=== PATIENT | male | born 1955 | race Caucasian/White ===

== ENCOUNTER 2020-11-21 03:50 | Outpatient (CLI) | payer MEDICARE, OTHER, SELFPAY ==
[2020-11-21 10:42] LABS: Kit/Specimen SENT
[2020-11-21 10:45] LABS: Abs Immature Grans 0.02 10^3/uL (0.0-0.06); Absolute Basophil Count 0.03 10^3/uL (0.0-0.2); Absolute Eosinophil Count 0.13 10^3/uL (0.0-0.7); Absolute Lymphocyte Count 2.45 10^3/uL (1.2-3.4); Absolute Monocyte Count 0.94 10^3/uL (0.1-0.8); Absolute Neutrophil Count 4.93 10^3/uL (1.2-6.7); Basophils % 0.4; Eosinophils % 1.5; HCT 42.5 % (40.0-50.0); HGB 13.9 g/dL (13.5-17.5); Immature Grans % 0.2; Lymphocytes % 28.8; MCH 31.7 pg (27.0-33.0); MCHC 32.7 % (32.0-36.0); MCV 96.8 fL (80-95); MPV 9.3 fL (8.0-11.0); Monocytes % 11.1; Nucleated RBC 0 %; Platelet Count 307 10^3/uL (130-400); RBC 4.39 10^6/uL (4.36-5.78); RDW 18.8 % (11.8-14.1); RDW-SD 62.8 fL
[2020-11-21 10:58] LABS: ALT 27 U/L (16-63); AST 19 U/L (15-37); Albumin 4.1 g/dL (3.4-5.0); Alkaline Phosphatase 82 U/L (46-116); Anion Gap 6.9 mmol/L (3-11); BUN 17 mg/dL (7-18); Bilirubin, Total 0.6 mg/dL (0.2-1.0); CO2 30.1 mmol/L (21.0-32.0); CREATININE 1.3 mg/dL (0.70-1.30); Calcium 9.5 mg/dL (8.5-10.1); Chloride 106 mmol/L (98-107); Estimated GFR 55.75 (mL/min/1.73m2); Glucose 145 mg/dL (74-106); Potassium 4.5 mmol/L (3.5-5.1); Sodium 143 mmol/L (136-145); Total Protein 7.6 g/dL (6.4-8.2)
[2020-11-21 17:07] LABS: CEA 2.7 ng/mL (See Note)
== END 2020-11-21 03:51 | disposition home or self-care (01) ==
LOC: LBO 03:51
PROVIDERS: Visit Provider Internal Medicine Hematology & Oncology
DX: C18.2 Malignant neoplasm of ascending colon (principal)
CPT/HCPCS: 36415; 80053; 82378; 85025

== ENCOUNTER 2020-12-13 21:20 | Outpatient (CLI) | payer MEDICARE, OTHER, SELFPAY ==
[2020-12-13 08:31] LABS: Abs Immature Grans 0.02 10^3/uL (0.0-0.06); Absolute Basophil Count 0.04 10^3/uL (0.0-0.2); Absolute Eosinophil Count 0.19 10^3/uL (0.0-0.7); Absolute Lymphocyte Count 2.11 10^3/uL (1.2-3.4); Absolute Monocyte Count 0.82 10^3/uL (0.1-0.8); Absolute Neutrophil Count 3.38 10^3/uL (1.2-6.7); Basophils % 0.6; Eosinophils % 2.9; HCT 39.2 % (40.0-50.0); HGB 12.9 g/dL (13.5-17.5); Immature Grans % 0.3; Lymphocytes % 32.2; MCH 32.3 pg (27.0-33.0); MCHC 32.9 % (32.0-36.0); MCV 98.2 fL (80-95); MPV 9.5 fL (8.0-11.0); Monocytes % 12.5; Neutrophils % 51.5; Nucleated RBC 0 %; Platelet Count 253 10^3/uL (130-400); RBC 3.99 10^6/uL (4.36-5.78); RDW 20.6 % (11.8-14.1); RDW-SD 70.5 fL; WBC 6.56 10^3/uL (4.4-10.8)
[2020-12-13 08:46] LABS: ALT 24 U/L (16-63); AST 18 U/L (15-37); Albumin 3.7 g/dL (3.4-5.0); Alkaline Phosphatase 71 U/L (46-116); Anion Gap 7.5 mmol/L (3-11); BUN 16 mg/dL (7-18); Bilirubin, Total 0.6 mg/dL (0.2-1.0); CO2 27.5 mmol/L (21.0-32.0); CREATININE 1.4 mg/dL (0.70-1.30); Calcium 8.9 mg/dL (8.5-10.1); Chloride 106 mmol/L (98-107); Estimated GFR 51.18 (mL/min/1.73m2); Glucose 196 mg/dL (74-106); Potassium 4.4 mmol/L (3.5-5.1); Sodium 141 mmol/L (136-145); Total Protein 6.8 g/dL (6.4-8.2)
[2020-12-13 08:49] LABS: Diff Comment Diff Reviewed; Macrocytosis 1+
[2020-12-16 09:37] LABS: CEA <2.0 ng/mL (See Note)
== END 2020-12-13 21:21 | disposition home or self-care (01) ==
LOC: LBO 12-16 21:24
PROVIDERS: Visit Provider Internal Medicine Hematology & Oncology
DX: C18.2 Malignant neoplasm of ascending colon (principal)
CPT/HCPCS: 36415; 80053; 82378; 85025

== ENCOUNTER 2021-01-02 09:15 | Outpatient (CLI) | payer MEDICARE, OTHER, SELFPAY ==
[2021-01-02 11:31] LABS: Abs Immature Grans 0.03 10^3/uL (0.0-0.06); Absolute Basophil Count 0.04 10^3/uL (0.0-0.2); Absolute Eosinophil Count 0.15 10^3/uL (0.0-0.7); Absolute Monocyte Count 0.82 10^3/uL (0.1-0.8); Absolute Neutrophil Count 3.79 10^3/uL (1.2-6.7); Basophils % 0.6; Eosinophils % 2.1; HCT 39.5 % (40.0-50.0); HGB 12.9 g/dL (13.5-17.5); Immature Grans % 0.4; Lymphocytes % 31.3; MCH 32.1 pg (27.0-33.0); MCHC 32.7 % (32.0-36.0); MCV 98.3 fL (80-95); MPV 9.3 fL (8.0-11.0); Monocytes % 11.7; Neutrophils % 53.9; Nucleated RBC 0 %; Platelet Count 259 10^3/uL (130-400); RBC 4.02 10^6/uL (4.36-5.78); RDW 21.2 % (11.8-14.1); RDW-SD 72.7 fL; WBC 7.03 10^3/uL (4.4-10.8)
[2021-01-02 11:43] LABS: ALT 24 U/L (16-63); AST 18 U/L (15-37); Albumin 3.9 g/dL (3.4-5.0); Alkaline Phosphatase 81 U/L (46-116); Anion Gap 7.4 mmol/L (3-11); BUN 18 mg/dL (7-18); Bilirubin, Total 0.9 mg/dL (0.2-1.0); CO2 29.6 mmol/L (21.0-32.0); CREATININE 1.3 mg/dL (0.70-1.30); Calcium 9.1 mg/dL (8.5-10.1); Chloride 105 mmol/L (98-107); Estimated GFR 55.75 (mL/min/1.73m2); Glucose 180 mg/dL (74-106); Potassium 4.3 mmol/L (3.5-5.1); Sodium 142 mmol/L (136-145)
[2021-01-02 11:46] LABS: Anisocytosis 2+; Diff Comment Diff Reviewed; Macrocytosis 1+; Poikilocytes 1+; Polychromasia Present
[2021-01-02 17:25] LABS: CEA <2.0 ng/mL (See Note)
== END 2021-01-02 09:16 | disposition home or self-care (01) ==
LOC: LBO 09:18
PROVIDERS: Visit Provider Internal Medicine Hematology & Oncology
DX: C18.2 Malignant neoplasm of ascending colon (principal)
CPT/HCPCS: 36415; 80053; 82378; 85025

== ENCOUNTER 2021-02-14 17:20 | Outpatient (CLI) | payer MEDICARE, OTHER, SELFPAY ==
[2021-02-14 09:24] LABS: Abs Immature Grans 0.01 10^3/uL (0.0-0.06); Absolute Basophil Count 0.03 10^3/uL (0.0-0.2); Absolute Eosinophil Count 0.23 10^3/uL (0.0-0.7); Absolute Lymphocyte Count 2.12 10^3/uL (1.2-3.4); Absolute Monocyte Count 0.96 10^3/uL (0.1-0.8); Absolute Neutrophil Count 3.45 10^3/uL (1.2-6.7); Basophils % 0.4; Eosinophils % 3.4; HCT 39.7 % (40.0-50.0); HGB 12.7 g/dL (13.5-17.5); Immature Grans % 0.1; Lymphocytes % 31.2; MCH 32.3 pg (27.0-33.0); MPV 9.7 fL (8.0-11.0); Monocytes % 14.1; Neutrophils % 50.8; Nucleated RBC 0 %; Platelet Count 253 10^3/uL (130-400); RBC 3.93 10^6/uL (4.36-5.78); RDW 23.2 % (11.8-14.1); RDW-SD 82.4 fL
[2021-02-14 09:38] LABS: Anisocytosis 1+; Diff Comment Diff Reviewed
[2021-02-14 09:45] LABS: ALT 29 U/L (16-63); AST 17 U/L (15-37); Alkaline Phosphatase 86 U/L (46-116); Anion Gap 8.3 mmol/L (3-11); BUN 20 mg/dL (7-18); Bilirubin, Total 0.5 mg/dL (0.2-1.0); CO2 26.7 mmol/L (21.0-32.0); CREATININE 1.3 mg/dL (0.70-1.30); Calcium 8.9 mg/dL (8.5-10.1); Chloride 108 mmol/L (98-107); Estimated GFR 55.58 (mL/min/1.73m2); Glucose 144 mg/dL (74-106); Potassium 4.6 mmol/L (3.5-5.1); Sodium 143 mmol/L (136-145); Total Protein 7.2 g/dL (6.4-8.2)
[2021-02-14 17:56] LABS: CEA 2.2 ng/mL (See Note)
== END 2021-02-14 17:21 | disposition home or self-care (01) ==
LOC: LBO 17:21
PROVIDERS: Visit Provider Internal Medicine Hematology & Oncology
DX: C18.2 Malignant neoplasm of ascending colon (principal)
CPT/HCPCS: 36415; 80053; 82378; 85025

== ENCOUNTER 2021-03-07 13:05 | Outpatient (CLI) | payer MEDICARE, OTHER, SELFPAY ==
[2021-03-07 13:02] LABS: Kit/Specimen SENT
[2021-03-07 13:04] LABS: Abs Immature Grans 0.03 10^3/uL (0.0-0.06); Absolute Basophil Count 0.03 10^3/uL (0.0-0.2); Absolute Eosinophil Count 0.16 10^3/uL (0.0-0.7); Absolute Lymphocyte Count 2.35 10^3/uL (1.2-3.4); Absolute Monocyte Count 0.93 10^3/uL (0.1-0.8); Absolute Neutrophil Count 4.56 10^3/uL (1.2-6.7); Basophils % 0.4; HCT 38.3 % (40.0-50.0); HGB 12.3 g/dL (13.5-17.5); Immature Grans % 0.4; Lymphocytes % 29.2; MCH 32.4 pg (27.0-33.0); MCHC 32.1 % (32.0-36.0); MCV 100.8 fL (80-95); MPV 9.6 fL (8.0-11.0); Monocytes % 11.5; Neutrophils % 56.5; Nucleated RBC 0 %; Platelet Count 267 10^3/uL (130-400); RDW 23.7 % (11.8-14.1); RDW-SD 85.3 fL; WBC 8.06 10^3/uL (4.4-10.8)
[2021-03-07 13:14] LABS: Anisocytosis 2+; Diff Comment Diff Reviewed
--- OUTSIDE RECORDS SUMMARY | 2021-03-07 13:21 | XMS_ITS | Referral Summary ---
:1955 Author Organization [employer] [facility] Address [address] [place] [address] Care Team Providers Name Role Phone MCKENNA SANON Primary Care Physician Encounter 10/20/19 - 10/20/19 [facility] [address] [address] Discharge Disposition: 01 Home or Self Care Attending Physician: SOLANGE LORD Admitting Physician: SOLANGE LORD Referring Physician: SOLANGE LORD Vital Signs Most recent to oldest [Reference Range]: 1 2 Temperature Oral [35.8-37.3 degC] 36.9 degC (10/20/19 3:52 PM) Heart Rate Monitored [60-100 bpm] 93 bpm 95 bpm (10/20/19 4:45 PM) (10/20/19 4:35 PM) Respiratory Rate [12-20 br/min] 16 br/min 16 br/mi n (10/20/19 4:45 PM) (10/20/19 4:35 PM) Blood Pressure [90-140/60-90 mmHg] 116/57 mmHg 125/9 1 mmHg (10/20/19 4:45 PM) (10/20/19 4:35 PM) Allergies, Adverse Reactions, Alerts Substance Reaction Severity Status morphine Hallucinations Moderate Active Medications aspirin 81 mg oral delayed release tablet 81 mg = 1 tabs, Oral, Daily, 0 Refill(s) Start Date: 10/19/19 Status: OrderedBenicar 20 mg oral tablet 20 mg = 1 tabs, Oral, Daily, # 30 tabs, 0 Refill(s) Start Date: 10/19/19 Status: OrderedCentrum Silver oral tablet 1 tabs, Oral, Daily, # 30 tabs, 0 Refill(s) Start Date: 10/19/19 Status: Orderedcyclobenzaprine 10 mg oral tablet 10 mg = 1 tabs, Oral, TID, PRN, # 30 tabs, 0 Refill(s) Start Date: 10/19/19 Status: Orderedibuprofen 600 mg oral tablet 0 Refill(s) Start Date: 10/16/19 Status: OrderedJardiance 25 mg oral tablet mg = tabs, Oral, qAM, 0 Refill(s) Start Date: 10/19/19 Status: OrderedLipitor 40 mg oral tablet 40 mg = 1 tabs, Oral, Daily, 0 Refill(s) Start Date: 10/19/19 Status: OrderedLortab 7.5/325 oral tablet tabs, Oral, q6hr, LAST DOSE, 0 Refill(s) Start Date: 10/20/19 Status: OrderedProtonix 40 mg oral delayed release tablet 40 mg = 1 tabs, Oral, Daily, 0 Refill(s) Start Date: 10/19/19 Status: OrderedTrulicity Pen 0.75 mg/0.5 mL subcutaneous solution Subcutaneous, qWeek, 0 Refill(s) Start Date: 10/19/19 Status: Ordered Procedures Procedure Date Related Diagnosis Body Site Status Lumbar Epidural Steroid Injection1 10/20/19 Completed C5-C6 interspinalis cervicis Completed C6-C7 SURGERY Completed L2-L3 SURGERY Completed L5-S1 SURGERY Completed LEFT FOOT SURGERY Completed RIGHT KNEE SCOPED/REMOVED MENISCUS2 Completed RIGHT SHOULDER REPAIR3 Compl eted RIGHT WRIST REPAIR Completed 1auto-populated from documented surgical [id number] 2 Social History Social History Type Response Smoking Status Never (less than 100 in life time) entered on: 10/20/19 Functional Status FUNCTIONAL10/20/19 Recent Travel History ID No recent travel TB Symptom Screen ID No symptoms C. diff Symptom/History ID Neither of the above Have you been tested for COVID-19 ID No Hospital Discharge Instructions Patient [id number]/20/2020 15:43:41Caring for Your Back Throughout the Day Caring for Your Back Throughout the Day Take care of your back throughout the day. You will likely have fewer back problems if you do. Try to warm up before you move. Shift positions often. Also do your best to form healthy habits. Warm up for the day Do a few slow, catlike stretches before starting your day. This simple warmup can soften your disks,stretch your back muscles, and help prevent injuries. Shift positions often At work and at home, change positions often. This helps keep your body from getting stiff. Stand up or lean back while you sit. If you can, get up and move every 1/2 hour. Form healthy habits Here are some suggestions: ?? Keep a healthy weight. When you weigh too much, your back is under excess strain. But losing nicole few extra pounds can help a lot. ?? Try not to overeat. Learn about serving sizes. The size of a serving depends on the food and the food group. Many foods list serving sizes on the labels. ?? Handle minor aches with cold and heat. Apply cold the first 24 to 48 hours. Use heat after that. Always place a thin cloth between your skin and the source of cold or heat. ?? Take??medicines as directed. This helps keep pain under control. Always read labels, and call your??healthcare provider??or pharmacist if you have any questions. Walk each day A daily walk keeps your back and thigh muscles stretched and strong. This gives your back better support. Be sure to walk with your spine???s three curves aligned, by keeping your head, hips, and toes connected by a vertical line. ?? 4136-3263 [employer]. [address] [place] [address]. All rights reserved. This information is not intended as a substitute for professional medical care. Always follow your healthcare professional's instructions. Lumbar Epidural Injection: Recovery at HomeLumbar Epidural Injection: Recovery at Home After a lumbar epidural injection, you don???t need to stay in bed when you get home. In fact, it???s best to walk around if you feel up to it. Just be careful about being too active. Even if you feel better right away, avoid activities that may strain your back. And follow up on all treatment with your doctor. What to know about pain relief Keep in mind that some people feel more pain at first. It usually goes away within a few days. You may also have headaches or trouble sleeping, but if these symptoms are severe, you should call your doctor right away.??These should also go away within a few days. In general: ?? An injection to reduce inflammation takes a few days to work, sometimes even up to a week. There may even be more pain at first. ?? An injection to help locate the source of pain may give only brief pain relief. Later, you???ll feel the same as you did before the injection. Tips for recovery Whether you were injected for pain relief or diagnosis, these tips will help you recover: ?? Take walks when you feel up to it. ?? Rest if needed, but get up and move around after sitting for half an hour. ?? Don???t exercise vigorously. ?? Don???t drive the day of the procedure or until your doctor says it???s OK. ?? Return to work or other activities when your doctor says you???re ready. When to call your doctor Call right away if you notice any of the following symptoms: ?? Severe pain or headache ?? Loss of bladder or bowel control ?? Fever or chills ?? Redness or swelling around the injection site ?? [id number] [employer]. [address] [place] [address]. All rights reserved. This information is not intended as a substitute for professional medical care. Always follow your healthcare professional's instructions. Follow Up Care10/18/2019 15:43:41With:SOLANGE LORD Address: [address] [place] [address] Business (1) When:only if neededWith:BETTY MARINO Address:Unknown When:Unknown
--- OUTSIDE RECORDS SUMMARY | 2021-03-07 13:22 | XMS_ITS | Referral Summary ---
:1955 Author Organization [employer] Address [address] [facility] [place] [address] Care Team Providers Name Role Phone MCKENNA SANON Primary Care Physician Encounter 06/13/20 - 06/13/20 [employer] [facility] [address] [facility] [address] Discharge Disposition: H Outpt-Sent Home Attending Physician: MALENA BYNUM Admitting Physician: MALENA BYNUM Referring Physician: MALENA BYNUM Allergies, Adverse Reactions, Alerts Substance Reaction Severity [...] 0 Refill(s) Start Date: 10/19/19 Status: Ordered Results WBC Most recent to oldest [Reference Range]: 1 WBC [3.8-10.6 x10e3/mcL] 8.6 x10e3/mcL (06/13/20 4:31 PM) Hgb Most recent to oldest [Reference Range]: 1 Hgb [13.0-17.3 g/dL] 15.0 g/dL (06/13/20 4:31 PM) Hct Most recent to oldest [Reference Range]: 1 HCT [38.0-52.0 %] 47.3 % (06/13/20 4:31 PM) Platelet Count Most recent to oldest [Reference Range]: 1 Platelet [140-440 x10e3/mcL] 263 x10e3/mcL (06/13/20 4:31 PM) Sodium Lvl Most recent to oldest [Reference Range]: 1 Sodium Lvl [135-145 mmol/L] 141 mmol/L (06/13/20 4:31 PM) Potassium Lvl Most recent to oldest [Reference Range]: 1 Potassium Lvl [3.5-5.3 mmol/L] 4.9 mmol/L (06/13/20 4:31 PM) CO2 Most recent to oldest [Reference Range]: 1 CO2 [22-29 mmol/L] 29 mmol/L (06/13/20 4:31 PM) Chloride Most recent to oldest [Reference Range]: 1 Chloride [98-107 mmol/L] 102 mmol/L (06/13/20 4:31 PM) Anion Gap Most recent to oldest [Reference Range]: 1 AGAP [2-17 mmol/L] 10 mmol/L (06/13/20 4:31 PM) BUN Most recent to oldest [Reference Range]: 1 BUN [8-23 mg/dL] 21 mg/dL (06/13/20 4:31 PM) CREATININE Most recent to oldest [Reference Range]: 1 Creatinine Lvl [0.7-1.3 mg/dL] 1.3 mg/dL (06/13/20 4:31 PM) Calcium Lvl Most recent to oldest [Reference Range]: 1 Calcium Lvl [8.8-10.2 mg/dL] 10.0 mg/dL (06/13/20 4:31 PM) Albumin Lvl Most recent to oldest [Reference Range]: 1 Albumin Lvl [3.5-5.2 g/dL] 4.5 g/dL (06/13/20 4:31 PM) Total Protein Most recent to oldest [Reference Range]: 1 Protein Total [6.4-8.3 g/dL] 6.6 g/dL (06/13/20 4:31 PM) Alk Phos Most recent to oldest [Reference Range]: 1 Alk Phos [40-130 unit/L] 74 unit/L (06/13/20 4:31 PM) AST Most recent to oldest [Reference Range]: 1 AST [0-40 unit/L] 20 unit/L (06/13/20 4:31 PM) ALT Most recent to oldest [Reference Range]: 1 ALT [0-41 unit/L] 22 unit/L (06/13/20 4:31 PM) Bilirubin Total Most recent to oldest [Reference Range]: 1 Bili Total [0.00-1.20 mg/dL] 0.60 mg/dL (06/13/20 4:31 PM) PT Most recent to oldest [Reference Range]: 1 PT [11.6-14.5 seconds] 12.8 seconds (06/13/20 4:31 PM) INR Most recent to oldest [Reference Range]: 1 INR [1.5-3.5] 0.9 *LOW* (06/13/20 4:31 PM) PTT Most recent to oldest [Reference Range]: 1 PTT [23.3-34.5 seconds] 30.0 seconds (06/13/20 4:31 PM) Procedures Procedure Date Related Diagnosis Body Site [...]
--- OUTSIDE RECORDS SUMMARY | 2021-03-07 13:22 | XMS_ITS | Referral Summary ---
:1955 Author Organization [employer] Address [address] [place] [address] Care Team Providers Name Role Phone MCKENNA SANON Primary Care Physician Encounter 12/22/19 - 12/22/19 [employer] [facility] [address] [facility] [place] [address] Discharge Disposition: H Outpt-Sent Home Attending Physician: FREDI ROBERT Admitting Physician: FREDI ROBERT Referring Physician: FREDI ROBERT Allergies, Adverse Reactions, Alerts Substance Reaction Severity [...]
--- OUTSIDE RECORDS SUMMARY | 2021-03-07 13:22 | XMS_ITS | Referral Summary ---
:1955 Author Organization [facility] Address [address] [facility], [place] [address] Care Team Providers Name Role Phone MCKENNA SANON Primary Care Physician Encounter 06/24/20 - 06/24/20 [facility] [address] [facility], [place] [address] Admitting Physician: NATALIYA CALDERA Allergies, Adverse Reactions, Alerts Substance Reaction Severity [...]
--- OUTSIDE RECORDS SUMMARY | 2021-03-07 13:23 | XMS_ITS | Referral Summary ---
:1955 [facility] Address [address] [place] [address] Care Team Providers Name Role Phone JAMILA, A Primary Care Physician Unavailable Encounter 02/21/19 - 02/21/19 [facility] [address] [address] Discharge Disposition: H Outpt-Sent Home Attending Physician: MARTINEZ GU Admitting Physician: MARTINEZ GU Referring Physician: MARTINEZ GU Allergies, Adverse Reactions, Alerts No Known Allergies
--- OUTSIDE RECORDS SUMMARY | 2021-03-07 13:24 | XMS_ITS ---
:1955 Author Care Team Providers Name Role Phone NADIA COLMENARES MD Primary Care Provider [phone] MALENA MAHER MD OTHER [phone] Allergies Code Code System Name Reaction Severity Status Onset 7052 RxNorm Morphine ? ? Active ? Medications Name Status Start Date Stop Date ? ? aspirin 81 mg tablet,delayed release Active ? Not available Take 1 tablet every day by oral route. Benicar 20 mg tablet Active ? Not availab le Take 1 tablet every day by oral route. cyclobenzaprine 10 mg tablet Active ? Not available Take 1 tablet 3 times a day by oral route as needed. Jardiance 25 mg tablet Active ? Not avail able Take 1 tablet every day by oral route. Lipitor 40 mg tablet Active ? Not availab le Take 1 tablet every day by oral route. Macrobid 100 mg capsule Completed ? 06/25/19 21 Take 1 capsule every day by oral route. metformin 1,000 mg tablet Active ? Not av ailable Take 1 tablet twice a day by oral route. Protonix 40 mg tablet,delayed release Active ? Not available Take 1 tablet every day by oral route. Pyridium 100 mg tablet Completed ? 1 Take 2 tablets 3 times a day by oral route. Trulicity 0.75 mg/0.5 mL subcutaneous pen injector Active ? Not available Inject by subcutaneous route. Problems Name Status Onset Date Source ? Type 2 Diabetes Mellitus Active ? ? Dyslipidemia Active ? ? Hypertensive Disorder Active ? ? Left Bundle Branch Block Active ? ? Dyspnea on Exertion Active ? ? Notes: quit tob 20 years ago. Procedures Date Name Performed by ? ? Knee Arthroscopy/surgery Information not available Notes: 1997, 2014 ? Back Surgery Information not avai lable Notes: 2011 & 2012 ? Procedure on Shoulder Information not av ailable Notes: 06/25/2020 Electrocardiogram Main Office [address] [facility] [address] [place] [address] (Work Place) 06/25/2020 US, Echocardiogram, Transthoracic, Infor mation not available Complete, W/ Color Flow Results Lab Results Date Name Specimen Result Interpretation Description Value Range Status Address ? ? Electrocardiogram ? No observation ? ? ? Main recorded. Office: [address] , [place] Past Encounters 06/25/2020 Preoperative Cardiovascular Examination; Left Bundle Branch Block; Hypertensive Disorder; Dyslipidemia [place] MD: [address], [place] [address], Ph. Social History Tobacco Smoking Status Former Smoker (2 packs per a day) Vaccine List None recorded. Plan of Care Reminders Provider Appointments None ? ? recorded. Lab None ? ? recorded. Referral None ? ? recorded. Procedures None ? ? recorded. Surgeries None ? ? recorded. Imaging None ? ? recorded. Vitals Height Weight BMI Blood Pressure 5 ft 9 in 214 lbs 31.6 kg/m2 124/70 mm[Hg]
[2021-03-07 13:25] LABS: ALT 27 U/L (16-63); AST 17 U/L (15-37); Alkaline Phosphatase 71 U/L (46-116); Anion Gap 6.7 mmol/L (3-11); BUN 22 mg/dL (7-18); Bilirubin, Total 0.7 mg/dL (0.2-1.0); CO2 27.3 mmol/L (21.0-32.0); CREATININE 1.2 mg/dL (0.70-1.30); Chloride 106 mmol/L (98-107); Glucose 143 mg/dL (74-106); Potassium 4.1 mmol/L (3.5-5.1); Sodium 140 mmol/L (136-145); Total Protein 7.1 g/dL (6.4-8.2)
[2021-03-07 22:23] LABS: CEA 2.1 ng/mL (See Note)
== END 2021-03-07 13:06 | disposition home or self-care (01) ==
LOC: LBO 13:17
PROVIDERS: Visit Provider Internal Medicine Hematology & Oncology
DX: C18.2 Malignant neoplasm of ascending colon (principal)
CPT/HCPCS: 36415; 80053; 82378; 85025

== ENCOUNTER 2022-02-19 17:11 | Outpatient (REF) | payer MEDICARE, OTHER, SELFPAY ==
[2022-02-19 22:27] LABS: Anion Gap 8.6 mmol/L (3-11); BUN 17 mg/dL (7-18); CO2 27.4 mmol/L (21.0-32.0); CREATININE 1.4 mg/dL (0.70-1.30); Calcium 9.1 mg/dL (8.5-10.1); Calculated LDL 67 mg/dL (<100); Chloride 103 mmol/L (98-107); Cholesterol 131 mg/dL (<200); Estimated GFR 55.78 (mL/min/1.73m2); Glucose 120 mg/dL (74-106); HDL Cholesterol 45 mg/dL (40-60); Potassium 4.5 mmol/L (3.5-5.1); Sodium 139 mmol/L (136-145); Triglyceride 97 mg/dL (<150)
== END 2022-02-19 17:12 | disposition home or self-care (01) ==
LOC: NCHCN 17:11
PROVIDERS: Visit Provider Registered Nurse
DX: I10 Essential (primary) hypertension (principal); Z13.220 Encounter for screening for lipoid disorders
CPT/HCPCS: 80048; 80061

== ENCOUNTER 2024-01-11 21:56 | Outpatient (REF) | payer MEDICARE, OTHER, SELFPAY ==
--- OUTSIDE RECORDS SUMMARY | 2024-01-11 21:58 | XMS_ITS | Referral Summary ---
Author Organization [facility] Address [address] [facility], [facility] [place] [address] Care Team Providers Care Propulsion Engineer Name Role Phone NADIA COLMENARES Primary Care Physician [phone] Encounter 03/04/23 - 03/04/23 [facility] [address] [facility], [facility] [place] [address] Admitting Physician: EMMA MALAGON Allergies, Adverse Reactions, Alerts Substance Reaction Severity Status morphine Itching Hallucinations Severe Active Medications aspirin 81 mg oral delayed release tablet 81 mg = 1 tabs, Oral, qAM, 0 Refill(s) Start Date: 10/19/19 Status: Ordered aspirin 81 mg oral delayed release tablet 81 mg = 1 tabs, Oral, Daily, BLOOD CLOT PREVENTION, # 14 tabs, 0 Refill(s), Pharmacy: [facility], 1 tabs Oral Daily,x14 days,Instr:BLOOD CLOT PREVENTION, 175.3, cm, 07/21/21 9:06:00 EST, Height/Length Measured, 97.5, kg, 07/16/20 6:31... Start Date: 10/13/21 Stop Date: 10/27/21 Status: Ordered Benicar 20 mg oral tablet 20 mg = 1 tabs, Oral, qAM, 0 Refill(s) Start Date: 10/19/19 Status: Ordered Centrum Silver oral tablet 1 tabs, Oral, qAM, 0 Refill(s) Start Date: 10/19/19 Status: Ordered cyclobenzaprine 10 mg oral tablet 10 mg = 1 tabs, Oral, TID, PRN, 0 Refill(s) Start Date: 10/19/19 Status: Ordered elppa CoQ10 50 mg oral capsule 100 mg = 2 caps, Oral, qAM, 0 Refill(s) Start Date: 07/08/20 Status: Ordered esomeprazole 40 mg oral delayed release capsule 40 mg = 1 caps, Oral, BID, PRN, 0 Refill(s), indigestion Start Date: 07/16/21 Status: Ordered Jardiance 25 mg oral tablet 25 mg = 1 tabs, Oral, qAM, 0 Refill(s) Start Date: 10/19/19 Status: Ordered Lipitor 40 mg oral tablet 40 mg = 1 tabs, Oral, qAM, 0 Refill(s) Start Date: 10/19/19 Status: Ordered Lortab 7.5/325 oral tablet tabs, Oral, q6hr, LAST DOSE, 0 Refill(s) Start Date: 10/20/19 Stop Date: 07/08/20 Status: Completed metFORMIN 1,000 mg =, Oral, BID, 0 Refill(s) Start Date: 07/08/20 Status: Ordered Cheraw 325 mg-5 mg oral tablet 1 tabs, Oral, q4hr, PRN, X 7 days, # 20 tabs, 0 Refill(s), 07/28/21 11:19:00 EST, moderate pain (4-7) Start Date: 07/21/21 Stop Date: 07/28/21 Status: Completed Cheraw 325 mg-7.5 mg oral tablet 1-2 tabs, Oral, q4hr, PRN, X 5 days, # 40 tabs, 0 Refill(s), 10/18/21 11:26:00 EDT, Pharmacy: [id number] [place], 1-2 tabs Oral q4hr,x5 days,PRN:severe pain (8-10), severe pain (8-10), 175.3, cm, 07/21/21 9:06:00 EST, Height/Length Measu... Start Date: 10/13/21 Stop Date: 10/18/21 Status: Completed oxyCODONE 5 mg oral tablet 5 mg = 1 tabs, Oral, q4hr, # 15 tabs, 0 Refill(s), 07/21/20 15:17:00 EST Start Date: 07/17/20 Stop Date: 07/21/20 Status: Completed Trulicity Pen 0.75 mg/0.5 mL subcutaneous solution 1.5 mg =, Subcutaneous, qWeek, ON WEDNESDAY, 0 Refill(s) Start Date: 10/19/19 Status: Ordered Tylenol Extra Strength 500 mg oral tablet 500 mg = 1 tabs, Oral, TID, PRN, X 7 days, # 20 tabs, 0 Refill(s), 07/24/20 15:17:00 EST, for pain Start Date: 07/17/20 Stop Date: 07/24/20 Status: Completed Vitamin D3 5000 intl units oral tablet 5,000 units = tabs, Oral, Daily, # 100 tabs, 0 Refill(s) Start Date: 07/08/20 Stop Date: 10/08/21 Status: Completed Results WBC Most recent to oldest [Reference Range]: 1 WBC [3.8-10.6 x10e3/mcL] 6.6 x10e3/mcL (03/04/23 1:05 PM) Hgb Most recent to oldest [Reference Range]: 1 Hgb [13.0-17.3 g/dL] 16.3 g/dL (03/04/23 1:05 PM) Hct Most recent to oldest [Reference Range]: 1 HCT [38.0-52.0 %] 48.8 % (03/04/23 1:05 PM) Platelet Count Most recent to oldest [Reference Range]: 1 Platelet [140-440 x10e3/mcL] 299 x10e3/m cL (03/04/23 1:05 PM) Sodium Lvl Most recent to oldest [Reference Range]: 1 Sodium Lvl [135-145 mmol/L] 138 mmol/L (03/04/23 1:05 PM) Potassium Lvl Most recent to oldest [Reference Range]: 1 Potassium Lvl [3.5-5.3 mmol/L] 5.1 mmol/ L (03/04/23 1:05 PM) CO2 Most recent to oldest [Reference Range]: 1 CO2 [22-29 mmol/L] 27 mmol/L (03/04/23 1:05 PM) Chloride Most recent to oldest [Reference Range]: 1 Chloride [98-107 mmol/L] 101 mmol/L (03/04/23 1:05 PM) Anion Gap Most recent to oldest [Reference Range]: 1 AGAP [2-17 mmol/L] 10 mmol/L (03/04/23 1:05 PM) BUN Most recent to oldest [Reference Range]: 1 BUN [8-23 mg/dL] 20 mg/dL (03/04/23 1:05 PM) CREATININE Most recent to oldest [Reference Range]: 1 Creatinine Lvl [0.7-1.3 mg/dL] 1.2 mg/dL (03/04/23 1:05 PM) Calcium Lvl Most recent to oldest [Reference Range]: 1 Calcium Lvl [8.8-10.2 mg/dL] 10.4 mg/dL *HI* (03/04/23 1:05 PM) Albumin Lvl Most recent to oldest [Reference Range]: 1 Albumin Lvl [3.5-5.2 g/dL] 4.6 g/dL (03/04/23 1:05 PM) Total Protein Most recent to oldest [Reference Range]: 1 Protein Total [6.4-8.3 g/dL] 6.8 g/dL (03/04/23 1:05 PM) Alk Phos Most recent to oldest [Reference Range]: 1 Alk Phos [40-130 unit/L] 91 unit/L (03/04/23 1:05 PM) AST Most recent to oldest [Reference Range]: 1 AST [0-50 unit/L] 19 unit/L (03/04/23 1:05 PM) ALT Most recent to oldest [Reference Range]: 1 ALT [0-50 unit/L] 26 unit/L (03/04/23 1:05 PM) Hgb A1c Most recent to oldest [Reference Range]: 1 Hgb A1c [4.0-6.0 %] 6.5 % *HI* (03/04/23 1:05 PM) Bilirubin Total Most recent to oldest [Reference Range]: 1 Bili Total [0.00-1.20 mg/dL] 0.56 mg/dL (03/04/23 1:05 PM) Chol Most recent to oldest [Reference Range]: 1 Chol [100-200 mg/dL] 115 mg/dL (03/04/23 1:05 PM) HDL Most recent to oldest [Reference Range]: 1 HDL [>=40 mg/dL] 40 mg/dL (03/04/23 1:05 PM) LDL Most recent to oldest [Reference Range]: 1 LDL [0.0-100.0 mg/dL] 57.0 mg/dL (03/04/23 1:05 PM) Trig Most recent to oldest [Reference Range]: 1 Triglycerides [0-149 mg/dL] 90 mg/dL (03/04/23 1:05 PM) Immunizations Given and Recorded Vaccine Date Status Refusal Reason SARS-CoV-2 MODERNA (COVID-19) vaccine 01/16/21 Rec orded SARS-CoV-2 MODERNA (COVID-19) vaccine 09/23/20 Rec orded SARS-CoV-2 MODERNA (COVID-19) vaccine 08/13/20 Rec orded zoster vaccine, inactivated 05/16/20 Recorded influenza virus vaccine, inactivated 03/19/20 Jaime rded influenza virus vaccine, inactivated 04/28/19 Jaime rded influenza virus vaccine, inactivated 03/21/18 Jaime rded Procedures Procedure Date Related Diagnosis Body Site Status Knee Arthroscopy Operative (Left) 1 10/13/21 Completed Wrist Carpectomy (Left) 2 07/21/21 Completed Colectomy Right Laparoscopic SCIP 3 07/16/20 Completed Lumbar Epidural Steroid Injection 4 10/20/19 Completed L5-S1 SURGERY 2015 Completed C6-C7 SURGERY 2012 Completed RIGHT SHOULDER REPAIR 2011 C ompleted Lithotripsy 2009 Completed L2-L3 SURGERY 1983 Completed C5-C6 interspinalis cervicis Completed Colonoscopy Completed LEFT FOOT SURGERY Complet ed RIGHT KNEE SCOPED/REMOVED MENISCUS 6 Completed RIGHT WRIST REPAIR Comple everton 1auto-populated from documented surgical case 2auto-populated from documented surgical case 3auto-populated from documented surgical case 4auto-populated from documented surgical case 5X'S 2 6X'S3 Social History Social History Type Response Smoking Status Former smoker, quit more than 30 days ago; Stopped at age: 42; entered on: 07/16/21
--- OUTSIDE RECORDS SUMMARY | 2024-01-11 21:58 | XMS_ITS | Encounter Summary ---
Author Organization [facility] Address [facility] [place] [address] Care Team Providers Care Sports Apparel Internship Name Role Phone None Primary Care Provider Unavailabl e Encounter Details Date Type Department Care Team (Late st Contact Info) Description 11/22/2020 2:30 PM EDT TH Visit (TeleHealth) Hematology/Oncology at [address] [phone] Nik Killian MD [facility] [place] [address] Danette Oleary APRN [address] [place] [address] DR HEMATOLOGY ONCOLOGY [place], [place] [id number] Malignant neoplasm of ascending colon Social History Tobacco Use Types Packs/Day Years Used Date Smoking Tobacco: Never Smokeless Tobacco: Never Sex and Gender Information Value Date Recorded Sex Assigned at Not on file Gender Identity Not on file Sexual Orientation Not on file documented as of this encounter Progress Notes * Nik Killian MD - 11/22/2020 2:30 PM EDT Subjective: Patient ID: Martínez Toribio is 65 y.o. Problem List: 1. Colon cancer - ascending colon, pT3, pN0, M0, stage IIA A. Presented with abdominal pain Colonoscopy 04/2020 - 1.5 cm ulcerated mass in cecum. Path - Adenocarcinoma. IHC - intact staining for MMR proteins CT c/a/p 06/06/20 - Impression: 1. Nonspecific subcutaneous fat stranding seen in the anterior pelvic region with overlying skin thickening. Recommend correlation for cellulitis. 2. Nonobstructive 1.1 cm right lower pole and punctate left upper pole renal calculi 3. Coronary calcium 4. 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 5. No acute intrathoracic or intra-abdominal pathology. Laparoscopic right hemicolectomy 07/16/20 - Findings: No peritoneal spread identified, no liver metastasis seen. Tumor was found to be out to the serosa optically. Path: Histologic type: Adenocarcinoma Histologic grade: Moderately differentiated Tumor site: Right colon near the cecum Tumor configuration: Invasive Tumor dimensions: 1.2 x 1.2 cm Tumor extension: Tumor closely approximates the serosal surface of the colon Small vessel lymphovascular invasion: Present Large vessel venous invasion: Not identified Perineural invasion: Not identified Tumor ulceration: Present Macroscopic tumor perforation: Absent Tumor budding: Absent Mesorectum status: Not applicable Proximal margin status: Negative; invasive tumor 10 cm from margin Distal margin status: Negative; invasive tumor 13 cm from margin Radial margin/mesenteric margin status: Negative; invasive tumor 8.4 cm from margin Pericolorectal/mesenteric LN status: 0 of 23 lymph nodes positive for carcinoma Extramural tumor depositw: Absent Treatment effect: No prior treatment Additional findings: Tubular adenoma; Hyperplastic polyp MMR testing by immunohistochemistry: Previously performed by professional pathology services Pathologic cancer stage: PT3. pN0 Adjuvant chemotherapy with oral capecitabine started 08/31/20 Cycle 1 - 08/31/20 - 1000 mg/m2 (2000 mg) bid - poorly tolerated due to stomatitis and PPE (blistering of feet) Resumed chemotherapy on 10/14/20 - Dose reduced to 500 mg/m2 (1000 mg) bid, well tolerated Cycle 3 started 11/04/20 , dose increased to 1500 mg bid 2. DM 3. Dyslipidemia 4. LBBB 5. HTN 6. Nephrolithiasis S/p lithotripsy 7. GERD Ryan's esophagus Has annual EGD 8. Spinal stenosis 9. Shingles right face HPI Martínez Toribio is seen for evaluation and continued management of colon cancer. The history is summarized above. He lives in [facility] and but staying in [place], [place] for the summer months.He is seen for f/u and continued adjuvant therapy This is telephone encounter. He says he is not too bad. With the most recent cycle of therapy, hehad a couple of rough days with nausea, abdominal discomfort and diarrhea. These were on 11/17 and11/20. He completed the course of therapy on 11/17. He took phenergan and that helped. He did not need to take immodium. Today, he has had a normal BM. On day 10, he had a sore in his mouth and decreased the dose from 1500 bid to 1000 mg bid and the mouth sores resolved after 4 days. No redness or discomfort the the palms of his hands or soles of his feet. He is eating well and his weight is about the same. Soc Hx: , lives in [place], visiting [place] for the summer Tob - Quit in 2008; priot to that, 2 ppd for 27 years Etoh - 5 to 7 drinks per week On disability due to spinal stenosis. 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 Fam Hx: Father - Mother - Sibs - Children - 3, in good health. The oldest is 38 yo. All are planning to have colooscopies No h/o cancer in the family that he is aware of Review of Systems Constitutional: Negative for activity change, appetite change, fatigue, fever and unexpected weightchange. HENT: Negative. Respiratory: Negative. Cardiovascular: Negative. Gastrointestinal: Negative. Genitourinary: Negative. Musculoskeletal: Negative. Skin: Negative. Neurological: Negative. Hematological: Negative. Psychiatric/Behavioral: Negative. Objective: Physical Exam Vitals reviewed. Constitutional: General: He is not in acute distress. HENT: Head: Normocephalic and atraumatic. Mouth/Throat: Pharynx: Oropharynx is clear. No oropharyngeal exudate. Eyes: General: No scleral icterus. Cardiovascular: Rate and Rhythm: Normal rate and regular rhythm. Abdominal: General: There is no distension. Palpations: There is no mass. Tenderness: There is no abdominal tenderness. There is no guarding. Musculoskeletal: General: No swelling. Lymphadenopathy: Cervical: No cervical adenopathy. Upper Body: Right upper body: No supraclavicular adenopathy. Left upper body: No supraclavicular adenopathy. Skin: General: Skin is warm and dry. Findings: No rash. Neurological: General: No focal deficit present. Mental Status: He is alert. Psychiatric: Mood and Affect: Mood normal. Labs: (11/21/20): WBC/ANC - 8.09/4929, Hgb/Hct - 13.9/42.5, Plts - 307,000. BUN/Cr - 17/1.3. Glucose - 145. Lytes and LFTs o/w unremarkable. Signatera test result 10/07/20: MTM/ml: 0.00 Post-op (pre-chemo) ctc test by signatera on 08/07/20 - negative Recheck 08/22/20 - negative Recheck 10/06/20 - negative CEA: 11/21/20 2.7 10/09/20 2.6 09/11/20 2.5 08/21/20 2.2 07/29/20 1.9 Pre-op 1.8 Assessment and Plan: Martínez Toribio is 65 yo, referred for evaluation and management of colon cancer. He lives in [facility] and is visiting [place] for the summer months. He is seen for f/u and continued adjuvant therapy He was diagnosed with colon cancer at the time of colonoscopy done as part of evaluation for abdominal pain. There was a mass in the cecum, bx if which showed adenocarcinoma, MMR proficient. Staging CT c/a/p was negative for metastatic disease and the CEA was 1.8. On 07/16/20 he underwent a right hemicolectomy. The pathology report is above - moderately differentiated adenocarcinoma, pT3, LN negative (0/23), pN0. Small vessel LVI present, PNI negative. He met with Dr. Georgi Butterfield and was started on adjuvant chemotherapy with oral capecitabine at 1000 mg/m2 bid. The first cycle was poorly tolerated with severe stomatitis and hand foot syndrome. The dose was reduced by 50% and he tolerated that better. The dose was then increased to 1500 mg bidfor cycle 3 which he began on 11/04/20 and completed on 11/17/20. On day 10, he developed mouth sores and decreased the dose to 1000 mg bid with improvement in the sores after about 4 days. On days 14 and 17, he had increased problems with nausea, diarrhea and abdominal discomfort. Phenergan helped with the nausea. He is feeling well now. He is due to start the next cycle of therapy on 11/25. I will have him go ahead at a dose of 1000 mg in AM and 1500 mg in PM. If he develops recurrent problems with stomatitis,he will decrease the does back to 1000 mg bid. We will see him in three weeks. He had his are both fully vaccinated against Covid 19. I provided care to the patient today via telephone call. The total time associated with this visit was 25 minutes. documented in this encounter Plan of Treatment Not on file documented as of this encounter Visit Diagnoses Diagnosis Malignant neoplasm of ascending colon documented in this encounter Care Teams Sports Apparel Internship Relationship Specialty Start Date End Date None None PCP - General 11/08/20 documented as of this encounter
--- OUTSIDE RECORDS SUMMARY | 2024-01-11 21:58 | XMS_ITS | Referral Summary ---
Author Organization [facility] is Address [address] [place] [id number] Care Team Providers Care Bottle Packing Machine Cleaner Name Role Phone TALITA, NADIA ANDRES Primary Care Physician Encounter 11/14/19 - 01/04/20 [facility] [address] [place] [place] [id number] Discharge Disposition: H Outpt-Sent Home Attending Physician: FREDI ROBERT Admitting Physician: FREDI ROBERT Referring Physician: FREDI ROBERT Allergies, Adverse Reactions, Alerts Substance Reaction Severity Status morphine Hallucinations Moderate Active Medications aspirin 81 mg oral delayed release tablet 81 mg = 1 tabs, Oral, Daily, 0 Refill(s) Start Date: 10/19/19 Status: Ordered Benicar 20 mg oral tablet 20 mg = 1 tabs, Oral, Daily, # 30 tabs, 0 Refill(s) Start Date: 10/19/19 Status: Ordered Centrum Silver oral tablet 1 tabs, Oral, Daily, # 30 tabs, 0 Refill(s) Start Date: 10/19/19 Status: Ordered cyclobenzaprine 10 mg oral tablet 10 mg = 1 tabs, Oral, TID, PRN, # 30 tabs, 0 Refill(s) Start Date: 10/19/19 Status: Ordered ibuprofen 600 mg oral tablet 0 Refill(s) Start Date: 10/16/19 Status: Ordered Jardiance 25 mg oral tablet mg = tabs, Oral, qAM, 0 Refill(s) Start Date: 10/19/19 Status: Ordered Lipitor 40 mg oral tablet 40 mg = 1 tabs, Oral, Daily, 0 Refill(s) Start Date: 10/19/19 Status: Ordered Lortab 7.5/325 oral tablet tabs, Oral, q6hr, LAST DOSE, 0 Refill(s) Start Date: 10/20/19 Status: Ordered Protonix 40 mg oral delayed release tablet 40 mg = 1 tabs, Oral, Daily, 0 Refill(s) Start Date: 10/19/19 Status: Ordered Trulicity Pen 0.75 mg/0.5 mL subcutaneous solution Subcutaneous, qWeek, 0 Refill(s) Start Date: 10/19/19 Status: Ordered Procedures Procedure Date Related Diagnosis Body Site Status Lumbar Epidural Steroid Injection 1 10/20/19 Completed C5-C6 interspinalis cervicis Completed C6-C7 SURGERY Completed L2-L3 SURGERY Completed L5-S1 SURGERY Completed LEFT FOOT SURGERY Complet ed RIGHT KNEE SCOPED/REMOVED MENISCUS 2 Completed RIGHT SHOULDER REPAIR 3 C ompleted RIGHT WRIST REPAIR Comple everton 1auto-populated from documented surgical case [id number]'[id number] 2 Social History Social History Type Response Smoking Status Never (less than 100 in lifetime) entered on: 10/20/19
--- OUTSIDE RECORDS SUMMARY | 2024-01-11 21:58 | XMS_ITS | Encounter Summary ---
Author Organization [facility] Address [facility] [place] [address] Care Team Providers Care Outside Parts Sales Name Role Phone None Primary Care Provider Unavailabl e Encounter Details Date Type Department Care Team (Late st Contact Info) Description 12/13/2020 9:00 AM EDT Office Visit Hematology/Oncology at [address] [phone] Nik Killian MD [facility] [place] [address] Malignant neoplasm of ascending colon Social History Tobacco Use Types Packs/Day Years Used Date Smoking Tobacco: Never Smokeless Tobacco: Never Sex and Gender Information Value Date Recorded Sex Assigned at Not on file Gender Identity Not on file Sexual Orientation Not on file documented as of this encounter Last Filed Vital Signs Vital Sign Reading Time Taken Comments Blood Pressure 137/74 12/13/2020 8:43 AM EDT Pulse 76 12/13/2020 8:43 AM EDT Temperature 36.5 ??C (97.7 ??F) 12/13/2020 8:43 AM ED T Respiratory Rate 18 12/13/2020 8:43 AM EDT Oxygen Saturation 98% 12/13/2020 8:43 AM EDT Inhaled Oxygen Concentration - - Weight 95.3 kg (210 lb) 12/13/2020 8:43 AM EDT Height 174.5 cm (5' 8.7) 12/13/2020 8:43 AM EDT Body Mass Index 31.28 12/13/2020 8:43 AM EDT documented in this encounter Progress Notes * Nik Killian MD - 12/13/2020 9:00 AM EDT Subjective: Patient ID: Martínez Toribio is 65 y.o. Problem List: 1. Colon cancer - ascending colon, pT3, pN0, M0, stage IIA A. Presented with abdominal pain Colonoscopy 04/2020 - 1.5 cm ulcerated mass in cecum. Path - Adenocarcinoma. IHC - intact staining for MMR proteins B. CT c/a/p 06/06/20 - Impression: 1. Nonspecific [...] 5. No acute intrathoracic or intra-abdominal pathology. C. Laparoscopic right hemicolectomy 07/16/20 - Findings: No [...] pathology services Pathologic cancer stage: PT3. pN0 D. Adjuvant chemotherapy with oral capecitabine started 08/31/20 Cycle 1 - 08/31/20 - 1000 mg/m2 (2000 mg) bid - poorly tolerated due to stomatitis and PPE (blistering of feet) Resumed chemotherapy on 10/14/20 - Dose reduced to 500 mg/m2 (1000 mg) bid, well tolerated Cycle 3 started 11/04/20 , dose increased to 1500 mg bid Cycle 4 started 11/25/20, 1000 mg in AM and 1500 mg in PM E. Signatera testing x 4 - all negative (see below) 2. DM 3. Dyslipidemia 4. LBBB 5. HTN 6. Nephrolithiasis S/p lithotripsy 7. GERD Ryan's esophagus Has annual EGD 8. Spinal stenosis 9. Shingles right face HPI Mratínez Toribio is seen for evaluation and continued management of colon cancer. The history is summarized above. He lives in [facility] but staying in [place], [place] for the summer months. He is seen for f/u and continued adjuvant therapy He is by himself in clinic today. He says the most recent cycle of capecitabine was difficult. He started by taking 1500 mg in AM and 1000 mg in PM. He had problems with nausea during the day with this. He then changed the schedule to 1000 in AM and 1500 in PM and did better. He says he slept through the nausea. He gain had problems with hand foot syndrome. For two days after the treatment, he had increased diarrhea, 4-5 bouts per day. He has lomotil at home but didn't take it. He made sure to stay hydrated. For nausea he took zofran and phenergan. He has fatigue with phenergan and prefers the zofran. He had HFS beginning on day 9-10. He puts lotion on. No stomatitis. Soc Hx: , lives in [place], visiting [place] for the summer Tob - Quit in 2008; priot to that, 2 ppd for 27 years Etoh - 5 to 7 drinks per week On disability due to spinal stenosis. 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 Fam Hx: Father - Mother - Sibs [...] and Rhythm: Normal rate and regular rhythm. Pulmonary: Effort: No respiratory distress. Abdominal: General: There is no distension. Palpations: There is no mass. Tenderness: There is no abdominal tenderness. There is no guarding. Musculoskeletal: General: No swelling. Lymphadenopathy: Cervical: No cervical adenopathy. Upper Body: Right upper body: No supraclavicular adenopathy. Left upper body: No supraclavicular adenopathy. Skin: General: Skin is warm and dry. Findings: Erythema (soles of feet. Mottling of palms of hands.,) present. No rash. Neurological: General: No focal deficit present. Mental Status: He is alert. Psychiatric: Mood and Affect: Mood normal. Labs:: WBC/ANC - 6., Hgb/Hct - 12.9/39.2, Plts - 253,000. BUN/Cr - 16/1.4. Glucose - 196. Lytes and LFTs o/w unremarkable. Signatera test result 10/07/20: MTM/ml: 0.00 Post-op (pre-chemo) ctc test by signatera on 08/07/20 - negative Recheck 08/22/20 - negative Recheck 10/06/20 - negative Recheck 11/21/20 - negative CEA: 12/13/20 pending 11/21/20 2.7 10/09/20 2.6 09/11/20 2.5 08/21/20 2.2 07/29/20 1.9 Pre-op 1.8 Assessment and Plan: Martínez Toribio is 65 yo, referred for evaluation and management of colon cancer. He lives in [facility] and is visiting [place] for the summer months. He is seen [...] discomfort. Phenergan helped with the nausea. He began cycle 4 on 11/25/20, at 1000 mg in AM and 1500 mg in PM. He did fair with this. He had diarrhea for two days afterward, self limited and he did not take anything for it. He has nausea which he managed by schedule change and had HFS which is improving. He is going to start cycle 5 on 12/06/20 at the same dose, 1000 mg in AM and 1500 mg in PM. If he developsrecurrent problems with stomatitis, or other worsening symptoms, I asked him to hold the doses and let us know. We will see him in three weeks. He had his are both fully vaccinated against Covid 19. documented in this encounter Plan of Treatment Not on file documented as of this encounter Visit Diagnoses Diagnosis Malignant neoplasm of ascending colon documented in this encounter Care Teams Outside Parts Sales Relationship Specialty Start Date End Date None None PCP - General 11/08/20 documented as of this encounter
--- OUTSIDE RECORDS SUMMARY | 2024-01-11 21:58 | XMS_ITS | Referral Summary ---
Author Organization [facility] Address [address], [place] [address] Care Team Providers Care Extra Gang Supervisor Name Role Phone NADIA COLMENARES Primary Care Physician [phone] Encounter 07/06/23 - 07/06/23 [facility] [address] [facility] [place] [address] Admitting Physician: DMITRI CAM Allergies, Adverse Reactions, Alerts Substance Reaction Severity Status morphine Itching Hallucinations Severe Active Medications aspirin 81 mg oral delayed release tablet 81 mg = 1 tabs, Oral, Daily, BLOOD CLOT PREVENTION, # 14 tabs, 0 Refill(s), Pharmacy: [facility], 1 tabs Oral Daily,x14 days,Instr:BLOOD CLOT PREVENTION, 175.3, cm, 07/21/21 9:06:00 EST, Height/Length Measured, 97.5, kg, 07/16/20 6:31:00 EST, Weight Dosing Start Date: 10/13/21 Stop Date: 10/27/21 Status: Ordered aspirin 81 mg oral delayed [...] 0 Refill(s) Start Date: 07/08/20 Status: Ordered [place] 325 mg-5 mg oral tablet 1 tabs, Oral, q4hr, PRN, X 7 days, # 20 tabs, 0 Refill(s), 07/28/21 11:19:00 AM EST, moderate pain (4-7) Start Date: 07/21/21 Stop Date: 07/28/21 Status: Completed [place] 325 mg-7.5 mg oral tablet 1-2 tabs, Oral, q4hr, PRN, X 5 days, # 40 tabs, 0 Refill(s), 10/18/21 11:26:00 AM EDT, Pharmacy: [id number], 1-2 tabs Oral q4hr,x5 days,PRN:severe pain (8-10), severe pain (8-10), 175.3, cm, 07/21/21 9:06:00 EST, Height/Length Measured, 97.5, kg, 07/16/20 6:31:00 EST, Weight Dosing Start Date: 10/13/21 Stop Date: 10/18/21 Status: Completed oxyCODONE 5 mg oral tablet 5 mg = 1 tabs, Oral, q4hr, # 15 tabs, 0 Refill(s), 07/21/20 3:17:00 PM EST Start Date: 07/17/20 Stop Date: 07/21/20 Status: Completed Trulicity Pen 0.75 mg/0.5 mL subcutaneous solution 1.5 mg =, Subcutaneous, qWeek, ON WEDNESDAY, 0 Refill(s) Start Date: 10/19/19 Status: Ordered Tylenol Extra Strength 500 mg oral tablet 500 mg = 1 tabs, Oral, TID, PRN, X 7 days, # 20 tabs, 0 Refill(s), 07/24/20 3:17:00 PM EST, for pain Start Date: 07/17/20 Stop Date: 07/24/20 Status: Completed Vitamin D3 5000 intl units oral tablet 5,000 units = tabs, Oral, Daily, # 100 tabs, 0 Refill(s) Start Date: 07/08/20 Stop Date: 10/08/21 Status: Completed Results Sodium Lvl Most recent to oldest [Reference Range]: 1 Sodium Lvl [135-145 mmol/L] 140 mmol/L (07/06/23 11:08 AM) Potassium Lvl Most recent to oldest [Reference Range]: 1 Potassium Lvl [3.5-5.3 mmol/L] 5.5 mmol/ L *HI* (07/06/23 11:08 AM) CO2 Most recent to oldest [Reference Range]: 1 CO2 [22-29 mmol/L] 27 mmol/L (07/06/23 11:08 AM) Chloride Most recent to oldest [Reference Range]: 1 Chloride [98-107 mmol/L] 104 mmol/L (07/06/23 11:08 AM) Anion Gap Most recent to oldest [Reference Range]: 1 AGAP [2-17 mmol/L] 9 mmol/L (07/06/23 11:08 AM) BUN Most recent to oldest [Reference Range]: 1 BUN [8-23 mg/dL] 20 mg/dL (07/06/23 11:08 AM) CREATININE Most recent to oldest [Reference Range]: 1 Creatinine Lvl [0.7-1.3 mg/dL] 1.1 mg/dL (07/06/23 11:08 AM) Calcium Lvl Most recent to oldest [Reference Range]: 1 Calcium Lvl [8.8-10.2 mg/dL] 10.2 mg/dL (07/06/23 11:08 AM) Albumin Lvl Most recent to oldest [Reference Range]: 1 Albumin Lvl [3.5-5.2 g/dL] 4.4 g/dL (07/06/23 11:08 AM) Total Protein Most recent to oldest [Reference Range]: 1 Protein Total [6.4-8.3 g/dL] 6.5 g/dL (07/06/23 11:08 AM) Alk Phos Most recent to oldest [Reference Range]: 1 Alk Phos [40-130 unit/L] 78 unit/L (07/06/23 11:08 AM) AST Most recent to oldest [Reference Range]: 1 AST [0-50 unit/L] 19 unit/L (07/06/23 11:08 AM) ALT Most recent to oldest [Reference Range]: 1 ALT [0-50 unit/L] 27 unit/L (07/06/23 11:08 AM) Hgb A1c Most recent to oldest [Reference Range]: 1 Hgb A1c [4.0-6.0 %] 6.8 % 1 *HI* (07/06/23 11:08 AM) 1Interpretive Data: HEMOGLOBIN A1C INTERPRETATION: The following arbitrary ranges may be used for interpretation of the results. However, factors suchas duration of diabetes, adherence to therapy, and patient age should also be considered in assessing degree of blood glucose control. Hemoglobin A1C Avg. Blood Sugar 6% 135 mg/dL 7% 170 mg/dL 8% 205 mg/dL 9% 240 mg/dL 10% 275 mg/dL A1C Glucose Control < 6.0 % Normal 6.0 - 6.9 % Abnormal 7.0 - 7.9 % Sub-Optimal Control > 8.0 % Inadequate Control Bilirubin Total Most recent to oldest [Reference Range]: 1 Bili Total [0.00-1.20 mg/dL] 0.30 mg/dL (07/06/23 11:08 AM) Immunizations Given and Recorded Vaccine Date Status [...]
--- OUTSIDE RECORDS SUMMARY | 2024-01-11 21:58 | XMS_ITS | Clinical Summary ---
Author Organization [facility] Address [facility] [place] [address] Care Team Providers Care Card Sorter Name Role Phone None Primary Care Provider Unavailabl e Allergies Active Allergy Reactions Criticality Noted Date Comments Opioids - Morphine Analogues 021 hallucinations Medications Medication Sig Dispensed Refills Start Date End Date Status metFORMIN (GLUCOPHAGE) 1,000 mg Tablet 1,000 mg. 07/08/2020 Active aspirin EC 81 mg Tablet, Delayed Release (E.C.) Daily. 10/19/2019 Active bacillus coagulans-inulin 1 billion-250 cell-mg Capsule 1 caps, Oral, Daily, 0 Refill(s) 07/08/2020 Active CAPEcitabine (Xeloda) 500 mg tablet 07/29/2020 Active cholecalciferol, Vitamin D3, 125 mcg (5,000 unit) Tablet 5,000 units = tabs, Oral, Daily, # 100 tabs, 0 Refill(s) 07/08/2020 Active cyclobenzaprine (Flexeril) 10 mg Tablet Every 8 hours. PRN 10/19/2019 Active Trulicity 0.75 mg/0.5 mL Pen Injector 10/29/2020 Active Jardiance 25 mg Tablet 09/16/2020 Active fluorouraciL (EFUDEX) 5 % Cream 12/25/2019 Active gabapentin (Neurontin) 300 mg Capsule PRN 09/11/2020 Active Benicar 20 mg Tablet 10 mg. 08/27/2020 Acti ve tadalafiL 20 mg Tablet TAKE ONE TABLET BY MOUTH ONE TIME DAILY ONE HOUR PRIOR TO ACTIVITY 06/11/2020 Active ubiquinone, Coenzyme Q10, (Coenzyme Q10) 50 mg Capsule 100 mg. 07/08/2020 Active Social History Tobacco Use Types Packs/Day Years Used Date Smoking Tobacco: Never Smokeless Tobacco: Never Sex and Gender Information Value Date Recorded Sex Assigned at Not on file Gender Identity Not on file Sexual Orientation Not on file Last Filed Vital Signs Vital Sign Reading Time Taken Comments Blood Pressure 116/74 03/07/2021 1:32 PM EDT Pulse 87 03/07/2021 1:32 PM EDT Temperature 36.9 ??C (98.5 ??F) 03/07/2021 1:32 PM ED T Respiratory Rate 20 03/07/2021 1:32 PM EDT Oxygen Saturation 97% 03/07/2021 1:32 PM EDT Inhaled Oxygen Concentration - - Weight 96.3 kg (212 lb 6.4 oz) 03/07/2021 1:32 P M EDT Height 174.5 cm (5' 8.7) 03/07/2021 1:32 PM EDT Body Mass Index 31.64 03/07/2021 1:32 PM EDT Plan of Treatment Health Maintenance Due Date Last Done Comments CT Colonography 1957 Colonoscopy 1957 Colorectal Cancer Screening 1957 FIT DNA 1957 FIT 1957 Sigmoidoscopy (10 year) with FIT yearly 1957 Sigmoidoscopy 1957 Hepatitis C Screening 1975 Lipid Screening 1975 Tdap adult 02/05/1976 Tetanus vaccine 02/05/1976 Diabetes Screening (HgbA1C or Glucose) 1997 Zoster vaccine (1 of 2) 2007 Advance Directive 02/05/2012 Pneumoccocal Vaccine: 65+ (1 of 1 - PCV) 2022 Covid-19 Vaccine (1 - 2022-24 season) 2023 Influenza (Flu) vaccine (1 o f 1 - Influenza standard series) 01/30/2024 Care Teams Card Sorter Relationship Specialty Start Date End Date None None PCP - General 11/08/20
--- OUTSIDE RECORDS SUMMARY | 2024-01-11 21:58 | XMS_ITS | Encounter Summary ---
Author Organization [facility] [place] [address] Care Team Providers Care Personalized Living Manager Nurse Name Role Phone None Primary Care Provider Unavailabl e Encounter Details Date Type Department Care Team (Late st Contact Info) Description 01/31/2021 Notes Only Hematology/Oncology at [address] [phone] Danette Oleary APRN [address] [place] [address] DR HEMATOLOGY ONCOLOGY [place], [place] [id number] Social History Tobacco Use Types Packs/Day Years Used Date Smoking Tobacco: Never Smokeless Tobacco: Never Sex and Gender Information Value Date Recorded Sex Assigned at Not on file Gender Identity Not on file Sexual Orientation Not on file documented as of this encounter Plan of Treatment Not on file documented as of this encounter Visit Diagnoses Not on filedocumented in this encounter Care Teams Personalized Living Manager Nurse Relationship Specialty Start Date End Date None None PCP - General 11/08/20 documented as of this encounter
--- OUTSIDE RECORDS SUMMARY | 2024-01-11 21:58 | XMS_ITS | Encounter Summary ---
Author Organization [facility] Address [facility] [place] [address] Care Team Providers Care Medical Education Coordinator Name Role Phone None Primary Care Provider Renanabl e Encounter Details Date Type Department Care Team (Latest Contact Info) Description 12/13/2020 Unscheduled Encounter Hematology/Oncology at [address] [phone] [facility] DR HEMATOLOGY [place] [address] Malignant neoplasm of ascending colon Social History Tobacco Use Types Packs/Day Years Used Date Smoking Tobacco: Never Smokeless Tobacco: Never Sex and Gender Information Value Date Recorded Sex Assigned at Not on file Gender Identity Not on file Sexual Orientation Not on file documented as of this encounter Progress Notes * Mery Bliss RD - 12/13/2020 3:07 PM EDT [facility] Initial Assessment Patient Name: Martínez Toribio Diagnosis: Colon Cancer, pT3, pN0, M0, stage IIA Seen By: Mery Bliss RD Referred by: Dr. Killian Reason for assessment: Symptom management Assessment: HPI There is no problem list on file for this patient. Estimated body mass index is 31.28 kg/m?? as calculated from the following: Height as of an earlier encounter on 12/13/20: 174.5 cm (5' 8.7). Weight as of an earlier encounter on 12/13/20: 95.3 kg (210 lb). Wt Readings from Last 3 Encounters: 12/13/20 95.3 kg (210 lb) 11/06/20 91.6 kg (202 lb) Patient reports 10 pound gain in past 2 months. Medications: Metformin 1000 mg, lipitor, probiotic, Capecitabine (dose reduced), vitamin D3, flexeril, trulicity, jardiance, gabapentin prn, benicar, protonix, tadalafil, CoQ10 Adjuvant chemotherapy started 08/31/20, finished cycle 4. Labs on 11/21: Ca 9.5, BG 145H, BUN 17, Creat 1.3, Alb 4.1, TBili 0.6, Alk Phos 82, Na 143, K 4.5, AST 19, ALT 27, WBC 8.5 ,H/H 13.9/42.5, Platelet 307, ANC 4.93 Home blood glucose monitorin-150 mg/dl fasting (higher than usual per patient) Nutrition Screen 12/13/2020 Reason for assessment Symptom management Total MST Score - Functional Status 12/13/2020 Nausea Grades Grade 2: Oral intake decreased without significant weight loss, dehydration or malnutrition Diarrhea Grades Grade 1: Increase of < 4 stools/day over baseline, mild increase in ostomy output compared with baseline Patient reports increased diarrhea (4-5 times/day) for two days after treatment. He didn't use Lomotil which he had at home. He was quite nauseous when taking capecitabine for most recent cycle. He took some zofran and phenergan for this. He had mouth sores with previous cycles but not for most recent cycle. Symptoms are worse during 2 weeks of treatment and improve during 1 week off. Food History, Access and Intake 12/13/2020 Patient Reported Diet CCD Who prepares meals? Spouse Breakfast: Bowl of cereal, toast, banana Lunch: 1/2 hamburger (or pesto pasta, bread when nauseous) Dinner: [place] virgie steak and squash casserole last night Beverages: Water ONS: None Avoiding any foods: Eggs, most meat, fish and veggies when nauseous Physical Activity: Limited due to HFS Patient reports he is only able to tolerate starchy, bland foods when nauseous, as well as some fruits. He has had some vomiting with eggs. He believes that intake of starchy foods when he is nauseous is leading to some higher blood glucose levels than usual as well as recent ten pound weight gain. Nutrition Diagnosis 12/13/2020 Problems Involuntary weight gain Etiology (related to) Chemotherapy Signs and Symptoms Nausea Estimated Needs: 2382 kcals (25 kcal/kg) obese 95 grams protein (1g/kg) ~2.3 L fluid Nutrition Intervention: ? Encouraged bland, cold/room temperature foods and small frequent meals with nauseous. Encouraged protein foods that he tolerates (cottage cheese, possibly cold meats, nut butters) with starchy foods and fruits for glycemic control. Discussed timing zofran before consuming a meal. ? Reviewed nutrition therapy for diarrhea. Educational Handouts provided: nausea MNT, diarrhea MNT Monitoring and Evaluation: Will follow up with Mr. Toribio in 3 weeks to re-evaluate. I have provided him with my card and contact information should he have any questions in the meantime. Thank you for this consult. Mery Bliss RD documented in this encounter Plan of Treatment Not on file documented as of this encounter Visit Diagnoses Diagnosis Malignant neoplasm of ascending colon documented in this encounter Care Teams Medical Education Coordinator Relationship Specialty Start Date End Date None None PCP - General 11/08/20 documented as of this encounter
--- OUTSIDE RECORDS SUMMARY | 2024-01-11 21:58 | XMS_ITS | Referral Summary ---
Author Organization [facility] Address [address] [place] [phone] Care Team Providers Care Interior Systems Carpenter Name Role Phone NADIA COLMENARES Primary Care Physician Encounter 03/17/23 - 03/18/[address] [address] [place] Encounter Diagnosis Presence of right artificial knee joint(Final) - Attending Physician: Maurice Bello Admitting Physician: Maurice Bello Allergies, Adverse Reactions, Alerts Substance Reaction Severity Status morphine Itching Hallucinations Severe Active Medications aspirin 81 mg oral delayed release tablet 81 mg = 1 tabs, Oral, Daily, BLOOD CLOT PREVENTION, # 14 tabs, 0 Refill(s), Pharmacy: [facility], 1 tabs Oral Daily,x14 [...] 0 Refill(s) Start Date: 07/08/20 Status: Ordered Peerless 325 mg-5 mg oral tablet 1 tabs, Oral, q4hr, PRN, X 7 days, # 20 tabs, 0 Refill(s), 07/28/21 11:19:00 AM EST, moderate pain (4-7) Start Date: 07/21/21 Stop Date: 07/28/21 Status: Completed Peerless 325 mg-7.5 mg oral tablet 1-2 tabs, Oral, q4hr, PRN, X 5 days, # 40 tabs, 0 Refill(s), 10/18/21 11:26:00 AM EDT, Pharmacy: [id number], 1-2 tabs Oral q4hr,x5 days,PRN:severe pain (8-10), [...] 07/08/20 Stop Date: 10/08/21 Status: Completed Results Hgb Most recent to oldest [Reference Range]: 1 Hgb [13.0-17.3 g/dL] 13.9 g/dL (03/18/23 5:08 AM) Hct Most recent to oldest [Reference Range]: 1 HCT [38.0-52.0 %] 42.4 % (03/18/23 5:08 AM) Sodium Lvl Most recent to oldest [Reference Range]: 1 Sodium Lvl [135-145 mmol/L] 136 mmol/L (03/18/23 5:08 AM) Potassium Lvl Most recent to oldest [Reference Range]: 1 Potassium Lvl [3.5-5.3 mmol/L] 4.6 mmol/ L (03/18/23 5:08 AM) CO2 Most recent to oldest [Reference Range]: 1 CO2 [22-29 mmol/L] 26 mmol/L (03/18/23 5:08 AM) Chloride Most recent to oldest [Reference Range]: 1 Chloride [98-107 mmol/L] 102 mmol/L (03/18/23 5:08 AM) Anion Gap Most recent to oldest [Reference Range]: 1 AGAP [2-17 mmol/L] 9 mmol/L (03/18/23 5:08 AM) BUN Most recent to oldest [Reference Range]: 1 BUN [8-23 mg/dL] 19 mg/dL (03/18/23 5:08 AM) CREATININE Most recent to oldest [Reference Range]: 1 Creatinine Lvl [0.7-1.3 mg/dL] 1.2 mg/dL (03/18/23 5:08 AM) Calcium Lvl Most recent to oldest [Reference Range]: 1 Calcium Lvl [8.8-10.2 mg/dL] 8.9 mg/dL (03/18/23 5:08 AM) Immunizations Given and Recorded Vaccine Date [...] Steroid Injection 4 10/20/19 Completed L5-S1 SURGERY 2016 Completed C6-C7 SURGERY 2012 Completed RIGHT SHOULDER [...]
--- OUTSIDE RECORDS SUMMARY | 2024-01-11 21:58 | XMS_ITS | Encounter Summary ---
Author Organization [facility] Address [facility] [place] [address] Care Team Providers Care Electronic Security Specialist Name Role Phone None Primary Care Provider Unavailabl e Encounter Details Date Type Department Care Team (Late st Contact Info) Description 02/14/2021 10:00 AM EDT Office Visit Hematology/Oncology at [address] [phone] Nik Killian MD [facility] [place] [address] Danette Oleary APRN [address] [place] [address] DR HEMATOLOGY ONCOLOGY [place], [place] [id number] Malignant neoplasm of ascending colon Social History Tobacco Use Types Packs/Day Years Used Date Smoking Tobacco: Never Smokeless Tobacco: Never Sex and Gender Information Value Date Recorded Sex Assigned at Not on file Gender Identity Not on file Sexual Orientation Not on file documented as of this encounter Last Filed Vital Signs Vital Sign Reading Time Taken Comments Blood Pressure 118/69 02/14/2021 9:59 AM EDT Pulse 74 02/14/2021 9:59 AM EDT Temperature 36.8 ??C (98.2 ??F) 02/14/2021 9:59 AM ED T Respiratory Rate 20 02/14/2021 9:59 AM EDT Oxygen Saturation 98% 02/14/2021 9:59 AM EDT Inhaled Oxygen Concentration - - Weight 95.4 kg (210 lb 6.4 oz) 02/14/2021 9:59 A M EDT Height 174.5 cm (5' 8.7) 02/14/2021 9:59 AM EDT Body Mass Index 31.34 02/14/2021 9:59 AM EDT documented in this encounter Progress Notes * Danette Oleary, GLENN - 02/14/2021 10:00 AM EDT Subjective: Patient ID: Martínez Toribio is a 66 y.o. male. There are no problems to display for this patient. HPI Martínez Toribio is 65 yo, referred for evaluation and management of colon cancer. He lives in [facility] and is visiting [place] for the summer months. He is seen for f/u and continued adjuvant therapy ?? He was diagnosed with colon cancer at the time of colonoscopy done as part of evaluation for abdominal pain. There was a mass in the cecum, bx if which showed adenocarcinoma, MMR proficient. ?? Staging CT c/a/p was negative for metastatic disease and the CEA was 1.8. ?? On 07/16/20 he underwent a right hemicolectomy. The pathology report is above - moderately differentiated adenocarcinoma, pT3, LN negative (0/23), pN0. Small vessel LVI present, PNI negative. ?? He met with Dr. Georgi Butterfield and [...] abdominal discomfort. Phenergan helped with the nausea. ?? He began cycle 4 on 11/25/20, at 1000 mg in AM and 1500 mg in PM. ?? He did fair with this. He had [...] We will see him in three weeks. ?? He had his are both fully vaccinated against Covid 19. RVAL HPI 02/14/21 Martínez Toribio is a 65 yo male diagnosed with a cecal mass adenocarcinoma in 07/21. He had a right hemicolectomy 07/16 and lymph nodes were negative. It was recommended he take oral Capecitabine as adjuvant therapy for 8 cycles. (See history as summarized above.) has been spending time in [place] and [place] this summer. He returns to [facility] in [facility] today for follow-up since completing C7/8 Capecitabine. He is currently in his week off, and scheduled to start C8 on 02/17/21. Martínez has an unscheduled clinic visit on 01/30/21 for concerns of upper left jaw pain, right great toenail discoloration and left upper to mid abdominal pain. Today he is feeling good. The right great toe and toenail is less painful this week. However, the nail last week had a denser white spot in the center of the nail which appears larger today. He has been able to walk 3-5 miles a day this week. There is no pus or drainage noted. No other toes or nails are affected. The left upper jaw pain resolved. Martínez reports since the last visit he had a blew out a plug of orange-marcelo mucous from his nose that felt like it passed from his sinus to the back of his throat tohis nose. Since then, the jaw pain resolved. He started taking famotidine twice a day after the abdominal pain started thinking this may be a gastritis or PUD. He says it seems a little better. It is still in the left mid to left upper quadrantabdomen. It does not seem to vary with eating. He has had nausea the past 3-4 days and has been using Ondansetron. Martínez is hoping to return to [facility] in mid-February. He tells me he has a CT scheduled forMarch 19 in [place]. Martínez reports good energy and usually good appetite. He has fluctuating diarrhea with loose bowels. It occurs mostly in the second week of his cycle into the off week. He denies pain, redness, swelling or peeling on his palms or soles of feet. He has not had fever, shortness of breath or cough. We talked about trying to arrange a podiatry consult for the right great toe issue. Martínez is in agreement. His Capecitabine dose was reduced last cycledeom 1000mg am and 1500mg pm to 1000mg bid due to unclear etiology of symptoms. Allergies Allergen Reactions ??? Opioids - Morphine Analogues hallucinations Current Medications ??? metFORMIN (GLUCOPHAGE) 1,000 mg Tablet ??? blood sugar diagnostic strips Strip ??? aspirin EC 81 mg Tablet, Delayed Release (E.C.) ??? atorvastatin (Lipitor) 40 mg Tablet ??? bacillus coagulans-inulin 1 billion-250 cell-mg Capsule ??? CAPEcitabine (Xeloda) 500 mg tablet ??? cholecalciferol, Vitamin D3, 125 mcg (5,000 unit) Tablet ??? cyclobenzaprine (Flexeril) 10 mg Tablet ??? Trulicity 0.75 mg/0.5 mL Pen Injector ??? Jardiance 25 mg Tablet ??? fluorouraciL (EFUDEX) 5 % Cream ??? gabapentin (Neurontin) 300 mg Capsule ??? metFORMIN (GLUCOPHAGE) 1,000 mg Tablet ??? Benicar 20 mg Tablet ??? pantoprazole EC (Protonix) 40 mg Tablet, Delayed Release (E.C.) ??? tadalafiL 20 mg Tablet ??? ubiquinone, Coenzyme Q10, (Coenzyme Q10) 50 mg Capsule Review of Systems Constitutional: Negative for fatigue and fever. HENT: Negative for mouth sores. Respiratory: Negative for cough and shortness of breath. Cardiovascular: Negative for chest pain and palpitations. Gastrointestinal: Positive for abdominal pain. Negative for constipation and diarrhea. LUQ - better than 2 weeks ago Genitourinary: Negative. Musculoskeletal: Negative. Skin: Positive for color change. Negative for wound. Tender white spot in center for great right toe. Neurological: Negative. Psychiatric/Behavioral: Negative. Objective: Physical Exam Vitals reviewed. Constitutional: Appearance: Normal appearance. He is not ill-appearing. HENT: Mouth/Throat: Mouth: Mucous membranes are moist. Pharynx: Oropharynx is clear. No posterior oropharyngeal erythema. Comments: No sore or ulcers seen in upper left gum line or elsewhere. Eyes: Extraocular Movements: Extraocular movements intact. Abdominal: General: Bowel sounds are normal. Palpations: Abdomen is soft. Tenderness: There is abdominal tenderness. Comments: Tenderness to palpation in left mid-upper abdomen. Skin: General: Skin is warm and dry. Findings: Lesion present. Comments: Denser white spot appearing under center of right great toenail. Some erythema surrounding nail. No drainage. Neurological: Mental Status: He is alert and oriented to person, place, and time. Coordination: Coordination normal. Psychiatric: Mood and Affect: Mood normal. Thought Content: Thought content normal. BP 118/69 (Patient Position: Sitting) Pulse 74 Temp 36.8 ??C (98.2 ??F) (Temporal) Resp 20 Ht 174.5 cm (5' 8.7) Wt 95.4 kg (210 lb 6.4 oz) SpO2 98% BMI 31.34 kg/m?? LABS 02/14/21 WBC 6.80; ANC 3.45; H/H 12.7/39.7; PLT 253; BUN 20; CREAT 1.3; BILI 0.5; LFTs normal. CEA 02/14/21 - PENDING 01/02/21 - <2.O Assessment and Plan: Assessment: Martínez Toribio is a 65 yo male diagnosed with a cecal mass adenocarcinoma in 07/21. He had a right hemicolectomy 07/16 and lymph nodes were negative. It was recommended he take oral Capecitabine as adjuvant therapy for 8 cycles. (See history as summarized above.) has been spending time in [place] and [place] this summer. He comes to the [facility] clinic in [facility] todayfor routine follow-up. CBC and CMP reviewed with Martínez today and support ongoing treatment. All symptoms are showing some level of improvement. Unclear etiology of toe issue. Plan: Return to regular dose of Capecitabine for C8. 1000/1500. Continue famotidine 20 mg bid for stomach discomfort. Will help arrange podiatry consult. F/U as scheduled in 2 weeks. Call sooner or seek ER care if condition worsens. documented in this encounter Plan of Treatment Not on file documented as of this encounter Visit Diagnoses Diagnosis Malignant neoplasm of ascending colon documented in this encounter Care Teams Electronic Security Specialist Relationship Specialty Start Date End Date None None PCP - General 11/08/20 documented as of this encounter
--- OUTSIDE RECORDS SUMMARY | 2024-01-11 21:58 | XMS_ITS | Referral Summary ---
Author Organization [facility] Address [address] [place] [address] Care Team Providers Care Graphics Software Engineer Name Role Phone NADIA COLMENARES Primary Care Physician Encounter 10/03/21 - 10/03/21 [facility] [place] [address] [place] [address] Discharge Disposition: H Outpt-Sent Home Attending Physician: BREN YAÑEZ Admitting Physician: BREN YAÑEZ Referring Physician: BREN YAÑEZ Allergies, Adverse Reactions, Alerts Substance Reaction Severity [...] capsule 100 mg = 2 caps, Oral, Daily, # 60 caps, 0 Refill(s) Start Date: 07/08/20 Status: Ordered esomeprazole 40 mg oral delayed release capsule 40 mg = 1 caps, Oral, BID, 0 Refill(s) Start Date: 07/16/21 Status: Ordered Jardiance 25 [...] 0 Refill(s) Start Date: 07/08/20 Status: Ordered [place] 325 mg-5 mg oral tablet 1 tabs, Oral, q4hr, PRN, X 7 days, # 20 tabs, 0 Refill(s), 07/28/21 11:19:00 EST, moderate pain (4-7) Start Date: 07/21/21 Stop Date: 07/28/21 Status: Completed oxyCODONE 5 mg oral tablet [...] 100 tabs, 0 Refill(s) Start Date: 07/08/20 Status: Ordered Immunizations Given and Recorded Vaccine Date Status [...] Procedure Date Related Diagnosis Body Site Status Wrist Carpectomy (Left) 1 07/21/21 Completed Colectomy Right Laparoscopic SCIP 2 07/16/20 Completed Lumbar Epidural Steroid Injection 3 10/20/19 Completed L5-S1 SURGERY 2016 Completed C6-C7 SURGERY 2012 Completed RIGHT SHOULDER REPAIR 2011 C ompleted Lithotripsy 2009 Completed L2-L3 SURGERY 1983 Completed C5-C6 interspinalis cervicis Completed Colonoscopy Completed LEFT FOOT SURGERY Complet ed RIGHT KNEE SCOPED/REMOVED MENISCUS 5 Completed RIGHT WRIST REPAIR Comple everton 1auto-populated from documented surgical case 2auto-populated from documented surgical case 3auto-populated from documented surgical case 4X'S 2 5X'S3 Social History Social History Type Response Smoking Status Former smoker, quit more than 30 days ago; Stopped at age: 42; entered on: 07/16/21
--- OUTSIDE RECORDS SUMMARY | 2024-01-11 21:58 | XMS_ITS | Encounter Summary ---
[place] [address] Care Team Providers Care Intermediate Teacher Name Role Phone Unavailable Primary Care Provider Unavailabl e Encounter Details Date Type Department Care Team (Late st Contact Info) Description 10/25/2020 Abstract [place]ology [place] [phone] Shawna Fields Social History Tobacco Use Types Packs/Day Years Used Date Smoking Tobacco: Never Assessed Sex and Gender Information Value Date Recorded Sex Assigned at Not on file Gender Identity Not on file Sexual Orientation Not on file documented as of this encounter Plan of Treatment Not on file documented as of this encounter Visit Diagnoses Not on filedocumented in this encounter
--- OUTSIDE RECORDS SUMMARY | 2024-01-11 21:58 | XMS_ITS | Encounter Summary ---
Author Organization [facility] Address [facility] [place] [address] Care Team Providers Care Nurse Leader Name Role Phone None Primary Care Provider Unavailabl e Encounter Details Date Type Department Care Team (Late st Contact Info) Description 01/29/2021 Telephone Hematology Oncology at [address] [phone] Sonam Mcclain RN Social History Tobacco Use Types Packs/Day Years Used Date Smoking Tobacco: Never Smokeless Tobacco: Never Sex and Gender Information Value Date Recorded Sex Assigned at Not on file Gender Identity Not on file Sexual Orientation Not on file documented as of this encounter Miscellaneous Notes * Telephone Encounter - Sonam Mcclain RN - 01/29/2021 12:23 PM EDT Called and spoke with Martínez Catarino to let him know to come in tomorrow at 1330 and the WET WHEELER can evaluate it. He is in agreement with plan. * Telephone Encounter - Sonam Mcclain RN - 01/29/2021 11:23 AM EDT Called and spoke with Martínez Catarino who reports his Right Great toe has a dark streak with white center that he noticed 5 days ago, then 2 days ago it started feeling very sore and red at the nailbed. He is wondering if this could be from the capecitabine. He has not hit or subbed his toe on anything. Advised it would be unusual for just one nailbed to have symptoms and PCP could certainly take a look. Pt states he is up here for the summer and does not have anestablished PCP. Wondering if Dr Killian has any insight. He does not see him back in clinic until 02/14/21. Encouraged pt to find alocal PCP in the meantime. ----- Message from Sweta Felix sent at 01/29/2021 10:54 AM EDT ----- Regarding: Painful toe Martínez called with concerns over a painful discolored big toe. He says there is a growth under thenail and wants to know if it is related to his chemo. He would appreciate a call back at [phone]. Thanks Sweta documented in this encounter Plan of Treatment Not on file documented as of this encounter Visit Diagnoses Not on filedocumented in this encounter Care Teams Nurse Leader Relationship Specialty Start Date End Date None None PCP - General 11/08/20 documented as of this encounter
--- OUTSIDE RECORDS SUMMARY | 2024-01-11 21:58 | XMS_ITS | Encounter Summary ---
[place] [address] Care Team Providers Care Freight Weigher Name Role Phone Unavailable Primary Care Provider Unavailabl e Reason for Visit * Reason Comments Specialty Pharmacy Review Capecitabine Encounter Details Date Type Department Care Team (Late st Contact Info) Description 11/06/2020 Specialty [place] [phone] America Weir Social History Tobacco Use Types Packs/Day Years Used Date Smoking Tobacco: Never Smokeless Tobacco: Never Sex and Gender Information Value Date Recorded Sex Assigned at Not on file Gender Identity Not on file Sexual Orientation Not on file documented as of this encounter Progress Notes * America Weir - 11/06/2020 4:06 PM EDT The [facility] has completed a benefits investigation for Martínez Toribio to review their eligibility to fill at [facility]. Per patient's medication list they are prescribed CAPECITABINE and the medication is not able to be filled at the [facility]. documented in this encounter Plan of Treatment Not on file documented as of this encounter Visit Diagnoses Not on filedocumented in this encounter
--- OUTSIDE RECORDS SUMMARY | 2024-01-11 21:58 | XMS_ITS | Referral Summary ---
Author Organization [facility] is Address [address] [place] [address] Care Team Providers Care Chart Computer Name Role Phone NADIA COLMENARES Primary Care Physician Encounter(s) 06/18/22 - 06/18/22 Jose Alejandro Hinkle [address] [place] [address] Attending Physician: SOLANGE LOYD Admitting Physician: SOLANGE LOYD Allergies, Adverse Reactions, Alerts Substance Reaction Severity Status morphine Itching Hallucinations Severe Active Medications aspirin 81 mg oral delayed release tablet 81 mg = 1 tabs, Oral, qAM, 0 Refill(s) Start Date: 10/19/19 Status: Ordered aspirin 81 mg oral delayed release tablet 81 mg = 1 tabs, Oral, Daily, BLOOD CLOT PREVENTION, # 14 tabs, 0 Refill(s), [facility], 1 tabs Oral Daily,x14 days,Instr:BLOOD [...] 0 Refill(s) Start Date: 07/08/20 Status: Ordered De Pere 325 mg-5 mg oral tablet 1 tabs, Oral, q4hr, PRN, X 7 days, # 20 tabs, 0 Refill(s), 07/28/21 11:19:00 EST, moderate pain (4-7) Start Date: 07/21/21 Stop Date: 07/28/21 Status: Completed De Pere 325 mg-7.5 mg oral tablet 1-2 tabs, Oral, q4hr, PRN, X 5 days, # 40 tabs, 0 Refill(s), 10/18/21 11:26:00 EDT, Pharmacy: [id number] Date: 07/08/20 Stop Date: 10/08/21 Status: Completed Immunizations Given and Recorded Vaccine Date Status [...] Completed L5-S1 SURGERY 2016 Completed C6-C7 SURGERY 2013 Completed RIGHT SHOULDER REPAIR 2011 C ompleted [...]
--- OUTSIDE RECORDS SUMMARY | 2024-01-11 21:58 | XMS_ITS | Encounter Summary ---
Author Organization [facility] [place] [address] Care Team Providers Care Sporting Goods Salesperson Name Role Phone None Primary Care Provider Unavailabl e Encounter Details Date Type Department Care Team (Late st Contact Info) Description 01/30/2021 1:30 PM EDT Office Visit Hematology/Oncology at [address] [phone] Danette Oleary APRN [address] [place] [address] DR HEMATOLOGY ONCOLOGY [place], [place] [id number] Malignant neoplasm of ascending colon Social History Tobacco Use Types Packs/Day Years Used Date Smoking Tobacco: Never Smokeless Tobacco: Never Sex and Gender Information Value Date Recorded Sex Assigned at Not on file Gender Identity Not on file Sexual Orientation Not on file documented as of this encounter Last Filed Vital Signs Vital Sign Reading Time Taken Comments Blood Pressure 129/77 01/30/2021 1:52 PM EDT Pulse 87 01/30/2021 1:52 PM EDT Temperature 36.7 ??C (98.1 ??F) 01/30/2021 1:52 PM ED T Respiratory Rate 20 01/30/2021 1:52 PM EDT Oxygen Saturation 99% 01/30/2021 1:52 PM EDT Inhaled Oxygen Concentration - - Weight 94.1 kg (207 lb 6.4 oz) 01/30/2021 1:52 P M EDT Height 174.5 cm (5' 8.7) 01/30/2021 1:52 PM EDT Body Mass Index 30.89 01/30/2021 1:52 PM EDT documented in this encounter Patient Instructions * Patient Instructions* Matarazzo, Danette A, DIRECTOR OF STUDENT AID - 01/30/2021 1:30 PM EDT Here are some things we talked about today: Take just 2 Xeolda pills tonight and I will suzy with Dr. Killian in the morning about your symptoms. Take 20 mg of Pepcid twice a day. Pepcid is always known as famotidine. Soak foot in epsom salt twice a day. If the toe gets worse please call. Tylenol every 6 hours. documented in this encounter Progress Notes * Danette Oleary APRN - 01/30/2021 1:30 PM EDT Subjective: Patient ID: Martínez Toribio is a 65 y.o. male. There are no problems to display for this patient. HPI Martínez Toribio is 65 yo, referred for evaluation and management of colon cancer. He lives in [facility] [place] and is visiting [place] for the summer months. He is seen [...] fully vaccinated against Covid 19. RVAL HPI 01/30/21 Martínez Toribio is a 65 yo male diagnosed with a cecal mass adenocarcinoma in 07/21. He had a right hemicolectomy 07/16 and lymph nodes were negative. It was recommended he take oral Capecitabine as adjuvant therapy for 8 cycles. (See history as summarized above.) has been spending time in [place] and [place] this summer. He comes to [facility] today[facility] an unscheduled visit for some concerning symptoms. Martínez began C7 Capecitabine on 01/27/21 at a dose of 1000mg am and 1500mg pm. He has had dose adjustments previously due to toxicities while taking 1500mg bid. He saw his oncologist in [place], Dr. Carbajal, after C6, and has since returned to [place]. Martínez says toxicities for him seem to occur in the off-week. Today Martínez is concerned about 3 things. He has a pain/pressure under his right great toenail andhe sees a white spot in the nail center that is new. He says it seems worse with walking. He also has a new burning sensation in his jaw line on the upper right. He denies mouth sores or thrush. Third, he has a tender area in his left mid/upper-abdomen. He denies nausea or vomiting. He denies constipation or diarrhea. He says this is usually worse after eating. He has not noticed any drainage or pus near the right great toe nail. He received a COVID booster recently but I do not know the exact date. He has not been soaking his feet. He has not been having fevers or chills. He has been able to eat fairly well. He denies shortness of breath, chest pain or cough. He is not having numbness or tingling. Allergies Allergen Reactions ??? Opioids - Morphine Analogues hallucinations Current Medications ??? metFORMIN (GLUCOPHAGE) 1,000 mg Tablet ??? blood sugar diagnostic strips Strip ??? aspirin EC 81 mg Tablet, Delayed Release (E.C.) ??? atorvastatin (Lipitor) 40 mg Tablet ??? CAPEcitabine (Xeloda) 500 mg tablet ??? cholecalciferol, Vitamin D3, 125 mcg (5,000 unit) Tablet ??? Trulicity 0.75 mg/0.5 mL Pen Injector ??? Jardiance 25 mg Tablet ??? fluorouraciL (EFUDEX) 5 % Cream ??? metFORMIN (GLUCOPHAGE) 1,000 mg Tablet ??? Benicar 20 mg Tablet ??? pantoprazole EC (Protonix) 40 mg Tablet, Delayed Release (E.C.) ??? ubiquinone, Coenzyme Q10, (Coenzyme Q10) 50 mg Capsule ??? bacillus coagulans-inulin 1 billion-250 cell-mg Capsule ??? cyclobenzaprine (Flexeril) 10 mg Tablet ??? gabapentin (Neurontin) 300 mg Capsule ??? tadalafiL 20 mg Tablet Review of Systems Constitutional: Negative for fatigue and fever. HENT: Negative for mouth sores. Burning in right upper jaw. Respiratory: Negative for cough and shortness of breath. Cardiovascular: Negative for chest pain and palpitations. Gastrointestinal: Positive for abdominal pain. Negative for constipation and diarrhea. LUQ Genitourinary: Negative. Musculoskeletal: Negative. Skin: Positive for wound. Painful white spot under right great toenail. Neurological: Negative. Psychiatric/Behavioral: Negative. Objective: Physical Exam Vitals reviewed. Constitutional: Appearance: Normal appearance. He is not ill-appearing. HENT: Mouth/Throat: Mouth: Mucous membranes are moist. Pharynx: Oropharynx is clear. No posterior oropharyngeal erythema. Comments: No sore or ulcers seen in upper right gum line or elsewhere. Eyes: Extraocular Movements: [...] normal. Thought Content: Thought content normal. BP 129/77 (Patient Position: Sitting) Pulse 87 Temp 36.7 ??C (98.1 ??F) (Temporal) Resp 20 Ht 174.5 cm (5' 8.7) Wt 94.1 kg (207 lb 6.4 oz) SpO2 99% BMI 30.89 kg/m?? No labs - unscheduled visit Assessment and Plan: Assessment: Martínez Toribio is a 65 yo male diagnosed with a cecal mass adenocarcinoma in 07/21. He had a right hemicolectomy 07/16 and lymph nodes were negative. It was recommended he take oral Capecitabine as adjuvant therapy for 8 cycles. (See history as summarized above.) has been spending time in [place] and [place] this summer. He comes to the [facility] in [facility] todayas an unscheduled visit for some concerning symptoms. It is possible these symptoms are related to the Capecitabine. Martínez may be developing a mucositis, or an abscess under his toe. Abdominal tenderness may be related to a gastritis or ulcer. Plan: Discussed dose reduction of Capecitabine with Dr. Killian. For remainder of C7, he will take 1000mg bid Soak right foot iin epsom salts and elevate. Trial of famotidine 20 mg bid for stomach discomfort. F/U as scheduled in 2 weeks. Call sooner or seek ER care if condition worsens. documented in this encounter Plan of Treatment Not on file documented as of this encounter Visit Diagnoses Diagnosis Malignant neoplasm of ascending colon documented in this encounter Care Teams Sporting Goods Salesperson Relationship Specialty Start Date End Date None None PCP - General 11/08/20 documented as of this encounter
--- OUTSIDE RECORDS SUMMARY | 2024-01-11 21:58 | XMS_ITS | Referral Summary ---
Author Organization [facility] [place] Address [address] [place] [id number] Care Team Providers Care Sound Technician Name Role Phone NADIA COLMENARES Primary Care Physician Encounter 10/13/21 - 10/13/21 [facility] [address] [address] Encounter Diagnosis Complex tear of medial meniscus of left knee(Discharge Diagnosis) - 10/13/21 Discharge Disposition: H Outpt-Sent Home Attending Physician: TOM LYNNE Admitting Physician: TOM LYNNE Referring Physician: TOM LYNNE Vital Signs Most recent to oldest [Reference Range]: 1 2 Temperature Oral [35.8-37.3 degC] 36.4 d egC (10/13/21 12:29 PM) 36.8 degC (10/13/21 10:38 AM) Heart Rate Monitored [60-100 bpm] 77 bpm (10/13/21 12:59 PM) 78 bpm (10/13/21 12:49 PM) Respiratory Rate [12-20 br/min] 14 br/mi n (10/13/21 12:59 PM) 14 br/min (10/13/21 12:49 PM) Blood Pressure [90-140/60-90 mmHg] 121/7 8mmHg (10/13/21 12:59 PM) 126/81mmHg (10/13/21 12:49 PM) Allergies, Adverse Reactions, Alerts Substance Reaction Severity Status morphine Itching Hallucinations Severe Active Medications aspirin 81 mg oral delayed release tablet 81 mg = 1 tabs, Oral, qAM, 0 Refill(s) Start Date: 10/19/19 Status: Ordered aspirin 81 mg oral delayed release tablet 81 mg = 1 tabs, Oral, Daily, BLOOD CLOT PREVENTION, # 14 tabs, 0 Refill(s), Pharmacy: [facility], 1 tabs Oral Daily,x14 [...] 0 Refill(s) Start Date: 07/08/20 Status: Ordered Miami 325 mg-5 mg oral tablet 1 tabs, Oral, q4hr, PRN, X 7 days, # 20 tabs, 0 Refill(s), 07/28/21 11:19:00 EST, moderate pain (4-7) Start Date: 07/21/21 Stop Date: 07/28/21 Status: Completed Miami 325 mg-7.5 mg oral tablet 1-2 tabs, Oral, q4hr, PRN, X 5 days, # 40 tabs, 0 Refill(s), 10/18/21 11:26:00 EDT, Pharmacy: [id number] [place], 1-2 tabs Oral q4hr,x5 days,PRN:severe pain (8-10), severe pain (8-10), 175.3, cm, 07/21/21 9:06:00 EST, Height/Length Measu... Start Date: 10/13/21 Stop Date: 10/18/21 Status: Ordered oxyCODONE 5 mg oral tablet 5 mg [...] inactivated 05/16/20 Recorded influenza virus vaccine, inactivated 10/20/20 Jaime rded influenza virus vaccine, inactivated 04/28/19 [...] Stopped at age: 42; entered on: 07/16/21 Functional Status FUNCTIONAL 10/08/21 Recent Travel History ID No recent trave l Close Contact with COVID-19 ID No TB Symptom Screen ID No symptoms Last 14 days COVID-19 ID No Last 90 days COVID-19 ID No COGNITIVE 10/13/21 Orientation Assessment Oriented x 4 Hospital Discharge Instructions Patient Education 10/08/2021 13:03:45 Knee arthroscopy home instructions (CUSTOM) HOME CARE INSTRUCTIONS KNEE ARTHROSCOPY Yola Lynne Jr., MD 1. Day of Surgery ??? Instructions Immediate Post-op: ?? DIET: To minimize nausea if you had general anesthesia start with clear liquids (Coke, Pepsi, 7-Up, Gingerale, coffee, tea, water, or apple juice). If tolerated, advance to soup, crackers, toast and Jell-O. When these are tolerated, advance to a regular diet. Make sure to drink plenty of liquids. ?? Ice pack to knee every one to two hours while awake for thirty minutes to control pain and swelling. ?? Pain medication as needed every 4-6 hours. It is helpful to take pain medication approximately one-half hour prior to exercise session. ?? Make sure that you have a Physical Therapy post-operative appointment preferably 5-7 days after surgery. ?? Use crutches as directed by therapist prior to leaving hospital. 2. First Post ??? Operative Day: ?? Continue ice pack every one to two hours while awake, or at least thirty minutes prior to and after exercise session. ?? Pain medication as needed. ?? Exercise should be done to the best of your ability. Try to accomplish a little more each time you do them. ?? You may remove your bandage from the surgical area and shower this evening. Apply gauze to thesewounds. DO NOT remove steri-strips from incision sites, these keep incisions closed and the stitches in place. ?? You will need to keep your incision dry when taking a shower. Do this for about 14 days from surgery or until op site is completely scabbed over and sutures are removed. You need to cover your incisions with a waterproof bandage (these can be purchased at your local pharmacy) when taking a shower. * Make sure you place a 2 x 2 gauze on the incision before placing the waterproof bandage so the bandage is not directly on the incision and does not pull off the steri-strips when removing the bandage. ?? Keep the incisions covered with a band-aid after the shower. 3. Second Post ??? Operative Day Until Return Visit: ?? Continue ice pack as needed. ?? Continue daily shower/band-aid routine. ?? Continue exercises. Call your physical therapist if you have any questions about the appropriateexercises to be performing. ?? Unless otherwise noted, you can bear as much weight on the affected leg as you can tolerate. Most patients use crutches 3 to 5 days. The amount of pain you experience should be your guide for discontinuing crutch use. ?? If there is no brace on your leg, you may bend the knee as tolerated. ?? If you have a brace or a splint on your leg, this must be worn for all walking activities. The brace may be removed for showering. It may also be removed for short periods of time while relaxing (while watching television, reading, etc.) as long as the leg is well supported. For Return Appointments: 4. The day after surgery, call for your post-operative appointment with Dr. Lynne to be scheduled 10 to14 days following your surgery. 5. If you have any problems or questions please call our office at and ask for Dolores during office hours 8:00 ??? 5:00. If you have a problem after hours, call and the answering service will contact Dr. Lynne or the county coroner physician. PROBLEMS TO REPORT ?? Fever greater than 100.5??F or 38??C ?? Incision very red, swollen, shows draining pus, red streaks, or feels hot ?? Inability to urinate 8 hours after surgery (a rare effect of the anesthetic and medications given to you). 6. PAIN MEDICATIONS: This will be prescribed for you post-operatively. Any pain medication can produce nausea and vomiting, especially when taken on an empty stomach. Additionally, the anesthetic from the time of surgery can do the same. It is best to use the pain medication with some food in the stomach for the first few days. In general, ice and elevation are much more useful than pain medication for surgical pain. If you are having too much pain for your comfort the first thing to try is more elevation and more ice. Try to minimize the amount of pain medication you actually use. Any activity that requires precise thinking and accuracy must be avoided for the first twelve hours after surgery and while taking pain medication, which includes operating machinery and/or driving a vehicle. DO NOT take Tylenol with Percocet and the Vicodin. Colace 100mg (over the counter) 1 tablet every evening as needed for constipation tablets every hours as needed for pain tablets every hours as needed for pain tablets every hours as needed for pain ?? DO NOT DRIVE OR USE HEAVY MACHINERY WHILE TAKING THIS MEDICATION. ?? DO NOT DRINK ALCOHOL WHILE TAKING THIS MEDICATION. ?? DO NOT TAKE ADDITIONAL TYLENOL WITH THIS MEDICATION. ?? YOU MAY ALSO TAKE IBUPROFEN 600-800MG EVERY 4-6 HOURS ALONG WITH THE PAIN MEDICATION. YOU SHOULDALTERNATE THE PAIN MEDICATION AND THE IBUPROFEN SO THAT YOU ARE GETTING SOMETHING EVERY 2-3 HOURS BUT SPACING EACH OF THE MEDICATION OUT EVERY 4-6 HOURS 7. ACTIVITY: ?? Elevate the affected knee with two or three pillows under the ankle as needed. Discontinue elevation when comfortable. ?? Ice should be used for thirty minutes every 1-2 hours to control pain and swelling. Apply additionally as needed, especially after exercises, for the first two to three weeks. Longer duration of cold therapy is very helpful the first few days. ?? Use crutches for walking until you can walk without a limp. There are no restrictions on ambulation. ?? Full weight bearing is to begin immediately as tolerated after surgery. Knee arthroscopy rehab protocol (CUSTOM) Rehabilitation Following Knee Arthroscopy PHASE I: MAXIMUM PROTECTION PHASE (Weeks 1-4) Goals: Reduce inflammation/effusion Allow early healing Full passive knee extension Gradually increase knee flexion Restore quadriceps voluntary activation Stage 1: Immediate post-surgery days 1 through 10 ?? Ice, compression, elevation ?? Compression wrap dressing ?? Crutches as needed ?? ROM (passive 0-90) to tolerance ?? Patellar mobilizations ?? Stretch hamstrings, calf, hip flexors ?? Strengthening exercises (neuro-muscular electrical stimulation to quads): ?? Quad sets ?? SLR flexion ?? Hip Abd/Adduction ?? Knee extension 90-40 degrees ?? Mini Squats 0-50/60 degrees ?? Avoid active resisted knee flexion Stage 2: Weeks 2 through 4 ?? Discontinue crutches when able ?? Continue use of ice and compression ?? Continue compression wrap ?? ROM guidelines ?? Gradually increase PROM as tolerated ?? Week 2: 0-125 degrees ?? Week 3: 0-135 degrees ?? Week 4: 0-145 degrees *Discontinue crutches when safe and proper gait (usually during week 1-2) ?? Continue PROM exercises and stretching ?? Strengthening exercises (see attached sheet Phase I exercises) ?? SLR (all 4 planes) ?? Knee extension 90-0 degrees ?? CKC mini-squats 0-45 degrees ?? CKC wall squats 0-60 degrees ?? Initiate CKC exercises ?? Lateral and front step overs ?? Lateral lunges ?? Step downs (lateral) ?? Step downs (front) ?? Bicycle ?? Pool exercises (once incision is closed) PHASE II: INTEMEDIATE PHASE (Weeks 4-6) Goals: Full PROM Minimal to no swelling/inflammation Restore quadriceps strength Gradually increase functional activities ?? Continue use of ice and compression as needed ?? Continue ROM and stretching to maintain 0-135 degrees ?? Progress strengthening exercises ?? Leg press 70-0 degrees ?? Knee extension 90-40 degrees ?? Hip Abd/Adduction ?? Wall squats 0-70 degrees ?? Vertical squats 0-60 degrees ?? Lateral step-ups ?? Front and lateral lunges ?? Hamstring curls ?? Balance/proprioception training ?? Biodex stability ?? Squats rocker board ?? Cup walking (step overs) ?? Standing on foam single leg ?? Bicycle (if ROM permits) ?? Pool program (may begin running in pool) ?? Elliptical * May be able to begin running if cleared by physician or medical team PHASE III: ADVANCED ACTIVITY PHASE (Weeks 6-8) Goals: Improve strength and endurance Maintain full ROM Gradually increase applied stress Week 6 ?? Continue all strengthening exercises listed above (Phase II and III activities) see attached sheet ?? May initiate stair stepper if appropriate ?? Treadmill walk/run program Week 7 ?? Continue strengthening and stretching program PHASE IV: RETURN TO ACTIVITY PHASE (Week 8 and beyond) Goals: Improve strength and endurance Prepare for unrestricted activities Criteria to progress to Phase IV ?? Full non-painful ROM ?? No pain or tenderness ?? Satisfactory clinical exam ?? Satisfactory isokinetic test Exercises ?? Continue and progress all strengthening exercises and stretching drills ?? Deep squatting permitted at 4 months ?? Initiate straight line runnin months ?? Initiate pivoting and cuttin months ?? Initiate agility trainin months ?? Gradually return to sports: 6 months OUT PATIENT POST OP TUNG GENERAL (CUSTOM) Out Patient Post Operative Instructions General Information: - You may experience lightheadedness, forgetfulness, dizziness, sleepiness, headache, nausea, sore throat, or muscular pains following surgery - For any emergencies call 911 -Your reflexes will be dimished after receiving anesthetic drugs Do not operate a vechicle or heavy machinery for 24 hours Do not drink any alcoholic beverages or smoke for 24 hours Avoid making any important decisions for 24 hours Do not stay alone for the next 24 hours Diet/Fluids -Begin with clear liquids, then progress to your regular diet if no nausea -Howard and spicy foods are not advised Activity -You are advised to go directly home from the hospital and restrict your activites for the rest of the day Medications: -Follow your Discharge Medication sheet, as instructed -If ordered, begin any newly prescribed medications. Discontinue use if: nausea, vomiting, itching or rash develops and call your doctor -If you develop a fever (over 101*), chills, active bleeding, excessive swelling, or nausea or vomiting past the 24hr period call your doctor. Follow up Care: Call the office if you don't already have an appt scheduled. Treating Meniscus Problems Treating Meniscus Problems The type of surgery you have depends on the nature of your tear, its size, and location. Your surgeon may use arthroscopy. This method involves putting a tiny camera inside your knee, so that your??healthcare provider??can clearly see your joint. Arthroscopy requires only small incisions (cuts). You can usually go home the same day as surgery. During surgery, you may have: ??Local anesthesia. Your??healthcare provider??numbs your knee with medicine.?A regional block. Your body is numbed from the waist down. ??General anesthesia. Your??healthcare provider??gives you drugs to put??you into a deep sleep so you do not??feel pain. Pre-op checklist ??Don't eat or drink 10 hours before surgery. ??Arrange for someone to drive you home after surgery. ??Tell your??healthcare provider??if you take any medicine, supplements, or herbal remedies. ? Repair For certain tears, your surgeon will try to repair the meniscus. He or she will sew the torn edges so they can heal properly. Or your surgeon will use special fasteners to repair damage. In some cases, repairs may require another incision at the back or side of your knee. Removal In most cases, your surgeon will remove the damaged part of your meniscus. The meniscus won't completely grow back, so your??surgeon will??remove as little tissue as possible. Other tissue, called??the articular cartilage, will take over the role as shock absorber for your knee joint. After surgery You'll spend some time in the recovery area. You can go home when you've recovered from the anesthesia. Your knee will be bandaged. You may have stitches, steri-strips, or mireya. You may need crutches to keep weight off the knee and may have a splint for support. ?? [id number] [employer]. All rights reserved. This information is not intended as a substitute for professional medical care. Always follow your healthcare professional's instructions. Follow Up Care 10/08/2021 13:03:45 With:YOLA LYNNE Address: [address] [place] [address] Business (1) When:Within 2 Week(s) Comments:Call Dinorah [phone] for appointment day and time. With:NADIA COLMENARES Address: [address] [place] [address] Business (1) When:Unknown
--- OUTSIDE RECORDS SUMMARY | 2024-01-11 21:58 | XMS_ITS | Encounter Summary ---
Author Organization [facility] Address [facility] [place] [address] Care Team Providers Care Cotton Agent Name Role Phone None Primary Care Provider Unavailabl e Encounter Details Date Type Department Care Team (Late st Contact Info) Description 03/07/2021 1:30 PM EDT Office Visit Hematology/Oncology at [address] [phone] Nik Killian MD [facility] [place] [address] Danette Oleary APRN [address] [place] [address] DR HEMATOLOGY ONCOLOGY [place], [place] [id number] Malignant neoplasm of ascending colon Social History [...] Mass Index 31.64 03/07/2021 1:32 PM EDT documented in this encounter Progress Notes * Danette Oleary, SPECIAL SKILLS OFFICER - 03/07/2021 1:30 PM EDT Subjective: Patient ID: Martínez Toribio is a 66 y.o. male. There are no problems to display for this patient. HPI Martínez Toribio is 65 yo, referred for evaluation and management of colon cancer. He lives in [place] and is visiting [place] for the summer months. He is seen [...] fully vaccinated against Covid 19. RVAL HPI 03/07/21 Martínez Toribio is a 65 yo male diagnosed with a cecal mass adenocarcinoma in 07/21. He had a right hemicolectomy 07/16/20 and lymph nodes were negative. It was recommended he take oral Capecitabine as adjuvant therapy for 8 cycles. (See history as summarized above.) has been spending time in [place] and [place] this summer. [facility] today for follow-up since completing C8 Capecitabine which was begun 02/17/21 1000mg am/1500mg pm. Martínez is accompanied by his Annie today. He is feeling well. He does get fatigued easily, but is able to do what he wants to do. He did havesome diarrhea for about the last 3-4 days that was manageable. His appetite is good. Martínez reports fingertips today that are a little swollen and tender. He denies peeling in hands or feet. He denies general tenderness in his feet or toes (exlusive of a previous toe problem.) We reviewed the three main symptom complaints of the past 2 visits. Martínez continues to have a tender area located under his left ribs in mid-clavicular area. He reports mild early satiety. He has been taking Pepcid bid without any change in this discomfort. No nausea or vomiting reported. No other abdominal pain or cramping. He had upper right jaw pain that was resolved after a plug of orange mucous was expectorated a few weeks ago. He has not had any recurrent jaw pain since. Martínez saw podiatry for a right great toe tenderness and white nail discoloration. He tells me thepodiatrist thought it was a fungal infection secondary to chemotherapy, and prescribed a topical treatment. He has not had any fever or chills. No shortness of breath, cough or chest pain. No other new skin issues. Allergies Allergen Reactions ??? Opioids - Morphine [...] normal. Thought Content: Thought content normal. BP 116/74 Pulse 87 Temp 36.9 ??C (98.5 ??F) Resp 20 Ht 174.5 cm (5' 8.7) Wt 96.3 kg (212lb 6.4 oz) SpO2 97% BMI 31.64 kg/m?? LABS 03/07/21 WBC 8.06; ANC 4.56; H/H 12.3/38.3; PLT 267; BUN 22; CREAT 1.2; LFTs normal; BILI 0.7; Electrolytes normal. CEA 02/14/21 - 2.2 01/02/21 - <2.O Assessment and Plan: Assessment: Martínez Toribio is a 65 yo male diagnosed with a cecal mass adenocarcinoma in 07/21. He had a right hemicolectomy 07/16 and lymph nodes were negative. It was recommended he take oral Capecitabine as adjuvant therapy for 8 cycles. (See history as summarized above.) has been spending time in [place] and [place] this summer. [facility] today[facility] routine follow-up after completing his capecitabine therapy. 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 CBC and CMP and CEA reviewed with Martínez today. Plan: Martínez has a follow up planned for his oncologist in [place], including a CT planned for his follow-up. He will be leaving for [place] soon for the winter. We will be happy to resume care as needed when he returns to the area next year. documented in this encounter Plan of Treatment Not on file documented as of this encounter Visit Diagnoses Diagnosis Malignant neoplasm of ascending colon documented in this encounter Care Teams Cotton Agent Relationship Specialty Start Date End Date None None PCP - General 11/08/20 documented as of this encounter
--- OUTSIDE RECORDS SUMMARY | 2024-01-11 21:58 | XMS_ITS | Referral Summary ---
Author Organization [facility] Address Unknown Care Team Providers Care Marble Cleaner Name Role Phone NADIA COLMENARES Primary Care Physician [phone] Encounter 03/28/21 - 03/28/21 [facility] Discharge Disposition: H Outpt-Sent Home Attending Physician: BREN MARTELL Admitting Physician: BREN MARTELL Referring Physician: BREN MARTELL Allergies, Adverse Reactions, Alerts Substance Reaction Severity Status morphine Itching Hallucinations Severe Active gabapentin Nausea/GI upset Moderate Active Medications aspirin 81 mg oral [...] 0 Refill(s) Start Date: 10/19/19 Status: Ordered Colace 100 mg oral capsule 100 mg = 1 caps, Oral, Daily, PRN, # 10 caps, 0 Refill(s), [facility], 1 caps Oral Daily,x10 days,PRN:constipation, constipation, 175.3, cm, 07/16/20 6:31:00 EST, Height/Length Measured, 97.5, kg, 07/16/20 6:31:00 EST, Weight D... Start Date: 07/19/20 Stop Date: 07/29/20 Status: Ordered cyclobenzaprine 10 mg oral tablet 10 mg = 1 tabs, Oral, TID, PRN, # 30 tabs, 0 Refill(s) Start Date: 10/19/19 Status: Ordered elppa CoQ10 50 mg oral capsule 100 mg = 2 caps, Oral, Daily, # 60 caps, 0 Refill(s) Start Date: 07/08/20 Status: Ordered Jardiance 25 mg oral tablet 25 mg = 1 tabs, Oral, qAM, 0 Refill(s) Start Date: 10/19/19 Status: Ordered Lipitor 40 mg oral tablet 40 mg = 1 tabs, Oral, Daily, 0 Refill(s) Start Date: 10/19/19 Status: Ordered Lortab 7.5/325 oral tablet tabs, Oral, q6hr, LAST DOSE, 0 Refill(s) Start Date: 10/20/19 Stop Date: 07/08/20 Status: Completed Melatonin 1 mg =, Oral, Once a Day (at bedtime), PRN, 0 Refill(s), as needed for sleep Start Date: 07/08/20 Status: Ordered metFORMIN 1,000 mg =, Oral, BID, 0 Refill(s) Start Date: 07/08/20 Status: Ordered oxyCODONE 5 mg oral tablet 5 mg = 1 tabs, Oral, q4hr, # 15 tabs, 0 Refill(s), 07/21/20 15:17:00 EST Start Date: 07/17/20 Stop Date: 07/21/20 Status: Completed Probiotic Formula (Bacillus Coagulans) oral capsule 1 caps, Oral, Daily, 0 Refill(s) Start Date: 07/08/20 Status: Ordered Protonix 40 mg oral delayed release tablet 40 mg = 1 tabs, Oral, BID, 0 Refill(s) Start Date: 10/19/19 Status: Ordered [...] 0 Refill(s) Start Date: 07/08/20 Status: Ordered Procedures Procedure Date Related Diagnosis Body Site Status Colectomy Right Laparoscopic SCIP 1 07/16/20 Completed Lumbar Epidural Steroid Injection 2 10/20/19 Completed L5-S1 SURGERY 2016 Completed C6-C7 SURGERY 2012 Completed RIGHT SHOULDER REPAIR 3 2011 C ompleted Lithotripsy 2009 Completed L2-L3 SURGERY 1983 Completed C5-C6 interspinalis cervicis Completed Colonoscopy Completed LEFT FOOT SURGERY Complet ed RIGHT KNEE SCOPED/REMOVED MENISCUS 4 Completed RIGHT WRIST REPAIR Comple everton 1auto-populated from documented surgical case 2auto-populated from documented surgical case 3X'S 2 4X'S3 Social History Social History Type Response Smoking Status Never (less than 100 in lifetime) entered on: 10/20/19
--- OUTSIDE RECORDS SUMMARY | 2024-01-11 21:58 | XMS_ITS | Encounter Summary ---
Author Organization [facility] Address [facility] [place] [address] Care Team Providers Care Gta Name Role Phone Unavailable Primary Care Provider Unavailabl e Reason for Visit * Reason Comments Advice Only * Consultation (Routine) - Closed Specialty Diagnoses / Procedures Referred By Contac t Referred To Contact Hematology and Oncology Diagnoses Colon cancer COLON CANCER Procedures TREATMENT OPTIONS Georgi Butterfield MD [address] [facility] [address] [place] [address] [facility] Hem Onc Office [address] [place] [phone] Referral ID Status Reason Start Date Expiration Date Visits Re quested Visits Authorized [id number] Closed 10/24/2020 10/24/2021 1 1 Encounter Details Date Type Department Care Team (Late st Contact Info) Description 11/06/2020 2:45 PM EDT Office Visit [place]ematology [place] [address] Nik Killian MD [facility] [place] [address] Malignant neoplasm of ascending colon Social History Tobacco Use Types Packs/Day Years Used Date Smoking Tobacco: Never Smokeless Tobacco: Never Sex and Gender Information Value Date Recorded Sex Assigned at Not on file Gender Identity Not on file Sexual Orientation Not on file documented as of this encounter Last Filed Vital Signs Vital Sign Reading Time Taken Comments Blood Pressure 110/66 11/06/2020 2:49 PM EDT Pulse 81 11/06/2020 2:49 PM EDT Temperature 36.6 ??C (97.9 ??F) 11/06/2020 2:49 PM ED T Respiratory Rate 16 11/06/2020 2:49 PM EDT Oxygen Saturation 97% 11/06/2020 2:49 PM EDT Inhaled Oxygen Concentration - - Weight 91.6 kg (202 lb) 11/06/2020 2:49 PM EDT Height 174.5 cm (5' 8.7) 11/06/2020 2:49 PM EDT Body Mass Index 30.09 11/06/2020 2:49 PM EDT documented in this encounter Progress Notes * Nik Killian MD - 11/06/2020 2:45 PM EDT Subjective: Patient ID: Martínez Toribio [...] Martínez Toribio is seen for evaluation and management of colon cancer. The history is summarizedabove. He lives in [facility] and but staying in [place], [place] for the summer months. He is seen for f/u and continued adjuvant therapy He is accompanied to clinic today by his . He started cycle 3 of capecitabine on 11/04/20 at 1500mg bid. He is tolerating it well thus far but it has only been a couple of day. He has no mouth sores or diarrhea and no redness or discomfort the the palms of his hands or soles of his feet. No nausea or vomiting. He notices that, since starting the chemotherapy, he does not tolerate eggs. His weight is stable. His energy level is pretty good. He was out using the chainsaw yesterday and king some muscle soreness. His bowels are regular. He thinks he has a pull in the left inguinal region. He hasDM which is well controlled. Soc Hx: , lives in [place], visiting [place] for the summer Tob - Quit in 2008; priot to that, 2 ppd for 27 years Etoh - 5 to 7 drinks per week On disability due to spinal stenosis. 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 Fam Hx: Father - Mother - Sibs [...] Psychiatric: Mood and Affect: Mood normal. Labs: (10/30/20): CBC ok per pt. BUN/Cr - 15/1.1. Glucose - 174. Lytes and LFTs o/w unremarkable. [facility] test result 10/07/20: MTM/ml: 0.00 Post-op (pre-chemo) ctc test by [facility] on 08/07/20 - negative Recheck 08/22/20 - negative Recheck 10/06/20 - negative CEA: 10/09/20 2.6 09/11/20 2.5 08/21/20 2.2 07/29/20 1.9 Pre-op 1.8 Assessment and Plan: Martínez Toribio is 65 yo, referred for evaluation and management of colon cancer. He lives in [facility] [place] and is visiting [place] for the summer months. He is seen [...] increased to 1500 mg bidfor cycle 3 and he began this on 11/04/20. He is doing well with this thus far but again it has only been a couple of days. He will continue this cycle of therapy at the current dose. If he develops problems with stomatitis, hand foot syndrome or other side effects, I asked him to let me know immediately. He is living in [place], [place] for the summer months and I will plan to arrange for his f/u to be in [facility]. As I am on service and will not be in [facility] on 11/22, I will arrange for a TeleHealth visit with labs prior. He had his are both fully vaccinated against Covid 19. documented in this encounter Plan of Treatment Not on file documented as of this encounter Visit Diagnoses Diagnosis Malignant neoplasm of ascending colon documented in this encounter
--- OUTSIDE RECORDS SUMMARY | 2024-01-11 21:59 | XMS_ITS | Encounter Summary ---
Author Organization [facility] Address [address] [place] [address] Care Team Providers Care It Operations Specialist Name Role Phone Felicitas Monaco MD Primary Care Provider Yonas lester Reason for Referral * (Routine) - Closed Specialty Diagnoses / Procedures Referred By Contac t Referred To Contact Diagnoses Lumbar pain Procedures XR Lumbar Spine AP And Lateral Dave Moser MD [address] [place] [address] Referral ID Status Reason Start Date Expiration Date Visits Re quested Visits Authorized [id number] Closed 09/29/2022 09/29/2023 1 1 Reason for Visit * (Routine) - Closed Specialty Diagnoses / Procedures Referred By Contac t Referred To Contact Diagnoses Lumbar pain Procedures XR Lumbar Spine AP And Lateral Dave Moser MD [address] [place] [address] Referral ID Status Reason Start Date Expiration Date Visits Re quested Visits Authorized [id number] Closed 09/29/2022 09/29/2023 1 1 Encounter Details Date Type Department Care Team (Latest Contact Info) Description 10/02/2022 12:53 PM EDT - 10/02/2022 11:59 PM EDT Hospital Encounter RADIOLOGY [facility] [address] [place] [address] Dave Moser MD [address] [place] [address] Lumbar pain Discharge Disposition: Home or Self Care Social History Tobacco Use Types Packs/Day Years Used Date Smoking Tobacco: Never Passive Smoke Exposure: Never Smokeless Tobacco: Never Alcohol Use Standard Drinks/Week Comments Yes 5 (1 standard drink = 0.6 oz pur e alcohol) Sex and Gender Information Value Date Recorded Sex Assigned at Not on file Gender Identity Not on file Sexual Orientation Not on file COVID-19 Exposure Response Date Recorded In the last 10 days, have yo u been in contact with someone who was confirmed or suspected to have Coronavirus/COVID-19? No / Unsure 10/02/2022 12:51 PM EDT documented as of this encounter Medications at Time of Discharge Medication Sig Dispensed Refills Start Date End Date acetaminophen (Tylenol) 500 mg tablet Take 1 tablet by mouth. atorvastatin (Lipitor) 40 mg tablet daily. 10/19/2019 cyclobenzaprine (Flexeril) 10 mg tablet cyclobenzaprine 10 mg tablet Take 1 tablet 3 times a day by oral route as needed. 10/19/2019 dulaglutide (Trulicity) 0.75 mg/0.5 mL subcutaneous pen injector Trulicity 0.75 mg/0.5 mL subcutaneous pen injector Inject by subcutaneous route. 10/19/2019 empagliflozin (Jardiance) 25 mg tablet daily. 10/19/2019 metFORMIN (Glucophage) 1,000 mg tablet in the morning and at bedtime. 08/17/2022 olmesartan (Benicar) 20 mg tablet daily. 10/19/2019 pantoprazole (Protonix) 40 mg delayed release tablet 08/17/2022 documented as of this encounter Plan of Treatment Not on file documented as of this encounter Procedures Procedure Name Priority Date/Time Associated Diagnosis Comments XR LUMBAR SPINE AP AND LATERAL Routine 10/02/2022 1:10 PM EDT Lumbar pain documented in this encounter Results * XR Lumbar Spine AP And Lateral (10/02/2022 1:10 PM EDT) Anatomical Region Laterality Modality L-SPINE Computed Radiogr aphy 10/02/2022 1:18 PM EDT Impressions 10/02/2022 1:41 PM EDT IMPRESSION: Uncomplicated L2-L3 posterior and interbody fusion. Mild to moderate degenerative disc disease at L3-L4 with trace retrolisthesis, unchanged. Dictated by: René Eller MD. 10/02/2022 1:18 PM Piyush Pendleton MD [[facility]], have reviewed the study and agree with the findings in this report. ??10/02/2022 1:41 PM Narrative 10/02/2022 1:41 PM EDT EXAMINATION: XR LUMBAR SPINE AP AND LATERAL 10/02/2022 1:11 PM ACCESSION NUMBER: [id number] INDICATION: lumbar pain. lumbar pain. COMPARISON: Lumbar spine radiographs 07/29/2022 and MRI 09/01/2022 TECHNIQUE: Frontal and Lateral views of the lumbar spine were obtained. FINDINGS: There are 5 nonrib-bearing lumbar-type vertebrae Posterior and interbody fusion at L2-L3 without evidence of hardware loosening. There is no fracture. Alignment is unchanged with trace retrolisthesis of L3 on L4. Mild multilevel mild-moderate disc height loss most notably at L5-S1. Lower lumbar predominant facet arthropathy. Procedure Note Piyush Vazquez MD - 10/02/2022 EXAMINATION: XR LUMBAR SPINE AP AND LATERAL 10/02/2022 1:11 PM ACCESSION NUMBER: [id number] INDICATION: lumbar pain. lumbar pain. COMPARISON: Lumbar spine radiographs 07/29/2022 and MRI 09/01/2022 TECHNIQUE: Frontal and Lateral views of the lumbar spine were obtained. FINDINGS: There are 5 nonrib-bearing lumbar-type vertebrae Posterior and interbodyfusion at L2-L3 without evidence of hardware loosening. There is no fracture. Alignment is unchanged with trace retrolisthesis of L3 on L4. Mildmultilevel mild-moderate disc height loss most notably at L5-S1. Lower lumbarpredominant facet arthropathy. IMPRESSION: Uncomplicated L2-L3 posterior and interbody fusion. Mild to moderate degenerative disc disease at L3-L4 with traceretrolisthesis, unchanged. Dictated by: René Eller MD. 10/02/2022 1:18 PM Piyush Pendleton MD [[facility]], have reviewed the study and agreewith the findings in this report. 10/02/2022 1:41 PM Dave Moser MD IMG DIAGNOSTIC IMAGING ORDERABLES documented in this encounter Visit Diagnoses Diagnosis Lumbar pain Lumbago documented in this encounter Care Teams It Operations Specialist Relationship Specialty Start Date End Date Felicitas Monaco MD PCP - General Family Medicine 08/18/22 documented as of this encounter
--- OUTSIDE RECORDS SUMMARY | 2024-01-11 21:59 | XMS_ITS | Encounter Summary ---
Author Organization [facility] Address [address] [place] [address] Care Team Providers Care Top Tile Decorator Name Role Phone Felicitas Monaco MD Primary Care Provider Yonas lester Encounter Details Date Type Department Care Team (Late st Contact Info) Description 10/06/2022 Telephone [facility] [address] [facility] [address] [place], [place] [id number] Tere Mancilla ATC, [place] [address] [place], [place] [id number] Social History Tobacco Use Types Packs/Day Years [...] PM EDT documented as of this encounter Miscellaneous Notes * Telephone Encounter - Tere Mancilla ATC, [place] - 10/06/2022 9:18 AM EDT Spoke with patient. He states he has thrown his back out previously several times. He just wanted to let Dr. Moser know because it is longer than what he previously talked to him about. He stated he woke up feeling really good, was going to fill up a watering can so that he could water the plants for the hot day and just being bent down coming up he threw out his back. He endorses he has no numbness and tingling, no problems with bowel and bladder, sensations are all normal. He is comfortable in a position and he has flexeril and norco prescribed by his PCP that he was going to take today to calm down the pain. We discussed tylenol as well as heat or ice for pain management. He is in agreement with the plan. documented in this encounter Plan of Treatment Not on file documented as of this encounter Visit Diagnoses Not on filedocumented in this encounter Care Teams Top Tile Decorator Relationship Specialty Start Date End Date Felicitas Monaco MD PCP - General Family Medicine 08/18/22 documented as of this encounter"
--- OUTSIDE RECORDS SUMMARY | 2024-01-11 21:59 | XMS_ITS | Referral Summary ---
Author Organization [facility] Address [address] [facility], [facility] [place] [address] Care Team Providers Care Helminthology Teacher Name Role Phone NADIA COLMENARES Primary Care Physician Encounter 03/04/23 - 03/04/23 [facility] [address] [facility], [facility] [place] [address] Admitting Physician: Maurice Bello Allergies, Adverse Reactions, Alerts Substance Reaction Severity Status morphine Itching Hallucinations Severe Active Medications aspirin 81 mg oral delayed release tablet 81 mg = 1 tabs, Oral, qAM, 0 Refill(s) Start Date: 10/19/19 Status: Ordered aspirin 81 mg oral delayed release tablet 81 mg = 1 tabs, Oral, Daily, BLOOD CLOT PREVENTION, # 14 tabs, 0 Refill(s), Pharmacy: [facility], 1 tabs Oral Daily,x14 days,Instr:BLOOD [...] 0 Refill(s) Start Date: 07/08/20 Status: Ordered [place] 325 mg-5 mg oral tablet 1 tabs, Oral, q4hr, PRN, X 7 days, # 20 tabs, 0 Refill(s), 07/28/21 11:19:00 EST, moderate pain (4-7) Start Date: 07/21/21 Stop Date: 07/28/21 Status: Completed [place] 325 mg-7.5 mg oral tablet 1-2 tabs, [...] 1 WBC [3.8-10.6 x10e3/mcL] 6.6 x10e3/mcL (03/04/23 1:03 PM) Hgb Most recent to oldest [Reference Range]: 1 Hgb [13.0-17.3 g/dL] 16.2 g/dL (03/04/23 1:03 PM) Hct Most recent to oldest [Reference Range]: 1 HCT [38.0-52.0 %] 48.1 % (03/04/23 1:03 PM) Platelet Count Most recent to oldest [Reference Range]: 1 Platelet [140-440 x10e3/mcL] 298 x10e3/m cL (03/04/23 1:03 PM) Sodium Lvl Most recent to oldest [Reference Range]: 1 Sodium Lvl [135-145 mmol/L] 138 mmol/L (03/04/23 1:03 PM) Potassium Lvl Most recent to oldest [Reference Range]: 1 Potassium Lvl [3.5-5.3 mmol/L] 5.0 mmol/ L (03/04/23 1:03 PM) CO2 Most recent to oldest [Reference Range]: 1 CO2 [22-29 mmol/L] 26 mmol/L (03/04/23 1:03 PM) Chloride Most recent to oldest [Reference Range]: 1 Chloride [98-107 mmol/L] 101 mmol/L (03/04/23 1:03 PM) Anion Gap Most recent to oldest [Reference Range]: 1 AGAP [2-17 mmol/L] 11 mmol/L (03/04/23 1:03 PM) BUN Most recent to oldest [Reference Range]: 1 BUN [8-23 mg/dL] 19 mg/dL (03/04/23 1:03 PM) CREATININE Most recent to oldest [Reference Range]: 1 Creatinine Lvl [0.7-1.3 mg/dL] 1.2 mg/dL (03/04/23 1:03 PM) Calcium Lvl Most recent to oldest [Reference Range]: 1 Calcium Lvl [8.8-10.2 mg/dL] 10.3 mg/dL *HI* (03/04/23 1:03 PM) Albumin Lvl Most recent to oldest [Reference Range]: 1 Albumin Lvl [3.5-5.2 g/dL] 4.5 g/dL (03/04/23 1:03 PM) Total Protein Most recent to oldest [Reference Range]: 1 Protein Total [6.4-8.3 g/dL] 6.8 g/dL (03/04/23 1:03 PM) Alk Phos Most recent to oldest [Reference Range]: 1 Alk Phos [40-130 unit/L] 91 unit/L (03/04/23 1:03 PM) AST Most recent to oldest [Reference Range]: 1 AST [0-50 unit/L] 18 unit/L (03/04/23 1:03 PM) ALT Most recent to oldest [Reference Range]: 1 ALT [0-50 unit/L] 24 unit/L (03/04/23 1:03 PM) Bilirubin Total Most recent to oldest [Reference Range]: 1 Bili Total [0.00-1.20 mg/dL] 0.55 mg/dL (03/04/23 1:03 PM) Immunizations Given and Recorded Vaccine Date [...]
--- OUTSIDE RECORDS SUMMARY | 2024-01-11 21:59 | XMS_ITS | Referral Summary ---
Author Organization [facility] Address [address] [place] [id number] Care Team Providers Care Vertical Lathe Operator Name Role Phone NADIA COLMENARES Primary Care Physician Encounter 10/19/23 - 10/20/[address] [address] Encounter Diagnosis Presence of right artificial hip joint(Final) - 10/19/23 Unilateral primary osteoarthritis, right hip(Final) - 10/19/23 Attending Physician: Maurice Bello Admitting Physician: Maurice Bello Allergies, Adverse Reactions, Alerts Substance Reaction Severity Status morphine Itching Hallucinations Severe Active Medications aspirin 81 mg oral delayed release tablet 81 mg = 1 tabs, Oral, Daily, BLOOD CLOT PREVENTION, # 14 tabs, 0 Refill(s), Pharmacy: [facility], 1 tabs Oral Daily,x14 days,Instr:BLOOD CLOT [...] 0 Refill(s) Start Date: 07/08/20 Status: Ordered [place] 325 mg-5 mg oral tablet 1 tabs, Oral, q4hr, PRN, X 7 days, # 20 tabs, 0 Refill(s), 07/28/21 11:19:00 AM EST, moderate pain (4-7) Start Date: 07/21/21 Stop Date: 07/28/21 Status: Completed [place] 325 mg-7.5 mg oral tablet 1-2 tabs, Oral, q4hr, PRN, X 5 days, # 40 tabs, 0 Refill(s), 10/18/21 11:26:00 AM EDT, Pharmacy: [id number] [place], 1-2 [...] oldest [Reference Range]: 1 Hgb [13.0-17.3 g/dL] 13.7 g/dL (10/20/23 4:14 AM) Hct Most recent to oldest [Reference Range]: 1 HCT [38.0-52.0 %] 41.8 % (10/20/23 4:14 AM) Sodium Lvl Most recent to oldest [Reference Range]: 1 Sodium Lvl [135-145 mmol/L] 138 mmol/L (10/20/23 4:14 AM) Potassium Lvl Most recent to oldest [Reference Range]: 1 Potassium Lvl [3.5-5.3 mmol/L] 4.8 mmol/ L (10/20/23 4:14 AM) CO2 Most recent to oldest [Reference Range]: 1 CO2 [22-29 mmol/L] 26 mmol/L (10/20/23 4:14 AM) Chloride Most recent to oldest [Reference Range]: 1 Chloride [98-107 mmol/L] 102 mmol/L (10/20/23 4:14 AM) Anion Gap Most recent to oldest [Reference Range]: 1 AGAP [2-17 mmol/L] 10 mmol/L (10/20/23 4:14 AM) BUN Most recent to oldest [Reference Range]: 1 BUN [8-23 mg/dL] 17 mg/dL (10/20/23 4:14 AM) CREATININE Most recent to oldest [Reference Range]: 1 Creatinine Lvl [0.7-1.3 mg/dL] 1.1 mg/dL (10/20/23 4:14 AM) Calcium Lvl Most recent to oldest [Reference Range]: 1 Calcium Lvl [8.5-10.7 mg/dL] 9.0 mg/dL (10/20/23 4:14 AM) Microbiology Reports TEST:Tissue Culture with Gram Stain STATUS:Order in Progress BODY SITE: SOURCE:Tissue COLLECTED DATE/TIME:10/19/23 5:12 PM PRELIMINARY REPORT No growth after 18- 24 hours. STAIN REPORT No Polymorphonuclear WBC No Bacteria Seen TEST:Tissue Culture with Gram Stain STATUS:Order in Progress BODY SITE: SOURCE:Tissue COLLECTED DATE/TIME:10/19/23 4:58 PM PRELIMINARY REPORT No growth after 18- 24 hours. STAIN REPORT No Polymorphonuclear WBC No Bacteria Seen TEST:Culture Fungus Non Blood with Gram Stain STATUS:Order in Progress BODY SITE: SOURCE:Joint, Hip COLLECTED DATE/TIME:10/19/23 8:53 AM PRELIMINARY REPORT Specimen in lab and set up for fungal culture. Testing is now in progress and will continue for 28 days. Positive results are reported as soon as possible after detection. Negative cultures will be updated on days 3, 14, and 28. Cultures on the following specific sources will be held for 7 days only: Esophageal [place], Mouth, Stool, Throat, and Vaginal. Negative cultures from these sources will beupdated on day 3 and 7. STAIN REPORT No Fungi Seen TEST:Culture AFB Non Blood with Gram Stain STATUS:Order in Progress BODY SITE: SOURCE:Joint, Hip COLLECTED DATE/TIME:10/19/23 8:53 AM PRELIMINARY REPORT Specimen in lab & set up for AFB culture. Culture will be held for 6 weeks for final negative. First preliminary negative report will be at 3 weeks. Positive cultures will be called to floor and/or requesting physician. STAIN REPORT No Acid Fast Bacilli Seen TEST:Culture Fungus Non Blood with Gram Stain STATUS:Order in Progress BODY SITE: SOURCE:Joint Fluid COLLECTED DATE/TIME:10/19/23 8:50 AM PRELIMINARY REPORT Specimen in lab and set up for fungal culture. Testing is now in progress and will continue for 28 days. Positive results are reported as soon as possible after detection. Negative cultures will be updated on days 3, 14, and 28. Cultures on the following specific sources will be held for 7 days only: Esophageal [place], Mouth, Stool, Throat, and Vaginal. Negative cultures from these sources will beupdated on day 3 and 7. STAIN REPORT No Fungi Seen TEST:Culture AFB Non Blood with Gram Stain STATUS:Order in Progress BODY SITE: SOURCE:Joint Fluid COLLECTED DATE/TIME:10/19/23 8:50 AM PRELIMINARY REPORT Specimen in lab & set up for AFB culture. Culture will be held for 6 weeks for final negative. First preliminary negative report will be at 3 weeks. Positive cultures will be called to floor and/or requesting physician. STAIN REPORT No Acid Fast Bacilli Seen Immunizations Given and Recorded Vaccine Date Status [...] C6-C7 SURGERY 2013 Completed RIGHT SHOULDER REPAIR 5 2011 C ompleted Lithotripsy 2009 Completed L2-L3 [...]
--- OUTSIDE RECORDS SUMMARY | 2024-01-11 21:59 | XMS_ITS | Encounter Summary ---
Author Organization [facility] Address [address] [place] [address] Care Team Providers Care News Photographer Name Role Phone Felicitas Moncao MD Primary Care Provider Yonas lester Reason for Referral * MRI/CAT Scan (Routine) - Closed Specialty Diagnoses / Procedures Referred By Contac t Referred To Contact Radiology Diagnoses Lumbar adjacent segment disease with spondylolisthesis Procedures MRI Lumbar Spine Wo Contrast Cherie Carter FNP [address] [place] [address] Referral ID Status Reason Start Date Expiration Date Visits Re quested Visits Authorized [id number] Closed 08/21/2022 08/21/2023 1 1 Reason for Visit * MRI/CAT Scan (Routine) - Closed Specialty Diagnoses / Procedures Referred By Contac barbara Referred To Contact Radiology Diagnoses Lumbar adjacent segment disease with spondylolisthesis Procedures MRI Lumbar Spine Wo Contrast Cherie Carter FNP [address] [place] [address] Referral ID Status Reason Start Date Expiration Date Visits Re quested Visits Authorized [id number] Closed 08/21/2022 08/21/2023 1 1 Encounter Details Date Type Department Care Team (Latest Contact Info) Description 09/01/2022 3:59 PM EDT - 09/01/2022 11:59 PM EDT Hospital Encounter [facility] MR Imaging [address], [address] [place] [address] Cherie Carter, SUBGRADE TESTER [address] [facility] [place] [address] Lumbar adjacent segment disease with spondylolisthesis Discharge Disposition: Home or Self Care Social History Tobacco Use Types Packs/Day Years Used Date Smoking Tobacco: Former Alcohol Use Standard Drinks/Week Comments Yes 5 [...] suspected to have Coronavirus/COVID-19? No / Unsure 09/01/2022 3:57 PM EDT documented as of this encounter [...] Procedure Name Priority Date/Time Associated Diagnosis Comments MRI LUMBAR SPINE WO CONTRAST Routine 09/01/2022 4:43 PM EDT Lumbar adjacent segment disease with spondylolisthesis documented in this encounter Results * MRI Lumbar Spine Wo Contrast (09/01/2022 4:43 PM EDT) Anatomical Region Laterality Modality L-SPINE Magnetic Resonan ce 09/01/2022 4:56 PM EDT Impressions 09/01/2022 5:22 PM EDT IMPRESSION: At L5-S1 level, there are postsurgical changes of left laminotomy. Disc osteophyte complex, abuts the descending left S1 nerve root and is mild asymmetric enlargement of the left S1 nerve root compared to the right. Additionally, mild degenerative changes as listed by level above. Dictated by: Daniel Gunderson MD. 09/01/2022 4:56 PM Ken Pendleton MD, have reviewed the study and agree with the findings in this report. ??09/01/2022 5:22 PM Narrative 09/01/2022 5:22 PM EDT EXAMINATION: MRI LUMBAR SPINE WO CONTRAST 09/01/2022 4:43 PM ACCESSION NUMBER: [id number] INDICATION:Low back pain, symptoms persist with > 6wks conservative treatment. COMPARISON: None TECHNIQUE: Multiplanar multisequence MRI of the lumbar spine without intravenous contrast. ?? FINDINGS: Numbering of the lumbar vertebrae was done based on the T2 weighted localizer from the craniocervical junction. Based on the localizer, there are 7 cervical, 12 thoracic, and 5 lumbar vertebrae. Posterior fusion and discectomy at L2-L3. There is straightening of the normal lumbar lordosis. Vertebral body heights are maintained. Mild edematous endplate degenerative change along the inferior posterior L3 endplate. Otherwise, marrow signal intensity is within normal limits. The visualized spinal cord is normal in signal intensity. The conus medullaris terminates at L1 level. The nerve roots of the cauda equina appear normal. The paraspinal soft tissues are normal. Evaluation of the individual levels demonstrates: L1-L2: Disc bulge asymmetric to the left with minimal spinal canal stenosis. No significant neural foraminal stenosis. L2-L3: Postsurgical changes without significant spinal canal or significant neural foraminal stenosis. L3-L4: Mild disc bulge without significant spinal canal stenosis. Disc bulge and facet arthropathy result in minimal right and mild left neural foraminal stenosis. L4-L5: Mild disc bulge without significant spinal canal stenosis. Disc bulge and facet arthropathy result in minimal bilateral neural foraminal stenosis. L5-S1: Postsurgical changes of left laminectomy. Disc bulge with minimal spinal canal stenosis and mild bilateral neural foraminal narrowing. Disc bulge abuts the descending left S1 nerve root. There is asymmetric thickening of the left S1 nerve root. Procedure Note Ken Masters MD - 09/01/2022 EXAMINATION: MRI LUMBAR SPINE WO CONTRAST 09/01/2022 4:43 PM ACCESSION NUMBER: [id number] INDICATION:Low back pain, symptoms persist with > 6wks conservativetreatment. COMPARISON: None TECHNIQUE: Multiplanar multisequence MRI of the lumbar spine without intravenous contrast. FINDINGS: Numbering of the lumbar vertebrae was done based on the T2 weightedlocalizer from the craniocervical junction. Based on the localizer, there are 7cervical, 12 thoracic, and 5 lumbar vertebrae. Posterior fusion and discectomy at L2-L3. There is straightening of the normal lumbar lordosis. Vertebral bodyheights are maintained. Mild edematous endplate degenerative change along theinferior posterior L3 endplate. Otherwise, marrow signal intensity is withinnormal limits. The visualized spinal cord is normal in signal intensity. The conusmedullaris terminates at L1 level. The nerve roots of the cauda equina appearnormal. The paraspinal soft tissues are normal. Evaluation of the individual levels demonstrates: L1-L2: Disc bulge asymmetric to the left with minimal spinal canalstenosis. No significant neural foraminal stenosis. L2-L3: Postsurgical changes without significant spinal canal orsignificant neural foraminal stenosis. L3-L4: Mild disc bulge without significant spinal canal stenosis. Discbulge and facet arthropathy result in minimal right and mild left neuralforaminal stenosis. L4-L5: Mild disc bulge without significant spinal canal stenosis. Discbulge and facet arthropathy result in minimal bilateral neural foraminalstenosis. L5-S1: Postsurgical changes of left laminectomy. Disc bulge with minimalspinal canal stenosis and mild bilateral neural foraminal narrowing. Disc bulgeabuts the descending left S1 nerve root. There is asymmetric thickening of theleft S1 nerve root. IMPRESSION: At L5-S1 level, there are postsurgical changes of left laminotomy. Disc osteophyte complex, abuts the descending left S1 nerve root and is mild asymmetric enlargement of the left S1 nerve root compared to the right. Additionally, mild degenerative changes as listed by level above. Dictated by: Daniel Gunderson MD. 09/01/2022 4:56 PM I, Ken Masters MD, have reviewed the study and agree with the findingsin this report. 09/01/2022 5:22 PM Cherie Carter SUBGRADE TESTER IMG MRI ORD ERABLES documented in this encounter Visit Diagnoses Diagnosis Lumbar adjacent segment disease with spondylolisthesis documented in this encounter Care Teams News Photographer Relationship Specialty Start Date End Date Felicitas Monaco MD PCP - General Family Medicine 08/18/22 documented as of this encounter
--- OUTSIDE RECORDS SUMMARY | 2024-01-11 21:59 | XMS_ITS | Encounter Summary ---
Author Organization [facility] Address [address] [place] [address] Care Team Providers Care Stocking And Box Shop Supervisor Name Role Phone Felicitas Monaco MD Primary Care Provider Yonas lester Reason for Referral * MRI/CAT Scan (Routine) - Closed Specialty Diagnoses / Procedures Referred By Contac t Referred To Contact Radiology Diagnoses Thoracic radiculopathy Procedures MRI Thoracic Spine Wo Contrast Dave Moser MD [address] [place] [address] Referral ID Status Reason Start Date Expiration Date Visits Re quested Visits Authorized [id number] Closed 10/02/2022 10/02/2023 1 1 Reason for Visit * MRI/CAT Scan (Routine) - Closed Specialty Diagnoses / Procedures Referred By Contac t Referred To Contact Radiology Diagnoses Thoracic radiculopathy Procedures MRI Thoracic Spine Wo Contrast Dave Moser MD [address] [place] [address] Referral ID Status Reason Start Date Expiration Date Visits Re quested Visits Authorized [id number] Closed 10/02/2022 10/02/2023 1 1 Encounter Details Date Type Department Care Team (Latest Contact Info) Description 10/28/2022 2:31 PM EDT - 10/28/2022 11:59 PM EDT Hospital Encounter [facility] [place] [facility] Imaging [address] [place] [address] Dave Moser MD [address] [place] [address] Thoracic radiculopathy Discharge Disposition: Home or Self Care Social [...] suspected to have Coronavirus/COVID-19? No / Unsure 10/28/2022 2:31 PM EDT documented as of this encounter [...] Name Priority Date/Time Associated Diagnosis Comments MRI THORACIC SPINE WO CONTRAST Routine 10/28/2022 3:17 PM EDT Thoracic radiculopathy documented in this encounter Results * MRI Thoracic Spine Wo Contrast (10/28/2022 3:17 PM EDT) Anatomical Region Laterality Modality T-SPINE Magnetic Resonan ce 10/28/2022 3:26 PM EDT Impressions 10/28/2022 3:28 PM EDT IMPRESSION: No evidence of fracture with small central disc protrusions at T6-T7 and T7-T8. No evidence of significant foraminal narrowing in the thoracic spine Piyush Pendleton MD [[facility]], have reviewed the study and agree with the findings in this report. ??10/28/2022 3:28 PM Narrative 10/28/2022 3:28 PM EDT EXAMINATION: MRI THORACIC SPINE WO CONTRAST 10/28/2022 3:17 PM ACCESSION NUMBER: [id number] INDICATION: thoracic radiculopathy. Mid-back pain, thoracic radiculopathy. COMPARISON: None TECHNIQUE: Multiplanar multisequence MRI of the thoracic spine without intravenous contrast. ?? FINDINGS: There is no evidence of fracture. There are small central disc protrusions of T6-T7 and T7-T1 with mild secondary central canal narrowing. There is no evidence of significant foraminal narrowing. Normal thoracic cord signal. No suspicious mass lesion in the ydqvv-ag-zogj of this examination. Partially visualized cervical and lumbar hardware. Procedure Note Piyush Vazquez MD - 10/28/2022 EXAMINATION: MRI THORACIC SPINE WO CONTRAST 10/28/2022 3:17 PM ACCESSION NUMBER: [id number] INDICATION: thoracic radiculopathy. Mid-back pain, thoracicradiculopathy. COMPARISON: None TECHNIQUE: Multiplanar multisequence MRI of the thoracic spine without intravenous contrast. FINDINGS: There is no evidence of fracture. There are small central disc protrusionsof T6-T7 and T7-T1 with mild secondary central canal narrowing. There is no evidence of significant foraminal narrowing. Normal thoracic cord signal.No suspicious mass lesion in the plcnb-oz-[id number] of this examination.Partially visualized cervical and lumbar hardware. IMPRESSION: No evidence of fracture with small central disc protrusions at T6-T7 andT7-T8. No evidence of significant foraminal narrowing in the thoracic spine Piyush Pendleton MD [[facility]], have reviewed the study and agreewith the findings in this report. 10/28/2022 3:28 PM Dave Moser MD IMG MRI ORDERA BLES documented in this encounter Visit Diagnoses Diagnosis Thoracic radiculopathy Thoracic or lumbosacral neuritis or radiculitis, unspecified documented in this encounter Care Teams Stocking And Box Shop Supervisor Relationship Specialty Start Date End Date Felicitas Monaco MD PCP - General Family Medicine 08/18/22 documented as of this encounter
--- OUTSIDE RECORDS SUMMARY | 2024-01-11 21:59 | XMS_ITS | Referral Summary ---
Author Organization [facility] Address [address] [facility], [place] [address] Care Team Providers Care Switch Coupler Name Role Phone NADIA COLMENARES Primary Care Physician Encounter 03/23/22 - 03/23/22 [facility] [address] [facility], [place] [address] Attending Physician: BREN MARTELL Admitting Physician: BREN MARTELL Allergies, Adverse Reactions, Alerts Substance Reaction Severity Status morphine Itching Hallucinations Severe Active Medications aspirin 81 mg oral delayed release tablet 81 mg = 1 tabs, Oral, qAM, 0 Refill(s) Start Date: 10/19/19 Status: Ordered aspirin 81 mg oral delayed release tablet 81 mg = 1 tabs, Oral, Daily, BLOOD CLOT PREVENTION, # 14 tabs, 0 Refill(s), Pharmacy: [facility], 1 tabs Oral Daily,x14 days,Instr:BLOOD [...] 0 Refill(s) Start Date: 07/08/20 Status: Ordered [place] 325 mg-5 mg oral tablet 1 tabs, Oral, q4hr, PRN, X 7 days, # 20 tabs, 0 Refill(s), 07/28/21 11:19:00 EST, moderate pain (4-7) Start Date: 07/21/21 Stop Date: 07/28/21 Status: Completed [place] 325 mg-7.5 mg oral tablet 1-2 tabs, Oral, q4hr, PRN, X 5 days, # 40 tabs, 0 Refill(s), 10/18/21 11:26:00 EDT, Pharmacy: [id number], 1-2 tabs Oral q4hr,x5 days,PRN:severe pain [...]
--- OUTSIDE RECORDS SUMMARY | 2024-01-11 21:59 | XMS_ITS | Referral Summary ---
Author Organization [facility] Address [address] [facility], [facility] [place] [address] Care Team Providers Care Children'S Librarian Name Role Phone NADIA COLMENARES Primary Care Physician Encounter 03/23/22 - 03/23/22 [facility] [address] [facility], [facility] [place] [address] Attending Physician: BREN MARTELL Admitting Physician: BREN [...] PREVENTION, # 14 tabs, 0 Refill(s), Pharmacy: [facility], 1 tabs Oral Daily,x14 days,Instr:BLOOD CLOT [...] 0 Refill(s) Start Date: 07/08/20 Status: Ordered [place] 325 mg-5 mg oral tablet 1 tabs, Oral, q4hr, PRN, X 7 days, # 20 tabs, 0 Refill(s), 07/28/21 11:19:00 EST, moderate pain (4-7) Start Date: 07/21/21 Stop Date: 07/28/21 Status: Completed [place] 325 mg-7.5 mg oral tablet 1-2 tabs, Oral, q4hr, PRN, X 5 days, # 40 tabs, 0 Refill(s), 10/18/21 11:26:00 EDT, Pharmacy: [id number], 1-2 tabs Oral q4hr,x5 days,PRN:severe pain [...] [Reference Range]: 1 Sodium Lvl [135-145 mmol/L] 139 mmol/L (03/23/22 10:07 AM) Potassium Lvl Most recent to oldest [Reference Range]: 1 Potassium Lvl [3.5-5.3 mmol/L] 5.0 mmol/ L (03/23/22 10:07 AM) CO2 Most recent to oldest [Reference Range]: 1 CO2 [22-29 mmol/L] 25 mmol/L (03/23/22 10:07 AM) Chloride Most recent to oldest [Reference Range]: 1 Chloride [98-107 mmol/L] 102 mmol/L (03/23/22 10:07 AM) Anion Gap Most recent to oldest [Reference Range]: 1 AGAP [2-17 mmol/L] 12 mmol/L (03/23/22 10:07 AM) BUN Most recent to oldest [Reference Range]: 1 BUN [8-23 mg/dL] 14 mg/dL (03/23/22 10:07 AM) CREATININE Most recent to oldest [Reference Range]: 1 Creatinine Lvl [0.7-1.3 mg/dL] 1.2 mg/dL (03/23/22 10:07 AM) Calcium Lvl Most recent to oldest [Reference Range]: 1 Calcium Lvl [8.8-10.2 mg/dL] 10.0 mg/dL (03/23/22 10:07 AM) Albumin Lvl Most recent to oldest [Reference Range]: 1 Albumin Lvl [3.5-5.2 g/dL] 4.6 g/dL (03/23/22 10:07 AM) Total Protein Most recent to oldest [Reference Range]: 1 Protein Total [6.4-8.3 g/dL] 6.8 g/dL (03/23/22 10:07 AM) Alk Phos Most recent to oldest [Reference Range]: 1 Alk Phos [40-130 unit/L] 91 unit/L (03/23/22 10:07 AM) AST Most recent to oldest [Reference Range]: 1 AST [0-50 unit/L] 20 unit/L (03/23/22 10:07 AM) ALT Most recent to oldest [Reference Range]: 1 ALT [0-50 unit/L] 26 unit/L (03/23/22 10:07 AM) Iron Most recent to oldest [Reference Range]: 1 Iron [59-158 mcg/dL] 56 mcg/dL *LOW* (03/23/22 10:07 AM) TIBC Most recent to oldest [Reference Range]: 1 TIBC Calc [250-450 mcg/dL] 419 mcg/dL (03/23/22 10:07 AM) Iron Sat Most recent to oldest [Reference Range]: 1 Iron Sat [20-40 %] 13 % *LOW* (03/23/22 10:07 AM) Ferritin Lvl Most recent to oldest [Reference Range]: 1 Ferritin Lvl [30.0-400.0 ng/mL] 12.4 ng/ mL *LOW* (03/23/22 10:07 AM) Folate Lvl Most recent to oldest [Reference Range]: 1 Folate Lvl [4.80-24.20 ng/mL] 11.20 ng/m L (03/23/22 10:07 AM) Vitamin B12 Lvl Most recent to oldest [Reference Range]: 1 Vitamin B12 Lvl [232-1245 pg/mL] 473 pg/ mL (03/23/22 10:07 AM) Bilirubin Total Most recent to oldest [Reference Range]: 1 Bili Total [0.00-1.20 mg/dL] 0.36 mg/dL (03/23/22 10:07 AM) Immunizations Given and Recorded Vaccine Date [...]
--- OUTSIDE RECORDS SUMMARY | 2024-01-11 21:59 | XMS_ITS | Encounter Summary ---
Author Organization [facility] Address [address] [place] [address] Care Team Providers Care Commercial Horticulture Instructor Name Role Phone Felicitas Monaco MD Primary Care Provider Yonas lester Reason for Referral * MRI/CAT Scan (Routine) - Closed Specialty Diagnoses / Procedures Referred By Contac t Referred To Contact Radiology Diagnoses Lumbar adjacent segment disease with spondylolisthesis Procedures CT Lumbar Spine Wo Contrast Cherie Carter FNP [address] [place] [address] Referral ID Status Reason Start Date Expiration Date Visits Re quested Visits Authorized [id number] Closed 08/21/2022 08/21/2023 1 1 Reason for Visit * MRI/CAT Scan (Routine) - Closed Specialty Diagnoses / Procedures Referred By Contac barbara Referred To Contact Radiology Diagnoses Lumbar adjacent segment disease with spondylolisthesis Procedures CT Lumbar Spine Wo Contrast Cherie Carter FNP [address] [place] [address] Referral ID Status Reason Start Date Expiration Date Visits Re quested Visits Authorized [id number] Closed 08/21/2022 08/21/2023 1 1 Encounter Details Date Type Department Care Team (Latest Contact Info) Description 09/01/2022 3:58 PM EDT Hospital Encounter [facility] CT Imaging [address] [facility], [address] [place] [address] Raul Cherie Bear, CHILD CARE LEADER [address] [place], [place] [id number] Lumbar adjacent segment disease with spondylolisthesis Discharge [...] Procedure Name Priority Date/Time Associated Diagnosis Comments CT LUMBAR SPINE WO CONTRAST Routine 09/01/2022 5:06 PM EDT Lumbar adjacent segment disease with spondylolisthesis documented in this encounter Results * CT Lumbar Spine Wo Contrast (09/01/2022 5:06 PM EDT) Anatomical Region Laterality Modality L-SPINE, Pelvis Computed Tomogra phy 09/01/2022 9:31 PM EDT Impressions 09/01/2022 9:37 PM EDT IMPRESSION: Sequelae of prior interbody/posterior fusion at L2-L3. Suspect additional sequelae of left hemilaminectomy at L5-S1. No acute hardware complication is identified. No high-grade degenerative canal stenosis. Varying degrees of mild degenerative foraminal stenoses. I, New Calderon MD, have reviewed the study and agree with the findings in this report. ??09/01/2022 9:37 PM Narrative 09/01/2022 9:37 PM EDT EXAMINATION: CT LUMBAR SPINE WO CONTRAST 09/01/2022 5:07 PM ACCESSION NUMBER: [id number] INDICATION: Low back pain, prior surgery, new symptoms. COMPARISON: L-spine MRI 09/01/2022. Outside L-spine MRI 07/29/2022. TECHNIQUE: Multiple-row detector helical CT examination of the lumbar spine without IV contrast. Axial, sagittal, and coronal reconstructed images. ?? FINDINGS: There are 5 nonrib-bearing lumbar type vertebral bodies. Straightening of normal lumbar lordosis. Minimal retrolisthesis of L3 on L4. Sequelae of interbody and posterior fusion at L2-L3. Hardware appears intact without surrounding lucency. Suspect additional laminectomy changes on the left at L5-S1. Vertebral body heights are maintained. Multilevel disc and facet degeneration with multifocal disc osteophyte complexes. Additional delayed to interspinous productive changes are noted. No high-grade degenerative canal stenosis. Varying degrees of mild degenerative foraminal stenoses. There are hypodense renal lesions, which are incompletely characterized on this exam, most likely represent cysts. Calcific atherosclerosis of the abdominal aorta and major branching vessels. Bowel anastomosis in the right lower quadrant with regional prominent lymph nodes. Procedure Note New Calderon MD - 09/01/2022 EXAMINATION: CT LUMBAR SPINE WO CONTRAST 09/01/2022 5:07 PM ACCESSION NUMBER: [id number] INDICATION: Low back pain, prior surgery, new symptoms. COMPARISON: L-spine MRI 09/01/2022. Outside L-spine MRI 07/29/2022. TECHNIQUE: Multiple-row detector helical CT examination of the lumbarspine without IV contrast. Axial, sagittal, and coronal reconstructed images. FINDINGS: There are 5 nonrib-bearing lumbar type vertebral bodies. Straighteningof normal lumbar lordosis. Minimal retrolisthesis of L3 on L4. Sequelae of interbody and posterior fusion at L2-L3. Hardware appearsintact without surrounding lucency. Suspect additional laminectomy changes on theleft at L5-S1. Vertebral body heights are maintained. Multilevel disc and facetdegeneration with multifocal disc osteophyte complexes. Additional delayed tointerspinous productive changes are noted. No high-grade degenerative canal stenosis. Varying degrees of milddegenerative foraminal stenoses. There are hypodense renal lesions, which are incompletely characterized onthis exam, most likely represent cysts. Calcific atherosclerosis of the abdominal aorta and major branchingvessels. Bowel anastomosis in the right lower quadrant with regional prominentlymph nodes. IMPRESSION: Sequelae of prior interbody/posterior fusion at L2-L3. Suspect additional sequelae of left hemilaminectomy at L5-S1. No acute hardware complication is identified. No high-grade degenerative canal stenosis. Varying degrees of mild degenerative foraminal stenoses. I, New Calderon MD, have reviewed the study and agree with thefindings in this report. 09/01/2022 9:37 PM Cherie Carter [facility] IMG CT AMANDO SAENZ documented in this encounter Visit Diagnoses Diagnosis Lumbar adjacent segment disease with spondylolisthesis documented in this encounter Care Teams Commercial Horticulture Instructor Relationship Specialty Start Date End Date Felicitas Monaco MD PCP - General Family Medicine 08/18/22 documented as of this encounter
--- OUTSIDE RECORDS SUMMARY | 2024-01-11 21:59 | XMS_ITS | Encounter Summary ---
Author Organization [facility] Address [address] [place] [address] Care Team Providers Care Fixed Wing Aircraft Crew Chief Name Role Phone Felicitas Monaco MD Primary Care Provider Yonas lester Reason for Referral * MRI/CAT Scan (Routine) - Closed Specialty Diagnoses / Procedures Referred By Contac t Referred To Contact Radiology Diagnoses Thoracic radiculopathy Procedures MRI Thoracic Spine Wo Contrast Dave Moser MD [address] [place] [address] Referral ID Status Reason Start Date Expiration Date Visits Re quested Visits Authorized [id number] Closed 10/02/2022 10/02/2023 1 1 * (Routine) - Closed Specialty Diagnoses / Procedures Referred By Contac t Referred To Contact Diagnoses Lumbar pain Procedures XR Lumbar Spine AP And Lateral Dave Moser MD [address] [place] [address] Referral ID Status Reason Start Date Expiration Date Visits Re quested Visits Authorized [id number] Closed 09/29/2022 09/29/2023 1 1 Reason for Visit * Reason Comments Pain Encounter Details Date Type Department Care Team ([facility] Contact Info) Description 10/02/2022 1:00 PM EDT Office Visit [facility] [address] [place] [address] Dave Moser MD [address] [place] [address] Lumbar pain (Primary Dx); Thoracic radiculopathy; Lumbar spondylosis Social History Tobacco Use Types Packs/Day Years [...] PM EDT documented as of this encounter Last Filed Vital Signs Vital Sign Reading Time Taken Comments Blood Pressure - - Pulse - - Temperature - - Respiratory Rate - - Oxygen Saturation - - Inhaled Oxygen Concentration - - Weight 98 kg (216 lb) 10/02/2022 1:22 PM EDT Height 175.3 cm (5' 9) 10/02/2022 1:22 PM EDT Body Mass Index 31.9 10/02/2022 1:22 PM EDT documented in this encounter Progress Notes * Dave Moser MD - 10/02/2022 1:00 PM EDT Martínez Toribio is seen for his initial visit on 10/02/2022. He is a 67 y.o. male with a chief of complaint of right sided axial mechanical low back pain. HISTORY Onset of symptoms present for the last 5 years, but worsening since he re- injured his back in July 2022. He describes the pain as very intense and debilitating pain occasionally radiating around his abdomen. Episodes last 5-15 secs, then it releases and he is able to continue his activity. The pain occurs with flexion, reaching, twisting. He had previous lumbar surgery including L5-S1 decompression and L2-3 posterior fusion. He has multiple orthopedics conditions, upcoming B TKA this summer. He has hopes of returning to [place] in [place]. Patient localizes pain to right paraspinal region of the upper to mid lumbar spine. Symptoms made worse with reaching, bending, twisting and positional changes Symptoms improved with rest, limited motion Associated symptoms include: No radicular leg pain. Patient denies having any gait imbalance, patient denies having any loss of hand dexterity, patientdenies any gross sensory disturbance, patient denies subjective weakness. Bowel/bladder function: normal Red flags/constitutional symptoms: Hx of colon cancer 2019, hemicolectomy 2020 Past treatments: Physical Therapy - yes Medication - yes [place], Flexeril, tylenol Injections - yes Chiropractor - no Other - Functional capacity: Patient can walk up to 100 yards Past History Past Medical History: Diagnosis Date ??? Arthritis ??? Ryan's esophagus ??? Cancer ??? Colon cancer stage 3 ??? Degenerative joint disease ??? Diabetes mellitus ??? High cholesterol ??? Hypertension ??? LBBB (left bundle branch block) ??? Spinal stenosis Social History Socioeconomic History ??? Marital status: Spouse name: Not on file ??? Number of children: Not on file ??? Years of education: Not on file ??? Highest education level: Not on file Occupational History ??? Not on file Tobacco Use ??? Smoking status: Never Passive exposure: Never ??? Smokeless tobacco: Never Substance and Sexual Activity ??? Alcohol use: Yes Alcohol/week: 5.0 standard drinks Types: 5 Glasses of wine per week ??? Drug use: Never ??? Sexual activity: Not Currently Partners: Female Other Topics Concern ??? Not on file Social History Narrative ??? Not on file Social Determinants of Health Financial Resource Strain: Not on file Food Insecurity: Not on file Transportation Needs: Not on file Physical Activity: Not on file Stress: Not on file Social Connections: Not on file Housing Stability: Not on file Past Surgical History: Procedure Laterality Date ??? COLON SURGERY ??? disectomy with cervical implant 02/08/2007 ??? HEMICOLECTOMY Right 07/17/2020 ??? JOINT REPLACEMENT ??? KIDNEY STONE SURGERY 06/09/2009 ??? LAMINECTOMY 02/05/1986 L5-S1 ??? LITHOTRIPSY 05/03/2018 ??? LITHOTRIPSY 06/11/2020 ??? LITHOTRIPSY 03/08/2014 ??? PLANTAR FASCIECTOMY 04/21/2010 spur removal ??? SPINE SURGERY Medications Current Outpatient Medications: ??? acetaminophen (Tylenol) 500 mg tablet, Take 1 tablet by mouth., Disp: , Rfl: ??? atorvastatin (Lipitor) 40 mg tablet, daily., Disp: , Rfl: ??? cyclobenzaprine (Flexeril) 10 mg tablet, cyclobenzaprine 10 mg tablet Take 1 tablet 3 times a day by oral route as needed., Disp: , Rfl: ??? dulaglutide (Trulicity) 0.75 mg/0.5 mL subcutaneous pen injector, Trulicity 0.75 mg/0.5 mL subcutaneous pen injector Inject by subcutaneous route., Disp: , Rfl: ??? empagliflozin (Jardiance) 25 mg tablet, daily., Disp: , Rfl: ??? metFORMIN (Glucophage) 1,000 mg tablet, in the morning and at bedtime., Disp: , Rfl: ??? olmesartan (Benicar) 20 mg tablet, daily., Disp: , Rfl: ??? pantoprazole (Protonix) 40 mg delayed release tablet, , Disp: , Rfl: Allergies Morphine Employment: retired/disabled Living arrangement: with PHYSICAL EXAMINATION Vitals Ht 175.3 cm (5' 9) Wt 98 kg (216 lb) BMI 31.90 kg/m?? Gait: steady Ambulates with cane Neurocutaneous exam: well healed previous surgical incisions Inspection/alignment: No deformity on gross clinical inspection ROM: Flexionreach to knee Extension 20 degrees Tenderness to palpation: right paraspinals Power L R Hip flexors 5 5 Quads 5 5 Tibialis Anterior 5 5 EHL 5 5 Gastrosoleus 5 5 Sensation: intact to light touch throughout Reflexes/UMN signs L R Knee Jerk 2+ 2+ Ankle Jerk 2+ 2+ Clonus Negative Negative Mendez Negative Negative Other Peripheral perfusion: Lower extremities well-perfused distally with palpable pulses and appropriatecapillary refill. Straight Leg Raise Left negative Right negative Hip IR/ER L R WNL WNL Sacroiliac Joints: No positive provacative signs of SIJ dysfunction IMAGING: Lumbar x-rays, 10/02/2022: Lordotic alignment. Instrumentation present at L2-3 without any obvious hardware complication. Loss of disc height at L5-S1. L3-[address] lumbar, 09/01/2022: Solid arthrodesis at L2-3, instrumentation is in good position. L3-4 retrolisthesis. L5-S1 vacuum disc and calcified central disc bulge with postsurgical changes on the left side. MRI lumbar, 09/01/2022: Left-sided lateral recess stenosis at L5-S1 with possible synovial cyst. Postsurgical changes noted at L5-S1. Metal artifact related to L2-3 instrumentation. Multilevel disc degeneration present IMPRESSION/PLAN: 67-year-old male longstanding history of spinal related issues with previous cervical and lumbar surgery. With respect to his lumbar spine, the patient underwent L5-S1 microdiscectomy in the remote past. He additionally underwent L2-3 arthrodesis several years ago. Presents with chief complaint of axial pain that he localizes to the right paraspinal region of the upper lumbar spine in particular with bending and twisting. There is also intermittent radicular pain around the trunk, bilaterally. No significant radicular leg symptoms. No myelopathic symptoms. No red flags. No deficits. Previous documentation has been reviewed. Previous treatments include Medications, physical therapy, injections, none of these modalities areaffording significant relief. Imaging demonstrates solid L2-3 arthrodesis, in addition to diffuse degenerative changes including multilevel degenerative disc disease. There is noted to be postsurgical changes at L5-S1 in additionto calcified central disc bulge and left-sided synovial cyst at this level In my opinion, this patient's symptoms of axial pain that is flexion dominant and precipitated withbending and twisting is likely discogenic pain in origin. That being said, the patient additionallydescribes having pain that radiates around the trunk which may be consistent with thoracic radiculopathy. Given the chronicity of symptoms, I feel that further investigation is warranted. We are arranging for an MRI of the thoracic spine in order to further interrogate this patient's complaints. I will see the patient back in follow-up when his thoracic MRI is completed. documented in this encounter Plan of Treatment Not on file documented as of this encounter Results * MRI Thoracic Spine Wo Contrast (10/28/2022 3:17 PM EDT) Anatomical Region Laterality Modality T-SPINE Magnetic Resonan ce 10/28/2022 3:26 PM EDT Impressions 10/28/2022 3:28 PM EDT IMPRESSION: No evidence of fracture with small central disc protrusions at T6-T7 and T7-T8. No evidence of significant foraminal narrowing in the thoracic spine Piyush Pendleton MD [[facility]], have reviewed the study and agree with the findings in this report. ??10/28/2022 3:28 PM Narrative 10/28/2022 3:28 PM EDT EXAMINATION: MRI THORACIC SPINE WO CONTRAST 10/28/2022 3:17 PM ACCESSION NUMBER: [id number] INDICATION: thoracic radiculopathy. Mid-back pain, thoracic radiculopathy. COMPARISON: None TECHNIQUE: Multiplanar multisequence MRI of the thoracic spine without intravenous contrast. ?? FINDINGS: There is no evidence of fracture. There are small central disc protrusions of T6-T7 and T7-T1 with mild secondary central canal narrowing. There is no evidence of significant foraminal narrowing. Normal thoracic cord signal. No suspicious mass lesion in the fofha-fh-qftb of this examination. Partially visualized cervical and lumbar hardware. Procedure Note Piyush Vazquez MD - 10/28/2022 EXAMINATION: MRI THORACIC SPINE WO CONTRAST 10/28/2022 3:17 PM ACCESSION NUMBER: [id number] INDICATION: thoracic radiculopathy. Mid-back pain, thoracicradiculopathy. COMPARISON: None TECHNIQUE: Multiplanar multisequence MRI of the thoracic spine without intravenous contrast. FINDINGS: There is no evidence of fracture. There are small central disc protrusionsof T6-T7 and T7-T1 with mild secondary central canal narrowing. There is no evidence of significant foraminal narrowing. Normal thoracic cord signal.No suspicious mass lesion in the vojqs-fl-ocwt of this examination.Partially visualized cervical and lumbar hardware. IMPRESSION: No evidence of fracture with small central disc protrusions at T6-T7 andT7-T8. No evidence of significant foraminal narrowing in the thoracic spine Piyush Pendleton MD [[facility]], have reviewed the study and agreewith the findings in this report. 10/28/2022 3:28 PM Dave Moser MD IMG MRI ORDERA BLES * XR Lumbar Spine AP And Lateral (10/02/2022 1:10 PM EDT) Anatomical Region Laterality Modality L-SPINE Computed Radiogr aphy 10/02/2022 1:18 PM EDT Impressions 10/02/2022 1:41 PM EDT IMPRESSION: Uncomplicated L2-L3 posterior and interbody fusion. Mild to moderate degenerative disc disease at L3-L4 with trace retrolisthesis, unchanged. Dictated by: René Eller MD. 10/02/2022 1:18 PM Piyush Pendleton MD [[facility]], have reviewed the study and agree with the findings in this report. ??10/02/2022 1:41 PM Narrative 10/02/2022 1:41 PM EDT EXAMINATION: XR LUMBAR SPINE AP AND LATERAL 10/02/2022 1:11 PM ACCESSION NUMBER: [id number] INDICATION: lumbar pain. lumbar pain. COMPARISON: Lumbar [...] AND LATERAL 10/02/2022 1:11 PM ACCESSION NUMBER: [id number] INDICATION: lumbar pain. lumbar pain. COMPARISON: Lumbar [...] by: René Eller MD. 10/02/2022 1:18 PM I, Piyush Vazquez MD [[facility]], have reviewed the study and agreewith the findings in this report. 10/02/2022 1:41 PM Dave Moser MD IMG DIAGNOSTIC IMAGING ORDERABLES documented in this encounter Visit Diagnoses Diagnosis Lumbar pain- Primary Lumbago Thoracic radiculopathy Thoracic or lumbosacral neuritis or radiculitis, unspecified Lumbar spondylosis Lumbosacral spondylosis without myelopathy Lumbar pain Lumbago Thoracic radiculopathy Thoracic or lumbosacral neuritis or radiculitis, unspecified documented in this encounter Care Teams Fixed Wing Aircraft Crew Chief Relationship Specialty Start Date End Date Felicitas Monaco MD PCP - General Family Medicine 08/18/22 documented as of this encounter
--- OUTSIDE RECORDS SUMMARY | 2024-01-11 21:59 | XMS_ITS | Encounter Summary ---
Author Organization [facility] Address [address] [place] [address] Care Team Providers Care Knockup Worker Name Role Phone Unavailable Primary Care Provider Unavailabl e Reason for Visit * MRI/CAT Scan (Routine) - Closed Specialty Diagnoses / Procedures Referred By Rachid jimenez Referred To Contact Radiology Diagnoses No diagnosis, [facility] Procedures Import Diag L-Spine Self, Referred [address] [place] [id number] Referral ID Status Reason Start Date Expiration Date Visits Re quested Visits Authorized [id number] Closed 08/27/2022 08/27/2023 1 1 Encounter Details Date Type Department Care Team (Latest Contact Info) Description 07/29/2022 8:35 AM EST - 07/29/2022 11:59 PM [facility] Hospital Encounter [facility] Diagnostic Imaging [address] [facility], [address] [address] Self, Referred [address] [place] [phone] No diagnosis, [facility] Discharge Disposition: Home or Self Care Social History Tobacco Use Types Packs/Day Years Used Date Smoking Tobacco: Never Assessed Sex and Gender Information Value Date Recorded Sex Assigned at Not on file Gender Identity Not on file Sexual Orientation Not on file documented as of this encounter Medications at Time of Discharge Medication Sig Dispensed Refills Start Date End Date atorvastatin (Lipitor) 40 mg tablet daily. 10/19/2019 cyclobenzaprine (Flexeril) 10 mg tablet cyclobenzaprine 10 mg tablet Take 1 tablet 3 times a day by oral route as needed. 10/19/2019 dulaglutide (Trulicity) 0.75 mg/0.5 mL subcutaneous pen injector Trulicity 0.75 mg/0.5 mL subcutaneous pen injector Inject by subcutaneous route. 10/19/2019 empagliflozin (Jardiance) 25 mg tablet daily. 10/19/2019 olmesartan (Benicar) 20 mg tablet daily. 10/19/2019 documented as of this encounter Plan of Treatment Not on file documented as of this encounter Procedures Procedure Name Priority Date/Time Associated Diagnosis Comments IMPORT DIAG L-SPINE Routine 07/29/2022 8:35 AM ES T No diagnosis, [facility] documented in this encounter Results * Import Diag L-Spine (07/29/2022 8:35 AM EST) Referred Self IMG IMPORT ORDERABLE S IMPAX IMPORT documented in this encounter Visit Diagnoses Diagnosis No diagnosis, [facility] No diagnosis no diagnosis no diagnosis, [facility] no diagnosis documented in this encounter
--- OUTSIDE RECORDS SUMMARY | 2024-01-11 21:59 | XMS_ITS | Encounter Summary ---
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 male with back pain. Please evaluate for facet injection L3-4 Allergies: Review of patient's allergies indicates: -- Morphine -- Hallucinations, Itching, Nausea And Vomiting and Other (See Comments) -- Event: ?? hallucinations Reason for Visit * Reason Comments Back Pain * Consult and Treat (Routine) - Closed Specialty Diagnoses / Procedures Referred By Rachid jimenez Referred To Contact Neurosurgery Diagnoses Check out comments: Please put on for Dr Alcantara. Please schedule MRI and CT Procedures RETURN PATIENT Felicitas Monaco MD [address] [facility] [address] [place] [address] Deandre Alcantara MD [address] [place] [address] Referral ID Status Reason Start Date Expiration Date Visits Re quested Visits Authorized [id number] Closed 09/22/2022 09/22/2023 1 1 Encounter Details Date Type Department Care Team (Late st Contact Info) Description 09/22/2022 1:30 PM EDT Office Visit Neurosurgery at [facility] [address] [facility] [place] [address] Deandre Alcantara MD [address] [place] [address] 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 No / Unsure 09/22/2022 1:01 PM EDT documented as of this encounter Last Filed Vital Signs Vital Sign Reading Time Taken Comments Blood Pressure 118/71 09/22/2022 1:29 PM EDT Pulse 79 09/22/2022 1:29 PM EDT Temperature - - Respiratory Rate - - Oxygen Saturation - - Inhaled Oxygen Concentration - - Weight 98 kg (216 lb) 09/22/2022 1:29 PM EDT Height 175.3 cm (5' 9.02) 09/22/2022 1:29 PM ED T Body Mass Index 31.88 09/22/2022 1:29 PM EDT documented in this encounter Progress Notes * Deandre Alcantara MD - 09/22/2022 1:30 PM EDT The patient is a very pleasant 67-year-old gentleman has had an L2-L3 fusion at an outside hospital. He has low back pain. I reviewed his imaging including MRI and CT. I do not think additional invasive surgical intervention will provide the relief he is seeking. I think he will benefit from additional non-operative care. The plan is to try L3-L4 facet blocks +/- radiofrequency ablations. Time Factor Billing: The total amount of time spent with the patient was 20 minutes in education, reviewing films, and coordination of care. 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
--- OUTSIDE RECORDS SUMMARY | 2024-01-11 21:59 | XMS_ITS | Referral Summary ---
Author Organization [facility] Address [address] [place] [address] Care Team Providers Care Mixer Helper Name Role Phone NADIA COLMENARES Primary Care Physician Encounter 10/02/21 - 10/02/21 [facility] [address] [place] [address] Discharge Disposition: H Outpt-Sent Home Attending Physician: [...] 0 Refill(s) Start Date: 07/08/20 Status: Ordered Bath 325 mg-5 mg oral tablet 1 tabs, [...]
--- OUTSIDE RECORDS SUMMARY | 2024-01-11 21:59 | XMS_ITS | Clinical Summary ---
Author Organization [facility] Address [address] [place] [address] Care Team Providers Care Tax Associate Attorney Name Role Phone Felicitas Monaco MD Primary Care Provider Unavai lable Allergies Active Allergy Reactions Criticality Noted Date Comments Morphine Hallucinations,Itchi ng,N ausea And Vomiting,Other (See Comments) High 02/14/2015 Event: ?? hallucinations Medications Medication Sig Dispensed Refills Start Date End Date Status empagliflozin (Jardiance) 25 mg tablet daily. 10/19/2019 Active dulaglutide (Trulicity) 0.75 mg/0.5 mL subcutaneous pen injector Trulicity 0.75 mg/0.5 mL subcutaneous pen injector Inject by subcutaneous route. 10/19/2019 Active metFORMIN (Glucophage) 1,000 mg tablet in the morning and at bedtime. 08/17/2022 Active olmesartan (Benicar) 20 mg tablet daily. 10/19/2019 Active pantoprazole (Protonix) 40 mg delayed release tablet 08/17/2022 Active acetaminophen (Tylenol) 500 mg tablet Take 1 tablet by mouth. Active cyclobenzaprine (Flexeril) 10 mg tablet cyclobenzaprine 10 mg tablet Take 1 tablet 3 times a day by oral route as needed. 10/19/2019 Active atorvastatin (Lipitor) 40 mg tablet daily. 10/19/2019 Active Family History Medical History Relation Name Comments Diabetes Maternal Grandmother Mirtha Matson Relation Name Status Comments Maternal Grandmother Mirtha Matson Social History Tobacco Use Types Packs/Day Years Used Date Smoking Tobacco: Never Passive Smoke Exposure: Never Smokeless Tobacco: Never Tobacco Cessation:Counseling Given: Not Answered Alcohol Use Standard Drinks/Week Comments Yes 5 [...] - - Weight 98 kg (216 lb) 11/06/2022 1:10 PM EDT Height 175.3 cm (5' 9) 11/06/2022 1:10 PM EDT Body Mass Index 31.9 11/06/2022 1:10 PM EDT Plan of Treatment Health Maintenance Due Date Last Done Comments HEPATITIS C SCREENING 1955 MEDICARE ANNUAL WELLNESS VISIT 1955 Prostate Cancer Screening Discussion 1955 COLON CANCER SCREENING MONITORING 2002 ZOSTER VACCINE (SHINGRIX) (3 of 3) 07/11/20202019, 04/11/2015 COVID-19 Vaccine ( - 2022-2 4 season) 2023 06/05/2022, 01/16/2021, 09/23/2020, Additional history exists DTAP/TDAP/TD VACCINES (3 - T d or Tdap) 04/12/2023 04/12/2013, 04/27/2011 INFLUENZA VACCINE (#1) 2024 2, 03/14/2021, 03/19/2020, Additional history exists PNEUMOCOCCAL VACCINE: 65+ YEARS Completed 3, 04/30/2010 Care Teams Tax Associate Attorney Relationship Specialty Start Date End Date Felicitas Monaco MD PCP - General Family Medicine 08/18/22
--- OUTSIDE RECORDS SUMMARY | 2024-01-11 21:59 | XMS_ITS | Encounter Summary ---
Author Organization [facility] [place] Address [address] [place] [address] Care Team Providers Care Operations Advisor Name Role Phone Felicitas Monaco MD Primary Care Provider Yonas lester Reason for Referral * Rehabilitation (Routine) - Closed Specialty Diagnoses / Procedures Referred By Contact Referred To Contact Physical Medicine and Rehabilitation Diagnoses Lumbar spondylosis Dave Moser MD [address] [place] [address] Georgi Sheets MD [address] [place] [address] Referral ID Status Reason Start Date Expiration Date V isits Requested Visits Authorized [id number] Closed Specialty Services Required 11/06/2022 11/06/2023 1 1 Scheduling Instructions REASON FOR REFERRAL: Patient is a 67 y.o. male with lumbar spondylosis. eval and treat Reason for Visit * Reason Comments Follow-up MRI f/u Encounter Details Date Type Department Care Team ([facility] st Contact Info) Description 11/06/2022 1:15 PM EDT Office Visit [facility] [address] [place] [address] Dave Moser MD [address] [place] [address] Lumbar spondylosis (Primary Dx); Thoracic spondylosis Social History Tobacco Use Types Packs/Day [...] suspected to have Coronavirus/COVID-19? No / Unsure 11/06/2022 12:49 PM EDT documented as of this encounter [...] Mass Index 31.9 11/06/2022 1:10 PM EDT documented in this encounter Progress Notes * Dave Moser MD - 11/06/2022 1:15 PM EDT 67 y.o. male with a chief of complaint of axial mechanical low back pain which she localizes to theright paraspinal region of the upper lumbar spine. Additional complaints related to intermittent radicular chest wall pain which is bilateral. No radicular leg symptoms. Diagnosis: Prior L2-3 fusion; lumbar spondylosis; thoracic spondylosis Patient is in the office today for follow-up after MRI thoracic. Today, patient states that their symptoms are unchanged compared to the previous visit. PHYSICAL EXAM: Vitals Ht 175.3 cm (5' 9) Wt 98 kg (216 lb) BMI 31.90 kg/m?? Power L R Hip flexors 5 5 Quads 5 5 Tibialis Anterior 5 5 EHL 5 5 Gastrosoleus 5 5 Sensation: intact to light touch throughout IMAGING: MRI thoracic, 10/28/2022: No cord compression. Diffuse spondylotic changes. Small central disc bulges at both T6-7 and T7-8. Lumbar x-rays, 10/02/2022: Lordotic alignment. Instrumentation present at L2-3 without any obvious hardware complication. Loss of disc height at L5-S1. L3-[address] ?? CT lumbar, 09/01/2022: Solid arthrodesis at L2-3, instrumentation is in good position. L3-4 retrolisthesis. L5-S1 vacuum disc and calcified central disc bulge with postsurgical changes on the left side. ?? MRI lumbar, 09/01/2022: Left-sided lateral recess stenosis [...] myelopathic symptoms. No red flags. No deficits. ?? Previous documentation has been reviewed. ?? Previous treatments include Medications, physical therapy, injections, none of these modalities areaffording significant relief. ?? Imaging demonstrates solid L2-3 arthrodesis, in addition to diffuse degenerative changes including multilevel degenerative disc disease. There is noted to be postsurgical changes at L5-S1 in additionto calcified central disc bulge and left-sided synovial cyst at this level. In the thoracic spine there is noted to be spondylotic changes in the absence of cord compression. In my opinion, this patient presents with 2 separate complaints of radicular chest wall pain in addition to the chief complaint of axial flexion dominant low back pain. The flexion dominant low back pain is most likely discogenic pain in origin, and I have counseled the patient that discogenic painis typically most effectively managed through nonoperative means. With respect to the patient's thoracic spine, there is certainly spondylotic changes present, although there is no cord compression. I do not feel that there is anything that is surgically actionable in the thoracic spine. We have recommended a referral to PMR for evaluation and treatment with further nonsurgical modalities. The patient was in agreement this plan. All questions were answered. He may follow-up with myself as needed. documented in this encounter Plan of Treatment Scheduled Referrals Name Type Priority Associated Diagnoses Orde r Schedule Ambulatory referral to Physicial Medicine Rehab Outpatient Referral Routine Lumbar spondylosis Ordered: 11/06/2022 documented as of this encounter Visit Diagnoses Diagnosis Lumbar spondylosis- Primary Lumbosacral spondylosis without myelopathy Thoracic spondylosis documented in this encounter Care Teams Operations Advisor Relationship Specialty Start Date End Date Felicitas Monaco MD PCP - General Family Medicine 08/18/22 documented as of this encounter
--- OUTSIDE RECORDS SUMMARY | 2024-01-11 21:59 | XMS_ITS | Referral Summary ---
Author Organization [facility] Address [address] [facility], [facility] [place] [address] Care Team Providers Care Continuous Vulcanizing Machine Operator Name Role Phone NADIA COLMENARES Primary Care Physician Encounter 07/17/21 - 07/17/21 [facility] [address] [facility], [facility] [place] [address] Admitting Physician: MARIA ELENA WADSWORTH Allergies, Adverse Reactions, Alerts Substance Reaction Severity [...] 07/16/20 Completed Lumbar Epidural Steroid Injection 2 5/22/20 Completed L5-S1 SURGERY 2016 Completed C6-C7 SURGERY [...]
--- OUTSIDE RECORDS SUMMARY | 2024-01-11 21:59 | XMS_ITS | Encounter Summary ---
Author Organization [facility] Address [address] [place] [address] Care Team Providers Care Hvac Project Engineer Name Role Phone Felicitas Monaco MD Primary Care Provider Yonas lester Reason for Visit * Reason Onset Date Comments Symptom Call For Nurse 10/06/2022 Encounter Details Date Type Department Care Team ([facility] st Contact Info) Description 10/06/2022 Telephone [facility] [address] [place], [place] [id number] Dave Moser MD [address] [place], [place] [id number] Symptom Call For Nurse Social History Tobacco Use Types Packs/Day Years [...] encounter Miscellaneous Notes * Telephone Encounter - Jody Bates - 10/06/2022 8:07 AM EDT Symptom Call For Nurse Information obtained from caller: ??? Please describe your symptom(s) and when did they start: patient is in pain, he stated he got hurt again and needs to talk to the nurse as soon as possible to know what else to do. Please advise documented in this encounter Plan of Treatment Not on file documented as of this encounter Visit Diagnoses Not on filedocumented in this encounter Care Teams Hvac Project Engineer Relationship Specialty Start Date End Date Felicitas Monaco MD PCP - General Family Medicine 08/18/22 documented as of this encounter
--- OUTSIDE RECORDS SUMMARY | 2024-01-11 21:59 | XMS_ITS | Referral Summary ---
Author Organization [facility] [address] [address] Care Team Providers Care Mercerizer Machine Operator Name Role Phone NADIA COLMENARES Primary Care Physician [phone] Encounter 07/21/21 - 07/21/21 [facility] [address] [address] Discharge Disposition: H Outpt-Sent Home Attending Physician: MARIA ELENA WADSWORTH Admitting Physician: MARIA ELENA WADSWORTH Referring Physician: MARIA ELENA WADSWORTH Vital Signs Most recent to oldest [Reference Range]: 1 2 Temperature Oral [35.8-37.3 degC] 36.4 d egC (07/21/21 11:16 AM) 36.6 degC (07/21/21 9:05 AM) Heart Rate Monitored [60-100 bpm] 70 bpm (07/21/21 11:36 AM) 74 bpm (07/21/21 11:26 AM) Respiratory Rate [12-20 br/min] 16 br/mi n (07/21/21 11:36 AM) 16 br/min (07/21/21 11:26 AM) Blood Pressure [90-140/60-90 mmHg] 119/7 5mmHg (07/21/21 11:36 AM) 115/74mmHg (07/21/21 11:26 AM) Allergies, Adverse Reactions, Alerts Substance Reaction Severity [...] 0 Refill(s) Start Date: 07/08/20 Status: Ordered [place] 325 mg-5 mg oral tablet 1 tabs, Oral, q4hr, PRN, X 7 days, # 20 tabs, 0 Refill(s), 07/28/21 11:19:00 EST, moderate pain (4-7) Start Date: 07/21/21 Stop Date: 07/28/21 Status: Ordered oxyCODONE 5 mg oral tablet [...] 40; entered on: 07/16/21 Functional Status FUNCTIONAL 07/16/21 Recent Travel History ID No recent trave l Close Contact with COVID-19 ID Preadmiss ion testing patients only Fever OR Chills ID No New or Worsening Cough ID No Diarrhea ID No Myalgia (Muscle Pain) ID No Headache ID No TB Symptom Screen ID No symptoms C. diff Symptom/History ID Neither of th e above Last 14 days COVID-19 ID No Sudden Loss of Taste or Smell ID No Laryngitis ID No Dyspnea ID No Sore Throat ID No Nausea ID No Fatigue ID No COGNITIVE 07/21/21 Orientation Assessment Oriented x 4 Assessment and Plan Extracted from: Title:Admission H & P Author:ELYSE MAGANA Date:07/21/21 Encounter for screening for other viral diseases ??Mr. Paiz had a brief but effective transient response from a corticosteroid injection in the joint. He has a scapholunate advanced collapse. The deformity driving the pain in his left wrist. It is interesting that over 20 years ago he had some form of scapholunate procedure on the right done by Dr. Gordon and that seems to have been durable in terms of pain relief. He lives in [place] part of the year. He is disabled because of chronic spine disease including stenosis but he spends a lot of this time trying to hike and walk to stay fit. He finds the pain in his left wrist bothersome to the point that he wants to consider a surgical solution. Given his findings and options. I think that a proximal row corpectomy is the preferred procedure for this gentleman. I think that his pain appears to be coming from the radiocarpal joint not the CMC joint of the thumb. If he is going to undergo a proximal row correction, a partial denervation by AIN/PIN resection at the same time will supplement this procedure for pain relief. The risks, benefits, indications, and limitations for this were reviewed and he understands and wishes to proceed. ? Hospital Discharge Instructions Patient Education 07/15/2021 18:25:14 OUT PATIENT POST OP (SPLINT) ([id number]) PATIENT INSTRUCTIONS AFTER SURGERY KEEP YOUR HAND ELEVATED. Surgery always results in swelling. Most of the pain and stiffness right after surgery is due to internal pressure from swelling. To relieve the pressure, raise your hand higher than your heart to drain fluid out of your hand. For at least three days after surgery, keep your hand up as much as possible ??? day and night. Elevate your arm on pillows ??? especially when yousleep. Swelling may also make the cast or bandage tight, which will cause more pain and swelling. If you feel that your cast or bandage is too tight, please contact me ??? I would rather change it than for you to have a problem Keep your fingers moving. Try to fully straighten your fingers and make a fist. Motion is good! Avoid strong grasp or heavy lifting. KEEP YOUR BANDAGE DRY. Wounds heal with the fewest problems if they are kept clean and dry. When bathing, protective bandage and a plastic bag. If your bandage gets wet on the inside, it should be changed, not simply allowed to dry. Do not remove your dressing. It is intended to protect the area ofsurgery and should only be removed by your physician. BRUISING OR BLEEDING is common after surgery. Bandages often become stained with blood on the day of surgery. Bruising often worsens several days after surgery. Bruising or bleeding is usually not a source of concern unless accompanied by steady drainage, worsening pain, or progressive swelling. SMOKING interferes with healing and makes painful problems more painful. Problems after surgery aremore likely if you smoke, especially if you keep smoking after surgery. DON???T SMOKE! INFECTION should be suspected if there is redness, pain or swelling that gets worse over the courseof the day or night, despite elevating the hand. Infection is uncommon less than 4 days after surgery or more than 2 weeks after surgery. Please contact me if you have any questions about infection. FOLLOW UP. Sutures will normally be removed at 10-14 days after surgery. Call our office at [phone] to confirm your appointment time if you do not have an appointment already scheduled. Under some circumstances we may wish to see you sooner for a wound check or to initiate early occupational therapy. Your physician will advise you of this is necessary and will make the appropriate arrangements. PLEASE CALL ME IF YOU HAVE ANY QUESTIONS OR PROBLEMS. OUT PATIENT POST OP KYLE WATERS) (FIREME) Out Patient Post Operative Instructions General Information: [...] to your regular diet if no nausea -[place] and spicy foods are not advised Activity [...] the 24hr period call your doctor. Follow Up Care 07/15/2021 18:25:14 With:MARIA ELENA WADSWORTH Address: [address] [facility] [address] [place] [phone] When:Unknown
--- OUTSIDE RECORDS SUMMARY | 2024-01-11 21:59 | XMS_ITS | Referral Summary ---
Author Organization [facility] Address [address] [place] [address] Care Team Providers Care Health Care Consultant Name Role Phone NADIA COLMENARES Primary Care Physician Allergies, Adverse Reactions, Alerts Substance Reaction Severity Status morphine Itching Hallucinations Severe Active Medications aspirin 81 mg oral delayed release tablet 81 mg = 1 tabs, Oral, Daily, BLOOD CLOT PREVENTION, # 14 tabs, 0 Refill(s), Pharmacy: [facility], 1 tabs Oral Daily,x14 days,Instr:BLOOD [...] 0 Refill(s) Start Date: 07/08/20 Status: Ordered [place] 325 mg-5 mg oral tablet 1 tabs, Oral, q4hr, PRN, X 7 days, # 20 tabs, 0 Refill(s), 07/28/21 11:19:00 AM EST, moderate pain (4-7) Start Date: 07/21/21 Stop Date: 07/28/21 Status: Completed [place] 325 mg-7.5 mg oral tablet 1-2 tabs, Oral, q4hr, PRN, X 5 days, # 40 tabs, 0 Refill(s), 10/18/21 11:26:00 AM EDT, Pharmacy: [id number], 1-2 tabs Oral q4hr,x5 days,PRN:severe pain (8-10), [...]
--- OUTSIDE RECORDS SUMMARY | 2024-01-11 21:59 | XMS_ITS | Encounter Summary ---
Author Organization [facility] Address [address] [place] [address] Care Team Providers Care Varnish Cooker Name Role Phone Emma Monaco MD Primary Care Provider Yonas lester Reason for Referral * MRI/CAT Scan (Routine) - Closed Specialty Diagnoses / Procedures Referred By Contac t Referred To Contact Radiology Diagnoses Lumbar adjacent segment disease with spondylolisthesis Procedures CT Lumbar Spine Wo Contrast Cherie Carter FNP [address] [place] [address] Referral ID Status Reason Start Date Expiration Date Visits Re quested Visits Authorized [id number] Closed 08/21/2022 08/21/2023 1 1 * MRI/CAT Scan (Routine) - Closed Specialty Diagnoses / Procedures Referred By Contac t Referred To Contact Radiology Diagnoses Lumbar adjacent segment disease with spondylolisthesis Procedures MRI Lumbar Spine Wo Contrast Cherie Carter FNP [address] [place] [address] Referral ID Status Reason Start Date Expiration Date Visits Re quested Visits Authorized [id number] Closed 08/21/2022 08/21/2023 1 1 Reason for Visit * Reason Comments Thoracic to lumbar pain Images uploading in [facility] * Consult and Treat (Routine) - Closed Specialty Diagnoses / Procedures Referred By Rachid jimenez Referred To Contact Neurosurgery Diagnoses Thoracic to lumbar pain with popping-advised to bring Xray on disc-scheduled with patient Patient is requesting to see Dr. Delatorre Procedures NEW PATIENT Self, Referred Cherie Carter, KANDACE [address] [place] [address] Referral ID Status Reason Start Date Expiration Date Visits Re quested Visits Authorized [id number] Closed 08/21/2022 08/21/2023 1 1 Encounter Details Date Type Department Care Team (Latest Contact Info) Description 08/21/2022 11:00 AM EDT Office Visit Neurosurgery at [facility] [address] [facility] [place] [address] Cherie Carter FNP [address] [place] [address] Lumbar adjacent segment disease with spondylolisthesis (Primary Dx) Social History Tobacco Use Types Packs/Day Years Used Date Smoking Tobacco: Former Tobacco Cessation:Counseling Given: Not Answered Alcohol Use [...] Sign Reading Time Taken Comments Blood Pressure 124/77 08/21/2022 10:47 AM EDT Pulse 88 08/21/2022 10:47 AM EDT Temperature - - Respiratory Rate - - Oxygen Saturation - - Inhaled Oxygen Concentration - - Weight 98.7 kg (217 lb 9.6 oz) 08/21/2022 10:47 AM EDT Height 175.3 cm (5' 9) 08/21/2022 10:47 AM EDT Body Mass Index 32.13 08/21/2022 10:47 AM EDT documented in this encounter Progress Notes * Cherie Carter, DIRECTOR GOVERNMENT - 08/21/2022 11:00 AM EDT Referring Provider: Referred Self No address on file Primary Care Provider: EMMA MONACO MD [address] [facility] [address] [facility] [address] RE: Martínez Toribio 1955 CLINIC: NEUROSURGERY Dear Dr. Monaco: CHIEF COMPLAINT: spine issues HISTORY OF PRESENT ILLNESS: I had the pleasure of seeing Martínez oTribio today in my Neurosurgery Clinic in consultation regarding his spine issues. As you know, he is a very pleasant right handed, 67 y.o. male with mid to low back pain. He states that he feels like he is unstable. He cannot sit without a brace. He has had a left SI joint problem in the past that was treated with an injection. In 2015 he had a L2-3 fusion. He also had a L5-S1 laminectomy in 1983. His pain is worst when he wakes up in the morning. PAST MEDICAL/SURGICAL HISTORY: Past Medical History: Diagnosis Date ??? Arthritis ??? Ryan's esophagus ??? Cancer ??? Colon cancer stage 3 ??? Degenerative joint disease ??? Diabetes mellitus ??? High cholesterol ??? Hypertension ??? LBBB (left bundle branch block) ??? Spinal stenosis Past Surgical History: Procedure Laterality Date ??? COLON SURGERY ??? disectomy with cervical implant 02/08/2007 ??? HEMICOLECTOMY Right 07/17/2020 ??? JOINT REPLACEMENT ??? KIDNEY STONE SURGERY 06/09/2009 ??? LAMINECTOMY 02/05/1986 L5-S1 ??? LITHOTRIPSY 05/03/2018 ??? LITHOTRIPSY 06/11/2020 ??? LITHOTRIPSY 03/08/2014 ??? PLANTAR FASCIECTOMY 04/21/2010 spur removal ??? SPINE SURGERY Social History Tobacco Use ??? Smoking status: Former Substance Use Topics ??? Alcohol use: Yes Alcohol/week: 5.0 standard drinks Types: 5 Glasses of wine per week ??? Drug use: Never Family History Problem Relation Age of Onset ??? Diabetes Maternal Grandmother All pertinent past medical history, past surgical history, social history, and family history were reviewed with the patient in clinic today. Review of Systems All systems were reviewed and are negative except for what is listed in HPI. PHYSICAL EXAM: Vitals: 08/21/22 1047 BP: 124/77 Pulse: 88 Weight: 98.7 kg (217 lb 9.6 oz) Height: 175.3 cm (5' 9) On exam, he is awake, alert, conversive, and in good general appearance. Attention and orientation are normal. Language and memory are normal to conversational testing. Knowledge of the situation is appropriate. Cranial Nerves: ?? Optic (CN2)-Pupils are 3 mm and reactive. ?? Oculomotor (CN3)- Visual atkinson are intact to bedside confrontation. Extraocular movements are intact. ?? Trochlear (CN4)- WNL ?? Trigeminal (CN5)- Facial sensation is equal. ?? Abducens (CN6)- WNL ?? Facial (CN7)- Face is symmetric ?? Vestibular-cochlear (CN8)- Hearing equal. Responds to finger rub test in both ears. ?? Glossopharyngeal (CN9)- Palate elevates midline. ?? Vagus (CN10)- WNL ?? Accessory (CN11)- Shoulder shrug normal. ?? Hypoglossal (CN12)- Tongue protrudes midline He gives me good strength in all four extremities. Tone is normal. Light touch sensation is grosslyintact throughout. Reflexes are 1+. No clonus. Negative Ang's. Gait and station are normal. Strong radial pulse is noted. IMAGING: No new imaging ASSESSMENT / PLAN: Martínez Toribio is a very pleasant 67 y.o. [id number] with low back pain and prior lumbar spine surgeries. I have ordered updated CT and MRI of his lumbar spine today. I have also referred him to our spine surgeons to discuss his options. I warned against wearing the brace all the time as his core and low back muscles will weaken. We have asked him to call our office with any questions or concerns in the interim. Thank you for the opportunity to assist in his care. Sincerely, Monika Carter, MSN, DIRECTOR GOVERNMENT-C Nurse Practitioner Department of Neurosurgery [facility] documented in this encounter Plan of Treatment Not on file documented as of this encounter Results * CT Lumbar Spine [...] WO CONTRAST 09/01/2022 5:07 PM ACCESSION NUMBER: [id number] INDICATION: Low back pain, prior surgery, new [...] WO CONTRAST 09/01/2022 5:07 PM ACCESSION NUMBER: [id number] INDICATION: Low back pain, prior surgery, new [...] Varying degrees of mild degenerative foraminal stenoses. INew MD, have reviewed the study and agree with thefindings in this report. 09/01/2022 9:[address] [facility] IMG CT ORDE RABLAZ * MRI Lumbar Spine Wo Contrast (09/01/2022 [...] WO CONTRAST 09/01/2022 4:43 PM ACCESSION NUMBER: [id number] INDICATION:Low back pain, symptoms persist with > [...] WO CONTRAST 09/01/2022 4:43 PM ACCESSION NUMBER: [id number] INDICATION:Low back pain, symptoms persist with > [...] by: Daniel Gunderson MD. 09/01/2022 4:56 PM IKen MD, have reviewed the study and agree with the findingsin this report. 09/01/2022 5:22 PM Cherie JERONIMO IMG MRI ORD ERABLES documented in this encounter Visit Diagnoses Diagnosis Lumbar adjacent segment disease with spondylolisthesis- Primary Lumbar adjacent segment disease with spondylolisthesis Lumbar adjacent segment disease with spondylolisthesis documented in this encounter Care Teams Varnish Cooker Relationship Specialty Start Date End Date Emma Monaco MD PCP - General Family Medicine 08/18/22 documented as of this encounter
--- OUTSIDE RECORDS SUMMARY | 2024-01-11 21:59 | XMS_ITS | Referral Summary ---
Author Organization [facility] Address [address] [place] [address] Care Team Providers Care Water Resources Engineer Name Role Phone Felicitas Monaco MD [...] (Lipitor) 40 mg tablet daily. 10/19/2019 Active Social History Tobacco Use Types Packs/Day [...] 11/06/2022 1:10 PM EDT Plan of Treatment Not on file Care Teams Water Resources Engineer Relationship Specialty Start Date End Date Felicitas Monaco MD PCP - General Family Medicine 08/18/22
--- OUTSIDE RECORDS SUMMARY | 2024-01-11 21:59 | XMS_ITS | Referral Summary ---
Author Organization [facility] Address [address] [place] [id number] Care Team Providers Care Phosphatic Fertilizer Supervisor Name Role Phone NADIA COLMENARES Primary Care Physician [phone] Encounter 12/21/22 - 12/21/[address] [address] Encounter Diagnosis Unilateral primary osteoarthritis, left knee(Final) - 11/27/22 Attending Physician: Maurice Bello Admitting Physician: Maurice Bello Referring Physician: Maurice Bello Allergies, Adverse Reactions, Alerts Substance Reaction Severity Status morphine Itching Hallucinations Severe Active Medications aspirin 81 mg oral delayed release tablet 81 mg = 1 tabs, Oral, qAM, 0 Refill(s) Start Date: 10/19/19 Status: Ordered aspirin 81 mg oral delayed release tablet 81 mg = 1 tabs, Oral, Daily, BLOOD CLOT PREVENTION, # 14 tabs, 0 Refill(s), Pharmacy: [facility], 1 tabs Oral Daily,x14 [...] 0 Refill(s) Start Date: 07/08/20 Status: Ordered [place] 325 mg-5 mg oral tablet 1 tabs, Oral, q4hr, PRN, X 7 days, # 20 tabs, 0 Refill(s), 07/28/21 11:19:00 EST, moderate pain (4-7) Start Date: 07/21/21 Stop Date: 07/28/21 Status: Completed [place] 325 mg-7.5 mg oral tablet 1-2 tabs, [...]
--- OUTSIDE RECORDS SUMMARY | 2024-01-11 22:00 | XMS_ITS | Continuity of Care Document ---
Author Name [facility] Organization [facility] Care Team Providers Care Online Content Editor Name Role Phone [facility] Unavailable Unavailable Problems Combined list of problems from Department of Defense and Veterans Affairs facilities. It does not include entries that were removed or entered in error. Problem Status Onset Date Problem Type Date of Resolution Comments Source Nonspecific elevation of levels of transaminase and lactic acid dehydrogenase [LDH] Active 8 Condition DoD Solitary pulmonary nodule Active 8 Condition DoD taking aspirin for a long time Active Condition DoD Need For Vaccination Hepatitis A And Hepatitis B Inactive Condition DoD osteoarthritis multiple sites Active Condition DoD Need For Vaccination Against DTP Inactive Condition DoD cervical radiculopathy Active Condition DoD conditions influencing health status Active Condition DoD Physical Examination Inactive Condition DoD Laboratory Studies Active Condition DoD chronic pain Active Condition DoD photodermatitis Inactive Condition DoD Preventive Medicine Established Patient Checkup Adult 40-64 Years Inactive Condition DoD joint pain, localized in the right shoulder Active Condition DoD diabetes mellitus type 2 - uncomplicated, controlled Active Condition DoD hematuria Active Condition DoD skin neoplasm neck benign Inactive Condition DoD Need For Vaccination Pneumococcal Inactive Condition DoD calcaneal spur Active Condition DoD dermatitis Inactive Condition DoD actinic keratosis Inactive Condition DoD visit for: screening exam dermatological disorders Inactive Condition DoD abnormal electrocardiogram Active Condition DoD skin: rash [as Sx] Active Condition DoD foot pain (soft tissue) Active Condition DoD routine history and physical adult (18 - 64 yrs) Inactive Condition DoD backache Inactive Condition DoD abdominal pain Inactive Condition DoD diabetes mellitus Inactive Condition DoD Dietary Counseling Pertaining To Specific Condition Inactive Condition DoD obesity Inactive Condition DoD gastritis Inactive Condition DoD visit for: issue repeat prescription Inactive Condition DoD esophageal reflux Active Condition 1. nexium - to replace2. due for gastric referal DoD nephrolithiasis Active Condition DoD hypertension systemic Active Condition DoD diabetes mellitus type 2 Active Condition 1. follow up every three months2. hga1c 6.5 3. refer to nutriiontis4. stop glucophage - reviewed sugars from hoem had low 50 - may need to restart later5. contiue montiring levels. DoD visit for: issue repeat prescription for medication Inactive Condition DoD glucose intolerance Inactive Condition D oD cervicalgia Active Condition 1. refer to neurosurgen2. trial of mobic3. tylenol daily DoD essential hypertension Inactive Condition [facility] routine history and physical Inactive Condition DoD hyperlipidemia Active Condition DoD visit for: administrative purpose Inactive Condition DoD bursitis heel right Inactive Condition D oD patellar chondromalacia Inactive Condition DoD tendonitis patellar Inactive Condition D oD bursitis anserine Inactive Condition DoD joint pain, localized in the knee Inactive Condition pain possibly due to MMT. Maximum benefit has been achieved with PT.GOALS: Not met.PLAN: STOP PTf/u with PCM and recommend referral to orthopedics. DoD tendonitis rotator cuff Inactive Condition PLAN: We will plan to have the patient continue with his physical therapy exercises at home. The patient can begin very light overhead activities. We will have the patient begin Mobic 15 mg once per day. We will have the patient continue to monitor his DoD Guidance: Concerns About Inadequate Physical Activity Inactive Condition DoD joint pain, localized in the shoulder Inactive Condition DoD Patient Counseling: Inactive Condition D oD presbyopia Active Condition DoD refractive error - hypermetropia Active Condition DoD Medications Combined list of outpatient medications from Department of Defense and Veterans Affairs facilities.Medications provided include 1) outpatient medications from the last 15 months, and 2) patient-reported medications. Medication Details Route Status Patient Instructions Prescription Expires Prescription Number Last Dispense Date Ordering Provider Order Date Order Qty Source AMOXICILLIN (AMOXICILLI N), 500 MG, TABLET, ORAL, [facility] [facility], 100 ea. BOTTLE Active [id number] 4 2023 4 Pharmac y Data Transac tion Service Facilit y atorvastati n 40 mg tablet See Instruct ions, # 90 EA, 1 total refill(s ), Hard Stop Ordered 05/27/2024 90.0 Ambul at ory Pharmac y atorvastati n 40 mg tablet 40 mg, Oral, Daily, # 90 EA, 1 total refill(s ), Hard Stop Oral (given by mouth) Complet ed 08/13/2023 90.0 Ambulat ory Pharmac y Benicar 20 mg tablet See Rx Instruct ions, # 45 EA, 1 total refill(s ), Hard Stop Complet ed 08/13/2023 45.0 Ambulat ory Pharmac y Benicar 20 mg tablet 10 mg, Oral, Daily, # 45 EA, 1 total refill(s ), Hard Stop Oral (given by mouth) Ordered 05/27/2024 45.0 Ambul at ory Pharmac y CELECOXIB (celecoxib) , 200 MG, CAPSULE, ORAL, NIVAGEN PHARMAC, 500 ea. BOTTLE Active [id number] 4 2023 30 Pharmac y Data Transac tion Service Facilit y celecoxib 200 mg capsule See Instruct ions, # 90 EA, 1 total refill(s ), Hard Stop Ordered 09/05/2024 90.0 Ambul at ory Pharmac y celecoxib 200 mg oral capsule TAKE 1 CAPSULE BY MOUTH EVERY DAY, # 90 EA, 1 total refill(s ), Acute Complet ed 05/12/2022 90.0 Ambulat ory Pharmac y cephalexin 500 mg capsule 500 mg, Oral, QID, # 56 EA, 0 total refill(s ), Hard Stop Oral (given by mouth) Ordered 10/25/2024 56.0 Ambul at ory Pharmac y cyclobenzap rine 10 mg tablet See Instruct ions, # 30 EA, 0 total refill(s ), Hard Stop Ordered 01/29/2024 30.0 Ambul at ory Pharmac y cyclobenzap rine 5 mg tablet See Rx Instruct ions, # 10 EA, 0 total refill(s ), Hard Stop Complet ed 09/21/2023 10.0 Ambulat ory Pharmac y dulaglutide 0.75 mg/0.5 mL subcutaneou s solution INJECT 0.75MG (ONE PEN) SUB-CUTA NEOUSLY ONCE A WEEK, # 1.5 mL, 3 total refill(s ), Acute Complet ed 07/16/2022 1.5 Ambulat ory Pharmac y Dulaglutide 3 mg/mL, Injection, 0.5mL Autoinjecto r Refriger ate.Chec k with your doctor before becoming .Store in original package. 12/07/2023 [id number] 2022 6 [facility] Mark ton glucose test strip (freestyle lite) USE DIRECTED 2 TO 3 TIMES DAILY NEEDED, # 300 EA, 3 total refill(s ), Acute Complet ed 06/12/2022 300.0 Ambulat ory Pharmac y HYDROcodone -acetaminop hen 5 mg-325 mg tablet See Rx Instruct ions, # 10 EA, 0 total refill(s ), Hard Stop Complet ed 03/20/2023 10.0 Ambulat ory Pharmac y Jardiance 25 mg tablet See dose instruct ions in comments , # 90 EA, 2 total refill(s ), Acute Complet ed 06/12/2022 90.0 Ambulat ory Pharmac y Jardiance 25 mg tablet 25 mg, Oral, Daily, # 90 EA, 1 total refill(s ), Hard Stop Oral (given by mouth) Ordered 05/27/2024 90.0 Ambul at ory Pharmac y metFORMIN 1000 mg tablet 1000 mg, Oral, BID, # 180 EA, 1 total refill(s ), Hard Stop Oral (given by mouth) Ordered 05/27/2024 180.0 Ambul at ory Pharmac y metFORMIN 1000 mg tablet 1000 mg, Oral, BID, # 180 EA, 1 total refill(s ), Hard Stop Oral (given by mouth) Complet ed 08/13/2023 180.0 Ambulat ory Pharmac y methocarbam ol 750 mg tablet See Instruct ions, # 40 EA, 0 total refill(s ), Hard Stop Ordered 07/05/2024 40.0 Ambul at ory Pharmac y NALOXONE HCL (naloxone HCl), 4 MG, SPRAY, NASAL, PADAGIS, 2 ea. BLIST PACK Active [id number] 4 2023 2 Pharmac y Data Transac tion Service Facilit y olmesartan 20 mg tablet 10 mg, Oral, Daily, # 45 EA, 3 total refill(s ), Hard Stop Oral (given by mouth) Ordered 07/05/2024 45.0 Ambul at ory Pharmac y ondansetron 4 mg tablet See Instruct ions, 0, # 90 EA, 3 total refill(s ), Hard Stop Ordered 07/05/2024 90.0 Ambul at ory Pharmac y OXYCODONE HCL (OXYCODONE HCL), 5 MG, TABLET, ORAL, LESTER PHARMACE, 100 ea. BOTTLE Active [id number] 2023 20 Pharmac y Data Transac tion Service Facilit y OZEMPIC (semaglutid e), 1/0.75 (3), PEN INJCTR, SUBCUT, UYEN NORDISK, 3 ml SYRINGE Active [id number] 2023 3 Pharmac y Data Transac tion Service Facilit y Ozempic 2 mg/1.5 mL inj-pen [1 pen/1.5mL] See Instruct ions, # 1.5 mL, 11 total refill(s ), Hard Stop Notes: refriger ate Discont inued 10/21/2023 1.5 Ambulat ory Pharmac y Ozempic 2 mg/3 mL inj-pen [1pen/3mL] See Instruct ions, SubCutan eous, # 3 mL, 3 total refill(s ), Hard Stop Notes: refriger ate SubCut aneous (under the skin) Discont inued 12/08/2023 3.0 Ambulat ory Pharmac y Ozempic 4 mg/3 mL inj-pen [1pen/3mL] See Instruct ions, # 3 mL, 5 total refill(s ), Hard Stop Notes: refriger ate Discont inued 11/12/2023 3.0 Ambulat ory Pharmac y pantoprazol e 40 mg oral delayed release tablet TAKE 1 TABLET BY MOUTH TWICE A DAY, # 60 EA, 3 total refill(s ), Acute Complet ed 04/06/2022 60.0 Ambulat ory Pharmac y pantoprazol e EC 40 mg tablet 40 mg, Oral, Daily, # 90 EA, 1 total refill(s ), Hard Stop Oral (given by mouth) Ordered 05/27/2024 90.0 Ambul at ory Pharmac y pantoprazol e EC 40 mg tablet 40 mg, Oral, Daily, # 90 EA, 1 total refill(s ), Hard Stop Oral (given by mouth) Complet ed 08/13/2023 90.0 Ambulat ory Pharmac y TIZANIDINE HCL (TIZANIDINE HCL), 2MG, TABLET, ORAL, 'S LAB, 150 ea. BOTTLE Active [id number] 2023 30 Pharmac y Data Transac tion Service Facilit y TIZANIDINE HCL (TIZANIDINE HCL), 4MG, TABLET, ORAL, 'S LAB, 150 ea. BOTTLE Active [id number] 4 2023 30 Pharmac y Data Transac tion Service Facilit y TIZANIDINE HCL (TIZANIDINE HCL), 4MG, TABLET, ORAL, 'S LAB, 150 ea. BOTTLE Active [id number] 2023 30 Pharmac y Data Transac tion Service Facilit y TIZANIDINE HCL (TIZANIDINE HCL), 4MG, TABLET, ORAL, 'S LAB, 150 ea. BOTTLE Active [id number] 2023 30 Pharmac y Data Transac tion Service Facilit y TRAMADOL HCL (tramadol HCl), 50 MG, TABLET, ORAL, [facility], 1000 ea. BOTTLE Active [id number] 2023 20 Pharmac y Data Transac tion Service Facilit y TRAMADOL HCL (tramadol HCl), 50 MG, TABLET, ORAL, [facility], 1000 ea. BOTTLE Active [id number] 4 2023 20 Pharmac y Data Transac tion Service Facilit y TRAMADOL HCL (TRAMADOL HCL), 50MG, TABLET, ORAL, AMNEAL PHARMACE, 1000 ea. BOTTLE Active [id number] 4 2023 20 Pharmac y Data Transac tion Service Facilit y Trulicity Pen 1.5 mg/0.5 mL [4EA=2mL] See Instruct ions, # 6 mL, 1 total refill(s ), Hard Stop Notes: refriger ate Ordered 05/27/2024 6.0 Ambul at ory Pharmac y Trulicity Pen 1.5 mg/0.5 mL [4EA=2mL] See Instruct ions, # 6 mL, 3 total refill(s ), Hard Stop Discont inued 09/06/2023 6.0 Ambulat ory Pharmac y Trulicity Pen 1.5 mg/0.5 mL [4EA=2mL] See dose instruct ions in comments , # 2 mL, 3 total refill(s ), Acute Complet ed 11/04/2022 1.5 Ambulat ory Pharmac y XIFAXAN (RIFAXIMIN) , 550 MG, TABLET, ORAL, SALIX PHARMACEU, 60 ea. BOTTLE Active [id number] 4 2023 42 Pharmac y Data Transac tion Service Facilit y Allergies, Adverse Reactions, Alerts Combined list of allergies from Department of Defense and Veterans Affairs facilities. It does not include entries that were removed or entered in error. Substance Category Reaction Severity Reaction type Status Date Reported Comments Source morphine Propensity to adverse reactions to substance Unknown Active 5 [facility] MORPHINE {Cla } Drug allergy (disorder) Unknown, Other: Sensitivity active 5 [facility] [place] n Immunizations Combined list of available immunizations from the Department of Defense and Veterans Affairs facilities. 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 Source Pneumococcal conjugate PCV20 1 2022 Unknown, Provider [id number] [employer] (PFR) complet ed Pneumococ alexsandra conjugate PCV20 DoD COVID-19, mRNA, LNP-S, bivalent, PF, 30 mcg/0.3 mL dose (Pfizer, 12+ years) 1 2022 Unknown, Provider [id number] [employer] (PFR) complet ed COVID-19, mRNA, LNP-S, bivalent, PF, 30 mcg/0.3 mL dose (Pfizer, 12+ years) DoD influenza, injectable, quadrivalent- pf 2020 Right Arm [id number] Server [employer]ensity ne complet ed influenza , injectabl e, quadrival ent-pf 03/14/21 Given Ambulat ory Pharmac y Influenza, injectable, quadrivalent, preservative free 2020 Unknown, Provider [id number] SmithKline (SKB) complet ed Influenza , injectabl e, quadrival ent, preservat baldo free DoD COVID-19, mRNA, LNP-S, PF, 100 mcg or 50 mcg dose 2020 RFEDO, () Not Given COVID-19, mRNA, LNP-S, PF, 100 mcg or 50 mcg dose DoD COVID-19, mRNA, LNP-S, PF, 100 mcg or 50 mcg dose 2020 WILD, () Not Given COVID-19, mRNA, LNP-S, PF, 100 mcg or 50 mcg dose DoD COVID-19, mRNA, LNP-S, PF, 100 mcg or 50 mcg dose 2020 WILD, () Not Given COVID-19, mRNA, LNP-S, PF, 100 mcg or 50 mcg dose DoD COVID-19, mRNA, LNP-S, PF, 100 mcg or 50 mcg dose 2020 WILD, () Not Given COVID-19, mRNA, LNP-S, PF, 100 mcg or 50 mcg dose DoD zoster recombinant 2019 MARI, () Not Given zoster recombina nt DoD Influenza, injectable, MDCK, preservative free, quadrivalent 2018 FREDO, () Not Given Influenza , injectabl e, MDCK, preservat baldo free, quadrival ent DoD Influenza, inj, MDCK, quadrivalent- pf 2017 171 complet ed Influenza , inj, MDCK, quadrival ent-pf 03/21/18 Given Ambulat ory Pharmac y Influenza, inj, MDCK, quadrivalent- pf 2016 Right Arm [id number] Seqirus complet ed Influenza , inj, MDCK, quadrival ent-pf 04/30/17 Given Ambulat ory Pharmac y Influenza, injectable, Madin Kaylen Canine Kidney, preservative free, quadrivalent 1 2016 Unknown, Provider [id number] Seqirus (SEQ) complet ed Influenza , injectabl e, Madin Kaylen Canine Kidney, preservat baldo free, quadrival ent DoD influenza, seasonal, injectable-pf 2015 Left Arm [id number] Seqirus complet ed influenza , seasonal, injectabl e-pf 03/30/16 Given Ambulat ory Pharmac y Influenza, seasonal, injectable, preservative free 1 2015 Unknown, Provider [id number] Seqirus (SEQ) complet ed Influenza , seasonal, injectabl e, preservat baldo free DoD influenza, seasonal, injectable-pf 2014 Left Arm [id number] CSL Behring complet ed influenza , seasonal, injectabl e-pf 04/11/15 Given Ambulat ory Pharmac y zoster vaccine live 2014 Right Arm [id number] Merck & Company Inc complet ed zoster vaccine live 04/11/15 Given Ambulat ory Pharmac y zoster vaccine, live 1 2014 Unknown, Provider [id number] Merck (MSD) complet ed zoster vaccine, live DoD Influenza, seasonal, injectable, preservative free 1 2014 Unknown, Provider [id number] CSKinsa Inc[employer] Inc. (CSL) complet ed Influenza , seasonal, injectabl e, preservat baldo free DoD tuberculin purified protein derivative 2014 Left Arm [id number] Rylie Wiley complet ed Patient Tolerance : Negative Ambulat ory Pharmac y tuberculin skin test; purified protein derivative solution, intradermal 0 2014 JANEE SINGH [id number] Lisa (PD) complet ed tuberculi n skin test; purified protein derivativ e solution, intraderm al DoD Influenza, seasonal, injectable, preservative free 2013 KATIANA AMOR () Not Given Influenza , seasonal, injectabl e, preservat baldo free DoD hepatitis A-hepatitis B vaccine 2013 Right Arm [id number] GlaxoSmithKli ne complet ed hepatitis A-hepatit is B vaccine 02/16/14 Given Ambulat ory Pharmac y hepatitis A and hepatitis B vaccine 3 2013 Unknown, Provider [id number] KingmanKline (SKB) complet ed hepatitis A and hepatitis B vaccine DoD hepatitis A-hepatitis B vaccine 2013 Right Arm [id number] 104 GlaxoSmithKli ne complet ed hepatitis A-hepatit is B vaccine 09/18/13 Given Ambulat ory Pharmac y hepatitis A and hepatitis B vaccine 2 2013 CHAD PARK [id number] 104 SmithKline (SKB) complet ed hepatitis A and hepatitis B vaccine DoD hepatitis A-hepatitis B vaccine 2013 Right Arm [id number] GlaxoSmithKli ne complet ed hepatitis A-hepatit is B vaccine 08/16/13 Given Ambulat ory Pharmac y hepatitis A and hepatitis B vaccine 1 2013 SUZETTE OROSCO [id number] SmithKline (SKB) complet ed hepatitis A and hepatitis B vaccine DoD tetanus, diphtheria, acellular pertu is 2012 Right Arm [id number] sanofi pasteur complet ed tetanus, diphtheri a, acellular pertussis 04/12/13 Given Ambulat ory Pharmac y tetanus toxoid, reduced diphtheria toxoid, and acellular pertu is vaccine, adsorbed 1 2012 JANEE SINGH [id number] Sanofi Pasteur ([facility]) complet ed tetanus toxoid, reduced diphtheri a toxoid, and acellular pertussis vaccine, adsorbed DoD Influenza, injectable, MDCK-pf 2012 Left Arm [id number] Novartis Pharmaceutica ls complet ed Influenza , injectabl e, MDCK-pf 03/31/13 Given Ambulat ory Pharmac y Influenza, injectable, Madin Kaylen Canine Kidney, preservative free 11 2012 Unknown, Provider [id number] Novartis Pharmaceutica l Ever. (NOV) complet ed Influenza , injectabl e, Madin Shapleigh Canine Kidney, preservat baldo free DoD influenza, seasonal, injectable-pf 2010 Left Arm [id number] 140 sanofi pasteur complet ed influenza , seasonal, injectabl e-pf 04/27/11 Given Ambulat ory Pharmac y tetanus, diphtheria, acellular pertu is 2010 Right Arm [id number] 115 [facility] tetanus, diphtheri a, acellular pertussis 04/27/11 Given Ambulat ory Pharmac y tetanus toxoid, reduced diphtheria toxoid, and acellular pertu is vaccine, adsorbed 1 2010 Unknown, Provider [id number] 115 [facility] (SKB) complet ed tetanus toxoid, reduced diphtheri a toxoid, and acellular pertussis vaccine, adsorbed DoD Influenza, seasonal, injectable, preservative free 1 2010 Unknown, Provider [id number] Sanofi Pasteur ([facility]) complet ed Influenza , seasonal, injectabl e, preservat baldo free DoD pneumococcal polysaccharid e, 23 valent 2009 Left Arm [id number] Merck & Company Inc complet ed pneumococ alexsandra polysacch aride, 23 valent 04/30/10 Given Ambulat ory Pharmac y pneumococcal polysaccharid e vaccine, 23 valent 1 2009 JANEE SINGH [id number] 33 Merck (MSD) complet ed pneumococ alexsandra polysacch aride vaccine, 23 valent DoD influenza, seasonal, injectable 2009 141 Novartis Pharmaceutica ls complet ed influenza , seasonal, injectabl e 03/07/10 Given Ambulat ory Pharmac y influenza virus vaccine,split 2008 Left Arm [id number] sanofi pasteur complet ed influenza virus vaccine,s plit 03/20/09 Given Ambulat ory Pharmac y influenza virus vaccine, split virus (incl. purified surface antigen)-reti red CODE 1 2008 Unknown, Provider [id number] Edis Sanofi Pasteur ([facility]) complet ed influenza virus vaccine, split virus (incl. purified surface antigen)- retired CODE DoD influenza virus vaccine,split 2007 Left Arm [id number] 15 sanofi pasteur complet ed influenza virus vaccine,s plit 05/18/08 Given Ambulat ory Pharmac y influenza virus vaccine, split virus (incl. purified surface antigen)-reti red CODE 1 2007 Unknown, Provider [id number] [facility] ([facility]) complet ed influenza virus vaccine, split virus (incl. purified surface antigen)- retired CODE DoD influenza virus vaccine,split 2007 Left Arm [id number] sanofi pasteur complet ed influenza virus vaccine,s plit 06/23/07 Given Ambulat ory Pharmac y influenza virus vaccine, split virus (incl. purified surface antigen)-reti red CODE 1 2007 Unknown, Provider [id number] Edis Sanofi Pasteur ([facility]) complet ed influenza virus vaccine, split virus (incl. purified surface antigen)- retired CODE DoD influenza virus vaccine,split 2005 Left Arm [id number] sanofi pasteur complet ed influenza virus vaccine,s plit 05/17/06 Given Ambulat ory Pharmac y influenza virus vaccine, split virus (incl. purified surface antigen)-reti red CODE 1 2005 Unknown, Provider [id number] Edis Dunnofi Pasteur ([facility]) complet ed influenza virus vaccine, split virus (incl. purified surface antigen)- retired CODE DoD influenza virus vaccine,split 2004 Right Arm [id number] sanofi pasteur complet ed influenza virus vaccine,s plit 04/21/05 Given Ambulat ory Pharmac y influenza virus vaccine, split virus (incl. purified surface antigen)-reti red CODE 1 2004 Unknown, Provider [id number] Edis Sanofi Pasteur ([facility]) complet ed influenza virus vaccine, split virus (incl. purified surface antigen)- retired CODE [facility] tetanus-dipht h toxoids (Td) adult/adol 2004 Left Arm 09 complet ed tetanus-d iphth toxoids (Td) adult/ado l 07/20/04 Given Ambulat ory Pharmac y tetanus and diphtheria toxoids, adsorbed, preservative free, for adult use (2 Lf of tetanus toxoid and 2 Lf of diphtheria toxoid) 2 2004 Unknown, Provider 09 [place] ([facility]) complet ed tetanus and diphtheri a toxoids, adsorbed, preservat baldo free, for adult use (2 Lf of tetanus toxoid and 2 Lf of diphtheri a toxoid) DoD influenza virus vaccine,split 2003 Left Arm [id number] 15 sanofi pasteur complet ed influenza virus vaccine,s plit 05/16/04 Given Ambulat ory Pharmac y influenza virus vaccine, split virus (incl. purified surface antigen)-reti red CODE 1 2003 Unknown, Provider [id number] 15 Sanofi Pasteur ([facility]) complet ed influenza virus vaccine, split virus (incl. purified surface antigen)- retired CODE DoD influenza virus vaccine,split 2002 Left Thigh [id number] 15 Novartis Pharmaceutica ls complet ed influenza virus vaccine,s plit 05/09/03 Given Ambulat ory Pharmac y influenza virus vaccine, split virus (incl. purified surface antigen)-reti red CODE 1 2002 Unknown, Provider [id number] 15 PowderJect Pharmaceutica ls (PWJ) complet ed influenza virus vaccine, split virus (incl. purified surface antigen)- retired CODE [facility] tetanus-dipht h toxoids (Td) adult/adol 2002 Left Arm [id number] 09 sanofi pasteur complet ed tetanus-d iphth toxoids (Td) adult/ado l 02/02/03 Given Ambulat ory Pharmac y tetanus and diphtheria toxoids, adsorbed, preservative free, for adult use (2 Lf of tetanus toxoid and 2 Lf of diphtheria toxoid) 1 2002 Unknown, Provider [id number] 09 Shaunofi Pasteur ([facility]) complet ed tetanus and diphtheri a toxoids, adsorbed, preservat baldo free, for adult use (2 Lf of tetanus toxoid and 2 Lf of diphtheri a toxoid) DoD influenza virus vaccine, whole virus 2002 Left Arm [id number] sanofi pasteur complet ed influenza virus vaccine, whole virus 06/08/02 Given Ambulat ory Pharmac y influenza virus vaccine, whole virus 1 2002 Unknown, Provider [id number] 16 Sanofi Pasteur ([facility]) complet ed influenza virus vaccine, whole virus DoD influenza virus vaccine, whole virus 2000 [id number] sanofi pasteur complet ed influenza virus vaccine, whole virus 05/20/01 Given Ambulat ory Pharmac y influenza virus vaccine, whole virus 1 2000 Unknown, Provider [id number] 16 Sanofi Pasteur ([facility]) complet ed influenza virus vaccine, whole virus DoD Results Combined list of recent chemistry, hematology and other laboratory results from Department of Defense and Veterans Affairs, ranging from 15 months to all on record, depending upon the facility. Order Name Results Value Reference Range Date Interpretation Specimen Comments Source Immunolo gy/Serol ogy Hepatitis C Ab.EPI NEGATIVE 06/30 Result Comment: INTERPRETAT ION(S): NEGATIVE - Antibodies to HCV were not detected; does not exclude the possibility of exposure to HCV. PRESUMPTIVE POSITIVE - Presumptive evidence of antibodies to HCV. Follow CDC recommendat ions for supplementa l testing. Refer to updated guidance Testing HCV Infection: An Update of Guidance for Clinicians and Laboratoria ns for additional information and recommended HCV testing algorithm (Centers for Disease Control and Prevention, MMWR Early Release / Vol. 62 / October 04, 2012). Notifiable result/cond ition for Local/State department, notify your local public health immediately for proper notificatio n. Testing performed by taylor katz. Performed by: [facility] [address] [place], [place] [phone] [facility] Glucose Lvl 115 mg/dL 60 - 99 06/30 [facility] BUN 19 mg/dL 7 - 18 06/30 H [facility] Sodium 141 mmol/L 136 - 145 06/30 N [facility] Potassium Lvl 4.4 mmol/L 3.5 - 5.1 06/30 N [facility] Chloride 105 mmol/L 98 - 107 06/30 N [facility] CO2 27.8 mmol/L 21.0 - 32.0 06/30 N [facility] AGAP 8.2 mmol/L 5.0 - 15.0 06/30 N [facility] Creatinine Level 1.13 mg/dL 0.55 - 1.30 06/30 N [facility] Calcium 9.3 mg/dL 8.5 - 10.1 06/30 N [facility] BUN/Creat Ratio 17 7 - 25 06/30 N [facility] ALT 63 U/L 14 - 63 06/30 N [facility] AST 22 U/L 15 - 37 06/30 N [facility] Bilirubin Total 0.3 mg/dL 0.2 - 1.0 06/30 N [facility] Alk Phos 83 U/L 46 - 116 06/30 N [facility] Albumin 3.7 g/dL 3.4 - 5.0 06/30 N [facility] Protein Total 6.8 mg/dL 6.4 - 8.2 06/30 N [facility] A/G Ratio 1 meq/L 06/30 [facility] Cholestero l Total 139 mg/dL 06/30 N Interpretiv e Data: Normals based on the National Cholesterol Education Program guidance for desirable levels. TOTAL CHOLESTEROL <200 mg/dL is desirable +200-239 mg/dL is boderline high. [facility] HDL Cholestero l 49 mg/dL 06/30 Interpretiv e Data: Risk Classificat ion: <40 mg/dL = Increased Risk >60 mg/dL = Low Risk [facility] Chol/HDL 3 1 - 6 06/30 N Interpretiv e Data: Risk of Developing CHD Male Female Quantiles CHOL/HDLC RATIO CHOL/HDLC RATIO 5% 2.94 2.57 10% 3.30 2.90 25% 3.95 3.48 50% 4.88 4.23 75% 6.09 5.17 90% 7.30 6.39 95% 8.02 7.25 [facility] LDL 66 mg/dL 06/30 N Interpretiv e Data: Risk Classificat ion: Optimal: <100 mg/dL Near Optimal/Abo ve Optimal: 100-129 mg/dL Borderline High: 130-150 mg/dL High:160-18 9 mg/dL Very High: >/= 190 mg/dL Siemens; National Cholesterol Education Program - Adult Treatment Panel III (NCEP-AT3) [facility] LDL/HDL 1 06/30 [facility] Triglyceri alfred 119 mg/dL 06/30 N Interpretiv e Data: Normal: <150 mg/dL Borderline high: 150 - 199 mg/dL High: 200 - 499 mg/dL Very High: >/= 500 mg/dL *LDL and VLDL are calculated using the Triglycerid e result. If the Triglycerid e result is >400 mg/dL, the LDL and VLDL are not valid and will not be reported. [facility] VLDL 23.8 mg/dL 5.0 - 40.0 06/30 N [facility] HDL/Chol 0.35 % 06/30 [facility] Ur Creat 60 mg/dL 30 - 125 06/30 N [facility] Ur Microalbum in 10.7 mg/dL 1.3 - 20.0 06/30 N [facility] Ur Microalb/U r Creat Ratio 17.8 mcg/mg 1.3 - 30.0 06/30 N Interpretiv e Data: Microalbumi n/Creatinin e Ratio is used to classify patients as being normal (<30MCG/MG Creatinine) , Having Microalbumi trip (30-300MCG/ MG Creatinine) , or having Clinical Albuminuria (>300 MCG/MG Creatinine) . The [place] Diabetes Association position statement on Diabetic Nephropathy states that Microalbumi trip is present if the Microalbumi n/Creatinin e ratio exceeds 30 MCG/MG Creatinine. The classificat ion of a patient should be based upon at least 2 of 3 abnormal results on specimens collected within a 3 to 6 month time frame. [facility] WBC 6.54 10^3/uL 4.23 - 9.24912 06/30 N [facility] RBC 5.13 10^6/uL 4.63 - 6.00883 06/30 N [facility] Hemoglobin 15.7 g/dL 13.7 - 17.5 06/30 N [facility] Hematocrit 46.7 % 40.1 - 51.0 06/30 N [facility] MCV 91.0 fL 79.0 - 92.2 06/30 N [facility] MCH 30.6 pg 25.7 - 32.2 06/30 N [facility] MCHC 33.6 g/dL 32.3 - 36.5 06/30 N [facility] RDW SD 52.7 06/30 [facility] RDW CV 16.2 % 11.6 - 14.4 06/30 H [facility] Platelets 209 10^3/uL 163 - [id number] 06/30 N [facility] MPV 9.8 fL 7.2 - 11.7 06/30 N [facility] Neutrophil % Auto 61.0 % 34.0 - 67.9 06/30 N [facility] Lymphocyte % Auto 25.4 % 21.8 - 53.1 06/30 N [facility] Monocyte % Auto 11.3 % 5.3 - 12.2 06/30 N [facility] Eosinophil % Auto 1.8 % 0.8 - 7.0 06/30 N [facility] Basophil % Auto 0.5 % 0.2 - 1.2 06/30 N [facility] Neutro Absolute 3.99 10^3/uL 1.78 - 5.97060 06/30 N [facility] Lymph Absolute 1.66 10^3/uL 1.32 - 3.20150 06/30 N [facility] Hemat[facility] [place] Absolute 0.74 10^3/uL 0.30 - 0.78840 06/30 N [facility] Eos Absolute 0.12 10^3/uL 0.04 - 0.11946 06/30 N [facility] Baso Absolute 0.03 10^3/uL 0.01 - 0.49813 06/30 N [facility] eGFR CKD EPI 72 mL/min/1 .73_m2 06/30 Interpretiv e Data: Interpretat ions: Estimated Glomerular Filtration Rate (eGFR) calculated using the 2020 Chronic Kidney Disease - Epidemiolog y (CKD-EPI) Collaborati on creatinine equation; units of measure are mL/min/1.73 m2. Results are only valid for adults (>/=18 years) whose serum creatinine is in steady state. eGFR calculation s are not valid for patients with acute kidney injury and for patients on dialysis. Creatinine- based estimates of kidney function may also be inaccurate in patients with reduced creatinine generation due to decreased muscle mass (e.g., malnutritio n, severe hypoalbumin emia, sarcopenia, chronic neuromuscul ar disease, amputations , severe heart failure or liver disease) and in patients with increased creatinine generation due to increased muscle mass (e.g., muscle builders, anabolic steroids) or increased dietary intake. CKD is diagnosed based on abnormaliti es of kidney structure or function, present for >3 months, with implication s for health and disease. CKD is classified and staged based on cause, eGFR and albuminuria (quantified as urine albumin to creatinine ratio). An eGFR >60 mL/min/1.73 m2 in the absence of increased urine albumin excretion or structural abnormaliti es does not represent CKD eGFR, it provides only an estimate of measured GFR within +/- 30% for most patients. As mentioned, nutritional status and muscle mass, among many factors, may lead to inaccuracy in the estimate. Consider ordering the creatinine- cystatin C panel if better accuracy is needed for clinical decision-armaan black. eGFR(mL/min /1.73m2) CKD Stage Interpretat ion >/=90 G1 Normal 60-89 G2 Mild decrease 45-59 G3A Mild to moderate decrease 30-44 G3B Moderate to severe decrease 15-29 G4 Severe decrease <15 G5 Kidney failure [facility] Vit B12 Lvl.LC 514 pg/mL 06/11 [facility] Folate.LC 12.2 ng/mL 01/12 /2023 Result Comment: A serum folate concentrati on of less than 3.1 ng/mL is considered to represent clinical deficiency. Performed At: [address] [id number] Ajit Swift MD [phone] [facility] Ferritin.E PI 206 ng/mL 06/11 Result Comment: INTERPRETAT ION(S): Performed by: [facility] [address] [id number] [place] [phone] [facility] Iron.EPI 97 ug/dL 06/11 Result Comment: INTERPRETAT ION(S): Performed by: [facility] [address] [id number] [place] [phone] [facility] Iron Binding Capacity Total.EPI 283 ug/dL 06/11 [facility] Iron Binding Capacity Unsat.EPI 186 ug/dL 06/11 [facility] Transferri n Saturation .EPI 34 % 06/11 [facility] WBC 5.54 10^3/uL 4.23 - 9.97662 06/11 N [facility] RBC 5.42 10^6/uL 4.63 - 6.27325 06/11 N [facility] Hemoglobin 16.4 g/dL 13.7 - 17.5 06/11 N [facility] Hematocrit 47.7 % 40.1 - 51.0 06/11 N [facility] MCV 88.0 fL 79.0 - 92.2 06/11 N [facility] MCH 30.3 pg 25.7 - 32.2 06/11 N [facility] MCHC 34.4 g/dL 32.3 - 36.5 06/11 N [facility] RDW SD 51.8 06/11 [facility] RDW CV 16.3 % 11.6 - 14.4 06/11 H [facility] Platelets 221 10^3/uL 163 - [id number] 06/11 N [facility] MPV 10.3 fL 7.2 - 11.7 06/11 N [facility] Neutrophil % Auto 57.3 % 34.0 - 67.9 06/11 N [facility] Lymphocyte % Auto 29.6 % 21.8 - 53.1 06/11 N [facility] Monocyte % Auto 10.3 % 5.3 - 12.2 06/11 N [facility] Eosinophil % Auto 2.3 % 0.8 - 7.0 06/11 N [facility] Basophil % Auto 0.5 % 0.2 - 1.2 06/11 N [facility] Neutro Absolute 3.17 10^3/uL 1.78 - 5.64263 06/11 N [facility] Lymph Absolute 1.64 10^3/uL 1.32 - 3.63810 06/11 N [facility] Hematolo [facility] [place] Absolute 0.57 10^3/uL 0.30 - 0.46036 06/11 N [facility] Hemat[facility] Eos Absolute 0.13 10^3/uL 0.04 - 0.73347 06/11 N [facility] Hemat[facility] Baso Absolute 0.03 10^3/uL 0.01 - 0.53627 06/11 N [facility] Encounters Combined list of: 1) Encounters from Department of Veterans Affairs facilities going back up to thelast 18 months. 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 Location Location Details Encounter Type Encounter Number Reason For Visit Attending Provider ADM Date DC Date Status Disposition Source [facility] Batsheva weiss([facility] Optometry Clinic) OUTPATIENT [id number] vision changes GURPREET LUCAS 06/20 Released w/o Limitations [facility] Mark gallo([facility] C Optomet ry Clinic) [facility] [id number] F/U LT KNEE AND LT SHOULDE R LUIS MANUEL HORVATH 04/21 Released w/o Limitations [facility] Mark sabino([facility] F[facility]) [facility] n([facility] Fam Prac Clinic) TELE CONSULT [id number] WANT RESULT OF M.R.I PCM DR ANGY POOLE-KIAN HUSTON 05/13 [facility] Mark sabino([facility]) [facility] TELE CONSULT [id number] MRI LUIS MANUEL TRAVIS 05/18 [facility] Mark sabino([facility] B Fam [facility]) [facility] isela([facility] Orthopedi c Clinic) OUTPATIENT [id number] left shoulde r pain LIANG RICE 07/06 Released with Work/Duty Limitations [facility] Mark gallo([facility] C Orthope [facility] Clinic) [facility] Physical Therapy[facility] OUTPATIENT [id number] left knee pain ASHLEY CARRINGTON R S 07/08 Released w/o Limitations [facility] Mark gallo([facility] C Physica l Therapy ) [facility] n([facility] Physical Therapy) OUTPATIENT [id number] ASHLEY CARRINGTON S 08/03 Released w/o Limitations [facility] Mark gallo([facility] C Physica l Therapy ) [facility] n([facility] Orthopedi c Clinic) OUTPATIENT [id number] fu appt - left shoulde r LIANG Hopkins 08/03 Released with Work/Duty Limitations [facility] Mark gallo([facility] C Orthope dic Clinic) [facility] Orthoped[facility] c Clinic[facility] OUTPATIENT [id number] left knee pain BELEN ARNDT P 08/17 Released w/o Limitations [facility] Mark gallo([facility] C Orthope dic Clinic) [facility] n([facility] Orthopedi c Clinic) OUTPATIENT [id number] L knee pain chronic BELEN ARNDT P 11/03 Released w/o Limitations [facility] Mark gallo([facility] C Orthope dic Clinic) [facility] n([facility] Fam Prac Clinic) TELE CONSULT [id number] LEFT HEEL MARLENI ZAVALETA 03/12 [facility] Mark gallo([facility]) [facility] n([facility]) TELE CONSULT [id number] Rx KERMIT Richardson 03/29 [facility] Mark agllo([facility]) [facility] n([facility]) TELE CONSULT [id number] Team phone- Juanito- JAYLON Rincon 10/27 [facility] Mark gallo([facility]) [facility] n([facility]) OUTPATIENT [id number] physica JAYLON Francis 11/23 Released w/o Limitations [facility] Mark gallo([facility]) [facility] n([facility]) OUTPATIENT [id number] f/u diabete JAYLON Ramos 12/17 Released w/o Limitations [facility] Mark gallo([facility]) [facility] n([facility]) OUTPATIENT [id number] f/u diabete s JAYLON Vaca 01/14 Released w/o Limitations [facility] Mark gallo([facility]) [facility]) OUTPATIENT [id number] needs new script wa taking acifex. MERVIN GONCALVES 03/29 Released w/o Limitations [facility] Mark gallo([facility]) [facility] n([facility]) TELE CONSULT [id number] Medicat ion RefGABI Chi 06/23 [facility] Mark gallo([facility]) [facility] n([facility]) TELE CONSULT [id number] base on FMP Martínez Toribio is the pt and he has light headnes MERVIN Castellanos 07/20 [facility] Mark gallo([facility]) [facility] n([facility]) OUTPATIENT [id number] diabeti c fol up; labs MERVIN Ackerman 07/22 Released w/o Limitations [facility] Mark gallo([facility]) [facility]) OUTPATIENT [id number] med refill MERVIN GONCALVES 08/10 Released w/o Limitations [facility] Mark gallo([facility]) [facility] n([facility]) TELE CONSULT [id number] team phone-- Katina- -Pt having abdomin al upset MERVIN GONCALVES 09/19 [facility] Mark gallo([facility]) [facility] n([facility]) TELE CONSULT [id number] med refills [phone] MARK MONET W 04/17 [facility] Mark gallo([facility]) [facility] n([facility]) TELE CONSULT [id number] med refill BETTE RUSSO 05/14 [facility] Mark sabino([facility]) [facility] n([facility]) OUTPATIENT [id number] lab review MARK MONET W 05/29 Released w/o Limitations [facility] Mark gallo([facility]) [facility] Mark n([facility] Nutrition [facility]) OUTPATIENT [id number] JACK MAC 07/03 Released w/o Limitations [facility] Mark gallo([facility] B Nutriti on Clinic) [facility] n([facility]) TELE CONSULT [id number] glucofa ge refill MARK MONET 10/24 [facility] Mark gallo([facility]) [facility] n([facility]) OUTPATIENT [id number] [facility] Released w/o Limitations [facility] Mark gallo([facility]) [facility] n([facility]) TELE CONSULT [id number] med refill SCOTTIE ANAND 12/07 [facility] Mark sabino([facility]) [facility] n([facility]) TELE CONSULT [id number] Team phone- refill Nexium 20mg, [phone] GABRIELLA RIDER 03/18 Referred for Appointment [facility] Mark gallo([facility]) [facility] n([facility]) TELE CONSULT [id number] EXTREME LOWER ABDOMIN AL PRESSUR E. HAD NORMAL BM TODAY. CALL [phone]. SEJAL POTTER 06/06 Referred- Emergency Department [facility] Mark gallo([facility]) [facility] n([facility]) TELE CONSULT [id number] PER E R HE HAS A 6MM KIDNEY STONE AND NEEDS UROLOGY REF. CALL [phone] RANDY VERONICAFRANK GABRIELLA BROOKLYN 06/07 Referred for Appointment [facility] Mark gallo([facility] B Fam Prac [facility]) [facility] n([facility]) TELE CONSULT [id number] meds out for blood pressur e, diabete s has been w/o for 2 days, refill IESHA Tyson 07/16 Referred for Appointment [facility] Mark gallo([facility] B Fam Prac [facility]) [facility] n([facility]) TELE CONSULT [id number] [employer] pt EST for Sep 16. Pt out of BP medicat ion/[phone] [facility] SCOTTIE ANAND 09/03 Referred for Appointment [facility] Mark gallo([facility] B Fam Prac Clinic) [facility]) OUTPATIENT [id number] EST for labs and medicat ions. Pt states labs done already MARK MONET 09/13 Released w/o Limitations [facility] Mark gallo([facility]) [facility] Cardiolog y Clinic) OUTPATIENT [id number] FEET PAIN MARIE BISWAS 02/10 Released w/o Limitations [facility] Mark gallo([facility] C Cardiol ogy Clinic) [facility] n([facility] Cardiolog y Clinic) TELE CONSULT [id number] PT CALLED AND SAID THAT HE WAS SEEN IN SUMMER GARRICK PAIGE [employer] FOR NANCY CRABTREE 03/19 [facility] Mark sabino([facility] C Cardiol ogy Clinic) [facility] n([facility] Cardiolog y Clinic) OUTPATIENT [id number] MARIE BISWAS 03/24 Released w/o Limitations [facility] Mark gallo([facility] C Cardiol ogy Clinic) [facility] Batsheva weiss([facility] Cardiolog y Clinic) OUTPATIENT [id number] EKG abnorma LIZ Sandoval 03/25 Released w/o Limitations [facility] Mark gallo([facility] C Cardiol ogy Clinic) [facility] Batsheva weiss([facility] Cardiolog y Clinic) TELE CONSULT [id number] [facility] NANCY TREVINO 03/31 [facility] Mark gallo([facility] C Cardiol ogy Clinic) [facility] Batsheva weiss([facility] Cardiolog y Clinic) TELE CONSULT [id number] results in clinica MARIE Johnson 04/02 [facility] Mark gallo([facility] C Cardiol ogy Clinic) [facility] Batsheva weiss([facility] Cardiolog y Clinic) TELE CONSULT [id number] results in clinica MARIE Johnson 04/03 [facility] Mark gallo([facility] C Cardiol ogy Clinic) [facility] Batsheva weiss([facility] Cardiolog y Clinic) TELE CONSULT [id number] PT NEED REFILLS ON THE FOLLOWI NG: ZOCOR20 MG/ NEXIUM 20MG/ LOTREL JOANNA 520MG/ GLU NANCY TREVINO 04/09 [facility] Mark gallo([facility] C Cardiol ogy Clinic) [facility] Batsheva weiss([facility] Dermatolo gy Clinic) OUTPATIENT [id number] skin: a rash [as Sx] FREDRICK WATKINS 04/16 Released w/o Limitations [facility] Mark gallo([facility] C Dermato logy Clinic) [facility] Batsheva weiss([facility] Cardiolog y Clinic) OUTPATIENT [id number] labs/ek g/l foot MARIE BISWAS 04/30 Released w/o Limitations [facility] Mark gallo([facility] C Cardiol ogy Clinic) [facility] Batsheva weiss([facility]) OUTPATIENT [id number] pneumon ia .5cc im l deltoid JANEE SINGH 04/30 Released w/o Limitations [facility] Mark sabino([facility] Occupat [facility]) [facility] [place] [facility] Cardiolog y Clinic) TELE CONSULT [id number] results in clinica l notes MARIE BISWAS 06/26 [facility] Mark gallo([facility] C Cardiol ogy Clinic) [facility] [place] [facility] Dermatolo gy Clinic) OUTPATIENT [id number] LN2 VS FREDRICK GARCIA 06/30 Released w/o Limitations [facility] Mark sabino([facility] Dermato logy Clinic) [facility] [place] [facility] Cardiolog y Clinic) TELE CONSULT [id number] results in clinica l notes. MARIE BISWAS 07/11 [facility] Mark gallo([facility] Cardiol ogy Clinic) [facility] [place] [facility] Cardiolog y Clinic) TELE CONSULT [id number] results in clinica l notes. MARIE BISWAS 07/14 [facility] Mark gallo([facility] Cardiol ogy Clinic) [facility] n([facility] Cardiolog y Clinic) TELE CONSULT [id number] results in clinica l notes MARIE BISWAS 08/22 [facility] Mark gallo([facility] Cardiol ogy Clinic) [facility] [place] [facility] Cardiolog y Clinic) OUTPATIENT [id number] semi annual ck MARIE BISWAS 09/19 Released w/o Limitations [facility] Mark gallo([facility] Cardiol ogy Clinic) [facility] [place] [facility] Cardiolog y Clinic) TELE CONSULT [id number] lab results MARIE BISWAS 09/26 [facility] Mark gallo([facility] Cardiol ogy Clinic) [facility] [place]([facility] Cardiolog y Clinic) TELE CONSULT [id number] appt request LAMONTE MITCHELL 10/16 [facility] Mark gallo([facility] C Cardiol ogy Clinic) [facility] Charlesstefany n([facility]) TELE CONSULT [id number] pt is having surgery and the Dr wants him to go to physica therapy JAMAR Sun 11/18 [facility] Mark gallo([facility] Fam Med MHC Gold) [facility] Batsheva n([facility] Med MHC Gold) TELE CONSULT [id number] patient is request ing joe cornell for physica l therapy ZANAKMLUIS DECKER 11/18 [facility] Mark gallo([facility] Fam Med MHC Gold) [facility] Bats[facility]va n([facility] Fam Med MHC Gold) TELE CONSULT [id number] Orthopa edic results 011 BETTY BISWASANN 11/20 [facility] Mark gallo([facility] Fam Med MHC Gold) [facility] B[facility] n([facility] Med MHC Gold) TELE CONSULT [id number] STEVE MENDENHALL 01/12 [facility] Mark gallo([facility] Fam Med MHC Gold) [facility] Batsheva n([facility] Med MHC Gold) OUTPATIENT [id number] Physica l exam RAFAELA BISWASRYANN 02/25 Released w/o Limitations [facility] Mark gallo([facility] Fam Med MHC Gold) [facility] Batsheva weiss([facility] Med MHC Gold) TELE CONSULT [id number] Notes Entered by: CAROLYN CASTANEDA 22 Sep 2011 1015 ------- ------- ------- ------- -- Orthope dic surgery JAMAR Correia 09/21 [facility] Mark gallo([facility] Fam Med MHC Gold) [facility] n([facility] Fam Med MHC Gold) TELE CONSULT [id number] Notes Entered by: CAROLYN CASTANEDA 13 Oct 2011 1358 ------- ------- ------- ------- -- ReferJAMAR Quinones 10/12 [facility] Mark gallo([facility] Fam Med MHC Gold) [facility] n([facility] Derm[facility]) OUTPATIENT [id number] F/U CONSULT FREDRICK WATKINS 11/11 Released w/o Limitations [facility] Mark gallo([facility] Dermato logy Clinic) [facility] Batsheva isela([facility] Med MHC Blue) TELE CONSULT [id number] Notes Entered by: MAKAYLA BARTON 02 Feb 2013 1041 ------- ------- ------- ------- -- Refill of Meds/ Crestor /Nexium /Janume t and Lotrel/ Cdr Marilee Patient KHUSHBU RAMIREZ Chiquita 02/02 [facility] Mark gallo([facility] Fam Med MHC Blue) [facility] Markstefany weiss([facility] Med MHC Blue) TELE CONSULT [id number] Notes Entered by: GAGE SPENCER 08 Feb 2013 1517 ------- ------- ------- ------- -- PT needs refills QUINN COPE 02/08 [facility] Mark gallo([facility] Fam [facility] Blue) [facility] Markstefany weiss([facility] Med MHC Blue) TELE CONSULT [id number] Notes Entered by: MAKAYLA BARTON 09 Mar 2013 1142 ------- ------- ------- ------- -- Missed appt today at 1125 because he was out of town/Wa nts to be seen today KHUSHBU RAMIREZ Chiquita 03/09 [facility] Mark gallo([facility] Fam Med [facility] Blue) [facility] Batsheva isela([facility] Med MHC Blue) OUTPATIENT [id number] new pt(labs /meds) QUINN COPE 03/14 Released w/o Limitations [facility] Mark gallo([facility] Fam Med MHC Blue) [facility] Batsheva weiss([facility] Med MHC Blue) OUTPATIENT [id number] f/u labs QUINN COPE 03/20 Released w/o Limitations [facility] Mark gallo([facility] Fam Med MHC Blue) [facility] Batsheva isela([facility] Case Managemen t) OUTPATIENT [id number] Notes Entered by: NARESH ADAME 20 Mar 2013 1207 ------- ------- ------- ------- -- cm for dm NARESH EDEN 03/20 Released w/o Limitations [facility] Mark gallo([facility] Case Managem ent) [facility] Mark isela([facility] Med MHC Gold) TELE CONSULT [id number] Notes Entered by: CAROLYN CASTANEDA 05 Apr 2013 1427 ------- ------- ------- ------- -- Request ing joe referra l to neurosu JAMAR Nixon 04/05 [facility] Mark gallo([facility] Med MHC Gold) [facility] isela([facility] Med MHC Gold) OUTPATIENT [id number] MARIE Neri 04/12 Released w/o Limitations [facility] Mark gallo([facility] Med MHC Gold) [facility] Mark isela([facility]) OUTPATIENT [id number] Notes Entered by: JANEE SINGH 12 Apr 2013 0829 ------- ------- ------- ------- -- JANEE Mathias 04/12 Released w/o Limitations [facility] Mark gallo([facility]) [facility] Mark isela([facility] Med MHC Gold) TELE CONSULT [id number] Notes Entered by: TIMA ORDONEZ 19 Apr 2013 0925 ------- ------- ------- ------- -- Pain Special ists 013 MARIE BISWAS 04/19 [facility] Mark gallo([facility] 3Scan Med MHC Gold) [facility] isela([facility] Med MHC Gold) TELE CONSULT [id number] Notes Entered by: MARTHA PINA 01 Jun 2013 0841 ------- ------- ------- ------- -- 11 MAY 2013 [facility] MARIE BISWAS 06/01 [facility] Mark gallo([facility] Med MHC Gold) [facility] Batsheva n([facility] MHC Gold) OUTPATIENT [id number] f/u for lab results MARIE BISWAS 08/16 Released w/o Limitations [facility] Mark gallo([facility] Med MHC Gold) [facility] Bats[place] n([facility]) OUTPATIENT [id number] Notes Entered by: SUZETTE OROSCO 16 Aug 2013 0909 ------- ------- ------- ------- -- TWINRIX SUZETTE OROSCO 08/16 Released w/o Limitations [facility] Mark gallo([facility]) [facility] [place] n([facility]) OUTPATIENT [id number] Notes Entered by: SONIA ROMERO 18 Sep 2013 0721 ------- ------- ------- ------- -- TWINRIX #2 CHAD PARK 09/18 Released w/o Limitations [facility] Mark gallo([facility]) [facility] [place] n([facility] Med MHC Gold) TELE CONSULT [id number] Notes Entered by: CAROLYN CASTANEDA 30 Oct 2013 1007 ------- ------- ------- ------- -- appoint JAMAR Browning 10/30 [facility] Mark gallo([facility] Fam Med MHC Gold) [facility] Mark n([facility] Med MHC Gold) OUTPATIENT [id number] f/u appt. MARIE BISWAS 10/31 Released w/o Limitations [facility] Mark gallo([facility] Fam Med MHC Gold) [facility] B[place] n([facility] Med MHC Gold) TELE CONSULT [id number] Notes Entered by: ZEE COMER 10 Nov 2013 0719 ------- ------- ------- ------- -- lost glucome ter, needs replace silvia JAMAR CASTANEDA 11/10 Medication Refill Forwarded [facility] Mark gallo([facility] Fam Med MHC Gold) [facility] Mark isela([facility]) OUTPATIENT [id number] DIABETE S MELLITU S TYPE 2 - UNCOMPL ICATED, CONTROL LED MARTÍNEZ CHU 12/13 Released w/o Limitations [facility] Mark gallo([facility] Optomet ry Clinic) [facility] isela([facility] Med MHC Gold) TELE CONSULT [id number] Notes Entered by: Toby BOWEN 17 Jan 2014 1345 ------- ------- ------- ------- -- MARIE Olmedo 01/17 [facility] Mark gallo([facility] 3Scan Med MHC Gold) [facility] Markstefany weiss([facility]) OUTPATIENT [id number] Notes Entered by: LISA HO 16 Feb 2014 0816 ------- ------- ------- ------- -- LISA BARTLETT 02/16 Released w/o Limitations [facility] Mark gallo([facility]) [facility] Mark isela([facility] Med MHC Gold) OUTPATIENT [id number] F/U DIABETI C AND MARIE ADAMS 02/19 Released w/o Limitations [facility] Mark gallo([facility] 3Scan Med MHC Gold) [facility] isela([facility] Med MHC Gold) TELE CONSULT [id number] Notes Entered by: CAROLYN CASTANEDA 05 Mar 2014 1348 ------- ------- ------- ------- -- Urology JAMAR Correia 03/05 Referred for Appointment [facility] Mark gallo([facility] Fam Med MHC Gold) [facility] isela([facility] Med MHC Gold) TELE CONSULT [id number] Notes Entered by: MAREN CHAPA 05 Mar 2014 1508 ------- ------- ------- ------- -- Network Results - Radiolo gy 03/03/14 TRUE MARIE 03/05 [facility] Mark gallo([facility] Fam Med MHC Gold) [facility] Batsheva weiss([facility] Med MHC Blue) TELE CONSULT [id number] Notes Entered by: VERONIKA NOYOLA 06 Mar 2014 0952 ------- ------- ------- ------- -- Network Results : Urology 03/05/14 KIRKKURTRACHNAMARIE 03/06 [facility] Mark sabino([facility] Fam Med MHC Blue) [facility] Batsheva weiss([facility] Med MHC Gold) TELE CONSULT [id number] Notes Entered by: SELENA FRANCO 08 Mar 2014 1446 ------- ------- ------- ------- -- Network Results - [facility] 03/03/14 TRUEMARIE 03/08 [facility] Mark gallo([facility] Fam Med MHC Gold) [facility] Markstefany weiss([facility] Med MHC Gold) TELE CONSULT [id number] Notes Entered by: SELENA FRANCO 13 Mar 2014 1606 ------- ------- ------- ------- -- Network Results - [facility] 03/03/14 TRUEMARIE 03/13 [facility] Mark gallo([facility] Fam Med MHC Gold) [facility] Batsheva weiss([facility] Derm[facility]) OUTPATIENT [id number] SKIN NEOPLAS M PADMINIA IN FREDRICK LEE 03/23 Released w/o Limitations [facility] Mark sabino([facility] Dermato logy Clinic) [facility] Batsheva weiss([facility] Derm[facility]) OUTPATIENT [id number] EXCISIO N, LEFT MALAR CHEEK@1 400. FREDRICK WATKINS 04/06 Released w/o Limitations [facility] Mark gallo([facility] Dermato logy Clinic) [facility] Batsheva weiss([facility]) OUTPATIENT [id number] SUTURE REMOVAL FREDRICK WATKINS 04/12 Released w/o Limitations [facility] Mark sabino([facility] Dermato logy Clinic) [facility] Batsheva weiss([facility] Fam Med MHC Blue) TELE CONSULT [id number] Notes Entered by: VERONIKA NOYOLA 16 Apr 2014 1406 ------- ------- ------- ------- -- Network Results : Urology 4 MARIE BISWAS 04/16 [facility] Mark sabino([facility] Fam Med MHC Blue) [facility] Batsheva weiss([facility] Fam Med MHC Gold) OUTPATIENT [id number] *P- f/u MARIE BISWAS 08/01 Released w/o Limitations [facility] Mark sabino([facility] Fam Med MHC Gold) [facility] Batsheva weiss([facility] D[facility]) OUTPATIENT [id number] *P- f/u FREDRICK WATKINS 08/08 Released w/o Limitations [facility] Mark gallo([facility] Dermato logy Clinic) [facility] Batsheva weiss([facility] D[facility]) OUTPATIENT [id number] punch bx, lt nasal dorsum & pulse dye, lt malar cheek @1400 FREDRICK WATKINS 10/02 Released w/o Limitations [facility] Mark sabino([facility] Dermato logy Clinic) [facility] Batsheva weiss([facility] Fam Med MHC Gold) OUTPATIENT [id number] F/U HIGH BLOOD PREES, AND DIABETI C MARIE BISWAS 11/09 Released w/o Limitations [facility] Mark sabino([facility] Fam Med MHC Gold) [facility] Bathseva weiss([facility]) OUTPATIENT [id number] DIABETE S MELLITU S TYPE 2 - UNCOMPL ICATED, CONTROL LED MARTÍNEZ CHU 12/20 Released w/o Limitations [facility] Mark gallo([facility]) [facility] Batsheva n([facility]) OUTPATIENT [id number] Notes Entered by: JANEE SINGH 01 Jan 2015 1205 ------- ------- ------- ------- -- ppd JANEE SINGH 01/01 Released w/o Limitations [facility] Mark gallo([facility]) [facility] n([facility] Fam Med MHC Gold) OUTPATIENT [id number] 3 month diabete s check up MAREI BISWAS 02/13 Released w/o Limitations [facility] Mark gallo([facility] Fam Med MHC Gold) [facility] n([facility] Fam Med MHC Gold) TELE CONSULT [id number] Notes Entered by: BETTY BERMUDEZ 15 Feb 2015 0823 ------- ------- ------- ------- -- CT CHEST MARIE BISWAS 02/15 [facility] Mark gallo([facility] Fam Med MHC Gold) [facility] Mark isela([facility] Fam Med MHC Gold) TELE CONSULT [id number] Notes Entered by: NARESH URBINA 25 Feb 2015 1403 ------- ------- ------- ------- -- NAL JAMAR Correia 02/25 Medication Refill Forwarded [facility] Mark gallo([facility] Fam Med MHC Gold) [facility] isela([facility] Fam Med MHC Gold) TELE CONSULT [id number] Notes Entered by: Toby BOWEN 13 Mar 2015 1425 ------- ------- ------- ------- -- left knee pain MARIE BISWAS 03/13 [facility] Mark gallo([facility] Fam Med MHC Gold) [facility] n([facility] Fam Med MHC Gold) TELE CONSULT [id number] Notes Entered by: ELIZABETH MONTOYA 18 Mar 2015 0825 ------- ------- ------- ------- -- Network Results - Podiatr y 12/31/14 MARIE BISWAS 03/18 [facility] Mark gallo([facility] Fam Med MHC Gold) [facility] Batsheva n([facility] Fam Med MHC Gold) OUTPATIENT [id number] Change in B/P medicat ion F/U Appt. MARIE BISWAS 03/22 Released w/o Limitations [facility] Mark gallo([facility] Fam Med MHC Gold) [facility] isela([facility] Fam Med MHC Gold) TELE CONSULT [id number] Notes Entered by: ELIZABETH MONTOYA 26 Mar 2015 1535 ------- ------- ------- ------- -- Network Results - Pulmona ry 02/20/15 and 03/06/15 MARIE BISWAS 03/26 [facility] Mark gallo([facility] Fam Med MHC Gold) [facility] Mark isela([facility] Fam Med MHC Gold) TELE CONSULT [id number] Notes Entered by: MIQUEL GUTHRIE 01 Apr 2015 0911 ------- ------- ------- ------- -- Medicat ion JAMAR Ng 04/01 Other Not Elsewhere Classified [facility] Mark gallo([facility] Fam Med MHC Gold) [facility] isela([facility] Fam Med MHC Gold) OUTPATIENT [id number] POISON CECELIA MARIE BISWAS 04/04 Released w/o Limitations [facility] Mark gallo([facility] Fam Med MHC Gold) [facility] n([facility] Fam Med MHC Gold) TELE CONSULT [id number] Notes Entered by: ELIZABETH MONTOYA 26 Apr 2015 0954 ------- ------- ------- ------- -- Network Results - Rheum and lab 04/04/15 MARIE BISWAS 04/26 [facility] Mark gallo([facility] Fam Med MHC Gold) [facility] Batsheva weiss([facility] Med MHC Gold) TELE CONSULT [id number] Notes Entered by: ELIZABETH MONTOYA 21 May 2015 1016 ------- ------- ------- ------- -- network results - rheumat ology 05/02/15 MARIE BISWAS 05/21 [facility] Mark gallo([facility] Fam Med MHC Gold) [facility] Mark isela([facility] Med MHC Gold) TELE CONSULT [id number] Notes Entered by: BETTY BERMUDEZ 18 Jun 2015 1526 ------- ------- ------- ------- -- HGBA1C 7.2 STEVE MENDENHALL 06/18 Referred for Appointment [facility] Mark gallo([facility] Fam Med MHC Gold) [facility] Mark isela([facility] Med MHC Gold) OUTPATIENT [id number] *P f/u for diabete s and renew meds. MARIE BISWAS 06/19 Released w/o Limitations [facility] Mark gallo([facility] Fam Med MHC Gold) [facility] Batsheva weiss([facility] Nutrition Clinic) OUTPATIENT [id number] Obesity , unspeci fied LUNDBERG AMBER Justo 06/27 Released w/o Limitations [facility] Mark gallo([facility] Nutriti on Clinic) [facility] Mark isela([facility] Med MHC Gold) TELE CONSULT [id number] Notes Entered by: PHYLLIS DYE 26 Jul 2015 1003 ------- ------- ------- ------- -- JOSE MARIA Soler 07/26 Referred for Appointment [facility] Mark gallo([facility] Fam Med MHC Gold) [facility] isela([facility] Med MHC Gold) TELE CONSULT [id number] Notes Entered by: CAROLYN CASTANEDA 12 Aug 2015 0758 ------- ------- ------- ------- -- JAMAR Painter 08/11 Referred for Appointment [facility] Mark gallo([facility] Fam Med MHC Gold) [facility] Batsheva weiss([facility] 3Scan Med MHC Gold) TELE CONSULT [id number] Notes Entered by: MAREN CHAPA 13 Aug 2015 0844 ------- ------- ------- ------- -- Network Results - Diaz alcazar 08/10/15 MARIE BISWAS 08/12 [facility] Mark gallo([facility] Fam Med MHC Gold) [facility] Batsheva weiss([facility] 3Scan Med MHC Gold) TELE CONSULT [id number] Notes Entered by: NARESH URBINA 13 Aug 2015 1115 ------- ------- ------- ------- -- NARESH Crump 08/12 Immediate Referral [facility] Mark gallo([facility] Fam Med MHC Gold) [facility] Batsheva weiss([facility] 3Scan Med MHC Gold) TELE CONSULT [id number] Notes Entered by: CAROLYN CASTANEDA 15 Aug 2015 0845 ------- ------- ------- ------- -- Medicat ion Concern JAMAR CASTANEDA 08/14 Other Not Elsewhere Classified [facility] Mark gallo([facility] Fam Med MHC Gold) [facility] Batsheva weiss([facility] 3Scan Med MHC Gold) TELE CONSULT [id number] Notes Entered by: CAROLYN CASTANEDA 21 Aug 2015 1108 ------- ------- ------- ------- -- MARIE Gonzalez 08/20 [facility] Mark gallo([facility] Fam Med MHC Gold) [facility] Mark n([facility] 3Scan Med MHC Gold) TELE CONSULT [id number] Notes Entered by: Toby BOWEN 26 Aug 2015 0957 ------- ------- ------- ------- -- FOLLOW UP ER VISIT CALL STEVE OLVERA 08/25 Referred for Appointment [facility] Mark gallo([facility] 3Scan Med MHC Gold) [facility] Markstefany weiss([facility] Med MHC Gold) TELE CONSULT [id number] Notes Entered by: BRITTNEY TALBOT AL L 27 Aug 2015 1228 ------- ------- ------- ------- -- Network Results -Emerge ncy 08/20/ MARIE BISWAS 08/26 [facility] Mark gallo([facility] 3Scan Med MHC Gold) [facility] Batsheva weiss([facility] Med MHC Gold) TELE CONSULT [id number] Notes Entered by: MAREN CHAPA 13 Sep 2015 1012 ------- ------- ------- ------- -- Network Results - Orthope dic 5 MARIE BISWAS 09/12 [facility] Mark gallo([facility] 3Scan Med MHC Gold) [facility] Markstefany weiss([facility] Med MHC Gold) OUTPATIENT [id number] Diabete s check up and med refill MARIE BISWAS 09/19 Released w/o Limitations [facility] Mark gallo([facility] 3Scan Med MHC Gold) [facility] Markstefany weiss([facility] Dermatolo [facility]) OUTPATIENT [id number] concern ing lesions on face and forearm . FREDRICK WATKINS 10/02 Released w/o Limitations [facility] Mark gallo([facility] Dermato logy Clinic) [facility] Markstefany weiss([facility] Med MHC Gold) TELE CONSULT [id number] Notes Entered by: BRITTNEY TALBOT AL L 06 Dec 2015 0920 ------- ------- ------- ------- -- Network Results -Neurol ogy 08/13/15 , 08/19/15 , 09/17/15 MARIE BISWAS 12/05 [facility] Mark gallo([facility] Fam Med MHC Gold) [facility] Batsheva isela([facility] Med MHC Gold) OUTPATIENT [id number] F/U DIABETI C AND MEDS MARIE BISWAS 12/23 Released w/o Limitations [facility] Mark gallo([facility] Fam Med MHC Gold) [facility] Batsheva isela([facility] Med MHC Gold) TELE CONSULT [id number] Notes Entered by: BOB MCGREGOR 31 Dec 2015 0752 ------- ------- ------- ------- -- Medicat ion STEVE Miranda 12/30 Referred for Appointment [facility] Mark gallo([facility] Fam Med MHC Gold) [facility] Batsheva isela([facility] Med MHC Gold) TELE CONSULT [id number] Notes Entered by: Toby BOWEN 05 Feb 2016 0936 ------- ------- ------- ------- -- CT CHEST STEVE OLVERA 02/04 Referred for Appointment [facility] Mark gallo([facility] Med MHC Gold) [facility] Mark isela([facility] Med MHC Gold) OUTPATIENT [id number] disable mayank garcia MARIE BISWAS 02/10 Released w/o Limitations [facility] Mark gallo([facility] Med MHC Gold) [facility] Mark isela([facility] Med MHC Gold) TELE CONSULT [id number] Notes Entered by: BETTY BERMUDEZ 12 Feb 2016 0750 ------- ------- ------- ------- -- CT CHEST STEVE MENDENHALL 02/11 Referred for Appointment [facility] Mark gallo([facility] Fam Med MHC Gold) [facility] Batsheva isela([facility] Med MHC Gold) OUTPATIENT [id number] *P-diab etic checkup /Med. refills MARIE BISWAS 04/01 Released w/o Limitations [facility] Mark gallo([facility] Fam Med MHC Gold) [facility] Mark isela([facility] Med MHC Gold) TELE CONSULT [id number] Notes Entered by: BETTY BERMUDEZ 02 Jul 2016 1039 ------- ------- ------- ------- -- HGBA1C 7 STEVE MENDENHALL Moshe 07/02 Referred for Appointment [facility] Mark gallo([facility] Fam Med MHC Gold) [facility] Med MHC Gold) OUTPATIENT [id number] f/u A1c per MARIE Underwood 07/03 Released w/o Limitations [facility] Mark gallo([facility] Fam Med MHC Gold) [facility] Nutrition [facility]) OUTPATIENT [id number] Other synovit is and tenosyn ovitis, left hand AUGUSTINE ARMSTRONG 07/13 Released w/o Limitations [facility] Mark gallo([facility] Nutriti on Clinic) [facility] Med MHC Gold) TELE CONSULT [id number] Notes Entered by: PHYLLIS DYE 23 Jul 2016 0830 ------- ------- ------- ------- -- ReferSTEVE Ibarra 07/23 Referred for Appointment [facility] Mark gallo([facility] Fam Med MHC Gold) [facility] Mark isela([facility] Med MHC Gold) TELE CONSULT [id number] Notes Entered by: Toby BOWEN 28 Jul 2016 1000 ------- ------- ------- ------- -- CT CHEST STEVE OLVERA 07/28 Referred for Appointment [facility] Mark gallo([facility] Fam Med MHC Gold) [facility] Med MHC Gold) TELE CONSULT [id number] Notes Entered by: BETTY BERMUDEZ 12 Aug 2016 0657 ------- ------- ------- ------- -- CT CHEST STEVE OLVERA 08/12 Referred for Appointment [facility] Mark sabino([facility] Fam Med MHC Gold) [facility] Markstefany weiss([facility] Med MHC Gold) OUTPATIENT [id number] possibl e kidney stone TRUEMARIE 10/06 Released w/o Limitations [facility] Mark sabino([facility] Fam Med MHC Gold) [facility] Markstefany weiss([facility] Med MHC Gold) TELE CONSULT [id number] Notes Entered by: BETTY BERMUDEZ 06 Oct 2016 1216 ------- ------- ------- ------- -- LABWORK /CT SCAN MARIE BISWAS 10/06 [facility] Mark sabino([facility] Fam Med MHC Gold) [facility] Markstefany weiss([facility] Med MHC Gold) OUTPATIENT [id number] LORI Newberry 11/16 Released w/o Limitations [facility] Mark sabino([facility] Fam Med MHC Gold) [facility] Markstefany weiss([facility] Med [employer] Blue) TELE CONSULT [id number] Notes Entered by: SUSANNA GASCA 15 Dec 2016 1330 ------- ------- ------- ------- -- Service not yet rendere d for Orthope dics, Februar y 2016 LORI SHAW 12/15 [facility] Mark sabino([facility] Fam Med MHC Blue) [facility] Markstefany weiss([facility] Dermatolo gy Clinic) OUTPATIENT [id number] Rash and other nonspec ific skin eruptio n CHRISTAL LEDESMA 01/04 Released w/o Limitations [facility] Mark gallo([facility] Dermato logy Clinic) [facility] Batsheva weiss([facility] D[facility]) OUTPATIENT [id number] punch, left cheek CHRISTAL LEDESMA 01/12 Released w/o Limitations [facility] Mark gallo([facility] Dermato logy Clinic) [facility] Fam Med MHC Gold) TELE CONSULT [id number] Notes Entered by: ROMAN JASSO 13 Jan 2017 1334 ------- ------- ------- ------- -- Network Results -gi- LORI SHAW 01/13 [facility] Mark gallo([facility] Fam Med MHC Gold) [facility] Markstefany n([facility] Derm[facility]) OUTPATIENT [id number] suture removal CHRISTAL LEDESMA 01/20 Released w/o Limitations [facility] Mark gallo([facility] Dermato logy Clinic) [facility] Batsheva n([facility] Fam Med MHC Gold) TELE CONSULT [id number] Notes Entered by: ROMAN JASSO 2017 1341 ------- ------- ------- ------- -- Network Results -gi-04/16 LORI SHAW 02/04 [facility] Mark gallo([facility] Fam Med MHC Gold) [facility] Markstefany weiss([facility] Fam Med MHC Gold) OUTPATIENT [id number] diabete s f/u LORI SHAW 02/16 Released w/o Limitations [facility] Mark gallo([facility] Fam Med MHC Gold) [facility] Markstefany n([facility] Derm[facility]) OUTPATIENT [id number] PDT FACE/EA RS to come in at 0800 CHRISTAL LEDESMA 02/19 Released w/o Limitations [facility] Mark gallo([facility] Dermato logy Clinic) [facility] Markstefany weiss([facility] Nutrition [facility]) OUTPATIENT [id number] Type 2 diabete s mellitu s without complic atAUGUSTINE Bermudez 03/02 Released w/o Limitations [facility] Mark gallo([facility] Nutriti on Clinic) [facility] Markstefany n([facility] Fam Med MHC Gold) TELE CONSULT [id number] Notes Entered by: ELICIA OROZCO 11 Mar 2017 1433 ------- ------- ------- ------- -- Network Results -Gastro enterol ogy 02/10/17 LORI SHAW 03/11 [facility] Mark gallo([facility] Fam Med MHC Gold) [facility] Batsheva weiss([facility] Fam Med MHC Gold) TELE CONSULT [id number] Notes Entered by: BRITTNEY TALBOT 17 Mar 2017 1058 ------- ------- ------- ------- -- Network Results -PT 7 LORI SHAW 03/17 [facility] Mark gallo([facility] Fam Med MHC Gold) [facility] OUTPATIENT [id number] 2nd PDT CHRISTAL LEDESMA 04/01 Released w/o Limitations [facility] Mark gallo([facility] Dermato logy Clinic) [facility] Batsheva weiss([facility] Fam Med MHC Gold) TELE CONSULT [id number] Notes Entered by: ELICIA OROZCO 07 Apr 2017 1124 ------- ------- ------- ------- -- Network Results -PT 7 LORI SHAW 04/07 [facility] Mark gallo([facility] Fam Med MHC Gold) [facility] Mark isela([facility] Fam Med MHC Gold) TELE CONSULT [id number] Notes Entered by: DANK GARCIA 16 Apr 2017 1326 ------- ------- ------- ------- -- Network Results - Physicjoe l Therapy 7 LORI SHAW 04/16 [facility] Mark gallo([facility] Fam Med MHC Gold) [facility] isela([facility] Med MHC Blue) TELE CONSULT [id number] Notes Entered by: SUSANNA GASCA 29 Jun 2017 1334 ------- ------- ------- ------- -- Service not yet rendere mayank for [place], 2016 LORI SHAW 06/29 [facility] Mark gallo([facility] Fam Med MHC Blue) [facility] Markstefany n([facility] Med MHC Gold) TELE CONSULT [id number] Notes Entered by: Toby BOWEN 30 Jun 2017 1126 ------- ------- ------- ------- -- STEVE GEORGES 06/30 Referred for Appointment [facility] Mark gallo([facility] Fam Med MHC Gold) [facility] isela([facility] Med MHC Gold) OUTPATIENT [id number] F/U LORI SHAW 07/08 Released w/o Limitations [facility] Mark gallo([facility] Fam Med MHC Gold) [facility] Charlesstefany weiss([facility] Dermatolo [facility]) OUTPATIENT [id number] F/U skin check CHRISTAL LEDESMA 07/09 Released w/o Limitations [facility] Mark gallo([facility] Dermato logy Clinic) [facility] n([facility] Med MHC Gold) TELE CONSULT [id number] Notes Entered by: LORI COULTER 20 Jul 2017 1611 ------- ------- ------- ------- -- Please call patient STEVE OLVERA 07/20 Released w/o Limitations [facility] Mark gallo([facility] Fam Med MHC Gold) [facility] n([facility] Med MHC Gold) TELE CONSULT [id number] Notes Entered by: MIQUEL GUTHRIE 23 Sep 2017 0918 ------- ------- ------- ------- -- Request Diabeti c STEVE Georges 09/23 Referred for Appointment [facility] Mark sabino([facility] Fam Med MHC Gold) [facility] Med MHC Gold) OUTPATIENT [id number] spreadi ng itchy rash lower legs/ I know it's posion LORI Rodriguez 09/27 Released w/o Limitations [facility] Mark gallo([facility] Med MHC Gold) [facility] [employer] Gold) TELE CONSULT [id number] 5 Notes Entered by: Toby MENDENHALL 17 Nov 2018 1214 ------- ------- ------- ------- -- hedis - A1c STEVE MENDENHALL 11/17 Referred for Appointment [facility] Mark gallo([facility] Med MHC Gold) [facility] [employer] Gold) TELE CONSULT [id number] 4 Notes Entered by: Toby MENDENHALL 07 Mar 2019 1157 ------- ------- ------- ------- -- A1c- STEVE Serrano 03/07 Released to Self Care [facility] Mark gallo([facility] Med MHC Gold) [facility] [employer] Gold) TELE CONSULT [id number] Notes Entered by: Toby BOWEN 08 Mar 2020 1133 ------- ------- ------- ------- -- PHILL/ STEVE PLUNKETT 03/08 Released to Self Care [facility] Mark gallo([facility] Fam Med MHC Gold) [facility] [employer]) TELE CONSULT [id number] Notes Entered by: YOHANNES JENSEN 25 Mar 2020 1056 ------- ------- ------- ------- -- VIPUL ASIF 03/25 Referred for Appointment [facility] Mark gallo([facility] Med MHC Blue) [facility] Med [employer] Gold) TELE CONSULT [id number] Notes Entered by: Toby BOWEN 03 Sep 2021 0931 ------- ------- ------- ------- -- STEVE VAZQUEZ 09/03 Other Not Elsewhere Classified [facility] Mark gallo([facility] Med MHC Gold) [facility] Batsheva weiss([facility] Med MHC Gold) TELE CONSULT [id number] 4 Notes Entered by: Toby BOWEN 14 Nov 2021 0910 ------- ------- ------- ------- -- STEVE VAZQUEZ 11/14 Other Not Elsewhere Classified [facility] Mark gallo([facility] MHC Gold) Procedures Combined list of: 1) Procedures from Department of Veterans Affairs facilities going back up to thelast 18 months, not all VA non-surgical procedures are included; 2) All procedures from the Department of Defense facilities. Procedure Procedure Type Code Date Perfomer Comments [facility] lennox No data available for this section [facility] DESTRUCT (EG, LASER SURGERY, ELECTROSURGERY, CRYOSURGERY, CHEMOSURGERY, SURGICAL CURETTEMENT), PREMALIGNANT LESIONS (EG, ACTINIC KERATOSES); 2ND THRU 14 LESIONS, EA (LIST SEP ADDITION CD, 1ST LESION) 2017 DoD PHOTODYNAMIC THERAPY BY EXTERNAL APPLICATION OF LIGHT TO DESTROY PREMALIGNANT LESIONS OF THE SKIN AND ADJACENT MUCOSA WITH APPLICATION AND ILLUMINATION/ACTIVA TION OF PHOTOSENSITIVE DRUG(S), PER DAY 2016 DoD MEDICAL NUTRITION THERAPY; INITIAL ASSESSMENT AND INTERVENTION, INDIVIDUAL, [id number] WITH THE PATIENT, EACH 15 MINUTES 2016 DoD PHOTODYNAMIC THERAPY BY EXTERNAL APPLICATION OF LIGHT TO DESTROY PREMALIGNANT LESIONS OF THE SKIN AND ADJACENT MUCOSA WITH APPLICATION AND ILLUMINATION/ACTIVA TION OF PHOTOSENSITIVE DRUG(S), PER DAY 2016 DoD BIOPSY OF SKIN, SUBCUTANEOUS TISSUE AND/OR MUCOUS MEMBRANE (INCLUDING SIMPLE CLOSURE), UNLESS OTHERWISE LISTED; SINGLE LESION 2016 DoD MEDICAL NUTRITION THERAPY; INITIAL ASSESSMENT AND INTERVENTION, INDIVIDUAL, [id number] WITH THE PATIENT, EACH 15 MINUTES 2016 DoD DESTRUCTION (EG, LASER SURGERY, ELECTROSURGERY, CRYOSURGERY, CHEMOSURGERY, SURGICAL CURETTEMENT), PREMALIGNANT LESIONS (EG, ACTINIC KERATOSES); FIRST LESION 2015 [facility] MEDICAL NUTRITION THERAPY; GROUP (2 OR MORE INDIVIDUAL(S)), EACH 30 MINUTES 2015 [facility] SKIN TEST; TUBERCULOSIS, INTRADERMAL 2014 [facility] DETERMINATION OF REFRACTIVE STATE 2014 [facility] BIOPSY OF SKIN, SUBCUTANEOUS TISSUE AND/OR MUCOUS MEMBRANE (INCLUDING SIMPLE CLOSURE), UNLESS OTHERWISE LISTED; SINGLE LESION 2014 DoD DESTRUCT (EG, LASER SURGERY, ELECTROSURGERY, CRYOSURGERY, CHEMOSURGERY, SURGICAL CURETTEMENT), PREMALIGNANT LESIONS (EG, ACTINIC KERATOSES); 2ND THRU 14 LESIONS, EA (LIST SEP ADDITION CD, 1ST LESION) 2013 DoD REPAIR, COMPLEX, FOREHEAD, CHEEKS, CHIN, MOUTH, NECK, AXILLAE, GENITALIA, HANDS AND/OR FEET; 2.6 CM TO 7.5 CM 2013 [facility] BIOPSY OF SKIN, SUBCUTANEOUS TISSUE AND/OR MUCOUS MEMBRANE (INCLUDING SIMPLE CLOSURE), UNLESS OTHERWISE LISTED; SINGLE LESION 2013 DoD IMMUNIZATION ADMINISTRATION (INCLUDES PERCUTANEOUS, INTRADERMAL, SUBCUTANEOUS, OR INTRAMUSCULAR INJECTIONS); 1 VACCINE (SINGLE OR COMBINATION VACCINE/TOXOID) 2013 [facility] OPHTHALMOLOGICAL SERVICES: MEDICAL EXAMINATION AND EVALUATION WITH INITIATION OF DIAGNOSTIC AND TREATMENT PROGRAM; COMPREHENSIVE, NEW PATIENT, 1 OR MORE VISITS 2013 DoD IMMUNIZATION ADMINISTRATION (INCLUDES PERCUTANEOUS, INTRADERMAL, SUBCUTANEOUS, OR INTRAMUSCULAR INJECTIONS); 1 VACCINE (SINGLE OR COMBINATION VACCINE/TOXOID) 2013 DoD IMMUNIZATION ADMINISTRATION (INCLUDES PERCUTANEOUS, INTRADERMAL, SUBCUTANEOUS, OR INTRAMUSCULAR INJECTIONS); 1 VACCINE (SINGLE OR COMBINATION VACCINE/TOXOID) 2013 [facility] TETANUS, DIPHTHERIA TOXOIDS AND ACELLULAR PERTUSSIS VACCINE (TDAP), WHEN ADMINISTERED TO INDIVIDUALS 7 YEARS OR OLDER, FOR INTRAMUSCULAR USE 2012 [facility] COORDINATED CARE FEE, MAINTENANCE RATE 2012 DoD DESTRUCT (EG, LASER SURGERY, ELECTROSURGERY, CRYOSURGERY, CHEMOSURGERY, SURGICAL CURETTEMENT), PREMALIGNANT LESIONS (EG, ACTINIC KERATOSES); 2ND THRU 14 LESIONS, EA (LIST SEP ADDITION CD, 1ST LESION) 2011 [facility] ELECTROCARDIOGRAM, ROUTINE ECG WITH AT LEAST 12 LEADS; WITH INTERPRETATION AND REPORT 2010 DoD DESTRUCTION (EG, LASER SURGERY, ELECTROSURGERY, CRYOSURGERY, CHEMOSURGERY, SURGICAL CURETTEMENT), PREMALIGNANT LESIONS (EG, ACTINIC KERATOSES); FIRST LESION 2010 DoD PNEUMOCOCCAL POLYSACCHARIDE VACCINE, 23-VALENT (PPSV23), ADULT OR IMMUNOSUPPRESSED PATIENT DOSAGE, WHEN ADMINISTERED TO INDIVIDUALS 2 YEARS OR OLDER, FOR SUBCUTANEOUS OR INTRAMUSCULAR USE 2009 DoD DESTRUCTION (EG, LASER SURGERY, ELECTROSURGERY, CRYOSURGERY, CHEMOSURGERY, SURGICAL CURETTEMENT), OF BENIGN LESIONS OTHER THAN SKIN TAGS OR CUTANEOUS VASCULAR PROLIFERATIVE LESIONS; UP TO 14 LESIONS 2009 DoD FOOT EXAMINATION PERFORMED (INCLUDES EXAMINATION THROUGH VISUAL INSPECTION, SENSORY EXAM WITH MONOFILAMENT, AND PULSE EXAM - REPORT WHEN ANY OF THE 3 COMPONENTS ARE COMPLETED) (DM) 2009 DoD TELE ASSESS & MGT SRV PROV QUAL NONPHYS HLTH CARE PRO TO EST PAT,PARENT,GUARD NOT ORIG REL ASSESS & MGT SRV PROV W/IN PREV 7 DAYS NOR LEAD ASSESS & MGT SRV/PX W/IN NXT 24 HR/SOON APT;5-10 MIN MED DIS 2009 DoD TELE ASSESS & MGT SRV PROV QUAL NONPHYS HLTH CARE PRO TO EST PAT,PARENT,GUARD NOT ORIG REL ASSESS & MGT SRV PROV W/IN PREV 7 DAYS NOR LEAD ASSESS & MGT SRV/PX W/IN NXT 24H/SOON APT; 11-20 MIN MED DIS 2009 DoD TELE ASSESS & MGT SRV PROV QUAL NONPHYS HLTH CARE PRO TO EST PAT,PARENT,GUARD NOT ORIG REL ASSESS & MGT SRV PROV W/IN PREV 7 DAYS NOR LEAD ASSESS & MGT SRV/PX W/IN NXT 24 HR/SOON APT;5-10 MIN MED DIS 2008 DoD TELE ASSESS & MGT SRV PROV QUAL NONPHYS HLTH CARE PRO TO EST PAT,PARENT,GUARD NOT ORIG REL ASSESS & MGT SRV PROV W/IN PREV 7 DAYS NOR LEAD ASSESS & MGT SRV/PX W/IN NXT 24 HR/SOON APT;5-10 MIN MED DIS 2008 DoD TELE ASSESS & MGT SRV PROV QUAL NONPHYS HLTH CARE PRO TO EST PAT,PARENT,GUARD NOT ORIG REL ASSESS & MGT SRV PROV W/IN PREV 7 DAYS NOR LEAD ASSESS & MGT SRV/PX W/IN NXT 24 HR/SOON APT;5-10 MIN MED DIS 2008 DoD MEDICAL NUTRITION THERAPY; GROUP (2 OR MORE INDIVIDUAL(S)), EACH 30 MINUTES 2008 DoD TELE ASSESS & MGT SRV PROV QUAL NONPHYS HLTH CARE PRO TO EST PAT,PARENT,GUARD NOT ORIG REL ASSESS & MGT SRV PROV W/IN PREV 7 DAYS NOR LEAD ASSESS & MGT SRV/PX W/IN NXT 24H/SOON APT; 11-20 MIN MED DIS 2007 DoD TELE ASSESS & MGT SRV PROV QUAL NONPHYS HLTH CARE PRO TO EST PAT,PARENT,GUARD NOT ORIG REL ASSESS & MGT SRV PROV W/IN PREV 7 DAYS NOR LEAD ASSESS & MGT SRV/PX W/IN NXT 24 HR/SOON APT;5-10 MIN MED DIS 2007 DoD ARTHROCENTESIS, ASPIRATION AND/OR INJECTION, MAJOR JOINT OR BURSA (EG, SHOULDER, HIP, KNEE, SUBACROMIAL BURSA); WITHOUT ULTRASOUND GUIDANCE 2005 DoD PHYSICAL THERAPY RE-EVALUATION 2005 DoD UNLISTED THERAPEUTIC PROCEDURE (SPECIFY) 2005 DoD ARTHROCENTESIS, ASPIRATION AND/OR INJECTION, MAJOR JOINT OR BURSA (EG, SHOULDER, HIP, KNEE, SUBACROMIAL BURSA); WITHOUT ULTRASOUND GUIDANCE 2005 DoD NONINVASIVE EAR OR PULSE OXIMETRY FOR OXYGEN SATURATION; SINGLE DETERMINATION 2004 DoD ELECTROCARDIOGRAM, ROUTINE ECG WITH AT LEAST 12 LEADS; WITH INTERPRETATION AND REPORT 2004 [facility] FITTING OF SPECTACLES, EXCEPT FOR APHAKIA; MONOFOCAL 2004 [facility] INJECTION, TRIAMCINOLONE ACETONIDE, NOT OTHERWISE SPECIFIED, 10 MG 2002 DoD NONINVASIVE EAR OR PULSE OXIMETRY FOR OXYGEN SATURATION; SINGLE DETERMINATION 2001 [facility] DETERMINATION OF REFRACTIVE STATE 2000 [facility] Dermatological Surgery Electrode & Curettage Second Lesion Dermatological Surgery Electrodess & Curettage Second Lesion [id number] 2017 CHRISTAL LEDESMA [facility] Destruction Of Premalignant Lesion By Any Method One Lesion Destruction Of Premalignant Lesion By Any Method One Lesion 91052 2017 CHRISTAL LEDESMA [facility] Photodynamic Therapy By External Light 2016 CHRISTAL LEDESMA [facility] Medical Nutrition Therapy Initial A e ment And Intervention Each 15 Minutes Medical Nutrition Therapy Initial Assessment And Intervention Each 15 Minutes [id number] 2016 AUGUSTINE ARMSTRONG Photodynamic Therapy By External Light 2016 CHRISTAL LEDESMA Biopsy Skin Biopsy Skin 15586 2016 CHRISTAL LEDESMA Medical Nutrition Therapy Initial A e ment And Intervention Each 15 Minutes Medical Nutrition Therapy Initial Assessment And Intervention Each 15 Minutes [id number] 2016 AUGUSTINE ARMSTRONG Destruction Of Premalignant Lesion By Any Method One Lesion Destruction Of Premalignant Lesion By Any Method One Lesion 62224 2015 FREDRICK WATKINS Medical Nutrition Therapy Group (2 or More Individuals) Each 30 Minutes Medical Nutrition Therapy Group (2 or More Individuals) Each 30 Minutes [id number] 2015 AMBER LUNDBERG Skin Test Anergy Tuberculin Intradermal Skin Test Anergy Tuberculin Intradermal 67313 2014 JANEE [facility] IPPD; Series #: 1; .1 mL; ID; Left Arm; Mfg: [employer]; Lot: [id number]. [facility] Determination Of Refractive State Determination Of Refractive State 09077 2014 [facility] Ophthalmological Prior Patient Start Comprehensive Care Ophthalmological Prior Patient Start Comprehensive Care 32592 2014 [facility] Biopsy Skin Biopsy Skin 96534 2014 FREDRICK WATKINS Integumentary Procedures (Therapeutic) Integumentary Procedures (Therapeutic) 90599 2014 FREDRICK WATKINS Destruct Of Premalignant Lesion By Any Method 2nd Through 14 Destruct Of Premalignant Lesion By Any Method 2nd Through 14 06906 2013 FREDRICK WATKINS Destruction Of Premalignant Lesion By Any Method One Lesion Destruction Of Premalignant Lesion By Any Method One Lesion 15216 2013 FREDRICK WATKINS Postoperative Visit, Without Charge Postoperative Visit, Without Charge 74883 2013 FREDRICK WATKINS Complex Repair Of Wound Cheek 2.6 to 7.5 cm Complex Repair Of Wound Cheek 2.6 to 7.5 cm 90465 2013 FREDRICK WATKINS Excision Of Lesion Face Malignant 1.1 to 2cm Excision Of Lesion Face Malignant 1.1 to 2cm 08942 2013 FREDRICK WATKINS Biopsy Skin Biopsy Skin [id number] 10/24/ 2014 FREDRICK WATKINS DoD Immunization Administration By Injection, One Vaccine Immunization Administration By Injection, One Vaccine 54069 2013 LISA HO DoD Hepatitis A And Hepatitis B (Intramuscular Use) Adult Dosage Hepatitis A And Hepatitis B (Intramuscular Use) Adult Dosage 21409 2013 LISA HO Hep A - Hep B (Twinrix); Series #: 3; 1.0 mL; IM; Right Arm; Mfg: [employer] ; Lot: [id number]; VIS given (Syeda: 03/24/11; 07/12/11). [facility] Ophthalmological New Patient Start Comprehensive Care Ophthalmological New Patient Start Comprehensive Care 15600 2013 MARTÍNEZ CHU DoD Immunization Administration By Injection, One Vaccine Immunization Administration By Injection, One Vaccine 92264 2013 CHAD PARK DoD Hepatitis A And Hepatitis B (Intramuscular Use) Adult Dosage Hepatitis A And Hepatitis B (Intramuscular Use) Adult Dosage 34863 2013 CHAD PARK Hep A - Hep B (Twinrix); Series #: 2; 1.0 mL; IM; Right Arm; Mfg: [employer] ; Lot: [id number]; VIS given (Syeda: 03/24/11; 07/12/11). DoD Immunization Administration By Injection, One Vaccine Immunization Administration By Injection, One Vaccine [id number] SUZETTE OROSCO [facility] Hepatitis A And Hepatitis B (Intramuscular Use) Adult Dosage Hepatitis A And Hepatitis B (Intramuscular Use) Adult Dosage 87161 2013 SUZETTE OROSCO Hep A - Hep B (Twinrix); Series #: 1; 1.0 mL; IM; Right Arm; Mfg: [employer] ; Lot: [id number]; VIS given (Syeda: 03/24/11; 07/12/11). DoD Immunization Administration By Injection, One Vaccine Immunization Administration By Injection, One Vaccine [id number] JANEE SINGH [facility] Tdap Vaccine Tdap Vaccine 04803 2012 JANEE SINGH Tdap; Series #: 1; .5 mL; IM; Right Arm; Mfg: [employer]; Lot: [id number]; VIS given (Syeda: 10/16/12). [facility] Coordinated care fee, maintenance rate 2012 NARESH EDEN [facility] Case Management, each 15 minutes 2012 NARESH EDEN Destruct Of Premalignant Lesion By Any Method 2nd Through 14 2011 FREDRICK WATKINS Destruction Of Premalignant Lesion By Any Method One Lesion 2011 FREDRICK WATKINS ECG 12-Lead With Interpretation And Report ECG 12-Lead With Interpretation And Report [id number] 2010 BHAVIKRACHNAMARIE Destruct Of Premalignant Lesion By Any Method 2nd Through 14 2010 FREDRICK WATKINS Destruction Of Premalignant Lesion By Any Method One Lesion 2010 FREDRICK WATKINS Pneumococcal Polysaccharide Vaccine 23 Valent Intramuscular Pneumococcal Polysaccharide Vaccine 23 Valent Intramuscular 94914 2009 JANEE SINGH Immunization Administration By Injection, One Vaccine Immunization Administration By Injection, One Vaccine 06117 2009 JANEE SINGH Destruction Of Benign Lesion By Any Method 2009 FREDRICK WATKINS Preventive Medicine: Foot Examination Preventive Medicine: Foot Examination 2009 MARK MONET [facility] Non-Physician Phone Call To Patient/Provider Brief (5-10min) Non-Physician Phone Call To Patient/Provider Brief (5-10min) [id number] 2009 IESHA MORTON [facility] Non-Physician Phone Call To Pt/Provider Intermed (11-20 min) Non-Physician Phone Call To Pt/Provider Intermed (11-20 min) [id number] 2009 GABRIELLA JACOB WVIsela [facility] Non-Physician Phone Call To Patient/Provider Brief (5-10min) Non-Physician Phone Call To Patient/Provider Brief (5-10min) [id number] 2008 GABRIELLA JACOB [facility]VI[place]a [facility] Non-Physician Phone Call To Patient/Provider Brief (5-10min) Non-Physician Phone Call To Patient/Provider Brief (5-10min) [id number] 2008 SCOTTIE ANAND Non-Physician Phone Call To Patient/Provider Brief (5-10min) Non-Physician Phone Call To Patient/Provider Brief (5-10min) 41854 2008 BETTE RUSSO [facility] Medical Nutrition Therapy Group (2 or More Individuals) Each 30 Minutes Medical Nutrition Therapy Group (2 or More Individuals) Each 30 Minutes 63814 2008 JACK MAC [facility] Non-Physician Phone Call To Pt/Provider Intermed (11-20 min) Non-Physician Phone Call To Pt/Provider Intermed (11-20 min) 57238 2007 BETTE RUSSO Non-Physician Phone Call To Patient/Provider Brief (5-10min) Non-Physician Phone Call To Patient/Provider Brief (5-10min) 05230 2007 BETTE RUSSO [facility] Arthrocentesis Injection Of Bursa Of Major Joint Arthrocentesis Injection Of Bursa Of Major Joint 03835 2005 BELEN ARNDT [facility] Physical Therapy Service Re-Evaluation Physical Therapy Service Re-Evaluation 12047 2005 SAM CARRINGTON [facility] Physician Supervised Services Provision Of Special Supplies Physician Supervised Services Provision Of Special Supplies 65439 2005 SAM CARRINGTON [facility] Physical Therapy - Unlisted Therapeutic Procedure Physical Therapy - Unlisted Therapeutic Procedure 66904 2005 SAM CARRINGTON [facility] Physical Therapy Service Evaluation Physical Therapy Service Evaluation 46301 2005 SAM CARRINGTON [facility] Corticosteroids Injection Intraarticular Subacromial Bursa Corticosteroids Injection Intraarticular Subacromial Bursa 70629 2005 LIANG RICE [facility] Ophthalmological New Patient Start Comprehensive Care Ophthalmological New Patient Start Comprehensive Care 69216 GURPREET LUCAS [facility] Determination Of Refractive State Determination Of Refractive State 18458 GURPREET LUCAS [facility] Spectacles Services Fitting Monofocal Except For Aphakia Spectacles Services Fitting Monofocal Except For Aphakia 61160 GURPREET LUCAS [facility] Social History Combined list of available smoking, tobacco, and other social history from [facility] facilities. Social History Type Response Date Comment Sourc e This section is an empty social history section. [facility] Assessment and Plan Combined list of future care activities from [facility] Defense and [facility] facilities (e.g., assessment and plan notes, appointments, orders, and referrals). Additional future care activities may be listed in the Plan of Care section. Result Assessment and Plan Date Source Assessment and Plan No data available for this section 01/12/2024 Ambulatory Pharmacy Functional Status Combined list of recent functional and cognitive assessments recorded at [facility] Functional [place] Measurement (FIM) Scale: 1 = Total Assistance (Subject = 0% +), 2 = Maximal Assistance (Subject = 25% +), 3 = Moderate Assistance (Subject = 50% +), 4 = Minimal Assistance (Subject = 75% +), 5 = Supervision, 6 = Modified [place] (Device), 7 = Complete [place] (Timely, Safely). Assessment Date/Time Source Assessment Type Assessment Skill Assessment Score Assessment Details No data available for this section
--- OUTSIDE RECORDS SUMMARY | 2024-01-11 22:13 | XMS_ITS | Encounter Summary ---
Author Organization Jose Alejandro Raymundolinnea [facility] Address [address] [place] [address] Care Team Providers Care Animal Husbandman Name Role Phone Cheo Santoyo Moshe REYES Primary Care Provider [phone] Reason for Referral * Imaging (Routine) - Open Specialty Diagnoses / Procedures Referred By [facility] Referred To Contact Radiology Diagnoses Carcinoma of ascending colon (HCC) Malignant neoplasm of intestine (HCC) Procedures CT CHEST W CONTRAST Georgi Butterfield MD [address] [place] [address] Referral ID Status Reason Start Date Expiration Date Visits Re quested Visits Authorized [id number] Open 10/07/2023 10/06/2024 1 1 * Imaging (Routine) - Open Specialty Diagnoses / Procedures Referred By [facility] Referred To Contact Radiology Diagnoses Carcinoma of ascending colon (HCC) Malignant neoplasm of intestine (HCC) Procedures CT ABDOMEN PELVIS W IV CONTRAST Additional Contrast? None (IV CONTRAST) Georgi Butterfield MD [address] [place] [address] Referral ID Status Reason Start Date Expiration Date Visits Re quested Visits Authorized [id number] Open 10/07/2023 10/06/2024 1 1 Reason for Visit * Reason Comments Follow-up Encounter Details Date Type Department Care Team ([facility] st Contact Info) Description 10/07/2023 10:30 AM EDT Office Visit [facility] Hematology & Oncology - [facility] [address] [place] [address] Georgi Butterfield MD [address] [place] [address] Iron deficiency anemia, unspecified iron deficiency anemia type; Carcinoma of ascending colon (HCC); Malignant neoplasm of intestine (HCC) Social History Tobacco Use Types Packs/Day Years Used Date Smoking Tobacco: Former Cigarettes 1 27 0 05/31/1969 - 05/31/1996 Smokeless Tobacco: Never Alcohol Use Standard Drinks/Week Comments Yes 4 (1 standard drink = 0.6 oz pur e alcohol) AUDIT-C Answer Date Recorded Q1: How often do you have a drink containing alc ohol? 2-3 times a week 02/26/2023 Q2: How many drinks containi ng alcohol do you have on a typical day when you are drinking? 1 or 2 02/26/2023 Q3: How often do you have si x or more drinks on one occasion? Never 02/26/2023 PHQ-2 Answer Date Recorded PHQ-9 Total Score 0 07/06/2023 Exercise Vital Sign Answer Date Recorde d On average, how many days pe r week do you engage in moderate to strenuous exercise (like a brisk walk)? 5 days 02/26/2023 On average, how many minutes do you engage in exercise at this level? 60 min 02/26/2023 Interpersonal Safety Domain Source: IP Abuse Scr eening Answer Date Recorded Read-Only, Retired: Physical Abuse Denies 08/04/2023 Read-Only, Retired: Verbal Abuse Denies 08/04/2023 Read-Only, Retired: Emotional abuse Denies 08/04/2023 Read-Only, Retired: Financial Abuse Denies 08/04/2023 Read-Only, Retired: Sexual abuse Denies 08/04/2023 Sex and Gender Information Value Date Recorded Sex Assigned at Not on file Gender Identity Not on file Sexual Orientation Not on file documented as of this encounter Last Filed Vital Signs Vital Sign Reading Time Taken Comments Blood Pressure 112/73 10/07/2023 10:16 AM EDT Pulse 94 10/07/2023 10:16 AM EDT Temperature 36.6 ??C (97.8 ??F) 10/07/2023 10:16 AM E DT Respiratory Rate 16 10/07/2023 10:16 AM EDT Oxygen Saturation 97% 10/07/2023 10:16 AM EDT Inhaled Oxygen Concentration - - Weight 94.8 kg (209 lb) 10/07/2023 10:16 AM EDT Height 175.3 cm (5' 9) 10/07/2023 10:16 AM EDT Body Mass Index 30.86 10/07/2023 10:16 AM EDT documented in this encounter Progress Notes * Georgi Butterfield MD - 10/08/2023 7:14 AM EDT Images from the original note were not included. [facility] HEMAT[facility]Y [facility]COLOGY MD Rosalino Ponce MD Ryan A. Kalinsky, MD Mark T. 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 PRIOR TREATMENT: Status post right hemicolectomy on 07/16/2020. Final stage: pT3 pN0, 0/23 lymph nodes involved, small vessel lymphovascular invasion present, tumor dimension 1.2 x 1.2 cm. MSI intact Capecitabine 1000 mg/m2 p.o. b.i.d. days 1-14 q. 21-days, initiated on 09/01/2020. Dose reduced by 50% due to extensive toxicity and then maintained present dosing schedule at 1000 mg p.o. q. am 1500mg p.o. q. h.s. (61.5% standard dose), completing 8 cycles as of 03/03/2021. CURRENT TREATMENT: Appropriate imaging and Signatera testing. INTERVAL HISTORY: The patient is a very pleasant 68-year-old male. He had a recent colonoscopy in May. Since then he has had difficulty with irritable bowel syndrome. He is on Xifaxan. He has also been bothered with right hip pain. He is planning for surgery with Dr. Panchal later this month. He is hopeful this will help resolve some of his discomfort. Otherwise he is doing well and is here for followup. He had his most recent Signatera testing obtained in August and is here to followup on those results. Past Medical History: Diagnosis Date Ryan's esophagus Cancer (HCC) 2020 Colon Chronic back pain Diabetes (HCC) DJD (degenerative joint disease) GERD (gastroesophageal reflux disease) Hip pain HTN (hypertension) Hyperlipidemia Left bundle branch block (LBBB) no longer sees customer contact sales associate, states stress and testing was completed and customer contact sales associate signed off PONV (postoperative nausea and vomiting) Post-operative nausea and vomiting AND STATES BODY TEMP DROPPED TO 94 DEGREES F Sleep apnea MILD AND DOES NOT USE CPAP Spinal stenosis Type 2 diabetes mellitus without complication (HCC) Past Surgical History: Procedure Laterality Date BACK SURGERY 02/05/1986 laminectomy, discectomy CERVICAL DISCECTOMY 04/18/2007 , cervical fusion 2012 COLONOSCOPY MULTIPLE HAND CARPECTOMY Left 2021 HAND SURGERY Right 2001 debby luanr repair HEMICOLECTOMY 2020 HIP SURGERY Right 06/18/2022 INTRA ARTICULAR HIP RIGHT HIP performed by Martinez Guthrie MD at [facility] PAIN MANAGEMENT HIP SURGERY Bilateral 08/04/2023 INTRA ARTICULAR HIP BILATERAL NO PA REQ performed by Martinez Guthrie MD at [facility] PAIN MANAGEMENT JOINT REPLACEMENT Right 2011 shoulder KIDNEY STONE SURGERY 2009 basket removal KNEE ARTHROSCOPY Left 10/13/2021 multiple knee scopes right and left 1997 thru 2021 SHOULDER SURGERY Right 2010 2011 right hemiarthroplasty SUBTOTAL COLECTOMY 2019 R. Hemicolectomy TOTAL KNEE ARTHROPLASTY Left 12/21/2022 LEFT TOTAL KNEE ARTHROPLASTY, ROBOTIC performed by Maurice Panchal MD at [facility] MAIN OR TOTAL KNEE ARTHROPLASTY Right 03/17/2023 RIGHT TOTAL KNEE ARTHROPLASTY, ROBOTIC performed by Maurice Panchal MD at [facility] MAIN OR UPPER GASTROINTESTINAL ENDOSCOPY 2019 Family History Problem Relation Age of Onset Diabetes Maternal Grandmother Social History Tobacco Use Smoking Status Former Current packs/day: 0.00 Average packs/day: 1 pack/day for 27.0 years (27.0 ttl pk-yrs) Types: Cigarettes Start date: 05/31/1969 Quit date: 05/31/1996 Years since quittin.3 Smokeless Tobacco Never Social History Substance and Sexual Activity Alcohol Use Yes Alcohol/week: 4.0 - 5.0 standard drinks of alcohol Types: 4 - 5 Glasses of wine per week Social History Substance and Sexual Activity Drug Use Never Medications: has a current medication list which includes the following prescription(s): ozempic (1 mg/dose), celecoxib, tizanidine, amoxicillin, empagliflozin, metformin, pantoprazole, olmesartan, atorvastatin, ondansetron, acetaminophen, and aspirin. Allergies: Allergies Allergen Reactions Morphine Itching, Nausea And Vomiting and Other (See Comments) Other reaction(s): migraines, hallucinations, itching Other reaction(s): Hallucinations, HALLUCINATIONS, ITCH, Other (See Comments) Event: hallucinations Migraines Other reaction(s): HALLUCINATIONS, ITCH, Unknown, Other: Sensitivity REVIEW OF SYSTEMS: 12 point ROS was performed and pertinent positives and negatives were placed in the interval history. PHYSICAL EXAM: ECOG performance status: 0. Vitals: 10/07/23 1016 BP: 112/73 Site: Right Upper Arm Position: Sitting Cuff Size: Medium Adult Pulse: 94 Resp: 16 Temp: 97.8 ??F (36.6 ??C) TempSrc: Oral SpO2: 97% Weight: 94.8 kg (209 lb) Height: 1.753 m (5' 9) GEN: No apparent distress, sitting comfortably. EYES: Clear conjunctivae, pupils equally round. ENMT: Ears and nose without marked deformity, moist mucous membranes. NECK: Supple, trachea midline. CV: Regular rate and rhythm, no murmurs, no carotid bruit. RESP: Normal effort, clear to auscultation bilaterally. LYMPH: No cervical or axillary LAD. INT: Normal temperature and turgor, no palpable abnormalities. MSK: Normal gait and posture, no cyanosis. PSYCH: Shows good insight, appropriate mood and affect. LABS: Lab Results Component Value Date/Time WBC 6.9 10/07/2023 10:12 AM HGB 16.2 10/07/2023 10:12 AM HCT 49.2 10/07/2023 10:12 AM PLT 279 10/07/2023 10:12 AM MCV 97.0 10/07/2023 10:12 AM Lab Results Component Value Date/Time NA 140 10/07/2023 10:11 AM K 4.6 10/07/2023 10:11 AM CL 103 10/07/2023 10:11 AM CO2 23 10/07/2023 10:11 AM BUN 17 10/07/2023 10:11 AM GFRAA 82 (L) 07/19/2020 04:57 AM ASSESSMENT AND PLAN: The patient is a 68-year-old male with stage IIA adenocarcinoma of the ascending colon: Colon cancer: The patient continues to do well. No evidence of recurrent disease. I will schedule him for CT imaging in March on annual basis being that he is 3 years out from surgery. I believe that discontinuation of Signatera would be appropriate and will discontinue those orders at this time. Disposition: Plan for followup in 6 months. He will continue with annual colonoscopies. Hopefully he will continue to do well with Xifaxan and irritable bowel symptoms and that he will continue to bennett overall. Georgi Butterfield MD Hematology/Medical Oncology * America Mayorga RN - 10/07/2023 10:41 AM EDT Scripts verified Cbc,cmp,cea, fest Reviewed signatera results- pt may discontinue Reviewed egd/colonoscopy report Pt states that he was diagnosed with IBS- pt to follow up with GI CT scan ordered- due in March Pt to have hip surgery on 10/19/23 Rtc 6 mos ov/labs/review scan documented in this encounter Plan of Treatment Upcoming Encounters Date Type Department Care Team (Late st Contact Info) Description 03/24/2024 9:00 AM EDT Office Visit Neurology - [address] [place] [phone] Martell Calderon MD [address] [facility] [place] [address] [place], [place] [id number] TREMORS/ MEDICARE, FOR LIFE 03/28/2024 8:30 AM EDT Office Visit Primary Care - [address] [address] Cheo Santoyo, [address] [place] [phone] AWV 04/06/2024 9:45 AM EST Lab [place] [facility] - [facility] [address] [facility] [place] [address] CBCMP,CEA,FEST 04/06/2024 10:15 AM EST Office Visit [place] [facility] - [facility] [address] [facility] [address] [place] [address] Georgi Butterfield MD [address] [facility] [address] [place] [address] 6 MTH FU W/LABS, REV SCAN 04/13/2024 9:30 AM EST Office Visit Surgical Oncology - [facility] [address] [facility] [address] [place] [address] Delvis Cheek MD [address] [facility] [address] [place] [address] 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 06/19/2024 10:30 AM EST Office Visit Orthopaedics- Les Valencia [address] [facility] [address] [place] [phone] Karly Bautista, PA [address] [facility] [address] [place] [address] annual visit from date of surgery May/Jul 2024 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 Scheduled Orders Name Type Priority Associated Diagnoses Orde r Schedule CT ABDOMEN PELVIS W IV CONTRAST Additional Contrast? None (IV CONTRAST) Imaging Routine Carcinoma of ascending colon (HCC) Malignant neoplasm of intestine (HCC) Expected: 10/07/2023, Expires: 10/06/2024 CT CHEST W CONTRAST Imaging Routine Carcinoma of ascending colon (HCC) Malignant neoplasm of intestine (HCC) Expected: 10/07/2023, Expires: 10/06/2024 CEA (Serial Monitor) Lab Routine Iron deficiency anemia, unspecified iron deficiency anemia type Carcinoma of ascending colon (HCC) Malignant neoplasm of intestine (HCC) Expected: 04/08/2024, Expires: 10/06/2024 CBC with Auto Differential Lab Routine Iron deficiency anemia, unspecified iron deficiency anemia type Carcinoma of ascending colon (HCC) Malignant neoplasm of intestine (HCC) Expected: 04/08/2024, Expires: 10/06/2024 Comprehensive Metabolic Panel Lab Routine Iron deficiency anemia, unspecified iron deficiency anemia type Carcinoma of ascending colon (HCC) Malignant neoplasm of intestine (HCC) Expected: 04/08/2024, Expires: 10/06/2024 Ferritin Lab Routine Iron deficiency anemia, unspecified iron deficiency anemia type Carcinoma of ascending colon (HCC) Malignant neoplasm of intestine (HCC) Expected: 04/08/2024, Expires: 10/06/2024 Iron and TIBC Lab Routine Iron deficiency anemia, unspecified iron deficiency anemia type Carcinoma of ascending colon (HCC) Malignant neoplasm of intestine (HCC) Expected: 04/08/2024, Expires: 10/06/2024 Reticulocytes Lab Routine Iron deficiency anemia, unspecified iron deficiency anemia type Carcinoma of ascending colon (HCC) Malignant neoplasm of intestine (HCC) Expected: 04/08/2024, Expires: 10/06/2024 Soluble transferrin receptor Lab Routine Iron deficiency anemia, unspecified iron deficiency anemia type Carcinoma of ascending colon (HCC) Malignant neoplasm of intestine (HCC) Expected: 04/08/2024, Expires: 10/06/2024 Vitamin B12 Lab Routine Iron deficiency anemia, unspecified iron deficiency anemia type Carcinoma of ascending colon (HCC) Malignant neoplasm of intestine (HCC) Expected: 04/08/2024, Expires: 10/06/2024 documented as of this encounter Procedures Procedure Name Priority Date/Time Associated Diagnosis Comments CBC WITH AUTO DIFFERENTIAL Routine 10/07/2023 10:12 AM EDT Iron deficiency anemia, unspecified iron deficiency anemia type Carcinoma of ascending colon (HCC) CEA (SERIAL MONITOR) Routine 10/07/2023 10:11 AM EDT Iron deficiency anemia, unspecified iron deficiency anemia type Malignant neoplasm of intestine (HCC) SOLUBLE TRANSFERRIN RECEPTOR Routine 10/07/2023 10:11 AM EDT Iron deficiency anemia, unspecified iron deficiency anemia type IRON AND TIBC Routine 10/07/2023 10:11 AM EDT Iron deficiency anemia, unspecified iron deficiency anemia type RETICULOCYTES Routine 10/07/2023 10:11 AM EDT Iron deficiency anemia, unspecified iron deficiency anemia type FOLATE Routine 10/07/2023 10:11 AM EDT Iron deficiency anemia, unspecified iron deficiency anemia type FERRITIN Routine 10/07/2023 10:11 AM EDT Iron deficiency anemia, unspecified iron deficiency anemia type VITAMIN B12 Routine 10/07/2023 10:11 AM EDT Iron deficiency anemia, unspecified iron deficiency anemia type COMPREHENSIVE METABOLIC PANEL Routine 10/07/2023 10:11 AM EDT Iron deficiency anemia, unspecified iron deficiency anemia type documented in this encounter Results * CBC with Auto Differential (10/07/2023 10:12 AM EDT) WBC 6.9 4.1 - 10.9 K/uL [facility] Lymphocytes Absolute 1.9 0.6 - 4.1 K/uL [facility] Absolute Mid 0.7 0.0 - 1.8 K/uL [facility] Granulocyte Absolute Count 4.3 2.0 - 7.8 K/uL [facility] Lymphocytes 27.8 10.0 - 58.5 % [facility] MID % 9.6 0.1 - 24.0 % [facility] Granulocytes % 62.6 37.0 - 92.0 % [facility] RBC 5.07 4.20 - 6.30 M/uL [facility] Hemoglobin 16.2 12.0 - 17.5 g/dL [facility] Hematocrit 49.2 37.0 - 51.0 % [facility] MCV 97.0 80.0 - 97.5 fL [facility] MCH 32.0 26.0 - 32.0 pg [facility] MCHC 32.9 31.0 - 36.0 g/dL [facility] RDW 12.7 11.5 - 14.5 % [facility] Platelets 279 140 - 440 K/uL [facility] MPV 7.6 0.0 - 49.9 fL [facility] Whole Blood BLOOD SPECIMEN / Unknown 10/07/2023 10:12 AM EDT 10/07/2023 10:12 AM EDT Narrative [facility] - 10/07/2023 10:21 AM EDT Testing Location: [address], [address], [facility] [address], Georgi Butterfield MD HEMATOLOGY ORDERABL ES [facility] [address] [facility] [address] [place] [address], RUST * (ABNORMAL) Comprehensive Metabolic Panel (10/07/2023 10:11 AM EDT) Sodium 140 135 - 145 mmol/L [facility] Potassium 4.6 3.5 - 5.3 mmol/L [facility] Chloride 103 98 - 107 mmol/L [facility] CO2 23 22 - 29 mmol/L [facility] Glucose 148(H) 70 - 99 mg/dL [facility] BUN 17 8 - 23 mg/dL [facility] Creatinine 1.1 0.7 - 1.3 mg/dL [facility] Anion Gap 14 2 - 17 mmol/L [facility] Osmolaliy Calculated 284 270 - 287 mOsm/kg [facility] Calcium 9.9 8.5 - 10.7 mg/dL [facility] Total Protein 6.6 5.7 - 8.3 g/dL [facility] Albumin 4.7 3.5 - 5.2 g/dL [facility] Globulin 1.9 1.9 - 4.4 g/dL [facility] Albumin/Globulin Ratio 2.42 1.00 - 2.70 [facility] Total Bilirubin 0.65 0.00 - 1.20 mg/dL [facility] Alk Phosphatase 77 40 - 130 unit/L [facility] AST 21 0 - 50 unit/L [facility] ALT 29 0 - 50 unit/L [facility] Est, Glom Filt Rate 74 >=60 mL/min/1.7 3m? [facility] Comment: VERIFIED by Discern Expert. GFR Interpretation: % OF KIDNEY GFR STAGE ?FUNCTION == ??> 90 ?Normal kidney function STAGE 1 ? 90-100% 89 to 60 ?Mild loss of kidney function STAGE 2 ?80-60% 59 to 45 ?Mild to moderate loss of kidney function STAGE 3a ? 59-45% 44 to 30 ?Moderate to severe loss of kidney function STAGE 3b ? 44-30% 29 to 15 ?Severe loss of kidney function STAGE 4 ?29-15% ??< 15 ?Kidney failure STAGE 5 ?<15% == Modified from [employer] GFR Calculation performed using the CKD-EPI 2020 equation developed for use with IDMS traceable creatinine methods and is the calculation recommended by the National Kidney Foundation for estimating GFR in adults. Test Performed at: [facility] [address] [place] [address] [place] [address] Blood BLOOD SPECIMEN / Unknown 10/07/2023 10:11 AM EDT 10/07/2023 12:28 PM EDT Georgi Butterfield MD CHEMISTRY ORDERABLE S Performing Organization Address [facility] de Phone Number [facility] [address] [place] [address] * Folate (10/07/2023 10:11 AM EDT) [facility] Folate 6.86 4.80 - 24.20 ng/mL [facility] Comment: Test Performed at: [facility] [address] [place] [address] [place] [address] Blood BLOOD SPECIMEN / Unknown 10/07/2023 10:11 AM EDT 10/07/2023 12:28 PM EDT Georgi Butterfield MD CHEMISTRY ORDERABLE S Performing Organization Address [facility] de Phone Number [facility] [address] [place] [address] * Vitamin B12 (10/07/2023 10:11 AM EDT) [facility] Vitamin B-12 432 232 - 1245 pg/mL [facility] Comment: Effective 05/05/17 Vitamin B12 Methodology Change - Vitamin B12 Reference Range has been revised. Test Performed at: [facility] [address] [place] [address] [place] [address] Blood BLOOD SPECIMEN / Unknown 10/07/2023 10:11 AM EDT 10/07/2023 12:28 PM EDT Georgi Butterfield MD CHEMISTRY ORDERABLE S Performing Organization Address City/[facility] Co de Phone Number [facility] [address] [place] [address] * Iron and TIBC (10/07/2023 10:11 AM EDT) [facility] Iron 85 59 - 158 mcg/dL [facility] UIBC 239.2 112.0 - 347.0 mcg/dL [facility] TIBC 325 250 - 450 mcg/dL [facility] Iron % Saturation 26 20 - 40 % [facility] Comment: Test Performed at: [facility] [address] [place] [address] [place] [address] Serum BLOOD SPECIMEN / Unknown 10/07/2023 10:11 AM EDT 10/07/2023 12:28 PM EDT Georgi Butterfield MD CHEMISTRY ORDERABLE S Performing Organization Address [facility] de Phone Number [facility] [address] [place] [address] * Ferritin (10/07/2023 10:11 AM EDT) [facility] Ferritin 112.1 30.0 - 400.0 ng/mL [facility] Comment: Test Performed at: [facility] [address] [place] [address] [place] [address] Blood BLOOD SPECIMEN / Unknown 10/07/2023 10:11 AM EDT 10/07/2023 12:28 PM EDT Georgi Butterfield MD CHEMISTRY ORDERABLE S Performing Organization Address City/[facility] de Phone Number [facility] [address] [place] [address] * Reticulocytes (10/07/2023 10:11 AM EDT) Pathologist [facility] RBC 5.14 4.00 - 5.60 x10e6/mcL [facility] Retic Ct Pct 1.4 0.5 - 2.0 % [facility] Retic Ct Abs 0.0735 0.0235 - 0.1220 /mcL [facility] Comment: Test Performed at: [facility] [address] [facility] [place] [address] Blood BLOOD SPECIMEN / Unknown 10/07/2023 10:11 AM EDT 10/07/2023 12:28 PM EDT Georgi Butterfield MD HEMATOLOGY ORDERABL ES Performing Organization Address [facility] de Phone Number [facility] [address] [place] [address] * Soluble transferrin receptor (10/07/2023 10:11 AM EDT) [facility] Soluble Transferrin Recept 15.9 12.2 - 27.3 nmol/L [facility] Comment: Performed At: [address] [id number] Ajit Swift MD Ph:[phone] Test Performed at: [facility] [address] [facility] [place] [address] Blood BLOOD SPECIMEN / Unknown 10/07/2023 10:11 AM EDT 10/07/2023 12:28 PM EDT Georgi Butterfield MD HEMATOLOGY ORDERABL ES Performing Organization Address [facility] de Phone Number [facility] [address] [place] [address] * CEA (Serial Monitor) (10/07/2023 10:11 AM EDT) [facility] CEA (SERIAL MONITOR) 2.1 0.0 - 4.7 ng/mL [facility] Comment: ? Nonsmokers ?<3.9 ? Smokers ? <5.6 [facility] Electrochemiluminescence Immunoassay (ECLIA) Values obtained with different assay methods or kits cannot be used interchangeably. ??Results cannot be interpreted as absolute evidence of the presence or absence of malignant disease. Performed At: [facility] [id number] Ajit Swift MD Ph:[phone] Test Performed at: [facility] [address] [facility] [place] [address] Blood BLOOD SPECIMEN / Unknown 10/07/2023 10:11 AM EDT 10/07/2023 12:28 PM EDT Georgi Butterfield MD CHEMISTRY ORDERABLE S [facility] [address] [place] [address] documented in this encounter Visit Diagnoses Diagnosis Iron deficiency anemia, unspecified iron deficiency anemia type Carcinoma of ascending colon (HCC) Malignant neoplasm of ascending colon Malignant neoplasm of intestine (HCC) Malignant neoplasm of intestinal tract, part unspecified documented in this encounter Additional Health Concerns Assessment Noted Time A fall risk assessment has been complete d for the patient 07/06/2023 9:36 AM EST documented as of this encounter Care Teams Animal Husbandman Relationship Specialty Start Date End Date Cheo Santoyo DO [address] [place] [phone] PCP - General Family Medicine 07/06/23 documented as of this encounter
--- OUTSIDE RECORDS SUMMARY | 2024-01-11 22:13 | XMS_ITS | Encounter Summary ---
Author Organization [facility] Address [address] [place] [address] Care Team Providers Care Freight Delivery Driver Name Role Phone Cheo Santoyo DO Primary Care Provider [phone] Encounter Details Date Type Department Care Team ([facility] st Contact Info) Description 10/21/2023 Abstract Primary Care - [address] [phone] Cheo Santoyo DO [address] [place] [phone] Social History Tobacco Use Types Packs/Day Years Used Date Smoking Tobacco: Former Cigarettes 1 27 0 05/31/1969 - 05/31/1996 Smokeless Tobacco: Never Alcohol Use Standard Drinks/Week Comments Yes 7 (1 standard drink = 0.6 oz pur e alcohol) [facility] Utilities Answer Date Recorded In the past 12 months has [email or web address], oil, or water [employer] threatened to shut off services in your home? No 10/19/2023 AUDIT-C Answer Date Recorded Q1: How often [...] exercise at this level? 60 min 02/26/2023 Hunger Vital Sign Answer Date Recorded Within the past 12 months, y ou worried that your food would run out before you got the money to buy more. Never true 10/19/19 24 Within the past 12 months, t he food you bought just didn't last and you didn't have money to get more. Never true 10/19/2023 PRAPARE - Transportation Answer Date Re corded In the past 12 months, has l ack of transportation kept you from medical appointments or from getting medications? No 09/29 In the past 12 months, has l ack of transportation kept you from meetings, work, or from getting things needed for daily living? No 10/19/2023 Housing Stability Vital Sign Answer Popeye e Recorded In the last 12 months, was t here a time when you were not able to pay the mortgage or rent on time? No 10/19/2023 In the last 12 months, how many places have you lived? 1 10/19/2023 In the last 12 months, was t here a time when you did not have a steady place to sleep or slept in a group home (including now)? No 10/19/2023 Food Insecurity Answer Date Recorded Within the past 12 months, y ou worried that your food would run out before you got the money to buy more. 1 10/19/2023 Within the past 12 months, t he food you bought just didn't last and you didn't have money to get more. 1 10/19/2023 Interpersonal Safety Domain Source: IP Abuse Scr eening Answer Date Recorded Physical abuse Denies 10/19/2023 Verbal abuse Denies 10/19/2023 Emotional abuse Denies 10/19/2023 Financial abuse Denies 10/19/2023 Sexual abuse Denies 10/19/2023 Sex and Gender Information Value Date Recorded Sex Assigned at Not on file Gender Identity Not on file Sexual Orientation Not on file documented as of this encounter Plan of Treatment Upcoming Encounters Date Type Department Care Team (Late st Contact Info) Description 03/24/2024 9:00 AM EDT Office Visit Neurology - [facility] [address] [facility] [address] [place] [phone] Martell Calderon MD [address] [facility] [address] [place] [address] TREMORS/ MEDICARE, FOR LIFE 03/28/2024 8:30 AM EDT Office Visit Primary Care - [address] [phone] Cheo Santoyo, DO [address] [place] [address] AWV 04/06/2024 9:45 AM EST Lab [facility] - [facility] [address] [facility] [address] [place] [address] CBCMP,CEA,FEST 04/06/2024 10:15 AM EST Office Visit [facility] - [facility] [address] [facility] [address] [place] [address] Georgi Butterfield MD [address] [facility] [address] [facility] [address] [place], [place] [id number] 6 MTH FU W/LABS, REV SCAN 04/13/2024 9:30 AM EST Office Visit Surgical Oncology - [facility] [address] [facility] [address] [place] [address] Delvis Cheek MD [address] [facility] [address] [place] [address] 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 [address] [place] [phone] annual visit from date of surgery May/Jul 2024 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 documented as of this encounter Visit Diagnoses Not on filedocumented in this encounter Additional Health Concerns Assessment Noted Time A fall risk assessment has been complete d for the patient 07/06/2023 9:36 AM EST documented as of this encounter Care Teams Freight Delivery Driver Relationship Specialty Start Date End Date Cheo Santoyo DO [address] [place] [phone] PCP - General Family Medicine 07/06/23 documented as of this encounter
--- OUTSIDE RECORDS SUMMARY | 2024-01-11 22:13 | XMS_ITS | Encounter Summary ---
Author Organization [facility] Address [address] [email or web address] [address] Care Team Providers Care Wire Mesh Gate Assembler Name Role Phone Cheo Santoyo Moshe REYES Primary Care Provider [phone] Encounter Details Date Type Department Care Team (Latest Contact Info) Description 10/19/2023 Travel Social History Tobacco Use Types Packs/Day Years Used Date Smoking Tobacco: Former Cigarettes 1 27 0 05/31/1969 - 05/31/1996 Smokeless Tobacco: Never Alcohol Use Standard Drinks/Week Comments Yes 7 (1 standard drink = 0.6 oz pur e alcohol) [facility] Utilities Answer Date Recorded In the past 12 months has [employer], gas, oil, or water company threatened to shut off services in your [...] place to sleep or slept in a [place] facility (including now)? No 10/19/2023 Food Insecurity Answer [...] 9:00 AM EDT Office Visit Neurology - [address] [facility] [address] [place] [phone] Martell Calderon MD [address] [facility] [address] [place] [address] TREMORS/ MEDICARE, FOR LIFE 03/28/2024 8:30 AM EDT Office Visit Primary Care - [facility] [address] [place] [address] Cheo Santoyo DO [address] [place] [phone] AWV 04/06/2024 9:45 AM EST Lab [facility] - [facility] [address] [facility] [address] [place] [phone] CBCMP,CEA,FEST 04/06/2024 10:15 AM EST Office Visit [facility] - [facility] [address] [facility] [address] [place] [address] Georgi Butterfield MD [address] [facility] [address] [place] [address] 6 MTH FU W/LABS, REV SCAN 04/13/2024 9:30 AM EST Office Visit Surgical Oncology - [facility] [address] [facility] [address] [place] [address] Delvis Cheek MD [address] [facility] [address] [place] [address] 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 documented as of this encounter Visit Diagnoses Not on filedocumented in this encounter Additional Health Concerns Assessment Noted Time A fall risk assessment has been complete d for the patient 07/06/2023 9:36 AM EST documented as of this encounter Care Teams Wire Mesh Gate Assembler Relationship Specialty Start Date End Date Cheo Santoyo DO [address] [place] [phone] PCP - General Family Medicine 07/06/23 documented as of this encounter
--- OUTSIDE RECORDS SUMMARY | 2024-01-11 22:13 | XMS_ITS | Clinical Summary ---
Author Organization [facility] Address [address] [place] [address] Care Team Providers Care Account Underwriter Name Role Phone Cheo Santoyo Primary Care Provider [phone] Allergies Active Allergy Reactions Criticality Noted Date Comments Morphine Itching,Nausea And Vomiting,Other (See Comments) High 02/14/2015 Other reaction(s): migraines, hallucinations, itching Other reaction(s): Hallucinations, HALLUCINATIONS, ITCH, Other (See Comments) Event: ?? hallucinations Migraines Other reaction(s): HALLUCINATIONS, ITCH, Unknown, Other: Sensitivity Medications Medication Sig Dispensed Refills Start Date End Date Status empagliflozin (JARDIANCE) 25 MG tablet 1 tablet Orally once daily 90 tablet 3 07/06/2023 Active Additional Information Patient taking differently: 25 mg Oral DAILY, 1 tablet Orally once daily, Reported on 10/12/2023 metFORMIN (GLUCOPHAGE) 1000 MG tablet 1 tablet with a meal Orally bid 180 tablet 3 07/06/2023 Active Additional Information Patient taking differently: 1,000 mg Oral 2 TIMES DAILY WITH MEALS, 1 tablet with a meal Orally bid, Reported on 10/12/2023 olmesartan (BENICAR) 20 MG tabletIndications: Primary hypertension Take 0.5 tablets by mouth daily 45 tablet 3 07/06/2023 Active Additional Information Patient taking differently:10 mg OralEVERY MORNING, Reported on 10/12/2023 atorvastatin (LIPITOR) 40 MG tabletIndications: Type 2 diabetes mellitus without complication, without long-term current use of insulin (HCC) Take 1 tablet by mouth every morning 90 tablet 3 07/06/2023 Active ondansetron (ZOFRAN) 4 MG tabletIndications: Nausea Take 1 tablet by mouth every 8 hours as needed for Nausea prn 90 tablet 3 07/06/2023 Active tiZANidine (ZANAFLEX) 4 MG tabletIndications: Cervicalgia Take 1 tablet by mouth every 6 hours as needed (muscle spasm) 30 tablet 2 09/02/2023 Active Additional Information Patient taking differently:4 mg OralEVERY EVENING, Reported on 10/12/2023 cyclobenzaprine (FLEXERIL) 10 MG tablet Take 1 tablet by mouth 3 times daily as needed for Muscle spasms Active Bacillus Coagulans-Inulin (ALIGN PREBIOTIC-PROBIOTI C PO) Take 1 capsule by mouth daily Active XIFAXAN 550 MG tablet 09/24/2023 Active acetaminophen (TYLENOL) 500 MG tablet 2 tabs every 8 hours . Do not exceed 3000mg in a 24 hour period. 180 tablet 10/19/2023 Active celecoxib (CELEBREX) 200 MG capsule Take 1 capsule by mouth daily 1 capsule by mouth once a day with food. Start taking the day after surgery. 30 capsule 10/19/2023 Active aspirin (ASPIRIN 81) 81 MG EC tablet Take 1 tablet by mouth 2 times daily One tablet twice daily with food for 30 days beginning the day after surgery. 60 tablet 10/19/2023 Active naloxone (NARCAN) 4 MG/0.1ML LIQD nasal spray 1 spray by Nasal route as needed for Opioid Reversal 2 each 10/19/2023 Active Semaglutide,0.25 or 0.5MG/DOS, (OZEMPIC, 0.25 OR 0.5 MG/DOSE,) 2 MG/3ML SOPNIndications:Ty pe 2 diabetes mellitus without complication, without long-term current use of insulin (HCC) Inject 0.5 mg into the skin once a week 9 mL 12/14/2023 Active pantoprazole (PROTONIX) 40 MG tabletIndications: Ryan's esophagus with dysplasia 1 tablet orally twice daily 180 tablet 12/14/2023 Active pantoprazole (PROTONIX) 40 MG tabletIndications: Ryan's esophagus with dysplasia 1 tablet orally twice daily 180 tablet 12/07/2023 Discontinue d(REORDER) Semaglutide,0.25 or 0.5MG/DOS, (OZEMPIC, 0.25 OR 0.5 MG/DOSE,) 2 MG/3ML SOPNIndications:Ty pe 2 diabetes mellitus without complication, without long-term current use of insulin (HCC) Inject 0.5 mg into the skin once a week 9 mL 3 12/09/2023 4 Discontinue d(REORDER) Active Problems Problem Noted Date Diagnosed Date Status post total replacement of right hip 10/18 Sacroiliitis 09/02/2023 Assessment & Plan (09/05/2023 1:23 PM EDT): symptoms currently well-controlled with NSAIDs Type 2 diabetes mellitus with diabetic neuropath y 07/06/2023 Assessment & Plan (09/05/2023 1:22 PM EDT): Last hemoglobin A1c well-controlled at 6.8. He is tolerating his GLP-1 agonist without adverse effect. Patient will continue this at current dose. Aftercare following joint replacement surgery 07/06/2023 Encounter for adjustment and management of infus ion pump 03/20/2023 07/06/2023 Encounter for change or removal of surgical woun d dressing 03/20/2023 07/06/2023 Encounter for removal of sutures 03/20/2023 07/06/2023 Primary osteoarthritis of right knee 03/17/2023 Acquired absence of other sp ecified parts of digestive tract 03/17/2023 07/06/2023 alf (current) use of oral hypoglycemic jd reina 03/17/2023 07/06/2023 Other penitentiary (current) drug therapy 3 07/06/2023 Personal history of other ma lignant neoplasm of large intestine 03/17/2023 07/06/2023 Anemia of unknown etiology 10/12/2022 Diarrhea 10/12/2022 Heartburn 10/12/2022 Left upper quadrant pain 10/12/2022 Tear of acetabular labrum, right, initial encoun ter 05/12/2022 Abnormal electrocardiogram 04/10/2022 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 Patient follows with Dr. Ricardo for surveillance colonoscopy. Arthralgia of shoulder 04/10/2022 Backache 04/10/2022 Calcaneal spur 04/10/2022 Carcinoma of ascending colon 04/10/2022 Cancer Staging:Pathologic stage from 07/18/2020:Stage IIA(pT3, pN0, cM0) - Signed by Delvis Cheek MD on 04/15/2023 Complex tear of medial menis cus of left knee as current injury 04/10/2022 DDD (degenerative disc disease), cervical 2021 Degeneration of lumbar intervertebral disc 04/10 Degenerative tear of medial meniscus of right kn ee 04/10/2022 Derangement of other medial meniscus due to old tear or injury, right knee 04/10/2022 Postoperative nausea and vomiting 04/10/2022 Dyslipidemia 04/10/2022 Dyspnea on exertion 04/10/2022 Overview (07/06/2023): May 2019 Echo EF 40 to 45% paradoxical motion. LBBB. inferior wall hypokinetic. Nuclear stress test May 2019 No inducible ischemia. GI artifact or small scar. EF 55%. ECHO 08/18 EF 45-50% Encounter for long-term (current) use of aspirin 04/10/2022 Hand foot syndrome 04/10/2022 Hematuria syndrome 04/10/2022 Herpes zoster without complication 04/10/2022 History of migraine 04/10/2022 History of renal calculi 04/10/2022 Hypercholesterolemia 04/10/2022 Hyperlipidemia 04/10/2022 Hyperopia 04/10/2022 Iron deficiency anemia 04/10/2022 Left bundle branch block 04/10/2022 Lumbar disc herniation with myelopathy 2 Malabsorption 04/10/2022 Malignant neoplasm of intestine 04/10/2022 Mass of colon 04/10/2022 Nausea 04/10/2022 Cervicalgia 04/10/2022 Assessment & Plan (09/05/2023 1:25 PM EDT): patient advised that he is safe to combine Celebrex and Zanaflex together for his neck pain. Assessment & Plan (07/06/2023 11:16 AM EST): patient's status post discectomy with cervical complaint back in 2006. Patient currently without any pain that radiates to his arms or any upper extremity weakness. He has occasional sharp stinging pain over the left side of his neck. Pain appears to be positional related. Will begin patient on Robaxin. Robaxin chosen because it should not be sedating. Patient given isometric stretching exercises to try at home. Patient will notify me if symptoms persist and do not improve. Neck pain 04/10/2022 Nephrolithiasis 04/10/2022 Neuropathy 04/10/2022 Oral ulceration 04/10/2022 Osteoarthritis of first carpometacarpal joint of left hand 04/10/2022 Osteoarthrosis involving mul tiple sites but not designated as generalized 04/10/2022 Chronic pain 04/10/2022 Pain of foot 04/10/2022 Presbyopia 04/10/2022 Primary osteoarthritis of knees, bilateral 04/10 Rash 04/10/2022 Radial styloid tenosynovitis of left hand 2021 Seasonal allergies 04/10/2022 Other specified condition influencing health 03/2022 Severe acute respiratory syn drome coronavirus 2 (SARS-CoV-2) test result unknown 04/10/2022 Sleep apnea 04/10/2022 Cervical radiculopathy 04/10/2022 Lumbar myelopathy 04/10/2022 Assessment & Plan (07/06/2023 11:15 AM EST): Patient with history of laminectomy and fusion of L5-S1. Patient currently without any red flag symptoms. Patient without any complaints of low back pain or radiation of pain down legs. Lumbar radiculopathy 04/10/2022 Spinal stenosis 04/10/2022 Spinal stenosis of lumbar region 04/10/2022 Arthritis 04/10/2022 Ryan's esophagus 04/10/2022 Assessment & Plan (07/06/2023 11:21 AM EST): reportedly improved on last EGD, conitnue PPI. Osteoarthritis of shoulder region 04/10/2022 Esophageal reflux 04/10/2022 Overview (04/10/2022): 1. nexium - to replace 2. due for gastric referal Gastritis 04/10/2022 Gastroesophageal reflux disease 04/10/2022 Osteoarthritis of knee 04/10/2022 Osteoarthritis 04/10/2022 Benign essential HTN 03/24/2022 Assessment & Plan (09/05/2023 1:25 PM EDT): blood pressure currently well-controlled, we will continue current blood pressure regimen. Assessment & Plan (07/06/2023 11:15 AM EST): blood pressure currently well-controlled, will continue current blood pressure regiment. Patient will continue watch salt intake and to target 10% weight loss. DJD (degenerative joint disease) 03/24/2022 Assessment & Plan (09/05/2023 1:31 PM EDT): Patient presents today for clearance to proceed with right total hip arthroplasty. The patient has tolerated general anesthesia in the past without any issue. KARYNA calculated to be 0.2% Wears glasses 03/17/2022 Type 2 diabetes mellitus without complication Assessment & Plan (07/06/2023 11:14 AM EST): last hemoglobin A1c well-controlled at 6.5. Patient reporting good control of fasting blood sugars. Last hemoglobin A1c well-controlled. Will plan on rechecking A1c and advise accordingly. Diabetic regiment refilled for the next year. Malignant neoplasm of colon 2021 First degree hemorrhoids 06/06/2020 High alanine aminotransferase (ALT) level 2017 Solitary pulmonary nodule 07/09/2017 Elevation of level of transa minase and lactic acid dehydrogenase (LDH) 07/09/2017 Arthrodesis status 05/31/2012 07/06/2023 Presence of left artificial knee joint 2 07/06/2023 Resolved Problems Problem Noted Date Diagnosed Date Resolved Date Arthritis of right hip 10/19/202310/18 Primary osteoarthritis of right hip 08/26/2023 10/19/2023 Primary osteoarthritis of left knee 12/21/2022 12/21/2022 Pain 04/10/2022 05/10/2022 Sinusitis 04/10/2022 05/10/2022 Encounters Date Type Department Care Team Description 12/23/2023 Telephone [facility] Hematology & Oncology - [facility] [address] [facility] [address] [place] [phone] Georgi Butterfield MD Medication Request 12/14/2023 Telephone Primary Care [address] [phone] Cheo Santoyo, DO new pharm 12/03/2023 Refill Primary Care [address] [phone] Cheo Santoyo, DO New Med Request 11/16/2023 11:30 AM EDT Office Visit [facility] [address] [facility] [place] [address] Karly Bautista PA Aftercare following right hip joint replacement surgery (Primary Dx) 11/16/2023 11:05 AM EDT Ancillary Procedure [facility] [address] [facility] [address] [place] [address] 11/16/2023 Telephone Primary Care [address] [phone] Cheo Santoyo DO 11/01/2023 Home Visit [facility] Maurice Panchal MD 10/26/2023 Telephone Orthopaedics [address] 105 [facility] [address] [place] [address] Maurice Panchal MD Lab results 10/26/2023 Telephone Orthopaedics - Emy Saeed Dr[address] [facility] [address] [place] [address] Maurice Elizabeth PA Call Patient 10/21/2023 Telephone Orthopaedics - Maryan [address] [place] [address] Maurice Panchal MD Medication Problem 10/21/2023 Abstract Primary Care - [facility] [address] [place] [address] Cheo Santoyo DO 10/19/2023 8:15 AM EDT - 10/19/2023 9:00 AM EDT Surgery [facility] [address] [place] [address] Maurice Panchal MD HIP TOTAL ARTHROPLASTY ANTERIOR APPROACH ROBOTIC ASSISTED 10/19/2023 7:51 AM EDT Anesthesia Event [facility] [address] [place] [address] Kwabena Wong MD 10/19/2023 6:20 AM EDT - 10/20/2023 12:10 PM EDT Hospital Encounter [facility] [place] [facility] [address] [place] [address] Maurice Panchal MD Status post total replacement of right hip (Primary Dx); Primary osteoarthritis of right hip Discharge Disposition: Home Health Care [facility] 10/19/2023 Travel 10/16/2023 Prep for Procedure Orthopaedics - [address] [place] [address] [address] [place] [phone] Maurice Elizabeth PA 10/12/2023 Travel from Last 3 Months Immunizations Name Administration Dates Next Due COVID-19, MODERNA LESLIE bacon r, Primary or Immunocompromised, (age 12y+), IM, 100 mcg/0.5mL 01/16/2021,09/23/2020,08/13/2020 COVID-19, PFIZER Bivalent, D O NOT Dilute, (age 12y+), IM, 30 mcg/0.3 mL 06/05/2022 Hep A-Hep B, TWINRIX, (age 1 8y+), IM, 1mL 02/16/2014,09/18/2013,08/16/2013 Influenza Virus Vaccine 03/14/2021,03/19,04/28/2019,2017,03/07/2010,03/20/2009,05/18/2008,0 06/23/2007,05/17/2006,04/21/2005, 004,05/09/2003 Influenza Whole 06/08/2002,05/20/2001 Influenza, FLUCELVAX, (age 6 mo+), MDCK, PF, 0.5mL 04/30/2017 Influenza, FLUZONE (age 65 y +), High Dose, 0.7mL 04/10/2023 Influenza, MDCK, Preservative free 03/31/2013 Influenza, Triv, 3 Years and older, IM, PF (Afluria 5yrs and older) 03/30/2016,04/11/2015,04/27/2011 PPD Test 01/01/2015 Pneumococcal, PCV20, PREVNAR 20, (age 6w+), IM, 0.5mL 06/05/2022 Pneumococcal, PPSV23, PNEUMO VAX 23, (age 2y+), SC/IM, 0.5mL 04/30/2010 TDaP, ADACEL (age 10y-64y), BOOSTRIX (age 10y+), IM, 0.5mL 04/12/2013,04/27/2011,07/20/2004,2002 Zoster Live (Zostavax) 04/11/2015 Zoster Recombinant (Shingrix) 04/30/2020 Zoster Vaccine 05/16/2020 Family History Medical History Relation Name Comments Diabetes Maternal Grandmother Grandmother Relation Name Status Comments Father Maternal Grandmother Grandmother Mother Alive Social History Tobacco Use Types Packs/Day Years Used Date Smoking Tobacco: Former Cigarettes 1 27 0 05/31/1969 - 05/31/1996 Smokeless Tobacco: Never Alcohol Use Standard Drinks/Week Comments Yes 4 (1 standard drink = 0.6 oz pur e alcohol) [facility] Utilities Answer Date Recorded In the past 12 months has [employer], oil, or water [employer] threatened to shut off services in your [...] place to sleep or slept in a residential (including now)? No 10/19/2023 Food Insecurity Answer [...] Sign Reading Time Taken Comments Blood Pressure 103/72 10/20/2023 7:43 AM EDT Pulse 80 10/20/2023 7:43 AM EDT Temperature 36.7 ??C (98.1 ??F) 10/20/2023 7:43 AM ED T Respiratory Rate 18 10/20/2023 7:43 AM EDT Oxygen Saturation 95% 10/20/2023 7:43 AM EDT Inhaled Oxygen Concentration - - Weight 92.5 kg (204 lb) 11/16/2023 10:57 AM EDT Height 175.3 cm (5' 9) 11/16/2023 10:57 AM EDT Body Mass Index 30.13 11/16/2023 10:57 AM EDT Plan of Treatment Upcoming Encounters Date Type Department Care Team (Late st Contact Info) Description 03/24/2024 9:00 AM EDT Office Visit Neurology - [facility] [address] [facility] [address] [place] [address] Martell Calderon MD [address] [facility] [address] [place] [address] TREMORS/ MEDICARE, FOR LIFE 03/28/2024 8:30 AM EDT Office Visit Primary Care - [address] [phone] Cheo Santoyo DO [address] [place] [address] AWV 04/06/2024 9:45 AM EST Lab [place] [facility] - [facility] [address] [facility] [address] [place] [address] CBCMP,CEA,FEST 04/06/2024 10:15 AM EST Office Visit [place] [facility] - [facility] [address] [facility] [address] [place] [address] Georgi Butterfield MD [address] [place] [address] 6 MTH FU W/LABS, REV SCAN 04/13/2024 9:30 AM EST Office Visit Surgical Oncology - [facility] [address] [facility] [address] [place] [phone] Delvis Cheek MD [address] [facility] [address] [place] [address] 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 06/19/2024 10:30 AM EST Office Visit Orthopaedics- Les Valencia [address] [facility] [address] [place] [phone] Karly Bautista, PA [address] [place] [address] annual visit from date of surgery May/Jul 2024 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 Health Maintenance Due Date Last Done Comments Diabetic foot exam 1967 Diabetic Alb to Cr ratio (uACR) test 1975 FIT/FOBT: Average risk 2002 Fecal-DNA (Cologuard): Average risk 2002 Sigmoidoscopy/CT colonography 2002 Shingles vaccine (3 of 3) 07/11/20202019, 04/30/2020, 04/11/2015 DTaP/Tdap/Td vaccine (5 - Td or Tdap) 04/12/2023 04/12/2013, 04/27/2011, 07/20/2004, Additional history exists Flu vaccine (#1) 12/30/2023 04/10/2023, , 03/14/2021, Additional history exists Annual Wellness Visit (Medicare) 03/01/2024 03/01/2023 Lipids 03/04/2024 03/04/2023 Colonoscopy 06/01/2024 06/01/2023 Colorectal Cancer Screen 06/01/2024 A1C test (Diabetic or Prediabetic) 07/06/2024 07/06/2023, 03/04/2023, 09/21/2022, Additional history exists COVID-19 Vaccine ( season) 2024 06/05/2022, 01/16/2021, 09/23/2020, Additional history exists Postponed from 01/29/2023 (Patient Refused) Depression Screen 07/06/2024 07/06/2023, 07/06/2023 Respiratory Syncytial Virus (RSV) or age 60 yrs+ (1 - 1-dose 60+ series) 07/06/2024 Postponed from 2017 (Patient Refused) GFR test (Diabetes, CKD 3-4, OR last GFR 15-59) 10/19/2024 10/20/2023, 10/07/2023, 07/06/2023, Additional history exists Diabetic retinal exam 08/02/2025 08/03/2023 Hepatitis A vaccine Aged Out 02/16/2014, 09/18/2013, 08/16/2013 No longer eligible based on patient's age to complete this topic Hepatitis B vaccine Completed 02/16/2014, 09/18/2013, 08/16/2013 Pneumococcal 0-64 years Vaccine Discontinued 06/05/2022, 04/30/2010 Pneumococcal 65+ years Vaccine Completed 06/05/2022, 04/30/2010 Hepatitis C screen Completed 03/04/2023 AAA screen Completed 04/07/2023 Prostate Specific Antigen (PSA) Screening or Monitoring Discontinued 07/06/2023 Hib vaccine Aged Out No longer eligi ble based on patient's age to complete this topic Meningococcal (ACWY) vaccine Aged Out No longer eligible based on patient's age to complete this topic Polio vaccine Aged Out No longer elig ible based on patient's age to complete this topic Medical Devices Implanted Type Area Antique Refinisher Device Identifier Shelf Expiration Date Model / Serial / Lot Component Pat [id number] Superior/Infe rior Knee - [id number] Implanted:Qty : 1 on 12/21/2022 by Maurice Panchal MD at [facility] Joint Component Left: Patella [employer] HOW- [id number] 06/22/2027 [id number] / / [id number] Component Fem Sz 5 L Knee Micaela Apatite Cruce Ret Cementless - [id number] Implanted:Qty : 1 on 12/21/2022 by Maurice Panchal MD at [facility] Joint Component Left: Knee [employer] [facility] [id number] 11/18/2027 [id number] / / [id number] Insert Tib Cndyl Stbl 5 9 Mm Knee 5/Pk X3 Triathlon - [id number] Implanted:Qty : 1 on 12/21/2022 by Maurice Panchal MD at [facility] Joint Component Left: Knee [employer] [facility] [id number] 09/23/2027 [id number] / / [id number] Baseplate Tib Sz 5 Ap49mm Ml74mm Knee Tritanium 4 Crucfrm - [id number] Implanted:Qty : 1 on 12/21/2022 by Maurice Panchal MD at [facility] Joint Component Left: Knee [employer] [facility] [id number] 10/07/2027 [id number] / / [id number] Component Pat [id number] [id number] Superior/Infe rior Knee - [id number] Implanted:Qty : 1 on 03/17/2023 by Maurice Panchal MD at [facility] Joint Component Right: Patella [employer] [facility] [id number] 01/18/2028 [id number] / / [id number] Component Fem Sz 5 R Knee Cruce Ret Cementless Bead W/ Micaela - [id number] Implanted:Qty : 1 on 03/17/2023 by Maurice Panchal MD at [facility] Joint Component Right: Knee [employer] [facility] [id number] 02/11/2028 [id number] / / [id number] Insert Tib Cndyl Stbl 6 9 Mm Knee 5/Pk X3 Triathlon - [id number] Implanted:Qty : 1 on 03/17/2023 by Maurice Panchal MD at [facility] Joint Component Right: Knee [employer] [facility] [id number] 01/07/2028 [id number] / / [id number] Baseplate Tib Sz 6 Ap52mm Ml77mm Knee Tritanium 4 Crucfrm - [id number] Implanted:Qty : 1 on 03/17/2023 by Maurice Panchal MD at [facility] Joint Component Right: Knee [employer] [facility] [id number] 12/21/2027 [id number] / / [id number] Insert Acet E 0 Deg 36 Mm Hip X3 Trident - [id number] Implanted:Qty : 1 on 10/19/2023 by Maurice Panchal MD at [facility] Joint Component Right: Hip [employer] [facility] [id number] 07/05/2028 [id number] / [id number] / [id number] Stem Fem Std Offset 4 Hip Cllrd Insignia - [id number] Implanted:Qty : 1 on 10/19/2023 by Maurice Panchal MD at [facility] Joint Component Right: Hip [employer] [id number] 06/19/2028 [id number] / [id number] / [id number] Head Fem [id number] +0mm Offset Hip Biolox Delt Ceramic Tapr - [id number] Implanted:Qty : 1 on 10/19/2023 by Maurice Panchal MD at [facility] Joint Component Right: Hip [employer] [facility] [id number] 06/06/2028 [id number] / [id number] / [id number] Shell Acet Sz E [id number] 5 Clus H Tritanium Pressfit Francisca - [id number] Implanted:Qty : 1 on 10/19/2023 by Maurice Panchal MD at [facility] Joint Component Right: Hip [employer] [facility] [id number] 09/04/2028 [id number] / [id number] / [id number] Procedures Procedure Name Priority Date/Time Associated Diagnosis Comments XR HIP RIGHT (2-3 VIEWS) Routine 11/16/2023 11:05 AM EDT Aftercare following right hip joint replacement surgery HEMOGLOBIN AND HEMATOCRIT Routine 10/20/2023 4:14 AM EDT BASIC METABOLIC PANEL Routine 10/20/2023 4:14 AM EDT CULTURE, TISSUE Routine 10/19/2023 5:12 PM EDT CULTURE, TISSUE Routine 10/19/2023 4:58 PM EDT XR PELVIS (1-2 VIEWS) STAT 10/19/2023 9:56 AM EDT CULTURE WITH SMEAR, ACID FAST BACILLIUS Routine 10/19/2023 8:53 AM EDT Primary osteoarthritis of right hip CULTURE, FUNGUS Routine 10/19/2023 8:53 AM EDT Primary osteoarthritis of right hip CULTURE WITH SMEAR, ACID FAST BACILLIUS Routine 10/19/2023 8:50 AM EDT Primary osteoarthritis of right hip CULTURE, FUNGUS Routine 10/19/2023 8:50 AM EDT Primary osteoarthritis of right hip ANESTHESIA SPINAL BLOCK Routine 10/19/2023 7:53 AM EDT NV ARTHRP ACETBLR/PROX FEM PROSTC AGRFT/ALGRFT 10/19/2023 7:15 AM EDT Primary osteoarthritis of right hip Special Needs shahida/ rosa m POCT GLUCOSE Routine 10/19/2023 7:10 AM EDT SURGICAL PATHOLOGY Routine 10/19/2023 Primary osteoarthritis of right hip HM DIABETES EYE EXAM Routine 08/03/2023 PSA SCREENING Routine 07/06/2023 11:08 AM EST Screening PSA (prostate specific antigen) HEMOGLOBIN A1C Routine 07/06/2023 11:08 AM EST Type 2 diabetes mellitus without complication, without long-term current use of insulin (HCC) HM COLONOSCOPY Routine 06/01/2023 CT ABDOMEN PELVIS W IV CONTRAST Routine 04/07/2023 10:29 AM EST Carcinoma of ascending colon (HCC) Adenocarcinoma of cecum (HCC) Malignant neoplasm of intestine (HCC) HEPATITIS C ANTIBODY Routine 03/04/2023 1:05 PM EDT Need for hepatitis C screening test LIPID PANEL Routine 03/04/2023 1:05 PM EDT Mixed hyperlipidemia from Last 3 Months or Most Recently Relevant to Health Maintenance Results * XR HIP RIGHT (2-3 VIEWS) (CLINIC PERFORMED) (11/16/2023 11:05 AM EDT) Anatomical Region Laterality Modality Hip, Pelvis, Thigh Computed Radi ography Narrative 11/16/2023 12:07 PM EDT AP pelvis and lateral x-rays of the right hip were obtained and reviewed in the office today on 11/16/2023. ??X-rays revealed well-positioned Shahida hip arthroplasty components without issues or concerns. ??X-rays today were compared to postoperative AP pelvis x-ray completed on 10/19/2023 revealing no change in positioning of arthroplasty components. Karly DALLAS IMG DIAGNOSTIC IMAGI NG ORDERABLES * Hemoglobin and Hematocrit (10/20/2023 4:14 AM EDT) Hemoglobin 13.7 13.0 - 17.3 g/dL [facility] Hematocrit 41.8 38.0 - 52.0 % [facility] Blood BLOOD SPECIMEN / Unknown 10/20/2023 4:14 AM EDT 10/20/2023 5:02 AM EDT Maurice DALLAS HEMATOLOGY ORDERABLE S [facility] [address] [place] [address] * (ABNORMAL) Basic Metabolic Panel (10/20/2023 4:14 AM EDT) Sodium 138 135 - 145 mmol/L [facility] Potassium 4.8 3.5 - 5.3 mmol/L [facility] Chloride 102 98 - 107 mmol/L [facility] CO2 26 22 - 29 mmol/L [facility] Glucose 157(H) 70 - 99 mg/dL [facility] BUN 17 8 - 23 mg/dL [facility] Creatinine 1.1 0.7 - 1.3 mg/dL [facility] Anion Gap 10 2 - 17 mmol/L [facility] Osmolaliy Calculated 280 270 - 287 mOsm/kg [facility] Calcium 9.0 8.5 - 10.7 mg/dL [facility] Est, Glom Filt Rate 74 >=60 mL/min/1.7 3m?? [facility] Comment: VERIFIED by Discern Expert. GFR Interpretation: ? % OF KIDNEY GFR ?STAGE FUNCTION == ??> 90 ?Normal kidney function ? STAGE 1 90-100% 89 to 60 ?Mild loss of kidney function ? STAGE 2 80-60% 59 to 45 ?Mild to moderate loss of kidney function ? STAGE 3a 59-45% 44 to 30 ?Moderate to severe loss of kidney function ?? STAGE 3b 44-30% 29 to 15 ?Severe loss of kidney function ? STAGE 4 29-15% ??< 15 ?Kidney failure ? STAGE 5 <15% == Modified from National Kidney Foundation GFR Calculation performed using the CKD-EPI 2020 equation developed for use with IDMS traceable creatinine methods and is the calculation recommended by the National Kidney Foundation for estimating GFR in adults. Blood BLOOD SPECIMEN / Unknown 10/20/2023 4:14 AM EDT 10/20/2023 5:02 AM EDT Maurice DALLAS CHEMISTRY ORDERABLES Performing Organization Address [facility] de Phone Number [facility] [address] [place] [address] * Culture, Tissue (10/19/2023 5:12 PM EDT) Only the most recent of2 resultswithin the time period is included. FINAL REPORT No aerobic or anaerobic organisms isolated [facility] Gram Stain Result No Polymorphonuclear WBC [facility] Gram Stain Result No Bacteria Seen [facility] Tissue 10/19/2023 5:12 PM EDT 10/19/2023 5:14 PM EDT Maurice Panchal MD MICROBIOLOGY - GENER AL ORDERABLES Performing Organization Address [facility] de Phone Number [facility] [address] [place] [address] * XR PELVIS (1-2 VIEWS) (10/19/2023 9:56 AM EDT) Anatomical Region Laterality Modality Abdomen, Pelvis, Hip Computed Ra diography 10/19/2023 10:1 2 AM EDT Impressions 10/19/2023 10:12 AM EDT Post surgical changes of right hip total arthroplasty. Hardware components are in good alignment. No acute hardware complication. No acute fracture or dislocation. Expected postsurgical changes in the soft tissues about the hip including subcutaneous gas. Narrative 10/19/2023 10:12 AM EDT AP pelvis: 10/19/23 INDICATION: total hip arthroplasty 1V AP PELVIS M16.11,Unilateral primary osteoarthritis, right hip,ICD-10-CM COMPARISON: 08/20/2023 FINDINGS/ Procedure Note Everardo Mccracken MD - 10/19/2023 AP pelvis: 10/19/23 INDICATION: total hip arthroplasty 1V AP PELVIS M16.11,Unilateral primary osteoarthritis, righthip,ICD-10-CM COMPARISON: 08/20/2023 FINDINGS/ IMPRESSION: Post surgical changes of right hip total arthroplasty. Hardware componentsare in good alignment. No acute hardware complication. No acute fracture or dislocation. Expected postsurgical changes in the soft tissues about thehip including subcutaneous gas. Maurice DALLAS IMG DIAGNOSTIC IMAGI NG ORDERABLES * Culture with Smear, Acid Fast Bacillius (10/19/2023 8:53 AM EDT) Only the most recent of2 resultswithin the time period is included. FINAL REPORT No Acid-Fast bacilli Isolated [facility] ACID FAST No Acid Fast Bacilli Seen [facility] Tissue HIP JOINT SYNOVIAL FLUID / Unknown 10/19/2023 8:53 AM EDT Comment:Pre-op diagnosis: Primary osteoarthritis of right hip [M16.11] Narrative [facility] - 10/20/2023 1:01 PM EDT Pre-op diagnosis: Primary osteoarthritis of right hip [M16.11] Maurice Panchal MD MICROBIOLOGY - GENER AL ORDERABLES Performing Organization Address [facility] de Phone Number [facility] [address] [place] [address] * Culture, Fungus (10/19/2023 8:53 AM EDT) Only the most recent of2 resultswithin the time period is included. FINAL REPORT No fungi isolated after 28 days. [facility] JESUS result No Fungi Seen [facility] Tissue HIP JOINT SYNOVIAL FLUID / Unknown 10/19/2023 8:53 AM EDT Comment:Pre-op diagnosis: Primary osteoarthritis of right hip [M16.11] Narrative [facility] - 10/19/2023 10:39 PM EDT Pre-op diagnosis: Primary osteoarthritis of right hip [M16.11] Maurice Panchal MD MICROBIOLOGY - GENER AL ORDERABLES Performing Organization Address [facility] de Phone Number [facility] [address] [place] [phone] * Spinal Block (10/19/2023 7:53 AM EDT) Narrative Kwabena Wong MD - 10/19/2023 7:53 AM EDT Kwabena Wong MD ? 10/19/2023 ??8:21 AM Spinal Block Patient location during procedure: OR End time: 10/19/2023 7:59 AM Reason for block: primary anesthetic Staffing Performed: anesthesiologist Anesthesiologist: Kwabena Wong MD Performed by: Kwabena Wong MD Authorized by: Kwabena Wong MD ?? Spinal Block Patient position: sitting Prep: Betadine Patient monitoring: continuous pulse ox and oxygen Approach: midline Location: L3/L4 Provider prep: mask and sterile gloves Local infiltration: lidocaine Needle Needle type: Pencan Needle gauge: 24 G Needle length: 4 in Assessment CSF: clear Attempts: 1 Hemodynamics: stable Additional Notes Positive CSF, negative heme, no paresthesias. Preanesthetic Checklist Completed: patient identified, IV checked, site marked, risks and benefits discussed, surgical/procedural consents, equipment checked, pre-op evaluation, timeout performed, anesthesia consent given, oxygen available and monitors applied/VS acknowledged Kwabena Wong MD ANESTHESIA ORDERABLE S * POCT Glucose (10/19/2023 7:10 AM EDT) POC Glucose 96.0 65.0 - 110.0 mg/dL [facility] Comment:MP - AMB PACU Blood 10/19/2023 7:10 AM EDT 10/19/2023 7:10 AM EDT Maurice Panchal MD POINT OF CARE TEST O IVÁN Performing Organization Address [facility] Co de Phone Number [facility] [address] [place] [address] * Surgical Pathology (10/19/2023) Bone HIP JOINT SYNOVIAL FLUID / Unknown 10/19/2023 9:15 AM EDT Comment:Pre-op diagnosis: Primary osteoarthritis of right hip [M16.11] Maurice Panchal MD PATHOLOGY/CYTOLOGY O IVÁN Performing Organization Address [facility] Co de Phone Number [facility] [address] [place] [address] * DIABETES EYE EXAM (08/03/2023) Pathologist [facility] Diabetic Retinopathy Negative Historical Provider MD SERGIO Benedict * PSA Screening (07/06/2023 11:08 AM EST) Pathologist [facility] PSA, Screening 1.420 0.000 - 4.000 ng/mL [facility] Comment: PSA INTERPRETATION: PSA measured by Ja Harry electrochemiluminescence immunoassay ECLIA methodology. At this time, no major scientific/medical organization including the [place] [employer] and the [place] [employer] have specific recommendations in regard to prostate specific antigen (PSA) testing other than recommending that men at age 50 and above and those who are at high risk at age 40-45 and above be counseled in regard to the pros and cons of PSA testing. Guidelines for risk stratification 1. ??Below 1: ??Very low risk of prostate cancer 2. ??1-4: ? Approximately 15% risk of prostate cancer 3. ??4-10: ?25% risk of prostate cancer 4. ??>10: ? 50% risk of prostate cancer The use of PSA velocity (rate of rise of PSA over time) may also be useful in predicting the risk of prostate cancer. ??Most authorities recommend PSA testing on at least three occasions over a period of 18 months to get an accurate PSA velocity. References available by request. Blood BLOOD SPECIMEN / Unknown 07/06/2023 11:08 AM EST 07/06/2023 4:08 PM EST Cheo Santoyo DO CHEMISTRY ORDERABLES [facility] [address], [facility] [place] [address] * (ABNORMAL) Hemoglobin A1C (07/06/2023 11:08 AM EST) Hemoglobin A1C 6.8(H) 4.0 - 6.0 % [facility] Comment: HEMOGLOBIN A1C INTERPRETATION: The following arbitrary ranges may be used for interpretation of the results. However, factors such as duration of diabetes, adherence to therapy, and patient age should also be considered in assessing degree of blood glucose control. Hemoglobin A1C ? Avg. Blood Sugar 6% ? 135 mg/dL 7% ? 170 mg/dL 8% ? 205 mg/dL 9% ? 240 mg/dL 10% ?275 mg/dL A1C ?Glucose Control < 6.0 % ? Normal 6.0 - 6.9 % ? Abnormal 7.0 - 7.9 % ? Sub-Optimal Control > 8.0 % ? Inadequate Control Est. Avg. Glucose, WB 148 [facility] Est. Avg. Glucose-calculated 165 [facility] Blood BLOOD SPECIMEN / Unknown 07/06/2023 11:08 AM EST 07/06/2023 3:58 PM EST Cheo Santoyo DO CHEMISTRY ORDERABLES Performing Organization Address City/State/[facility] Co de Phone Number [facility] [address], [facility] [place] [phone] * HM COLONOSCOPY (06/01/2023) 06/01/2023 Historical Provider MD SERGIO Benedict * CT ABDOMEN PELVIS W IV CONTRAST Additional Contrast? None (04/07/2023 10:29 AM EST) Anatomical Region Laterality Modality Abdomen, Pelvis, Hip Computed To mography 04/07/2023 11:3 6 AM EST Impressions 04/07/2023 11:47 AM EST No evidence of recurrent or metastatic disease. Narrative 04/07/2023 11:[address] chest with contrast, CT abdomen pelvis with contrast: 04/07/23 INDICATION: colon cancer COMPARISON: 03/28/2021 PET/CT TECHNIQUE: Imaging from the thoracic inlet to the pubic symphysis following IV contrast in the portal venous phase. Axial 5 x 5 mm images with coronal reconstructions. CT scanning was performed using radiation dose reduction techniques when appropriate, per system protocols. FINDINGS: CHEST: Mediastinum and related regions: Heart normal size. ?No pericardial effusion. ?? Moderate three-vessel coronary artery calcification. Mild aortic valve calcification. ?? Vascular: ??No aortic aneurysm. ?? Other: Imaged portion of thyroid unremarkable. ??No enlarged lymph nodes. ?? Airways, Lungs, Pleura: Trachea and central airways are clear. ?No focal consolidation or pulmonary edema in the lungs. ?? No worrisome pulmonary nodule. ?? No pleural effusion. ? No pneumothorax. ?? Bones: ??No acute or aggressive bony abnormality. ?? Partially imaged cervical spine fusion hardware. Right shoulder arthroplasty. Additional chest findings, if any: ??None. ?? ABDOMEN and PELVIS: Liver and Biliary: ?? Liver normal size and contour. No lesion. ??No biliary dilatation. ?? No gallbladder wall thickening or pericholecystic fluid. No radiopaque gallstones. Pancreas: ??Normal. Spleen: ??Normal. Adrenal Glands: ??Normal. Urinary system: Mild scattered cortical scarring both kidneys. A few small hypodensities in the kidneys are too small to characterize but probably cysts. Otherwise Normal kidneys. ??No hydronephrosis. No obstructing urinary calculi. ?? Unremarkable urinary bladder. ?? Pelvic reproductive organs: ??Mildly enlarged prostate.. Peritoneal cavity: ??No free air or fluid. Vascular: ?? No aortic aneurysm. ?? Lymph nodes: ?? None enlarged. ?? Gastrointestinal: ??No bowel obstruction. ?? Partial right colectomy, no evident local recurrence.. ?? Colonic diverticulosis without diverticulitis. ?? Bones: ?? No acute or aggressive bony abnormality. ?? Lumbar spine fusion hardware. Additional abdomen and pelvis findings, if any: ?? None. ?? Procedure Note Georgi Brewer MD - 04/07/2023 CT chest with contrast, CT abdomen pelvis with contrast: 04/07/23 INDICATION: colon cancer COMPARISON: 03/28/2021 PET/CT TECHNIQUE: Imaging from the thoracic inlet to the pubic symphysisfollowing IV contrast in the portal venous phase. Axial 5 x 5 mm images with coronal reconstructions. CT scanning was performed using radiation dose reduction techniques when appropriate, per system protocols. FINDINGS: CHEST: Mediastinum and related regions: Heart normal size. No pericardial effusion. Moderate three-vesselcoronary artery calcification. Mild aortic valve calcification. Vascular: No aortic aneurysm. Other: Imaged portion of thyroid unremarkable. No enlarged lymph nodes. Airways, Lungs, Pleura: Trachea and central airways are clear. No focal consolidation orpulmonary edema in the lungs. No worrisome pulmonary nodule. No pleuraleffusion. No pneumothorax. Bones: No acute or aggressive bony abnormality. Partially imagedcervical spine fusion hardware. Right shoulder arthroplasty. Additional chest findings, if any: None. ABDOMEN and PELVIS: Liver and Biliary: Liver normal size and contour. No lesion. No biliary dilatation. No gallbladder wall thickening or pericholecystic fluid. No radiopaque gallstones. Pancreas: Normal. Spleen: Normal. Adrenal Glands: Normal. Urinary system: Mild scattered cortical scarring both kidneys. A few small hypodensities in the kidneys are too small to characterize but probablycysts. Otherwise Normal kidneys. No hydronephrosis. No obstructing urinarycalculi. Unremarkable urinary bladder. Pelvic reproductive organs: Mildly enlarged prostate.. Peritoneal cavity: No free air or fluid. Vascular: No aortic aneurysm. Lymph nodes: None enlarged. Gastrointestinal: No bowel obstruction. Partial right colectomy, noevident local recurrence.. Colonic diverticulosis without diverticulitis. Bones: No acute or aggressive bony abnormality. Lumbar spine fusion hardware. Additional abdomen and pelvis findings, if any: None. IMPRESSION: No evidence of recurrent or metastatic disease. Georgi Butterfield MD [facility] CT ORDERABLES * Hepatitis C Antibody (03/04/2023 1:05 PM EDT) Hepatitis C Ab Negative Negative [facility] Blood BLOOD SPECIMEN / Unknown 03/04/2023 1:05 PM EDT 03/04/2023 4:05 PM EDT Felicitas Monaco MD IMMUNOLOGY ORDERABL ES [facility] [address] [facility] [place] [address] * Lipid Panel (03/04/2023 1:05 PM EDT) Pathologist [facility] Cholesterol 115 100 - 200 mg/dL [facility] Comment: The National Cholesterol Education Program has published reference cholesterol values for cardiovascular risk to be: Less than 200 mg/dL ? = Low Risk 200 to 239 mg/dL ?= Borderline Risk 240mg/dL and greater ?= High Risk HDL 40 >=40 mg/dL [facility] Comment: The National Lipid Association and the National Cholesterol Education Program (NCEP) have set the guidelines for high-density lipoprotein (HDL) cholesterol in adults ages 18 and up. Triglycerides 90 0 - 149 mg/dL [facility] Comment: TRIGLYCERIDE INTERPRETATION: ?Recommended Fasting Triglyc Levels for Adults ?Desirable ?< 150 mg/dL ?Average ?< 200 mg/dL ?Borderline High ? 200 to 500 mg/dL ?Hypertriglyceridemic ? > 500 mg/dL ? LDL Cholesterol 57.0 0.0 - 100.0 mg/dL [facility] LDL/HDL Ratio 1.4 [facility] Chol/HDL Ratio 2.9 0.0 - 4.4 [facility] VLDL 18.0 5.0 - 40.0 mg/dL [facility] Blood BLOOD SPECIMEN / Unknown 03/04/2023 1:05 PM EDT 03/04/2023 4:03 PM EDT Felicitas Monaco MD CHEMISTRY ORDERABLE S Performing Organization Address City/State/[facility] Co de Phone Number [facility] [address] [place] [address] from Last 3 Months or Most Recently Relevant to Health Maintenance Advance Directives * Full Code (Latest Code Status on File) Date Activated Date Inactivated Comments 10/19/2023 10:29 AM 10/20/2023 2:22 PM * Full Code Date Activated Date Inactivated Comments 10/19/2023 6:23 AM 10/19/2023 10:29 AM * Full Code Date Activated Date Inactivated Comments 03/17/2023 7:45 AM 03/18/2023 3:38 PM * Full Code Date Activated Date Inactivated Comments 12/21/2022 6:09 AM 12/21/2022 9:24 PM Care Teams Account Underwriter Relationship Specialty Start Date End Date Cheo Santoyo DO [address] [place] [phone] PCP - General Family Medicine 07/06/23
--- OUTSIDE RECORDS SUMMARY | 2024-01-11 22:13 | XMS_ITS | Encounter Summary ---
Author Organization [facility] Address [address] [place] [address] Care Team Providers Care Cafe Manager Name Role Phone Cheo Santoyo Primary Care Provider [phone] Reason for Visit * Reason Onset Date Comments Lab results 10/26/2023 Encounter Details Date Type Department Care Team (Late st Contact Info) Description 10/26/2023 Telephone Orthopaedics - [place] [id number] [phone] Maurice Panchal MD [address] [address] Lab results Social History Tobacco Use Types Packs/Day Years Used Date Smoking Tobacco: Former Cigarettes 1 27 0 05/31/1969 - 05/31/1996 Smokeless Tobacco: Never Alcohol Use Standard Drinks/Week Comments Yes 7 (1 standard drink = 0.6 oz pur e alcohol) [facility] Utilities Answer Date Recorded In the past 12 months has [employer], gas, oil, or water [employer] threatened to shut off services in your [...] place to sleep or slept in a penitentiary (including now)? No 10/19/2023 Food Insecurity Answer [...] 9:00 AM EDT Office Visit Neurology - [facility] [address] [facility] [address] [place] [address] Martell Calderon MD [address] [facility] [address] [place] [address] TREMORS/ MEDICARE, FOR LIFE 03/28/2024 8:30 AM EDT Office Visit Primary Care - [address] [phone] [address]oyo [address] [phone] AWV 04/06/2024 9:45 AM EST Lab [facility] - [facility] [address] [facility] [address] [place] [address] CBCMP,CEA,FEST 04/06/2024 10:15 AM EST Office Visit [facility] - [facility] [address] [facility] [address] [place] [address] Georgi Butterfield MD [address] [facility] [address] [facility] [address] [place] [address] 6 MTH FU W/LABS, REV SCAN 04/13/2024 9:30 AM EST Office Visit Surgical Oncology - [facility] [address] [facility] [address] [place] [address] Delvis Cheek MD [address] [facility] [address] [place] [phone] 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 06/19/2024 10:30 AM EST Office Visit Orthopaedics- [place] [address] [facility] [address] [place] [phone] Karly Bautista, BURT [address] [facility] [address] [place] [address] annual visit from date of surgery May/Jul 2024 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 documented as of this encounter Visit Diagnoses Diagnosis Status post total hip replacement, right- Primary documented in this encounter Additional Health Concerns Assessment Noted Time A fall risk assessment has been complete d for the patient 07/06/2023 9:36 AM EST documented as of this encounter Care Teams Cafe Manager Relationship Specialty Start Date End Date Cheo Santoyo DO [address] [place] [phone] PCP - General Family Medicine 07/06/23 documented as of this encounter
--- OUTSIDE RECORDS SUMMARY | 2024-01-11 22:13 | XMS_ITS | Encounter Summary ---
Author Organization [facility] Address [address] [place] [address] Care Team Providers Care Keypunch Operators Supervisor Name Role Phone Cheo Santoyo Primary Care Provider [phone] Encounter Details Date Type Department Care Team (Latest Contact Info) Description 10/12/2023 Travel Social History Tobacco Use Types Packs/Day [...] 9:00 AM EDT Office Visit Neurology - [facility] [address] [facility] [address] [place] [address] Martell Calderon MD [address] [facility] [address] [place] [address] TREMORS/ MEDICARE, FOR LIFE 03/28/2024 8:30 AM EDT Office Visit Primary Care - [address] [phone] Cheo Santoyo DO [address] [place] [phone] AWV 04/06/2024 9:45 AM EST Lab [facility] - [facility] [address] [facility] [address] [place] [address] CBCMP,CEA,FEST 04/06/2024 10:15 AM EST Office Visit [facility] - [facility] [address] [facility] [address] [place] [address] Georgi Butterfield MD [address] [place] [address] 6 MTH FU W/LABS, REV SCAN 04/13/2024 9:30 AM EST Office Visit Surgical Oncology - [facility] [address] [facility] [address] [place] [address] Delvis Cheek MD [address] [facility] [address] [place] [phone] 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 06/19/2024 10:30 AM EST Office Visit Orthopaedics- [place] [address] [facility] [address] [place] [phone] Karly Bautista, PA [address] [facility] [address] [place] [address] annual visit from date of surgery May/Jul 2024 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 documented as of this encounter Visit Diagnoses Not on filedocumented in this encounter Additional Health Concerns Assessment Noted Time A fall risk assessment has been complete d for the patient 07/06/2023 9:36 AM EST documented as of this encounter Care Teams Keypunch Operators Supervisor Relationship Specialty Start Date End Date Cheo Santoyo DO [address] [place] [phone] PCP - General Family Medicine 07/06/23 documented as of this encounter
--- OUTSIDE RECORDS SUMMARY | 2024-01-11 22:13 | XMS_ITS | Encounter Summary ---
Author Organization Jose Alejandro Pantoja [facility] Address [address] [place] [address] Care Team Providers Care Wrap Turner Name Role Phone Cheo Santoyo Moshe REYES Primary Care Provider Encounter Details Date Type Department Care Team (Late st Contact Info) Description 10/05/2023 Orders Only [facility] Hematology & Oncology - [address] [place] [address] Georgi Butterfield MD 3510 [facility] [address] [place] [address] Iron deficiency anemia, unspecified iron deficiency anemia type (Primary Dx); Malignant neoplasm of intestine (HCC) Social History [...] 9:00 AM EDT Office Visit Neurology - [facility] [address] [facility] [address] [place] [address] Martell Calderon MD 214 [facility] [address] [place] [address] TREMORS/ MEDICARE, FOR LIFE 03/28/2024 8:30 AM EDT Office Visit Primary Care - [address] [address] Cheo Santoyo DO [address] [place] [address] AWV 04/06/2024 9:45 AM EST Lab [place] [facility] - [facility] 2084 [facility] [address] [place] [address] CBCMP,CEA,FEST 04/06/2024 10:15 AM EST Office Visit [place] [facility] - [facility] 2084 [facility] [address] [place] [address] Georgi Butterfield MD [address] [place] [address] 6 MTH FU W/LABS, REV SCAN 04/13/2024 9:30 AM EST Office Visit Surgical Oncology - [facility] 90[address] [facility] [address] [place] [address] Delvis Cheek MD 125 [facility] 660 [place] [address] 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 documented as of this encounter Results * CEA (Serial Monitor) (10/07/2023 10:11 AM EDT) CEA (SERIAL MONITOR) 2.1 0.0 - 4.7 ng/mL [facility] Comment: ? Nonsmokers ?<3.9 ? Smokers ? <5.6 [facility] Electrochemiluminescence Immunoassay (ECLIA) Values obtained with different assay methods or kits cannot be used interchangeably. ??Results cannot be interpreted as absolute evidence of the presence or absence of malignant disease. Performed At: [address] [id number] Ajit Swift MD Ph:[phone] Test Performed at: [facility] [address] [facility] [place] [address] Blood BLOOD SPECIMEN / Unknown 10/07/2023 10:11 AM EDT 10/07/2023 12:28 PM EDT Georgi Butterfield MD CHEMISTRY ORDERABLE S Performing Organization Address [facility] de Phone Number [facility] [address] [place] [address] * Soluble transferrin receptor (10/07/2023 10:11 AM EDT) Soluble Transferrin Recept 15.9 12.2 - 27.3 nmol/L [facility] Comment: Performed At: [facility] [id number] Ajit Swift MD Ph:[phone] Test Performed at: [facility] [address] [facility] [place] [address] Blood BLOOD SPECIMEN / Unknown 10/07/2023 10:11 AM EDT 10/07/2023 12:28 PM EDT Georgi Butterfield MD HEMATOLOGY ORDERABL ES Performing Organization Address [facility] de Phone Number [facility] [address] [place] [address] * Reticulocytes (10/07/2023 10:11 AM EDT) RBC 5.14 4.00 - 5.60 x10e6/mcL [facility] Retic Ct Pct 1.4 0.5 - 2.0 % [facility] Retic Ct Abs 0.0735 0.0235 - 0.1220 /mcL [facility] Comment: Test Performed at: [facility] [address] [facility] [place] [address] Blood BLOOD SPECIMEN / Unknown 10/07/2023 10:11 AM EDT 10/07/2023 12:28 PM EDT Georgi Butterfield MD HEMATOLOGY ORDERABL ES Performing Organization Address [facility] Co de Phone Number [facility] [address] [place] [address] * Ferritin (10/07/2023 10:11 AM EDT) Pathologist [facility] Ferritin 112.1 30.0 - 400.0 ng/mL [facility] Comment: Test Performed at: [facility] [address] [facility] [place] [address] Blood BLOOD SPECIMEN / Unknown 10/07/2023 10:11 AM EDT 10/07/2023 12:28 PM EDT Georgi Butterfield MD CHEMISTRY ORDERABLE S Performing Organization Address [facility] de Phone Number [facility] [address] [place] [address] * Iron and TIBC (10/07/2023 10:11 AM EDT) [facility] Iron 85 59 - 158 mcg/dL [facility] UIBC 239.2 112.0 - 347.0 mcg/dL [facility] TIBC 325 250 - 450 mcg/dL [facility] Iron % Saturation 26 20 - 40 % [facility] Comment: Test Performed at: [facility] [address] [facility] [place] [address] Serum BLOOD SPECIMEN / Unknown 10/07/2023 10:11 AM EDT 10/07/2023 12:28 PM EDT Georgi Butterfield MD CHEMISTRY ORDERABLE S Performing Organization Address [facility] Co de Phone Number [facility] [address] [place] [address] * Vitamin B12 (10/07/2023 10:11 AM EDT) Pathologist [facility] Vitamin B-12 432 232 - 1245 pg/mL [facility] Comment: Effective 05/05/17 Vitamin B12 Methodology Change - Vitamin B12 Reference Range has been revised. Test Performed at: [facility] [address] [facility] [place] [address] Blood BLOOD SPECIMEN / Unknown 10/07/2023 10:11 AM EDT 10/07/2023 12:28 PM EDT Georgi Butterfield MD CHEMISTRY ORDERABLE S Performing Organization Address [facility] de Phone Number [facility] [address] [place] [address] * Folate (10/07/2023 10:11 AM EDT) Pathologist [facility] Folate 6.86 4.80 - 24.20 ng/mL [facility] Comment: Test Performed at: [facility] [address] [facility] [place] [address] Blood BLOOD SPECIMEN / Unknown 10/07/2023 10:11 AM EDT 10/07/2023 12:28 PM EDT Georgi Butterfield MD CHEMISTRY ORDERABLE S Performing Organization Address [facility] de Phone Number [facility] [address] [place] [address] * (ABNORMAL) Comprehensive Metabolic Panel (10/07/2023 10:11 AM EDT) [facility] Sodium 140 135 - 145 mmol/L [facility] Potassium 4.6 3.5 - 5.3 mmol/L [facility] Chloride 103 98 - 107 mmol/L [facility] CO2 23 22 - 29 mmol/L [facility] Glucose 148(H) 70 - 99 mg/dL [facility] BUN 17 8 - 23 mg/dL [facility] Creatinine 1.1 0.7 - 1.3 mg/dL [facility] Anion Gap 14 2 - 17 mmol/L [facility] Osmolaliy Calculated 284 270 - 287 mOsm/kg [facility] Calcium 9.9 8.5 - 10.7 mg/dL [facility] Total Protein 6.6 5.7 - 8.3 g/dL [facility] Albumin 4.7 3.5 - 5.2 g/dL [facility] Globulin 1.9 1.9 - 4.4 g/dL [facility] Albumin/Globulin Ratio 2.42 1.00 - 2.70 [facility] Total Bilirubin 0.65 0.00 - 1.20 mg/dL [facility] Alk Phosphatase 77 40 - 130 unit/L [facility] AST 21 0 - 50 unit/L [facility] ALT 29 0 - 50 unit/L [facility] Est, Glom Filt Rate 74 >=60 mL/min/1.7 3m? [facility] Comment: VERIFIED by Discern Expert. GFR Interpretation: [...] estimating GFR in adults. Test Performed at: [facility] [address] [facility] 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
--- OUTSIDE RECORDS SUMMARY | 2024-01-11 22:13 | XMS_ITS | Encounter Summary ---
Author Organization Jose Alejandro Pantoja [facility] Address [address] [place] [address] Care Team Providers Care Bus Greaser Name Role Phone Cheo Santoyo Primary Care Provider [phone] Encounter Details Date Type Department Care Team (Late st Contact Info) Description 11/01/2023 Home Visit [facility] [place] Maurice Panchal MD [address] [address] Social History Tobacco Use Types Packs/Day Years Used Date Smoking Tobacco: Former Cigarettes 1 27 0 05/31/1969 - 05/31/1996 Smokeless Tobacco: Never Alcohol Use Standard Drinks/Week Comments Yes 7 (1 standard drink = 0.6 oz pur e alcohol) [facility] Utilities Answer Date Recorded In the past 12 months has [employer], gas, oil, or water [employer] threatened to shut off services in your [...] place to sleep or slept in a custodial (including now)? No 10/19/2023 Food Insecurity Answer [...] AM EDT Office Visit Neurology - Maryan Jacobsen Dr. [address] [place] [phone] Martell Calderon MD 2145 [facility] [address] [place] [address] TREMORS/ MEDICARE, FOR LIFE 03/28/2024 8:30 AM EDT Office Visit Primary Care - [address] [address] Cheo Santoyo, DO 1112 [place] [phone] AWV 04/06/2024 9:45 AM EST Lab [place] [facility] - [facility] 2084 [facility] [address] [place] [address] CBCMP,CEA,FEST 04/06/2024 10:15 AM EST Office Visit [place] [facility] - [facility] 2084 [facility] [address] [place] [address] Georgi Butterfield MD [address] [place] [address] 6 MTH FU W/LABS, REV SCAN 04/13/2024 9:30 AM EST Office Visit Surgical Oncology - [facility] 2084 [facility] [address] [place] [address] Delvis Cheek MD 125 [facility] [address] [place] [address] 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 documented as of this encounter Visit Diagnoses Not on filedocumented in this encounter Additional Health Concerns Assessment Noted Time A fall risk assessment has been complete d for the patient 07/06/2023 9:36 AM EST documented as of this encounter Care Teams Bus Greaser Relationship Specialty Start Date End Date Cheo Santoyo DO [address] [place] [phone] PCP - General Family Medicine 07/06/23 documented as of this encounter
--- OUTSIDE RECORDS SUMMARY | 2024-01-11 22:13 | XMS_ITS | Encounter Summary ---
Author Organization Jose Alejandro Pantoja [facility] Address [address] [place] [address] Care Team Providers Care Special Effects Designer Name Role Phone Cheo Santoyo DO Primary Care Provider [phone] Reason for Visit * Reason Onset Date Comments Call Patient 09/29/2023 Encounter Details Date Type Department Care Team (Late st Contact Info) Description 09/29/2023 Telephone Orthopaedics - Emy Saeed Dr. [address] [place] [address] Bonny Mcarthur PA 9580 [facility] 17 [facility] 105 [place] [address] Call Patient Social History Tobacco Use Types Packs/Day Years Used Date Smoking Tobacco: Former Cigarettes 1 27 0 05/31/1969 - 05/31/1996 Smokeless Tobacco: Never Alcohol Use Standard Drinks/Week Comments Yes 4 (1 standard drink = 0.6 oz pur e alcohol) [facility] Utilities Answer Date Recorded In the past 12 months has [employer], gas, oil, or water [employer] threatened to shut off services in your [...] Upcoming Encounters Date Type Department Care Team (Francia coley Contact Info) Description 03/24/2024 9:00 AM EDT Office Visit Neurology - [facility] 2[address] [facility] [address] [place] [address] Martell Calderon MD 2144 [facility] [address] [place], [place] [address] TREMORS/ MEDICARE, FOR LIFE 03/28/2024 8:30 AM EDT Office Visit Primary Care - [address] [address] Cheo Santoyo [address] [address] AWV 04/06/2024 9:45 AM EST Lab [place] [facility] - [facility] 2084 [facility] [address] [place] [address] CBCMP,CEA,FEST 04/06/2024 10:15 AM EST Office Visit [place] [facility] - [facility] 2084 [facility] [address] [place] [address] Georgi Butterfield MD 3510 [facility] 17N [facility] 225 [place] [address] 6 MTH FU W/LABS, REV SCAN 04/13/2024 9:30 AM EST Office Visit Surgical Oncology - [facility] 2084 [facility] [address] [place] [address] Delvis Cheek MD 125 [facility] 660 [place] [phone] 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 100 [place] [address] Karly Bautista, BURT 180 [facility] 301 [place] [address] annual visit from date of surgery May/Jul 2024 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 documented as of this encounter Visit Diagnoses Not on filedocumented in this encounter Additional Health Concerns Assessment Noted Time A fall risk assessment has been complete d for the patient 07/06/2023 9:36 AM EST documented as of this encounter Care Teams Special Effects Designer Relationship Specialty Start Date End Date Cheo Santoyo DO [address] [place] [phone] PCP - General Family Medicine 07/06/23 documented as of this encounter
--- OUTSIDE RECORDS SUMMARY | 2024-01-11 22:13 | XMS_ITS | Encounter Summary ---
Author Organization Jose Alejandro Pantoja [facility] Address [address] [employer] [place] [address] Care Team Providers Care Director Of Volunteer Services Name Role Phone Cheo Santoyo Moshe REYES Primary Care Provider [phone] Encounter Details Date Type Department Care Team (Late st Contact Info) Description 11/16/2023 11:05 AM EDT Ancillary Procedure Orthopaedics- Les Valencia [address] [address] Social History Tobacco Use Types Packs/Day Years Used Date Smoking Tobacco: Former Cigarettes 1 27 0 05/31/1969 - 05/31/1996 Smokeless Tobacco: Never Alcohol Use Standard Drinks/Week Comments Yes 4 (1 standard drink = 0.6 oz pur e alcohol) [facility] Utilities Answer Date Recorded In the past 12 months has [employer], gas, oil, or water company threatened to [...] place to sleep or slept in a jail (including now)? No 10/19/2023 Food Insecurity Answer [...] Office Visit Neurology - Maryan Jacobsen Dr. [address] [place] [address] Martell Calderon MD 5 [facility] [address] [place] [address] TREMORS/ MEDICARE, FOR LIFE 03/28/2024 8:30 AM EDT Office Visit Primary Care - [facility] 1112 [place] [address] Cheo Santoyo DO 1112 [place] [address] AWV 04/06/2024 9:45 AM EST Lab [place] [facility] - [facility] 2084 [facility] [address] [place] [address] CBCMP,CEA,FEST 04/06/2024 10:15 AM EST Office Visit [place] [facility] - [facility] 2084 [facility] [address] [place] [address] Georgi Butterfield MD [address] [place] [address] 6 MTH FU W/LABS, REV SCAN 04/13/2024 9:30 AM EST Office Visit Surgical Oncology - [facility] 2084 [facility] [address] [place] [address] Delvis Cheek MD 125 [facility] 660 [place] [address] 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 documented as of this encounter Procedures Procedure Name Priority Date/Time Associated Diagnosis Comments XR HIP RIGHT (2-3 VIEWS) Routine 11/16/2023 11:05 AM EDT Aftercare following right hip joint replacement surgery documented in this encounter Results * XR HIP RIGHT (2-3 VIEWS) (CLINIC PERFORMED) (11/16/2023 11:05 AM EDT) Anatomical Region Laterality Modality Hip, Pelvis, Thigh Computed Radi ography Narrative 11/16/2023 12:07 PM EDT AP pelvis and lateral x-rays of the right hip were obtained and reviewed in the office today on 11/16/2023. ??X-rays revealed well-positioned [place] hip arthroplasty components without issues or concerns. ??X-rays today were compared to postoperative AP pelvis x-ray completed on 10/19/2023 revealing no change in positioning of arthroplasty components. Karly W Lily [facility] IMAGI NG ORDERABLES documented in this encounter Visit Diagnoses Not on filedocumented in this encounter Additional Health Concerns Assessment Noted Time A fall risk assessment has been complete d for the patient 07/06/2023 9:36 AM EST documented as of this encounter Care Teams Director Of Volunteer Services Relationship Specialty Start Date End Date Cheo Santoyo DO [address] [place] [phone] PCP - General Family Medicine 07/06/23 documented as of this encounter
--- OUTSIDE RECORDS SUMMARY | 2024-01-11 22:13 | XMS_ITS | Encounter Summary ---
Author Organization Jose Alejandro Pantoja [facility] Address [address] [employer] [place] [address] Care Team Providers Care Research Chief Engineer Name Role Phone Cheo Santoyo Primary Care Provider [phone] Reason for Visit * Reason Onset Date Comments Medication Problem 10/21/2023 Encounter Details Date Type Department Care Team (Late st Contact Info) Description 10/21/2023 Telephone Orthopaedics - Maryan Jacobsen Dr. [address] [place] [address] Maurice Panchal MD [address] [place], [place] [phone] Medication Problem Social History Tobacco Use Types Packs/Day Years Used Date Smoking Tobacco: Former Cigarettes 1 27 0 05/31/1969 - 05/31/1996 Smokeless Tobacco: Never Alcohol Use Standard Drinks/Week Comments Yes 7 (1 standard drink = 0.6 oz pur e alcohol) [facility] Utilities Answer Date Recorded In the past 12 months has [employer], gas, oil, or water [employer] threatened to shut off services in your [...] place to sleep or slept in a chcf (including now)? No 10/19/2023 Food Insecurity Answer [...] 9:00 AM EDT Office Visit Neurology - [facility] 2144 [facility] [address] [place] [address] Martell Calderon MD 2144 [facility] [address] [place] [address] TREMORS/ MEDICARE, FOR LIFE 03/28/2024 8:30 AM EDT Office Visit Primary Care - [address] [address] Cheo Santoyo [address] [address] AWV 04/06/2024 9:45 AM EST Lab [place] [facility] - [facility] 2084 [facility] [address] [place] [address] CBCMP,CEA,FEST 04/06/2024 10:15 AM EST Office Visit [place] [facility] - [facility] 2084 [facility] [address] [place] [address] Georgi Butterfield MD 3510 [facility] 17N [facility] 225 [place] [address] 6 MTH FU W/LABS, REV SCAN 04/13/2024 9:30 AM EST Office Visit Surgical Oncology - [facility] 2084 [facility] [address] [place] [address] Delvis Cheek MD 125 [facility] 660 [place] [address] 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
--- OUTSIDE RECORDS SUMMARY | 2024-01-11 22:13 | XMS_ITS | Encounter Summary ---
Author Organization [facility] Address [address] [email or web address] [address] Care Team Providers Care Division Head Name Role Phone Cheo Santoyo DO Primary Care Provider [phone] Reason for Visit * Reason Onset Date Comments Call Patient 10/26/2023 Encounter Details Date Type Department Care Team (Late st Contact Info) Description 10/26/2023 Telephone Orthopaedics - [address] [facility] 110, [facility] 105 [place] [address] Maurice Elizabeth PA 3030 [facility] 17 [facility] 105 [place] [address] Call Patient Social History Tobacco Use Types Packs/Day Years Used Date Smoking Tobacco: Former Cigarettes 1 27 0 05/31/1969 - 05/31/1996 Smokeless Tobacco: Never Alcohol Use Standard Drinks/Week Comments Yes 7 (1 standard drink = 0.6 oz pur e alcohol) [facility] Utilities Answer Date Recorded In the past 12 months has [employer], gas, oil, or water [employer] threatened to shut off services in your [...] place to sleep or slept in a assisted (including now)? No 10/19/2023 Food Insecurity Answer [...] 9:00 AM EDT Office Visit Neurology - [facility] [address] [facility] [address] [place] [address] Martell Calderon MD 2144 [facility] [place] [address] [place], [place] [id number] TREMORS/ MEDICARE, FOR LIFE 03/28/2024 8:30 AM EDT Office Visit Primary Care - [address] [address] Cheo Santoyo [address] [address] AWV 04/06/2024 9:45 AM EST Lab [place] [facility] - [facility] 2084 [facility] [address] [place] [address] CBCMP,CEA,FEST 04/06/2024 10:15 AM EST Office Visit [place] [facility] - [facility] 2084 [facility] [address] [place] [address] Georgi Butterfield MD 3510 [facility] 17N [facility] 225 [place] [address] 6 MTH FU W/LABS, REV SCAN 04/13/2024 9:30 AM EST Office Visit Surgical Oncology - [facility] 2084 [facility] [address] [place] [address] Delvis Cheek MD 125 [facility] 660 [place] [phone] 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 06/19/2024 10:30 AM EST Office Visit Orthopaedics- Les Valencia 917 [facility] 100 [place] [address] Karly Bautista, BURT 180 [facility] 301 [place] [address] annual visit from date of surgery May/Jul 2024 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 documented as of this encounter Visit Diagnoses Not on filedocumented in this encounter Additional Health Concerns Assessment Noted Time A fall risk assessment has been complete d for the patient 07/06/2023 9:36 AM EST documented as of this encounter Care Teams Division Head Relationship Specialty Start Date End Date Cheo Satnoyo DO [address] [place] [phone] PCP - General Family Medicine 07/06/23 documented as of this encounter
--- OUTSIDE RECORDS SUMMARY | 2024-01-11 22:13 | XMS_ITS | Encounter Summary ---
Author Organization [facility] Address [address] [place] [address] Care Team Providers Care B2B Appointment Setter Name Role Phone YarelisCheo friend Moshe REYES Primary Care Provider [phone] Encounter Details Date Type Department Care Team (Late st Contact Info) Description 10/16/2023 Prep for Procedure Orthopaedics - [place] [address] [address] [place] [address] Maurice Elizabeth PA [address] [address] Social History Tobacco Use Types Packs/Day Years Used Date Smoking Tobacco: Former Cigarettes 1 27 0 05/31/1969 - 05/31/1996 Smokeless Tobacco: Never Alcohol Use Standard Drinks/Week Comments Yes 4 (1 standard drink = 0.6 oz pur e alcohol) [facility] Utilities Answer Date Recorded In the past 12 months has [employer], gas, oil, or water [employer] threatened to shut off services in your [...] place to sleep or slept in a long-term (including now)? No 10/19/2023 Food Insecurity Answer [...] 9:00 AM EDT Office Visit Neurology - [facility] 2[address] [facility] [place] [facility] [address] [place] [address] Martell Calderon MD 2144 [facility] [address] [place] [address] TREMORS/ MEDICARE, FOR LIFE 03/28/2024 8:30 AM EDT Office Visit Primary Care - [facility] [address] [place] [phone] Cheo Santoyo DO 1112 [place] [address] AWV 04/06/2024 9:45 AM EST Lab [facility] [facility] - [facility] 2084 [facility] [address] [place] [address] CBCMP,CEA,FEST 04/06/2024 10:15 AM EST Office Visit [place] [facility] - [facility] 2084 [facility] [address] [place] [address] Georgi Butterfield MD [address] [place], [place] [phone] 6 MTH FU W/LABS, REV SCAN 04/13/2024 9:30 AM EST Office Visit Surgical Oncology - [facility] 2084 [facility] [address] [place] [address] Delvis Cheek MD 125 [facility] 2[facility] [address] [place] [address] 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 06/19/2024 10:30 AM EST Office Visit Orthopaedics- Les Valencia [address] [facility] 100 [place] [address] Karly Bautista, BURT 180 [facility] 301 [place] [address] annual visit from date of surgery May/Jul 2024 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 documented as of this encounter Visit Diagnoses Not on filedocumented in this encounter Additional Health Concerns Assessment Noted Time A fall risk assessment has been complete d for the patient 07/06/2023 9:36 AM EST documented as of this encounter Care Teams B2B Appointment Setter Relationship Specialty Start Date End Date Cheo Santoyo DO [address] [place] [phone] PCP - General Family Medicine 07/06/23 documented as of this encounter
--- OUTSIDE RECORDS SUMMARY | 2024-01-11 22:13 | XMS_ITS | Encounter Summary ---
Author Organization Jose Alejandro Panto[facility] Address [address] [place] [address] Care Team Providers Care Fruit Checker Name Role Phone Cheo Santoyo Primary Care Provider [phone] Reason for Visit * Reason Onset Date Comments Medication Request 12/23/2023 Encounter Details Date Type Department Care Team (Late st Contact Info) Description 12/23/2023 Telephone [facility] - [facility] 58[address] [facility] [address] [place] [address] Georgi Butterfield MD [address] [place] [address] Medication Request Social History Tobacco Use Types Packs/Day Years Used Date Smoking Tobacco: Former Cigarettes 1 27 0 05/31/1969 - 05/31/1996 Smokeless Tobacco: Never Alcohol Use Standard Drinks/Week Comments Yes 4 (1 standard drink = 0.6 oz pur e alcohol) [facility] Utilities Answer Date Recorded In the past 12 months has [employer], gas, oil, or water [employer] threatened to shut off services in your [...] place to sleep or slept in a prison (including now)? No 10/19/2023 Food Insecurity Answer [...] 9:00 AM EDT Office Visit Neurology - [facility] [place] 2144 [facility] [address] [place] [address] Martell Calderon MD 2144 [facility] [address] [place] [address] TREMORS/ MEDICARE, FOR LIFE 03/28/2024 8:30 AM EDT Office Visit Primary Care - [address] [address] Cheo Santoyo [address] [address] AWV 04/06/2024 9:45 AM EST Lab [place] [facility] - [facility] [place] 2084 [facility] [address] [place] [address] CBCMP,CEA,FEST 04/06/2024 10:15 AM EST Office Visit [place] [facility] - [facility] [place] 2084 [facility] [address] [place] [address] Georgi Butterfield MD 3510 [facility] [address] [facility] 225 [place] [address] 6 MTH FU W/LABS, REV SCAN 04/13/2024 9:30 AM EST Office Visit Surgical Oncology - [facility] [place] 2084 [facility] [address] [place] [address] Delvis Cheek MD 125 [facility] 660 [place] [phone] 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 06/19/2024 10:30 AM EST Office Visit Orthopaedics- Les Valencia 615 [facility] 100 [place] [address] Karly Bautista, BURT 180 [facility] 301 [place] [address] annual visit from date of surgery May/Jul 2024 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 documented as of this encounter Visit Diagnoses Not on filedocumented in this encounter Additional Health Concerns Assessment Noted Time A fall risk assessment has been complete d for the patient 07/06/2023 9:36 AM EST documented as of this encounter Care Teams Fruit Checker Relationship Specialty Start Date End Date Cheo Sanotyo DO [address] [place] [phone] PCP - General Family Medicine 07/06/23 documented as of this encounter
--- OUTSIDE RECORDS SUMMARY | 2024-01-11 22:13 | XMS_ITS | Encounter Summary ---
Author Organization Jose Alejandro Pantoja [facility] Address [address] [place] [address] Care Team Providers Care School Age Lead Teacher Name Role Phone Cheo Santoyo DO Primary Care Provider [phone] Encounter Details Date Type Department Care Team ([facility] st Contact Info) Description 11/16/2023 Telephone Primary Care - [address] [address] Cheo Santoyo DO [address] [place] [address] Social History Tobacco Use Types Packs/Day Years Used Date Smoking Tobacco: Former Cigarettes 1 27 0 05/31/1969 - 05/31/1996 Smokeless Tobacco: Never Alcohol Use Standard Drinks/Week Comments Yes 4 (1 standard drink = 0.6 oz pur e alcohol) [facility] Utilities Answer Date Recorded In the past 12 months has [employer], [employer], oil, or water [employer] threatened to shut off services in your [...] 9:00 AM EDT Office Visit Neurology - [facility] 2[address] [facility] [address] [place] [phone] Martell Calderon MD 2144 [facility] [address] [place] [address] TREMORS/ MEDICARE, FOR LIFE 03/28/2024 8:30 AM EDT Office Visit Primary Care - [address] [phone] Cheo Santoyo, DO 1112 [place] [address] AWV 04/06/2024 9:45 AM EST Lab [place] [facility] - [facility] 2084 [facility] [address] [place] [address] CBCMP,CEA,FEST 04/06/2024 10:15 AM EST Office Visit [place] [facility] - [facility] 2084 [facility] [address] [place] [address] Georgi Butterfield MD 3510 [facility] 17N [facility] 225 [place], [place] [phone] 6 MTH FU W/LABS, REV SCAN 04/13/2024 9:30 AM EST Office Visit Surgical Oncology - [facility] 2084 [facility] [address] [place] [address] Delvis Cheek MD 125 [facility] [address] [place] [address] 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 06/19/2024 10:30 AM EST Office Visit Orthopaedics- Les Valencia [address] [facility] [address] [place] [address] Karly Bautista, BURT [address] [facility] 301 [place] [address] annual visit from date of surgery May/Jul 2024 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 documented as of this encounter Procedures Procedure Name Priority Date/Time Associated Diagnosis Comments DIABETES EYE EXAM Routine 08/03/2023 documented in this encounter Results * DIABETES EYE EXAM (08/03/2023) Diabetic Retinopathy Negative Historical Provider MD SERGIO Benedict documented in this encounter Visit Diagnoses Not on filedocumented in this encounter Additional Health Concerns Assessment Noted Time A fall risk assessment has been complete d for the patient 07/06/2023 9:36 AM EST documented as of this encounter Care Teams School Age Lead Teacher Relationship Specialty Start Date End Date Cheo Santoyo DO [address] [place] [phone] PCP - General Family Medicine 07/06/23 documented as of this encounter
--- OUTSIDE RECORDS SUMMARY | 2024-01-11 22:13 | XMS_ITS | Encounter Summary ---
Author Organization [facility] Address [address] [address] Care Team Providers Care Channel Rebuilder Name Role Phone Cheo Santoyo Primary Care Provider [phone] Encounter Details Date Type Department Care Team (Late st Contact Info) Description 10/07/2023 Orders Only [place] [facility] - [facility] [address] [facility] [address] [place] [address] Georgi Butterfield MD [address] [place] [address] Iron deficiency anemia, unspecified iron deficiency anemia type (Primary Dx); Carcinoma of ascending colon (HCC) Social History Tobacco Use Types Packs/Day [...] Neurology - [address] [facility] [place] [address] [place] [address] Martell Calderon MD 2145 [facility] [address] [place] [address] TREMORS/ MEDICARE, FOR LIFE 03/28/2024 8:30 AM EDT Office Visit Primary Care - [address] [address] Cheo Santoyo DO [address] [place] [address] AWV 04/06/2024 9:45 AM EST Lab [place] [facility] 2084 [facility] [address] [place] [address] CBCMP,CEA,FEST 04/06/2024 10:15 AM EST Office Visit [place] [facility] - [facility] [place] 2084 [facility] [address] [place] [address] Georgi Butterfield MD [address] [place] [address] 6 MTH FU W/LABS, REV SCAN 04/13/2024 9:30 AM EST Office Visit Surgical Oncology - [facility] 2088 [facility] [address] [place] [address] Delvis Cheek MD 125 [facility] [address] [place] [address] 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 [address] [address] [place] [address] Karly Bautista PA [address] [place] [address] annual visit from date of surgery May/Jul 2024 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 documented as of this encounter Results * CBC with Auto [...] - 10/07/2023 10:21 AM EDT Testing Location: [address], [address], [facility] [address], Georgi Butterfield MD HEMATOLOGY ORDERABL ES [facility] [address] [facility] [address] [place] [address] documented in this encounter Visit Diagnoses Diagnosis Iron deficiency anemia, unspecified iron deficiency anemia type Carcinoma of ascending colon (HCC) Malignant neoplasm of ascending colon Malignant neoplasm of intestine (HCC) Malignant neoplasm of intestinal tract, part unspecified Iron deficiency anemia, unspecified iron deficiency anemia type- Primary Carcinoma of ascending colon (HCC) Malignant neoplasm of ascending colon documented in this encounter Additional Health Concerns Assessment Noted Time A fall risk assessment has been complete d for the patient 07/06/2023 9:36 AM EST documented as of this encounter Care Teams Channel Rebuilder Relationship Specialty Start Date End Date Cheo Santoyo DO [address] [place] [phone] PCP - General Family Medicine 07/06/23 documented as of this encounter
--- OUTSIDE RECORDS SUMMARY | 2024-01-11 22:13 | XMS_ITS | Encounter Summary ---
Author Organization [facility] Address [address] [place] [address] Care Team Providers Care [employer] Name Role Phone Cheo Santoyo Primary Care Provider Reason for Visit * Auth/Cert (Routine) Specialty Diagnoses / Procedures Referred By Rachid t Referred To Contact Diagnoses Primary osteoarthritis of right hip Primary osteoarthritis of right hip [M16.11] Procedures [place] ARTHRP ACETBLR/PROX FEM PROSTC AGRFT/ALGRFT HIP TOTAL ARTHROPLASTY ANTERIOR APPROACH ROBOTIC ASSISTED Maurice Panchal MD [address] [address] Referral ID Status Reason Start Date Expiration Date Visits Re quested Visits Authorized [id number] 1 1 Encounter Details Date Type Department Care Team (Latest Contact Info) Description 10/19/2023 6:20 AM EDT - 10/20/2023 12:10 PM EDT Hospital Encounter [facility] [address] [place] [id number] Maurice Panchal MD [address] [address] Status post total replacement of right hip (Primary Dx); Primary osteoarthritis of right hip Discharge Disposition: Home Health Care Svc Social History Tobacco Use Types Packs/Day Years Used Date Smoking Tobacco: Former Cigarettes 1 27 0 05/31/1969 - 05/31/1996 Smokeless Tobacco: Never Alcohol Use Standard Drinks/Week Comments Yes 7 (1 standard drink = 0.6 oz pur e alcohol) [facility] Utilities Answer Date Recorded In the past 12 months has th e electric, gas, oil, or water company threatened [...] place to sleep or slept in a senior care (including now)? No 10/19/2023 Food Insecurity Answer [...] EDT Inhaled Oxygen Concentration - - Weight 92.6 kg (204 lb 2.3 oz) 10/19/2023 6:31 A M EDT Height 175.3 cm (5' 9) 10/19/2023 6:31 AM EDT Body Mass Index 30.15 10/19/2023 6:31 AM EDT documented in this encounter Discharge Instructions * Discharge Instructions* Ramirez Agosto RN - 10/16/2023 6:36 PM EDT Images from the original note were not included. To prevent complications/minimize risk do the following: Do your ankle pumps and breathing exercises 10 times an hour while awake. To prevent blood clots and prevent respiratory issues. Ambulate, Get up and move for circulation breathing and stiffness. 3-7 minutes of every hour while awake. Using the walker at all times. Ice for at least 2 weeks for pain and swelling for comfort or what you can tolerate. Elevate and keep straight to reduce swelling and prevent range of motion excercises Take blood thinner and pain meds as directed. After Total Hip Replacement: Returning to Activity By having a total hip replacement, you???re taking the first step to getting back to an active lifestyle. You???ll most likely use a walker to get around at first. You may then progress to crutches or a cane. You???ll be shown how to use your walker or crutches safely. As you recover at home, you???ll find yourself returning to your daily routine. Keep doing your exercises. And challenge yourselfto walk even farther. Expect to see your efforts pay off as you increase your activity. Using your skills at home In the hospital, you practiced getting out of bed, walking, and doing daily tasks safely with your new hip. Once you return home, it???s time to use what you???ve learned. To keep your hip safe, always think before you move. Develop a walking program A good way to practice walking is by making it part of your daily routine. Typically all you need to try to do is slowly increase your walking activities for the first 4 weeks following hip surgery Practice a smooth stride To move easily, you must walk with a smooth motion. Watch yourself in a mirror while you walk toward it. Or have someone watch you. Make sure you???re walking heel to toe, and with equal weight (and time) on each foot. Being more active The [place] to becoming active is sticking with your recovery program. Talk with your surgeon about theactivities that you want to resume. Your surgeon will tell you when and how you can safely return to activities such as sex, swimming, gardening, and driving. After Total Hip Replacement: Recovering at Home Whether you???re recovering at home or in a rehabilitation facility, you need to protect your new hip. Sit and move the way you were taught in the hospital. Be sure to see your surgeon for scheduled follow-up visits, and return to activity slowly. A total hip replacement is major surgery, so don???t be surprised if it takes a few months before you feel really good. See your surgeon Post-op visits allow your surgeon to make sure your hip is healing well. Call 911 Call 911 right away if you have any of the following: Chest pain Shortness of breath Dizziness or confusion When to call your healthcare provider Call your surgeon or other healthcare provider right away if you have any of the following: Hip pain gets worse Pain or swelling in your calf or leg not related to your incision Tenderness or redness in your calf Fever of 101.9 or higher, or as directed by your healthcare provider Shaking chills Swelling or redness at the incision site gets worse Fluid draining from the incision Returning to activity Practice walking daily. Try to do more each week. Start by getting your own glass of water. If the weather is good, walk to the corner to mail a letter. Keep at it--that???s the main thing. Sitting and dressing To protect your new hip, an occupational therapist or physical therapist will teach you safer ways of doing daily tasks. Use the following tips when sitting, dressing, or using stairs. To sit, back up until the edge of the chair touches your leg. Then, using the armrests to support your weight, lower yourself into the seat. Always keep your operated leg out in front. To pull on socks and shoes, use a long-handled device, such as a grasper or hook. Try this with slip-on shoes first. To wash your feet and legs, use a long-handled sponge and a shower hose. To use stairs, step up first with your good leg. Then bring your operated leg up to meet it. When going down, step down first with your operated leg. Returning to sex After the incision heals and you regain some hip movement, you may be ready to have sex. Ask your surgeon or the office nurse about when it is safe to start having sex, and what positions are safe. Maintaining your new joint An infection in your body could harm the new joint. Talk with your surgeon before scheduling medical or dental procedures. You may need to take antibiotics to prevent infection, even years after yoursurgery. To check joint stability over time, you may have X-rays every year or two. ?? [id number] [employer] All rights reserved. This information is not intended as a substitute for professional medical care. Always follow your healthcare professional's instructions. * Attachments The following attachments cannot be sent through Care Everywhere. * acetaminophen (oral) (Indian) * aspirin (oral) (Indian) * celecoxib (Indian) * docusate (oral/rectal) (Indian) * Constipation (Indian) * DVT (Deep Vein Thrombosis) (Indian) * Pulmonary Embolism (Indian) documented in this encounter Medications at Time of Discharge Medication Sig Dispensed Refills Start Date End Date acetaminophen (TYLENOL) 500 MG tablet 2 tabs every 8 hours . Do not exceed 3000mg in a 24 hour period. 180 tablet 10/19/2023 celecoxib (CELEBREX) 200 MG capsule Take 1 capsule by mouth daily 1 capsule by mouth once a day with food. Start taking the day after surgery. 30 capsule 10/19/2023 aspirin (ASPIRIN 81) 81 MG EC tablet Take 1 tablet by mouth 2 times daily One tablet twice daily with food for 30 days beginning the day after surgery. 60 tablet 10/19/2023 naloxone (NARCAN) 4 MG/0.1ML LIQD nasal spray 1 spray by Nasal route as needed for Opioid Reversal 2 each 10/19/2023 cyclobenzaprine (FLEXERIL) 10 MG tablet Take 1 tablet by mouth 3 times daily as needed for Muscle spasms Bacillus Coagulans-Inulin (ALIGN PREBIOTIC-PROBIOTIC PO) Take 1 capsule by mouth daily XIFAXAN 550 MG tablet 09/24/2023 tiZANidine (ZANAFLEX) 4 MG tabletIndications:Ce rvicalgia Take 1 tablet by mouth every 6 hours as needed (muscle spasm) 30 tablet 2 09/02/2023 empagliflozin (JARDIANCE) 25 MG tablet 1 tablet Orally once daily 90 tablet 3 07/06/2023 metFORMIN (GLUCOPHAGE) 1000 MG tablet 1 tablet with a meal Orally bid 180 tablet 3 07/06/2023 olmesartan (BENICAR) 20 MG tabletIndications:Pr imary hypertension Take 0.5 tablets by mouth daily 45 tablet 3 07/06/2023 atorvastatin (LIPITOR) 40 MG tabletIndications:Ty pe 2 diabetes mellitus without complication, without long-term current use of insulin (HCC) Take 1 tablet by mouth every morning 90 tablet 3 07/06/2023 ondansetron (ZOFRAN) 4 MG tabletIndications:Na usea Take 1 tablet by mouth every 8 hours as needed for Nausea prn 90 tablet 3 07/06/2023 oxyCODONE (ROXICODONE) 5 MG immediate release tabletIndications:St atus post total replacement of right hip Take 1-2 tablets by mouth every 4 hours as needed for Pain for up to 5 days. 1-2 tablets every 4 hours as needed for pain. Take lowest dose possible to manage pain Max Daily Amount: 60 mg 20 tablet 10/19/2023 10/24/2023 Semaglutide,0.25 or 0.5MG/DOS, 2 MG/1.5ML SOPNIndications:Type 2 diabetes mellitus without complication, without long-term current use of insulin ([facility]) Inject 0.5 mg once weekly 3 Adjustable Dose Pre-filled Pen Syringe 3 10/12/2023 12/03/2023 pantoprazole (PROTONIX) 40 MG tabletIndications:Ba rrett's esophagus with dysplasia 1 tablet Orally Once a day for 30 day(s) 90 tablet 3 07/06/2023 11/30/2023 documented as of this encounter Progress Notes * Nadia Mondragon, OT - 10/20/2023 12:10 PM EDT Images from the original note were not included. Acute Care Occupational Therapy Evaluation Observation OT Visit Days: 1 Time In: 903Time Out:930 (27minutes) Acknowledge Orders OT Charge Capture Admitting Diagnosis: Primary osteoarthritis of right hip [M16.11] Arthritis of right hip [M16.11] Procedure(s) (LRB): HIP TOTAL ARTHROPLASTY ANTERIOR APPROACH ROBOTIC ASSISTED (Right)1 Day Post-Op Reason for Referral: Generalized Muscle Weakness (M62.81) Difficulty in walking, Not elsewhere classified (R26.2) Payor: MEDICARE / Plan: MEDICARE PART A AND B / Product Type: *No Product type* / SUBJECTIVE Martínez Toribio is a 68 y.o. male admitted with Primary osteoarthritis of right hip. He has a pastmedical history of Ryan's esophagus, Cancer ([facility]), Chronic back pain, Diabetes ([facility]), DJD (degenerative joint disease), GERD (gastroesophageal reflux disease), Hip pain, HTN (hypertension), Hyperlipidemia, IBS (irritable bowel syndrome), Left bundle branch block (LBBB), Post-operative nausea andvomiting, Sleep apnea, Spinal stenosis, Tremor, Type 2 diabetes mellitus without complication ([facility]), and Wears glasses. He also has a past surgical history that includes joint replacement (Right, 2011); back surgery (02/05/1986); hip surgery (Right, 06/18/2022); subtotal colectomy (2019); Upper gastrointestinal endoscopy (2019); Knee arthroscopy (Left, 10/13/2021); Hand surgery (Right, 2001); Cervical discectomy (04/18/2007); Kidney stone surgery (2009); hemicolectomy (2020); shoulder surgery (Right, 2010); Hand Carpectomy (Left, 2021); Total knee arthroplasty (Left, 12/21/2022); Colonoscopy;Total knee arthroplasty (Right, 03/17/2023); hip surgery (Bilateral, 08/04/2023); and Total hip arthroplasty (Right, 10/19/2023). Subjective: Pt agreeable to OT eval; rec'd in chair; ok to see per RN I'm back again - but I feel good! Pt denied dizziness and/or nausea throughout session Additional Pertinent History: OT Eval and Rx; WBAT; R ant LIZZ (10/19/23) PMHx: Colon Ca; back pain; DJD; HTN; L BBB; PONV; spinal stenosis; DM2; RUE tremor; ACDF (2012); back sx (1985); B hand sx; R TSA (2011); B TKA (2022) Social Environment Prior Level of Function ADL Prior Level of Function IADL Lives With: Spouse Type of Home: House Home Layout: One level Home Access: Stairs to enter with rails Bathroom Shower/Tub: Walk-in shower Bathroom Toilet: Handicap height Home Equipment: Cane, Walker - Rolling Ambulation Assistance: Independent Transfer Assistance: Independent Receives Help From: Family ADL Assistance: Independent Homemaking Assistance: Independent History of Falls:No Comments: OBJECTIVE Vital Signs / Pain Lines & Drains /Precautions No vitals taken this session Pain 09/07 Precautions/Restrictions Restrictions/Precautions Restrictions/Precautions: Weight Bearing, Fall Risk Lower Extremity Weight Bearing Restrictions Right Lower Extremity Weight Bearing: Weight Bearing As Tolerated Orientation/Cognition Vision/Hearing Orientation Orientation Level: Oriented X4 Cognition Overall Cognitive Status: WNL Vision Vision: Impaired Vision Exceptions: Wears glasses at all times Hearing Hearing: Within functional limits Objective Assessment Gross Assessment Gross Assessment AROM: Within functional limits PROM: Within functional limits Strength: Within functional limits Coordination: Within functional limits Tone: Normal Sensation: Intact Balance Intact Standing - Static: Occasional;Good (standing ADLs at sink) Standing - Dynamic: Constant support;Fair (with RW) Activities of Daily Living Grooming: Supervision Grooming Skilled Clinical Factors: standing at sink UE Bathing: Independent LE Bathing: Minimal assistance UE Dressing: Independent LE Dressing: Minimal assistance LE Dressing Skilled Clinical Factors: A with R shoe/sock Toileting: Independent Functional Activity Functional Mobility Transfer Training Transfer Training: Yes Sit to Stand: Supervision (with RW) Stand to Sit: Supervision Bed to Chair: Supervision Toilet Transfer: Supervision Balance Sitting: Intact Standing: Impaired Standing - Static: Occasional;Good (standing ADLs at sink) Standing - Dynamic: Constant support;Fair (with RW) ADL Treatment (12 Minutes) CPT 78131: Self care including Scooting, Transfer Training, Sitting Balance , Standing Balance, Grooming, Upper Body Dressing , Lower Body Dressing , and Toileting to improve functional Activity tolerance, Balance, Mobility, and Increase independence. Safety: Type of Devices: All dolores prominences offloaded;Left in chair;Heels elevated for pressure relief;Nurse notified;Call light within reach Education: Education Given To: Patient Education Provided: Role of Therapy;ADL Adaptive Strategies;Plan of Care;Transfer Training Education Method: Demonstration;Verbal Barriers to Learning: None Education Outcome: Verbalized understanding;Demonstrated understanding [facility]?6 Clicks?? Basic ADL Inpatient Short Form How much help is needed for putting on and taking off regular lower body clothing?: A Little How much help is needed for bathing (which includes washing, rinsing, drying)?: A Little How much help is needed for toileting (which includes using toilet, bedpan, or urinal)?: None How much help is needed for putting on and taking off regular upper body clothing?: None How much help is needed for taking care of personal grooming?: None How much help for eating meals?: None [facility] Daily [facility]: [facility] ADL T-Scale Score : 47.1 ADL Inpatient CMS 0-100% Score: 25.8 ADL Inpatient CMS G-Code Modifier : CJ ASSESSMENT Assessment 68 year old male, adm s/p R ant LIZZ, presents at min A for RLE BADLs and S for functional transfers, 2/2 sx. He was pleasant and cooperative throughout evaluation and receptive to all feedback provided. He was instructed on, and practiced, adaptive dressing/bathing techniques and was further educated on home/bathroom safety. He demo'd or verbalized return of understanding for all education provided, and any remaining concerns regarding ADL function at home were addressed. In addition, he demo'sgood strength, balance, and carry-over and excellent safety awareness and insight into deficits in the setting of joint replacement surgery. No acute OT needs identified as family able to provide Emily for RLE BADLs and S for functional transfers. Evaluation Complexity: Low Complexity POST ACUTE RECOMMENDATIONS Setting: HHPT with family A Justification for Recommended Setting: Recommended to help patient obtain maximum functional independence. Equipment: Equipment Needed: No PLAN D/C OT Therapist Signature: Nadia Mondragon, OT Date: 10/20/2023 * Maurice Elizabeth PA - 10/20/2023 10:03 AM EDT Orthopedic Progress Note Date:10/20/2023 Room:[address] [place] [address] Patient Name:Martínez Toribio Date of :1955 Age:68 y.o. Subjective Patient is POD #: 1 status post Right Total Hip Arthoplasty. Denies complaints referable to shortness of breath or chest pain or DVT or infection. Pain controlled. No other complaints. States he had a restful night. Was able to get up and ambulate yesterday. He is motivated to be discharged home today if cleared by PT and stable otherwise. Physical Examination Vitals: BP 103/72 Pulse 80 Temp 98.1 ??F (36.7 ??C) (Oral) Resp 18 Ht 1.753 m (5' 9) Wt 92.6 kg (204 lb 2.3 oz) SpO2 95% BMI 30.15 kg/m?? Temp (24hrs), Av ??F (36.7 ??C), Min:97.7 ??F (36.5 ??C), Max:98.2 ??F (36.8 ??C) Patient is alert and oriented ??3 No shortness of breath Dermabond Prineo dressing is clean, dry and intact No significant thigh swelling. Ecchymosis is noted around the incision site Pulses are palpable, skin is warm to touch Patient is moving both lower extremities without issues or deficits Bilateral calf and thigh compartments soft, nontender, no cords, negative Homans' sign Labs/Imaging/Diagnostics Labs: Recent Results (from the past 24 hour(s)) Culture, Tissue Collection Time: 10/19/23 4:58 PM Specimen: Tissue Result Value Ref Range Gram Stain Result No Polymorphonuclear WBC Gram Stain Result No Bacteria Seen Culture, Tissue Collection Time: 10/19/23 5:12 PM Specimen: Tissue Result Value Ref Range Gram Stain Result No Polymorphonuclear WBC Gram Stain Result No Bacteria Seen Basic Metabolic Panel Collection Time: 10/20/23 4:14 AM Result Value Ref Range Sodium 138 135 - 145 mmol/L Potassium 4.8 3.5 - 5.3 mmol/L Chloride 102 98 - 107 mmol/L CO2 26 22 - 29 mmol/L Glucose 157 (H) 70 - 99 mg/dL BUN 17 8 - 23 mg/dL Creatinine 1.1 0.7 - 1.3 mg/dL Anion Gap 10 2 - 17 mmol/L Osmolaliy Calculated 280 270 - 287 mOsm/kg Calcium 9.0 8.5 - 10.7 mg/dL Est, Glom Filt Rate 74 >=60 mL/min/1.73m?? Hemoglobin and Hematocrit Collection Time: 10/20/23 4:14 AM Result Value Ref Range Hemoglobin 13.7 13.0 - 17.3 g/dL Hematocrit 41.8 38.0 - 52.0 % Imaging: Post op films have been reviewed taken on the day of surgery without any issues or concerns Assessment Status post Right Total Hip Arthroplasty Plan: Patient overall is doing well following total hip arthroplasty. We will tentatively plan for discharge home later today with home health therapy, if cleared by physical therapy, pain is controlled and no medical concerns. Patient expresses verbal understanding of Aspirin 81mg twice a day for 4 weeks for DVT prophylaxis. We have asked the patient to only ambulate for exercise until he/she is reevaluated Patient has been recommended ice therapy to the hip and thigh area for the next 7-14 days to help with any postoperative discomfort and/or swelling Patient has been asked to only take pain medication as necessary. Please refer to the discharge medication reconciliation for further discharge medications including pre-operative home medications javier continued or held. Patient will return to Dr. Panchal's office in 4 weeks for further evaluation. Follow-up sooner should any questions, concerns, worsening symptoms or new symptoms arise. Patient and caregivers expressed understanding and agreement with the plan. All questions answered. This document was created using voice recognition software so mistakes are possible. For any concerns about the wording of this document, please contact its creator for further clarification. * Chrissy Mcdonnell, SMALL CRAFT OPERATOR - 10/20/2023 8:20 AM EDT Images from the original note were not included. Acute Care Physical Therapy Treatment Note Observation (SMALL CRAFT OPERATOR/PT Visit Days : 2) Time In: 0755 Time Out: 0814 (19 minutes) Acknowledge Orders PT Charge Capture Admitting Diagnosis: Primary osteoarthritis of right hip [M16.11] Arthritis of right hip [M16.11] Procedure(s) (LRB): HIP TOTAL ARTHROPLASTY ANTERIOR APPROACH ROBOTIC ASSISTED (Right) 1 Day Post-Op Treatment Diagnosis: Payor: MEDICARE / Plan: MEDICARE PART A AND B / Product Type: *No Product type* / SUBJECTIVE Martínez Toribio is a 68 y.o. male admitted with Primary osteoarthritis of right hip. He has a pastmedical history of Ryan's esophagus, Cancer ([facility]), Chronic back pain, Diabetes ([facility]), DJD (degenerative joint disease), GERD (gastroesophageal reflux disease), Hip pain, HTN (hypertension), Hyperlipidemia, IBS (irritable bowel syndrome), Left bundle branch block (LBBB), Post-operative nausea andvomiting, Sleep apnea, Spinal stenosis, Tremor, Type 2 diabetes mellitus without complication ([facility]), and Wears glasses. He also has a past surgical history that includes joint replacement (Right, 2011); back surgery (02/05/1986); hip surgery (Right, 06/18/2022); subtotal colectomy (2019); Upper gastrointestinal endoscopy (2019); Knee arthroscopy (Left, 10/13/2021); Hand surgery (Right, 2001); Cervical discectomy (04/18/2007); Kidney stone surgery (2009); hemicolectomy (2020); shoulder surgery (Right, 2010); Hand Carpectomy (Left, 2021); Total knee arthroplasty (Left, 12/21/2022); Colonoscopy;Total knee arthroplasty (Right, 03/17/2023); hip surgery (Bilateral, 08/04/2023); and Total hip arthroplasty (Right, 10/19/2023). Subjective: PATIENT AGREEABLE TO TREATMENT. STATES HE HAD BOTH KNEES REPLACED. RN STATED OK TO WORKWITH PATIENT. Additional Pertinent History: Additional Pertinent Hx: WBAT s/p R LIZZ anterior approach 10/19/23 Social Environment Prior Level of Function Lives With: Spouse Type of Home: House Home Layout: One level Home Access: Stairs to enter with rails Home Equipment: Cane, Walker - Rolling Receives Help From: Family ADL Assistance: Independent Homemaking Assistance: Independent Ambulation Assistance: Independent Transfer Assistance: Independent History of Falls: No Comments: OBJECTIVE Vital Signs/Pain Lines/Drains/Precautions Vital Signs Pain TIGHTNESS ONLY Peripheral IV 10/19/23 Left;Posterior Hand (Active) Precautions/Restrictions Restrictions/Precautions Restrictions/Precautions: Weight Bearing Lower Extremity Weight Bearing Restrictions Right Lower Extremity Weight Bearing: Weight Bearing As Tolerated Orientation/Cognition Vision/Hearing Cognition Overall Cognitive Status: WNL Orientation Overall Orientation Status: Within Normal Limits Orientation Level: Oriented X4 [facility]?6 Clicks?? Basic Mobility Inpatient Short Form How much help is needed turning from your back to your side while in a flat bed without using bedrails?: None How much help is needed moving from lying on your back to sitting on the side of a flat bed withoutusing bedrails?: None How much help is needed moving to and from a bed to a chair?: A Little How much help is needed standing up from a chair using your arms?: A Little How much help is needed walking in hospital room?: A Little How much help is needed climbing 3-5 steps with a railing?: A Little [facility] Inpatient Mobility Raw Score : [facility] T-Scale Score : 47.67 Mobility Inpatient CMS 0-100% Score: 35.83 Mobility Inpatient CMS G-Code Modifier : CJ TREATMENT Bed Mobility Supine to Sit: Stand by assistance Scooting: Stand by assistance Transfer Training Sit to Stand: Contact guard assistance Stand to Sit: Contact guard assistance Ambulation Surface: Level tile Device: Rolling Walker Assistance: Contact guard assistance;Stand by assistance Quality of Gait: RECIPROCAL PATTERN, NO LOB OR BUCKLING Gait Deviations: Decreased step length Distance: 250 FT Comments: INTRUCTED IN ASCENDING/ DESCENDING 1 THRESHOLD STEP - PATIENT ABLE TO VERBALIZE AND DEMONSTRATE PROPERLY Therapeutic Exercise (CPT 04491) (5 minutes) Exercise Treatment: ANKLE PUMPS, QUAD SETS, GLUTEAL SETS X 10; INSTRUCTED OTHERWISE TO ONLY AMBULATE FOR EXERCISE To Improve:activity tolerance, AROM, strength, and mobility Gait Training (19 Minutes) CPT 08844: Gait training for 250 feet utilizing Gait Belt and Rolling Walker. Patient required Verbal cueing to improve Activity Pacing, Assistive Device Utilization, and Gait Mechanics. Comments PLEASANT AND MOTIVATED; PROGRESSING WELL WITH MINIMAL PAIN Safety: Type of Devices: All fall risk precautions in place;Nurse notified;Gait belt;Call light within reach Education: ASSESSMENT Assessment: PATIENT SITTING UP IN BED UPON ARRIVAL STATING HE GOT OOB X 2 LAST NIGHT WITHOUT DIFFICULTY. SUPINETO SIT WITH SBA. SIT TO STAND WITH GOOD HAND PLACEMENT CGA. GAIT TRAINING WITH RW X 250 FT RECIPROCAL PATTERN CGA/ SBA, BUCKLING OR LOB. REVIEWED ENTERING HIS HOME WITH 1 THRESHOLD STEP PATIENT WITH GOOD UNDERSTANDING AND HAD BOTH KNEES REPLACED IN THE PAST. SEATED IN PSYCHOLOGY CLINICIAN. REVIEWED ANTI-EMBOLICS AND INSTRUCTED TO OTHERWISE AMBULATE FOR EXERCISE. SCD'S AND ICE APPLIED. CALL CALIX IN HAND. ALARMSET. NEEDS IN REACH. POST ACUTE RECOMMENDATIONS Setting: Home Health Therapy 'S SUPERVISION Justification for Recommended Setting: Recommended to help patient obtain maximum functional independence. Equipment: RW Discharge Transportation Recommendations: No stretcher PLAN Frequency & Duration: BID for duration of hospital stay or until stated goals are met, whichever comes first. Interventions Planned (Treatment may consist of any combination of the following): Current Treatment Recommendations: Strengthening; ROM; Balance training; Functional mobility training; Transfer training; ADL/Self-care training; IADL training; Endurance training; Gait training; Stair training; Cognitive reorientation; Pain management; Home exercise program; Safety education & training; Patient/Caregiver education & training; Equipment evaluation, education, & procurement; Modalities; Positioning; Therapeutic activities Goals ALL MET Short Term Goals Communications Designer Goals Time Frame for Short Term Goals: 3 visits Short Term Goal 1: Pt will transfer STS c RW c CGA Short Term Goal 2: Pt will amb 200 ft c RW c CGA Short Term Goal 3: Pt will navigate curb jerzy bertrand CGA Therapist Signature: Chrissy Mcdonnell PTA Date: 10/20/2023 * Brenden Perez - 10/19/2023 6:59 PM EDT Images from the original note were not included. Acute Care Physical Therapy Evaluation Observation (SMALL CRAFT OPERATOR/PT Visit Days : 1) Time In: 1600 Time Out: 1634 (34 minutes) Acknowledge Orders PT Charge Capture Admitting Diagnosis: Primary osteoarthritis of right hip [M16.11] Arthritis of right hip [M16.11] Procedure(s) (LRB): HIP TOTAL ARTHROPLASTY ANTERIOR APPROACH ROBOTIC ASSISTED (Right) Day of Surgery Reason for Referral: Other abnormalities of gait and mobility (R26.89) Payor: MEDICARE / Plan: MEDICARE PART A AND B / Product Type: *No Product type* / SUBJECTIVE Martínez Toribio is a 68 y.o. male admitted with Primary osteoarthritis of right hip. He has a pastmedical history of Ryan's esophagus, Cancer (HCC), Chronic back pain, Diabetes (HCC), DJD (degenerative joint disease), GERD (gastroesophageal reflux disease), Hip pain, HTN (hypertension), Hyperlipidemia, IBS (irritable bowel syndrome), Left bundle branch block (LBBB), Post-operative nausea andvomiting, Sleep apnea, Spinal stenosis, Tremor, Type 2 diabetes mellitus without complication (HCC), and Wears glasses. He also has a past surgical history that includes joint replacement (Right, 2011); back surgery (02/05/1986); hip surgery (Right, 06/18/2022); subtotal colectomy (2019); Upper gastrointestinal endoscopy (2019); Knee arthroscopy (Left, 10/13/2021); Hand surgery (Right, 2001); Cervical discectomy (04/18/2007); Kidney stone surgery (2009); hemicolectomy (2020); shoulder surgery (Right, 2010); Hand Carpectomy (Left, 2021); Total knee arthroplasty (Left, 12/21/2022); Colonoscopy;Total knee arthroplasty (Right, 03/17/2023); and hip surgery (Bilateral, 08/04/2023). Subjective: Pt appropriate for PT per nursing. Pt agreeable to PT and denied feeling light headed or dizzy throughout. Pt reported 5/10 pain posterior thigh and groin area with increased ROM during amb. Additional Pertinent History: WBAT s/p R LIZZ anterior approach 10/19/23 Social Environment Prior Level of Function Lives With: Spouse Type of Home: House Home Layout: One level Home Access: Stairs to enter with rails Home Equipment: Cane, Walker - Rolling Entrance Stairs - Number of Steps: 1 Receives Help From: Family ADL Assistance: Independent Homemaking Assistance: Independent Ambulation Assistance: Independent Transfer Assistance: Independent History of Falls: No Comments: OBJECTIVE Vital Signs/Pain Lines/Drains/Precautions Vital Signs No vitals taken this session Pain 5/10 Peripheral IV 10/19/23 Left;Posterior Hand (Active) Precautions/Restrictions Restrictions/Precautions Restrictions/Precautions: Weight Bearing Lower Extremity Weight Bearing Restrictions Right Lower Extremity Weight Bearing: Weight Bearing As Tolerated Orientation/Cognition Vision/Hearing Overall Cognitive Status: WNL Overall Orientation Status: Within Normal Limits Orientation Level: Oriented X4 Objective Assessment Balance Sitting - Static: Good Sitting - Dynamic: Good Standing - Static: Fair Standing - Dynamic: Fair FUNCTIONAL ACTIVITY Bed Mobility Supine to Sit: Stand by assistance Scooting: Stand by assistance Transfer Training Sit to Stand: Contact guard assistance Stand to Sit: Contact guard assistance Ambulation Surface: Level tile Device: Rolling Walker Assistance: Contact guard assistance Quality of Gait: antalgic gait, rigid posture, no buckling, no LOB, able to progress to reciprocal gait pattern. Distance: 60 ft Safety: Type of Devices: All fall risk precautions in place;Nurse notified Education: Education Given To: Patient;Family Education Provided: Role of Therapy;Plan of Care;Home Exercise Program;Precautions;ADL Adaptive Strategies;Transfer Training;Energy Conservation;Fall Prevention Strategies;Equipment Education Method: Demonstration;Verbal;Teach Back;Printed Information/Hand-outs Barriers to Learning: None Education Outcome: Verbalized understanding;Demonstrated understanding;Continued education needed ASSESSMENT Assessment: Pt was pleasant and cooperative throughout requiring min cues for good followthrough and carryover.Pt limited by pain during amb. Nursing aware. Good carryover from prior joint arthroplasties. Pt demonstrated good understanding for HEP including ankle pumps, quad sets, glute sets. Pt verbalized und erstanding for home safety with changes in BP during activity. Pt will benefit from HHPT, supervision for all OOB mobility and RW use as discussed in depth c pt. Evaluation Complexity: Low Complexity POST ACUTE RECOMMENDATIONS Setting: Home Health Therapy Justification for Recommended Setting: Recommended to help patient obtain maximum functional independence. Equipment: RW Discharge Transportation Recommendations: No stretcher PLAN Frequency & Duration: BID for duration of hospital stay or until stated goals are met, whichever comes first. Mr. Toribio presents with Excellent therapy prognosis. Skilled intervention is medically necessary to address the following performance deficits:Decreased functional mobility , Decreased ADL status, Decreased ROM, Decreased body mechanics, Decreased tolerance to work activity, Decreased strength, Decreased safe awareness, Decreased endurance, Decreased balance, Decreased high-level IADLs, Decreased fine motor control, Increased pain, Decreased posture. Benefits and precautions of physical therapy have been discussed with Mr. Toribio, and the following interventions are recommended: Strengthening, ROM, Balance training, Functional mobility training, Transfer training, ADL/Self-care training, IADL training, Endurance training, Gait training, Stair training, Cognitive reorientation, Pain management, Home exercise program, Safety education & training, Patient/Caregiver education & training, Equipment evaluation, education, & procurement, Modalities, Positioning, Therapeutic activ ities Goals Short Term Goals Long-Term Goals Time Frame for Short Term Goals: 3 visits Short Term Goal 1: Pt will transfer STS c RW c CGA Short Term Goal 2: Pt will amb 200 ft c RW c CGA Short Term Goal 3: Pt will navigate curb c RW c CGA Therapist Signature: Brenden Guerrero Pre[place]atte Date: 10/19/2023. * Ninfa Horowitz, RN - 10/12/2023 11:21 AM EDT Pre Procedure Patient Instructions Procedure Location hospital:[facility] [address] [facility]- Your arrival time may be as early as 6 am per your physician. If your arrival is scheduled before 6:30a: Park in front of the ER and enter through ER Doors and check in with ER Registration. Procedure Date 10/19/23 Arrival Time Per Physicians Instructions Your doctor determines your scheduled start time. Depending on the facility where your procedure istaking place and the scheduled start time, you may be required to arrive up to 2 hours prior. This is to allow time for registration, your preop assessment, any day of procedure testing and to meet with your care teams members. This also allows your procedure to be performed earlier should there irma cancellation that day. We appreciate your patience as we work to provide you with excellent service. Medications: Medication to be taken the morning of surgery with a few sips of water only: PANTOPRAZOLE, ZOFRAN IF NEEDED Hold or reduce the dosage of the following medication, as discussed: Hold Jardiance (Empagliflozin) 3 days prior to your procedure. Hold Ozempic (Semaglutide) 7 days prior to your procedure. Stop all supplements, vitamins and herbal remedies one week prior to your procedure, unless your doctor told you to continue taking. Do not take over the counter pain medications except plain Tylenol or Acetaminophen unless your doctor told you to do so. If you are taking blood thinners, call the doctor performing your procedure and prescribing physician for instructions on when to stop. Procedure Preparation Diet Restrictions:Your procedure will be cancelled if you do not follow these instructions. Clear liquids ONLY from 12:00am to 11:59pm the day before your procedure (water, black coffee with no milk or cream, juice without pulp, plain non red or purple jello, soda, Ensure Clear, non-red or purple Gatorade, chicken broth, beef broth and bone broth without noodles) and then NO food or drink including gum or mints after 12:00am the day of your procedure even if your doctor told you to drink fluids. When taking OZEMPIC your stomach doesn't empty as quickly and can cause you to inhale your stomach contents while under anesthesia. Your anesthesia provider will discuss these risks with you further on the day of your procedure. Even when following the fasting and medication instructions you may have symptoms such as nausea, vomiting, and/or bloating on the day of your procedure. Depending on your symptoms, the anesthesiologists and surgeon may decide that delaying or cancelling surgery may be the safest decision for you. If you have questions on the day of your procedure call [facility]opat [phone]. Skin Preparation: Wash with Hibiclens or an antibacterial soap (e.g. Dial soap) 3 days prior and morning of procedure. Do not put on any deodorants, lotions, powders, or oils on the day of procedure. Be sure to put on clean, comfortable loose fitting clothing. Other Preparation: Call your doctor right away if you get any wounds, cuts, scrapes, scabs, rashes, bug bites at or near your procedure site or if you have any fever, cold or flu symptoms and Call your doctor right away if you have any fever, cold or flu symptoms No test required before surgery Day of Procedure Patient Instruction: Do not smoke, vape, chew tobacco, drink alcohol or use recreational drugs on the day of your procedure Remove all jewelry, piercings, and metal accessories Do not wear artificial nails and only clear nail arabic on natural nails. Nails must be trimmed to fingertip length to make sure the oxygen probe fits properly and to avoid injury Do not wear artificial eye lashes because they can cause dry eyes, eye scratches, eye infections and allergic reactions Do not use hair extensions with metal clips or hairstyles near the back of your neck, as it can make it difficult to safely manage your breathing during anesthesia If your hair is tightly braided or styled in a complex way, it may need to be undone for your safety Do not wear contacts, tampons, make-up, lotions, creams, powders, fragrances or deodorant Wear loose fit clothing Do not bring valuables or money Bring a copy of your Living Will and/or Medical Durable Power of Vp [employer] if you have one Bring a list of current medications including name and dosage Bring a picture ID and insurance card Bring a walker or other orthopedic device necessary for postop If you are going home the same day as your procedure, a support person should accompany you to the facility and must transport you home. If you plan to take public transportation of any sort, your support person must accompany you home. You will need someone to stay with you for 24 hours after yourprocedure with sedation of any kind. This information was reviewed with you during your Pre-Admission Testing interview and you verbalized understanding. If you have any additional questions please contact [phone]. To pre-register for your procedure please call [phone] Option 1. For financial questions regarding your procedure at a [facility], please contact [phone]. For financial questions regarding anesthesia at a [facility] facility, please contact [phone]. For [facility] Patient Portal help please call [phone]. documented in this encounter Plan of Treatment Upcoming Encounters Date Type Department Care Team (Late st Contact Info) Description 03/24/2024 9:00 AM EDT Office Visit Neurology - [facility] [address] [facility] [place] [address] Martell Calderon MD [address] [facility] [address] [place] [address] TREMORS/ MEDICARE, FOR LIFE 03/28/2024 8:30 AM EDT Office Visit Primary Care - [address] [address] Cheo Santoyo, [address] [place] [phone] AWV 04/06/2024 9:45 AM EST Lab [facility] - [facility] [address] [facility] [address] [place] [address] CBCMP,CEA,FEST 04/06/2024 10:15 AM EST Office Visit [facility] - [facility] [address] [facility] [address] [place] [address] Georgi Butterfield MD [address] [place] [address] 6 MTH FU W/LABS, REV SCAN 04/13/2024 9:30 AM EST Office Visit Surgical Oncology - [facility] [address] [facility] [address] [place] [address] Delvis Cheek MD [address] [facility] [address] [place] [address] 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 Scheduled Orders Name Type Priority Associated Diagnoses Orde r Schedule POCT Glucose Point of Care Testing STAT One Time for 1 Occurrences starting 10/19/2023 until 10/19/2023 documented as of this encounter Procedures Procedure Name Priority Date/Time Associated Diagnosis Comments HEMOGLOBIN AND HEMATOCRIT Routine 10/20/2023 4:14 AM [...] AM EDT Primary osteoarthritis of right hip MN ARTHRP ACETBLR/PROX FEM PROSTC AGRFT/ALGRFT 10/19/2023 7:15 AM EDT Primary osteoarthritis of right hip Special Needs javan/ rosa m POCT GLUCOSE Routine 10/19/2023 7:10 AM EDT SURGICAL PATHOLOGY Routine 10/19/2023 Primary osteoarthritis of right hip documented in this encounter Results * Hemoglobin and Hematocrit (10/20/2023 4:14 AM EDT) Hemoglobin 13.7 13.0 - 17.3 g/dL [facility] Hematocrit 41.8 38.0 - 52.0 % [facility] Blood BLOOD SPECIMEN / Unknown 10/20/2023 4:14 AM EDT 10/20/2023 5:02 AM EDT Maurice Elizabeth PA HEMATOLOGY ORDERABLE S [facility] [address] [place] [address] * (ABNORMAL) Basic Metabolic Panel (10/20/2023 4:14 [...] Maurice DALLAS CHEMISTRY ORDERABLES Performing Organization Address City/[facility] Co de Phone Number [address], [place] [address] * Culture, Tissue (10/19/2023 5:12 PM EDT) FINAL REPORT No aerobic or anaerobic organisms isolated [facility] Gram Stain Result No Polymorphonuclear WBC [facility] Gram Stain Result No Bacteria Seen [facility] Tissue 10/19/2023 5:12 PM EDT 10/19/2023 5:14 PM EDT Maurice Panchal MD MICROBIOLOGY - GENER AL ORDERABLES Performing Organization Address [facility] Co de Phone Number [facility] [address] [place] [address] * (ABNORMAL) Culture, Tissue (10/19/2023 4:58 PM EDT) FINAL REPORT Propionibacterium species Most Closely Resembling Propionibacterium avidum(A) [facility] FINAL REPORT No aerobic organisms isolated.(A) [facility] Gram Stain Result No Polymorphonuclear WBC(A) [facility] Gram Stain Result No Bacteria Seen(A) [facility] Organism Propionibacterium species(A) [facility] Tissue 10/19/2023 4:58 PM EDT 10/19/2023 5:14 PM EDT Maurice Panchal MD MICROBIOLOGY - GENER AL ORDERABLES Performing Organization Address [facility] Co de Phone Number [facility] [address] [place] [phone] * XR PELVIS (1-2 VIEWS) (10/19/2023 9:56 [...] Acid Fast Bacillius (10/19/2023 8:53 AM EDT) FINAL REPORT No Acid-Fast bacilli Isolated [facility] ACID FAST No Acid Fast Bacilli Seen [facility] Tissue HIP JOINT SYNOVIAL FLUID / Unknown 10/19/2023 8:53 AM EDT Comment:Pre-op diagnosis: Primary osteoarthritis of right hip [M16.11] Narrative [facility] - 10/20/2023 1:01 PM EDT Pre-op diagnosis: Primary osteoarthritis of right hip [M16.11] Maurice Panchal MD MICROBIOLOGY - [facility] AL ORDERABLES [facility] [address] [place] [address] * Culture, Fungus (10/19/2023 8:53 AM EDT) FINAL REPORT No fungi isolated after 28 days. [facility] JESUS result No Fungi Seen [facility] Tissue HIP JOINT SYNOVIAL FLUID / Unknown 10/19/2023 8:53 AM EDT Comment:Pre-op diagnosis: Primary osteoarthritis of right hip [M16.11] Narrative [facility] - 10/19/2023 10:39 PM EDT Pre-op diagnosis: Primary osteoarthritis of right hip [M16.11] Maurice Panchal MD MICROBIOLOGY - GENER AL ORDERABLES Performing Organization Address [facility] de Phone Number [facility] [address] [place] [phone] * Culture with Smear, Acid Fast Bacillius (10/19/2023 8:50 AM EDT) FINAL REPORT No Acid-Fast bacilli Isolated [facility] ACID FAST No Acid Fast Bacilli Seen [facility] Synov Fl JOINT SPECIMEN / Unknown 10/19/2023 8:50 AM EDT Comment:Pre-op diagnosis: Primary osteoarthritis of right hip [M16.11] Narrative [facility] - 10/20/2023 1:00 PM EDT Pre-op diagnosis: Primary osteoarthritis of right hip [M16.11] Maurice Panchal MD MICROBIOLOGY - GENER AL ORDERABLES Performing Organization Address [facility] de Phone Number [facility] [address] [place] [phone] * Culture, Fungus (10/19/2023 8:50 AM EDT) FINAL REPORT No fungi isolated after 28 days. [facility] JESUS result No Fungi Seen [facility] Synov Fl JOINT SPECIMEN / Unknown 10/19/2023 8:50 AM EDT Comment:Pre-op diagnosis: Primary osteoarthritis of right hip [M16.11] Narrative [facility] - 10/19/2023 10:40 PM EDT Pre-op diagnosis: Primary osteoarthritis of right hip [M16.11] Maurice Panchal MD MICROBIOLOGY - GENER AL ORDERABLES Performing Organization Address [facility] Co de Phone Number [facility] [address] [place] [address] * POCT Glucose (10/19/2023 7:10 AM EDT) POC Glucose 96.0 65.0 - 110.0 mg/dL [facility] Comment:MP - AMB PACU Blood 10/19/2023 7:10 AM EDT 10/19/2023 7:10 AM EDT Maurice Panchal MD POINT OF CARE TEST O RDERASANCHEZ Performing Organization Address [facility] Co de Phone Number [facility] [address] [place] [address] * Surgical Pathology (10/19/2023) Bone HIP JOINT SYNOVIAL FLUID / Unknown 10/19/2023 9:15 AM EDT Comment:Pre-op diagnosis: Primary osteoarthritis of right hip [M16.11] Maurice Panchal MD PATHOLOGY/CYTOLOGY O RDERABLES Performing Organization Address [facility] Co de Phone Number [facility] [address] [place] [address] documented in this encounter Visit Diagnoses Diagnosis Primary osteoarthritis of right hip- Primary Primary localized osteoarthrosis, pelvic region and thigh Primary osteoarthritis of right hip Primary localized osteoarthrosis, pelvic region and thigh Status post total replacement of right hip Arthritis of right hip Status post total replacement of right hip documented in this encounter Admitting Diagnoses Diagnosis Primary osteoarthritis of right hip Primary localized osteoarthrosis, pelvic region and thigh Arthritis of right hip documented in this encounter Administered Medications Inactive Administered Medications - up to 3 most recent administrations Medication Order MAR Action Action Date Dose Rate Site acetaminophen (TYLENOL) tablet 1,000 mg 1,000 mg, Oral, EVERY 8 HOURS, 9 doses, First dose on Wed10/19/23 at 1400, Last dose on Wed10/22/23 at 0600, Maximum dose of acetaminophen is 4000 mg from all sources in 24 hours., Post-op Given 10/20/2023 5:33 AM EDT 1,000 mg Given 10/19/2023 9:22 PM EDT 1,000 mg Given 10/19/2023 2:10 PM EDT 1,000 mg acetaminophen (TYLENOL) tablet 1,000 mg 1,000 mg, Oral, ONCE, 1 dose, On Wed10/19/23 at 0645, Administer 30-60 minutes prior to surgery., 1000 mg of acetaminophen in preop, Pre-op (day of surgery) Given 10/19/2023 7:00 AM EDT 1,000 mg aspirin EC tablet 81 mg 81 mg, Oral, 2 times daily, First dose on Wed10/20/23 at 0900, Until Discontinued, Do not crush or break., Post-op Given 10/20/2023 8:20 AM EDT 81 mg ceFAZolin (ANCEF) 2,000 mg in sodium chloride 0.9 % 100 mL IVPB (mini-bag) 2,000 mg, IntraVENous, EVERY 8 HOURS, 2 doses, First dose on Wed10/19/23 at 1600, Last dose on Wed10/20/23 at 0000, Antimicrobial Indications: Surgical Prophylaxis, Post-op New Bag 10/20/2023 12:22 AM EDT 2,000 mg 200 mL/hr New Bag 10/19/2023 5:37 PM EDT 2,000 mg 200 mL/hr celecoxib (CELEBREX) capsule 400 mg 400 mg, Oral, ONCE, 1 dose, On Wed10/19/23 at 0645, Administer 60 minutes prior to surgery., Pre-op (day of surgery) Given 10/19/2023 7:00 AM EDT 400 mg HYDROmorphone HCl PF (DILAUDID) injection 0.25 mg 0.25 mg, IntraVENous, EVERY 5 MIN PRN, 4 doses, Starting on Wed10/19/23 at 0932, Until Wed10/19/23 at 1018, Pain Moderate (4-6), For Phase I. If Phase II oral narcotics have been administered in the last 60 minutes, do not administer IV narcotics unless specifically approved by provider., PACU only Given 10/19/2023 10:02 AM EDT 0.25 mg Given 10/19/2023 9:53 AM EDT 0.25 mg ketorolac (TORADOL) injection 15 mg 15 mg, IntraVENous, EVERY 6 HOURS, 8 doses, First dose on Wed10/19/23 at 1400, Last dose on Wed10/21/23 at 0800, Do not administer for more than 2 days., Post-op Given 10/20/2023 8:20 AM EDT 15 mg Given 10/20/2023 3:50 AM EDT 15 mg Given 10/19/2023 9:22 PM EDT 15 mg lactated ringers IV soln infusion IntraVENous, at 100 mL/hr, CONTINUOUS, Starting on Wed10/19/23 at 1045, Convert to hep-lock(saline lock) when taking PO fluids, BP stable and urine output greater than or equal to 30 ml/hr, Post-op New Bag 10/19/2023 10:50 AM EDT 100 mL/hr lactated ringers IV soln infusion IntraVENous, at 50 mL/hr, CONTINUOUS, Starting on Wed10/19/23 at 0645, Preoperative use ONLY for NON-DIALYSIS patients, Pre-op (day of surgery), Routine New Bag 10/19/2023 7:10 AM EDT 50 mL/hr metFORMIN (GLUCOPHAGE) tablet 1,000 mg 1,000 mg, Oral, 2 TIMES DAILY WITH MEALS, First dose on Wed10/19/23 at 1700, Until Discontinued Given 10/19/2023 5:37 PM EDT 1,000 mg ondansetron (ZOFRAN) injection 4 mg 4 mg, IntraVENous, EVERY 6 HOURS PRN, Starting on Wed10/19/23 at 1029, Until Wed10/20/23 at 1417, Nausea, Vomiting, Administer if oral route cannot be used., Post-op ondansetron (ZOFRAN-ODT) disintegrating tablet 4 mg 4 mg, Oral, EVERY 6 HOURS PRN, Starting on Wed10/19/23 at 1029, Until Wed10/20/23 at 1417, Nausea, Vomiting, Use Zofran(ondansetron) before promethazine., Post-op oxyCODONE (ROXICODONE) immediate release tablet 10 mg 10 mg, Oral, EVERY 4 HOURS PRN, Starting on Wed10/19/23 at 1029, Until Wed10/20/23 at 1417, Pain Severe (7-10), Post-op oxyCODONE (ROXICODONE) immediate release tablet 5 mg 5 mg, Oral, EVERY 4 HOURS PRN, Starting on Wed10/19/23 at 1029, Until Wed10/20/23 at 1417, Pain Moderate (4-6), Post-op Given 10/19/2023 9:23 PM EDT 5 mg Given 10/19/2023 10:48 AM EDT 5 mg pantoprazole (PROTONIX) tablet 40 mg 40 mg, Oral, DAILY BEFORE BREAKFAST, First dose on Wed10/20/23 at 0700, Until Discontinued, Do not crush or break. Given 10/20/2023 5:34 AM EDT 40 mg tiZANidine (ZANAFLEX) tablet 2 mg 2 mg, Oral, EVERY 8 HOURS PRN, Starting on Wed10/19/23 at 1437, Until Wed10/20/23 at 1417, Muscle spasms Given 10/20/2023 5:34 AM EDT 2 mg Given 10/19/2023 9:23 PM EDT 2 mg documented in this encounter Active and Recently Administered Medications Times are shown in EDT. Scheduled Medication Order 10/18/2023 10/19/2023 10/20/2023 acetaminophen (TYLENOL) tablet 1,000 mg 1,000 mg, Oral, EVERY 8 HOURS, 9 doses, First dose on Wed10/19/23 at 1400, Last dose on Wed10/22/23 at 0600, Maximum dose of acetaminophen is 4000 mg from all sources in 24 hours., Post-op 1410 (Given - Provider: Ramirez Agosto RN)2 (Given - Provider: Daryl Morales, SUZANNE) 0533 (Given - Provider: Daryl Morales RN) acetaminophen (TYLENOL) tablet 1,000 mg (COMPLETED) 1,000 mg, Oral, ONCE, 1 dose, On Wed10/19/23 at 0645, Administer 30-60 minutes prior to surgery., 1000 mg of acetaminophen in preop, Pre-op (day of surgery) 0700 (Given - Provider: Martha Bah RN) aspirin EC tablet 81 mg 81 mg, Oral, 2 times daily, First dose on Wed10/20/23 at 0900, Until Discontinued, Do not crush or break., Post-op 0820 (Given - Provid er: Ramirez Agosto RN) atorvastatin (LIPITOR) tablet 40 mg 40 mg, Oral, EVERY MORNING, First dose on Wed10/19/23 at 1045, Until Discontinued 1109 (Not Given - Provider: Ramirez Agosto RN - Reason: Patient/family refused) 0831 (Not Given - Provider: Ramirez Agosto RN - Reason: Patient/family refused) ceFAZolin (ANCEF) 2,000 mg in sodium chloride 0.9 % 100 mL IVPB (mini-bag) (COMPLETED) 2,000 mg, IntraVENous, EVERY 8 HOURS, 2 doses, First dose on Wed10/19/23 at 1600, Last dose on Wed10/20/23 at 0000, Antimicrobial Indications: Surgical Prophylaxis, Post-op 1737 (New Bag - Provider: Ramirez Agosto, RN)1857 (Stopped - Provider: Ramirez Agosto RN) 0022 (New Bag - Provider: Daryl Morales, SUZANNE)0055 (Stopped - Provider: Daryl Morales RN) ceFAZolin (ANCEF) 2,000 mg in sodium chloride 0.9 % 100 mL IVPB (mini-bag) (COMPLETED) 2,000 mg, IntraVENous, MOTOR CARRIER INSPECTOR TO O.R., 1 dose, On Wed10/19/23 at 0645, Antimicrobial Indications: Surgical Prophylaxis, Administer within 1 hour prior to incision. Recommend to repeat in 3-4 hours after initial dose if still intra-op., Pre-op (day of surgery) 0751 (New Bag - Provider: Kwabena Wong MD) celecoxib (CELEBREX) capsule 400 mg (COMPLETED) 400 mg, Oral, ONCE, 1 dose, On Wed10/19/23 at 0645, Administer 60 minutes prior to surgery., Pre-op (day of surgery) 0700 (Given - Provider: Martha Bah, SUZANNE) empagliflozin (JARDIANCE) tablet 25 mg 25 mg, Oral, DAILY, First dose on Wed10/20/23 at 0900, Until Discontinued, Indication of Use: Type 2 diabetes 0833 (Not Given - Provider: Ramirez Agosto RN - Reason: Patient/family refused) ketorolac (TORADOL) injection 15 mg 15 mg, IntraVENous, EVERY 6 HOURS, 8 doses, First dose on Wed10/19/23 at 1400, Last dose on Wed10/21/23 at 0800, Do not administer for more than 2 days., Post-op 1410 (Given - Provider: Ramirez Agosto RN)2121 (Given - Provider: Daryl Morales RN) 0350 (Given - Provider: Daryl Morales RN)0820 (Given - Provider: Ramirez Agosto RN) metFORMIN (GLUCOPHAGE) tablet 1,000 mg 1,000 mg, Oral, 2 TIMES DAILY WITH MEALS, First dose on Wed10/19/23 at 1700, Until Discontinued 1737 (Given - Provider: Ramirez Agosto RN) 0829 (Not Given - Provider: Ramirez Agosto RN - Reason: Patient/family refused) olmesartan (BENICAR) tablet 10 mg 10 mg, Oral, EVERY MORNING, First dose on Wed10/20/23 at 0900, Until Discontinued 0834 (Not Given - Provider: Ramirez Agosto RN - Reason: Patient/family refused) pantoprazole (PROTONIX) tablet 40 mg 40 mg, Oral, DAILY BEFORE BREAKFAST, First dose on Wed10/20/23 at 0700, Until Discontinued, Do not crush or break. 0534 (Given - Provid er: Daryl Morales RN) sennosides-docusate sodium (SENOKOT-S) 8.6-50 MG tablet 1 tablet 1 tablet, Oral, DAILY, First dose on Wed10/19/23 at 1200, Until Discontinued, Hold for loose stools, Post-op 1505 (Not Given - Provider: Ramirez Agosto RN - Reason: Other - Comment: did not want to upset stomach) 0834 (Not Given - Provider: Ramirez Agosto RN - Reason: Patient/family refused) tranexamic acid (CYKLOKAPRON) 1,900 mg in sodium chloride 0.9 % 100 mL IVPB (COMPLETED) 1,900 mg, IntraVENous, at 400 mL/hr, Administer over 15 Minutes, MOTOR CARRIER INSPECTOR TO O.R., On Wed10/19/23 at 0645, For 1 dose, One time dose for unilateral Total Hip or Knee Arthroplasty. To be administered by anesthesia staff after induction of anesthesia following antibiotic but prior to incision, Pre-op (day of surgery) 0802 (New Bag - Provider: Kwabena Wong MD) Continuous Medication Order 10/18/2023 10/19/2023 10/20/2023 lactated ringers IV soln infusion IntraVENous, at 100 mL/hr, CONTINUOUS, Starting on Wed10/19/23 at 1045, Convert to hep-lock(saline lock) when taking PO fluids, BP stable and urine output greater than or equal to 30 ml/hr, Post-op 1050 (New Bag - Provider: Ramirez Agosto, RN)2213 (Stopped - Provider: Daryl Morales, RN) 0910 (Stopped - Provider: Ramirez Agosto, RN) lactated ringers IV soln infusion (CANCELED) IntraVENous, at 50 mL/hr, CONTINUOUS, Starting on Wed10/19/23 at 0645, Preoperative use ONLY for NON-DIALYSIS patients, Pre-op (day of surgery), Routine 0710 (New Bag - Provider: Martha Bah RN) 0907 (Stopped - Provider: Ramirez Agosto, SUZANNE) PRN Medication Order 10/18/2023 10/19/2023 10/20/2023 aluminum & magnesium hydroxide-simethicone (MAALOX) 200-200-20 MG/5ML suspension 30 mL 30 mL, Oral, EVERY 6 HOURS PRN, Starting on Wed10/19/23 at 1029, Until Wed10/20/23 at 1417, Indigestion, Post-op bisacodyl (DULCOLAX) suppository 10 mg 10 mg, Rectal, DAILY PRN, Starting on Wed10/19/23 at 1029, Until Wed10/20/23 at 1417, Constipation, Second line therapy for constipation, After 24 hours, if no result from first line PRN therapy, give second line therapy in combination with first line therapy., Post-op diphenhydrAMINE (BENADRYL) capsule 25 mg(Linked Group 1) 25 mg, Oral, ONCE PRN, 1 dose, Starting on Wed10/19/23 at 1029, Until Wed10/20/23 at 1029, Itching, Post-op diphenhydrAMINE (BENADRYL) injection 25 mg(Linked Group 1) 25 mg, IntraVENous, ONCE PRN, 1 dose, Starting on Wed10/19/23 at 1029, Until Wed10/20/23 at 1029, Itching, Administer if oral route cannot be used., Post-op HYDROmorphone HCl PF (DILAUDID) injection 0.25 mg (CANCELED) 0.25 mg, IntraVENous, EVERY 5 MIN PRN, 4 doses, Starting on Wed10/19/23 at 0932, Until Wed10/19/23 at 1018, Pain Moderate (4-6), For Phase I. If Phase II oral narcotics have been administered in the last 60 minutes, do not administer IV narcotics unless specifically approved by provider., PACU only 0953 (Given - Provider: Calli Ambrose RN)1002 (Given - Provider: Calli Ambrose RN) HYDROmorphone HCl PF (DILAUDID) injection 0.5 mg 0.5 mg, IntraVENous, EVERY 4 HOURS PRN, Starting on Wed10/19/23 at 1029, Until Wed10/20/23 at 1417, Pain Severe (7-10), if pain is unrelieved with PO medications, If oral and IV narcotics ordered, use oral first and only use IV if oral is ineffective or cannot take oral. Do Not give oral and IV within 1 hour of each other unless specifically ordered., Post-op ondansetron (ZOFRAN) injection 4 mg(Linked Group 2) 4 mg, IntraVENous, EVERY 6 HOURS PRN, Starting on Wed10/19/23 at 1029, Until Wed10/20/23 at 1417, Nausea, Vomiting, Administer if oral route cannot be used., Post-op ondansetron (ZOFRAN-ODT) disintegrating tablet 4 mg(Linked Group 2) 4 mg, Oral, EVERY 6 HOURS PRN, Starting on Wed10/19/23 at 1029, Until Wed10/20/23 at 1417, Nausea, Vomiting, Use Zofran(ondansetron) before promethazine., Post-op oxyCODONE (ROXICODONE) immediate release tablet 10 mg(Linked Group 3) 10 mg, Oral, EVERY 4 HOURS PRN, Starting on Wed10/19/23 at 1029, Until Wed10/20/23 at 1417, Pain Severe (7-10), Post-op 1048 (See Alternative - Provider: Ramirez Agosto RN)2123 (See Alternative - Provider: Daryl Morales RN) oxyCODONE (ROXICODONE) immediate release tablet 5 mg(Linked Group 3) 5 mg, Oral, EVERY 4 HOURS PRN, Starting on Wed10/19/23 at 1029, Until Wed10/20/23 at 1417, Pain Moderate (4-6), Post-op 1048 (Given - Provider: Ramirez Agosto RN)2122 (Given - Provider: Daryl Morales, SUZANNE) polyethylene glycol (GLYCOLAX) packet 17 g 17 g, Oral, DAILY PRN, Starting on Wed10/19/23 at 1029, Until Wed10/20/23 at 1417, Constipation, First line therapy for constipation, Post-op sod chloride IRR soln 0.9 % 34.25 mL with EPINEPHrine 0.25 mL, ketamine (KETALAR) 30 mg, ketorolac (TORADOL) 30 MG/ML 15 mg, ROPivacaine (NAROPIN) 15 mL (CANCELED) PRN, Starting on Wed10/19/23 at 0901, Intra-op 09 (Given - Provider: Maurice Panchal MD) tiZANidine (ZANAFLEX) tablet 2 mg 2 mg, Oral, EVERY 8 HOURS PRN, Starting on Wed10/19/23 at 1437, Until Wed10/20/23 at 1417, Muscle spasms 2122 (Given - Provider: Daryl Morales RN) 533 (Given - Provider: Daryl Morales RN) Linked Groups Order Group 1: diphenhydrAMINE (BENADRYL) capsule 25 mgJump to med 25 mg, Oral, ONCE PRN, 1 dose, Starting on Wed10/19/23 at 1029, Until Wed10/20/23 at 1029, Itching, Post-op Or diphenhydrAMINE (BENADRYL) injection 25 mgJump to med 25 mg, IntraVENous, ONCE PRN, 1 dose, Starting on Wed10/19/23 at 1029, Until Wed10/20/23 at 1029, Itching, Administer if oral route cannot be used., Post-op Group 2: ondansetron (ZOFRAN-ODT) disintegrating tablet 4 mgJump to med 4 mg, Oral, EVERY 6 HOURS PRN, Starting on Wed10/19/23 at 1029, Until Wed10/20/23 at 1417, Nausea, Vomiting, Use Zofran(ondansetron) before promethazine., Post-op Or ondansetron (ZOFRAN) injection 4 mgJump to med 4 mg, IntraVENous, EVERY 6 HOURS PRN, Starting on Wed10/19/23 at 1029, Until Wed10/20/23 at 1417, Nausea, Vomiting, Administer if oral route cannot be used., Post-op Group 3: oxyCODONE (ROXICODONE) immediate release tablet 5 mgJump to med 5 mg, Oral, EVERY 4 HOURS PRN, Starting on Wed10/19/23 at 1029, Until Wed10/20/23 at 1417, Pain Moderate (4-6), Post-op Or oxyCODONE (ROXICODONE) immediate release tablet 10 mgJump to med 10 mg, Oral, EVERY 4 HOURS PRN, Starting on Wed10/19/23 at 1029, Until Wed10/20/23 at 1417, Pain Severe (7-10), Post-op documented in this encounter Additional Health Concerns Assessment Noted Time A fall risk assessment has been complete d for the patient 07/06/2023 9:36 AM EST documented as of this encounter Care Teams [employer] Science Teacher Relationship Specialty Start Date End Date Cheo Santoyo DO [address] [place] [phone] PCP - General Family Medicine 07/06/23 documented as of this encounter
--- OUTSIDE RECORDS SUMMARY | 2024-01-11 22:13 | XMS_ITS | Encounter Summary ---
Author Organization [facility] Address [address] [place] [address] Care Team Providers Care Ent Surgeon Name Role Phone Cheo Santoyo Primary Care Provider [phone] Reason for Visit * Reason Comments Post-Op Check S/P Right LIZZ DOS: Encounter Details Date Type Department Care Team (Late st Contact Info) Description 11/16/2023 11:30 AM EDT Office Visit Orthopaedics- Les Valencia [address] [facility] [address] [place] [phone] Faizan Bautista, BURT [address] [facility] [address] [place] [address] Aftercare following right hip joint replacement surgery (Primary Dx) Social History Tobacco Use Types Packs/Day Years Used Date Smoking Tobacco: Former Cigarettes 1 27 0 05/31/1969 - 05/31/1996 Smokeless Tobacco: Never Alcohol Use Standard Drinks/Week Comments Yes 4 (1 standard drink = 0.6 oz pur e alcohol) [facility] Utilities Answer Date Recorded In the past 12 months has [employer], gas, oil, or water company threatened to [...] - Inhaled Oxygen Concentration - - Weight 92.5 kg (204 lb) 11/16/2023 10:57 AM EDT Height 175.3 cm (5' 9) 11/16/2023 10:57 AM EDT Body Mass Index 30.13 11/16/2023 10:57 AM EDT documented in this encounter Progress Notes * Faizan Bautista PA - 11/16/2023 12:12 PM EDT Images from the original note were not included. Date: 11/16/2023 Patient Name: Martínez Toribio : 1955 Age: 68 y.o. Primary Care Provider: Cheo Santoyo DO REASON FOR VISIT: Post op right total hip arthroplasty HISTORY OF PRESENT ILLNESS: Date of Surgery 10/19/2023 Procedure: Right total hip arthroplasty Patient is seen today for his right hip. He is approaching 1 month out from right total hip arthroplasty. He states that he is doing well and his right hip pain is progressively improving since surgery. He is having some hip discomfort when sleeping at night and is still taking 1 tramadol prior to sleep. There was evidence of positive wound culture for P. avidum. Patient was contacted by Dr. Panchal with these results and was placed on a 2-week course of Keflex for precaution. Dr. Panchal felt that the positive culture may be a false positive test due to additional negative culture and noinfectious process seen by pathology. Patient states he has completed his 2-week course of Keflex as instructed. He has been taking aspirin twice daily for DVT prophylaxis and has no complaints of calf pain. He is ambulating today with a nonantalgic gait with no assistive devices. The patient's allergies, medications, tobacco history, family history, problem list, medical history and surgical history were updated and reviewed during today's visit. PHYSICAL EXAMINATION: General: no acute distress Vascular: neurovascularly intact Psych: alert, oriented; mood and affect appropriate Right Hip: Alignment: Normal Gait: Typical for this stage Leg lengths: Equal Skin: Normal with no rashes or lesions Incision: Healing well with no erythema or drainage Palpation: Normal, no tenderness ROM: Painless ROM internal: 20 degrees ROM external: 40 degrees Stability: Normal Strength and tone: Typical for this stage Calf is supple and nontender with negative Belkis's sign. MOST RECENT IMAGING: XR HIP RIGHT (2-3 VIEWS) (CLINIC PERFORMED) AP pelvis and lateral x-rays of the right hip were obtained and reviewed in the office today on 11/16/2023. X-rays revealed well-positioned [place] hip arthroplasty components without issues or concerns. X-rays today were compared to postoperative AP pelvis x-ray completed on 10/19/2023 revealing no change in positioning of arthroplasty components. ASSESSMENT: Post op right total hip arthroplasty 1. Aftercare following right hip joint replacement surgery - XR HIP RIGHT (2-3 VIEWS) (CLINIC PERFORMED) - amoxicillin (AMOXIL) 500 MG tablet; Take 4 tablets by mouth once for 1 dose Take 4 tablets 1 hourprior to dental cleaning/procedure, Disp-4 tablet, R-3Normal - traMADol (ULTRAM) 50 MG tablet; Take 1 tablet by mouth every 6 hours as needed for Pain for up to7 days. Take lowest dose possible to manage pain Max Daily Amount: 200 mg, Disp-20 tablet, R-0Normal PLAN: -Post op discussion including expectations and guidelines for recovery and care including dental antibiotic prophylaxis for lifetime. Recommended waiting 3 months from date of surgery for any dental visits unless a dental emergency should occur. Prescription for amoxicillin was sent to the patient's pharmacy for future use. -Physical therapy / home exercises not needed. Advised patient to walk for exercise until approximately 8 weeks from surgery. Then, the patient may slowly increase all activities and may return to regular exercise as tolerated. -Patient advised to use vitamin E oil or cocoa butter lotion over the incision to minimize surgicalscarring. Advised not to massage the incision to avoid skin irritation. -Anticoagulation: Patient was instructed to complete aspirin therapy for total of 30 days postoperatively for DVT prophylaxis and may then resume all preoperative medications and/or supplements once aspirin therapy has been completed. Prescription for tramadol was sent to the patient's pharmacy which she states he is utilizing priorto sleep to help with pain and sleep. PDMP Monitoring: Last PDMP Chandan as Reviewed: Review User Review Instant Review Result FAIZAN BAUTISTA 11/16/2023 12:16 PM Reviewed PDMP [1] Issues identified: none Following Dr. Panchal's recommendations regarding post operative pain management and refill authorized by him. Return for annual visit from date of surgery May/Jul 2024 for bilateral TKA and right LIZZ with Faizan. This document was created using voice recognition software so mistakes are possible. For any concerns about the wording of this document, please contact its creator for further clarification. documented in this encounter Plan of Treatment Upcoming Encounters Date Type Department Care Team (Late st Contact Info) Description 03/24/2024 9:00 AM EDT Office Visit Neurology - [facility] [address] [place] [address] Martell Calderon MD [address] [facility] [address] [place] [address] TREMORS/ MEDICARE, FOR LIFE 03/28/2024 8:30 AM EDT Office Visit Primary Care - [address] [phone] [place] [address] [place] [phone] AWV 04/06/2024 9:45 AM EST Lab [facility] [address] [facility] [address] [place] [address] CBCMP,CEA,FEST 04/06/2024 10:15 AM EST Office Visit [facility] - [facility] [address] [facility] [address] [place] [address] Georgi Butterfield MD [address] [place], [place] [phone] 6 MTH FU W/LABS, REV SCAN 04/13/2024 9:30 AM EST Office Visit Surgical Oncology - [facility] [address] [facility] [address] [place] [address] Delvis Cheek MD [address] [place] [address] 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 [address] [place] [address] Faizan Bautista PA [address] [place] [phone] annual visit from date of surgery May/Jul 2024 for bilateral TKA and right LIZZ with Faizna. documented as of this encounter Procedures Procedure [...] office today on 11/16/2023. ??X-rays revealed well-positioned [place] hip arthroplasty components without issues or concerns. ??X-rays today were compared to postoperative AP pelvis x-ray completed on 10/19/2023 revealing no change in positioning of arthroplasty components. Faizan [facility] IMAGI NG ORDERABLES documented in this encounter Visit Diagnoses Diagnosis Aftercare following right hip joint replacement surgery- Primary documented in this encounter Additional Health Concerns Assessment Noted Time A fall risk assessment has been complete d for the patient 07/06/2023 9:36 AM EST documented as of this encounter Care Teams Ent Surgeon Relationship Specialty Start Date End Date Cheo Santoyo DO [address] [place] [phone] PCP - General Family Medicine 07/06/23 documented as of this encounter
--- OUTSIDE RECORDS SUMMARY | 2024-01-11 22:13 | XMS_ITS | Encounter Summary ---
Author Organization [facility] Address [address] [place] [address] Care Team Providers Care Hemstitcher Name Role Phone Cheo Santoyo DO Primary Care Provider [phone] Reason for Visit * Reason Onset Date Comments new pharm 12/14/2023 Encounter Details Date Type Department Care Team ([facility] st Contact Info) Description 12/14/2023 Telephone Primary Care - [address] [phone] Cheo Santoyo DO [address] [place] [phone] new pharm Social History Tobacco Use Types Packs/Day Years Used Date Smoking Tobacco: Former Cigarettes 1 27 0 05/31/1969 - 05/31/1996 Smokeless Tobacco: Never Alcohol Use Standard Drinks/Week Comments Yes 4 (1 standard drink = 0.6 oz pur e alcohol) [facility] Utilities Answer Date Recorded In the past 12 months has [employer], gas, oil, or water [employer] threatened to shut off services in your [...] 9:00 AM EDT Office Visit Neurology - [facility] [address] [facility] [address] [place] [phone] Martell Calderon MD [address] [facility] [address] [place] [address] TREMORS/ MEDICARE, FOR LIFE 03/28/2024 8:30 AM EDT Office Visit Primary Care - [address] [phone] Cheo Santoyo DO [address] [place] [phone] AWV 04/06/2024 9:45 AM EST Lab [facility] - [facility] [address] [facility] [address] [place] [address] CBCMP,CEA,FEST 04/06/2024 10:15 AM EST Office Visit [facility] - [facility] [address] [facility] [address] [place] [address] Georgi Butterfield MD [address] [place] [address] 6 MTH FU W/LABS, REV SCAN 04/13/2024 9:30 AM EST Office Visit Surgical Oncology - [facility] [address] [facility] [address] [place] [address] Delvis Cheek MD [address] [facility] [address] [place] [address] 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 [address] [place] [phone] annual visit from date of surgery May/Jul 2024 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 documented as of this encounter Visit Diagnoses Diagnosis Type 2 diabetes mellitus without complication, without long-term current use of insulin (HCC) Ryan's esophagus with dysplasia Ryan's esophagus documented in this encounter Additional Health Concerns Assessment Noted Time A fall risk assessment has been complete d for the patient 07/06/2023 9:36 AM EST documented as of this encounter Care Teams Hemstitcher Relationship Specialty Start Date End Date Cheo Santoyo DO [address] [place] [phone] PCP - General Family Medicine 07/06/23 documented as of this encounter
--- OUTSIDE RECORDS SUMMARY | 2024-01-11 22:13 | XMS_ITS | Encounter Summary ---
Author Organization [facility] Address [address] [place] [address] Care Team Providers Care Allergist/Immunologist Name Role Phone Cheo Santoyo DO Primary Care Provider [phone] Reason for Visit * Reason Comments New Med Request Encounter Details Date Type Department Care Team (Late st Contact Info) Description 12/03/2023 Refill Primary Care - [address] [phone] Cheo Santoyo DO [address] [place] [phone] New Med Request Social History Tobacco Use Types Packs/Day Years Used Date Smoking Tobacco: Former Cigarettes 1 27 0 05/31/1969 - 05/31/1996 Smokeless Tobacco: Never Alcohol Use Standard Drinks/Week Comments Yes 4 (1 standard drink = 0.6 oz pur e alcohol) [facility] Utilities Answer Date Recorded In the past 12 months has [employer], gas, oil, or water [employer] threatened to shut off services in your [...] place to sleep or slept in a fpc (including now)? No 10/19/2023 Food Insecurity Answer [...] 9:00 AM EDT Office Visit Neurology - [facility] [address] [facility] [address] [place] [address] Martell Calderon MD [address] [facility] [place] [address] [place] [address] TREMORS/ MEDICARE, FOR LIFE 03/28/2024 8:30 AM EDT Office Visit Primary Care - [address] [phone] Cheo Santoyo [address] [place] [phone] AWV 04/06/2024 9:45 AM EST Lab [facility] - [facility] [address] [facility] [address] [place] [address] CBCMP,CEA,FEST 04/06/2024 10:15 AM EST Office Visit [facility] - [facility] [address] [facility] [address] [place] [address] Georgi Butterfield MD [address] [facility] [address] [place], [place] [id number] 6 MTH FU W/LABS, REV SCAN 04/13/2024 9:30 AM EST Office Visit Surgical Oncology - [facility] [address] [facility] [address] [place] [address] Delvis Cheek MD 125 [facility] [address] [place] [address] 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 documented as of this encounter Visit Diagnoses Not on filedocumented in this encounter Additional Health Concerns Assessment Noted Time A fall risk assessment has been complete d for the patient 07/06/2023 9:36 AM EST documented as of this encounter Care Teams Allergist/Immunologist Relationship Specialty Start Date End Date Cheo Santoyo DO [address] [place] [phone] PCP - General Family Medicine 07/06/23 documented as of this encounter
--- OUTSIDE RECORDS SUMMARY | 2024-01-11 22:13 | XMS_ITS | Encounter Summary ---
Author Organization [facility] Address [address] [place] [address] Care Team Providers Care Chief Service Observer Name Role Phone Cheo Santoyo Primary Care Provider [phone] Reason for Visit * Auth/Cert (Routine) Specialty Diagnoses / Procedures Referred By Contosman t Referred To Contact Diagnoses Primary osteoarthritis of right hip Primary osteoarthritis of right hip [M16.11] Procedures NE ARTHRP ACETBLR/PROX FEM PROSTC AGRFT/ALGRFT HIP TOTAL ARTHROPLASTY ANTERIOR APPROACH ROBOTIC ASSISTED Maurice Panchal MD [facility] [address] [address] Referral ID Status Reason Start Date Expiration Date Visits Re quested Visits Authorized [id number] 1 1 Encounter Details Date Type Department Care Team (Late st Contact Info) Description 10/19/2023 7:51 AM EDT Anesthesia Event RMP SURGERY 35[address] [facility] 17 [place] [address] Kwabena Wong MD 125 [facility] [address] [place], [place] [phone] Anesthesia Record Procedure Summary Procedure Name Responsible Anesthesiologist Anesthesia Start Time Anesthesia Stop Time HIP TOTAL ARTHROPLASTY ANTERIOR APPROACH ROBOTIC ASSISTED (Right: Hip) Kwabena Wong MD 10/19/23 0751 10/19/23 0943 Events Date Time Event Comment 10/19/2023 0740 0751 An Start Location: {AN S tart Location:[id number]} 0751 An Start Data 0751 Case on Time Start? First ca se of the day? Yes On Time Start? Yes If No, Delay due to: {MH AN CASE ON TIME:[id number]} 0758 Block Placed 0759 Anesthesia Ready 0936 an stop data 0938 Handoff to RN Vital signs ar e within acceptable limits and stable, SBAR handoff/transfer of care to RN. Patient Handoff Status: 0943 An Stop Meds Name Total fentaNYL 100 MCG/2ML 100 mcg midazolam 2 MG/2ML 2 mg lidocaine 2 % 60 mg propofol 200 MG/20ML 830.06 mg tranexamic acid (CYKLOKAPRON) 1,900 mg i n sodium chloride 0.9 % 100 mL IVPB 1,900 mg ceFAZolin (ANCEF) 2,000 mg in sodium chl oride 0.9 % 100 mL IVPB (mini-bag) 2,000 mg bupivacaine (MARCAINE) PF injection 0.5% 9 mg phenylephrine (BRODERICK-SYNEPHRIN E) 50 mg in sodium chloride 0.9 % 250 mL infusion 4,000 mcg dexAMETHasone 4 MG/ML 4 mg ondansetron 4 MG/2ML 4 mg lactated ringers infusion 700 mL * Agents No agents on file. * Blood No blood administrations on file. Lines, Drains, and Airways Type Details Placement Removal Puncture 08/04/23; 1015; Hip; Right; 10/19/23 (removed post precdure); 189908/04/23 1015 by Simona Mcdonald RN 10/19/23 1900 by Ramirez Agosto RN Puncture 08/04/23; 1016; Hip; Left; 10/19/23 (removed post precdure); 190008/04/23 1016 by Simona Mcdonald RN 10/19/23 1901 by Ramirez Agosto RN Peripheral IV Placement date 10/18; Placement time 0709; Size 20 g; Orientation Left, Posterior; Location Hand; Removal date 10/20/23; Removal time 1158 10/19/23 0709 by Martha Bah RN 10/20/23 1158 by Ramirez Agosto RN Incision 10/19/23; 0847; N; 0 weeks; Thigh; Proximal, Right, Anterior; sutures and prineo dressing; 10/20/23 (remove at follow up appoint.); 0915; Well approximated 10/19/23 0847 by Miladis Yañez RN 10/20/23 0915 by Ramirez Agosto RN documented in this encounter Social History Tobacco Use Types Packs/Day Years Used Date Smoking Tobacco: Former Cigarettes 1 27 0 05/31/1969 - 05/31/1996 Smokeless Tobacco: Never Alcohol Use Standard Drinks/Week Comments Yes 7 (1 standard drink = 0.6 oz pur e alcohol) [facility] Utilities Answer Date Recorded In [...] place to sleep or slept in a alf (including now)? No 10/19/2023 Food Insecurity Answer [...] Office Visit Neurology - [facility]an [address] Dr. [address] [place] [phone] Martell Calderon MD [address] [facility] [address] [place] [address] TREMORS/ MEDICARE, FOR LIFE 03/28/2024 8:30 AM EDT Office Visit Primary Care - [address] [phone] Cheo Santoyo DO [address] [place] [phone] AWV 04/06/2024 9:45 AM EST Lab [facility] - [address] [facility] [address] [place] [phone] CBCMP,CEA,FEST 04/06/2024 10:15 AM EST Office Visit [facility] - [facility] [address] [facility] [address] [place] [phone] Georgi Butterfield MD [address] [place] [address] 6 MTH FU W/LABS, REV SCAN 04/13/2024 9:30 AM EST Office Visit Surgical Oncology - [facility] [address] [facility] [address] [place] [address] Delvis Cheek MD [address] [facility] [address] [place] [address] 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 [address] [place] [phone] Karly Bautista, [place] [address] [place] [phone] annual visit from date of surgery May/Jul 2024 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 documented as of this encounter Procedures Procedure Name Priority Date/Time Associated Diagnosis Comments ANESTHESIA SPINAL BLOCK Routine 10/19/2023 7:53 AM EDT documented in this encounter Results * Spinal Block (10/19/2023 7:53 AM EDT) [...] acknowledged Kwabena Wong MD ANESTHESIA ORDERABLE S documented in this encounter Visit Diagnoses Not on filedocumented in this encounter Administered Medications Inactive Administered Medications - up to 3 most recent administrations Medication Order MAR Action Action Date Dose Rate Site BUPivacaine (PF) (MARCAINE) 0.5 % injection Intrathecal, Starting on Wed10/19/23 at 0758, Until Wed10/19/23 at 0758, Intra-op Given 10/19/2023 7:58 AM EDT 9 mg ceFAZolin (ANCEF) 2,000 mg in sodium chloride 0.9 % 100 mL IVPB (mini-bag) 2,000 mg, IntraVENous, SALES AND MARKETING ADMINISTRATOR TO O.R., 1 dose, On Wed10/19/23 at 0645, Antimicrobial Indications: Surgical Prophylaxis, Administer within 1 hour prior to incision. Recommend to repeat in 3-4 hours after initial dose if still intra-op., Pre-op (day of surgery) New Bag 10/19/2023 7:51 AM EDT 2,000 mg dexAMETHasone (DECADRON) injection IntraVENous, PRN, Starting on Wed10/19/23 at 0830, Until Wed10/19/23 at 0951, Intra-op Given 10/19/2023 8:30 AM EDT 4 mg fentaNYL (SUBLIMAZE) injection IntraVENous, PRN, Starting on Wed10/19/23 at 0752, Until Wed10/19/23 at 0951, Intra-op Given 10/19/2023 7:52 AM EDT 100 mcg lactated ringers IV soln infusion IntraVENous, CONTINUOUS PRN, Starting on Wed10/19/23 at 0750, Intra-op New Bag 10/19/2023 7:50 AM EDT lidocaine 2 % injection IntraVENous, PRN, Starting on Wed10/19/23 at 0801, Until Wed10/19/23 at 0951, Intra-op Given 10/19/2023 8:01 AM EDT 60 mg midazolam (VERSED) injection IntraVENous, PRN, Starting on Wed10/19/23 at 0752, Until Wed10/19/23 at 0951, Intra-op Given 10/19/2023 7:52 AM EDT 2 mg ondansetron (ZOFRAN) injection IntraVENous, PRN, Starting on Wed10/19/23 at 0842, Until Wed10/19/23 at 0951, Intra-op Given 10/19/2023 8:42 AM EDT 4 mg phenylephrine (BRODERICK-SYNEPHRINE) 50 mg in sodium chloride 0.9 % 250 mL infusion IntraVENous, CONTINUOUS PRN, Starting on Wed10/19/23 at 0810, Until Wed10/19/23 at 0951, Intra-op Bolus 10/19/2023 9:17 AM EDT 100 mcg Bolus 10/19/2023 8:40 AM EDT 100 mcg Bolus 10/19/2023 8:35 AM EDT 100 mcg propofol infusion IntraVENous, CONTINUOUS PRN, Starting on Wed10/19/23 at 0801, Until Wed10/19/23 at 0951, Intra-op Rate/Dose Change 10/19/2023 9:17 AM EDT 80 mcg/kg/min 44.448 mL/hr New Bag 10/19/2023 8:11 AM EDT 100 mcg/kg/min 55.56 mL/ hr New Bag 10/19/2023 8:02 AM EDT 120 mcg/kg/min 66.672 mL /hr tranexamic acid (CYKLOKAPRON) 1,900 mg in sodium chloride 0.9 % 100 mL IVPB 1,900 mg, IntraVENous, at 400 mL/hr, Administer over 15 Minutes, SALES AND MARKETING ADMINISTRATOR TO O.R., On Wed10/19/23 at 0645, For 1 dose, One time dose for unilateral Total Hip or Knee Arthroplasty. To be administered by anesthesia staff after induction of anesthesia following antibiotic but prior to incision, Pre-op (day of surgery) New Bag 10/19/2023 8:02 AM EDT 1,900 m g documented in this encounter Additional Health Concerns Assessment Noted Time A fall risk assessment has been complete d for the patient 07/06/2023 9:36 AM EST documented as of this encounter Care Teams Chief Service Observer Relationship Specialty Start Date End Date Cheo Santoyo DO [address] [place] [phone] PCP - General Family Medicine 07/06/23 documented as of this encounter
--- OUTSIDE RECORDS SUMMARY | 2024-01-11 22:13 | XMS_ITS | Encounter Summary ---
Author Organization Jose Ale[facility] Address [address] [place] [address] Care Team Providers Care Bottle Blower Name Role Phone Cheo Santoyo Primary Care Provider [phone] Reason for Visit * Auth/Cert (Routine) Specialty Diagnoses / Procedures Referred By Rachid t Referred To Contact Diagnoses Primary osteoarthritis of right hip Primary osteoarthritis of right hip [M16.11] Procedures [place] ARTHRP ACETBLR/PROX FEM PROSTC AGRFT/ALGRFT HIP TOTAL ARTHROPLASTY ANTERIOR APPROACH ROBOTIC ASSISTED Maurice Panchal MD [address] [address] Referral ID Status Reason Start Date Expiration Date Visits Re quested Visits Authorized [id number] 1 1 Encounter Details Date Type Department Care Team (Late st Contact Info) Description 10/19/2023 8:15 AM EDT - 10/19/2023 9:00 AM EDT Surgery [facility]MP SURGERY [address] [place] [address] Maurice Panchal MD [address] [id number] HIP TOTAL ARTHROPLASTY ANTERIOR APPROACH ROBOTIC ASSISTED Surgery Details Date/Time Status Location OR Service Patient Class Case Cl ass Case Type Trauma Case? 10/19/2023 8:15 AM Posted RMP MAIN OR RMP OR 06 Orthopedics Outpatient Surgery Elective No Panel 1 Procedure LRB Anes Op Region Wound Class Comments HIP TOTAL ARTHROPLASTY ANTER IOR APPROACH ROBOTIC ASSISTED Right Regional Hip Class I Clean Surgeon Surgeon Role Service Panel Maurice Panchal MD Primary Orthopedics 1 Special Needs javan/ rosa m documented in this encounter Social History Tobacco Use Types Packs/Day Years Used Date Smoking Tobacco: Former Cigarettes 1 27 0 05/31/1969 - 05/31/1996 Smokeless Tobacco: Never Alcohol Use Standard Drinks/Week Comments Yes 7 (1 standard drink = 0.6 oz pur e alcohol) [facility] Utilities Answer Date Recorded In the past 12 months has th e electric, gas, oil, or water [email or web address] threatened to shut off services in your [...] Sign Reading Time Taken Comments Blood Pressure 127/91 10/19/2023 6:31 AM EDT Pulse 91 10/19/2023 6:31 AM EDT Temperature 36.9 ??C (98.4 ??F) 10/19/2023 6:31 AM ED T Respiratory Rate 16 10/19/2023 6:31 AM EDT Oxygen Saturation 95% 10/19/2023 6:31 AM EDT Inhaled Oxygen Concentration - - [...] have X-rays every year or two. ?? [id number] [employer]. All rights reserved. This information is not intended as a substitute for professional medical care. Always follow your healthcare professional's instructions. * Attachments The following attachments cannot be sent through Care Everywhere. * acetaminophen (oral) (Stateless) * aspirin (oral) (Stateless) * celecoxib (Stateless) * docusate (oral/rectal) (Stateless) * Constipation (Stateless) * DVT (Deep Vein Thrombosis) (Stateless) * Pulmonary Embolism (Stateless) documented in this encounter Medications at Time [...] complication, without long-term current use of insulin ([facility]) Inject 0.5 mg once weekly 3 [...] (with RW) ADL Treatment (12 Minutes) CPT 63702: Self care including Scooting, Transfer Training, Sitting [...] Learning: None Education Outcome: Verbalized understanding;Demonstrated understanding [facility]?6 Clicks?? Basic ADL Inpatient Short Form [...] How much help for eating meals?: None [facility] Inpatient Daily Activity Raw Score: 22 AM-PAC Inpatient ADL T-Scale Score : 47.1 ADL [...] 10:03 AM EDT Orthopedic Progress Note Date:10/20/2023 Room:[address] [place] [address] Patient Name:Martínez Toribio Date of :1955 Age:68 [...] creator for further clarification. * Chrissy Mcdonnell, TRENCHER DRIVER - 10/20/2023 8:20 AM EDT Images from the original note were not included. Acute Care Physical Therapy Treatment Note Observation (TRENCHER DRIVER/PT Visit Days : 2) Time In: 0755 [...] a pastmedical history of Ryan's esophagus, Cancer ([facility]), Chronic back pain, Diabetes (HCC), DJD (degenerative [...] Within Normal Limits Orientation Level: Oriented X4 [facility]?6 Clicks?? Basic Mobility Inpatient Short Form How [...] 3-5 steps with a railing?: A Little AM-[facility] Inpatient Mobility Raw Score : 20 AM-[facility] Inpatient T-Scale Score : 47.67 Mobility Inpatient CMS 0-100% Score: 35.83 Mobility Inpatient [facility] G-Code Modifier : CJ TREATMENT Bed Mobility [...] VERBALIZE AND DEMONSTRATE PROPERLY Therapeutic Exercise (CPT 77877) (5 minutes) Exercise Treatment: ANKLE PUMPS, QUAD SETS, GLUTEAL SETS X 10; INSTRUCTED OTHERWISE TO ONLY AMBULATE FOR EXERCISE To Improve:activity tolerance, AROM, strength, and mobility Gait Training (19 Minutes) CPT 61877: Gait training for 250 feet utilizing Gait [...] KNEES REPLACED IN THE PAST. SEATED IN PRE ALGEBRA TEACHER. REVIEWED ANTI-EMBOLICS AND INSTRUCTED TO OTHERWISE AMBULATE [...] activities Goals ALL MET Short Term Goals Intermediate Goals Time Frame for Short Term Goals: 3 visits Short Term Goal 1: Pt will transfer STS c RW c CGA Short Term Goal 2: Pt will amb 200 ft c RW c CGA Short Term Goal 3: Pt will navigate curb c RW c CGA Therapist Signature: Chrissy Mcdonnell, ELLIOTT Date: 10/20/2023 * Prevatte, Brenden Guerrero - 10/19/2023 6:59 PM EDT Images from the original note were not included. Acute Care Physical Therapy Evaluation Observation (TRENCHER DRIVER/PT Visit Days : 1) Time In: 1600 [...] a pastmedical history of Ryan's esophagus, Cancer ([facility]), Chronic back pain, Diabetes ([facility]), DJD (degenerative joint disease), GERD (gastroesophageal reflux disease), Hip pain, HTN (hypertension), Hyperlipidemia, IBS (irritable bowel syndrome), Left bundle branch block (LBBB), Post-operative nausea andvomiting, Sleep apnea, Spinal stenosis, Tremor, Type 2 diabetes mellitus without complication ([facility]), and Wears glasses. He also has [...] Therapeutic activ ities Goals Short Term Goals Manager Radiation Goals Time Frame for Short Term Goals: 3 visits Short Term Goal 1: Pt will transfer STS c RW c CGA Short Term Goal 2: Pt will amb 200 ft c RW c CGA Short Term Goal 3: Pt will navigate curb c RW c CGA Therapist Signature: Brenden Rodriguezatte Date: 10/19/2023. * Ninfa Horowitz RN - 10/12/2023 11:21 AM EDT Pre Procedure Patient Instructions Procedure Location hospital:[facility] [address] [place]- Your arrival time may be as early [...] day of your procedure call [facility] Preopat [phone]. Skin Preparation: Wash with Hibiclens or an [...] wear artificial nails and only clear nail namibian on natural nails. Nails must be trimmed [...] Living Will and/or Medical Durable Power of Barbering Instructor if you have one Bring a list [...] you have any additional questions please contact [phone]. To pre-register for your procedure please call [phone] Option 1. For financial questions regarding your procedure at a [facility], please contact [phone]. For financial questions regarding anesthesia at a [facility], please contact [phone]. For [facility] Patient Portal help please call [phone]. documented in this encounter Plan of Treatment Upcoming Encounters Date Type Department Care Team (Late st Contact Info) Description 03/24/2024 9:00 AM EDT Office Visit Neurology - [facility] [address] [facility] [address] [place] [address] Martell Calderon MD [address] [facility] [place] [address] [place] [address] TREMORS/ MEDICARE, FOR LIFE 03/28/2024 8:30 AM EDT Office Visit Primary Care - [address] [address] Cheo Santoyo, [address] [place] [phone] AWV 04/06/2024 9:45 AM EST Lab [place] [facility] - [facility] [address] [facility] [address] [place] [address] CBCMP,CEA,FEST 04/06/2024 10:15 AM EST Office Visit [place] [facility] - [facility] [address] [facility] [address] [place] [address] Georgi Butterfield MD [address] [place] [address] 6 MTH FU W/LABS, REV SCAN 04/13/2024 9:30 AM EST Office Visit Surgical Oncology - [facility] [address] [facility] [place] [phone] Delvis Cheek MD [address] [facility] [address] [place] [address] 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 [address] [place] [address] Karly Bautista, PA [address] [place] [phone] annual visit from date of surgery May/Jul [...] AM EDT Primary osteoarthritis of right hip VT ARTHRP ACETBLR/PROX FEM PROSTC AGRFT/ALGRFT 10/19/2023 7:15 AM EDT Primary osteoarthritis of right hip Special Needs javan/ rosa m POCT GLUCOSE Routine 10/19/2023 7:10 AM EDT SURGICAL PATHOLOGY Routine 10/19/2023 Primary osteoarthritis of right hip documented in this encounter Results * Hemoglobin and Hematocrit (10/20/2023 4:14 AM EDT) Pathologist [facility] Hemoglobin 13.7 13.0 - 17.3 g/dL [facility] Hematocrit 41.8 38.0 - 52.0 % [facility] Blood BLOOD SPECIMEN / Unknown 10/20/2023 4:14 AM EDT 10/20/2023 5:02 AM EDT Maurice DALLAS HEMATOLOGY ORDERABLE S [facility] [address] [place] [address] * (ABNORMAL) Basic Metabolic Panel (10/20/2023 4:14 AM EDT) [facility] Sodium 138 135 - 145 mmol/L [facility] Potassium 4.8 3.5 - 5.3 mmol/L [facility] Chloride 102 98 - 107 mmol/L [facility] CO2 26 22 - 29 mmol/L [facility] Glucose 157(H) 70 - 99 mg/dL [facility] [place] BUN 17 8 - 23 mg/dL [facility] Creatinine 1.1 0.7 - 1.3 mg/dL [facility] Anion Gap 10 2 - 17 mmol/L [facility] Osmolaliy Calculated 280 270 - 287 mOsm/kg [facility] Calcium 9.0 8.5 - 10.7 mg/dL [...] Maurice DALLAS CHEMISTRY ORDERABLES Performing Organization Address City/[facility]/ZIP Co de Phone Number [address], [place] [address] * Culture, Tissue (10/19/2023 5:12 PM EDT) FINAL REPORT No aerobic or anaerobic organisms isolated [facility] Gram Stain Result No Polymorphonuclear WBC [facility] Gram Stain Result No Bacteria Seen [facility] Tissue 10/19/2023 5:12 PM EDT 10/19/2023 5:14 PM EDT Maurice Panchal MD MICROBIOLOGY - GENER AL ORDERABLES Performing Organization Address City/[facility] Co de Phone Number [facility] [address] [place] [address] * (ABNORMAL) Culture, Tissue (10/19/2023 4:58 PM EDT) FINAL REPORT Propionibacterium species Most Closely Resembling Propionibacterium avidum(A) [facility] FINAL REPORT No aerobic organisms isolated.(A) [facility] Gram Stain Result No Polymorphonuclear WBC(A) [facility] Gram Stain Result No Bacteria Seen(A) [facility] Organism Propionibacterium species(A) [facility] Tissue 10/19/2023 4:58 PM EDT 10/19/2023 5:14 PM EDT Maurice Panchal MD MICROBIOLOGY - GENER AL ORDERABLES [facility] [address] [place] [address] * XR PELVIS (1-2 VIEWS) (10/19/2023 9:56 [...] EDT) FINAL REPORT No Acid-Fast bacilli Isolated [facility] ACID FAST No Acid Fast Bacilli Seen [facility] Tissue HIP JOINT SYNOVIAL FLUID / Unknown 10/19/2023 8:53 AM EDT Comment:Pre-op diagnosis: Primary osteoarthritis of right hip [M16.11] Narrative [facility] - 10/20/2023 1:01 PM EDT Pre-op diagnosis: Primary osteoarthritis of right hip [M16.11] Maurice Panchal MD MICROBIOLOGY - GENER AL ORDERABLES Performing Organization Address [facility] Co de Phone Number [facility] [address] [place] [address] * Culture, Fungus (10/19/2023 8:53 AM EDT) FINAL REPORT No fungi isolated after 28 days. [facility] JESUS result No Fungi Seen [facility] Tissue HIP JOINT SYNOVIAL FLUID / Unknown 10/19/2023 8:53 AM EDT Comment:Pre-op diagnosis: Primary osteoarthritis of right hip [M16.11] Narrative [facility] - 10/19/2023 10:39 PM EDT Pre-op diagnosis: Primary osteoarthritis of right hip [M16.11] Maurice Panchal MD MICROBIOLOGY - GENER AL ORDERABLES Performing Organization Address [facility] de Phone Number [facility] [address] [place] [phone] * Culture with Smear, Acid Fast Bacillius (10/19/2023 8:50 AM EDT) FINAL REPORT No Acid-Fast bacilli Isolated [facility] ACID FAST No Acid Fast Bacilli Seen [facility] Synov Fl JOINT SPECIMEN / Unknown 10/19/2023 8:50 AM EDT Comment:Pre-op diagnosis: Primary osteoarthritis of right hip [M16.11] Narrative [facility] - 10/20/2023 1:00 PM EDT Pre-op diagnosis: Primary osteoarthritis of right hip [M16.11] Maurice Panchal MD MICROBIOLOGY - GENER AL ORDERABLES Performing Organization Address [facility] Co de Phone Number [facility] [address] [place] [address] * Culture, Fungus (10/19/2023 8:50 AM EDT) FINAL REPORT No fungi isolated after 28 days. [facility] JESUS result No Fungi Seen [facility] Synov Fl JOINT SPECIMEN / Unknown 10/19/2023 8:50 AM EDT Comment:Pre-op diagnosis: Primary osteoarthritis of right hip [M16.11] Narrative [facility] - 10/19/2023 10:40 PM EDT Pre-op diagnosis: Primary osteoarthritis of right hip [M16.11] Maurice Panchal MD MICROBIOLOGY - GENER AL ORDERABLES Performing Organization Address [facility] Co de Phone Number [facility] [address] [place] [phone] * POCT Glucose (10/19/2023 7:10 AM EDT) POC Glucose 96.0 65.0 - 110.0 mg/dL [facility] Comment:MP - AMB PACU Blood 10/19/2023 7:10 AM EDT 10/19/2023 7:10 AM EDT Maurice Panchal MD POINT OF CARE TEST O RDERABLES Performing Organization Address [facility] Co de Phone Number [facility] [address] [place] [phone] * Surgical Pathology (10/19/2023) Bone HIP JOINT SYNOVIAL FLUID / Unknown 10/19/2023 9:15 AM EDT Comment:Pre-op diagnosis: Primary osteoarthritis of right hip [M16.11] Maurice Panchal MD PATHOLOGY/CYTOLOGY O RDERABLES Performing Organization Address [facility] Co de Phone Number [facility] [address] [place] [phone] documented in this encounter Visit Diagnoses Diagnosis Primary osteoarthritis of right hip- Primary Primary localized osteoarthrosis, pelvic region and thigh Primary osteoarthritis of right hip Primary localized osteoarthrosis, pelvic region and thigh Status post total replacement of right hip Arthritis of right hip Primary osteoarthritis of right hip Primary localized osteoarthrosis, pelvic region and thigh documented in this encounter Admitting Diagnoses Diagnosis [...] Given 10/20/2023 5:34 AM EDT 40 mg sod chloride IRR soln 0.9 % 34.25 mL with EPINEPHrine 0.25 mL, ketamine (KETALAR) 30 mg, ketorolac (TORADOL) 30 MG/ML 15 mg, ROPivacaine (NAROPIN) 15 mL PRN, Starting on Wed10/19/23 at 0901, Intra-op Given 10/19/2023 9:01 AM EDT 50 mLs Hip R ight tiZANidine (ZANAFLEX) tablet 2 mg 2 mg, [...] Post-op 1410 (Given - Provider: Ramirez Agosto RN)2122 (Given - Provider: Daryl Morales RN) 0533 (Given - Provider: Daryl Morales, RN) acetaminophen (TYLENOL) tablet 1,000 mg (COMPLETED) [...] Post-op 1737 (New Bag - Provider: Ramirez Agosto RN)1857 (Stopped - Provider: Ramirez Agosto RN) 0022 (New Bag - Provider: Daryl Morales, SUZANNE)0055 (Stopped - Provider: Daryl Morales, SUZANNE) ceFAZolin (ANCEF) 2,000 mg in sodium chloride 0.9 % 100 mL IVPB (mini-bag) (COMPLETED) 2,000 mg, IntraVENous, RN GYN TO O.R., 1 dose, On Wed10/19/23 at [...] 0700 (Given - Provider: Martha Bah RN) empagliflozin (JARDIANCE) tablet 25 mg 25 mg, [...] Post-op 1410 (Given - Provider: Ramirez Agosto RN)2122 (Given - Provider: Daryl Morales RN) 0350 [...] stomach) 0834 (Not Given - Provider: Ramirez Agosto, RN - Reason: Patient/family refused) tranexamic acid (CYKLOKAPRON) 1,900 mg in sodium chloride 0.9 % 100 mL IVPB (COMPLETED) 1,900 mg, IntraVENous, at 400 mL/hr, Administer over 15 Minutes, RN GYN TO O.R., On Wed10/19/23 at 0645, For [...] Ramirez Agosto, RN)2213 (Stopped - Provider: Daryl Morales RN) 0910 (Stopped - Provider: Ramirez Agosto, SUZANNE) lactated ringers IV soln infusion (CANCELED) IntraVENous, at 50 mL/hr, CONTINUOUS, Starting on Wed10/19/23 at 0645, Preoperative use ONLY for NON-DIALYSIS patients, Pre-op (day of surgery), Routine 0710 (New Bag - Provider: Martha Bah, SUZANNE) 0907 (Stopped - Provider: Ramirez Agosto, RN) PRN Medication Order 10/18/2023 10/19/2023 10/20/2023 aluminum [...] 1048 (See Alternative - Provider: Ramirez Agosto RN)2122 (See Alternative - Provider: Daryl Morales, SUZANNE) oxyCODONE (ROXICODONE) immediate release tablet 5 mg(Linked [...] Morales RN) 533 (Given - Provider: Daryl Morales, SUZANNE) Linked Groups Order Group 1: diphenhydrAMINE (BENADRYL) [...] documented as of this encounter Care Teams Bottle Blower Relationship Specialty Start Date End Date Cheo Santoyo DO [address] [place] [phone] PCP - General Family Medicine 07/06/23 documented as of this encounter
--- OUTSIDE RECORDS SUMMARY | 2024-01-11 22:14 | XMS_ITS | Encounter Summary ---
Author Organization [facility] Address [address] [place] [address] Care Team Providers Care Hand Alterations Seamstress Name Role Phone Cheo Santoyo Primary Care Provider [phone] Encounter Details Date Type Department Care Team (Late st Contact Info) Description 06/28/[address] [facility] Hematology & Oncology - [facility]. [address] [facility] [address] [place] [address] Georgi Butterfield MD [address] [place] [address] Social History Tobacco Use Types Packs/Day Years [...] exercise at this level? 60 min 02/26/2023 Sex and Gender Information Value Date Recorded Sex Assigned at Not on file Gender Identity Not on file Sexual Orientation Not on file documented as of this encounter Plan of Treatment Upcoming Encounters Date Type Department Care Team (Late st Contact Info) Description 03/24/2024 9:00 AM EDT Office Visit Neurology - [facility] [address] [facility] [address] [place] [address] Martell Calderon MD [address] [facility] [address] [place] [address] TREMORS/ MEDICARE, FOR LIFE 03/28/2024 8:30 AM EDT Office Visit Primary Care - [address] [address] Cheo Santoyo DO [address] [place] [phone] AWV 04/06/2024 9:45 AM EST Lab [place] [facility] - [facility] [address] [facility] [address] [place] [address] CBCMP,CEA,FEST 04/06/2024 10:15 AM EST Office Visit [place] [facility] - [facility] [address] [facility] [address] [place] [address] Georgi Butterfield MD [address] [place] [address] 6 MTH FU W/LABS, REV SCAN 04/13/2024 9:30 AM EST Office Visit Surgical Oncology - [facility] [address] [facility] [address] [place] [address] Delvis Cheek MD [address] [facility] [address] [place] [phone] 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 [address] [place] [phone] Karly Bautista, BURT [address] [facility] [address] [place] [phone] annual visit from date of surgery May/Jul 2024 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 documented as of this encounter Visit Diagnoses Not on filedocumented in this encounter Additional Health Concerns Assessment Noted Time A fall risk assessment has been complete d for the patient 02/26/2023 9:45 AM EDT documented as of this encounter Care Teams Hand Alterations Seamstress Relationship Specialty Start Date End Date Cheo Santoyo DO [address] [place] [phone] PCP - General Family Medicine 07/06/23 documented as of this encounter
--- OUTSIDE RECORDS SUMMARY | 2024-01-11 22:14 | XMS_ITS | Encounter Summary ---
Author Organization Jose Alejandro Pantoja [facility] Address [address] [place] [address] Care Team Providers Care Energy Control Officer Name Role Phone Felicitas Monaco MD Primary Care Provider [phone] Reason for Visit * Reason Comments Post-Op Check R TKA Encounter Details Date Type Department Care Team (Late st Contact Info) Description 04/16/2023 1:45 PM EST Office Visit Orthopaedics - Maryan Jacobsen Dr. [address] [place] [phone] Marquise Moses, SUPERVISOR SAMPLE - RISK OFFICER Presence of artificial knee joint, right (Primary Dx) Social History Tobacco Use Types [...] PHQ-2 Answer Date Recorded PHQ-9 Total Score 2 02/26/2023 Exercise Vital Sign Answer Date Recorde d [...] as of this encounter Progress Notes * Marquise Moses, SUPERVISOR SAMPLE - RISK OFFICER - 04/16/2023 1:46 PM EST Images from the original note were not included. Date: 04/16/2023 Patient Name: Martínez Toribio : 1955 Primary Care Provider: Felicitas Moanco MD Reason for Visit: Post-Op Check (R TKA) History of Present Illness: 68 y.o. male presents with Chief Complaint Patient presents with Post-Op Check R TKA . Date of Surgery 03/17/23 Procedure: right TKA Patient feels fine Pain level: mild Pain med working satisfactorily: Yes Incision: fine Assistive device: None ROM: improving Other: L knee pops; thinks its due to working it in PT; has pain at night that wakes him up; at 0 and 115 with flexion Patient is 1 month status post right total knee arthroplasty. Overall he is doing well. He has milddiscomfort in his right knee. He has been taking aspirin therapy for DVT prophylaxis. He is also taking Celebrex on a daily basis. He denies any fevers or chills. He denies any incisional issues. He states he is getting 0 to 115 degrees with his range of motion. He has had a history of some poppingin his left knee and his knee was evaluated during his most recent surgery and no crepitus was noted. He states that has been better while he has been convalescing but now he feels that it is beginning to pop again since he has been working in physical therapy. Physical Examination: General: no acute distress Vascular: neurovascularly intact, no sign of DVT/VTE, calf supple, nontender to palpation Psych: alert, oriented; mood and affect appropriate Musculoskeletal: Right Knee Alignment: Normal Gait: Typical for this stage Skin: Normal with no rashes or lesions Incision: Incision looks good Effusion: Small Palpation: Normal, extensor mechanism intact ROM: Painless ROM extension: 5 degrees ROM flexion: 115 degrees Stability: Normal Strength: Typical for this stage Assessment/Plan Martínez was seen today for post-op check. Diagnoses and all orders for this visit: Presence of artificial knee joint, right XR KNEE RIGHT (3 VIEWS) [04/16/2023 2:28:32 PM - MARQUISE MOSES] multiple views of the right knee reveal well aligned, well fixed knee replacement components without any issues or concerns We reviewed the patient's radiographic films today. Patient has a stable appearing right total kneearthroplasty -Physical therapy / home exercises with continued focus on achieving/maintaining full extension andimproving flexion capabilities as much as possible. Patient may apply Vaseline or vitamin E oil to his incision a couple of times a day. He will continue to ice and elevate his knee as needed. -Patient may continue to increase all activities as tolerated -Anticoagulation: May discontinue aspirin therapy at this time for DVT prophylaxis and return to all preoperative medications and/or supplements -We had a discussion including expectations and guidelines for recovery and care including antibiotic prophylaxis for lifetime including for dental procedures -Return to work: Not applicable New Prescriptions AMOXICILLIN (AMOXIL) 500 MG CAPSULE Take 4 capsules by mouth once for 1 dose ,one hour prior to dental procedure Follow-up: 6 weeks documented in this encounter Plan of Treatment Upcoming Encounters Date Type Department Care Team (Late st Contact Info) Description 03/24/2024 9:00 AM EDT Office Visit Neurology - [facility] [address] [facility] [address] [place] [address] Martell Calderon MD 214 [facility] [address] [place] [address] TREMORS/ MEDICARE, FOR LIFE 03/28/2024 8:30 AM EDT Office Visit Primary Care - [address] [address] Cheo Santoyo DO [address] [place] [phone] AWV 04/06/2024 9:45 AM EST Lab [facility] - [facility] [address] [facility] [address] [place] [phone] CBCMP,CEA,FEST 04/06/2024 10:15 AM EST [facility] [address] [facility] [address] [place] [phone] Georgi Butterfield MD [address] [place] [address] 6 MTH FU W/LABS, REV SCAN 04/13/2024 9:30 AM EST Office Visit Surgical Oncology - [facility] [address] [facility] [address] [place] [address] Delvis Cheek MD [address] [facility] [address] [place] [address] 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 06/19/2024 10:30 AM EST Office Visit Orthopaedics- Les Valencia [address] [facility] [address] [place] [address] Karly Bautista PA [address] [place] [address] annual visit from date of surgery May/Jul 2024 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 documented as of this encounter Procedures Procedure Name Priority Date/Time Associated Diagnosis Comments XR KNEE RIGHT (3 VIEWS) Routine 04/16/2023 2:06 PM EST Presence of artificial knee joint, right documented in this encounter Results * XR KNEE RIGHT (3 VIEWS) (04/16/2023 2:06 PM EST) Anatomical Region Laterality Modality Thigh, Knee, Leg Computed Radiog sharla Narrative 04/16/2023 2:28 PM EST [04/16/2023 2:28:32 PM - MARQUISE MOSES] multiple views of the right knee reveal well aligned, well fixed knee replacement components without any issues or concerns Marquise Moses SUPERVISOR SAMPLE - RISK OFFICER IMG DIAGNOST IC IMAGING ORDERABLES documented in this encounter Visit Diagnoses Diagnosis Presence of artificial knee joint, right- Primary documented in this encounter Additional Health Concerns Assessment Noted Time A fall risk assessment has been complete d for the patient 02/26/2023 9:45 AM EDT documented as of this encounter Care Teams Energy Control Officer Relationship Specialty Start Date End Date Felicitas Monaco MD PCP - General Family Medicine 06/18/22 07/05/23 documented as of this encounter
--- OUTSIDE RECORDS SUMMARY | 2024-01-11 22:14 | XMS_ITS | Encounter Summary ---
Author Organization Jose Alejandro Pantoja [facility] Address [address] [place] [address] Care Team Providers Care Fixture Relamper Name Role Phone Yarelis Cheo Moshe REYES Primary Care Provider [phone] Reason for Visit * Reason Onset Date Comments Call Patient 09/29/2023 Encounter Details Date Type Department Care Team (Late st Contact Info) Description 09/29/2023 Telephone Orthopaedics - Emy Saeed Dr. [address] [facility] [address] [place] [address] Maurice Panchal MD [address] [facility] 17 [facility] 105 [place] [address] Call Patient Social History Tobacco [...] 9:00 AM EDT Office Visit Neurology - [facility] [address] [facility] [address] [place] [address] Martell Calderon MD [address] [facility] [address] [place] [address] TREMORS/ MEDICARE, FOR LIFE 03/28/2024 8:30 AM EDT Office Visit Primary Care - [address] [address] Cheo Santoyo DO [address] [place] [phone] AWV 04/06/2024 9:45 AM EST Lab [place] [facility] [address] [facility] [address] [place] [address] CBCMP,CEA,FEST 04/06/2024 10:15 AM EST Office Visit [facility] - [facility] [address] [facility] [address] [place] [address] Georgi Butterfield MD [address] [place] [address] 6 MTH FU W/LABS, REV SCAN 04/13/2024 9:30 AM EST Office Visit Surgical Oncology - [facility] [address] [facility] [address] [place] [phone] Delvis Cheek MD [address] 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 documented as of this encounter Visit Diagnoses Not on filedocumented in this encounter Additional Health Concerns Assessment Noted Time A fall risk assessment has been complete d for the patient 07/06/2023 9:36 AM EST documented as of this encounter Care Teams Fixture Relamper Relationship Specialty Start Date End Date Cheo Santoyo DO [address] [place] [phone] PCP - General Family Medicine 07/06/23 documented as of this encounter
--- OUTSIDE RECORDS SUMMARY | 2024-01-11 22:14 | XMS_ITS | Encounter Summary ---
Author Organization Jose Alejandro Pantoja [facility] Address [address] [place] [address] Care Team Providers Care Mortgage Lender Name Role Phone Cheo Santoyo Primary Care Provider [phone] Encounter Details Date Type Department Care Team (Late st Contact Info) Description 06/22/[address] [facility] Hematology & Oncology - [facility]. [address] [facility] [address] [place] [address] Georgi Butterfield MD [address] [place] [address] Social History Tobacco Use Types [...] 9:00 AM EDT Office Visit Neurology - [facility] [address] [facility] [facility] [address] [place] [address] Martell Calderon MD 2[address] [facility] [address] [place] [address] TREMORS/ MEDICARE, FOR LIFE 03/28/2024 8:30 AM EDT Office Visit Primary Care - [address] [address] Cheo Santoyo DO [address] [place] [phone] AWV 04/06/2024 9:45 AM EST Lab [place] [facility] - [facility] [address] [facility] [address] [place] [address] CBCMP,CEA,FEST 04/06/2024 10:15 AM EST Office Visit [place] [facility] - [facility] [address] [facility] [address] [place] [address] Georgi Butterfield MD [address] [place] [address] 6 MTH FU W/LABS, REV SCAN 04/13/2024 9:30 AM EST Office Visit Surgical Oncology - [facility] [address] [facility] [address] [place] [address] Delvis Cheek MD 125 [facility] [address] [place] [address] 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 documented as of this encounter Visit Diagnoses Not on filedocumented in this encounter Additional Health Concerns Assessment Noted Time A fall risk assessment has been complete d for the patient 02/26/2023 9:45 AM EDT documented as of this encounter Care Teams Mortgage Lender Relationship Specialty Start Date End Date Ceho Santoyo DO [address] [place] [phone] PCP - General Family Medicine 07/06/23 documented as of this encounter
--- OUTSIDE RECORDS SUMMARY | 2024-01-11 22:14 | XMS_ITS | Encounter Summary ---
Author Organization Jose Alejandro [facility]iriano [facility] Address [address] [place] [address] Care Team Providers Care Sap Payroll Consultant Name Role Phone Cheo Santoyo Moshe REYES Primary Care Provider [phone] Encounter Details Date Type Department Care Team (Late st Contact Info) Description 08/20/2023 2:40 PM EDT Ancillary Procedure Orthopaedics - [address] [place] [address] Social History Tobacco Use Types Packs/Day Years [...] 9:00 AM EDT Office Visit Neurology - [facility] [address] [facility] [address] [place] [address] Martell Calderon MD 2[address] [facility] [address] [place] [address] TREMORS/ MEDICARE, FOR LIFE 03/28/2024 8:30 AM EDT Office Visit Primary Care - [address] [phone] Cheo Santoyo, [address] [address] AWV 04/06/2024 9:45 AM EST Lab [place] [facility] - [facility] [address] [facility] [address] [place] [address] CBCMP,CEA,FEST 04/06/2024 10:15 AM EST Office Visit [place] [facility] - [facility] [address] [facility] [address] [place] [address] Georgi Butterfield MD [address] [place] [address] 6 MTH FU W/LABS, REV SCAN 04/13/2024 9:30 AM EST Office Visit Surgical Oncology - [facility] [address] 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 documented as of this encounter Procedures Procedure Name Priority Date/Time Associated Diagnosis Comments XR HIP RIGHT (2-3 VIEWS) Routine 08/20/2023 2:47 PM EDT Right hip pain documented in this encounter Results * XR HIP RIGHT (2-3 VIEWS) (08/20/2023 2:47 PM EDT) Anatomical Region Laterality Modality Hip, Pelvis, Thigh Computed Radi ography Narrative 08/20/2023 2:51 PM EDT X-rays of the right hip were reviewed and interpreted by myself. ??X-rays show preserved superior joint space with no significant femoral head abnormalities or osteophytes. ??Possible small cyst noted in the medial femoral head Bonny [facility]ALLAS IMG DIAGNOSTIC IMAGI NG ORDERABLES documented in this encounter Visit Diagnoses Not on filedocumented in this encounter Additional Health Concerns Assessment Noted Time A fall risk assessment has been complete d for the patient 07/06/2023 9:36 AM EST documented as of this encounter Care Teams Sap Payroll Consultant Relationship Specialty Start Date End Date Cheo Santoyo DO [address] [place] [phone] PCP - General Family Medicine 07/06/23 documented as of this encounter
--- OUTSIDE RECORDS SUMMARY | 2024-01-11 22:14 | XMS_ITS | Encounter Summary ---
Author Organization Jose Alejandro Pantoja [facility] Address [address] [place] [address] Care Team Providers Care Mineral Industry Teacher Name Role Phone Cheo Santoyo DO Primary Care Provider [phone] Encounter Details Date Type Department Care Team ([facility] st Contact Info) Description 07/21/2023 Abstract Primary Care - [address] [address] Cheo Santoyo DO [address] [place] [address] Social History Tobacco Use Types Packs/Day [...] Upcoming Encounters Date Type Department Care Team ([facility] st Contact Info) Description 03/24/2024 9:00 AM EDT Office Visit Neurology - [facility] [address] [facility] [address] [place] [phone] Matrell Calderon MD 2[address] [facility] [address] [place] [address] TREMORS/ MEDICARE, FOR LIFE 03/28/2024 8:30 AM EDT Office Visit Primary Care - [address] [address] Cheo Santoyo [address] [address] AWV 04/06/2024 9:45 AM EST Lab [place] [facility] - [facility] [address] [facility] [address] [place] [address] CBCMP,CEA,FEST 04/06/2024 10:15 AM EST Office Visit [place] [facility] - [facility] [address] [facility] [address] [place] [address] Georgi Butterfield MD [address] [facility] [address] [place], [place] [phone] 6 MTH FU W/LABS, REV SCAN 04/13/2024 9:30 AM EST Office Visit Surgical Oncology - [facility] [address] [facility] [address] [place] [address] Delvis Cheek MD 125 [facility] 660 [place] [address] 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 documented as of this encounter Visit Diagnoses Not on filedocumented in this encounter Additional Health Concerns Assessment Noted Time A fall risk assessment has been complete d for the patient 07/06/2023 9:36 AM EST documented as of this encounter Care Teams Mineral Industry Teacher Relationship Specialty Start Date End Date Cheo Santoyo DO [address] [place] [phone] PCP - General Family Medicine 07/06/23 documented as of this encounter
--- OUTSIDE RECORDS SUMMARY | 2024-01-11 22:14 | XMS_ITS | Encounter Summary ---
Author Organization [facility] Address [address] [place] [address] Care Team Providers Care Certified Personal Chef Name Role Phone Cheo Santoyo DO Primary Care Provider [phone] Reason for Referral * Medication Prior Authorization - Closed Specialty Diagnoses / Procedures Referred By Rachid jimenez Referred To Contact Diagnoses Primary hypertension Cheo Santoyo DO [address] [place] [phone] Referral ID Status Reason Start Date Expiration Date Visits Re quested Visits Authorized [id number] Closed 1 1 Reason for Visit * Reason Comments New Patient Establish care Encounter Details Date Type Department Care Team ([facility] Contact Info) Description 07/06/2023 9:00 AM EST Office Visit Primary Care - [address] [phone] Cheo Santoyo DO [address] [place] [phone] Type 2 diabetes mellitus without complication, without long-term current use of insulin (HCC) (Primary Dx); Cervicalgia; Lumbar myelopathy (HCC); Adenocarcinoma of cecum (HCC); Ryan's esophagus with dysplasia; Primary hypertension; Nausea; Screening PSA (prostate specific antigen) Social History Tobacco Use Types Packs/Day Years Used Date Smoking Tobacco: Former Cigarettes 1 27 0 05/31/1969 - 05/31/1996 Smokeless Tobacco: Never Tobacco Cessation:Counseling Given: Yes Alcohol Use Standard Drinks/Week Comments Yes 4 [...] Sign Reading Time Taken Comments Blood Pressure 110/70 07/06/2023 9:25 AM EST Pulse 85 07/06/2023 9:25 AM EST Temperature - - Respiratory Rate - - Oxygen Saturation 96% 07/06/2023 9:25 AM EST Inhaled Oxygen Concentration - - Weight 96.6 kg (213 lb) 07/06/2023 9:25 AM EST Height 175.3 cm (5' 9) 07/06/2023 9:25 AM EST Body Mass Index 31.45 07/06/2023 9:25 AM EST documented in this encounter Progress Notes * Cheo Santoyo, - 07/06/2023 9:40 AM EST CHIEF COMPLAINT: Chief Complaint Patient presents with New Patient Establish care HISTORY OF PRESENT ILLNESS: Mr. Toribio is a 68 y.o. male who presents clinic to establish care. 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 He follows the following specialist: Dr Bello (ortho ) bilateral knee replacement Dr Valiente (ortho) Right shoulder Dr Butterfield (onc) - colon cancer s/p right [id number] follows every [address] Hogan (urology)- kidney stones Dr Bettencourt ( ortho ) cervical Dr Bourne (neuro) [facility]. Dr Tomlinson (hand specialist) Left wrist He is establishing care with [facility] tomorrow for neck pain. He declines covid vaccine. He has history of colon cancer stage 3, he follows Dr Butterfield every 6 months. Last colonoscopy was last month 1 polyp repeat yearly. Last A1c was 6.5 in February, he does monitor every so often ranges: 100, Denies polyuria or polydipsia. Feels bee sting like pain over left neck. No radiation of pain. No associated weakness of arm. Palliate: resting. Provoke position- neck flexed forwards while working on puzzles. Generally gets over sedated on muscle relaxer. States he has tried flexeril and valium have been too seating. PHQ: 07/06/2023 9:36 AM PHQ-9 Little interest or pleasure in doing things 0 Feeling down, depressed, or hopeless 0 PHQ-2 Score 0 PHQ-9 Total Score 0 CURRENT MEDICATION LIST: Current Outpatient Medications Medication Sig Dispense Refill amoxicillin (AMOXIL) 500 MG capsule Take 4 capsules by mouth methocarbamol (ROBAXIN-750) 750 MG tablet Take 1 tablet by mouth 4 times daily for 10 days 40 tablet 0 empagliflozin (JARDIANCE) 25 MG tablet 1 tablet Orally once daily 90 tablet 3 metFORMIN (GLUCOPHAGE) 1000 MG tablet 1 tablet with a meal Orally bid 180 tablet 3 pantoprazole (PROTONIX) 40 MG tablet 1 tablet Orally Once a day for 30 day(s) 90 tablet 3 dulaglutide (TRULICITY) 1.5 MG/0.5ML SC injection Inject 0.5 mLs into the skin once a week EVERY WEDNESDAY 12 Adjustable Dose Pre-filled Pen Syringe 5 olmesartan (BENICAR) 20 MG tablet Take 0.5 tablets by mouth daily 45 tablet 3 atorvastatin (LIPITOR) 40 MG tablet Take 1 tablet by mouth every morning 90 tablet 3 ondansetron (ZOFRAN) 4 MG tablet Take 1 tablet by mouth every 8 hours as needed for Nausea prn 90 tablet 3 acetaminophen (TYLENOL) 500 MG tablet Take 1 tablet by mouth in the morning and 1 tablet at noon and 1 tablet in the evening. 90 tablet 0 aspirin 81 MG EC tablet Take 1 tablet by mouth daily Indications: Treatment to Prevent Deep Vein Thrombosis 30 tablet 0 celecoxib (CELEBREX) 200 MG capsule Take 1 capsule by mouth daily Take with food 30 capsule 1 No current facility-administered medications for this visit. ALLERGIES: Allergies Allergen Reactions Morphine Itching, Nausea And Vomiting and Other (See Comments) Other reaction(s): migraines, hallucinations, itching Other reaction(s): Hallucinations, HALLUCINATIONS, ITCH, Other (See Comments) Event: hallucinations Migraines Other reaction(s): HALLUCINATIONS, ITCH, Unknown, Other: Sensitivity HISTORY: Past Medical History: Diagnosis Date Ryan's esophagus Cancer (HCC) 2020 Colon Chronic back pain Diabetes (HCC) DJD (degenerative joint disease) GERD (gastroesophageal reflux disease) Hip pain HTN (hypertension) Hyperlipidemia Left bundle branch block (LBBB) 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, states stress and testing was completed and tape recording machine operator signed off PONV (postoperative nausea and vomiting) Post-operative nausea and vomiting AND STATES BODY TEMP DROPPED TO 94 DEGREES F Sleep apnea MILD AND DOES NOT USE CPAP Spinal stenosis Type 2 diabetes mellitus without complication ([facility]) Past Surgical History: Procedure Laterality Date BACK SURGERY 02/05/1986 laminectomy, discectomy CERVICAL DISCECTOMY 04/18/2007 , cervical fusion 2012 COLONOSCOPY MULTIPLE HAND CARPECTOMY Left 2021 HAND SURGERY Right 2001 debby luanr repair HEMICOLECTOMY 2020 HIP SURGERY Right 06/18/2022 INTRA ARTICULAR HIP RIGHT HIP performed by Martinez Guthrie MD at [facility] PAIN MANAGEMENT JOINT REPLACEMENT Right 2011 shoulder KIDNEY STONE SURGERY 2009 basket removal KNEE ARTHROSCOPY Left 10/13/2021 multiple knee scopes right and left 1997 thru 2021 SHOULDER SURGERY Right 2010 2011 right hemiarthroplasty SUBTOTAL COLECTOMY 2019 R. Hemicolectomy TOTAL KNEE ARTHROPLASTY Left 12/21/2022 LEFT TOTAL KNEE ARTHROPLASTY, ROBOTIC performed by Maurice Bello MD at [facility] MAIN OR TOTAL KNEE ARTHROPLASTY Right 03/17/2023 RIGHT TOTAL KNEE ARTHROPLASTY, ROBOTIC performed by Maurice Bello MD at [facility] MAIN OR UPPER GASTROINTESTINAL ENDOSCOPY 2019 Social History Socioeconomic History Marital status: Spouse name: Not on file Number of children: Not on file Years of education: Not on file Highest education level: Not on file Occupational History Not on file Tobacco Use Smoking status: Former Current packs/day: 0.00 Average packs/day: 1 pack/day for 27.0 years (27.0 ttl pk-yrs) Types: Cigarettes Start date: 05/31/1969 Quit date: 05/31/1996 Years since quittin.1 Smokeless tobacco: Never Vaping Use Vaping Use: Never used Substance and Sexual Activity Alcohol use: Yes Alcohol/week: 4.0 - 5.0 standard drinks of alcohol Types: 4 - 5 Glasses of wine per week Drug use: Never Sexual activity: Not Currently Partners: Female Other Topics Concern Not on file Social History Narrative Not on file Social Determinants of Health Financial Resource Strain: Not on file Food Insecurity: Not on file Transportation Needs: Not on file Physical Activity: Sufficiently Active (02/26/2023) Exercise Vital Sign Days of Exercise per Week: 5 days Minutes of Exercise per Session: 60 min Stress: Not on file Social Connections: Not on file Intimate Partner Violence: Not on file Housing Stability: Not on file Family History Problem Relation Age of Onset Diabetes Maternal Grandmother REVIEW OF SYSTEMS: Review of systems is as indicated in HPI otherwise negative. PHYSICAL EXAM: Physical Exam Vitals reviewed. Constitutional: General: He is not in acute distress. Appearance: Normal appearance. He is normal weight. HENT: Head: Normocephalic. Right Ear: Ear canal normal. Left Ear: Ear canal normal. Mouth/Throat: Mouth: Mucous membranes are moist. Eyes: Extraocular Movements: Extraocular movements intact. Conjunctiva/sclera: Conjunctivae normal. Neck: Vascular: No carotid bruit. Cardiovascular: Rate and Rhythm: Normal rate and regular rhythm. Heart sounds: Normal heart sounds. No murmur heard. No gallop. Pulmonary: Effort: Pulmonary effort is normal. No respiratory distress. Breath sounds: No wheezing, rhonchi or rales. Abdominal: General: Abdomen is flat. Bowel sounds are normal. There is no distension. Palpations: Abdomen is soft. Tenderness: There is no abdominal tenderness. There is no guarding or rebound. Musculoskeletal: Cervical back: Normal range of motion and neck supple. Right lower leg: No edema. Left lower leg: No edema. Skin: General: Skin is warm and dry. Coloration: Skin is not jaundiced. Findings: No erythema or rash. Neurological: Mental Status: He is alert and oriented to person, place, and time. Comments: Negative Spurling's maneuver bilaterally. Paraspinal hypertonicity C2- C4 on left. Psychiatric: Mood and Affect: Mood normal. Behavior: Behavior normal. Thought Content: Thought content normal. Judgment: Judgment normal. Vital Signs - Visit Vitals BP 110/70 (Site: Left Upper Arm, Position: Sitting, Cuff Size: Medium Adult) Pulse 85 Ht 1.753 m (5' 9) Wt 96.6 kg (213 lb) SpO2 96% BMI 31.45 kg/m?? LABS No results found for this visit on 07/06/23. Office Visit on 04/08/2023 Component Date Value Ref Range Status CEA (SERIAL MONITOR) 04/08/2023 2.1 0.0 - 4.7 ng/mL Final Comment: Nonsmokers <3.9 Smokers <5.6 [facility] Electrochemiluminescence Immunoassay (ECLIA) Values obtained with different assay methods or kits cannot be used interchangeably. Results cannot be interpreted as absolute evidence of the presence or absence of malignant disease. Performed At: [address] [id number] Ajit Swift MD Ph:[phone] Test Performed at: [facility] [address] [facility] [address] [place] [address] Sodium 04/08/2023 140 135 - 145 mmol/L Final Potassium 04/08/2023 4.9 3.5 - 5.3 mmol/L Final Chloride 04/08/2023 104 98 - 107 mmol/L Final CO2 04/08/2023 25 22 - 29 mmol/L Final Glucose 04/08/2023 176 (H) 70 - 99 mg/dL Final BUN 04/08/2023 17 8 - 23 mg/dL Final Creatinine 04/08/2023 1.1 0.7 - 1.3 mg/dL Final Anion Gap 04/08/2023 11 2 - 17 mmol/L Final OSMOLALITY CALCULATED 04/08/2023 285 270 - 287 mOsm/kg Final Calcium 04/08/2023 10.1 8.8 - 10.2 mg/dL Final Total Protein 04/08/2023 7.0 6.4 - 8.3 g/dL Final Albumin 04/08/2023 4.6 3.5 - 5.2 g/dL Final Globulin 04/08/2023 2.5 1.9 - 4.4 g/dL Final Albumin/Globulin Ratio 04/08/2023 1.86 1.00 - 2.70 Final Total Bilirubin 04/08/2023 0.41 0.00 - 1.20 mg/dL Final Alk Phosphatase 04/08/2023 114 40 - 130 unit/L Final AST 04/08/2023 23 0 - 50 unit/L Final ALT 04/08/2023 28 0 - 50 unit/L Final Est, Glom Filt Rate 04/08/2023 74 >=60 mL/min/1.73m? Final Comment: VERIFIED by Discern Expert. GFR Interpretation: % OF KIDNEY GFR STAGE FUNCTION == > 90 Normal kidney function STAGE 1 90-100% 89 to 60 Mild loss of kidney function STAGE 2 80-60% 59 to 45 Mild to moderate loss of kidney function STAGE 3a 59-45% 44 to 30 Moderate to severe loss of kidney function STAGE 3b 44-30% 29 to 15 Severe loss of kidney function STAGE 4 29-15% < 15 Kidney failure STAGE 5 <15% == Modified from National Kidney Foundation GFR Calculation performed using the CKD-EPI 2020 equation developed for use with IDMS traceable creatinine methods and is the calculation recommended by the National Kidney Foundation for estimating GFR in adults. Test Performed at: [facility] [address] [facility] [place] [address] WBC 04/08/2023 7.1 4.1 - 10.9 K/uL Final Absolute Lymph # 04/08/2023 2.2 0.6 - 4.1 K/uL Final Absolute Mid 04/08/2023 0.7 0.0 - 1.8 K/uL Final Granulocyte Absolute Count 04/08/2023 4.3 2.0 - 7.8 K/uL Final Lymphocytes 04/08/2023 30.5 10.0 - 58.5 % Final MID % 04/08/2023 9.5 0.1 - 24.0 % Final Granulocytes % 04/08/2023 60.0 37.0 - 92.0 % Final RBC 04/08/2023 5.07 4.20 - 6.30 M/uL Final Hemoglobin 04/08/2023 16.0 12.0 - 17.5 g/dL Final Hematocrit 04/08/2023 48.8 37.0 - 51.0 % Final MCV 04/08/2023 96.2 80.0 - 97.5 fL Final MCH 04/08/2023 31.6 26.0 - 32.0 pg Final MCHC 04/08/2023 32.8 31.0 - 36.0 g/dL Final RDW 04/08/2023 12.5 11.5 - 14.5 % Final Platelets 04/08/2023 452 (H) 140 - 440 K/uL Final MPV 04/08/2023 7.5 0.0 - 49.9 fL Final Ferritin 04/08/2023 291.1 30.0 - 400.0 ng/mL Final Comment: Test Performed at: [facility] [address] [place] [address] [place] [address] Iron 04/08/2023 80 59 - 158 mcg/dL Final UIBC 04/08/2023 221.8 112.0 - 347.0 mcg/dL Final TIBC 04/08/2023 302 250 - 450 mcg/dL Final Iron % Saturation 04/08/2023 26 20 - 40 % Final Comment: Test Performed at: [facility] [address] [place] [address] [place] [address] RBC 04/08/2023 5.10 4.00 - 5.60 x10e6/mcL Final Retic Ct Pct 04/08/2023 1.8 0.5 - 2.0 % Final Retic Ct Abs 04/08/2023 0.0933 0.0235 - 0.1220 /mcL Final Comment: Test Performed at: [facility] [address] [facility] [place] [address] Soluble Transferrin Recept 04/08/2023 20.7 12.2 - 27.3 nmol/L Final Comment: Performed At: [facility] [address] [id number] Ajit Swift MD Ph:[phone] Test Performed at: [facility] [address] [place] [address] Vitamin B-12 04/08/2023 547 232 - 1245 pg/mL Final Comment: Effective 05/05/17 Vitamin B12 Methodology Change - Vitamin B12 Reference Range has been revised. Test Performed at: [facility] [address] [facility] [address] [place] [address] Folate 04/08/2023 13.39 4.80 - 24.20 ng/mL Final Comment: Test Performed at: [facility] [address] [place] [address] IMPRESSION/PLAN Encounter Diagnoses Name Primary? 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 Type 2 diabetes mellitus without complication, without long-term current use of insulin (HCC) Assessment & Plan: last hemoglobin A1c well-controlled at 6.5. Patient reporting good control of fasting blood sugars.Last hemoglobin A1c well-controlled. Will plan on rechecking A1c and advise accordingly. Diabetic regiment refilled for the next year. Orders: - Hemoglobin A1C; Future - Comprehensive Metabolic Panel; Future - atorvastatin (LIPITOR) 40 MG tablet; Take 1 tablet by mouth every morning, Disp-90 tablet, R-3Normal 2. Cervicalgia Assessment & Plan: patient's status post discectomy with cervical complaint back in 2006. Patient currently without any pain that radiates to his arms or any upper extremity weakness. He has occasional sharp stinging pain over the left side of his neck. Pain appears to be positional related. Will begin patient on Robaxin. Robaxin chosen because it should not be sedating. Patient given isometric stretching exercisesto try at home. Patient will notify me if symptoms persist and do not improve. Orders: - methocarbamol (ROBAXIN-750) 750 MG tablet; Take 1 tablet by mouth 4 times daily for 10 days, Disp-40 tablet, R-0Normal 3. Lumbar myelopathy (HCC) Assessment & Plan: Patient with history of laminectomy and fusion of L5-S1. Patient currently without any red flag symptoms. Patient without any complaints of low back pain or radiation of pain down legs. 4. Adenocarcinoma of cecum (HCC) Assessment & Plan: status post hemicolectomy. Patient follows with Dr. Silva for surveillance colonoscopy. 5. Ryan's esophagus with dysplasia Assessment & Plan: reportedly improved on last EGD, conitnue PPI. Orders: - pantoprazole (PROTONIX) 40 MG tablet; 1 tablet Orally Once a day for 30 day(s), Disp-90 tablet, R-3Normal 6. Primary hypertension Assessment & Plan: blood pressure currently well-controlled, will continue current blood pressure regiment. Patient will continue watch salt intake and to target 10% weight loss. Orders: - olmesartan (BENICAR) 20 MG tablet; Take 0.5 tablets by mouth daily, Disp-45 tablet, R-3Normal 7. Nausea - ondansetron (ZOFRAN) 4 MG tablet; Take 1 tablet by mouth every 8 hours as needed for Nausea prn, Disp-90 tablet, R-3Normal 8. Screening PSA (prostate specific antigen) - PSA Screening; Future Follow up and Dispositions: Return in about 6 months (around 01/04/2024). Cheo Santoyo DO documented in this encounter Plan of Treatment Upcoming Encounters Date Type Department Care Team (Late st Contact Info) Description 03/24/2024 9:00 AM EDT [facility] [address] [facility] [address] [place] [phone] Martell Calderon MD [address] [facility] [place] [address] TREMORS/ MEDICARE, FOR LIFE 03/28/2024 8:30 AM EDT Office Visit Primary Care - [address] [phone] Cheo Santoyo DO [facility] [place] [address] AWV 04/06/2024 9:45 AM EST Lab [facility] - [facility] [address] [facility] [address] [place] [address] CBCMP,CEA,FEST 04/06/2024 10:15 AM EST Office Visit [facility] - [facility] [address] [facility] [address] [place] [address] Georgi Butterfield MD [address] [facility] [address] [place] [address] 6 MTH FU W/LABS, REV SCAN 04/13/2024 9:30 AM EST Office Visit Surgical Oncology - [facility] [address] [facility] [address] [place] [phone] Delvis Cheek MD [address] [facility] [address] [place] [phone] 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 06/19/2024 10:30 AM EST Office Visit Orthopaedics- [place] [address] [facility] [address] [place] [phone] Karly Bautista PA [address] [place] [address] annual visit from date of surgery May/Jul 2024 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 documented as of this encounter Procedures Procedure Name Priority Date/Time Associated Diagnosis Comments COLONOSCOPY Routine 06/01/2023 documented in this encounter Results * PSA Screening (07/06/2023 11:08 AM EST) PSA, Screening 1.420 0.000 - 4.000 ng/mL [facility] Comment: PSA INTERPRETATION: PSA measured by Ja Harry electrochemiluminescence immunoassay ECLIA methodology. At this time, no major scientific/medical organization including the [place] [employer] and the [place] [employer] have specific recommendations in regard [...] PM EST Cheo Santoyo DO CHEMISTRY ORDERABLES [facility] [address] [facility] [place] [address] * (ABNORMAL) Comprehensive Metabolic Panel (07/06/2023 11:08 AM EST) Sodium 140 135 - 145 mmol/L [facility] Potassium 5.5(H) 3.5 - 5.3 mmol/L [facility] Chloride 104 98 - 107 mmol/L [facility] CO2 27 22 - 29 mmol/L [facility] Glucose 102(H) 70 - 99 mg/dL [facility] BUN 20 8 - 23 mg/dL [facility] Creatinine 1.1 0.7 - 1.3 mg/dL [facility] Anion Gap 9 2 - 17 mmol/L [facility] Osmolaliy Calculated 282 270 - 287 mOsm/kg [facility] Calcium 10.2 8.8 - 10.2 mg/dL [facility] Total Protein 6.5 6.4 - 8.3 g/dL [facility] Albumin 4.4 3.5 - 5.2 g/dL [facility] Globulin 2.1 1.9 - 4.4 g/dL [facility] Albumin/Globulin Ratio 2.10 1.00 - 2.70 [facility] Total Bilirubin 0.30 0.00 - 1.20 mg/dL [facility] Alk Phosphatase 78 40 - 130 unit/L [facility] AST 19 0 - 50 unit/L [facility] ALT 27 0 - 50 unit/L [facility] Est, Glom Filt Rate 74 >=60 mL/min/1.7 3m?? [facility] Comment: VERIFIED by Discern Expert. GFR Interpretation: [...] in adults. Blood BLOOD SPECIMEN / Unknown 07/06/2023 11:08 AM EST 07/06/2023 4:08 PM EST Cheo Santoyo DO CHEMISTRY ORDERABLES Performing Organization Address City/State/[facility] Co de Phone Number [facility] [address] [place] [address] * (ABNORMAL) Hemoglobin A1C (07/06/2023 11:08 AM EST) Hemoglobin A1C 6.8(H) 4.0 - 6.0 % [facility] Comment: HEMOGLOBIN A1C INTERPRETATION: The following arbitrary [...] Inadequate Control Est. Avg. Glucose, WB [address] [facility] Est. Avg. Glucose-calculated [address] [facility] Blood BLOOD SPECIMEN / Unknown 07/06/2023 11:08 AM EST 07/06/2023 3:58 PM EST Cheo Santoyo DO CHEMISTRY ORDERABLES Performing Organization Address City/State/[facility] de Phone Number [facility] [address] [facility] [address] [place] [phone] * COLONOSCOPY (06/01/2023) 06/01/2023 Historical Provider MD SERGIO Benedict documented in this encounter Visit Diagnoses Diagnosis Type 2 diabetes mellitus without complication, without long-term current use of insulin (HCC)- Primary Cervicalgia Lumbar myelopathy (HCC) Spondylosis with myelopathy, 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
--- OUTSIDE RECORDS SUMMARY | 2024-01-11 22:14 | XMS_ITS | Encounter Summary ---
Author Organization Jose Alejandro Pantoja [facility] Address [address] [place] [address] Care Team Providers Care Purchasing Specialist Name Role Phone Cheo Santoyo Moshe REYES Primary Care Provider [phone] Reason for Visit * Reason Comments Hip Pain RIGHT Encounter Details Date Type Department Care Team (Latest Contact Info) Description 08/20/2023 3:00 PM EDT Office Visit Orthopaedics - [address] [phone] Bonny Mcarthur [address] [address] Primary osteoarthritis of right hip (Primary Dx); Right hip pain; Presence of artificial knee joint, right Social History Tobacco Use Types Packs/Day Years [...] as of this encounter Progress Notes * Bonny Mcarthur PA - 08/20/2023 3:00 PM EDT Images from the original note were not included. Date: 08/20/2023 Patient Name: Martínez Toribio : 1955 Primary Care Physician: Cheo Santoyo DO Reason for Visit: Right hip pain History of Present Illness: Dr. Panchal and I had the pleasure of seeing the patient in orthopedic clinic today. Patient is 68 y.o. male complaining of right hip pain. Patient has undergone previous right and left total knee arthroplasty by Dr. Panchal 2022. He describes instability and difficulty walking in addition to moderate/severe pain due to right hip complaints. He states his symptoms have persisted [id number]. He is also having intermittent severe catching. He has been struggling with activities ofdaily living as a result of his symptoms including walking short distances less than a 1/4 mile or 2 city blocks and stairs. Patient denies to a fear of falling. He has made attempts at conservative treatment options including NSAIDs, physical therapy, injections, and cane, and the use of a wheelchair. Patient would like to now discuss definitive treatment for their complaints. Patient's medications, allergies, past medical, surgical, social and family histories were reviewedand updated as appropriate. 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 as calculated from the following: Height as of 07/06/23: 1.753 m (5' 9). Weight as of 07/06/23: 96.6 kg (213 lb). GENERAL APPEARANCE: normal PSYCH: alert, oriented, mood/affect appropriate SKIN: no ulcers or rashes of lower extremities VASCULAR: no signs of significant arterial, venous, or lymphatic insufficiency NEUROLOGICAL: SENSORY: normal to light touch in lower extremities. STRAIGHT LEG RAISE negative. MUSCULOSKELETAL: GAIT & STATION: Gait was not assessed today. Patient presents in a wheelchair due to difficultywalking SPINE/PELVIS: normal RIGHT HIP: Alignment: Normal Leg Lengths: Equal Palpation: Normal with no tenderness ROM: Painful with internal rotation and external rotation ROM internal rotation: 15 degrees ROM external rotation: 20 degrees Stability: Normal Strength and Tone: Normal Tests: Negative Stinchfield test LEFT HIP: Alignment: Normal Leg Lengths: Equal Palpation: Normal with no tenderness ROM: Painless ROM internal rotation: 15 degrees ROM external rotation: 40 degrees Stability: Normal Strength and Tone: Normal Tests: Negative Stinchfield test Xray Result (most recent): XR HIP RIGHT (2-3 VIEWS) 08/20/2023 Narrative X-rays of the right hip were reviewed and interpreted by myself. X-rays show preserved superior joint space with no significant femoral head abnormalities or osteophytes. Possible small cyst noted inthe medial femoral head MRI images and report from March 2022 were also reviewed. 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 Assessment: ICD-10-CM 1. Primary osteoarthritis of right hip M16.11 2. Right hip pain M25.551 XR HIP RIGHT (2-3 VIEWS) Plan: Right total hip arthroplasty by DA approach using Hugo robotic-assisted technology Stepped care not indicated at this point based on radiographic findings and severity of symptoms. Further delay or depravation for medical or insurance reasons would be inhumane under modern circumstances not to mention the risk of side effects with alternative medical treatments, risk of further joint and general health deterioration, and wasteful expense for prescriptions such as medicines and physical therapy not being warranted before definitive treatment of arthroplasty in this case. The patient may opt to avoid this elective surgery and elect to live with the symptoms or prolong with temporizing measures, but the condition will not be cured short of arthroplasty and the procedure is ce rtainly medically indicated in reasonable. Patient will require walker and/or cane following total joint arthroplasty for assistance with ambulation. The patient has a mobility limitation that significantly impairs his/her ability to participate in one or more mobility related activities of daily living in the home, is able to safely use the walker and/or cane and the functional mobility deficit can be sufficiently resolved by the use of the walker and/or cane. Pre-op Discussion: Technical aspects of the procedure, risks, benefits, alternatives, expected recovery time, longevity of implants, and possible lifetime activity limits were discussed with the patient who was given the joint replacement notebook and other patient education. All questions were answered. Informed consent was given. Patient is interested in trying to go home the day of surgery. Patient has elected not to see Dr. Panchal today prior to proceeding with surgical intervention. We will afford him this courtesy. Patient is aware of the possibility of lateral femoral cutaneous nerve irritation with this approach. Patient is on Trulicity and will need to abide by our GLP-1 protocol for be canceled Follow Up: 4 weeks after scheduled surgery, sooner if needed documented in this encounter Plan of Treatment Upcoming Encounters Date Type Department Care Team (Late st Contact Info) Description 03/24/2024 9:00 AM EDT Office Visit Neurology - [facility] [address] [facility] [address] [place] [phone] Martell Calderon MD [address] [facility] [address] [place] [address] TREMORS/ MEDICARE, FOR LIFE 03/28/2024 8:30 AM EDT Office Visit Primary Care - [address] [phone] Cheo Satnoyo DO [address] [place] [phone] AWV 04/06/2024 9:45 AM EST Lab [facility] - [facility] [address] [facility] [address] [place] [phone] CBCMP,CEA,FEST 04/06/2024 10:15 AM EST Office Visit [facility] - [facility] [address] [facility] [address] [place] [phone] Georgi Butterfield MD [address] [place] [address] 6 MTH FU W/LABS, REV SCAN 04/13/2024 9:30 AM EST Office Visit Surgical Oncology - [facility] [address] [facility] [address] [place] [phone] Delvis Cheek MD 125 [facility] [address] [place] [phone] 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 06/19/2024 10:30 AM EST Office Visit Orthopaedics- Les Valencia [address] [facility] [address] [place] [phone] Karly Bautista W, PA [address] [place] [phone] annual visit from date of surgery May/Jul [...] Primary localized osteoarthrosis, pelvic region and thigh Right hip pain Pain in joint, pelvic region and thigh Presence of artificial knee joint, right documented in this encounter Additional Health Concerns Assessment Noted Time A fall risk assessment has been complete d for the patient 07/06/2023 9:36 AM EST documented as of this encounter Care Teams Purchasing Specialist Relationship Specialty Start Date End Date Cheo Santoyo DO [address] [place] [phone] PCP - General Family Medicine 07/06/23 documented as of this encounter
--- OUTSIDE RECORDS SUMMARY | 2024-01-11 22:14 | XMS_ITS | Encounter Summary ---
Author Organization Jose Alejandro Pantoja [facility] Address [address] [place] [address] Care Team Providers Care Planning Consultant Name Role Phone Cheo Santoyo DO Primary Care Provider [phone] Reason for Visit * Reason Onset Date Comments Med Refill Clerical 09/03/2023 Encounter Details Date Type Department Care Team ([facility] Contact Info) Description 09/03/2023 Telephone Primary Care - [address] [phone] Cheo Santoyo DO [address] [place] [phone] Med Refill Clerical Social History Tobacco Use Types Packs/Day Years [...] 9:00 AM EDT Office Visit Neurology - [facility] [address] [facility] [address] [place] [address] Martell Calderon MD 214 [facility] [address] [place] [address] TREMORS/ MEDICARE, FOR LIFE 03/28/2024 8:30 AM EDT Office Visit Primary Care - [address] [phone] Cheo Santoyo DO [address] [place] [phone] AWV 04/06/2024 9:45 AM EST Lab [facility] - [facility] [address] [facility] [address] [place] [address] CBCMP,CEA,FEST 04/06/2024 10:15 AM EST Office Visit [facility] - [facility] [address] [facility] [address] [place] [address] Georgi Butterfield MD [address] [place] [address] 6 MTH FU W/LABS, REV SCAN 04/13/2024 9:30 AM EST Office Visit Surgical Oncology - [facility] [address] [facility] [address] [place] [phone] Delvis Cheek MD 125 [facility] [address] [place] [phone] 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 06/19/2024 10:30 AM EST Office Visit Orthopaedics- Les Valencia [address] [facility] [address] [place] [phone] Karly Bautista W, PA [address] [place] [phone] annual visit from date of surgery May/Jul 2024 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 documented as of this encounter Visit Diagnoses Not on filedocumented in this encounter Additional Health Concerns Assessment Noted Time A fall risk assessment has been complete d for the patient 07/06/2023 9:36 AM EST documented as of this encounter Care Teams Planning Consultant Relationship Specialty Start Date End Date Cheo Santoyo DO [address] [place] [phone] PCP - General Family Medicine 07/06/23 documented as of this encounter
--- OUTSIDE RECORDS SUMMARY | 2024-01-11 22:14 | XMS_ITS | Encounter Summary ---
Author Organization Jose Alejandro Pantoja [facility] Address [address] [place] [address] Care Team Providers Care Project Management Advisor Name Role Phone Cheo Santoyo Moshe REYES Primary Care Provider [phone] Encounter Details Date Type Department Care Team (Late st Contact Info) Description 08/17/2023 Orders Only Orthopaedics - [address] [phone] Bonny Mcarthur [facility] [address] [address] Right hip pain (Primary Dx) Social History Tobacco Use Types [...] Neurology - [facility] [address] [facility] [address] [place] [address] Martell Calderon MD 214 [facility] [address] [place] [address] TREMORS/ MEDICARE, FOR LIFE 03/28/2024 8:30 AM EDT Office Visit Primary Care - [address] [phone] Cheo Santoyo, [address] [place] [phone] AWV 04/06/2024 9:45 AM EST Lab [facility] - [facility] [address] [facility] [address] [place] [address] CBCMP,CEA,FEST 04/06/2024 10:15 AM EST Office Visit [facility] - [facility] [address] [facility] [address] [place] [phone] Georgi Butterfield MD [address] [facility] [address] [place] [phone] MTH FU W/LABS, REV SCAN 04/13/2024 9:30 AM EST Office Visit Surgical Oncology - [facility] [address] [facility] [address] [place] [phone] Delvis Cheek MD 125 [facility] [address] [place] [address] 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 06/19/2024 10:30 AM EST Office Visit Orthopaedics- Les Valencia [address] [facility] [address] [place] [phone] Karly Bautista PA [address] [place] [phone] annual visit from date of surgery May/Jul 2024 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 Scheduled Orders Name Type Priority Associated Diagnoses Orde r Schedule XR PELVIS (1-2 VIEWS) Imaging Routine Right hip pain Ordered: 08/17/2023 documented as of this encounter Visit Diagnoses Diagnosis Right hip pain- Primary Pain in joint, pelvic region and thigh documented in this encounter Additional Health Concerns Assessment Noted Time A fall risk assessment has been complete d for the patient 07/06/2023 9:36 AM EST documented as of this encounter Care Teams Project Management Advisor Relationship Specialty Start Date End Date Cheo Santoyo DO [address] [place] [phone] PCP - General Family Medicine 07/06/23 documented as of this encounter
--- OUTSIDE RECORDS SUMMARY | 2024-01-11 22:14 | XMS_ITS | Encounter Summary ---
Author Organization Jose Alejandro [facility]iriano [facility] Address [address] [place] [address] Care Team Providers Care Ceiling Insulation Blower Name Role Phone Cheo Santoyo DO Primary Care Provider [phone] Reason for Visit * Reason Onset Date Comments Medication Adjustment 09/06/2023 Encounter Details Date Type Department Care Team ([facility] st Contact Info) Description 09/06/2023 Telephone Primary Care - [address] [phone] Cheo Santoyo DO [address] [place] [phone] Medication Adjustment Social History Tobacco Use Types Packs/Day Years [...] 9:00 AM EDT Office Visit Neurology - [facility] [address] [facility] [address] [place] [address] Martell Calderon MD 214 [facility] [address] [place] [address] TREMORS/ MEDICARE, FOR LIFE 03/28/2024 8:30 AM EDT Office Visit Primary Care - [address] [phone] Cheo Santoyo DO [address] [place] [address] AWV 04/06/2024 9:45 AM EST Lab [facility] - [facility] [address] [facility] [address] [place] [address] CBCMP,CEA,FEST 04/06/2024 10:15 AM EST Office Visit [facility] - [facility] [address] [facility] [address] [place] [address] Georgi Butterfield MD [address] [place] [address] 6 MTH FU W/LABS, REV SCAN 04/13/2024 9:30 AM EST Office Visit Surgical Oncology - [facility] [address] [facility] [address] [place] [phone] Delvis Cheek MD 125 [facility] [address] [place] [address] 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 06/19/2024 10:30 AM EST Office Visit Orthopaedics- Les Valencia [address] [facility] [address] [place] [phone] Karly Bautista, PA [address] [facility] [address] [place] [phone] annual visit from date of surgery May/Jul 2024 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 documented as of this encounter Visit Diagnoses Diagnosis Type 2 diabetes mellitus without complication, without long-term current use of insulin (HCC) Cervicalgia documented in this encounter Additional Health Concerns Assessment Noted Time A fall risk assessment has been complete d for the patient 07/06/2023 9:36 AM EST documented as of this encounter Care Teams Ceiling Insulation Blower Relationship Specialty Start Date End Date Cheo Santoyo DO [address] [place] [phone] PCP - General Family Medicine 07/06/23 documented as of this encounter
--- OUTSIDE RECORDS SUMMARY | 2024-01-11 22:14 | XMS_ITS | Encounter Summary ---
Author Organization Jose Alejandro Raymundolinnea [facility] Address [address] [place] [address] Care Team Providers Care Garment Mender Name Role Phone Felicitas Monaco MD Primary Care Provider [phone] Reason for Referral * Imaging (Routine) - Open Specialty Diagnoses / Procedures [facility] Referred To Contact Radiology Diagnoses Carcinoma of ascending colon (HCC) Adenocarcinoma of cecum (HCC) Malignant neoplasm of intestine (HCC) Procedures CT ABDOMEN PELVIS W IV CONTRAST Additional Contrast? None Georgi Butterfield MD [address] [place] [address] Referral ID Status Reason Start Date Expiration Date Visits Re quested Visits Authorized [id number] Open 04/07/2023 04/06/2024 1 1 * Imaging (Routine) - Open Specialty Diagnoses / Procedures [facility] Referred To Contact Radiology Diagnoses Carcinoma of ascending colon (HCC) Adenocarcinoma of cecum (HCC) Malignant neoplasm of intestine (HCC) Procedures CT CHEST W CONTRAST Georgi Butterfield MD [address] [place] [address] Referral ID Status Reason Start Date Expiration Date Visits Re quested Visits Authorized [id number] Open 04/07/2023 04/06/2024 1 1 Reason for Visit * Imaging (Routine) - Open Specialty Diagnoses / Procedures Referred By Rachid t Referred To Contact Radiology Diagnoses Carcinoma of ascending colon (HCC) Adenocarcinoma of cecum (HCC) Malignant neoplasm of intestine (HCC) Procedures CT ABDOMEN PELVIS W IV CONTRAST Additional Contrast? None Georgi Butterfield MD 3510 [facility] [address] [facility] [address] [place] [address] Referral ID Status Reason Start Date Expiration Date Visits Re quested Visits Authorized [id number] Open 04/07/2023 04/06/2024 1 1 Encounter Details Date Type Department Care Team (Latest Contact Info) Description 04/07/2023 10:04 AM EST - 04/07/2023 11:59 PM EST Hospital Encounter [facility] [address] [place] [address] Georgi Butterfield MD [address] [place] [address] Carcinoma of ascending colon (HCC); Adenocarcinoma of cecum (HCC); Malignant neoplasm of intestine (HCC) Discharge Disposition: Home or Self Care Social [...] End Date acetaminophen (TYLENOL) 500 MG tablet Take 2 tablets by mouth in the morning and 2 tablets at noon and 2 tablets in the evening. 180 tablet 03/17/2023 07/06/2023 aspirin 81 MG EC tabletIndications:D eep Vein Thrombosis Prophylaxis Take 1 tablet by mouth 2 times daily Indications: Treatment to Prevent Deep Vein Thrombosis 60 tablet 03/18/2023 07/06/2023 celecoxib (CELEBREX) 200 MG capsule Take 1 capsule by mouth daily for 30 doses 30 capsule 03/18/2023 06/04/2023 atorvastatin (LIPITOR) 40 MG tablet 1 tablet Orally Once a day for 30 day(s) 90 tablet 1 02/15/2023 05/26/2023 pantoprazole (PROTONIX) 40 MG tablet 1 tablet Orally Once a day for 30 day(s) 90 tablet 1 02/15/2023 05/26/2023 empagliflozin (JARDIANCE) 25 MG tablet Orally 90 tablet 1 02/15/2023 05/26/2023 metFORMIN (GLUCOPHAGE) 1000 MG tablet 1 tablet with a meal Orally bid 180 tablet 1 02/15/2023 05/26/2023 dulaglutide (TRULICITY) 1.5 MG/0.5ML SC injection 0.5 mLs 12 Adjustable Dose Pre-filled Pen Syringe 1 02/15/2023 05/26/2023 olmesartan (BENICAR) 20 MG tablet Take 1 tablet by mouth daily 1/2 tablet daily 90 tablet 1 02/15/2023 05/26/2023 cyclobenzaprine (FLEXERIL) 10 MG tablet Take 0.5 tablets by mouth 3 times daily as needed for Muscle spasms 30 tablet 01/29/2023 07/06/2023 Ondansetron HCl (ZOFRAN PO) Take 1 tablet by mouth every 8 hours as needed prn 07/06/2023 tadalafil (CIALIS) 20 MG tablet Take 1 tablet by mouth as needed for Erectile Dysfunction 06/11/2020 07/06/2023 documented as of this encounter Plan of Treatment Upcoming Encounters Date Type Department Care Team (Late st Contact Info) Description 03/24/2024 9:00 AM EDT Office Visit Neurology - [facility] [address] [facility] [address] [place] [phone] Martell Calderon MD 2[address] [facility] [address] [place] [address] TREMORS/ MEDICARE, FOR LIFE 03/28/2024 8:30 AM EDT Office Visit Primary Care - [facility] [address] [place] [phone] Cheo Santoyo DO [address] [place] [address] AWV 04/06/2024 9:45 AM EST Lab [facility] - [facility] [address] [facility] [address] [place] [address] CBCMP,CEA,FEST 04/06/2024 10:15 AM EST Office Visit [facility] - [facility] [address] [facility] [address] [place] [address] Georgi Butterfield MD 3510 [facility] [address] [place] [address] 6 MTH FU W/LABS, REV SCAN 04/13/2024 9:30 AM EST Office Visit Surgical Oncology - [facility] [address] [facility] [address] [place] [address] Delvis Cheek MD 125 [facility] [address] [place] [address] 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 06/19/2024 10:30 AM EST Office Visit Orthopaedics- Les Valencia [address] [facility] [address] [place] [address] Karly Bautista W, BURT [address] [place] [address] annual visit from date of surgery May/Jul 2024 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 documented as of this encounter Procedures Procedure Name Priority Date/Time Associated Diagnosis Comments CT ABDOMEN PELVIS W IV CONTRAST Routine 04/07/2023 10:29 AM EST Carcinoma of ascending colon (HCC) Adenocarcinoma of cecum (HCC) Malignant neoplasm of intestine (HCC) CT CHEST W CONTRAST Routine 04/07/2023 1 0:29 AM EST Carcinoma of ascending colon (HCC) Adenocarcinoma of cecum (HCC) Malignant neoplasm of intestine (HCC) documented in this encounter Results * CT ABDOMEN PELVIS W IV CONTRAST [...] recurrent or metastatic disease. Georgi Butterfield MD [facility] ORDERABLES * CT CHEST W CONTRAST (04/07/2023 10:29 AM EST) Anatomical Region Laterality Modality Chest Computed Tomogra phy 04/07/2023 11:3 6 AM EST Impressions 04/07/2023 [...] recurrent or metastatic disease. Georgi Butterfield MD IMG CT ORDERABLES documented in this encounter Visit Diagnoses Diagnosis Carcinoma of ascending colon (HCC) Malignant neoplasm of ascending colon Adenocarcinoma of cecum (HCC) Malignant neoplasm of intestine (HCC) Malignant neoplasm of intestinal tract, part unspecified documented in this encounter Administered Medications Inactive Administered Medications - up to 3 most recent administrations Medication Order MAR Action Action Date Dose Rate Site iopamidol (ISOVUE-300) 61 % injection 100 mL 100 mL, IntraVENous, IMG ONCE PRN, 1 dose, Starting on Wed04/07/23 at 1028, Until Wed04/07/23 at 1026, Other Given 04/07/2023 10:26 AM EST 100 mLs documented in this encounter Additional Health Concerns Assessment Noted Time A fall risk assessment has been complete d for the patient 02/26/2023 9:45 AM EDT documented as of this encounter Care Teams Garment Mender Relationship Specialty Start Date End Date Felicitas Monaco MD PCP - General Family Medicine 06/18/22 07/05/23 documented as of this encounter
--- OUTSIDE RECORDS SUMMARY | 2024-01-11 22:14 | XMS_ITS | Encounter Summary ---
Author Organization Jose Alejandro Kit [facility] Address [address] [place] [address] Care Team Providers Care Room Service Food Server Name Role Phone Yarelis Cheo Moshe REYES Primary Care Provider [phone] Reason for Visit * Auth/Cert (Routine) Specialty Diagnoses / Procedures Referred By Rachid t Referred To Contact Diagnoses Right hip pain Right hip pain [M25.551] Procedures ID ARTHROCENTESIS ASPIR&/INJ MAJOR JT/BURSA W/O US [place]TRA [place] [address] [place] [address] [address] Referral ID Status Reason Start Date Expiration Date Visits Re quested Visits Authorized [id number] 1 1 Encounter Details Date Type Department Care Team (Late st Contact Info) Description 08/04/2023 10:30 AM EST - 08/04/2023 10:45 AM EST Surgery [facility] PAIN MGMT OR [address] [place] [address] Martinez Guthrie MD [address] [address] INTRA ARTICULAR HIP BILATERAL NO PA REQ Surgery Details Date/Time Status Location OR Service Patient Class Case Class Case Type Trauma Case? 08/04/2023 10:30 AM Posted [facility] PAIN MANAGEMENT R[facility] PAIN 01 Pain Management Outpatient Surgery Elective No Panel 1 Procedure LRB Anes Op Region Wound Class Comments INTRA ARTICULAR HIP BILATERA L NO PA REQ Bilateral None Class I Clean Surgeon Surgeon Role Service Panel Martinez Guthrie MD Primary Pain Management 1 documented in this encounter Social History Tobacco [...] Sign Reading Time Taken Comments Blood Pressure 128/96 08/04/2023 10:35 AM EST Pulse 83 08/04/2023 10:35 AM EST Temperature - - Respiratory Rate 16 08/04/2023 10:35 AM EST Oxygen Saturation 96% 08/04/2023 10:35 AM EST Inhaled Oxygen Concentration - - Weight - - Height - - Body Mass Index - - documented in this encounter Discharge Instructions * Discharge Instructions* Kayley Valderrama RN - 08/04/2023 9:36 AM EST The following post procedural instructions are for therapeutic injections such as: epidural steroidinjections, facet injections, radiofrequency procedures and other pain management injections. You may experience the following symptoms following your specific procedure: Increased pain for a few days, which is probably due to the added pressure and irritation from the medication used in an already inflamed or irritated area. Occasional bruising or muscle spasm related to the procedure. If steroid medication was used during the injection, it may take one to seven days to begin workingto relieve inflammation and swelling in your back or neck. The Lidocaine and/or Marcaine used as a numbing agent will usually wear off within 30 minutes to 6 hours Diet & Activity: - Return to your regular diet. - DO NOT drive a car ir operate machinery for the rest of the day. - You may apply a covered ice pack to the injection site, if needed-limit to 10 minutes on, followed by 10 minutes off. No heat pad/heat compress/hot pack to site for 3 days. - Keep activity to minimum for the rest of the day. Medicines: - Continue home medications. - If any of your regular medicines were stopped for this procedure, start taking them again tomorrow. (Blood thinners, motrin, aleve, aspirin ) Injection Site Care: - Remove Band-Aid/Dressing in 24 hours and resume your normal hygiene routine tomorrow. - Call your doctor if you experience excessive bleeding or drainage from injection site or if you have any signs/symptoms of infection such as pain and redness, swelling or odor at the site Contact your physician immediately: -Fever greater than 101 degrees F -Increasing weakness or numbness in extremity ir change in bowel and/or bladder function. -Severe persistent headache -Contact your physician if any problems occur or if questions arise after your departure from our facility Call Dr. Guthrie Only if needed at IN THE CASE OF AN EMERGENCY- DIAL 911 * Attachments The following attachments cannot be sent through Care Everywhere. * Bursa Injection: Trochanteric: General Info (Faroese) * RICE: General Info (Faroese) documented in this encounter Medications at Time of Discharge Medication Sig Dispensed Refills Start Date End Date empagliflozin (JARDIANCE) 25 MG tablet 1 tablet [...] for Nausea prn 90 tablet 3 07/06/2023 amoxicillin (AMOXIL) 500 MG capsule Take 4 capsules by mouth 04/16/2023 10/12/2023 pantoprazole (PROTONIX) 40 MG tabletIndications:Ba rrett's esophagus with dysplasia 1 tablet Orally Once a day for 30 day(s) 90 tablet 3 07/06/2023 11/30/2023 dulaglutide (TRULICITY) 1.5 MG/0.5ML SC injection Inject 0.5 mLs into the skin once a week EVERY WEDNESDAY 12 Adjustable Dose Pre-filled Pen Syringe 5 07/06/2023 09/02/2023 acetaminophen (TYLENOL) 500 MG tablet Take 1 tablet by mouth in the morning and 1 tablet at noon and 1 tablet in the evening. 90 tablet 07/06/2023 10/19/2023 aspirin 81 MG EC tabletIndications:De ep Vein Thrombosis Prophylaxis Take 1 tablet by mouth daily Indications: Treatment to Prevent Deep Vein Thrombosis 30 tablet 07/06/2023 10/19/2023 celecoxib (CELEBREX) 200 MG capsuleIndications:P resence of artificial knee joint, right Take 1 capsule by mouth daily Take with food 30 capsule 1 06/04/2023 08/20/2023 documented as of this encounter Plan of Treatment Upcoming Encounters Date Type Department Care Team (Late st Contact Info) Description 03/24/2024 9:00 AM EDT Office Visit Neurology - Maryan Jacobsen Dr. [address] [place] [address] Martell Calderon MD 2[address] [facility] [address] [place] [address] TREMORS/ MEDICARE, FOR LIFE 03/28/2024 8:30 AM EDT Office Visit Primary Care - [facility] [address] [place] [address] Cheo Santoyo, DO [address] [place] [address] AWV 04/06/2024 9:45 AM EST Lab [facility] - [facility] [address] [facility] [address] [place] [address] CBCMP,CEA,FEST 04/06/2024 10:15 AM EST Office Visit [facility] - [facility] [address] [facility] [address] [place] [address] Georgi Butterfield MD 3510 [facility] [address] [place] [address] 6 MTH FU W/LABS, REV SCAN 04/13/2024 9:30 AM EST Office Visit Surgical Oncology - [facility] 2084 [facility] [address] [place] [address] Delvis Cheek MD 125 [facility] [address] [place] [address] 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 documented as of this encounter Procedures Procedure Name Priority Date/Time Associated Diagnosis Comments ID ARTHROCENTESIS ASPIR&/INJ MAJOR JT/BURSA W/O US 08/04/2023 10:14 AM EST Right hip pain documented in this encounter Visit Diagnoses Diagnosis Right hip pain Pain in joint, pelvic region and thigh documented in this encounter Administered Medications Inactive Administered Medications - up to 3 most recent administrations Medication Order MAR Action Action Date Dose Rate Site BUPivacaine (PF) (MARCAINE) 0.25 % injection PRN, Starting on Wed08/04/23 at 1018, Until Wed08/04/23 at 1021, Intra-op Given 08/04/2023 10:18 AM EST 10 mLs Hips Bilateral methylPREDNISolone acetate (DEPO-MEDROL) injection PRN, Starting on Wed08/04/23 at 1019, Until Wed08/04/23 at 1021, Intra-op Given 08/04/2023 10:19 AM EST 40 mg Hips Bilateral methylPREDNISolone acetate (DEPO-MEDROL) injection PRN, Starting on Wed08/04/23 at 1019, Until Wed08/04/23 at 1021, Intra-op Given 08/04/2023 10:19 AM EST 80 mg Hips Bilateral documented in this encounter Active and Recently Administered Medications Times are shown in EST. PRN Medication Order 08/02/2023 08/03/2023 08/04/2023 BUPivacaine (PF) (MARCAINE) 0.25 % injection (CANCELED) PRN, Starting on Wed08/04/23 at 1018, Until Wed08/04/23 at 1021, Intra-op 1018 (Given - Provid er: Martinez Guthrie MD) methylPREDNISolone acetate (DEPO-MEDROL) injection (CANCELED) PRN, Starting on Wed08/04/23 at 1019, Until Wed08/04/23 at 1021, Intra-op 1019 (Given - Provid er: Martinez Guthrie MD - Comment: BILATERAL HIPS) methylPREDNISolone acetate (DEPO-MEDROL) injection (CANCELED) PRN, Starting on Wed08/04/23 at 1019, Until Wed08/04/23 at 1021, Intra-op 1019 (Given - Provid er: Martinez Guthrie MD) documented in this encounter Additional Health Concerns Assessment Noted Time A fall risk assessment has been complete d for the patient 07/06/2023 9:36 AM EST documented as of this encounter Care Teams Room Service Food Server Relationship Specialty Start Date End Date Cheo Santoyo DO [address] [place] [address] PCP - General Family Medicine 07/06/23 documented as of this encounter
--- OUTSIDE RECORDS SUMMARY | 2024-01-11 22:14 | XMS_ITS | Encounter Summary ---
Author Organization Jose Alejandro Pantoja [facility] Address [address] [place] [address] Care Team Providers Care Manager Of Compensation Name Role Phone Felicitas Monaco MD Primary Care Provider [phone] Reason for Visit * Reason Comments Follow-up R TKA; 6 WK F/U Encounter Details Date Type Department Care Team (Late st Contact Info) Description 06/04/2023 3:00 PM EST Office Visit Orthopaedics - Maryan Jacobsen Dr. [address] [place] [phone] Bridgett Zuniga, TAPERING MACHINE OPERATOR - AGRICULTURAL INSPECTOR Presence of artificial knee joint, right (Primary [...] as of this encounter Progress Notes * Bridgett Zuniga, TAPERING MACHINE OPERATOR - AGRICULTURAL INSPECTOR - 06/04/2023 2:48 PM EST Images from the original note were not included. Date: 06/04/2023 Patient Name: Martínez Toribio : 1955 Primary Care Provider: Felicitas Monaco MD Reason for Visit: Follow-up (R TKA; 6 WK F/U) History of Present Illness: 68 y.o. male presents with Chief Complaint Patient presents with Follow-up R TKA; 6 WK F/U . Date of Surgery 03/17/23 Procedure: right TKA Patient feels fine Pain level: mild, moderate Pain med working satisfactorily: Yes Incision: fine Assistive device: None ROM: fine Other: takes tylenol before bed, but pain continues to wake him up at night; states that it sometimes feels as if something catches within his knee during the night; sleeps on side and has found itdifficult to find a comfortable position; asking when he can get back on his knees -- would like tostart camping again Patient is 11 weeks status post right total knee arthroplasty. He continues to work with outpatientphysical therapy and states he is getting 117 degrees of flexion. He still has some pain and catching in his knees when he is sleeping on his sides at night. He has tried using a pillow or a blanket without much improvement. He ambulates without any assistive device. Physical Examination: General: no acute distress Vascular: neurovascularly intact, no sign of DVT/VTE Psych: alert, oriented; mood and affect appropriate Musculoskeletal: Right Knee Alignment: Normal Gait: Typical for this stage Skin: Normal with no rashes or lesions Incision: Incision looks good Effusion: Small Palpation: Normal, extensor mechanism intact ROM: Painless ROM extension: 0 degrees ROM flexion: 115 degrees Stability: Normal Strength: Typical for this stage Left Knee Alignment: Normal Skin: Normal with no rashes or lesions Incision: Incision looks good Effusion: None Palpation: Normal, extensor mechanism intact, crepitus lateral knee ROM: Painless ROM extension: 0 degrees ROM flexion: 115 degrees Stability: Normal Strength: Typical for this stage Assessment/Plan Status post right 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 We will prescribe additional celebrex and he will use as needed. Advised not to use ear pull machine operator due to Ryan's esophagus. Patient will monitor for GI irritation and stop if this occurs. We have discussed that he may have increased pain with kneeling may need to use a pillow or a foam mat for protection. He may start trying to kneel around 3 months -Patient may continue to increase all activities as tolerated -Anticoagulation: May discontinue aspirin therapy at this time for DVT prophylaxis and return to all preoperative medications and/or supplements -We had a discussion including expectations and guidelines for recovery and care including antibiotic prophylaxis for lifetime including for dental procedures -Return to work: Not applicable New Prescriptions CELECOXIB (CELEBREX) 200 MG CAPSULE Take 1 capsule by mouth daily Take with food Follow-up: As needed documented in this encounter Plan of Treatment Upcoming Encounters Date Type Department Care Team (Late st Contact Info) Description 03/24/2024 9:00 AM EDT Office Visit Neurology - Maryan Jacobsen Dr. [address] [place] [address] Martell Calderon MD 214 [facility] [address] [place] [address] TREMORS/ MEDICARE, FOR LIFE 03/28/2024 8:30 AM EDT Office Visit Primary Care - [address] [address] Cheo Santoyo DO [address] [place] [address] AWV 04/06/2024 9:45 AM EST Lab [facility] - Mayran [address]sen Dr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 documented as of this encounter Visit Diagnoses Diagnosis Presence of artificial knee joint, right- Primary documented in this encounter Additional Health Concerns Assessment Noted Time A fall risk assessment has been complete d for the patient 02/26/2023 9:45 AM EDT documented as of this encounter Care Teams Manager Of Compensation Relationship Specialty Start Date End Date Felicitas Monaco MD PCP - General Family Medicine 06/18/22 07/05/23 documented as of this encounter
--- OUTSIDE RECORDS SUMMARY | 2024-01-11 22:14 | XMS_ITS | Encounter Summary ---
Author Organization Jose Alejandro Pantoja [facility] Address [address] [place] [address] Care Team Providers Care Electronic Development Technician Name Role Phone Cheo Santoyo DO Primary Care Provider [phone] Encounter Details Date Type Department Care Team ([facility] st Contact Info) Description 07/21/2023 Abstract Primary Care - [address] [address] Cheo Santoyo DO [address] [place] [address] Social History Tobacco Use Types Packs/Day [...] Upcoming Encounters Date Type Department Care Team ([facility] st Contact Info) Description 03/24/2024 9:00 AM EDT Office Visit Neurology - [facility] [address] [facility] [address] [place] [address] Martell Calderon MD 2144 [facility] [address] [place] [address] TREMORS/ MEDICARE, FOR LIFE 03/28/2024 8:30 AM EDT Office Visit Primary Care - [address] [phone] Cheo Santoyo [address] [address] AWV 04/06/2024 9:45 AM EST Lab [facility] - [facility] 20[address] [facility] [address] [place] [address] CBCMP,CEA,FEST 04/06/2024 10:15 AM EST Office [facility] - [facility] 20[address] [facility] [address] [place] [address] Georgi Butterfield MD 3510 [facility] [address] [place], [place] [phone] 6 MTH FU W/LABS, REV SCAN 04/13/2024 9:30 AM EST Office Visit Surgical Oncology - [facility] [address] [facility] [address] [place] [address] Delvis Cheek MD 125 [facility] 660 [place] [address] 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 documented as of this encounter Visit Diagnoses Not on filedocumented in this encounter Additional Health Concerns Assessment Noted Time A fall risk assessment has been complete d for the patient 07/06/2023 9:36 AM EST documented as of this encounter Care Teams Electronic Development Technician Relationship Specialty Start Date End Date Cheo Santoyo DO [address] [place] [phone] PCP - General Family Medicine 07/06/23 documented as of this encounter
--- OUTSIDE RECORDS SUMMARY | 2024-01-11 22:14 | XMS_ITS | Encounter Summary ---
Author Organization Jose Alejandro Kit [facility] Address [address] [email or web address] [address] Care Team Providers Care Lightning Protection Installer Name Role Phone Yarelis Cheo Moshe REYES Primary Care Provider [phone] Reason for Visit * Auth/Cert (Routine) Specialty Diagnoses / Procedures Referred By Rachid t Referred To Contact Diagnoses Right hip pain Right hip pain [M25.551] Procedures WI ARTHROCENTESIS ASPIR&/INJ MAJOR JT/BURSA W/O US INTRA [place] [address] [place] [address] [address] Referral ID Status Reason Start Date Expiration Date Visits Re quested Visits Authorized [id number] 1 1 Encounter Details Date Type Department Care Team (Late st Contact Info) Description 08/04/2023 9:28 AM EST - 08/04/2023 10:37 AM EST Hospital Encounter [facility] PAIN MGMT OR [address] [place] [address] Martinez Guthrie MD [address] [place] [phone] Discharge Disposition: Home or Self Care Social [...] Everywhere. * Bursa Injection: Trochanteric: General Info (Swiss) * RICE: General Info (Swiss) documented in this encounter Medications at Time [...] Office Visit Neurology - Maryan Jacobsen Dr. [address] [place] [address] Martell Calderon MD 2143 [facility] [address] [place] [address] TREMORS/ MEDICARE, FOR LIFE 03/28/2024 8:30 AM EDT Office Visit Primary Care - [address] [place] [address] Cheo Santoyo, [address] [place] [address] AWV 04/06/2024 9:45 AM EST Lab [facility] - [facility] [address] [facility] [address] [place] [address] CBCMP,CEA,FEST 04/06/2024 10:15 AM EST Office Visit [facility] - [facility] [address] [facility] [address] [place] [address] Georgi Butterfield MD [address] [place] [address] 6 MTH FU W/LABS, REV SCAN 04/13/2024 9:30 AM EST Office Visit Surgical Oncology - [facility] 20[address] [facility] [address] [place] [address] Delvis Cheek MD 125 [facility] [address] [place] [phone] 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 documented as of this encounter Procedures Procedure Name Priority Date/Time Associated Diagnosis Comments WI ARTHROCENTESIS ASPIR&/INJ MAJOR JT/BURSA W/O US 08/04/2023 10:14 AM EST Right hip pain documented in this encounter Visit Diagnoses Not on filedocumented in this encounter Active and Recently Administered [...] documented as of this encounter Care Teams Lightning Protection Installer Relationship Specialty Start Date End Date Cheo Santoyo DO [address] [place] [phone] PCP - General Family Medicine 07/06/23 documented as of this encounter
--- OUTSIDE RECORDS SUMMARY | 2024-01-11 22:14 | XMS_ITS | Encounter Summary ---
Author Organization [facility] Address [address] [place] [address] Care Team Providers Care Nsh Teacher Name Role Phone Felicitas Monaco MD Primary Care Provider [phone] Reason for Referral * Eval and Treat (Routine) - Open Specialty Diagnoses / Procedures Referred By Rachid jimenez Referred To Contact Family Medicine / Primary Care Diagnoses Iron deficiency anemia, unspecified iron deficiency anemia type Carcinoma of ascending colon (HCC) Georgi Butterfield MD [address] [place] [address] Cheo Santoyo DO [address] [place] [phone] Referral ID Status Reason Start Date Expiration Date V isits Requested Visits Authorized [id number] Open Specialty Services Required 04/08/2023 04/07/2024 1 1 Scheduling Instructions Cheo Santoyo DO, Primary Care - [address] [address] Question Answer My clinical question is: essablish care Comments The patient can be scheduled with any member of the group, including the provider with the first available appointments. Reason for Visit * Reason Comments Follow-up Encounter Details Date Type Department Care Team ([facility] Contact Info) Description 04/08/2023 9:30 AM EST Office Visit [facility] Hematology & Oncology - [facility] [address] [place] [address] Georgi Butterfield MD [address] [facility] [address] [place] [address] Iron deficiency anemia, unspecified iron deficiency anemia type; Carcinoma of ascending colon (HCC) Social History [...] Sign Reading Time Taken Comments Blood Pressure 102/70 04/08/2023 8:59 AM EST Pulse 87 04/08/2023 8:59 AM EST Temperature 36.5 ??C (97.7 ??F) 04/08/2023 8:59 AM ES T Respiratory Rate 16 04/08/2023 8:59 AM EST Oxygen Saturation 97% 04/08/2023 8:59 AM EST Inhaled Oxygen Concentration - - Weight 94.8 kg (209 lb) 04/08/2023 8:59 AM EST Height 175.3 cm (5' 9) 04/08/2023 8:59 AM EST Body Mass Index 30.86 04/08/2023 8:59 AM EST documented in this encounter Progress Notes * Georgi Butterfield MD - 04/12/2023 12:36 PM EST Images from the original note were not included. [facility] HEMATOLOGY & ONCOLOGY MD Rosalino Ponce MD Ryan A. Kalinsky, MD Mark T. Burbridge, DO Jenny Riley, MD Margaret Brady, MD Caitlin Mengler, [facility]- Marcela Jackman, CHARGER OPERATOR-CHICKEN FANCIER Gisselle Padilla, TIGIST [email or web address] Hematology/Medical Oncology Patient Name: Martínez Toribio Date of : 1955 (68 y.o.) Date of Visit: 04/08/2023 PHYSICIANS: PCP: Felicitas Monaco MD Involved Physician(s): Nik Sagastume MD; Delvis Mohamud [...] 8 cycles as of 03/03/2021. CURRENT TREATMENT: Surveillance with appropriate imaging. INTERVAL HISTORY: The patient is a very pleasant 68-year-old male who states he has been doing well since last encounter. He was able to go through bilateral knee surgery, having his left knee operated on november and right knee in February. He is just now 3 weeks postop and appears to be doing well in regards to mobility but still having difficulty with range of motion exercises. Otherwise, he has been doing well. He had a recent CT imaging and here to followup on those results. He is uncertain when his next colonoscopy may be due. He is uncertain whether he is behind or on schedule. Otherwise, he voices no additional concerns and is here for a followup evaluation. Past Medical History: Diagnosis Date Ryan's esophagus Cancer (HCC) 2020 Colon Chronic back pain Diabetes (HCC) DJD (degenerative joint disease) GERD (gastroesophageal reflux disease) Hip pain HTN (hypertension) Hyperlipidemia Left bundle branch block (LBBB) no longer sees international student counselor, states stress and testing was completed and international student counselor signed off PONV (postoperative nausea and vomiting) Post-operative nausea and vomiting AND STATES BODY TEMP DROPPED TO 94 DEGREES F Sleep apnea MILD AND DOES NOT USE CPAP Spinal stenosis Past Surgical History: Procedure Laterality Date BACK SURGERY 02/05/1986 laminectomy, discectomy CERVICAL DISCECTOMY 04/18/2007 , cervical fusion 2012 COLONOSCOPY MULTIPLE HAND CARPECTOMY Left 2021 HAND SURGERY Right 2001 debby luanr repair HEMICOLECTOMY 2020 HIP SURGERY Right 06/18/2022 INTRA ARTICULAR HIP RIGHT [facility] JOINT REPLACEMENT Right 2011 shoulder KIDNEY STONE SURGERY 2009 basket removal KNEE ARTHROSCOPY Left 10/13/2021 multiple knee scopes right and left 1997 thru 2021 SHOULDER SURGERY Right 2010 2011 right hemiarthroplasty SUBTOTAL COLECTOMY 2020 R. Hemicolectomy TOTAL KNEE ARTHROPLASTY Left 12/21/2022 LEFT TOTAL KNEE ARTHROPLASTY, ROBOTIC performed by Maurice Panchal MD at [facility] MAIN OR TOTAL KNEE ARTHROPLASTY Right 03/17/2023 RIGHT TOTAL KNEE ARTHROPLASTY, ROBOTIC performed by Maurice Panchal MD at [facility] MAIN OR UPPER GASTROINTESTINAL ENDOSCOPY 2019 Family History Problem Relation Age of Onset Diabetes Maternal Grandmother Social History Tobacco Use Smoking Status Former Packs/day: 1.00 Years: 27.00 Additional pack years: 0.00 Total pack years: 27.00 Types: Cigarettes Start date: 05/31/1969 Quit date: 05/31/1996 Years since quittin.8 Smokeless Tobacco Never Social History Substance and Sexual Activity Alcohol Use Yes Alcohol/week: 4.0 - 5.0 standard drinks of alcohol Types: 4 - 5 Glasses of wine per week Social History Substance and Sexual Activity Drug Use Never Medications: has a current medication list which includes the following prescription(s): acetaminophen, aspirin,celecoxib, atorvastatin, pantoprazole, empagliflozin, metformin, dulaglutide, olmesartan, cyclobenzaprine, ondansetron hcl, and tadalafil. Allergies: Allergies Allergen Reactions Morphine Itching and Nausea And Vomiting Other reaction(s): migraines, hallucinations, itching Other reaction(s): Hallucinations, HALLUCINATIONS, ITCH, Other (See Comments) Event: hallucinations Migraines REVIEW OF SYSTEMS: 12 point ROS was performed and pertinent positives and negatives were placed in the interval history. PHYSICAL EXAM: ECOG performance status: 0. Vitals: 04/08/23 0859 BP: 102/70 Pulse: 87 Resp: 16 Temp: 97.7 ??F (36.5 ??C) SpO2: 97% Weight: 94.8 kg (209 lb) Height: 1.753 m (5' 9) Incision of the anterior knee with surgical Steri-Strips placed in the right knee but no erythema, induration, or additional concerns. GEN: No apparent distress, sitting comfortably. EYES: [...] LABS: Lab Results Component Value Date/Time WBC 7.1 04/08/2023 08:58 AM WBC 6.6 03/04/2023 01:05 PM HGB 16.0 04/08/2023 08:58 AM HCT 48.8 04/08/2023 08:58 AM PLT 452 04/08/2023 08:58 AM PLT 299 03/04/2023 01:05 PM MCV 96.2 04/08/2023 08:58 AM Lab Results Component Value Date/Time NA 140 04/08/2023 08:58 AM K 4.9 04/08/2023 08:58 AM CL 104 04/08/2023 08:58 AM CO2 25 04/08/2023 08:58 AM BUN 17 04/08/2023 08:58 AM GFRAA 82 (L) 07/19/2020 04:57 AM [facility] testing from January,.. 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 We will continue with [facility] testing on a q. 3 month interval schedule. Fatigue: Patient is doing well with energy, strength, and stamina. Plaque formation of the coronary arteries: I do not feel this is of concern as he has had recent stress test, likely age appropriate. Disposition: Plan for a followup in 3 months. Continue with [facility] testing and I will make sure that he is up to date with his colonoscopies with Dr. Sagastume. Georgi Butterfield MD Hematology/Medical Oncology * Skylar Villagomez MA - 04/08/2023 9:23 AM EST Labs today-cbc,cmp,fest,cea -and on follow up Ct reviewed today Last iv iron 04/20/22 No complaints today Continue monitoring labs Had knees replaced 03/17/23 Referral placed to [facility]/lab-6 months documented in this encounter Plan of Treatment Upcoming Encounters Date Type Department Care Team (Late st Contact Info) Description 03/24/2024 9:00 AM EDT Office Visit Neurology - [address] [place] [address] Martell Calderon MD [address] [facility] [address] [place] [address] TREMORS/ MEDICARE, FOR LIFE 03/28/2024 8:30 AM EDT Office Visit Primary Care - [address] [address] Cheo Santoyo DO [address] [place] [phone] AWV 04/06/2024 9:45 AM EST Lab [place] [facility] - [facility] [address] [facility] [address] [place] [phone] CBCMP,CEA,FEST 04/06/2024 10:15 AM EST Office Visit [place] [facility] - [facility] [address] [facility] [address] [place] [phone] Georgi Butterfield MD [address] [facility] [address] [place] [address] 6 MTH FU W/LABS, REV SCAN 04/13/2024 9:30 AM EST Office Visit Surgical Oncology - [facility] [address] [facility] [address] [place] [phone] Delvis Cheek MD [address] [facility] [address] [place] [address] 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 06/19/2024 10:30 AM EST Office Visit Orthopaedics- Les Valencia [address] [facility] [address] [place] [phone] Karly Bautista PA [address] [facility] [address] [place] [address] annual visit from date of surgery May/Jul 2024 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 Scheduled Referrals Name Type Priority Associated Diagnoses Orde r Schedule RSF[facility] - Cheo Santoyo DO, Primary Care - [facility] Outpatient Referral Routine Iron deficiency anemia, unspecified iron deficiency anemia type Carcinoma of ascending colon (HCC) Ordered: 04/08/2023 documented as of this encounter Procedures Procedure Name Priority Date/Time Associated Diagnosis Comments CEA (SERIAL MONITOR) Routine 04/08/2023 8:58 AM EST Iron deficiency anemia, unspecified iron deficiency anemia type Carcinoma of ascending colon (HCC) SOLUBLE TRANSFERRIN RECEPTOR Routine 04/08/2023 8:58 AM EST Iron deficiency anemia, unspecified iron deficiency anemia type Carcinoma of ascending colon (HCC) CBC WITH AUTO DIFFERENTIAL Routine 04/08/2023 8:58 AM EST Iron deficiency anemia, unspecified iron deficiency anemia type Carcinoma of ascending colon (HCC) IRON AND TIBC Routine 04/08/2023 8:58 AM EST Iron deficiency anemia, unspecified iron deficiency anemia type Carcinoma of ascending colon (HCC) RETICULOCYTES Routine 04/08/2023 8:58 AM EST Iron deficiency anemia, unspecified iron deficiency anemia type Carcinoma of ascending colon (HCC) FOLATE Routine 04/08/2023 8:58 AM EST Iron deficiency anemia, unspecified iron deficiency anemia type Carcinoma of ascending colon (HCC) FERRITIN Routine 04/08/2023 8:58 AM EST Iron deficiency anemia, unspecified iron deficiency anemia type Carcinoma of ascending colon (HCC) VITAMIN B12 Routine 04/08/2023 8:58 AM EST Iron deficiency anemia, unspecified iron deficiency anemia type Carcinoma of ascending colon (HCC) COMPREHENSIVE METABOLIC PANEL Routine 04/08/2023 8:58 AM EST Iron deficiency anemia, unspecified iron deficiency anemia type Carcinoma of ascending colon (HCC) documented in this encounter Results * Folate (04/08/2023 8:58 AM EST) Folate 13.39 4.80 - 24.20 ng/mL [facility] Comment: Test Performed at: [facility] [address] [facility] [place] [address] Blood BLOOD SPECIMEN / Unknown 04/08/2023 8:58 AM EST 04/08/2023 2:11 PM EST Georgi Butterfield MD CHEMISTRY ORDERABLE S Performing Organization Address [facility] de Phone Number [facility] [address] [place] [address] * Vitamin B12 (04/08/2023 8:58 AM EST) Pathologist [facility] Vitamin B-12 547 232 - 1245 pg/mL [facility] Comment: Effective 05/05/17 Vitamin B12 Methodology Change - Vitamin B12 Reference Range has been revised. Test Performed at: [facility] [address] [place] [address] [place] [address] Blood BLOOD SPECIMEN / Unknown 04/08/2023 8:58 AM EST 04/08/2023 2:11 PM EST Georgi Butterfield MD CHEMISTRY ORDERABLE S Performing Organization Address [facility] de Phone Number [facility] [address] [place] [address] * Soluble transferrin receptor (04/08/2023 8:58 AM EST) [facility] Soluble Transferrin Recept 20.7 12.2 - 27.3 nmol/L [facility] Comment: Performed At: [facility] [id number] Ajit Swift MD Ph:[phone] Test Performed at: [facility] [address] [place] [address] [place] [address] Blood BLOOD SPECIMEN / Unknown 04/08/2023 8:58 AM EST 04/08/2023 2:11 PM EST Georgi Butterfield MD HEMATOLOGY ORDERABL ES Performing Organization Address [facility] de Phone Number [facility] [address] [place] [address] * Reticulocytes (04/08/2023 8:58 AM EST) [facility] RBC 5.10 4.00 - 5.60 x10e6/mcL [facility] Retic Ct Pct 1.8 0.5 - 2.0 % [facility] Retic Ct Abs 0.0933 0.0235 - 0.1220 /mcL [facility] Comment: Test Performed at: [facility] [address] [facility] [place] [address] Blood BLOOD SPECIMEN / Unknown 04/08/2023 8:58 AM EST 04/08/2023 2:11 PM EST Georgi Butterfield MD HEMATOLOGY ORDERABL ES Performing Organization Address [facility] de Phone Number [facility] [address] [place] [address] * Iron and TIBC (04/08/2023 8:58 AM EST) Iron 80 59 - 158 mcg/dL [facility] UIBC 221.8 112.0 - 347.0 mcg/dL [facility] TIBC 302 250 - 450 mcg/dL [facility] Iron % Saturation 26 20 - 40 % [facility] Comment: Test Performed at: [facility] [address] [facility] [place] [address] Serum BLOOD SPECIMEN / Unknown 04/08/2023 8:58 AM EST 04/08/2023 2:11 PM EST Georgi Butterfield MD CHEMISTRY ORDERABLE S Performing Organization Address City/[facility] de Phone Number [facility] [address] [place] [address] * Ferritin (04/08/2023 8:58 AM EST) Ferritin 291.1 30.0 - 400.0 ng/mL [facility] Comment: Test Performed at: [facility] [address] [facility] [place] [address] Blood BLOOD SPECIMEN / Unknown 04/08/2023 8:58 AM EST 04/08/2023 2:11 PM EST Georgi Butterfield MD CHEMISTRY ORDERABLE S [facility] [address] [place] [address] * (ABNORMAL) CBC with Auto Differential (04/08/2023 8:58 AM EST) WBC 7.1 4.1 - 10.9 K/uL [facility] Lymphocytes Absolute 2.2 0.6 - 4.1 K/uL [facility] Absolute Mid 0.7 0.0 - 1.8 K/uL [facility] Granulocyte Absolute Count 4.3 2.0 - 7.8 K/uL [facility] Lymphocytes 30.5 10.0 - 58.5 % [facility] MID % 9.5 0.1 - 24.0 % [facility] Granulocytes % 60.0 37.0 - 92.0 % [facility] RBC 5.07 4.20 - 6.30 M/uL [facility] Hemoglobin 16.0 12.0 - 17.5 g/dL [facility] Hematocrit 48.8 37.0 - 51.0 % [facility] MCV 96.2 80.0 - 97.5 fL [facility] MCH 31.6 26.0 - 32.0 pg [facility] MCHC 32.8 31.0 - 36.0 g/dL [facility] RDW 12.5 11.5 - 14.5 % [facility] Platelets 452(H) 140 - 440 K/uL [facility] MPV 7.5 0.0 - 49.9 fL [facility] Whole Blood BLOOD SPECIMEN / Unknown 04/08/2023 8:58 AM EST 04/08/2023 8:58 AM EST Narrative [facility] - 04/08/2023 9:08 AM EST Testing Location: [address], [address], [facility] [address], Georgi Butterfield MD HEMATOLOGY ORDERABL ES [facility] HEMATOLOGY & ONCOLOGY [address] [facility] [address] [place] [address] * (ABNORMAL) Comprehensive Metabolic Panel (04/08/2023 8:58 AM EST) Sodium 140 135 - 145 mmol/L [facility] Potassium 4.9 3.5 - 5.3 mmol/L [facility] Chloride 104 98 - 107 mmol/L [facility] CO2 25 22 - 29 mmol/L [facility] Glucose 176(H) 70 - 99 mg/dL [facility] BUN 17 8 - 23 mg/dL [facility] Creatinine 1.1 0.7 - 1.3 mg/dL [facility] Anion Gap 11 2 - 17 mmol/L [facility] Osmolaliy Calculated 285 270 - 287 mOsm/kg [facility] Calcium 10.1 8.8 - 10.2 mg/dL [facility] Total Protein 7.0 6.4 - 8.3 g/dL [facility] Albumin 4.6 3.5 - 5.2 g/dL [facility] Globulin 2.5 1.9 - 4.4 g/dL [facility] Albumin/Globulin Ratio 1.86 1.00 - 2.70 [facility] Total Bilirubin 0.41 0.00 - 1.20 mg/dL [facility] Alk Phosphatase 114 40 - 130 unit/L [facility] AST 23 0 - 50 unit/L [facility] ALT 28 0 - 50 unit/L [facility] Est, Glom Filt Rate 74 >=60 mL/min/1.7 3m? [facility] Comment: VERIFIED by Discern Expert. GFR Interpretation: [...] estimating GFR in adults. Test Performed at: [facility] [address] [facility] [place] [address] Blood BLOOD SPECIMEN / Unknown 04/08/2023 8:58 AM EST 04/08/2023 2:11 PM EST Georgi Butterfield MD CHEMISTRY ORDERABLE S [facility] [address] [facility] [place] [address] * CEA (Serial Monitor) (04/08/2023 8:58 AM EST) Pathologist [facility] CEA (SERIAL MONITOR) 2.1 0.0 - 4.7 ng/mL [facility] Comment: ? Nonsmokers ?<3.9 ? Smokers ? <5.6 [facility] Electrochemiluminescence Immunoassay (ECLIA) Values obtained with different assay methods or kits cannot be used interchangeably. ??Results cannot be interpreted as absolute evidence of the presence or absence of malignant disease. Performed At: [facility] [id number] Ajit Swift MD Ph:[phone] Test Performed at: [facility] [address] [facility] [place] [address] Blood BLOOD SPECIMEN / Unknown 04/08/2023 8:58 AM EST 04/08/2023 2:11 PM EST Georgi Butterfield MD CHEMISTRY ORDERABLE S Performing Organization Address City/State/[facility] Co de Phone Number R[facility] [address] [place] [address] documented in this encounter Visit Diagnoses Diagnosis Iron deficiency anemia, unspecified iron deficiency anemia type Carcinoma of ascending colon (HCC) Malignant neoplasm of ascending colon documented in this encounter Additional Health Concerns Assessment Noted Time A fall risk assessment has been complete d for the patient 02/26/2023 9:45 AM EDT documented as of this encounter Care Teams Nsh Teacher Relationship Specialty Start Date End Date Felicitas Monaco MD PCP - General Family Medicine 06/18/22 07/05/23 documented as of this encounter
--- OUTSIDE RECORDS SUMMARY | 2024-01-11 22:14 | XMS_ITS | Encounter Summary ---
Author Organization [facility] Address [address] [place] [address] Care Team Providers Care Spiral Binder Name Role Phone Felicitas Monaco MD Primary Care Provider [phone] Encounter Details Date Type Department Care Team (Late st Contact Info) Description 04/16/2023 2:05 PM EST Ancillary Procedure Orthopaedics - Maryan [address] Dr[address] [place] [address] Social History Tobacco Use Types Packs/Day Years [...] 9:00 AM EDT Office Visit Neurology - [facility] [address] [facility] [address] [place] [address] Martell Calderon MD [address] [facility] [address] [place] [address] TREMORS/ MEDICARE, FOR LIFE 03/28/2024 8:30 AM EDT Office Visit Primary Care - [address] [address] Cheo Santoyo DO [address] [place] [phone] AWV 04/06/2024 9:45 AM EST Lab [place] [facility] - [facility] [address] [facility] [address] [place] [address] CBCMP,CEA,FEST 04/06/2024 10:15 AM EST Office Visit [place] [facility] - [facility] [address] [facility] [address] [place] [address] Georgi Butterfield MD [address] [place] [address] 6 MTH FU W/LABS, REV SCAN 04/13/2024 9:30 AM EST Office Visit Surgical Oncology - [facility] [address] [facility] [address] [place] [address] Delvis Cheek MD [address] [facility] [address] [place] [address] 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 06/19/2024 10:30 AM EST Office Visit Orthopaedics- Les Valencia [address] [facility] [address] [place] [address] Karly Bautista, BURT [address] [place] [address] annual visit from date of [...] without any issues or concerns Marquise Moses GERMAN TUTOR - CORONARY CARE UNIT NURSE IMG DIAGNOST IC IMAGING ORDERABLES documented in this encounter Visit Diagnoses Not on filedocumented in this encounter Additional Health Concerns Assessment Noted Time A fall risk assessment has been complete d for the patient 02/26/2023 9:45 AM EDT documented as of this encounter Care Teams Spiral Binder Relationship Specialty Start Date End Date Felicitas Monaco MD PCP - General Family Medicine 06/18/22 07/05/23 documented as of this encounter
--- OUTSIDE RECORDS SUMMARY | 2024-01-11 22:14 | XMS_ITS | Encounter Summary ---
Author Organization Jose Alejandro Pantoja [facility] Address [address] [place] [address] Care Team Providers Care Automobile Accessories Salesperson Name Role Phone Felicitas Monaco MD Primary Care Provider [phone] Reason for Visit * Reason Comments Follow-up Encounter Details Date Type Department Care Team (Latest Contact Info) Description 04/15/2023 9:45 AM EST Office Visit Surgical Oncology - [facility] [address] [facility] [address] [place] [address] Delvis Cheek MD [address] [place] [phone] Adenocarcinoma of cecum (HCC) (Primary Dx); Other acute gastritis with hemorrhage; Type 2 diabetes mellitus without complication, without long-term current use of insulin (HCC); Spinal stenosis of lumbar region without neurogenic claudication; Primary hypertension; Left bundle branch block; Iron deficiency anemia, unspecified iron deficiency anemia type Social History Tobacco Use Types Packs/Day Years [...] - Inhaled Oxygen Concentration - - Weight 94.8 kg (209 lb) 04/15/2023 9:22 AM EST Height - - Body Mass Index 30.86 04/08/2023 8:59 AM EST documented in this encounter Progress Notes * Delvis Cheek MD - 04/15/2023 9:45 AM EST Martínez Toribio (: 1955) is a 68 y.o. male,Established patient, here for evaluation of the following chief complaint(s): Follow-up ASSESSMENT/PLAN: 1. Adenocarcinoma of cecum (HCC) 2. Other acute gastritis with hemorrhage 3. Type 2 diabetes mellitus without complication, without long-term current use of insulin (HCC) 4. Spinal stenosis of lumbar region without neurogenic claudication 5. Primary hypertension 6. Left bundle branch block 7. Iron deficiency anemia, unspecified iron deficiency anemia type Stage II a cecal cancer. From the colon cancer perspective the patient is doing very well. He has a negative CT scan of the abdomen pelvis with no sign of recurrence of his cancer. He has a negative Signatera. And lastly hisCEA remains within normal limits and is not rising. Continue to see me on a yearly basis for a total of 5 years, but he knows to call with issues or concerns. Return in about 1 year (around 04/15/2024) for Colon cancer f/u. Medical decision making: He has multiple chronic comorbidities. Reviewed recent blood work, reviewed circulating tumor DNA results. personally interpreted results of his CT scan. Reviewed notes from Dr. Butterfield Subjective SUBJECTIVE/OBJECTIVE: HPI: 04/15/2023: Mr. 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 (Currently 2 1/2 years out from surgery) Most recent blood work is from 04/08/2023 and shows a normal CMP. Elevated random glucose of 176. Normal liver function tests. CBC with a white count of 7.1, hemoglobin of 16 and platelet count of 452slightly elevated. CEA was 2.1. His Signatera from 03/04/[address]23 was negative. Most recent CT scan of the chest abdomen and pelvis is from 04/07/2023 and shows the following: IMPRESSION: No evidence of recurrent or metastatic disease. Continues to follow with his oncologist Dr. Butterfield who saw him last week. He follows closely with his alumnae secretary Dr. Sagastume as well. Patient is asymptomatic from his GI perspective. He has lost a little bit of weight. He is not veryhopeful of continuing the weight loss now that the holidays are coming. He recently had a knee replacement and continues to have a cane for assistance but overall is doing quite well from this as well. Previous visit: 03/2022: Mr. Toribio is a pleasant 67-year-old male known to me for a PT3PN0 cecal cancer with lymphovascularinvasion. He underwent laparoscopic right hemicolectomy on 07/2020. He was on adjuvant capecitabine for 8 cycles after surgery and has been following up with Dr. Butterfield or his oncologist, he saw him on 03/23/2022. At that time he had normal white count and a normal hemoglobin of 14.6. He had had a CT scan of his chest, abdomen and pelvis on 03/19/2022 which showed no sign of recurrence in the abdomen or in the chest. His last colonoscopy with Dr. Sagastume was in 03/18/2022 and it showed postoperative changes of a right hemicolectomy and a polyp in his rectum which measured 2 mm and was removed. Although his CEA was checked at that time I do not have that resul, per patient this was within normal limits in the 2 range. He did have an upper endoscopy after being found to have low ferritin levels and was found to have erosive gastritis. The patient has been receiving iron infusions and is on double dose PPI and sucralfate. His hemoglobin and hematocrit have been within normal limits. His main symptom is feeling very tired. Last Signatera as per patient was 0 in February. Review of Systems 11 systems have been reviewed. Other than what is found on HPI they were negative. Objective Physical Exam Gen.: Alert and oriented, no acute distress, oral cavity well-hydrated, cooperative, understands present condition. Lungs: Clear to auscultation and percussion, non-labored respiration. Heart: Normal rate, regular rhythm, no murmur, gallop or edema Abdomen: Soft, non-tender, non-distended, normal bowel sounds, no masses. Incisions well-healed with no hernia palpated. An electronic signature was used to authenticate this note. --Delvis Davis MD documented in this encounter Plan of Treatment Upcoming Encounters Date Type Department Care Team (Late st Contact Info) Description 03/24/2024 9:00 AM EDT Office Visit Neurology - Maryna Flores Dr. [address] [facility] [address] [address] [place] [phone] Martell Calderon MD [address] [facility] [address] [place], [place] [phone] TREMORS/ MEDICARE, FOR LIFE 03/28/2024 8:30 AM EDT Office Visit Primary Care - [address] [phone] Cheo Santoyo DO [address] [place] [phone] AWV 04/06/2024 9:45 AM EST [facility] [address] [facility] [address] [place] [phone] CBCMP,CEA,FEST 04/06/2024 10:15 AM EST Office Visit [facility] - [facility] [address] [facility] [address] [place] [address] Georgi Butterfield MD [address] [place] [address] 6 MTH FU W/LABS, REV SCAN 04/13/2024 9:30 AM EST Office Visit Surgical Oncology - [facility] [address] [facility] [address] [place] [phone] Delvis Cheek MD 125 [facility] [address] [place] [phone] 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 [address] [place] [phone] Karly Bautista PA [address] [place] [address] annual visit from date of surgery May/Jul 2024 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 documented as of this encounter Visit Diagnoses Diagnosis Adenocarcinoma of cecum (HCC)- Primary Other acute gastritis with hemorrhage Type 2 diabetes mellitus without complication, without long-term current use of insulin (HCC) Spinal stenosis of lumbar region without neurogenic claudication Spinal stenosis, lumbar region, without neurogenic claudication Primary hypertension Unspecified essential hypertension Left bundle branch block Other left bundle branch block Iron deficiency anemia, unspecified iron deficiency anemia type documented in this encounter Additional Health Concerns Assessment Noted Time A fall risk assessment has been complete d for the patient 02/26/2023 9:45 AM EDT documented as of this encounter Care Teams Automobile Accessories Salesperson Relationship Specialty Start Date End Date Felicitas Monaco MD PCP - General Family Medicine 06/18/22 07/05/23 documented as of this encounter
--- OUTSIDE RECORDS SUMMARY | 2024-01-11 22:14 | XMS_ITS | Encounter Summary ---
Author Organization Jose Alejandro Pantoja [facility] Address [address] [place] [address] Care Team Providers Care Candy Department Manager Name Role Phone Cheo Santoyo DO Primary Care Provider Encounter Details Date Type Department Care Team ([facility] st Contact Info) Description 08/04/2023 Abstract Primary Care - [address] [phone] Cheo Santoyo DO [address] [place] [phone] Social History Tobacco Use Types Packs/Day [...] 9:00 AM EDT Office Visit Neurology - [facility] [address] [facility] [address] [address] [place] [address] Martell Calderon MD 214 [facility] [address] [place] [address] TREMORS/ MEDICARE, FOR LIFE 03/28/2024 8:30 AM EDT Office Visit Primary Care - [address] [phone] [place] [address] [place] [phone] AWV 04/06/2024 9:45 AM EST Lab [facility] [address] [facility] [address] [place] [address] CBCMP,CEA,FEST 04/06/2024 10:15 AM EST Office Visit [facility] [address] [facility] [address] [place] [phone] Georgi Butterfield MD [address] [place] [address] 6 MTH FU W/LABS, REV SCAN 04/13/2024 9:30 AM EST Office Visit Surgical Oncology - [facility] [address] [facility] [address] [place] [address] Delvis Cheke MD 125 [facility] [address] [place] [address] 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 [address] [place] [address] Karly Bautista, [place] [address] [facility] [address] [place] [phone] annual visit from date of surgery May/Jul 2024 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 documented as of this encounter Visit Diagnoses Not on filedocumented in this encounter Additional Health Concerns Assessment Noted Time A fall risk assessment has been complete d for the patient 07/06/2023 9:36 AM EST documented as of this encounter Care Teams Candy Department Manager Relationship Specialty Start Date End Date Cheo Santoyo DO [address] [place] [phone] PCP - General Family Medicine 07/06/23 documented as of this encounter
--- OUTSIDE RECORDS SUMMARY | 2024-01-11 22:14 | XMS_ITS | Encounter Summary ---
Author Organization [facility] Alejandro [facility] Address [address] [place] [address] Care Team Providers Care Cushion Maker Hand Name Role Phone Cheo Santoyo Primary Care Provider Reason for Referral * Surgical (Routine) - Closed Specialty Diagnoses / Procedures Referred By Contosman jimenez Referred To Contact Orthopedic Surgery Diagnoses Primary osteoarthritis of right hip Procedures [place] ARTHRP ACETBLR/PROX FEM PROSTC AGRFT/ALGRFT Maurice Panchal MD [address] [address] Maurice Panchal MD [facility] [address] [address] Referral ID Status Reason Start Date Expiration Date V isits Requested Visits Authorized [id number] Closed Insurance 08/26/2023 08/25/2024 1 1 Scheduling Instructions LIZZ [id number] M16.9 DATE [facility] Maurice Panchal MD, Orthopaedics [facility] [address] [phone] Comments The patient can be scheduled with any member of the group, including the provider with the first available appointments. Encounter Details Date Type Department Care Team (Late st Contact Info) Description 08/26/2023 Orders Only Orthopaedics - [address] - [address] [place] [address] Maurice Panchal MD [address] [facility] [address] [place] [address] Primary osteoarthritis of right hip (Primary Dx); Pre-op testing Social History Tobacco Use Types Packs/Day Years [...] Office Visit Neurology - Maryan Jacobsen Dr. [address] [place] [phone] Martell Calderon MD 8947 [facility] [address] [place] [address] TREMORS/ MEDICARE, FOR LIFE 03/28/2024 8:30 AM EDT Office Visit Primary Care - [facility] [address] [place] [phone] Cheo Santoyo, [address] [place] [address] AWV 04/06/2024 9:45 AM EST Lab [facility] - [facility] [address] [facility] [address] [place] [phone] CBCMP,CEA,FEST 04/06/2024 10:15 AM EST Office Visit [facility] - [facility] [address] [facility] [address] [place] [address] Georgi Butterfield MD [address] [place] [address] 6 MTH FU W/LABS, REV SCAN 04/13/2024 9:30 AM EST Office Visit Surgical Oncology - [facility] [address] [facility] [address] [place] [address] Delvis Cheek MD 125 [facility] [address] [place] [address] 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 06/19/2024 10:30 AM EST Office Visit Orthopaedics- Les Valencia [address] [facility] [address] [place] [phone] Karly Bautista PA [address] [place] [address] annual visit from date of surgery May/Jul 2024 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 Scheduled Orders Name Type Priority Associated Diagnoses Orde r Schedule CBC Lab Routine Pre-op testing Expected: 08/26/2023, Expires: 08/25/2024 Comprehensive Metabolic Panel Lab Routine Pre-op testing Expected: 08/26/2023, Expires: 08/25/2024 Case Request Procedures Routine Ordered: Scheduled Referrals Name Type Priority Associated Diagnoses Orde r Schedule Ambulatory referral to Orthopedic Surgery Outpatient Referral Routine Primary osteoarthritis of right hip Ordered: 08/26/2023 documented as of this encounter Visit Diagnoses Diagnosis Primary osteoarthritis of right hip- Primary Primary localized osteoarthrosis, pelvic region and thigh Pre-op testing Preoperative examination, unspecified documented in this encounter Additional Health Concerns Assessment Noted Time A fall risk assessment has been complete d for the patient 07/06/2023 9:36 AM EST documented as of this encounter Care Teams Cushion Maker Hand Relationship Specialty Start Date End Date Cheo Santoyo DO [address] [place] [phone] PCP - General Family Medicine 07/06/23 documented as of this encounter
--- OUTSIDE RECORDS SUMMARY | 2024-01-11 22:14 | XMS_ITS | Encounter Summary ---
Author Organization Jose Alejandro Kit [facility] de[facility] Address [address] [place] [address] Care Team Providers Care Correspondence Clerk Name Role Phone Cheo Santoyo DO Primary Care Provider Reason for Referral * Eval and Treat (Routine) - Closed Specialty Diagnoses / Procedures Referred By Rachid jimenez Referred To Contact Neurology Diagnoses Essential tremor Cheo Santoyo DO [address] [place] [phone] Martell Calderon MD [address] [address] Referral ID Status Reason Start Date Expiration Date V isits Requested Visits Authorized [id number] Closed Specialty Services Required 08/20/2023 08/19/2024 1 1 Scheduling Instructions [facility] Neurology Comments The patient can be scheduled with any member of the group, including the provider with the first available appointments. Reason for Visit * Reason Onset Date Comments OTHER 08/20/2023 Referral Neurolo gy Encounter Details Date Type Department Care Team ([facility] Contact Info) Description 08/20/2023 Telephone Primary Care - [address] [phone] Cheo Santoyo DO [address] [place] [phone] OTHER (Referral Neurology) Social History Tobacco Use Types Packs/Day Years [...] Office Visit Neurology - Maryan Jacobsen Dr. [address] [place] [address] Martell Calderon MD [address] [facility] [address] [place] [address] TREMORS/ MEDICARE, FOR LIFE 03/28/2024 8:30 AM EDT Office Visit Primary Care - [address] [phone] Cheo Santoyo, DO [address] [place] [phone] AWV 04/06/2024 9:45 AM EST Lab [facility] - [facility] [address] [facility] [address] [place] [phone] CBCMP,CEA,FEST 04/06/2024 10:15 AM EST Office Visit [facility] - [facility] [address] [facility] [address] [place] [phone] Georgi Butterfield MD [address] [place], [place] [phone] 6 MTH FU W/LABS, REV SCAN 04/13/2024 9:30 AM EST Office Visit Surgical Oncology - [facility] [address] [facility] [address] [place] [address] Delvis Cheek MD 125 [facility] 660 [place] [phone] 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 06/19/2024 10:30 AM EST Office Visit Orthopaedics- Les Valencia 615 [facility] [address] [place] [phone] Karly Bautista PA 180 [place] [facility] [address] [place] [address] annual visit from date of surgery May/Jul 2024 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 Scheduled Referrals Name Type Priority Associated Diagnoses Order Schedule [facility] - Martell Calderon MD, Neurology - [facility] Outpatient Referral Routine Essential tremor Ordered: 08/20/2023 documented as of this encounter Visit Diagnoses Diagnosis Essential tremor- Primary Essential and other specified forms of tremor documented in this encounter Additional Health Concerns Assessment Noted Time A fall risk assessment has been complete d for the patient 07/06/2023 9:36 AM EST documented as of this encounter Care Teams Correspondence Clerk Relationship Specialty Start Date End Date Cheo Santoyo DO [address] [place] [phone] PCP - General Family Medicine 07/06/23 documented as of this encounter
--- OUTSIDE RECORDS SUMMARY | 2024-01-11 22:14 | XMS_ITS | Encounter Summary ---
Author Organization [facility] Address [address] [place] [address] Care Team Providers Care Content Administrator Name Role Phone Cheo Santoyo DO Primary Care Provider [phone] Reason for Visit * Reason Comments Surgical Clearance Right hip surgery, p t would like to discussTizanidine and Celebrex Encounter Details Date Type Department Care Team (Latest Contact Info) Description 09/02/2023 11:00 AM EDT Office Visit Primary Care - [address] [phone] Cheo Santoyo DO [address] [place] [phone] Osteoarthritis of right hip, unspecified osteoarthritis type (Primary Dx); Sacroiliitis (HCC); Type 2 diabetes mellitus with diabetic neuropathy, without long-term current use of insulin (HCC); Benign essential HTN; Cervicalgia Social History Tobacco Use Types Packs/Day Years [...] Sign Reading Time Taken Comments Blood Pressure 114/78 09/02/2023 11:04 AM EDT Pulse 91 09/02/2023 11:04 AM EDT Temperature - - Respiratory Rate - - Oxygen Saturation 96% 09/02/2023 11:04 AM EDT Inhaled Oxygen Concentration - - Weight 97.1 kg (214 lb 1.6 oz) 09/02/2023 11:04 AM EDT Height 175.3 cm (5' 9) 09/02/2023 11:04 AM EDT Body Mass Index 31.62 09/02/2023 11:04 AM EDT documented in this encounter Progress Notes * Cheo Santoyo, - 09/02/2023 11:28 AM EDT CHIEF COMPLAINT: Chief Complaint Patient presents with Surgical Clearance Right hip surgery, pt would like to discussTizanidine and Celebrex HISTORY OF PRESENT ILLNESS: Mr. Toribio is a 68 y.o. male who presents to clinic for preoperative clearance. The patient is being scheduled for right hip total arthroplasty. Previously was walks about 2.5 miles 3 times a week in preperation for a mens hike with his taoism.He noticed he gets catching every while traiing. Has since been told to stop by his orthopedic provider. MRI of tight hip shows multifocal high grade carteilage loss with parita tearing of the labrum No CP or SOB with physical activity. No smoking or history of asthma. No hx of known heart disease. Reports good control of fbg. Patient denies any polyuria, polydipsia, or symptomatic hypoglycemic episodes. PHQ: 07/06/2023 9:36 AM PHQ-9 Little interest or pleasure in doing things 0 Feeling down, depressed, or hopeless 0 PHQ-2 Score 0 PHQ-9 Total Score 0 CURRENT MEDICATION LIST: Current Outpatient Medications Medication Sig Dispense Refill celecoxib (CELEBREX) 200 MG capsule Take 1 capsule by mouth daily Take with food 30 capsule 1 tiZANidine (ZANAFLEX) 4 MG tablet Take 1 tablet by mouth every 6 hours as needed (muscle spasm) 30 tablet 2 Semaglutide, 1 MG/DOSE, (OZEMPIC, 1 MG/DOSE,) 4 MG/3ML SOPN Inject 1mg once weekly 3 mL 3 amoxicillin (AMOXIL) 500 MG capsule Take 4 capsules by mouth empagliflozin (JARDIANCE) 25 MG tablet 1 tablet Orally once daily 90 tablet 3 metFORMIN (GLUCOPHAGE) 1000 MG tablet 1 tablet with a meal Orally bid 180 tablet 3 pantoprazole (PROTONIX) 40 MG tablet 1 tablet Orally Once a day for 30 day(s) 90 tablet 3 olmesartan (BENICAR) 20 MG tablet Take 0.5 [...] Prevent Deep Vein Thrombosis 30 tablet 0 No current facility-administered medications for this visit. ALLERGIES: Allergies Allergen Reactions Morphine Itching, Nausea And Vomiting and Other (See Comments) Other reaction(s): migraines, hallucinations, itching Other reaction(s): Hallucinations, HALLUCINATIONS, ITCH, Other (See Comments) Event: hallucinations Migraines Other reaction(s): HALLUCINATIONS, ITCH, Unknown, Other: Sensitivity HISTORY: Past Medical History: Diagnosis Date Ryan's esophagus Cancer (HCC) 2019 Colon Chronic back pain Diabetes (HCC) DJD (degenerative joint disease) GERD (gastroesophageal reflux disease) Hip pain HTN (hypertension) Hyperlipidemia Left bundle branch block (LBBB) no longer sees laminating machine operator helper, states stress and testing was completed and laminating machine operator helper signed off PONV (postoperative nausea and vomiting) Post-operative nausea and vomiting AND STATES BODY TEMP DROPPED TO 94 DEGREES F Sleep apnea MILD AND DOES NOT USE CPAP Spinal stenosis Type 2 diabetes mellitus without complication ([facility]) Past Surgical History: Procedure Laterality Date BACK SURGERY 02/05/1986 laminectomy, discectomy CERVICAL DISCECTOMY 04/18/2007 , cervical fusion 2012 COLONOSCOPY MULTIPLE HAND CARPECTOMY Left 2021 HAND SURGERY Right 2001 debby luanr repair HEMICOLECTOMY 2020 HIP SURGERY Right 06/18/2022 INTRA ARTICULAR HIP RIGHT HIP performed by Martinez Guthrie MD at [facility] HIP SURGERY Bilateral 08/04/2023 INTRA ARTICULAR HIP BILATERAL NO PA REQ performed by Martinez Guthrie MD at [facility]IN [facility] JOINT REPLACEMENT Right 2011 shoulder KIDNEY STONE SURGERY 2009 basket removal KNEE ARTHROSCOPY Left 10/13/2021 multiple knee scopes right and left 1997 thru 2021 SHOULDER SURGERY Right 2010 2011 right hemiarthroplasty SUBTOTAL COLECTOMY 2020 R. Hemicolectomy TOTAL KNEE ARTHROPLASTY Left 12/21/2022 LEFT TOTAL KNEE ARTHROPLASTY, ROBOTIC performed by Maurice Panchal MD at [facility] MAIN OR TOTAL KNEE ARTHROPLASTY Right 03/17/2023 RIGHT TOTAL KNEE ARTHROPLASTY, ROBOTIC performed by Maurice Panchal MD at [facility] MAIN OR UPPER GASTROINTESTINAL ENDOSCOPY 2019 [...] date: 05/31/1969 Quit date: 05/31/1996 Years since quittin.2 Smokeless tobacco: Never Vaping Use Vaping Use: [...] No edema. Left lower leg: No edema. Comments: Rotation of right hip produces groin pain Skin: General: Skin is warm and dry. Coloration: Skin is not jaundiced. Findings: No erythema or rash. Neurological: Mental Status: He is alert and oriented to person, place, and time. Psychiatric: Mood and Affect: Mood normal. Behavior: Behavior normal. Thought Content: Thought content normal. Judgment: Judgment normal. Vital Signs - Visit Vitals BP 114/78 Pulse 91 Ht 1.753 m (5' 9) Wt 97.1 kg (214 lb 1.6 oz) SpO2 96% BMI 31.62 kg/m?? LABS No results found for this visit on 09/02/23. Orders Only on 07/06/2023 Component Date Value Ref Range Status Screening PSA 07/06/2023 1.420 0.000 - 4.000 ng/mL Final Comment: PSA INTERPRETATION: PSA measured by Ja Harry electrochemiluminescence immunoassay ECLIA methodology. At this time, no major scientific/medical organization including the [place] Cancer [employer] and the [place] U[employer] Association have specific recommendations in regard to prostate specific antigen (PSA) testing other than recommending that men at age 50 and above and those who are at high risk at age 40-45 and above be counseled in regard to the pros and cons of PSA testing. Guidelines for risk stratification 1. Below 1: Very low risk of prostate cancer 2. 1-4: Approximately 15% risk of prostate cancer 3. 4-10: 25% risk of prostate cancer 4. >10: 50% risk of prostate cancer The use of PSA velocity (rate of rise of PSA over time) may also be useful in predicting the risk of prostate cancer. Most authorities recommend PSA testing on at least three occasions over a period of 18 months to get an accurate PSA velocity. References available by request. Sodium 07/06/2023 140 135 - 145 mmol/L Final Potassium 07/06/2023 5.5 (H) 3.5 - 5.3 mmol/L Final Chloride 07/06/2023 104 98 - 107 mmol/L Final CO2 07/06/2023 27 22 - 29 mmol/L Final Glucose 07/06/2023 102 (H) 70 - 99 mg/dL Final BUN 07/06/2023 20 8 - 23 mg/dL Final Creatinine 07/06/2023 1.1 0.7 - 1.3 mg/dL Final Anion Gap 07/06/2023 9 2 - 17 mmol/L Final OSMOLALITY CALCULATED 07/06/2023 282 270 - 287 mOsm/kg Final Calcium 07/06/2023 10.2 8.8 - 10.2 mg/dL Final Total Protein 07/06/2023 6.5 6.4 - 8.3 g/dL Final Albumin 07/06/2023 4.4 3.5 - 5.2 g/dL Final Globulin 07/06/2023 2.1 1.9 - 4.4 g/dL Final Albumin/Globulin Ratio 07/06/2023 2.10 1.00 - 2.70 Final Total Bilirubin 07/06/2023 0.30 0.00 - 1.20 mg/dL Final Alk Phosphatase 07/06/2023 78 40 - 130 unit/L Final AST 07/06/2023 19 0 - 50 unit/L Final ALT 07/06/2023 27 0 - 50 unit/L Final Est, Glom Filt Rate 07/06/2023 74 >=60 mL/min/1.73m?? Final Comment: VERIFIED by Discern Expert. GFR [...] Kidney Foundation for estimating GFR in adults. Hemoglobin A1C 07/06/2023 6.8 (H) 4.0 - 6.0 % Final Comment: HEMOGLOBIN A1C INTERPRETATION: The following arbitrary [...] Sub-Optimal Control > 8.0 % Inadequate Control Est. Avg. Glucose, WB 07/06/2023 148 Final Est. Avg. Glucose-calculated 07/06/2023 165 Final IMPRESSION/PLAN Encounter Diagnoses Name Primary? Osteoarthritis of right hip, unspecified osteoarthritis type Yes Sacroiliitis (HCC) Type 2 diabetes mellitus with diabetic neuropathy, without long-term current use of insulin ([facility]) Benign essential HTN Cervicalgia 1. Osteoarthritis of right hip, unspecified osteoarthritis type Assessment & Plan: Patient presents today for clearance to proceed with right total hip arthroplasty. The patient has tolerated general anesthesia in the past without any issue. KARYNA calculated to be 0.2% 2. Sacroiliitis (HCC) Assessment & Plan: symptoms currently well-controlled with NSAIDs 3. Type 2 diabetes mellitus with diabetic neuropathy, without long-term current use of insulin ([facility]) Assessment & Plan: Last hemoglobin A1c well-controlled at 6.8. He is tolerating his GLP-1 agonist without adverse effect. Patient will continue this at current dose. 4. Benign essential HTN Assessment & Plan: blood pressure currently well-controlled, we will continue current blood pressure regimen. 5. Cervicalgia Assessment & Plan: patient advised that he is safe to combine Celebrex and Zanaflex together for his neck pain. Orders: - celecoxib (CELEBREX) 200 MG capsule; Take 1 capsule by mouth daily Take with food, Disp-30 capsule, R-1Normal - tiZANidine (ZANAFLEX) 4 MG tablet; Take 1 tablet by mouth every 6 hours as needed (muscle spasm),Disp-30 tablet, R-2Normal Follow up and Dispositions: Return in about 6 months (around 03/03/2024) for as scheduled. Cheo Santoyo DO documented in this encounter Plan of Treatment Upcoming Encounters Date Type Department Care Team (Late st Contact Info) Description 03/24/2024 9:00 AM EDT Office Visit Neurology - [facility] [address] [facility] [address] [place] [phone] Martell Calderon MD [address] [facility] [address] [place], [place] [phone] TREMORS/ MEDICARE, FOR LIFE 03/28/2024 8:30 AM EDT Office Visit Primary Care - [address] [phone] Cheo Santoyo DO [address] [place] [phone] AWV 04/06/2024 9:45 AM EST Lab [facility] - [facility] [address] [facility] [address] [place] [address] CBCMP,CEA,FEST 04/06/2024 10:15 AM EST Office Visit [facility] - [facility] [address] [facility] [address] [place] [address] Georgi Butterfield MD [address] [place] [address] 6 MTH FU W/LABS, REV SCAN 04/13/2024 9:30 AM EST Office Visit Surgical Oncology - 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 documented as of this encounter Visit Diagnoses Diagnosis Osteoarthritis of right hip, unspecified osteoarthritis type- Primary Sacroiliitis (HCC) Sacroiliitis, not elsewhere classified Type 2 diabetes mellitus with diabetic neuropathy, without long-term current use of insulin (HCC) Benign essential HTN Essential hypertension, benign Cervicalgia documented in this encounter Additional Health Concerns Assessment Noted Time A fall risk assessment has been complete d for the patient 07/06/2023 9:36 AM EST documented as of this encounter Care Teams Content Administrator Relationship Specialty Start Date End Date Cheo Santoyo DO [address] [place] [phone] PCP - General Family Medicine 07/06/23 documented as of this encounter
--- OUTSIDE RECORDS SUMMARY | 2024-01-11 22:14 | XMS_ITS | Encounter Summary ---
Author Organization [facility] Address [address] [place] [address] Care Team Providers Care Production Mechanic Name Role Phone Cheo Santoyo DO Primary Care Provider [phone] Encounter Details Date Type Department Care Team ([facility] st Contact Info) Description 07/06/2023 Orders Only Primary Care - [address] [phone] Cheo Santoyo DO [address] [place] [phone] Screening PSA (prostate specific antigen); Type 2 diabetes mellitus without complication, without long-term current use of insulin (HCC) Social History Tobacco Use Types Packs/Day [...] 9:00 AM EDT Office Visit Neurology - [facility] [address] [facility] [address] [place] [address] Martell Calderon MD [address] [facility] [address] [place] [address] TREMORS/ MEDICARE, FOR LIFE 03/28/2024 8:30 AM EDT Office Visit Primary Care - [address] [phone] Cheo Santoyo DO [address] [place] [phone] AWV 04/06/2024 9:45 AM EST Lab [facility] - [facility] [address] [facility] [address] [place] [address] CBCMP,CEA,FEST 04/06/2024 10:15 AM EST Office Visit [facility] - [facility] [address] [facility] [address] [place] [address] Georgi Butterfield MD [address] [place] [address] 6 MTH FU W/LABS, REV SCAN 04/13/2024 9:30 AM EST Office Visit Surgical Oncology - [facility] [address] [facility] [address] [place] [address] Delvis Cheek MD 125 [facility] [address] [place] [address] 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 documented as of this encounter Procedures Procedure Name Priority Date/Time Associated Diagnosis Comments PSA SCREENING Routine 07/06/2023 11:08 AM EST Screening PSA (prostate specific antigen) HEMOGLOBIN A1C Routine 07/06/2023 11:08 AM EST Type 2 diabetes mellitus without complication, without long-term current use of insulin (HCC) COMPREHENSIVE METABOLIC PANEL Routine 07/06/2023 11:08 AM EST Type 2 diabetes mellitus without complication, without long-term current use of insulin (HCC) documented in this encounter Results * (ABNORMAL) Hemoglobin A1C (07/06/2023 11:08 AM EST) Hemoglobin A1C 6.8(H) 4.0 - 6.0 % [facility] Comment: HEMOGLOBIN A1C INTERPRETATION: The [...] Inadequate Control Est. Avg. Glucose, WB 148 [facility] Est. Avg. Glucose-calculated 165 [facility] Blood BLOOD SPECIMEN / Unknown 07/06/2023 11:08 AM EST 07/06/2023 3:58 PM EST Cheo Santoyo DO CHEMISTRY ORDERABLES Performing Organization Address [facility]/State/[facility] Co de Phone Number [facility] [address] [place] [address] * (ABNORMAL) Comprehensive Metabolic Panel (07/06/2023 11:08 [...] Anion Gap 9 2 - 17 mmol/L [facility] [place] Calculated 282 270 - [...] Santoyo DO CHEMISTRY ORDERABLES Performing Organization Address City/State/[facility] Co de Phone Number [facility] [address] [place] [address] * PSA Screening (07/06/2023 11:08 AM EST) PSA, Screening 1.420 0.000 - 4.000 ng/mL [facility] Comment: PSA INTERPRETATION: PSA measured by Ja Harry electrochemiluminescence immunoassay ECLIA methodology. At this time, no major scientific/medical organization including the [place] [employer] and the [place] U[employer] Association have specific recommendations in regard [...] Santoyo DO CHEMISTRY ORDERABLES Performing Organization Address City/State/[facility] Co de Phone Number [facility] [address] [place] [address] documented in this encounter Visit Diagnoses Diagnosis Screening PSA (prostate specific antigen) Special screening for malignant neoplasm of prostate Type 2 diabetes mellitus without complication, without long-term current use of insulin (HCC) documented in this encounter Additional Health Concerns Assessment Noted Time A fall risk assessment has been complete d for the patient 07/06/2023 9:36 AM EST documented as of this encounter Care Teams Production Mechanic Relationship Specialty Start Date End Date Cheo Santoyo DO [address] [place] [phone] PCP - General Family Medicine 07/06/23 documented as of this encounter
--- OUTSIDE RECORDS SUMMARY | 2024-01-11 22:14 | XMS_ITS | Encounter Summary ---
Author Organization [facility] Address [address] [place] [address] Care Team Providers Care Drafter Marine Name Role Phone Cheo Santoyo Moshe REYES Primary Care Provider [phone] Encounter Details Date Type Department Care Team (Late st Contact Info) Description 08/24/2023 Orders Only Orthopaedics - [place] [id number] [phone] Maurice Panchal MD [address] [address] Social History Tobacco Use Types Packs/Day Years [...] 9:00 AM EDT Office Visit Neurology - [facility] [address] [facility] [address] [place] [address] Martell Calderon MD [address] [facility] [address] [place] [address] TREMORS/ MEDICARE, FOR LIFE 03/28/2024 8:30 AM EDT Office Visit Primary Care - [address] [phone] [place] [address] [place] [phone] AWV 04/06/2024 9:45 AM EST Lab [facility] - [facility] [address] [facility] [address] [place] [address] CBCMP,CEA,FEST 04/06/2024 10:15 AM EST Office Visit [facility] - [facility] [address] [facility] [address] [place] [phone] Georgi Butterfield MD [address] [facility] [address] [place] [address] 6 MTH FU W/LABS, REV SCAN 04/13/2024 9:30 AM EST Office Visit Surgical Oncology - [facility] [address] [facility] [address] [place] [phone] Delvis Cheek MD 125 [facility] [address] [place] [phone] 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 [address] [place] [address] Karly Bautista, PA [address] [place] [phone] annual visit from date of surgery May/Jul 2024 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 documented as of this encounter Visit Diagnoses Not on filedocumented in this encounter Additional Health Concerns Assessment Noted Time A fall risk assessment has been complete d for the patient 07/06/2023 9:36 AM EST documented as of this encounter Care Teams Drafter Marine Relationship Specialty Start Date End Date Cheo Santoyo DO [address] [place] [phone] PCP - General Family Medicine 07/06/23 documented as of this encounter
--- OUTSIDE RECORDS SUMMARY | 2024-01-11 22:14 | XMS_ITS | Encounter Summary ---
Author Organization [facility] Address [address] [place] [address] Care Team Providers Care President Name Role Phone Felicitas Monaco MD Primary Care Provider [phone] Reason for Visit * Reason Onset Date Comments Medication Refill 05/26/2023 Encounter Details Date Type Department Care Team (Late st Contact Info) Description 05/26/2023 Refill Primary Care - [address] [facility] [address] [place] [address] Ninfa Hernandez APRN - WOODWORKING MACHINE OPERATOR [address] [facility] [address] [place] [address] Medication Refill Social History Tobacco Use Types Packs/Day Years [...] Neurology - [facility] [address] [facility] [address] [place] [address] Martell Calderon MD [address] [facility] [address] [place], [place] [phone] TREMORS/ MEDICARE, FOR LIFE 03/28/2024 8:30 AM EDT Office Visit Primary Care - [address] [phone] Cheo Santoyo, DO [address] [place] [phone] AWV 04/06/2024 9:45 AM EST Lab [facility] - [facility] [address] [facility] [address] [place] [address] CBCMP,CEA,FEST 04/06/2024 10:15 AM EST Office Visit [facility] - [facility] [address] [facility] [address] [place] [address] Georgi Butterfield MD [address] [place], [place] [phone] 6 MTH FU W/LABS, REV SCAN 04/13/2024 9:30 AM EST [facility] [address] [facility] [address] [place] [phone] Delvis Cheek MD 125 [facility] [address] [place] [address] 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 [address] [place] [address] Karly Bautista, PA 180 [facility] [address] [place] [address] annual visit from date of surgery May/Jul 2024 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 documented as of this encounter Visit Diagnoses Not on filedocumented in this encounter Additional Health Concerns Assessment Noted Time A fall risk assessment has been complete d for the patient 02/26/2023 9:45 AM EDT documented as of this encounter Care Teams President Relationship Specialty Start Date End Date Felicitas Monaco MD PCP - General Family Medicine 06/18/22 07/05/23 documented as of this encounter
--- OUTSIDE RECORDS SUMMARY | 2024-01-11 22:14 | XMS_ITS | Encounter Summary ---
Author Organization Jose Alejandro Pantoja [facility] Address [address] [place] [address] Care Team Providers Care Design Engineer Marine Equipment Name Role Phone Cheo Santoyo Primary Care Provider [phone] Encounter Details Date Type Department Care Team (Late st Contact Info) Description 09/28/[address] [facility] Hematology & Oncology - [facility]. [address] [facility] [address] [place] [address] Georgi Butterfield MD [address] [place] [address] Social History Tobacco Use Types [...] EDT Office Visit Neurology - [facility] [address] [facility] [address] [place] [address] Martell Calderon MD 214 [facility] [address] [place] [address] TREMORS/ MEDICARE, FOR LIFE 03/28/2024 8:30 AM EDT Office Visit Primary Care - [address] [address] Cheo Santoyo DO [address] [place] [address] AWV 04/06/2024 9:45 AM EST Lab [place] [facility] - [facility] [address] [facility] [address] [place] [address] CBCMP,CEA,FEST 04/06/2024 10:15 AM EST Office Visit [place] [facility] - [facility] [address] [facility] [address] [place] [address] Georgi Butterfield MD [address] [place] [address] 6 MTH FU W/LABS, REV SCAN 04/13/2024 9:30 AM EST Office Visit Surgical Oncology - [facility] [address] [facility] [address] [address] [place] [address] Delvis Cheek MD 125 [facility] 660 [place] [address] 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 documented as of this encounter Visit Diagnoses Not on filedocumented in this encounter Additional Health Concerns Assessment Noted Time A fall risk assessment has been complete d for the patient 07/06/2023 9:36 AM EST documented as of this encounter Care Teams Design Engineer Marine Equipment Relationship Specialty Start Date End Date Cheo Santoyo DO [address] [place] [phone] PCP - General Family Medicine 07/06/23 documented as of this encounter
--- OUTSIDE RECORDS SUMMARY | 2024-01-11 22:14 | XMS_ITS | Encounter Summary ---
Author Organization Jose Alejandro Pantoja [facility] Address [address] [place] [address] Care Team Providers Care Dimension Warehouse Supervisor Name Role Phone Cheo Santoyo Primary Care Provider [phone] Encounter Details Date Type Department Care Team (Late st Contact Info) Description 04/06/2023 Home Visit [facility] [place] Maurice Panchal MD [address] [address] Social History Tobacco Use Types Packs/Day Years [...] Neurology - [facility] [address] [facility] [address] [place] [address] Martell Calderon MD 2144 [facility] [address] [place] [address] TREMORS/ MEDICARE, FOR LIFE 03/28/2024 8:30 AM EDT Office Visit Primary Care - [address] [address] Cheo Santoyo [address] [address] AWV 04/06/2024 9:45 AM EST Lab [place] [facility] - [facility] [address] [facility] [address] [place] [address] CBCMP,CEA,FEST 04/06/2024 10:15 AM EST Office Visit [place] [facility] - [facility] [address] [facility] [address] [place] [address] Georgi Butterfield MD 3510 [facility] [address] [place] [address] 6 MTH FU W/LABS, REV SCAN 04/13/2024 9:30 AM EST Office Visit Surgical Oncology - [facility] [address] [facility] [address] [place] [address] Delvis Cheek MD 125 [facility] 660 [place] [phone] 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 documented as of this encounter Visit Diagnoses Not on filedocumented in this encounter Additional Health Concerns Assessment Noted Time A fall risk assessment has been complete d for the patient 02/26/2023 9:45 AM EDT documented as of this encounter Care Teams Dimension Warehouse Supervisor Relationship Specialty Start Date End Date Cheo Santoyo DO [address] [place] [phone] PCP - General Family Medicine 07/06/23 documented as of this encounter
--- OUTSIDE RECORDS SUMMARY | 2024-01-11 22:14 | XMS_ITS | Encounter Summary ---
Author Organization Jose Alejandro Pantoja [facility] Address [address] [place] [address] Care Team Providers Care Grip Assembler Name Role Phone Cheo Santoyo DO Primary Care Provider [phone] Encounter Details Date Type Department Care Team ([facility] st Contact Info) Description 07/23/2023 Abstract Primary Care - [address] [address] Cheo Santoyo DO [address] [place] [address] Social History Tobacco Use Types Packs/Day [...] Upcoming Encounters Date Type Department Care Team ([facility] st Contact Info) Description 03/24/2024 9:00 AM EDT Office Visit Neurology - [facility] [address] [facility] [address] [place] [address] Martell Calderon MD 2144 [facility] [address] [place] [address] TREMORS/ MEDICARE, FOR LIFE 03/28/2024 8:30 AM EDT Office Visit Primary Care - [address] [address] Cheo Santoyo [address] [address] AWV 04/06/2024 9:45 AM EST Lab [place] [facility] - [facility] [address] [facility] [address] [place] [address] CBCMP,CEA,FEST 04/06/2024 10:15 AM EST Office Visit [place] [facility] - [facility] 20[address] [facility] [address] [place] [address] Georgi Butterfield MD 3510 [facility] [address] [place], [place] [phone] 6 MTH FU W/LABS, REV SCAN 04/13/2024 9:30 AM EST Office Visit Surgical Oncology - 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 301 [place] [address] annual visit from date of surgery May/Jul 2024 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 documented as of this encounter Visit Diagnoses Not on filedocumented in this encounter Additional Health Concerns Assessment Noted Time A fall risk assessment has been complete d for the patient 07/06/2023 9:36 AM EST documented as of this encounter Care Teams Grip Assembler Relationship Specialty Start Date End Date Cheo Santoyo DO [address] [place] [phone] PCP - General Family Medicine 07/06/23 documented as of this encounter
--- OUTSIDE RECORDS SUMMARY | 2024-01-11 22:14 | XMS_ITS | Encounter Summary ---
Author Organization Jose Alejandro Pantoja [facility]sol de[facility] Address [address] [place] [address] Care Team Providers Care Executive Director Of Nursing Name Role Phone Felicitas Monaco MD Primary Care Provider [phone] Encounter Details Date Type Department Care Team (Late st Contact Info) Description 04/07/2023 Orders Only [place] [facility] - [facility] [address] [facility] [address] [place] [address] Georgi Butterfield MD [address] [place] [address] Iron deficiency anemia, unspecified iron [...] Office Visit Neurology - [facility] [address] [facility] [address] [place] [address] Martell Calderon MD 2144 [facility] [address] [place], [place] [address] TREMORS/ MEDICARE, FOR LIFE 03/28/2024 8:30 AM EDT Office Visit Primary Care - [address] [address] [place] [address] [place] [address] AWV 04/06/2024 9:45 AM EST Lab [place] [facility] - [facility] [address] [facility] [address] [place] [address] CBCMP,CEA,FEST 04/06/2024 10:15 AM EST Office Visit [place] [facility] - [facility] [address] [facility] [address] [place] [address] Georgi Butterfield MD [address] [place] [address] 6 MTH FU W/LABS, REV SCAN 04/13/2024 9:30 AM EST Office Visit Surgical Oncology - [facility] [address] [facility] [address] [place] [address] Delvis Cheek MD 125 [facility] 660 [place] [address] 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 [address] [place] [address] Karly Bautista, PA [address] [place] [phone] annual visit from date of surgery May/Jul 2024 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 documented as of this encounter Results * CEA (Serial Monitor) (04/08/2023 8:58 AM EST) CEA (SERIAL MONITOR) 2.1 0.0 - 4.7 ng/mL [facility] Comment: ? Nonsmokers ?<3.9 ? Smokers ? <5.6 [facility] Electrochemiluminescence Immunoassay (ECLIA) Values obtained with different assay methods or kits cannot be used interchangeably. ??Results cannot be interpreted as absolute evidence of the presence or absence of malignant disease. Performed At: [facility] [address] [place], [place] [id number] Ajit Swift MD Ph:[phone] Test Performed at: [facility] [address] [facility] [place] [address] Blood BLOOD SPECIMEN / Unknown 04/08/2023 8:58 AM EST 04/08/2023 2:11 PM EST Georgi Butterfield MD CHEMISTRY ORDERABLE S [facility] [address] [place] [address] * (ABNORMAL) Comprehensive Metabolic Panel (04/08/2023 8:58 AM EST) Sodium 140 135 - 145 mmol/L [facility] Potassium 4.9 3.5 - 5.3 mmol/L [facility] Chloride 104 98 - 107 mmol/L [facility] CO2 25 22 - 29 mmol/L [facility] Glucose 176(H) 70 - 99 mg/dL [facility] BUN 17 8 - 23 mg/dL [facility] Creatinine 1.1 0.7 - 1.3 mg/dL [facility] Anion Gap 11 2 - 17 mmol/L [facility] Osmolaliy Calculated 285 270 - 287 mOsm/kg [facility] Calcium 10.1 8.8 - 10.2 mg/dL [facility] Total Protein 7.0 6.4 - 8.3 g/dL [facility] Albumin 4.6 3.5 - 5.2 g/dL [facility] Globulin 2.5 1.9 - 4.4 g/dL [facility] Albumin/Globulin Ratio 1.86 1.00 - 2.70 [facility] Total Bilirubin 0.41 0.00 - 1.20 mg/dL [facility] Alk Phosphatase 114 40 - 130 unit/L [facility] AST 23 0 - 50 unit/L [facility] ALT 28 0 - 50 unit/L [facility] Est, Glom Filt Rate 74 >=60 mL/min/1.7 3m? [facility] Comment: VERIFIED by Discern Expert. GFR [...] estimating GFR in adults. Test Performed at: [facility] [address] [facility] [place] [address] Blood BLOOD SPECIMEN / Unknown 04/08/2023 8:58 AM EST 04/08/2023 2:11 PM EST Georgi Butterfield MD CHEMISTRY ORDERABLE S [facility] [address] [facility] [place] [address] * (ABNORMAL) CBC with Auto Differential (04/08/2023 [...] - 04/08/2023 9:08 AM EST Testing Location: [address], [address], [facility] [address], Georgi Butterfield MD HEMATOLOGY ORDERABL ES [facility] [address] [facility] [address] [place] [address], [facility] * Ferritin (04/08/2023 8:58 AM EST) Ferritin 291.1 30.0 - 400.0 ng/mL [facility] Comment: Test Performed at: [facility] [address] [place] [address] Blood BLOOD SPECIMEN / Unknown 04/08/2023 8:58 AM EST 04/08/2023 2:11 PM EST Georgi Butterfield MD CHEMISTRY ORDERABLE S Performing Organization Address [facility] Co de Phone Number [facility] [address] [place] [address] * Iron and TIBC (04/08/2023 8:58 AM EST) Iron 80 59 - 158 mcg/dL [facility] UIBC 221.8 112.0 - 347.0 mcg/dL [facility] TIBC 302 250 - 450 mcg/dL [facility] Iron % Saturation 26 20 - 40 % [facility] Comment: Test Performed at: [facility] [address] [place] [address] [place] [address] Serum BLOOD SPECIMEN / Unknown 04/08/2023 8:58 AM EST 04/08/2023 2:11 PM EST Georgi Butterfield MD CHEMISTRY ORDERABLE S Performing Organization Address [facility] de Phone Number [facility] [address] [place] [address] * Reticulocytes (04/08/2023 8:58 AM EST) RBC 5.10 4.00 - 5.60 x10e6/mcL [facility] Retic Ct Pct 1.8 0.5 - 2.0 % [facility] Retic Ct Abs 0.0933 0.0235 - 0.1220 /mcL [facility] Comment: Test Performed at: [facility] [address] [place] [address] [place] [address] Blood BLOOD SPECIMEN / Unknown 04/08/2023 8:58 AM EST 04/08/2023 2:11 PM EST Georgi Butterfield MD HEMATOLOGY ORDERABL ES Performing Organization Address [facility] de Phone Number [facility] [address] [place] [address] * Soluble transferrin receptor (04/08/2023 8:58 AM EST) Pathologist [facility] Soluble Transferrin Recept 20.7 12.2 - 27.3 nmol/L [facility] Comment: Performed At: [facility] [id number] Ajit Swift MD Ph:[phone] Test Performed at: [facility] [address] [facility] [place] [address] Blood BLOOD SPECIMEN / Unknown 04/08/2023 8:58 AM EST 04/08/2023 2:11 PM EST Georgi Butterfield MD HEMATOLOGY ORDERABL ES Performing Organization Address [facility] de Phone Number [facility] [address] [place] [address] * Vitamin B12 (04/08/2023 8:58 AM EST) [facility] Vitamin B-12 547 232 - 1245 pg/mL [facility] Comment: Effective 05/05/17 Vitamin B12 Methodology Change - Vitamin B12 Reference Range has been revised. Test Performed at: [facility] [address] [facility] [place] [address] Blood BLOOD SPECIMEN / Unknown 04/08/2023 8:58 AM EST 04/08/2023 2:11 PM EST Georgi Butterfield MD CHEMISTRY ORDERABLE S Performing Organization Address City/[facility] de Phone Number [facility] [address] [place] [address] * Folate (04/08/2023 8:58 AM EST) [facility] Folate 13.39 4.80 - 24.20 ng/mL [facility] Comment: Test Performed at: [facility] [address] [facility] [place] [address] Blood BLOOD SPECIMEN / Unknown 04/08/2023 8:58 AM EST 04/08/2023 2:11 PM EST Georgi Butterfield MD CHEMISTRY ORDERABLE S [facility] [address] [place] [address] documented in this encounter Visit Diagnoses Diagnosis Iron deficiency anemia, unspecified iron deficiency anemia type- Primary Carcinoma of ascending colon (HCC) Malignant neoplasm of ascending colon Iron deficiency anemia, unspecified iron deficiency anemia type Carcinoma of ascending colon (HCC) Malignant neoplasm of ascending colon documented in this encounter Additional Health Concerns Assessment Noted Time A fall risk assessment has been complete d for the patient 02/26/2023 9:45 AM EDT documented as of this encounter Care Teams Executive Director Of Nursing Relationship Specialty Start Date End Date Felicitas Monaco MD PCP - General Family Medicine 06/18/22 07/05/23 documented as of this encounter
--- OUTSIDE RECORDS SUMMARY | 2024-01-11 22:15 | XMS_ITS | Encounter Summary ---
Author Organization Jose Alejandro Pantoja [facility] Address [address] [place] [address] Care Team Providers Care Lump Room Supervisor Name Role Phone Felicitas Monaco MD Primary Care Provider [phone] Encounter Details Date Type Department Care Team (Latest Contact Info) Description 03/11/2023 Travel Social History Tobacco Use Types Packs/Day [...] Visit Neurology - [facility] [address] [facility] [address] [place] [address] Martell Calderon MD 2144 [facility] [address] [place] [address] TREMORS/ MEDICARE, FOR LIFE 03/28/2024 8:30 AM EDT Office Visit Primary Care - [address] [address] [place] [address] [place] [address] AWV 04/06/2024 9:45 AM EST Lab [place] [facility] - [facility] [address] [facility] [address] [place] [address] CBCMP,CEA,FEST 04/06/2024 10:15 AM EST Office Visit [place] [facility] - [facility] [address] [facility] [address] [place] [address] Georgi Butterfield MD 3510 [facility] [address] [place], [place] [phone] 6 MTH FU W/LABS, REV SCAN 04/13/2024 9:30 AM EST Office Visit Surgical Oncology - [facility] [address] [facility] [address] [place] [address] Delvis Cheek MD 125 [facility] [address] [place] [address] 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 [address] [place] [address] Karly Bautista, BURT 180 [facility] 301 [place] [address] annual visit from date of surgery May/Jul 2024 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 documented as of this encounter Visit Diagnoses Not on filedocumented in this encounter Additional Health Concerns Assessment Noted Time A fall risk assessment has been complete d for the patient 02/26/2023 9:45 AM EDT documented as of this encounter Care Teams Lump Room Supervisor Relationship Specialty Start Date End Date Felicitas Monaco MD PCP - General Family Medicine 06/18/22 07/05/23 documented as of this encounter
--- OUTSIDE RECORDS SUMMARY | 2024-01-11 22:15 | XMS_ITS | Encounter Summary ---
Author Organization Jose Alejandro Raymundolinnea [facility] Address [address] [place] [address] Care Team Providers Care Galvanizer Zinc Name Role Phone Felicitas Monaco MD Primary Care Provider [phone] Reason for Visit * Reason Onset Date Comments Other 01/27/2023 Encounter Details Date Type Department Care Team (Late st Contact Info) Description 01/27/2023 Telephone Primary Care - [address] [place] [address] Felicitas Monaco MD [address] [place] [address] Other Social History Tobacco Use Types Packs/Day Years Used Date Smoking Tobacco: Former Cigarettes 1 27 0 05/31/1969 - 05/31/1996 Smokeless Tobacco: Never Alcohol Use Standard Drinks/Week Comments Yes 4 (1 standard drink = 0.6 oz pur e alcohol) AUDIT-C Answer Date Recorded Q1: How often do you have a drink containing alc ohol? 2-3 times a week 01/19/2023 Q2: How many drinks containi ng alcohol do you have on a typical day when you are drinking? 1 or 2 01/19/2023 Q3: How often do you have si x or more drinks on one occasion? Never 01/19/2023 PHQ-2 Answer Date Recorded PHQ-9 Total Score 0 01/19/2023 Exercise Vital Sign Answer Date Recorde d On average, how many days pe r week do you engage in moderate to strenuous exercise (like a brisk walk)? 7 days 01/19/2023 On average, how many minutes do you engage in exercise at this level? 60 min 01/19/2023 Sex and Gender Information Value Date Recorded Sex Assigned at Not on file Gender Identity Not on file Sexual Orientation Not on file documented as of this encounter Plan of Treatment Upcoming Encounters Date Type Department Care Team (Late st Contact Info) Description 03/24/2024 9:00 AM EDT Office Visit Neurology - [facility] [address] [facility] [address] [place] [address] Martell Calderon MD 2144 [facility] [address] [place] [address] TREMORS/ MEDICARE, FOR LIFE 03/28/2024 8:30 AM EDT Office Visit Primary Care - [address] [address] [place] [address] [place] [phone] AWV 04/06/2024 9:45 AM EST Lab [place] [facility] - [facility] [address] [facility] [address] [place] [address] CBCMP,CEA,FEST 04/06/2024 10:15 AM EST Office Visit [place] [facility] - [facility] [address] [facility] [address] [place] [address] Georgi Butterfield MD [address] [place] [address] 6 MTH FU W/LABS, REV SCAN 04/13/2024 9:30 AM EST Office Visit Surgical Oncology - [facility] [address] [facility] [address] [place] [address] Delvis Cheek MD 125 [facility] 660 [place] [address] 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 documented as of this encounter Visit Diagnoses Not on filedocumented in this encounter Additional Health Concerns Assessment Noted Time A fall risk assessment has been complete d for the patient 01/19/2023 2:33 PM EDT documented as of this encounter Care Teams Galvanizer Zinc Relationship Specialty Start Date End Date Felicitas Monaco MD PCP - General Family Medicine 06/18/22 07/05/23 documented as of this encounter
--- OUTSIDE RECORDS SUMMARY | 2024-01-11 22:15 | XMS_ITS | Encounter Summary ---
Author Organization Jose Alejandro [facility] Address [address] [place] [address] Care Team Providers Care Balancer Scale Name Role Phone Felicitas Monaco MD Primary Care Provider [phone] Reason for Visit * Reason Comments Post-Op Check L TKA Encounter Details Date Type Department Care Team (Latest Contact Info) Description 01/22/2023 10:00 AM EDT Office Visit Orthopaedics - [address] [phone] Marquise Moses, COOLER MAN - MEDICAL DEVICE SALES Presence of artificial knee joint, left (Primary Dx); Primary osteoarthritis of right knee Social History Tobacco Use Types Packs/Day Years [...] this encounter Progress Notes * Marquise Moses, COOLER MAN - [employer]ICE SALES - 01/22/2023 9:59 AM EDT Images from the original note were not included. Date: 01/22/2023 Patient Name: Martínez Toribio : 1955 Primary Care Provider: Felicitas Monaco MD Reason for Visit: Post-Op Check (L TKA) History of Present Illness: 67 y.o. male presents with Chief Complaint Patient presents with Post-Op Check L TKA . Date of Surgery 12/21/22 Procedure: left TKA Patient feels fine Pain level: mild Pain med working satisfactorily: Yes Incision: fine Assistive device: cane ROM: improving Patient is 4 weeks status post left total knee arthroplasty. Overall he is doing well. He states heis having mild discomfort for which she is taking Tylenol. Patient denies any incisional issues. Patient denies any nausea or vomiting. Patient denies any fevers or chills. Patient denies any chest pain or shortness breath. He has been ambulating with a cane intermittently. He has completed aspirintherapy for DVT prophylaxis. He is also completed Celebrex. He is attending outpatient physical therapy and states he is getting 0 to 108 degrees for range of motion. Physical Examination: General: no acute distress Vascular: neurovascularly intact, no sign of DVT/VTE, calf soft, NTTP Psych: alert, oriented; mood and affect appropriate Musculoskeletal: Left Knee Alignment: Normal Gait: Typical for this stage Skin: Cosmetic scar with no rashes or lesions, bruising in the anterior tibia Incision: Incision looks good Effusion: Small Palpation: Normal, extensor mechanism intact ROM: Painless ROM extension: 0 degrees ROM flexion: 105 degrees Stability: Normal Strength: Typical for this stage Assessment/Plan Martínez was seen today for post-op check. Diagnoses and all orders for this visit: Presence of artificial knee joint, left XR KNEE LEFT (3 VIEWS) [01/22/2023 11:01:13 AM - MARQUISE MOSES] multiple views of the left knee reveal well aligned, well fixed knee replacement components without any issues or concerns We reviewed the patient's radiographic films today. Patient has a stable appearing left total knee arthroplasty -Physical therapy / home exercises with continued focus on achieving/maintaining full extension andimproving flexion capabilities as much as possible. We have discussed that his range of motion goal0-120+ degrees. He may continue to ice and elevate his left lower extremity as needed. He may beginto apply vitamin E oil or lotion to his incision and do some gentle scar massage a couple times a day. He will call for any concerns -Patient may continue to increase all activities as tolerated -Anticoagulation: May discontinue aspirin therapy at this time for DVT prophylaxis and return to all preoperative medications and/or supplements -We had a discussion including expectations and guidelines for recovery and care including antibiotic prophylaxis for lifetime including for dental procedures -Return to work: Not applicable Unilateral Primary osteoarthritis right knee XR knee right (MIN 4 VIEWS) 08/20/2022 Narrative X-rays of the right knee were available for review on the PACS system today. X- rays show end-stage osteoarthritis with near complete loss of medial joint space with significant narrowing causing mildvarus malalignment. Osteophytes are appreciated on the medial femoral condyle. Loose body is noted on lateral view of the posterior capsule Patient has failed conservative measures and is ready to proceed with a Right total knee arthroplasty using GLENDA robotic assisted technology. She has Grade IV changes on x-rays of the right knee based on the Kellgren-Gamaliel scale. Patient Educated with: Notebook for Knees (Knees Notebook 2 12.pdf) Patient will require walker and/or cane following total joint arthroplasty for assistance with ambulation. The patient has a mobility limitation that significantly impairs his/her ability to participate in one or more mobility related activities of daily living in the home,is able to safely use the walkerand/or cane and the functional mobility deficit can be sufficiently resolved by the use of the walker and/or cane. Pre-op Discussion Technical aspects of the procedure, risks, benefits, alternatives, expected recovery time, longevity of implants, and possible lifetime activity limits were discussed with the patient who was given the [facility] joint replacement notebook and advised to attend the joint class. All questions were answered. Informed consent was given. Patient lives in [place] 4-5 months each year and does a lot of hiking. He has previously been evaluated by Dr. Panchal and deemed a good candidate for righttotal knee arthroplasty Follow-up: After surgery documented in this encounter Plan of Treatment Upcoming Encounters Date Type Department Care Team (Late st Contact Info) Description 03/24/2024 9:00 AM EDT Office Visit Neurology - [facility] [address] [facility] [address] [place] [address] Martell Calderon MD [address] [facility] [address] [place] [address] TREMORS/ MEDICARE, FOR LIFE 03/28/2024 8:30 AM EDT Office Visit Primary Care - [address] [address] [address] [address] AWV 04/06/2024 9:45 AM EST Lab [facility] - [facility] [address] [facility] [address] [place] [address] CBCMP,CEA,FEST 04/06/2024 10:15 AM EST Office Visit [facility] - [facility] [address] [facility] [address] [place] [address] Georgi Butterfield MD [address] [place] [address] 6 MTH FU W/LABS, REV SCAN 04/13/2024 9:30 AM EST Office Visit Surgical Oncology - [facility] [address] [facility] [address] [place] [address] Delvis Cheek MD 125 [facility] 660 [place] [phone] 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 documented as of this encounter Procedures Procedure Name Priority Date/Time Associated Diagnosis Comments XR KNEE LEFT (3 VIEWS) Routine 01/22/2023 10:13 AM EDT Presence of artificial knee joint, left documented in this encounter Results * XR KNEE LEFT (3 VIEWS) (01/22/2023 10:13 AM EDT) Anatomical Region Laterality Modality Thigh, Knee, Leg Computed Radiog sharla Narrative 01/22/2023 11:01 AM EDT [01/22/2023 11:01:13 AM - MARQUISE MOSES] multiple views of the left knee reveal well aligned, well fixed knee replacement components without any issues or concerns Marquise Moses COOLER MAN - [employer] DEVICE SALES IMG DIAGNOST IC IMAGING ORDERABLES documented in this encounter Visit Diagnoses Diagnosis Presence of artificial knee joint, left- Primary Primary osteoarthritis of right knee Primary localized osteoarthrosis, lower leg documented in this encounter Additional Health Concerns Assessment Noted Time A fall risk assessment has been complete d for the patient 01/19/2023 2:33 PM EDT documented as of this encounter Care Teams Balancer Scale Relationship Specialty Start Date End Date Felicitas Monaco MD PCP - General Family Medicine 06/18/22 07/05/23 documented as of this encounter
--- OUTSIDE RECORDS SUMMARY | 2024-01-11 22:15 | XMS_ITS | Encounter Summary ---
Author Organization Jose Alejandro [facility] Address [address] [employer] [address] Care Team Providers Care Radiology Supervisor Name Role Phone Felicitas Monaco MD Primary Care Provider [phone] Reason for Visit * Reason Onset Date Comments Call Patient 03/15/2023 Encounter Details Date Type Department Care Team (Late st Contact Info) Description 03/15/2023 Telephone Orthopaedics - Emy [address] [facility] [address] [place] [address] Maurice Panchal MD [address] [facility] 17 [facility] 105 [place] [address] Call Patient Social History Tobacco [...] 9:00 AM EDT Office Visit Neurology - [facility] [address] [facility] [address] [place] [address] Martell Calderon MD [address] [facility] [address] [place] [address] TREMORS/ MEDICARE, FOR LIFE 03/28/2024 8:30 AM EDT Office Visit Primary Care - [address] [address] Cheo Santoyo DO [address] [place] [address] AWV 04/06/2024 9:45 AM EST Lab [facility] - [facility] [place] [facility] [address] [facility] [address] [place] [address] CBCMP,CEA,FEST 04/06/2024 10:15 AM EST Office Visit [facility] - [facility] [address] [facility] [address] [place] [address] Georgi Butterfield MD [address] [place] [address] 6 MTH FU W/LABS, REV SCAN 04/13/2024 9:30 AM EST Office Visit Surgical Oncology - [facility] [address] [facility] [address] [place] [address] Delvis Cheek MD 125 [facility] 660 [place] [address] 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 documented as of this encounter Visit Diagnoses Not on filedocumented in this encounter Additional Health Concerns Assessment Noted Time A fall risk assessment has been complete d for the patient 02/26/2023 9:45 AM EDT documented as of this encounter Care Teams Radiology Supervisor Relationship Specialty Start Date End Date Felicitas Monaco MD PCP - General Family Medicine 06/18/22 07/05/23 documented as of this encounter
--- OUTSIDE RECORDS SUMMARY | 2024-01-11 22:15 | XMS_ITS | Encounter Summary ---
Author Organization Jose Alejandro [facility] Address [address] [employer] [place] [address] Care Team Providers Care Registered Safety Engineer Name Role Phone Felicitas Monaco MD Primary Care Provider [phone] Reason for Referral * Eval and Treat (Routine) - Closed Specialty Diagnoses / Procedures Referred By Rachid jimenez Referred To Contact Physical Therapy Diagnoses History of right knee joint replacement Maurice Panchal MD [facility] [address] [address] PT/OT, [facility]-AT PT CT/[facility] [address] [facility] [address] Referral ID Status Reason Start Date Expiration Date V isits Requested Visits Authorized [id number] Closed Specialty Services Required 04/06/2023 10/03/2023 1 1 Scheduling Instructions [facility] Physical Therapy 5401 [facility] [id number] Question Answer Reason For External Referral? [facility] ([facility]) Comments Physical Therapy / Total Joint Protocol 1-3 x's week 1 month Encounter Details Date Type Department Care Team (Late st Contact Info) Description 04/06/2023 Orders Only Orthopaedics - [place] [id number] [phone] Maurice Panchal MD [address] [address] History of right knee joint replacement (Primary Dx) Social History Tobacco Use Types [...] Office Visit Neurology - Maryan [address]sen Dr[address] [place] [phone] Martell Calderon MD 2145 [facility] [place] [address] [place] [address] TREMORS/ MEDICARE, FOR LIFE 03/28/2024 8:30 AM EDT Office Visit Primary Care - [address] [address] Cheo Santoyo DO [facility] [place] [address] AWV 04/06/2024 9:45 AM EST Lab [facility] - [facility] [place] [address] [facility] [address] [place] [address] CBCMP,CEA,FEST 04/06/2024 10:15 AM EST Office Visit [facility] - [facility] [place] [address] [facility] [address] [place] [address] Georgi Butterfield MD [address] [place] [address] 6 MTH FU W/LABS, REV SCAN 04/13/2024 9:30 AM EST Office Visit Surgical Oncology - [facility] [place] [address] [facility] [address] [place] [address] Delvis Cheek MD 125 [facility] [address] [place] [address] 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 Scheduled Referrals Name Type Priority Associated Diagnoses Orde r Schedule RSF - [facility] Physical Therapy - [facility] Outpatient Referral Routine History of right knee joint replacement Ordered: 04/06/2023 documented as of this encounter Visit Diagnoses Diagnosis History of right knee joint replacement- Primary documented in this encounter Additional Health Concerns Assessment Noted Time A fall risk assessment has been complete d for the patient 02/26/2023 9:45 AM EDT documented as of this encounter Care Teams Registered Safety Engineer Relationship Specialty Start Date End Date Felicitas Monaco MD PCP - General Family Medicine 06/18/22 07/05/23 documented as of this encounter
--- OUTSIDE RECORDS SUMMARY | 2024-01-11 22:15 | XMS_ITS | Encounter Summary ---
Author Organization Jose Alejandro Pantoja [facility] Address [address] [place] [address] Care Team Providers Care Bilingual Hr Generalist Name Role Phone Felicitas Monaco MD Primary Care Provider [phone] Encounter Details Date Type Department Care Team (Late st Contact Info) Description 03/01/2023 Orders Only Orthopaedics - [address] [phone] Maurice Panchal MD [address] [address] Preop testing (Primary Dx) Social History Tobacco Use Types [...] 9:00 AM EDT Office Visit Neurology - [facility] [address] [facility] [address] [place] [address] Martell Calderon MD 2[address] [facility] [address] [place] [address] TREMORS/ MEDICARE, FOR LIFE 03/28/2024 8:30 AM EDT Office Visit Primary Care - [address] [address] Cheo Santoyo DO [address] [place] [address] AWV 04/06/2024 9:45 AM EST Lab [facility] - [facility] [address] [facility] [address] [place] [address] CBCMP,CEA,FEST 04/06/2024 10:15 AM EST Office Visit [facility] - [facility] [address] [facility] [address] [place] [address] Georgi Butterfield MD [address] [place] [address] 6 MTH FU W/LABS, REV SCAN 04/13/2024 9:30 AM EST Office Visit Surgical Oncology - 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 Scheduled Orders Name Type Priority Associated Diagnoses Orde r Schedule CBC Lab Routine Preop testing Expected: 03/01/2023, Expires: 03/01/2024 Comprehensive Metabolic Panel Lab Routine Preop testing Expected: 03/01/2023, Expires: 03/01/2024 documented as of this encounter Visit Diagnoses Diagnosis Preop testing- Primary Preoperative examination, unspecified documented in this encounter Additional Health Concerns Assessment Noted Time A fall risk assessment has been complete d for the patient 02/26/2023 9:45 AM EDT documented as of this encounter Care Teams Bilingual Hr Generalist Relationship Specialty Start Date End Date Felicitas Monaco MD PCP - General Family Medicine 06/18/22 07/05/23 documented as of this encounter
--- OUTSIDE RECORDS SUMMARY | 2024-01-11 22:15 | XMS_ITS | Encounter Summary ---
Author Organization [facility] Address [address] [place] [address] Care Team Providers Care Conveyor Console Operator Name Role Phone Felicitas Monaco MD Primary Care Provider [phone] Reason for Referral * Imaging (Routine) - Closed Specialty Diagnoses / Procedures Referred By Rachid jimenez Referred To Contact Radiology Diagnoses Knee deformity, acquired, right Procedures CT KNEE RIGHT WO CONTRAST Maurice Panchal MD [address] [address] Referral ID Status Reason Start Date Expiration Date Visits Re quested Visits Authorized [id number] Closed 11/27/2022 11/27/2023 1 1 Reason for Visit * Imaging (Routine) - Closed Specialty Diagnoses / Procedures Referred By Rachid jimenez Referred To Contact Radiology Diagnoses Knee deformity, acquired, right Procedures CT KNEE RIGHT WO CONTRAST Maurice Panchal MD [address] [address] Referral ID Status Reason Start Date Expiration Date Visits Re quested Visits Authorized [id number] Closed 11/27/2022 11/27/2023 1 1 Encounter Details Date Type Department Care Team (Latest Contact Info) Description 02/10/2023 12:55 PM EDT - 02/10/2023 11:59 PM EDT Hospital Encounter [facility] [address] [address] Maurice Panchal MD [address] [facility] 105 [place] [address] Knee deformity, acquired, right Discharge Disposition: Home or Self Care Social [...] Sig Dispensed Refills Start Date End Date oxyCODONE (ROXICODONE) 5 MG immediate release tabletIndications:S /P total knee arthroplasty, right Take 1 tablet by mouth every 4 hours as needed for Pain for up to 5 days. Max Daily Amount: 30 mg 30 tablet 03/17/2023 03/22/2023 acetaminophen (TYLENOL) 500 MG tablet Take 2 [...] for 30 doses 30 capsule 03/18/2023 06/04/2023 cyclobenzaprine (FLEXERIL) 10 MG tablet Take 0.5 tablets by mouth 3 times daily as needed for Muscle spasms 30 tablet 01/29/2023 07/06/2023 aspirin 81 MG EC tabletIndications:D eep Vein Thrombosis Prophylaxis Take 1 tablet by mouth 2 times daily for 60 doses Indications: Treatment to Prevent Deep Vein Thrombosis 60 tablet 12/22/2022 03/17/2023 celecoxib (CELEBREX) 200 MG capsule Take 1 capsule by mouth daily for 30 doses 30 capsule 12/23/2022 03/01/2023 acetaminophen (TYLENOL) 500 MG tablet Take 2 tablets by mouth in the morning and 2 tablets at noon and 2 tablets in the evening. 180 tablet 12/21/2022 03/17/2023 dulaglutide (TRULICITY) 1.5 MG/0.5ML SC injection 0.5 mLs 12 Adjustable Dose Pre-filled Pen Syringe 3 12/14/2022 02/12/2023 atorvastatin (LIPITOR) 40 MG tablet 1 tablet Orally Once a day for 30 day(s) 90 tablet 1 08/13/2022 02/12/2023 pantoprazole (PROTONIX) 40 MG tablet 1 tablet Orally Once a day for 30 day(s) 90 tablet 1 08/13/2022 02/12/2023 empagliflozin (JARDIANCE) 25 MG tablet Orally 90 tablet 1 08/13/2022 02/12/2023 metFORMIN (GLUCOPHAGE) 1000 MG tablet 1 tablet with a meal Orally bid 180 tablet 1 08/13/2022 02/12/2023 olmesartan (BENICAR) 20 MG tablet Take 1 tablet by mouth daily 1/2 tablet daily 90 tablet 1 08/13/2022 02/12/2023 Ondansetron HCl (ZOFRAN PO) Take 1 tablet [...] Office Visit Neurology - [address] [facility] [address] [place] [address] Martell Calderon MD 2144 [facility] [address] [place], [place] [address] TREMORS/ MEDICARE, FOR LIFE 03/28/2024 8:30 AM EDT Office Visit Primary Care - [facility] [address] [place] [address] Cheo Santoyo DO 1112 [place] [address] AWV 04/06/2024 9:45 AM EST Lab [facility] - [facility] 2084 [facility] [address] [place] [address] CBCMP,CEA,FEST 04/06/2024 10:15 AM EST Office Visit [facility] - [facility] 2084 [facility] [address] [place] [address] Georgi Butterfield MD 3510 [facility] 17N [facility] 225 [place], [place] [phone] 6 MTH FU W/LABS, REV SCAN 04/13/2024 9:30 AM EST Office Visit Surgical Oncology - [facility] 2084 [facility] [address] [place] [address] Delvis Cheek MD 125 [facility] 660 [place] [address] 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 documented as of this encounter Procedures Procedure Name Priority Date/Time Associated Diagnosis Comments CT KNEE RIGHT WO CONTRAST Routine 02/10/2023 1:36 PM EDT Knee deformity, acquired, right documented in this encounter Results * CT KNEE RIGHT WO CONTRAST (02/10/2023 1:36 PM EDT) Anatomical Region Laterality Modality Thigh, Knee, Leg Computed Tomogr aphy 02/10/2023 4:22 PM EDT Impressions 02/10/2023 4:23 PM EDT Severe tricompartment degenerative change of the knee. Images performed for preoperative planning. Narrative 02/10/2023 4:[address] right knee without contrast: 02/10/23 INDICATION: evaluate joint deformity for surgery with Daxa Hugo. COMPARISON: 08/20/2022 TECHNIQUE: Axial CT images of the right knee, right hip, and right ankle. Images performed for preoperative planning. CT scanning was performed using the radiation dose reduction technique when appropriate, per system protocols. FINDINGS: Severe tricompartment degenerative change of the knee. No acute fracture or dislocation. No concerning intraosseous lesions. Moderate size knee joint effusion. No sizable osseous loose body. Mild degenerative change of the hips. No bowel obstruction. No pelvic or inguinal lymphadenopathy. Procedure Note Elsi Man MD - 02/10/2023 CT right knee without contrast: 02/10/23 INDICATION: evaluate joint deformity for surgery with [place] Hugo. COMPARISON: 08/20/2022 TECHNIQUE: Axial CT images of the right knee, right hip, and right ankle.Images performed for preoperative planning. CT scanning was performed using the radiation dose reduction technique when appropriate, per systemprotocols. FINDINGS: Severe tricompartment degenerative change of the knee. No acute fracture or dislocation. No concerning intraosseous lesions. Moderate sizeknee joint effusion. No sizable osseous loose body. Mild degenerative change ofthe hips. No bowel obstruction. No pelvic or inguinal lymphadenopathy. IMPRESSION: Severe tricompartment degenerative change of the knee. Images performedfor preoperative planning. Maurice Panchal MD IMG CT ORDERABLES documented in this encounter Visit Diagnoses Diagnosis Knee deformity, acquired, right documented in this encounter Additional Health Concerns Assessment Noted Time A fall risk assessment has been complete d for the patient 01/19/2023 2:33 PM EDT documented as of this encounter Care Teams Conveyor Console Operator Relationship Specialty Start Date End Date Felicitas Monaco MD PCP - General Family Medicine 06/18/22 07/05/23 documented as of this encounter
--- OUTSIDE RECORDS SUMMARY | 2024-01-11 22:15 | XMS_ITS | Encounter Summary ---
Author Organization Jose Alejandro [facility] Address [address] [place] [address] Care Ct Scan Special Procedures Technologist Name Role Phone Felicitas Monaco MD Primary Care Provider [phone] Reason for Visit * Reason Onset Date Comments Medication Refill 02/12/2023 Encounter Details Date Type Department Care Team (Late st Contact Info) Description 02/12/2023 Refill Primary Care - [address] - [address] [place] [address] Felicitas Monaco MD [address] [place] [address] Medication Refill Social History Tobacco Use Types [...] Neurology - [facility] 2144 [facility] [address] [place] [address] Martell Calderon MD 2144 [facility] [address] [place] [address] TREMORS/ MEDICARE, FOR LIFE 03/28/2024 8:30 AM EDT Office Visit Primary Care - [address] [address] Cheo Santoyo DO [address] [place] [address] AWV 04/06/2024 9:45 AM EST Lab [facility] - [facility] 2084 [facility] [address] [place] [address] CBCMP,CEA,FEST 04/06/2024 10:15 AM EST Office Visit [facility] - [facility] 2084 [facility] [address] [place] [address] Georgi Butterfield MD [address] [place] [address] 6 MTH FU W/LABS, REV SCAN 04/13/2024 9:30 AM EST Office Visit Surgical Oncology - [facility] 2084 [facility] [address] [place] [address] Delvis Cheek MD 125 [facility] 660 [place] [address] 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 documented as of this encounter Visit Diagnoses Not on filedocumented in this encounter Additional Health Concerns Assessment Noted Time A fall risk assessment has been complete d for the patient 01/19/2023 2:33 PM EDT documented as of this encounter Care Teams Ct Scan Special Procedures Technologist Relationship Specialty Start Date End Date Felicitas Monaco MD PCP - General Family Medicine 06/18/22 07/05/23 documented as of this encounter
--- OUTSIDE RECORDS SUMMARY | 2024-01-11 22:15 | XMS_ITS | Encounter Summary ---
Author Organization Jose Alejandro Raymundolinnea [facility] Address [address] [place] [address] Care Team Providers Care Stummel Selector Name Role Phone Felicitas Monaco MD Primary Care Provider [phone] Encounter Details Date Type Department Care Team (Late st Contact Info) Description 03/04/2023 Orders Only Primary Care - [address] - [address] [place] [address] Felicitas Monaco MD 203 [place] [address] Mixed hyperlipidemia; Well controlled diabetes mellitus (HCC); Type 2 diabetes mellitus without complication, without long-term current use of insulin (HCC); Need for hepatitis C screening test Social History Tobacco Use Types Packs/Day Years [...] Neurology - [facility] 2144 [facility] [address] [place] [address] Martell Calderon MD 2144 [facility] [address] [place], [place] [phone] TREMORS/ MEDICARE, FOR LIFE 03/28/2024 8:30 AM EDT Office Visit Primary Care - [address] [phone] Cheo Santoyo, [address] [address] AWV 04/06/2024 9:45 AM EST Lab [facility] - [facility] 2084 [facility] [address] [place] [address] CBCMP,CEA,FEST 04/06/2024 10:15 AM EST Office Visit [facility] - [facility] 2084 [facility] [address] [place] [address] Georgi Butterfield MD [address] [place] [address] 6 MTH FU W/LABS, REV SCAN 04/13/2024 9:30 AM EST [facility] 2084 [facility] [address] [place] [address] Delvis Cheek MD 125 [facility] 660 [place] [address] 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 documented as of this encounter Procedures Procedure Name Priority Date/Time Associated Diagnosis Comments HEPATITIS C ANTIBODY Routine 03/04/2023 1:05 PM EDT Need for hepatitis C screening test CBC Routine 03/04/2023 1:05 PM EDT Type 2 diabetes mellitus without complication, without long-term current use of insulin (HCC) HEMOGLOBIN A1C Routine 03/04/2023 1:05 PM EDT Well controlled diabetes mellitus (HCC) LIPID PANEL Routine 03/04/2023 1:05 PM EDT Mixed hyperlipidemia COMPREHENSIVE METABOLIC PANEL Routine 03/04/2023 1:05 PM EDT Type 2 diabetes mellitus without complication, without long-term current use of insulin (HCC) documented in this encounter Results * (ABNORMAL) Comprehensive Metabolic Panel (03/04/2023 1:05 PM EDT) Sodium 138 135 - 145 mmol/L [facility] Potassium 5.1 3.5 - 5.3 mmol/L [facility] Chloride 101 98 - 107 mmol/L [facility] CO2 27 22 - 29 mmol/L [facility] Glucose 141(H) 70 - 99 mg/dL [facility] BUN 20 8 - 23 mg/dL [facility] Creatinine 1.2 0.7 - 1.3 mg/dL [facility] Anion Gap 10 2 - 17 mmol/L [facility] Osmolaliy Calculated 280 270 - 287 mOsm/kg [facility] Calcium 10.4(H) 8.8 - 10.2 mg/dL [facility] Total Protein 6.8 6.4 - 8.3 g/dL [facility] Albumin 4.6 3.5 - 5.2 g/dL [facility] Globulin 2.2 1.9 - 4.4 g/dL [facility] Albumin/Globulin Ratio 2.10 1.00 - 2.70 [facility] Total Bilirubin 0.56 0.00 - 1.20 mg/dL [facility] Alk Phosphatase 91 40 - 130 unit/L [facility] AST 19 0 - 50 unit/L [facility] ALT 26 0 - 50 unit/L [facility] Est, Glom Filt Rate 67 >=60 mL/min/1.7 3m?? [facility] Comment: [...] in adults. Blood BLOOD SPECIMEN / Unknown 03/04/2023 1:05 PM EDT 03/04/2023 4:03 PM EDT Felicitas Monaco MD CHEMISTRY ORDERABLE S Performing Organization Address City/State/[facility] Co de Phone Number [facility] [address] [facility] [place] [address] * CBC (03/04/2023 1:05 PM EDT) WBC 6.6 3.8 - 10.6 x10e3/mcL [facility] RBC 5.24 4.00 - 5.60 x10e6/mcL [facility] Hemoglobin 16.3 13.0 - 17.3 g/dL [facility] Hematocrit 48.8 38.0 - 52.0 % [facility] MCV 93.1 84.0 - 100.0 fL [facility] MCH 31.1 27.0 - 34.5 pg [facility] MCHC 33.4 32.0 - 36.0 g/dL [facility] RDW 13.0 11.0 - 16.0 % [facility] Platelets 299 140 - 440 x10e3/mcL [facility] MPV 9.9 7.2 - 13.2 fL [facility] NRBC Automated 0.0 0.0 - 0.2 % [facility] NRBC Absolute 0.000 0.000 - 0.012 x10e3/mcL [facility] Blood BLOOD SPECIMEN / Unknown 03/04/2023 1:05 PM EDT 03/04/2023 4:03 PM EDT Felicitas Monaco MD HEMATOLOGY ORDERABL ES Performing Organization Address [facility] de Phone Number [facility] [address] [place] [address] * Hepatitis C Antibody (03/04/2023 1:05 PM EDT) Hepatitis C Ab Negative Negative [facility] Blood BLOOD SPECIMEN / Unknown 03/04/2023 1:05 PM EDT 03/04/2023 4:05 PM EDT Felicitas Monaco MD IMMUNOLOGY ORDERABL ES Performing Organization Address [facility] de Phone Number [facility] [address] [place] [address] * (ABNORMAL) Hemoglobin A1C (03/04/2023 1:05 PM EDT) Hemoglobin A1C 6.5(H) 4.0 - 6.0 % [facility] Comment: HEMOGLOBIN A1C [...] ? Inadequate Control Est. Avg. Glucose, WB 140 [facility] Est. Avg. Glucose-calculated 154 [facility] Blood BLOOD SPECIMEN / Unknown 03/04/2023 1:05 PM EDT 03/04/2023 4:05 PM EDT Felicitas Monaco MD CHEMISTRY ORDERABLE S [facility] [address] [facility], [place] [address] * Lipid Panel (03/04/2023 1:05 PM EDT) Cholesterol 115 100 - 200 mg/dL [facility] Comment: The National Cholesterol Education Program has published reference cholesterol values for cardiovascular risk to be: Less than 200 mg/dL ? = Low Risk 200 to 239 mg/dL ?= Borderline Risk 240mg/dL and greater ?= High Risk HDL 40 >=40 mg/dL [facility] Comment: The National Lipid Association and the National Cholesterol Education Program (NCEP) have set the guidelines for high-density lipoprotein (HDL) cholesterol in adults ages 18 and up. Triglycerides 90 0 - 149 mg/dL [facility] Comment: TRIGLYCERIDE INTERPRETATION: [...] MD CHEMISTRY ORDERABLE S Performing Organization Address City/State/[facility] Co de Phone Number [facility] [address] [facility] A [place] [phone] documented in this encounter Visit Diagnoses Diagnosis Mixed hyperlipidemia Well controlled diabetes mellitus (HCC) Type 2 diabetes mellitus without complication, without long-term current use of insulin (HCC) Need for hepatitis C screening test Special screening examination for other specified viral diseases documented in this encounter Additional Health Concerns Assessment Noted Time A fall risk assessment has been complete d for the patient 02/26/2023 9:45 AM EDT documented as of this encounter Care Teams Stummel Selector Relationship Specialty Start Date End Date Felicitas Monaco MD PCP - General Family Medicine 06/18/22 07/05/23 documented as of this encounter
--- OUTSIDE RECORDS SUMMARY | 2024-01-11 22:15 | XMS_ITS | Encounter Summary ---
Author Organization Jose Alejandro [facility]olinnea [facility] Address [address] [place] [address] Care Team Providers Care Dance Director Name Role Phone Felicitas Monaco MD Primary Care Provider [phone] Encounter Details Date Type Department Care Team (Latest Contact Info) Description 12/21/2022 Travel Social History Tobacco Use Types Packs/Day Years Used Date Smoking Tobacco: Former Cigarettes 1 27 0 05/31/1969 - 05/31/1996 Smokeless Tobacco: Never Alcohol Use Standard Drinks/Week Comments Yes 4 (1 standard drink = 0.6 oz pur e alcohol) PHQ-2 Answer Date Recorded PHQ-9 Total Score 0 09/21/2022 Sex and Gender Information Value Date Recorded Sex Assigned at Not on file Gender Identity Not on file Sexual Orientation Not on file documented as of this encounter Plan of Treatment Upcoming Encounters Date Type Department Care Team (Late st Contact Info) Description 03/24/2024 9:00 AM EDT Office Visit Neurology - Mary[address] Dr[address] [place] [address] Martell Calderon MD [address] [place] [address] TREMORS/ MEDICARE, FOR LIFE 03/28/2024 8:30 AM EDT Office Visit Primary Care - [address] [address] Cheo Santoyo DO [facility] [place] [address] AWV 04/06/2024 9:45 AM EST Lab [facility] - [facility] 2084 [facility] [address] [place] [address] CBCMP,CEA,FEST 04/06/2024 10:15 AM EST Office Visit [facility] - [facility] [address] [facility] [address] [place] [address] Georgi Butterfield MD [address] [place], [place] [phone] 6 MTH FU W/LABS, REV SCAN 04/13/2024 9:30 AM EST Office Visit Surgical Oncology - [facility] 2084 [facility] [address] [place] [address] Delvis Cheek MD 125 [facility] 660 [place] [address] 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 documented as of this encounter Visit Diagnoses Not on filedocumented in this encounter Care Teams Dance Director Relationship Specialty Start Date End Date Felicitas Monaco MD PCP - General Family Medicine 06/18/22 07/05/23 documented as of this encounter
--- OUTSIDE RECORDS SUMMARY | 2024-01-11 22:15 | XMS_ITS | Encounter Summary ---
Author Organization Jose Alejandro Pantoja [facility] Address [address] [place] [address] Care Team Providers Care Sugar Reprocess Operator Head Name Role Phone Felicitas Monaco MD Primary Care Provider [phone] Reason for Visit * Reason Onset Date Comments Other 03/01/2023 Encounter Details Date Type Department Care Team (Late st Contact Info) Description 03/01/2023 Telephone Orthopaedics - [address] - [facility] [[email or web address] [address] [place] [address] Maurice Panchal MD [address] [place] [address] Other Social History Tobacco Use Types Packs/Day [...] AM EDT Office Visit Neurology - [facility] 2[address] [facility] [address] [place] [address] Martell Calderon MD 2144 [facility] [address] [place] [address] TREMORS/ MEDICARE, FOR LIFE 03/28/2024 8:30 AM EDT Office Visit Primary Care - [address] [address] Cheo Santoyo DO [address] [place] [address] AWV 04/06/2024 9:45 AM EST Lab [facility] - [facility] 2084 [facility] [address] [place] [address] CBCMP,CEA,FEST 04/06/2024 10:15 AM EST Office Visit [facility] - [facility] 20[address] [facility] [address] [place] [address] Georgi Butterfield MD [address] [place] [address] 6 MTH FU W/LABS, REV SCAN 04/13/2024 9:30 AM EST Office Visit Surgical Oncology - [facility] 2084 [facility] [address] [place] [address] Delvis Cheek MD 125 [facility] 660 [place] [address] 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 documented as of this encounter Visit Diagnoses Not on filedocumented in this encounter Additional Health Concerns Assessment Noted Time A fall risk assessment has been complete d for the patient 02/26/2023 9:45 AM EDT documented as of this encounter Care Teams Sugar Reprocess Operator Head Relationship Specialty Start Date End Date Felicitas Monaco MD PCP - General Family Medicine 06/18/22 07/05/23 documented as of this encounter
--- OUTSIDE RECORDS SUMMARY | 2024-01-11 22:15 | XMS_ITS | Encounter Summary ---
Author Organization [facility] Address [address] [place] [address] Care Team Providers Care Dental Aide Name Role Phone Fleicitas Monaco MD Primary Care Provider [phone] Reason for Visit * Reason Onset Date Comments Medication Refill 02/12/2023 Encounter Details Date Type Department Care Team (Late st Contact Info) Description 02/12/2023 Refill Primary Care - [address] - [address] [place] [address] Felicitas Monaco MD [address] [place] [phone] Medication Refill Social History Tobacco Use [...] Neurology - [facility] [address] [facility] [address] [place] [phone] Martell Calderon MD [address] [facility] [address] [place] [address] TREMORS/ MEDICARE, FOR LIFE 03/28/2024 8:30 AM EDT Office Visit Primary Care - [address] [address] Cheo Santoyo DO [address] [place] [phone] AWV 04/06/2024 9:45 AM EST Lab [facility] - [facility] [address] [facility] [address] [place] [address] CBCMP,CEA,FEST 04/06/2024 10:15 AM EST Office Visit [facility] - [facility] [address] [facility] [address] [place] [address] Georgi Butterfield MD [address] [place] [address] 6 MTH FU W/LABS, REV SCAN 04/13/2024 9:30 AM EST Office Visit Surgical Oncology - [facility] [address] [facility] [address] [place] [address] Delvis Cheek MD [address] [facility] [address] [place] [address] 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 06/19/2024 10:30 AM EST Office Visit Orthopaedics- Les Valencia [address] [facility] 100 [place] [phone] Karly Bautista, PA [address] [facility] 301 [place] [phone] annual visit from date of surgery May/Jul 2024 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 documented as of this encounter Visit Diagnoses Not on filedocumented in this encounter Additional Health Concerns Assessment Noted Time A fall risk assessment has been complete d for the patient 01/19/2023 2:33 PM EDT documented as of this encounter Care Teams Dental Aide Relationship Specialty Start Date End Date Felicitas Monaco MD PCP - General Family Medicine 06/18/22 07/05/23 documented as of this encounter
--- OUTSIDE RECORDS SUMMARY | 2024-01-11 22:15 | XMS_ITS | Encounter Summary ---
Author Organization [facility] Address [address] [place] [address] Care Team Providers Care Higher Education Administrator Name Role Phone Felicitas Monaco MD Primary Care Provider [phone] Reason for Visit * Auth/Cert (Routine) Specialty Diagnoses / Procedures Referred By Rachid jimenez Referred To Contact Diagnoses Primary osteoarthritis of right knee Primary osteoarthritis of right knee [M17.11] Procedures GA ARTHRP KNE CONDYLE&PLATU MEDIAL&LAT COMPARTMENTS RIGHT TOTAL KNEE ARTHROPLASTY, ROBOTIC Maurice Panchal MD [facility] [address] [address] Referral ID Status Reason Start Date Expiration Date Visits Re quested Visits Authorized [id number] 1 1 Encounter Details Date Type Department Care Team (Late st Contact Info) Description 03/17/2023 9:16 AM EDT Anesthesia Event RMP SURGERY [address] [facility] [address] [place], [place] [id number] René Quintero MD [address] [address] Grant Lopez AA [address] [address] Anesthesia Record Procedure Summary Procedure Name Responsible Anesthesiologist Anesthesia Start Time Anesthesia Stop Time RIGHT TOTAL KNEE ARTHROPLASTY, ROBOTIC (Right: Knee) René Quintero MD 03/17/23 0916 03/17/23 1039 Events Date Time Event Comment 03/17/2023 0916 An Start Location: {AN S tart Location:[id number]} 0916 An Start Data 0916 Case on Time Start? First ca se of the day? No On Time Start? N/A If No, Delay due to: {MH AN CASE ON TIME:[id number]} 0922 Block Placed 0924 Anesthesia Ready 30 0941 Incision 1034 an stop data 1038 Handoff to RN Vital signs ar e within acceptable limits and stable, SBAR handoff/transfer of care to RN. Patient Handoff Status: Level of Response: Drowsy Oxygen device: Oxygen mask Airway Status: Patent BP: 100/63 Pulse: 80 SpO2: 97% Respirations: 10 Temp: 36.0 Temp Source: temporal Disposition: PACU PACU Checklist: Identification of patient;Identification of responsible practitioner (PACU Nurse or advanced practitioner);Discussion of the surgical/procedure course (procedure, reason for surgery, procedure performed);Discussion of pertinent medical history;Intraoperative anesthetic management and issues/concerns;Expectations/plans for the early post-procedure period;Opportunity for questions and acknowledgement of understanding of report from the receiving PACU team 1039 An Stop Meds Name Total propofol 200 MG/20ML 456.48 mg fentaNYL (SUBLIMAZE) injection 100 mcg ropivacaine (NAROPIN) injection 0.2% 20 mL midazolam (VERSED) injection 2 mg/2mL 2 mg tranexamic acid (CYKLOKAPRON) 1,900 mg i n sodium chloride 0.9 % 100 mL IVPB 1,900 mg ceFAZolin (ANCEF) 2,000 mg in sodium chl oride 0.9 % 100 mL IVPB (mini-bag) 2,000 mg dexamethasone 4 MG/ML 8 mg ondansetron 4 MG/2ML 4 mg bupivacaine (MARCAINE) PF injection 0.5% 10 mg phenylephrine 1 MG/10ML 600 mcg lactated ringers IV soln infusion 900 mL * Agents Name O2 N2O Air Inspired N2O N2O * Blood No blood administrations on file. Lines, Drains, and Airways Type Details Placement Removal Peripheral IV Placement date 03/17; Placement time 821; Size 20 g; Orientation Left, Posterior; Location Hand; Removal date 03/20/23; Removal time 01303/17/23 0822 by Karissa Mendieta RN 03/20/23 0136 by Discharge Provider, Automatic documented in this encounter Social History Tobacco [...] Dr. [address] [place] [address] Martell Calderon MD [address] [facility] [address] [place] [address] TREMORS/ MEDICARE, FOR LIFE 03/28/2024 8:30 AM EDT Office Visit Primary Care - [address] [address] Cheo Santoyo DO [address] [place] [phone] AWV 04/06/2024 9:45 AM EST Lab [facility] - [facility] [address] [facility] [address] [place] [phone] CBCMP,CEA,FEST 04/06/2024 10:15 AM EST Office Visit [facility] - [facility] [address] [facility] [address] [place] [phone] Georgi Butterfield MD [address] [place], [place] [phone] 6 MTH FU W/LABS, REV SCAN 04/13/2024 9:30 AM EST Office Visit Surgical Oncology - [facility] [address] [facility] [address] [place] [phone] Delvis Cheek MD 125 [facility] 660 [place] [address] 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 06/19/2024 10:30 AM EST Office Visit Orthopaedics- Les Valencia [address] [facility] [address] [place] [address] Karly Bautista PA [address] [place] [address] annual visit from date of surgery May/Jul 2024 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 documented as of this encounter Procedures Procedure Name Priority Date/Time Associated Diagnosis Comments ANESTHESIA SPINAL BLOCK Routine 03/17/2023 9:20 AM EDT HC PERIPHERAL BLOCK - FEMORAL CONTINUOUS W/IMG GDN Routine 03/17/2023 8:25 AM EDT documented in this encounter Results * Spinal Block (03/17/2023 9:20 AM EDT) Narrative Grant Lopez AA - 03/17/2023 9:20 AM EDT Grant Lopez AA ? 03/17/2023 ??9:37 AM Spinal Block Patient location during procedure: OR End time: 03/17/2023 9:22 AM Reason for block: primary anesthetic Staffing Performed: resident/CREASING MACHINE OPERATOR Anesthesiologist: René Quintero MD Resident/CREASING MACHINE OPERATOR: Grant Lopez AA Performed by: Grant Lopez AA Authorized by: René Quintero MD ?? Spinal Block Patient position: sitting Prep: Betadine Patient monitoring: continuous pulse ox and oxygen Approach: midline Location: L4/L5 Provider prep: mask and sterile gloves Local infiltration: lidocaine Needle Needle type: pencil-tip Needle gauge: 24 G Needle length: 4 in Assessment Events: cerebrospinal fluid Swirl obtained: Yes CSF: clear Attempts: 1 Hemodynamics: stable Additional Notes Patient sitting for spinal. Sterile lumbar prep, drape, and glove maintained. 1% lidocaine local anesthesia infiltration. Spinal as above. CSF obtained. No heme appreciated. Intrathecal injection without parasthesia or resistance. Spinal needle removed without issue. Patient repositioned supine, arms < 90 degrees, head and neck supported and all pressure points padded. Preanesthetic Checklist Completed: patient identified, IV checked, site marked, risks and benefits discussed, surgical/procedural consents, equipment checked, pre-op evaluation, timeout performed, anesthesia consent given, oxygen available and monitors applied/VS acknowledged René Quintero MD ANESTHESIA ORDERABLE S * HC PERIPHERAL BLOCK - FEMORAL CONTINUOUS W/IMG GDN (03/17/2023 8:25 AM EDT) Narrative Eren Carlos MD - 03/17/2023 8:25 AM EDT rEen Carlos MD ? 03/17/2023 ??8:38 AM Peripheral Block Patient location during procedure: pre-op Reason for block: procedure for pain, post-op pain management and at surgeon's request Start time: 03/17/2023 8:25 AM End time: 03/17/2023 8:32 AM Staffing Performed: anesthesiologist Anesthesiologist: Eren Carlos MD Performed by: Eren Carlos MD Authorized by: Eren Carlos MD ?? Preanesthetic Checklist Completed: patient identified, IV checked, site marked, risks and benefits discussed, surgical/procedural consents, equipment checked, pre-op evaluation, timeout performed, anesthesia consent given, oxygen available and monitors applied/VS acknowledged Peripheral Block Patient position: supine Prep: ChloraPrep Provider prep: mask and sterile gloves Patient monitoring: continuous pulse ox, IV access, oxygen and responsive to questions Block type: Femoral Adductor canal Laterality: right Injection technique: catheter and single-shot Guidance: ultrasound guided Local infiltration: lidocaine Infiltration strength: 2 % Local infiltration: lidocaine Dose: 5 mL Needle Needle type: Tuohy Needle gauge: 17 G Needle localization: anatomical landmarks and ultrasound guidance Catheter type: open end Catheter size: 19 G Needle length: 8 cm Assessment Injection assessment: negative aspiration for heme, no paresthesia on injection, local visualized surrounding nerve on ultrasound and no intravascular symptoms Paresthesia pain: none Slow fractionated injection: yes Hemodynamics: stable Real-time US image taken/store: yes Outcomes: uncomplicated and patient tolerated procedure well Additional Notes The surgeon has consulted the department of regional anesthesia to place a peripheral nerve block for post-operative pain management for this patient. If a PNB catheter is placed, infusion is anticipated for up to 72 hours post-operatively unless otherwise discussed. Prior to the above procedure, the alternatives, risks, side effects, and potential complications (including anesthetic toxicity, seizures, , temporary and/or permanent nerve injury, and loss of extremity function) of the planned single injection and/or continuous peripheral nerve block. All were thoroughly discussed, and the patient and/or guardian acknowledge and accept all risks of the planned procedure. Block completed under direct U/S guidance. Frequent negative aspiration during injection. No pain on injection, low injection pressure, no paresthesia, no evidence of hematoma, and no other complications unless otherwise noted. PERFORMED BLOCKS: FEMORAL/ADDUCTOR CANAL PERIPHERAL NERVE CATHETER PLACEMENT AND SINGLE-SHOT FEMORAL/ADDUCTOR CANAL NERVE BLOCK Medications Administered fentaNYL (SUBLIMAZE) injection - IntraVENous 100 mcg - 03/17/2023 8:25:00 AM midazolam (VERSED) injection 2 mg/2mL - IntraVENous 2 mg - 03/17/2023 8:25:00 AM ropivacaine (NAROPIN) injection 0.2% - Perineural 20 mL - 03/17/2023 8:28:00 AM Eren Carlos MD ANESTHESIA ORDERA BLES documented in this encounter Visit Diagnoses Not on filedocumented in this encounter Administered Medications Inactive Administered Medications - up to 3 most recent administrations Medication Order MAR Action Action Date Dose Rate Site bupivacaine (PF) (MARCAINE) 0.5 % injection Intrathecal, Starting on Wed03/17/23 at 0922, Until Wed03/17/23 at 0922, Intra-op Given 03/17/2023 9:22 AM EDT 10 mg ceFAZolin (ANCEF) 2,000 mg in sodium chloride 0.9 % 100 mL IVPB (mini-bag) 2,000 mg, IntraVENous, NUMERICAL ANALYSIS GROUP MANAGER TO O.R., 1 dose, On Wed03/17/23 at 0800, Antimicrobial Indications: Surgical Prophylaxis, Administer within 1 hour prior to incision. Recommend to repeat in 3-4 hours after initial dose if still intra-op., Pre-op (day of surgery) New Bag 03/17/2023 9:16 AM EDT 2,000 mg dexamethasone (DECADRON) injection IntraVENous, PRN, Starting on Wed03/17/23 at 0940, Until Wed03/17/23 at 1039, Intra-op Given 03/17/2023 9:40 AM EDT 8 mg fentaNYL (SUBLIMAZE) injection IntraVENous, Starting on Wed03/17/23 at 0825, Until Wed03/17/23 at 0825, Intra-op Given 03/17/2023 8:25 AM EDT 100 mcg lactated ringers IV soln infusion IntraVENous, at 50 mL/hr, CONTINUOUS, Starting on Wed03/17/23 at 0800, Preoperative use ONLY for NON-DIALYSIS patients, Pre-op (day of surgery), Routine Restarted 03/17/2023 10:27 AM EDT NoRateChange 03/17/2023 9:16 AM EDT 50 mL/hr New Bag 03/17/2023 8:23 AM EDT 50 mL/hr midazolam (VERSED) injection IntraVENous, Starting on Wed03/17/23 at 0825, Until Wed03/17/23 at 0825, Intra-op Given 03/17/2023 8:25 AM EDT 2 mg ondansetron (ZOFRAN) injection IntraVENous, PRN, Starting on Wed03/17/23 at 0940, Until Wed03/17/23 at 1039, Intra-op Given 03/17/2023 9:40 AM EDT 4 mg phenylephrine (BRODERICK-SYNEPHRINE) 1 MG/10ML prefilled syringe (Push Dose) IntraVENous, PRN, Starting on Wed03/17/23 at 1011, Until Wed03/17/23 at 1039, Intra-op Given 03/17/2023 10:26 AM EDT 200 mcg Given 03/17/2023 10:16 AM EDT 200 mcg Given 03/17/2023 10:11 AM EDT 100 mcg propofol infusion IntraVENous, CONTINUOUS PRN, Starting on Wed03/17/23 at 0924, Until Wed03/17/23 at 1039, Intra-op Rate/Dose Change 03/17/2023 10:16 AM EDT 60 mcg/kg/min 34.596 mL/hr Rate/Dose Change 03/17/2023 10:03 AM EDT 70 mcg/kg/min 40. 362 mL/hr New Bag 03/17/2023 9:24 AM EDT 80 mcg/kg/min 46.128 mL/ hr ropivacaine (NAROPIN) 0.2% injection 0.2% Perineural, Starting on Wed03/17/23 at 0828, Until Wed03/17/23 at 0828, Intra-op Given 03/17/2023 8:28 AM EDT 20 mLs tranexamic acid (CYKLOKAPRON) 1,900 mg in sodium chloride 0.9 % 100 mL IVPB 1,900 mg, IntraVENous, at 400 mL/hr, Administer over 15 Minutes, NUMERICAL ANALYSIS GROUP MANAGER TO O.R., On Wed03/17/23 at 0800, For 1 dose, One time dose for unilateral Total Hip or Knee Arthroplasty. To be administered by anesthesia staff after induction of anesthesia following antibiotic but prior to incision, Pre-op (day of surgery) New Bag 03/17/2023 9:26 AM EDT 1,900 mg documented in this encounter Additional Health Concerns Assessment Noted Time A fall risk assessment has been complete d for the patient 02/26/2023 9:45 AM EDT documented as of this encounter Care Teams Higher Education Administrator Relationship Specialty Start Date End Date Felicitas Monaco MD PCP - General Family Medicine 06/18/22 07/05/23 documented as of this encounter
--- OUTSIDE RECORDS SUMMARY | 2024-01-11 22:15 | XMS_ITS | Encounter Summary ---
Author Organization [facility] Alejandro [facility] Address [address] [place] [address] Care Team Providers Care Superior Court Judge Name Role Phone Felicitas Monaco MD Primary Care Provider [phone] Reason for Visit * Reason Comments Medicare AWV Encounter Details Date Type Department Care Team (Late st Contact Info) Description 03/01/2023 11:00 AM EDT Office Visit Primary Care - [address] - [address] [place] [address] Felicitas Monaco MD [address] [place] [phone] Medicare annual wellness visit, subsequent (Primary Dx); Well controlled diabetes mellitus (HCC); Mixed hyperlipidemia Social History Tobacco Use Types Packs/Day Years [...] Sign Reading Time Taken Comments Blood Pressure 118/74 03/01/2023 10:48 AM EDT Pulse 89 03/01/2023 10:48 AM EDT Temperature - - Respiratory Rate - - Oxygen Saturation 96% 03/01/2023 10:48 AM EDT Inhaled Oxygen Concentration - - Weight 96.8 kg (213 lb 5 oz) 03/01/2023 10:48 AM EDT Height 180.3 cm (5' 11) 03/01/2023 10:48 AM EDT Body Mass Index 29.75 03/01/2023 10:48 AM EDT documented in this encounter Patient Instructions * Patient Instructions* Felicitas Monaco MD - 03/01/2023 10:54 AM EDT Images from the original note were not included. Fatigue: Care Instructions Your Care Instructions Fatigue is a feeling of tiredness, exhaustion, or lack of energy. You may feel fatigue because of too much or not enough activity. It can also come from stress, lack of sleep, boredom, and poor diet.Many medical problems, such as viral infections, can cause fatigue. Emotional problems, especially depression, are often the cause of fatigue. Fatigue is most often a symptom of another problem. Treatment for fatigue depends on the cause. Forexample, if you have fatigue because you have a certain health problem, treating this problem also treats your fatigue. If depression or anxiety is the cause, treatment may help. Follow-up care is a olmstead part of your treatment and safety. Be sure to make and go to all appointments, and call your doctor if you are having problems. It's also a good idea to know your test resultsand keep a list of the medicines you take. How can you care for yourself at home? Get regular exercise. But don't overdo it. Go back and forth between rest and exercise. Get plenty of rest. Eat a healthy diet. Do not skip meals, especially breakfast. Reduce your use of caffeine, tobacco, and alcohol. Caffeine is most often found in coffee, tea, cola drinks, and chocolate. Limit medicines that can cause fatigue. This includes tranquilizers and cold and allergy medicines. When should you call for help? Watch closely for changes in your health, and be sure to contact your doctor if: ?? You have new symptoms such as fever or a rash. ?? Your fatigue gets worse. ?? You have been feeling down, depressed, or hopeless. Or you may have lost interest in things thatyou usually enjoy. ?? You are not getting better as expected. Where can you learn more? Go to https://www.SwypeShield.net/patientEd and enter W864 to learn more about Fatigue: Care Instructions. Current as of: November 22, 2022?Content Version: 13.8 ?? [employer]. Care instructions adapted under license by [employer]. If you have questions about a medical condition or this instruction, always ask your healthcare professional. [employer] disclaims any warranty or liability for your use of this information. Hearing Loss: Care Instructions Overview Hearing loss is a sudden or slow decrease in how well you hear. It can range from slight to profound. Permanent hearing loss can occur with aging. It also can happen when you are exposed long-term toloud noise. Examples include listening to loud music, riding motorcycles, or being around other loud machines. Hearing loss can affect your work and home life. It can make you feel lonely or depressed. You may feel that you have lost your independence. But hearing aids and other devices can help you hear better and feel connected to others. Follow-up care is a olmstead part of your treatment and safety. Be sure to make and go to all appointments, and call your doctor if you are having problems. It's also a good idea to know your test resultsand keep a list of the medicines you take. How can you care for yourself at home? Avoid loud noises whenever possible. This helps keep your hearing from getting worse. Always wear hearing protection around loud noises. Wear a hearing aid as directed. A professional can help you pick a hearing aid that will work best for you. You can also get hearing aids over the counter for mild to moderate hearing loss. Have hearing tests as your doctor suggests. They can show whether your hearing has changed. Your hearing aid may need to be adjusted. Use other devices as needed. These may include: Telephone amplifiers and hearing aids that can connect to a television, stereo, radio, or microphone. Devices that use lights or vibrations. These alert you to the doorbell, a ringing telephone, or a baby monitor. Television closed-captioning. This shows the words at the bottom of the screen. Most new TVs can dothis. TTY (text telephone). This lets you type messages back and forth on the telephone instead of talking or listening. These devices are also called TDD. When messages are typed on the keyboard, they aresent over the phone line to a receiving TTY. The message is shown on a monitor. Use text messaging, social media, and email if it is hard for you to communicate by telephone. Try to learn a listening technique called speechreading. It is not lipreading. You pay attention topeople's gestures, expressions, posture, and tone of voice. These clues can help you understand what a person is saying. Face the person you are talking to, and have them face you. Make sure the lighting is good. You need to see the other person's face clearly. Think about counseling if you need help to adjust to your hearing loss. When should you call for help? Watch closely for changes in your health, and be sure to contact your doctor if: ?? You think your hearing is getting worse. ?? You have new symptoms, such as dizziness or nausea. Where can you learn more? Go to https://www.SwypeShield.net/patientEd and enter N100 to learn more about Hearing Loss: Care Instructions. Current as of: July 28, 2022?Content Version: 13.8 ?? [employer]. Care instructions adapted under license by [employer]. If you have questions about a medical condition or this instruction, always ask your healthcare professional. [employer] disclaims any warranty or liability for your use of this information. A Healthy Heart: Care Instructions Your Care Instructions Coronary artery disease, also called heart disease, occurs when a substance called plaque builds upin the vessels that supply oxygen-rich blood to your heart muscle. This can narrow the blood vessels and reduce blood flow. A heart attack happens when blood flow is completely blocked. A high-fat diet, smoking, and other factors increase the risk of heart disease. Your doctor has found that you have a chance of having heart disease. You can do lots of things to keep your heart healthy. It may not be easy, but you can change your diet, exercise more, and quit smoking. These steps really work to lower your chance of heart disease. Follow-up care is a olmstead part of your treatment and safety. Be sure to make and go to all appointments, and call your doctor if you are having problems. It's also a good idea to know your test resultsand keep a list of the medicines you take. How can you care for yourself at home? Diet ?? Use less salt when you cook and eat. This helps lower your blood pressure. Taste food before salting. Add only a little salt when you think you need it. With time, your taste buds will adjust to less salt. ?? Eat fewer snack items, fast foods, canned soups, and other high-salt, high- fat, processed foods. ?? Read food labels and try to avoid saturated and trans fats. They increase your risk of heart disease by raising cholesterol levels. ?? Limit the amount of solid fat-butter, margarine, and shortening-you eat. Use olive, peanut, or canola oil when you cook. Bake, broil, and steam foods instead of frying them. ?? Eat a variety of fruit and vegetables every day. Dark green, deep orange, red, or yellow fruits and vegetables are especially good for you. Examples include spinach, carrots, peaches, and berries. ?? Foods high in fiber can reduce your cholesterol and provide important vitamins and minerals. High-fiber foods include whole-grain cereals and breads, oatmeal, beans, brown rice, citrus fruits, andapples. ?? Eat lean proteins. Heart-healthy proteins include seafood, lean meats and poultry, eggs, beans, peas, nuts, seeds, and soy products. ?? Limit drinks and foods with added sugar. These include candy, desserts, and soda pop. Lifestyle changes ?? If your doctor recommends it, get more exercise. Walking is a good choice. Bit by bit, increase the amount you walk every day. Try for at least 30 minutes on most days of the week. You also may want to swim, bike, or do other activities. ?? Do not smoke. If you need help quitting, talk to your doctor about stop- smoking programs and medicines. These can increase your chances of quitting for good. Quitting smoking may be the most important step you can take to protect your heart. It is never too late to quit. ?? Limit alcohol to 2 drinks a day for men and 1 drink a day for women. Too much alcohol can cause health problems. ?? Manage other health problems such as diabetes, high blood pressure, and high cholesterol. If youthink you may have a problem with alcohol or drug use, talk to your doctor. Medicines ?? Take your medicines exactly as prescribed. Call your doctor if you think you are having a problem with your medicine. ?? If your doctor recommends aspirin, take the amount directed each day. Make sure you take aspirinand not another kind of pain reliever, such as acetaminophen (Tylenol). When should you call for help? Call 911 if you have symptoms of a heart attack. These may include: ?? Chest pain or pressure, or a strange feeling in the chest. ?? Sweating. ?? Shortness of breath. ?? Pain, pressure, or a strange feeling in the back, neck, jaw, or upper belly or in one or both shoulders or arms. ?? Lightheadedness or sudden weakness. ?? A fast or irregular heartbeat. After you call 911, the brake operator may tell you to chew 1 adult-strength or 2 to 4 low-dose aspirin. Wait for an ambulance. Do not try to drive yourself. Watch closely for changes in your health, and be sure to contact your doctor if you have any problems. Where can you learn more? Go to https://www.healthwise.net/patientEd and enter F075 to learn more about A Healthy Heart: Care Instructions. Current as of: November 22, 2022?Content Version: 13.8 ?? [employer]. Care instructions adapted under license by [employer]. If you have questions about a medical condition or this instruction, always ask your healthcare professional. [employer] disclaims any warranty or liability for your use of this information. Personalized Preventive Plan for Martínez Toribio - [birth year]/01/2021 Medicare offers a range of preventive health benefits. Some of the tests and screenings are paid infull while other may be subject to a deductible, co- insurance, and/or copay. Some of these benefits include a comprehensive review of your medical history including lifestyle, illnesses that may run in your family, and various assessments and screenings as appropriate. After reviewing your medical record and screening and assessments performed today your provider mayhave ordered immunizations, labs, imaging, and/or referrals for you. A list of these orders (if applicable) as well as your Preventive Care list are included within your After Visit Summary for your review. Other Preventive Recommendations: A preventive eye exam performed by an presales senior specialist is recommended every 1-2 years to screen for glaucoma; cataracts, macular degeneration, and other eye disorders. A preventive dental visit is recommended every 6 months. Try to get at least 150 minutes of exercise per week or 10,000 steps per day on a pedometer . Order or download the FREE Exercise & Physical Activity: Your Everyday Guide from [employer] [place] [employer]. Call or search [employer] [place] [employer] online. You need 8368-7575 mg of calcium and 2125-0081 IU of vitamin D per day. It is possible to meet yourcalcium requirement with diet alone, but a vitamin D supplement is usually necessary to meet this goal. When exposed to the sun, use a sunscreen that protects against both UVA and UVB radiation with an SPF of 30 or greater. Reapply every 2 to 3 hours or after sweating, drying off with a towel, or swimming. Always wear a seat belt when traveling in a car. Always wear a helmet when riding a bicycle or motorcycle. documented in this encounter Progress Notes * Felicitas Monaco MD - 03/01/2023 10:53 AM EDT Medicare Annual Wellness Visit Martínez Toribio is here for Medicare AWV Assessment & Plan Medicare annual wellness visit, subsequent Well controlled diabetes mellitus (HCC) - Hemoglobin A1C; Future Mixed hyperlipidemia - Lipid Panel; Future Recommended flu and covid shot. He will get at pharmacy Recommendations for Preventive Services Due: see orders and patient instructions/AVS. Recommended screening schedule for the next 5-10 years is provided to the patient in written form: see Patient Instructions/AVS. No follow-ups on file. Subjective The following acute and/or chronic problems were also addressed today: 68yo M w/ h/o colon ca, DMII, GERD, HTN, kidney stones, chronic back pain. Recently had a steroid shot for poison manuel. DMII: metformin 1000mg bid, jardiance 25mg, trulicity 1.5mg weekly -bs 120-140s -no episodes of hypglycemia Chronic pain: Low back pain Right hip pain -with GI hx is limited on nsaid use -recent MRI right hip and apt w/ Dr. Valiente. Planning for PT, hip injections. Pt in severe pain at times in the mean time. Limited mobility. -Has SAW neurosurgery with [facility] who had no recommendations for surgery. Has tried gabapentin in the past but did not find it to be very effective. Has used norco very occasionally in the past for his back. Cannot use NSAIDs due to GI history. he has had an injection in his left SI joint which helped he has a labral tear in right hip. he has had left TKA in November. He will have a right TKA in 3 weeks. He is walking without a cane now. He is walking daily now. GERD, h/o bleeding ulcer/Ryan's esophagus: protonix 40mg daily -Dr. Sagastume is his GI dr. -has been on nexium in the past -has been on protonix bid in the past. Reduced dose about a week ago -was found to be anemic about 6-8 mo ago. EGD discovered bleeding ulcer, was put on Carafate. Oral iron didn't improve his levels so he received 2 iron infusions and counts improved. He repeat blood work and was able to d/c the Carafate and iron. 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 Adenocarcinoma of cecum w/ lymphovascular invasion. S/p laproscopic R hemicolectomy in07/2020 w/ Dr. Mohamud. S/p 8 cycles of capecitabine was seeing Dr. Butterfield w/ oncology. Most recent colonoscopy in 02/2022 w/ Dr. Sagastume. *he will have another colonoscopy this year. H/o Kidney Stones, ED: cialis 20mg prn -last kidney stone 6-8 mo ago. Following diet -seeing urology HTN: olmesartan 20mg -stable. Well controlled. No cp, sob, edema Colonoscopy: 2021 PSA: checked by urology Patient's complete Health Risk Assessment and screening values have been reviewed and are found in Flowsheets. The following problems were reviewed today and where indicated follow up appointments were made and/or referrals ordered. Positive Risk Factor Screenings with Interventions: General HRA Questions: Select all that apply: (!) New or Increased Fatigue Fatigue Interventions: Patient comments: intermittent fatigue Hearing Screen: Do you or your family notice any trouble with your hearing that hasn't been managed with hearing aids?: (!) Yes Interventions: Patient declines any further evaluation or treatment Safety: Do you have either shower bars, grab bars, non-slip mats or non-slip surfaces in your shower or bathtub?: (!) No Interventions: Patient declined any further interventions or treatment Objective Vitals: 03/01/23 1048 BP: 118/74 Site: Left Upper Arm Position: Sitting Pulse: 89 SpO2: 96% Weight: 213 lb 5 oz (96.8 kg) Height: 5' 11 (1.803 m) Body mass index is 29.75 kg/m??. Physical Exam Cardiovascular: Rate and Rhythm: Normal rate and regular rhythm. Pulmonary: Effort: Pulmonary effort is normal. Breath sounds: Normal breath sounds. Neurological: Mental Status: He is alert. Mental status is at baseline. Psychiatric: Mood and Affect: Mood normal. Allergies Allergen Reactions Morphine Itching and Nausea And Vomiting Other reaction(s): migraines, hallucinations, itching Other reaction(s): Hallucinations, HALLUCINATIONS, ITCH, Other (See Comments) Event: hallucinations Morphine And Related Hallucinations, Itching, Nausea And Vomiting and Other (See Comments) Event: hallucinations Prior to Visit Medications Medication Sig Taking? Authorizing Provider atorvastatin (LIPITOR) 40 MG tablet 1 tablet Orally Once a day for 30 day(s) Yes Felicitas Monaco MD pantoprazole (PROTONIX) 40 MG tablet 1 tablet Orally Once a day for 30 day(s) Yes Felicitas Monaco MD empagliflozin (JARDIANCE) 25 MG tablet Orally Yes Felicitas Monaco MD metFORMIN (GLUCOPHAGE) 1000 MG tablet 1 tablet with a meal Orally bid Yes Felicitas Monaco MD dulaglutide (TRULICITY) 1.5 MG/0.5ML SC injection 0.5 mLs Yes Felicitas Monaco MD olmesartan (BENICAR) 20 MG tablet Take 1 tablet by mouth daily 1/2 tablet daily Yes Felicitas Monaco MD cyclobenzaprine (FLEXERIL) 10 MG tablet Take 0.5 tablets by mouth 3 times daily as needed for Muscle spasms Yes Felicitas Monaco MD aspirin 81 MG EC tablet Take 1 tablet by mouth 2 times daily for 60 doses Indications: Treatment toPrevent Deep Vein Thrombosis Patient taking differently: Take 1 tablet by mouth once Indications: Treatment to Prevent Deep VeinThrombosis Yes BURT Bazan acetaminophen (TYLENOL) 500 MG tablet Take 2 tablets by mouth in the morning and 2 tablets at noon and 2 tablets in the evening. Yes BURT Bazan Ondansetron HCl (ZOFRAN PO) Take by mouth prn Yes Historical Provider, tadalafil (CIALIS) 20 MG tablet Yes Historical Provider, MD Quintana (Including outside providers/suppliers regularly involved in providing care): Patient Care Team: Felicitas Monaco MD as PCP - General (Family Medicine) Felicitas Monaco MD as PCP - Empaneled Provider Reviewed and updated this visit: Tobacco Allergies Meds Med Hx Surg Hx Soc Hx Fam Hx documented in this encounter Plan of Treatment Upcoming Encounters Date Type Department Care Team (Late st Contact Info) Description 03/24/2024 9:00 AM EDT Office Visit Neurology - Maryan [address] [place] [address] Martell Calderon MD [address] [facility] [address] [place] [address] TREMORS/ MEDICARE, FOR LIFE 03/28/2024 8:30 AM EDT Office Visit Primary Care - [address] [address] Cheo Santoyo DO [address] [place] [phone] AWV 04/06/2024 9:45 AM EST Lab [facility] [address] [facility] [address] [place] [address] CBCMP,CEA,FEST 04/06/2024 10:15 AM EST Office Visit [facility] [address] [facility] [address] [place] [address] Georgi Butterfield MD [address] [place] [address] 6 MTH FU W/LABS, REV SCAN 04/13/2024 9:30 AM EST Office Visit Surgical Oncology - [facility] [address] [facility] [address] [place] [address] Delvis Cheek MD [address] [facility] [address] [place] [address] 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 [address] [place] [id number] Karly Bautista PA [address] [place] [address] annual visit from date of surgery May/Jul 2024 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 documented as of this encounter Results * Lipid Panel (03/04/2023 1:05 PM EDT) [facility] Cholesterol 115 100 - 200 mg/dL [facility] Comment: The National Cholesterol Education Program has published reference cholesterol values for cardiovascular risk to be: Less than 200 mg/dL ? = Low Risk 200 to 239 mg/dL ?= Borderline Risk 240mg/dL and greater ?= High Risk HDL 40 >=40 mg/dL [facility] Comment: The National Lipid Association and the National Cholesterol Education Program (NCEP) have set the guidelines for high-density lipoprotein (HDL) cholesterol in adults ages 18 and up. Triglycerides 90 0 - 149 mg/dL [facility] Comment: TRIGLYCERIDE INTERPRETATION: ?Recommended Fasting [...] PARTNERS VLDL 18.0 5.0 - 40.0 mg/dL [facility] Blood BLOOD SPECIMEN / Unknown 03/04/2023 1:05 PM EDT 03/04/2023 4:03 PM EDT Felicitas Monaco MD CHEMISTRY ORDERABLE S Performing Organization Address City/State/[facility] Co de Phone Number [facility] [address] [place] [address] * (ABNORMAL) Hemoglobin A1C (03/04/2023 1:05 PM EDT) Hemoglobin A1C 6.5(H) 4.0 - 6.0 % [facility] Comment: HEMOGLOBIN A1C INTERPRETATION: The [...] Inadequate Control Est. Avg. Glucose, WB [address] [facility] Est. Avg. Glucose-calculated [address] [facility] Blood BLOOD SPECIMEN / Unknown 03/04/2023 1:05 PM EDT 03/04/2023 4:05 PM EDT Felicitas Monaco MD CHEMISTRY ORDERABLE S Performing Organization Address City/State/[facility] Co de Phone Number [facility] [address] [facility] [place] [address] documented in this encounter Visit Diagnoses Diagnosis Medicare annual wellness visit, subsequent- Primary Routine general medical examination at a health care facility Well controlled diabetes mellitus (HCC) Mixed hyperlipidemia documented in this encounter Additional Health Concerns Assessment Noted Time A fall risk assessment has been complete d for the patient 02/26/2023 9:45 AM EDT documented as of this encounter Care Teams Superior Court Judge Relationship Specialty Start Date End Date Felicitas Monaco MD PCP - General Family Medicine 06/18/22 07/05/23 documented as of this encounter
--- OUTSIDE RECORDS SUMMARY | 2024-01-11 22:15 | XMS_ITS | Encounter Summary ---
Author Organization Jose Alejandro [facility] Address [address] [place] [address] Care Team Providers Care Financial Intern Name Role Phone Felicitas Monaco MD Primary Care Provider [phone] Encounter Details Date Type Department Care Team (Latest Contact Info) Description 03/17/2023 Travel Social History Tobacco Use Types Packs/Day [...] 9:00 AM EDT Office Visit Neurology - [facility] [address] [facility] [address] [place] [phone] Martell Calderon MD 2144 [facility] [address] [place] [address] TREMORS/ MEDICARE, FOR LIFE 03/28/2024 8:30 AM EDT Office Visit Primary Care - [address] [address] [place] [address] [place] [phone] AWV 04/06/2024 9:45 AM EST Lab [facility] - [facility] [address] [facility] [address] [place] [address] CBCMP,CEA,FEST 04/06/2024 10:15 AM EST Office Visit [place] [facility] - [facility] [address] [facility] [address] [place] [address] Georgi Butterfield MD 3510 [facility] [address] [place], [place] [id number] 6 MTH FU W/LABS, REV SCAN 04/13/2024 9:30 AM EST Office Visit Surgical Oncology - [facility] [address] [facility] [address] [place] [address] Delvis Cheek MD 125 [facility] [address] [place] [address] 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 06/19/2024 10:30 AM EST Office Visit Orthopaedics- Les Valencia [address] [facility] [address] [place] [address] Karly Bautista, BURT 180 [facility] 301 [place] [address] annual visit from date of surgery May/Jul 2024 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 documented as of this encounter Visit Diagnoses Not on filedocumented in this encounter Additional Health Concerns Assessment Noted Time A fall risk assessment has been complete d for the patient 02/26/2023 9:45 AM EDT documented as of this encounter Care Teams Financial Intern Relationship Specialty Start Date End Date Felicitas Monaco MD PCP - General Family Medicine 06/18/22 07/05/23 documented as of this encounter
--- OUTSIDE RECORDS SUMMARY | 2024-01-11 22:15 | XMS_ITS | Encounter Summary ---
Author Organization [facility] Address [address] [place] [address] Care Team Providers Care Farmworker Livestock Name Role Phone Felicitas Monaco MD Primary Care Provider [phone] Encounter Details Date Type Department Care Team (Late st Contact Info) Description 03/17/2023 Prep for Procedure Orthopaedics - [place] [id number] [phone] Bonny Mcarthur PA [facility] [address] [address] Social History Tobacco Use Types Packs/Day Years [...] 9:00 AM EDT Office Visit [facility] - [facility] [address] [facility] [address] [place] [address] Martell Calderon MD 2144 [facility] [address] [place] [address] TREMORS/ MEDICARE, FOR LIFE 03/28/2024 8:30 AM EDT Office Visit Primary Care - [address] [address] Cheo Santoyo DO [address] [place] [phone] AWV 04/06/2024 9:45 AM EST Lab [facility] - [facility] 20[address] [facility] [address] [place] [address] CBCMP,CEA,FEST 04/06/2024 10:15 AM EST Office Visit [facility] - [facility] [address] [facility] [address] [place] [address] Georgi Butterfield MD [address] [place] [address] 6 MTH FU W/LABS, REV SCAN 04/13/2024 9:30 AM EST Office Visit Surgical Oncology - [facility] 2084 [facility] [address] [place] [address] Delvis Cheek MD 125 [facility] [address] [place] [address] 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 documented as of this encounter Visit Diagnoses Not on filedocumented in this encounter Additional Health Concerns Assessment Noted Time A fall risk assessment has been complete d for the patient 02/26/2023 9:45 AM EDT documented as of this encounter Care Teams Farmworker Livestock Relationship Specialty Start Date End Date Felicitas Monaco MD PCP - General Family Medicine 06/18/22 07/05/23 documented as of this encounter
--- OUTSIDE RECORDS SUMMARY | 2024-01-11 22:15 | XMS_ITS | Encounter Summary ---
Author Organization [facility] Address [address] [place] [address] Care Team Providers Care Truck Driving Instructor Name Role Phone Felicitas Monaco MD Primary Care Provider [phone] Encounter Details Date Type Department Care Team (Late st Contact Info) Description 03/04/2023 [facility] - [facility] [address] [facility] [address] [place] [address] Georgi Butterfield MD [address] [place] [address] Social History Tobacco Use Types [...] 9:00 AM EDT Office Visit Neurology - [facility] 2[address] [facility] [address] [place] [address] Martell Calderon MD 2144 [facility] [address] [place] [address] TREMORS/ MEDICARE, FOR LIFE 03/28/2024 8:30 AM EDT Office Visit Primary Care - [address] [phone] Cheo Santoyo DO [address] [place] [phone] AWV 04/06/2024 9:45 AM EST Lab [facility] - [facility] 2084 [facility] [address] [place] [address] CBCMP,CEA,FEST 04/06/2024 10:15 AM EST Office Visit [place] [facility] - [facility] 2084 [facility] [address] [place] [address] Georgi Butterfield MD [address] [place] [address] 6 MTH FU W/LABS, REV SCAN 04/13/2024 9:30 AM EST Office Visit Surgical Oncology - [facility] 20[address] [facility] [address] [place] [address] Delvis hCeek MD 125 [facility] [address] [place] [phone] 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 documented as of this encounter Visit Diagnoses Not on filedocumented in this encounter Additional Health Concerns Assessment Noted Time A fall risk assessment has been complete d for the patient 02/26/2023 9:45 AM EDT documented as of this encounter Care Teams Truck Driving Instructor Relationship Specialty Start Date End Date Felicitas Monaco MD PCP - General Family Medicine 06/18/22 07/05/23 documented as of this encounter
--- OUTSIDE RECORDS SUMMARY | 2024-01-11 22:15 | XMS_ITS | Encounter Summary ---
Author Organization [facility] Ale[facility]andro [facility] Address [address] [place] [address] Care Team Providers Care Surgical Technologist Name Role Phone Felicitas Monaco MD Primary Care Provider [phone] Reason for Visit * Reason Onset Date Comments Medication Refill 02/12/2023 Encounter Details Date Type Department Care Team (Late st Contact Info) Description 02/12/2023 Refill Primary Care - [address] [facility] [address] [address] [place] [address] Nadia Beasley, PA-C [address] [facility] [address] [place] [address] Medication Refill Social History Tobacco Use Types [...] 9:00 AM EDT Office Visit Neurology - [facility] 2[address] [facility] [address] [place] [address] Martell Calderon MD 2144 [facility] [address] [place], [place] [phone] TREMORS/ MEDICARE, FOR LIFE 03/28/2024 8:30 AM EDT Office Visit Primary Care - [address] [phone] Cheo Santoyo, [address] [place] [phone] AWV 04/06/2024 9:45 AM EST Lab [place] [facility] - [facility] 2084 [facility] [address] [place] [address] CBCMP,CEA,FEST 04/06/2024 10:15 AM EST Office Visit [place] [facility] - [facility] 20[address] [facility] [address] [place] [address] Georgi Butterfield MD [address] [place] [address] 6 MTH FU W/LABS, REV SCAN 04/13/2024 9:30 AM EST Office Visit Surgical Oncology - [facility] 20[address] [facility] [address] [place] [address] Delvis Cheek MD 125 [facility] 660 [place] [address] 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 [address] [place] [address] Karly Bautista, PA [address] [place] [phone] annual visit from date of surgery May/Jul 2024 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 documented as of this encounter Visit Diagnoses Not on filedocumented in this encounter Additional Health Concerns Assessment Noted Time A fall risk assessment has been complete d for the patient 01/19/2023 2:33 PM EDT documented as of this encounter Care Teams Surgical Technologist Relationship Specialty Start Date End Date Felicitas Monaco MD PCP - General Family Medicine 06/18/22 07/05/23 documented as of this encounter
--- OUTSIDE RECORDS SUMMARY | 2024-01-11 22:15 | XMS_ITS | Encounter Summary ---
Author Organization [facility] Address [address] [place] [address] Care Team Providers Care Comb Capper Name Role Phone Felicitas Monaco MD Primary Care Provider [phone] Encounter Details Date Type Department Care Team (Late st Contact Info) Description 01/22/2023 10:10 AM EDT Ancillary Procedure Orthopaedics - [address] [phone] Social History Tobacco Use Types Packs/Day [...] 9:00 AM EDT Office Visit Neurology - [facility] [place] [address] [facility] [address] [place] [phone] Martell Calderon MD 2144 [facility] [address] [place] [address] TREMORS/ MEDICARE, FOR LIFE 03/28/2024 8:30 AM EDT Office Visit Primary Care - [address] [address] Cheo Santoyo DO [address] [place] [phone] AWV 04/06/2024 9:45 AM EST Lab [place] [facility] - [facility] [place] 2084 [facility] [address] [place] [address] CBCMP,CEA,FEST 04/06/2024 10:15 AM EST Office Visit [place] [facility] - [facility] [place] [address] [facility] [address] [place] [phone] Georgi Butterfield MD 3510 [facility] [address] [place] [address] 6 MTH FU W/LABS, REV SCAN 04/13/2024 9:30 AM EST Office Visit Surgical Oncology - [facility] [place] 20[address] [facility] [address] [place] [address] Delvis Cheek MD 125 [facility] [address] [place] [phone] 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 [address] [place] [address] Karly Bautista, BURT [address] [place] [address] annual visit from date of [...] without any issues or concerns Marquise Moses DESSERT CUP MACHINE FEEDER - P[employer] TEAM LEADER IMG DIAGNOST IC IMAGING ORDERABLES documented in this encounter Visit Diagnoses Not on filedocumented in this encounter Additional Health Concerns Assessment Noted Time A fall risk assessment has been complete d for the patient 01/19/2023 2:33 PM EDT documented as of this encounter Care Teams Comb Capper Relationship Specialty Start Date End Date Felicitas Monaco MD PCP - General Family Medicine 06/18/22 07/05/23 documented as of this encounter
--- OUTSIDE RECORDS SUMMARY | 2024-01-11 22:15 | XMS_ITS | Encounter Summary ---
Author Organization [facility] Address [address] [place] [address] Care Team Providers Care Placement Coordinator Name Role Phone Felicitas Monaco MD Primary Care Provider [phone] Reason for Visit * Auth/Cert (Routine) Specialty Diagnoses / Procedures Referred By Rachid jimenez Referred To Contact Diagnoses Primary osteoarthritis of right knee Primary osteoarthritis of right knee [M17.11] Procedures CT ARTHRP KNE CONDYLE&PLATU MEDIAL&LAT COMPARTMENTS RIGHT TOTAL KNEE ARTHROPLASTY, ROBOTIC Maurice Panchal MD [address] [address] Referral ID Status Reason Start Date Expiration Date Visits Re quested Visits Authorized [id number] 1 1 Encounter Details Date Type Department Care Team (Latest Contact Info) Description 03/17/2023 7:29 AM EDT - 03/18/2023 1:26 PM EDT Hospital Encounter RMP [facility] [address] [place] [id number] Maurice Panchal MD [address] [address] S/P total knee arthroplasty, right (Primary Dx) Discharge Disposition: Home Health Care Svc Social [...] Sign Reading Time Taken Comments Blood Pressure 116/71 03/18/2023 8:31 AM EDT Pulse 83 03/18/2023 3:45 AM EDT Temperature 36.6 ??C (97.9 ??F) 03/18/2023 8:31 AM ED T Respiratory Rate 18 03/18/2023 8:31 AM EDT Oxygen Saturation 96% 03/18/2023 8:31 AM EDT Inhaled Oxygen Concentration - - Weight 96.1 kg (211 lb 13.8 oz) 03/17/2023 1:45 PM EDT Height 175.3 cm (5' 9.02) 03/17/2023 1:45 PM ED T Body Mass Index 31.27 03/17/2023 1:45 PM EDT documented in this encounter Discharge Instructions * Discharge Instructions* Ramirez Agosto RN - 03/17/2023 6:29 AM EDT Images from the original note were not included. There are Three things that will be removed by the home health physical therapist : 1. On Q pump is removed 3 days after surgery 2. Aquacell dressing is removed 7-10 days after day of surgery 3. Jacquelyn are removed 10-14 days after surgery Then 2 weeks later you will have your follow up appointment. Also: To prevent complications/minimize risk do the following: [...] blood thinner and pain meds as directed. Make follow-up appointment in 1 month at most convenient location - please call Dr. Panchal's office at [phone] AQUACEL DRESSING Aquacel?? Ag dressing is a soft covering put on wounds to promote healing. The dressing contains silver to help absorb drainage and prevent infections. What you can expect: 1. The dressing will stay on for 7 days 2. Remove the dressing if: It becomes loose, starts to fall off or will not stay in place. There is a large amount of fluid (drainage) under the dressing and it starts to seep out. If this happens, please see your surgeon. 3. After removing the Aquacel?? dressing, home health will apply one of the following: A simple dry dressing No dressing required FOR TOTAL KNEES: [place] will be removed by home health 10-14 days after your surgery, then steristrips will be placed Activity: 1. Follow your providers instructions at the hospital regarding activities 2. The dressing is waterproof. You may shower. 3. You may shower after dressing has been removed if there has been no drainage from your incision for 24 hours 4. Do NOT push water in your incision with shower massager 5. Do not apply any ointments or creams to incision area until after your one month appointment with your doctor Please DO NOT soak for a prolonged time, bathe, swim, or use a hot tub. If you have any questions or concerns, please contact your doctor???s office: To remove your dressin. Wash your hands with soap and water. 2. Gently press down on the corner of the Aquacel?? dressing with one hand. 3. Use the other hand to slowly lift up an edge of the dressing. 4. Stretch the edge of the dressing down and outto break the seal between your skin and the tape of the dressing. Do not pull the dressing up. 5. Slowly work your way around the dressing, repeating steps 2 to 4, until the dressing is loose. Remove the dressing. ON-Q*Catheter Patient Guidelines Pump Infusion: - To turn the pump off, close the white clamp. If you are having Pain: - Take oral pain medicines as prescribed by your surgeon. Call your surgeon for questions about: - Oral pain medicines and prescriptions - Surgical incision dressings, cooling machines, and activity restrictions. - Temperature greater than 101 degrees for 8 or more hours. Call the anesthesiologist for: - Excessive swelling, reddness, or pain at catheter site. - Skin rash or hives, mouth or tongue numbness or tingling, ringing in ears, blurred vision (ALSO: Close white clamp to stop infusion) Important Points: - Leaking of fluid under dressing site is very common. You may reinforce dressing, however DO NOT remove it. - The pump should be protected from sunlight and heat. - DO NOT get the pump or catheter wet in tub or shower. - You may wash with washcloth or sponge. - The pump is EMPTY when it is flat with an Mojiva core center remaining inside. To remove catheter: Wash hands. Remove dressing, white foam, and plastic catheter connector from the skin. Slowly remove catheter (it should come out easily with a gentle tug). Apply band-aid, and inspect site for bleeding or swelling as needed. REMOVAL OF CATHETER If your doctor has instructed you to remove the catheter, then follow their instructions keeping in mind these olmstead steps:??? Wash your hands thoroughly with soap and warm water. Dry thoroughly. Remove the dressing covering the catheter site. Remove any skin adhesive strips. Grasp the catheter close to the skin and gently pull on the catheter. It should be easy to remove and not painful. Do not tug or quickly pull on the catheter during removal. If it becomes hard to remove or stretches, then STOP. Call your doctor. Continued pulling could break the catheter. Do not cut or pull hard to remove the catheter. Place a dressing over the catheter site as instructed by your doctor. CONTACT NUMBERS - 24 HOUR patient nursing hotline: [phone] Call your doctor if you have: A large amount of drainage coming from the wound A fever of 38.3??C (101??F) or above. Unusual pain, foul smell, redness or swelling near the incision. These are signs of an infection. When to seek medical advice Call your health care provider right away if any of these occur with your wound: Fever Redness, warmth, or swelling Pain in the wound gets worse Pus drains when you remove the bandage Red streaks surround the wound area After Knee Replacement: Controlling Swelling Swelling is common after total knee replacement. It may be worse after exercise. To help control swelling, follow the steps below. Ice your knee Wrap an ice pack or bag of frozen peas in a thin cloth, then place it on your knee. Don???t use icefor more than 20 minutes at a time. If you have an ice machine, use it as directed. Elevate your leg Elevate your leg above your heart. Ask your healthcare provider about safe positions to do this. Do ankle pumps Continue doing ankle pumps. They help reduce swelling, improve circulation, and prevent blood clots. Point, then flex both feet slowly. Repeat this 10 to 30 times each hour. ?? [id number] [employer]. All rights reserved. This information is not intended as a substitute for professional medical care. Always follow your healthcare professional's instructions. After Knee Replacement: The First Month You???ll apply the same movement skills you learned in the hospital or rehab center to your exercise program at home. You may also keep meeting with your physical therapist. Following your exercise program brings big rewards. With your knee in shape, you???ll walk more easily and get back to an active life sooner. Maintaining your exercise program Exercising is the only way to get back your strength and range of motion. With continued exercise, you may gain even more strength and range of motion than you had before surgery. That???s because before surgery, pain and stiffness may have limited your movement. So make exercise part of your dailyroutine. Keep meeting with your physical therapist as directed. He or she may add riding a stationary bike, swimming, or other new exercises to your program. Walking in stride Walking helps build a more normal, comfortable stride. It also keeps you in shape and helps preventblood clots. Start by taking three or four short walks every day. Over time, increase how far, how long, and how many times a day you walk. After your walk, lie down, elevate your knee, and ice it toease swelling. Your healthcare provider or physical therapist will tell you when and where to use your walker, crutches, or cane. He or she will also let you know when you can stop using them. ?? [id number] [employer]. All rights reserved. This information is not intended as a substitute for professional medical care. Always follow your healthcare professional's instructions. After Knee Replacement: Keeping Your Knee Healthy You can keep your knee healthy by knowing the right moves and not doing the wrong ones. Some activities could harm your artificial knee and may be permanently restricted. Your healthcare provider andphysical therapist will give you specific instructions and advice. Take small steps to move your body. Do???s: Place your knee comfortably as you go about daily activities. Exercise and walk every day as directed by your healthcare provider. Use an ice pack if your knee starts to swell or feel tender. Don???ts: Don't twist your knee. Turn your whole body instead. Don't jump or do any impact activity. It could loosen your new knee joint. Don't force movements, such as bending your knee too far. Don't put a pillow behind your knee when you are resting. This may keep you from straightening it fully. Follow-up care Your orthopedic surgeon will schedule follow-up exams to make sure that your knee is healing the right way. Use this time to ask any questions you have about your recovery or activities. ?? [employer]. All rights reserved. This information is not intended as a substitute for professional medical care. Always follow your healthcare professional's instructions. After Knee Replacement: At Home Exercise Program Apply the skills you learned in the hospital or rehab center to your exercise program at home. Use a walker, cane, or crutches to help you move safely. By sticking with your exercise program, you???ll walk more easily and return to an active life sooner. Maintaining your exercise program Make exercise part of your daily routine. Lack of exercise can cause joint stiffness and decreased range of motion. But with continued exercise, you may even gain more strength and range of motion than you had before surgery. Keep meeting with your physical therapist as directed. He or she may add riding a stationary bike or other new exercises to your program. Quadriceps sets Laying on your back, tighten your thigh muscles. Try to straighten your knee. Hold for 5 to 10 seconds and gradually build up your time. Straight leg raises Tighten your thigh and straighten your knee as with the quadriceps set above. Lift your leg severalinches off the bed and hold for 5 to 10 seconds. Gradually increase your time and number of repititions. Ankle pumps Move your foot up and down by alternately garry your calf and barone muscles. Do this often to help remove lower leg swelling. Sitting knee exercises Do sitting knee exercises along with your other exercises. Start with 10 repetitions, and then build up to 25 repetitions per session. Do 2 sessions each day. Sit in a chair with both feet flat on the floor. Slowly straighten your operated leg as much as you can. Hold for 5 seconds. Slowly bend your leg under the chair, bringing it back as far as you can. Hold for 10 to 20 seconds. Return your leg to the starting point. ?? [id number] [employer]. All rights reserved. This information is not intended as a substitute for professional medical care. Always follow your healthcare professional's instructions. After Knee Replacement: The First Month You???ll apply the same movement skills you learned in the hospital or rehab center to your exercise program at home. You may also keep meeting with your physical therapist/home health. Following your exercise program brings big rewards. With your knee in shape, you???ll walk more easily and get back to an active life sooner. Maintaining your exercise program Exercising is the only way to get back your strength and range of motion. With continued exercise, you may gain even more strength and range of motion than you had before surgery. That???s because before surgery, pain and stiffness may have limited your movement. So make exercise part of your dailyroutine. Keep meeting with your physical therapist as directed. He or she may add riding a stationary bike, swimming, or other new exercises to your program. Walking in stride Walking helps build a more normal, comfortable stride. It also keeps you in shape and helps preventblood clots. Start by taking three or four short walks every day. Over time, increase how far, how long, and how many times a day you walk. After your walk, lie down, elevate your knee, and ice it toease swelling. Your healthcare provider or physical therapist/home health will tell you when and where to use your walker, crutches, or cane. He or she will also let you know when you can stop using them. After Knee Replacement: Keeping Your Knee Healthy You can keep your knee healthy by knowing the right moves and not doing the wrong ones. Some activities could harm your artificial knee and may be permanently restricted. Your healthcare provider andphysical therapist will give you specific instructions and advice. Take small steps to move your body. Do???s: Place your knee comfortably as you go about daily activities. Exercise and walk every day as directed by your healthcare provider. Use an ice pack if your knee starts to swell or feel tender. Don???ts: Don't twist your knee. Turn your whole body instead. Don't jump or do any impact activity. It could loosen your new knee joint. Don't force movements, such as bending your knee too far. Don't put a pillow behind your knee when you are resting. This may keep you from straightening it fully. Follow-up care Your orthopedic surgeon will schedule follow-up (typically 4 weeks post op) exams to make sure thatyour knee is healing the right way. Use this time to ask any questions you have about your recoveryor activities. After Knee Replacement: Controlling Swelling Swelling is common after total knee replacement. It may be worse after exercise. To help control swelling, follow the steps below. Ice your knee Wrap an ice pack or bag of frozen peas in a thin cloth, then place it on your knee. Don???t use icefor more than 20 minutes at a time. If you have an ice machine, use it as directed. Elevate your leg Elevate your leg above your heart. Ask your healthcare provider about safe positions to do this. Do ankle pumps Continue doing ankle pumps. They help reduce swelling, improve circulation, and prevent blood clots. Point, then flex both feet slowly. Repeat this 10 to 30 times each hour. After Knee Replacement: At Home Exercise Program Apply the skills you learned in the hospital or rehab center to your exercise program at home. Use a walker, cane, or crutches to help you move safely. By sticking with your exercise program, you???ll walk more easily and return to an active life sooner. Maintaining your exercise program Make exercise part of your daily routine. Lack of exercise can cause joint stiffness and decreased range of motion. But with continued exercise, you may even gain more strength and range of motion than you had before surgery. Keep meeting with your physical therapist as directed. He or she may add riding a stationary bike or other new exercises to your program. Quadriceps sets Laying on your back, tighten your thigh muscles. Try to straighten your knee. Hold for 5 to 10 seconds and gradually build up your time. Straight leg raises Tighten your thigh and straighten your knee as with the quadriceps set above. Lift your leg severalinches off the bed and hold for 5 to 10 seconds. Gradually increase your time and number of repititions. Ankle pumps Move your foot up and down by alternately garry your calf and barone muscles. Do this often to help remove lower leg swelling. Sitting knee exercises Do sitting knee exercises along with your other exercises. Start with 10 repetitions, and then build up to 25 repetitions per session. Do 2 sessions each day. Sit in a chair with both feet flat on the floor. Slowly straighten your operated leg as much as you can. Hold for 5 seconds. Slowly bend your leg under the chair, bringing it back as far as you can. Hold for 10 to 20 seconds. Return your leg to the starting point. ?? [id number] [employer]. All rights reserved. This information is not intended as a substitute for professional medical care. Always follow your healthcare professional's instructions. * Attachments The following attachments cannot be sent through Care Everywhere. * acetaminophen (oral) (Maldivian) * aspirin (oral) (Maldivian) * celecoxib (Maldivian) * docusate (oral/rectal) (Maldivian) * Constipation (Maldivian) * DVT (Deep Vein Thrombosis) (Maldivian) * Pulmonary Embolism (Maldivian) documented in this encounter Medications at Time [...] 06/11/2020 07/06/2023 documented as of this encounter Progress Notes * Chrissy Mcdonnell, CONTINUITY MANAGER - 03/18/2023 1:26 PM EDT Images from the original note were not included. Acute Care Physical Therapy Treatment Note Observation (CONTINUITY MANAGER/PT Visit Days : 2) Time In: 911 Time Out: 931 (20 minutes) Acknowledge Orders PT Charge Capture Admitting Diagnosis: Primary osteoarthritis of right knee [M17.11] Procedure(s) (LRB): RIGHT TOTAL KNEE ARTHROPLASTY, ROBOTIC (Right) 1 Day Post-Op Treatment Diagnosis: Payor: MEDICARE / Plan: MEDICARE PART A AND B / Product Type: *No Product type* / SUBJECTIVE Martínez Toribio is a 68 y.o. male admitted with DJD (degenerative joint disease). He has a past medical history of Ryan's esophagus, Cancer (HCC), Chronic back pain, Diabetes (HCC), DJD (degenerative joint disease), GERD (gastroesophageal reflux disease), Hip pain, HTN (hypertension), Hyperlipidemia, Left bundle branch block (LBBB), PONV (postoperative nausea and vomiting), Post-operative nausea and vomiting, Sleep apnea, and Spinal stenosis. He also has a past surgical history that includes joint replacement (Right, 2011); back surgery (02/05/1986); hip surgery (Right, 06/18/2022); subtotal colectomy (2019); Upper gastrointestinal endoscopy (2019); Knee arthroscopy (Left, 10/13/2021); Hand surgery (Right, 2001); Cervical discectomy (04/18/2007); Kidney stone surgery (2009); hemicolectomy (2020); shoulder surgery (Right, 2010); Hand Carpectomy (Left, 2021); Total knee arthroplasty (Left, 12/21/2022); Colonoscopy; and Total knee arthroplasty (Right, 03/17/2023). Subjective: PATIENT AGREEABLE TO TREATMENT. RN STATED OK TO WORK WITH PATIENT Additional Pertinent History: Additional Pertinent Hx: WBAT s/p R TKA. PMHx: extensive, L TKA 12/21/22. Social Environment Prior Level of Function Lives With: Spouse Type of Home: House Home Layout: One level Home Access: Stairs to enter with rails Home Equipment: Cane, Walker, rolling ADL Assistance: Independent Homemaking Assistance: Independent Ambulation Assistance: Independent Transfer Assistance: Independent History of Falls: No Comments: OBJECTIVE Vital Signs/Pain Lines/Drains/Precautions Vital Signs Pain RIGHT KNEE Peripheral IV 03/17/23 Left;Posterior Hand (Active) Precautions/Restrictions Restrictions/Precautions Restrictions/Precautions: Weight Bearing Lower Extremity Weight Bearing Restrictions Right Lower Extremity Weight Bearing: Weight Bearing As Tolerated Orientation/Cognition Vision/Hearing Cognition Overall Cognitive Status: WNL Orientation Overall Orientation Status: Within Normal Limits Orientation Level: Oriented X4 [facility]?6 Clicks?? Basic Mobility Inpatient Short Form [...] and from a bed to a chair?: None How much help is needed standing up from a chair using your arms?: None How much help is needed walking in hospital room?: A Little How much help is needed climbing 3-5 steps with a railing?: A Little [facility] : [facility] T-[facility] Score : 53.28 Mobility Inpatient CMS 0-100% Score: 20.91 Mobility Inpatient CMS G-Code Modifier : CJ TREATMENT Bed Mobility Transfer Training Sit to Stand: Contact guard assistance Stand to Sit: Contact guard assistance Ambulation Surface: Level tile Device: Rolling Walker Assistance: Contact guard assistance;Stand by assistance Quality of Gait: RECIPROCAL PATTERN, NO LOB Gait Deviations: Decreased step length Distance: 200 FT Therapeutic Exercise (CPT 78204) (8 minutes) Exercise Treatment: PERFORMED HEELSLIDES FOR ROM X 5 REPS; REVIEWED ANKLE PUMPS, QUAD SETS AND GLUTEAL SETS To Improve:activity tolerance, AROM, strength, and mobility Gait Training (20 Minutes) CPT 89433: Gait training for 200 feet utilizing Gait Belt and Rolling Walker. Patient required Verbal cueing to improve Activity Pacing, Assistive Device Utilization, and Gait Mechanics. Comments PLEASANT AND MOTIVATED; WILL BE ASSISTING AT HOME Safety: Type of Devices: All fall risk precautions in place;Gait belt;Call light within reach;Left in chair;Nurse notified Education: ASSESSMENT Assessment: PATIENT SITTING UP IN CHAIR UPON ARRIVAL. PERFORMED HEELSLIDES X 5 REPS; ANKLE PUMPS, QUAD SETS ANDGLUTEAL SETS X 10. SIT TO STAND CGA. GAIT TRAINING WITH RW X 200 FT RECIPROCAL PATTERN, NO LOB OR BUCKLING, CGA/ SBA. RETURNED TO ROOM AND SEATED IN RECLINER. REVIEWED AND DEMONSTRATED ENTERING HOME WITH THRESHOLD STEP. PATIENT WITH CLEAR UNDERSTANDING AND GOOD SAFETY AWARENESS. WILL BE ASSISTING. LE'S ELEVATED. SCD'S AND ICE APPLIED. CALL CALIX IN HAND. POST ACUTE RECOMMENDATIONS Setting: Home Health Therapy 'S ASSISTANCE Justification for Recommended Setting: Recommended to help patient obtain maximum functional independence. Equipment: HAS RW Discharge Transportation Recommendations: No stretcher PLAN Frequency & Duration: BID for duration of hospital stay or until stated goals are met, whichever comes first. Interventions Planned (Treatment may consist of any combination of the following): Current Treatment Recommendations: Strengthening; Balance training; ROM; Functional mobility training; IADL training; Transfer training; ADL/Self-care training; Endurance training; Gait training; Stair training; Pain management; Home exercise program; Safety education & training; Patient/Caregiver education & training; Equipment evaluation, education, & procurement; Modalities; Positio claudia; Therapeutic activities Goals STG 1 AND 2 MET; VERBALIZED UNDERSTANDING OF STG 3 Short Term Goals [facility] Goals Time Frame for Short Term Goals: 3 visits Short Term Goal 1: Pt will transfer STS c RW c CGA- goal met Short Term Goal 2: Pt will amb 200 ft c RW c CGA Short Term Goal 3: Pt will navigate curb c RW c CGA Therapist Signature: Chrissy Mcdonnell PTA Date: 03/18/2023 * Sindy Cornejo, OT - 03/18/2023 1:26 PM EDT Images from the original note were not included. Acute Care Occupational Therapy Evaluation Observation OT Visit Days: 1 Time In: 0954Time Out:1020 (26minutes) Acknowledge Orders OT Charge Capture Admitting Diagnosis: Primary osteoarthritis of right knee [M17.11] Procedure(s) (LRB): RIGHT TOTAL KNEE ARTHROPLASTY, ROBOTIC (Right)1 Day Post-Op Reason for Referral: Other abnormalities of gait and mobility (R26.89) Payor: MEDICARE / Plan: MEDICARE PART A AND B / Product Type: *No Product type* / SUBJECTIVE Martínez Toribio is a 68 y.o. male admitted with DJD (degenerative joint disease). He has a past medical history of Ryan's esophagus, Cancer (HCC), Chronic back pain, Diabetes (HCC), DJD (degenerative joint disease), GERD (gastroesophageal reflux disease), Hip pain, HTN (hypertension), Hyperlipidemia, Left bundle branch block (LBBB), PONV (postoperative nausea and vomiting), Post-operative nausea and vomiting, Sleep apnea, and Spinal stenosis. He also has a past surgical history that includes joint replacement (Right, 2011); back surgery (02/05/1986); hip surgery (Right, 06/18/2022); subtotal colectomy (2019); Upper gastrointestinal endoscopy (2019); Knee arthroscopy (Left, 10/13/2021); Hand surgery (Right, 2001); Cervical discectomy (04/18/2007); Kidney stone surgery (2009); hemicolectomy (2020); shoulder surgery (Right, 2010); Hand Carpectomy (Left, 2021); Total knee arthroplasty (Left, 12/21/2022); Colonoscopy; and Total knee arthroplasty (Right, 03/17/2023). Subjective: Pt cleared for OT by RN. Pt agreeable to therapy, denied dizziness and pain throughout. 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, 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 History of Falls:No Comments: OBJECTIVE Vital Signs / Pain Lines & Drains /Precautions No vitals taken this session Pain Peripheral IV 03/17/23 Left;Posterior Hand (Active) Precautions/Restrictions Restrictions/Precautions Restrictions/Precautions: Weight Bearing Lower Extremity Weight Bearing Restrictions Right Lower Extremity Weight Bearing: Weight Bearing As Tolerated Orientation/Cognition Vision/Hearing Orientation Overall Orientation Status: Within Normal Limits Orientation Level: Oriented X4 Cognition Overall Cognitive Status: WNL Vision Vision: Within Functional Limits Hearing Hearing: Within functional limits Objective Assessment Gross Assessment Gross Assessment AROM: Within functional limits Strength: Within functional limits ROM LUE AROM (degrees) LUE AROM : WNL RUE AROM (degrees) RUE AROM : WNL Balance Sitting: Intact Standing: Intact (with RW) Activities of Daily Living Feeding: Independent Feeding Skilled Clinical Factors: * Grooming: Stand by assistance Grooming Skilled Clinical Factors: Pt able to complete grooming tasks standing at sink with RW and SBA. Noted no LOB UE Bathing: Stand by assistance UE Bathing Skilled Clinical Factors: seated* LE Bathing: Stand by assistance LE Bathing Skilled Clinical Factors: seated* UE Dressing: Stand by assistance UE Dressing Skilled Clinical Factors: Pt able to complete UE dressing sitting EOC. LE Dressing: Stand by assistance LE Dressing Skilled Clinical Factors: Pt able to begin LE dressing sitting EOC, then able to complete while standing with RW and SBA. Noted no LOB Toileting: Stand by assistance Toileting Skilled Clinical Factors: independent with saroj care. SBA for safe transfer Equipment Provided: Comments: *Per assessment of abilities and limitations Functional Activity Bed Mobility Supine to Sit: Stand by assistance Scooting: Stand by assistance Comments: Transfers Sit to stand: Stand by assistance Stand to sit: Stand by assistance Comments: EVALUATION ONLY ADL Treatment (15 Minutes) CPT 96430: Self care including toileting, upper body dressing, lower body dressing, and grooming to increase independence. Safety: Type of Devices: All fall risk precautions in place;Gait belt;Call light within reach;Left in chair;Nurse notified Education: Education Given To: Patient Education Provided: Role of Therapy;ADL Adaptive Strategies;Energy Conservation;Fall Prevention Strategies;Transfer Training Education Method: Demonstration;Verbal Education Outcome: Verbalized understanding;Demonstrated understanding [facility]?6 Clicks?? Basic ADL Inpatient Short Form ASSESSMENT Assessment Pt is WBAT post R.TKA. Pain was well controlled, balance and strength WFL with RW for safe progression home. Pt stated and demo'd understanding for all discussed ADL modifications to increase safety at d/c. No further acute OT needs at this time. Recommend HHT and assist/support from spouse as needed. Evaluation Complexity: Low Complexity POST ACUTE RECOMMENDATIONS Setting: Home Health Therapy Justification for Recommended Setting: Recommended to help patient obtain maximum functional independence. Equipment: Therapist Signature: Sindy Cornejo OT Date: 03/18/2023 * Bonny Mcarthur PA - 03/18/2023 12:23 PM EDT Orthopedic Progress Note Date:03/18/2023 Room:[address] [place] [address] Patient Name:Martínez Toribio Date of :1955 Age:68 y.o. Subjective Patient is status post op day 1 from elective right total knee arthroplasty. Patient is resting comfortably in a bedside chair. His is in the room. Patient overall is doing very well. He is verypleased with his progress in his recovery compared to his left knee. Patient denies any dressing issues. Patient denies any fevers or chills. Patient denies any chest pain. Physical Examination Vitals: BP 116/71 Pulse 83 Temp 97.9 ??F (36.6 ??C) (Oral) Resp 18 Ht 1.753 m (5' 9.02) Wt 96.1 kg (211 lb 13.8 oz) SpO2 96% BMI 31.27 kg/m?? Temp (24hrs), Av.7 ??F (36.5 ??C), Min:97 ??F (36.1 ??C), Max:98 ??F (36.7 ??C) Patient is alert and aligned to ??3 No shortness of breath Mepilex Silver dressing is clean, dry and intact Minimal but expected joint effusion is noted Pulses are palpable, skin is warm to touch Patient is moving both lower extremities without any issues or deficits Labs/Imaging/Diagnostics Labs: Hemoglobin/Hematocrit: Lab Results Component Value Date/Time HGB 13.9 03/18/2023 05:08 AM HCT 42.4 03/18/2023 05:08 AM BMP: Lab Results Component Value Date/Time NA 136 03/18/2023 05:08 AM K 4.6 03/18/2023 05:08 AM CL 102 03/18/2023 05:08 AM CO2 26 03/18/2023 05:08 AM BUN 19 03/18/2023 05:08 AM LABALBU 4.6 03/04/2023 01:05 PM CREATININE 1.2 03/18/2023 05:08 AM CALCIUM 8.9 03/18/2023 05:08 AM GFRAA 82 07/19/2020 04:57 AM LABGLOM 67 03/18/2023 05:08 AM GLUCOSE 159 03/18/2023 05:08 AM Assessment Status post op right total knee arthroplasty Plan: Patient overall is making satisfactory progress. We will plan for tentative discharge home later today with home health therapy if cleared by physical therapy and no medical concerns Patient expresses verbal understanding of aspirin 81 mg tablet 1 by mouth twice a day for the next 4 weeks for DVT prophylaxis Patient understands the importance of their physical therapy/range of motion exercises. We have also recommended ice therapy to the knee for the next 6 weeks to help with any postoperative discomfort and swelling Patient will return to Dr. Panchal's office in 4 weeks for further evaluation, sooner if needed We've asked that the patient only take pain medication as needed * Brenden Perez - 03/17/2023 7:19 PM EDT Images from the original note were not included. Acute Care Physical Therapy Evaluation Observation (CONTINUITY MANAGER/PT Visit Days : 1) Time In: 1733 Time Out: 1806 (33 minutes) Acknowledge Orders PT Charge Capture Admitting Diagnosis: Primary osteoarthritis of right knee [M17.11] Procedure(s) (LRB): RIGHT TOTAL KNEE ARTHROPLASTY, ROBOTIC (Right) Day of Surgery Reason for Referral: Other abnormalities of gait and mobility (R26.89) Payor: MEDICARE / Plan: MEDICARE PART A AND B / Product Type: *No Product type* / SUBJECTIVE Martínez Toribio is a 68 y.o. male admitted with DJD (degenerative joint disease). He has a past medical history of Ryan's esophagus, Cancer (HCC), Chronic back pain, Diabetes (HCC), DJD (degenerative joint disease), GERD (gastroesophageal reflux disease), Hip pain, HTN (hypertension), Hyperlipidemia, Left bundle branch block (LBBB), PONV (postoperative nausea and vomiting), Post-operative nausea and vomiting, Sleep apnea, and Spinal stenosis. He also has a past surgical history that includes joint replacement (Right, 2011); back surgery (02/05/1986); hip surgery (Right, 06/18/2022); subtotal colectomy (2019); Upper gastrointestinal endoscopy (2019); Knee arthroscopy (Left, 10/13/2021); Hand surgery (Right, 2001); Cervical discectomy (04/18/2007); Kidney stone surgery (2009); hemicolectomy (2020); shoulder surgery (Right, 2010); Hand Carpectomy (Left, 2021); Total knee arthroplasty (Left, 12/21/2022); and Colonoscopy. Subjective: Pt appropriate for PT per nursing. Pt agreeable to PT and denied feeling light headed or dizzy throughout. Pt reported 7/10 during amb. Additional Pertinent History: WBAT s/p R TKA. PMHx: extensive, L TKA 12/21/22. Social Environment Prior Level of Function Lives With: Spouse Type of Home: House Home Layout: One level Home Access: Stairs to enter with rails Home Equipment: Cane, Walker, rolling Entrance Stairs - Number of Steps: 1 ADL Assistance: Independent Homemaking Assistance: Independent Ambulation Assistance: Independent Transfer Assistance: Independent History of Falls: No Comments: OBJECTIVE Vital Signs/Pain Lines/Drains/Precautions Vital Signs No vitals taken this session Pain 12/07 - tylenol only Peripheral IV 03/17/23 Left;Posterior Hand (Active) Precautions/Restrictions Restrictions/Precautions Restrictions/Precautions: Weight Bearing Lower Extremity Weight Bearing Restrictions Right Lower Extremity Weight Bearing: Weight Bearing As Tolerated Orientation/Cognition Vision/Hearing Overall Cognitive Status: WNL Overall Orientation Status: Within Normal Limits Orientation Level: Oriented X4 Objective Assessment Balance Sitting - Static: Good Sitting - Dynamic: Good Standing - Dynamic: Fair FUNCTIONAL ACTIVITY Bed Mobility Supine to Sit: Stand by assistance Scooting: Stand by assistance Transfer Training Sit to Stand: Contact guard assistance Stand to Sit: Contact guard assistance Ambulation Surface: Level tile Device: Rolling Walker Assistance: Contact guard assistance Quality of Gait: antalgic gait, increased UE support, no buckling, no LOB. Distance: 150 ft Safety: Type of Devices: All fall risk precautions in place Education: Education Given To: Patient;Family Education Provided: Role of Therapy;Plan of Care;Home Exercise Program;Precautions;ADL Adaptive Strategies;Transfer Training;Energy Conservation;Fall Prevention Strategies;Equipment Education Method: Demonstration;Verbal;Teach Back;Printed Information/Hand-outs Barriers to Learning: None Education Outcome: Verbalized understanding;Demonstrated understanding;Continued education needed ASSESSMENT Assessment: Pt was pleasant and cooperative throughout requiring min cues for good followthrough and carryover.Pt demonstrated good understanding for HEP including ankle pumps, quad sets, glute sets and heel slides. Pt verbalized understanding for home safety with changes in BP [...] tolerance to work activity, Decreased strength, Decreased endurance, Decreased sensation, Decreased balance, Decreased high-level IADLs, Decreased posture, Increased pain, Decreased coordination. Benefits and precautions of physical therapy have beendiscussed with Mr. Toribio, and the following interventions are recommended: Strengthening, Balance training, ROM, Functional mobility training, IADL training, Transfer training, ADL/Self-care training, Endurance training, Gait training, Stair training, Pain management, Home exercise program, Safetyeducation & training, Patient/Caregiver education & training, Equipment evaluation, education, & procurement, Modalities, Positioning, Therapeutic activities Goals Short Term Goals Newspaper Carriers Supervisor Goals Time Frame for Short Term Goals: 3 visits Short Term Goal 1: Pt will transfer STS c RW c CGA- goal met Short Term Goal 2: Pt will amb 200 ft c RW c CGA Short Term Goal 3: Pt will navigate curb c RW c CGA Therapist Signature: Brenden Guerrero Prevatte Date: 03/17/2023. * Natacha Hernadez RN - 03/11/2023 10:54 AM EDT Pre Procedure Patient Instructions Procedure Location hospital:[facility] [address], [facility]- If your arrival is scheduled between 6:30a-4:30p: Enter building at Outpatient [facility], turn right [facility] elevator to 2nd floor waiting room. Procedure Date 03/17/23 Arrival Time Per Physicians Instructions Your doctor [...] with a few sips of water only: TYLENOL IF NEEDED FOR PAIN, ZOFRAN IF NEEDED FOR NAUSEA, PROTONIX Hold or reduce the dosage of the following medication, as discussed: ASPIRIN Hold Cialis/Tadalafil for 3 days prior to procedure Jardiance (Empagliflozin): Discontinue 3 days prior to your procedure. and Trulicity (Dulaglutide):Continue to take as prescribed EXCEPT do not take day of procedure. Stop all supplements, vitamins and herbal [...] on when to stop. Procedure Preparation Diet Restrictions:Clear liquids ONLY from midnight the day before your procedure until midnight themorning of your procedure (water, black coffee with no milk or cream, juice without pulp, Ensure Clear, non-red Gatorade, chicken broth, beef broth and bone broth without noodles) and no food or drink including gum or mints after midnight the morning of your procedure. While taking TRULICITY your stomach doesn't empty as quickly and can cause you to inhale your stomach contents while under anesthesia. It is important you do not stop taking this medication unless instructed by your doctor. Skin Preparation: Wash with Hibiclens or an antibacterial soap (e.g. Dial soap) 4 days prior and morning of procedure., Using a clean washcloth, wash from neck to toes for 3 minutes. Gently clean the area where your surgery will be done thoroughly., and Do not use Hibiclens on or near your face, eyes, ears or head. Do not put on any deodorants, lotions, powders, or oils afterwards. Be sure to put on clean clothes Other Preparation: Call your surgeon right away if you get any wounds, cuts, scrapes, scabs, rashes, bug bites at or near your operative site or if you have any fever, cold or flu symptoms. Day of Procedure Patient Instruction: Do not smoke, vape, chew tobacco, drink alcohol or use recreational drugs on the day of your procedure Remove all jewelry, piercings, and metal accessories Do not wear artificial nails and only clear nail ethiopian on natural nails. Nails must be trimmed [...] make-up, lotions, creams, powders, fragrances or deodorant Do not bring valuables or money Bring a copy of your Living Will and/or Medical Durable Power of Carpenter if you have one Bring a list of current medications including name and dosage Bring a picture ID and insurance card Bring Walker or other orthopedic device necessary for postop and Bring Storage case for eyeglasses,hearing aids, dentures, etc If you are going home the same day as your procedure, a support person should accompany you to the facility and must transport you home. If you plan to take public transportation of any sort, your support person must accompany you home. You will need someone to stay with you for 24 hours after yourprocedure with sedation of any kind. Comments: The information and visitor policy was reviewed with you during your Pre- Admission Testing interview and you verbalized understanding. If you have any additional questions please contact [phone] To pre-register for your procedure please call [phone] Option 1 For financial questions regarding your procedure at a [facility] facility, please contact [phone] For financial questions regarding anesthesia at a [facility], please contact [phone] For [facility] Patient Portal help please call [phone] documented in this encounter Plan of Treatment Upcoming Encounters Date Type Department Care Team (Late st Contact Info) Description 03/24/2024 9:00 AM EDT Office Visit Neurology - [facility] [address] [facility] [address] [place] [phone] Martell Calderon MD [address] [facility] [place] [address] [place] [address] TREMORS/ MEDICARE, FOR LIFE 03/28/2024 8:30 AM EDT Office Visit Primary Care - [address] [phone] [place] [address] [place] [phone] AWV 04/06/2024 9:45 AM EST Lab [facility] - [facility] [address] [facility] [address] [place] [address] CBCMP,CEA,FEST 04/06/2024 10:15 AM EST Office Visit [facility] - [facility] [address] [facility] [address] [place] [address] Georgi Butterfield MD [address] [place] [address] 6 MTH FU W/LABS, REV SCAN 04/13/2024 9:30 AM EST Office Visit Surgical Oncology - [facility] [address] [facility] [address] [place] [address] Delvis Cheek MD [address] [facility] [address] [place] [address] 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 Scheduled Orders Name Type Priority Associated Diagnoses Orde r Schedule POCT Glucose Point of Care Testing STAT One Time for 1 Occurrences starting 03/17/2023 until 03/17/2023 documented as of this encounter Procedures Procedure Name Priority Date/Time Associated Diagnosis Comments HEMOGLOBIN AND HEMATOCRIT Routine 03/18/2023 5:08 AM EDT BASIC METABOLIC PANEL Routine 03/18/2023 5:[address] ARTHRP KNE CONDYLE&PLATU MEDIAL&LAT COMPARTMENTS 03/17/2023 9:16 AM EDT Primary osteoarthritis of right knee Special Needs Daxa Summers/mg mcarthur POCT GLUCOSE Routine 03/17/2023 8:11 AM EDT documented in this encounter Results * Hemoglobin and Hematocrit (03/18/2023 5:08 AM EDT) Hemoglobin 13.9 13.0 - 17.3 g/dL [facility] Hematocrit 42.4 38.0 - 52.0 % [facility] Blood BLOOD SPECIMEN / Unknown 03/18/2023 5:08 AM EDT 03/18/2023 5:12 AM EDT Karly DALLAS HEMATOLOGY ORDERABLE S [facility] [address] [place] [address] * (ABNORMAL) Basic Metabolic Panel (03/18/2023 5:08 AM EDT) Sodium 136 135 - 145 mmol/L [facility] Potassium 4.6 3.5 - 5.3 mmol/L [facility] Chloride 102 98 - 107 mmol/L [facility] CO2 26 22 - 29 mmol/L [facility] Glucose 159(H) 70 - 99 mg/dL [facility] BUN 19 8 - 23 mg/dL [facility] Creatinine 1.2 0.7 - 1.3 mg/dL [facility] Anion Gap 9 2 - 17 mmol/L [facility] Osmolaliy Calculated 277 270 - 287 mOsm/kg [facility] Calcium 8.9 8.8 - 10.2 mg/dL [facility] Est, Glom Filt Rate 67 >=60 mL/min/1.7 3m?? [facility] Comment: [...] in adults. Blood BLOOD SPECIMEN / Unknown 03/18/2023 5:08 AM EDT 03/18/2023 5:11 AM EDT Karly DALLAS CHEMISTRY ORDERABLES Performing Organization Address [facility] Co de Phone Number [place] [phone] [facility] [address] [place] [address] * POCT Glucose (03/17/2023 8:11 AM EDT) POC Glucose 108.0 65.0 - 110.0 mg/dL [facility] Comment:MP - AMB PACU Blood 03/17/2023 8:11 AM EDT 03/17/2023 8:11 AM EDT Maurice Panchal MD POINT OF CARE TEST O RDERABLES Performing Organization Address [facility] Co de Phone Number [facility] [address] [place] [phone] documented in this encounter Visit Diagnoses Diagnosis DJD (degenerative joint disease)- Primary Osteoarthrosis, unspecified whether generalized or localized, unspecified site S/P total knee arthroplasty, right Primary osteoarthritis of right knee Primary localized osteoarthrosis, lower leg documented in this encounter Admitting Diagnoses Diagnosis DJD (degenerative joint disease) Osteoarthrosis, unspecified whether generalized or localized, unspecified site Primary osteoarthritis of right knee Primary localized osteoarthrosis, lower leg documented in this encounter Administered Medications Inactive Administered Medications - up to 3 most recent administrations Medication Order MAR Action Action Date Dose Rate Site acetaminophen (TYLENOL) tablet 1,000 mg 1,000 mg, Oral, ONCE, 1 dose, On Wed03/17/23 at 0800, Administer 30-60 minutes prior to surgery., 1000 mg of acetaminophen in preop, Pre-op (day of surgery) Given 03/17/2023 8:07 AM EDT 1,000 mg acetaminophen (TYLENOL) tablet 1,000 mg 1,000 mg, Oral, EVERY 8 HOURS, 9 doses, First dose on Wed03/17/23 at 1400, Last dose on Wed03/20/23 at 0600, Maximum dose of acetaminophen is 4000 mg from all sources in 24 hours., Post-op Given 03/18/2023 5:37 AM EDT 1,000 mg Given 03/17/2023 9:37 PM EDT 1,000 mg Given 03/17/2023 4:15 PM EDT 1,000 mg aspirin EC tablet 81 mg 81 mg, Oral, 2 TIMES DAILY, 60 doses, First dose on Wed03/18/23 at 0900, Last dose on Wed04/16/23 at 2100, For DVT Prophylaxis, Post-op Given 03/18/2023 9:01 AM EDT 81 mg atorvastatin (LIPITOR) tablet 40 mg 40 mg, Oral, EVERY MORNING, First dose on Wed03/18/23 at 0900, Until Discontinued Given 03/18/2023 9:01 AM EDT 40 mg ceFAZolin (ANCEF) 2,000 mg in sodium chloride 0.9 % 100 mL IVPB (mini-bag) 2,000 mg, IntraVENous, EVERY 8 HOURS, 2 doses, First dose on Wed03/17/23 at 1700, Last dose on Wed03/18/23 at 0100, Antimicrobial Indications: Surgical Prophylaxis, Post-op New Bag 03/18/2023 1:20 AM EDT 2,000 mg 2 00 mL/hr New Bag 03/17/2023 4:16 PM EDT 2,000 mg 200 mL/hr celecoxib (CELEBREX) capsule 400 mg 400 mg, Oral, ONCE, 1 dose, On Wed03/17/23 at 0800, Administer 60 minutes prior to surgery., Pre-op (day of surgery) Given 03/17/2023 8:07 AM EDT 400 mg empagliflozin (JARDIANCE) tablet 25 mg 25 mg, Oral, DAILY, First dose on Domenica 03/18/23 at 0900, Until Discontinued, Indication of Use: Type 2 diabetes Given 03/18/2023 9:01 AM EDT 25 mg ketorolac (TORADOL) injection 15 mg 15 mg, IntraVENous, EVERY 6 HOURS, 8 doses, First dose on Wed03/17/23 at 1400, Last dose on Wed03/19/23 at 0800, Do not administer for more than 2 days., Post-op Given 03/18/2023 9:01 AM EDT 15 mg Given 03/18/2023 3:32 AM EDT 15 mg Given 03/17/2023 9:37 PM EDT 15 mg lactated ringers IV soln infusion IntraVENous, at 50 mL/hr, CONTINUOUS, Starting on Wed03/17/23 at 0800, Preoperative use ONLY for NON-DIALYSIS patients, Pre-op (day of surgery), Routine Restarted 03/17/2023 10:27 AM EDT NoRateChange 03/17/2023 9:16 AM EDT 50 mL/hr New Bag 03/17/2023 8:23 AM EDT 50 mL/hr lactated ringers IV soln infusion IntraVENous, at 100 mL/hr, CONTINUOUS, Starting on Wed03/17/23 at 1215, Convert to hep-lock(saline lock) when taking PO fluids, BP stable and urine output greater than or equal to 30 ml/hr, Post-op New Bag 03/17/2023 2:45 PM EDT 100 mL/hr lactated ringers IV soln infusion IntraVENous, at 125 mL/hr, CONTINUOUS, Starting on Wed03/17/23 at 1100, PACU only metFORMIN (GLUCOPHAGE) tablet 1,000 mg 1,000 mg, Oral, 2 TIMES DAILY WITH MEALS, First dose on Wed03/17/23 at 1700, Until Discontinued Given 03/18/2023 9:03 AM EDT 1,000 mg Given 03/17/2023 4:16 PM EDT 1,000 mg ondansetron (ZOFRAN) 4 MG/2ML injection 1 dose, Starting on Wed03/17/23 at 0841, Until Wed03/17/23 at 0845, Karissa Mendieta: cabinet override, Karissa Mendieta: cabinet override ondansetron (ZOFRAN) injection 4 mg 4 mg, IntraVENous, EVERY 6 HOURS PRN, Starting on Wed03/17/23 at 0839, Until Wed03/17/23 at 1151, Nausea, Vomiting Given 03/17/2023 8:45 AM EDT 4 mg ondansetron (ZOFRAN) injection 4 mg 4 mg, IntraVENous, EVERY 6 HOURS PRN, Starting on Wed03/17/23 at 1151, Until Wed03/18/23 at 1533, Nausea, Vomiting, Administer if oral route cannot be used., Post-op ondansetron (ZOFRAN-ODT) disintegrating tablet 4 mg 4 mg, Oral, EVERY 6 HOURS PRN, Starting on Wed03/17/23 at 1151, Until Wed03/18/23 at 1533, Nausea, Vomiting, Use Zofran(ondansetron) before promethazine., Post-op oxyCODONE (ROXICODONE) immediate release tablet 10 mg 10 mg, Oral, EVERY 4 HOURS PRN, Starting on Wed03/17/23 at 1151, Until Domenica 03/18/23 at 1533, Pain Severe (7-10), Post-op oxyCODONE (ROXICODONE) immediate release tablet 5 mg 5 mg, Oral, EVERY 4 HOURS PRN, Starting on Wed03/17/23 at 1151, Until Domenica 03/18/23 at 1533, Pain Moderate (4-6), Post-op Given 03/18/2023 12:30 PM EDT 5 mg Given 03/17/2023 6:03 PM EDT 5 mg pantoprazole (PROTONIX) tablet 40 mg 40 mg, Oral, DAILY BEFORE BREAKFAST, First dose on Wed03/18/23 at 0700, Until Discontinued, Do not crush or break. Given 03/18/2023 5:37 AM EDT 40 mg ropivacaine 0.2% (NAROPIN) elastomeric infusion SOLN 500 mL 500 mL, Infiltration, at 6 mL/hr, CONTINUOUS, Starting on Wed03/17/23 at 0900, For 4 days, Do not remove catheter dressing without notifying anesthesiologist Assess pain q4hrs May increase/decrease 2 ml/hr [id number] for adequate pain control pain up to max of 14 ml/hr Decrease infusion rate to 4 ml/hr [id number] prior to physical therapy or ambulation for lower extremity nerve catheters. Rate/Dose Change 03/17/2023 11:15 AM EDT 8 mL/hr New Bag 03/17/2023 10:39 AM EDT 500 mLs 6 mL/hr documented in this encounter Active and Recently Administered Medications Times are shown in EDT. Scheduled Medication Order 03/16/2023 03/17/2023 03/18/2023 acetaminophen (TYLENOL) tablet 1,000 mg (COMPLETED) 1,000 mg, Oral, ONCE, 1 dose, On Wed03/17/23 at 0800, Administer 30-60 minutes prior to surgery., 1000 mg of acetaminophen in preop, Pre-op (day of surgery) 0807 (Given - Provider: Karissa Mendieta RN) acetaminophen (TYLENOL) tablet 1,000 mg 1,000 mg, Oral, EVERY 8 HOURS, 9 doses, First dose on Wed03/17/23 at 1400, Last dose on Wed03/20/23 at 0600, Maximum dose of acetaminophen is 4000 mg from all sources in 24 hours., Post-op 1615 (Given - Provider: Ramirez Agosto RN)2137 (Given - Provider: Daryl Morales, RN) 0537 (Given - Provider: Daryl Morales, SUZANNE) aspirin EC tablet 81 mg 81 mg, Oral, 2 TIMES DAILY, 60 doses, First dose on Domenica 03/18/23 at 0900, Last dose on Wed04/16/23 at 2100, For DVT Prophylaxis, Post-op 09 (Given - Provid er: Ramirez Agosto RN) atorvastatin (LIPITOR) tablet 40 mg 40 mg, Oral, EVERY MORNING, First dose on Domenica 03/18/23 at 0900, Until Discontinued 900 (Given - Provid er: Ramirez Agosto RN) ceFAZolin (ANCEF) 2,000 mg in sodium chloride 0.9 % 100 mL IVPB (mini-bag) (COMPLETED) 2,000 mg, IntraVENous, HOSPICE CARE TRANSITIONS COORDINATOR TO O.R., 1 dose, On Wed03/17/23 at 0800, Antimicrobial Indications: Surgical Prophylaxis, Administer within 1 hour prior to incision. Recommend to repeat in 3-4 hours after initial dose if still intra-op., Pre-op (day of surgery) 0916 (New Bag - Provider: MARIANA Chanel) ceFAZolin (ANCEF) 2,000 mg in sodium chloride 0.9 % 100 mL IVPB (mini-bag) (COMPLETED) 2,000 mg, IntraVENous, EVERY 8 HOURS, 2 doses, First dose on Wed03/17/23 at 1700, Last dose on Wed03/18/23 at 0100, Antimicrobial Indications: Surgical Prophylaxis, Post-op 1616 (New Bag - Provider: Ramirez Agosto RN)1627 (Stopped - Provider: Ramirez Agosto RN) 0120 (New Bag - Provider: Daryl Morales RN)0150 (Stopped - Provider: Daryl Morales RN) celecoxib (CELEBREX) capsule 200 mg 200 mg, Oral, DAILY, 30 doses, First dose on Wed03/20/23 at 0900, Last dose on Wed04/18/23 at 0900, Post-op celecoxib (CELEBREX) capsule 400 mg (COMPLETED) 400 mg, Oral, ONCE, 1 dose, On Wed03/17/23 at 0800, Administer 60 minutes prior to surgery., Pre-op (day of surgery) 08 (Given - Provider: Karissa Mendieta RN) dulaglutide (TRULICITY) SC injection 1.5 mg 1.5 mg, SubCUTAneous, WEEKLY, First dose on Wed03/19/23 at 0900, Until Discontinued, This is a non-formulary patient supplied medication, please send to pharmacy for identification and labeling. empagliflozin (JARDIANCE) tablet 25 mg 25 mg, Oral, DAILY, First dose on Wed03/18/23 at 0900, Until Discontinued, Indication of Use: Type 2 diabetes 900 (Given - Provid er: Ramirez Agosto RN) ketorolac (TORADOL) injection 15 mg 15 mg, IntraVENous, EVERY 6 HOURS, 8 doses, First dose on Wed03/17/23 at 1400, Last dose on Wed03/19/23 at 0800, Do not administer for more than 2 days., Post-op 1616 (Given - Provider: Ramirez Agosto RN)2137 (Given - Provider: Daryl Morales RN) 0332 (Given - Provider: Daryl Morales RN)0901 (Given - Provider: Ramirez Agosto RN) metFORMIN (GLUCOPHAGE) tablet 1,000 mg 1,000 mg, Oral, 2 TIMES DAILY WITH MEALS, First dose on Wed03/17/23 at 1700, Until Discontinued 1616 (Given - Provider: Ramirez Agosto RN) 0903 (Given - Provider: Ramirez Agosto RN) olmesartan (BENICAR) tablet 10 mg 10 mg, Oral, DAILY, First dose on Domenica 03/18/23 at 0900, Until Discontinued 1332 (Not Given - Provider: Ramirez Agosto RN - Reason: Patient/family refused) pantoprazole (PROTONIX) tablet 40 mg 40 mg, Oral, DAILY BEFORE BREAKFAST, First dose on Domenica 03/18/23 at 0700, Until Discontinued, Do not crush or break. 0537 (Given - Provid er: Daryl Morales RN) tranexamic acid (CYKLOKAPRON) 1,900 mg in sodium chloride 0.9 % 100 mL IVPB (COMPLETED) 1,900 mg, IntraVENous, at 400 mL/hr, Administer over 15 Minutes, HOSPICE CARE TRANSITIONS COORDINATOR TO O.R., On Wed03/17/23 at 0800, For 1 dose, One time dose for unilateral Total Hip or Knee Arthroplasty. To be administered by anesthesia staff after induction of anesthesia following antibiotic but prior to incision, Pre-op (day of surgery) 925 (New Bag - Provider: MARIANA Chanel) Continuous Medication Order 03/16/2023 03/17/2023 03/18/2023 lactated ringers IV soln infusion (CANCELED) IntraVENous, at 50 mL/hr, CONTINUOUS, Starting on Wed03/17/23 at 0800, Preoperative use ONLY for NON-DIALYSIS patients, Pre-op (day of surgery), Routine 08 (New Bag - Provider: Karissa Mendieta RN)0916 (NoRateChange - Provider: MARIANA Chanel)1026 (Paused - Provider: MARIANA Chanel - Comment: Switch to gravity)1027 (Restarted - Provider: MARIANA Chanel) 1217 (Stopped - Provider: Ramirez Agosto, RN) lactated ringers IV soln infusion IntraVENous, at 100 mL/hr, CONTINUOUS, Starting on Wed03/17/23 at 1215, Convert to hep-lock(saline lock) when taking PO fluids, BP stable and urine output greater than or equal to 30 ml/hr, Post-op 1445 (New Bag - Provider: Ramirez Agosto, RN)2138 (Stopped - Provider: Daryl Morales RN) 1217 (Stopped - Provider: Ramirez Agosto, RN) lactated ringers IV soln infusion IntraVENous, at 125 mL/hr, CONTINUOUS, Starting on Wed03/17/23 at 1100, PACU only 1248 (Not Given - Provider: Ramirez Agosto RN - Reason: Other - Comment: dc) 1217 (Stopped - Provider: Ramirez Agosto, SUZANNE) ropivacaine 0.2% (NAROPIN) elastomeric infusion SOLN 500 mL 500 mL, Infiltration, at 6 mL/hr, CONTINUOUS, Starting on Wed03/17/23 at 0900, For 4 days, Do not remove catheter dressing without notifying anesthesiologist Assess pain q4hrs May increase/decrease 2 ml/hr [id number] for adequate pain control pain up to max of 14 ml/hr Decrease infusion rate to 4 ml/hr [id number] prior to physical therapy or ambulation for lower extremity nerve catheters. 1039 (New Bag - Provider: Jennie Verdugo, RN)1115 (Rate/Dose Change - Provider: Jennie Verdugo RN) 1217 (Stopped - Provider: Ramirez Agosto RN) PRN Medication Order 03/16/2023 03/17/2023 03/18/2023 aluminum & magnesium hydroxide-simethicone (MAALOX) 200-200-20 MG/5ML suspension 30 mL 30 mL, Oral, EVERY 6 HOURS PRN, Starting on Wed03/17/23 at 1151, Until Domenica 03/18/23 at 1533, Indigestion, Post-op bisacodyl (DULCOLAX) suppository 10 mg 10 mg, Rectal, DAILY PRN, Starting on Wed03/17/23 at 1151, Until Domenica 03/18/23 at 1533, Constipation, Use oral route first. Use before Milk of Magnesia, Post-op cyclobenzaprine (FLEXERIL) tablet 5 mg 5 mg, Oral, 3 TIMES DAILY PRN, Starting on Wed03/17/23 at 1151, Until Domenica 03/18/23 at 1533, Muscle spasms diphenhydrAMINE (BENADRYL) capsule 25 mg(Linked Group 1) 25 mg, Oral, ONCE PRN, 1 dose, Starting on Wed03/17/23 at 1151, Until Domenica 03/18/23 at 1151, Itching, Post-op diphenhydrAMINE (BENADRYL) injection 25 mg(Linked Group 1) 25 mg, IntraVENous, ONCE PRN, 1 dose, Starting on Wed03/17/23 at 1151, Until Domenica 03/18/23 at 1151, Itching, Administer if oral route cannot be used., Post-op HYDROmorphone (DILAUDID) injection 0.5 mg 0.5 mg, IntraVENous, EVERY 4 HOURS PRN, Starting on Wed03/17/23 at 1151, Until Domenica 03/18/23 at 1533, Pain Severe (7-10), if pain is unrelieved with PO medications, If oral and IV narcotics ordered, use oral first and only use IV if oral is ineffective or cannot take oral. Do Not give oral and IV within 1 hour of each other unless specifically ordered., Post-op ondansetron (ZOFRAN) injection 4 mg (CANCELED) 4 mg, IntraVENous, EVERY 6 HOURS PRN, Starting on Wed03/17/23 at 0839, Until Wed03/17/23 at 1151, Nausea, Vomiting 0845 (Given - Provider: Karissa Mendieta RN) ondansetron (ZOFRAN) injection 4 mg(Linked Group 2) 4 mg, IntraVENous, EVERY 6 HOURS PRN, Starting on Wed03/17/23 at 1151, Until Domenica 03/18/23 at 1533, Nausea, Vomiting, Administer if oral route cannot be used., Post-op ondansetron (ZOFRAN-ODT) disintegrating tablet 4 mg(Linked Group 2) 4 mg, Oral, EVERY 6 HOURS PRN, Starting on Wed03/17/23 at 1151, Until Domenica 03/18/23 at 1533, Nausea, Vomiting, Use Zofran(ondansetron) before promethazine., Post-op oxyCODONE (ROXICODONE) immediate release tablet 10 mg(Linked Group 3) 10 mg, Oral, EVERY 4 HOURS PRN, Starting on Wed03/17/23 at 1151, Until Domenica 03/18/23 at 1533, Pain Severe (7-10), Post-op 1803 (See Alternative - Provider: Ramirez Agosto RN) 1230 (See Alternative - Provider: Ramirez Agosto RN) oxyCODONE (ROXICODONE) immediate release tablet 5 mg(Linked Group 3) 5 mg, Oral, EVERY 4 HOURS PRN, Starting on Wed03/17/23 at 1151, Until Domenica 03/18/23 at 1533, Pain Moderate (4-6), Post-op 180 (Given - Provider: Ramirez Agosto RN) 1230 (Given - Provider: Ramirez Agosto RN) sod chloride IRR soln 0.9 % 34.25 mL with EPINEPHrine 0.25 mL, ketamine (KETALAR) 30 mg, ketorolac (TORADOL) 30 MG/ML 15 mg, ropivacaine (NAROPIN) 15 mL (CANCELED) PRN, Starting on Wed03/17/23 at 0949, Intra-op 0949 (Given - Provider: Maurice Panchal MD) Linked Groups Order Group 1: diphenhydrAMINE (BENADRYL) capsule 25 mgJump to med 25 mg, Oral, ONCE PRN, 1 dose, Starting on Wed03/17/23 at 1151, Until Domenica 03/18/23 at 1151, Itching, Post-op Or diphenhydrAMINE (BENADRYL) injection 25 mgJump to med 25 mg, IntraVENous, ONCE PRN, 1 dose, Starting on Wed03/17/23 at 1151, Until Domenica 03/18/23 at 1151, Itching, Administer if oral route cannot be used., Post-op Group 2: ondansetron (ZOFRAN-ODT) disintegrating tablet 4 mgJump to med 4 mg, Oral, EVERY 6 HOURS PRN, Starting on Wed03/17/23 at 1151, Until Domenica 03/18/23 at 1533, Nausea, Vomiting, Use Zofran(ondansetron) before promethazine., Post-op Or ondansetron (ZOFRAN) injection 4 mgJump to med 4 mg, IntraVENous, EVERY 6 HOURS PRN, Starting on Wed03/17/23 at 1151, Until Domenica 03/18/23 at 1533, Nausea, Vomiting, Administer if oral route cannot be used., Post-op Group 3: oxyCODONE (ROXICODONE) immediate release tablet 5 mgJump to med 5 mg, Oral, EVERY 4 HOURS PRN, Starting on Wed03/17/23 at 1151, Until Domenica 03/18/23 at 1533, Pain Moderate (4-6), Post-op Or oxyCODONE (ROXICODONE) immediate release tablet 10 mgJump to med 10 mg, Oral, EVERY 4 HOURS PRN, Starting on Wed03/17/23 at 1151, Until Domenica 03/18/23 at 1533, Pain Severe (7-10), Post-op documented in this encounter Additional Health Concerns Assessment Noted Time A fall risk assessment has been complete d for the patient 02/26/2023 9:45 AM EDT documented as of this encounter Care Teams Placement Coordinator Relationship Specialty Start Date End Date Felicitas Monaco MD PCP - General Family Medicine 06/18/22 07/05/23 documented as of this encounter
--- OUTSIDE RECORDS SUMMARY | 2024-01-11 22:15 | XMS_ITS | Encounter Summary ---
Author Organization [facility] Address [address] [place] [address] Care Team Providers Care Early Childhood Education Instructor Name Role Phone Felicitas Monaco MD Primary Care Provider [phone] Reason for Referral * Eval and Treat (Routine) - Closed Specialty Diagnoses / Procedures Referred By Rachid jimenez Referred To Contact Physical Therapy Diagnoses Presence of left artificial knee joint Maurice Panchal MD [address] [address] PT/OT, [facility] [address] [facility] [address] Referral ID Status Reason Start Date Expiration Date V isits Requested Visits Authorized [id number] Closed Specialty Services Required 01/06/2023 07/05/2023 1 1 Scheduling Instructions [facility] Physical Therapy [address] [facility] [id number] Question Answer Reason For External Referral? Patient Preference Comments Physical Therapy / Total Joint Protocol 3 x's weekly for 4-6 weeks Encounter Details Date Type Department Care Team (Late st Contact Info) Description 01/06/2023 Orders Only Orthopaedics - [place] [id number] [phone] Maurice Panchal MD [address] [address] Presence of left artificial knee joint (Primary Dx) Social History Tobacco Use Types [...] 9:00 AM EDT Office Visit Neurology - [facility] [address] [place] [phone] Martell Calderon MD [address] [facility] [address] [place] [address] TREMORS/ MEDICARE, FOR LIFE 03/28/2024 8:30 AM EDT Office Visit Primary Care - [address] [phone] Cheo Santoyo DO [address] [place] [phone] AWV 04/06/2024 9:45 AM EST Lab [facility] - [facility] [address] [facility] [address] [place] [address] CBCMP,CEA,FEST 04/06/2024 10:15 AM EST Office Visit [facility] - [facility] [address] [facility] [address] [place] [address] Georgi Butterfield MD [address] [place] [address] 6 MTH FU W/LABS, REV SCAN 04/13/2024 9:30 AM EST Office Visit Surgical Oncology - [facility] [address] [facility] [address] [place] [address] Delvis Cheek MD [address] [facility] [address] [place] [phone] 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 Scheduled Referrals Name Type Priority Associated Diagnoses Orde r Schedule RSF - [facility]I Physical Therapy - [facility] Outpatient Referral Routine Presence of left artificial knee joint Ordered: 01/06/2023 documented as of this encounter Visit Diagnoses Diagnosis Presence of left artificial knee joint- Primary Knee joint replacement by other means documented in this encounter Care Teams Early Childhood Education Instructor Relationship Specialty Start Date End Date Felicitas Monaco MD PCP - General Family Medicine 06/18/22 07/05/23 documented as of this encounter
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
--- OUTSIDE RECORDS SUMMARY | 2024-01-11 22:15 | XMS_ITS | Encounter Summary ---
Author Organization [facility] Address [address] [place] [address] Care Team Providers Care Occupational Health And Safety Adviser Name Role Phone Feliictas Monaco MD Primary Care Provider [phone] Encounter Details Date Type Department Care Team (Late st Contact Info) Description 03/04/2023 Orders Only Orthopaedics - [place] [id number] [place] [phone] Maurice Panchal MD [address] [id number] Preop testing Social History Tobacco Use Types Packs/Day [...] - [facility] [address] [facility] [address] [place] [address] Martell Calderon MD [address] [facility] [address] [place] [address] TREMORS/ MEDICARE, FOR LIFE 03/28/2024 8:30 AM EDT Office Visit Primary Care - [address] [phone] Cheo Santoyo DO [address] [place] [phone] AWV 04/06/2024 9:45 AM EST Lab [facility] - [facility] [address] [facility] [address] [place] [address] CBCMP,CEA,FEST 04/06/2024 10:15 AM EST Office Visit [facility] - [facility] [address] [facility] [address] [place] [address] Georgi Butterfield MD [address] [place] [address] 6 MTH FU W/LABS, REV SCAN 04/13/2024 9:30 AM EST Office Visit Surgical Oncology - [facility] [address] [facility] [address] [place] [phone] Delvis Cheek MD [address] [facility] [address] [place] [address] 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 06/19/2024 10:30 AM EST Office Visit Orthopaedics- [place] [address] [facility] [address] [place] [address] Karly Bautista, BURT [address] [facility] [address] [place] [address] annual visit from date of surgery May/Jul 2024 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 documented as of this encounter Procedures Procedure Name Priority Date/Time Associated Diagnosis Comments CBC Routine 03/04/2023 1:03 PM EDT Preop testing COMPREHENSIVE METABOLIC PANEL Routine 03/04/2023 1:03 PM EDT Preop testing documented in this encounter Results * CBC (03/04/2023 1:03 PM EDT) WBC 6.6 3.8 - 10.6 x10e3/mcL [facility] RBC 5.19 4.00 - 5.60 x10e6/mcL [facility] Hemoglobin 16.2 13.0 - 17.3 g/dL [facility] Hematocrit 48.1 38.0 - 52.0 % [facility] MCV 92.7 84.0 - 100.0 fL [facility] MCH 31.2 27.0 - 34.5 pg [facility] MCHC 33.7 32.0 - 36.0 g/dL [facility] RDW 12.7 11.0 - 16.0 % [facility] Platelets 298 140 - 440 x10e3/mcL [facility] MPV 9.9 7.2 - 13.2 fL [facility] NRBC Automated 0.0 0.0 - 0.2 % [facility] NRBC Absolute 0.000 0.000 - 0.012 x10e3/mcL [facility] Blood BLOOD SPECIMEN / Unknown 03/04/2023 1:03 PM EDT 03/04/2023 4:03 PM EDT Maurice Panchal MD HEMATOLOGY ORDERABLE S [facility] [address] [facility], [place] [address] * (ABNORMAL) Comprehensive Metabolic Panel (03/04/2023 1:03 PM EDT) Sodium 138 135 - 145 mmol/L [facility] Potassium 5.0 3.5 - 5.3 mmol/L [facility] Chloride 101 98 - 107 mmol/L [facility] CO2 26 22 - 29 mmol/L [facility] Glucose 144(H) 70 - 99 mg/dL [facility] BUN 19 8 - 23 mg/dL [facility] Creatinine 1.2 0.7 - 1.3 mg/dL [facility] Anion Gap 11 2 - 17 mmol/L [facility] Osmolaliy Calculated 280 270 - 287 mOsm/kg [facility] Calcium 10.3(H) 8.8 - 10.2 mg/dL [facility] Total Protein 6.8 6.4 - 8.3 g/dL [facility] Albumin 4.5 3.5 - 5.2 g/dL [facility] Globulin 2.3 1.9 - 4.4 g/dL [facility] Albumin/Globulin Ratio 2.00 1.00 - 2.70 [facility] Total Bilirubin 0.55 0.00 - 1.20 mg/dL [facility] Alk Phosphatase 91 40 - 130 unit/L [facility] AST 18 0 - 50 unit/L [facility] ALT 24 0 - 50 unit/L [facility] [...] adults. Blood BLOOD SPECIMEN / Unknown 03/04/2023 1:03 PM EDT 03/04/2023 4:03 PM EDT Maurice Panchal MD CHEMISTRY ORDERABLES [facility] [[email or web address] PHYSICIANS [place] [address] [facility] [place] [address] documented in this encounter Visit Diagnoses Diagnosis Preop testing Preoperative examination, unspecified documented in this encounter Additional Health Concerns Assessment Noted Time A fall risk assessment has been complete d for the patient 02/26/2023 9:45 AM EDT documented as of this encounter Care Teams Occupational Health And Safety Adviser Relationship Specialty Start Date End Date Felicitas Monaco MD PCP - General Family Medicine 06/18/22 07/05/23 documented as of this encounter
--- OUTSIDE RECORDS SUMMARY | 2024-01-11 22:15 | XMS_ITS | Encounter Summary ---
Author Organization [facility] Address [address] [place] [address] Care Team Providers Care Bag Loader Name Role Phone Felicitas Monaco MD Primary Care Provider [phone] Reason for Visit * Auth/Cert (Routine) Specialty Diagnoses / Procedures Referred By Rachid jimenez Referred To Contact Diagnoses Primary osteoarthritis of left knee Primary osteoarthritis of left knee [M17.12] Procedures RI ARTHRP KNE CONDYLE&PLATU MEDIAL&LAT COMPARTMENTS LEFT TOTAL KNEE ARTHROPLASTY, ROBOTIC Maurice Panchal MD [address] [address] Referral ID Status Reason Start Date Expiration Date Visits Re quested Visits Authorized [id number] 1 1 Encounter Details Date Type Department Care Team (Late st Contact Info) Description 12/21/2022 7:30 AM EDT - 12/21/2022 8:30 AM EDT Surgery [facility] [address] [address] Maurice Panchal MD [address] [address] LEFT TOTAL KNEE ARTHROPLASTY, ROBOTIC Surgery Details Date/Time Status Location OR Service Patient Class Case Cl ass Case Type Trauma Case? 12/21/2022 7:30 AM Posted [facility] OR [facility] OR 04 Orthopedics Outpatient Surgery Elective No Panel 1 Procedure LRB Anes Op Region Wound Class Comments LEFT TOTAL KNEE ARTHROPLASTY, ROBOTIC Left Regional Knee Class I Clean On Q Pump/Adductor Canal Block to be done in Pre Op Surgeon Surgeon Role Service Panel Maurice Panchal MD Primary Orthopedics 1 Special Needs Daxa Manager Student Services/Stewart 12/17 documented in this encounter Social History Tobacco [...] Sign Reading Time Taken Comments Blood Pressure 139/82 12/21/2022 6:35 AM EDT Pulse 78 12/21/2022 6:35 AM EDT Temperature 36.6 ??C (97.9 ??F) 12/21/2022 6:35 AM ED T Respiratory Rate 16 12/21/2022 6:35 AM EDT Oxygen Saturation 96% 12/21/2022 6:35 AM EDT Inhaled Oxygen Concentration - - Weight 100 kg (220 lb 7.4 oz) 12/21/2022 6:23 AM EDT Height 175.3 cm (5' 9.02) 12/21/2022 6:23 AM ED T Body Mass Index 32.54 12/21/2022 6:23 AM EDT documented in this encounter Discharge Instructions * Discharge Instructions* Tonia Skelton RN - 12/18/2022 1:23 PM EDT Images from the original note were not included. After Knee Replacement: The First Month You???ll [...] your leg to the starting point. ?? [id number] [employer]. All rights reserved. This information is not intended as a substitute for professional medical care. Always follow your healthcare professional's instructions. * Attachments The following attachments cannot be sent through Care Everywhere. * acetaminophen (oral) (Hungarian) * aspirin (oral) (Hungarian) * celecoxib (Hungarian) * Constipation (Hungarian) * DVT (Deep Vein Thrombosis) (Hungarian) * oxycodone (Hungarian) * Pulmonary Embolism (Hungarian) documented in this encounter Medications at Time of Discharge Medication Sig Dispensed Refills Start Date End Date oxyCODONE (ROXICODONE) 5 MG immediate release tabletIndications:S/P total knee arthroplasty, right Take 1 tablet by mouth every 4 hours as needed for Pain for up to 5 days. Max Daily Amount: 30 mg 30 tablet 03/17/2023 03/22/2023 acetaminophen (TYLENOL) 500 MG tablet Take 2 tablets by mouth in the morning and 2 tablets at noon and 2 tablets in the evening. 180 tablet 03/17/2023 07/06/2023 aspirin 81 MG EC tabletIndications:Chloé p Vein Thrombosis Prophylaxis Take 1 tablet by mouth 2 times daily Indications: Treatment to Prevent Deep Vein Thrombosis 60 tablet 03/18/2023 07/06/2023 celecoxib (CELEBREX) 200 MG capsule Take 1 capsule by mouth daily for 30 doses 30 capsule 03/18/2023 06/04/2023 oxyCODONE (ROXICODONE) 5 MG immediate release tabletIndications:Francisca ro osteoarthritis of left knee Take 1 tablet by mouth every 4 hours as needed for Pain for up to 5 days. Max Daily Amount: 30 mg 30 tablet 12/21/2022 12/26/2022 aspirin 81 MG EC tabletIndications:Chloé p Vein Thrombosis Prophylaxis Take 1 tablet by [...] as of this encounter Progress Notes * Brenden Perez - 12/21/2022 7:12 PM EDT Images from the original note were not included. Acute Care Physical Therapy Treatment Note Observation (OPERATING TABLE ASSEMBLER/PT Visit Days : 2) Time In: 1449 Time Out: 1522 (33 minutes) Acknowledge Orders PT Charge Capture Admitting Diagnosis: Primary osteoarthritis of left knee [M17.12] Procedure(s) (LRB): LEFT TOTAL KNEE ARTHROPLASTY, ROBOTIC (Left) Day of Surgery Treatment Diagnosis: Payor: MEDICARE / Plan: MEDICARE PART A AND B / Product Type: *No Product type* / SUBJECTIVE Martínez Toribio is a 67 y.o. male admitted with Osteoarthritis of knee. He has a past medical history of Ryan's esophagus, Cancer (HCC), Chronic back pain, Diabetes (HCC), DJD (degenerative jointdisease), GERD (gastroesophageal reflux disease), Hip pain, HTN (hypertension), Hyperlipidemia, Left bundle branch block (LBBB), Post-operative nausea and vomiting, Sleep apnea, and Spinal stenosis. Zenobia high also has a past surgical history that includes joint replacement (Right, 2011); back surgery (02/05/1986); hip surgery (Right, 06/18/2022); subtotal colectomy (2019); Upper gastrointestinal endoscopy (2019); Knee arthroscopy (Left, 10/13/2021); Hand surgery (Right, 2001); Cervical discectomy (03/31); Kidney stone surgery (2009); hemicolectomy (2020); shoulder surgery (Right, 2010); and Hand Carpectomy (Left, 2021). Subjective: Pt appropriate for PT per nursing. Pt agreeable to PT and denied feeling light headed or dizzy throughout. Pt reported improved pain from 4/10 to 3/10 during amb. Additional Pertinent History: Additional Pertinent Hx: WBAT s/p L TKA Social Environment Prior Level of Function Lives With: Spouse Type of Home: House Home Layout: One level Home Access: Stairs to enter without rails Home Equipment: Cane, Walker, rolling ADL Assistance: Independent Homemaking Assistance: Independent Ambulation Assistance: Independent Transfer Assistance: Independent History of Falls: No Comments: OBJECTIVE Vital Signs/Pain Lines/Drains/Precautions Vital Signs Pain Pain: 5/10 Peripheral IV 12/21/22 Posterior;Right Hand (Active) Precautions/Restrictions Restrictions/Precautions Restrictions/Precautions: Weight Bearing Lower Extremity Weight Bearing Restrictions Left Lower Extremity Weight Bearing: Weight Bearing As Tolerated Orientation/Cognition Vision/Hearing Cognition Overall Cognitive Status: WNL Orientation Overall Orientation Status: Within Normal Limits Orientation Level: Oriented X4 TREATMENT Transfer Training Sit to Stand: Contact guard assistance Stand to Sit: Contact guard assistance Ambulation Surface: Level tile Device: Rolling Walker Assistance: Contact guard assistance Quality of Gait: antalgic gait, no LOB, no buckling, improved ada. Gait Deviations: Slow Ada Distance: 200 ft Safety: Type of Devices: All fall risk precautions in place Education: Education Given To: Patient;Family Education Provided: Role of Therapy;Plan of Care;Home Exercise Program;Precautions;ADL Adaptive Strategies;Transfer Training;Energy Conservation;Fall Prevention Strategies;Equipment Education Method: Demonstration;Verbal;Teach Back;Printed Information/Hand-outs Barriers to Learning: None Education Outcome: Verbalized understanding;Demonstrated understanding;Continued education needed ASSESSMENT Assessment: Pt was pleasant and cooperative throughout. Pt demonstrated much improved tolerance to activity andstability on feet with improved pain management. Pt's spouse demonstrated understanding and abilityto provide CGA throughout amb. Pt will benefit from HHPT, RW use, supervision/CGA. POST ACUTE RECOMMENDATIONS Setting: Home Health Therapy Justification for Recommended Setting: Recommended to help patient obtain maximum functional independence. Equipment: RW Discharge Transportation Recommendations: No stretcher PLAN Frequency & Duration: BID for duration of hospital stay or until stated goals are met, whichever comes first. Interventions Planned (Treatment may consist of any combination of the following): Current Treatment Recommendations: Strengthening; Balance training; Functional mobility training; ROM; Transfer training; ADL/Self-care training; IADL training; Endurance training; Gait training; Stair training; Pain management; Positioning; Modalities; Equipment evaluation, education, & procurement; Patient/Caregiver education & training; Safety education & training; Home exercise program; Therapeutic activities Goals Short Term Goals Ground Support Equipment Fitter Goals Time Frame for Short Term Goals: 3 visits - goals met Short Term Goal 1: Pt will transfer STS c RW c CGA Short Term Goal 2: Pt will amb 150 ft c RW c CGA Short Term Goal 3: Pt will navigate curb c RW c CGA - goal met Therapist Signature: Brenden Guerrero Prevatte Date: 12/21/2022 * Brenden Perez - 12/21/2022 7:06 PM EDT Images from the original note were not included. Acute Care Physical Therapy Evaluation Observation (OPERATING TABLE ASSEMBLER/PT Visit Days : 1) Time In: 1449 Time Out: 1522 (33 minutes) Acknowledge Orders PT Charge Capture Admitting Diagnosis: Primary osteoarthritis of left knee [M17.12] Procedure(s) (LRB): LEFT TOTAL KNEE ARTHROPLASTY, ROBOTIC (Left) Day of Surgery Reason for Referral: Other abnormalities of gait and mobility (R26.89) Payor: MEDICARE / Plan: MEDICARE PART A AND B / Product Type: *No Product type* / SUBJECTIVE Martínez Toribio is a 67 y.o. male admitted with Osteoarthritis of knee. He has a past medical history of Ryan's esophagus, Cancer (HCC), Chronic back pain, Diabetes (HCC), DJD (degenerative jointdisease), GERD (gastroesophageal reflux disease), Hip pain, HTN (hypertension), Hyperlipidemia, Left bundle branch block (LBBB), Post-operative nausea and vomiting, Sleep apnea, and Spinal stenosis. Zenobia high also has a past surgical history that includes joint replacement (Right, 2011); back surgery (02/05/1986); hip surgery (Right, 06/18/2022); subtotal colectomy (2019); Upper gastrointestinal endoscopy (2019); Knee arthroscopy (Left, 10/13/2021); Hand surgery (Right, 2001); Cervical discectomy (03/31); Kidney stone surgery (2009); hemicolectomy (2020); shoulder surgery (Right, 2010); and Hand Carpectomy (Left, 2021). Subjective: Additional Pertinent History: WBAT s/p L TKA Social Environment Prior Level of Function Lives With: Spouse Type of Home: House Home Layout: One level Home Access: Stairs to enter without rails Home Equipment: Cane, Walker, rolling Entrance Stairs - Number of Steps: 1 ADL Assistance: Independent Homemaking Assistance: Independent Ambulation Assistance: Independent Transfer Assistance: Independent History of Falls: No Comments: OBJECTIVE Vital Signs/Pain Lines/Drains/Precautions Vital Signs Pain Pain: 5/10 Peripheral IV 12/21/22 Posterior;Right Hand (Active) Precautions/Restrictions Restrictions/Precautions Restrictions/Precautions: Weight Bearing Lower Extremity Weight Bearing Restrictions Left Lower Extremity Weight Bearing: Weight Bearing As Tolerated Orientation/Cognition Vision/Hearing Overall Cognitive Status: WNL Overall Orientation Status: Within Normal Limits Orientation Level: Oriented X4 Objective Assessment Balance Sitting - Dynamic: Good Standing - Static: Fair Standing - Dynamic: Fair FUNCTIONAL ACTIVITY Bed Mobility Supine to Sit: Contact guard assistance Scooting: Contact guard assistance Transfer Training Sit to Stand: Contact guard assistance;Minimal Assistance Stand to Sit: Contact guard assistance Ambulation Surface: Level tile Device: Rolling Walker Assistance: Minimal assistance Quality of Gait: antalgic, decreased weight bearing through LLE, decreased ada c 2 standing rest breaks 2/2 pain. Gait Deviations: Slow Ada Distance: 150 ft Stair Training # Steps : 1 Curbs: 2 Device: Rolling walker Assistance: Contact guard assistance Safety: Type of Devices: All fall risk [...] tolerance to work activity, Decreased strength, Decreased high-level IADLs, Decreased balance, Decreased endurance, Decreased coordination, Increased pain, Decreased posture. Benefits and precautions of physical therapy have been discussed with Mr. Toribio, and the following interventions are recommended: Strengthening, Balance training, Functional m obility training, ROM, Transfer training, ADL/Self-care training, IADL training, Endurance training, Gait training, Stair training, Pain management, Positioning, Modalities, Equipment evaluation, education, & procurement, Patient/Caregiver education & training, Safety education & training, Home exercise program, Therapeutic activities Goals Short Term Goals Ground Support Equipment Fitter Goals Time Frame for Short Term Goals: 3 visits Short Term Goal 1: Pt will transfer STS c RW c CGA Short Term Goal 2: Pt will amb 150 ft c RW c CGA Short Term Goal 3: Pt will navigate curb c RW c CGA - goal met Therapist Signature: Brenden Guerrero Prevatte Date: 12/21/2022. * Donna Robles RN - 12/14/2022 11:49 AM EDT Pre Procedure Patient Instructions Procedure Location hospital:[facility] [address] [facility]- Arrival before 6:30a: Park in front of the ER and enter through ER doors and check in with ER Registration. Procedure Date 12/21/2022 Arrival Time Per Physicians Instructions Medications: Medication to be taken the morning of surgery with a few sips of water only: pantoprazole, atorvastatin Hold or reduce the dosage of the following medication, as discussed: jardiance last dose 12/17/2022 Hold Cialis/Tadalafil for 3 days prior to procedure Stop all supplements, vitamins and herbal remedies [...] stop. Procedure Preparation Diet Restrictions:Clear liquids ONLY the day before surgery (water, black coffee with no milk or cream, juice without pulp, Ensure Clear, non-red Gatorade, chicken broth, beef broth and bone broth) and no food or drink including gum or mints after midnight. While taking trulicity your stomach doesn't empty as quickly and [...] Remove all jewelry, piercings, and metal accessories Avoid artifical nails and natural nails longer than 2 inches to make sure the oxygen probe fits properly Avoid using artificial eye lashes because they can cause [...] Living Will and/or Medical Durable Power of Bologna Lacer if you have one Bring a list of current medications including name and dosage Bring a picture ID and insurance card and any of the following that are applicable to you: ?? Inhalers ?? CPAP or BiPAP machine ?? Remote for spinal cord stimulator or other implanted device ?? Insulin pump supplies ?? Walker or other orthopedic device necessary for postop ?? Storage case for eyeglasses, hearing aids, dentures, etc ?? A loose button-up shirt if instructed . If you are going home the same day as your procedure, a support person should accompany you to the facility and must transport you home. If you plan to take public transportation of any sort, your support person must accompany you home. You will need someone to stay with you for 24 hours after yourprocedure with sedation of any kind. The information and visitor policy was reviewed with you during your Pre- Admission Testing interview and you verbalized understanding. If you have any additional questions please contact [phone] For financial questions regarding your procedure at a [facility], please contact [phone], option [phone] For financial questions regarding anesthesia at a [facility], please contact [phone] documented in this encounter Plan of Treatment Upcoming Encounters Date Type Department Care Team ([facility] st Contact Info) Description 03/24/2024 9:00 AM EDT Office Visit Neurology - Maryan Jacobsen Dr. [address] [place] [address] Martell Calderon MD [address] [place] [address] TREMORS/ MEDICARE, FOR LIFE 03/28/2024 8:30 AM EDT Office Visit Primary Care - [address] [address] Cheo Santoyo DO [address] [place] [phone] AWV 04/06/2024 9:45 AM EST Lab [facility] - [facility] [address] [facility] [address] [place] [phone] CBCMP,CEA,FEST 04/06/2024 10:15 AM EST Office Visit [facility] - [facility] [address] [facility] [address] [place] [address] Georgi Butterfield MD [address] [place] [address] 6 MTH FU W/LABS, REV SCAN 04/13/2024 9:30 AM EST Office Visit Surgical Oncology - [facility] [address] [facility] [address] [place] [address] Delvis Cheek MD [address] [facility] [address] [place] [id number] 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 06/19/2024 10:30 AM EST Office Visit Orthopaedics- Les Valencia [address] [facility] [address] [place] [phone] Karly Bautista, BURT [address] [place] [address] annual visit from date of surgery May/Jul 2024 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 documented as of this encounter Procedures Procedure Name Priority Date/Time Associated Diagnosis Comments RI ARTHRP KNE CONDYLE&PLATU MEDIAL&LAT COMPARTMENTS 12/21/2022 7:24 AM EDT Primary osteoarthritis of left knee Special Needs Daxacatarino Summers/Stewart 12/17 POCT GLUCOSE Routine 12/21/2022 7:02 AM EDT documented in this encounter Results * (ABNORMAL) POCT Glucose (12/21/2022 7:02 AM EDT) POC Glucose 127.0(H) 65.0 - 110.0 mg/dL [facility] Comment:MP - AMB PACU Blood 12/21/2022 7:02 AM EDT 12/21/2022 7:02 AM EDT Maurice Panchal MD POINT OF CARE TEST O RDERABLES Performing Organization Address City/State/[facility] Co de Phone Number [facility] [address] [place] [address] documented in this encounter Visit Diagnoses Diagnosis Osteoarthritis of knee- Primary Osteoarthrosis, unspecified whether generalized or localized, lower leg Primary osteoarthritis of left knee Primary localized osteoarthrosis, lower leg Primary osteoarthritis of left knee Primary localized osteoarthrosis, lower leg Primary osteoarthritis of left knee Primary localized osteoarthrosis, lower leg documented in this encounter Admitting Diagnoses Diagnosis Osteoarthritis of knee Osteoarthrosis, unspecified whether generalized or localized, lower leg Primary osteoarthritis of left knee Primary localized osteoarthrosis, lower leg documented in this encounter Administered Medications Inactive Administered Medications - up to 3 most recent administrations Medication Order MAR Action Action Date Dose Rate Site acetaminophen (TYLENOL) tablet 1,000 mg 1,000 mg, Oral, ONCE, 1 dose, On Wed12/21/22 at 0630, Administer 30-60 minutes prior to surgery., 1000 mg of acetaminophen in preop, Pre-op (day of surgery) Given 12/21/2022 6:57 AM EDT 1,000 mg acetaminophen (TYLENOL) tablet 1,000 mg 1,000 mg, Oral, EVERY 8 HOURS, 9 doses, First dose on Wed12/21/22 at 1400, Last dose on Wed12/24/22 at 0600, Maximum dose of acetaminophen is 4000 mg from all sources in 24 hours., Post-op Given 12/21/2022 2:14 PM EDT 1,000 mg ceFAZolin (ANCEF) 2,000 mg in sodium chloride 0.9 % 100 mL IVPB (mini-bag) 2,000 mg, IntraVENous, EVERY 8 HOURS, 2 doses, First dose on Wed12/21/22 at 1500, Last dose on Wed12/21/22 at 2300, Antimicrobial Indications: Surgical Prophylaxis, Post-op New Bag 12/21/2022 2:13 PM EDT 2,000 mg 200 mL/hr celecoxib (CELEBREX) capsule 400 mg 400 mg, Oral, ONCE, 1 dose, On Wed12/21/22 at 0630, Administer 60 minutes prior to surgery., Pre-op (day of surgery) Given 12/21/2022 6:58 AM EDT 400 mg diphenhydrAMINE (BENADRYL) capsule 25 mg 25 mg, Oral, ONCE PRN, 1 dose, Starting on Wed12/21/22 at 0945, Until Wed12/21/22 at 2119, Itching, Post-op diphenhydrAMINE (BENADRYL) injection 25 mg 25 mg, IntraVENous, ONCE PRN, 1 dose, Starting on Wed12/21/22 at 0945, Until Wed12/21/22 at 211, Itching, Administer if oral route cannot be used., Post-op empagliflozin (JARDIANCE) tablet 25 mg 25 mg, Oral, DAILY, First dose on Wed12/21/22 at 1200, Until Discontinued, Indication of Use: Type 2 diabetes Given 12/21/2022 2:14 PM EDT 25 mg ketorolac (TORADOL) injection 15 mg 15 mg, IntraVENous, EVERY 6 HOURS, 8 doses, First dose on Wed12/21/22 at 1400, Last dose on Wed12/23/22 at 0800, Do not administer for more than 2 days., Post-op Given 12/21/2022 3:33 PM EDT 15 mg lactated ringers IV soln infusion IntraVENous, at 50 mL/hr, CONTINUOUS, Starting on Wed12/21/22 at 0630, Preoperative use ONLY for NON-DIALYSIS patients, Pre-op (day of surgery), Routine New Bag 12/21/2022 6:58 AM EDT 50 mL/hr lactated ringers IV soln infusion IntraVENous, at 100 mL/hr, CONTINUOUS, Starting on Wed12/21/22 at 1015, Convert to hep-lock(saline lock) when taking PO fluids, BP stable and urine output greater than or equal to 30 ml/hr, Post-op New Bag 12/21/2022 12:13 PM EDT 100 mL/hr ondansetron (ZOFRAN) injection 4 mg 4 mg, IntraVENous, EVERY 6 HOURS PRN, Starting on Wed12/21/22 at 0945, Until Wed12/21/22 at 2118, Nausea, Vomiting, Administer if oral route cannot be used., Post-op ondansetron (ZOFRAN-ODT) disintegrating tablet 4 mg 4 mg, Oral, EVERY 6 HOURS PRN, Starting on Wed12/21/22 at 0945, Until Wed12/21/22 at 2118, Nausea, Vomiting, Use Zofran(ondansetron) before promethazine., Post-op oxyCODONE (ROXICODONE) immediate release tablet 10 mg 10 mg, Oral, EVERY 4 HOURS PRN, Starting on Wed12/21/22 at 0945, Until Wed12/21/22 at 2118, Pain Severe (7-10), Post-op oxyCODONE (ROXICODONE) immediate release tablet 5 mg 5 mg, Oral, EVERY 4 HOURS PRN, Starting on Wed12/21/22 at 0945, Until Wed12/21/22 at 2118, Pain Moderate (4-6), Post-op ropivacaine 0.2% (NAROPIN) elastomeric infusion SOLN 500 mL 500 mL, Infiltration, at 6 mL/hr, CONTINUOUS, Starting on Wed12/21/22 at 0800, For 4 days, Do not remove catheter dressing without notifying anesthesiologist Assess pain q4hrs May increase/decrease 2 ml/hr [id number] for adequate pain control pain up to max of 14 ml/hr Decrease infusion rate to 4 ml/hr [id number] prior to physical therapy or ambulation for lower extremity nerve catheters. New Bag 12/21/2022 8:45 AM EDT 500 mLs 6 mL/hr Thigh Right sod chloride IRR soln 0.9 % 34.25 mL with EPINEPHrine 0.25 mL, ketamine (KETALAR) 30 mg, ketorolac (TORADOL) 30 MG/ML 15 mg, ropivacaine (NAROPIN) 15 mL PRN, Starting on Wed12/21/22 at 0800, Intra-op Given 12/21/2022 8:00 AM EDT 50 mLs Knee Left documented in this encounter Active and Recently Administered Medications Times are shown in EDT. Scheduled Medication Order 12/19/2022 12/20/2022 12/21/2022 acetaminophen (TYLENOL) tablet 1,000 mg (COMPLETED) 1,000 mg, Oral, ONCE, 1 dose, On Wed12/21/22 at 0630, Administer 30-60 minutes prior to surgery., 1000 mg of acetaminophen in preop, Pre-op (day of surgery) 0657 (Given - Provid er: Rocío Garza RN) acetaminophen (TYLENOL) tablet 1,000 mg 1,000 mg, Oral, EVERY 8 HOURS, 9 doses, First dose on Wed12/21/22 at 1400, Last dose on Wed12/24/22 at 0600, Maximum dose of acetaminophen is 4000 mg from all sources in 24 hours., Post-op 1414 (Given - Provid er: Tonia Skelton RN) aspirin EC tablet 81 mg 81 mg, Oral, 2 TIMES DAILY, 60 doses, First dose on Wed12/22/22 at 0900, Last dose on Wed01/20/23 at 2100, For DVT Prophylaxis, Post-op atorvastatin (LIPITOR) tablet 40 mg 40 mg, Oral, DAILY, First dose on Wed12/21/22 at 1200, Until Discontinued 1056 (Not Given - Pr ovider: Tonia Skelton RN - Reason: Patient/family refused) ceFAZolin (ANCEF) 2,000 mg in sodium chloride 0.9 % 100 mL IVPB (mini-bag) (COMPLETED) 2,000 mg, IntraVENous, FREQUENCY CHECKER TO O.R., 1 dose, On Wed12/21/22 at 0630, Antimicrobial Indications: Surgical Prophylaxis, Administer within 1 hour prior to incision. Recommend to repeat in 3-4 hours after initial dose if still intra-op., Pre-op (day of surgery) 0725 (New Bag - Prov ider: MARIANA Astudillo)1057 (Stopped - Provider: Tonia Skelton RN) ceFAZolin (ANCEF) 2,000 mg in sodium chloride 0.9 % 100 mL IVPB (mini-bag) 2,000 mg, IntraVENous, EVERY 8 HOURS, 2 doses, First dose on Wed12/21/22 at 1500, Last dose on Wed12/21/22 at 2300, Antimicrobial Indications: Surgical Prophylaxis, Post-op 1413 (New Bag - Prov ider: Tonia Skelton RN)1712 (Stopped - Provider: Tonia Skelton RN) celecoxib (CELEBREX) capsule 200 mg 200 mg, Oral, DAILY, 30 doses, First dose on Wed12/23/22 at 0900, Last dose on Wed01/21/23 at 0900, Post-op celecoxib (CELEBREX) capsule 400 mg (COMPLETED) 400 mg, Oral, ONCE, 1 dose, On Wed12/21/22 at 0630, Administer 60 minutes prior to surgery., Pre-op (day of surgery) 0658 (Given - Provid er: Rocío Garza RN) empagliflozin (JARDIANCE) tablet 25 mg 25 mg, Oral, DAILY, First dose on Wed12/21/22 at 1200, Until Discontinued, Indication of Use: Type 2 diabetes 1414 (Given - Provid er: Tonia Skelton RN) ketorolac (TORADOL) injection 15 mg 15 mg, IntraVENous, EVERY 6 HOURS, 8 doses, First dose on Wed12/21/22 at 1400, Last dose on Wed12/23/22 at 0800, Do not administer for more than 2 days., Post-op 1533 (Given - Provid er: Tonia Skelton RN) metFORMIN (GLUCOPHAGE) tablet 1,000 mg 1,000 mg, Oral, 2 TIMES DAILY WITH MEALS, First dose on Wed12/21/22 at 1700, Until Discontinued 1700 (Due) olmesartan (BENICAR) tablet 20 mg 20 mg, Oral, DAILY, First dose on Wed12/21/22 at 1200, Until Discontinued 1214 (Not Given - Pr ovider: Tonia Skelton RN - Reason: Patient/family refused - Comment: BP low) pantoprazole (PROTONIX) tablet 40 mg 40 mg, Oral, DAILY BEFORE BREAKFAST, First dose on Wed12/21/22 at 1200, Until Discontinued, Do not crush or break. 1056 (Not Given - Pr ovider: Tonia Skelton RN - Reason: Patient/family refused) tranexamic acid (CYKLOKAPRON) 2,000 mg in sodium chloride 0.9 % 100 mL IVPB (COMPLETED) 2,000 mg, IntraVENous, at 400 mL/hr, Administer over 15 Minutes, FREQUENCY CHECKER TO O.R., On Wed12/21/22 at 0630, For 1 dose, One time dose for unilateral Total Hip or Knee Arthroplasty. To be administered by anesthesia staff after induction of anesthesia following antibiotic but prior to incision, Pre-op (day of surgery) 0733 (New Bag - Prov ider: MARIANA Astudillo - Comment: Infused over 10 minutes)1646 (Stopped - Provider: Tonia Skelton, SUZANNE) Continuous Medication Order 12/19/2022 12/20/2022 12/21/2022 lactated ringers IV soln infusion (CANCELED) IntraVENous, at 50 mL/hr, CONTINUOUS, Starting on Wed12/21/22 at 0630, Preoperative use ONLY for NON-DIALYSIS patients, Pre-op (day of surgery), Routine 0658 (New Bag - Prov ider: Rocío Garza RN)0927 (JUL Hold - Provider: Olivia Autohold - Reason: Patient not available)0927 (JUL Unhold - Provider: Automatic Transfer Provider)1058 (Stopped - Provider: Tonia Skelton, SUZANNE) lactated ringers IV soln infusion IntraVENous, at 100 mL/hr, CONTINUOUS, Starting on Wed12/21/22 at 1015, Convert to hep-lock(saline lock) when taking PO fluids, BP stable and urine output greater than or equal to 30 ml/hr, Post-op 1213 (New Bag - Prov ider: Tonia Skelton, SUZANNE)1645 (Stopped - Provider: Tonia Skelton, SUZANNE) ropivacaine 0.2% (NAROPIN) elastomeric infusion SOLN 500 mL 500 mL, Infiltration, at 6 mL/hr, CONTINUOUS, Starting on Wed12/21/22 at 0800, For 4 days, Do not remove catheter dressing without notifying anesthesiologist Assess pain q4hrs May increase/decrease 2 ml/hr [id number] for adequate pain control pain up to max of 14 ml/hr Decrease infusion rate to 4 ml/hr [id number] prior to physical therapy or ambulation for lower extremity nerve catheters. 0845 (New Bag - Prov ider: Julieth Kline RN)0927 (MAR Hold - Provider: Olivia Autohold - Reason: Patient not available)0942 (MAR Unhold - Provider: Olivia Autohold)1645 (Stopped - Provider: Tonia Skelton RN) PRN Medication Order 12/19/2022 12/20/2022 12/21/2022 aluminum & magnesium hydroxide-simethicone (MAALOX) 200-200-20 MG/5ML suspension 30 mL 30 mL, Oral, EVERY 6 HOURS PRN, Starting on Wed12/21/22 at 0945, Until Wed12/21/22 at 2118, Indigestion, Post-op bisacodyl (DULCOLAX) suppository 10 mg 10 mg, Rectal, DAILY PRN, Starting on Wed12/21/22 at 0945, Until Wed12/21/22 at 2118, Constipation, Use oral route first. Use before Milk of Magnesia, Post-op diphenhydrAMINE (BENADRYL) capsule 25 mg(Linked Group 1) 25 mg, Oral, ONCE PRN, 1 dose, Starting on Wed12/21/22 at 0945, Until Wed12/21/22 at 2118, Itching, Post-op diphenhydrAMINE (BENADRYL) injection 25 mg(Linked Group 1) 25 mg, IntraVENous, ONCE PRN, 1 dose, Starting on Wed12/21/22 at 0945, Until Wed12/21/22 at 2118, Itching, Administer if oral route cannot be used., Post-op HYDROmorphone (DILAUDID) injection 0.5 mg 0.5 mg, IntraVENous, EVERY 4 HOURS PRN, Starting on Wed12/21/22 at 0945, Until Wed12/21/22 at 2118, Pain Severe (7-10), if pain is unrelieved with PO medications, If oral and IV narcotics ordered, use oral first and only use IV if oral is ineffective or cannot take oral. Do Not give oral and IV within 1 hour of each other unless specifically ordered., Post-op ondansetron (ZOFRAN) injection 4 mg(Linked Group 2) 4 mg, IntraVENous, EVERY 6 HOURS PRN, Starting on Wed12/21/22 at 0945, Until Wed12/21/22 at 2118, Nausea, Vomiting, Administer if oral route cannot be used., Post-op ondansetron (ZOFRAN-ODT) disintegrating tablet 4 mg(Linked Group 2) 4 mg, Oral, EVERY 6 HOURS PRN, Starting on Wed12/21/22 at 0945, Until Wed12/21/22 at 2118, Nausea, Vomiting, Use Zofran(ondansetron) before promethazine., Post-op oxyCODONE (ROXICODONE) immediate release tablet 10 mg(Linked Group 3) 10 mg, Oral, EVERY 4 HOURS PRN, Starting on Wed12/21/22 at 0945, Until Wed12/21/22 at 2118, Pain Severe (7-10), Post-op oxyCODONE (ROXICODONE) immediate release tablet 5 mg(Linked Group 3) 5 mg, Oral, EVERY 4 HOURS PRN, Starting on Wed12/21/22 at 0945, Until Wed12/21/22 at 2118, Pain Moderate (4-6), Post-op sod chloride IRR soln 0.9 % 34.25 mL with EPINEPHrine 0.25 mL, ketamine (KETALAR) 30 mg, ketorolac (TORADOL) 30 MG/ML 15 mg, ropivacaine (NAROPIN) 15 mL (CANCELED) PRN, Starting on Wed12/21/22 at 0800, Intra-op 0800 (Given - Provid er: Maurice Panchal MD) Linked Groups Order Group 1: diphenhydrAMINE (BENADRYL) capsule 25 mgJump to med 25 mg, Oral, ONCE PRN, 1 dose, Starting on Wed12/21/22 at 0945, Until Wed12/21/22 at 2118, Itching, Post-op Or diphenhydrAMINE (BENADRYL) injection 25 mgJump to med 25 mg, IntraVENous, ONCE PRN, 1 dose, Starting on Wed12/21/22 at 0945, Until Wed12/21/22 at 2118, Itching, Administer if oral route cannot be used., Post-op Group 2: ondansetron (ZOFRAN-ODT) disintegrating tablet 4 mgJump to med 4 mg, Oral, EVERY 6 HOURS PRN, Starting on Wed12/21/22 at 0945, Until Wed12/21/22 at 2118, Nausea, Vomiting, Use Zofran(ondansetron) before promethazine., Post-op Or ondansetron (ZOFRAN) injection 4 mgJump to med 4 mg, IntraVENous, EVERY 6 HOURS PRN, Starting on Wed12/21/22 at 0945, Until Wed12/21/22 at 2118, Nausea, Vomiting, Administer if oral route cannot be used., Post-op Group 3: oxyCODONE (ROXICODONE) immediate release tablet 5 mgJump to med 5 mg, Oral, EVERY 4 HOURS PRN, Starting on Wed12/21/22 at 0945, Until Wed12/21/22 at 2118, Pain Moderate (4-6), Post-op Or oxyCODONE (ROXICODONE) immediate release tablet 10 mgJump to med 10 mg, Oral, EVERY 4 HOURS PRN, Starting on Wed12/21/22 at 0945, Until Wed12/21/22 at 2118, Pain Severe (7-10), Post-op documented in this encounter Care Teams Bag Loader Relationship Specialty Start Date End Date Felicitas Monaco MD PCP - General Family Medicine 06/18/22 07/05/23 documented as of this encounter
--- OUTSIDE RECORDS SUMMARY | 2024-01-11 22:15 | XMS_ITS | Encounter Summary ---
Author Organization [facility] Address [address] [place] [address] Care Team Providers Care Shoe Maker Name Role Phone Cheo Santoyo Primary Care Provider Encounter Details Date Type Department Care Team (Late st Contact Info) Description 03/26/2023 Home Visit [facility] [place] Maurice Panchal MD [address] [phone] Social History Tobacco Use Types Packs/Day Years [...] Neurology - [facility] [address] [facility] [address] [place] [phone] Martell Calderon MD [address] [facility] [address] [place] [address] TREMORS/ MEDICARE, FOR LIFE 03/28/2024 8:30 AM EDT Office Visit Primary Care - [address] [phone] [address] [phone] AWV 04/06/2024 9:45 AM EST Lab [facility] - [facility] [address] [facility] [address] [place] [address] CBCMP,CEA,FEST 04/06/2024 10:15 AM EST Office Visit [facility] - [facility] [address] [facility] [address] [place] [address] Georgi Butterfield MD [address] [facility] [address] [place] [address] 6 MTH FU W/LABS, REV SCAN 04/13/2024 9:30 AM EST Office Visit Surgical Oncology - [facility] [address] [facility] [address] [place] [address] Delvis Cheek MD 125 [facility] [address] [place] [phone] 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 documented as of this encounter Visit Diagnoses Not on filedocumented in this encounter Additional Health Concerns Assessment Noted Time A fall risk assessment has been complete d for the patient 02/26/2023 9:45 AM EDT documented as of this encounter Care Teams Shoe Maker Relationship Specialty Start Date End Date Cheo Santoyo DO [address] [place] [phone] PCP - General Family Medicine 07/06/23 documented as of this encounter
--- OUTSIDE RECORDS SUMMARY | 2024-01-11 22:15 | XMS_ITS | Encounter Summary ---
Author Organization [facility] Address [address] [place] [address] Care Team Providers Care Medical Dir Name Role Phone Cheo Santoyo Primary Care Provider [phone] Encounter Details Date Type Department Care Team (Late st Contact Info) Description 12/27/2022 Home Visit [facility] Maurice Panchal MD [address] [place] [address] Social History Tobacco Use Types Packs/Day Years [...] [address] [place] [address] Martell Calderon MD [address] [facility] [address] [place] [address] TREMORS/ MEDICARE, FOR LIFE 03/28/2024 8:30 AM EDT Office Visit Primary Care - [address] [phone] [place] [address] [place] [phone] AWV 04/06/2024 9:45 AM EST Lab [facility] - [facility] [address] [facility] [address] [place] [phone] CBCMP,CEA,FEST 04/06/2024 10:15 AM EST Office Visit [facility] - [facility] [address] [facility] [address] [place] [phone] Georgi Butterfield MD [address] [place], [place] [phone] 6 MTH FU W/LABS, REV SCAN 04/13/2024 9:30 AM EST Office Visit Surgical Oncology - [facility] [address] [facility] [address] [place] [address] Delvis Cheek MD 125 [facility] [address] [place] [address] 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 documented as of this encounter Visit Diagnoses Not on filedocumented in this encounter Care Teams Medical Dir Relationship Specialty Start Date End Date Cheo Santoyo DO [address] [place] [phone] PCP - General Family Medicine 07/06/23 documented as of this encounter
--- OUTSIDE RECORDS SUMMARY | 2024-01-11 22:15 | XMS_ITS | Encounter Summary ---
Author Organization [facility] Address [address] [place] [address] Care Team Providers Care Consulting Psychiatrist Name Role Phone Felicitas Monaco MD Primary Care Provider [phone] Reason for Visit * Auth/Cert (Routine) Specialty Diagnoses / Procedures Referred By Rachid jimenez Referred To Contact Diagnoses Primary osteoarthritis of right knee Primary osteoarthritis of right knee [M17.11] Procedures DC ARTHRP KNE CONDYLE&PLATU MEDIAL&LAT COMPARTMENTS RIGHT TOTAL KNEE ARTHROPLASTY, ROBOTIC Maurice Panchal MD [address] [address] Referral ID Status Reason Start Date Expiration Date Visits Re quested Visits Authorized [id number] 1 1 Encounter Details Date Type Department Care Team (Late st Contact Info) Description 03/17/2023 9:30 AM EDT - 03/17/2023 10:30 AM EDT Surgery [facility] SURGERY [address] [place] [id number] Maurice Panchal MD [address] [id number] RIGHT TOTAL KNEE ARTHROPLASTY, ROBOTIC Surgery Details Date/Time Status Location OR Service Patient Class Case Cl ass Case Type Trauma Case? 03/17/2023 9:30 AM Posted RMP MAIN OR RMP OR 04 Orthopedics Outpatient Surgery Elective No Panel 1 Procedure LRB Anes Op Region Wound Class Comments RIGHT TOTAL KNEE ARTHROPLASTY, ROBOTIC Right Regional Knee Class I Clean On Q Pump/Adductor Canal Block to be done in Pre Op Surgeon Surgeon Role Service Panel Maurice Panchal MD Primary Orthopedics 1 Special Needs Daxa Aircraft Servicer/mg mcarthur documented in this encounter Social History Tobacco [...] Sign Reading Time Taken Comments Blood Pressure 123/85 03/17/2023 7:57 AM EDT Pulse 82 03/17/2023 7:57 AM EDT Temperature 36.6 ??C (97.9 ??F) 03/17/2023 7:57 AM ED T Respiratory Rate 17 03/17/2023 7:57 AM EDT Oxygen Saturation 97% 03/17/2023 7:57 AM EDT Inhaled Oxygen Concentration - - Weight 96.1 kg (211 lb 13.8 oz) 03/17/2023 7:57 AM EDT Height 175.3 cm (5' 9) 03/11/2023 10:3 0 AM EDT Body Mass Index 31.27 03/17/2023 1:45 PM [...] 7-10 days after day of surgery 3. Bruce are removed 10-14 days after surgery Then [...] - please call Dr. Panchal's office at [phone] AQUACEL DRESSING Aquacel?? Ag dressing is a [...] dressing No dressing required FOR TOTAL KNEES: Bruce will be removed by home health 10-14 [...] EMPTY when it is flat with an apple core center remaining inside. To remove catheter: [...] NUMBERS - 24 HOUR patient nursing hotline: [phone] Call your doctor if you have: A [...] 10 to 30 times each hour. ?? 4813-4091 [employer]. All rights reserved. This information is not [...] when you can stop using them. ?? 7656-8765 [employer]. All rights reserved. This information is not [...] have about your recovery or activities. ?? [phone] [employer]. All rights reserved. This information is not [...] your leg to the starting point. ?? 1131-5148 [employer]. All rights reserved. This information is not [...] your leg to the starting point. ?? [phone] [employer]. All rights reserved. This information is not intended as a substitute for professional medical care. Always follow your healthcare professional's instructions. * Attachments The following attachments cannot be sent through Care Everywhere. * acetaminophen (oral) (Angolan) * aspirin (oral) (Angolan) * celecoxib (Angolan) * docusate (oral/rectal) (Angolan) * Constipation (Angolan) * DVT (Deep Vein Thrombosis) (Angolan) * Pulmonary Embolism (Angolan) documented in this encounter Medications at Time [...] this encounter Progress Notes * Chrissy Mcdonnell, DRYWALL INSTALLER - 03/18/2023 1:26 PM EDT Images from the original note were not included. Acute Care Physical Therapy Treatment Note Observation (DRYWALL INSTALLER/PT Visit Days : 2) Time In: 911 [...] Within Normal Limits Orientation Level: Oriented X4 [facility]?6 Clicks?? Basic Mobility Inpatient Short Form How [...] 3-5 steps with a railing?: A Little [facility] Inpatient Mobility Raw Score : 22 [facility] Inpatient T-Scale Score : 53.28 Mobility Inpatient CMS 0-100% Score: 20.91 Mobility Inpatient CMS G-Code Modifier : TREATMENT Bed Mobility Transfer Training Sit to Stand: Contact guard assistance Stand to Sit: Contact guard assistance Ambulation Surface: Level tile Device: Rolling Walker Assistance: Contact guard assistance;Stand by assistance Quality of Gait: RECIPROCAL PATTERN, NO LOB Gait Deviations: Decreased step length Distance: 200 FT Therapeutic Exercise (CPT 85629) (8 minutes) Exercise Treatment: PERFORMED HEELSLIDES FOR ROM X 5 REPS; REVIEWED ANKLE PUMPS, QUAD SETS AND GLUTEAL SETS To Improve:activity tolerance, AROM, strength, and mobility Gait Training (20 Minutes) CPT 33666: Gait training for 200 feet utilizing Gait [...] UNDERSTANDING OF STG 3 Short Term Goals Grinding Machine Tender Goals Time Frame for Short Term Goals: 3 visits Short Term Goal 1: Pt will transfer STS c RW c CGA- goal met Short Term Goal 2: Pt will amb 200 ft c RW c CGA Short Term Goal 3: Pt will navigate curb c RW c CGA Therapist Signature: Chrissy Mcdonnell PTA Date: 03/18/2023 * Sindy Cornejo OT - 03/18/2023 1:26 PM EDT Images [...] Homemaking Assistance: Independent Homemaking Responsibilities: Yes Active District Loss Prevention Manager: Yes 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 Safety: Type of Devices: All fall risk precautions in place;Gait belt;Call light within reach;Left in chair;Nurse notified Education: Education Given To: Patient Education Provided: Role of Therapy;ADL Adaptive Strategies;Energy Conservation;Fall Prevention Strategies;Transfer Training Education Method: Demonstration;Verbal Education Outcome: Verbalized understanding;Demonstrated understanding [facility] AM-PAC?6 Clicks?? Basic ADL Inpatient Short Form ASSESSMENT [...] 12:23 PM EDT Orthopedic Progress Note Date:03/18/2023 Room:[address] [place] [address] Patient Name:Martínez Toribio Date of :1955 Age:68 [...] only take pain medication as needed * JenniferatteBrenden - 03/17/2023 7:19 PM EDT Images from the original note were not included. Acute Care Physical Therapy Evaluation Observation (DRYWALL INSTALLER/PT Visit Days : 1) Time In: 1733 [...] light headed or dizzy throughout. Pt reported 12/07 during amb. Additional Pertinent History: WBAT s/p [...] Positioning, Therapeutic activities Goals Short Term Goals Fpc Goals Time Frame for Short Term Goals: [...] EDT Pre Procedure Patient Instructions Procedure Location hospital:[facility] [address], [facility]- If your arrival is scheduled between 6:30a-4:30p: Enter building at Outpatient Services, turn right and follow hallway to [facility], then take stairs or elevator to 2nd [...] wear artificial nails and only clear nail occitan on natural nails. Nails must be trimmed [...] Living Will and/or Medical Durable Power of Application Support Engineer if you have one Bring a list [...] you have any additional questions please contact [phone] To pre-register for your procedure please call [phone] Option 1 For financial questions regarding your procedure at a [facility] facility, please contact [phone] For financial questions regarding anesthesia at a [facility] facility, please contact [phone] For [facility] white Patient Portal help please call [phone] documented in this encounter Plan of Treatment Upcoming Encounters Date Type Department Care Team (Late st Contact Info) Description 03/24/2024 9:00 AM EDT Office Visit Neurology - [facility] [address] [facility] [address] [place] [address] Martell Calderon MD [address] [facility] [address] [place] [address] TREMORS/ MEDICARE, FOR LIFE 03/28/2024 8:30 AM EDT Office Visit Primary Care - [address] [address] Cheo Santoyo DO [address] [place] [address] AWV 04/06/2024 9:45 AM EST [facility] [address] [facility] [address] [place] [address] CBCMP,CEA,FEST 04/06/2024 10:15 AM EST Office Visit [facility] - [facility] [address] [facility] [address] [place] [address] Georgi Butterfield MD [address] [place] [address] 6 MTH FU W/LABS, REV SCAN 04/13/2024 9:30 AM EST Office Visit Surgical Oncology - [facility] [address] 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 06/19/2024 10:30 AM EST Office Visit Orthopaedics- Les Valencia [address] [facility] [address] [place] [address] Karly Bautista PA [address] [place] [address] annual visit from date of [...] METABOLIC PANEL Routine 03/18/2023 5:08 AM EDT DC ARTHRP KNE CONDYLE&PLATU MEDIAL&LAT COMPARTMENTS 03/17/2023 9:16 AM EDT Primary osteoarthritis of right knee Special Needs Daxa Summers/mg mcarthur POCT GLUCOSE Routine 03/17/2023 8:11 AM EDT documented in this encounter Results * Hemoglobin and Hematocrit (03/18/2023 5:08 AM EDT) Hemoglobin 13.9 13.0 - 17.3 g/dL [facility] Hematocrit 42.4 38.0 - 52.0 % [facility] Blood BLOOD SPECIMEN / Unknown 03/18/2023 5:08 AM EDT 03/18/2023 5:12 AM EDT Karly Bautista PA HEMATOLOGY ORDERABLE S [facility] [address] [place] [address] * (ABNORMAL) Basic Metabolic Panel (03/18/2023 5:08 [...] 5:11 AM EDT Karly DALLAS CHEMISTRY ORDERABLES [facility] [address] [facility] [address] [place] [address] * POCT Glucose (03/17/2023 8:11 AM EDT) POC Glucose 108.0 65.0 - 110.0 mg/dL [facility] Comment:MP - AMB PACU Blood 03/17/2023 8:11 AM EDT 03/17/2023 8:11 AM EDT Maurice Panchal MD POINT OF CARE TEST O RDERABLES [facility] [address] [place] [address] documented in this encounter Visit Diagnoses Diagnosis DJD (degenerative joint disease)- Primary Osteoarthrosis, unspecified whether generalized or localized, unspecified site S/P total knee arthroplasty, right Primary osteoarthritis of right knee Primary localized osteoarthrosis, lower leg Primary osteoarthritis of right knee Primary localized [...] on Domenica 03/18/23 at 0900, Until Discontinued Given 03/18/2023 9:01 [...] Assess pain q4hrs May increase/decrease 2 ml/hr [id number] for adequate pain control pain up to max of 14 ml/hr Decrease infusion rate to 4 ml/hr [id number] prior to physical therapy or ambulation for lower extremity nerve catheters. Rate/Dose Change 03/17/2023 11:15 AM EDT 8 mL/hr New Bag 03/17/2023 10:39 AM EDT 500 mLs 6 mL/hr sod chloride IRR soln 0.9 % 34.25 mL with EPINEPHrine 0.25 mL, ketamine (KETALAR) 30 mg, ketorolac (TORADOL) 30 MG/ML 15 mg, ropivacaine (NAROPIN) 15 mL PRN, Starting on Wed03/17/23 at 0949, Intra-op Given 03/17/2023 9:49 AM EDT 50 mLs Kne e Right documented in this encounter Active and Recently [...] on Wed03/17/23 at 1400, Last dose on 03/20/23 at 0600, Maximum dose of acetaminophen is 4000 mg from all sources in 24 hours., Post-op 1615 (Given - Provider: Ramirez Agosto RN)2137 (Given - Provider: Daryl Morales, RN) 0537 (Given - Provider: Daryl Morales, RN) aspirin EC tablet 81 mg 81 mg, Oral, 2 TIMES DAILY, 60 doses, First dose on Domenica 03/18/23 at 0900, Last dose on Wed04/16/23 at 2100, For DVT Prophylaxis, Post-op 900 (Given - Provid er: Ramirez Agosto RN) atorvastatin (LIPITOR) tablet 40 mg 40 mg, Oral, EVERY MORNING, First dose on Domenica 03/18/23 at 0900, Until Discontinued 900 (Given - Provid er: Ramirez Agosto RN) ceFAZolin (ANCEF) 2,000 mg in sodium chloride 0.9 % 100 mL IVPB (mini-bag) (COMPLETED) 2,000 mg, IntraVENous, LAB TESTER TO O.R., 1 dose, On Wed03/17/23 at [...] RN) 0120 (New Bag - Provider: Daryl Morales, SUZANNE)0150 (Stopped - Provider: Daryl Morales, SUZANNE) celecoxib (CELEBREX) capsule 200 mg 200 mg, Oral, DAILY, 30 doses, First dose on 03/20/23 at 0900, Last dose on Wed04/18/23 at [...] Daryl Morales RN)0901 (Given - Provider: Ramirez Agosto, SUZANNE) metFORMIN (GLUCOPHAGE) tablet 1,000 mg 1,000 mg, Oral, 2 TIMES DAILY WITH MEALS, First dose on Wed03/17/23 at 1700, Until Discontinued 1616 (Given - Provider: Ramirez Agosto RN) 0903 (Given - Provider: Ramirez Agosto, SUZANNE) olmesartan (BENICAR) tablet 10 mg 10 mg, Oral, DAILY, First dose on Wed03/18/23 at 0900, Until Discontinued 1332 (Not Given [...] at 400 mL/hr, Administer over 15 Minutes, LAB TESTER TO O.R., On Wed03/17/23 at 0800, For 1 dose, One time dose for unilateral Total Hip or Knee Arthroplasty. To be administered by anesthesia staff after induction of anesthesia following antibiotic but prior to incision, Pre-op (day of surgery) 09 (New Bag - Provider: MARIANA Chanel) Continuous [...] MARIANA Chanel) 1217 (Stopped - Provider: Ramirez Agosto RN) lactated ringers IV soln infusion IntraVENous, at 100 mL/hr, CONTINUOUS, Starting on Wed03/17/23 at 1215, Convert to hep-lock(saline lock) when taking PO fluids, BP stable and urine output greater than or equal to 30 ml/hr, Post-op 1445 (New Bag - Provider: Ramirez Agosto RN)2138 (Stopped - Provider: Daryl Morales RN) 1217 (Stopped - Provider: Ramirez Agosto RN) lactated ringers IV soln infusion IntraVENous, at 125 mL/hr, CONTINUOUS, Starting on Wed03/17/23 at 1100, PACU only 1248 (Not Given - Provider: Ramirez Agosto RN - Reason: Other - Comment: dc) 1217 (Stopped - Provider: Ramirez Agosto RN) ropivacaine 0.2% (NAROPIN) elastomeric infusion SOLN 500 mL 500 mL, Infiltration, at 6 mL/hr, CONTINUOUS, Starting on Wed03/17/23 at 0900, For 4 days, Do not remove catheter dressing without notifying anesthesiologist Assess pain q4hrs May increase/decrease 2 ml/hr [id number] for adequate pain control pain up to max of 14 ml/hr Decrease infusion rate to 4 ml/hr [id number] prior to physical therapy or ambulation for lower extremity nerve catheters. 1039 (New Bag - Provider: Jennie Verdugo, RN)1115 (Rate/Dose Change - Provider: Jennie Verdugo, RN) 1217 (Stopped - Provider: Ramirez Agosto [...] Nausea, Vomiting 0845 (Given - Provider: Karissa Mendieta, RN) ondansetron (ZOFRAN) injection 4 mg(Linked Group [...] 03/18/23 at 1533, Pain Severe (7-10), Post-op 180 (See Alternative - Provider: Ramirez Agosto RN) 1230 (See Alternative - Provider: Ramirez Agosto RN) oxyCODONE (ROXICODONE) immediate release tablet 5 mg(Linked Group 3) 5 mg, Oral, EVERY 4 HOURS PRN, Starting on Wed03/17/23 at 1151, Until Domenica 03/18/23 at 1533, Pain Moderate (4-6), Post-op 180 (Given - Provider: Ramirez Agosto RN) 1230 (Given - Provider: Ramirez Agosto, SUZANNE) sod chloride IRR soln 0.9 % 34.25 [...] documented as of this encounter Care Teams Consulting Psychiatrist Relationship Specialty Start Date End Date Felicitas Monaco MD PCP - General Family Medicine 06/18/22 2 documented as of this encounter
--- OUTSIDE RECORDS SUMMARY | 2024-01-11 22:16 | XMS_ITS | Encounter Summary ---
Author Organization [facility] Address [address] [place] [address] Care Team Providers Care Tray Casting Machine Operator Name Role Phone Felicitas Monaco MD Primary Care Provider [phone] Encounter Details Date Type Department Care Team (Latest Contact Info) Description 07/29/2022 9:20 AM EST Ancillary Procedure [facility] - [address] [place] [address] Spinal stenosis of lumbar region with neurogenic claudication; Sacroiliitis (HCC) Social History Tobacco Use Types Packs/Day Years Used Date Smoking Tobacco: Former Cigarettes 1 27 0 05/31/1969 - 05/31/1996 Smokeless Tobacco: Never Alcohol Use Standard Drinks/Week Comments Yes 4 (1 standard drink = 0.6 oz pur e alcohol) PHQ-2 Answer Date Recorded PHQ-9 Total Score 0 06/30/2022 Sex and Gender Information Value Date Recorded Sex Assigned at Not on file Gender Identity Not on file Sexual Orientation Not on file COVID-19 Exposure Response Date Recorded In the last 10 days, have yo u been in contact with someone who was confirmed or suspected to have Coronavirus/COVID-19? No / Unsure 06/30/2022 9:35 AM EST documented as of this encounter Plan of Treatment Upcoming Encounters Date Type Department Care Team (Late st Contact Info) Description 03/24/2024 9:00 AM EDT Office Visit Neurology - [address] [place] [address] Martell Calderon MD [address] [facility] [address] [place] [address] TREMORS/ MEDICARE, FOR LIFE 03/28/2024 8:30 AM EDT Office Visit Primary Care - [address] [phone] Cheo Santoyo, DO [address] [place] [phone] AWV 04/06/2024 9:45 AM EST Lab [facility] - [facility] [address] [facility] [address] [place] [address] CBCMP,CEA,FEST 04/06/2024 10:15 AM EST Office Visit [facility] - [facility] [address] [facility] [address] [place] [address] Georgi Butterfield MD [address] [place], [place] [phone] 6 MTH FU W/LABS, REV SCAN 04/13/2024 9:30 AM EST Office Visit Surgical Oncology - [facility] [address] [facility] [address] [place] [address] Delvis Cheek MD [address] [facility] [address] [place] [address] 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 documented as of this encounter Procedures Procedure Name Priority Date/Time Associated Diagnosis Comments XR LUMBAR SPINE (MIN 4 VIEWS) Routine 07/29/2022 9:41 AM EST Spinal stenosis of lumbar region with neurogenic claudication Sacroiliitis (HCC) documented in this encounter Results * XR LUMBAR SPINE (MIN 4 VIEWS) (07/29/2022 9:41 AM EST) Anatomical Region Laterality Modality T-spine, L-spine, Pelvis Compute d Radiography 07/29/2022 4:41 PM EST Impressions 07/29/2022 4:47 PM EST 1. L2/3, prior PLIF, no complicating features identified. 2. L3/L4, grade 1 retrolisthesis, movement between flexion and extension Narrative 07/29/2022 4:47 PM EST Lumbosacral spine 4 views: 07/29/22 COMPARISON: None TECHNICAL: AP, lateral neutral, lateral flexion, and lateral extension views INDICATION: standing x-ray, AP, Lateral, flexion and extension views, FINDINGS: Lumbar vertebral bodies maintain normal height. Grade 1 retrolisthesis L3/L4 with movement between flexion and extension. Prior PLIF at L2/3, no complicating features. Hardware intact, screws appear well seated. Suspect some degree of fusion across the disc space. Degenerative changes at L5/S1 and to a lesser degree L4/5 Procedure Note Maurice Faulkner MD - 07/29/2022 Lumbosacral spine 4 views: 07/29/22 COMPARISON: None TECHNICAL: AP, lateral neutral, lateral flexion, and lateral extensionviews INDICATION: standing x-ray, AP, Lateral, flexion and extension views, FINDINGS: Lumbar vertebral bodies maintain normal height. Grade 1retrolisthesis L3/L4 with movement between flexion and extension. Prior PLIF at L2/3, no complicating features. Hardware intact, screwsappear well seated. Suspect some degree of fusion across the disc space. Degenerative changes at L5/S1 and to a lesser degree L4/5 IMPRESSION: 1. L2/3, prior PLIF, no complicating features identified. 2. L3/L4, grade 1 retrolisthesis, movement between flexion and extension Willa Sandhu [employer] ATTENDANT - EMERGENCY COMMUNICATIONS OFFICER IMG DIAGNOSTI C IMAGING ORDERABLES documented in this encounter Visit Diagnoses Diagnosis Spinal stenosis of lumbar region with neurogenic claudication Spinal stenosis, lumbar region, with neurogenic claudication Sacroiliitis (HCC) Sacroiliitis, not elsewhere classified documented in this encounter Care Teams Tray Casting Machine Operator Relationship Specialty Start Date End Date Felicitas Monaco MD PCP - General Family Medicine 06/18/22 07/05/23 documented as of this encounter
--- OUTSIDE RECORDS SUMMARY | 2024-01-11 22:16 | XMS_ITS | Encounter Summary ---
Author Organization [facility] Address [address] [place] [address] Care Team Providers Care Rn Allergy Name Role Phone Felicitas Monaco MD Primary Care Provider [phone] Reason for Visit * Reason Onset Date Comments Medication Refill 08/13/2022 Encounter Details Date Type Department Care Team (Late Contact Info) Description 08/13/2022 Refill Primary Care - [address] [place] [address] Felicitas Monaco MD [address] [place] [address] Medication Refill Social History Tobacco Use [...] Encounters Date Type Department Care Team (Late Contact Info) Description 03/24/2024 9:00 AM EDT Office Visit Neurology - [address] [place] [address] Martell Calderon MD [address] [facility] [address] [place] [address] TREMORS/ MEDICARE, FOR LIFE 03/28/2024 8:30 AM EDT Office Visit Primary Care - [address] [phone] Cheo Santoyo, DO [address] [place] [phone] AWV 04/06/2024 9:45 AM EST Lab [facility] - [facility] [address] [facility] [address] [place] [address] CBCMP,CEA,FEST 04/06/2024 10:15 AM EST Office Visit [facility] - [facility] [address] [facility] [address] [place] [address] Georgi Butterfield MD [address] [place], [place] [phone] 6 MTH FU W/LABS, REV SCAN 04/13/2024 9:30 AM EST Office Visit Surgical Oncology - [facility] [address] [facility] [address] [place] [address] Delvis Cheek MD [address] [facility] [address] [place] [phone] 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 documented as of this encounter Visit Diagnoses Not on filedocumented in this encounter Care Teams Rn Allergy Relationship Specialty Start Date End Date Felicitas Monaco MD PCP - General Family Medicine 06/18/22 07/05/23 documented as of this encounter
--- OUTSIDE RECORDS SUMMARY | 2024-01-11 22:16 | XMS_ITS | Encounter Summary ---
Author Organization Jose Alejandro [facility] Address [address] [place] [address] Care Team Providers Care Bottle Washer Name Role Phone Felicitas Monaco MD Primary Care Provider [phone] Reason for Visit * Reason Onset Date Comments Other 09/29/2022 Encounter Details Date Type Department Care Team (Late Contact Info) Description 09/29/2022 Telephone Neurosurgery & Spine - [address] - [address] [place] [address] Sharonda Rodriguez PA 300 [address] [facility] [address] [place] [address] Other Social History Tobacco Use Types Packs/Day [...] Dr. [address] [place] [address] Martell Calderon MD 2145 [facility] [address] [place] [address] TREMORS/ MEDICARE, FOR LIFE 03/28/2024 8:30 AM EDT Office Visit Primary Care - [facility] [address] [place] [phone] Cheo Santoyo, DO [address]12 [place] [address] AWV 04/06/2024 9:45 AM EST Lab [facility] - [facility] 2084 [facility] [address] [place] [address] CBCMP,CEA,FEST 04/06/2024 10:15 AM EST Office Visit [facility] - [facility] 2084 [facility] [place] [address] [place] [address] Georgi Butterfield MD [address] [place], [place] [phone] 6 MTH FU W/LABS, REV SCAN 04/13/2024 9:30 AM EST Office Visit Surgical Oncology - 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 documented as of this encounter Visit Diagnoses Not on filedocumented in this encounter Care Teams Bottle Washer Relationship Specialty Start Date End Date Felicitas Monaco MD PCP - General Family Medicine 06/18/22 07/05/23 documented as of this encounter
--- OUTSIDE RECORDS SUMMARY | 2024-01-11 22:16 | XMS_ITS | Encounter Summary ---
Author Organization [facility] Kit [facility] Address [address] [place] [address] Care Team Providers Care Corporate Counsel Name Role Phone Felicitas Monaco MD Primary Care Provider [phone] Encounter Details Date Type Department Care Team (Late st Contact Info) Description 09/01/2022 Abstract [place] [facility] - [facility]. [address] [facility] [place] [address] [place] [phone] Georgi Butterfield MD [address] [place] [address] Social History Tobacco Use Types Packs/Day Years [...] AM EDT Office Visit Neurology - [address] [place] [phone] Martell Calderon MD 2144 [address] [facility] [address] [place], [place] [phone] TREMORS/ MEDICARE, FOR LIFE 03/28/2024 8:30 AM EDT Office Visit Primary Care - [address] [phone] Cheo Santoyo DO 1112 [place] [address] AWV 04/06/2024 9:45 AM EST Lab [place] [facility] - [facility] 2084 [facility] [address] [place] [address] CBCMP,CEA,FEST 04/06/2024 10:15 AM EST Office Visit [place] [facility] - [facility] 2084 [facility] [address] [place] [address] Georgi Butterfield MD 3510 [facility] [address] [place], [place] [phone] 6 MTH FU W/LABS, REV SCAN 04/13/2024 9:30 AM EST Office Visit Surgical Oncology - [facility] 2084 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 documented as of this encounter Visit Diagnoses Not on filedocumented in this encounter Care Teams Corporate Counsel Relationship Specialty Start Date End Date Felicitas Monaco MD PCP - General Family Medicine 06/18/22 07/05/23 documented as of this encounter
--- OUTSIDE RECORDS SUMMARY | 2024-01-11 22:16 | XMS_ITS | Encounter Summary ---
Author Organization Jose Alejandro [facility] Address [address] [place] [address] Care Team Providers Care Dust Mill Operator Name Role Phone Felicitas Monaco MD Primary Care Provider [phone] Reason for Visit * Auth/Cert (Routine) Specialty Diagnoses / Procedures Referred By Rachid jimenez Referred To Contact Diagnoses Primary osteoarthritis of left knee Primary osteoarthritis of left knee [M17.12] Procedures DE ARTHRP KNE CONDYLE&PLATU MEDIAL&LAT COMPARTMENTS LEFT TOTAL KNEE ARTHROPLASTY, ROBOTIC Maurice Panchal MD [facility] [address] [address] Referral ID Status Reason Start Date Expiration Date Visits Re quested Visits Authorized [id number] 1 1 Encounter Details Date Type Department Care Team (Late st Contact Info) Description 12/21/2022 7:25 AM EDT Anesthesia Event RMP SURGERY 3500 [facility] 17 [place] [address] Eren Carlos MD [address] [address] Ritchie Hess MD [address] [id number] Anesthesia Record Procedure Summary Procedure Name Responsible Anesthesiologist Anesthesia Start Time Anesthesia Stop Time LEFT TOTAL KNEE ARTHROPLASTY, ROBOTIC (Left: Knee) Eren Carlos MD 12/21/22 0725 12/21/22 0846 Events Date Time Event Comment 12/21/2022 0715 0725 An Start Location: {AN S tart Location:[id number]} 0725 An Start Data 0730 Block Placed 0730 Anesthesia Ready 0838 an stop data 0846 Handoff to RN Vital signs ar e within acceptable limits and stable, SBAR handoff/transfer of care to RN. Patient Handoff Status: Level of Response: Arousable Oxygen device: Nasal cannula Airway Status: Patent BP: 111/66 Pulse: 82 SpO2: 93 % Respirations: 16 Temp: 97.5 ??F (36.4 ??C) Temp Source: -- Disposition: PACU PACU Checklist: Identification of patient;Identification of responsible practitioner (PACU Nurse or advanced practitioner);Discussion of the surgical/procedure course (procedure, reason for surgery, procedure performed);Discussion of pertinent medical history;Intraoperative anesthetic management and issues/concerns;Expectations/plans for the early post-procedure period;Opportunity for questions and acknowledgement of understanding of report from the receiving PACU team 0846 An Stop Meds Name Total tranexamic acid (CYKLOKAPRON) 2,000 mg i n sodium chloride 0.9 % 100 mL IVPB 2,000 mg ceFAZolin (ANCEF) 2,000 mg in sodium chl oride 0.9 % 100 mL IVPB (mini-bag) 2,000 mg lidocaine 2 % 40 mg propofol 200 MG/20ML 478 mg midazolam (VERSED) injection 2 mg/2mL 2 mg fentaNYL (SUBLIMAZE) injection 0.05 mg/m L 100 mcg dexamethasone 4 MG/ML 4 mg ondansetron 4 MG/2ML 4 mg bupivacaine (MARCAINE) PF injection 0.5% 8 mg ropivacaine (NAROPIN) injection 0.2% 20 mL phenylephrine 1 MG/10ML 400 mcg lactated ringers infusion 400 mL * Agents Name O2 N2O Air Inspired N2O N2O * Blood No blood administrations on file. Lines, Drains, and Airways Type Details Placement Removal Peripheral IV Placement date 12/21; Placement time 0639; Orientation Posterior, Right; Location Hand; Removal date 12/23/22; Removal time 0712/21/22 0639 by Rocío Garza RN 12/23/22 0720 by Discharge Provider, Automatic Pain Ball 12/21/22; 0849; Yes; Anterior, Left; Femoral; 12/21/22; 1706; Patient discharged (Patient going home with pain pump. Home health will remove); No complications 12/21/22 0849 by Julieth Kline RN 12/21/22 1706 by Tonia Skelton RN documented in this encounter Social History [...] AM EDT Office Visit Neurology - [facility] 214 [facility] [address] [place] [phone] Martell Calderon MD 2145 [facility] [address] [place] [address] TREMORS/ MEDICARE, FOR LIFE 03/28/2024 8:30 AM EDT Office Visit Primary Care - [address] [address] Cheo Santoyo DO [address] [place] [phone] AWV 04/06/2024 9:45 AM EST Lab [place] [facility] - [facility] 2084 [facility] [address] [place] [phone] CBCMP,CEA,FEST 04/06/2024 10:15 AM EST Office Visit [place] [facility] - [facility] 2084 [facility] [address] [place] [phone] Georgi Butterfield MD [address] [place], [place] [phone] 6 MTH FU W/LABS, REV SCAN 04/13/2024 9:30 AM EST Office Visit Surgical Oncology - [facility] 2084 [facility] [address] [place] [phone] Delvis Cheek MD 125 [facility] [address] [place] [address] 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 documented as of this encounter Procedures Procedure Name Priority Date/Time Associated Diagnosis Comments ANESTHESIA SPINAL BLOCK Routine 12/21/2022 7:25 AM EDT HC PERIPHERAL BLOCK - FEMORAL CONTINUOUS W/IMG GDN Routine 12/21/2022 7:06 AM EDT documented in this encounter Results * Spinal Block (12/21/2022 7:25 AM EDT) Narrative Eren Carlos MD - 12/21/2022 7:25 AM EDT Eren Carlos MD ? 12/21/2022 ??7:39 AM Spinal Block Patient location during procedure: OR End time: 12/21/2022 7:30 AM Reason for block: primary anesthetic Staffing Performed: anesthesiologist Anesthesiologist: Eren Carlos MD Spinal Block Patient position: sitting Prep: ChloraPrep Patient monitoring: continuous pulse ox, oxygen and frequent blood pressure checks Approach: midline Location: L3/L4 Provider prep: mask and sterile gloves Local infiltration: lidocaine Needle Needle type: Pencan Needle gauge: 24 G Needle length: 4 in Assessment Sensory level: T10 Swirl obtained: Yes CSF: clear Attempts: 1 Hemodynamics: stable Additional Notes Patient sitting for spinal. Sterile lumbar prep, drape, and glove maintained. 1% lidocaine local anesthesia infiltration. Spinal as above. CSF obtained. No heme appreciated. Intrathecal injection without parasthesia or resistance. Spinal needle removed without issue. Patient repositioned supine, arms < 90 degrees, head and neck supported and all pressure points padded. Risks and benefits of Subarachnoid Block discussed with patient, including, but not limited to: Post dural-puncture headache, infection, hematoma, pain and failed block. Preanesthetic Checklist Completed: patient identified, IV checked, site marked, risks and benefits discussed, surgical/procedural consents, equipment checked, pre-op evaluation, timeout performed, anesthesia consent given, oxygen available and monitors applied/VS acknowledged Eren Carlos MD ANESTHESIA ORDERA BLES * HC PERIPHERAL BLOCK - FEMORAL CONTINUOUS W/IMG GDN (12/21/2022 7:06 AM EDT) Narrative Eren Carlos MD - 12/21/2022 7:06 AM EDT Eren Carlos MD ? 12/21/2022 ??7:40 AM Peripheral Block Patient location during procedure: pre-op Reason for block: procedure for pain, post-op pain management and at surgeon's request Start time: 12/21/2022 7:06 AM End time: 12/21/2022 7:13 AM Staffing Performed: anesthesiologist Anesthesiologist: Eren Carlos MD Preanesthetic Checklist Completed: patient identified, IV checked, site marked, risks and benefits discussed, surgical/procedural consents, equipment checked, pre-op evaluation, timeout performed, anesthesia consent given, oxygen available and monitors applied/VS acknowledged Peripheral Block Patient position: supine Prep: ChloraPrep Provider prep: mask and sterile gloves Patient monitoring: continuous pulse ox, IV access, oxygen and responsive to questions Block type: Femoral Adductor canal Laterality: left Injection technique: catheter and single-shot Guidance: ultrasound [...] SINGLE-SHOT FEMORAL/ADDUCTOR CANAL NERVE BLOCK Medications Administered ropivacaine (NAROPIN) injection 0.2% - Perineural 20 mL - 12/21/2022 7:09:00 AM Eren Carlos MD ANESTHESIA ORDERA BLES documented in this encounter Visit Diagnoses Not on filedocumented in this encounter Administered Medications Inactive Administered Medications - up to 3 most recent administrations Medication Order MAR Action Action Date Dose Rate Site bupivacaine (PF) (MARCAINE) 0.5 % injection Intrathecal, Starting on Wed12/21/22 at 0730, Until Wed12/21/22 at 0730, Intra-op Given 12/21/2022 7:30 AM EDT 8 mg ceFAZolin (ANCEF) 2,000 mg in sodium chloride 0.9 % 100 mL IVPB (mini-bag) 2,000 mg, IntraVENous, PROCESS TREATER TO O.R., 1 dose, On Wed12/21/22 at 0630, Antimicrobial Indications: Surgical Prophylaxis, Administer within 1 hour prior to incision. Recommend to repeat in 3-4 hours after initial dose if still intra-op., Pre-op (day of surgery) New Bag 12/21/2022 7:25 AM EDT 2,000 mg dexamethasone (DECADRON) injection IntraVENous, PRN, Starting on Wed12/21/22 at 0733, Until Wed12/21/22 at 0846, Intra-op Given 12/21/2022 7:33 AM EDT 4 mg fentaNYL (SUBLIMAZE) injection IntraVENous, PRN, Starting on Wed12/21/22 at 0706, Until Wed12/21/22 at 0846, Intra-op Given 12/21/2022 7:06 AM EDT 100 mcg lactated ringers IV soln infusion IntraVENous, CONTINUOUS PRN, Starting on Wed12/21/22 at 0725, Intra-op New Bag 12/21/2022 7:25 AM EDT lidocaine 2 % injection IntraVENous, PRN, Starting on Wed12/21/22 at 0733, Until Wed12/21/22 at 0846, Intra-op Given 12/21/2022 7:33 AM EDT 40 mg midazolam (VERSED) injection IntraVENous, PRN, Starting on Wed12/21/22 at 0706, Until Wed12/21/22 at 0846, Intra-op Given 12/21/2022 7:06 AM EDT 2 mg ondansetron (ZOFRAN) injection IntraVENous, PRN, Starting on Wed12/21/22 at 0725, Until Wed12/21/22 at 0846, Intra-op Given 12/21/2022 7:25 AM EDT 4 mg phenylephrine (BRODERICK-SYNEPHRINE) 1 MG/10ML prefilled syringe (Push Dose) IntraVENous, PRN, Starting on Wed12/21/22 at 0817, Until Wed12/21/22 at 0846, Intra-op Given 12/21/2022 8:26 AM EDT 150 mcg Given 12/21/2022 8:17 AM EDT 100 mcg Given 12/21/2022 6:59 AM EDT 150 mcg propofol infusion IntraVENous, CONTINUOUS PRN, Starting on Wed12/21/22 at 0733, Until Wed12/21/22 at 0846, Intra-op Rate/Dose Change 12/21/2022 8:26 AM EDT 60 mcg/kg/min 36 mL/hr New Bag 12/21/2022 7:33 AM EDT 80 mcg/kg/min 48 mL/hr ropivacaine (NAROPIN) 0.2% injection 0.2% Perineural, Starting on Wed12/21/22 at 0709, Until Wed12/21/22 at 0709, Intra-op Given 12/21/2022 7:09 AM EDT 20 mLs tranexamic acid (CYKLOKAPRON) 2,000 mg in sodium chloride 0.9 % 100 mL IVPB 2,000 mg, IntraVENous, at 400 mL/hr, Administer over 15 Minutes, PROCESS TREATER TO O.R., On Wed12/21/22 at 0630, For 1 dose, One time dose for unilateral Total Hip or Knee Arthroplasty. To be administered by anesthesia staff after induction of anesthesia following antibiotic but prior to incision, Pre-op (day of surgery) New Bag 12/21/2022 7:33 AM EDT 2,000 m g documented in this encounter Care Teams Dust Mill Operator Relationship Specialty Start Date End Date Felicitas Monaco MD PCP - General Family Medicine 06/18/22 07/05/23 documented as of this encounter
--- OUTSIDE RECORDS SUMMARY | 2024-01-11 22:16 | XMS_ITS | Encounter Summary ---
Author Organization Jose Alejandro Kit [facility] Address [address] [place] [address] Care Team Providers Care Certified Surgical Technologist Name Role Phone Felicitas Monaco MD Primary Care Provider [phone] Reason for Visit * Reason Onset Date Comments Surgery Scheduling 11/26/2022 Encounter Details Date Type Department Care Team (Late Contact Info) Description 11/26/2022 Telephone Orthopaedics - [address] [place] [phone] Maurice Panchal MD [address] [place] [address] Surgery Scheduling Social History Tobacco Use Types Packs/Day Years [...] Office Visit Neurology - [address] [facility] [address] [place] [address] Martell Calderon MD 2145 [facility] [address] [place] [address] TREMORS/ MEDICARE, FOR LIFE 03/28/2024 8:30 AM EDT Office Visit Primary Care - [facility] [address] [place] [phone] Cheo Santoyo, DO [address]12 [place] [address] AWV 04/06/2024 9:45 AM EST Lab [place] [facility] - [facility] 2084 [facility] [address] [place] [address] CBCMP,CEA,FEST 04/06/2024 10:15 AM EST Office Visit [place] [facility] - [facility] 2084 [facility] [address] [place] [address] Georgi Butterfield MD [address] [place], [place] [phone] 6 MTH FU W/LABS, REV SCAN 04/13/2024 9:30 AM EST Office Visit Surgical Oncology - [facility] 2084 [facility] [address] [place] [address] Delvis Cheek MD 125 [facility] 660 [place] [address] 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 documented as of this encounter Visit Diagnoses Not on filedocumented in this encounter Care Teams Certified Surgical Technologist Relationship Specialty Start Date End Date Felicitas Monaco MD PCP - General Family Medicine 06/18/22 07/05/23 documented as of this encounter
--- OUTSIDE RECORDS SUMMARY | 2024-01-11 22:16 | XMS_ITS | Encounter Summary ---
Author Organization [facility] Address [address] [place] [address] Care Team Providers Care Certified Master Locksmith Name Role Phone Felicitas Monaco MD Primary Care Provider [phone] Encounter Details Date Type Department Care Team (Late st Contact Info) Description 08/19/2022 Telephone Primary Care - [address] [place] [address] Felicitas Monaco MD [address] [place] [address] Social History Tobacco Use Types Packs/Day Years [...] Dr. [address] [place] [address] Martell Calderon MD [address] [facility] [address] [place] [address] TREMORS/ MEDICARE, FOR LIFE 03/28/2024 8:30 AM EDT Office Visit Primary Care - [address] [phone] Cheo Santoyo, DO 1112 [place] [address] AWV 04/06/2024 9:45 AM EST Lab [place] [facility] - [facility] 2084 [facility] [address] [place] [address] CBCMP,CEA,FEST 04/06/2024 10:15 AM EST Office Visit [place] [facility] - [facility] 2084 [facility] [address] [place] [phone] Georgi Butterfield MD 3510 [facility] 17 [address] [place], [place] [address] 6 MTH FU W/LABS, REV SCAN 04/13/2024 9:30 AM EST Office Visit Surgical Oncology - 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 documented as of this encounter Visit Diagnoses Not on filedocumented in this encounter Care Teams Certified Master Locksmith Relationship Specialty Start Date End Date Felicitas Monaco MD PCP - General Family Medicine 06/18/22 07/05/23 documented as of this encounter
--- OUTSIDE RECORDS SUMMARY | 2024-01-11 22:16 | XMS_ITS | Encounter Summary ---
Author Organization [facility] Kit [facility] Address [address] [place] [address] Care Team Providers Care Cold Storage Supervisor Name Role Phone Felicitas Monaco MD Primary Care Provider [phone] Encounter Details Date Type Department Care Team (Late st Contact Info) Description 09/03/2022 Orders Only [place] [facility] - [facility] 8950 [facility] [address] [place] [phone] Georgi Butterfield MD [address] [place] [address] Social History Tobacco Use Types [...] Dr. [address] [place] [phone] Martell Calderon MD [address] Mary[address] [facility] [address] [place], [place] [phone] TREMORS/ MEDICARE, FOR LIFE 03/28/2024 8:30 AM EDT Office Visit Primary Care - [address] [phone] Cheo Santoyo, 1112 [place] [address] AWV 04/06/2024 9:45 AM EST Lab [place] [facility] - [facility] 2084 [facility] [address] [place] [address] CBCMP,CEA,FEST 04/06/2024 10:15 AM EST Office Visit [place] [facility] - [facility] 2084 [facility] [address] [place] [address] Georgi Butterfield MD [address] [place], [place] [phone] 6 MTH FU W/LABS, REV SCAN 04/13/2024 9:30 AM EST Office Visit Surgical Oncology - [facility] 2084 [facility] [address] [place] [address] Delvis Cheek MD 125 [facility] 660 [place] [address] 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 documented as of this encounter Procedures Procedure Name Priority Date/Time Associated Diagnosis Comments SIGNATERA Routine 09/01/2022 documented in this encounter Results * Signatera (09/01/2022) Other (Other) Georgi Butterfield MD LAB MOLECULAR DIAGN OSTICS ORDERABLES - IVÁN documented in this encounter Visit Diagnoses Not on filedocumented in this encounter Care Teams Cold Storage Supervisor Relationship Specialty Start Date End Date Felicitas Monaco MD PCP - General Family Medicine 06/18/22 07/05/23 documented as of this encounter
--- OUTSIDE RECORDS SUMMARY | 2024-01-11 22:16 | XMS_ITS | Encounter Summary ---
Author Organization Jose Alejandro [facility] Address [address] [place] [address] Care Team Providers Care Rawhide Trimmer Name Role Phone Felicitas Monaco MD Primary Care Provider [phone] Encounter Details Date Type Department Care Team (Late Contact Info) Description 08/20/2022 1:10 PM EDT Ancillary Procedure Orthopaedics - [address] [place] [address] Social History Tobacco Use Types [...] Dr. [address] [place] [address] Martell Calderon MD [address] [place] [address] TREMORS/ MEDICARE, FOR LIFE 03/28/2024 8:30 AM EDT Office Visit Primary Care - [address] [address] Cheo Santoyo, [address] [place] [phone] AWV 04/06/2024 9:45 AM EST Lab [facility] - [facility], [place], [facility] [address] [facility] [address] [place] [address] CBCMP,CEA,FEST 04/06/2024 10:15 AM EST Office Visit [facility] - [facility], [place] [address] [facility] [address] [place] [address] Georgi Butterfield MD [address] [place], [place] [phone] 6 MTH FU W/LABS, REV SCAN 04/13/2024 9:30 AM EST Office Visit Surgical Oncology - [facility], [place] [address] [facility] [address] [place] [address] Delvis Cheek MD 125 [facility] [address] [place] [phone] 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 documented as of this encounter Procedures Procedure Name Priority Date/Time Associated Diagnosis Comments XR KNEE LEFT (MIN 4 VIEWS) Routine 08/20/2022 1:18 PM EDT Pain in both knees, unspecified chronicity XR KNEE RIGHT (MIN 4 VIEWS) Routine 08/20/2022 1:18 PM EDT Pain in both knees, unspecified chronicity documented in this encounter Results * XR KNEE LEFT (MIN 4 VIEWS) (CLINIC PERFORMED) (08/20/2022 1:18 PM EDT) Anatomical Region Laterality Modality Thigh, Knee, Leg Computed Radiog sharla Narrative 08/20/2022 1:29 PM EDT X-rays of the left knee were available for review on the PACS system today. ??X-rays show severe osteoarthritis with near sktt-rz-[id number] appearance of the medial compartment with significant narrowing resulting in mild varus malalignment. ??Osteophytes are appreciated on the medial femoral condyle. ??Lateral view does show a loose body in the posterior capsule. Bonny LUNA DIAGNOSTIC IMAGI NG ORDERABLES * XR KNEE RIGHT (MIN 4 VIEWS) (CLINIC PERFORMED) (08/20/2022 1:18 PM EDT) Anatomical Region Laterality Modality Thigh, Knee, Leg Computed Radiog sharla Narrative 08/20/2022 1:28 PM EDT X-rays of the right knee were available for review on the PACS system today. ??X-rays show significant osteoarthritis of the right knee with near mvaa-[id number] appearance in the medial compartment with significant narrowing of the medial joint space resulting in mild varus malalignment. ?? Osteophytes are appreciated on the medial femoral condyle. Bonny RODRIGUEZG DIAGNOSTIC IMAGI NG ORDERABLES documented in this encounter Visit Diagnoses Not on filedocumented in this encounter Care Teams Rawhide Trimmer Relationship Specialty Start Date End Date Felicitas Monaco MD PCP - General Family Medicine 06/18/22 07/05/23 documented as of this encounter
--- OUTSIDE RECORDS SUMMARY | 2024-01-11 22:16 | XMS_ITS | Encounter Summary ---
Author Organization Jose Alejandro [employer] [facility] Address [address] [place] [address] Care Team Providers Care Government Affairs Specialist Name Role Phone Felicitas Monaco MD Primary Care Provider [phone] Reason for Visit * Reason Comments Follow-up Right knee supartz 3 Encounter Details Date Type Department Care Team (Late st Contact Info) Description 10/27/2022 9:00 AM EDT Office Visit Orthopaedics - [address] [place] [phone] Dave Lynne Jr., MD [address] [place] [address] Primary osteoarthritis of right knee (Primary Dx) Social History Tobacco Use Types [...] as of this encounter Progress Notes * Dave Lynne Jr., MD - 10/27/2022 9:00 AM EDT Patient presents for visco supplementation injection CC: Follow-up (Right knee supartz 3) HPI: Patient presents for visco supplementation Injection into the involved knee Physical Examination: There were no vitals taken for this visit. General: Patient is alert and oriented to person, place and time. Well- developed, well-nourished, well groomed, in no acute distress. Normal mood and affect, cooperative, appropriate attitude RIGHT KNEE PHYSICAL EXAMINATION: Observation Inspection: No Erythema/Ecchymosis/Muscle Atrophy/Warmth/No Deformity Effusion: Mildly Positive Palpation: Global Knee Tenderness Negative Medial Joint Line Tenderness Mildly Positive Lateral Joint Line Tenderness Mildly Positive Range of motion Extension 0 Flexion 120 Crepitus negative Strength: Extension 5 / 5 Flexion 5 / 5 Neurovascular exam: 2+ DP and PT Pulses with Brisk capillary refill Sensation intact light touch distally Assessment: NAME@ is a 67 y.o. male with: ICD-10-CM 1. Primary osteoarthritis of right knee M17.11 Treatment Plan: We are going to perform a Visco supplementation injection in the Right knee today Follow-up: Patient to follow up for their additional visco Supplementation Injection. Patient to follow-up sooner with any problems, questions, concerns, or worsening symptoms. Orders: No orders of the defined types were placed in this encounter. Procedure: Patient Martínez Toribio presents today for viscosupplementation injection. Side: Right Injection: Supartz Injection Number: 3rd We first discussed with the patient the risks, benefits and potential complications associated witha Viscosupplemenation injection into the knee and it was determined that the patient wanted to proceed with the injection. We then marked the knee in the location of the injection. We then prepped the injection sight under sterile conditions with Chlorhexidine prep. Ethyl Chloride was sprayed on the injection site to numb the skin. After the injection site was appropriately numb I then injected one ampule of viscosupplementation into the intra-articular space of the involved knee. The injection site was then cleansed and hemostasis was obtained. We then sterily dressed the injection sight. The patient tolerated the procedure well. Post-procedure There were no complications during the procedure. The patient has been instructed inpost-procedure care. Follow up: 6 months and PRN Follow-up: Return for Visco Supplementation injeciton in 6 months PRN. Patient to follow-up sooner with any problems, questions, concerns, or worsening symptoms. documented in this encounter Plan of Treatment Upcoming Encounters Date Type Department Care Team (Late st Contact Info) Description 03/24/2024 9:00 AM EDT Office Visit Neurology - [facility], [place], [facility] [address] [facility] [address] [place] [phone] Martell Calderon MD 214 [facility] [address] [place] [address] TREMORS/ MEDICARE, FOR LIFE 03/28/2024 8:30 AM EDT Office Visit Primary Care - [address] [address] Cheo Santoyo DO [address] [place] [phone] AWV 04/06/2024 9:45 AM EST Lab [facility] - [facility], [place], [facility] [address] [facility] [address] [place] [address] CBCMP,CEA,FEST 04/06/2024 10:15 AM EST Office Visit [facility] - [facility], [place], [facility] [address] [facility] [address] [place] [address] Georgi Butterfield MD [address] [place] [address] 6 MTH FU W/LABS, REV SCAN 04/13/2024 9:30 AM EST Office Visit Surgical Oncology - [facility], [place], [facility] [address] [facility] [address] [place] [address] Delvis Cheek MD 125 [facility] [address] [place] [address] 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 documented as of this encounter Visit Diagnoses Diagnosis Primary osteoarthritis of right knee- Primary Primary localized osteoarthrosis, lower leg documented in this encounter Administered Medications Inactive Administered Medications - up to 3 most recent administrations Medication Order MAR Action Action Date Dose Rate Site sodium hyaluronate (SUPARTZ) injection 25 mg 25 mg, Intra-artICUlar, WEEKLY, First dose on Wed10/13/22 at 0915, Until Discontinued Given 10/27/2022 8:40 AM EDT 25 mg Given 10/20/2022 8:40 AM EDT 25 mg Kn ee Right Given 10/13/2022 8:46 AM EDT 25 mg Kn ee Right documented in this encounter Care Teams Government Affairs Specialist Relationship Specialty Start Date End Date Felicitas Monaco MD PCP - General Family Medicine 06/18/22 07/05/23 documented as of this encounter
--- OUTSIDE RECORDS SUMMARY | 2024-01-11 22:16 | XMS_ITS | Encounter Summary ---
Author Organization Jose Alejandro Ray[facility]olinnea [facility] Address [address] [place] [address] Care Team Providers Care Website/Blog Editor Name Role Phone Felicitas Monaco MD Primary Care Provider [phone] Reason for Visit * Auth/Cert (Routine) Specialty Diagnoses / Procedures Referred By Rachid jimenez Referred To Contact Diagnoses Primary osteoarthritis of left knee Primary osteoarthritis of left knee [M17.12] Procedures OK ARTHRP KNE CONDYLE&PLATU MEDIAL&LAT COMPARTMENTS LEFT TOTAL KNEE ARTHROPLASTY, ROBOTIC Maurice Panchal MD [address] [address] Referral ID Status Reason Start Date Expiration Date Visits Re quested Visits Authorized [id number] 1 1 Encounter Details Date Type Department Care Team (Latest Contact Info) Description 12/21/2022 6:04 AM EDT - 12/21/2022 7:00 PM EDT Hospital Encounter RMP [facility] [address] [place] [id number] Maurice Panchal MD [address] [address] Primary osteoarthritis of left knee (Primary Dx) Discharge Disposition: Home or Self Care Social [...] Sign Reading Time Taken Comments Blood Pressure 102/71 12/21/2022 10:48 AM EDT Pulse 85 12/21/2022 12:00 PM EDT Temperature 36.4 ??C (97.6 ??F) 12/21/2022 1:34 PM ED T Respiratory Rate 18 12/21/2022 12:00 PM EDT Oxygen Saturation 93% 12/21/2022 9:21 AM EDT Inhaled Oxygen Concentration - - [...] your leg to the starting point. ?? [id number] [employer]. All rights reserved. This information is not intended as a substitute for professional medical care. Always follow your healthcare professional's instructions. * Attachments The following attachments cannot be sent through Care Everywhere. * acetaminophen (oral) (Swedish) * aspirin (oral) (Swedish) * celecoxib (Swedish) * Constipation (Swedish) * DVT (Deep Vein Thrombosis) (Swedish) * oxycodone (Swedish) * Pulmonary Embolism (Swedish) documented in this encounter Medications at Time [...] Acute Care Physical Therapy Treatment Note Observation (HEAD OF CONSERVATION/PT Visit Days : 2) Time In: 1449 [...] Vital Signs/Pain Lines/Drains/Precautions Vital Signs Pain Pain: 10/07 Peripheral IV 12/21/22 Posterior;Right Hand (Active) Precautions/Restrictions [...] program; Therapeutic activities Goals Short Term Goals Clerical Adjudicator Goals Time Frame for Short Term Goals: [...] included. Acute Care Physical Therapy Evaluation Observation (HEAD OF CONSERVATION/PT Visit Days : 1) Time In: 1449 [...] program, Therapeutic activities Goals Short Term Goals Penitentiary Goals Time Frame for Short Term Goals: [...] EDT Pre Procedure Patient Instructions Procedure Location hospital:[facility] [address] [facility]- Arrival before 6:30a: Park in front of [...] Living Will and/or Medical Durable Power of Math Teacher if you have one Bring a list [...] you have any additional questions please contact [phone] For financial questions regarding your procedure at a [facility], please contact [phone], option 1 For financial questions regarding anesthesia at a [facility], please contact [phone] documented in this encounter Plan of Treatment Upcoming Encounters Date Type Department Care Team (Late st Contact Info) Description 03/24/2024 9:00 AM EDT Office Visit Neurology - [address] [place] [address] Martell Calderon MD 2145 [facility] [address] [place] [address] TREMORS/ MEDICARE, FOR LIFE 03/28/2024 8:30 AM EDT Office Visit Primary Care - [address] [address] Cheo Santoyo DO [address] [place] [address] AWV 04/06/2024 9:45 AM EST Lab [facility] - [address] [facility] [address] [address] [place] [address] CBCMP,CEA,FEST 04/06/2024 10:15 AM EST Office Visit [facility] - 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 [address] [place] [address] Karly Bautista, PA [address] [place] [address] annual visit from date of surgery May/Jul 2024 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 documented as of this encounter Procedures Procedure Name Priority Date/Time Associated Diagnosis Comments OK ARTHRP KNE CONDYLE&PLATU MEDIAL&LAT COMPARTMENTS 12/21/2022 7:24 AM EDT Primary osteoarthritis of left knee Special Needs [place] Filler Shredder/Stewart 12/17 POCT GLUCOSE Routine 12/21/2022 7:02 AM EDT documented in this encounter Results * (ABNORMAL) POCT Glucose (12/21/2022 7:02 AM EDT) POC Glucose 127.0(H) 65.0 - 110.0 mg/dL [facility] Comment:MP - AMB PACU Blood 12/21/2022 7:02 AM EDT 12/21/2022 7:02 AM EDT Maurice Panchal MD POINT OF CARE TEST O RDERABLES [facility] [address] [place] [address] documented in this encounter Visit Diagnoses Diagnosis [...] 2118, Itching, Post-op diphenhydrAMINE (BENADRYL) injection 25 mg [...] Assess pain q4hrs May increase/decrease 2 ml/hr [id number] for adequate pain control pain up to max of 14 ml/hr Decrease infusion rate to 4 ml/hr [id number] prior to physical therapy or ambulation for lower extremity nerve catheters. New Bag 12/21/2022 8:45 AM EDT 500 mLs 6 mL/hr Thigh Right documented in this encounter Active and Recently Administered Medications Times are shown in EDT. Scheduled Medication Order 12/19/2022 12/20/2022 12/21/2022 acetaminophen (TYLENOL) tablet 1,000 mg (COMPLETED) 1,000 mg, Oral, ONCE, 1 dose, On Wed12/21/22 at 0630, Administer 30-60 minutes prior to surgery., 1000 mg of acetaminophen in preop, Pre-op (day of surgery) 0657 (Given - Provid er: Rocío Garza, SUZANNE) acetaminophen (TYLENOL) tablet 1,000 mg 1,000 mg, [...] mL IVPB (mini-bag) (COMPLETED) 2,000 mg, IntraVENous, TRANSITIONAL KINDERGARTEN TEACHER TO O.R., 1 dose, On Wed12/21/22 at [...] at 400 mL/hr, Administer over 15 Minutes, TRANSITIONAL KINDERGARTEN TEACHER TO O.R., On Wed12/21/22 at 0630, For 1 dose, One time dose for unilateral Total Hip or Knee Arthroplasty. To be administered by anesthesia staff after induction of anesthesia following antibiotic but prior to incision, Pre-op (day of surgery) 0733 (New Bag - Prov ider: MARIANA Astudillo - Comment: Infused over 10 minutes)1646 (Stopped - Provider: Tonia Skelton RN) Continuous Medication Order 12/19/2022 12/20/2022 12/21/2022 lactated ringers IV soln infusion (CANCELED) IntraVENous, at 50 mL/hr, CONTINUOUS, Starting on Wed12/21/22 at 0630, Preoperative use ONLY for NON-DIALYSIS patients, Pre-op (day of surgery), Routine 0658 (New Bag - Prov ider: Rocío Garza RN)09 (JUL Hold - Provider: Olivia Autohold - Reason: Patient not available)926 (JUL Unhold - Provider: Automatic Transfer Provider)1058 (Stopped - Provider: Tonia Skelton, RN) lactated ringers IV soln infusion IntraVENous, at 100 mL/hr, CONTINUOUS, Starting on Wed12/21/22 at 1015, Convert to hep-lock(saline lock) when taking PO fluids, BP stable and urine output greater than or equal to 30 ml/hr, Post-op 1213 (New Bag - Prov ider: Tonia Skelton, SUZANNE)1645 (Stopped - Provider: Tonia Skelton RN) ropivacaine 0.2% (NAROPIN) elastomeric infusion SOLN 500 mL 500 mL, Infiltration, at 6 mL/hr, CONTINUOUS, Starting on Wed12/21/22 at 0800, For 4 days, Do not remove catheter dressing without notifying anesthesiologist Assess pain q4hrs May increase/decrease 2 ml/hr [id number] for adequate pain control pain up to max of 14 ml/hr Decrease infusion rate to 4 ml/hr [id number] prior to physical therapy or ambulation for lower extremity nerve catheters. 0845 (New Bag - Prov ider: Julieth Kline RN)0927 ([facility] Hold - Provider: Olivia Autohold - Reason: Patient not available)0942 ([facility] Unhold - Provider: Olivia Autohold)1645 (Stopped - Provider: Tonia Skelton, SUZANNE) PRN Medication Order 12/19/2022 12/20/2022 12/21/2022 aluminum & magnesium hydroxide-simethicone (MAALOX) 200-200-20 MG/5ML suspension 30 mL 30 mL, Oral, EVERY 6 HOURS PRN, Starting on Wed12/21/22 at 0945, Until Wed12/21/22 at 211, Indigestion, Post-op bisacodyl (DULCOLAX) suppository 10 mg 10 mg, Rectal, DAILY PRN, Starting on Wed12/21/22 at 0945, Until Wed12/21/22 at 211, Constipation, Use oral route first. Use before [...] Post-op documented in this encounter Care Teams Website/Blog Editor Relationship Specialty Start Date End Date Felicitas Monaco MD PCP - General Family Medicine 06/18/22 07/05/23 documented as of this encounter
--- OUTSIDE RECORDS SUMMARY | 2024-01-11 22:16 | XMS_ITS | Encounter Summary ---
Author Organization [facility] Address [address] [place] [address] Care Team Providers Care Channel Program Manager Name Role Phone Felicitas Monaco MD Primary Care Provider [phone] Encounter Details Date Type Department Care Team (Late st Contact Info) Description 10/09/2022 Abstract Primary Care - [address] [place] [address] Felicitas Monaco MD [address] [place] [address] Social History Tobacco Use Types [...] Dr. [address] [place] [phone] Martell Calderon MD [address] [facility] [address] [place] [address] TREMORS/ MEDICARE, FOR LIFE 03/28/2024 8:30 AM EDT Office Visit Primary Care - [address] [phone] Cheo Santoyo, DO [address] [place] [address] AWV 04/06/2024 9:45 AM EST Lab [facility] - [facility] [address] [facility] [address] [place] [address] CBCMP,CEA,FEST 04/06/2024 10:15 AM EST Office Visit [facility] - [facility] [address] [facility] [address] [place] [address] Georgi Butterfield MD [address] [facility] [address] [place], [place] [phone] 6 MTH FU W/LABS, REV SCAN 04/13/2024 9:30 AM EST Office Visit Surgical Oncology - [facility] [address] [facility] [address] [place] [address] Delvis Cheek MD 125 [facility] 660 [place] [address] 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 documented as of this encounter Visit Diagnoses Not on filedocumented in this encounter Care Teams Channel Program Manager Relationship Specialty Start Date End Date Felicitas Monaco MD PCP - General Family Medicine 06/18/22 07/05/23 documented as of this encounter
--- OUTSIDE RECORDS SUMMARY | 2024-01-11 22:16 | XMS_ITS | Encounter Summary ---
Author Organization [facility] Address [address] [place] [address] Care Team Providers Care Cement Contractor Name Role Phone Felicitas Monaco MD Primary Care Provider [phone] Reason for Referral * Surgical (Routine) - Closed Specialty Diagnoses / Procedures Referred By Rachid jimenez Referred To Contact Orthopedic Surgery Diagnoses Primary osteoarthritis of right knee Maurice Panchal MD [address] [place] [phone] Maurice Panchal MD [address] [place] [id number] Referral ID Status Reason Start Date Expiration Date V isits Requested Visits Authorized [id number] Closed Insurance 11/27/2022 11/27/2023 1 1 [place] [address] M17.11 DATE [facility] Maurice Panchal MD, Orthopaedics [facility] [address] [phone] Comments The patient can be scheduled with any member of the group, including the provider with the first available appointments. * Imaging (Routine) - Closed Specialty Diagnoses / Procedures Referred By Rachid jimenez Referred To Contact Radiology Diagnoses Knee deformity, acquired, right Procedures CT KNEE RIGHT WO CONTRAST Maurice Panchal MD [address] [place] [address] Referral ID Status Reason Start Date Expiration Date Visits Re quested Visits Authorized [id number] Closed 11/27/2022 11/27/2023 1 1 Encounter Details Date Type Department Care Team (Late Contact Info) Description 11/27/2022 Orders Only Orthopaedics - [place] [id number] [place] [phone] Maurice Panchal MD [address] [place] [address] Preop testing (Primary Dx); Knee deformity, acquired, right; Primary osteoarthritis of right knee Social History [...] 9:00 AM EDT Office Visit Neurology - [facility] [address] [facility] [address] [place] [phone] Martell Calderon MD 214 [facility] [address] [place] [address] TREMORS/ MEDICARE, FOR LIFE 03/28/2024 8:30 AM EDT Office Visit Primary Care - [address] [phone] Cheo Santoyo DO [address] [place] [phone] AWV 04/06/2024 9:45 AM EST Lab [facility] - [facility] [address] [facility] [address] [place] [phone] CBCMP,CEA,FEST 04/06/2024 10:15 AM EST Office Visit [facility] - [facility] [address] [facility] [address] [place] [address] Georgi Butterfield MD [address] [place] [address] 6 MTH FU W/LABS, REV SCAN 04/13/2024 9:30 AM EST Office Visit Surgical Oncology - [facility] [address] [facility] [address] [place] [address] Delvis Cheek MD 125 [facility] 660 [place] [phone] 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 06/19/2024 10:30 AM EST Office Visit Orthopaedics- [place] [address] [facility] [address] [place] [phone] Karly Bautista PA [address] [place] [address] annual visit from date of surgery May/Jul 2024 for bilateral TKA and right LZIZ with Karly. Scheduled Orders Name Type Priority Associated Diagnoses Orde r Schedule Case Request Procedures Routine Primary osteoarthritis of right knee Ordered: 11/27/2022 Scheduled Referrals Name Type Priority Associated Diagnoses Orde r Schedule Ambulatory referral to Orthopedic Surgery Outpatient Referral Routine Primary osteoarthritis of right knee Ordered: 11/27/2022 documented as of this encounter Results * (ABNORMAL) Comprehensive Metabolic Panel (03/04/2023 1:03 [...] PM EDT Maurice Panchal MD CHEMISTRY ORDERABLES [facility] [address] [facility], [place] [address] * CBC (03/04/2023 1:03 PM EDT) Pathologist [facility] WBC 6.6 3.8 - 10.6 x10e3/mcL RSF [...] EDT Maurice Panchal MD HEMATOLOGY ORDERABLE S Performing Organization Address City/State/[facility] Co de Phone Number [facility] [address] [facility], [facility] [address] * CT KNEE RIGHT WO CONTRAST (02/10/2023 1:36 PM EDT) Anatomical Region Laterality Modality Thigh, Knee, Leg Computed Tomogr aphy 02/10/2023 4:22 PM EDT Impressions 02/10/2023 4:23 PM EDT Severe tricompartment degenerative change of the knee. Images performed for preoperative planning. Narrative 02/10/2023 4:[address] right knee without contrast: 02/10/23 INDICATION: evaluate joint deformity for surgery with Climax Hugo. COMPARISON: 08/20/2022 TECHNIQUE: Axial CT images [...] in this encounter Visit Diagnoses Diagnosis Preop testing- Primary Preoperative examination, unspecified Knee deformity, acquired, right Primary osteoarthritis of right knee Primary localized osteoarthrosis, lower leg Knee deformity, acquired, right documented in this encounter Care Teams Cement Contractor Relationship Specialty Start Date End Date Felicitas Monaco MD PCP - General Family Medicine 06/18/22 07/05/23 documented as of this encounter
--- OUTSIDE RECORDS SUMMARY | 2024-01-11 22:16 | XMS_ITS | Encounter Summary ---
Author Organization [facility] Address [address] [place] [address] Care Team Providers Care Nurse Technician Name Role Phone Felicitas Monaco MD Primary Care Provider [phone] Reason for Visit * Reason Comments Injections Right knee Supartz # 1 of 3, BUY & BILL Encounter Details Date Type Department Care Team (Late st Contact Info) Description 10/13/2022 8:45 AM EDT Office Visit Orthopaedics - [address] [place] [address] Georgi Andersen PA [address] [place] [address] Primary osteoarthritis of right knee (Primary Dx) [...] - Inhaled Oxygen Concentration - - Weight 99.1 kg (218 lb 8 oz) 10/13/2022 8:45 AM EDT Height 175.3 cm (5' 9) 10/13/2022 8:45 AM EDT Body Mass Index 32.27 10/13/2022 8:45 AM EDT documented in this encounter Progress Notes * Georgi Andersen PA - 10/13/2022 8:45 AM EDT Patient presents for visco supplementation injection CC: Chief Complaint Patient presents with Injections Right knee Supartz #1 of 3, BUY & BILL HPI: Patient presents for visco supplementation injection into the involved knee Physical Examination: Ht 5' 9 (1.753 m) Wt 218 lb 8 oz (99.1 kg) BMI 32.27 kg/m?? General: Patient is alert, awake, and orientated. No acute distress Right Knee: No erythema, swelling, warmth. Skin intact. Positive diffuse joint line tenderness. Painful ROM. Positive crepitus. Strength 5/5. Negative instability. Negative Eli's. Neurovascular intact distally. Assessment: 1. Primary osteoarthritis of right knee Treatment Plan: Viscosupplementation injection right knee. Orders: No orders of the defined types were placed in this encounter. Orders Placed This Encounter Medications sodium hyaluronate (SUPARTZ) injection 25 mg Procedures: Side: Right Injection: Supartz Injection Number: 1st We discussed the patient the risks, benefits, alternative, and potential complications associated with a Viscosupplemenation injection into the knee and it was determined that the patient wanted to proceed with the injection. We then marked the knee in the location of the injection. We then preppedthe injection sight under sterile conditions with Chlorhexidine prep. Ethyl Chloride was sprayed onthe injection site to numb the skin. After the injection site was appropriately numb I then injected one ampule of viscosupplementation into the intra-articular space of the involved knee. The injection site was then cleansed and hemostasis was obtained. We then sterily dressed the injection sight.The patient tolerated the procedure well. Post-procedure There were no complications during the procedure. The patient has been instructed inpost-procedure care. Follow-up: Follow up: 1 week Patient to follow-up sooner with any problems, questions, concerns, or worsening symptoms. documented in this encounter Plan of Treatment Upcoming Encounters Date Type Department Care Team (Late st Contact Info) Description 03/24/2024 9:00 AM EDT Office Visit Neurology - [facility] [address] [facility] [address] [place] [phone] Martell Caledron MD [address] [facility] [address] [place] [address] TREMORS/ MEDICARE, FOR LIFE 03/28/2024 8:30 AM EDT Office Visit Primary Care - [address] [address] [place] [address] [place] [phone] AWV 04/06/2024 9:45 AM EST Lab [facility] [address] [facility] [address] [place] [address] CBCMP,CEA,FEST 04/06/2024 10:15 AM EST Office [facility] [address] [facility] [address] [place] [address] Georgi Butterfield MD [address] [place] [address] 6 MTH FU W/LABS, REV SCAN 04/13/2024 9:30 AM EST Office Visit Surgical Oncology - [facility] [address] [facility] [address] [place] [address] Delvis Cheek MD 125 [facility] [address] [place] [phone] 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 06/19/2024 10:30 AM EST Office Visit Orthopaedics- [place] [address] [facility] 100 [place] [address] Karly Bautista PA 180 [facility] [address] [place] [address] annual visit from date of [...] Right documented in this encounter Care Teams Nurse Technician Relationship Specialty Start Date End Date Felicitas Monaco MD PCP - General Family Medicine 06/18/22 07/05/23 documented as of this encounter
--- OUTSIDE RECORDS SUMMARY | 2024-01-11 22:16 | XMS_ITS | Encounter Summary ---
Author Organization [facility] Address [address] [place] [address] Care Team Providers Care Cargo Mate Name Role Phone Felicitas Monaco MD Primary Care Provider [phone] Reason for Visit * Reason Comments Knee Pain Bilateral knee pain Encounter Details Date Type Department Care Team (Latest Contact Info) Description 08/20/2022 1:00 PM EDT Office Visit Orthopaedics - [address] [phone] [place] [address] [address] Bilateral primary osteoarthritis of knee (Primary Dx); Pain in both knees, unspecified chronicity Social History Tobacco Use Types Packs/Day Years [...] - Inhaled Oxygen Concentration - - Weight 94.3 kg (208 lb) 08/20/2022 1:06 PM EDT Height 175.3 cm (5' 9) 08/20/2022 1:06 PM EDT Body Mass Index 30.72 08/20/2022 1:06 PM EDT documented in this encounter Progress Notes * Bonny Mcarthur PA - 08/20/2022 1:00 PM EDT Images from the original note were not included. Date: 08/19/2022 Patient Name: Martínez Toribio : 1955 Primary Care Physician: Felicitas Monaco MD Reason for Visit: Bilateral knee pain History of Present Illness: I had the pleasure of seeing the patient in orthopedic clinic today. Patient was referred to our office for further evaluation by Dr. Dave Lynne due to bilateral knee complaints and those records have been reviewed. Patient is 67 y.o. male complaining of bilateral knee pain, left greater than right . He describes his pain as moderate pain and severe pain in addition to stiffness and instability. He states his symptoms have persisted since 1995 . He has been struggling with activities of daily living as a result of his symptoms including walking short distances less than a 1/4mile or 2 city blocks, exercises, getting dressed, and stairs. Patient admits to a fear of falling.He has made attempts at conservative treatment options including weight loss, physical therapy, theuse of a brace, cane, medications, and multiple knee scopes. Patient would like to now discuss definitive treatment for their complaints. Patient's medications, allergies, past medical, surgical, social and family histories were reviewedand updated as appropriate. Review of Systems: The positives are knee pain, hypertension, diabetes, colon cancer, low back pain Physical Examination: Estimated body mass index is 32.78 kg/m?? as calculated from the following: Height as of 06/30/22: 5' 9 (1.753 m). Weight as of 06/30/22: 222 lb (100.7 kg). GENERAL APPEARANCE: normal PSYCH: alert, oriented, mood/affect appropriate SKIN: no ulcers or rashes of lower extremities VASCULAR: no signs of significant arterial, venous, or lymphatic insufficiency NEUROLOGICAL: SENSORY: normal to light touch in lower extremities. STRAIGHT LEG RAISE negative. MUSCULOSKELETAL: GAIT & STATION: Antalgic with a cane SPINE/PELVIS: normal RIGHT HIP: Alignment: Normal Leg [...] and Tone: Normal Tests: Negative Stinchfield test RIGHT KNEE: Alignment: Mild varus malalignment Skin: Normal without any rashes or lesions Effusion: None Palpation: Medial joint line tenderness. Extensor mechanism intact. Popliteal fullness ROM: Painful ROM extension: Full extension ROM flexion: 125 degrees Stability: Normal Strength and Tone: Normal LEFT KNEE: Alignment: Mild varus malalignment Skin: Normal with no rashes or lesions Effusion: None Palpation: Medial joint line tenderness, extensor mechanism intact ROM: Painful ROM extension: Full extension ROM flexion: 125 degrees Stability: Normal Strength and Tone: Normal Xray Result (most recent): XR KNEE LEFT (MIN 4 VIEWS) 08/20/2022 Narrative X-rays of the left knee were available for review on the PACS system today. X- rays show severe osteoarthritis with near [id number]-[id number]-[id number] appearance of the medial compartment with significant narrowing resulting in mild varus malalignment. Osteophytes are appreciated on the medial femoral condyle. Lateral view does show a loose body in the posterior capsule. XR knee right (MIN 4 VIEWS) 08/20/2022 Narrative X-rays of the right knee were available for review on the PACS system today. X- rays show end-stage osteoarthritis with near complete loss of medial joint space with significant narrowing causing mildvarus malalignment. Osteophytes are appreciated on the medial femoral condyle. Loose body is noted on lateral view of the posterior capsule Assessment: ICD-10-CM 1. Pain in both knees, unspecified chronicity M25.561 M25.562 Plan: Patient understands that he has end-stage osteoarthritis of both knees that will require total kneereplacement for definitive treatment. Patient was very pleased with today's question and answer session. I did review x-rays with him explaining his arthritis pattern and expected recovery from totaljoint arthroplasty as well as the surgical procedure itself. Patient is going to follow-up with us later this fall or possibly early 2023. Patient may contact me at any time for any issues or concerns. Patient will need to return to clinic to be evaluated by Dr. Panchal prior to surgical intervention. Follow Up: Meet and greet with Dr. Panchal once he is ready to proceed with surgery documented in this encounter Plan of Treatment Upcoming Encounters Date Type Department Care Team (Late st Contact Info) Description 03/24/2024 9:00 AM EDT Office Visit Neurology - [facility] [address] [facility] [address] [place] [phone] Martell Calderon MD [address] [facility] [address] [place] [address] TREMORS/ MEDICARE, FOR LIFE 03/28/2024 8:30 AM EDT Office Visit Primary Care - [address] [phone] Cheo Santoyo, [address] [phone] AWV 04/06/2024 9:45 AM EST Lab [facility] - [facility] [address] [facility] [address] [place] [address] CBCMP,CEA,FEST 04/06/2024 10:15 AM EST Office Visit [facility] - [facility] [address] [facility] [address] [place] [address] Georgi Butterfield MD [address] [place] [address] 6 MTH FU W/LABS, REV SCAN 04/13/2024 9:30 AM EST Office Visit Surgical Oncology - [facility] [address] [facility] [address] [place] [address] Delvis Cheek MD [address] [facility] 660 [place] [phone] 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 06/19/2024 10:30 AM EST Office Visit Orthopaedics- Les Valencia [address] [facility] [address] [address] [place] [phone] Karly Bautista PA [address] [place] [phone] annual visit from date of surgery May/Jul 2024 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 documented as of this encounter Procedures Procedure Name Priority Date/Time Associated Diagnosis Comments XR KNEE RIGHT (MIN 4 VIEWS) Routine 08/20/2022 1:18 PM EDT Pain in both knees, unspecified chronicity XR KNEE LEFT (MIN 4 VIEWS) Routine [...] today. ??X-rays show severe osteoarthritis with near [id number]-[id number] appearance of the medial compartment with significant narrowing resulting in mild varus malalignment. ??Osteophytes are appreciated on the medial femoral condyle. ??Lateral view does show a loose body in the posterior capsule. Bonny [facility]ALLAS IMG DIAGNOSTIC IMAGI NG ORDERABLES * XR KNEE RIGHT (MIN 4 VIEWS) (CLINIC PERFORMED) (08/20/2022 1:18 PM EDT) Anatomical Region Laterality Modality Thigh, Knee, Leg Computed Radiog sharla Narrative 08/20/2022 1:28 PM EDT X-rays of the right knee were available for review on the PACS system today. ??X-rays show significant osteoarthritis of the right knee with near owii-[id number] appearance in the medial compartment with significant narrowing of the medial joint space resulting in mild varus malalignment. ?? Osteophytes are appreciated on the medial femoral condyle. Bonny [facility]ALL[facility] IMG DIAGNOSTIC IMAGI NG ORDERABLES documented in this encounter Visit Diagnoses Diagnosis Bilateral primary osteoarthritis of knee- Primary Pain in both knees, unspecified chronicity documented in this encounter Care Teams Cargo Mate Relationship Specialty Start Date End Date Felicitas Monaco MD PCP - General Family Medicine 06/18/22 07/05/23 documented as of this encounter
--- OUTSIDE RECORDS SUMMARY | 2024-01-11 22:16 | XMS_ITS | Encounter Summary ---
Author Organization Jose Alejandro Raymundolinnea [facility] Address [address] [place] [address] Care Team Providers Care Pool Manager Name Role Phone Felicitas Monaco MD Primary Care Provider [phone] Reason for Referral * Imaging (Routine) - Open Specialty Diagnoses / Procedures Referred By [facility] Referred To Contact Radiology Diagnoses Carcinoma of ascending colon (HCC) Adenocarcinoma of cecum (HCC) Malignant neoplasm of intestine (HCC) Procedures CT ABDOMEN PELVIS W IV CONTRAST Additional Contrast? None Georgi Butterfield MD [address] [place] [address] Referral ID Status Reason Start Date Expiration Date Visits Re quested Visits Authorized [id number] Open 04/07/2023 04/06/2024 1 1 * Imaging (Routine) - Open Specialty Diagnoses / Procedures Referred By [facility] Referred To Contact Radiology Diagnoses Carcinoma of ascending colon (HCC) Adenocarcinoma of cecum (HCC) Malignant neoplasm of intestine (HCC) Procedures CT CHEST W CONTRAST Georgi Butterfield MD [address] [place] [address] Referral ID Status Reason Start Date Expiration Date Visits Re quested Visits Authorized [id number] Open 04/07/2023 04/06/2024 1 1 Reason for Visit * Reason Comments Follow-up Encounter Details Date Type Department Care Team (Late st Contact Info) Description 10/05/2022 10:15 AM EDT Office Visit [facility] Hematology & Oncology - [facility]. [address] [facility] [address] [place] [address] Georgi Butterfield MD [address] [place] [address] Carcinoma of ascending colon (HCC) (Primary Dx); Iron deficiency anemia, unspecified iron deficiency anemia type; Adenocarcinoma of cecum (HCC); Malignant neoplasm of intestine (HCC) Social [...] Sign Reading Time Taken Comments Blood Pressure 110/75 10/05/2022 10:09 AM EDT Pulse 78 10/05/2022 10:09 AM EDT Temperature 36.7 ??C (98 ??F) 10/05/2022 10:09 AM EDT Respiratory Rate 16 10/05/2022 10:09 AM EDT Oxygen Saturation 96% 10/05/2022 10:09 AM EDT Inhaled Oxygen Concentration - - Weight 99.1 kg (218 lb 8 oz) 10/05/2022 10:09 AM EDT Height 175.3 cm (5' 9) 10/05/2022 10:09 AM EDT Body Mass Index 32.27 10/05/2022 10:09 AM EDT documented in this encounter Progress Notes * Georgi Butterfield MD - 10/08/2022 9:38 AM EDT Images from the original note were not included. [facility] HEMATOLOGY & ONCOLOGY Georgi A. Beldner, MD Rosalino Bellil, MD MD Chandan Kirk DO Jenny Riley, MD Margaret Brady, MD Caitlin Mengler, [facility]- Marcela Jackman, [employer] Gisselle Padilla NP [email or web address] Hematology/Medical Oncology Patient Name: Martínez Toribio Date of : 1955 (67 y.o.) Date of Visit: 10/05/2022 PHYSICIANS: PCP: Felicitas Monaco MD Involved Physician(s): [...] 8 cycles as of 03/03/2021. CURRENT TREATMENT: Observation with surveillance imaging. INTERVAL HISTORY: The patient is a pleasant 67-year-old male who has been doing well since last encounter. He voices no additional concerns. He states he is planning to have left knee surgery in November and right knee surgery in February. He has been doing well overall. He is up to date with his colonoscopies.No additional concerning findings. He will be due for surveillance imaging in late January or early February. Otherwise, he voices no additional complaints. Past Medical History: Diagnosis Date Cancer (HCC) 2019 Colon Chronic back pain Diabetes (HCC) DJD (degenerative joint disease) Hip pain HTN (hypertension) Hyperlipidemia Spinal stenosis Past Surgical History: Procedure Laterality Date BACK SURGERY 02/05/1986 laminectomy, discectomy CERVICAL DISCECTOMY 04/18/2007 , cervical fusion 2013 HAND CARPECTOMY Left 2021 HAND SURGERY Right 2001 debby luanr repair HEMICOLECTOMY 2020 HIP SURGERY Right 06/18/2022 INTRA ARTICULAR HIP RIGHT HIP performed by Martinez Guthrie MD at [facility] PAIN MANAGEMENT JOINT REPLACEMENT Right 2011 shoulder KIDNEY STONE SURGERY 2009 basket removal KNEE ARTHROSCOPY Left 10/13/2021 multiple knee scopes right and left 1997 thru 2021 SHOULDER SURGERY Right 2010 2011 right hemiarthroplasty SUBTOTAL COLECTOMY 2019 R. Hemicolectomy UPPER GASTROINTESTINAL ENDOSCOPY 2019 Family History Problem Relation Age of Onset Diabetes Maternal Grandmother Social History Tobacco Use Smoking Status Former Packs/day: 1.00 Years: 27.00 Pack years: 27.00 Types: Cigarettes Start date: 05/31/1969 Quit date: 05/31/1996 Years since quittin.3 Smokeless Tobacco Never Social History Substance and Sexual Activity Alcohol Use Yes Alcohol/week: 4.0 - 5.0 standard drinks Types: 4 - 5 Glasses of wine per week Social History Substance and Sexual Activity Drug Use Never Medications: has a current medication list which includes the following prescription(s): atorvastatin, pantoprazole, empagliflozin, metformin, olmesartan, ondansetron hcl, acetaminophen, aspirin, tadalafil, and dulaglutide. Allergies: Allergies Allergen Reactions Morphine Itching and Nausea And Vomiting Other reaction(s): migraines, hallucinations, itching Other reaction(s): Hallucinations, HALLUCINATIONS, ITCH, Other (See Comments) Event: hallucinations Morphine And Related Hallucinations, Itching, Nausea And Vomiting and Other (See Comments) Event: hallucinations REVIEW OF SYSTEMS: 12 point ROS was performed and pertinent positives and negatives were placed in the interval history. PHYSICAL EXAM: ECOG performance status: 0. Vitals: 10/05/22 1009 BP: 110/75 Site: Right Upper Arm Position: Sitting Cuff Size: Small Adult Pulse: 78 Resp: 16 Temp: 98 ??F (36.7 ??C) TempSrc: Oral SpO2: 96% Weight: 218 lb 8 oz (99.1 kg) Height: 5' 9 (1.753 m) GEN: No apparent distress, sitting comfortably. 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 No evidence of recurrent disease. He will continue followup with Dr. Sagastume for colonoscopies. I will see him back in [address] imaging just prior to return visit. CEA is pending from today. Planning phase for total knee replacement: The patient has no contraindications for upcoming plan of surgery with Dr. Panchal. Georgi Butterfield MD Hematology/Medical Oncology documented in this encounter Plan of Treatment Upcoming Encounters Date Type Department Care Team (Late st Contact Info) Description 03/24/2024 9:00 AM EDT Office Visit Neurology - [facility] [address] [facility] [address] [place] [address] Martell Calderon MD [address] [facility] [address] [place] [address] TREMORS/ MEDICARE, FOR LIFE 03/28/2024 8:30 AM EDT Office Visit Primary Care - [address] [phone] Cheo Santoyo, [address] [place] [phone] AWV 04/06/2024 9:45 AM EST Lab [place] [facility] - [facility] [address] [facility] [address] [place] [phone] CBCMP,CEA,FEST 04/06/2024 10:15 AM EST Office Visit [place] [facility] - [facility] [address] [facility] [address] [place] [address] Georgi Butterfield MD [address] [place], [place] [phone] 6 MTH FU W/LABS, REV SCAN 04/13/2024 9:30 AM EST Office Visit Surgical Oncology - [facility] [address] [facility] [address] [place] [address] Delvis Cheek MD [address] [facility] [address] [place] [address] 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 06/19/2024 10:30 AM EST Office Visit Orthopaedics- Les Fair [address] [facility] [address] [place] [address] Karly Bautista PA [address] [place] [address] annual visit from date of surgery May/Jul 2024 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 documented as of this encounter Procedures Procedure Name Priority Date/Time Associated Diagnosis Comments SOLUBLE TRANSFERRIN RECEPTOR Routine 10/05/2022 10:02 AM EDT Iron deficiency anemia, unspecified iron deficiency anemia type CBC WITH AUTO DIFFERENTIAL Routine 10/05/2022 10:02 AM EDT Iron deficiency anemia, unspecified iron deficiency anemia type IRON AND TIBC Routine 10/05/2022 10:02 AM EDT Iron deficiency anemia, unspecified iron deficiency anemia type RETICULOCYTES Routine 10/05/2022 10:02 AM EDT Iron deficiency anemia, unspecified iron deficiency anemia type FERRITIN Routine 10/05/2022 10:02 AM EDT Iron deficiency anemia, unspecified iron deficiency anemia type COMPREHENSIVE METABOLIC PANEL Routine 10/05/2022 10:02 AM EDT Carcinoma of ascending colon (HCC) Iron deficiency anemia, unspecified iron deficiency anemia type documented in this encounter Results * CT [...] recurrent or metastatic disease. Georgi Butterfield MD [facility] CT ORDERABLES * CT CHEST W CONTRAST [...] recurrent or metastatic disease. Georgi Butterfield MD [facility] CT ORDERABLES * Reticulocytes (10/05/2022 10:02 AM EDT) RBC 5.18 4.00 - 5.60 x10e6/mcL [facility] Retic Ct Pct 1.7 0.5 - 2.0 % [facility] Retic Ct Abs 0.0865 0.0235 - 0.1220 /mcL [facility] Comment: Test Performed at: [facility] [address] [facility] [place] [address] Blood BLOOD SPECIMEN / Unknown 10/05/2022 10:02 AM EDT 10/05/2022 9:25 PM EDT Georgi Butterfield MD HEMATOLOGY ORDERABL ES Performing Organization Address [facility] Co de Phone Number [facility] [address] [place] [address] * Ferritin (10/05/2022 10:02 AM EDT) Pathologist [facility] Ferritin 244.4 30.0 - 400.0 ng/mL [facility] Comment: Test Performed at: [facility] [address] [place] [address] [place] [address] Blood BLOOD SPECIMEN / Unknown 10/05/2022 10:02 AM EDT 10/05/2022 9:25 PM EDT Georgi Butterfield MD CHEMISTRY ORDERABLE S Performing Organization Address [facility] de Phone Number [facility] [address] [place] [address] * Iron and TIBC (10/05/2022 10:02 AM EDT) [facility] Iron 119 59 - 158 mcg/dL [facility] UIBC 186.3 112.0 - 347.0 mcg/dL [facility] TIBC 306 250 - 450 mcg/dL [facility] Iron % Saturation 39 20 - 40 % [facility] Comment: Test Performed at: [facility] [address] [place] [address] [place] [address] Serum BLOOD SPECIMEN / Unknown 10/05/2022 10:02 AM EDT 10/05/2022 9:25 PM EDT Narrative [facility] - 10/05/2022 9:39 PM EDT Is Patient Fasting?->no No of Hours?->no Georgi Butterfield MD CHEMISTRY ORDERABLE S Performing Organization Address [facility] Co de Phone Number [facility] [address] [place] [phone] * Soluble transferrin receptor (10/05/2022 10:02 AM EDT) [facility] Soluble Transferrin Recept 16.5 12.2 - 27.3 nmol/L [facility] Comment: Performed At: [facility] [address] [id number] Ajit Swift MD Ph:[phone] Test Performed at: [facility] [address] [facility] [place] [address] Blood BLOOD SPECIMEN / Unknown 10/05/2022 10:02 AM EDT 10/05/2022 9:25 PM EDT Georgi Butterfield MD HEMATOLOGY ORDERABL ES [facility] [address] [facility] [place] [address] * CBC with Auto Differential (10/05/2022 10:02 AM EDT) WBC 5.9 4.1 - 10.9 K/uL [facility] Lymphocytes Absolute 1.9 0.6 - 4.1 K/uL [facility] Absolute Mid 0.5 0.0 - 1.8 K/uL [facility] Granulocyte Absolute Count 3.5 2.0 - 7.8 K/uL [facility] Lymphocytes 32.8 10.0 - 58.5 % [facility] MID % 8.1 0.1 - 24.0 % [facility] Granulocytes % 59.1 37.0 - 92.0 % [facility] RBC 5.10 4.20 - 6.30 M/uL [facility] Hemoglobin 15.9 12.0 - 17.5 g/dL [facility] Hematocrit 47.6 37.0 - 51.0 % [facility] MCV 93.4 80.0 - 97.5 fL [facility] MCH 31.2 26.0 - 32.0 pg [facility] MCHC 33.4 31.0 - 36.0 g/dL [facility] RDW 13.5 11.5 - 14.5 % [facility] Platelets 250 140 - 440 K/uL [facility] MPV 7.7 0.0 - 49.9 fL [facility]EM[facility] Whole Blood BLOOD SPECIMEN / Unknown 10/05/2022 10:02 AM EDT 10/05/2022 10:02 AM EDT Narrative [facility] - 10/05/2022 10:11 AM EDT Testing Location: [facility] Hematology and Oncology, [address] [place] [address] [address], [place] [address], Georgi Butterfield MD HEMATOLOGY ORDERABL ES [facility] HEMATOLOGY [facility]COLOGY [address] [place] [phone], [facility] * (ABNORMAL) Comprehensive Metabolic Panel (10/05/2022 10:02 AM EDT) Sodium 142 135 - 145 mmol/L [facility] Potassium 5.2 3.5 - 5.3 mmol/L [facility] Chloride 105 98 - 107 mmol/L [facility] CO2 26 22 - 29 mmol/L [facility] Glucose 109(H) 70 - 99 mg/dL [facility] BUN 17 8 - 23 mg/dL [facility] Creatinine 1.1 0.7 - 1.3 mg/dL [facility] Anion Gap 10 2 - 17 mmol/L [facility] Osmolaliy Calculated 285 270 - 287 mOsm/kg [facility] Calcium 9.6 8.8 - 10.2 mg/dL [facility] Total Protein 6.5 6.4 - 8.3 g/dL [facility] Albumin 4.6 3.5 - 5.2 g/dL [facility] Globulin 1.9 1.9 - 4.4 g/dL [facility] Albumin/Globulin Ratio 2.40 1.00 - 2.70 [facility] Total Bilirubin 0.71 0.00 - 1.20 mg/dL [facility] Alk Phosphatase 65 40 - 130 unit/L [facility] AST 23 0 - 50 unit/L [facility] ALT 37 0 - 50 unit/L [facility] Est, Glom Filt Rate 74 >=60 mL/min/1.7 3m? [facility] Comment: VERIFIED by Discern Expert. GFR [...] estimating GFR in adults. Test Performed at: [facility] [address] [place] [address] Blood BLOOD SPECIMEN / Unknown 10/05/2022 10:02 AM EDT 10/05/2022 9:25 PM EDT Georgi Butterfield MD CHEMISTRY ORDERABLE S [facility] [address] [place] [address] documented in this encounter Visit Diagnoses Diagnosis Carcinoma of ascending colon (HCC)- Primary Malignant neoplasm of ascending colon Iron deficiency anemia, unspecified iron deficiency anemia type Adenocarcinoma of cecum (HCC) Malignant neoplasm of intestine (HCC) Malignant neoplasm of intestinal tract, part unspecified Carcinoma of ascending colon (HCC) Malignant neoplasm of ascending colon Adenocarcinoma of cecum (HCC) Malignant neoplasm of intestine (HCC) Malignant neoplasm of intestinal tract, part unspecified documented in this encounter Care Teams Pool Manager Relationship Specialty Start Date End Date Felicitas Monaco MD PCP - General Family Medicine 06/18/22 07/05/23 documented as of this encounter
--- OUTSIDE RECORDS SUMMARY | 2024-01-11 22:16 | XMS_ITS | Encounter Summary ---
Author Organization [facility]andro [facility] Address [address] [place] [address] Care Team Providers Care Mechanical Oxidizer Name Role Phone Felicitas Monaco MD Primary Care Provider [phone] Reason for Visit * Reason Onset Date Comments Other 07/28/2022 Medication updat e Call Patient 07/28/2022 Encounter Details Date Type Department Care Team ([facility] Contact Info) Description 07/28/2022 Telephone Neurosurgery & Spine - [address] [place] [address] Willa Sandhu, IN SCHOOL SUSPENSION COORDINATOR - REGISTERED VASCULAR TECHNOLOGIST (RVT) [address] [place] [address] Other (Medication update); Call Patient Social History Tobacco Use Types [...] Upcoming Encounters Date Type Department Care Team ([facility] Contact Info) Description 03/24/2024 9:00 AM EDT Office Visit Neurology - [facility] [address] [facility] [address] [place] [address] Martell Calderon MD [address] [facility] [address] [place], [place] [phone] TREMORS/ MEDICARE, FOR LIFE 03/28/2024 8:30 AM EDT Office Visit Primary Care - [address] [address] Cheo Santoyo [address] [address] AWV 04/06/2024 9:45 AM EST Lab [place] - [facility] [address] [facility] [address] [place] [address] CBCMP,CEA,FEST 04/06/2024 10:15 AM EST Office Visit [place] - [facility] [address] [facility] [address] [place] [address] Georgi Butterfield MD [address] [facility] [address] [facility] [address] [place] [address] 6 MTH FU W/LABS, REV SCAN 04/13/2024 9:30 AM EST Office Visit Surgical Oncology - [facility] [address] [facility] [address] [place] [address] Delvis Cheek MD 125 [facility] [address] [place] [phone] 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 06/19/2024 10:30 AM EST Office Visit Orthopaedics- Les Valencia [address] [facility] [address] [place] [address] Karly Bautista, BURT [address] [facility] [address] [place] [address] annual visit from date of surgery May/Jul 2024 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 documented as of this encounter Visit Diagnoses Not on filedocumented in this encounter Care Teams Mechanical Oxidizer Relationship Specialty Start Date End Date Felicitas Monaco MD PCP - General Family Medicine 06/18/22 07/05/23 documented as of this encounter
--- OUTSIDE RECORDS SUMMARY | 2024-01-11 22:16 | XMS_ITS | Encounter Summary ---
Author Organization Jose Alejandro Ray[facility]olinnea [facility] Address [address] [place] [address] Care Team Providers Care Employee Wellness/Fitness Coordinator Name Role Phone Felicitas Monaco MD Primary Care Provider [phone] Encounter Details Date Type Department Care Team (Latest Contact Info) Description 12/14/2022 Travel Social History Tobacco Use Types Packs/Day [...] Dr. [address] [place] [address] Martell Calderon MD [address] [facility] [address] [place] [address] TREMORS/ MEDICARE, FOR LIFE 03/28/2024 8:30 AM EDT Office Visit Primary Care - [address] [address] Cheo Santoyo DO [facility] [place] [address] AWV 04/06/2024 9:45 AM EST Lab [place] [facility] - [facility] [address] [facility] [place] [address] [place] [address] CBCMP,CEA,FEST 04/06/2024 10:15 AM EST Office Visit [place] [facility] - [facility] [address] [facility] [place] [address] [place] [address] Georgi Butterfield MD [address] [place], [place] [phone] 6 MTH FU W/LABS, REV SCAN 04/13/2024 9:30 AM EST Office Visit Surgical Oncology - [facility] [address] [facility] [place] [address] [place] [address] Delvis Cheek MD 125 [facility] 660 [place] [address] 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 06/19/2024 10:30 AM EST Office Visit Orthopaedics- Les Valencia [address] [facility] [address] [place] [phone] Karly Bautista PA [address] [place] [phone] annual visit from date of surgery May/Jul 2024 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 documented as of this encounter Visit Diagnoses Not on filedocumented in this encounter Care Teams Employee Wellness/Fitness Coordinator Relationship Specialty Start Date End Date Felicitas Monaco MD PCP - General Family Medicine 06/18/22 07/05/23 documented as of this encounter
--- OUTSIDE RECORDS SUMMARY | 2024-01-11 22:16 | XMS_ITS | Encounter Summary ---
Author Organization Jose Alejandro [facility]nea [facility] Address [address] [place] [address] Care Team Providers Care Whizzer Operator Name Role Phone Felicitas Monaco MD Primary Care Provider [phone] Encounter Details Date Type Department Care Team (Late st Contact Info) Description 11/30/2022 Abstract [place] [facility] - [facility]. [address] [facility] [address] [place] [address] Georgi Butterfield MD [address] [place] [address] Social History Tobacco Use Types [...] AM EDT Office Visit Neurology - [facility] [address] [facility] [address] [place] [address] Martell Calderon MD 2[address] [facility] [address] [place] [address] TREMORS/ MEDICARE, FOR LIFE 03/28/2024 8:30 AM EDT Office Visit Primary Care - [address] [phone] Cheo Santoyo DO [address] [place] [phone] AWV 04/06/2024 9:45 AM EST Lab [facility] [facility] - [facility] [address] [facility] [address] [place] [address] CBCMP,CEA,FEST 04/06/2024 10:15 AM EST Office Visit [place] [facility] - [facility] [address] [facility] [address] [place] [address] Georgi Butterfield MD [address] [place] [address] 6 MTH FU W/LABS, REV SCAN 04/13/2024 9:30 AM EST Office Visit Surgical Oncology - [facility] [address] [facility] [address] [place] [address] Delvis Cheek MD 125 [facility] [address] [place] [address] 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 06/19/2024 10:30 AM EST Office Visit Orthopaedics- Les Valencia [address] [facility] 100 [place] [phone] Karly Bautista, BURT [address] [facility] [address] [place] [address] annual visit from date of surgery May/Jul 2024 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 documented as of this encounter Visit Diagnoses Not on filedocumented in this encounter Care Teams Whizzer Operator Relationship Specialty Start Date End Date Felicitas Monaco MD PCP - General Family Medicine 06/18/22 07/05/23 documented as of this encounter
--- OUTSIDE RECORDS SUMMARY | 2024-01-11 22:16 | XMS_ITS | Encounter Summary ---
Author Organization Jose Alejandro [facility] Address [address] [place] [address] Care Team Providers Care Capacity Planner Name Role Phone Felicitas Monaco MD Primary Care Provider [phone] Reason for Referral * Surgical (Routine) - Closed Specialty Diagnoses / Procedures Referred By Rachid jimenez Referred To Contact Orthopedic Surgery Diagnoses Primary osteoarthritis of left knee Procedures UT ARTHRP KNE CONDYLE&PLATU MEDIAL&LAT COMPARTMENTS Maurice Panchal MD [facility] [address] [address] Maurice Panchal MD [address] [place] [address] Referral ID Status Reason Start Date Expiration Date V isits Requested Visits Authorized [id number] Closed Insurance 09/30/2022 09/30/2023 1 1 [place] [id number] M17.11 DATE [facility] Maurice Panchal MD, Orthopaedics [facility] [address] [address] Comments The patient can be scheduled with any member of the group, including the provider with the first available appointments. Encounter Details Date Type Department Care Team (Late st Contact Info) Description 09/30/2022 Orders Only Orthopaedics - [address] - [address] [place] [address] Maurice Panchal MD [address] [facility] 105 [place] [address] Primary osteoarthritis of left knee (Primary Dx) Social History Tobacco Use [...] Visit Neurology - [facility] [address] [facility] [address] [place] [phone] Martell Calderon MD 214 [facility] [place] [address] [place] [address] TREMORS/ MEDICARE, FOR LIFE 03/28/2024 8:30 AM EDT Office Visit Primary Care - [address] [phone] Cheo Santoyo, [address] [place] [phone] AWV 04/06/2024 9:45 AM EST Lab [facility] - [facility] [address] [facility] [address] [place] [address] CBCMP,CEA,FEST 04/06/2024 10:15 AM EST Office Visit [facility] - [facility] [address] [facility] [address] [place] [address] Georgi Butterfield MD [address] [place] [address] 6 MTH FU W/LABS, REV SCAN 04/13/2024 9:30 AM EST Office Visit Surgical Oncology - [facility] [address] [facility] [address] [place] [address] Delvis Cheek MD 125 [facility] [address] [place] [address] 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 06/19/2024 10:30 AM EST Office Visit Orthopaedics- Les Valencia [address] [facility] [address] [place] [phone] Karly Bautista, BURT [address] [place] [address] annual visit from date of surgery May/Jul 2024 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 Scheduled Referrals Name Type Priority Associated Diagnoses Orde r Schedule Ambulatory referral to Orthopedic Surgery Outpatient Referral Routine Primary osteoarthritis of left knee Ordered: 09/30/2022 documented as of this encounter Visit Diagnoses Diagnosis Primary osteoarthritis of left knee- Primary Primary localized osteoarthrosis, lower leg documented in this encounter Care Teams Capacity Planner Relationship Specialty Start Date End Date Felicitas Monaco MD PCP - General Family Medicine 06/18/22 07/05/23 documented as of this encounter
--- OUTSIDE RECORDS SUMMARY | 2024-01-11 22:16 | XMS_ITS | Encounter Summary ---
Author Organization Jose Alejandro [facility] Address [address] [place] [address] Care Team Providers Care Indian Blanket Weaver Name Role Phone Felicitas Monaco MD Primary Care Provider [phone] Encounter Details Date Type Department Care Team (Late st Contact Info) Description 12/18/2022 Prep for Procedure Orthopaedics - [place] [id number] [phone] Bonny Mcarthur PA [facility] [address] [address] Social History Tobacco Use Types Packs/Day Years [...] 9:00 AM EDT Office Visit Neurology - [facility] [place] [address] [facility] [address] [place] [address] Martell Calderon MD 2144 [facility] [address] [place] [address] TREMORS/ MEDICARE, FOR LIFE 03/28/2024 8:30 AM EDT Office Visit Primary Care - [address] [address] Cheo Santoyo DO [address] [place] [address] AWV 04/06/2024 9:45 AM EST Lab [facility] - [facility] [place] [address] [facility] [address] [place] [address] CBCMP,CEA,FEST 04/06/2024 10:15 AM EST Office Visit [facility] - [facility] [place] [address] [facility] [address] [place] [address] Georgi Butterfield MD [address] [place] [address] 6 MTH FU W/LABS, REV SCAN 04/13/2024 9:30 AM EST Office Visit Surgical Oncology - [facility] [place] [address] [facility] [address] [place] [address] Delvis Cheek MD 125 [facility] [address] [place] [address] 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 06/19/2024 10:30 AM EST Office Visit Orthopaedics- Les Valencia 615 [facility] 100 [place] [phone] Karly Bautista, BURT [address] [facility] 301 [place] [address] annual visit from date of surgery May/Jul 2024 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 documented as of this encounter Visit Diagnoses Not on filedocumented in this encounter Care Teams Indian Blanket Weaver Relationship Specialty Start Date End Date Felicitas Monaco MD PCP - General Family Medicine 06/18/22 07/05/23 documented as of this encounter
--- OUTSIDE RECORDS SUMMARY | 2024-01-11 22:16 | XMS_ITS | Encounter Summary ---
Author Organization Jose Alejandro Kit [facility] Address [address] [place] [address] Care Team Providers Care Pcas Name Role Phone Felicitas Monaco MD Primary Care Provider [phone] Reason for Visit * Reason Comments Follow-up 3 month f/u Encounter Details Date Type Department Care Team (Late st Contact Info) Description 09/21/2022 10:30 AM EDT Office Visit Primary Care - [address] [place] [address] Felicitas Monaco MD [address] [place] [phone] Chronic low back pain, unspecified back pain laterality, unspecified whether sciatica present (Primary Dx); Type 2 diabetes mellitus without complication, without [...] Sign Reading Time Taken Comments Blood Pressure 116/82 09/21/2022 10:24 AM EDT Pulse 82 09/21/2022 10:24 AM EDT Temperature 37 ??C (98.6 ??F) 09/21/2022 10:24 AM EDT Respiratory Rate - - Oxygen Saturation 97% 09/21/2022 10:24 AM EDT Inhaled Oxygen Concentration - - Weight 98.7 kg (217 lb 9 oz) 09/21/2022 10:24 AM EDT Height 175.3 cm (5' 9) 09/21/2022 10:24 AM EDT Body Mass Index 32.13 09/21/2022 10:24 AM EDT documented in this encounter Progress Notes * Felicitas Monaco MD - 09/21/2022 10:41 AM EDT PROGRESS NOTE Martínez Toribio is a 67 y.o.male here for evaluation of the following chief complaint(s): Chief Complaint Patient presents with Follow-up 3 month f/u SUBJECTIVE 67yo M w/ h/o colon ca, DMII, GERD, HTN, kidney stones, chronic back pain. Patient had labs drawn at the [employer] [facility] after our last visit. These labs have not been sent tome yet. He is going to obtain the labs and have them sent to me. DMII: metformin 1000mg bid, jardiance 25mg, trulicity 1.5mg weekly -checking BS at home. Ranging 90-140s -A1c today improved to 6.7. Chronic pain: Low back pain Right hip pain -with GI hx is limited on nsaid use -recent MRI right hip and apt w/ Dr. Valiente. Planning for PT, hip injections. Pt in severe pain at times in the mean time. Limited mobility. -Has seen neurosurgery with [facility]. Has upcoming appointment to discuss plans for surgical intervention. -Has been recommended for bilateral knee replacement and will plan to do this after his back surgery. -Requesting a refill on Kyle which he uses very occasionally for his pain. Has tried gabapentin inthe past but did not find it to be very effective. Cannot use NSAIDs due to GI history. PAST HX: GERD, h/o bleeding ulcer/Ryan's esophagus: protonix 40mg [...] to d/c the Carafate and iron. -his med asst felt the ulcer was related to his chemotherapy H/o Colon Cancer: -dx in 2020. Adenocarcinoma of cecum w/ lymphovascular invasion. S/p laproscopic R hemicolectomy in07/2020 w/ Dr. Mohamud. S/p 8 cycles of capecitabine was seeing Dr. Butterfield w/ oncology. Most recent colonoscopy in 02/2022 w/ Dr. Sagastume. H/o Kidney Stones, ED: cialis 20mg -last kidney stone 6-8 mo ago. Following diet HTN: olmesartan 20mg -stable. Well controlled. No cp, sob, edema OBJECTIVE Vitals: 09/21/22 1024 BP: 116/82 Site: Left Upper Arm Position: Sitting Pulse: 82 Temp: 98.6 ??F (37 ??C) SpO2: 97% Weight: 217 lb 9 oz (98.7 kg) Height: 5' 9 (1.753 m) Physical Exam: General: well developed, well nourished, no acute distress Musculoskeletal: Walks with a cane Skin: warm, dry, no rash Cardio: rrr, no m/g/r Respiratory: CTAB, no increased wob, no wheezing Neuro: awake, alert, AAOx3 Psych: normal mood and affect Allergies Allergen Reactions Morphine And Related Hallucinations, Itching, Nausea And Vomiting and Other (See Comments) Event: hallucinations Morphine Other reaction(s): migraines, hallucinations, itching Prior to Admission medications Medication Sig Start Date End Date Taking? Authorizing Provider HYDROcodone-acetaminophen (NORCO) 5-325 MG per tablet Take 1 tablet by mouth every 6 hours as needed for Pain for up to 7 days. Max Daily Amount: 4 tablets 09/21/22 09/28/22 Yes Felicitas Monaco MD cyclobenzaprine (FLEXERIL) 5 MG tablet Take 1 tablet by mouth 2 times daily as needed for Muscle spasms 09/21/22 10/01/22 Yes Felicitas Monaco MD atorvastatin (LIPITOR) 40 MG tablet 1 tablet Orally Once a day for 30 day(s) 08/13/22 Yes Felicitas Monaco MD pantoprazole (PROTONIX) 40 MG tablet 1 tablet Orally Once a day for 30 day(s) 08/13/22 Yes Felicitas Monaco MD empagliflozin (JARDIANCE) 25 MG tablet Orally 08/13/22 Yes Felicitas Monaco MD metFORMIN (GLUCOPHAGE) 1000 MG tablet 1 tablet with a meal Orally bid 08/13/22 Yes Felicitas Monaco MD olmesartan (BENICAR) 20 MG tablet Take 1 tablet by mouth daily 1/2 tablet daily Patient taking differently: Take 1 tablet by mouth 1/2 tablet daily 08/13/22 11/11/22 Yes Felicitas Monaco MD Ondansetron HCl (ZOFRAN PO) Take by mouth Yes Historical Provider, acetaminophen (TYLENOL) 500 MG tablet Take 1 tablet by mouth every 6 hours as needed for Pain Yes Historical Provider, aspirin 81 MG EC tablet Take 1 tablet by mouth daily Yes Historical Provider, tadalafil (CIALIS) 20 MG tablet 06/11/20 Yes Historical Provider, dulaglutide (TRULICITY) 1.5 MG/0.5ML SC injection 0.[address] [facility] Rs Automatic Reconciliation, Family History Problem Relation Age of Onset Diabetes Maternal Grandmother Social History Socioeconomic History Marital status: Spouse name: Not on file Number of children: Not on file Years of education: Not on file Highest education level: Not on file Occupational History Not on file Tobacco Use Smoking status: Former Packs/day: 1.00 Years: 27.00 Pack years: 27.00 Types: Cigarettes Start date: 05/31/1969 Quit date: 05/31/1996 Years since quittin.3 Smokeless tobacco: Never Vaping Use Vaping Use: Never used Substance and Sexual Activity Alcohol use: Yes Alcohol/week: 4.0 - 5.0 standard drinks Types: 4 - 5 Glasses of wine per week Drug use: Never Sexual activity: Not on file Other Topics Concern Not on file Social History Narrative Not on file Social Determinants of Health Financial Resource Strain: Not on file Food Insecurity: Not on file Transportation Needs: Not on file Physical Activity: Not on file Stress: Not on file Social Connections: Not on file Intimate Partner Violence: Not on file Housing Stability: Not on file Past Surgical History: Procedure Laterality Date BACK SURGERY 02/05/1986 laminectomy, discectomy CERVICAL DISCECTOMY 04/18/2007 , cervical fusion 2012 HAND CARPECTOMY Left 2021 HAND SURGERY Right 2001 debby luanr repair HEMICOLECTOMY 2020 HIP SURGERY Right 06/18/2022 INTRA ARTICULAR HIP RIGHT HIP performed by Martinez Guthrie MD at [facility] [place] PAIN MANAGEMENT JOINT REPLACEMENT Right 2011 shoulder KIDNEY STONE SURGERY 2009 basket removal KNEE ARTHROSCOPY Left 10/13/2021 multiple knee scopes right and left 1997 thru 2021 SHOULDER SURGERY Right 2010 2011 right hemiarthroplasty SUBTOTAL COLECTOMY 2019 R. Hemicolectomy UPPER GASTROINTESTINAL ENDOSCOPY 2019 Past Medical History: Diagnosis Date Cancer (HCC) 2019 Colon Chronic back pain Diabetes (HCC) DJD (degenerative joint disease) Hip pain HTN (hypertension) Hyperlipidemia Spinal stenosis ASSESSMENT/PLAN Martínez was seen today for follow-up. Diagnoses and all orders for this visit: Chronic low back pain, unspecified back pain laterality, unspecified whether sciatica present Comments: Discussed gabapentin as a possibility for pain relief. Has used previously and did not find much benefit but would be willing to try it again. Wants to discuss it with his neurosurgeon first. Refill of Kyle provided. Patient requesting Flexeril to use as needed. Has tolerated it well recently. Orders: - HYDROcodone-acetaminophen (NORCO) 5-325 MG per tablet; Take 1 tablet by mouth every 6 hours as needed for Pain for up to 7 days. Max Daily Amount: 4 tablets - cyclobenzaprine (FLEXERIL) 5 MG tablet; Take 1 tablet by mouth 2 times daily as needed for Musclespasms Type 2 diabetes mellitus without complication, without long-term current use of insulin ([facility]) Comments: Improved. Continue metformin, Jardiance Trulicbrielle Orders: - AMB POC HEMOGLOBIN A1C Patient will request the labs from the [employer] for me to review. An electronic signature was used to authenticate this note. --Felicitas Monaco MD documented in this encounter Plan of Treatment Upcoming Encounters Date Type Department Care Team (Late st Contact Info) Description 03/24/2024 9:00 AM EDT Office Visit Neurology - [address] [place] [phone] Martell Calderon MD 2144 [facility] [address] [place], [place] [phone] TREMORS/ MEDICARE, FOR LIFE 03/28/2024 8:30 AM EDT Office Visit Primary Care - [facility] [address] [place] [phone] Cheo Santoyo DO [address] [place] [address] AWV 04/06/2024 9:45 AM EST Lab [facility] - [facility] [address] [facility] [address] [place] [address] CBCMP,CEA,FEST 04/06/2024 10:15 AM EST Office Visit [facility] - [facility] [address] [facility] [address] [place] [address] Georgi Butterfield MD 3510 [facility] 17[address] [facility] 225 [place], [place] [phone] 6 MTH FU W/LABS, REV SCAN 04/13/2024 9:30 AM EST Office Visit Surgical Oncology - [facility] [address] [facility] [address] [place] [address] Delvis Cheek MD 125 [facility] 660 [place] [address] 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 06/19/2024 10:30 AM EST Office Visit Orthopaedics- Les Valencia 615 [facility] [address] [place] [phone] Karly Bautista, PA 180 [facility] 301 [place] [address] annual visit from date of surgery May/Jul 2024 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 documented as of this encounter Procedures Procedure Name Priority Date/Time Associated Diagnosis Comments AMB POC HEMOGLOBIN A1C Routine 09/21/2022 11:13 AM EDT Type 2 diabetes mellitus without complication, without long-term current use of insulin (HCC) documented in this encounter Results * AMB POC HEMOGLOBIN A1C (09/21/2022 11:13 AM EDT) Hemoglobin A1C, POC 6.7 % 09/21/2022 11:1 3 AM EDT Felicitas Monaco MD POINT OF CARE TEST ORDERABLES documented in this encounter Visit Diagnoses Diagnosis Chronic low back pain, unspecified back pain laterality, unspecified whether sciatica present- Primary Type 2 diabetes mellitus without complication, without long-term current use of insulin (HCC) documented in this encounter Care Teams Pcas Relationship Specialty Start Date End Date Felicitas Monaco MD PCP - General Family Medicine 06/18/22 07/05/23 documented as of this encounter
--- OUTSIDE RECORDS SUMMARY | 2024-01-11 22:16 | XMS_ITS | Encounter Summary ---
Author Organization Jose Alejandro [facility] Address [address] [facility] [address] Care Team Providers Care Decal Maker Name Role Phone Felicitas Monaco MD Primary Care Provider [phone] Reason for Referral * Imaging (Routine) - Closed Specialty Diagnoses / Procedures Referred By Rachid jimenez Referred To Contact Radiology Diagnoses Acquired deformity of left knee Procedures CT KNEE LEFT WO CONTRAST Bonny Mcarthur PA [address] [address] Referral ID Status Reason Start Date Expiration Date Visits Re quested Visits Authorized [id number] Closed 09/29/2022 09/29/2023 1 1 Reason for Visit * Imaging (Routine) - Closed Specialty Diagnoses / Procedures Referred By Rachid jimenez Referred To Contact Radiology Diagnoses Acquired deformity of left knee Procedures CT KNEE LEFT WO CONTRAST Bonny Mcarthur PA [address] [address] Referral ID Status Reason Start Date Expiration Date Visits Re quested Visits Authorized [id number] Closed 09/29/2022 09/29/2023 1 1 Encounter Details Date Type Department Care Team (Latest Contact Info) Description 11/12/2022 11:38 AM EDT - 11/12/2022 11:59 PM EDT Hospital Encounter [facility] [address] [address] Acquired deformity of left knee Discharge Disposition: Home or Self Care Social [...] Date oxyCODONE (ROXICODONE) 5 MG immediate release tabletIndications:Prima ry osteoarthritis of left knee Take 1 tablet by mouth every 4 hours as needed for Pain for up to 5 days. Max Daily Amount: 30 mg 30 tablet 12/21/2022 12/26/2022 aspirin 81 MG EC tabletIndications:Deep Vein Thrombosis Prophylaxis Take 1 tablet by [...] in the evening. 180 tablet 12/21/2022 03/17/2023 atorvastatin (LIPITOR) 40 MG tablet 1 tablet [...] every 8 hours as needed prn 07/06/2023 acetaminophen (TYLENOL) 500 MG tablet Take 1 tablet by mouth every 6 hours as needed for Pain 12/21/2022 aspirin 81 MG EC tablet Take 1 tablet by mouth daily 12/21/2022 tadalafil (CIALIS) 20 MG tablet Take 1 tablet by mouth as needed for Erectile Dysfunction 06/11/2020 07/06/2023 dulaglutide (TRULICITY) 1.5 MG/0.5ML SC injection 0.5 mLs 12/07/2022 documented as of this encounter Plan of Treatment Upcoming Encounters Date Type Department Care Team (Late st Contact Info) Description 03/24/2024 9:00 AM EDT Office Visit Neurology - [facility] [address] [facility] [address] [place] [address] Martell Calderon MD 2144 [facility] [address] [place] [address] TREMORS/ MEDICARE, FOR LIFE 03/28/2024 8:30 AM EDT Office Visit Primary Care - [address] [address] [place] [address] [place] [address] AWV 04/06/2024 9:45 AM EST Lab [place] [facility] - [facility] [place] 2084 [facility] [address] [place] [address] CBCMP,CEA,FEST 04/06/2024 10:15 AM EST Office Visit [facility] - [facility] [place] 2084 [facility] [address] [place] [address] Georgi Butterfield MD [address] [place] [address] 6 MTH FU W/LABS, REV SCAN 04/13/2024 9:30 AM EST Office Visit Surgical Oncology - [facility] 6[address] [facility] [address] [place] [address] Delvis Cheek MD 125 [facility] [address] [place] [phone] 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 06/19/2024 10:30 AM EST Office Visit Orthopaedics- Les Valencia 615 [facility] [address] [place] [address] Karly Bautista, BURT [address] [place] [address] annual visit from date of surgery May/Jul 2024 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 documented as of this encounter Procedures Procedure Name Priority Date/Time Associated Diagnosis Comments CT KNEE LEFT WO CONTRAST Routine 11/12/2022 12:07 PM EDT Acquired deformity of left knee documented in this encounter Results * CT KNEE LEFT WO CONTRAST (11/12/2022 12:07 PM EDT) Anatomical Region Laterality Modality Thigh, Knee, Leg Computed Tomogr aphy 11/12/2022 3:06 PM EDT Impressions 11/12/2022 3:06 PM EDT Impression: CT imaging of the LEFT hip, knee, ankle for intraoperative navigation. If you have questions regarding this report, please feel free to call me directly using [email or web address]. This note was created using voice recognition software and may contain typographic errors missed during final review. The intent is to have a complete and accurate medical record. ?As a valued partner in this safety effort, if you have noted factual errors, please complete the Health Information Amendment/Correct Form or call the [facility] Health Information Management Office at [phone]. Narrative 11/12/2022 3:06 PM EDT Indication: eval joint deformity for surgical planning - [place] Hugo protocol M21.962,Unspecified acquired deformity of left lower leg,ICD-10-CM Date of exam: 11/12/22 Technical: CT of the LEFT knee without contrast. Noncontrast axial CT images were obtained of the hip, knee, and ankle for surgical planning. CT scanning was performed using radiation dose reduction techniques when appropriate, per system protocols. Findings: Osteophytic degenerative changes at the knee. Procedure Note Kd Dang MD - 11/12/2022 Indication: eval joint deformity for surgical planning - [place] Diomedesoprotocol M21.962,Unspecified acquired deformity of left lower leg,ICD-10-CM Date of exam: 11/12/22 Technical: CT of the LEFT knee without contrast. Noncontrast axial CTimages were obtained of the hip, knee, and ankle for surgical planning. CTscanning was performed using radiation dose reduction techniques when appropriate, per system protocols. Findings: Osteophytic degenerative changes at the knee. IMPRESSION: Impression: CT imaging of the LEFT hip, knee, ankle for intraoperative navigation. If you have questions regarding this report, please feel free to call me directly using [email or web address]. This note was created using voice recognition software and may contain typographic errors missed during final review. The intent is to have acomplete and accurate medical record. ?As a valued partner in this safety effort,if you have noted factual errors, please complete the Health Information Amendment/Correct Form or call the [facility] Health Information ManagementOffice at [phone]. Bonny DALLAS G CT ORDERABLES documented in this encounter Visit Diagnoses Diagnosis Acquired deformity of left knee documented in this encounter Care Teams Decal Maker Relationship Specialty Start Date End Date Felicitas Monaco MD PCP - General Family Medicine 06/18/22 07/05/23 documented as of this encounter
--- OUTSIDE RECORDS SUMMARY | 2024-01-11 22:16 | XMS_ITS | Encounter Summary ---
Author Organization [facility] Kit [facility] Address [address] [place] [address] Care Team Providers Care Electric Clock Mechanic Name Role Phone Felicitas Monaco MD Primary Care Provider [phone] Reason for Visit * Reason Onset Date Comments Medication Refill 08/12/2022 Encounter Details Date Type Department Care Team (Late Contact Info) Description 08/12/2022 Refill Primary Care - [address] [place] [address] Felicitas Monaco MD [address] [place] [address] Medication Refill Social History Tobacco [...] Dr. [address] [place] [address] Martell Calderon MD 2144 [facility] [address] [place] [address] TREMORS/ MEDICARE, FOR LIFE 03/28/2024 8:30 AM EDT Office Visit Primary Care - [address] [phone] Cheo Santoyo, DO [address] [place] [address] AWV 04/06/2024 9:45 AM EST Lab [facility] - [facility] 2084 [facility] [address] [place] [address] CBCMP,CEA,FEST 04/06/2024 10:15 AM EST Office Visit [facility] - [facility] 2084 [facility] [address] [place] [address] Georgi Butterfield MD [address] [place], [place] [phone] 6 MTH FU W/LABS, REV SCAN 04/13/2024 9:30 AM EST Office Visit Surgical Oncology - [facility] 2084 [facility] [address] [place] [address] Delvis Cheek MD 125 [facility] 660 [place] [address] 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 06/19/2024 10:30 AM EST Office Visit Orthopaedics- eLs Valencia [address] [facility] [address] [place] [phone] Karly Bautista, BURT [address] [place] [address] annual visit from date of surgery May/Jul 2024 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 documented as of this encounter Visit Diagnoses Not on filedocumented in this encounter Care Teams Electric Clock Mechanic Relationship Specialty Start Date End Date Felicitas Monaco MD PCP - General Family Medicine 06/18/22 07/05/23 documented as of this encounter
--- OUTSIDE RECORDS SUMMARY | 2024-01-11 22:16 | XMS_ITS | Encounter Summary ---
Author Organization Jose Alejandro Kit [facility] Address [address] [place] [address] Care Team Providers Care Truss Maker Name Role Phone Felicitas Monaco MD Primary Care Provider [phone] Reason for Visit * Reason Onset Date Comments Call Patient 09/29/2022 Encounter Details Date Type Department Care Team (Late Contact Info) Description 09/29/2022 Telephone Orthopaedics - [address] [place] [address], [address] [place] [address] Georgi Andersen PA [address] [facility] 200 [place] [address] Call Patient Social History Tobacco Use Types [...] Office Visit Neurology - Maryan Jacobsen Dr[address] [place] [address] Martell Calderon MD 214 [facility] [address] [place] [address] TREMORS/ MEDICARE, FOR LIFE 03/28/2024 8:30 AM EDT Office Visit Primary Care - [address] [phone] Cheo Santoyo, DO [address] [place] [address] AWV 04/06/2024 9:45 AM EST Lab [facility] - [facility] 2084 [facility] [address] [place] [address] CBCMP,CEA,FEST 04/06/2024 10:15 AM EST Office Visit [facility] - [facility] 2084 [facility] [address] [place] [address] Georgi Butterfield MD [address] [place], [place] [phone] 6 MTH FU W/LABS, REV SCAN 04/13/2024 9:30 AM EST Office Visit Surgical Oncology - [facility] 2084 [facility] [address] [place] [address] Delvis Cheek MD 125 [facility] 660 [place] [address] 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 06/19/2024 10:30 AM EST Office Visit Orthopaedics- Les Valencia [address] [facility] [address] [place] [address] Karly Bautista, BURT [address] [place] [address] annual visit from date of surgery May/Jul 2024 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 documented as of this encounter Visit Diagnoses Not on filedocumented in this encounter Care Teams Truss Maker Relationship Specialty Start Date End Date Felicitas Monaco MD PCP - General Family Medicine 06/18/22 07/05/23 documented as of this encounter
--- OUTSIDE RECORDS SUMMARY | 2024-01-11 22:16 | XMS_ITS | Encounter Summary ---
Author Organization Jose Alejandro Kit [facility] Address [address] [place] [address] Care Team Providers Care Communications Department Chair Name Role Phone Felicitas Monaco MD Primary Care Provider [phone] Reason for Visit * Reason Onset Date Comments Cancelled Appointment 07/27/2022 Encounter Details Date Type Department Care Team ([facility] Contact Info) Description 07/27/2022 [facility]phone [facility]. [address] [facility] [address] [place] [address] Georgi Butterfield MD [address] [place] [address] Cancelled Appointment Social History Tobacco Use Types Packs/Day Years [...] 9:00 AM EDT Office Visit Neurology - [facility] [place] 2144 [facility] [address] [place] [address] Martell Calderon MD 2144 [facility] [address] [place] [address] TREMORS/ MEDICARE, FOR LIFE 03/28/2024 8:30 AM EDT Office Visit Primary Care - [facility] [address] [place] [phone] Cheo Santoyo DO [address] [place] [address] AWV 04/06/2024 9:45 AM EST Lab [facility] - [facility] [place] 2084 [facility] [address] [place] [address] CBCMP,CEA,FEST 04/06/2024 10:15 AM EST Office Visit [facility] - [facility] [place] 2084 [facility] [address] [place] [address] Georgi Butterfield MD 3510 [facility] [address] [place] [address] 6 MTH FU W/LABS, REV SCAN 04/13/2024 9:30 AM EST Office Visit Surgical Oncology - [facility] [place] 2084 [facility] [address] [place] [address] Delvis Cheek MD 125 [facility] [address] [place] [address] 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 06/19/2024 10:30 AM EST Office Visit Orthopaedics- Adalberto Valencia 615 [facility] [address] [place] [address] Karly Bautista, BURT 180 [facility] [address] [place] [address] annual visit from date of surgery May/Jul 2024 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 documented as of this encounter Visit Diagnoses Not on filedocumented in this encounter Care Teams Communications Department Chair Relationship Specialty Start Date End Date Felicitas Monaco MD PCP - General Family Medicine 06/18/22 07/05/23 documented as of this encounter
--- OUTSIDE RECORDS SUMMARY | 2024-01-11 22:16 | XMS_ITS | Encounter Summary ---
Author Organization [facility] Kit [facility] Address [address] [place] [address] Care Team Providers Care Radio News Writer Name Role Phone Felicitas Monaco MD Primary Care Provider [phone] Encounter Details Date Type Department Care Team (Late st Contact Info) Description 08/31/2022 Orders Only [facility] - [facility]. 8950 [facility] [address] [place] [address] Georgi Butterfield MD [address] [place] [address] Iron deficiency anemia, unspecified iron deficiency anemia type (Primary Dx) Social History Tobacco Use Types [...] Office Visit Neurology - [facility] 214 [facility] [address] [place] [address] Martell Calderon MD [address] [facility] [address] [place], [place] [address] TREMORS/ MEDICARE, FOR LIFE 03/28/2024 8:30 AM EDT Office Visit Primary Care - [facility] 1112 [place] [phone] Cheo Santoyo, 1112 [place] [address] AWV 04/06/2024 9:45 AM EST Lab [facility] - [facility] 2084 [facility] [address] [place] [address] CBCMP,CEA,FEST 04/06/2024 10:15 AM EST Office Visit [facility] - [facility] 2084 [facility] [address] [place] [address] Georgi Butterfield MD [address] [place], [place] [phone] 6 MTH FU W/LABS, REV SCAN 04/13/2024 9:30 AM EST Office Visit Surgical Oncology - [facility] 2084 [facility] [address] [place] [address] Delvis Cheek MD 125 [facility] 660 [place] [address] 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 06/19/2024 10:30 AM EST Office Visit Orthopaedics- Adalberto Valencia [address] [facility] [facility] 100 [place] [address] Karly Bautista PA [address] [place] [address] annual visit from date of surgery May/Jul 2024 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 documented as of this encounter Results * Reticulocytes (10/05/2022 10:02 AM EDT) RBC 5.18 4.00 - 5.60 x10e6/mcL [facility] Retic Ct Pct 1.7 0.5 - 2.0 % [facility] Retic Ct Abs 0.0865 0.0235 - 0.1220 /mcL [facility] Comment: Test Performed at: [facility] [address] [place] [address] [place] [address] Blood BLOOD SPECIMEN / Unknown 10/05/2022 10:02 AM EDT 10/05/2022 9:25 PM EDT Georgi Butterfield MD HEMATOLOGY ORDERABL ES Performing Organization Address [facility] de Phone Number [facility] [address] [place] [address] * Ferritin (10/05/2022 10:02 AM EDT) Pathologist [facility] Ferritin 244.4 30.0 - 400.0 ng/mL [facility] Comment: Test Performed at: [facility] [address] [place] [address] Blood BLOOD SPECIMEN / Unknown 10/05/2022 10:02 AM EDT 10/05/2022 9:25 PM EDT Georgi Butterfield MD CHEMISTRY ORDERABLE S Performing Organization Address [facility] Co de Phone Number [facility] [address] [place] [address] * Iron and TIBC (10/05/2022 10:02 AM EDT) Pathologist [facility] Iron 119 59 - 158 mcg/dL [facility] UIBC 186.3 112.0 - 347.0 mcg/dL [facility] TIBC 306 250 - 450 mcg/dL [facility] Iron % Saturation 39 20 - 40 % [facility] Comment: Test Performed at: [facility] [address] [place] [address] Serum BLOOD SPECIMEN / Unknown 10/05/2022 10:02 AM EDT 10/05/2022 9:25 PM EDT Narrative [facility] - 10/05/2022 9:39 PM EDT Is Patient Fasting?->no No of Hours?->no Georgi Butterfield MD CHEMISTRY ORDERABLE S Performing Organization Address [facility] de Phone Number [facility] [address] [place] [address] * Soluble transferrin receptor (10/05/2022 10:02 AM EDT) [facility] Soluble Transferrin Recept 16.5 12.2 - 27.3 nmol/L [facility] Comment: Performed At: [facility] [address] [id number] Ajit Swift MD Ph:[phone] Test Performed at: [facility] [address] [place] [address] [place] [address] Blood BLOOD SPECIMEN / Unknown 10/05/2022 10:02 AM EDT 10/05/2022 9:25 PM EDT Georgi Butterfield MD HEMATOLOGY ORDERABL ES Performing Organization Address [facility] de Phone Number [facility] [address] [place] [address] * CBC with Auto Differential (10/05/2022 10:02 AM EDT) [facility] WBC 5.9 4.1 - 10.9 K/uL [facility] [...] - 440 K/uL [facility] MPV 7.7 0.0 - 49.9 fL [facility] Whole Blood BLOOD SPECIMEN / Unknown 10/05/2022 10:02 AM EDT 10/05/2022 10:02 AM EDT Narrative [facility] - 10/05/2022 10:11 AM EDT Testing Location: [facility] Hematology and Oncology, [address] [place] [address], Georgi Butterfield MD HEMATOLOGY ORDERABL ES [facility] & ONCOLOGY [address] [address] documented in this encounter Visit Diagnoses Diagnosis Iron deficiency anemia, unspecified iron deficiency anemia type- Primary Carcinoma of ascending colon (HCC)- Primary Malignant neoplasm of ascending colon Iron deficiency anemia, unspecified iron deficiency anemia type Adenocarcinoma of cecum (HCC) Malignant neoplasm of intestine (HCC) Malignant neoplasm of intestinal tract, part unspecified documented in this encounter Care Teams Radio News Writer Relationship Specialty Start Date End Date Felicitas Monaco MD PCP - General Family Medicine 06/18/22 07/05/23 documented as of this encounter
--- OUTSIDE RECORDS SUMMARY | 2024-01-11 22:16 | XMS_ITS | Encounter Summary ---
Author Organization Jose Alejandro Kit [facility] Address [address] [place] [address] Care Team Providers Care Watch Band Assembler Name Role Phone Felicitas Monaco MD Primary Care Provider [phone] Encounter Details Date Type Department Care Team (Late st Contact Info) Description 11/30/2022 Orders Only Orthopaedics - [place] [address] [address] [place] [address] Maurice Panchal MD [address] [address] Social History Tobacco Use Types Packs/Day Years [...] Dr. [address] [place] [phone] Martell Calderon MD [address] [place] [address] TREMORS/ MEDICARE, FOR LIFE 03/28/2024 8:30 AM EDT Office Visit Primary Care - [address] [address] Cheo Santoyo DO 1112 [place] [address] AWV 04/06/2024 9:45 AM EST Lab [place] [facility] - [facility] 2084 [facility] [place] [address] [place] [address] CBCMP,CEA,FEST 04/06/2024 10:15 AM EST Office Visit [facility] - [facility] 2084 [facility] [place] [address] [place] [address] Georgi Butterfield MD 3510 [facility] [address] [place], [place] [phone] 6 MTH FU W/LABS, REV SCAN 04/13/2024 9:30 AM EST Office Visit Surgical Oncology - [facility] 2084 [facility] [place] [address] [place] [address] Delvis Cheek MD 125 [facility] 660 [place] [address] 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 06/19/2024 10:30 AM EST Office Visit Orthopaedics- Les Valencia [address] [facility] [address] [place] [address] Karly Bautista PA [address] [place] [address] annual visit from date of surgery May/Jul 2024 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 documented as of this encounter Visit Diagnoses Not on filedocumented in this encounter Care Teams Watch Band Assembler Relationship Specialty Start Date End Date Felicitas Monaco MD PCP - General Family Medicine 06/18/22 07/05/23 documented as of this encounter
--- OUTSIDE RECORDS SUMMARY | 2024-01-11 22:16 | XMS_ITS | Encounter Summary ---
Author Organization Jose Alejandro Kit [facility] Address [address] [place] [address] Care Team Providers Care Senior Quality Assurance Engineer Name Role Phone Felicitas Monaco MD Primary Care Provider [phone] Reason for Referral * Surgical (Routine) - Closed Specialty Diagnoses / Procedures Referred By Rachid jimenez Referred To Contact Orthopedic Surgery Diagnoses Primary osteoarthritis of left knee Procedures OR ARTHRP KNE CONDYLE&PLATU MEDIAL&LAT COMPARTMENTS Maurice Panchal MD [address] [place] [address] Maurice Panchal MD [address] [place] [address] Referral ID Status Reason Start Date Expiration Date V isits Requested Visits Authorized [id number] Closed Insurance 09/29/2022 09/29/2023 1 1 [place] [id number] M17.11 DATE [facility] Maurice Panchal MD, Orthopaedics [facility] [address] [address] Comments The patient can be scheduled with any member of the group, including the provider with the first available appointments. * Imaging (Routine) - Closed Specialty Diagnoses / Procedures Referred By Rachid jimenez Referred To Contact Radiology Diagnoses Acquired deformity of left knee Procedures CT KNEE LEFT WO CONTRAST Bonny Mcarthur PA [address] [place] [address] Referral ID Status Reason Start Date Expiration Date Visits Re quested Visits Authorized [id number] Closed 09/29/2022 09/29/2023 1 1 Reason for Visit * Reason Onset Date Comments Surgery Scheduling 09/28/2022 Encounter Details Date Type Department Care Team ([facility] Contact Info) Description 09/28/2022 Telephone Orthopaedics - Vijaya Guerra Dr. [address] [facility] [address] [address] [place] [phone] Bonny Mcarthur PA [address] [facility] [address] [place] [address] Surgery Scheduling Social History Tobacco Use Types [...] Upcoming Encounters Date Type Department Care Team ([facility] Contact Info) Description 03/24/2024 9:00 AM EDT Office Visit Neurology - Maryan Jacobsen Dr. [address] [place] [address] Martell Calderon MD [address] [facility] [address] [place] [address] TREMORS/ MEDICARE, FOR LIFE 03/28/2024 8:30 AM EDT Office Visit Primary Care - [address] [phone] Cheo Santoyo DO [address] [place] [address] AWV 04/06/2024 9:45 AM EST Lab [place] [facility] - [facility] 2084 [facility] [address] [place] [phone] CBCMP,CEA,FEST 04/06/2024 10:15 AM EST Office Visit [place] [facility] - [facility] 2084 [facility] [address] [place] [address] Georgi Butterfield MD [address] [place] [address] 6 MTH FU W/LABS, REV SCAN 04/13/2024 9:30 AM EST Office Visit Surgical Oncology - [facility] 2084 [facility] [address] [place] [address] Delvis Cheek MD 125 [facility] 660 [place] [phone] 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 06/19/2024 10:30 AM EST Office Visit Orthopaedics- Les Valencia 615 [facility] [address] [place] [address] Karly Bautista, BURT 180 [facility] [address] [place] [address] annual visit from date of surgery May/Jul 2024 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 Scheduled Orders Name Type Priority Associated Diagnoses Orde r Schedule CBC Lab Routine Preoperative testing Expected: 09/29/2022, Expires: 09/30/2023 Comprehensive Metabolic Panel Lab Routine Preoperative testing Expected: 09/29/2022, Expires: 09/30/2023 Case Request Procedures Routine Ordered: 07/2022 Scheduled Referrals Name Type Priority Associated Diagnoses Orde r Schedule Ambulatory referral to Orthopedic Surgery Outpatient Referral Routine Primary osteoarthritis of left knee Ordered: 09/29/2022 documented as of this encounter Results * CT KNEE LEFT WO CONTRAST (11/12/2022 12:07 PM EDT) Anatomical Region Laterality Modality Thigh, Knee, Leg Computed Tomogr aphy 11/12/2022 3:06 PM EDT Impressions 11/12/2022 3:06 PM EDT Impression: CT imaging of the LEFT hip, knee, ankle for intraoperative navigation. If you have questions regarding this report, please feel free to call me directly using Leixir. This note was created using voice recognition software and may contain typographic errors missed during final review. The intent is to have a complete and accurate medical record. ?As a valued partner in this safety effort, if you have noted factual errors, please complete the Health Information Amendment/Correct Form or call the [facility] Health Information Management Office at [phone]. Narrative 11/12/2022 3:06 PM EDT Indication: eval joint deformity for surgical planning - Daax Hugo protocol M21.962,Unspecified acquired deformity of left [...] eval joint deformity for surgical planning - Daxa Makoprotocol M21.962,Unspecified acquired deformity of left lower leg,ICD-10-CM [...] feel free to call me directly using Leixir. This note was created using voice recognition software and may contain typographic errors missed during final review. The intent is to have acomplete and accurate medical record. ?As a valued partner in this safety effort,if you have noted factual errors, please complete the Health Information Amendment/Correct Form or call the [facility] Health Information ManagementOffice at [phone]. Bonny D[place] IMG CT ORDERABLES documented in this encounter Visit Diagnoses Diagnosis Preoperative testing- Primary Preoperative examination, unspecified Acquired deformity of left knee Primary osteoarthritis of left knee Primary localized osteoarthrosis, lower leg Acquired deformity of left knee documented in this encounter Care Teams Senior Quality Assurance Engineer Relationship Specialty Start Date End Date Felicitas Monaco MD PCP - General Family Medicine 06/18/22 07/05/23 documented as of this encounter
--- OUTSIDE RECORDS SUMMARY | 2024-01-11 22:16 | XMS_ITS | Encounter Summary ---
Author Organization Jose Alejandro Kit [facility] Address [address] [place] [address] Care Team Providers Care Statistics Intern Name Role Phone Felicitas Monaco MD Primary Care Provider [phone] Reason for Visit * Reason Comments Knee Pain Lt knee Encounter Details Date Type Department Care Team (Latest Contact Info) Description 11/12/2022 10:30 AM EDT Office Visit Orthopaedics - [address] [phone] Bonny Mcarthur PA [facility] [address] [address] Bilateral primary osteoarthritis of knee (Primary Dx) Social History Tobacco Use [...] Progress Notes * Bonny Mcarthur PA - 11/12/2022 10:30 AM EDT Images from the original note were not included. Date: 11/12/2022 Patient Name: Martínez Carrizalesy : 1955 Primary Care Physician: Felicitas Monaco MD Reason for Visit: Bilateral knee pain History of Present Illness: Dr. Panchal and I had the pleasure of seeing the patient in orthopedic clinic today. Patient is here to be evaluated prior to proceeding with left total knee arthroplasty. Patient was previously seen in July by myself and found to have end-stage osteoarthritis of both the left and right knee. Those office records were once again reviewed. Patient is 67 y.o. male complaining of bilateral knee pain, left greater than right . He describes his pain as moderate pain and severe pain in addition to stiffness and instability. He states his symptoms have persisted since 1995 . He has beenstruggling with activities of daily living as a result of his symptoms including walking short distances less than a 1/4 mile or 2 city blocks, exercises, getting dressed, and stairs. Patient admits to a fear of falling. He has made attempts at conservative treatment options including weight loss, physical therapy, the use of a brace, cane, medications, and multiple knee scopes. Patient would like to now discuss definitive treatment for their complaints. Patient's medications, allergies, past medical, surgical, social and family histories were reviewedand updated as appropriate. Review of Systems: The positives are knee pain, hypertension, diabetes, colon cancer, low back pain Physical Examination: Estimated body mass index is 32.27 kg/m?? as calculated from the following: Height as of 10/20/22: 5' 9 (1.753 m). Weight as of 10/20/22: 218 lb 8 oz (99.1 kg). GENERAL APPEARANCE: normal PSYCH: alert, oriented, [...] extensor mechanism intact ROM: Painful ROM extension: 15 degree flexion contracture ROM flexion: 120 degrees Stability: Normal Strength and Tone: Normal Xray Result (most recent): XR KNEE LEFT (MIN 4 VIEWS) 08/20/2022 Narrative X-rays of the left knee were available for review on the PACS system today. X- rays show severe osteoarthritis with near vyse-eo-llag appearance of the medial compartment with significant narrowing resulting in mild varus malalignment. Osteophytes are appreciated on the medial femoral condyle. Lateral view does show a loose body in the posterior capsule. MRI report of the left knee was once again reviewed from October 02, 2021. MRI reveals tricompartmental chondromalacia with areas of cartilage loss within the medial compartment and a ruptured Cornejo's cyst. XR knee right (MIN 4 VIEWS) 08/20/2022 Narrative X-rays of the right knee were available for review on the PACS system today. X- rays show end-stage osteoarthritis with near complete loss of medial joint space with significant narrowing causing mildvarus malalignment. Osteophytes are appreciated on the medial femoral condyle. Loose body is noted on lateral view of the posterior capsule Assessment: ICD-10-CM 1. Bilateral primary osteoarthritis of knee M17.0 Plan: Left total knee arthroplasty using [employer] robotic-assisted technology Patient may proceed with right total knee arthoplasty after successful recovery from left total knee replacement Patient will require walker and/or cane following [...] to go home the day of surgery. Hespends 4-5 months out of the year in [place] and [facility] to [facility] Follow Up: 4 weeks after scheduled surgery, sooner if needed documented in this encounter Plan of Treatment Upcoming Encounters Date Type Department Care Team (Late st Contact Info) Description 03/24/2024 9:00 AM EDT [facility] [address] [facility] [address] [place] [phone] Martell Calderon MD [address] [facility] [address] [place], [place] [id number] TREMORS/ MEDICARE, FOR LIFE 03/28/2024 8:30 AM EDT Office Visit Primary Care - [address] [phone] Cheo Santoyo, [address] [address] AWV 04/06/2024 9:45 AM EST Lab [facility] [address] [facility] [address] [place] [address] CBCMP,CEA,FEST 04/06/2024 10:15 AM EST Office Visit [place] [facility] [address] [facility] [address] [place] [address] Georgi Butterfield MD [address] [place] [address] 6 MTH FU W/LABS, REV SCAN 04/13/2024 9:30 AM EST Office Visit Surgical Oncology - [facility] [place] [address] [facility] [address] [place] [phone] Delvis Cheek MD 125 [facility] 660 [place] [phone] 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 06/19/2024 10:30 AM EST Office Visit Orthopaedics- Les Valencia [address] [facility] [address] [place] [phone] Karly Bautista, PA 180 [facility] 301 [place] [address] annual visit from date of surgery May/Jul 2024 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 documented as of this encounter Visit Diagnoses Diagnosis Bilateral primary osteoarthritis of knee- Primary documented in this encounter Care Teams Statistics Intern Relationship Specialty Start Date End Date Felicitas Monaco MD PCP - General Family Medicine 06/18/22 07/05/23 documented as of this encounter
--- OUTSIDE RECORDS SUMMARY | 2024-01-11 22:16 | XMS_ITS | Encounter Summary ---
Author Organization Jose Alejandro Kit [facility] Address [address] [place] [address] Care Team Providers Care Computer Project Manager Name Role Phone Felicitas Monaco MD Primary Care Provider [phone] Reason for Visit * Reason Onset Date Comments Other 10/07/2022 SURGERY CLEARANC E FORM Encounter Details Date Type Department Care Team (Late Contact Info) Description 10/07/2022 Telephone Orthopaedics - [facility] [employer] [address] [facility] [address] [place] [phone] Maurice Panchal MD 3510 [facility] 17 [facility] 105 [place] [address] Other (SURGERY CLEARANCE FORM) Social History Tobacco Use Types Packs/Day Years [...] Dr. [address] [place] [phone] Martell Calderon MD [address] [facility] [address] [place] [address] TREMORS/ MEDICARE, FOR LIFE 03/28/2024 8:30 AM EDT Office Visit Primary Care - [facility] [address] [place] [phone] Cheo Santoyo, DO [address] [place] [address] AWV 04/06/2024 9:45 AM EST Lab [place] [facility] - [facility] [address] [facility] [address] [place] [phone] CBCMP,CEA,FEST 04/06/2024 10:15 AM EST Office Visit [place] - [facility] [address] [facility] [address] [place] [phone] Georgi Butterfield MD [address] [place] [address] 6 MTH FU W/LABS, REV SCAN 04/13/2024 9:30 AM EST Office Visit Surgical Oncology - [facility] [address] [facility] [address] [place] [address] Delvis Cheek MD 125 [facility] 660 [place] [phone] 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 06/19/2024 10:30 AM EST Office Visit Orthopaedics- Les Valencia [address] [facility] [facility] [address] [place] [phone] Karly Bautista PA [address] [place] [address] annual visit from date of surgery May/Jul 2024 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 documented as of this encounter Visit Diagnoses Not on filedocumented in this encounter Care Teams Computer Project Manager Relationship Specialty Start Date End Date Felicitas Monaco MD PCP - General Family Medicine 06/18/22 07/05/23 documented as of this encounter
--- OUTSIDE RECORDS SUMMARY | 2024-01-11 22:16 | XMS_ITS | Encounter Summary ---
Author Organization Jose Alejandro Kit [facility] Address [address] [place] [address] Care Team Providers Care Staining Machine Operator Name Role Phone Felicitas Monaco MD Primary Care Provider [phone] Reason for Visit * Reason Comments Injections Right knee Supartz i njection #2 of 3, BUY & BILL Encounter Details Date Type Department Care Team (Late st Contact Info) Description 10/20/2022 8:45 AM EDT Office Visit Orthopaedics - [address] [place] [phone] Georgi Andersen PA [address] [place] [address] Primary osteoarthritis of right knee (Primary Dx) [...] Weight 99.1 kg (218 lb 8 oz) 10/20/2022 8:39 AM EDT Height 175.3 cm (5' 9) 10/20/2022 8:39 AM EDT Body Mass Index 32.27 10/20/2022 8:39 AM EDT documented in this encounter Progress Notes * Georgi Andersen PA - 10/20/2022 8:45 AM EDT Patient presents for visco supplementation injection CC: Chief Complaint Patient presents with Injections Right knee Supartz injection #2 of 3, BUY & BILL HPI: Patient presents for visco supplementation injection into the involved knee Assessment: 1. Primary osteoarthritis of right knee Treatment Plan: Viscosupplementation injection right knee. Procedures: Side: Right Injection: Supartz Injection Number: 2nd We discussed the patient the risks, benefits, [...] Neurology - [address] [facility] [address] [place] [phone] Martell Calderon MD 2144 [facility] [address] [place], [place] [phone] TREMORS/ MEDICARE, FOR LIFE 03/28/2024 8:30 AM EDT Office Visit Primary Care - [facility] [address] [place] [phone] Cheo Santoyo DO [facility]2 [place] [phone] AWV 04/06/2024 9:45 AM EST [facility] [place] [facility] - [facility] [address] [facility] [address] [place] [phone] CBCMP,CEA,FEST 04/06/2024 10:15 AM EST Office Visit [place] [facility] - [facility] [address] [facility] [address] [place] [phone] Georgi Butterfield MD 3510 [facility] [address] [place] [address] 6 MTH FU W/LABS, REV SCAN 04/13/2024 9:30 AM EST Office Visit Surgical Oncology - [facility] [address] [facility] [address] [place] [address] Delvis Cheek MD 125 [facility] 660 [place] [address] 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 [address] [place] [address] Karly Bautista PA [address] [place] [address] annual visit from date of [...] Right documented in this encounter Care Teams Staining Machine Operator Relationship Specialty Start Date End Date Felicitas Monaco MD PCP - General Family Medicine 06/18/22 07/05/23 documented as of this encounter
--- OUTSIDE RECORDS SUMMARY | 2024-01-11 22:16 | XMS_ITS | Encounter Summary ---
Author Organization [facility] Kit [facility] Address [address] [place] [address] Care Team Providers Care Candy Rolling Machine Operator Name Role Phone Felicitas Monaco MD Primary Care Provider [phone] Reason for Visit * Reason Onset Date Comments Medication Refill 08/13/2022 Encounter Details Date Type Department Care Team (Late Contact Info) Description 08/13/2022 Refill Primary Care - [address] [place] [address] Felicitas Monaco MD [address] [place] [address] Medication Refill Social History Tobacco [...] Dr. [address] [place] [address] Martell Calderon MD 2144 [facility] [address] [place] [address] TREMORS/ MEDICARE, FOR LIFE 03/28/2024 8:30 AM EDT Office Visit Primary Care - [address] [phone] Cheo Santoyo, DO [address] [place] [address] AWV 04/06/2024 9:45 AM EST Lab [place] [facility] - [facility] [address] [facility] [address] [place] [address] CBCMP,CEA,FEST 04/06/2024 10:15 AM EST Office Visit [place] [facility] - [facility] [address] [facility] [address] [place] [address] Georgi Butterfield MD [address] [place], [place] [phone] 6 MTH FU W/LABS, REV SCAN 04/13/2024 9:30 AM EST Office Visit Surgical Oncology - [facility] [address] [facility] [address] [place] [address] Delvis Cheek MD 125 [facility] 660 [place] [phone] 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 [address] [place] [phone] Karly Bautista, BURT [address] [place] [address] annual visit from date of surgery May/Jul 2024 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 documented as of this encounter Visit Diagnoses Not on filedocumented in this encounter Care Teams Candy Rolling Machine Operator Relationship Specialty Start Date End Date Felicitas Monaco MD PCP - General Family Medicine 06/18/22 07/05/23 documented as of this encounter
--- OUTSIDE RECORDS SUMMARY | 2024-01-11 22:17 | XMS_ITS | Encounter Summary ---
Author Organization Jose Alejandro Kit [facility] Address [address] [place] [address] Care Team Providers Care Set Designer Name Role Phone Felicitas Monaco MD Primary Care Provider [phone] Reason for Visit * Reason Comments Back Pain Left side lower back ; mild sciatic pains-radiates down to the left gluteal region. Encounter Details Date Type Department Care Team (Latest Contact Info) Description 07/27/2022 2:30 PM EST Office Visit Physical Medicine & Rehabilitation - [address] [place] [address] Willa Sandhu, GRAIN WEIGHER - LENS INSERTER [address] [place] [address] Spinal stenosis of lumbar region with neurogenic claudication (Primary Dx); Sacroiliitis (HCC) Social History Tobacco Use Types [...] AM EST documented as of this encounter Progress Notes * Willa Sandhu, GRAIN WEIGHER - LENS INSERTER - 07/27/2022 2:30 PM EST LING 01/22/2020,RE:Pt currently feels his pain is under control. He understands he can call for a referral for additional injection if needed. He will return as needed. Pain level today? 5/10; average 2-03/09 Neurosurgery Consult Note Martínez Toribio 1955 07/27/2022 CC: back pain HPI: 67-year-old white male with a past medical history of colon cancer, diabetes, hypertension andhyperlipidemia presents to spine intake clinic with a 9-day history of pain to the left low back radiating to the left buttocks. Onset of symptoms while working in the yard lifting heavy stones. Rates the pain 5/10. Symptoms are provoked getting in and out of car, rolling over in bed, putting on pants and shoes as well as upon standing prolonged sitting. He has taken Tylenol with mild relief. Denies radicular symptoms. Denies pain going down the leg, numbness, tingling and weakness. Has bladder/bowel incontinence. He has a history of 2 lumbar surgeries, has hardware. He has not undergone x-rays. He hears a popping sound at times and particularly stepping out of the shower. Seen by primary care provider, prescribed Flexeril and [place] which she has taken with mild relief. Past Medical History: Diagnosis Date Cancer (HCC) 2019 Colon Chronic back pain Diabetes (HCC) DJD (degenerative joint disease) Hip pain HTN (hypertension) Hyperlipidemia Spinal stenosis Past Surgical History: Procedure Laterality Date ABDOMEN SURGERY BACK SURGERY DILATATION, ESOPHAGUS FRACTURE SURGERY HAND SURGERY 07/2021 HIP SURGERY Right 06/18/2022 INTRA ARTICULAR HIP RIGHT HIP performed by Martinez Guthrie MD at [facility] PAIN MANAGEMENT JOINT REPLACEMENT KNEE ARTHROSCOPY Left 10/13/2021 SUBTOTAL COLECTOMY 2020 R. Hemicolectomy UPPER GASTROINTESTINAL ENDOSCOPY 2019 Allergies Allergen Reactions Morphine And Related Hallucinations, Itching, Nausea And Vomiting and Other (See Comments) Event: hallucinations Morphine Other reaction(s): migraines, hallucinations, itching Social History Socioeconomic History Marital status: Spouse [...] on file Housing Stability: Not on file Review of Systems: A complete review of systems was obtained, pertinent noted in the History of present illness. Current Outpatient Medications: Ondansetron HCl (ZOFRAN PO), Take by mouth, Disp: , Rfl: HYDROcodone-acetaminophen (NORCO) 5-325 MG per tablet, Take 1 tablet by mouth every 6 hours as needed for Pain., Disp: , Rfl: predniSONE (DELTASONE) 20 MG tablet, Take 2 tablets by mouth daily for 5 days, Disp: 10 tablet, Rfl: 0 cyclobenzaprine (FLEXERIL) 10 MG tablet, 10 mg 1 tabs, Oral, TID, PRN, 0, 10/19/19 10:31:00 EDT, Tab, Disp: , Rfl: acetaminophen (TYLENOL) 500 MG tablet, Take 500 mg by mouth every 6 hours as needed for Pain, Disp:, Rfl: aspirin 81 MG EC tablet, Take 81 mg by mouth daily, Disp: , Rfl: tadalafil (CIALIS) 20 MG tablet, , Disp: , Rfl: atorvastatin (LIPITOR) 40 MG tablet, 1 tablet Orally Once a day for 30 day(s), Disp: , Rfl: dulaglutide (TRULICITY) 1.5 MG/0.5ML SC injection, 1.5 mg, Disp: , Rfl: empagliflozin (JARDIANCE) 25 MG tablet, Orally, Disp: , Rfl: metFORMIN (GLUCOPHAGE) 1000 MG tablet, 1 tablet with a meal Orally bid, Disp: , Rfl: olmesartan (BENICAR) 20 MG tablet, Take 20 mg by mouth daily 1/2 tablet daily, Disp: , Rfl: pantoprazole (PROTONIX) 40 MG tablet, 1 tablet Orally Once a day for 30 day(s), Disp: , Rfl: Physical Exam: There were no vitals taken for this visit. There is no height or weight on file to calculate BMI. GCS 15 General: well developed, well nourished, no acute distress, speech clear and appropriate Heart has a regular rate and rhythm, no murmurs, gallops or rub Lungs clear to auscultation Psych: Cooperative, appropriate mood for situation, normal affect Neuro: Awake, alert, and oriented to person, place, time, and situation Cranial Nerves: II: Visual acuity not tested, denies new visual changes / diplopia III, IV, : PERRL, 3 mm bilaterally, EOMI, no nystagmus noted V: Facial sensation intact bilaterally to touch VII: Face symmetric VIII: Hearing intact bilaterally to spoken voice IX: Palate movement equal bilaterally XI: Shoulder shrug equal bilaterally XII: Tongue midline No pronation or drift on exam Lower Extremities: Right Left Iliopsoas 5/5 4.5/5 2/2 pain Quads 5/5 5/5 Hamstrings 5/5 5/5 Gastrocs 5/5 5/5 Anterior Tibialis 5/5 5/5 EHL 5/5 5/5 No deformities or edema bilaterally Reflexes: 2+ patellar and Achilles, normal No clonus or babinski present Sensation intact to light touch and pin-prick Gait: Normal Assist devices: cane Back/Thoracic and Lumbar spine: Decreased range of motion with flexion and extension. Skin pain to left sacroiliac joint with palpation Significant pain with provocative maneuvers including thigh thrust, Gaenslen's, and Ashley Skin: Well healed midline lumbar surgical incision Assessment and Plan: Martínez Toribio 67 y.o. male plaints of pain to the left low back radiating under the left buttocks. Significant pain to the left sacroiliac joint with palpation and SI provocative maneuvers including thigh thrust, Ashley and Gaenslen's. Ordering lumbar x-rays including flexion and extension views to assess hardware. I will call him with results. I prescribed an oral course of steroids. We discussed how to take medication appropriately. If pain is still persistent after an oral course of steroids, I will him to Dr. Guthrie for a left SI injection and order MRI lumbar spine. 1. Spinal stenosis of lumbar region with neurogenic claudication 2. Sacroiliitis (HCC) Willa Kemp. Edson [facility]- Neurosurgery Nurse Practitioner documented in this encounter Plan of Treatment Upcoming Encounters Date Type Department Care Team (Late st Contact Info) Description 03/24/2024 9:00 AM EDT Office Visit Neurology - [facility] [address] [facility] [address] [place] [address] Martell Calderon MD 2144 [facility] [address] [place] [address] TREMORS/ MEDICARE, FOR LIFE 03/28/2024 8:30 AM EDT Office Visit Primary Care - [address] [phone] Cheo Santoyo, [address] [place] [address] AWV 04/06/2024 9:45 AM EST Lab [place] [facility] - [facility] [address] [facility] [address] [place] [address] CBCMP,CEA,FEST 04/06/2024 10:15 AM EST Office Visit [place] [facility] - [facility] [address] [facility] [address] [place] [address] Georgi Butterfield MD [address] [place] [address] 6 MTH FU W/LABS, REV SCAN 04/13/2024 9:30 AM EST Office Visit Surgical Oncology - [facility] [address] [facility] [address] [place] [address] Delvis Cheek MD 125 [facility] [address] [place] [address] 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 06/19/2024 10:30 AM EST Office Visit Orthopaedics- Les Valencia [address] [facility] [address] [place] [address] Karly Bautista, PA 180 [facility] [address] [place] [address] annual visit from date of surgery May/Jul 2024 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 documented as of this encounter Results * XR LUMBAR SPINE [...] movement between flexion and extension Willa Sandhu GRAIN WEIGHER - LENS INSERTER IMG DIAGNOSTI C IMAGING ORDERABLES documented in this encounter Visit Diagnoses Diagnosis Spinal stenosis of lumbar region with neurogenic claudication- Primary Spinal stenosis, lumbar region, with neurogenic claudication Sacroiliitis (HCC) Sacroiliitis, not elsewhere classified Spinal stenosis of lumbar region with neurogenic claudication Spinal stenosis, lumbar region, with neurogenic claudication Sacroiliitis (HCC) Sacroiliitis, not elsewhere classified documented in this encounter Care Teams Set Designer Relationship Specialty Start Date End Date Felicitas Monaco MD PCP - General Family Medicine 06/18/22 07/05/23 documented as of this encounter
--- OUTSIDE RECORDS SUMMARY | 2024-01-11 22:17 | XMS_ITS | Encounter Summary ---
Author Organization [facility] Address [address] [place] [address] Care Team Providers Care Log Haul Chain Feeder Name Role Phone Baljit Ozuna MD Primary Care Provider Reason for Visit * Reason Comments Follow-up Bilateral supartz in j. x2 Hip Pain Right hip Encounter Details Date Type Department Care Team (Late st Contact Info) Description 03/24/2022 9:45 AM EDT Nurse Only Orthopaedics - Maryan [address] Dr. [address] [place] [phone] Georgi Andersen PA [address] [facility] [address] [place] [address] Primary hypertension (Primary Dx) Social History Tobacco Use Types Packs/Day Years Used Date Smoking Tobacco: Never Smokeless Tobacco: Never Tobacco Cessation:Counseling Given: Not Answered Sex and Gender Information Value Date Recorded Sex Assigned at Not on file Gender Identity Not on file Sexual Orientation Not on file documented as of this encounter Last Filed Vital Signs Vital Sign Reading Time Taken Comments Blood Pressure - - Pulse - - Temperature - - Respiratory Rate - - Oxygen Saturation - - Inhaled Oxygen Concentration - - Weight 95.3 kg (210 lb) 03/24/2022 9:49 AM EDT Height 175.3 cm (5' 9) 03/24/2022 9:49 AM EDT Body Mass Index 31.01 03/24/2022 9:49 AM EDT documented in this encounter Progress Notes * Georgi Andersen PA - 03/24/2022 9:56 AM EDT Patient presents for visco supplementation injection CC: Chief Complaint Patient presents with Follow-up Bilateral supartz inj. x2 HPI: Patient presents for visco supplementation injection into bilateral knees Assessment: 1. Primary hypertension Treatment Plan: Viscosupplementation injection in bilateral knees. Procedures: Side: Bilateral Injection: Supartz Injection Number: 2nd We discussed [...] Dr. [address] [place] [phone] Martell Calderon MD [address] [facility] [address] [place] [address] TREMORS/ MEDICARE, FOR LIFE 03/28/2024 8:30 AM EDT Office Visit Primary Care - [address] [phone] Cheo Santoyo DO [address] [place] [phone] AWV 04/06/2024 9:45 AM EST Lab [facility] [address] [facility] [address] [place] [phone] CBCMP,CEA,FEST 04/06/2024 10:15 AM EST Office Visit [facility] - [facility] [address] [facility] [address] [place] [phone] Georgi Butterfield MD [address] [place] [address] 6 MTH FU W/LABS, REV SCAN 04/13/2024 9:30 AM EST Office Visit Surgical Oncology - [facility] [address] [facility] [address] [place] [phone] Delvis Cheek MD 125 [facility] [address] [place] [phone] 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 [address] [place] [phone] Karly Bautista PA [address] [place] [address] annual visit from date of surgery May/Jul 2024 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 documented as of this encounter Visit Diagnoses Diagnosis Primary hypertension- Primary Unspecified essential hypertension documented in this encounter Care Teams Log Haul Chain Feeder Relationship Specialty Start Date End Date Baljit Ozuna MD PCP - General 03/12/22 06/17/22 documented as of this encounter
--- OUTSIDE RECORDS SUMMARY | 2024-01-11 22:17 | XMS_ITS | Encounter Summary ---
Author Organization [facility] Address [address] [place] [address] Care Team Providers Care Group Home Manager Name Role Phone Felicitas Monaco MD Primary Care Provider [phone] Reason for Visit * Reason Comments New Patient Encounter Details Date Type Department Care Team (Late st Contact Info) Description 06/30/2022 9:30 AM EST Office Visit Primary Care - [address] [place] [address] Felicitas Monaco MD [address] [place] [phone] Type 2 diabetes mellitus without complication, without long-term current use of insulin (HCC) (Primary Dx); Former smoker; Need for hepatitis C screening test; Chronic bilateral low back pain without sciatica; Gastroesophageal reflux disease, unspecified whether esophagitis present; Right hip pain Social History Tobacco Use Types Packs/Day Years [...] AM EST documented as of this encounter Last Filed Vital Signs Vital Sign Reading Time Taken Comments Blood Pressure 121/84 06/30/2022 9:30 AM EST Pulse 84 06/30/2022 9:30 AM EST Temperature 36.4 ??C (97.5 ??F) 06/30/2022 9:30 AM ES T Respiratory Rate - - Oxygen Saturation 96% 06/30/2022 9:30 AM EST Inhaled Oxygen Concentration - - Weight 100.7 kg (222 lb) 06/30/2022 9:30 AM EST Height 175.3 cm (5' 9) 06/30/2022 9:30 AM EST Body Mass Index 32.78 06/30/2022 9:30 AM EST documented in this encounter Progress Notes * Felicitas Monaco MD - 06/30/2022 9:51 AM EST PROGRESS NOTE Martínez Toribio is a 67 y.o.male here for evaluation of the following chief complaint(s): Chief Complaint Patient presents with New Patient SUBJECTIVE New to me. New to the clinic. 67yo M w/ h/o colon ca, DMII, GERD, HTN, kidney stones, chronic back pain. DMII: metformin 1000mg bid, jardiance 25mg, trulicity 1.5mg weekly -checking BS at home. Ranging 90-140s GERD, h/o bleeding ulcer/Ryan's esophagus: protonix 40mg [...] to d/c the Carafate and iron. -his architectural modeler felt the ulcer was related to his [...] -stable. Well controlled. No cp, sob, edema Chronic pain: Low back pain Right hip pain -with GI hx is limited on nsaid use -recent MRI right hip and apt w/ Dr. Valiente. Planning for PT, hip injections. Pt in severe pain at times in the mean time. Limited mobility. -also w/ chronic low back pain and hx of back surgery. OBJECTIVE Vitals: 06/30/22 0930 BP: 121/84 Site: Left Upper Arm Position: Sitting Pulse: 84 Temp: 97.5 ??F (36.4 ??C) SpO2: 96% Weight: 222 lb (100.7 kg) Height: 5' 9 (1.753 m) Physical Exam: General: well developed, well nourished, no acute distress Skin: warm, dry, no rash Cardio: rrr, no m/g/r Respiratory: CTAB, no increased wob, no wheezing Neuro: awake, alert, AAOx3 Psych: normal mood and affect Allergies Allergen Reactions Morphine And Related Hallucinations, Itching, Nausea And Vomiting and Other (See Comments) Event: hallucinations Morphine Other reaction(s): migraines, hallucinations, itching Prior to Admission medications Medication Sig Start Date End Date Taking? Authorizing Provider cyclobenzaprine (FLEXERIL) 10 MG tablet 10 mg 1 tabs, Oral, TID, PRN, 0, 10/19/19 10:31:00 EDT, Tab10/19/19 Yes Historical Provider, acetaminophen (TYLENOL) 500 MG tablet Take 500 mg by mouth every 6 hours as needed for Pain Yes Historical Provider, aspirin 81 MG EC tablet Take 81 mg by mouth daily Yes Historical Provider, tadalafil (CIALIS) 20 MG tablet 06/11/20 Yes Historical Provider, atorvastatin (LIPITOR) 40 MG tablet 1 tablet Orally Once a day for 30 day(s) Yes [facility] Automatic Reconciliation, Dulaglutide (TRULICITY) 0.75 MG/0.5ML SOPN 1.5 mg Yes [facility] Automatic Reconciliation, empagliflozin (JARDIANCE) 25 MG tablet Orally Yes [facility] Automatic Reconciliation, metFORMIN (GLUCOPHAGE) 1000 MG tablet 1 tablet with a meal Orally bid Yes [facility] Automatic Reconciliation, olmesartan (BENICAR) 20 MG tablet Take 20 mg by mouth daily 1/2 tablet daily Yes [facility] Automatic ReconciliationMD pantoprazole (PROTONIX) 40 MG tablet 1 tablet Orally Once a day for 30 day(s) Yes [facility] Automatic ReconciliationMD Family History Problem Relation Age of Onset [...] file Past Surgical History: Procedure Laterality Date ABDOMEN SURGERY BACK SURGERY DILATATION, ESOPHAGUS FRACTURE SURGERY HIP SURGERY Right 06/18/2022 INTRA ARTICULAR HIP RIGHT HIP performed by Martinez Guthrie MD at [facility] PAIN MANAGEMENT JOINT REPLACEMENT SUBTOTAL COLECTOMY 2019 R. Hemicolectomy UPPER GASTROINTESTINAL ENDOSCOPY 2019 Past Medical History: Diagnosis Date Cancer (HCC) 2020 Colon Chronic back pain Diabetes (HCC) DJD (degenerative joint disease) Hip pain HTN (hypertension) Hyperlipidemia Spinal stenosis ASSESSMENT/PLAN Martínez was seen today for new patient. Diagnoses and all orders for this visit: Type 2 diabetes mellitus without complication, without long-term current use of insulin (HCC) Comments: continue current regimen Orders: - AMB POC HEMOGLOBIN A1C - Comprehensive Metabolic Panel; Future - CBC; Future - Lipid Panel; Future - Microalbumin / Creatinine Urine Ratio; Future Former smoker Need for hepatitis C screening test - Hepatitis C Antibody; Future Chronic bilateral low back pain without sciatica - HYDROcodone-acetaminophen (NORCO) 5-325 MG per tablet; Take 1 tablet by mouth daily as needed forPain for up to 3 days. Intended supply: 3 days. Take lowest dose possible to manage pain Max Daily Amount: 1 tablet Gastroesophageal reflux disease, unspecified whether esophagitis present Comments: hx barretts esophagus. avoid nsaids. continue protonix Right hip pain Comments: limited supply of norco given for severe breakthru pain. pt cannot take nsaids. opioid consent signed. Orders: - HYDROcodone-acetaminophen (NORCO) 5-325 MG per tablet; Take 1 tablet by mouth daily as needed forPain for up to 3 days. Intended supply: 3 days. Take lowest dose possible to manage pain Max Daily Amount: 1 tablet An electronic signature was used to authenticate this note. --Felicitas Monaco MD documented in this encounter Plan of Treatment Upcoming Encounters Date Type Department Care Team (Late st Contact Info) Description 03/24/2024 9:00 AM EDT Office Visit Neurology - [facility] [address] [facility] [address] [place] [phone] Martell Calderon MD 2145 [facility] [address] [place] [address] TREMORS/ MEDICARE, FOR LIFE 03/28/2024 8:30 AM EDT Office Visit Primary Care - [address] [phone] Cheo Santoyo DO [address] [place] [phone] AWV 04/06/2024 9:45 AM EST Lab [facility] - [facility] [address] [facility] [address] [place] [address] CBCMP,CEA,FEST 04/06/2024 10:15 AM EST Office Visit [facility] - [facility] [address] [facility] [address] [place] [address] Georgi Butterfield MD [address] [place] [address] 6 MTH FU W/LABS, REV SCAN 04/13/2024 9:30 AM EST Office Visit Surgical Oncology - [facility] [address] [facility] [address] [place] [address] Delvis Cheek MD 125 [facility] [address] [place] [phone] 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 [address] [place] [address] Karly Bautista PA [address] [place] [address] annual visit from date of surgery May/Jul 2024 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 Scheduled Orders Name Type Priority Associated Diagnoses Orde r Schedule Lipid Panel Lab Routine Type 2 diabetes mellitus without complication, without long-term current use of insulin (HCC) Expected: 06/30/2022, Expires: 06/30/2023 Microalbumin / Creatinine Urine Ratio Lab Routine Type 2 diabetes mellitus without complication, without long-term current use of insulin (HCC) Expected: 06/30/2022, Expires: 06/30/2023 documented as of this encounter Procedures Procedure Name Priority Date/Time Associated Diagnosis Comments AMB POC HEMOGLOBIN A1C Routine 06/30/2022 10:07 AM EST Type 2 diabetes mellitus without complication, without long-term current use of insulin (HCC) documented in this encounter Results * Hepatitis C Antibody (03/04/2023 1:05 PM EDT) Pathologist [facility] Hepatitis C Ab Negative Negative [facility] Blood BLOOD SPECIMEN / Unknown 03/04/2023 1:05 PM EDT 03/04/2023 4:05 PM EDT Felicitas Monaco MD IMMUNOLOGY ORDERABL ES Performing Organization Address City/[facility]/ZIP Co de Phone Number [facility] [address] [place] [address] * CBC (03/04/2023 1:05 PM EDT) Pathologist [facility] WBC 6.6 3.8 - 10.6 x10e3/mcL [facility] RBC 5.24 4.00 - 5.60 x10e6/mcL [facility] Hemoglobin 16.3 13.0 - 17.3 g/dL [facility] Hematocrit 48.8 38.0 - 52.0 % [facility] MCV 93.1 84.0 - 100.0 [...] MD HEMATOLOGY ORDERABL ES Performing Organization Address [facility]/ZIP Co de Phone Number [facility] [address] [facility] [place] [address] * (ABNORMAL) Comprehensive Metabolic Panel (03/04/2023 1:05 [...] EDT Felicitas Monaco MD CHEMISTRY ORDERABLE S [facility] [address] [facility] [place] [address] * AMB POC HEMOGLOBIN A1C (06/30/2022 10:07 AM EST) Hemoglobin A1C, POC 7.2 % 06/30/2022 10:0 7 AM EST Felicitas Monaco MD POINT OF CARE TEST ORDERABLES documented in this encounter Visit Diagnoses Diagnosis Type 2 diabetes mellitus without complication, without long-term current use of insulin (HCC)- Primary Former smoker Personal history of tobacco use, presenting hazards to health Need for hepatitis C screening test Special screening examination for other specified viral diseases Chronic bilateral low back pain without sciatica Gastroesophageal reflux disease, unspecified whether esophagitis present Right hip pain Pain in joint, pelvic region and thigh documented in this encounter Care Teams Group Home Manager Relationship Specialty Start Date End Date Felicitas Monaco MD PCP - General Family Medicine 06/18/22 07/05/23 documented as of this encounter
--- OUTSIDE RECORDS SUMMARY | 2024-01-11 22:17 | XMS_ITS | Encounter Summary ---
Author Organization [facility] Address [address] [place] [address] Care Team Providers Care Election Clerk Name Role Phone YarelisCheo friend Moshe REYES Primary Care Provider [phone] Encounter Details Date Type Department Care Team (Late st Contact Info) Description 03/04/2022 [facility] Historical Encounter [facility] AMB HISTORICAL Result, Unknown Provider Social History Tobacco Use Types Packs/Day Years Used Date Smoking Tobacco: Never Assessed AUDIT-C Answer Date Recorded Q1: How often [...] 9:00 AM EDT Office Visit Neurology - [facility] [address] [facility] [address] [place] [address] Martell Calderon MD [address] [facility] [address] [place] [address] TREMORS/ MEDICARE, FOR LIFE 03/28/2024 8:30 AM EDT Office Visit Primary Care - [address] [phone] Cheo Santoyo, [address] [phone] AWV 04/06/2024 9:45 AM EST Lab [facility] - [facility] [address] [facility] [address] [place] [address] CBCMP,CEA,FEST 04/06/2024 10:15 AM EST Office Visit [facility] - [facility] [address] [facility] [address] [place] [address] Georgi Butterfield MD [address] [place] [address] 6 MTH FU W/LABS, REV SCAN 04/13/2024 9:30 AM EST Office Visit Surgical Oncology - [facility] [address] [facility] [address] [place] [phone] Delvis Cheek MD 125 [facility] 660 [place] [phone] 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 06/19/2024 10:30 AM EST Office Visit Orthopaedics- Les Valencia [address] [facility] [address] [place] [phone] Karly Bautista, BURT 180 [facility] 301 [place] [address] annual visit from date of surgery May/Jul 2024 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 documented as of this encounter Visit Diagnoses Not on filedocumented in this encounter Care Teams Election Clerk Relationship Specialty Start Date End Date Cheo Santoyo DO [address] [place] [phone] PCP - General Family Medicine 07/06/23 documented as of this encounter
--- OUTSIDE RECORDS SUMMARY | 2024-01-11 22:17 | XMS_ITS | Encounter Summary ---
Author Organization [facility] Address [address] [place] [address] Care Team Providers Care Fitter Welder Name Role Phone Felicitas Monaco MD Primary Care Provider [phone] Reason for Visit * Auth/Cert (Routine) Specialty Diagnoses / Procedures Referred By Rachid jimenez Referred To Contact Diagnoses Unilateral primary osteoarthritis, right hip Procedures PA ARTHROCENTESIS ASPIR&/INJ MAJOR JT/BURSA W/O US Martinez Guthrie MD [address] [place] [phone] Referral ID Status Reason Start Date Expiration Date Visits Re quested Visits Authorized [id number] 05/26/2022 1 1 Encounter Details Date Type Department Care Team (Late st Contact Info) Description 06/18/2022 7:37 AM EST - 06/18/2022 8:39 AM EST Hospital Encounter [facility] [address] [place], [place] [id number] Martinez Guthrie MD [address] [place] [phone] Discharge Disposition: Home or Self Care Social History Tobacco Use Types Packs/Day Years Used Date Smoking Tobacco: Former Cigarettes Smokeless Tobacco: Never Alcohol Use Standard Drinks/Week Comments Yes 2 (1 standard drink = 0.6 oz pur e alcohol) Sex and Gender Information Value Date Recorded Sex Assigned at Not on file Gender Identity Not on file Sexual Orientation Not on file documented as of this encounter Last Filed Vital Signs Vital Sign Reading Time Taken Comments Blood Pressure 120/84 06/18/2022 7:57 AM EST Pulse 84 06/18/2022 7:57 AM EST Temperature 36 ??C (96.8 ??F) 06/18/2022 7:57 AM EST Respiratory Rate 16 06/18/2022 7:57 AM EST Oxygen Saturation - - Inhaled Oxygen Concentration - - Weight 95.3 kg (210 lb) 06/18/2022 7:57 AM EST Height 175.3 cm (5' 9) 06/18/2022 7:57 AM EST Body Mass Index 31.01 06/18/2022 7:57 AM EST documented in this encounter Discharge Instructions * Discharge Instructions* Kayley Valderrama RN - 06/18/2022 7:44 AM EST The following post procedural instructions [...] Everywhere. * Bursa Injection: Trochanteric: General Info (S[place]) * RICE: General Info ([place]) documented in this encounter Medications at Time of Discharge Medication Sig Dispensed Refills Start Date End Date cyclobenzaprine (FLEXERIL) 10 MG tablet 10 mg 1 tabs, Oral, TID, PRN, 0, 10/19/19 10:31:00 EDT, Tab 10/19/2019 09/21/2022 aspirin 81 MG EC tablet Take 1 tablet by mouth daily 12/21/2022 tadalafil (CIALIS) 20 MG tablet Take 1 tablet by mouth as needed for Erectile Dysfunction 06/11/2020 07/06/2023 sucralfate (CARAFATE) 1 GM tablet 04/09/2022 06/30/2022 atorvastatin (LIPITOR) 40 MG tablet 1 tablet Orally Once a day for 30 day(s) 08/13/2022 dulaglutide (TRULICITY) 1.5 MG/0.5ML SC injection 0.5 mLs 2022 empagliflozin (JARDIANCE) 25 MG tablet Orally 08/13/2022 metFORMIN (GLUCOPHAGE) 1000 MG tablet 1 tablet with a meal Orally bid 08/13/2022 olmesartan (BENICAR) 20 MG tablet Take 20 mg by mouth daily 1/2 tablet daily pantoprazole (PROTONIX) 40 MG tablet 1 tablet Orally Once a day for 30 day(s) 08/13/2022 documented as of this encounter Progress Notes * Kayley Valderrama RN - 06/18/2022 8:37 AM EST Patient discharged to home post right hip injection. Patient rated right hip pain 1 / 10 at time ofdischarge. Patient discharged to home via ambulatory with use of cane. Discharge instructions reviewed with patient prior to discharge. documented in this encounter Plan of Treatment Upcoming Encounters Date Type Department Care Team (Late st Contact Info) Description 03/24/2024 9:00 AM EDT Office Visit Neurology - [facility] [address] [facility] [address] [place] [address] Martell Calderon MD [address] [facility] [address] [place] [address] TREMORS/ MEDICARE, FOR LIFE 03/28/2024 8:30 AM EDT Office Visit Primary Care - [address] [phone] Cheo Santoyo DO [address] [place] [phone] AWV 04/06/2024 9:45 AM EST Lab [facility] - [facility] [address] [facility] [address] [place] [address] CBCMP,CEA,FEST 04/06/2024 10:15 AM EST Office [facility] - [facility] [address] [facility] [address] [place] [address] Georgi Butterfield MD [address] [place] [address] 6 MTH FU W/LABS, REV SCAN 04/13/2024 9:30 AM EST Office Visit Surgical Oncology - [facility] [address] [facility] [address] [place] [address] Delvis Cheek MD [address] [place] [address] [address] [place] [phone] 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 06/19/2024 10:30 AM EST Office Visit Orthopaedics- Les Valencia [address] [facility] [address] [place] [address] Karly Bautista, PA [address] [place] [address] annual visit from date of surgery May/Jul 2024 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 documented as of this encounter Procedures Procedure Name Priority Date/Time Associated Diagnosis Comments PA ARTHROCENTESIS ASPIR&/INJ MAJOR JT/BURSA W/O US 06/18/2022 8:27 AM EST Primary osteoarthritis of right hip documented in this encounter Visit Diagnoses Not on filedocumented in this encounter Active and Recently Administered Medications Times are shown in EST. PRN Medication Order 06/16/2022 06/17/2022 06/18/2022 bupivacaine (PF) (MARCAINE) 0.25 % injection (CANCELED) PRN, Starting on Domenica 06/18/22 at 0830, Until Domenica 06/18/22 at 0830, Intra-op 0830 (Given - Provid er: Martinez Guthrie MD) methylPREDNISolone acetate (DEPO-MEDROL) injection (CANCELED) PRN, Starting on Domenica 06/18/22 at 0829, Until Domenica 06/18/22 at 0830, Intra-op 0829 (Given - Provid er: Martinez Guthrie MD) documented in this encounter Care Teams Fitter Welder Relationship Specialty Start Date End Date Felicitas Monaco MD PCP - General Family Medicine 06/18/22 07/05/23 documented as of this encounter
--- OUTSIDE RECORDS SUMMARY | 2024-01-11 22:17 | XMS_ITS | Encounter Summary ---
Author Organization Jose Alejandro Raymundolninea [facility] Address [address] [place] [address] Care Team Providers Care Auto Research Engineer Name Role Phone Baljit Ozuna MD Primary Care Provider [phone] Reason for Visit * Reason Comments Injections B/L Supartz injectio ns #4 Encounter Details Date Type Department Care Team (Late st Contact Info) Description 04/10/2022 9:30 AM EST Nurse Only Orthopaedics - [address] [place] [address] Georgi Andersen PA [address] [place] [address] Primary osteoarthritis of left knee (Primary Dx); Primary osteoarthritis of right knee Social History Tobacco Use Types Packs/Day Years Used Date Smoking Tobacco: Never Smokeless Tobacco: Never Tobacco Cessation:Counseling Given: Not Answered Alcohol Use Standard Drinks/Week Comments Yes 0 (1 standard drink = 0.6 oz pur [...] - - Weight 95.3 kg (210 lb) 04/10/2022 9:46 AM EST Height 175.3 cm (5' 9) 04/10/2022 9:46 AM EST Body Mass Index 31.01 04/10/2022 9:46 AM EST documented in this encounter Progress Notes * Georgi Andersen PA - 04/10/2022 9:41 AM EST Patient presents for visco supplementation injection CC: Chief Complaint Patient presents with Injections B/L Supartz injections #4 HPI: Patient presents for visco supplementation injection into bilateral knees Assessment: 1. Primary osteoarthritis of left knee 2. Primary osteoarthritis of right knee Treatment Plan: Viscosupplementation injection in bilateral knees. Procedures: Side: Bilateral Injection: Supartz Injection Number: 4th We discussed the patient the risks, benefits, [...] 9:00 AM EDT [facility] [address] [facility] [address] [place] [address] Martell Calderon MD [address] [facility] [address] [place] [address] TREMORS/ MEDICARE, FOR LIFE 03/28/2024 8:30 AM EDT Office Visit Primary Care - [address] [address] Cheo Santoyo, DO [address] [place] [address] AWV 04/06/2024 9:45 AM EST Lab [facility] - [facility] [address] [facility] [address] [place] [address] CBCMP,CEA,FEST 04/06/2024 10:15 AM EST Office Visit [facility] - [facility] [address] [facility] [address] [place] [address] Georgi Butterfield MD [address] [place] [address] 6 MTH FU W/LABS, REV SCAN 04/13/2024 9:30 AM EST Office Visit Surgical Oncology - [facility] [address] [facility] [address] [place] [address] Delvis Cheek MD 125 [facility] [address] [place] [address] 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 06/19/2024 10:30 AM EST Office Visit Orthopaedics- Les Valencia [address] [facility] [address] [place] [address] Karly Bautista PA [address] [place] [address] annual visit from date of surgery May/Jul 2024 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 documented as of this encounter Visit Diagnoses Diagnosis Primary osteoarthritis of left knee- Primary Primary localized osteoarthrosis, lower leg Primary osteoarthritis of right knee Primary localized osteoarthrosis, lower leg documented in this encounter Care Teams Auto Research Engineer Relationship Specialty Start Date End Date Baljit Ozuna MD PCP - General 03/12/22 06/17/22 documented as of this encounter
--- OUTSIDE RECORDS SUMMARY | 2024-01-11 22:17 | XMS_ITS | Encounter Summary ---
Author Organization Jose Alejandro Kit [facility] Address [address] [place] [address] Care Team Providers Care Caser In Name Role Phone Felicitas Monaco MD Primary Care Provider [phone] Encounter Details Date Type Department Care Team (Late st Contact Info) Description 07/14/2022 Orders Only [place] [facility] - [facility] [address] [place] [address] Georgi Butterfield MD [address] [place] [address] Carcinoma of ascending colon (HCC) (Primary Dx) Social History Tobacco Use Types [...] Neurology - [facility] [address] [facility] [address] [place] [address] Martell Calderon MD 2[address] [facility] [address] [place] [address] TREMORS/ MEDICARE, FOR LIFE 03/28/2024 8:30 AM EDT Office Visit Primary Care - [address] [address] Cheo Santoyo, [address] [place] [address] AWV 04/06/2024 9:45 AM EST Lab [facility] - [facility] [address] [facility] [address] [place] [address] CBCMP,CEA,FEST 04/06/2024 10:15 AM EST Office Visit [facility] - [facility] [address] [facility] [address] [place] [address] Georgi Butterfield MD 35[address] [facility] [address] [place], [place] [address] 6 MTH FU W/LABS, REV SCAN 04/13/2024 9:30 AM EST Office Visit Surgical Oncology - [facility] [address] [facility] [address] [place] [address] Delvis Cheek MD 125 [facility] [address] [place] [address] 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 06/19/2024 10:30 AM EST Office Visit Orthopaedics- Les Valencia [address] [facility] [address] [place] [address] Karly Bautista, BURT [address] [facility] [address] [place] [address] annual visit from date of surgery May/Jul 2024 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 Scheduled Orders Name Type Priority Associated Diagnoses Orde r Schedule Miscellaneous Reference Test Sendout Lab Routine Carcinoma of ascending colon (HCC) Expected: 07/14/2022, Expires: 07/14/2023 documented as of this encounter Visit Diagnoses Diagnosis Carcinoma of ascending colon (HCC)- Primary Malignant neoplasm of ascending colon documented in this encounter Care Teams Caser In Relationship Specialty Start Date End Date Felicitas Monaco MD PCP - General Family Medicine 06/18/22 07/05/23 documented as of this encounter
--- OUTSIDE RECORDS SUMMARY | 2024-01-11 22:17 | XMS_ITS | Encounter Summary ---
Author Organization Jose Alejandro [facility] Address [address] [place] [address] Care Team Providers Care Puddler Helper Name Role Phone Baljit Ozuna MD Primary Care Provider [phone] Reason for Referral * Imaging (Routine) - Closed Specialty Diagnoses / Procedures Referred By Rachid jimenez Referred To Contact Radiology Diagnoses Right hip pain Procedures IR INJ ARTHROGRAM HIP RIGHT Georgi Andersen PA [address] [facility] [address] [place] [address] Referral ID Status Reason Start Date Expiration Date Visits Re quested Visits Authorized [id number] Closed 04/21/2022 04/21/2023 1 1 Reason for Visit * Auth/Cert (Routine) Specialty Diagnoses / Procedures Referred By Rachid jimenez Referred To Contact [facility] [address] [place] [address] [address] Referral ID Status Reason Start Date Expiration Date Visits Re quested Visits Authorized [id number] 1 1 Encounter Details Date Type Department Care Team (Latest Contact Info) Description 04/29/2022 12:30 PM EST - 04/29/2022 12:38 PM EST Hospital Encounter [facility] Interventional Radiology [address] [place] [address] Midlevel, [facility] Right hip pain Discharge Disposition: Home or Self Care [...] suspected to have Coronavirus/COVID-19? No / Unsure 04/13/2022 5:59 PM EST documented as of this encounter Medications at [...] day(s) 08/13/2022 documented as of this encounter Plan of Treatment Upcoming Encounters Date Type Department Care Team (Late st Contact Info) Description 03/24/2024 9:00 AM EDT Office Visit Neurology - Maryan Jacobsen Dr. [address] [place] [address] Martell Calderon MD 5 [facility] [address] [place] [address] TREMORS/ MEDICARE, FOR LIFE 03/28/2024 8:30 AM EDT Office Visit Primary Care - [facility] [address] [place] [address] Cheo Santoyo, DO [address] [place] [address] AWV 04/06/2024 9:45 AM EST Lab [facility] - [facility] [address] [facility] [address] [place] [address] CBCMP,CEA,FEST 04/06/2024 10:15 AM EST Office Visit [facility] - [facility] [address] [facility] [address] [place] [address] Georgi Butterfield MD [address] [place] [address] 6 MTH FU W/LABS, REV SCAN 04/13/2024 9:30 AM EST Office Visit Surgical Oncology - [facility] [address] 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 documented as of this encounter Procedures Procedure Name Priority Date/Time Associated Diagnosis Comments IR ARTHROGRAM HIP RIGHT Routine 04/29/2022 1:21 PM EST Right hip pain documented in this encounter Results * IR INJ ARTHROGRAM HIP RIGHT (04/29/2022 1:21 PM EST) Anatomical Region Laterality Modality X-Ray Angiograph y 04/29/2022 2:00 PM EST Impressions 04/29/2022 5:29 PM EST Successful right hip joint gadolinium injection as detailed above. Narrative 04/29/2022 5:29 PM EST FLUOROSCOPIC GUIDED JOINT INJECTION : 04/29/22 INDICATION: Right Hip MR Arthrogram PROCEDURE PERFORMED BY: Georgi Santoyo [facility] SUPERVISING PHYSICIAN: Dr. Potts TECHNIQUE AND FINDINGS: CONSENT: Prior to the study, the patient participated in written informed consent. The technical aspects of the procedure, as well as potential risks and benefits, were explained to the patient. The patient was given the opportunity to ask questions, which were then answered. The patient wished to undergo the procedure. ANESTHESIA: Lidocaine 1% 3 mL SC INTRA-ARTICULAR INJECTION: 12 mL of standard 1:200 gadolinium: Normal saline/0.25% Marcaine dilution. COMPLICATION: None PROCEDURE: The patient was placed supine on the fluoroscopy table. Under fluoroscopic visualization, a standard anterior approach to the right hip joint was selected, followed by standard prep and drape and local anesthesia administration. A 22-gauge spinal needle was advanced to the right hip joint under fluoroscopic guidance, and position verified with injection of a minimal volume of Isovue iodinated contrast. Subsequently, 12 mL of standard 1:200 gadolinium: Normal saline/0.25% Marcaine dilution was injected intra-articularly. The needle was withdrawn and the patient left the room in stable condition. TOTAL FLUOROSCOPY TIME: ??6 seconds. PERMANENT IMAGES OBTAINED: 2. Permanent images were archived to PACS. Procedure Note Clyde Potts MD - 04/29/2022 FLUOROSCOPIC GUIDED JOINT INJECTION : 04/29/22 INDICATION: Right Hip MR Arthrogram PROCEDURE PERFORMED BY: CHRISATL Miner SUPERVISING PHYSICIAN: Dr. Potts TECHNIQUE AND FINDINGS: CONSENT: Prior to the study, the patient participated in written informed consent. The technical aspects of the procedure, as well as potentialrisks and benefits, were explained to the patient. The patient was given theopportunity to ask questions, which were then answered. The patient wished to undergothe procedure. ANESTHESIA: Lidocaine 1% 3 mL SC INTRA-ARTICULAR INJECTION: 12 mL of standard 1:200 gadolinium: Normal saline/0.25% Marcaine dilution. COMPLICATION: None PROCEDURE: The patient was placed supine on the fluoroscopy table. Under fluoroscopic visualization, a standard anterior approach to the right hipjoint was selected, followed by standard prep and drape and local anesthesia administration. A 22-gauge spinal needle was advanced to the right hipjoint under fluoroscopic guidance, and position verified with injection of aminimal volume of Isovue iodinated contrast. Subsequently, 12 mL of standard 1:200 gadolinium: Normal saline/0.25% Marcaine dilution was injected intra-articularly. The needle was withdrawn and the patient left the roomin stable condition. TOTAL FLUOROSCOPY TIME: 6 seconds. PERMANENT IMAGES OBTAINED: 2.Permanent images were archived to PACS. IMPRESSION: Successful right hip joint gadolinium injection as detailed above. Georgi DALLAS IMG IR ORDERABLES documented in this encounter Visit Diagnoses Diagnosis Right hip pain Pain in joint, pelvic region and thigh documented in this encounter Administered Medications Inactive Administered Medications - up to 3 most recent administrations Medication Order MAR Action Action Date Dose Rate Site gadobutrol (GADAVIST) injection 0.1 mL 0.1 mL, Other, IMG ONCE PRN, 1 dose, Starting on Wed04/29/22 at 1316, Until Wed04/29/22 at 1317, Other Given 04/29/2022 1:17 PM EST 0.1 mLs iopamidol (ISOVUE-300) 61 % injection 2 mL 2 mL, Other, IMG ONCE PRN, 1 dose, Starting on Wed04/29/22 at 1307, Until Wed04/29/22 at 1315, Other Given 04/29/2022 1:15 PM EST 2 mLs documented in this encounter Care Teams Puddler Helper Relationship Specialty Start Date End Date Baljit Ozuna MD PCP - General 03/12/22 06/17/22 documented as of this encounter
--- OUTSIDE RECORDS SUMMARY | 2024-01-11 22:17 | XMS_ITS | Encounter Summary ---
Author Organization Jose Alejandro [facility] Address [address] [place] [address] Care Team Providers Care Colorman Name Role Phone Baljit Ozuna MD Primary Care Provider [phone] Reason for Referral * Imaging (Routine) - Closed Specialty Diagnoses / Procedures Referred By Rachid jimenez Referred To Contact Radiology Diagnoses Right hip pain Procedures MRI HIP RIGHT W CONTRAST MRI HIP RIGHT W CONTRAST MRI HIP RIGHT W CONTRAST Georgi Andersen PA [address] [facility] [address] [place] [address] Referral ID Status Reason Start Date Expiration Date Visits Re quested Visits Authorized [id number] Closed 04/21/2022 04/21/2023 1 1 Reason for Visit * Auth/Cert (Routine) Specialty Diagnoses / Procedures Referred By Rachid jimenez Referred To Contact [facility] [address] [place] [address] [address] Referral ID Status Reason Start Date Expiration Date Visits Re quested Visits Authorized [id number] 1 1 Encounter Details Date Type Department Care Team (Latest Contact Info) Description 04/29/2022 12:39 PM EST - 04/29/2022 11:59 PM EST Hospital Encounter [facility] MRI [address] [place] [address] Right hip pain Discharge Disposition: Home or [...] Office Visit Neurology - Maryan Jacobsen Dr. [address] [place] [address] Martell Calderon MD 5 [facility] [address] [place] [address] TREMORS/ MEDICARE, FOR LIFE 03/28/2024 8:30 AM EDT Office Visit Primary Care - [facility] [address] [place] [address] Cheo Santoyo, DO [address] [place] [address] AWV 04/06/2024 9:45 AM EST Lab [place] [facility] - [facility] [address] [facility] [address] [place] [address] CBCMP,CEA,FEST 04/06/2024 10:15 AM EST Office Visit [facility] - [facility] [address] [facility] [address] [place] [address] Georgi Butterfield MD [address] [place] [address] 6 MTH FU W/LABS, REV SCAN 04/13/2024 9:30 AM EST Office Visit Surgical Oncology - [facility] [address] [facility] [address] [place] [address] Delvis Cheek MD 125 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 documented as of this encounter Procedures Procedure Name Priority Date/Time Associated Diagnosis Comments MRI HIP RIGHT W CONTRAST Routine 04/29/2022 2:14 PM EST Right hip pain documented in this encounter Results * MRI HIP RIGHT W CONTRAST (04/29/2022 2:14 PM EST) Anatomical Region Laterality Modality Hip, Pelvis, Thigh Magnetic Reso nance 04/29/2022 2:38 PM EST Impressions 04/29/2022 2:55 PM EST 1. Right hip osteoarthrosis most notable for multifocal areas of high-grade cartilage loss. Subchondral marrow edema in the acetabulum. Partial thickness tearing of the labrum. 2. No fracture or AVN. Narrative 04/29/2022 2:55 PM EST EXAMINATION: MRI arthrogram right hip DATE: ??04/29/22 INDICATION: Right hip pain. COMPARISON: None. TECHNIQUE: ??Fat saturated T1, T2 images in the axial, coronal, oblique axial and oblique coronal planes were obtained of the RIGHT hip after intra articular injection of gadolinium contrast. Small jlbxr-bs-iqiq sagittal T1 fat-sat. Large field of view coronal T1 of the pelvis. See separate dictation for the injection procedure. FINDINGS: The alpha angle (normal <55 degrees) in the axial plane at the anterior 3 o'clock position is 52 degrees. At the 12 o'clock position it is 55 degrees. Acetabular depth is 7 mm (negative numbers suggest pincer morphology). Subtle abnormal signal along the superior and anterior superior labrum (for example axial T2 images 9-11 and coronal T2 images 14-15), consistent with partial-thickness tearing of the labrum. Multifocal areas of high-grade cartilage loss involving both the acetabulum and femoral head. Notable area of high-grade cartilage loss along the superior aspect of the acetabulum spanning about 9 mm in width (coronal T2 images 11-13 for example), with prominent associated subchondral marrow edema. Adjacent even larger area of high-grade femoral head cartilage loss medially. No significant femoral head marrow edema. Additional areas of mild to moderate grade chondromalacia elsewhere. No fracture or AVN. ??Soft tissues are unremarkable. Procedure Note Deandre Gamino MD - 04/29/2022 EXAMINATION: MRI arthrogram right hip DATE: 04/29/22 INDICATION: Right hip pain. COMPARISON: None. TECHNIQUE: Fat saturated T1, T2 images in the axial, coronal, obliqueaxial and oblique coronal planes were obtained of the RIGHT hip after intraarticular injection of gadolinium contrast. Small fedpv-yi-eijm sagittal T1 fat-sat.Large field of view coronal T1 of the pelvis. See separate dictation for the injection procedure. FINDINGS: The alpha angle (normal <55 degrees) in the axial plane at the anterior 3 o'clock position is 52 degrees. At the 12 o'clock position it is 55degrees. Acetabular depth is 7 mm (negative numbers suggest pincer morphology). Subtle abnormal signal along the superior and anterior superior labrum(for example axial T2 images 9-11 and coronal T2 images 14-15), consistent with partial-thickness tearing of the labrum. Multifocal areas of high-grade cartilage loss involving both the acetabulum and femoral head. Notablearea of high-grade cartilage loss along the superior aspect of the acetabulumspanning about 9 mm in width (coronal T2 images 11-13 for example), with prominent associated subchondral marrow edema. Adjacent even larger area ofhigh-grade femoral head cartilage loss medially. No significant femoral head marrowedema. Additional areas of mild to moderate grade chondromalacia elsewhere. No fracture or AVN. Soft tissues are unremarkable. IMPRESSION: 1. Right hip osteoarthrosis most notable for multifocal areas ofhigh-grade cartilage loss. Subchondral marrow edema in the acetabulum. Partialthickness tearing of the labrum. 2. No fracture or AVN. Georgi DALLAS Stu MRI ORDERABLES documented in this encounter Visit Diagnoses Diagnosis Right hip pain Pain in joint, pelvic region and thigh documented in this encounter Care Teams Colorman Relationship Specialty Start Date End Date Baljit Ozuna MD PCP - General 03/12/22 06/17/22 documented as of this encounter
--- OUTSIDE RECORDS SUMMARY | 2024-01-11 22:17 | XMS_ITS | Encounter Summary ---
Author Organization Jose Alejandro Kit City[facility] Address [address] [place] [address] Care Team Providers Care Hand Candle Dipper Name Role Phone Felicitas Monaco MD Primary Care Provider [phone] Encounter Details Date Type Department Care Team (Late st Contact Info) Description 06/15/2022 [facility] - [facility]. [address] [facility] [address] [place] [address] Georgi Butterfield MD [address] [place] [address] Social History Tobacco Use Types [...] Dr. [address] [place] [address] Martell Calderon MD 2[address] [facility] [address] [place] [address] TREMORS/ MEDICARE, FOR LIFE 03/28/2024 8:30 AM EDT Office Visit Primary Care - [address] [address] Cheo Santoyo DO [address] [place] [address] AWV 04/06/2024 9:45 AM EST Lab [place] [facility] - [facility] [address] [facility] [address] [place] [address] CBCMP,CEA,FEST 04/06/2024 10:15 AM EST Office Visit [facility] - [facility] [address] [facility] [address] [place] [address] Georgi Butterfield MD [address] [place] [address] 6 MTH FU W/LABS, REV SCAN 04/13/2024 9:30 AM EST Office Visit Surgical Oncology - [facility] [address] 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 [address] [place] [address] Karly Bautista, BURT [address] [place] [address] annual visit from date of surgery May/Jul 2024 for bilateral TKA and right LIZZ with Akrly. documented as of this encounter Procedures Procedure Name Priority Date/Time Associated Diagnosis Comments SIGNATERA Routine 06/10/2022 documented in this encounter Results * Signatera (06/10/2022) Other (Other) Georgi Butterfield MD LAB MOLECULAR DIAGN OSTICS ORDERABLES - IVÁN documented in this encounter Visit Diagnoses Not on filedocumented in this encounter Care Teams Hand Candle Dipper Relationship Specialty Start Date End Date Felicitas Monaco MD PCP - General Family Medicine 06/18/22 07/05/23 documented as of this encounter
--- OUTSIDE RECORDS SUMMARY | 2024-01-11 22:17 | XMS_ITS | Encounter Summary ---
Author Organization Jose Alejandro Kit Videollamarysol [facility] Address [address] [place] [address] Care Team Providers Care Toaster Element Repairer Name Role Phone Baljit Ozuna MD Primary Care Provider [phone] Reason for Visit * Reason Onset Date Comments Other 05/08/2022 Encounter Details Date Type Department Care Team (Late Contact Info) Description 05/08/2022 Telephone Primary Care - [address] [place] [address] Baljit Ozuna MD [address] [facility] [address] [place] [address] Other Social History Tobacco Use Types Packs/Day [...] PM EST documented as of this encounter Plan of Treatment Upcoming Encounters Date Type Department Care Team (Late st Contact Info) Description 03/24/2024 9:00 AM EDT Office Visit Neurology - [address] [place] [address] Martell Calderon MD [address] [facility] [address] [place] [address] TREMORS/ MEDICARE, FOR LIFE 03/28/2024 8:30 AM EDT Office Visit Primary Care - [facility] [address] [place] [address] Cheo Santoyo DO [address] [place] [address] AWV 04/06/2024 9:45 AM EST Lab [place] - [facility] [address] [facility] [address] [place] [address] CBCMP,CEA,FEST 04/06/2024 10:15 AM EST Office Visit [place] - [facility] [address] [facility] [address] [place] [address] Georgi Butterfield MD [address] [place] [address] 6 MTH FU W/LABS, REV SCAN 04/13/2024 9:30 AM EST Office Visit Surgical Oncology - [facility] [address] 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 documented as of this encounter Visit Diagnoses Not on filedocumented in this encounter Care Teams Toaster Element Repairer Relationship Specialty Start Date End Date Baljit Ozuna MD PCP - General 03/12/22 06/17/22 documented as of this encounter
--- OUTSIDE RECORDS SUMMARY | 2024-01-11 22:17 | XMS_ITS | Encounter Summary ---
Author Organization Jose Alejandro Pantoja [facility] Address [address] [place] [address] Care Team Providers Care Steeplechase Jockey Name Role Phone Carter Santoyoony Moshe REYES Primary Care Provider [phone] Encounter Details Date Type Department Care Team (Late st Contact Info) Description 03/23/2022 Legacy Historical Encounter [facility] HISTORICAL Georgi Butterfield MD [address] [place] [address] Social History Tobacco Use Types Packs/Day Years Used Date Smoking Tobacco: Never Smokeless Tobacco: Never AUDIT-C Answer Date Recorded Q1: How often [...] Visit Neurology - [facility] [address] [facility] [address] [place] [address] Martell Calderon MD 214 [facility] [address] [place] [address] TREMORS/ MEDICARE, FOR LIFE 03/28/2024 8:30 AM EDT Office Visit Primary Care - [address] [address] Cheo Santoyo DO [address] [place] [address] AWV 04/06/2024 9:45 AM EST [facility] - [facility] [address] [facility] [address] [place] [address] CBCMP,CEA,FEST 04/06/2024 10:15 AM EST Office Visit [place] - [facility] [address] [facility] [address] [place] [address] Georgi Butterfield MD [address] [place] [address] 6 MTH FU W/LABS, REV SCAN 04/13/2024 9:30 AM EST Office Visit Surgical Oncology - [facility] [address] [facility] [address] [place] [address] Delvis Cheek MD 125 [facility] [address] [place] [address] 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 documented as of this encounter Visit Diagnoses Not on filedocumented in this encounter Care Teams Steeplechase Jockey Relationship Specialty Start Date End Date Cheo Santoyo DO [address] [place] [phone] PCP - General Family Medicine 07/06/23 documented as of this encounter
--- OUTSIDE RECORDS SUMMARY | 2024-01-11 22:17 | XMS_ITS | Encounter Summary ---
Author Organization Jose Alejandro [facility] Address [address] [place] [address] Care Team Providers Care Advertising Intern Name Role Phone Baljit Ozuna MD Primary Care Provider Reason for Referral * Imaging (Routine) - Closed Specialty Diagnoses / Procedures Referred By Rachid jimenez Referred To Contact Radiology Diagnoses Right hip pain Procedures MRI HIP RIGHT W CONTRAST MRI HIP RIGHT W CONTRAST MRI HIP RIGHT W CONTRAST Georgi Andersen PA [address] [place] [address] Referral ID Status Reason Start Date Expiration Date Visits Re quested Visits Authorized [id number] Closed 04/21/2022 04/21/2023 1 1 * Eval and Treat (Routine) - Closed Specialty Diagnoses / Procedures Referred By Rachid jimenez Referred To Contact Durable Medical Equipment Diagnoses Primary osteoarthritis of right knee Primary osteoarthritis of left knee Georgi Andersen PA [address] [place] [address] [employer] [employer] [address], [address] [place] [address] Referral ID Status Reason Start Date Expiration Date Visits Re quested Visits Authorized [id number] Closed [facility] 04/21/2022 04/21/2023 1 1 Scheduling Instructions Please dispense and fit patient for bilateral medial marketing business analyst knee braces. Comments Patient Information Name: Martínez Toribio : 1955 Address: [address] [facility] [address] Insurance: Payor: MEDICARE / Plan: MEDICARE PART A AND B / Product Type: *No Product type* / Insurance ID Number: This smartlink is not available in plain text. Reason for Visit * Reason Comments Follow-up Bilateral Supartz x5 Encounter Details Date Type Department Care Team (Late st Contact Info) Description 04/21/2022 8:30 AM EST Office Visit Orthopaedics - [address] Dr[address] [place] [phone] Georgi Andersen PA [address] [place] [address] Primary osteoarthritis of right knee (Primary Dx); Primary osteoarthritis of left knee; Right hip pain Social History Tobacco Use [...] PM EST documented as of this encounter Last Filed Vital Signs Vital Sign Reading Time Taken Comments Blood Pressure - - Pulse - - Temperature - - Respiratory Rate - - Oxygen Saturation - - Inhaled Oxygen Concentration - - Weight 99.8 kg (220 lb) 04/21/2022 8:50 AM EST Height 175.3 cm (5' 9) 04/21/2022 8:50 AM EST Body Mass Index 32.49 04/21/2022 8:50 AM EST documented in this encounter Progress Notes * Georgi Andersen PA - 04/21/2022 8:38 AM EST Patient presents for visco supplementation injection CC: Chief Complaint Patient presents with Follow-up Bilateral Supartz x5 HPI: Patient presents for visco supplementation injection into bilateral knee. Patient also history of right hip pain and had outside x-rays that demonstrated preserved joint spaces. He was told elsewherethat he may have a labral tear. He complains of right groin pain and mechanical joint symptoms. PE: Antalgic gait with cane. Varus deformities bilateral knees. Medial compartment joint line tenderness. Mildly painful ROM 0-130. Strength 5/5. Negative instability. Mildly painful medial Eli's. Right groin tenderness noted. Positive FADIR's, Ashley's, and hip scouring. Assessment: 1. Primary osteoarthritis of right knee 2. Primary osteoarthritis of left knee 3. Right hip pain Treatment Plan: Viscosupplementation injection in bilateral knees. Patient is requesting bilateral knee braces. We will do a referral to DME for bilateral medial marketing business analyst OA braces. He is also requesting an MRI of his right hip to evaluate for internal derangements. Procedures: Side: Bilateral Injection: Supartz Injection Number: 5th We discussed the patient the risks, benefits, [...] The patient has been instructed inpost-procedure care. Orders Placed This Encounter Procedures MRI HIP RIGHT W CONTRAST Standing Status: Future Standing Expiration Date: 04/21/2023 Order Specific Question: STAT Creatinine as needed: Answer: No Order Specific Question: Reason for exam: Answer: MRI ARTHROGRAM RIGHT HIP Order Specific Question: Reason for exam: Answer: DIAGNOSTIC INJ 1CC MARCAIN .5% WITH 1CC DEPOMEDROL 40 Order Specific Question: What is the sedation requirement? Answer: None [facility] - DURABLE MEDICAL EQUIPMENT Referral Priority: Routine Referral Type: Eval and Treat Referral Reason: DME Requested Specialty: Durable Medical Equipment Number of Visits Requested: 1 Follow-up: Follow up: 6 months and PRN or knees. After MRI right hip Patient to follow-up sooner with any problems, questions, concerns, or worsening symptoms. documented in this encounter Plan of Treatment Upcoming Encounters Date Type Department Care Team (Late st Contact Info) Description 03/24/2024 9:00 AM EDT Office Visit Neurology - [facility] [address] [facility] [address] [place] [address] Martell Calderon MD 2[address] [facility] [address] [place] [address] TREMORS/ MEDICARE, FOR LIFE 03/28/2024 8:30 AM EDT Office Visit Primary Care - [address] [address] [place] [address] [place] [address] AWV 04/06/2024 9:45 AM EST [facility] [facility] - [facility] [address] [facility] [address] [place] [address] CBCMP,CEA,FEST 04/06/2024 10:15 AM EST Office Visit [place] [facility] - [facility] [address] [facility] [address] [place] [address] Georgi Butterfield MD [address] [place] [address] 6 MTH FU W/LABS, REV SCAN 04/13/2024 9:30 AM EST Office Visit Surgical Oncology - [facility] [address] [facility] [address] [place] [address] Delvis Cheek MD 125 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 [address] [place] [address] annual visit from date of surgery May/Jul 2024 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 Scheduled Referrals Name Type Priority Associated Diagnoses Orde r Schedule [facility]SFPP - DURABLE MEDICAL EQUIPMENT Outpatient Referral Routine Primary osteoarthritis of right knee Primary osteoarthritis of left knee Ordered: 04/21/2022 documented as of this encounter Results * MRI HIP RIGHT [...] intra articular injection of gadolinium contrast. Small uqhmz-[id number] sagittal T1 fat-sat. Large field of view [...] after intraarticular injection of gadolinium contrast. Small wsmrs-gz-pcsh sagittal T1 fat-sat.Large field of view coronal [...] 2. No fracture or AVN. Georgi [facility] MRI ORDERABLES documented in this encounter Visit Diagnoses Diagnosis Primary osteoarthritis of right knee- Primary Primary localized osteoarthrosis, lower leg Primary osteoarthritis of left knee Primary localized osteoarthrosis, lower leg Right hip pain Pain in joint, pelvic region and thigh Right hip pain Pain in joint, pelvic region and thigh documented in this encounter Care Teams Advertising Intern Relationship Specialty Start Date End Date Baljit Ozuna MD PCP - General 03/12/22 06/17/22 documented as of this encounter
--- OUTSIDE RECORDS SUMMARY | 2024-01-11 22:17 | XMS_ITS | Encounter Summary ---
Author Organization Jose Alejandro Raymundolinnea [facility] Address [address] [place] [address] Care Team Providers Care E D Tech Name Role Phone Baljit Ozuna MD Primary Care Provider [phone] Reason for Visit * Reason Onset Date Comments Advice Only 04/15/2022 Encounter Details Date Type Department Care Team (Late Contact Info) Description 04/15/2022 Telephone Colorectal Surgery - [facility] 125 [facility] [address] [place] [address] Delvis Cheek MD 125 [facility] [address] [place] [address] Advice Only Social History Tobacco Use Types Packs/Day Years [...] Dr. [address] [place] [address] Martell Calderon MD 2144 [facility] [address] [place] [address] TREMORS/ MEDICARE, FOR LIFE 03/28/2024 8:30 AM EDT Office Visit Primary Care - [address] [address] Cheo Santoyo DO [address] [place] [phone] AWV 04/06/2024 9:45 AM EST Lab [place] [facility] - [facility] [address] [facility] [address] [place] [address] CBCMP,CEA,FEST 04/06/2024 10:15 AM EST Office Visit [place] [facility] - [facility] [address] [facility] [address] [place] [address] Georgi Butterfield MD [address] [place] [address] 6 MTH FU W/LABS, REV SCAN 04/13/2024 9:30 AM EST Office Visit Surgical Oncology - [facility] [address] [facility] [address] [place] [address] Delvis Cheek MD 125 [facility] [address] [place] [address] 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 documented as of this encounter Visit Diagnoses Not on filedocumented in this encounter Care Teams E D Tech Relationship Specialty Start Date End Date Baljit Ozuna MD PCP - General 03/12/22 06/17/22 documented as of this encounter
--- OUTSIDE RECORDS SUMMARY | 2024-01-11 22:17 | XMS_ITS | Encounter Summary ---
Author Organization Jose Alejandro Kit [facility] Address [address] [place] [address] Care Team Providers Care Foundry Metallurgist Name Role Phone Baljit Ozuna MD Primary Care Provider [phone] Encounter Details Date Type Department Care Team (Late st Contact Info) Description 04/09/2022 Abstract [place] [facility] - [facility]. [address] [facility] [address] [place] [address] Georgi Butterfield MD [address] [place] [address] Social History Tobacco Use Types [...] Dr. [address] [place] [address] Martell Calderon MD [address] [facility] [address] [place] [address] TREMORS/ MEDICARE, FOR LIFE 03/28/2024 8:30 AM EDT Office Visit Primary Care - [facility] [address] [place] [address] Cheo Santoyo DO [address] [place] [phone] AWV 04/06/2024 9:45 AM EST Lab [place] [facility] - [facility] [address] [facility] [address] [place] [address] CBCMP,CEA,FEST 04/06/2024 10:15 AM EST Office Visit [place] [facility] - [facility] [address] [facility] [address] [place] [address] Georgi Butterfield MD 3510 [facility] [address] [place], [place] [address] 6 MTH FU W/LABS, REV SCAN 04/13/2024 9:30 AM EST Office Visit Surgical Oncology - [facility] [address] [facility] [address] [place] [address] Delvis Cheek MD 125 [facility] 660 [place] [address] 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 documented as of this encounter Visit Diagnoses Not on filedocumented in this encounter Care Teams Foundry Metallurgist Relationship Specialty Start Date End Date Baljit Ozuna MD PCP - General 03/12/22 06/17/22 documented as of this encounter
--- OUTSIDE RECORDS SUMMARY | 2024-01-11 22:17 | XMS_ITS | Encounter Summary ---
Author Organization Jose Alejandro Kit [facility] Address [address] [place] [address] Care Team Providers Care Judicial Registrar Name Role Phone Felicitas Monaco MD Primary Care Provider [phone] Encounter Details Date Type Department Care Team (Late st Contact Info) Description 07/02/2022 Abstract Primary Care - [address] [place] [address] Felicitas Monaco MD [address] [place] [address] Social History Tobacco Use Types [...] [address] [place] [address] Martell Calderon MD 2144 [facility] [address] [place], [place] [address] TREMORS/ MEDICARE, FOR LIFE 03/28/2024 8:30 AM EDT Office Visit Primary Care - [facility] [address] [place] [address] Cheo Santoyo DO [address]12 [place] [address] AWV 04/06/2024 9:45 AM EST Lab [place] [facility] - [facility] [address] [facility] [address] [place] [address] CBCMP,CEA,FEST 04/06/2024 10:15 AM EST Office Visit [place] [facility] - [facility] [address] [facility] [address] [place] [address] Georgi Butterfield MD 3510 [facility] [address] [place], [place] [phone] 6 MTH FU W/LABS, REV SCAN 04/13/2024 9:30 AM EST Office Visit Surgical Oncology - [facility] [address] [facility] [address] [place] [address] Delvis Cheek MD 125 [facility] [address] [place] [address] 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 documented as of this encounter Visit Diagnoses Not on filedocumented in this encounter Care Teams Judicial Registrar Relationship Specialty Start Date End Date Felicitas Monaco MD PCP - General Family Medicine 06/18/22 07/05/23 documented as of this encounter
--- OUTSIDE RECORDS SUMMARY | 2024-01-11 22:17 | XMS_ITS | Encounter Summary ---
Author Organization Jose Alejandro [facility]iriano [facility] Address [address] [place] [address] Care Team Providers Care Office Assistant Name Role Phone Unavailable Primary Care Provider Unavailabl e Encounter Details Date Type Department Care Team (Late st Contact Info) Description 11/19/2021 Orders Only [facility] Quality Admin [address] [place], [place] [address] Rs Automatic Reconciliation, MD sara Social History Tobacco Use Types Packs/Day Years [...] Office Visit Neurology - [facility] [address] [facility] [address] [place] [address] Martell Calderon MD [address] [facility] [address] [place] [address] TREMORS/ MEDICARE, FOR LIFE 03/28/2024 8:30 AM EDT Office Visit Primary Care - [address] [address] Cheo Santoyo DO [address] [place] [address] AWV 04/06/2024 9:45 AM EST Lab [place] [facility] - [facility] [address] [facility] [address] [place] [address] CBCMP,CEA,FEST 04/06/2024 10:15 AM EST Office Visit [place] [facility] - [facility] [address] [facility] [address] [place] [address] Georgi Butterfield MD [address] [place] [address] 6 MTH FU W/LABS, REV SCAN 04/13/2024 9:30 AM EST Office Visit Surgical Oncology - [facility] [address] [facility] [address] [place] [address] Delvis Cheek MD 125 [facility] 660 [place] [address] 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 documented as of this encounter Visit Diagnoses Not on filedocumented in this encounter
--- OUTSIDE RECORDS SUMMARY | 2024-01-11 22:17 | XMS_ITS | Encounter Summary ---
Author Organization [facility] Address [address] [place] [address] Care Team Providers Care Longwall Foreman Name Role Phone Baljit Ozuna MD Primary Care Provider [phone] Encounter Details Date Type Department Care Team (Late st Contact Info) Description 03/23/2022 10:07 AM EDT - 03/23/2022 11:59 PM EDT Hospital Encounter RS HISTORICAL CONVERSIONS [address] [place] [address] Georgi Butterfield MD 3510 [facility] [address] [place], [place] [id number] Social History Tobacco Use Types Packs/Day Years [...] 0, 10/19/19 10:31:00 EDT, Tab 10/19/2019 09/21/2022 tadalafil (CIALIS) 20 MG tablet Take 1 tablet by mouth as needed for Erectile Dysfunction 06/11/2020 07/06/2023 atorvastatin (LIPITOR) 40 MG tablet 1 tablet [...] Office Visit Neurology - [facility] [address] [facility] [address] [place] [address] Martell Calderon MD 2144 [facility] [address] [place], [place] [id number] TREMORS/ MEDICARE, FOR LIFE 03/28/2024 8:30 AM EDT Office Visit Primary Care - [address] [phone] Cheo Santoyo, [address] [address] AWV 04/06/2024 9:45 AM EST Lab [facility] - [facility] [address] [facility] [address] [place] [address] CBCMP,CEA,FEST 04/06/2024 10:15 AM EST Office Visit [facility] - [facility] [address] [facility] [address] [place] [address] Georgi Butterfield MD [address] [place] [address] 6 MTH FU W/LABS, REV SCAN 04/13/2024 9:30 AM EST Office Visit Surgical Oncology - [facility] 20[address] [facility] [address] [place] [address] Delvis Cheek MD 125 [facility] [address] [place] [phone] 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 documented as of this encounter Visit Diagnoses Not on filedocumented in this encounter Care Teams Longwall Foreman Relationship Specialty Start Date End Date Baljit Ozuna MD PCP - General 03/12/22 06/17/22 documented as of this encounter
--- OUTSIDE RECORDS SUMMARY | 2024-01-11 22:17 | XMS_ITS | Encounter Summary ---
Author Organization [facility] Address [address] [place] [address] Care Team Providers Care Logistics Center Manager Name Role Phone Baljit Ozuna MD Primary Care Provider [phone] Reason for Visit * Reason Comments Knee Pain Bilateral knee- Left knee Arthroscope 10/13/21-Patient stated that his knee is better but he still having pain. He also gets swelling. He also stated that the last injection of Durolane that he got in August didn't help at all. Right Knee- is doing okay. Encounter Details Date Type Department Care Team (Late st Contact Info) Description 03/17/2022 9:15 AM EDT Office Visit Orthopaedics - [address] [place] [phone] Georgi Andersen PA [address] [place] [address] Primary osteoarthritis of left knee (Primary Dx); Primary osteoarthritis of right knee; Degenerative tear of medial meniscus of left knee; Degenerative tear of lateral meniscus of left knee; History of arthroscopy of left knee; History of arthroscopy of right knee Social History Tobacco Use [...] - - Weight 95.3 kg (210 lb) 03/17/2022 9:14 AM EDT Height 175.3 cm (5' 9) 03/17/2022 9:14 AM EDT Body Mass Index 31.01 03/17/2022 9:14 AM EDT documented in this encounter Progress Notes * Georgi Andersen PA - 03/17/2022 9:34 AM EDT Images from the original note were not included. ESTABLISHED PATIENT CC: Knee Pain (Bilateral knee- Left knee Arthroscope 10/13/21-Patient stated that his knee is better buthe still having pain. He also gets swelling. He also stated that the last injection of Durolane that he got in August didn't help at all. //Right Knee- is doing okay. /) HPI: Martínez Toribio is a 67 y.o. year old male who presents for evaluation of bilateral knees. He has a history of arthritis and meniscus tears. He had a partial medial lateral meniscectomy and shaving chondroplasty on his left knee on 10/13/2021. He is still complaining of medial sided knee pain on the left. He also has had 3 knee scopes on his right knee. He states his left knee is more symptomaticthan his right at this time. Denies any recent injuries. PAST MEDICAL HISTORY: No past medical history on file. PAST SURGICAL HISTORY: No past surgical history on file. FAMILY HISTORY: No family history on file. SOCIAL HISTORY: Social History Occupational History Not on file Tobacco Use Smoking status: Never Smokeless tobacco: Never Substance and Sexual Activity Alcohol use: Not on file Drug use: Not on file Sexual activity: Not on file MEDICATIONS: Current Outpatient Medications Medication Sig Dispense Refill atorvastatin (LIPITOR) 40 MG tablet 1 tablet Orally Once a day for 30 day(s) Dulaglutide (TRULICITY) 0.75 MG/0.5ML SOPN as directed Subcutaneous empagliflozin (JARDIANCE) 25 MG tablet Orally esomeprazole (NEXIUM) 40 MG delayed release capsule 1 capsule metFORMIN (GLUCOPHAGE) 1000 MG tablet 1 tablet with a meal Orally bid olmesartan (BENICAR) 20 MG tablet 1 tablet Orally Once a day pantoprazole (PROTONIX) 40 MG tablet 1 tablet Orally Once a day for 30 day(s) No current facility-administered medications for this visit. ALLERGIES: Allergies Allergen Reactions Morphine Other reaction(s): migraines, hallucinations, itching REVIEW OF SYSTEMS: ROS Reviewed and negative Musculoskeletal: see HPI Physical Examination: Ht 5' 9 (1.753 m) Wt 210 lb (95.3 kg) BMI 31.01 kg/m?? General: Alert, awake, orientated. No acute distress MSK Exam: LEFT KNEE: Observation Gait mildly antalgic Alignment normal Wound/Incision negative Swelling mildly positive Erythema negative Effusion negative Ecchymosis negative Palpation: Patellofemoral joint mildly positive Medial Joint Line positive Lateral Joint Line mildly positive Range of motion Extension 0 Flexion 120, painful Crepitus negative Patellar Tracking normal Strength: Extension 5/5 Flexion 5/5 Special tests: Patella Compression mildly positive Patellar Apprehension negative Marleny's stable Anterior Drawer stable Pivot Shift negative Posterior Drawer stable Varus at 0' stable Varus at 30' stable Valgus at 0' stable Valgus at 30' stable Medial Eli's positive Lateral Eli's mildly positive RIGHT KNEE: Observation Alignment normal Wound/Incision negative Swelling mildly positive Erythema negative Effusion negative Ecchymosis negative Palpation: Patellofemoral joint mildly positive Medial Joint Line positive Lateral Joint Line mildly positive Range of motion Extension 0 Flexion 120 Crepitus negative Patellar Tracking normal Strength: Extension 5/5 Flexion 5/5 Special tests: Patella Compression mildly positive Patellar Apprehension negative Marleny's stable Anterior Drawer stable Pivot Shift negative Posterior Drawer stable Varus at 0' stable Varus at 30' stable Valgus at 0' stable Valgus at 30' stable Medial Eli's mildly positive Lateral Eli's mildly positive Neurovascular exam: 2+ DP/PT Pulses, Brisk capillary refill Sensation intact light touch distally Radiology: MRI Knee w/o Contrast Right ######################################################### --------- ADDENDUM -------- ######################################################### Please note there is some suggestion of underlying intramuscular edema involving the medial head of the gastrocnemius muscle which appears somewhat asymmetric compared to the lateral head of the gastrocnemius muscle. Findings can be seen in setting of denervation. Releasing Radiologist: ROSALBA MALHOTRA Released Date and Time: 10/04/21 22:25 MRI right knee without contrast: 10/03/21 INDICATION: M25.561;M25.561. Knee pain COMPARISON: Knee MRI 04/24/2015 TECHNIQUE: Routine noncontrast protocol (Axial fat saturated T2, coronal T1 and fat saturated T2, oblique sagittal SE PD and fat saturated T2 images) FINDINGS: Medial compartment: There is significant blunting throughout the posterior horn which is likely at least partially related to prior surgery. Findings suspicious for at least partial thickness tearing of the posterior horn, just proximal to the root attachment. Area of high-grade partial-thickness chondral loss involving the posterior weightbearing medial femoral condyle extending for approximately 1.3 x 1.5 cm. Mild underlying subchondral marrow edema. Moderate surface fibrillation involving the more central and anterior weightbearing medial femoral condyle. There is diffuse thinning of the anterolateral tibial plateau articular cartilage with underlying marrow edema. No subchondral fracture. Lateral compartment: Findings suspicious for at least partial thickness horizontal undersurface tear the anterior horn and in the anterior root lateral meniscus. Probable adjacent parameniscal cyst measuring up to 8 x 7 mm . Small area of near full-thickness chondral loss involving the posterior weightbearing lateral femoral condyle extending for 6 x 5 mm. No underlying subchondral marrow edema. Tibial plateau articular cartilage is grossly intact Patellofemoral compartment: Diffuse chondral thinning throughout the patellofemoral compartment. Throughout. Area of partial-thickness chondral loss involving the deep medial patella facet measuring up to 6 mm. Mild underlying subchondral marrow edema. Multiple areas of high-grade partial-thickness chondral loss throughout the lateral trochlear facet and trochlear groove. Osteoporosis is no underlying subchondral marrow edema. Anterior cruciate ligament: Intact Posterior cruciate ligament: Intact Medial collateral ligament: Intact. Mild surrounding edema is likely reactive. Lateral collateral ligament : Intact Popliteus and posterior lateral corner structures: Intact Retinacular complex: Intact Extensor tendons: Intact Effusion: Moderate size knee joint effusion. Small popliteal cyst. No intra-articular loose body. Hoffa's fat: Normal IMPRESSION: 1. Significant blunting throughout the posterior horn medial meniscus which is presumably postsurgical. There is however suspected superimposed complex tear, just proximal to the root attachment. 2. 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 Mild subchondral marrow edema without subchondral fracture. 3. Findings suspicious for horizontal undersurface tear involving the anterior horn and root attachment lateral meniscus with likely adjacent parameniscal cyst. 4. Moderate chondromalacia of the patellofemoral compartment Releasing Radiologist: ROSALBA MALHOTRA Released Date and Time: 10/04/21 22:10 Assessment: 1. Primary osteoarthritis of left knee 2. Primary osteoarthritis of right knee 3. 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 Degenerative tear of lateral meniscus of left knee 5. History of arthroscopy of left knee 6. History of arthroscopy of right knee Treatment Plan: Treatment options were discussed with patient. We discussed continued conservative intervention forboth of his knees. We also discussed total knee arthroplasties, but he prefers to hold off for now.We also discussed trying MURPHY injections. He prefers trying Supartz. He cannot take NSAIDS to do Ryan's and prior esophageal cancer. Procedures: Side: Bilateral Injection: Supartz Injection Number: 1st We discussed [...] patient has been instructed inpost-procedure care. Follow-up: 1 week Patient to follow-up sooner with any problems, questions, concerns, or worsening symptoms. documented in this encounter Plan of Treatment Upcoming Encounters Date Type Department Care Team (Late st Contact Info) Description 03/24/2024 9:00 AM EDT Office Visit Neurology - [facility] [address] [facility] [address] [place] [phone] Martell Calderon MD 2144 [facility] [address] [place] [address] TREMORS/ MEDICARE, FOR LIFE 03/28/2024 8:30 AM EDT Office Visit Primary Care - [address] [phone] Cheo Santoyo, [address] [address] AWV 04/06/2024 9:45 AM EST Lab [facility] - [facility] [address] [facility] [address] [place] [address] CBCMP,CEA,FEST 04/06/2024 10:15 AM EST Office Visit [facility] - [facility] [address] [facility] [address] [place] [address] Georgi Butterfield MD 3510 [facility] [address] [place] [address] 6 MTH FU W/LABS, REV SCAN 04/13/2024 9:30 AM EST Office Visit Surgical Oncology - [facility] [address] [facility] [address] [place] [phone] Delvis Cheek MD [address] 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 documented as of this encounter Visit Diagnoses Diagnosis Primary osteoarthritis of left knee- Primary Primary localized osteoarthrosis, lower leg Primary osteoarthritis of right knee Primary localized osteoarthrosis, lower leg Degenerative tear of medial meniscus of left knee Other and unspecified derangement of medial meniscus Degenerative tear of lateral meniscus of left knee Derangement of lateral meniscus, unspecified History of arthroscopy of left knee Other postprocedural status History of arthroscopy of right knee Other postprocedural status documented in this encounter Administered Medications Inactive Administered Medications - up to 3 most recent administrations Medication Order MAR Action Action Date Dose Rate Site sodium hyaluronate (SUPARTZ) injection 25 mg 25 mg, Intra-artICUlar, ONCE, 1 dose, On Wed03/17/22 at 1030 Given 03/17/2022 10:09 AM EDT 25 mg sodium hyaluronate (SUPARTZ) injection 25 mg 25 mg, Intra-artICUlar, ONCE, 1 dose, On Wed03/17/22 at 1030 Given 03/17/2022 10:08 AM EDT 25 mg documented in this encounter Care Teams Logistics Center Manager Relationship Specialty Start Date End Date Baljit Ozuna MD PCP - General 03/12/22 06/17/22 documented as of this encounter
--- OUTSIDE RECORDS SUMMARY | 2024-01-11 22:17 | XMS_ITS | Encounter Summary ---
Author Organization [facility] Ale[facility]andro [facility] Address [address] [place] [address] Care Team Providers Care Community Health Representative Name Role Phone Baljit Ozuna MD Primary Care Provider [phone] Reason for Visit * Reason Onset Date Comments Injections 05/15/202206/18 RT HIP IA INJ Encounter Details Date Type Department Care Team (Late st Contact Info) Description 05/15/2022 Telephone Neurosurgery & Spine - [address] [facility] [address] [place] [address] Martinez Guthrie MD 2145 [facility] [address] [place] [address] Injections (06/18 RT HIP IA INJ) Social History Tobacco Use Types Packs/Day Years [...] Office Visit Neurology - [address] [facility] [address] [place] [address] Martell Calderon MD [address] [facility] [address] [place] [address] TREMORS/ MEDICARE, FOR LIFE 03/28/2024 8:30 AM EDT Office Visit Primary Care - [address] [phone] Cheo Santoyo, DO [address] [place] [address] AWV 04/06/2024 9:45 AM EST Lab [place] [facility] - [facility] 20[address] [facility] [address] [place] [phone] CBCMP,CEA,FEST 04/06/2024 10:15 AM EST Office Visit [facility] - [facility] 20[address] [facility] [address] [place] [phone] Georgi Butterfield MD 3510 [facility] [address] [place], [place] [phone] 6 MTH FU W/LABS, REV SCAN 04/13/2024 9:30 AM EST Office Visit Surgical Oncology - [facility] 20[address] [facility] [address] [place] [address] Delvis Cheek MD 125 [facility] [address] [place] [phone] 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 documented as of this encounter Visit Diagnoses Not on filedocumented in this encounter Care Teams Community Health Representative Relationship Specialty Start Date End Date Baljit Ozuna MD PCP - General 03/12/22 06/17/22 documented as of this encounter
--- OUTSIDE RECORDS SUMMARY | 2024-01-11 22:17 | XMS_ITS | Encounter Summary ---
Author Organization Jose Alejandro [facility] Address [address] [place] [address] Care Team Providers Care Pump Servicer Supervisor Name Role Phone Baljit Ozuna MD Primary Care Provider [phone] Reason for Visit * Treatment Plan and Therapy Plan (Routine) - Closed Specialty Diagnoses / Procedures Referred By Contac t Referred To Contact Diagnoses Iron deficiency anemia, unspecified iron deficiency anemia type Georgi Butterfield MD [address] [place] [address] [facility] [address] [facility] 100 [place] [address] Referral ID Status Reason Start Date Expiration Date Visits Re quested Visits Authorized [id number] Closed 04/13/2022 04/13/2023 1 2 Encounter Details Date Type Department Care Team (Latest Contact Info) Description 04/13/2022 1:36 PM EST - 04/13/2022 11:59 PM [email or web address] Hospital Encounter [facility] [address] [facility] [address] [place] [address] Iron deficiency anemia, unspecified iron deficiency anemia type (Primary Dx) Discharge Disposition: Home or Self Care Social History Tobacco Use Types Packs/Day Years Used Date Smoking Tobacco: Former Cigarettes Smokeless Tobacco: Never Tobacco Cessation:Counseling Given: Not Answered Alcohol Use Standard Drinks/Week Comments Yes 2 [...] Taken Comments Blood Pressure - - Pulse 91 04/13/2022 2:16 PM EST Temperature 36.3 ??C (97.4 ??F) 04/13/2022 2:16 PM ES T Respiratory Rate 16 04/13/2022 2:16 PM EST Oxygen Saturation 96% 04/13/2022 2:16 PM EST Inhaled Oxygen Concentration - - Weight 101.7 kg (224 lb 3.2 oz) 04/13/2022 2:16 PM EST Height 175.3 cm (5' 9) 04/13/2022 2:16 PM EST Body Mass Index 33.11 04/13/2022 2:16 PM EST documented in this encounter Medications at Time [...] 9:00 AM EDT Office Visit Neurology - [facility] [address] [facility] [address] [place] [address] Martell Calderon MD 2144 [facility] [address] [place] [address] TREMORS/ MEDICARE, FOR LIFE 03/28/2024 8:30 AM EDT Office Visit Primary Care - [address] [address] [place] [address] [place] [phone] AWV 04/06/2024 9:45 AM EST Lab [facility] - [facility] [address] [facility] [address] [place] [address] CBCMP,CEA,FEST 04/06/2024 10:15 AM EST Office Visit [facility] - [facility] [address] [facility] [address] [place] [address] Georgi Butterfield MD [address] [place] [address] 6 MTH FU W/LABS, REV SCAN 04/13/2024 9:30 AM EST Office Visit Surgical Oncology - [facility] [address] [facility] [address] [place] [address] Delvis Cheek MD 125 [facility] [address] [place] [phone] 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 documented as of this encounter Visit Diagnoses Diagnosis Iron deficiency anemia, unspecified iron deficiency anemia type- Primary documented in this encounter Administered Medications Inactive Administered Medications - up to 3 most recent administrations Medication Order MAR Action Action Date Dose Rate Site ferric carboxymaltose (INJECTAFER) 750 mg in sodium chloride 0.9 % 250 mL IVPB 750 mg, IntraVENous, at 870 mL/hr, Administer over 20 Minutes, ONCE, On 04/13/22 at 1445, For 1 dose, Observe for signs and symptoms of hypersensitivity and/or anaphylactic-type reactions per institutional standard during and following administration. New Bag 04/13/2022 2:37 PM EST 750 mg 870 mL/hr documented in this encounter Care Teams Pump Servicer Supervisor Relationship Specialty Start Date End Date Baljit Ozuna MD PCP - General 03/12/22 06/17/22 documented as of this encounter
--- OUTSIDE RECORDS SUMMARY | 2024-01-11 22:17 | XMS_ITS | Encounter Summary ---
Author Organization Jose Alejandro Pantoja [facility] Address [address] [place] [address] Care Team Providers Care Rn Hemodialysis Charge Name Role Phone Cheo Santoyo Primary Care Provider [phone] Encounter Details Date Type Department Care Team (Late st Contact Info) Description 10/23/2021 Legacy Historical Encounter [facility] HISTORICAL CONVERSIONS [address] [place] [address] Delvis Cheek MD [address] [address] Social History Tobacco Use Types Packs/Day Years [...] 9:00 AM EDT Office Visit Neurology - [facility] [address] [facility] [address] [place] [address] Martell Calderon MD 214 [facility] [address] [place] [address] TREMORS/ MEDICARE, FOR LIFE 03/28/2024 8:30 AM EDT Office Visit Primary Care - [address] [address] [place] [address] [place] [address] AWV 04/06/2024 9:45 AM EST Lab [facility] - [facility] [address] [facility] [address] [place] [address] CBCMP,CEA,FEST 04/06/2024 10:15 AM EST Office Visit [facility] - [facility] [address] [facility] [address] [place] [address] Georgi Butterfield MD 3510 [facility] [address] [place] [address] 6 MTH FU W/LABS, REV SCAN 04/13/2024 9:30 AM EST Office Visit Surgical Oncology - [facility] [address] [facility] [address] [place] [address] Delvis Cheek MD 125 [facility] 660 [place] [address] 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 documented as of this encounter Visit Diagnoses Not on filedocumented in this encounter Care Teams Rn Hemodialysis Charge Relationship Specialty Start Date End Date Cheo Santoyo DO [address] [place] [phone] PCP - General Family Medicine 07/06/23 documented as of this encounter
--- OUTSIDE RECORDS SUMMARY | 2024-01-11 22:17 | XMS_ITS | Encounter Summary ---
Author Organization Jose Alejandro Pantoja [facility] Address [address] [place] [address] Care Team Providers Care Senior Automation Engineer Name Role Phone Baljit Ozuna MD Primary Care Provider [phone] Encounter Details Date Type Department Care Team (Late st Contact Info) Description 03/23/2022 10:07 AM EDT - 03/23/2022 11:59 PM EDT Hospital Encounter [facility] HISTORICAL CONVERSIONS [address] [place] [address] Georgi Butterfield MD 3510 [facility] [address] [place], [place] [phone] Social History Tobacco Use Types Packs/Day Years [...] Neurology - [facility] [address] [facility] [address] [place] [address] Martell Calderon MD 2144 [facility] [address] [place], [place] [address] TREMORS/ MEDICARE, FOR LIFE 03/28/2024 8:30 AM EDT Office Visit Primary Care - [address] [phone] Cheo Santoyo, [address] [address] AWV 04/06/2024 9:45 AM EST [facility] - [facility] [address] [facility] [address] [place] [address] CBCMP,CEA,FEST 04/06/2024 10:15 AM EST Office Visit [facility] - [facility] [address] [facility] [address] [place] [address] Georgi Butterfield MD [address] [place] [address] 6 MTH FU W/LABS, REV SCAN 04/13/2024 9:30 AM EST Office Visit Surgical Oncology - [facility] [address] [facility] [address] [place] [address] Delvis Cheek MD 125 [facility] 660 [place] [address] 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 [address] [place] [address] Karly Bautista, BURT 180 [facility] 301 [place] [address] annual visit from date of surgery May/Jul 2024 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 documented as of this encounter Visit Diagnoses Not on filedocumented in this encounter Care Teams Senior Automation Engineer Relationship Specialty Start Date End Date Baljit Ozuna MD PCP - General 03/12/22 06/17/22 documented as of this encounter
--- OUTSIDE RECORDS SUMMARY | 2024-01-11 22:17 | XMS_ITS | Encounter Summary ---
Author Organization Jose Alejandro Kit [facility] Address [address] [place] [address] Care Team Providers Care Briquette Maker Name Role Phone Felicitas Monaco MD Primary Care Provider [phone] Reason for Visit * Auth/Cert (Routine) Specialty Diagnoses / Procedures Referred By Rachid reid Referred To Contact Diagnoses Unilateral primary osteoarthritis, right hip Procedures IN ARTHROCENTESIS ASPIR&/INJ MAJOR JT/BURSA W/O US Martinez Guthrie MD [address] [place] [phone] Referral ID Status Reason Start Date Expiration Date Visits Re quested Visits Authorized [id number] 05/26/2022 1 1 Encounter Details Date Type Department Care Team (Late st Contact Info) Description 06/18/2022 8:10 AM EST - 06/18/2022 8:20 AM EST Surgery [facility] OR [address] [place], [place] [id number] Martinez Guthrie MD [address] [place] [phone] INTRA ARTICULAR HIP RIGHT HIP Surgery Details Date/Time Status Location OR Service Patient Class Case Class Case Type Trauma Case? 06/18/2022 8:10 AM Posted [facility] PA[facility] MANAGEMENT [facility] PAIN 01 Pain Management Outpatient Surgery Elective No Panel 1 Procedure LRB Anes Op Region Wound Class Comments INTRA ARTICULAR HIP RIGHT HIP Right Other Class I Clean Surgeon Surgeon Role Service [...] mg by mouth daily 1/2 tablet daily 03/16/202 3 pantoprazole (PROTONIX) 40 MG tablet 1 [...] 9:00 AM EDT Office Visit Neurology - [facility] [address] [facility] [address] [place] [address] Martell Calderon MD 2144 [facility] [address] [place] [address] TREMORS/ MEDICARE, FOR LIFE 03/28/2024 8:30 AM EDT Office Visit Primary Care - [address] [address] Cheo Santoyo DO 1112 [place] [address] AWV 04/06/2024 9:45 AM EST [facility] - [facility] 2084 [facility] [address] [place] [address] CBCMP,CEA,FEST 04/06/2024 10:15 AM EST Office Visit [facility] - [facility] [address] [facility] [address] [place] [address] Georgi Butterfield MD 3510 [facility] [address] [place] [address] 6 MTH FU W/LABS, REV SCAN 04/13/2024 9:30 AM EST Office Visit Surgical Oncology - [facility] [address] [facility] [address] [place] [address] Delvis Cheek MD 125 [facility] [address] [place] [address] 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 documented as of this encounter Procedures Procedure Name Priority Date/Time Associated Diagnosis Comments IN ARTHROCENTESIS ASPIR&/INJ MAJOR JT/BURSA W/O US 06/18/2022 8:27 AM EST Primary osteoarthritis of right hip documented in this encounter Visit Diagnoses Diagnosis Primary osteoarthritis of right hip Primary localized osteoarthrosis, pelvic region and thigh documented in this encounter Administered Medications Inactive Administered Medications - up to 3 most recent administrations Medication Order MAR Action Action Date Dose Rate Site bupivacaine (PF) (MARCAINE) 0.25 % injection PRN, Starting on Domenica 06/18/22 at 0830, Until Domenica 06/18/22 at 0830, Intra-op Given 06/18/2022 8:30 AM EST 10 mLs Hip Right methylPREDNISolone acetate (DEPO-MEDROL) injection PRN, Starting on Domenica 06/18/22 at 0829, Until Domenica 06/18/22 at 0830, Intra-op Given 06/18/2022 8:29 AM EST 80 mg Hip Right documented in this encounter Active and [...] MD) documented in this encounter Care Teams Briquette Maker Relationship Specialty Start Date End Date Felicitas Monaco MD PCP - General Family Medicine 06/18/22 07/05/23 documented as of this encounter
--- OUTSIDE RECORDS SUMMARY | 2024-01-11 22:17 | XMS_ITS | Encounter Summary ---
Author Organization Jose Alejandro [facility] Address [address] [employer] [place] [address] Care Team Providers Care Adoption Social Worker Name Role Phone Baljit Ozuna MD Primary Care Provider [phone] Encounter Details Date Type Department Care Team (Late st Contact Info) Description 03/27/2022 Abstract Surgical Oncology - [facility] 125 [facility] 660 [place] [address] Delvis Cheek MD 125 [facility] [address] [place] [address] Social History Tobacco Use Types Packs/Day [...] Dr. [address] [place] [address] Martell Calderon MD [address] [facility] [address] [place] [address] TREMORS/ MEDICARE, FOR LIFE 03/28/2024 8:30 AM EDT Office Visit Primary Care - [facility] [address] [place] [address] Cheo Santoyo DO 1112 [place] [phone] AWV 04/06/2024 9:45 AM EST Lab [facility] - [facility] [address] [facility] [address] [place] [address] CBCMP,CEA,FEST 04/06/2024 10:15 AM EST Office Visit [facility] - [facility] [address] [facility] [address] [place] [address] Georgi Butterfield MD 3510 [facility] [address] [place], [place] [phone] 6 MTH FU W/LABS, REV SCAN 04/13/2024 9:30 AM EST Office Visit Surgical Oncology - 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 documented as of this encounter Visit Diagnoses Not on filedocumented in this encounter Care Teams Adoption Social Worker Relationship Specialty Start Date End Date Baljit Ozuna MD PCP - General 03/12/22 06/17/22 documented as of this encounter
--- OUTSIDE RECORDS SUMMARY | 2024-01-11 22:17 | XMS_ITS | Encounter Summary ---
Author Organization Jose Alejandro [facility] Address [address] [place] [address] Care Team Providers Care Scale Adjuster Name Role Phone Baljit Ozuna MD Primary Care Provider [phone] Reason for Referral * Other (Routine) - Closed Specialty Diagnoses / Procedures Referred By Rachid jimenez Referred To Contact Diagnoses Primary osteoarthritis of left knee Primary osteoarthritis of right knee Procedures OR ARTHROCENTESIS ASPIR&/INJ MAJOR JT/BURSA W/O Georgi Andersen PA [address] [place] [address] Referral ID Status Reason Start Date Expiration Date Visits Re quested Visits Authorized [id number] Closed 03/31/2022 03/31/2023 1 1 Reason for Visit * Reason Comments Injections Bilateral Supartz #2 Encounter Details Date Type Department Care Team (Late st Contact Info) Description 03/31/2022 8:30 AM EDT Nurse Only Orthopaedics - [address] [place] [phone] Georgi Andersen PA [address] [place] [address] Primary osteoarthritis of left knee (Primary Dx); [...] - - Weight 95.3 kg (210 lb) 03/31/2022 8:28 AM EDT Height 175.3 cm (5' 9) 03/31/2022 8:28 AM EDT Body Mass Index 31.01 03/31/2022 8:28 AM EDT documented in this encounter Progress Notes * Georgi Andersen PA - 03/31/2022 8:38 AM EDT Patient presents for visco supplementation injection CC: Chief Complaint Patient presents with Injections Bilateral Supartz #2 HPI: Patient presents for visco supplementation injection into bilateral knees Assessment: 1. Primary osteoarthritis of left knee 2. Primary osteoarthritis of right knee Treatment Plan: Viscosupplementation injection in bilateral knees. Procedures: Side: Bilateral Injection: Injection Number: We discussed the patient the risks, benefits, [...] 9:00 AM EDT Office Visit Neurology - [facility] [address] [facility] [address] [place] [address] Martell Calderon MD 2144 [facility] [address] [place] [address] TREMORS/ MEDICARE, FOR LIFE 03/28/2024 8:30 AM EDT Office Visit Primary Care - [facility] [address] [place] [phone] Cheo Santoyo DO 1112 [place] [address] AWV 04/06/2024 9:45 AM EST Lab [facility] - [facility] [address] [facility] [address] [place] [address] CBCMP,CEA,FEST 04/06/2024 10:15 AM EST Office Visit [facility] - [facility] [address] [facility] [address] [place] [address] Georgi Butterfield MD 3510 [facility] [address] [place] [address] 6 MTH FU W/LABS, REV SCAN 04/13/2024 9:30 AM EST Office Visit Surgical Oncology - [facility] [address] [facility] [address] [place] [address] Delvis Cheek MD 125 [facility] [address] [place] [address] 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
--- OUTSIDE RECORDS SUMMARY | 2024-01-11 22:17 | XMS_ITS | Encounter Summary ---
Author Organization Jose Alejandro Kit [facility] Address [address] [place] [address] Care Team Providers Care Miller Helper Distillery Name Role Phone Felicitas Monaco MD Primary Care Provider [phone] Encounter Details Date Type Department Care Team (Late st Contact Info) Description 07/02/2022 Abstract Primary Care - [address] [place] [address] Felicitas Monaco MD [address] [place] [address] Social History Tobacco Use Types [...] [address] [place] [phone] Martell Calderon MD 2144 [facility] [address] [place], [place] [phone] TREMORS/ MEDICARE, FOR LIFE 03/28/2024 8:30 AM EDT Office Visit Primary Care - [facility] [address] [place] [address] Cheo Santoyo DO 1112 [place] [address] AWV 04/06/2024 9:45 AM EST Lab [facility] - [facility] [address] [facility] [address] [place] [address] CBCMP,CEA,FEST 04/06/2024 10:15 AM EST Office Visit [facility] - [facility] [address] [facility] [address] [place] [address] Georgi Butterfield MD 3510 [facility] 17N [facility] 225 [place], [place] [phone] 6 MTH FU W/LABS, REV SCAN 04/13/2024 9:30 AM EST Office Visit Surgical Oncology - [facility] [address] [facility] [address] [place] [address] Delvis Cheek MD 125 [facility] 660 [place] [address] 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 documented as of this encounter Visit Diagnoses Not on filedocumented in this encounter Care Teams [employer]illery Relationship Specialty Start Date End Date Felicitas Monaco MD PCP - General Family Medicine 06/18/22 07/05/23 documented as of this encounter
--- OUTSIDE RECORDS SUMMARY | 2024-01-11 22:17 | XMS_ITS | Encounter Summary ---
Author Organization [facility] Address [address] [place] [address] Care Team Providers Care Legal Associate Name Role Phone Baljit Ozuna MD Primary Care Provider [phone] Reason for Referral * Eval and Treat (Routine) - Closed Specialty Diagnoses / Procedures Referred By Contosman jimenez Referred To Contact Physical Therapy Diagnoses Primary osteoarthritis of right hip Tear of acetabular labrum, right, initial encounter Dave Lynne Jr., MD [address] [facility] [address] [place] [address] PT/OT, [facility] PT /Davin Rivera [address] [facility], [address] [place] [address] Referral ID Status Reason Start Date Expiration Date V isits Requested Visits Authorized [id number] Closed Specialty Services Required 05/12/2022 11/08/2022 1 1 Scheduling Instructions Evaluate and treat for right hip pain. 2-3 times a week for 6 weeks. ROM. STRENGTH. MODALITIES. [facility] [address] [facility] [address] [facility] [address] Question Answer Reason For External Referral? [facility] ([facility]) My clinical question is: right hip Comments The patient can be scheduled with any member of the group, including the provider with the first available appointments. * Eval and Treat (Routine) - Closed Specialty Diagnoses / Procedures Referred By Rachid t Referred To Contact Diagnoses Primary osteoarthritis of right hip Tear of acetabular labrum, right, initial encounter Dave Lynne Jr., MD [address] [place] [address] Martinez Guthrie MD [address] [facility] [place] [address] Clark [address] [place] [phone] Referral ID Status Reason Start Date Expiration Date V isits Requested Visits Authorized [id number] Closed Specialty Services Required 05/12/2022 05/12/2023 1 1 Scheduling Instructions Right hip IA injection Martinez Guthrie [facility] [address] [facility] [address] [address] [place] [address] Question Answer My clinical question is: right hip IA injection Comments The patient can be scheduled with any member of the group, including the provider with the first available appointments. Reason for Visit * Reason Comments Follow-up Right hip mri follow up-[facility] Encounter Details Date Type Department Care Team (Late st Contact Info) Description 05/12/2022 9:35 AM EST Office Visit Orthopaedics - [address]an [address] Dr[address] [place] [address] Dave Lynne Jr., MD [address] [place] [address] Primary osteoarthritis of right hip (Primary Dx); Tear of acetabular labrum, right, initial encounter Social History Tobacco Use Types Packs/Day [...] Recorded In the last 10 days, have fabby u been in contact with someone who was confirmed or suspected to have Coronavirus/COVID-19? No / Unsure 04/13/2022 5:59 PM EST documented as of this encounter Progress Notes * Dave Lynne Jr., MD - 05/12/2022 9:35 AM EST Images from the original note were not included. ESTABLISHED PATIENT CC: Follow-up (Right hip mri follow up-[facility]) HPI: Martínez Toribio is a 67 y.o. year old male who presents for evaluation of after undergoing a righthip mri at [facility] to evaluate for internal derangements. Recently finished a series of viscous injections in both of his knees for treatment of arthritis. He is also intermittently had increasing discomfort in the right shoulder as well of which he has had2 surgeries on his shoulder Current Medication aspirin atorvastatin empagliflozin metFORMIN olmesartan pantoprazole sucralfate tadalafil Trulicity Sopn Allergies Allergies Allergen Reactions Morphine And Related Hallucinations, Itching, Nausea And Vomiting and Other (See Comments) Event: hallucinations Morphine Other reaction(s): migraines, hallucinations, itching Review of Systems: Review of Systems Constitutional: Negative for fatigue and unexpected weight change. Neurological: Negative for weakness. Musculoskeletal: see HPI for details Physical Examination: There were no vitals taken for this visit. General: Patient is alert and oriented to person, place and time. Well- developed, well-nourished, well groomed, in no acute distress. Normal mood and affect, cooperative, appropriate attitude MSK Exam: RIGHT HIP PHYSICAL EXAMINATION: Observation Wound/Incision: None Abrasion: negative Inspection: No Erythema, No Ecchymosis, No Muscle Atrophy, No Warmth, No Deformity Palpation: SI Joint Tenderness Negative IT Band Tenderness at Hip Mildly Positive Greater Trochanteric Bursa Mildly Positive Glut Medius/Minimus Tenderness Positive Iliopsoas Bursa Tenderness Negative Hip Flexor Tenderness Negative Groin Tenderness Negative Piriformis Tenderness Negative Proximal Hamstring Tenderness Negative Range of motion Forward Flexion 120 Extension --- ABduction 40 ADduction --- External Rotation at 90deg 40 Internal Rotation at 90deg 20 Strength: Forward Flexion 5 / 5 Extension --- Abduction 5 / 5 Adduction --- ER at 90 deg 5 / 5 IR at 90 deg 5 / 5 Special tests: Gait Normal Straight Leg Raise Negative Impingement Mildly Positive Hip Scouring Mildly Positive [id number] Negative Extension ER Negative KATLYN Test Negative External Snapping Hip Syndrome Negative Internal Snapping Hip Syndrome Negative Piriformis Test Negative Neurovascular exam: 2+ DP and PT Pulses with Brisk capillary refill Sensation intact light touch distally LEFT HIP PHYSICAL EXAMINATION: No deformities, erythema, swelling, warmth, ecchymosis, or scars Leg lengths symmetric, no rotational deformities, no allignment deformities, Full Range of Motion, 5/5 strength of all motor groups, appropriate stability Neurovascular exam: 2+ DP and PT Pulses with Brisk capillary refill Sensation intact light touch distally Radiology:mri at [facility] EXAMINATION: MRI arthrogram right hip DATE: 04/29/22 INDICATION: Right hip pain. COMPARISON: None. TECHNIQUE: Fat saturated T1, T2 images in the axial, coronal, oblique axial and oblique coronal planes were obtained of the RIGHT hip after intra articular injection of gadolinium contrast. Small qmjha-re-aozu sagittal T1 fat-sat. Large field of view [...] the labrum. 2. No fracture or AVN. Interpreted by: Deandre Gamino MD Signed by: Deandre Gamino MD 04/29/22 Final result Assessment: Martínez Toribio is a 67 y.o. male with: ICD-10-CM 1. Primary osteoarthritis of right hip M16.11 [facility] 2. Tear of acetabular labrum, right, initial encounter S73.191A Ambulatory referral to [facility] Treatment Plan: Patient's issue with the right hip seems to be that he is developing some arthritis within the joint itself showing some subchondral edema in the acetabulum along with a possible degenerative labral tear. Treatment options for this would be conservative first. I would like to set the patient up ni intra-articular injection into the hip with fluoroscopic guidance. Initiate physical therapy to work on hip girdle muscle stretching strengthening and stabilization exercises. He is not able to take anti-inflammatories because of GI issues. I like to see the patient back in about 6 to 8 weeks tosee how his hip is doing. I independently evaluate the patient's MRI and agree with the findings by the radiologist Patient's question about the right shoulder. He said 2 previous surgeries on the right shoulder being arthroscopic bursectomy and then a resurfacing procedure that was done in 2011. To evaluate further what is going on with the shoulder would have to get x-rays possible MRI. It seems to be more associated with bicep tendinitis. We will see him back in 6 to 8 weeks if he still symptomatic with hisshoulder we will work that up more Orders: Orders Placed This Encounter Procedures Ambulatory referral to [facility] Follow-up: Return in about 6 weeks (around 06/23/2022). Patient to follow-up sooner with any problems, questions, concerns, or worsening symptoms. Notes: Patient is to continue all medications as directed by prescribing physicians. Continuations on today's visit are made based on the patient's report of current medications. Current Meds Verified: Current meds/immunizations reviewed, including purpose with pt. Med Recon was performed with the pt/family. Pt advised to discard old med lists and provide all providers with current list at each visit and carry list with them in case of emergency This document was created using voice recognition software so mistakes are possible. For any concerns about the wording of this document, please contact its creator for further clarification. documented in this encounter Plan of Treatment Upcoming Encounters Date Type Department Care Team (Late st Contact Info) Description 03/24/2024 9:00 AM EDT Office Visit Neurology - [facility] [place] [address] [facility] [address] [place] [address] Martell Calderon MD [address] [facility] [address] [place] [address] TREMORS/ MEDICARE, FOR LIFE 03/28/2024 8:30 AM EDT Office Visit Primary Care - [address] [address] Cheo Santoyo DO [address] [place] [phone] AWV 04/06/2024 9:45 AM EST Lab [facility] - [facility] [place] [address] [facility] [address] [place] [address] CBCMP,CEA,FEST 04/06/2024 10:15 AM EST Office Visit [facility] - [facility] [place] [address] [facility] [address] [place] [address] Georgi Butterfield MD [address] [place] [address] 6 MTH FU W/LABS, REV SCAN 04/13/2024 9:30 AM EST Office Visit Surgical Oncology - [facility] [place] [address] [facility] [address] [place] [address] Delvis Cheek MD 125 [facility] 660 [place] [address] 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 Scheduled Referrals Name Type Priority Associated Diagnoses Orde r Schedule Ambulatory referral to Neurosurgery Outpatient Referral Routine Primary osteoarthritis of right hip Tear of acetabular labrum, right, initial encounter Ordered: 05/12/2022 [facility] Physical Therapy - [address] Outpatient Referral Routine Primary osteoarthritis of right hip Tear of acetabular labrum, right, initial encounter Ordered: 05/12/2022 documented as of this encounter Visit Diagnoses Diagnosis Primary osteoarthritis of right hip- Primary Primary localized osteoarthrosis, pelvic region and thigh Tear of acetabular labrum, right, initial encounter documented in this encounter Care Teams Legal Associate Relationship Specialty Start Date End Date Baljit Ozuna MD PCP - General 03/12/22 06/17/22 documented as of this encounter
--- OUTSIDE RECORDS SUMMARY | 2024-01-11 22:17 | XMS_ITS | Encounter Summary ---
Author Organization Jose Alejandro [facility] Address [address] [place] [address] Care Team Providers Care Railroad Car Painter Name Role Phone Felicitas Monaco MD Primary Care Provider [phone] Encounter Details Date Type Department Care Team (Latest Contact Info) Description 06/30/2022 Travel Social History Tobacco Use Types Packs/Day [...] Dr. [address] [place] [address] Martell Calderon MD [address] [facility] [address] [place] [address] TREMORS/ MEDICARE, FOR LIFE 03/28/2024 8:30 AM EDT Office Visit Primary Care - [facility] [address] [place] [phone] Cheo Santoyo DO [address] [place] [phone] AWV 04/06/2024 9:45 AM EST [facility] - [facility] [address] [facility] [address] [place] [phone] CBCMP,CEA,FEST 04/06/2024 10:15 AM EST Office Visit [facility] - [facility] [address] [facility] [address] [place] [phone] Georgi Butterfield MD [address] [place], [place] [phone] 6 MTH FU W/LABS, REV SCAN 04/13/2024 9:30 AM EST Office Visit Surgical Oncology - [facility] [address] [facility] [address] [place] [address] Delvis Cheek MD 125 [facility] 660 [place] [phone] 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 [address] [place] [phone] Karly Bautista PA [address] [place] [address] annual visit from date of surgery May/Jul 2024 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 documented as of this encounter Visit Diagnoses Not on filedocumented in this encounter Care Teams Railroad Car Painter Relationship Specialty Start Date End Date Felicitas Monaco MD PCP - General Family Medicine 06/18/22 2 documented as of this encounter
--- OUTSIDE RECORDS SUMMARY | 2024-01-11 22:17 | XMS_ITS | Encounter Summary ---
Author Organization [facility] Address [address] [place] [address] Care Team Providers Care Reeling And Tubing Machine Operator Name Role Phone Baljit Ozuna MD Primary Care Provider [phone] Reason for Visit * Reason Onset Date Comments Other 06/15/2022 Encounter Details Date Type Department Care Team (Late st Contact Info) Description 06/15/2022 Telephone Orthopaedics - [address] [place] [address], [address] [place] [address] Dave Lynne Jr., MD [address] [facility] 200 [place] [address] Other Social History Tobacco Use Types Packs/Day [...] Dr. [address] [place] [address] Martell Calderon MD [address] [facility] Clark [address] [place] [address] TREMORS/ MEDICARE, FOR LIFE 03/28/2024 8:30 AM EDT Office Visit Primary Care - [facility] [address] [place] [phone] Cheo Santoyo, DO [address] [place] [phone] AWV 04/06/2024 9:45 AM EST Lab [facility] - [facility] [address] [facility] [address] [place] [phone] CBCMP,CEA,FEST 04/06/2024 10:15 AM EST Office Visit [facility] - [facility] [address] [facility] [address] [place] [phone] Georgi Butterfield MD [address] [facility] [address] [place], [place] [phone] 6 MTH FU W/LABS, REV SCAN 04/13/2024 9:30 AM EST Office Visit Surgical Oncology - [facility] 20[address] [facility] [address] [place] [address] Delvis Cheek MD 125 [facility] 660 [place] [phone] 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 [address] [place] [address] Karly Bautista PA [address] [place] [address] annual visit from date of surgery May/Jul 2024 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 documented as of this encounter Visit Diagnoses Not on filedocumented in this encounter Care Teams Reeling And Tubing Machine Operator Relationship Specialty Start Date End Date Baljit Ozuna MD PCP - General 03/12/22 06/17/22 documented as of this encounter
--- OUTSIDE RECORDS SUMMARY | 2024-01-11 22:17 | XMS_ITS | Encounter Summary ---
Author Organization Jose Alejandro Pantoja [facility] Address [address] [place] [address] Care Team Providers Care Self Sealing Fuel Tank Builder Name Role Phone Baljit Ozuna MD Primary Care Provider [phone] Reason for Visit * Reason Comments Follow-up Colon Cancer f/u Encounter Details Date Type Department Care Team (Latest Contact Info) Description 04/16/2022 9:45 AM EST Office Visit Surgical Oncology - [facility] [address] [facility] [address] [place] [address] Delvis Cheek MD [address] [place] [phone] Adenocarcinoma of cecum (HCC) (Primary Dx); [...] Cigarettes Smokeless Tobacco: Never Tobacco Cessation:Counseling Given: No Alcohol Use Standard Drinks/Week Comments Yes 2 [...] - Inhaled Oxygen Concentration - - Weight 100.8 kg (222 lb 4 oz) 04/16/2022 9:49 AM EST Height 175.3 cm (5' 9) 04/16/2022 9:49 AM EST Body Mass Index 32.82 04/16/2022 9:49 AM EST documented in this encounter Progress Notes * Delvis Cheek MD - 04/16/2022 9:45 AM EST Martínez Toribio (: 1955) is a 67 y.o. male,Established patient, here for evaluation of the following chief complaint(s): Follow-up (Colon Cancer f/u) ASSESSMENT/PLAN: 1. Adenocarcinoma of cecum (HCC) 2. Other acute gastritis with hemorrhage 3. Type 2 diabetes mellitus without complication, without long-term current use of insulin (HCC) 4. Spinal stenosis of lumbar region without neurogenic claudication 5. Primary hypertension 6. Left bundle branch block 7. Iron deficiency anemia, unspecified iron deficiency anemia type From the colon cancer perspective the patient is doing very well. He has a negative CT scan of the abdomen pelvis with no sign of recurrence of his cancer. He has a negative Signatera. He has a negative colonoscopy from last month. And lastly his CEA remains within normal limits and is not rising. Point the patient can come back and see me on a yearly basis but he knows to call with issues or concerns. Return in about 1 year (around 04/16/2023) for Right colon cancer. Medical decision making: He has multiple chronic comorbidities. Reviewed recent colonoscopy, reviewed recent endoscopy, personally interpreted results of his CT scan. Reviewed notes from Dr. Butterfield Subjective SUBJECTIVE/OBJECTIVE: HPI: Mr. Toribio is a pleasant 67-year-old male known to me for a PT3PN0 cecal cancer with lymphovascular invasion. He underwent laparoscopic right hemicolectomy on 07/2020. He was on adjuvant capecitabine for 8 cycles after surgery and has been following up with Dr. Butterfield or his oncologist, he olivia on 03/23/2022. At that time he had [...] The patient has been receiving iron infusions andis on double dose PPI and sucralfate. His hemoglobin and hematocrit have been within normal limits.His main symptom is feeling very tired. Last Signatera as per patient was 0 in February. Review of Systems Constitutional: No fevers, chills, sweats. He has very low energy as per HPI. Eye: No recent visual problems ENMT: No ear pain, nasal congestion, sore throat Respiratory: No shortness of breath, cough Cardiovascular: No Chest pain, palpitations, syncope Gastrointestinal: No nausea, vomiting, diarrhea Genitourinary: No hematuria Musculoskeletal: Back and knee pain are very important. He walks with a cane. Objective Physical Exam Gen.: Alert and oriented, [...] Dr. [address] [place] [address] Martell Calderon MD 2[address] [facility] [address] [place] [address] TREMORS/ MEDICARE, FOR LIFE 03/28/2024 8:30 AM EDT Office Visit Primary Care - [facility] [address] [place] [phone] [place] [address] [place] [phone] AWV 04/06/2024 9:45 AM EST Lab [facility] - [facility] [address] [facility] [address] [place] [phone] CBCMP,CEA,FEST 04/06/2024 10:15 AM EST Office Visit [facility] - [facility] [address] [facility] [address] [place] [phone] Georgi Butterfield MD [address] [place] [address] 6 MTH FU W/LABS, REV SCAN 04/13/2024 9:30 AM EST Office Visit Surgical Oncology - [facility] [address] [facility] [address] [place] [address] Delvis Cheek MD 125 [facility] 660 [place] [phone] 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 06/19/2024 10:30 AM EST Office Visit Orthopaedics- Les Valencia [address] [facility] [address] [place] [phone] Karly Bautista PA [address] [place] [address] annual visit from date of [...] deficiency anemia type documented in this encounter Care Teams Self Sealing Fuel Tank Builder Relationship Specialty Start Date End Date Baljit Ozuna MD PCP - General 03/12/22 06/17/22 documented as of this encounter
--- OUTSIDE RECORDS SUMMARY | 2024-01-11 22:17 | XMS_ITS | Encounter Summary ---
Author Organization Jose Alejandro Ray[facility]olinnea [facility] Address [address] [place] [address] Care Team Providers Care Research Worker Kitchen Name Role Phone Cheo Santoyo Primary Care Provider [phone] Encounter Details Date Type Department Care Team (Late st Contact Info) Description 10/28/2021 Legacy Historical Encounter [facility] HISTORICAL CONVERSIONS [address] [place], [place] [phone] Dave Lynne Jr., MD [address] [place], [place] [phone] Social History Tobacco Use Types Packs/Day Years Used Date Smoking Tobacco: Never Assessed [facility] Utilities Answer Date Recorded In the past 12 months has [employer], gas, oil, or water company threatened [...] [facility], [place] [address] [facility] [address] [place] [address] Martell Calderon MD 2144 [facility] [address] [place], [place] [phone] TREMORS/ MEDICARE, FOR LIFE 03/28/2024 8:30 AM EDT Office Visit Primary Care - [address] [phone] Cheo Santoyo [address] [place] [phone] AWV 04/06/2024 9:45 AM EST Lab [facility] - [facility] [place] [address] [facility] [address] [place] [address] CBCMP,CEA,FEST 04/06/2024 10:15 AM EST Office Visit [facility] - [facility], [place] [address] [facility] [address] [place] [address] Georgi Butterfield MD [address] [place] [address] 6 MTH FU W/LABS, REV SCAN 04/13/2024 9:30 AM EST Office Visit Surgical Oncology - [facility] [place] 20[address] [facility] [address] [place] [address] Delvis Cheek MD 125 [facility] 660 [place] [address] 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 06/19/2024 10:30 AM EST Office Visit Orthopaedics- Les Valencia [address] [place] [address] Karly Bautista, BURT [address] [facility] 301 [place] [address] annual visit from date of surgery May/Jul 2024 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 documented as of this encounter Visit Diagnoses Not on filedocumented in this encounter Care Teams Research Worker Kitchen Relationship Specialty Start Date End Date Cheo Santoyo DO [address] [place] [phone] PCP - General Family Medicine 07/06/23 documented as of this encounter
--- OUTSIDE RECORDS SUMMARY | 2024-01-11 22:17 | XMS_ITS | Encounter Summary ---
Author Organization Jose Alejandro [facility]nea [facility] Address [address] [place] [address] Care Team Providers Care Optical Mechanic Apprentice Name Role Phone Baljit Ozuna MD Primary Care Provider [phone] Encounter Details Date Type Department Care Team (Latest Contact Info) Description 04/13/2022 Travel Social History Tobacco Use Types Packs/Day [...] Dr. [address] [place] [address] Martell Calderon MD [address] [place] [address] TREMORS/ MEDICARE, FOR LIFE 03/28/2024 8:30 AM EDT Office Visit Primary Care - [facility] 1112 [place] [phone] Cheo Santoyo DO 1112 [place] [address] AWV 04/06/2024 9:45 AM EST Lab [facility] [address] [facility] [address] [place] [address] CBCMP,CEA,FEST 04/06/2024 10:15 AM EST Office Visit [facility] - [facility] [address] [facility] [address] [place] [address] Georgi Butterfield MD 3510 [facility] [address] [place] [address] 6 MTH FU W/LABS, REV SCAN 04/13/2024 9:30 AM EST Office Visit Surgical Oncology - [facility] [address] [facility] [address] [place] [address] Delvis Cheek MD 125 [facility] 660 [place] [address] 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 06/19/2024 10:30 AM EST Office Visit Orthopaedics- Les Valencia 615 [facility] [address] [place] [address] Karly Bautista PA [address] [place] [address] annual visit from date of surgery May/Jul 2024 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 documented as of this encounter Visit Diagnoses Not on filedocumented in this encounter Care Teams Optical Mechanic Apprentice Relationship Specialty Start Date End Date Baljit Ozuna MD PCP - General 10/13/22 1/18/23 documented as of this encounter
--- OUTSIDE RECORDS SUMMARY | 2024-01-11 22:17 | XMS_ITS | Encounter Summary ---
Author Organization Jose Alejandro Raymundolinnea [facility] Address [address] [place] [address] Care Team Providers Care Merchandising Intern Name Role Phone Felicitas Monaco MD Primary Care Provider [phone] Reason for Referral * Eval and Treat (Routine) - Closed Specialty Diagnoses / Procedures Referred By Rachid jimenez Referred To Contact Orthopedic Surgery Diagnoses Primary osteoarthritis of right knee Primary osteoarthritis of left knee Dave Lynne Jr., MD 2092 [facility] 200 [place] [address] Maurice Panchal MD [address] [address] Referral ID Status Reason Start Date Expiration Date V isits Requested Visits Authorized [id number] Closed Specialty Services Required 07/07/2022 07/07/2023 1 1 Scheduling Instructions EVAL AND TREAT FOR POSSIBLE TKA Maurice Panchal MD, Orthopaedics [facility] MOB [address] [place] [address] Comments The patient can be scheduled with any member of the group, including the provider with the first available appointments. Patient Information Name: Martínez Toribio : 1955 Mobile Phone: Telephone Information: Work Phone: There is no work phone number on file. Address: [address] [facility] [address] Reason for Visit * Reason Comments Follow-up Right hip pain Encounter Details Date Type Department Care Team (Late st Contact Info) Description 07/07/2022 9:50 AM EST Office Visit Orthopaedics - [address] Dr. [address] [place] [address] Dave Lynne Jr., MD [address] [place] [address] Primary osteoarthritis of right hip (Primary Dx); Primary osteoarthritis of right knee; Primary osteoarthritis of left knee Social History Tobacco Use Types Packs/Day [...] Notes * Dave Lynne Jr., MD - 07/07/2022 9:33 AM EST Images from the original note were not included. ESTABLISHED PATIENT CC: Follow-up (Right hip pain) HPI: Martínez Toribio is a 67 y.o. year old male who presents for evaluation of right hip pain, recent mri showed Right hip osteoarthrosis most notable for multifocal areas of high-grade cartilage loss. Subchondral marrow edema in the acetabulum. Partial thickness tearing of the labrum. The patient has improved since his last visit. He states that his right hip was improving and thatthe recent IA injection was very helpful. He has performed four or five weeks and feels that it wasbeneficial. The patient does have continued complaints of knee pain, L>R, and is requesting a referral for TKA evaluation. Current Medication acetaminophen aspirin atorvastatin cyclobenzaprine empagliflozin metFORMIN olmesartan pantoprazole tadalafil Trulicity Sopn Allergies Allergies Allergen Reactions [...] Trochanteric Bursa Mildly Positive Glut Medius/Minimus Tenderness Mildly positive Iliopsoas Bursa Tenderness Negative Hip Flexor Tenderness [...] Raise Negative Impingement Mildly Positive Hip Scouring negative Gdosdf-8-cfyuvnhl Negative Extension ER Negative KATLYN Test Negative [...] refill Sensation intact light touch distally Assessment: Martínez Toribio is a 67 y.o. male with: ICD-10-CM 1. Primary osteoarthritis of right hip M16.11 2. Primary osteoarthritis of right knee M17.11 Maurice Alonzo MD, Orthopaedics [facility] M[facility] 105 3. Primary osteoarthritis of left knee M17.12 Maurice Alonzo MD, Orthopaedics [facility] MOB 105 Treatment Plan: Patient should continue working on hip girdle strengthening and stabilization exercises. Duration of further treatment for his hip I would continue doing strengthening exercises. He can have cortisone injections if that is helping him every 6 months or so. At some point he likely will need to undergo total hip arthroplasty. Patient would like to go see one of my joint replacement colleagues about talking about knee replacements. We have done an arthroscopic intervention is on both knees clean up meniscus and cartilage. I do not think another arthroscopic invention will really provide the patient with any significant longevity of his knees. Patient to be referred to Dr. Panchal or Dr. Leon Orders: Orders Placed This Encounter Procedures Maurice Alonzo MD, Orthopaedics [facility] MOB 105 Follow-up: Return for Referral for possible total knee arthroplasties. Patient to follow-up sooner with any problems, [...] Dr. [address] [place] [address] Martell Calderon MD [address] [facility] [address] [place] [address] TREMORS/ MEDICARE, FOR LIFE 03/28/2024 8:30 AM EDT Office Visit Primary Care - [facility] [address] [place] [address] Cheo Santoyo DO 1112 [place] [address] AWV 04/06/2024 9:45 AM EST Lab [facility] 2084 [facility] [place] [address] [place] [address] CBCMP,CEA,FEST 04/06/2024 10:15 AM EST Office Visit [facility] - [facility] 2084 [facility] [place] [address] [place] [address] Georgi Butterfield MD 3510 [facility] [address] [place], [place] [id number] 6 MTH FU W/LABS, REV SCAN 04/13/2024 9:30 AM EST Office Visit Surgical Oncology - [facility] 2084 [facility] [place] [address] [place] [address] Delvis Cheek MD 125 [facility] 660 [place] [address] 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 06/19/2024 10:30 AM EST Office Visit Orthopaedics- Les Valencia 615 [facility] [address] [place] [address] Karly Bautista PA [address] [place] [address] annual visit from date of surgery May/Jul 2024 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 Scheduled Referrals Name Type Priority Associated Diagnoses Orde r Schedule R[facility]PP - Maurice Panchal MD, Orthopaedics [facility] MOB 105 Outpatient Referral Routine Primary osteoarthritis of right knee Primary osteoarthritis of left knee Ordered: 07/07/2022 documented as of this encounter Visit Diagnoses Diagnosis Primary osteoarthritis of right hip- Primary Primary localized osteoarthrosis, pelvic region and thigh Primary osteoarthritis of right knee Primary localized osteoarthrosis, lower leg Primary osteoarthritis of left knee Primary localized osteoarthrosis, lower leg documented in this encounter Care Teams Merchandising Intern Relationship Specialty Start Date End Date Felicitas Monaco MD PCP - General Family Medicine 06/18/22 07/05/23 documented as of this encounter
--- OUTSIDE RECORDS SUMMARY | 2024-01-11 22:17 | XMS_ITS | Encounter Summary ---
Author Organization Jose Alejandro Kit [facility] Address [address] [place] [address] Care Team Providers Care Securities Dealer Name Role Phone Baljit Ozuna MD Primary Care Provider [phone] Reason for Visit * Treatment Plan and Therapy Plan (Routine) - Closed Specialty Diagnoses / Procedures Referred By Contac t Referred To Contact Diagnoses Iron deficiency anemia, unspecified iron deficiency anemia type Georgi Butterfield MD [address] [place] [address] [facility] Infusion Therapy 8950 [facility] 100 [place] [address] Referral ID Status Reason Start Date Expiration Date Visits Re quested Visits Authorized [id number] Closed 04/13/2022 04/13/2023 1 2 Encounter Details Date Type Department Care Team (Latest Contact Info) Description 04/20/2022 1:33 PM EST - 04/20/2022 11:59 PM [facility] Encounter [facility]FUS[facility] THERAPY [address]50 [facility] [address] [place] [address] Iron deficiency anemia, unspecified iron [...] Taken Comments Blood Pressure - - Pulse 81 04/20/2022 2:00 PM EST Temperature 36.1 ??C (97 ??F) 04/20/2022 2:00 PM EST Respiratory Rate 16 04/20/2022 2:00 PM EST Oxygen Saturation 97% 04/20/2022 2:00 PM EST Inhaled Oxygen Concentration - - Weight 99.9 kg (220 lb 3.2 oz) 04/20/2022 2:00 P M EST Height 175.3 cm (5' 9) 04/20/2022 2:00 PM EST Body Mass Index 32.52 04/20/2022 2:00 PM EST documented in this encounter Medications [...] 9:00 AM EDT Office Visit Neurology - [facility] [address] [facility] [address] [place] [address] Martell Calderon MD 2145 [facility] [address] [place] [address] TREMORS/ MEDICARE, FOR LIFE 03/28/2024 8:30 AM EDT Office Visit Primary Care - [address] [address] Cheo Santoyo DO 1112 [place] [address] AWV 04/06/2024 9:45 AM EST Lab [facility] - [facility] [address] [facility] [address] [place] [address] CBCMP,CEA,FEST 04/06/2024 10:15 AM EST Office Visit [facility] - [facility] [address] [facility] [address] [place] [address] Georgi Butterfield MD [address] [place] [address] 6 MTH FU W/LABS, REV SCAN 04/13/2024 9:30 AM EST Office Visit Surgical Oncology - [facility] 20[address] [facility] [address] [place] [address] Delvis Cheek MD 125 [facility] [address] [place] [address] 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 06/19/2024 10:30 AM EST Office Visit Orthopaedics- Les Valencia [address] [facility] [address] [place] [address] Karly Bautista, BURT [address] [place] [address] annual visit from date of surgery May/Jul 2024 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 documented as of this encounter Visit Diagnoses Diagnosis Iron deficiency anemia, unspecified iron deficiency anemia type- Primary documented in this encounter Administered Medications Inactive Administered Medications - up to 3 most recent administrations Medication Order MAR Action Action Date Dose Rate Site 0.9 % sodium chloride infusion 5-250 mL/hr, IntraVENous, PRN, If patient receiving piggyback infusions and maintenance fluids are not ordered OR KVO fluids to protect IV site/ prevent frequent line interruptions/ long duration, Starting on Wed04/20/22 at 1400, For 18 hours, For piggyback infusion, administer at same rate as piggyback for a total of 25 mL. Enter 25 mL into dose field and piggyback rate into rate field of order. If piggyback is infusing at a rate less than 100 mL/hr, enter 25 mL into dose field and 100 mL/hr into rate field of order. For KVO fluids, enter rate of 20 mL/hr or less into rate field of order. New Bag 04/20/2022 2:11 PM EST 250 mL/hr 250 mL/hr ferric carboxymaltose (INJECTAFER) 750 mg in sodium chloride 0.9 % 250 mL IVPB 750 mg, IntraVENous, at 750 mL/hr, Administer over 20 Minutes, ONCE, On Wed04/20/22 at 1430, For 1 dose, Observe for signs and symptoms of hypersensitivity and/or anaphylactic-type reactions per institutional standard during and following administration. New Bag 04/20/2022 2:13 PM EST 750 mg 750 mL/hr documented in this encounter Care Teams Securities Dealer Relationship Specialty Start Date End Date Baljit Ozuna MD PCP - General 03/12/22 06/17/22 documented as of this encounter
--- OUTSIDE RECORDS SUMMARY | 2024-01-11 22:17 | XMS_ITS | Encounter Summary ---
Author Organization Jose Alejandro Kit Firetidemarysol [facility] Address [address] [place] [address] Care Team Providers Care Felt Hat Inspector And Packer Name Role Phone Felicitas Monaco MD Primary Care Provider [phone] Encounter Details Date Type Department Care Team (Late st Contact Info) Description 07/24/2022 Orders Only [facility] - [facility]. [address] [facility] [address] [place] [address] Georgi Butterfield MD [address] [place] [address] Carcinoma of ascending colon (HCC) [...] 9:00 AM EDT Office Visit Neurology - [facility] [address] [facility] [address] [place] [address] Martell Calderon MD 2144 [facility] [address] [place] [address] TREMORS/ MEDICARE, FOR LIFE 03/28/2024 8:30 AM EDT Office Visit Primary Care - [address] [address] Cheo Santoyo, 1112 [place] [address] AWV 04/06/2024 9:45 AM EST Lab [facility] - [facility] [address] [facility] [address] [place] [address] CBCMP,CEA,FEST 04/06/2024 10:15 AM EST Office Visit [facility] - [facility] [address] [facility] [address] [place] [address] Georgi Butterfield MD [address] [place] [address] 6 MTH FU W/LABS, REV SCAN 04/13/2024 9:30 AM EST Office Visit Surgical Oncology - [facility] [address] [facility] [address] [place] [address] Delvis Cheek MD 125 [facility] [address] [place] [address] 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 06/19/2024 10:30 AM EST Office Visit Orthopaedics- Adalberto Valencia 615 [facility] [address] [place] [address] Karly Bautista PA [address] [facility] 301 [place] [address] annual visit from date of surgery May/Jul 2024 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 Scheduled Orders Name Type Priority Associated Diagnoses Orde r Schedule CEA (Serial Monitor) Lab Routine Carcinoma of ascending colon (HCC) Expected: 07/24/2022, Expires: 07/24/2023 documented as of this encounter Visit Diagnoses Diagnosis Carcinoma of ascending colon (HCC)- Primary Malignant neoplasm of ascending colon documented in this encounter Care Teams Felt Hat Inspector And Packer Relationship Specialty Start Date End Date Felicitas Monaco MD PCP - General Family Medicine 06/18/22 07/05/23 documented as of this encounter
--- OUTSIDE RECORDS SUMMARY | 2024-01-11 22:17 | XMS_ITS | Encounter Summary ---
Author Organization Jose Alejandro Kit Mozidomarysol [facility] Address [address] [facility] [place] [address] Care Team Providers Care Onsite Case Manager Name Role Phone Felicitas Monaco MD Primary Care Provider [phone] Encounter Details Date Type Department Care Team (Late st Contact Info) Description 06/10/2022 Abstract [facility] - [facility]. [address]50 [facility] [address] [place] [address] Georgi Butterfield MD [address] [place] [address] Social History Tobacco Use Types [...] Dr. [address] [place] [address] Martell Calderon MD 2144 [facility] [address] [place] [address] TREMORS/ MEDICARE, FOR LIFE 03/28/2024 8:30 AM EDT Office Visit Primary Care - [address] [address] Cheo Santoyo DO 1112 [place] [address] AWV 04/06/2024 9:45 AM EST Lab [facility] - [facility] 20[address] [facility] [address] [place] [address] CBCMP,CEA,FEST 04/06/2024 10:15 AM EST Office Visit [facility] - [facility] [address] [facility] [address] [place] [address] Georgi Butterfield MD [address] [place] [address] 6 MTH FU W/LABS, REV SCAN 04/13/2024 9:30 AM EST Office Visit Surgical Oncology - [facility] 20[address] [facility] [address] [place] [address] Delvis Cheek MD 125 [facility] [address] [place] [address] 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 documented as of this encounter Visit Diagnoses Not on filedocumented in this encounter Care Teams Onsite Case Manager Relationship Specialty Start Date End Date Felicitas Monaco MD PCP - General Family Medicine 06/18/22 07/05/23 documented as of this encounter
--- OUTSIDE RECORDS SUMMARY | 2024-01-11 22:17 | XMS_ITS | Encounter Summary ---
Author Organization Jose Alejandro Kit [facility] Address [address] [place] [address] Care Team Providers Care Music Critic Name Role Phone Baljit Ozuna MD Primary Care Provider [phone] Encounter Details Date Type Department Care Team (Late st Contact Info) Description 04/13/2022 Orders Only [place] - [facility]. [address] [facility] [address] [place] [address] Georgi Butterfield MD [address] [place] [address] Social History Tobacco Use Types [...] Neurology - [address] Dr. [address] [facility] [address] [place] [address] Martell Calderon MD [address] [facility] [address] [place] [address] TREMORS/ MEDICARE, FOR LIFE 03/28/2024 8:30 AM EDT Office Visit Primary Care - [address] [phone] Cheo Santooy DO [address] [place] [address] AWV 04/06/2024 9:45 AM EST Lab [facility] - [facility] [address] [facility] [address] [place] [address] CBCMP,CEA,FEST 04/06/2024 10:15 AM EST Office Visit [facility] - [facility] [address] [facility] [address] [place] [address] Georgi Butterfield MD [address] [place], [place] [address] 6 MTH FU W/LABS, REV SCAN 04/13/2024 9:30 AM EST Office Visit Surgical Oncology - [facility] [address] 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 [address] [place] [address] Karly Bautista PA [address] [place] [address] annual visit from date of surgery May/Jul 2024 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 documented as of this encounter Visit Diagnoses Not on filedocumented in this encounter Care Teams Music Critic Relationship Specialty Start Date End Date Baljit Ozuna MD PCP - General 03/12/22 06/17/22 documented as of this encounter
--- OUTSIDE RECORDS SUMMARY | 2024-01-11 22:18 | XMS_ITS | Encounter Summary ---
Author Organization Jose Alejandro Pantoja [facility] Address [address] [place] [address] Care Team Providers Care Account Resolution Expert Name Role Phone Carter Santoyoony Moshe REYES Primary Care Provider [phone] Encounter Details Date Type Department Care Team (Late st Contact Info) Description 07/29/2020 Legacy Historical Encounter [facility]ICAL Georgi Butterfield MD [address] [place] [address] Social History Tobacco Use Types Packs/Day Years [...] 9:00 AM EDT [facility] [address] [facility] [address] [place] [address] Martell Calderon MD 214 [facility] [address] [place] [address] TREMORS/ MEDICARE, FOR LIFE 03/28/2024 8:30 AM EDT Office Visit Primary Care - [address] [address] [place] [address] [place] [address] AWV 04/06/2024 9:45 AM EST Lab [place] [facility] - [facility] [place] [address] [facility] [address] [place] [address] CBCMP,CEA,FEST 04/06/2024 10:15 AM EST Office Visit [place] [facility] - [facility] [place] Valencia [address] 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 documented as of this encounter Visit Diagnoses Not on filedocumented in this encounter Care Teams Account Resolution Expert Relationship Specialty Start Date End Date Cheo Santoyo DO [address] [place] [phone] PCP - General Family Medicine 07/06/23 documented as of this encounter
--- OUTSIDE RECORDS SUMMARY | 2024-01-11 22:18 | XMS_ITS | Encounter Summary ---
Author Organization Jose Alejandro Pantoja [facility] Address [address] [place] [address] Care Team Providers Care Voice Studies Director Name Role Phone YarelisCheo friend Moshe REYES Primary Care Provider [phone] Encounter Details Date Type Department Care Team (Late st Contact Info) Description 03/24/2021 [facility] Historical Encounter [facility] [place] [facility] [...] Neurology - [facility] [address] [facility] [address] [place] [address] Martell Calderon MD 2144 [facility] [address] [place] [address] TREMORS/ MEDICARE, FOR LIFE 03/28/2024 8:30 AM EDT Office Visit Primary Care - [address] [phone] Cheo Santoyo, [address] [address] AWV 04/06/2024 9:45 AM EST Lab [facility] - [facility] [address] [facility] [address] [place] [address] CBCMP,CEA,FEST 04/06/2024 10:15 AM EST Office Visit [facility] - [facility] [address] [facility] [address] [place] [address] Georgi Butterfield MD [address] [place] [address] 6 MTH FU W/LABS, REV SCAN 04/13/2024 9:30 AM EST Office Visit Surgical Oncology - [facility] [address] [facility] [address] [place] [address] Delvis Cheek MD 125 [facility] 660 [place] [address] 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 [address] [place] [address] Karly Bautista, BURT 180 [facility] 301 [place] [address] annual visit from date of surgery May/Jul 2024 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 documented as of this encounter Visit Diagnoses Not on filedocumented in this encounter Care Teams Voice Studies Director Relationship Specialty Start Date End Date Cheo Santoyo DO [address] [place] [phone] PCP - General Family Medicine 07/06/23 documented as of this encounter
--- OUTSIDE RECORDS SUMMARY | 2024-01-11 22:18 | XMS_ITS | Encounter Summary ---
Author Organization Jose Alejandro Pantoja [facility] Address [address] [place] [address] Care Team Providers Care Automatic Fabric Cutter Name Role Phone YarelisChoe rfiend Moshe REYES Primary Care Provider [phone] Encounter Details Date Type Department Care Team (Late st Contact Info) Description 08/04/2021 Legacy Historical Encounter [facility] [place] [facility] & [...] Visit Neurology - [facility] [address] [facility] [address] [place] [address] Martell Calderon MD 2144 [facility] [address] [place] [address] TREMORS/ MEDICARE, FOR LIFE 03/28/2024 8:30 AM EDT Office Visit Primary Care - [address] [phone] Cheo Santoyo, [address] [address] AWV 04/06/2024 9:45 AM EST Lab [facility] - [facility] [address] [facility] [address] [place] [address] CBCMP,CEA,FEST 04/06/2024 10:15 AM EST Office Visit [facility] - [facility] [address] [facility] [address] [place] [address] Georgi Butterfield MD [address] [place] [address] 6 MTH FU W/LABS, REV SCAN 04/13/2024 9:30 AM EST Office Visit Surgical Oncology - [facility] [address] [facility] [address] [place] [phone] Delvis Cheek MD 125 [facility] 660 [place] [address] 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 [address] [place] [address] Karly Bautista, BURT 180 [facility] 301 [place] [address] annual visit from date of surgery May/Jul 2024 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 documented as of this encounter Visit Diagnoses Not on filedocumented in this encounter Care Teams Automatic Fabric Cutter Relationship Specialty Start Date End Date Cheo Santoyo DO [address] [place] [phone] PCP - General Family Medicine 07/06/23 documented as of this encounter
--- OUTSIDE RECORDS SUMMARY | 2024-01-11 22:18 | XMS_ITS | Encounter Summary ---
Author Organization Jose Alejandro Pantoja [facility] Address [address] [place] [address] Care Team Providers Care Hydraulic Spinner Name Role Phone Cheo Santoyo Primary Care Provider [phone] Encounter Details Date Type Department Care Team (Late st Contact Info) Description 05/13/2021 Legacy Historical Encounter [facility] HISTORICAL CONVERSIONS [address] [place], [place] [phone] Georgi Andersen, PA [address] [facility] [address] [place], [place] [phone] Social History Tobacco Use Types Packs/Day Years [...] Visit Neurology - [facility] [address] [facility] [address] [place] [address] Martell Calderon MD 214 [facility] [address] [place] [address] TREMORS/ MEDICARE, FOR LIFE 03/28/2024 8:30 AM EDT Office Visit Primary Care - [address] [address] Cheo Santoyo, [address] [place] [address] AWV 04/06/2024 9:45 AM EST Lab [place] - [facility] 20[address] [facility] [address] [place] [address] CBCMP,CEA,FEST 04/06/2024 10:15 AM EST Office Visit [place] - [facility] [address] [facility] [address] [place] [address] Georgi Butterfield MD [address] [place] [address] 6 MTH FU W/LABS, REV SCAN 04/13/2024 9:30 AM EST Office Visit Surgical Oncology - [facility] [address] [facility] [address] [place] [phone] Delvis Cheek MD 125 [facility] 660 [place] [address] 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 documented as of this encounter Visit Diagnoses Not on filedocumented in this encounter Care Teams Hydraulic Spinner Relationship Specialty Start Date End Date Cheo Santoyo DO [address] [place] [phone] PCP - General Family Medicine 07/06/23 documented as of this encounter
--- OUTSIDE RECORDS SUMMARY | 2024-01-11 22:18 | XMS_ITS | Encounter Summary ---
Author Organization Jose Alejandro Pantoja [facility] Address [address] [place] [address] Care Team Providers Care Harness Cutter Name Role Phone Cheo Santoyo Primary Care Provider [phone] Encounter Details Date Type Department Care Team (Late st Contact Info) Description 07/25/2020 Legacy Historical Encounter [facility] HISTORICAL CONVERSIONS 316 [place] [address] Delvis Cheek MD [address] [address] Social History Tobacco Use Types [...] 9:00 AM EDT Office Visit Neurology - [facility] [address] [facility] [address] [place] [address] Martell Calderon MD 214 [facility] [address] [place] [address] TREMORS/ MEDICARE, FOR LIFE 03/28/2024 8:30 AM EDT Office Visit Primary Care - [address] [address] [place] [address] [place] [address] AWV 04/06/2024 9:45 AM EST Lab [place] [facility] - [facility] [address] [facility] [address] [place] [address] CBCMP,CEA,FEST 04/06/2024 10:15 AM EST Office Visit [facility] - [facility] [address] [facility] [address] [place] [address] Georgi Butterfield MD 3510 [facility] [address] [place] [address] 6 MTH FU W/LABS, REV SCAN 04/13/2024 9:30 AM EST Office Visit Surgical Oncology - [facility] [address] [facility] [address] [place] [address] Delvis Cheek MD 125 [facility] 660 [place] [address] 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 documented as of this encounter Visit Diagnoses Not on filedocumented in this encounter Care Teams Harness Cutter Relationship Specialty Start Date End Date Cheo Santoyo DO [address] [place] [phone] PCP - General Family Medicine 07/06/23 documented as of this encounter
--- OUTSIDE RECORDS SUMMARY | 2024-01-11 22:18 | XMS_ITS | Encounter Summary ---
Author Organization [facility] Address [address] [place] [address] Care Team Providers Care Comptroller Name Role Phone Unavailable Primary Care Provider Unavailabl e Encounter Details Date Type Department Care Team (Late st Contact Info) Description 10/02/2021 1:34 PM EDT - 10/02/2021 11:59 PM EDT Hospital Encounter [facility] HISTORICAL CONVERSIONS [address] [place], [place] [phone] Georgi Andersen, PA [address] [place] [address] Social History Tobacco Use Types Packs/Day Years [...] as needed for Erectile Dysfunction 06/11/2020 07/06/2023 esomeprazole (NEXIUM) 40 MG delayed release capsule 1 capsule 09/19/2021 03/24/2022 documented as of this encounter Plan of Treatment Upcoming Encounters Date Type Department Care Team (Late st Contact Info) Description 03/24/2024 9:00 AM EDT Office Visit Neurology - [address] [facility] [address] [place] [address] Martell Calderon MD 2144 [facility] [address] [place] [address] TREMORS/ MEDICARE, FOR LIFE 03/28/2024 8:30 AM EDT Office Visit Primary Care - [address] [phone] Cheo Santoyo, DO 1112 [place] [address] AWV 04/06/2024 9:45 AM EST Lab [place] [facility] - [facility] 2084 [facility] [address] [place] [address] CBCMP,CEA,FEST 04/06/2024 10:15 AM EST Office Visit [place] [facility] - [facility] 20[address] [facility] [address] [place] [address] Georgi Butterfield MD 3510 [facility] 17N [facility] 225 [place], [place] [phone] 6 MTH FU W/LABS, REV SCAN 04/13/2024 9:30 AM EST Office Visit Surgical Oncology - [facility] 2084 [facility] [address] [place] [address] Delvis Cheek MD 125 [facility] [address] [place] [address] 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 documented as of this encounter Procedures Procedure Name Priority Date/Time Associated Diagnosis Comments MRI KNEE LEFT WO CONTRAST Routine 09/30/2021 8:26 AM EDT documented in this encounter Results * MRI Knee w/o Contrast Left (09/30/2021 8:26 AM EDT) Anatomical Region Laterality Modality Thigh, Knee, Leg Other 09/30/2021 8:26 AM EDT 10/02/2021 2:59 PM EDT Narrative 10/02/2021 3:11 PM EDT Clinical indication: M25.562;M25.562 left knee pain, initial encounter Comparison:None Technique: Axial fat saturated T2, coronal T1 and fat saturated T2, oblique sagittal SE PD and fat saturated T2 images of the LEFT knee without contrast. 10/02/21 Findings: There is a moderate knee effusion. Ruptured popliteal cyst is present. There is no oblique undersurface tear of the posterior horn medial meniscus, sparing the root. Lateral meniscus is intact. Increased T2 hyperintense signal is noted within the substance of the anterior cruciate ligament. Posterior cruciate ligament is intact. Medial and lateral collateral ligaments are intact. Quadriceps and patellar tendons are intact. Biceps femoris, popliteus, gastrocnemius, Sabrina no cysts and anserine tendons are intact. There is no muscle atrophy or edema. Patellofemoral cartilage heterogeneity is present. Cartilage loss is noted at the median ridge. Medial lateral compartment cartilage heterogeneity is present with areas of cartilage loss in the medial compartment. IMPRESSION: Complex tear posterior horn medial meniscus with dominant oblique undersurface component. 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 Ruptured Cornejo's cyst Mucoid degeneration anterior cruciate ligament Final Releasing Radiologist: ?? KATHERINE, ??LAMONTE PEREZ Released Date and Time: ??10/02/21 15:09 Procedure Note Lamonte Verdugo/27/2022 Clinical indication: M25.562;M25.562 left knee pain, initial encounter Comparison:None Technique: Axial fat saturated T2, coronal T1 and fat saturated T2,oblique sagittal SE PD and fat saturated T2 images of the LEFT knee withoutcontrast. 10/02/21 Findings: There is a moderate knee effusion. Ruptured popliteal cyst ispresent. There is no oblique undersurface tear of the posterior horn medialmeniscus, sparing the root. Lateral meniscus is intact. Increased T2 hyperintensesignal is noted within the substance of the anterior cruciate ligament.Posterior cruciate ligament is intact. Medial and lateral collateral ligaments areintact. Quadriceps and patellar tendons are intact. Biceps femoris, popliteus, gastrocnemius, Sabrina no cysts andanserine tendons are intact. There is no muscle atrophy or edema. Patellofemoral cartilage heterogeneity is present. Cartilage loss is notedat the median ridge. Medial lateral compartment cartilage heterogeneity ispresent with areas of cartilage loss in the medial compartment. IMPRESSION: Complex tear posterior horn medial meniscus with dominant obliqueundersurface component. 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 Ruptured Cornejo's cyst Mucoid degeneration anterior cruciate ligament Final Releasing Radiologist: LAMONTE VERDUGO Released Date and Time: 10/02/21 15:09 Georgi [facility] ORDERABLES documented in this encounter Visit Diagnoses Not on filedocumented in this encounter
--- OUTSIDE RECORDS SUMMARY | 2024-01-11 22:18 | XMS_ITS | Encounter Summary ---
Author Organization Jose Alejandro Pantoja [facility] Address [address] [place] [address] Care Team Providers Care Track Equipment Operator Name Role Phone YarelisCheo friend Moshe REYES Primary Care Provider [phone] Encounter Details Date Type Department Care Team (Late st Contact Info) Description 08/21/2020 Legacy Historical Encounter [facility] [place] [facility] & [...] Visit Neurology - [facility] 2[address] [facility] [address] [place] [address] Martell Calderon MD 2144 [facility] [address] [place] [address] TREMORS/ MEDICARE, FOR LIFE 03/28/2024 8:30 AM EDT Office Visit Primary Care - [address] [phone] Cheo Santoyo, [address] [address] AWV 04/06/2024 9:45 AM EST Lab [place] [facility] - [facility] 2084 [facility] [address] [place] [address] CBCMP,CEA,FEST 04/06/2024 10:15 AM EST Office Visit [place] [facility] - [facility] 2084 [facility] [address] [place] [address] Georgi Butterfield MD [address] [place] [address] 6 MTH FU W/LABS, REV SCAN 04/13/2024 9:30 AM EST Office Visit Surgical Oncology - [facility] 2084 [facility] [address] [place] [address] Delvis Cheek MD 125 [facility] 660 [place] [address] 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 [address] [place] [address] Karly Bautista, BURT 180 [facility] 301 [place] [address] annual visit from date of surgery May/Jul 2024 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 documented as of this encounter Visit Diagnoses Not on filedocumented in this encounter Care Teams Track Equipment Operator Relationship Specialty Start Date End Date Cheo Santoyo DO [address] [place] [phone] PCP - General Family Medicine 07/06/23 documented as of this encounter
--- OUTSIDE RECORDS SUMMARY | 2024-01-11 22:18 | XMS_ITS | Encounter Summary ---
Author Organization Jose Alejandro Pantoja [facility] Address [address] [place] [address] Care Team Providers Care Slot Operations Director Name Role Phone Cheo Santoyo Primary Care Provider [phone] Encounter Details Date Type Department Care Team (Late st Contact Info) Description 05/09/2021 Legacy Historical Encounter [facility] HISTORICAL CONVERSIONS [address] [place], [place] [id number] Maurice Wood II, MD 7 [facility] [address] [place] [phone] Social History Tobacco Use Types Packs/Day Years [...] Visit Neurology - [facility] [address] [facility] [address] [place] [address] Martell Calderon MD 214 [facility] [address] [place] [address] TREMORS/ MEDICARE, FOR LIFE 03/28/2024 8:30 AM EDT Office Visit Primary Care - [address] [address] [place] [address] [place] [address] AWV 04/06/2024 9:45 AM EST Lab [place] [facility] - [facility] 2084 [facility] [address] [place] [address] CBCMP,CEA,FEST 04/06/2024 10:15 AM EST Office Visit [place] [facility] - [facility] 2084 [facility] [address] [place] [address] Georgi Butterfield MD [address] [place] [address] 6 MTH FU W/LABS, REV SCAN 04/13/2024 9:30 AM EST Office Visit Surgical Oncology - [facility] [address] [facility] [address] [place] [address] Delvis Cheek MD 125 [facility] 660 [place] [address] 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 documented as of this encounter Visit Diagnoses Not on filedocumented in this encounter Care Teams Slot Operations Director Relationship Specialty Start Date End Date Cheo Santoyo DO [address] [place] [phone] PCP - General Family Medicine 07/06/23 documented as of this encounter
--- OUTSIDE RECORDS SUMMARY | 2024-01-11 22:18 | XMS_ITS | Encounter Summary ---
Author Organization Jose Alejandro Pantoja [facility] Address [address] [place] [address] Care Team Providers Care Community Health Program Representative Name Role Phone YarelisCheo friend Moshe REYES Primary Care Provider [phone] Encounter Details Date Type Department Care Team (Late st Contact Info) Description 09/11/2020 Legacy Historical Encounter [facility] [place] [facility] & [...] AM EDT Office Visit Neurology - [facility] [address] [facility] [address] [place] [address] Martell Calderon MD 2144 [facility] [address] [place] [address] TREMORS/ MEDICARE, FOR LIFE 03/28/2024 8:30 AM EDT Office Visit Primary Care - [address] [phone] Cheo Santoyo, [address] [address] AWV 04/06/2024 9:45 AM EST Lab [place] [facility] - [facility] 2084 [facility] [address] [place] [address] CBCMP,CEA,FEST 04/06/2024 10:15 AM EST Office Visit [place] [facility] - [facility] 2084 [facility] [address] [place] [address] Georgi Butterfield MD [address] [place] [address] 6 MTH FU W/LABS, REV SCAN 04/13/2024 9:30 AM EST Office Visit Surgical Oncology - [facility] 2084 [facility] [address] [place] [address] Delvis Cheek MD 125 [facility] 660 [place] [address] 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 [address] [place] [address] Karly Bautista, BURT 180 [facility] 301 [place] [address] annual visit from date of surgery May/Jul 2024 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 documented as of this encounter Visit Diagnoses Not on filedocumented in this encounter Care Teams Community Health Program Representative Relationship Specialty Start Date End Date Cheo Santoyo DO [address] [place] [phone] PCP - General Family Medicine 07/06/23 documented as of this encounter
--- OUTSIDE RECORDS SUMMARY | 2024-01-11 22:18 | XMS_ITS | Encounter Summary ---
Author Organization Jose Alejandro [facility] Address [address] [place] [address] Care Team Providers Care Profiling Machine Setup Operator Name Role Phone YarelisCheo friend Moshe REYES Primary Care Provider [phone] Encounter Details Date Type Department Care Team (Late st Contact Info) Description 04/07/2021 Legacy Historical Encounter [facility] [...] Visit Neurology - [facility] [address] [facility] [address] [place] [address] Martell Calderon MD [address] [facility] [address] [place] [address] TREMORS/ MEDICARE, FOR LIFE 03/28/2024 8:30 AM EDT Office Visit Primary Care - [address] [phone] Cheo Santoyo, [address] [address] AWV 04/06/2024 9:45 AM EST Lab [place] [facility] - [facility] [address] [facility] [address] [place] [address] CBCMP,CEA,FEST 04/06/2024 10:15 AM EST Office Visit [place] - [facility] [address] [facility] [address] [place] [address] Georgi Butterfield MD [address] [place] [address] 6 MTH FU W/LABS, REV SCAN 04/13/2024 9:30 AM EST Office Visit Surgical Oncology - [facility] [address] [facility] [address] [place] [phone] Delvis Cheek MD 125 [facility] 660 [place] [phone] 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 [address] [place] [phone] Karly Bautista, BURT 180 [facility] 301 [place] [address] annual visit from date of surgery May/Jul 2024 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 documented as of this encounter Visit Diagnoses Not on filedocumented in this encounter Care Teams Profiling Machine Setup Operator Relationship Specialty Start Date End Date Cheo Santoyo DO [address] [place] [phone] PCP - General Family Medicine 07/06/23 documented as of this encounter
--- OUTSIDE RECORDS SUMMARY | 2024-01-11 22:18 | XMS_ITS | Encounter Summary ---
Author Organization [facility] Ale[facility]andro [facility]anto[facility] Address [address] [place] [address] Care Team Providers Care Leak Inspector Name Role Phone Carter Santoyoony Moshe REYES Primary Care Provider [phone] Encounter Details Date Type Department Care Team (Late st Contact Info) Description 08/04/2021 Legacy Historical [facility] H[facility]ORICAL Georgi Butterfield MD [address] [place] [address] Social History Tobacco Use Types Packs/Day Years [...] 9:00 AM EDT [facility] [address] [facility] [address] [place] [address] Martell Calderon MD 214 [facility] [address] [place] [address] TREMORS/ MEDICARE, FOR LIFE 03/28/2024 8:30 AM EDT Office Visit Primary Care - [address] [address] [place] [address] [place] [phone] AWV 04/06/2024 9:45 AM EST Lab [place] [facility] [address] [facility] [address] [place] [address] CBCMP,CEA,FEST 04/06/2024 10:15 AM EST Office Visit [place] [facility] [address] [facility] [address] [place] [address] Georgi Butterfield MD [address] [place] [address] 6 MTH FU W/LABS, REV SCAN 04/13/2024 9:30 AM EST Office Visit Surgical Oncology - [facility] [address] [facility] [address] [place] [address] Delvis Cheek MD 125 [facility] 660 [place] [address] 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 [address] [place] [address] Karly Bautista, BURT 180 [facility] [address] [place] [address] annual visit from date of surgery May/Jul 2024 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 documented as of this encounter Visit Diagnoses Not on filedocumented in this encounter Care Teams Leak Inspector Relationship Specialty Start Date End Date Cheo Santoyo DO [address] [place] [place] [phone] PCP - General Family Medicine 07/06/23 documented as of this encounter
--- OUTSIDE RECORDS SUMMARY | 2024-01-11 22:18 | XMS_ITS | Encounter Summary ---
Author Organization [facility] Ale[facility]andro [facility]ja [facility] Address [address] [place] [address] Care Team Providers Care Insurance Examiner Name Role Phone Carter Santoyoony Moshe REYES Primary Care Provider [phone] Encounter Details Date Type Department Care Team (Late st Contact Info) Description 01/13/2021 Legacy Historical [facility]ICAL Georgi Butterfield MD [address] [place] [address] Social History Tobacco Use Types Packs/Day Years [...] 9:00 AM EDT [facility] [address] [facility] [address] [place] [address] Martell Calderon MD 214 [facility] [address] [place] [address] TREMORS/ MEDICARE, FOR LIFE 03/28/2024 8:30 AM EDT Office Visit Primary Care - [address] [address] [place] [address] [place] [phone] AWV 04/06/2024 9:45 AM EST Lab [place] [facility] [address] [facility] [address] [place] [address] CBCMP,CEA,FEST 04/06/2024 10:15 AM EST Office Visit [place] [facility] [address] [facility] [address] [place] [address] Georgi Butterfield MD [address] [place] [address] 6 MTH FU W/LABS, REV SCAN 04/13/2024 9:30 AM EST Office Visit Surgical Oncology - [facility] [address] [facility] [address] [place] [address] Delvis Cheek MD 125 [facility] 660 [place] [address] 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 06/19/2024 10:30 AM EST Office Visit Orthopaedics- Les Valencia 615 [facility] [address] [place] [address] Karly Bautista, BURT 180 [facility] 301 [place] [address] annual visit from date of surgery May/Jul 2024 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 documented as of this encounter Visit Diagnoses Not on filedocumented in this encounter Care Teams Insurance Examiner Relationship Specialty Start Date End Date Cheo Santoyo DO [address] [place] [phone] PCP - General Family Medicine 07/06/23 documented as of this encounter
--- OUTSIDE RECORDS SUMMARY | 2024-01-11 22:18 | XMS_ITS | Encounter Summary ---
Author Organization Jose Alejandro Pantoja [facility] Address [address] [place] [address] Care Team Providers Care Pipe Covering Molder Name Role Phone Carter Santoyoony Moshe REYES Primary Care Provider [phone] Encounter Details Date Type Department Care Team (Late st Contact Info) Description 04/07/2021 Legacy Historical [facility] Georgi Butterfield MD [address] [place] [address] Social History Tobacco Use Types Packs/Day Years [...] 9:00 AM EDT [facility] [address] [facility] [address] [place] [address] Martell Calderon MD 214 [facility] [address] [place] [address] TREMORS/ MEDICARE, FOR LIFE 03/28/2024 8:30 AM EDT Office Visit Primary Care - [address] [address] [place] [address] [place] [phone] AWV 04/06/2024 9:45 AM EST Lab [place] [facility] [address] [facility] [address] [place] [address] CBCMP,CEA,FEST 04/06/2024 10:15 AM EST Office Visit [place] [facility] [address] [facility] [address] [place] [address] Georgi Butterfield MD [address] [place] [address] 6 MTH FU W/LABS, REV SCAN 04/13/2024 9:30 AM EST Office Visit Surgical Oncology - [facility] [address] [facility] [address] [place] [address] Delvis Cheek MD 125 [facility] 660 [place] [address] 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 06/19/2024 10:30 AM EST Office Visit Orthopaedics- Les Valencia [address] [facility] [address] [place] [address] Karly Bautista, BURT [address] [facility] [address] [place] [address] annual visit from date of surgery May/Jul 2024 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 documented as of this encounter Visit Diagnoses Not on filedocumented in this encounter Care Teams Pipe Covering Molder Relationship Specialty Start Date End Date Cheo Santoyo DO [address] [place] [phone] PCP - General Family Medicine 07/06/23 documented as of this encounter
--- OUTSIDE RECORDS SUMMARY | 2024-01-11 22:18 | XMS_ITS | Encounter Summary ---
Author Organization Jose Alejandro Pantoja [facility] Address [address] [place] [address] Care Team Providers Care Stator Plate Washer Name Role Phone Carter Santoyoony Moshe REYES Primary Care Provider [phone] Encounter Details Date Type Department Care Team (Late st Contact Info) Description 09/11/2020 Legacy Historical [facility]ORICAL Georgi Butterfield MD [address] [place] [address] Social History Tobacco Use Types Packs/Day Years [...] AM EDT Office Visit [facility] [address] [facility] [address] [place] [address] Martell Calderon MD 214 [facility] [address] [place] [address] TREMORS/ MEDICARE, FOR LIFE 03/28/2024 8:30 AM EDT Office Visit Primary Care - [address] [address] [place] [address] [place] [phone] AWV 04/06/2024 9:45 AM EST Lab [place] [facility] 20[address] [facility] [address] [place] [address] CBCMP,CEA,FEST 04/06/2024 10:15 AM EST Office Visit [place] [facility] 2084 [facility] [address] [place] [address] Georgi Butterfield MD [address] [place] [address] 6 MTH FU W/LABS, REV SCAN 04/13/2024 9:30 AM EST Office Visit Surgical Oncology - [facility] [address] [facility] [address] [place] [address] Delvis Cheek MD 125 [facility] 660 [place] [address] 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 [address] [place] [address] Karly Bautista, BURT 180 [facility] [address] [place] [address] annual visit from date of surgery May/Jul 2024 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 documented as of this encounter Visit Diagnoses Not on filedocumented in this encounter Care Teams Stator Plate Washer Relationship Specialty Start Date End Date Cheo Santoyo DO [address] [place] [phone] PCP - General Family Medicine 07/06/23 documented as of this encounter
--- OUTSIDE RECORDS SUMMARY | 2024-01-11 22:18 | XMS_ITS | Encounter Summary ---
Author Organization Jose Alejandro Raymundolinnea [facility] Address [id number] [place] [address] Care Team Providers Care Shipping Inspector Name Role Phone Unavailable Primary Care Provider Unavailabl e Encounter Details Date Type Department Care Team (Late st Contact Info) Description 10/13/2021 10:30 AM EDT - 10/13/2021 1:05 PM EDT Hospital Encounter [facility] HISTORICAL CONVERSIONS [address] [place], [place] [id number] Yola Lynne Jr., MD [address] [facility] [address] [place] [address] Social History Tobacco Use Types Packs/Day Years Used Date Smoking Tobacco: Never Assessed Sex and Gender Information Value Date Recorded Sex Assigned at Not on file Gender Identity Not on file Sexual Orientation Not on file documented as of this encounter Discharge Summaries * Georgi Andersen PA - 10/13/2021 11:36 AM EDT Images from the original note were not included. Inpatient Patient Summary [facility] Management ? [address] [place], [place] [address] Patient Discharge Instructions Name: TESS COLEMAN Current Date: 10/13/2021 11:36:01 : 1955 FIN: [id number] Patient Address: [address] [facility] [address] Patient Primary Care Provider: Name: NADIA COLMENARES Immunizations Provided: Discharge Diagnosis: Complex tear of medial meniscus of left knee Discharged To: ANTICIPATED%> Home Treatments: ANTICIPATED%> Devices/Equipment: REHAB%> Post Hospital Services: HOSPITAL SERVICES%> Professional Skilled Services: SKILLED SERVICES%> Special Services and Community Resources: SERV AND COMM RES, ANTICIPATED%> Mode of Discharge Transportation: TRANSPORTATION%> Discharge Orders Comment: Medications During the course of your visit, your medication list was updated with the most current information. The details of those changes are reflected below: New Medications [id number] [place], [address] [place], [place] [id number], [phone] HYDROcodone-acetaminophen (Waukee 325 mg-7.5 mg oral tablet) 1-2 tabs Oral (given by mouth) every 4 hours as needed severe pain (8-10) for 5 Days. Refills: 0. Last Dose: Medications That Were Updated - Follow Current Instructions [facility], [address] [place] [address] [address] [place], [place] [id number], [phone] Current aspirin (aspirin 81 mg oral delayed release tablet) 1 Tabs Oral (given by mouth) every day for 14 Days. BLOOD CLOT PREVENTION. Refills: 0. Last Dose: Other Medications Current aspirin (aspirin 81 mg oral delayed release tablet) 1 Tabs Oral (given by mouth) once a day(in the morning). Last Dose: Medications that have not changed Other Medications atorvastatin (Lipitor 40 mg oral tablet) 1 Tabs Oral (given by mouth) once a day (in the morning). Last Dose: cyclobenzaprine (cyclobenzaprine 10 mg oral tablet) 1 Tabs Oral (given by mouth) 3 times a day as needed., THIS MEDICATION IS ASSOCIATED WITH AN INCREASED RISK OF FALLS. Last Dose: dulaglutide (Trulicity Pen 0.75 mg/0.5 mL subcutaneous solution) 1.5 Milligram Subcutaneous (under the skin) every week. ON WEDNESDAY. Last Dose: empagliflozin (Jardiance 25 mg oral tablet) 1 Tabs Oral (given by mouth) once a day (in the morning). Last Dose: esomeprazole (esomeprazole 40 mg oral delayed release capsule) 1 Capsules Oral (given by mouth) 2 times a day as needed indigestion. Last Dose: metFORMIN 1,000 Milligram Oral (given by mouth) 2 times a day. Last Dose: multivitamin with minerals (Centrum Silver oral tablet) 1 Tabs Oral (given by mouth) once a day (inthe morning). Last Dose: olmesartan (Benicar 20 mg oral tablet) 1 Tabs Oral (given by mouth) once a day (in the morning). Last Dose: ubiquinone (elppa CoQ10 50 mg oral capsule) 2 Capsules Oral (given by mouth) once a day (in the morning). Last Dose: [facility] would like to thank you for allowing us to assist you with your healthcare needs. The following includes patient education materials and information regarding your injury/illness. TESS COLEMAN has been given the following list of follow-up instructions, prescriptions, and patient education materials: Follow-up Instructions: With: Address: When: YOLA LYNNE [address], [address] [place], [place] [id number] A.C. Moore (1) In 2 weeks Comments: Call Dinorah [phone] for appointment day and time. With: Address: When: NADIA Gracia [facility], [address] [place] [address] Business (1) It is important to always keep an active list of medications available so that you can share with other providers and manage your medications appropriately. As an additional courtesy, we are also providing you with your final active medications list that you can keep with you. aspirin (aspirin 81 mg oral delayed release tablet) 1 Tabs Oral (given by mouth) once a day (in themorning). aspirin (aspirin 81 mg oral delayed release tablet) 1 Tabs Oral (given by mouth) every day for 14 Days. BLOOD CLOT PREVENTION. Refills: 0. atorvastatin (Lipitor 40 mg oral tablet) 1 Tabs Oral (given by mouth) once a day (in the morning). cyclobenzaprine (cyclobenzaprine 10 mg oral tablet) 1 Tabs Oral (given by mouth) 3 times a day as needed., THIS MEDICATION IS ASSOCIATED WITH AN INCREASED RISK OF FALLS. dulaglutide (Trulicity Pen 0.75 mg/0.5 mL subcutaneous solution) 1.5 Milligram Subcutaneous (under the skin) every week. ON WEDNESDAY. empagliflozin (Jardiance 25 mg oral tablet) 1 Tabs Oral (given by mouth) once a day (in the morning). esomeprazole (esomeprazole 40 mg oral delayed release capsule) 1 Capsules Oral (given by mouth) 2 times a day as needed indigestion. HYDROcodone-acetaminophen (Waukee 325 mg-7.5 mg oral tablet) 1-2 tabs Oral (given by mouth) every 4 hours as needed severe pain (8-10) for 5 Days. Refills: 0. metFORMIN 1,000 Milligram Oral (given by mouth) 2 times a day. multivitamin with minerals (Centrum Silver oral tablet) 1 Tabs Oral (given by mouth) once a day (inthe morning). olmesartan (Benicar 20 mg oral tablet) 1 Tabs Oral (given by mouth) once a day (in the morning). ubiquinone (elppa CoQ10 50 mg oral capsule) 2 Capsules Oral (given by mouth) once a day (in the morning). Take only the medications listed above. Contact your doctor prior to taking any medications not on this list. Discharge instructions, if any, will display below Instructions for Diet: INSTRUCTIONS FOR DIET%> Instructions for Supplements: SUPPLEMENT INSTRUCTIONS%> Instructions for Activity: INSTRUCTIONS FOR ACTIVITY%> Instructions for Wound Care: INSTRUCTIONS FOR WOUND CARE%> Medication leaflets, if any, will display below Patient education materials, if any, will display below IS IT A STROKE? Act FAST and Check for these signs: FACE Does the face look uneven? ARM Does one arm drift down? SPEECH Does their speech sound strange? TIME Call at any sign of stroke Heart Attack Signs Chest discomfort: Most heart attacks involve discomfort in the center of the chest and lasts more than a few minutes, or goes away and comes back. It can feel like uncomfortable pressure, squeezing, fullness or pain. Discomfort in upper body: Symptoms can include pain or discomfort in one or both arms, back, neck, jaw or stomach. Shortness of breath: With or without discomfort. Other signs: Breaking out in a cold sweat, nausea, or lightheaded. Remember, MINUTES DO MATTER. If you experience any of these heart attack warning signs, call to get immediate medical attention! [facility] allows you to manage your health, view your test results, and retrieve your discharge documents from your hospital stay securely and conveniently from your computer. To begin the enrollment process, visit [email or web address]. Click on ???Sign up now?? under [facility]. * Georgi Andersen PA - 10/13/2021 11:36 AM EDT Inpatient Clinical Summary [facility] Post-Acute Care Transfer Instructions PERSON INFORMATION Name: TESS COLEMAN FIN#: [id number] [facility] Admitting Physician: TOM LYNNE Attending Physician: TOM LYNNE PCP: NADIA COLMENARES Discharge Diagnosis: Complex tear of medial meniscus of left knee Comment: PATIENT EDUCATION INFORMATION Instructions: Medication Leaflets: Follow-up: With: Address: When: YOLA LYNNE [address], [address] [place], [place] [id number] Business (1) In 2 weeks Comments: Call Dinorah [phone] for appointment day and time. With: Address: When: NADIA COLMENARES [address] [facility], [address] [place] [address] Business (1) MEDICATION LIST Medication Reconciliation at Discharge: New Medications [id number] [place], [address] [place], [place] [id number], [phone] HYDROcodone-acetaminophen ([place] 325 mg-7.5 mg oral tablet) 1-2 tabs Oral (given by mouth) every 4 hours as needed severe pain (8-10) for 5 Days. Refills: 0. Last Dose: Medications That Were Updated - Follow Current Instructions [facility], [address] [facility] [address] [place], [place] [id number], [phone] Current aspirin (aspirin 81 mg oral delayed release tablet) 1 Tabs Oral (given by mouth) every day for 14 Days. BLOOD CLOT PREVENTION. Refills: 0. Last Dose: Other Medications Current aspirin (aspirin 81 mg oral delayed release tablet) 1 Tabs Oral (given by mouth) once a day(in the morning). Last Dose: Medications that have not changed Other Medications atorvastatin (Lipitor 40 mg oral tablet) 1 Tabs Oral (given by mouth) once a day (in the morning). Last Dose: cyclobenzaprine (cyclobenzaprine 10 mg oral tablet) 1 Tabs Oral (given by mouth) 3 times a day as needed., THIS MEDICATION IS ASSOCIATED WITH AN INCREASED RISK OF FALLS. Last Dose: dulaglutide (Trulicity Pen 0.75 mg/0.5 mL subcutaneous solution) 1.5 Milligram Subcutaneous (under the skin) every week. ON WEDNESDAY. Last Dose: empagliflozin (Jardiance 25 mg oral tablet) 1 Tabs Oral (given by mouth) once a day (in the morning). Last Dose: esomeprazole (esomeprazole 40 mg oral delayed release capsule) 1 Capsules Oral (given by mouth) 2 times a day as needed indigestion. Last Dose: metFORMIN 1,000 Milligram Oral (given by mouth) 2 times a day. Last Dose: multivitamin with minerals (Centrum Silver oral tablet) 1 Tabs Oral (given by mouth) once a day (inthe morning). Last Dose: olmesartan (Benicar 20 mg oral tablet) 1 Tabs Oral (given by mouth) once a day (in the morning). Last Dose: ubiquinone (elppa CoQ10 50 mg oral capsule) 2 Capsules Oral (given by mouth) once a day (in the morning). Last Dose: Patient???s Final Home Medication List Upon Discharge: aspirin (aspirin 81 mg oral delayed release tablet) 1 Tabs Oral (given by mouth) every day for 14 Days. BLOOD CLOT PREVENTION. Refills: 0. aspirin (aspirin 81 mg oral delayed release tablet) 1 Tabs Oral (given by mouth) once a day (in themorning). atorvastatin (Lipitor 40 mg oral tablet) 1 Tabs Oral (given by mouth) once a day (in the morning). cyclobenzaprine (cyclobenzaprine 10 mg oral tablet) 1 Tabs Oral (given by mouth) 3 times a day as needed., THIS MEDICATION IS ASSOCIATED WITH AN INCREASED RISK OF FALLS. dulaglutide (Trulicity Pen 0.75 mg/0.5 mL subcutaneous solution) 1.5 Milligram Subcutaneous (under the skin) every week. ON WEDNESDAY. empagliflozin (Jardiance 25 mg oral tablet) 1 Tabs Oral (given by mouth) once a day (in the morning). esomeprazole (esomeprazole 40 mg oral delayed release capsule) 1 Capsules Oral (given by mouth) 2 times a day as needed indigestion. HYDROcodone-acetaminophen (Waukee 325 mg-7.5 mg oral tablet) 1-2 tabs Oral (given by mouth) every 4 hours as needed severe pain (8-10) for 5 Days. Refills: 0. metFORMIN 1,000 Milligram Oral (given by mouth) 2 times a day. multivitamin with minerals (Centrum Silver oral tablet) 1 Tabs Oral (given by mouth) once a day (inthe morning). olmesartan (Benicar 20 mg oral tablet) 1 Tabs Oral (given by mouth) once a day (in the morning). ubiquinone (elppa CoQ10 50 mg oral capsule) 2 Capsules Oral (given by mouth) once a day (in the morning). Comment: ORDERS Order Name Order Details documented in this encounter Medications at Time [...] Visit Neurology - [facility] [address] [facility] [address] [place] [phone] Martell Calderon MD 2[address] [facility] [address] [place] [address] TREMORS/ MEDICARE, FOR LIFE 03/28/2024 8:30 AM EDT Office Visit Primary Care - [address] [address] Cheo Santoyo [address] [phone] AWV 04/06/2024 9:45 AM EST Lab [facility] - [facility] [address] [facility] [address] [place] [address] CBCMP,CEA,FEST 04/06/2024 10:15 AM EST Office Visit [facility] - [facility] [address] [facility] [address] [place] [address] Georgi Butterfield MD [address] [place] [address] 6 MTH FU W/LABS, REV SCAN 04/13/2024 9:30 AM EST Office Visit Surgical Oncology - [facility] [address] [facility] [address] [place] [address] Delvis Cheek MD 125 [facility][Note 3] [address] [place] [address] 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 documented as of this encounter Procedures Procedure Name Priority Date/Time Associated Diagnosis Comments POCT GLUCOSE Routine 10/13/2021 11:05 AM EDT documented in this encounter Results * (ABNORMAL) POCT Glucose (10/13/2021 11:05 AM EDT) POC Glucose 125.0(H) 65.0 - 110.0 mg/dL [facility] CERNER CONVERSION Comment: RH - JISC Performing Lab: ??RH [id number] POC 10/13/2021 11:0 5 AM EDT 10/13/2021 11:05 AM EDT Comment:Blood Yola Lynne Jr., MD POINT OF CAR E TEST ORDERABLES [facility] CERNER CONVERSION documented in this encounter Visit Diagnoses Not on filedocumented in this encounter
--- OUTSIDE RECORDS SUMMARY | 2024-01-11 22:18 | XMS_ITS | Encounter Summary ---
Author Organization Jose Alejandro Pantoja [facility] Address [address] [place] [address] Care Team Providers Care Change Lead Name Role Phone YarelisCheo friend Moshe REYES Primary Care Provider Encounter Details [...] Office Visit Neurology - [facility] [address] [facility] [address] [place] [address] Martell Calderon MD 2144 [facility] [address] [place] [address] TREMORS/ MEDICARE, FOR LIFE 03/28/2024 8:30 AM EDT Office Visit Primary Care - [address] [phone] Cheo Santoyo, [address] [address] AWV 04/06/2024 9:45 AM EST Lab [facility] - [facility] [address] [facility] [address] [place] [address] CBCMP,CEA,FEST 04/06/2024 10:15 AM EST Office Visit [facility] - [facility] [address] [facility] [address] [place] [address] Georgi Butterfield MD [address] [place] [address] 6 MTH FU W/LABS, REV SCAN 04/13/2024 9:30 AM EST Office Visit Surgical Oncology - [facility] [address] [facility] [address] [place] [phone] Delvis Cheek MD 125 [facility] 660 [place] [phone] 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 documented as of this encounter Visit Diagnoses Not on filedocumented in this encounter Care Teams Change Lead Relationship Specialty Start Date End Date Cheo Santoyo DO [address] [place] [phone] PCP - General Family Medicine 07/06/23 documented as of this encounter
--- OUTSIDE RECORDS SUMMARY | 2024-01-11 22:18 | XMS_ITS | Encounter Summary ---
Author Organization Jose Alejandro Raymundolinnea [facility] Address [address] [place] [address] Care Team Providers Care Supply Service Worker Name Role Phone Unavailable Primary Care Provider Unavailabl e Encounter Details Date Type Department Care Team (Late st Contact Info) Description 07/21/2021 8:10 AM EST - 07/21/2021 11:49 AM EST Hospital Encounter [facility] HISTORICAL CONVERSIONS [address] [place] [address] Maurice Wood II, MD [address] [facility] [address] [place] [phone] Social History Tobacco Use Types Packs/Day Years [...] Office Visit Neurology - [address]an [address] Dr. [address] [place] [phone] Martell Calderon MD 2144 [facility] [address] [place] [address] TREMORS/ MEDICARE, FOR LIFE 03/28/2024 8:30 AM EDT Office Visit Primary Care - [address] [phone] Cheo Santoyo DO [address] [place] [phone] AWV 04/06/2024 9:45 AM EST Lab [facility] - [facility] [place] [address] [facility] [address] [place] [address] CBCMP,CEA,FEST 04/06/2024 10:15 AM EST Office Visit [facility] - [facility] [place] [address] [facility] [address] [place] [address] Georgi Butterfield MD [address] [place] [address] 6 MTH FU W/LABS, REV SCAN 04/13/2024 9:30 AM EST Office Visit Surgical Oncology - [facility] [place] [address] [facility] [address] [place] [address] Delvis Cheek MD 125 [facility] 660 [place] [address] 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 documented as of this encounter Procedures Procedure Name Priority Date/Time Associated Diagnosis Comments POCT GLUCOSE Routine 07/21/2021 9:34 AM EST documented in this encounter Results * (ABNORMAL) POCT Glucose (07/21/2021 9:34 AM EST) POC Glucose 137.0(H) 70.0 - 120.0 mg/dL RS CERNER CONVERSION Comment: RH - JISC Performing Lab: ??RH [id number] POC 07/21/2021 9:34 AM EST 07/21/2021 9:34 AM EST Comment:Blood Maurice Wood II, MD POINT OF CARE ALLNA T ORDERABLES RS CERNER CONVERSION documented in this encounter Visit Diagnoses Not on filedocumented in this encounter
--- OUTSIDE RECORDS SUMMARY | 2024-01-11 22:18 | XMS_ITS | Encounter Summary ---
Author Organization Jose Alejandro Pantoja [facility] Address [address] [place] [address] Care Team Providers Care Occupational Work Experience Teacher Name Role Phone Carter Santoyoony Moshe REYES Primary Care Provider [phone] Encounter Details Date Type Department Care Team (Late st Contact Info) Description 10/09/2020 [facility] Historical Encounter [facility] H[facility]ORICAL Georgi Butterfield MD [address] [place] [address] Social History Tobacco Use Types Packs/Day Years [...] AM EDT [facility] [address] [facility] [address] [place] [address] Martell Calderon MD 214 [facility] [address] [place] [address] TREMORS/ MEDICARE, FOR LIFE 03/28/2024 8:30 AM EDT Office Visit Primary Care - [address] [address] [place] [address] [place] [address] AWV 04/06/2024 9:45 AM EST Lab [facility] 20[address] [facility] [address] [place] [address] CBCMP,CEA,FEST 04/06/2024 10:15 AM EST Office Visit [facility] 20[address] [facility] [address] [place] [address] Georgi Butterfield MD [address] [place] [address] 6 MTH FU W/LABS, REV SCAN 04/13/2024 9:30 AM EST Office Visit Surgical Oncology - [facility] [address] [facility] [address] [place] [address] Delvis Cheek MD 125 [facility] 660 [place] [address] 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 documented as of this encounter Visit Diagnoses Not on filedocumented in this encounter Care Teams Occupational Work Experience Teacher Relationship Specialty Start Date End Date Cheo Santoyo DO [address] [place] [phone] PCP - General Family Medicine 07/06/23 documented as of this encounter
--- OUTSIDE RECORDS SUMMARY | 2024-01-11 22:18 | XMS_ITS | Encounter Summary ---
Author Organization Jose Alejandro Pantoja [facility] Address [address] [place] [address] Care Team Providers Care Technical Professional Name Role Phone Cheo Santoyo Primary Care Provider [phone] Encounter Details Date Type Department Care Team (Late st Contact Info) Description 09/19/2021 [facility] Historical Encounter [facility] HISTORICAL CONVERSIONS [address] [place], [place] [phone] Maurice Wood II, MD 0 [facility] [address] [place] [phone] Social History Tobacco Use Types Packs/Day Years [...] Neurology - [facility] [address] [facility] [address] [place] [address] Martell Calderon MD 214 [facility] [address] [place] [address] TREMORS/ MEDICARE, FOR LIFE 03/28/2024 8:30 AM EDT Office Visit Primary Care - [address] [address] [place] [address] [place] [phone] AWV 04/06/2024 9:45 AM EST Lab [facility] - [facility] [address] [facility] [address] [place] [address] CBCMP,CEA,FEST 04/06/2024 10:15 AM EST Office Visit [facility] - [facility] [address] [facility] [address] [place] [address] Georgi Butterfield MD [address] [place] [address] 6 MTH FU W/LABS, REV SCAN 04/13/2024 9:30 AM EST Office Visit Surgical Oncology - [facility] [address] [facility] [address] [place] [phone] Delvis Cheek MD 125 [facility] 660 [place] [phone] 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 [address] [place] [phone] Karly Bautista, PA [address] [place] [phone] annual visit from date of surgery May/Jul 2024 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 documented as of this encounter Visit Diagnoses Not on filedocumented in this encounter Care Teams Technical Professional Relationship Specialty Start Date End Date Cheo Santoyo DO [address] [place] [phone] PCP - General Family Medicine 07/06/23 documented as of this encounter
--- OUTSIDE RECORDS SUMMARY | 2024-01-11 22:18 | XMS_ITS | Encounter Summary ---
Author Organization [facility] Address [address] [place] [address] Care Team Providers Care Production Finisher Name Role Phone Cheo Santoyo Primary Care Provider [phone] Encounter Details Date Type Department Care Team (Late st Contact Info) Description 10/07/2021 Legacy Historical Encounter [facility] HISTORICAL CONVERSIONS [address] [place], [place] [id number] Dave Lynne Jr., MD [address] [place], [place] [id number] Social History Tobacco Use Types Packs/Day Years [...] Visit Neurology - [facility] [address] [facility] [address] [place] [address] Martell Calderon MD 214 [facility] [address] [place] [address] TREMORS/ MEDICARE, FOR LIFE 03/28/2024 8:30 AM EDT Office Visit Primary Care - [address] [address] [place] [address] [place] [address] AWV 04/06/2024 9:45 AM EST Lab [facility] - [facility] [address] [facility] [address] [place] [address] CBCMP,CEA,FEST 04/06/2024 10:15 AM EST Office Visit [facility] - [facility] [address] [facility] [address] [place] [address] Georgi Butterfield MD 3510 [facility] [address] [place] [address] 6 MTH FU W/LABS, REV SCAN 04/13/2024 9:30 AM EST Office Visit Surgical Oncology - [facility] [address] [facility] [address] [place] [address] Delvis Cheek MD 125 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 [address] [place] [phone] Karly Bautista, PA [address] [place] [address] annual visit from date of surgery May/Jul 2024 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 documented as of this encounter Visit Diagnoses Not on filedocumented in this encounter Care Teams Production Finisher Relationship Specialty Start Date End Date Cheo Santoyo DO [address] [place] [phone] PCP - General Family Medicine 07/06/23 documented as of this encounter
--- OUTSIDE RECORDS SUMMARY | 2024-01-11 22:18 | XMS_ITS | Encounter Summary ---
Author Organization Jose Alejandro [facility] Address [address] [place] [address] Care Team Providers Care Junior Engineer Name Role Phone YarelisCheo friend Moshe REYES Primary Care Provider [phone] Encounter Details Date Type Department Care Team (Late st Contact Info) Description 10/30/2020 Legacy Historical Encounter [facility] [...] AM EDT Office Visit Neurology - [facility] [address] [facility] [address] [place] [address] Martell Calderon MD 2144 [facility] [address] [place] [address] TREMORS/ MEDICARE, FOR LIFE 03/28/2024 8:30 AM EDT Office Visit Primary Care - [address] [phone] Cheo Santoyo, [address] [address] AWV 04/06/2024 9:45 AM EST [facility] - [facility] [address] [facility] [address] [place] [address] CBCMP,CEA,FEST 04/06/2024 10:15 AM EST Office Visit [facility] - [facility] [address] [facility] [address] [place] [address] Georgi Butterfield MD [address] [place] [address] 6 MTH FU W/LABS, REV SCAN 04/13/2024 9:30 AM EST Office Visit Surgical Oncology - [facility] [address] [facility] [address] [place] [phone] Delvis Cheek MD 125 [facility] 660 [place] [address] 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 documented as of this encounter Visit Diagnoses Not on filedocumented in this encounter Care Teams Junior Engineer Relationship Specialty Start Date End Date Cheo Santoyo DO [address] [place] [phone] PCP - General Family Medicine 07/06/23 documented as of this encounter
--- OUTSIDE RECORDS SUMMARY | 2024-01-11 22:18 | XMS_ITS | Encounter Summary ---
Author Organization Jose Alejandro Pantoja [facility] Address [address] [place] [address] Care Team Providers Care Solid Die Cutter Name Role Phone Carter Santoyoony Moshe REYES Primary Care Provider [phone] Encounter Details Date Type Department Care Team (Late st Contact Info) Description 03/24/2021 Legacy Historical Encounter [facility] HISTORICAL Georgi Butterfield MD [address] [place] [address] Social History Tobacco Use Types Packs/Day Years [...] 9:00 AM EDT [facility] [address] [facility] [address] [place] [address] Martell Calderon MD 214 [facility] [address] [place] [address] TREMORS/ MEDICARE, FOR LIFE 03/28/2024 8:30 AM EDT Office Visit Primary Care - [address] [address] [place] [address] [place] [address] AWV 04/06/2024 9:45 AM EST [facility] 2084 [facility] [address] [place] [address] CBCMP,CEA,FEST 04/06/2024 10:15 AM EST Office [facility] 2084 [facility] [address] [place] [address] Georgi Butterfield MD [address] [place] [address] 6 MTH FU W/LABS, REV SCAN 04/13/2024 9:30 AM EST Office Visit Surgical Oncology - [facility] [address] [facility] [address] [place] [address] Delvis Cheek MD 125 [facility] 660 [place] [address] 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 documented as of this encounter Visit Diagnoses Not on filedocumented in this encounter Care Teams Solid Die Cutter Relationship Specialty Start Date End Date Cheo Santoyo DO [address] [place] [phone] PCP - General Family Medicine 07/06/23 documented as of this encounter
--- OUTSIDE RECORDS SUMMARY | 2024-01-11 22:18 | XMS_ITS | Encounter Summary ---
Author Organization [facility] Ale[facility] Address [address] [place] [address] Care Team Providers Care Fiberglass Dowel Drawing Operator Name Role Phone YarelisCheo friend Moshe REYES Primary Care Provider [phone] Encounter Details Date Type Department Care Team (Late st Contact Info) Description 09/19/2020 Legacy Historical Encounter [facility] & [...] EDT Office Visit Neurology - [facility] [address] [facility] [address] [place] [address] Martell Calderon MD 2144 [facility] [address] [place] [address] TREMORS/ MEDICARE, FOR LIFE 03/28/2024 8:30 AM EDT Office Visit Primary Care - [address] [phone] Cheo Santoyo, [address] [address] AWV 04/06/2024 9:45 AM EST [facility] - [facility] 20[address] [facility] [address] [place] [address] CBCMP,CEA,FEST 04/06/2024 10:15 AM EST Office Visit [facility] - [facility] 20[address] [facility] [address] [place] [address] Georgi Butterfield MD [address] [place] [address] 6 MTH FU W/LABS, REV SCAN 04/13/2024 9:30 AM EST Office Visit Surgical Oncology - [facility] 2084 [facility] [address] [place] [address] Delvis Cheek MD 125 [facility] 660 [place] [address] 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 documented as of this encounter Visit Diagnoses Not on filedocumented in this encounter Care Teams Fiberglass Dowel Drawing Operator Relationship Specialty Start Date End Date Cheo Santoyo DO [address] [place] [phone] PCP - General Family Medicine 07/06/23 documented as of this encounter
--- OUTSIDE RECORDS SUMMARY | 2024-01-11 22:18 | XMS_ITS | Encounter Summary ---
Author Organization Jose Alejandro [facility] Address [address] [place] [address] Care Team Providers Care Alternative Medicine Practitioner Name Role Phone Cheo Santoyo Primary Care Provider [phone] Encounter Details Date Type Department Care Team (Late st Contact Info) Description 08/25/2021 Legacy Historical Encounter [facility] HISTORICAL CONVERSIONS [address] [place], [place] [phone] Cherie Pope, PA [address] [id number] Social History Tobacco Use Types Packs/Day Years [...] Office Visit Neurology - [facility] [address] [facility] [address] [place] [address] Martell Calderon MD 2144 [facility] [address] [place] [address] TREMORS/ MEDICARE, FOR LIFE 03/28/2024 8:30 AM EDT Office Visit Primary Care - [address] [address] Cheo Santoyo, 1112 [place] [address] AWV 04/06/2024 9:45 AM EST [facility] - [facility] [address] [facility] [address] [place] [address] CBCMP,CEA,FEST 04/06/2024 10:15 AM EST Office Visit [facility] - [facility] [address] [facility] [address] [place] [address] Georgi Butterfield MD [address] [place] [address] 6 MTH FU W/LABS, REV SCAN 04/13/2024 9:30 AM EST Office Visit Surgical Oncology - [facility] [address] [facility] [address] [place] [address] Delvis Cheek MD 125 [facility] 660 [place] [address] 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 documented as of this encounter Visit Diagnoses Not on filedocumented in this encounter Care Teams Alternative Medicine Practitioner Relationship Specialty Start Date End Date Cheo Santoyo DO [address] [place] [phone] PCP - General Family Medicine 07/06/23 documented as of this encounter
--- OUTSIDE RECORDS SUMMARY | 2024-01-11 22:18 | XMS_ITS | Encounter Summary ---
Author Organization Jose Alejandro [facility] Address [address] [place] [address] Care Team Providers Care Emergency Doctor Name Role Phone Cheo Santoyo Primary Care Provider [phone] Encounter Details Date Type Department Care Team (Late st Contact Info) Description 09/16/2021 Legacy Historical Encounter [facility] HISTORICAL CONVERSIONS [address] [place], [place] [id number] Georgi Andersen, PA 2093 [facility] [address] [place], [place] [phone] Social History Tobacco Use Types Packs/Day Years [...] Neurology - [facility] 2144 [facility] [address] [place] [address] Martell Calderon MD 214 [facility] [address] [place] [address] TREMORS/ MEDICARE, FOR LIFE 03/28/2024 8:30 AM EDT Office Visit Primary Care - [address] [address] Cheo Santoyo, 1112 [place] [address] AWV 04/06/2024 9:45 AM EST [facility] - [facility] 20[address] [facility] [address] [place] [address] CBCMP,CEA,FEST 04/06/2024 10:15 AM EST Office Visit [facility] - [facility] 20[address] [facility] [address] [place] [address] Georgi Butterfield MD [address] [place] [address] 6 MTH FU W/LABS, REV SCAN 04/13/2024 9:30 AM EST Office Visit Surgical Oncology - [facility] 20[address] [facility] [address] [place] [address] Delvis Cheek MD 125 [facility] 660 [place] [address] 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 documented as of this encounter Visit Diagnoses Not on filedocumented in this encounter Care Teams Emergency Doctor Relationship Specialty Start Date End Date Cheo Santoyo DO [address] [place] [phone] PCP - General Family Medicine 07/06/23 documented as of this encounter
--- OUTSIDE RECORDS SUMMARY | 2024-01-11 22:18 | XMS_ITS | Encounter Summary ---
Author Organization [facility] Address [address] [place] [address] Care Team Providers Care Skilled Helper Name Role Phone Cheo Santoyo Primary Care Provider [phone] Encounter Details Date Type Department Care Team (Late st Contact Info) Description 07/30/2021 Legacy Historical Encounter [facility] HISTORICAL CONVERSIONS [address] [place], [place] [address] Cherie Pope, PA [address] [id number] Social History Tobacco Use Types Packs/Day Years [...] - [facility] [address] [facility] [address] [place] [address] Martell Calderon MD 2144 [facility] [address] [place] [address] TREMORS/ MEDICARE, FOR LIFE 03/28/2024 8:30 AM EDT Office Visit Primary Care - [address] [address] Cheo Santoyo, 1112 [place] [address] AWV 04/06/2024 9:45 AM EST Lab [facility] - [facility] [address] [facility] [address] [place] [address] CBCMP,CEA,FEST 04/06/2024 10:15 AM EST Office Visit [facility] - [facility] [address] [facility] [address] [place] [address] Georgi Butterfield MD [address] [place] [address] 6 MTH FU W/LABS, REV SCAN 04/13/2024 9:30 AM EST Office Visit Surgical Oncology - [facility] [address] [facility] [address] [place] [address] Delvis Cheek MD 125 [facility] 660 [place] [address] 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 documented as of this encounter Visit Diagnoses Not on filedocumented in this encounter Care Teams Skilled Helper Relationship Specialty Start Date End Date Cheo Santoyo DO [address] [place] [phone] PCP - General Family Medicine 07/06/23 documented as of this encounter
--- OUTSIDE RECORDS SUMMARY | 2024-01-11 22:18 | XMS_ITS | Encounter Summary ---
Author Organization Jos eAlejandro [facility] Address [address] [place] [address] Care Team Providers Care Farm Service Consultant Name Role Phone Unavailable Primary Care Provider Unavailabl e Encounter Details Date Type Department Care Team (Late st Contact Info) Description 03/28/2021 9:15 AM EDT - 03/28/2021 11:59 PM EDT Hospital Encounter [facility] HISTORICAL CONVERSIONS [address] [place], [place] [phone] Georgi Butterfield MD 3510 [facility] [address] [place] [address] Social History Tobacco Use Types Packs/Day Years [...] Office Visit Neurology - [address]an [address] Dr. [address] [place] [address] Martell Calderon MD 2144 [facility] [address] [place] [address] TREMORS/ MEDICARE, FOR LIFE 03/28/2024 8:30 AM EDT Office Visit Primary Care - [address] [address] [place] [address] [place] [address] AWV 04/06/2024 9:45 AM EST Lab [facility] - [facility] 2084 [facility] [address] [place] [address] CBCMP,CEA,FEST 04/06/2024 10:15 AM EST Office Visit [facility] - [facility] 20[address] [facility] [address] [place] [address] Georgi Butterfield MD [address] [place] [address] 6 MTH FU W/LABS, REV SCAN 04/13/2024 9:30 AM EST Office Visit Surgical Oncology - [facility] 2084 [facility] [address] [place] [address] Delvis Cheek MD 125 [facility] 660 [place] [address] 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 [address] [place] [phone] Karly Bautista PA [address] [place] [address] annual visit from date of surgery Jul 2024 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 documented as of this encounter Procedures Procedure Name Priority Date/Time Associated Diagnosis Comments PET CT SKULL BASE TO MID THIGH Routine 03/24/2021 1:01 PM EDT documented in this encounter Results * PET Tumor Imaging Skull Base to Midthigh (03/24/2021 1:01 PM EDT) Anatomical Region Laterality Modality Other 03/24/2021 1:01 PM EDT 03/28/2021 3:07 PM EDT Narrative 03/28/2021 4:42 PM EDT FDG PET-CT skull base to mid-thighs: 03/28/21 INDICATION: Malignant neoplasm of cecum. Right hemicolectomy 07/16/2020, interval chemotherapy, last treatment 03/07/2021. Restaging COMPARISON: Outside CT 06/10/2020, lumbar MRI 12/22/2019 TECHNIQUE: Serum glucose 96 mg/dL. 15.6 mCi 18F-fluorodeoxyglucose (FDG) IV right antecubital. Injection time 1:52 PM, PET scan time 2:46 PM. PET imaging skull base to mid thighs, CT for attenuation correction and colocalization. FINDINGS: NECK: Normal physiologic activity. No cervical lymphadenopathy. CHEST: Mild three-vessel scattered coronary calcification. Heart is prominent. No adenopathy or abnormal lymph node activity. No concerning pulmonary activity. No pulmonary nodules. ABDOMEN/PELVIS: No elevated solid organ activity. Adrenal glands are normal. Mild aortic calcification. No adenopathy or abnormal lymph node activity. Changes of right hemicolectomy noted. No concerning activity or mass at the resection margin. MARROW: Lumbar fixation at L2-3 and inferior lumbar DDD. Prior right humeral surgical hardware implantation as well. ACDF. No concerning marrow activity or aggressive bone lesion. IMPRESSION: As compared to available prior CT, interval right hemicolectomy. Negative for recurrent neoplasm by PET/CT. Final Releasing Radiologist: ?? BRIDGET, ??MICHAELA Released Date and Time: ??03/28/21 16:40 Procedure Note Georgi Stockton MD - 12/24/2021 FDG PET-CT skull base to mid-thighs: 03/28/21 INDICATION: Malignant neoplasm of cecum. Right hemicolectomy07/16/2020, interval chemotherapy, last treatment 03/07/2021. Restaging COMPARISON: Outside CT 06/10/2020, lumbar MRI 12/22/2019 TECHNIQUE: Serum glucose 96 mg/dL. 15.6 mCi 18F-fluorodeoxyglucose (FDG)IV right antecubital. Injection time 1:52 PM, PET scan time 2:46 PM. PETimaging skull base to mid thighs, CT for attenuation correction andcolocalization. FINDINGS: NECK: Normal physiologic activity. No cervical lymphadenopathy. CHEST: Mild three-vessel scattered coronary calcification. Heart isprominent. No adenopathy or abnormal lymph node activity. No concerning pulmonaryactivity. No pulmonary nodules. ABDOMEN/PELVIS: No elevated solid organ activity. Adrenal glands arenormal. Mild aortic calcification. No adenopathy or abnormal lymph nodeactivity. Changes of right hemicolectomy noted. No concerning activity or mass atthe resection margin. MARROW: Lumbar fixation at L2-3 and inferior lumbar DDD. Prior righthumeral surgical hardware implantation as well. ACDF. No concerning marrowactivity or aggressive bone lesion. IMPRESSION: As compared to available prior CT, interval right hemicolectomy. Negativefor recurrent neoplasm by PET/CT. Final Releasing Radiologist: MICHAELA STOCKTON Released Date and Time: 03/28/21 16:40 Georgi Butterfield MD [facility] [place] documented in this encounter Visit Diagnoses Not on filedocumented in this encounter
--- OUTSIDE RECORDS SUMMARY | 2024-01-11 22:18 | XMS_ITS | Encounter Summary ---
Author Organization Jose Alejandro Pantoja [facility] Address [address] [place] [address] Care Team Providers Care Director Of Clinical Applications Name Role Phone Cheo Santoyo Primary Care Provider [phone] Encounter Details Date Type Department Care Team (Late st Contact Info) Description 10/24/2020 Legacy Historical Encounter [facility] HISTORICAL CONVERSIONS [address] [place] [address] Delvis Cheek MD [address] [address] Social History Tobacco Use Types [...] - [facility] [address] [facility] [address] [place] [address] Martell Calderon MD 214 [facility] [address] [place] [address] TREMORS/ MEDICARE, FOR LIFE 03/28/2024 8:30 AM EDT Office Visit Primary Care - [address] [address] [place] [address] [place] [address] AWV 04/06/2024 9:45 AM EST Lab [facility] - [facility] [address] [facility] [address] [place] [address] CBCMP,CEA,FEST 04/06/2024 10:15 AM EST Office Visit [facility] - [facility] [address] [facility] [address] [place] [address] Georgi Butterfield MD 3510 [facility] [address] [place] [address] 6 MTH FU W/LABS, REV SCAN 04/13/2024 9:30 AM EST Office Visit Surgical Oncology - [facility] [address] [facility] [address] [place] [address] Delvis Cheek MD 125 [facility] 660 [place] [address] 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 documented as of this encounter Visit Diagnoses Not on filedocumented in this encounter Care Teams Director Of Clinical Applications Relationship Specialty Start Date End Date Cheo Santoyo DO [address] [place] [phone] PCP - General Family Medicine 07/06/23 documented as of this encounter
--- OUTSIDE RECORDS SUMMARY | 2024-01-11 22:18 | XMS_ITS | Encounter Summary ---
Author Organization Jose Alejandro Pantoja [facility] Address [address] [email or web address] [address] Care Team Providers Care Line Erector Name Role Phone Cheo Santoyo Primary Care Provider [phone] Encounter Details Date Type Department Care Team (Late st Contact Info) Description 07/11/2021 Legacy Historical Encounter [facility] HISTORICAL CONVERSIONS 316 [place], [place] [id number] Maurice Wood II, MD 8 [facility] [address] [place] [address] Social History Tobacco Use Types Packs/Day Years [...] EDT Office Visit Neurology - [facility] [address] [facility] [address] [place] [address] Martell Calderon MD 214 [facility] [address] [place] [address] TREMORS/ MEDICARE, FOR LIFE 03/28/2024 8:30 AM EDT Office Visit Primary Care - [address] [address] [place] [address] [place] [address] AWV 04/06/2024 9:45 AM EST Lab [facility] - [facility] [address] [facility] [address] [place] [address] CBCMP,CEA,FEST 04/06/2024 10:15 AM EST Office Visit [place] - [facility] [address] [facility] [address] [place] [address] Georgi Butterfield MD [address] [place] [address] 6 MTH FU W/LABS, REV SCAN 04/13/2024 9:30 AM EST Office Visit Surgical Oncology - [facility] [address] [facility] [address] [place] [address] Delvis Cheek MD 125 [facility] 660 [place] [address] 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 [address] [place] [address] Karly Bautista, PA [address] [place] [address] annual visit from date of surgery May/Jul 2024 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 documented as of this encounter Visit Diagnoses Not on filedocumented in this encounter Care Teams Line Erector Relationship Specialty Start Date End Date Cheo Santoyo DO [address] [place] [phone] PCP - General Family Medicine 07/06/23 documented as of this encounter
--- OUTSIDE RECORDS SUMMARY | 2024-01-11 22:18 | XMS_ITS | Encounter Summary ---
Author Organization Jose Alejandro Pantoja [facility] Address [address] [place] [address] Care Team Providers Care Banking Services Advisor Name Role Phone YarelisCheo friend oMshe REYES Primary Care Provider [phone] Encounter Details Date Type Department Care Team (Late st Contact Info) Description 07/29/2020 Legacy Historical Encounter [facility] [...] 9:00 AM EDT Office Visit Neurology - [facility] [address] [facility] [address] [place] [address] Martell Calderon MD 2144 [facility] [address] [place] [address] TREMORS/ MEDICARE, FOR LIFE 03/28/2024 8:30 AM EDT Office Visit Primary Care - [address] [phone] Cheo Santoyo, [address] [address] AWV 04/06/2024 9:45 AM EST Lab [facility] - [facility] [address] [facility] [address] [place] [address] CBCMP,CEA,FEST 04/06/2024 10:15 AM EST Office Visit [facility] [facility] - [facility] 20[address] [facility] [address] [place] [address] Georgi Butterfield MD [address] [place] [address] 6 MTH FU W/LABS, REV SCAN 04/13/2024 9:30 AM EST Office Visit Surgical Oncology - [facility] [address] [facility] [address] [place] [address] Delvis Cheek MD 125 [facility] 660 [place] [address] 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 documented as of this encounter Visit Diagnoses Not on filedocumented in this encounter Care Teams Banking Services Advisor Relationship Specialty Start Date End Date Cheo Santoyo DO [address] [place] [phone] PCP - General Family Medicine 07/06/23 documented as of this encounter
--- OUTSIDE RECORDS SUMMARY | 2024-01-11 22:18 | XMS_ITS | Encounter Summary ---
Author Organization Jose Alejandro Pantoja [facility] Address [address] [place] [address] Care Team Providers Care Beader Tender Name Role Phone YarelisCheo friend Moshe REYES Primary Care Provider [phone] Encounter Details Date Type Department Care Team (Late st Contact Info) Description 08/05/2020 Legacy Historical Encounter [facility] & [...] 9:00 AM EDT Office Visit Neurology - [facility] 2144 [facility] [address] [place] [address] Martell Calderon MD 2144 [facility] [address] [place] [address] TREMORS/ MEDICARE, FOR LIFE 03/28/2024 8:30 AM EDT Office Visit Primary Care - [address] [phone] Cheo Santoyo, [address] [address] AWV 04/06/2024 9:45 AM EST Lab [facility] - [facility] [address] [facility] [address] [place] [address] CBCMP,CEA,FEST 04/06/2024 10:15 AM EST Office Visit [facility] - [facility] [address] [facility] [address] [place] [address] Georgi Butterfield MD [address] [place] [address] 6 MTH FU W/LABS, REV SCAN 04/13/2024 9:30 AM EST Office Visit Surgical Oncology - [facility] [address] 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 documented as of this encounter Visit Diagnoses Not on filedocumented in this encounter Care Teams Beader Tender Relationship Specialty Start Date End Date Cheo Santoyo DO [address] [place] [phone] PCP - General Family Medicine 07/06/23 documented as of this encounter
--- OUTSIDE RECORDS SUMMARY | 2024-01-11 22:18 | XMS_ITS | Encounter Summary ---
Author Organization Jose Alejandro Pantoja [facility] Address 1701 [facility] [place] [address] Care Team Providers Care Drawstring Knotter Name Role Phone Cheo Santoyo Primary Care Provider [phone] Encounter Details Date Type Department Care Team (Late st Contact Info) Description 04/17/2021 Legacy Historical Encounter [facility] HISTORICAL CONVERSIONS 316 [place], [place] [address] Delvis Cheek MD [address] [address] Social History Tobacco Use Types [...] 9:00 AM EDT Office Visit Neurology - [facility] [address] [facility] [address] [place] [address] Martell Calderon MD 214 [facility] [address] [place] [address] TREMORS/ MEDICARE, FOR LIFE 03/28/2024 8:30 AM EDT Office Visit Primary Care - [address] [address] [place] [address] [place] [address] AWV 04/06/2024 9:45 AM EST Lab [facility] - [facility] [address] [facility] [address] [place] [address] CBCMP,CEA,FEST 04/06/2024 10:15 AM EST Office Visit [place] [facility] - [facility] [address] [facility] [address] [place] [address] Georgi Butterfield MD 3510 [facility] [address] [place] [address] 6 MTH FU W/LABS, REV SCAN 04/13/2024 9:30 AM EST Office Visit Surgical Oncology - [facility] [address] [facility] [address] [place] [address] Delvis Cheek MD 125 [facility] 660 [place] [address] 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 documented as of this encounter Visit Diagnoses Not on filedocumented in this encounter Care Teams Drawstring Knotter Relationship Specialty Start Date End Date Cheo Santoyo DO [address] [place] [phone] PCP - General Family Medicine 07/06/23 documented as of this encounter
--- OUTSIDE RECORDS SUMMARY | 2024-01-11 22:18 | XMS_ITS | Encounter Summary ---
Author Organization Jose Alejandro Pantoja [facility] Address [address] [place] [address] Care Team Providers Care Packaging Associate Name Role Phone YarelisCheo friend Moshe REYES Primary Care Provider [phone] Encounter Details Date Type Department Care Team (Late st Contact Info) Description 01/13/2021 Legacy Historical Encounter [facility] [...] Neurology - [facility] [address] [facility] [address] [place] [address] Martell Calderon MD 2144 [facility] [address] [place] [address] TREMORS/ MEDICARE, FOR LIFE 03/28/2024 8:30 AM EDT Office Visit Primary Care - [address] [phone] Cheo Santoyo, [address] [address] AWV 04/06/2024 9:45 AM EST Lab [facility] - [facility] 20[address] [facility] [address] [place] [address] CBCMP,CEA,FEST 04/06/2024 10:15 AM EST Office Visit [place] - [facility] [address] [facility] [address] [place] [address] Georgi Butterfield MD [address] [place] [address] 6 MTH FU W/LABS, REV SCAN 04/13/2024 9:30 AM EST Office Visit Surgical Oncology - [facility] [address] [facility] [address] [place] [address] Delvis Cheek MD 125 [facility] 660 [place] [address] 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 documented as of this encounter Visit Diagnoses Not on filedocumented in this encounter Care Teams Packaging Associate Relationship Specialty Start Date End Date Cheo Santoyo DO [address] [place] [phone] PCP - General Family Medicine 07/06/23 documented as of this encounter
--- OUTSIDE RECORDS SUMMARY | 2024-01-11 22:18 | XMS_ITS | Encounter Summary ---
Author Organization Jose Alejandro Pantoja [facility] Address [address] [place] [address] Care Team Providers Care Construction Trench Digger Name Role Phone YarelisCheo friend Moshe REYES Primary Care Provider [phone] Encounter Details Date Type Department Care Team (Late st Contact Info) Description 08/29/2020 Legacy Historical Encounter [facility] & [...] 9:00 AM EDT Office Visit Neurology - [facility] 2144 [facility] [address] [place] [address] Martell Calderon MD 2144 [facility] [address] [place] [address] TREMORS/ MEDICARE, FOR LIFE 03/28/2024 8:30 AM EDT Office Visit Primary Care - [address] [phone] Cheo Santoyo, [address] [address] AWV 04/06/2024 9:45 AM EST Lab [place] [facility] - [facility] 20[address] [facility] [address] [place] [address] CBCMP,CEA,FEST 04/06/2024 10:15 AM EST Office Visit [place] [facility] - [facility] 2084 [facility] [address] [place] [address] Georgi Butterfield MD [address] [place] [address] 6 MTH FU W/LABS, REV SCAN 04/13/2024 9:30 AM EST Office Visit Surgical Oncology - [facility] 20[address] [facility] [address] [place] [address] Delvis Cheek MD 125 [facility] 660 [place] [address] 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 [address] [place] [address] Karly Bautista, BURT 180 [facility] [address] [place] [address] annual visit from date of surgery May/Jul 2024 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 documented as of this encounter Visit Diagnoses Not on filedocumented in this encounter Care Teams Construction Trench Digger Relationship Specialty Start Date End Date Cheo Santoyo DO [address] [place] [phone] PCP - General Family Medicine 07/06/23 documented as of this encounter
--- OUTSIDE RECORDS SUMMARY | 2024-01-11 22:18 | XMS_ITS | Encounter Summary ---
Author Organization Jose Alejandro Pantoja [facility] Address [address] [email or web address] [address] Care Team Providers Care Quality Control Microbiologist Name Role Phone Cheo Santoyo Moshe REYES Primary Care Provider Encounter Details Date Type Department Care Team (Late st Contact Info) Description 10/09/2020 Legacy Historical Encounter [facility] & [...] - [facility] [address] [facility] [address] [place] [address] Martell Calderon MD 2144 [facility] [address] [place] [address] TREMORS/ MEDICARE, FOR LIFE 03/28/2024 8:30 AM EDT Office Visit Primary Care - [address] [phone] Cheo Santoyo, [address] [address] AWV 04/06/2024 9:45 AM EST Lab [facility] [facility] - [facility] 2084 [facility] [address] [place] [address] CBCMP,CEA,FEST 04/06/2024 10:15 AM EST Office Visit [place] [facility] - [facility] 2084 [facility] [address] [place] [address] Georgi Butterfield MD [address] [place] [address] 6 MTH FU W/LABS, REV SCAN 04/13/2024 9:30 AM EST Office Visit Surgical Oncology - [facility] 2084 [facility] [address] [place] [address] Delvis Cheek MD 125 [facility] 660 [place] [address] 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 documented as of this encounter Visit Diagnoses Not on filedocumented in this encounter Care Teams Quality Control Microbiologist Relationship Specialty Start Date End Date Cheo Santoyo DO [address] [place] [phone] PCP - General Family Medicine 07/06/23 documented as of this encounter
--- OUTSIDE RECORDS SUMMARY | 2024-01-11 22:18 | XMS_ITS | Encounter Summary ---
Author Organization Jose Alejandro Patnoja [facility] Address [address] [place] [address] Care Team Providers Care Door Fitter Name Role Phone YarelisCheo friend Moshe REYES Primary Care Provider [phone] Encounter Details Date Type Department Care Team [...] [place] 2144 [facility] [address] [place] [address] Martell Calderon MD 2144 [facility] [address] [place] [address] TREMORS/ MEDICARE, FOR LIFE 03/28/2024 8:30 AM EDT Office Visit Primary Care - [address] [phone] Cheo Santoyo, [address] [address] AWV 04/06/2024 9:45 AM EST [facility] [place] [facility] - [facility] [place] 2084 [facility] [address] [place] [address] CBCMP,CEA,FEST 04/06/2024 10:15 AM EST Office Visit [place] [facility] - [facility] [place] 2084 [facility] [address] [place] [address] Georgi Butterfield MD [address] [place] [address] 6 MTH FU W/LABS, REV SCAN 04/13/2024 9:30 AM EST Office Visit Surgical Oncology - [facility] [place] 2084 [facility] [address] [place] [address] Delvis Cheek MD 125 [facility] 660 [place] [address] 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 [address] [place] [address] Karly Bautista, BURT 180 [facility] 301 [place] [address] annual visit from date of surgery May/Jul 2024 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 documented as of this encounter Visit Diagnoses Not on filedocumented in this encounter Care Teams Door Fitter Relationship Specialty Start Date End Date Cheo Santoyo DO [address] [place] [phone] PCP - General Family Medicine 07/06/23 documented as of this encounter
--- OUTSIDE RECORDS SUMMARY | 2024-01-11 22:18 | XMS_ITS | Encounter Summary ---
Author Organization Jose Alejandro Pantoja [facility] Address [address] [email or web address] [address] Care Team Providers Care Heavy Truck Technician Name Role Phone Carter Santoyoony Moshe REYES Primary Care Provider Encounter Details Date Type Department Care Team (Late st Contact Info) Description 10/30/2020 Legacy Historical Encounter [facility] AMB HISTORICAL Georgi Butterfield MD [address] [place] [address] Social History Tobacco Use Types Packs/Day Years [...] AM EDT [facility] 2144 [facility] [address] [place] [address] Martell Calderon MD 214 [facility] [address] [place] [address] TREMORS/ MEDICARE, FOR LIFE 03/28/2024 8:30 AM EDT Office Visit Primary Care - [address] [address] [place] [address] [place] [address] AWV 04/06/2024 9:45 AM EST Lab [place] [facility] 2084 [facility] [address] [place] [address] CBCMP,CEA,FEST 04/06/2024 10:15 AM EST Office Visit [place] [facility] - [facility] 2084 [facility] [address] [place] [address] Georgi Butterfield MD [address] [place] [address] 6 MTH FU W/LABS, REV SCAN 04/13/2024 9:30 AM EST Office Visit Surgical Oncology - [facility] [address] [facility] [address] [place] [address] Delvis Cheek MD 125 [facility] 660 [place] [address] 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 [address] [place] [address] Karly Bautista, BURT 180 [facility] 301 [place] [address] annual visit from date of surgery May/Jul 2024 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 documented as of this encounter Visit Diagnoses Not on filedocumented in this encounter Care Teams Heavy Truck Technician Relationship Specialty Start Date End Date Cheo Santoyo DO [address] [place] [phone] PCP - General Family Medicine 07/06/23 documented as of this encounter
--- OUTSIDE RECORDS SUMMARY | 2024-01-11 22:18 | XMS_ITS | Encounter Summary ---
Author Organization [facility] Address [address] [email or web address] [address] Care Team Providers Care Access Control Officer Name Role Phone Unavailable Primary Care Provider Unavailabl e Encounter Details Date Type Department Care Team (Late st Contact Info) Description 10/03/2021 6:07 PM EDT - 10/03/2021 11:59 PM EDT Hospital Encounter RS HISTORICAL CONVERSIONS [address] [place], [place] [id number] Georgi Andersen, PA [address] [place] [address] Social History Tobacco Use Types Packs/Day Years [...] Visit Neurology - [address] [facility] [address] [place] [phone] Martell Calderon MD 2144 [facility] [place] [address] [place] [address] TREMORS/ MEDICARE, FOR LIFE 03/28/2024 8:30 AM EDT Office Visit Primary Care - [address] [phone] Cheo Santoyo, DO [address] [place] [address] AWV 04/06/2024 9:45 AM EST Lab [facility] - [facility] [place] [address] [facility] [address] [place] [address] CBCMP,CEA,FEST 04/06/2024 10:15 AM EST Office Visit [facility] - [facility] [place] [address] [facility] [address] [place] [address] Georgi Butterfield MD 3510 [facility] 17[address] [facility] 225 [place], [place] [phone] 6 MTH FU W/LABS, REV SCAN 04/13/2024 9:30 AM EST Office Visit Surgical Oncology - [facility] [place] [address] [facility] [address] [place] [address] Delvis Cheek MD 125 [facility] [address] [place] [address] 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 documented as of this encounter Procedures Procedure Name Priority Date/Time Associated Diagnosis Comments MRI KNEE RIGHT WO CONTRAST Routine 10/01/2021 2:33 PM EDT documented in this encounter Results * MRI Knee w/o Contrast Right (10/01/2021 2:33 PM EDT) Anatomical Region Laterality Modality Thigh, Knee, Leg Other 10/01/2021 2:33 PM EDT 10/03/2021 7:05 PM EDT Narrative 10/04/2021 10:12 PM EDT ######################################################### --------- ?ADDENDUM ??-------- ######################################################### Please note there is some suggestion of underlying intramuscular edema involving the medial head of the gastrocnemius muscle which appears somewhat asymmetric compared to the lateral head of the gastrocnemius muscle. Findings can be seen in setting of denervation. Final Releasing Radiologist: ?? ROSCOE, ??ROSALBA RANKIN Released Date and Time: ??10/04/21 22:25 MRI right knee without contrast: 10/03/21 [...] 4. Moderate chondromalacia of the patellofemoral compartment Final Releasing Radiologist: ?? ROSCOE, ??ROSALBA RANKIN Released Date and Time: ??10/04/21 22:10 Procedure Note Rosalba Malhotra MD - 12/24/2021 ######################################################### --------- ADDENDUM -------- ######################################################### Please note there is some suggestion of underlying intramuscular edemainvolving the medial head of the gastrocnemius muscle which appears somewhatasymmetric compared to the lateral head of the gastrocnemius muscle. Findings can beseen in setting of denervation. Final Releasing Radiologist: ROSALBA MALHOTRA Released Date and Time: 10/04/21 22:25 MRI right knee without contrast: 10/03/21 INDICATION: M25.561;M25.561. Knee pain COMPARISON: Knee MRI 04/24/2015 TECHNIQUE: Routine noncontrast protocol (Axial fat saturated T2, coronalT1 and fat saturated T2, oblique sagittal SE PD and fat saturated T2 images) FINDINGS: Medial compartment: There is significant blunting throughout the posteriorhorn which is likely at least partially related to prior surgery. Findingssuspicious for at least partial thickness tearing of the posterior horn, justproximal to the root attachment. Area of high-grade partial-thickness chondral loss involving theposterior weightbearing medial femoral condyle extending for approximately 1.3 x 1.5cm. Mild underlying subchondral marrow edema. Moderate surface fibrillation involving the more central and anterior weightbearing medial femoralcondyle. There is diffuse thinning of the anterolateral tibial plateau articular cartilage with underlying marrow edema. No subchondral fracture. Lateral compartment: Findings suspicious for at least partial thickness horizontal undersurface tear the anterior horn and in the anterior rootlateral meniscus. Probable adjacent parameniscal cyst measuring up to 8 x 7 mm .Small area of near full-thickness chondral loss involving the posteriorweightbearing lateral femoral condyle extending for 6 x 5 mm. No underlying subchondralmarrow edema. Tibial plateau articular cartilage is grossly intact Patellofemoral compartment: Diffuse chondral thinning throughout the patellofemoral compartment. Throughout. Area of partial-thickness chondralloss involving the deep medial patella facet measuring up to 6 mm. Mildunderlying subchondral marrow edema. Multiple areas of high-grade partial-thickness chondral loss throughout the lateral trochlear facet and trochleargroove. Osteoporosis is no underlying subchondral marrow edema. Anterior cruciate ligament: Intact Posterior cruciate ligament: Intact Medial collateral ligament: Intact. Mild surrounding edema is likelyreactive. Lateral collateral ligament : Intact Popliteus and posterior lateral corner structures: Intact Retinacular complex: Intact Extensor tendons: Intact Effusion: Moderate size knee joint effusion. Small popliteal cyst. No intra-articular loose body. Hoffa's fat: Normal IMPRESSION: 1. Significant blunting throughout the posterior horn medial meniscuswhich is presumably postsurgical. There is however suspected superimposed complextear, just proximal to the root attachment. 2. 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 Mildsubchondral marrow edema without subchondral fracture. 3. Findings suspicious for horizontal undersurface tear involving theanterior horn and root attachment lateral meniscus with likely adjacentparameniscal cyst. 4. Moderate chondromalacia of the patellofemoral compartment Final Releasing Radiologist: ROSALBA MALHOTRA Released Date and Time: 10/04/21 22:10 Georgi LUNA MRI ORDERABLES documented in this encounter Visit Diagnoses Not on filedocumented in this encounter
--- OUTSIDE RECORDS SUMMARY | 2024-01-11 22:18 | XMS_ITS | Encounter Summary ---
Author Organization [facility] Address [address] [place] [address] Care Team Providers Care Wool Grader Name Role Phone Unavailable Primary Care Provider Unavailabl e Encounter Details Date Type Department Care Team (Late st Contact Info) Description 07/17/2021 10:32 AM EST - 07/17/2021 11:59 PM EST Hospital Encounter RS HISTORICAL CONVERSIONS [address] [place] [address] Maurice Wood II, MD [address] [facility] [address] [place] [phone] Social History Tobacco Use Types Packs/Day Years [...] Dr. [address] [place] [phone] Martell Calderon MD 2144 [facility] [address] [place] [address] TREMORS/ MEDICARE, FOR LIFE 03/28/2024 8:30 AM EDT Office Visit Primary Care - [address] [phone] Cheo Santoyo DO 1112 [place] [phone] AWV 04/06/2024 9:45 AM EST Lab [facility] - [facility] 2084 [facility] [address] [place] [address] CBCMP,CEA,FEST 04/06/2024 10:15 AM EST Office Visit [facility] - [facility] 2084 [facility] [address] [place] [address] Georgi Butterfield MD [address] [place] [address] 6 MTH FU W/LABS, REV SCAN 04/13/2024 9:30 AM EST Office Visit Surgical Oncology - [facility] 2084 [facility] [address] [place] [address] Delvis Cheek MD 125 [facility] 660 [place] [address] 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 documented as of this encounter Procedures Procedure Name Priority Date/Time Associated Diagnosis Comments COVID-19 (HARRY) Routine 07/17/2021 10:3 3 AM EST documented in this encounter Results * COVID-19 (Harry) (07/17/2021 10:33 AM EST) SARS-CoV-2, MANJULA Negative Negative [facility] CERNER CONVERSION Comment: Interpretive Data: Harry(R) SARS-CoV-2 for use on the [employer]) [email or web address] Systems is a real-time RT- PCR test intended for the qualitative detection of nucleic acids from SARS-CoV-2 in nasal and nasopharyngeal specimens collected from individuals who meet COVID-19 clinical and/or epidemiological criteria. Positive results are indicative of the presence of SARS-CoV-2 RNA; clinical correlation with patient history and other diagnostic information is necessary to determine patient infection status. Positive results do not rule out bacterial infection or co-infection with other viruses. The agent detected may not be the definite cause of disease. Negative results do not preclude SARS-CoV-2 infection and should not be used as the sole basis for patient management decisions. Negative results must be combined with clinical observations, patient history, and epidemiological information. Harry(R) SARS-CoV-2 is only for use under the Food and Drug Administration's Emergency Use Authorization. Performing Lab: ??PL Molecular Pending 07/17/2021 10:3 3 AM EST 07/17/2021 10:34 AM EST Comment:Nasal Swab Maurice Wood II, MD MICROBIOLOGY - [facility] ORDERABLES RS CERNER CONVERSION documented in this encounter Visit Diagnoses Not on filedocumented in this encounter
--- OUTSIDE RECORDS SUMMARY | 2024-01-11 22:18 | XMS_ITS | Encounter Summary ---
Author Organization Jose Alejandro Pantoja [facility] Address [address] [place] [address] Care Team Providers Care Wreath And Garland Maker Name Role Phone YarelisCheo friend Moshe REYES Primary Care Provider [phone] Encounter Details Date Type Department Care Team (Late st Contact Info) Description 09/23/2020 Legacy Historical Encounter [facility] [...] 9:00 AM EDT Office Visit Neurology - [facility] [address] [facility] [address] [place] [address] Martell Calderon MD 2144 [facility] [address] [place] [address] TREMORS/ MEDICARE, FOR LIFE 03/28/2024 8:30 AM EDT Office Visit Primary Care - [address] [phone] Cheo Santoyo, [address] [address] AWV 04/06/2024 9:45 AM EST Lab [facility] - [facility] 2084 [facility] [place] [address] [place] [address] CBCMP,CEA,FEST 04/06/2024 10:15 AM EST Office Visit [facility] - [facility] [address] [facility] [place] [address] [place] [address] Georgi Butterfield MD [address] [place] [address] 6 MTH FU W/LABS, REV SCAN 04/13/2024 9:30 AM EST Office Visit Surgical Oncology - [facility] 20[address] [facility] [place] [address] [place] [phone] Delvis Cheek MD 125 [facility] 660 [place] [phone] 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 [address] [place] [phone] Karly Bautista, BURT 180 [facility] 301 [place] [address] annual visit from date of surgery May/Jul 2024 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 documented as of this encounter Visit Diagnoses Not on filedocumented in this encounter Care Teams Wreath And Garland Maker Relationship Specialty Start Date End Date Cheo Santoyo DO [address] [place] [phone] PCP - General Family Medicine 07/06/23 documented as of this encounter
--- OUTSIDE RECORDS SUMMARY | 2024-01-11 22:19 | XMS_ITS | Encounter Summary ---
Author Organization [facility] Address [address] [place] [address] Care Team Providers Care Efficiency Manager Name Role Phone Unavailable Primary Care Provider Unavailabl e Encounter Details Date Type Department Care Team (Late st Contact Info) Description 01/11/2024 Lab Requisition [facility] Pathology & Laboratory Medicine - [facility] [address] [place] [address] Outr Resulting Lab, Provider Social History Tobacco Use Types Packs/Day Years Used Date Smoking Tobacco: Never Assessed Sex and Gender Information Value Date Recorded Sex Assigned at Not on file Gender Identity Not on file Sexual Orientation Not on file documented as of this encounter Plan of Treatment Pending Results Name Type Priority Associated Diagnoses Date /Time H. PYLORI ANTIGEN Microbiology Routine 01/10 5:30 EDT documented as of this encounter Visit Diagnoses Not on filedocumented in this encounter
--- OUTSIDE RECORDS SUMMARY | 2024-01-11 22:19 | XMS_ITS | Encounter Summary ---
Author Organization Jose Alejandro [facility]olinnea [facility] Address [address] [place] [address] Care Team Providers Care Library Science Instructor Name Role Phone Unavailable Primary Care Provider Unavailabl e Encounter Details Date Type Department Care Team (Late st Contact Info) Description 12/22/2019 5:48 PM EDT - 12/22/2019 11:59 PM EDT Hospital Encounter [facility] HISTORICAL CONVERSIONS [address] [place], [place] [phone] Tammy Rodriguez PA Social History Tobacco Use Types Packs/Day Years [...] 0, 10/19/19 10:31:00 EDT, Tab 10/19/2019 09/21/2022 documented as of this encounter Plan of Treatment Upcoming Encounters Date Type Department Care Team (Late st Contact Info) Description 03/24/2024 9:00 AM EDT Office Visit Neurology - [address] Dr. [address] [place] [address] Martell Calderon MD [address] [place] [address] TREMORS/ MEDICARE, FOR LIFE 03/28/2024 8:30 AM EDT Office Visit Primary Care - [address] [phone] Cheo Santoyo, [address] [place] [phone] AWV 04/06/2024 9:45 AM EST Lab [facility] - [facility] [address] [facility] [address] [place] [phone] CBCMP,CEA,FEST 04/06/2024 10:15 AM EST Office Visit [facility] - [facility] [address] [facility] [address] [place] [phone] Georgi Butterfield MD 3510 [facility] [address] [place], [place] [phone] 6 MTH FU W/LABS, REV SCAN 04/13/2024 9:30 AM EST Office Visit Surgical Oncology - [facility] [address] [facility] [address] [place] [address] Delvis Cheek MD 125 [facility] 660 [place] [phone] 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 [address] [place] [phone] Karly Bautista PA [address] [place] [address] annual visit from date of surgery May/Jul 2024 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 documented as of this encounter Procedures Procedure Name Priority Date/Time Associated Diagnosis Comments MRI LUMBAR SPINE W WO CONTRAST Routine 12/11/2019 12:58 PM EDT documented in this encounter Results * MRI Spine Lumbar w/ + w/o Contrast (12/11/2019 12:58 PM EDT) Anatomical Region Laterality Modality T-spine, L-spine, Pelvis Other 12/11/2019 12:5 8 PM EDT 12/22/2019 7:09 PM EDT Narrative 12/23/2019 3:32 PM EDT MRI lumbar spine with and without contrast: 12/22/19 INDICATION: M54.16;M54.16. Intermittent paralysis with electrical shock sensation across the waist followed by paralysis. COMPARISON: MRI 02/21/2019 TECHNIQUE: Precontrast sagittal and axial, T1 and T2-weighted sequences with sagittal STIR of the lumbar spine. Postcontrast sagittal and axial T1-weighted fat sat sequences. FINDINGS: Postoperative changes of L2-3 PLIF. No worrisome bone marrow signal changes or enhancement. Vertebral body heights are preserved. Alignment is unchanged. No abnormal signal in the visualized inferior spinal cord with conus terminating at T12-L1. Normal appearance of the cauda equina nerve roots. The visualized abdominal and pelvic soft tissues are within normal limits. L1-L2: Disc bulge with central-left central protrusion, unchanged. No stenosis. No neural foraminal narrowing. L2-L3: PLIF. No spinal canal stenosis. Primarily left posterior foraminal and extraforaminal osteophyte formation which encroaches on the left lateral recess, unchanged. There is also likely a small amount of granulation tissue in the left neural foramen. No significant neural foraminal narrowing. L3-L4: Grade 1 retrolisthesis. Disc bulge eccentric to the left. Facet arthrosis. No spinal canal stenosis. Moderate left and mild right neural foraminal narrowing. The exited left L3 nerve closely abuts the extra foraminal disc bulge. L4-L5: Disc desiccation. Disc bulge. Facet arthrosis. No spinal canal stenosis. Mild right neural foraminal narrowing. L5-S1: Grade 1 retrolisthesis. Disc bulge with broad-based central left central disc protrusion. Prior left laminotomy with some enhancing granulation tissue extending into the left lateral recess. No spinal canal stenosis. There is effacement of the left lateral recess with mass effect on the left S1 nerve root. Mild bilateral neural foraminal narrowing. IMPRESSION: 1. ??At L2-3, postoperative changes of PLIF. Some left foraminal and extraforaminal osteophyte formation encroaching on the left lateral recess, unchanged. 2. ??At L3-4, grade 1 retrolisthesis with moderate left neural foraminal narrowing. The exited left L3 nerve also closely abuts the extraforaminal disc bulge. 3. ??At L5-S1, prior left laminotomy with some enhancing granulation tissue in the left lateral recess. Grade 1 retrolisthesis. Disc bulge with broad-based central and left central disc protrusion is unchanged. This encroaches on the left lateral recess as well and likely causes mass effect on the left S1 nerve root. 4. ??Overall, appearance of the lumbar spine is unchanged compared to January 2019. Final Releasing Radiologist: ?? SAJAN, ??CRISTAL Navarro Date and Time: ??12/23/19 15:30 Procedure Note Cristal Anguiano MD - 12/24/2021 MRI lumbar spine with and without contrast: 12/22/19 INDICATION: M54.16;M54.16. Intermittent paralysis with electricalshock sensation across the waist followed by paralysis. COMPARISON: MRI 02/21/2019 TECHNIQUE: Precontrast sagittal and axial, T1 and T2-weighted sequenceswith sagittal STIR of the lumbar spine. Postcontrast sagittal and axialT1-weighted fat sat sequences. FINDINGS: Postoperative changes of L2-3 PLIF. No worrisome bone marrowsignal changes or enhancement. Vertebral body heights are preserved. Alignmentis unchanged. No abnormal signal in the visualized inferior spinal cord withconus terminating at T12-L1. Normal appearance of the cauda equina nerve roots.The visualized abdominal and pelvic soft tissues are within normal limits. L1-L2: Disc bulge with central-left central protrusion, unchanged. Nostenosis. No neural foraminal narrowing. L2-L3: PLIF. No spinal canal stenosis. Primarily left posterior foraminaland extraforaminal osteophyte formation which encroaches on the left lateralrecess, unchanged. There is also likely a small amount of granulation tissue inthe left neural foramen. No significant neural foraminal narrowing. L3-L4: Grade 1 retrolisthesis. Disc bulge eccentric to the left. Facet arthrosis. No spinal canal stenosis. Moderate left and mild right neural foraminal narrowing. The exited left L3 nerve closely abuts the extraforaminal disc bulge. L4-L5: Disc desiccation. Disc bulge. Facet arthrosis. No spinal canalstenosis. Mild right neural foraminal narrowing. L5-S1: Grade 1 retrolisthesis. Disc bulge with broad-based central leftcentral disc protrusion. Prior left laminotomy with some enhancing granulationtissue extending into the left lateral recess. No spinal canal stenosis. Thereis effacement of the left lateral recess with mass effect on the left [id number] root. Mild bilateral neural foraminal narrowing. IMPRESSION: 1. At L2-3, postoperative changes of PLIF. Some left foraminal and extraforaminal osteophyte formation encroaching on the left lateralrecess, unchanged. 2. At L3-4, grade 1 retrolisthesis with moderate left neural foraminal narrowing. The exited left L3 nerve also closely abuts the extraforaminaldisc bulge. 3. At L5-S1, prior left laminotomy with some enhancing granulation tissuein the left lateral recess. Grade 1 retrolisthesis. Disc bulge withbroad-based central and left central disc protrusion is unchanged. This encroaches onthe left lateral recess as well and likely causes mass effect on the left B3verqs root. 4. Overall, appearance of the lumbar spine is unchanged compared toSeptember 2019. Final Releasing Radiologist: CRISTAL MOELLER Released Date and Time: 12/23/19 15:30 Tammy LUNA MRI ORDERABLES documented in this encounter Visit Diagnoses Not on filedocumented in this encounter
--- OUTSIDE RECORDS SUMMARY | 2024-01-11 22:19 | XMS_ITS | Encounter Summary ---
Author Organization [facility] Address [address] [place] [address] Care Team Providers Care Paper Machine Back Tender Name Role Phone Unavailable Primary Care Provider Unavailabl e Encounter Details Date Type Department Care Team (Late st Contact Info) Description 02/21/2019 4:04 PM EDT - 02/21/2019 11:59 PM EDT Hospital Encounter [facility] HISTORICAL CONVERSIONS [address] [place] [address] More Morales PA 300 [facility] [address] [place], [place] [address] Social History Tobacco Use Types Packs/Day Years [...] [address] [place] [address] Martell Calderon MD 2145 [facility] [address] [place] [address] TREMORS/ MEDICARE, FOR LIFE 03/28/2024 8:30 AM EDT Office Visit Primary Care - [address] [phone] Cheo Santoyo, DO [address]12 [place] [address] AWV 04/06/2024 9:45 AM EST Lab [facility] - [facility] [address] [facility] [address] [place] [address] CBCMP,CEA,FEST 04/06/2024 10:15 AM EST Office Visit [facility] - [facility] [address] [facility] [address] [place] [address] Georgi Butterfeild MD 3510 [facility] [address] [place] [address] 6 MTH FU W/LABS, REV SCAN 04/13/2024 9:30 AM EST Office Visit Surgical Oncology - [facility] [address] [facility] [address] [place] [address] Delvis Cheek MD 125 [facility] 660 [place] [address] 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 documented as of this encounter Procedures Procedure Name Priority Date/Time Associated Diagnosis Comments MRI LUMBAR SPINE W WO CONTRAST Routine 02/21/2019 12:14 PM EDT documented in this encounter Results * MRI Spine Lumbar w/ + w/o Contrast (02/21/2019 12:14 PM EDT) Anatomical Region Laterality Modality T-spine, L-spine, Pelvis Other 02/21/2019 12:1 4 PM EDT 02/21/2019 5:22 PM EDT Narrative 02/21/2019 6:57 PM EDT LUMBAR SPINE MRI WITHOUT AND WITH CONTRAST DATE: 02/21/19 INDICATION: M51.06;M51.06. TECHNIQUE: ??Sagittal T1 weighted IR, T2 FSE, and STIR sequences, as well as axial T1 SE and T2 FSE sequences. ??Postcontrast axial T1-weighted SE, as well as fat-suppressed sagittal and axial T1-weighted sequences. COMPARISON: Lumbar radiograph 02/21/2019 FINDINGS: Vertebrae: ?? Lumbar vertebral body heights are maintained. ??Bone marrow signal is within normal limits. Alignment: ??There is grade 1 retrolisthesis at L3-L4 and L5-S1. Conus: ??The conus medullaris terminates at a normal level. L1-L2: ??Disc bulge. No stenosis. L2-L3: ??Previous left laminotomy, interbody fusion, bilateral dawit and pedicle screw fixation. There is some heterotopic ossification extending across the left lateral recess. No stenosis. L3-L4: ??Disc bulge with osteophyte formation and grade 1 retrolisthesis. There is mild left foraminal narrowing, with disc also contacting the left L3 nerve root in the extraforaminal region. L4-L5: ??Mild disc bulge with annular fissure. Mild left and minimal right foraminal narrowing. L5-S1: ??Previous left laminotomy, with some enhancing scar extending into the left lateral recess. There remains concentric bulging of the disc with osteophyte formation and grade 1 retrolisthesis. Minimal foraminal narrowing. IMPRESSION: 1. ??No evidence of disc herniation or high-grade stenosis. No definite acute abnormality. 2. Degenerative and postoperative changes, as detailed above. Final Releasing Radiologist: ?? MARGY, ??CRISTAL HAMILTON Released Date and Time: ??02/21/19 18:55 Procedure Note Cristal Jones - 12/24/2021 LUMBAR SPINE MRI WITHOUT AND WITH CONTRAST DATE: 02/21/19 INDICATION: M51.06;M51.06. TECHNIQUE: Sagittal T1 weighted IR, T2 FSE, and STIR sequences, as wellas axial T1 SE and T2 FSE sequences. Postcontrast axial T1-weighted SE, aswell as fat-suppressed sagittal and axial T1-weighted sequences. COMPARISON: Lumbar radiograph 02/21/2019 FINDINGS: Vertebrae: Lumbar vertebral body heights are maintained. Bone marrowsignal is within normal limits. Alignment: There is grade 1 retrolisthesis at L3-L4 and L5-S1. Conus: The conus medullaris terminates at a normal level. L1-L2: Disc bulge. No stenosis. L2-L3: Previous left laminotomy, interbody fusion, bilateral dawit andpedicle screw fixation. There is some heterotopic ossification extending acrossthe left lateral recess. No stenosis. L3-L4: Disc bulge with osteophyte formation and grade 1 retrolisthesis.There is mild left foraminal narrowing, with disc also contacting the left L7akheg root in the extraforaminal region. L4-L5: Mild disc bulge with annular fissure. Mild left and minimalright foraminal narrowing. L5-S1: Previous left laminotomy, with some enhancing scar extending intothe left lateral recess. There remains concentric bulging of the disc with osteophyte formation and grade 1 retrolisthesis. Minimal foraminalnarrowing. IMPRESSION: 1. No evidence of disc herniation or high-grade stenosis. No definiteacute abnormality. 2. Degenerative and postoperative changes, as detailed above. Final Releasing Radiologist: CRISTAL JI Released Date and Time: 02/21/19 18:[address] MRI ORDERA BLES documented in this encounter Visit Diagnoses Not on filedocumented in this encounter
--- OUTSIDE RECORDS SUMMARY | 2024-01-11 22:19 | XMS_ITS | Encounter Summary ---
Author Organization [facility] Address [address] [place] [address] Care Team Providers Care Lead Blender Name Role Phone Unavailable Primary Care Provider Unavailabl e Encounter Details Date Type Department Care Team (Late st Contact Info) Description 07/18/2013 2:18 PM EST - 07/18/2013 3:19 PM EST Hospital Encounter [facility] HISTORICAL CONVERSIONS [address] [place] [address] Edvin Pereyra MD [facility]6 [place] [address] Social History Tobacco Use Types Packs/Day Years [...] Dr. [address] [place] [phone] Martell Calderon MD [address] [facility] [address] [address] [place] [address] TREMORS/ MEDICARE, FOR LIFE 03/28/2024 8:30 AM EDT Office Visit Primary Care - [address] [phone] Cheo Santoyo, DO 1112 [place] [address] AWV 04/06/2024 9:45 AM EST Lab [facility] - [facility] 20[address] [facility] [address] [place] [address] CBCMP,CEA,FEST 04/06/2024 10:15 AM EST Office Visit [facility] - [facility] [address] [facility] [place] [address] [place] [phone] Georgi Butterfield MD [address] [place], [place] [phone] 6 MTH FU W/LABS, REV SCAN 04/13/2024 9:30 AM EST Office Visit Surgical Oncology - [facility] [address] [facility] [place] [address] [place] [phone] Delvis Cheek MD 125 [facility] 660 [place] [address] 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 [address] [place] [phone] Karly Bautista PA [address] [place] [phone] annual visit from date of surgery May/Jul 2024 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 documented as of this encounter Visit Diagnoses Not on filedocumented in this encounter
--- OUTSIDE RECORDS SUMMARY | 2024-01-11 22:19 | XMS_ITS | Encounter Summary ---
Author Organization [facility] Address [address] [place] [address] Care Team Providers Care Boatwright Name Role Phone Unavailable Primary Care Provider Unavailabl e Encounter Details Date Type Department Care Team (Late st Contact Info) Description 06/24/2020 8:08 PM EST - 06/24/2020 11:59 PM EST Hospital Encounter [facility] HISTORICAL CONVERSIONS [address] [place], [place] [phone] Ramirez Dorsey MD [address] [facility] 100 [facility] 100 [place] [address] Social History Tobacco Use Types Packs/Day Years [...] Office Visit Neurology - Maryan Jacobsen Dr. [address] [place] [address] Martell Calderon MD 2144 [facility] [address] [place] [address] TREMORS/ MEDICARE, FOR LIFE 03/28/2024 8:30 AM EDT Office Visit Primary Care - [address] [address] Cheo Santoyo DO [address] [place] [address] AWV 04/06/2024 9:45 AM EST Lab [facility] - [facility] 2084 [facility] [address] [place] [address] CBCMP,CEA,FEST 04/06/2024 10:15 AM EST Office Visit [facility] - [facility] 2084 [facility] [address] [place] [address] Georgi Butterfield MD [address] [place] [address] 6 MTH FU W/LABS, REV SCAN 04/13/2024 9:30 AM EST Office Visit Surgical Oncology - [facility] 2084 [facility] [address] [place] [address] Delvis Cheek MD 125 [facility] 660 [place] [address] 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 documented as of this encounter Procedures Procedure Name Priority Date/Time Associated Diagnosis Comments CULTURE, URINE Routine 06/24/2020 11:11 AM EST documented in this encounter Results * (ABNORMAL) Culture, Urine (06/24/2020 11:11 AM EST) Organism Enterococcus faecalis *See Final Report* (A) [facility] CERNER CONVERSION FINAL REPORT >100,000 cfu/ml Enterococcus faecalis isolated. 3,000 cfu/ml Gram Negative Rods isolated. [facility] CERNER CONVERSION Comment:Performing Lab: [facility] Bench 06/24/2020 11:1 1 AM EST 06/24/2020 10:49 PM EST Comment:U CleanCatch Narrative Organism Antibiotic Method Susceptibility Enterococcus faecalis ciprofloxacin TIMA <=1: Sensitive Enterococcus faecalis nitrofurantoin TIMA <=32: Sensitive Comment:Nitrofuranto in is a high risk medication in patients 65 or older. Contraindications include CrCl < 30, oliguria, anuria, pyelonephritis. Enterococcus faecalis penicillin TIMA 2: Sensitive Enterococcus faecalis vancomycin TIMA 1: Sensitive Ramirez Dorsey MD MICROBIOLOGY - GENERAL ORDERABLES [facility] KAVITHA CONVERSION documented in this encounter Visit Diagnoses Not on filedocumented in this encounter
--- OUTSIDE RECORDS SUMMARY | 2024-01-11 22:19 | XMS_ITS | Encounter Summary ---
Author Organization [facility] Address [address] [place] [address] Care Team Providers Care Brush Holder Assembler Name Role Phone Cheo Santoyo Moshe REYES Primary Care Provider [phone] Encounter Details Date Type Department Care Team (Late st Contact Info) Description 02/21/2019 Legacy Historical Encounter [facility] HISTORICAL CONVERSIONS 316 [place], [place] [phone] More Morales PA 300 [facility] 200 [place] [address] Social History Tobacco Use Types Packs/Day Years [...] - [facility] [address] [facility] [address] [place] [address] Martell Calderon MD 2144 [facility] [address] [place] [address] TREMORS/ MEDICARE, FOR LIFE 03/28/2024 8:30 AM EDT Office Visit Primary Care - [address] [address] Cheo Santoyo DO [address] [place] [address] AWV 04/06/2024 9:45 AM EST Lab [facility] - [facility] 2084 [facility] [address] [place] [address] CBCMP,CEA,FEST 04/06/2024 10:15 AM EST Office Visit [facility] - [facility] [address] [facility] [address] [place] [address] Georgi Butterfield MD [address] [place] [address] 6 MTH FU W/LABS, REV SCAN 04/13/2024 9:30 AM EST Office Visit Surgical Oncology - [facility] [address] [facility] [address] [place] [phone] Delvis Cheek MD 125 [facility] [address] [place] [address] 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 [address] [place] [address] Karly Bautista, PA 180 [facility] 301 [place] [address] annual visit from date of surgery May/Jul 2024 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 documented as of this encounter Visit Diagnoses Not on filedocumented in this encounter Care Teams Brush Holder Assembler Relationship Specialty Start Date End Date Cheo Santoyo DO [address] [place] [phone] PCP - General Family Medicine 07/06/23 documented as of this encounter
--- OUTSIDE RECORDS SUMMARY | 2024-01-11 22:19 | XMS_ITS | Clinical Summary ---
Author Organization [facility] Address [address] [place] [address] Care Team Providers Care Change House Attendant Name Role Phone Unavailable Primary Care Provider Unavailabl e Encounters Date Type Department Care Team Description 01/11/2024 Lab Requisition [facility] Pathology & Laboratory [address] [address] Outr Resulting Lab, Provider 01/11/2024 Lab Requisition [facility] Pathology & Laboratory [address] [address] Outr Resulting Lab, Provider from Last 3 Months Social History Tobacco Use Types Packs/Day Years Used Date Smoking Tobacco: Never Assessed Sex and Gender Information Value Date Recorded Sex Assigned at Not on file Gender Identity Not on file Sexual Orientation Not on file Plan of Treatment Health Maintenance Due Date Last Done Comments Hepatitis C Screen 1955 RSV Immunization ( o r 60+ Years) (1 - 1-dose 60+ series) 2017 Fall Risk Screening 2022 COVID-19 Vaccine ( season) 2023
--- OUTSIDE RECORDS SUMMARY | 2024-01-11 22:19 | XMS_ITS | Encounter Summary ---
Author Organization [facility] Address [address] [place] [address] Care Team Providers Care Associate Merchandiser Name Role Phone Unavailable Primary Care Provider Unavailabl e Encounter Details Date Type Department Care Team (Late st Contact Info) Description 02/14/2021 Lab Requisition [facility] Pathology & Laboratory Medicine - [facility] [address] [place] [address] Outr Resulting Lab, Provider Social History Tobacco [...] Name Priority Date/Time Associated Diagnosis Comments CEA Routine 02/14/2021 9:16 EDT documented in this encounter Results * CEA (02/14/2021 9:16 EDT) CEA 2.2 See Note ng/mL 02/14/2021 17:51 EDT [facility] Comment: % Distribution of CEA (ng/mL): ??0.0 - 2.5 in 98.2% of Nonsmokers and 87.3% of Smokers ??2.6 - 5 in 1.8% of Nonsmokers and 8% of Smokers ??5.1 - 10.1 in 4.7% of Smokers NOTE: Serum CEA concentration should not be interpeted as absolute evidence for the presence or absence of malignant disease. ?? Assayed on Siemens ADVIA Centaur XPT using chemiluminescent technology. ??Values obtained by different assay methods cannot be used interchangeably. Blood VENOUS BLOOD / Unknown 02/14/2021 9:16 EDT 02/14/2021 16:04 EDT Provider Outr Resulting Lab CHEMISTRY & BLOOD GAS ORDERABLES [facility] [address] [place] [address] documented in this encounter Visit Diagnoses Not on filedocumented in this encounter
--- OUTSIDE RECORDS SUMMARY | 2024-01-11 22:19 | XMS_ITS | Encounter Summary ---
Author Organization [facility] Address [address] [place] [address] Care Team Providers Care Legislative Analyst Name Role Phone Unavailable Primary Care Provider Unavailabl e Encounter Details Date Type Department Care Team (Late st Contact Info) Description 01/02/2021 Lab Requisition [facility] Pathology & Laboratory Medicine - [facility] [address] [place] [address] Outr Resulting Lab, Provider Social History Tobacco [...] Priority Date/Time Associated Diagnosis Comments CEA Routine 01/02/2021 11:23 EDT documented in this encounter Results * CEA (01/02/2021 11:23 EDT) CEA <2.0 See Note ng/mL 01/02/2021 17:20 EDT [facility] Comment: % Distribution of CEA [...] used interchangeably. Blood VENOUS BLOOD / Unknown 01/02/2021 11:23 EDT 01/02/2021 16:26 EDT Provider Outr Resulting Lab CHEMISTRY & BLOOD GAS ORDERABLES [facility] [address] [place] [address] documented in this encounter Visit Diagnoses Not on filedocumented in this encounter
--- OUTSIDE RECORDS SUMMARY | 2024-01-11 22:19 | XMS_ITS | Encounter Summary ---
Author Organization [facility]jandro [facility] Address [address] [place] [address] Care Team Providers Care Trial Attorney Name Role Phone Unavailable Primary Care Provider Unavailabl e Encounter Details Date Type Department Care Team (Late st Contact Info) Description 07/16/2020 6:07 AM EST - 07/19/2020 4:53 PM EST Hospital Encounter [facility] HISTORICAL CONVERSIONS [address] [place] [id number] Delvis Cheek MD [address] [place] [phone] Social History Tobacco Use Types Packs/Day Years Used Date Smoking Tobacco: Never Assessed Sex and Gender Information Value Date Recorded Sex Assigned at Not on file Gender Identity Not on file Sexual Orientation Not on file documented as of this encounter Discharge Summaries * Leanna Moulton PA - 07/19/2020 4:00 PM EST Images from the original note were not included. Inpatient Patient Summary [facility] [address], [place] [id number] Patient Discharge Instructions Name: TESS COLEMAN Justo Current Date: 07/19/2020 16:00:23 : 1955 FIN: NBR%>[id number] Patient Address: [address] [facility] [address] Patient Primary Care Provider: Name: NADIA SANON Immunizations Provided: Discharge Diagnosis: Arthritis; Ryan esophagus; DDD (degenerative disc disease), lumbar; Diabetes; GERD (gastroesophageal reflux disease); High cholesterol; History of kidney stones; Hypertension;Mass of colon; Seasonal allergies; Sleep apnea; Spinal stenosis Discharged To: TO, ANTICIPATED%> Home Treatments: TREATMENTS, ANTICIPATED%> Devices/Equipment: EQUIPMENT REHAB%> Post Hospital Services: HOSPITAL SERVICES%> Professional Skilled Services: SKILLED SERVICES%> Special Services and Community Resources: SERV AND COMM RES, ANTICIPATED%> Mode of Discharge Transportation: TRANSPORTATION%> Discharge Orders Discharge Patient 07/19/20 15:44:00 EST, Discharge Home/Self Care Comment: Medications During the course of your visit, your medication list was updated with the most current information. The details of those changes are reflected below: New Medications [facility]ID [facility], [address] [place], [place] [id number], [phone] docusate (Colace 100 mg oral capsule) 1 Capsules Oral (given by mouth) every day as needed constipation for 10 Days. Refills: 0. Last Dose: Printed Prescriptions oxyCODONE (oxyCODONE 5 mg oral tablet) 1 Tabs Oral (given by mouth) every 4 hours. Refills: 0. Last Dose: Medications That Were Updated - Follow Current Instructions Printed Prescriptions Current: acetaminophen (Tylenol Extra Strength 500 mg oral tablet) 1 Tabs Oral (given by mouth) 3 times a day as needed for pain for 7 Days. Refills: 0. Last Dose: Medications That Have Not Changed Other Medications aspirin (aspirin 81 mg oral delayed release tablet) 1 Tabs Oral (given by mouth) every day. Last Dose: atorvastatin (Lipitor 40 mg oral tablet) 1 Tabs Oral (given by mouth) every day. Last Dose: bacillus coagulans-inulin (Probiotic Formula (Bacillus Coagulans) oral capsule) 1 Capsules Oral (given by mouth) every day. Last Dose: cholecalciferol (Vitamin D3 5000 intl units oral tablet) 5,000 Units Oral (given by mouth) every day. Last Dose: cyclobenzaprine (cyclobenzaprine 10 mg oral [...] a day (in the morning). Last Dose: melatonin (Melatonin) 1 Milligram Oral (given by mouth) Once a Day (at bedtime) as needed as neededfor sleep. Last Dose: metFORMIN 1,000 Milligram Oral (given by mouth) 2 times a day. Last Dose: multivitamin with minerals (Centrum Silver oral tablet) 1 Tabs Oral (given by mouth) every day. Last Dose: olmesartan (Benicar 20 mg oral tablet) 1 Tabs Oral (given by mouth) every day. Last Dose: pantoprazole (Protonix 40 mg oral delayed release tablet) 1 Tabs Oral (given by mouth) 2 times a day. Last Dose: ubiquinone (elppa CoQ10 50 mg oral capsule) 2 Capsules Oral (given by mouth) every day. Last Dose: [facility] would like to thank you for allowing us to assist you with your healthcare needs. The following includes patient education materials and information regarding your injury/illness. TESS COLEMAN has been given the following list of follow-up instructions, prescriptions, and patient education materials: Follow-up Instructions: With: Address: When: DELVIS SANCHEZ [address] [facility] [address] [place] [address] In 1 week Comments: Follow up with Dr. Mohamud or Leanna DALLAS in 10-14 days from surgery for staple removal. [facility] office at [phone] to schedule appointment. With: Address: When: NADIA SANON [address] [facility] [address] [place] [address] Business (1) It is important to always keep an active list of medications available so that you can share with other providers and manage your medications appropriately. As an additional courtesy, we are also providing you with your final active medications list that you can keep with you. acetaminophen (Tylenol Extra Strength 500 mg oral tablet) 1 Tabs Oral (given by mouth) 3 times a day as needed for pain for 7 Days. Refills: 0. aspirin (aspirin 81 mg oral delayed release tablet) 1 Tabs Oral (given by mouth) every day. atorvastatin (Lipitor 40 mg oral tablet) 1 Tabs Oral (given by mouth) every day. bacillus coagulans-inulin (Probiotic Formula (Bacillus Coagulans) oral capsule) 1 Capsules Oral (given by mouth) every day. cholecalciferol (Vitamin D3 5000 intl units oral tablet) 5,000 Units Oral (given by mouth) every day. cyclobenzaprine (cyclobenzaprine 10 mg oral tablet) 1 Tabs Oral (given by mouth) 3 times a day as needed., THIS MEDICATION IS ASSOCIATED WITH AN INCREASED RISK OF FALLS. docusate (Colace 100 mg oral capsule) 1 Capsules Oral (given by mouth) every day as needed constipation for 10 Days. Refills: 0. dulaglutide (Trulicity Pen 0.75 mg/0.5 mL subcutaneous solution) 1.5 Milligram Subcutaneous (under the skin) every week. ON WEDNESDAY. empagliflozin (Jardiance 25 mg oral tablet) 1 Tabs Oral (given by mouth) once a day (in the morning). melatonin (Melatonin) 1 Milligram Oral (given by mouth) Once a Day (at bedtime) as needed as neededfor sleep. metFORMIN 1,000 Milligram Oral (given by mouth) 2 times a day. multivitamin with minerals (Centrum Silver oral tablet) 1 Tabs Oral (given by mouth) every day. olmesartan (Benicar 20 mg oral tablet) 1 Tabs Oral (given by mouth) every day. oxyCODONE (oxyCODONE 5 mg oral tablet) 1 Tabs Oral (given by mouth) every 4 hours. Refills: 0. pantoprazole (Protonix 40 mg oral delayed release tablet) 1 Tabs Oral (given by mouth) 2 times a day. ubiquinone (elppa CoQ10 50 mg oral capsule) 2 Capsules Oral (given by mouth) every day. Take only the medications listed above. Contact your doctor prior to taking any medications not on this list. Discharge instructions, if any, will display below Instructions for Diet: INSTRUCTIONS FOR DIET%>Low fiber/Low residue diet Instructions for Supplements: SUPPLEMENT INSTRUCTIONS%>Ensure Enlive or equivalent Instructions for Activity: INSTRUCTIONS FOR ACTIVITY%>Daily walk, Walk as much as possible, Other: Limit lifting over 20 lbs Instructions for Wound Care: INSTRUCTIONS FOR WOUND CARE%>Keep incision clean and dry, May shower, No tub bath, Report signs/symptoms of infection such as fever, swelling, Medication leaflets, if any, will display below [...] signs, call to get immediate medical attention! [facility] allows you to manage your health, view your test results, and retrieve your discharge documents from your hospital stay securely and conveniently from your computer. To begin the enrollment process, visit [email or web address]. Click on ???Sign up now?? under [facility]. * Leanna Moulton PA - 07/19/2020 4:00 PM EST Inpatient Clinical Summary [facility] Post-Acute Care Transfer Instructions PERSON INFORMATION Name: TESS COLEMAN FIN#: [id number] PHYSICIANS Admitting Physician: DELVIS BYNUM Attending Physician: DELVIS BYNUM PCP: NADIA SANON Discharge Diagnosis: Arthritis; Ryan esophagus; DDD (degenerative disc disease), lumbar; Diabetes; GERD (gastroesophageal reflux disease); High cholesterol; History of kidney stones; Hypertension;Mass of colon; Seasonal allergies; Sleep apnea; Spinal stenosis Comment: PATIENT EDUCATION INFORMATION Instructions: Medication Leaflets: Follow-up: With: Address: When: DELVIS SANCHEZ [address] [place] [address] [place] [address] In 1 week Comments: Follow up with Dr. Mohamud or Leanna DALLAS in 10-14 days from surgery for staple removal. [facility] at [phone] to schedule appointment. With: Address: When: NADIA SANON [address] [facility] [place] [address] Business (1) MEDICATION LIST Medication Reconciliation at Discharge: New Medications [facility] [employer] [facility], [address] [employer] [place], [place] [id number], [phone] docusate (Colace 100 mg oral capsule) 1 Capsules Oral (given by mouth) every day as needed constipation for 10 Days. Refills: 0. Last Dose: Printed Prescriptions oxyCODONE (oxyCODONE 5 mg oral tablet) 1 Tabs Oral (given by mouth) every 4 hours. Refills: 0. Last Dose: Medications That Were Updated - Follow Current Instructions Printed Prescriptions Current: acetaminophen (Tylenol Extra Strength 500 mg oral tablet) 1 Tabs Oral (given by mouth) 3 times a day as needed for pain for 7 Days. Refills: 0. Last Dose: Medications That Have Not Changed Other Medications aspirin (aspirin 81 mg oral delayed release tablet) 1 Tabs Oral (given by mouth) every day. Last Dose: atorvastatin (Lipitor 40 mg oral tablet) 1 Tabs Oral (given by mouth) every day. Last Dose: bacillus coagulans-inulin (Probiotic Formula (Bacillus Coagulans) oral capsule) 1 Capsules Oral (given by mouth) every day. Last Dose: cholecalciferol (Vitamin D3 5000 intl units oral tablet) 5,000 Units Oral (given by mouth) every day. Last Dose: cyclobenzaprine (cyclobenzaprine 10 mg oral [...] a day (in the morning). Last Dose: melatonin (Melatonin) 1 Milligram Oral (given by mouth) Once a Day (at bedtime) as needed as neededfor sleep. Last Dose: metFORMIN 1,000 Milligram Oral (given by mouth) 2 times a day. Last Dose: multivitamin with minerals (Centrum Silver oral tablet) 1 Tabs Oral (given by mouth) every day. Last Dose: olmesartan (Benicar 20 mg oral tablet) 1 Tabs Oral (given by mouth) every day. Last Dose: pantoprazole (Protonix 40 mg oral delayed release tablet) 1 Tabs Oral (given by mouth) 2 times a day. Last Dose: ubiquinone (elppa CoQ10 50 mg oral capsule) 2 Capsules Oral (given by mouth) every day. Last Dose: Patient???s Final Home Medication List Upon Discharge: acetaminophen (Tylenol Extra Strength 500 mg oral tablet) 1 Tabs Oral (given by mouth) 3 times a day as needed for pain for 7 Days. Refills: 0. aspirin (aspirin 81 mg oral delayed release tablet) 1 Tabs Oral (given by mouth) every day. atorvastatin (Lipitor 40 mg oral tablet) 1 Tabs Oral (given by mouth) every day. bacillus coagulans-inulin (Probiotic Formula (Bacillus Coagulans) oral capsule) 1 Capsules Oral (given by mouth) every day. cholecalciferol (Vitamin D3 5000 intl units oral tablet) 5,000 Units Oral (given by mouth) every day. cyclobenzaprine (cyclobenzaprine 10 mg oral tablet) 1 Tabs Oral (given by mouth) 3 times a day as needed., THIS MEDICATION IS ASSOCIATED WITH AN INCREASED RISK OF FALLS. docusate (Colace 100 mg oral capsule) 1 Capsules Oral (given by mouth) every day as needed constipation for 10 Days. Refills: 0. dulaglutide (Trulicity Pen 0.75 mg/0.5 mL subcutaneous solution) 1.5 Milligram Subcutaneous (under the skin) every week. ON WEDNESDAY. empagliflozin (Jardiance 25 mg oral tablet) 1 Tabs Oral (given by mouth) once a day (in the morning). melatonin (Melatonin) 1 Milligram Oral (given by mouth) Once a Day (at bedtime) as needed as neededfor sleep. metFORMIN 1,000 Milligram Oral (given by mouth) 2 times a day. multivitamin with minerals (Centrum Silver oral tablet) 1 Tabs Oral (given by mouth) every day. olmesartan (Benicar 20 mg oral tablet) 1 Tabs Oral (given by mouth) every day. oxyCODONE (oxyCODONE 5 mg oral tablet) 1 Tabs Oral (given by mouth) every 4 hours. Refills: 0. pantoprazole (Protonix 40 mg oral delayed release tablet) 1 Tabs Oral (given by mouth) 2 times a day. ubiquinone (elppa CoQ10 50 mg oral capsule) 2 Capsules Oral (given by mouth) every day. Comment: ORDERS Order Name Order Details Discharge Patient 07/19/20 15:44:00 EST, Discharge Home/Self Care documented in this encounter Medications at Time of Discharge Medication Sig Dispensed Refills Start Date End Date cyclobenzaprine (FLEXERIL) 10 MG tablet 10 mg 1 tabs, Oral, TID, PRN, 0, 10/19/19 10:31:00 EDT, Tab 10/19/2019 09/21/2022 tadalafil (CIALIS) 20 MG tablet Take 1 tablet by mouth as needed for Erectile Dysfunction 06/11/2020 07/06/2023 documented as of this encounter Progress Notes * Historical Provider, [facility] - 07/17/2020 3:25 PM EST Dietary Progress Note NUTRITION ASSESSMENT: ERAS c/s ASSESSMENT: 65 yoM admitted 07/16/20 c cecal colon cancer. Patient referred to practice by GI after endoscopy and colonoscopy performed for ABD discomfort 06/06/20. Adenocarcinoma found. Now s/p lap R colectomy (completed 07/16). Clear and full liquid diets started 07/16. Diet advanced to 07/17 today. Patient reporting toleration. 100% breakfast recorded, patient listing items of 50%. Emesis yesterday but improved today. He is sipping Ensure High Proteins (which are ordered TID), however he feels these are very sweet and heavy. Has to sip them-50% at best. No reported chewing/swallowing issues. Patient is walking in hopes of helping bloated feeling. PMH: HTN, DM, HLD FOOD ALLERGIES: NKFA LABS: POC BG 99-105 (07/17) RELEVANT MEDS: Scheduled: atorvastatin, moderate SSI, pantoprazole SKIN: surgical incision to ABD DIET low residue, consistent carb OUTPUT: no flatus or BM since admission, 1.8 L urine SOCIAL, CULTURAL, OR RELGIOUS CONSIDERATIONS: none noted HT: 175.3 cm?? WT: 97.5 kg? BMI: 31.7-obese, class I? WT HX ASSISTANT TERMINAL MANAGER: intentional weight loss of 40 lbs. over past year PO HX ASSISTANT TERMINAL MANAGER: WNL (At least 75% usual intake). Patient reports that he is very motivated to maintain good nutritional status throughout cancer diagnosis. He bought 4 oncology nutrition books (including one cookbook) to prep him for GI soft and then regular diet. He would like to maintain his weight loss. No chronic N/V. No chronic chewing/swallowing issues. Patient enjoys cooking, eating out. He hasto limit high oxylate foods 2/2 repeat kidney stones (of which most recent one was 11 mm). NUTRITION FOCUSED PHYSICAL EXAM (NFPE): adequate muscle and subcutaneous fat stores noted DIAGNOSIS: Altered GI function-related to colon cancer-as evidenced by s/p colectomy, no BM/flatus yet, patient feeling bloated Goals: 1-toleration of nutrition; 2-return of bowel function?? EER: 2118 kcal (1.2 x MSJ, 29 kcal/kg IBW)? EPR: 107 g PRO (1.1 g/kg, 1.5 g/kg IBW-20% EER) MSJ: 1765 kcal CHO: 265 g carbs (50% EER)? FLUID: 2.4-2.7 L (30-35 mL/kg ABW) IBW: 72.8 kg ABW: 79 kg INTERVENTION: -Continue PO diet as ordered-consistent carb modifier provides about 1810 kcal, 107 g PRO/day -Encouraged PO intake as tolerated 2. Continue ERAS/MD protocol of Ensure High Protein TID to supplement intake (480 kcal, 48 g PRO) 3. Provided GI soft diet education. We reviewed insoluble fibrous foods to avoid, options that are okay, I encouraged protein intake, and encouraged limiting greasy/fried foods. Patient had questionsabout soft higher oxylate foods mixed with alternatives like cheese. Because patient is so prone tokidney stones, and recovering from surgery, recommended avoiding trigger foods. Good healthcare receptionist-goodcompliance anticipated. Contact information provided. Patient stated understanding. Discharge Planning: Available prn for questions/concerns regarding nutrition plan for discharge. -GI soft diet until MD approves to advance to high fiber diet. Suggest Ensure Enlive if PO <50% at a meal (350 kcal, 20 g PRO each). If patient is looking for snack/supplementation, recommend Ensure High Protein 2/2 diagnosis of DM. Patient has a full case of Ensure High Protein at home. -Written GI soft diet education material provided at 07/17 visit MONITORING/EVALUATION: PO intake, ONS intake, education needs, labs, skin integrity, weight trends,POC. F/u within 7 days, consult RD prn. Jess Ricks, MS, RD, LD, [facility] Office:[phone]-Telemediq: Clinical Nutrition Signature Line Electronically Signed on 07/17/2020 03:25 PM EST Jess Ricks * Historical Provider, [facility] - 07/17/2020 9:06 AM EST PT Time Spent with Patient Acute/OP-Text PT Time Spent With Patient Outpatient/Acute Entered On: 07/17/2020 9:09 EST Performed On: 07/17/2020 9:06 EST by COURTNEY Hemphill Sara J Time Spent With Patient PT Treatment Time Comment : PT order received & chart reviewed - PT observed pt ambulating indply >200ft in hallway s AD, discussed PT orders with pt, pt & PT agree pt is at PLOF & skilled PT not needed at this time. orders discontinued. re-consult if fnxl change occurs & medically appropriate for skilled PT. PT Functional Training Time : 0 minutes PT Total Timed Code Min : 0 PT Total Treatment Time Acute/OP : 0 COURTNEY Hemphill Sara J - 07/17/2020 9:06 EST documented in this encounter Plan of Treatment Upcoming Encounters Date Type Department Care Team (Late st Contact Info) Description 03/24/2024 9:00 AM EDT Office Visit Neurology - [address] [place] [address] Martell Calderon MD [address] [place] [address] TREMORS/ MEDICARE, FOR LIFE 03/28/2024 8:30 AM EDT Office Visit Primary Care - [address] [address] Cheo Santoyo, DO [address] [place] [address] AWV 04/06/2024 9:45 AM EST Lab [facility] [address] [address] [place] [phone] CBCMP,CEA,FEST 04/06/2024 10:15 AM EST Office Visit [facility] [address] [address] [place] [phone] Georgi Butterfield MD [address] [facility] [address] [place] [address] 6 MTH FU W/LABS, REV SCAN 04/13/2024 9:30 AM EST Office Visit Surgical Oncology - [facility] [address] [facility] [facility] [address] [place] [phone] Delvis Cheek MD [address] [facility] [address] [place] [address] 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 06/19/2024 10:30 AM EST Office Visit Orthopaedics- Les Valencia [address] [facility] [address] [place] [phone] Karly Bautista PA [address] [place] [address] annual visit from date of surgery May/Jul 2024 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 documented as of this encounter Procedures Procedure Name Priority Date/Time Associated Diagnosis Comments POCT GLUCOSE Routine 07/19/2020 12:04 PM EST POCT GLUCOSE Routine 07/19/2020 7:30 AM EST CBC WITH AUTO DIFFERENTIAL Routine 07/19/2020 4:57 AM EST BASIC METABOLIC PANEL Routine 07/19/2020 4:57 AM EST POCT GLUCOSE Routine 07/18/2020 9:13 PM EST POCT GLUCOSE Routine 07/18/2020 4:39 PM EST POCT GLUCOSE Routine 07/18/2020 11:45 AM EST POCT GLUCOSE Routine 07/18/2020 7:44 AM EST CBC WITH AUTO DIFFERENTIAL Routine 07/18/2020 5:30 AM EST MAGNESIUM Routine 07/18/2020 5:30 AM EST HEMOGLOBIN A1C Routine 07/18/2020 5:30 AM EST COMPREHENSIVE METABOLIC PANEL Routine 07/18/2020 5:30 AM EST POCT GLUCOSE Routine 07/17/2020 9:43 PM EST POCT GLUCOSE Routine 07/17/2020 4:51 PM EST POCT GLUCOSE Routine 07/17/2020 12:24 PM EST POCT GLUCOSE Routine 07/17/2020 9:26 AM EST POCT GLUCOSE Routine 07/17/2020 8:24 AM EST POCT GLUCOSE Routine 07/17/2020 7:21 AM EST POCT GLUCOSE Routine 07/17/2020 6:06 AM EST CBC WITH AUTO DIFFERENTIAL Routine 07/17/2020 5:13 AM EST PHOSPHORUS Routine 07/17/2020 5:13 AM EST MAGNESIUM Routine 07/17/2020 5:13 AM EST COMPREHENSIVE METABOLIC PANEL Routine 07/17/2020 5:13 AM EST POCT GLUCOSE Routine 07/17/2020 4:52 AM EST POCT GLUCOSE Routine 07/17/2020 3:37 AM EST POCT GLUCOSE Routine 07/17/2020 2:24 AM EST POCT GLUCOSE Routine 07/17/2020 1:07 AM EST POCT GLUCOSE Routine 07/16/2020 10:57 PM EST POCT GLUCOSE Routine 07/16/2020 8:53 PM EST POCT GLUCOSE Routine 07/16/2020 7:45 PM EST POCT GLUCOSE Routine 07/16/2020 6:35 PM EST POCT GLUCOSE Routine 07/16/2020 5:24 PM EST POCT GLUCOSE Routine 07/16/2020 4:25 PM EST POCT GLUCOSE Routine 07/16/2020 2:24 PM EST POCT GLUCOSE Routine 07/16/2020 1:18 PM EST POCT GLUCOSE Routine 07/16/2020 12:07 PM EST POCT GLUCOSE Routine 07/16/2020 11:02 AM EST POCT GLUCOSE Routine 07/16/2020 10:33 AM EST POCT GLUCOSE Routine 07/16/2020 10:11 AM EST POCT GLUCOSE Routine 07/16/2020 6:52 AM EST SURGICAL PATHOLOGY CONSULTATION REPORT 07/16/2020 12:00 AM EST LAB SCANNED REPORT 07/16/2020 documented in this encounter Results * POCT Glucose (07/19/2020 12:04 PM EST) POC Glucose 100.0 70.0 - 120.0 mg/dL [facility] CERNER CONVERSION Comment:Performing Lab: RH I T1000 POC 07/19/2020 12:0 4 PM EST 07/19/2020 12:04 PM EST Comment:Blood Delvis Davis MD POINT OF CA RE TEST ORDERABLES Performing Organization Address [facility] Co de Phone Number RS CERNER CONVERSION * (ABNORMAL) POCT Glucose (07/19/2020 7:30 AM EST) POC Glucose 194.0(H) 70.0 - 120.0 mg/dL [facility] CERNER CONVERSION Comment:Performing Lab: RH I T1000 POC 07/19/2020 7:30 AM EST 07/19/2020 7:30 AM EST Comment:Blood Delvis Davis MD POINT OF CA RE TEST ORDERABLES Performing Organization Address [facility] Co de Phone Number RS CERNER CONVERSION * (ABNORMAL) Basic Metabolic Panel (07/19/2020 4:57 AM EST) Sodium 139 135 - 145 mmol/L [facility] CERNER CONVERSION Comment:Performing Lab: RH C marybeth 6000 Pending Potassium 5.0 3.5 - 5.3 mmol/L [facility] CERNER CONVERSION Comment:Performing Lab: RH C [address] 6000 Pending Chloride 105 98 - 107 mmol/L [facility] CERNER CONVERSION Comment:Performing Lab: RH C [address] Pending CO2 30(H) 22 - 29 mmol/L [facility] CERNER CONVERSION Comment:Performing Lab: RH C [address] Pending Glucose 121(H) 70 - 99 mg/dL [facility] CERNER CONVERSION Comment:Performing Lab: RH C [address] Pending BUN 14 8 - 23 mg/dL [facility] CERNER CONVERSION Comment:Performing Lab: RH C [address] Pending Creatinine 1.1 0.7 - 1.3 mg/dL [facility] CERNER CONVERSION Comment:Performing Lab: RH C [address] Pending Anion Gap 5 2 - 17 mmol/L [facility] CERNER CONVERSION Comment:Performing Lab: RH C [address] Pending Osmolaliy Calculated 279 270 - 287 mOsm/kg [facility] CERNER CONVERSION Comment:Performing Lab: RH C [address] Pending Calcium 9.1 8.8 - 10.2 mg/dL [facility] CERNER CONVERSION Comment:Performing Lab: RH C [address] Pending GFR 82(L) >=90 mL/min/1.7 3m^2 [facility] CERNER CONVERSION Comment: VERIFIED by Discern Expert. Performing Lab: ??RH Harry 6000 Pending GFR Non- 71(L) >=90 mL/min/1.7 3m^2 [facility] CERNER CONVERSION Comment: VERIFIED by Discern Expert. Interpretive Data: GFR Interpretation: ? % OF KIDNEY GFR ?STAGE ?FUNCTION == ??> 90 ?Normal kidney function ? STAGE 1 ? 90-100% 89 to 60 ?Mild loss of kidney function ? STAGE 2 ?80-60% 59 to 45 ?Mild to moderate loss of kidney function ? STAGE 3a ? 59-45% 44 to 30 ?Moderate to severe loss of kidney function ?? STAGE 3b ? 44-30% 29 to 15 ?Severe loss of kidney function ? STAGE 4 ?29-15% ??< 15 ?Kidney failure ? STAGE 5 ?<15% == Modified from [employer] GFR Calculation performed using the CKD-EPI equation developed for use with IDMS traceable creatinine methods and is the calcualtion recommended by the National [employer] for estimating GFR in adults. Performing Lab: ??RH Harry 6000 Pending 07/19/2020 4:57 AM EST 07/19/2020 5:25 AM EST Comment:Blood Leanna DALLAS CHEMISTRY ORDERABLES [facility] CONVERSION * CBC with Auto Differential (07/19/2020 4:57 AM EST) WBC 7.5 3.8 - 10.6 x10e3/mcL [facility] CONVERSION Comment:Performing Lab: RH W AM RBC 4.31 4.00 - 5.60 x10e6/mcL [facility] CONVERSION Comment:Performing Lab: RH W AM Hemoglobin 13.4 13.0 - 17.3 g/dL [facility] CONVERSION Comment:Performing Lab: RH W AM Hematocrit 40.2 38.0 - 52.0 % [facility] CONVERSION Comment:Performing Lab: RH W AM MCV 93.3 84.0 - 100.0 fL [facility] CONVERSION Comment:Performing Lab: RH W AM MCH 31.1 27.0 - 34.5 pg [facility] CONVERSION Comment:Performing Lab: RH W AM MCHC 33.3 32.0 - 36.0 g/dL [facility] CONVERSION Comment:Performing Lab: RH W AM RDW 12.5 11.0 - 16.0 % [facility] CONVERSION Comment:Performing Lab: RH W AM Platelets 212 140 - 440 x10e3/mcL [facility] CONVERSION Comment:Performing Lab: RH W AM MPV 10.1 7.2 - 13.2 fL [facility] CONVERSION Comment:Performing Lab: RH W AM NRBC Automated 0.0 0.0 - 0.2 % [facility] CONVERSION Comment:Performing Lab: RH W AM NRBC Absolute 0.000 0.000 - 0.012 x10e3/mcL [facility] CONVERSION Comment:Performing Lab: RH W AM Neutrophils % 59.8 42.0 - 74.0 % [facility] CONVERSION Comment:Performing Lab: RH W AM Lymphocytes 26.5 15.0 - 45.0 % [facility] CONVERSION Comment:Performing Lab: RH W AM Monocytes % 10.2 4.0 - 12.0 % [facility] CONVERSION Comment:Performing Lab: RH W AM Eosinophils % 2.5 0.0 - 7.0 % [facility] CONVERSION Comment:Performing Lab: RH W AM Basophils % 0.7 0.0 - 2.0 % [facility] CONVERSION Comment:Performing Lab: RH W AM Neutrophils Absolute 4.5 1.6 - 7.3 x10e3/mcL [facility] CONVERSION Comment:Performing Lab: RH W AM Lymphocytes Absolute 2.0 1.0 - 3.2 x10e3/mcL [facility] CONVERSION Comment:Performing Lab: RH W AM Monocytes Absolute 0.8 0.3 - 1.0 x10e3/mcL [facility] CONVERSION Comment:Performing Lab: RH W AM Eosinophils Absolute 0.2 0.0 - 0.5 x10e3/mcL [facility] CONVERSION Comment:Performing Lab: RH W AM Basophils Absolute 0.1 0.0 - 0.2 x10e3/mcL [facility] CONVERSION Comment:Performing Lab: RH W AM Immature Granulocytes % 0.3 0.1 - 0.6 % [facility] CONVERSION Comment:Performing Lab: RH W AM Immature Grans (Abs) 0.02 0.00 - 0.06 x10e3/mcL [facility] CONVERSION Comment:Performing Lab: RH W AM 07/19/2020 4:57 AM EST 07/19/2020 5:25 AM EST Comment:Blood Leanna Gisele Saige PA HEMATOLOGY ORDERABLE S Performing Organization Address [facility] de Phone Number [facility] CONVERSION * (ABNORMAL) POCT Glucose (07/18/2020 9:13 PM EST) POC Glucose 148.0(H) 70.0 - 120.0 mg/dL [facility] CONVERSION Comment:Performing Lab: RH I T1000 POC 07/18/2020 9:13 PM EST 07/18/2020 9:13 PM EST Comment:Blood Delvis Davis MD POINT OF CA RE TEST ORDERABLES Performing Organization Address City/[facility] Co de Phone Number [facility] CONVERSION * POCT Glucose (07/18/2020 4:39 PM EST) POC Glucose 116.0 70.0 - 120.0 mg/dL [facility] CONVERSION Comment:Performing Lab: RH I T1000 POC 07/18/2020 4:39 PM EST 07/18/2020 4:39 PM EST Comment:Blood Delvis Davis MD POINT OF CA RE TEST ORDERABLES Performing Organization Address City/[facility] Co de Phone Number [facility] CONVERSION * POCT Glucose (07/18/2020 11:45 AM EST) POC Glucose 110.0 70.0 - 120.0 mg/dL [facility] CONVERSION Comment:Performing Lab: RH I T1000 POC 07/18/2020 11:4 5 AM EST 07/18/2020 11:45 AM EST Comment:Blood Delvis Davis MD POINT [place] RE TEST ORDERABLES Performing Organization Address City/[facility] Co de Phone Number [facility] CONVERSION * (ABNORMAL) POCT Glucose (07/18/2020 7:44 AM EST) POC Glucose 131.0(H) 70.0 - 120.0 mg/dL [facility] CONVERSION Comment:Performing Lab: RH I T1000 POC 07/18/2020 7:44 AM EST 07/18/2020 7:44 AM EST Comment:Blood Delvis Davis MD POINT [facility] RE TEST ORDERABLES Performing Organization Address City/[facility] Co de Phone Number [facility] CONVERSION * Magnesium (07/18/2020 5:30 AM EST) Magnesium 1.8 1.6 - 2.6 mg/dL [facility] CONVERSION Comment:Performing Lab: RH C marybeth 6000 Pending 07/18/2020 5:30 AM EST 07/18/2020 5:53 AM EST Comment:Blood Leanna Moulton PA CHEMISTRY ORDERABLES Performing Organization Address City/State/[facility] Co de Phone Number [facility] CONVERSION * (ABNORMAL) Comprehensive Metabolic Panel (07/18/2020 5:30 AM EST) Sodium 137 135 - 145 mmol/L [facility] CONVERSION Comment:Performing Lab: RH C marybeth 6000 Pending Potassium 4.1 3.5 - 5.3 mmol/L [facility] CONVERSION Comment:Performing Lab: RH C marybeth 6000 Pending Chloride 104 98 - 107 mmol/L [facility] CONVERSION Comment:Performing Lab: RH C marybeth 6000 Pending CO2 25 22 - 29 mmol/L [facility] CONVERSION Comment:Performing Lab: RH C marybeth 6000 Pending Glucose 131(H) 70 - 99 mg/dL [facility] CONVERSION Comment:Performing Lab: RH C marybeth 6000 Pending BUN 15 8 - 23 mg/dL [facility] CONVERSION Comment:Performing Lab: RH C marybeth 6000 Pending Creatinine 1.0 0.7 - 1.3 mg/dL [facility] CONVERSION Comment:Performing Lab: RH C marybeth 6000 Pending Anion Gap 8 2 - 17 mmol/L [facility] CONVERSION Comment:Performing Lab: RH C marybeth 6000 Pending Osmolaliy Calculated 276 270 - 287 mOsm/kg [facility] CONVERSION Comment:Performing Lab: RH C marybeth 6000 Pending Calcium 8.7(L) 8.8 - 10.2 mg/dL [facility] CONVERSION Comment:Performing Lab: RH C marybeth 6000 Pending Total Protein 6.1(L) 6.4 - 8.3 g/dL [facility] CONVERSION Comment:Performing Lab: RH C marybeth 6000 Pending Albumin 3.5 3.5 - 5.2 g/dL [facility] CONVERSION Comment:Performing Lab: RH C marybeth 6000 Pending Globulin 2.6 1.9 - 4.4 g/dL [facility] CONVERSION Comment:Performing Lab: RH C marybeth 6000 Pending Albumin/Globulin Ratio 1.35 1.00 - 2.00 mmol/L [facility] CONVERSION Comment:Performing Lab: RH C marybeth 6000 Pending Total Bilirubin 0.50 0.00 - 1.20 mg/dL [facility] CONVERSION Comment:Performing Lab: RH C marybeth 6000 Pending Alk Phosphatase 49 40 - 130 unit/L [facility] CONVERSION Comment:Performing Lab: RH C marybeth 6000 Pending AST 15 0 - 40 unit/L [facility] CONVERSION Comment:Performing Lab: RH C marybeth 6000 Pending ALT 17 0 - 41 unit/L [facility] CONVERSION Comment:Performing Lab: RH C marybeth 6000 Pending GFR 92 >=90 mL/min/1.7 3m^2 [facility] CONVERSION Comment: VERIFIED by Discern Expert. Performing Lab: ??RH Harry 6000 Pending GFR Non- 80(L) >=90 mL/min/1.7 3m^2 [facility] CONVERSION Comment: VERIFIED by Discern Expert. Interpretive Data: GFR Interpretation: ? % OF KIDNEY GFR ?STAGE ?FUNCTION == ??> 90 ?Normal kidney function ? STAGE 1 ? 90-100% 89 to 60 ?Mild loss of kidney function ? STAGE 2 ?80-60% 59 to 45 ?Mild to moderate loss of kidney function ? STAGE 3a ? 59-45% 44 to 30 ?Moderate to severe loss of kidney function ?? STAGE 3b ? 44-30% 29 to 15 ?Severe loss of kidney function ? STAGE 4 ?29-15% ??< 15 ?Kidney failure ? STAGE 5 ?<15% == Modified from [employer] GFR Calculation performed using the CKD-EPI equation developed for use with IDMS traceable creatinine methods and is the calcualtion recommended by the National Kid[employer] for estimating GFR in adults. Performing Lab: ??RH Harry 6000 Pending 07/18/2020 5:30 AM EST 07/18/2020 5:53 AM EST Comment:Blood Leanna DALLAS CHEMISTRY ORDERABLES [facility] CONVERSION * (ABNORMAL) CBC with Auto Differential (07/18/2020 5:30 AM EST) WBC 10.3 3.8 - 10.6 x10e3/mcL [facility] CONVERSION Comment:Performing Lab: RH W AM RBC 4.31 4.00 - 5.60 x10e6/mcL [facility] CONVERSION Comment:Performing Lab: RH W AM Hemoglobin 13.4 13.0 - 17.3 g/dL [facility] CONVERSION Comment:Performing Lab: RH W AM Hematocrit 40.7 38.0 - 52.0 % [facility] CONVERSION Comment:Performing Lab: RH W AM MCV 94.4 84.0 - 100.0 fL [facility] CONVERSION Comment:Performing Lab: RH W AM MCH 31.1 27.0 - 34.5 pg [facility] CONVERSION Comment:Performing Lab: RH W AM MCHC 32.9 32.0 - 36.0 g/dL [facility] CONVERSION Comment:Performing Lab: RH W AM RDW 12.7 11.0 - 16.0 % [facility] CONVERSION Comment:Performing Lab: RH W AM Platelets 216 140 - 440 x10e3/mcL [facility] CONVERSION Comment:Performing Lab: RH W AM MPV 10.1 7.2 - 13.2 fL [facility] CONVERSION Comment:Performing Lab: RH W AM NRBC Automated 0.0 0.0 - 0.2 % [facility] CONVERSION Comment:Performing Lab: RH W AM NRBC Absolute 0.000 0.000 - 0.012 x10e3/mcL [facility] CONVERSION Comment:Performing Lab: RH W AM Neutrophils % 71.9 42.0 - 74.0 % [facility] CONVERSION Comment:Performing Lab: RH W AM Lymphocytes 16.6 15.0 - 45.0 % [facility] CONVERSION Comment:Performing Lab: RH W AM Monocytes % 9.7 4.0 - 12.0 % [facility] CONVERSION Comment:Performing Lab: RH W AM Eosinophils % 0.9 0.0 - 7.0 % [facility] CONVERSION Comment:Performing Lab: RH W AM Basophils % 0.5 0.0 - 2.0 % [facility] CONVERSION Comment:Performing Lab: RH W AM Neutrophils Absolute 7.4(H) 1.6 - 7.3 x10e3/mcL [facility] CONVERSION Comment:Performing Lab: RH W AM Lymphocytes Absolute 1.7 1.0 - 3.2 x10e3/mcL [facility] CONVERSION Comment:Performing Lab: RH W AM Monocytes Absolute 1.0 0.3 - 1.0 x10e3/mcL [facility] CONVERSION Comment:Performing Lab: RH W AM Eosinophils Absolute 0.1 0.0 - 0.5 x10e3/mcL [facility] CONVERSION Comment:Performing Lab: RH W AM Basophils Absolute 0.1 0.0 - 0.2 x10e3/mcL [facility] CONVERSION Comment:Performing Lab: RH W AM Immature Granulocytes % 0.4 0.1 - 0.6 % [facility] CONVERSION Comment:Performing Lab: RH W AM Immature Grans (Abs) 0.04 0.00 - 0.06 x10e3/mcL [facility] CONVERSION Comment:Performing Lab: RH W AM 07/18/2020 5:30 AM EST 07/18/2020 5:53 AM EST Comment:Blood Leanna DALLAS HEMATOLOGY ORDERABLE S Performing Organization Address City/State/[facility] Co de Phone Number [facility] CONVERSION * (ABNORMAL) Hemoglobin A1C (07/18/2020 5:30 AM EST) [facility] Hemoglobin A1C 6.5(H) 4.0 - 6.0 % [facility]UMMER CONVERSION Comment: Interpretive Data: HEMOGLOBIN A1C INTERPRETATION: The following arbitrary [...] Control > 8.0 % ? Inadequate Control Performing Lab: ??RH Harry 6000 Pending Est. Avg. Glucose, WB 140 [facility] CONVERSION Comment:Performing Lab: RH C marybeth 6000 Pending Est. Avg. Glucose-calculated 154 [facility] CONVERSION Comment: Performing Lab: ??RH Harry 6000 Pending if not already drawn on this admit 07/18/2020 5:30 AM EST 07/18/2020 5:53 AM EST Comment:Blood Leanna DALLAS CHEMISTRY ORDERABLES Performing Organization Address City/[facility]/ZIP Co de Phone Number [facility] CONVERSION * (ABNORMAL) POCT Glucose (07/17/2020 9:43 PM EST) POC Glucose 127.0(H) 70.0 - 120.0 mg/dL [facility] CONVERSION Comment:Performing Lab: RH I T1000 POC 07/17/2020 9:43 PM EST 07/17/2020 9:43 PM EST Comment:Blood Delvis Davis MD POINT OF [place] RE TEST ORDERABLES Performing Organization Address [facility] Co de Phone Number [facility] C[facility] CONVERSION * (ABNORMAL) POCT Glucose (07/17/2020 4:51 PM EST) POC Glucose 176.0(H) 70.0 - 120.0 mg/dL [facility] CONVERSION Comment:Performing Lab: RH I T1000 POC 07/17/2020 4:51 PM EST 07/17/2020 4:51 PM EST Comment:Blood Delvis Davis MD POINT OF CA RE TEST ORDERABLES Performing Organization Address City/[facility] Co de Phone Number [facility] C[facility] CONVERSION * (ABNORMAL) POCT Glucose (07/17/2020 12:24 PM EST) POC Glucose 141.0(H) 70.0 - 120.0 mg/dL [facility] CONVERSION Comment:Performing Lab: RH I T1000 POC 07/17/2020 12:2 4 PM EST 07/17/2020 12:24 PM EST Comment:Blood Delvis Davis MD POINT OF CA RE TEST ORDERABLES Performing Organization Address [facility] de Phone Number [facility] CONVERSION * POCT Glucose (07/17/2020 9:26 AM EST) POC Glucose 109.0 70.0 - 120.0 mg/dL [facility] CONVERSION Comment:Performing Lab: RH I T1000 POC 07/17/2020 9:26 AM EST 07/17/2020 9:26 AM EST Comment:Blood Delvis Davis MD POINT OF CA RE TEST ORDERABLES Performing Organization Address [facility] de Phone Number [facility] CONVERSION * (ABNORMAL) POCT Glucose (07/17/2020 8:24 AM EST) POC Glucose 155.0(H) 70.0 - 120.0 mg/dL [facility] CONVERSION Comment:Performing Lab: RH I T1000 POC 07/17/2020 8:24 AM EST 07/17/2020 8:24 AM EST Comment:Blood Delvis Davis MD POINT OF CA RE TEST ORDERABLES Performing Organization Address City/[facility] Co de Phone Number [facility] CONVERSION * POCT Glucose (07/17/2020 7:21 AM EST) POC Glucose 109.0 70.0 - 120.0 mg/dL [facility] CONVERSION Comment:Performing Lab: RH I T1000 POC 07/17/2020 7:21 AM EST 07/17/2020 7:21 AM EST Comment:Blood Delvis Davis MD POINT OF CA RE TEST ORDERABLES Performing Organization Address City/[facility] de Phone Number [facility] CONVERSION * POCT Glucose (07/17/2020 6:06 AM EST) POC Glucose 100.0 70.0 - 120.0 mg/dL [facility] CONVERSION Comment:Performing Lab: RH I T1000 POC 07/17/2020 6:06 AM EST 07/17/2020 6:06 AM EST Comment:Blood Delvis Davis MD POINT OF CA RE TEST ORDERABLES Performing Organization Address [facility] de Phone Number [facility] CONVERSION * Phosphorus (07/17/2020 5:13 AM EST) Phosphorus 3.9 2.5 - 4.5 mg/dL [facility] CONVERSION Comment:Performing Lab: RH C marybeth 6000 Pending 07/17/2020 5:13 AM EST 07/17/2020 5:30 AM EST Comment:Blood Leanna DALLAS CHEMISTRY ORDERABLES Performing Organization Address City/[facility] de Phone Number [facility] CONVERSION * Magnesium (07/17/2020 5:13 AM EST) Magnesium 2.0 1.6 - 2.6 mg/dL [facility] CONVERSION Comment:Performing Lab: RH C marybeth 6000 Pending 07/17/2020 5:13 AM EST 07/17/2020 5:30 AM EST Comment:Blood Leanna DALLAS CHEMISTRY ORDERABLES [facility] CONVERSION * (ABNORMAL) Comprehensive Metabolic Panel (07/17/2020 5:13 AM EST) Sodium 137 135 - 145 mmol/L [facility] CONVERSION Comment:Performing Lab: RH C marybeth 6000 Pending Potassium 4.2 3.5 - 5.3 mmol/L [facility] CONVERSION Comment:Performing Lab: RH C marybeth 6000 Pending Chloride 104 98 - 107 mmol/L [facility] CONVERSION Comment:Performing Lab: RH C marybeth 6000 Pending CO2 26 22 - 29 mmol/L [facility] CONVERSION Comment:Performing Lab: RH C marybeth 6000 Pending Glucose 99 70 - 99 mg/dL [facility] CONVERSION Comment:Performing Lab: RH C marybeth 6000 Pending BUN 18 8 - 23 mg/dL [facility] CONVERSION Comment:Performing Lab: RH C marybeth 6000 Pending Creatinine 1.2 0.7 - 1.3 mg/dL [facility] CONVERSION Comment:Performing Lab: RH C marybeth 6000 Pending Anion Gap 7 2 - 17 mmol/L [facility] CONVERSION Comment:Performing Lab: RH C marybeth 6000 Pending Osmolaliy Calculated 276 270 - 287 mOsm/kg [facility] CONVERSION Comment:Performing Lab: RH C marybeth 6000 Pending Calcium 9.1 8.8 - 10.2 mg/dL [facility] CONVERSION Comment:Performing Lab: RH C marybeth 6000 Pending Total Protein 6.3(L) 6.4 - 8.3 g/dL [facility] CONVERSION Comment:Performing Lab: RH C marybeth 6000 Pending Albumin 3.7 3.5 - 5.2 g/dL [facility] CONVERSION Comment:Performing Lab: RH C marybeth 6000 Pending Globulin 2.6 1.9 - 4.4 g/dL [facility] CONVERSION Comment:Performing Lab: RH C marybeth 6000 Pending Albumin/Globulin Ratio 1.42 1.00 - 2.00 mmol/L [facility] CONVERSION Comment:Performing Lab: RH C marybeth 6000 Pending Total Bilirubin 0.40 0.00 - 1.20 mg/dL [facility] CONVERSION Comment:Performing Lab: RH C marybeth 6000 Pending Alk Phosphatase 53 40 - 130 unit/L [facility] CONVERSION Comment:Performing Lab: RH C marybeth 6000 Pending AST 18 0 - 40 unit/L [facility] CONVERSION Comment:Performing Lab: RH C marybeth 6000 Pending ALT 20 0 - 41 unit/L [facility] CONVERSION Comment:Performing Lab: RH C marybeth 6000 Pending GFR 74(L) >=90 mL/min/1.7 3m^2 [facility] CONVERSION Comment: VERIFIED by Discern Expert. Performing Lab: ??RH Harry 6000 Pending GFR Non- 64(L) >=90 mL/min/1.7 3m^2 [facility] CONVERSION Comment: VERIFIED by Discern Expert. Interpretive Data: GFR Interpretation: ? % OF KIDNEY GFR ?STAGE ?FUNCTION == ??> 90 ?Normal kidney function ? STAGE 1 ? 90-100% 89 to 60 ?Mild loss of kidney function ? STAGE 2 ?80-60% 59 to 45 ?Mild to moderate loss of kidney function ? STAGE 3a ? 59-45% 44 to 30 ?Moderate to severe loss of kidney function ?? STAGE 3b ? 44-30% 29 to 15 ?Severe loss of kidney function ? STAGE 4 ?29-15% ??< 15 ?Kidney failure ? STAGE 5 ?<15% == Modified from [employer] GFR Calculation performed using the CKD-EPI equation developed for use with IDMS traceable creatinine methods and is the calcualtion recommended by the [employer] for estimating GFR in adults. Performing Lab: ??RH Harry 6000 Pending 07/17/2020 5:13 AM EST 07/17/2020 5:30 AM EST Comment:Blood Leanna DALLAS CHEMISTRY ORDERABLES [facility] CONVERSION * (ABNORMAL) CBC with Auto Differential (07/17/2020 5:13 AM EST) WBC 16.6(H) 3.8 - 10.6 x10e3/mcL [facility] CONVERSION Comment:Performing Lab: RH W AM RBC 4.56 4.00 - 5.60 x10e6/mcL [facility] CONVERSION Comment:Performing Lab: RH W AM Hemoglobin 14.1 13.0 - 17.3 g/dL [facility] CONVERSION Comment:Performing Lab: RH W AM Hematocrit 42.8 38.0 - 52.0 % [facility] CONVERSION Comment:Performing Lab: RH W AM MCV 93.9 84.0 - 100.0 fL [facility] CONVERSION Comment:Performing Lab: RH W AM MCH 30.9 27.0 - 34.5 pg [facility] CONVERSION Comment:Performing Lab: RH W AM MCHC 32.9 32.0 - 36.0 g/dL [facility] CONVERSION Comment:Performing Lab: RH W AM RDW 12.5 11.0 - 16.0 % [facility] CONVERSION Comment:Performing Lab: RH W AM Platelets 258 140 - 440 x10e3/mcL [facility] CONVERSION Comment:Performing Lab: RH W AM MPV 10.0 7.2 - 13.2 fL [facility] CONVERSION Comment:Performing Lab: RH W AM NRBC Automated 0.0 0.0 - 0.2 % [facility] CONVERSION Comment:Performing Lab: RH W AM NRBC Absolute 0.000 0.000 - 0.012 x10e3/mcL [facility] CONVERSION Comment:Performing Lab: RH W AM Neutrophils % 80.5(H) 42.0 - 74.0 % [facility] CONVERSION Comment:Performing Lab: RH W AM Lymphocytes 9.6(L) 15.0 - 45.0 % [facility] CONVERSION Comment:Performing Lab: RH W AM Monocytes % 9.0 4.0 - 12.0 % [facility] CONVERSION Comment:Performing Lab: RH W AM Eosinophils % 0.0 0.0 - 7.0 % [facility] CONVERSION Comment:Performing Lab: RH W AM Basophils % 0.2 0.0 - 2.0 % [facility] CONVERSION Comment:Performing Lab: RH W AM Neutrophils Absolute 13.3(H) 1.6 - 7.3 x10e3/mcL [facility] CONVERSION Comment:Performing Lab: RH W AM Lymphocytes Absolute 1.6 1.0 - 3.2 x10e3/mcL [facility] CONVERSION Comment:Performing Lab: RH W AM Monocytes Absolute 1.5(H) 0.3 - 1.0 x10e3/mcL [facility] CONVERSION Comment:Performing Lab: RH W AM Eosinophils Absolute 0.0 0.0 - 0.5 x10e3/mcL [facility] CONVERSION Comment:Performing Lab: RH W AM Basophils Absolute 0.0 0.0 - 0.2 x10e3/mcL [facility] CONVERSION Comment:Performing Lab: RH W AM Immature Granulocytes % 0.7(H) 0.1 - 0.6 % [facility] CONVERSION Comment:Performing Lab: RH W AM Immature Grans (Abs) 0.11(H) 0.00 - 0.06 x10e3/mcL [facility] CONVERSION Comment:Performing Lab: RH W AM 07/17/2020 5:13 AM EST 07/17/2020 5:30 AM EST Comment:Blood Leanna Moulton PA HEMATOLOGY ORDERABLE S Performing Organization Address [facility] de Phone Number [facility] CONVERSION * POCT Glucose (07/17/2020 4:52 AM EST) POC Glucose 99.0 70.0 - 120.0 mg/dL [facility] CONVERSION Comment:Performing Lab: RH I T1000 POC 07/17/2020 4:52 AM EST 07/17/2020 4:52 AM EST Comment:Blood Delvis Davis MD POINT OF CA RE TEST ORDERABLES Performing Organization Address [facility] de Phone Number [facility] CONVERSION * (ABNORMAL) POCT Glucose (07/17/2020 3:37 AM EST) POC Glucose 121.0(H) 70.0 - 120.0 mg/dL [facility] CONVERSION Comment:Performing Lab: RH I T1000 POC 07/17/2020 3:37 AM EST 07/17/2020 3:37 AM EST Comment:Blood Delvis Davis MD POINT OF CA RE TEST ORDERABLES Performing Organization Address [facility] de Phone Number [facility] CONVERSION * (ABNORMAL) POCT Glucose (07/17/2020 2:24 AM EST) POC Glucose 129.0(H) 70.0 - 120.0 mg/dL [facility] CONVERSION Comment:Performing Lab: RH I T1000 POC 07/17/2020 2:24 AM EST 07/17/2020 2:24 AM EST Comment:Blood Delvis Davis MD POINT OF CA RE TEST ORDERABLES Performing Organization Address City/State/[facility] Co de Phone Number [facility] C[facility] CONVERSION * (ABNORMAL) POCT Glucose (07/17/2020 1:07 AM EST) POC Glucose 143.0(H) 70.0 - 120.0 mg/dL [facility] CONVERSION Comment:Performing Lab: RH I T1000 POC 07/17/2020 1:07 AM EST 07/17/2020 1:07 AM EST Comment:Blood Delvis Davis MD POINT OF CA RE TEST ORDERABLES Performing Organization Address [facility] de Phone Number [facility] C[facility] CONVERSION * POCT Glucose (07/16/2020 10:57 PM EST) POC Glucose 115.0 70.0 - 120.0 mg/dL [facility] CONVERSION Comment:Performing Lab: RH I T1000 POC 07/16/2020 10:5 7 PM EST 07/16/2020 10:57 PM EST Comment:Blood Delvis Davis MD POINT OF CA RE TEST ORDERABLES Performing Organization Address [facility] Co de Phone Number [facility] C[facility] CONVERSION * POCT Glucose (07/16/2020 8:53 PM EST) POC Glucose 112.0 70.0 - 120.0 mg/dL [facility] CONVERSION Comment:Performing Lab: RH I T1000 POC 07/16/2020 8:53 PM EST 07/16/2020 8:53 PM EST Comment:Blood Delvis Davis MD POINT OF CA RE TEST ORDERABLES Performing Organization Address City/State/[facility] Co de Phone Number [facility] C[facility] CONVERSION * (ABNORMAL) POCT Glucose (07/16/2020 7:45 PM EST) POC Glucose 122.0(H) 70.0 - 120.0 mg/dL [facility] CONVERSION Comment:Performing Lab: RH I T1000 POC 07/16/2020 7:45 PM EST 07/16/2020 7:45 PM EST Comment:Blood Delvis Davis MD POINT OF CA RE TEST ORDERABLES Performing Organization Address [facility] Co de Phone Number [facility] C[facility] CONVERSION * (ABNORMAL) POCT Glucose (07/16/2020 6:35 PM EST) POC Glucose 121.0(H) 70.0 - 120.0 mg/dL [facility] CONVERSION Comment:Performing Lab: RH I T1000 POC 07/16/2020 6:35 PM EST 07/16/2020 6:35 PM EST Comment:Blood Delvis Davis MD POINT OF CA RE TEST ORDERABLES Performing Organization Address [facility] de Phone Number [facility] CONVERSION * (ABNORMAL) POCT Glucose (07/16/2020 5:24 PM EST) POC Glucose 132.0(H) 70.0 - 120.0 mg/dL [facility] CONVERSION Comment:Performing Lab: RH I T1000 POC 07/16/2020 5:24 PM EST 07/16/2020 5:24 PM EST Comment:Blood Delvis Davis MD POINT OF CA RE TEST ORDERABLES Performing Organization Address City/[facility] Co de Phone Number [facility] C[facility] CONVERSION * (ABNORMAL) POCT Glucose (07/16/2020 4:25 PM EST) POC Glucose 146.0(H) 70.0 - 120.0 mg/dL [facility] CERNER CONVERSION Comment:Performing Lab: RH I T1000 POC 07/16/2020 4:25 PM EST 07/16/2020 4:25 PM EST Comment:Blood Delvis Davis MD POINT OF CA RE TEST ORDERABLES Performing Organization Address City/[facility] de Phone Number [facility] CERNER CONVERSION * POCT Glucose (07/16/2020 2:24 PM EST) POC Glucose 111.0 70.0 - 120.0 mg/dL RS CERNER CONVERSION Comment:Performing Lab: RH I T1000 POC 07/16/2020 2:24 PM EST 07/16/2020 2:24 PM EST Comment:Blood Delvis Davis MD POINT OF CA RE TEST ORDERABLES Performing Organization Address [facility] Phone Number [facility] CERNER CONVERSION * (ABNORMAL) POCT Glucose (07/16/2020 1:18 PM EST) POC Glucose 124.0(H) 70.0 - 120.0 mg/dL RS CERNER CONVERSION Comment:Performing Lab: RH I T1000 POC 07/16/2020 1:18 PM EST 07/16/2020 1:18 PM EST Comment:Blood Delvis Davis MD POINT OF CA RE TEST ORDERABLES Performing Organization Address [facility] de Phone Number [facility] CERNER CONVERSION * POCT Glucose (07/16/2020 12:07 PM EST) POC Glucose 116.0 70.0 - 120.0 mg/dL RS CERNER CONVERSION Comment:Performing Lab: RH I T1000 POC 07/16/2020 12:0 7 PM EST 07/16/2020 12:07 PM EST Comment:Blood Delvis Davis MD POINT OF CA RE TEST ORDERABLES Performing Organization Address City/[facility] Co de Phone Number [facility] CERNER CONVERSION * (ABNORMAL) POCT Glucose (07/16/2020 11:02 AM EST) POC Glucose 165.0(H) 70.0 - 120.0 mg/dL [facility] CERNER CONVERSION Comment:Performing Lab: RH I T1000 POC 07/16/2020 11:0 2 AM EST 07/16/2020 11:02 AM EST Comment:Blood Delvis Davis MD POINT OF CA RE TEST ORDERABLES Performing Organization Address City/[facility] Co de Phone Number [facility] CERNER CONVERSION * (ABNORMAL) POCT Glucose (07/16/2020 10:33 AM EST) POC Glucose 195.0(H) 70.0 - 120.0 mg/dL RS CERNER CONVERSION Comment:Performing Lab: RH I T1000 POC 07/16/2020 10:3 3 AM EST 07/16/2020 10:33 AM EST Comment:Blood Delvis Davis MD POINT OF CA RE TEST ORDERABLES Performing Organization Address [facility] Co de Phone Number [facility] CERNER CONVERSION * (ABNORMAL) POCT Glucose (07/16/2020 10:11 AM EST) POC Glucose 183.0(H) 70.0 - 120.0 mg/dL [facility] CERNER CONVERSION Comment:Performing Lab: RH I T1000 POC 07/16/2020 10:1 1 AM EST 07/16/2020 10:11 AM EST Comment:Blood Delvis Davis MD POINT OF CA RE TEST ORDERABLES Performing Organization Address City/[facility] Co de Phone Number [facility] CERNER CONVERSION * POCT Glucose (07/16/2020 6:52 AM EST) POC Glucose 110.0 70.0 - 120.0 mg/dL [facility] CERNER CONVERSION Comment:Performing Lab: RH I T1000 POC 07/16/2020 6:52 AM EST 07/16/2020 6:52 AM EST Comment:Blood Delvis Davis MD POINT OF CA RE TEST ORDERABLES [facility] CERNER CONVERSION * LAB SCANNED REPORT (07/16/2020) 07/16/2020 Unknown Provider Result HEMATOLOGY ORDER NASIM * SURGICAL PATHOLOGY CONSULTATION REPORT (07/16/2020 12:00 AM EST) Narrative 07/16/2020 12:00 AM EST Ordered by an unspecified provider. Unknown Provider Result PATHOLOGY/CYTOLO GY ORDERABLES documented in this encounter Visit Diagnoses Not on filedocumented in this encounter
--- OUTSIDE RECORDS SUMMARY | 2024-01-11 22:19 | XMS_ITS | Encounter Summary ---
Author Organization Jose Alejandro [facility] Address [address] [place] [address] Care Team Providers Care Director Of Premium Seat Sales Name Role Phone Unavailable Primary Care Provider Unavailabl e Encounter Details Date Type Department Care Team (Late st Contact Info) Description 03/08/2014 11:58 AM EDT - 03/08/2014 11:59 PM EDT Hospital Encounter [facility] HISTORICAL CONVERSIONS [address] [place] [address] oJnn Sanchez III, MD [address] [facility] [place] [address] Social History Tobacco Use Types Packs/Day Years [...] Dr. [address] [place] [address] Martell Calderon MD 2[address] [facility] 220 [place], [place] [id number] TREMORS/ MEDICARE, FOR LIFE 03/28/2024 8:30 AM EDT Office Visit Primary Care - [facility] [address] [place] [phone] Cheo Santoyo, DO [address] [place] [address] AWV 04/06/2024 9:45 AM EST Lab [facility] - [facility] [address] [facility] [address] [place] [phone] CBCMP,CEA,FEST 04/06/2024 10:15 AM EST Office Visit [facility] - [facility] [address] [facility] [address] [place] [phone] Georgi Butterfield MD [address] [place] [address] 6 MTH FU W/LABS, REV SCAN 04/13/2024 9:30 AM EST Office Visit Surgical Oncology - [facility] [address] [facility] [address] [place] [phone] Delvis Cheek MD 125 [facility] 660 [place] [phone] 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 documented as of this encounter Visit Diagnoses Not on filedocumented in this encounter
--- OUTSIDE RECORDS SUMMARY | 2024-01-11 22:19 | XMS_ITS | Encounter Summary ---
Author Organization Jose Alejandro Raymundolinnea [facility] Address [address] [place] [address] Care Team Providers Care Pocket And Pulley Machine Operator Name Role Phone Unavailable Primary Care Provider Unavailabl e Encounter Details Date Type Department Care Team (Late st Contact Info) Description 02/21/2019 12:40 PM EDT - 02/21/2019 11:59 PM EDT Hospital Encounter [facility] HISTORICAL CONVERSIONS [address] [place] [address] More Morales PA 300 [facility] [address] [place], [place] [phone] Social History Tobacco Use Types Packs/Day Years [...] Dr. [address] [place] [phone] Martell Calderon MD 2[address] [facility] [address] [place] [address] TREMORS/ MEDICARE, FOR LIFE 03/28/2024 8:30 AM EDT Office Visit Primary Care - [address] [phone] Cheo Santoyo, DO [address] [place] [address] AWV 04/06/2024 9:45 AM EST Lab [facility] - [facility] [address] [facility] [address] [place] [address] CBCMP,CEA,FEST 04/06/2024 10:15 AM EST Office Visit [facility] - [facility] [address] [facility] [address] [place] [phone] Georgi Butterfield MD [address] [place] [address] 6 MTH FU W/LABS, REV SCAN 04/13/2024 9:30 AM EST Office Visit Surgical Oncology - [facility] [address] [facility] [address] [place] [phone] Delvis Cheek MD 125 [facility] 660 [place] [address] 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 06/19/2024 10:30 AM EST Office Visit Orthopaedics- Les Valencia [address] [facility] [address] [place] [phone] Karly Bautista, BURT [address] [place] [address] annual visit from date of surgery May/Jul 2024 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 documented as of this encounter Procedures Procedure Name Priority Date/Time Associated Diagnosis Comments XR LUMBAR SPINE (MIN 4 VIEWS) Routine 02/21/2019 12:14 PM EDT documented in this encounter Results * XR Spine Lumbosacral Minimum 4 Views (02/21/2019 12:14 PM EDT) Anatomical Region Laterality Modality T-spine, L-spine, Pelvis Radiogr aphic Imaging 02/21/2019 12:1 4 PM EDT 02/21/2019 1:04 PM EDT Narrative 02/21/2019 1:17 PM EDT Lumbosacral spine AP, lateral, and flexion-extension views: 02/21/19 INDICATION: M51.06;M51.06. COMPARISON: None FINDINGS: 5 lumbar type vertebral body. Previous PLIF L2-L3. Satisfactory alignment with no hardware complication. Mild grade 1 retrolisthesis L3-L4. Moderately narrowed L5-S1 disc space. Mild narrowing L3-L4. Mild atherosclerotic calcification abdominal aorta. No instability on flexion, extension views. IMPRESSION: Prior PLIF L2-L3. No hardware complication. There is no instability demonstrated on stress views. Final Releasing Radiologist: ?? LELE, ??LOREN Fleming Released Date and Time: ??02/21/19 13:15 Procedure Note Loren Faust MD - 12/24/2021 Lumbosacral spine AP, lateral, and flexion-extension views: 02/21/19 INDICATION: M51.06;M51.06. COMPARISON: None FINDINGS: 5 lumbar type vertebral body. Previous PLIF L2-L3.Satisfactory alignment with no hardware complication. Mild grade 1 retrolisthesisL3-L4. Moderately narrowed L5-S1 disc space. Mild narrowing L3-L4. Mildatherosclerotic calcification abdominal aorta. No instability on flexion, extensionviews. IMPRESSION: Prior PLIF L2-L3. No hardware complication. There is no instabilitydemonstrated on stress views. Final Releasing Radiologist: LOREN ROYAL Released Date and Time: 02/21/19 13:15 More [facility] ORDERABLES documented in this encounter Visit Diagnoses Not on filedocumented in this encounter
--- OUTSIDE RECORDS SUMMARY | 2024-01-11 22:19 | XMS_ITS | Encounter Summary ---
Author Organization Jose Alejandro liriano [facility] Address [address] [place] [address] Care Team Providers Care Editorial Project Manager Name Role Phone Cheo Santoyo Primary Care Provider [phone] Encounter Details Date Type Department Care Team (Late st Contact Info) Description 10/18/2019 Legacy Historical Encounter [facility] HISTORICAL CONVERSIONS [address] [place], [place] [phone] Tammy Rodriguez PA Social History Tobacco Use [...] Office Visit Neurology - [facility] [address] [facility] [address] [place] [address] Martell Calderon MD 2[address] [facility] [address] [place], [place] [phone] TREMORS/ MEDICARE, FOR LIFE 03/28/2024 8:30 AM EDT Office Visit Primary Care - [address] [address] Cheo Santoyo, [address] [place] [phone] AWV 04/06/2024 9:45 AM EST Lab [facility] - [facility] [address] [facility] [address] [place] [address] CBCMP,CEA,FEST 04/06/2024 10:15 AM EST Office Visit [facility] - [facility] [address] [facility] [address] [place] [address] Georgi Butterfield MD [address] [place] [address] 6 MTH FU W/LABS, REV SCAN 04/13/2024 9:30 AM EST Office Visit Surgical Oncology - [facility] 1 [facility] [address] [place] [address] Delvis Cheek MD 125 [facility] 660 [place] [phone] 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 [address] [place] [address] Karly Bautista PA 180 [facility] 301 [place] [address] annual visit from date of surgery May/Jul 2024 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 documented as of this encounter Visit Diagnoses Not on filedocumented in this encounter Care Teams Editorial Project Manager Relationship Specialty Start Date End Date Cheo Santoyo DO [address] [place] [phone] PCP - General Family Medicine 07/06/23 documented as of this encounter
--- OUTSIDE RECORDS SUMMARY | 2024-01-11 22:19 | XMS_ITS | Encounter Summary ---
Author Organization Jose Alejandro Kit [facility] Address [address] [place] [address] Care Team Providers Care Station Baggage Agent Name Role Phone Unavailable Primary Care Provider Unavailabl e Encounter Details Date Type Department Care Team (Late st Contact Info) Description 10/20/2019 3:17 PM EDT - 10/20/2019 4:47 PM EDT Hospital Encounter [facility] HISTORICAL CONVERSIONS [address] [place] [address] Solange Guthrie MD [address] [address] Social History Tobacco Use Types Packs/Day Years Used Date Smoking Tobacco: Never Assessed Sex and Gender Information Value Date Recorded Sex Assigned at Not on file Gender Identity Not on file Sexual Orientation Not on file documented as of this encounter Discharge Summaries * Historical Provider, [facility] - 10/20/2019 3:09 PM EDT Inpatient Patient Summary [facility] [address] [place], [place] [phone] Patient Discharge Instructions Name: TESS COLEMAN Current Date: 10/20/2019 15:09:02 : 1955 FIN: [id number] Patient Address: [address] [facility] [address] Patient Primary Care Provider: Name: BETTY MARINO Phone: Immunizations Provided: Discharge Diagnosis: Discharged To: TO, ANTICIPATED%> Home Treatments: TREATMENTS, [...] details of those changes are reflected below: Medications that have not changed Other Medications aspirin (aspirin 81 mg oral [...] (Trulicity Pen 0.75 mg/0.5 mL subcutaneous solution) Subcutaneous (under the skin) every week. Last Dose: empagliflozin (Jardiance 25 mg oral tablet) Oral (given by mouth) once a day (in the morning). Last Dose: multivitamin with minerals (Centrum Silver oral tablet) 1 Tabs Oral (given by mouth) every day. Last Dose: olmesartan (Benicar 20 mg oral tablet) 1 Tabs Oral (given by mouth) every day. Last Dose: pantoprazole (Protonix 40 mg oral delayed release tablet) 1 Tabs Oral (given by mouth) every day. Last Dose: [facility] would like to thank you for allowing us to assist you with your healthcare needs. The following includes patient education materials and information regarding your injury/illness. TESS COLEMAN has been given the following list of follow-up instructions, prescriptions, and patient education materials: Follow-up Instructions: With: Address: When: SOLANGE LORD [address] [place] [address] Saperion (1) , only if needed With: Address: When: BETTY MARINO Type Location Start [facility] [place] [facility] Pain Management [facility] Pain Management 3:30 PM 3:45 PM Confirmed It is important to always keep an [...] Tabs Oral (given by mouth) every day. cyclobenzaprine (cyclobenzaprine 10 mg oral tablet) 1 Tabs Oral (given by mouth) 3 times a day as needed., THIS MEDICATION IS ASSOCIATED WITH AN INCREASED RISK OF FALLS. dulaglutide (Trulicity Pen 0.75 mg/0.5 mL subcutaneous solution) Subcutaneous (under the skin) every week. empagliflozin (Jardiance 25 mg oral tablet) Oral (given by mouth) once a day (in the morning). multivitamin with minerals (Centrum Silver oral tablet) 1 Tabs Oral (given by mouth) every day. olmesartan (Benicar 20 mg oral tablet) 1 Tabs Oral (given by mouth) every day. pantoprazole (Protonix 40 mg oral delayed release tablet) 1 Tabs Oral (given by mouth) every day. Take only the medications listed above. Contact your doctor prior to taking any medications not on this list. Discharge instructions, if any, will display below Instructions for Diet: INSTRUCTIONS FOR DIET%>A Healthy Diet Instructions for Supplements: SUPPLEMENT INSTRUCTIONS%> Instructions for Activity: INSTRUCTIONS FOR ACTIVITY%>Gradually resume your normal activity, Limit your activity for 24hrs, May shower, No Baths/Hot Tubs/Oceans/ or Pools, No bending, No bending, twisting or lifting, No driving, No lifting Instructions for Wound Care: INSTRUCTIONS FOR WOUND CARE%> Medication leaflets, if any, will display below Patient education materials, if any, will display below Caring for Your Back Throughout the Day [...] day. This simple warmup can soften your disks, stretch your back muscles, and help prevent injuries. Shift positions often At work and at home, change positions often. This helps keep your body from getting stiff. Stand upor lean back while you sit. If you can, get up and move every 1/2 hour. Form healthy habits Here are some suggestions: ?? Keep a healthy weight. When you weigh too much, your back is under excess strain. But losing just a few extra pounds can help a lot. ?? Try not to overeat. Learn about serving sizes. The size of a serving depends on the food and thefood group. Many foods list serving sizes on the labels. ?? Handle minor aches with cold and heat. Apply cold the first 24 to 48 hours. Use heat after that.Always place a thin cloth between your skin and the source of cold or heat. ?? Take medicines as directed. This helps keep pain under control. Always read labels, and call your healthcare provider or pharmacist if you have any questions. Walk each day A daily walk keeps your back and thigh muscles stretched and strong. This gives your back better support. Be sure to walk with your spines three curves aligned, by keeping your head, hips, and toes connected by a vertical line. ?? [id number] [employer] [place] [address], [place] [address]. All rights reserved. This information is not intended as a substitute for professional medical care. Always follow your healthcare professional's instructions. Lumbar Epidural Injection: Recovery at Home After a lumbar epidural injection, you dont need to stay in bed when you get home. In fact, its best to walk around if you feel [...] severe, you should call your doctor right away. These should also go away within a few days. In general: ?? An injection to reduce inflammation takes a few days to work, sometimes even up to a week. Theremay even be more pain at first. ?? An injection to help locate the source of pain may give only brief pain relief. Later, youll feel the same as you did before the injection. Tips for recovery Whether you were injected for pain relief or diagnosis, these tips will help you recover: ?? Take walks when you feel up to it. ?? Rest if needed, but get up and move around after sitting for half an hour. ?? Dont exercise vigorously. ?? Dont drive the day of the procedure or until your doctor says its OK. ?? Return to work or other activities when your doctor says youre ready. When to call your doctor Call right away if you notice any of the following symptoms: ?? Severe pain or headache ?? Loss of bladder or bowel control ?? Fever or chills ?? Redness or swelling around the injection site ?? [id number] [employer] [place] [address], [place] [address]. All rights reserved. This information is not intended as a substitute for professional medical care. Always follow your healthcare professional's instructions. IS IT A STROKE? Act FAST and [...] signs, call to get immediate medical attention! [facility] allows you to manage your health, view your test results, and retrieve your discharge documents from your hospital stay securely and conveniently from your computer. To begin the enrollment process, visit [email or web address]. Click on ???Sign up now?? under [facility]. Electronically signed by Kian [facility] Incoming Notes - Cerner - Conversion at 03/30/2022 2:08 PM EDT * Historical Provider, [facility] - 10/20/2019 3:09 PM EDT Inpatient Clinical Summary [facility] Post-Acute Care Transfer Instructions PERSON INFORMATION Name: TESS COLEMAN FIN#: [id number] PHYSICIANS Admitting Physician: SOLANGE LORD Attending Physician: SOLANGE LORD PCP: JAMILA, BETTY Guerrero Discharge Diagnosis: Comment: PATIENT EDUCATION INFORMATION Instructions: Caring for Your Back Throughout the Day; Lumbar Epidural Injection: Recovery at Home Medication Leaflets: Follow-up: With: Address: When: SOLANGE LORD [address] [place] [address] Business (1) , only if needed With: Address: When: BETTY MARINO Type Location Start Finish [facility] Pain Management Pain Management 3:30 PM 3:45 PM Confirmed MEDICATION LIST Medication Reconciliation at Discharge: Medications that have not changed Other Medications aspirin (aspirin 81 mg oral [...] (Trulicity Pen 0.75 mg/0.5 mL subcutaneous solution) Subcutaneous (under the skin) every week. Last Dose: empagliflozin (Jardiance 25 mg oral tablet) Oral (given by mouth) once a day (in the morning). Last Dose: multivitamin with minerals (Centrum Silver [...] Tabs Oral (given by mouth) every day. cyclobenzaprine (cyclobenzaprine 10 mg oral tablet) 1 Tabs Oral (given by mouth) 3 times a day as needed., THIS MEDICATION IS ASSOCIATED WITH AN INCREASED RISK OF FALLS. dulaglutide (Trulicity Pen 0.75 mg/0.5 mL subcutaneous solution) Subcutaneous (under the skin) every week. empagliflozin (Jardiance 25 mg oral tablet) Oral (given by mouth) once a day (in the morning). multivitamin with minerals (Centrum Silver oral tablet) 1 Tabs Oral (given by mouth) every day. olmesartan (Benicar 20 mg oral tablet) 1 Tabs Oral (given by mouth) every day. pantoprazole (Protonix 40 mg oral delayed release tablet) 1 Tabs Oral (given by mouth) every day. Comment: ORDERS Order Name Order Details documented [...] Dr. [address] [place] [address] Martell Calderon MD [address] [facility] [address] [place] [address] TREMORS/ MEDICARE, FOR LIFE 03/28/2024 8:30 AM EDT Office Visit Primary Care - [address] [phone] Cheo Santoyo DO [address] [place] [phone] AWV 04/06/2024 9:45 AM EST Lab [facility] - [facility] [place] [address] [facility] [address] [place] [phone] CBCMP,CEA,FEST 04/06/2024 10:15 AM EST Office Visit [facility] - [facility] [place] [address] [facility] [address] [place] [address] Georgi Butterfield MD [address] [place] [address] 6 MTH FU W/LABS, REV SCAN 04/13/2024 9:30 AM EST Office Visit Surgical Oncology - [facility] [place] [address] [facility] [address] [place] [phone] Delvis Cheek MD 125 [facility] 660 [place] [phone] 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 [address] [place] [phone] Karly Bautista, BURT [address] [place] [address] annual visit from date of surgery May/Jul 2024 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 documented as of this encounter Visit Diagnoses Not on filedocumented in this encounter
--- OUTSIDE RECORDS SUMMARY | 2024-01-11 22:19 | XMS_ITS | Continuity of Care Document ---
Author Organization [employer] Address [address] [place] [address] Phone Care Team Providers Care Geospatial Specialist Name Role Phone Olesya ESCOTO, Judi Unavailable Unavailable Allergies, Adverse Reactions, Alerts Substance Reaction Status Criticality morphine Active No Information Medications Medication Instructions Dosage Effective Dates (start - stop) Status Comments aspirin 81 mg tablet,delayed release take 1 tablet by oral route every day 81 MG - Active Zocor 20 mg tablet take 1 tablet by ora l route every day in the evening 20 MG - Active Norvasc 5 mg tablet take 1 tablet by ora l route every day 5 MG - Active Nexium 20 mg capsule,delayed release take 1 - 2 Capsule by oral route every day 20 MG - Active Glucophage 500 mg tablet take 1 Tablet by oral route 2 times every day with morning and evening meals 500 MG - Active Procedures Procedure Date OFFICE/OUTPATIENT VISIT, EST COMPLETE CBC W/AUTO DIFF WBC COMPREHEN METABOLIC PANEL C-REACTIVE PROTEIN RBC SED RATE, AUTOMATED RHEUMATOID FACTOR, QUANT ROUTINE VENIPUNCTURE CCP ANTIBODY ASSAY OF CK (CPK) ANTINUCLEAR ANTIBODIES ASSAY OF ALDOLASE COMPLEMENT, ANTIGEN COMPLEMENT, ANTIGEN URINE CULTURE/COLONY COUNT HEP B CORE ANTIBODY, TOTAL HEP B SURFACE ANTIBODY HEPATITIS B SURFACE AG, EIA HEPATITIS C AB TEST BODY FLUID CELL COUNT DRAIN/INJECT, JOINT/BURSA Marcaine Methylprednisolone 40 MG inj OFFICE CONSULTATION Advance Directives Directive Yes / No Effective Date File Name No Information Encounters Encounter Description Practice Location Reason(s) For Visit Diagnoses Date Provider Providers Copied on [facility]counter [facility], [address], [place], [address], tel:[phone] [place] No Information 2 Olesya Lau. [address], [place], [place], [id number], [place]. tel:[phone] OFFICE/OUTPAT IENT VISIT, EST [facility], [address], [place], [address], tel:[phone] [place] go over lab and x-rays (chief complaint) Effusion, right kneeCoughRai sed antibody titer Dec-0 3-201 5 Legerton David. [address], [place], [address], [place]. tel:[phone] , [address], [place], [place].Referring Provider: France Liu, [address] [place], [address]. tel:[phone] OFFICE CONSULTATION [facility], [address], [place], [address], [place] tel:[phone] [place] + HOLLIS (chief complaint) Other cervical disc degeneration , cervicothora cic regionPain in right shoulderCoug hRaised antibody titerPrimary OA of right kneeEffusion , right knee Nov-0 5-201 5 [place] David. [address], [facility] [place], [address], [place]. tel:[phone] Specialist: Dave Lynne, [address], [place], [place]. tel:[phone] ng Provider: France Liu, [address] [place], [address]. tel:[phone] Family History Family Member Type Diagnosis Age At Onset Mother Problem (finding) Systemic lupus erythema tosus Payers Payer name Insurance type Covered republican ID Authoriza tion(s) No Information Social History Type Description Quantity Date Captured Comments Sex Male Smoking Status No Information Chief Complaint And Reason For Visit No Information Reason For Referral Reason For Referral No Information History Of Present Illness Encounter Date Complaint History Of Prese nt Illness go over lab and x-rays + HOLLIS Functional Status Date Functional Assessmen t No Information Instructions Date Instruction Additional Infor mation No Information Assessments Type Assessment Date No Information Patient Care Teams Name Effective Dates (start - stop) Status Members No Information
--- OUTSIDE RECORDS SUMMARY | 2024-01-11 22:19 | XMS_ITS | Encounter Summary ---
Author Organization [facility] Alejandro [facility] Address [address] [place] [address] Care Team Providers Care Cushion Worker Name Role Phone Unavailable Primary Care Provider Unavailabl e Encounter Details Date Type Department Care Team (Late st Contact Info) Description 11/14/2019 8:43 AM EDT - 01/04/2020 11:59 PM EDT Hospital Encounter [facility] [address] [place], [place] [phone] Tammy Rodriguez PA Social History Tobacco Use [...] Dr. [address] [place] [address] Martell Calderon MD [address] [place] [address] TREMORS/ MEDICARE, FOR LIFE 03/28/2024 8:30 AM EDT Office Visit Primary Care - [facility] [address] [place] [phone] Cheo Santoyo DO [address] [place] [address] AWV 04/06/2024 9:45 AM EST Lab [facility] [address] [facility] [address] [place] [phone] CBCMP,CEA,FEST 04/06/2024 10:15 AM EST Office Visit [facility] - [facility] [address] [facility] [address] [place] [address] Georgi Butterfield MD [address] [place], [place] [phone] 6 MTH FU W/LABS, REV SCAN 04/13/2024 9:30 AM EST Office Visit Surgical Oncology - [facility] [address] [facility] [address] [place] [address] Delvis Cheek MD 125 [facility] [address] [place] [address] 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 documented as of this encounter Visit Diagnoses Not on filedocumented in this encounter
--- OUTSIDE RECORDS SUMMARY | 2024-01-11 22:19 | XMS_ITS | Encounter Summary ---
Author Organization [facility] Address [address] [place] [address] Care Team Providers Care Supervisor Asbestos Removal Name Role Phone Cheo Santoyo Primary Care Provider [phone] Encounter Details Date Type Department Care Team (Late st Contact Info) Description 01/22/2020 [facility] Historical Encounter [facility] HISTORICAL CONVERSIONS [address] [place], [place] [phone] Tammy Rodriguez PA Social History Tobacco Use [...] Neurology - [facility] [address] [facility] [address] [place] [address] Martell Calderon MD [address] [facility] [place] [address] [place], [place] [phone] TREMORS/ MEDICARE, FOR LIFE 03/28/2024 8:30 AM EDT Office Visit Primary Care - [address] [address] Cheo Santoyo, [address] [place] [phone] AWV 04/06/2024 9:45 AM EST Lab [facility] - [facility] [address] [facility] [address] [place] [address] CBCMP,CEA,FEST 04/06/2024 10:15 AM EST Office Visit [facility] - [facility] [address] [facility] [address] [place] [address] Georgi Butterfield MD [address] [place] [address] 6 MTH FU W/LABS, REV SCAN 04/13/2024 9:30 AM EST Office Visit Surgical Oncology - [facility] [address] [facility] [address] [place] [address] Delvis Cheek MD 125 [facility] [address] [place] [address] 1 YEAR F/U ADENOCARCINOMA OF THE CECUM 06/19/2024 10:30 AM EST Office Visit Orthopaedics- Les Valencia [address] [facility] [address] [place] [address] Karly Bautista PA 180 [facility] [address] [place] [address] annual visit from date of surgery May/Jul 2024 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 documented as of this encounter Visit Diagnoses Not on filedocumented in this encounter Care Teams Supervisor Asbestos Removal Relationship Specialty Start Date End Date Cheo Santoyo DO [address] [place] [phone] PCP - General Family Medicine 07/06/23 documented as of this encounter
--- OUTSIDE RECORDS SUMMARY | 2024-01-11 22:19 | XMS_ITS | Data Portability ---
Author Organization [place] [facility], [facility] - Address [address] [place] [address] Care Team Providers Care Card Seller Name Role Phone DARRIAN NADIA Primary Care Provider [phone] MALENA NORIEGA OTHER Assessment No assessment recorded. Plan of Treatment Reminders Order Date Submit Date Provider Last Modified By Organization Details Last Modified Time Details Appointments None recorded. Lab None recorded. Referral None recorded. Procedures None recorded. Surgeries None recorded. Imaging electrocard iogram 2020 021 [email or web address] Main Office, [address] [place] [address], [place], [address], 09:50:28 US, echocardiog ester, transthorac ic, complete, w/ color flow 2020 021 [email or web address] Not available 11:18:57 Medication Orders None recorded. Patient TargetsNo targets recorded. Patient InstructionsNo instructions recorded. Reason for Referral None Reported. Results Created Date Observation Date Name Description Value Unit Range Abnormal Flag LastModifiedBy Organization Detail LastModifiedTime 06/25/19 21 06/25/2020 elect annette pantojagr am No observ ation record ed. [email or web address] Main Office [address] [place] [address], [place], [address], 06/25/2020 12:42:56 08/31/19 21 08/30/2020 US, echoc ardio gram No observ ation record ed. [email or web address] Main Office [address] [place] [address], [place], [address], 09/03/2020 13:46:40 Result Notes None recorded. Problems Name Status Onset Date Resolution Date Notes Provider Name and Address Organization Details Recorded Time Dyslipidemia Active ELVER madrigal [facility] 1 12:49:19 Dyspnea on exertion Active May 2019 Echo EF 40 to 45% paradoxical motion. LBBB. inferior wall hypokinetic. Nuclear stress test May 2019 No inducible ischemia. GI artifact or small scar. EF 55%. ECHO 08/18 EF 45-50% Valery Mccarthy PA-C [address] [place] [address], [place], [address] , [facility] 1 16:09:35 Type 2 diabetes mellitus Active Martínez Beach MD [address] [place] [address], [place], [address] , [facility] 1 08:54:52 Hypertensive disorder Active Martínez Beach MD [address] [place] [address], [place], [address] , [facility] 1 08:55:23 Left bundle branch block Active Martínez Baech MD [address] [place] [address], [place], [address] , [facility] 1 09:18:35 Notes:quit tob 20 years ago. Problem Notes None recorded. Procedures Surgical History Date Name Laterality Status Provider Name and Address Organization Details Recorded Time procedure on shoulder completed MYAH Rodrigues - [facility] 06/21/2020 12:52:21 Back Surgery completed ELVER madrigal [facility] 06/21/2020 12:53:01 Knee arthroscopy/pepe cathy completed ELVER madrigal [facility] 06/21/2020 12:54:22 Imaging Results Imaging Date Name Status LastModified by Organization Details LastModified Time 06/25/2020 electrocardiogram completed [email or web address] Main Of fice [address] [place] [address], [place], [address], 06/25/2020 12:42:56 08/30/2020 US, echocardiogram completed [email or web address] Main O ffice [address] [place] [address], [place], [address], 09/03/2020 13:46:40 Procedure Notes None recorded. Medical Equipment None Reported. Allergies Allergen ID Allergen Name Allergen Category Reaction Reaction Severity Criticality Documentation Date Start Date Code Code System Note Provider Name and Address Organization Details Recorded Time 00550 morphine medicatio n Not available Not available Not available 06/25/2020 7052 RxNorm HOPE madrigal, [place] - [facility] 08:28:12 Medications Name Sig Start Date Stop Date Status Note LastModified by Organization Details LastModified Time cyclobenzap rine 10 mg tablet Take 1 tablet 3 times a day by oral route as needed. active Not Available Not Available No t Available Protonix 40 mg tablet,mekhi yed release Take 1 tablet every day by oral route. active Not Available Not Available No t Available Pyridium 100 mg tablet Take 2 tablets 3 times a day by oral route. 06/25 completed Not Available Not Available Not Available aspirin 81 mg tablet,mekhi yed release Take 1 tablet every day by oral route. active Not Available Not Available No t Available Macrobid 100 mg capsule Take 1 capsule every day by oral route. 06/25 completed Not Available Not Available Not Available Lipitor 40 mg tablet Take 1 tablet every day by oral route. active Not Available Not Available No t Available metformin 1,000 mg tablet Take 1 tablet twice a day by oral route. active Not Available Not Available No t Available Benicar 20 mg tablet Take 1 tablet every day by oral route. active Not Available Not Available No t Available Jardiance 25 mg tablet Take 1 tablet every day by oral route. active Not Available Not Available No t Available Trulicity 0.75 mg/0.5 mL subcutaneou s pen injector Inject by subcutane ous route. active Not Available Not Available No t Available Vitals Date Recorded Body weight Body height Body mass index (BMI) Heart rate Systolic blood pressure Diastolic blood pressure Provider Name and Address Organization Details Last Updated DateTime 1 41165.7 7 g 175.26 cm 31.6 kg/m2 82 /min 124 mm[Hg] 70 mm[Hg] HOPE Novak [facility] 08:33:33 Social History Question Answer Notes LastModified by Organizat ion Details LastModified Time Tobacco Smoking Status Former Smoker ELVER NAVARRETE kaitlin, [place] - [facility] 06/21/2020 12:55:46 Do You Have An Advance Directive? Yes [email or web address] Information not available 06/25/2020 What Is Your Level Of Alcohol Consumption? Occasional [email or web address] Information not available 06/21/2020 How Many Years Have You Consumed Alcohol? 40 [email or web address] Information not available 06/25/2020 What Is Your Level Of Caffeine Consumption? Moderate [email or web address] Information not available 06/25/2020 How Much Tobacco Do You Chew? None [email or web address] Information not available 06/25/2020 Which Illicit Or Recreational Drugs Have You Used? None [email or web address] Information not available 06/25/2020 Do You Or Have You Ever Used E-cigarettes Or Vape? Never Used Electronic Cigarettes [email or web address] Information not available 06/25/2020 Marital Status [email or web address] Informa tion not available 06/25/2020 Do You Or Have You Ever Used Smokeless Tobacco? Never Used Smokeless Tobacco [email or web address] Information not available 06/25/2020 How Much Tobacco Do You Smoke? 2 PPD [email or web address] Information not available 06/25/2020 How Many Years Have You Smoked Tobacco? 27 Quit 23 Years Ago [email or web address] Information not available 06/25/2020 Sex: Unknown Functional Status None recorded. Mental Status None recorded. Family History Relationship Description Onset Age of this Age Resolved Age Notes Mother Family history of stroke Medical History Condition Response Diabetes Y Cancer Y GERD/Reflux Y Hypertension Y Past Encounters Encounter ID Performer Location Encounter Start Date Encounter Closed Date Diagnosis/Indication Diagnosis SNOMED-CT Code [id number] Martínez Beach MD Main Office [address] [place] [address] 06/25/2020 08:00:31 06/25/2020 09:50:28 Hypertensive disorder 63934445 Dyslipidemia 816468604 Preoperati ve cardiovascular examination 924698052 Left bundl e branch block 68467793 Health Concerns Section Related Observation LastModified by Organization Detai ls LastModified Time None Recorded Concern Status LastModified by Organization Details LastModified Time None Recorded Advance Directives Directive Y: Payers Encounter Date Sequence Insurance Name Policy Number Policy Sparks Covered Member ID Sparks Member ID Guarantor Name 06/25/2020 1 MEDICARE [place]: ABDELRAHMAN VELIZ Martínez Kemp Catarino [id number] Martínez Toribio 06/25/2020 2 [facility] () Martínez Toribio [id number] Martínez Toribio Notes Date Note Type Note Provider Name and Address Organization Details Recorded Time 06/25/2020 text/html HPI Notes: No prior known CAD. No heart cath. 2 stress performed. 10 years ago and last one in 2019. multiple surgeries without anesthesia issues. Denies chf or arrhythmia. Chronic LBBB. old per patient. Patient here for right hemicolectomy. 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 colonoscopy 3 years ago. Just had a colonoscopy. Denies chest pain or tightness. Denies shortness of breath. Denies changes to his activity level. No acute complaints today. Martínez Beach MD [address] [place] [address] [facility] [address], [place], [address], [place] - [facility] 06/25/2020 09:22:27
--- OUTSIDE RECORDS SUMMARY | 2024-01-11 22:19 | XMS_ITS | Encounter Summary ---
Author Organization Jose Alejandro Kit [facility] Address [address] [place] [address] Care Team Providers Care Concrete Pointer Name Role Phone Unavailable Primary Care Provider Unavailabl e Encounter Details Date Type Department Care Team (Late st Contact Info) Description 05/20/2015 12:01 AM EST - 05/20/2015 11:59 PM EST Hospital Encounter [facility]OR[facility] CONVERSIONS [address] [place] [address] Dave Lynne Jr., MD [address] [place] [address] Social History Tobacco Use Types Packs/Day Years [...] Dr. [address] [place] [address] Martell Calderon MD [address] [place] [address] TREMORS/ MEDICARE, FOR LIFE 03/28/2024 8:30 AM EDT Office Visit Primary Care - [facility] [address] [place] [address] Cheo Santoyo, DO [address] [place] [address] AWV 04/06/2024 9:45 AM EST Lab [facility] - [facility] [address] [facility] [address] [place] [address] CBCMP,CEA,FEST 04/06/2024 10:15 AM EST Office Visit [facility] - [facility] [address] [facility] [address] [place] [address] Georgi Butterfield MD [address] [facility] [address] [place] [address] 6 MTH FU W/LABS, REV SCAN 04/13/2024 9:30 AM EST Office Visit Surgical Oncology - [facility] [address] [facility] [address] [place] [address] Delvis Cheek MD 125 [facility] 660 [place] [address] 1 YEAR F/U ADENOCARCINOMA OF THE CECUM 06/19/2024 10:30 AM EST Office Visit Orthopaedics- Les Valencia [address] [facility] [address] [place] [address] Karly Bautista PA [address] [place] [address] annual visit from date of surgery May/Jul 2024 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 documented as of this encounter Visit Diagnoses Not on filedocumented in this encounter
--- OUTSIDE RECORDS SUMMARY | 2024-01-11 22:19 | XMS_ITS | Encounter Summary ---
Author Organization [facility] Address [address] [place] [address] Care Team Providers Care Real Estate Agency Licensee Name Role Phone Unavailable Primary Care Provider Unavailabl e Encounter Details Date Type Department Care Team (Late st Contact Info) Description 03/07/2021 Lab Requisition [facility] Pathology & Laboratory Medicine - [facility] [address] [place] [address] Outr Resulting Lab, Provider Social History Tobacco [...] Priority Date/Time Associated Diagnosis Comments CEA Routine 03/07/2021 12:50 EDT documented in this encounter Results * CEA (03/07/2021 12:50 EDT) CEA 2.1 See Note ng/mL 03/07/2021 22:18 EDT [facility] Comment: % Distribution of [...] used interchangeably. Blood VENOUS BLOOD / Unknown 03/07/2021 12:50 EDT 03/07/2021 21:21 EDT Provider Outr Resulting Lab CHEMISTRY & BLOOD GAS ORDERABLES [facility] [address] [place] [address] documented in this encounter Visit Diagnoses Not on filedocumented in this encounter
--- OUTSIDE RECORDS SUMMARY | 2024-01-11 22:19 | XMS_ITS | Encounter Summary ---
Author Organization Jose Alejandro Kit [facility] Address [address] [place] [address] Care Team Providers Care Nuclear Equipment Research Engineer Name Role Phone Unavailable Primary Care Provider Unavailabl e Encounter Details Date Type Department Care Team (Late st Contact Info) Description 04/24/2015 10:06 AM EST - 04/24/2015 11:59 PM EST Hospital Encounter [facility] HISTORICAL CONVERSIONS [address] [place] [address] Dave Lynne Jr., MD [address] [place] [address] Social History Tobacco Use Types Packs/Day Years [...] Dr. [address] [place] [phone] Martell Calderon MD [address] [place] [address] TREMORS/ MEDICARE, FOR LIFE 03/28/2024 8:30 AM EDT Office Visit Primary Care - [facility] [address] [place] [address] Cheo Santoyo, DO [address] [place] [address] AWV 04/06/2024 9:45 AM EST Lab [facility] - [facility] [address] [facility] [address] [place] [address] CBCMP,CEA,FEST 04/06/2024 10:15 AM EST Office Visit [facility] - [facility] [address] [facility] [address] [place] [address] Georgi Butterfield MD 35[address] [facility] [address] [place] [address] 6 MTH FU W/LABS, REV SCAN 04/13/2024 9:30 AM EST Office Visit Surgical Oncology - [facility] [address] [facility] [address] [place] [address] Delvis Cheek MD 125 [facility] [address] [place] [address] 1 YEAR F/U ADENOCARCINOMA OF THE CECUM 06/19/2024 10:30 AM EST Office Visit Orthopaedics- Les Valencia [address] [facility] [address] [place] [address] Karly Bautitsa PA [address] [place] [phone] annual visit from date of surgery May/Jul 2024 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 documented as of this encounter Visit Diagnoses Not on filedocumented in this encounter
--- OUTSIDE RECORDS SUMMARY | 2024-01-11 22:19 | XMS_ITS | Encounter Summary ---
Author Organization Jose Alejandro Pantoja [facility] Address [address] [place] [address] Care Team Providers Care Psychiatric Social Worker Supervisor Name Role Phone Carter Snatoyoony Moshe REYES Primary Care Provider [phone] Encounter Details Date Type Department Care Team (Late st Contact Info) Description 06/14/2020 [facility] Historical Encounter [facility] AMB HISTORICAL Georgi Butterfield MD [address] [place] [address] Social History Tobacco Use Types Packs/Day Years [...] - [facility] [address] [facility] [place] [address] [place] [address] Martell Calderon MD 214 [facility] [address] [place] [address] TREMORS/ MEDICARE, FOR LIFE 03/28/2024 8:30 AM EDT Office Visit Primary Care - [address] [address] [place] [address] [place] [address] AWV 04/06/2024 9:45 AM EST Lab [place] [facility] - [facility] [place] [address] [facility] [address] [place] [address] CBCMP,CEA,FEST 04/06/2024 10:15 AM EST Office Visit [place] [facility] - [facility] [place] [address] [facility] [address] [place] [address] Georgi Butterfield MD [address] [place] [address] 6 MTH FU W/LABS, REV SCAN 04/13/2024 9:30 AM EST Office Visit Surgical Oncology - [facility] [address] [facility] [address] [place] [address] Delvis Cheek MD 125 [facility] 660 [place] [address] 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 [address] [place] [address] Karly Bautista, BURT 180 [facility] [address] [place] [address] annual visit from date of surgery May/Jul 2024 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 documented as of this encounter Visit Diagnoses Not on filedocumented in this encounter Care Teams Psychiatric Social Worker Supervisor Relationship Specialty Start Date End Date Cheo Santoyo DO [address] [place] [phone] PCP - General Family Medicine 07/06/23 documented as of this encounter
--- OUTSIDE RECORDS SUMMARY | 2024-01-11 22:19 | XMS_ITS | Encounter Summary ---
Author Organization Jose Alejandro [facility] Address [address] [place] [address] Care Team Providers Care Foundation Coordinator Name Role Phone Unavailable Primary Care Provider Unavailabl e Encounter Details Date Type Department Care Team (Late st Contact Info) Description 03/13/2014 8:45 AM EDT - 03/13/2014 11:59 PM EDT Hospital Encounter RS HISTORICAL CONVERSIONS [address] [place], [place] [id number] Stephen Fraser MD [address] [place], [place] [phone] Social History Tobacco Use Types Packs/Day Years [...] Dr. [address] [place] [phone] Martell Calderon MD [address] [place] [address] TREMORS/ MEDICARE, FOR LIFE 03/28/2024 8:30 AM EDT Office Visit Primary Care - [facility] 1112 [place] [address] Cheo Santoyo, [address] [place] [address] AWV 04/06/2024 9:45 AM EST Lab [place] [facility] - [facility] [address] [facility] [address] [place] [address] CBCMP,CEA,FEST 04/06/2024 10:15 AM EST Office Visit [place] [facility] - [facility] [address] [facility] [address] [place] [address] Georgi Butterfield MD 3510 [facility] [address] [place] [address] 6 MTH FU W/LABS, REV SCAN 04/13/2024 9:30 AM EST Office Visit Surgical Oncology - [facility] [address] [facility] [address] [place] [address] Delvis Cheek MD 125 [facility] 660 [place] [address] 1 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 documented as of this encounter Visit Diagnoses Not on filedocumented in this encounter
--- OUTSIDE RECORDS SUMMARY | 2024-01-11 22:19 | XMS_ITS | Encounter Summary ---
Author Organization Jose Alejandro Pantoja [facility] Address [address] [email or web address] [address] Care Team Providers Care Research Worker Encyclopedia Name Role Phone YarelisCheo friend Moshe REYES Primary Care Provider [phone] Encounter Details Date Type Department Care Team (Late st Contact Info) Description 06/14/2020 Legacy Historical Encounter [facility] [place] [address] [facility] [address] [place] [address] Martell Calderon MD 2144 [facility] [address] [place] [address] TREMORS/ MEDICARE, FOR LIFE 03/28/2024 8:30 AM EDT Office Visit Primary Care - [address] [phone] Cheo Santoyo, [address] [address] AWV 04/06/2024 9:45 AM EST Lab [place] [facility] - [facility] [place] [address] [facility] [address] [place] [address] CBCMP,CEA,FEST 04/06/2024 10:15 AM EST Office Visit [place] [facility] - [facility] [place] 20[address] [facility] [address] [place] [address] Georgi Butterfield MD [address] [place] [address] 6 MTH FU W/LABS, REV SCAN 04/13/2024 9:30 AM EST Office Visit Surgical Oncology - [facility] [place] [address] [facility] [address] [place] [address] Delvis Cheek MD 125 [facility] 660 [place] [address] 1 YEAR F/U ADENOCARCINOMA OF THE CECUM 06/19/2024 10:30 AM EST Office Visit Orthopaedics- Les Valencia 615 [facility] [address] [place] [address] Karly Bautista, BURT 180 [facility] 301 [place] [address] annual visit from date of surgery May/Jul 2024 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 documented as of this encounter Visit Diagnoses Not on filedocumented in this encounter Care Teams Research Worker Encyclopedia Relationship Specialty Start Date End Date Cheo Santoyo DO [address] [place] [phone] PCP - General Family Medicine 07/06/23 documented as of this encounter
--- OUTSIDE RECORDS SUMMARY | 2024-01-11 22:19 | XMS_ITS | Encounter Summary ---
Author Organization Jose Alejandro liriano [facility] Address [address] [email or web address] [address] Care Team Providers Care Hedis Review Nurse Name Role Phone Cheo Santoyo Primary Care Provider [phone] Encounter Details Date Type Department Care Team (Late st Contact Info) Description 11/06/2019 Legacy Historical Encounter RS HISTORICAL CONVERSIONS [address] [place], [place] [phone] Tammy Rodriguez PA Social History Tobacco Use [...] [facility] [address] [facility] [address] [place] [address] Martell Calderon MD 2144 [facility] [address] [place], [place] [address] TREMORS/ MEDICARE, FOR LIFE 03/28/2024 8:30 AM EDT Office Visit Primary Care - [address] [address] Cheo Santoyo, [address] [place] [address] AWV 04/06/2024 9:45 AM EST Lab [place] [facility] - [facility] [address] [facility] [address] [place] [address] CBCMP,CEA,FEST 04/06/2024 10:15 AM EST Office Visit [place] [facility] - [facility] [address] [facility] [address] [place] [address] Georgi Butterfield MD [address] [place] [address] 6 MTH FU W/LABS, REV SCAN 04/13/2024 9:30 AM EST Office Visit Surgical Oncology - [facility] [address] [facility] [address] [place] [address] Delvis Cheek MD 125 [facility] 660 [place] [address] 1 YEAR F/U ADENOCARCINOMA OF THE CECUM 06/19/2024 10:30 AM EST Office Visit Orthopaedics- Les Valencia 615 [facility] [address] [place] [address] Karly Bautista PA 180 [facility] 301 [place] [address] annual visit from date of surgery May/Jul 2024 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 documented as of this encounter Visit Diagnoses Not on filedocumented in this encounter Care Teams Hedis Review Nurse Relationship Specialty Start Date End Date Cheo Santoyo DO [address] [place] [phone] PCP - General Family Medicine 07/06/23 documented as of this encounter
--- OUTSIDE RECORDS SUMMARY | 2024-01-11 22:19 | XMS_ITS | Encounter Summary ---
Author Organization [facility] Address [address] [place] [address] Care Team Providers Care Upper Stitcher Name Role Phone Unavailable Primary Care Provider Unavailabl e Encounter Details Date Type Department Care Team (Late st Contact Info) Description 01/11/2024 Lab Requisition [facility] Pathology & Laboratory Medicine - [facility] [address] [place] [address] Outr Resulting Lab, Provider Social History Tobacco Use Types Packs/Day Years Used Date Smoking Tobacco: Never Assessed Sex and Gender Information Value Date Recorded Sex Assigned at Not on file Gender Identity Not on file Sexual Orientation Not on file documented as of this encounter Plan of Treatment Scheduled Orders Name Type Priority Associated Diagnoses Orde r Schedule FECAL BACTERIAL PATHOGENS BY PCR Microbiology Routine Ordered: 2023 documented as of this encounter Visit Diagnoses Not on filedocumented in this encounter
--- OUTSIDE RECORDS SUMMARY | 2024-01-11 22:19 | XMS_ITS | Encounter Summary ---
Author Organization Jose Alejandro Pantoja [facility] Address [address] [place] [address] Care Team Providers Care Primary Care Nurse Practitioner Name Role Phone Carter Santoyoony Moshe REYES Primary Care Provider [phone] Encounter Details Date Type Department Care Team (Late st Contact Info) Description 06/13/2020 Legacy Historical Encounter [facility] HISTORICAL Georgi Butterfield MD [address] [place] [address] Social History Tobacco Use Types Packs/Day Years [...] 9:00 AM EDT [facility] 2144 [facility] [address] [place] [address] Martell Calderon MD 214 [facility] [address] [place] [address] TREMORS/ MEDICARE, FOR LIFE 03/28/2024 8:30 AM EDT Office Visit Primary Care - [address] [address] [place] [address] [place] [phone] AWV 04/06/2024 9:45 AM EST Lab [place] [facility] [address] [facility] [address] [place] [address] CBCMP,CEA,FEST 04/06/2024 10:15 AM EST Office Visit [place] [facility] [address] 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 documented as of this encounter Visit Diagnoses Not on filedocumented in this encounter Care Teams Primary Care Nurse Practitioner Relationship Specialty Start Date End Date Cheo Santoyo DO [address] [place] [phone] PCP - General Family Medicine 07/06/23 documented as of this encounter
--- OUTSIDE RECORDS SUMMARY | 2024-01-11 22:19 | XMS_ITS | Encounter Summary ---
Author Organization Jose Alejandro [facility] Address [address] [place] [address] Care Team Providers Care Football Pad Repairer Name Role Phone Unavailable Primary Care Provider Unavailabl e Encounter Details Date Type Department Care Team (Late st Contact Info) Description 06/13/2020 4:20 PM EST - 06/13/2020 11:59 PM EST Hospital Encounter RS HISTORICAL CONVERSIONS [address] [place] [address] Delvis Cheek MD [address] [address] Social History Tobacco Use Types [...] Dr. [address] [place] [phone] Martell Calderon MD 2144 [facility] [address] [place] [address] TREMORS/ MEDICARE, FOR LIFE 03/28/2024 8:30 AM EDT Office Visit Primary Care - [address] [address] Cheo Santoyo DO 1112 [place] [address] AWV 04/06/2024 9:45 AM EST Lab [place] [facility] - [facility] 2084 [facility] [address] [place] [address] CBCMP,CEA,FEST 04/06/2024 10:15 AM EST Office Visit [place] [facility] - [facility] 2084 [facility] [address] [place] [address] Georgi Butterfield MD [address] [place] [address] 6 MTH FU W/LABS, REV SCAN 04/13/2024 9:30 AM EST Office Visit Surgical Oncology - [facility] 20[address] [facility] [address] [place] [address] Delvis Cheek MD 125 [facility] [address] [place] [address] 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 documented as of this encounter Procedures Procedure Name Priority Date/Time Associated Diagnosis Comments PTT Routine 06/13/2020 4:31 PM EST IRON AND TIBC Routine 06/13/2020 4:31 PM EST PROTIME-INR Routine 06/13/2020 4:31 PM EST CBC Routine 06/13/2020 4:31 PM EST CEA Routine 06/13/2020 4:31 PM EST COMPREHENSIVE METABOLIC PANEL Routine 06/13/2020 4:31 PM EST documented in this encounter Results * (ABNORMAL) Protime-INR (06/13/2020 4:31 PM EST) Protime 12.8 11.6 - 14.5 seconds RS CERNER CONVERSION Comment: Interpretive Data: Charles Castro methodology - effective 02/16/17 Performing Lab: ??SF Stago Expert INR 0.9(L) 1.5 - 3.5 [facility] CERNE R CONVERSION Comment: Interpretive Data: The INR therapeutic range (1.5-3.5) for patients on warfarin therapy will depend on the clinical disorder being treated. Performing Lab: ??SF Stago Expert 06/13/2020 4:31 PM EST 06/13/2020 4:57 PM EST Comment:Blood Delvis Davis MD HEMATOLOGY ORDERABLES RS CERNER CONVERSION * APTT (06/13/2020 4:31 PM EST) APTT 30.0 23.3 - 34.5 seconds RS CERNER CONVERSION Comment: Interpretive Data: PTT INTERPRETATION: Charles Castro methodology - Effective 02/16/17 With specimens from patients on heparin therapy, the suggested therapeutic range may vary from 68.0 - 106.0 seconds. Performing Lab: ??SABAS Stago Expert 06/13/2020 4:31 PM EST 06/13/2020 4:57 PM EST Comment:Blood Delvis Davis MD HEMATOLOGY ORDERABLES [facility] CERNER CONVERSION * (ABNORMAL) CBC (06/13/2020 4:31 PM EST) WBC 8.6 3.8 - 10.6 x10e3/mcL [facility] CERNER CONVERSION Comment:Performing Lab: SF W AM RBC 4.92 4.00 - 5.60 x10e6/mcL [facility] CERNER CONVERSION Comment:Performing Lab: SF W AM Hemoglobin 15.0 13.0 - 17.3 g/dL [facility] CERNER CONVERSION Comment:Performing Lab: SF W AM Hematocrit 47.3 38.0 - 52.0 % [facility] CERNER CONVERSION Comment:Performing Lab: SF W AM MCV 96.1 84.0 - 100.0 fL [facility] CERNER CONVERSION Comment:Performing Lab: SF W AM MCH 30.5 27.0 - 34.5 pg [facility] CERNER CONVERSION Comment:Performing Lab: SF W AM MCHC 31.7(L) 32.0 - 36.0 g/dL [facility] CERNER CONVERSION Comment:Performing Lab: SF W AM RDW 13.2 11.0 - 16.0 % [facility] CERNER CONVERSION Comment:Performing Lab: SF W AM Platelets 263 140 - 440 x10e3/mcL [facility] CERNER CONVERSION Comment:Performing Lab: SF W AM MPV 9.9 7.2 - 13.2 fL [facility] CERNER CONVERSION Comment:Performing Lab: SF W AM NRBC Automated 0.0 0.0 - 0.2 % [facility] CERNER CONVERSION Comment:Performing Lab: SF W AM NRBC Absolute 0.000 0.000 - 0.012 x10e3/mcL [facility] CERNER CONVERSION Comment:Performing Lab: SF W AM 06/13/2020 4:31 PM EST 06/13/2020 4:57 PM EST Comment:Blood Delvis Davis MD HEMATOLOGY ORDERABLES [facility] CERNER CONVERSION * (ABNORMAL) Comprehensive Metabolic Panel (06/13/2020 4:31 PM EST) Sodium 141 135 - 145 mmol/L [facility] CERNER CONVERSION Comment:Performing Lab: SF C marybeth 6000 Pending Potassium 4.9 3.5 - 5.3 mmol/L [facility] CERNER CONVERSION Comment:Performing Lab: SF C marybeth 6000 Pending Chloride 102 98 - 107 mmol/L [facility] CERNER CONVERSION Comment:Performing Lab: SF C marybeth 6000 Pending CO2 29 22 - 29 mmol/L [facility] CERNER CONVERSION Comment:Performing Lab: SF C marybeth 6000 Pending Glucose 97 70 - 99 mg/dL [facility] CERNER CONVERSION Comment:Performing Lab: SF C marybeth 6000 Pending BUN 21 8 - 23 mg/dL [facility] CERNER CONVERSION Comment:Performing Lab: SF C marybeth 6000 Pending Creatinine 1.3 0.7 - 1.3 mg/dL [facility] CERNER CONVERSION Comment:Performing Lab: SF C marybeth 6000 Pending Anion Gap 10 2 - 17 mmol/L [facility] CERNER CONVERSION Comment:Performing Lab: SF C marybeth 6000 Pending Osmolaliy Calculated 284 270 - 287 mOsm/kg [facility] CERNER CONVERSION Comment:Performing Lab: SF C marybeth 6000 Pending Calcium 10.0 8.8 - 10.2 mg/dL [facility] CERNER CONVERSION Comment:Performing Lab: SF C marybeth 6000 Pending Total Protein 6.6 6.4 - 8.3 g/dL [facility] CERNER CONVERSION Comment:Performing Lab: SF C marybeth 6000 Pending Albumin 4.5 3.5 - 5.2 g/dL [facility] CERNER CONVERSION Comment:Performing Lab: SF C marybeth 6000 Pending Globulin 2.1 1.9 - 4.4 g/dL [facility] CERNER CONVERSION Comment:Performing Lab: SF C marybeth 6000 Pending Albumin/Globulin Ratio 2.14(H) 1.00 - 2.00 mmol/L [facility] CERNER CONVERSION Comment:Performing Lab: SF C marybeth 6000 Pending Total Bilirubin 0.60 0.00 - 1.20 mg/dL [facility] CERNER CONVERSION Comment:Performing Lab: SF C marybeth 6000 Pending Alk Phosphatase 74 40 - 130 unit/L [facility] CERNER CONVERSION Comment:Performing Lab: SF C marybeth 6000 Pending AST 20 0 - 40 unit/L [facility] CERNER CONVERSION Comment:Performing Lab: SF C marybeth 6000 Pending ALT 22 0 - 41 unit/L [facility] CERNER CONVERSION Comment:Performing Lab: SF C marybeth 6000 Pending GFR 67(L) >=90 mL/min/1.7 3m^2 [facility] CERNER CONVERSION Comment: VERIFIED by Discern Expert. Performing Lab: ??SF Harry 6000 Pending GFR Non- 58(L) >=90 mL/min/1.7 3m^2 [facility] CERNER CONVERSION Comment: [...] for estimating GFR in adults. Performing Lab: ??SF Harry 6000 Pending 06/13/2020 4:31 PM EST 06/14/2020 3:37 AM EST Comment:Blood Delvis Davis MD CHEMISTRY O RDERABLES [facility] CERNER CONVERSION * (ABNORMAL) Iron and TIBC (06/13/2020 4:31 PM EST) Iron 60 59 - 158 mcg/dL [facility] CERNER CONVERSION Comment:Performing Lab: RH C marybeth 6000 Pending UIBC 273.0 112.0 - 347.0 mcg/dL [facility] CERNER CONVERSION Comment:Performing Lab: RH C marybeth 6000 Pending TIBC 333 250 - 450 mcg/dL [facility] CERNER CONVERSION Comment:Performing Lab: RH C marybeth 6000 Pending Iron % Saturation 18(L) 20 - 40 % [facility] CERNER CONVERSION Comment:Performing Lab: RH C marybeth 6000 Pending 06/13/2020 4:31 PM EST 06/14/2020 3:37 AM EST Comment:Blood Delvis Davis MD CHEMISTRY O RDERASANCHEZ Performing Organization Address [facility]/State/ZIP Co de Phone Number [facility] CONVERSION * CEA (06/13/2020 4:31 PM EST) CEA 1.8 0.0 - 5.2 ng/mL RS CERNER CONVERSION Comment: Interpretive Data: CEA INTERPRETATION: Range ?Interpretation 0.0 - 3.0 ng/mL ?Non-Smoker Normal 0.0 - 5.2 ng/mL ?Smoker Normal > 5.2 ng/mL ?Excess CEA CEA values > 5.2 ng/mL are increasingly suggestive of malignancy.The results should be considered as a diagnostic adjunct to other clinical and/or Laboratory findings. CEA determinations should not be used as a screening test. Digestive tract disease, cirrhosis, smoking, and alcohol abuse are sometimes associated with increased CEA. Effective 03/29/2016 - CEA measured by Ja Harry electrochemiluminescence immunoassay ECLIA methodology. CEA values determined on patient samples by different testing procedures cannot be directly compared with one another and could be the cause of erroneous medical interpretations. Performing Lab: ??RH Harry [address]000 Pending 06/13/2020 4:31 PM EST 06/14/2020 9:20 AM EST Comment:Blood Delvis Davis MD CHEMISTRY O RDERABLES [facility] CERNER CONVERSION documented in this encounter Visit Diagnoses Not on filedocumented in this encounter
--- OUTSIDE RECORDS SUMMARY | 2024-01-11 22:19 | XMS_ITS | Encounter Summary ---
Author Organization Jose Alejandro Pantoja [facility] Address [address] [place] [address] Care Team Providers Care Loader Operator Supervisor Name Role Phone Cheo Santoyo Primary Care Provider Encounter Details Date Type Department Care Team (Late st Contact Info) Description 06/13/2020 Legacy Historical Encounter [facility] HISTORICAL CONVERSIONS [address] [place] [address] Delvis Cheek MD [address] [address] Social History Tobacco Use Types [...] Office Visit Neurology - [facility] [address] [facility] [address] [place] [address] Martell Calderon MD 214 [facility] [address] [place] [address] TREMORS/ MEDICARE, FOR LIFE 03/28/2024 8:30 AM EDT Office Visit Primary Care - [address] [address] [place] [address] [place] [address] AWV 04/06/2024 9:45 AM EST Lab [place] [facility] - [facility] 2084 [facility] [address] [place] [address] CBCMP,CEA,FEST 04/06/2024 10:15 AM EST Office Visit [place] [facility] - [facility] 2084 [facility] [address] [place] [address] Georgi Butterfield MD 3510 [facility] [address] [place] [address] 6 MTH FU W/LABS, REV SCAN 04/13/2024 9:30 AM EST Office Visit Surgical Oncology - [facility] [address] [facility] [address] [place] [address] Delvis Cheek MD 125 [facility] 660 [place] [address] 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 documented as of this encounter Visit Diagnoses Not on filedocumented in this encounter Care Teams Loader Operator Supervisor Relationship Specialty Start Date End Date Cheo Santoyo DO [address] [place] [phone] PCP - General Family Medicine 07/06/23 documented as of this encounter
--- OUTSIDE RECORDS SUMMARY | 2024-01-11 22:19 | XMS_ITS | Encounter Summary ---
Author Organization [facility] Address [address] [place] [address] Care Team Providers Care Precipitator Operator Name Role Phone Unavailable Primary Care Provider Unavailabl e Encounter Details Date Type Department Care Team (Late st Contact Info) Description 07/12/2020 12:52 PM EST - 07/12/2020 11:59 PM EST Hospital Encounter [facility] HISTORICAL CONVERSIONS [address] [place] [address] Delvis Cheek MD [address] [address] Social History Tobacco Use Types [...] Dr. [address] [place] [phone] Martell Calderon MD 2144 [facility] [address] [place] [address] TREMORS/ MEDICARE, FOR LIFE 03/28/2024 8:30 AM EDT Office Visit Primary Care - [address] [address] Cheo Santoyo DO [address] [place] [address] AWV 04/06/2024 9:45 AM EST Lab [place] [facility] - [facility] [address] [facility] [place] [address] [place] [address] CBCMP,CEA,FEST 04/06/2024 10:15 AM EST Office Visit [place] [facility] - [facility] [address] [facility] [place] [address] [place] [address] Georgi Butterfield MD [address] [place] [address] 6 MTH FU W/LABS, REV SCAN 04/13/2024 9:30 AM EST Office Visit Surgical Oncology - [facility] [address] [facility] [place] [address] [place] [address] Delvis Cheek MD 125 [facility] [address] [place] [address] 1 YEAR F/U [facility] 06/19/2024 10:30 AM EST Office Visit Orthopaedics- Les Valencia [address] [facility] [address] [place] [address] Karly Bautista, BURT [address] [place] [address] annual visit from date of surgery May/Jul 2024 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 documented as of this encounter Procedures Procedure Name Priority Date/Time Associated Diagnosis Comments COVID-19 Routine 07/12/2020 11:00 AM EST documented in this encounter Results * COVID-19 (07/12/2020 11:00 AM EST) SARS-CoV-2 Not Detected Negative [facility] CONVERSION Comment: This test was developed and its performance characteristics determined by [facility]. It has not been cleared or approved by the FDA. However, such approval/clearance is not required, as the laboratory is regulated and qualified under CLIA to perform high-complexity testing. This test is used for clinical purposes, and should not be regarded as investigational or for research. This test has been validated in accordance with the FDA's Guidance Document 'Policy for Diagnostics Testing in Laboratories Certified to Perform High Complexity Testing under CLIA prior to Emergency Use Authorization for Coronavirus Disease-2019 during the Public Health Emergency' issued on July 29, 2019. FDA independent review of this validation is pending. This test is only authorized for the duration of time the declaration that circumstances exist justifying the authorization of the emergency use of in vitro diagnostic tests for detection of SARS-CoV-2 virus and/or diagnosis of COVID-19 infection under section 564(b)(1) of the Act, 21 U.S.C. 360bbb-3(b)(1), unless the authorization is terminated or revoked sooner. The Analytic Specificity of this test is 89.60% as determined by the Primer Blast against the organisms and alejandra found in respiratory respiratory tract and the Analytic Sensitivity of this test is 100% above the Limit of Detection of Ct = 22 as determined by the serial dilution method. Processing and Detection Methodology: Test is performed by nucleic acid extraction from media containing nasopharyngeal swabs followed by reverse shrimp peeler and real-time PCR on a Gullivearth 12K Flex. Fluorescent probe sequences (onlinetours COVID-19 Combo Kit) are used to amplify three regions within the SARS-CoV-2 viral genome: ORF1ab, N-gene, and S-gene. MS2 Bacteriophage control is added to each extraction sample as a quality check for extraction and amplification. Cycle threshold analysis (Ct) of the targets is used to determine the presence or absence of SARS-CoV-2. Disclaimer: The information contained in this report is intended to be interpreted by a licensed physician or other licensed healthcare professional. This report is not intended to take the place of professional medical advice. Decisions regarding course of medical treatment must be made only after consulting with a licensed physician or other licensed healthcare professional, and should consider each patient's medical history. This test performed by [facility], [address] [employer], [place] [address] CLIA#: [id number] Interpretive Data: Performing Lab: ?? Dominick 07/12/2020 11:0 0 AM EST 07/12/2020 12:53 PM EST Comment:Nasopharyng Delvis Davis MD MICROBIOLOG Y - GENERAL ORDERABLES Performing Organization Address City/State/[facility] Co de Phone Number [facility] documented in this encounter Visit Diagnoses Not on filedocumented in this encounter
--- OUTSIDE RECORDS SUMMARY | 2024-01-11 22:19 | XMS_ITS | Referral Summary ---
Author Organization [facility] Address [address] [place] [address] Care Team Providers Care Lumber Handler Name Role Phone Unavailable Primary Care Provider Unavailabl e Encounters Date Type Department Care Team Description 01/11/2024 Lab Requisition [facility] Pathology & Laboratory [facility] [address] [place] [address] Outr Resulting Lab, Provider 01/11/2024 Lab Requisition [facility] Pathology & Laboratory [facility] [address] [place] [address] Outr Resulting Lab, Provider from Last 3 Months Social History Tobacco Use Types Packs/Day Years Used Date Smoking Tobacco: Never Assessed Sex and Gender Information Value Date Recorded Sex Assigned at Not on file Gender Identity Not on file Sexual Orientation Not on file Plan of Treatment Not on file
--- OUTSIDE RECORDS SUMMARY | 2024-01-11 22:19 | XMS_ITS | Encounter Summary ---
Author Organization [facility] Address [address] [place] [address] Care Team Providers Care Director Regulatory Affairs Name Role Phone Unavailable Primary Care Provider Unavailabl e Encounter Details Date Type Department Care Team (Late st Contact Info) Description 12/13/2020 Lab Requisition [facility] Pathology & Laboratory Medicine - [facility] [address] [place] [address] Outr Resulting Lab, Provider Social History Tobacco [...] Priority Date/Time Associated Diagnosis Comments CEA Routine 12/13/2020 8:30 EDT documented in this encounter Results * CEA (12/13/2020 8:30 EDT) CEA <2.0 See Note ng/mL 12/16/2020 9:31 EDT [facility] Comment: % Distribution of CEA [...] used interchangeably. Blood VENOUS BLOOD / Unknown 12/13/2020 8:30 EDT 12/13/2020 16:00 EDT Provider Outr Resulting Lab CHEMISTRY & BLOOD GAS ORDERABLES [facility] [address] [place] [address] documented in this encounter Visit Diagnoses Not on filedocumented in this encounter
--- OUTSIDE RECORDS SUMMARY | 2024-01-11 22:19 | XMS_ITS | Encounter Summary ---
Author Organization [facility] Address [address] [place] [address] Care Team Providers Care Twister Tender Paper Name Role Phone Cheo Santoyo Primary Care Provider [phone] Encounter Details Date Type Department Care Team ([facility] st Contact Info) Description 07/16/2020 Legacy Historical Encounter [facility] HISTORICAL CONVERSIONS [address] [place] [address] René Wright MD [address] [address] Social History Tobacco Use Types [...] 9:00 AM EDT Office Visit Neurology - [facility] [address] [facility] [address] [place] [address] Martell Calderon MD 214 [facility] [address] [place] [address] TREMORS/ MEDICARE, FOR LIFE 03/28/2024 8:30 AM EDT Office Visit Primary Care - [address] [address] Cheo Santoyo, [address] [place] [address] AWV 04/06/2024 9:45 AM EST Lab [facility] - [facility] [address] [facility] [place] [address] [place] [address] CBCMP,CEA,FEST 04/06/2024 10:15 AM EST Office Visit [facility] - [facility] [address] [facility] [place] [address] [place] [address] Georgi Butterfield MD [address] [place] [address] 6 MTH FU W/LABS, REV SCAN 04/13/2024 9:30 AM EST Office Visit Surgical Oncology - [facility] [address] [facility] [place] [address] [place] [address] Delvis Cheek MD 125 [facility] [address] [place] [address] 1 YEAR F/U [facility] 06/19/2024 10:30 AM EST Office Visit Orthopaedics- Les Valencia [address] [facility] [address] [place] [address] Karly Bautista PA [address] [facility] [address] [place] [address] annual visit from date of surgery May/Jul 2024 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 documented as of this encounter Visit Diagnoses Not on filedocumented in this encounter Care Teams Twister Tender Paper Relationship Specialty Start Date End Date Cheo Santoyo DO [address] [place] [phone] PCP - General Family Medicine 07/06/23 documented as of this encounter
--- OUTSIDE RECORDS SUMMARY | 2024-01-11 22:19 | XMS_ITS | Encounter Summary ---
Author Organization Jose Alejandro Pantoja [facility] Address [address] [place] [address] Care Team Providers Care Field Supervisor Name Role Phone YarelisCheo friend Moshe REYES Primary Care Provider [phone] Encounter Details Date Type Department Care Team (Late st Contact Info) Description 02/21/2019 Legacy Historical Encounter [facility] HISTORICAL CONVERSIONS [address] [place] [address] Genaro Mora DO [address] [place] [address] Social History Tobacco Use Types Packs/Day Years [...] Visit Neurology - [facility] [address] [facility] [address] [place] [address] Martell Calderon MD 2144 [facility] [address] [place] [address] TREMORS/ MEDICARE, FOR LIFE 03/28/2024 8:30 AM EDT Office Visit Primary Care - [address] [address] Cheo Santoyo DO [address] [place] [address] AWV 04/06/2024 9:45 AM EST Lab [facility] - [facility] [address] [facility] [address] [place] [address] CBCMP,CEA,FEST 04/06/2024 10:15 AM EST Office Visit [place] [facility] - [facility] [address] [facility] [address] [place] [address] Georgi Butterfield MD [address] [place] [address] 6 MTH FU W/LABS, REV SCAN 04/13/2024 9:30 AM EST Office Visit Surgical Oncology - [facility] [address] [facility] [address] [place] [phone] Delvis Cheek MD 125 [facility] [address] [place] [address] 1 YEAR F/U [facility]ENOCARCINOMA OF [facility]UM 06/19/2024 10:30 AM EST Office Visit Orthopaedics- Les Valencia 615 [facility] [address] [place] [address] Karly Bautista, PA [address] [place] [address] annual visit from date of surgery May/Jul 2024 for bilateral TKA and right LIZZ with Karly. documented as of this encounter Visit Diagnoses Not on filedocumented in this encounter Care Teams Field Supervisor Relationship Specialty Start Date End Date Cheo Santoyo DO [address] [place] [phone] PCP - General Family Medicine 07/06/23 documented as of this encounter
--- OUTSIDE RECORDS SUMMARY | 2024-01-11 22:19 | XMS_ITS | Encounter Summary ---
Author Organization [facility] Address [address] [place] [address] Care Team Providers Care Tool And Fixture Repairer Name Role Phone Unavailable Primary Care Provider Unavailabl e Encounter Details Date Type Department Care Team (Late st Contact Info) Description 11/21/[address] [facility] Pathology & Laboratory Medicine - [facility] [address] [place] [address] Outr Resulting Lab, Provider Social History Tobacco [...] Priority Date/Time Associated Diagnosis Comments CEA Routine 11/21/2020 10:29 EDT documented in this encounter Results * CEA (11/21/2020 10:29 EDT) CEA 2.7 See Note ng/mL 11/21/2020 17:02 EDT [facility] Comment: % Distribution [...] used interchangeably. Blood VENOUS BLOOD / Unknown 11/21/2020 10:29 EDT 11/21/2020 16:04 EDT Provider Outr Resulting Lab CHEMISTRY & BLOOD GAS ORDERABLES [facility] [address] [place] [address] documented in this encounter Visit Diagnoses Not on filedocumented in this encounter
--- OUTSIDE RECORDS SUMMARY | 2024-01-11 22:19 | XMS_ITS | Encounter Summary ---
Author Organization Jose Alejandro [facility] Address [address] [place] [address] Care Team Providers Care Memorial Mason Name Role Phone Cheo Santoyo Moshe REYES Primary Care Provider [phone] Encounter Details Date Type Department Care Team (Late st Contact Info) Description 03/29/2019 Legacy Historical Encounter [facility] HISTORICAL CONVERSIONS [address] [place], [place] [phone] More Morales PA 300 [facility] 200 [place] [address] Social History Tobacco Use Types Packs/Day Years [...] - [facility] [place] [address] [facility] [address] [place] [address] Martell Calderon MD 2144 [facility] [address] [place] [address] TREMORS/ MEDICARE, FOR LIFE 03/28/2024 8:30 AM EDT Office Visit Primary Care - [address] [address] Cheo Santoyo DO [address] [place] [address] AWV 04/06/2024 9:45 AM EST Lab [place] [facility] - [facility] [place] [address] [facility] [address] [place] [address] CBCMP,CEA,FEST 04/06/2024 10:15 AM EST Office Visit [place] [facility] - [facility] [place] 20[address] [facility] [address] [place] [address] Georgi Butterfield MD [address] [place] [address] 6 MTH FU W/LABS, REV SCAN 04/13/2024 9:30 AM EST Office Visit Surgical Oncology - [facility] [place] [address] [facility] [address] [place] [address] Delvis Cheek MD 125 [facility] [address] [place] [address] 1 YEAR F/U [facility]ARCIN[facility] 06/19/2024 10:30 AM EST Office Visit Orthopaedics- Les Valencia 615 [facility] [address] [place] [address] Karly Bautista, PA 180 [facility] [address] [place] [address] annual visit from date of surgery May/Jul 2024 for bilateral TKA and right LIZZ with Karly. documented as of this encounter Visit Diagnoses Not on filedocumented in this encounter Care Teams Memorial Mason Relationship Specialty Start Date End Date Cheo Santoyo DO [address] [place] [phone] PCP - General Family Medicine 07/06/23 documented as of this encounter
[2024-01-12 11:22] LABS: Campylobacter PCR Negative (Negative); Salmonella PCR Negative (Negative); Shiga Toxin PCR Negative (Negative); Shigella/Enteroinvasive Ecoli Negative (Negative)
[2024-01-14 14:53] LABS: Helicobacter pylori Ag, Feces Negative (Negative)
== END 2024-01-11 21:57 | disposition home or self-care (01) ==
LOC: NCHCN 21:56
PROVIDERS: PCP Nurse Practitioner Family; Visit Provider Nurse Practitioner Family
DX: R19.7 Diarrhea, unspecified (principal)
CPT/HCPCS: 87338; 87505

== ENCOUNTER 2024-01-13 02:58 | Outpatient (CLI) | payer MEDICARE, OTHER, SELFPAY ==
--- NOTE | 2024-01-13 | DI.RAD_ITS ---
Exam(s) XR HIP RT COMPLETE AP PELVIS EXAM: XR HIP RT COMPLETE AP PELVIS CLINICAL HISTORY: RT HIP PAIN,M25.551,S/P TOTAL HIP ARTHROPLASTY,Z47.1,Z96.641. TECHNIQUE: 2D digital imaging was performed of the right hip. Three images were obtained. AP pelvis and lateral right hip views were obtained. COMPARISON: No exams were available for comparison FINDINGS: BONES: No acute fracture is present. No bony destructive lesion is seen. JOINTS: No dislocation present. The patient has a right total hip arthroplasty. No lucencies are see n about the orthopedic hardware. The hardware appears in good position. There are degenerative tellez ges seen at the lumbosacral junction. The left hip is well maintained as are the sacroiliac joints. SOFT TISSUE: Normal. IMPRESSION: Right total hip arthroplasty. DATA REPOSITORY: RADIATION DOSE DELIVERED:
--- OUTSIDE RECORDS SUMMARY | 2024-01-13 03:02 | XMS_ITS | Encounter Summary ---
Author Organization [facility] Address [facility] [place] [address] Care Team Providers Care Squirrel Man Name Role Phone None Primary Care Provider Unavailabl e Encounter Details Date Type Department Care Team (Late st Contact Info) Description 03/07/2021 1:30 PM EDT Office Visit Hematology/Oncology at [address] [phone] Nik Killian MD [facility] [place] [address] Danette Oleary APRN [address] [place] [address] DR HEMATOLOGY ONCOLOGY [place], [place] [phone] Malignant neoplasm of ascending colon Social History [...] this encounter Progress Notes * Danette Oleary, JOURNEYMAN PIPE FITTER - 03/07/2021 1:30 PM EDT Subjective: Patient ID: Martínez Toribio is a 66 y.o. male. There are no problems to display for this patient. HPI Martínez Toribio is 65 yo, referred for evaluation and management of colon cancer. He lives in [place] [facility] and is visiting [place] for the summer months. He is seen [...] vaccinated against Covid 19. 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 He had a right hemicolectomy 07/16/20 and lymph nodes were negative. It was recommended he take oral Capecitabine as adjuvant therapy for 8 cycles. (See history as summarized above.) has been spending time in [place] and [place] this summer. He returns to the [facility] onc[facility] clinic in [facility] today [...] summarized above.) has been spending time in [place] and [place] this summer. He comes to the [facility] onc[facility] clinic in [facility] todayfor [...] colon documented in this encounter Care Teams Squirrel Man Relationship Specialty Start Date End Date None None PCP - General 11/08/20 documented as of this encounter
--- OUTSIDE RECORDS SUMMARY | 2024-01-13 03:02 | XMS_ITS | Encounter Summary ---
Author Organization [facility] Address [address] [place] [address] Care Team Providers Care Rn Clinical Quality Name Role Phone Emma Monaco MD Primary Care Provider Yonas lester Reason for Referral * MRI/CAT Scan (Routine) - Closed Specialty Diagnoses / Procedures Referred By Contac t Referred To Contact Radiology Diagnoses Lumbar adjacent segment disease with spondylolisthesis Procedures CT Lumbar Spine Wo Contrast Cherie Carter FNP [address] [place] [address] Referral ID Status Reason Start Date Expiration Date Visits Re quested Visits Authorized [id number] Closed 08/21/2022 08/21/2023 1 1 * MRI/CAT Scan (Routine) - Closed Specialty Diagnoses / Procedures Referred By Contac t Referred To Contact Radiology Diagnoses Lumbar adjacent segment disease with spondylolisthesis Procedures MRI Lumbar Spine Wo Contrast Cherie Carter FNP [address] [place] [address] Referral ID Status Reason Start Date Expiration Date Visits Re quested Visits Authorized [id number] Closed 08/21/2022 08/21/2023 1 1 Reason for Visit * Reason Comments Thoracic to lumbar pain Images uploading in [facility] * Consult and Treat (Routine) - Closed Specialty Diagnoses / Procedures Referred By Rachid jimenez Referred To Contact Neurosurgery Diagnoses Thoracic to lumbar pain with popping-advised to bring Xray on disc-scheduled with patient Patient is requesting to see Dr. Delatorre Procedures NEW PATIENT Self, Referred Cherie Carter, KANDACE [address] [place] [address] Referral ID Status Reason Start Date Expiration Date Visits Re quested Visits Authorized [id number] Closed 08/21/2022 08/21/2023 1 1 Encounter Details Date Type Department Care Team (Latest Contact Info) Description 08/21/2022 11:00 AM EDT Office Visit Neurosurgery at [facility] [address] [facility], 1st [place] [address] Cherie Carter FNP [address] [place] [address] Lumbar adjacent segment disease with [...] this encounter Progress Notes * Cherie Carter, MANAGED SERVICES CONSULTANT - 08/21/2022 11:00 AM EDT Referring Provider: Referred Self No address on file Primary Care Provider: EMMA MONACO MD [address] [facility] [address] [facility] [address] RE: Martínez Toribio 1955 CLINIC: NEUROSURGERY Dear Dr. Monaco: CHIEF COMPLAINT: spine issues HISTORY OF PRESENT ILLNESS: I had the pleasure of seeing Martínez Toribio today in my Neurosurgery Clinic in consultation [...] Toribio is a very pleasant 67 y.o. [id number] with low back pain and prior lumbar [...] in his care. Sincerely, Monika Carter, MSN, MANAGED SERVICES CONSULTANT-C Nurse Practitioner Department of Neurosurgery [facility] documented in this encounter Plan of Treatment [...] WO CONTRAST 09/01/2022 5:07 PM ACCESSION NUMBER: [id number] INDICATION: Low back pain, prior surgery, new [...] WO CONTRAST 09/01/2022 5:07 PM ACCESSION NUMBER: [id number] INDICATION: Low back pain, prior surgery, new [...] this report. 09/01/2022 9:37 PM Cherie Carter [facility] IMG CT ORDE RABLAZ * MRI Lumbar [...] WO CONTRAST 09/01/2022 4:43 PM ACCESSION NUMBER: [id number] INDICATION:Low back pain, symptoms persist with > [...] WO CONTRAST 09/01/2022 4:43 PM ACCESSION NUMBER: [id number] INDICATION:Low back pain, symptoms persist with > [...] spondylolisthesis documented in this encounter Care Teams Rn Clinical Quality Relationship Specialty Start Date End Date Emma Monaco MD PCP - General Family Medicine 08/18/22 documented as of this encounter
--- OUTSIDE RECORDS SUMMARY | 2024-01-13 03:02 | XMS_ITS | Clinical Summary ---
Author Organization [facility] Address [facility] [place] [address] Care Team Providers Care Informatics Educator Name Role Phone None Primary Care Provider [...] - Influenza standard series) 01/30/2024 Care Teams Informatics Educator Relationship Specialty Start Date End Date None None PCP - General 11/08/20
--- OUTSIDE RECORDS SUMMARY | 2024-01-13 03:02 | XMS_ITS | Encounter Summary ---
Author Organization [facility] Address [facility] [place] [address] Care Team Providers Care Waste Machine Tender Name Role Phone Unavailable Primary Care Provider Unavailabl e Reason for Visit * Reason Comments Advice Only * Consultation (Routine) - Closed Specialty Diagnoses / Procedures Referred By Contac t Referred To Contact Hematology and Oncology Diagnoses Colon cancer COLON CANCER Procedures TREATMENT OPTIONS Georgi Butterfield MD [address] [facility] [address] [place] [address] [facility] Hem Onc Office [address] [place] [phone] Referral ID Status Reason Start Date Expiration Date Visits Re quested Visits Authorized [id number] Closed 10/24/2020 10/24/2021 1 1 Encounter Details Date Type Department Care Team (Late st Contact Info) Description 11/06/2020 2:45 PM EDT Office Visit [place] [phone] Nik Killian MD [facility] [place] [address] Malignant neoplasm of ascending colon Social History [...] The history is summarizedabove. He lives in [facility] and but staying in [place], [place] for the summer months. He is [...] well controlled. Soc Hx: , lives in [place], visiting [place] for the summer Tob - Quit in 2008; priot to that, 2 ppd for 27 years Etoh - 5 to 7 drinks per week On disability due to spinal stenosis. 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 Fam Hx: Father - Mother - Sibs [...] management of colon cancer. He lives in [facility] [place] and is visiting [place] for the summer months. He is seen [...] me know immediately. He is living in [place], [place] for the summer months and I will plan to arrange for his f/u to be in [facility]. As I am on service and will not be in [facility] on 11/22, I will arrange for a TeleHealth visit with labs prior. He had his are both fully vaccinated against Covid 19. documented in this encounter Plan of Treatment Not on file documented as of this encounter Visit Diagnoses Diagnosis Malignant neoplasm of ascending colon documented in this encounter
--- OUTSIDE RECORDS SUMMARY | 2024-01-13 03:02 | XMS_ITS | Encounter Summary ---
Author Organization [facility] Address [address] [place] [address] Care Team Providers Care Factory Clerk Name Role Phone Felicitas Monaco MD Primary Care Provider Yonas lester Reason for Referral * (Routine) - Closed Specialty Diagnoses / Procedures Referred By Contac t Referred To Contact Diagnoses Lumbar pain Procedures XR Lumbar Spine AP And Lateral Dave Moser MD [address] [place] [address] Referral ID Status Reason Start Date Expiration Date Visits Re quested Visits Authorized [id number] Closed 09/29/2022 09/29/2023 1 1 Reason for Visit * (Routine) - Closed Specialty Diagnoses / Procedures Referred By Contac t Referred To Contact Diagnoses Lumbar pain Procedures XR Lumbar Spine AP And Lateral Dave Moser MD [address] [place] [address] Referral ID Status Reason Start Date Expiration Date Visits Re quested Visits Authorized [id number] Closed 09/29/2022 09/29/2023 1 1 Encounter Details Date Type Department Care Team (Latest Contact Info) Description 10/02/2022 12:53 PM EDT - 10/02/2022 11:59 PM EDT Hospital Encounter RADIOLOGY [facility] [address] [place] [address] Dave Moser MD [address] [place] [address] Lumbar pain Discharge Disposition: Home [...] MD. 10/02/2022 1:18 PM Piyush Pendleton MD [[facility]], have reviewed the study and agree with the findings in this report. ??10/02/2022 1:41 PM Narrative 10/02/2022 1:41 PM EDT EXAMINATION: XR LUMBAR SPINE AP AND LATERAL 10/02/2022 1:11 PM ACCESSION NUMBER: [id number] INDICATION: lumbar pain. lumbar pain. COMPARISON: Lumbar [...] AND LATERAL 10/02/2022 1:11 PM ACCESSION NUMBER: [id number] INDICATION: lumbar pain. lumbar pain. COMPARISON: Lumbar [...] MD. 10/02/2022 1:18 PM Piyush Pendleton MD [[facility]], have reviewed the study and agreewith the findings in this report. 10/02/2022 1:41 PM Dave Moser MD IMG DIAGNOSTIC IMAGING ORDERABLES documented in this encounter Visit Diagnoses Diagnosis Lumbar pain Lumbago documented in this encounter Care Teams Factory Clerk Relationship Specialty Start Date End Date Felicitas Monaco MD PCP - General Family Medicine 08/18/22 documented as of this encounter
--- OUTSIDE RECORDS SUMMARY | 2024-01-13 03:02 | XMS_ITS | Encounter Summary ---
Author Organization [facility] Address [facility] [place] [address] Care Team Providers Care General Labor Forklift Operator Name Role Phone None Primary Care Provider Unavailabl e Encounter Details Date Type Department Care Team (Late st Contact Info) Description 02/14/2021 10:00 AM EDT Office Visit Hematology/Oncology at [address] [phone] Nik Killian MD [facility] [place] [address] Danette Oleary APRN [address] [place] [address] DR HEMATOLOGY ONCOLOGY [place], [place] [id number] Malignant neoplasm of ascending colon Social History [...] management of colon cancer. He lives in [facility] and is visiting [place] for the summer months. He is seen [...] summarized above.) has been spending time in [place] and [place] this summer. He returns to the [facility] in [facility] today for follow-up since completing C7/8 [...] Ondansetron. Martínez is hoping to return to [facility] in mid-February. He tells me he has a CT scheduled forMarch 19 in [place]. Martínez reports good energy and usually good [...] summarized above.) has been spending time in [place] and [place] this summer. He comes to the [facility]ology clinic in [facility] todayfor routine follow-up. CBC and CMP [...] colon documented in this encounter Care Teams General Labor Forklift Operator Relationship Specialty Start Date End Date None None PCP - General 11/08/20 documented as of this encounter
--- OUTSIDE RECORDS SUMMARY | 2024-01-13 03:02 | XMS_ITS | Encounter Summary ---
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 Janki Fernandez FNP [address] [facility] [address] [facility] [address] [place] [id number] Referral ID Status Reason Start Date Expiration Date V isits Requested Visits Authorized [id number] Closed Specialty Services Required 09/22/2022 09/22/2023 1 [...] CT Procedures RETURN PATIENT Felicitas Monaco MD [address] [facility] [address] [place] [address] Deandre Alcantara MD [address] [place] [address] Referral ID Status Reason Start Date Expiration Date Visits Re quested Visits Authorized [id number] Closed 09/22/2022 09/22/2023 1 1 Encounter Details Date Type Department Care Team (Late st Contact Info) Description 09/22/2022 1:30 PM EDT Office Visit Neurosurgery at [facility] [address] [facility], 1st [place] [address] Deandre Alcantara MD [address] [place] [address] Instability of spine due to [...] Primary documented in this encounter Care Teams Wax Pumper Relationship Specialty Start Date End Date eFlicitas Monaco MD PCP - General Family Medicine 08/18/22 documented as of this encounter
--- OUTSIDE RECORDS SUMMARY | 2024-01-13 03:02 | XMS_ITS | Encounter Summary ---
Author Organization [facility] Address [address] [place] [address] Care Team Providers Care Coil Winding Machines Set Up Mechanic Name Role Phone Felicitas Monaco MD Primary Care Provider Yonas lester Reason for Referral * Rehabilitation (Routine) - Closed Specialty Diagnoses / Procedures Referred By Contact Referred To Contact Physical Medicine and Rehabilitation Diagnoses Lumbar spondylosis Dave Moser MD [address] [place] [address] Georgi Sheets MD [address] [place] [address] Referral ID Status Reason Start Date Expiration Date V isits Requested Visits Authorized [id number] Closed Specialty Services Required 11/06/2022 11/06/2023 1 1 Scheduling Instructions REASON FOR REFERRAL: Patient is a 67 y.o. male with lumbar spondylosis. eval and treat Reason for Visit * Reason Comments Follow-up MRI f/u Encounter Details Date Type Department Care Team ([facility] st Contact Info) Description 11/06/2022 1:15 PM EDT Office Visit [facility] [address] [place] [address] Dave Moser MD [address] [place] [address] Lumbar spondylosis (Primary Dx); Thoracic [...] spondylosis documented in this encounter Care Teams Coil Winding Machines Set Up Mechanic Relationship Specialty Start Date End Date Felicitas Monaco MD PCP - General Family Medicine 08/18/22 documented as of this encounter
--- OUTSIDE RECORDS SUMMARY | 2024-01-13 03:02 | XMS_ITS | Encounter Summary ---
Author Organization [facility] Address [address] [place] [address] Care Team Providers Care Television Announcer Name Role Phone Felicitas Monaco MD Primary Care Provider Yonas lester Reason for Referral * MRI/CAT Scan (Routine) - Closed Specialty Diagnoses / Procedures Referred By Contac t Referred To Contact Radiology Diagnoses Thoracic radiculopathy Procedures MRI Thoracic Spine Wo Contrast Dave Moser MD [address] [place] [address] Referral ID Status Reason Start Date Expiration Date Visits Re quested Visits Authorized [id number] Closed 10/02/2022 10/02/2023 1 1 Reason for Visit * MRI/CAT Scan (Routine) - Closed Specialty Diagnoses / Procedures Referred By Contac t Referred To Contact Radiology Diagnoses Thoracic radiculopathy Procedures MRI Thoracic Spine Wo Contrast Dave Moser MD [address] [place] [address] Referral ID Status Reason Start Date Expiration Date Visits Re quested Visits Authorized [id number] Closed 10/02/2022 10/02/2023 1 1 Encounter Details Date Type Department Care Team (Latest Contact Info) Description 10/28/2022 2:31 PM EDT - 10/28/2022 11:59 PM EDT Hospital Encounter [facility] [place] [facility] [address] [place] [address] Dave Moser MD [address] [place] [address] Thoracic radiculopathy Discharge Disposition: Home or Self [...] in the thoracic spine Piyush Pendleton MD [[facility]], have reviewed the study and agree with the findings in this report. ??10/28/2022 3:28 PM Narrative 10/28/2022 3:28 PM EDT EXAMINATION: MRI THORACIC SPINE WO CONTRAST 10/28/2022 3:17 PM ACCESSION NUMBER: [id number] INDICATION: thoracic radiculopathy. Mid-back pain, thoracic radiculopathy. COMPARISON: None TECHNIQUE: Multiplanar multisequence MRI of the thoracic spine without intravenous contrast. ?? FINDINGS: There is no evidence of fracture. There are small central disc protrusions of T6-T7 and T7-T1 with mild secondary central canal narrowing. There is no evidence of significant foraminal narrowing. Normal thoracic cord signal. No suspicious mass lesion in the dvjbe-qh-duhe of this examination. Partially visualized cervical and lumbar hardware. Procedure Note Piyush Vazquez MD - 10/28/2022 EXAMINATION: MRI THORACIC SPINE WO CONTRAST 10/28/2022 3:17 PM ACCESSION NUMBER: [id number] INDICATION: thoracic radiculopathy. Mid-back pain, thoracicradiculopathy. COMPARISON: None TECHNIQUE: Multiplanar multisequence MRI of the thoracic spine without intravenous contrast. FINDINGS: There is no evidence of fracture. There are small central disc protrusionsof T6-T7 and T7-T1 with mild secondary central canal narrowing. There is no evidence of significant foraminal narrowing. Normal thoracic cord signal.No suspicious mass lesion in the jgawd-rn-ydad of this examination.Partially visualized cervical and lumbar hardware. IMPRESSION: No evidence of fracture with small central disc protrusions at T6-T7 andT7-T8. No evidence of significant foraminal narrowing in the thoracic spine Piyush Pendleton MD [[facility]], have reviewed the study and agreewith the findings in this report. 10/28/2022 3:28 PM Dave Moser MD IMG MRI ORDERA BLES documented in this encounter Visit Diagnoses Diagnosis Thoracic radiculopathy Thoracic or lumbosacral neuritis or radiculitis, unspecified documented in this encounter Care Teams Television Announcer Relationship Specialty Start Date End Date Felicitas Monaco MD PCP - General Family Medicine 08/18/22 documented as of this encounter
--- OUTSIDE RECORDS SUMMARY | 2024-01-13 03:02 | XMS_ITS | Encounter Summary ---
Author Organization [facility] Address [facility] [place] [address] Care Team Providers Care Brake Repairer Hydraulic Name Role Phone None Primary Care Provider Unavailabl e Encounter Details Date Type Department Care Team (Late st Contact Info) Description 12/13/2020 9:00 AM EDT Office Visit Hematology/Oncology at [address] [phone] [facility] [place] [address] Malignant neoplasm of ascending colon Social History [...] history is summarized above. He lives in [facility] but staying in [place], [place] for the summer months. He is [...] No stomatitis. Soc Hx: , lives in [place], visiting [place] for the summer Tob - Quit in 2008; priot to that, 2 ppd for 27 years Etoh - 5 to 7 drinks per week On disability due to spinal stenosis. 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 Fam Hx: Father - Mother - Sibs [...] management of colon cancer. He lives in [facility] and is visiting [place] for the summer months. He is seen [...] colon documented in this encounter Care Teams Brake Repairer Hydraulic Relationship Specialty Start Date End Date None None PCP - General 11/08/20 documented as of this encounter
--- OUTSIDE RECORDS SUMMARY | 2024-01-13 03:02 | XMS_ITS | Encounter Summary ---
Author Organization [facility] Address [facility] [place] [address] Care Team Providers Care Airline Station Agent Name Role Phone None Primary Care Provider Unavailabl e Encounter Details Date Type Department Care Team (Late st Contact Info) Description 01/29/2021 Telephone Hematology Oncology at [address] [phone] Sonam Mcclain RN Social History [...] come in tomorrow at 1330 and the SOLDERING TECHNICIAN can evaluate it. He is in agreement [...] He would appreciate a call back at [phone]. Thanks Sweta documented in this encounter Plan of Treatment Not on file documented as of this encounter Visit Diagnoses Not on filedocumented in this encounter Care Teams Airline Station Agent Relationship Specialty Start Date End Date None None PCP - General 11/08/20 documented as of this encounter
--- OUTSIDE RECORDS SUMMARY | 2024-01-13 03:02 | XMS_ITS | Referral Summary ---
Author Organization [facility] Address [address] [place] [address] Care Team Providers Care Electrical Appliance Servicer Name Role Phone Felicitas Monaco MD Primary [...] of Treatment Not on file Care Teams Electrical Appliance Servicer Relationship Specialty Start Date End Date Felicitas Monaco MD PCP - General Family Medicine 08/18/22
--- OUTSIDE RECORDS SUMMARY | 2024-01-13 03:02 | XMS_ITS | Encounter Summary ---
Author Organization [facility] Address [address] [place] [address] Care Team Providers Care Lead Vulcanizing Operator Name Role Phone Felicitas Monaco MD Primary Care Provider Yonas lester Reason for Referral * MRI/CAT Scan (Routine) - Closed Specialty Diagnoses / Procedures Referred By Contac t Referred To Contact Radiology Diagnoses Lumbar adjacent segment disease with spondylolisthesis Procedures CT Lumbar Spine Wo Contrast Chreie Carter FNP [address] [place] [address] Referral ID Status Reason Start Date Expiration Date Visits Re quested Visits Authorized [id number] Closed 08/21/2022 08/21/2023 1 1 Reason for Visit * MRI/CAT Scan (Routine) - Closed Specialty Diagnoses / Procedures Referred By Contac barbara Referred To Contact Radiology Diagnoses Lumbar adjacent segment disease with spondylolisthesis Procedures CT Lumbar Spine Wo Contrast Cherie Carter FNP [address] [place] [address] Referral ID Status Reason Start Date Expiration Date Visits Re quested Visits Authorized [id number] Closed 08/21/2022 08/21/2023 1 1 Encounter Details Date Type Department Care Team (Latest Contact Info) Description 09/01/2022 3:58 PM EDT Hospital Encounter [facility] CT Imaging [address] [facility], 1st [place] [address] Raul Cherie Bear, WAITSTAFF [address] [place], [place] [id number] Lumbar adjacent segment disease with spondylolisthesis Discharge [...] WO CONTRAST 09/01/2022 5:07 PM ACCESSION NUMBER: [id number] INDICATION: Low back pain, prior surgery, new [...] WO CONTRAST 09/01/2022 5:07 PM ACCESSION NUMBER: [id number] INDICATION: Low back pain, prior surgery, new [...] this report. 09/01/2022 9:37 PM Cherie Carter [facility] IMG CT AMANDO SAENZ documented in this encounter Visit Diagnoses Diagnosis Lumbar adjacent segment disease with spondylolisthesis documented in this encounter Care Teams Lead Vulcanizing Operator Relationship Specialty Start Date End Date Felicitas Monaco MD PCP - General Family Medicine 08/18/22 documented as of this encounter
--- OUTSIDE RECORDS SUMMARY | 2024-01-13 03:02 | XMS_ITS | Encounter Summary ---
[place] [address] Care Team Providers Care Internal Grinding Machine Operator Name Role Phone Unavailable Primary Care Provider Unavailabl e Encounter Details Date Type Department Care Team (Late st Contact Info) Description 10/25/2020 Abstract Hematology [place] [address] Shawna Fields Social History Tobacco Use Types [...]
--- OUTSIDE RECORDS SUMMARY | 2024-01-13 03:02 | XMS_ITS | Encounter Summary ---
Author Organization [facility] [place] [address] Care Team Providers Care Snow Shoveler Name Role Phone None Primary Care Provider Unavailabl e Encounter Details Date Type Department Care Team (Late st Contact Info) Description 01/30/2021 1:30 PM EDT Office Visit Hematology/Oncology at [address] [phone] Danette Oleary APRN [address] [place] [address] DR HEMATOLOGY ONCOLOGY [place], [place] [id number] Malignant neoplasm of ascending colon Social History [...] Instructions * Patient Instructions* Matarazzo, Danette A, FIELD SOFTWARE ENGINEER - 01/30/2021 1:30 PM EDT Here are [...] management of colon cancer. He lives in [facility] and is visiting [place] for the summer months. He is seen [...] summarized above.) has been spending time in [place] and [place] this summer. He comes to the [facility] in [facility] todayas an unscheduled visit for some concerning symptoms. Martínez began C7 Capecitabine on 01/27/21 at a dose of 1000mg am and 1500mg pm. He has had dose adjustments previously due to toxicities while taking 1500mg bid. He saw his oncologist in [place], Dr. Carbajal, after C6, and has since returned to [place]. Martínez says toxicities for him seem to [...] summarized above.) has been spending time in [place] and [place] this summer. He comes to the [facility] oncology clinic in [facility] todayas an unscheduled visit for some concerning [...] colon documented in this encounter Care Teams Snow Shoveler Relationship Specialty Start Date End Date None None PCP - General 11/08/20 documented as of this encounter
--- OUTSIDE RECORDS SUMMARY | 2024-01-13 03:02 | XMS_ITS | Encounter Summary ---
Author Organization [facility] Address [address] [place] [address] Care Team Providers Care Telegraph Office Manager Name Role Phone Felicitas Monaco MD Primary Care Provider Yonas lester Encounter Details Date Type Department Care Team (Late st Contact Info) Description 10/06/2022 Telephone COUNT INCLUDES THE [facility] [address] [facility] [address] [place], [place] [id number] Tere Mancilla ATC, [place] [address] [place], [place] [id number] Social History Tobacco Use Types Packs/Day Years [...] on filedocumented in this encounter Care Teams Telegraph Office Manager Relationship Specialty Start Date End Date Felicitas Monaco MD PCP - General Family Medicine 08/18/22 documented as of this encounter
--- OUTSIDE RECORDS SUMMARY | 2024-01-13 03:02 | XMS_ITS | Encounter Summary ---
Author Organization [facility] Address [facility] [place] [address] Care Team Providers Care Wine Blender Name Role Phone None Primary Care Provider Unavailabl e Encounter Details Date Type Department Care Team (Late st Contact Info) Description 11/22/2020 2:30 PM EDT TH Visit (TeleHealth) Hematology/Oncology at [address] [phone] Nik Killian MD [facility] [place] [address] Danette Oleary APRN [address] [place] [address] DR HEMATOLOGY ONCOLOGY [place], [place] [id number] Malignant neoplasm of ascending colon Social History [...] history is summarized above. He lives in [facility] and but staying in [place], [place] for the summer months.He is seen [...] the same. Soc Hx: , lives in [place], visiting [place] for the summer Tob - Quit in 2008; priot to that, 2 ppd for 27 years Etoh - 5 to 7 drinks per week On disability due to spinal stenosis. 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 Fam Hx: Father - Mother - Sibs [...] management of colon cancer. He lives in [facility] and is visiting [place] for the [...] colon documented in this encounter Care Teams Wine Blender Relationship Specialty Start Date End Date None None PCP - General 11/08/20 documented as of this encounter
--- OUTSIDE RECORDS SUMMARY | 2024-01-13 03:02 | XMS_ITS | Encounter Summary ---
Author Organization [facility] Address [facility] [place] [address] Care Team Providers Care Specialty Sales Consultant Name Role Phone None Primary Care Provider Renanabl e Encounter Details Date Type Department Care Team (Latest Contact Info) Description 12/13/2020 Unscheduled Encounter Hematology/Oncology at [address] [phone] [facility] DR [place]ATOLOGY [place] [address] Malignant neoplasm of ascending colon Social History Tobacco Use Types Packs/Day Years Used Date Smoking Tobacco: Never Smokeless Tobacco: Never Sex and Gender Information Value Date Recorded Sex Assigned at Not on file Gender Identity Not on file Sexual Orientation Not on file documented as of this encounter Progress Notes * Mery Bliss RD - 12/13/2020 3:07 PM EDT [facility] Initial Assessment Patient Name: Martínez Toribio Diagnosis: [...] (or pesto pasta, bread when nauseous) Dinner: [employer] virgie steak and squash casserole last night [...] colon documented in this encounter Care Teams Specialty Sales Consultant Relationship Specialty Start Date End Date None None PCP - General 11/08/20 documented as of this encounter
--- OUTSIDE RECORDS SUMMARY | 2024-01-13 03:02 | XMS_ITS | Encounter Summary ---
Author Organization [facility] Address [address] [place] [address] Care Team Providers Care Director Digital Analytics Name Role Phone Felicitas Monaco MD Primary Care Provider Yonas lester Reason for Referral * MRI/CAT Scan (Routine) - Closed Specialty Diagnoses / Procedures Referred By Contac t Referred To Contact Radiology Diagnoses Lumbar adjacent segment disease with spondylolisthesis Procedures MRI Lumbar Spine Wo Contrast Cherie Carter FNP [address] [place] [address] Referral ID Status Reason Start Date Expiration Date Visits Re quested Visits Authorized [id number] Closed 08/21/2022 08/21/2023 1 1 Reason for Visit * MRI/CAT Scan (Routine) - Closed Specialty Diagnoses / Procedures Referred By Contac barbara Referred To Contact Radiology Diagnoses Lumbar adjacent segment disease with spondylolisthesis Procedures MRI Lumbar Spine Wo Contrast Cherie Carter FNP [address] [place] [address] Referral ID Status Reason Start Date Expiration Date Visits Re quested Visits Authorized [id number] Closed 08/21/2022 08/21/2023 1 1 Encounter Details Date Type Department Care Team (Latest Contact Info) Description 09/01/2022 3:59 PM EDT - 09/01/2022 11:59 PM EDT Hospital Encounter [facility] [address] [place] [address] Cherie Carter, HYDROPULPER [address] [facility] [place] [address] Lumbar adjacent segment disease with [...] WO CONTRAST 09/01/2022 4:43 PM ACCESSION NUMBER: [id number] INDICATION:Low back pain, symptoms persist with > [...] WO CONTRAST 09/01/2022 4:43 PM ACCESSION NUMBER: [id number] INDICATION:Low back pain, symptoms persist with > [...] this report. 09/01/2022 5:22 PM Cherie Carter HYDROPULPER IMG MRI ORD ERABLES documented in this encounter Visit Diagnoses Diagnosis Lumbar adjacent segment disease with spondylolisthesis documented in this encounter Care Teams Director Digital Analytics Relationship Specialty Start Date End Date Felicitas Monaco MD PCP - General Family Medicine 08/18/22 documented as of this encounter
--- OUTSIDE RECORDS SUMMARY | 2024-01-13 03:02 | XMS_ITS | Encounter Summary ---
Author Organization [facility] Address [address] [place] [address] Care Team Providers Care Senior Coldfusion Developer Name Role Phone Unavailable Primary Care Provider Unavailabl e Reason for Visit * MRI/CAT Scan (Routine) - Closed Specialty Diagnoses / Procedures Referred By Rachid jimenez Referred To Contact Radiology Diagnoses No diagnosis, [facility] [place] Procedures Import Diag L-Spine Self, Referred [address] [place] [id number] Referral ID Status Reason Start Date Expiration Date Visits Re quested Visits Authorized [id number] Closed 08/27/2022 08/27/2023 1 1 Encounter Details Date Type Department Care Team (Latest Contact Info) Description 07/29/2022 8:35 AM EST - 07/29/2022 11:59 PM [facility] Hospital Encounter [facility] [address] [facility], [address] [address] Self, Referred [address] [place] [id number] No diagnosis, [facility] [place] Discharge Disposition: Home or Self Care Social [...]
--- OUTSIDE RECORDS SUMMARY | 2024-01-13 03:02 | XMS_ITS | Encounter Summary ---
[place] [address] Care Team Providers Care Shoemaking Finisher Name Role Phone Unavailable Primary Care Provider Unavailabl e Reason for Visit * Reason Comments Specialty Pharmacy Review Capecitabine Encounter Details Date Type Department Care Team (Late st Contact Info) Description 11/06/2020 Specialty [place] [address] America Weir Social History Tobacco Use Types Packs/Day Years Used Date Smoking Tobacco: Never Smokeless Tobacco: Never Sex and Gender Information Value Date Recorded Sex Assigned at Not on file Gender Identity Not on file Sexual Orientation Not on file documented as of this encounter Progress Notes * America Weir - 11/06/2020 4:06 PM EDT The [facility] has completed a benefits investigation for Martínez Toribio to review their eligibility to fill at [facility]. Per patient's medication list they are prescribed CAPECITABINE and the medication is not able to be filled at the [facility]. documented in this encounter Plan of Treatment Not on file documented as of this encounter Visit Diagnoses Not on filedocumented in this encounter
--- OUTSIDE RECORDS SUMMARY | 2024-01-13 03:02 | XMS_ITS | Clinical Summary ---
Author Organization [facility] Address [address] [place] [address] Care Team Providers Care Engine Room Operator Name Role Phone Felicitas Monaco MD [...] 65+ YEARS Completed 3, 04/30/2010 Care Teams Engine Room Operator Relationship Specialty Start Date End Date Felicitas Monaco MD PCP - General Family Medicine 08/18/22
--- OUTSIDE RECORDS SUMMARY | 2024-01-13 03:02 | XMS_ITS | Encounter Summary ---
Author Organization [facility] Address [address] [place] [address] Care Team Providers Care Circular Distributor Name Role Phone Felicitas Monaco MD Primary Care Provider Yonas lester Reason for Visit * Reason Onset Date Comments Symptom Call For Nurse 10/06/2022 Encounter Details Date Type Department Care Team ([facility] st Contact Info) Description 10/06/2022 Telephone [facility] [address] [place], [place] [id number] Dave Moser MD [address] [place], [place] [id number] Symptom Call For Nurse Social History Tobacco [...] on filedocumented in this encounter Care Teams Circular Distributor Relationship Specialty Start Date End Date Felicitas Monaco MD PCP - General Family Medicine 08/18/22 documented as of this encounter
--- OUTSIDE RECORDS SUMMARY | 2024-01-13 03:02 | XMS_ITS | Encounter Summary ---
Author Organization [facility] [place] [address] Care Team Providers Care Nutrition Worker Name Role Phone None Primary Care Provider Unavailabl e Encounter Details Date Type Department Care Team (Late st Contact Info) Description 01/31/2021 Notes Only Hematology/Oncology at [address] [phone] Danette Oleary APRN [address] [place] [address] DR HEMATOLOGY ONCOLOGY [place], [place] [id number] Social History Tobacco Use Types Packs/Day Years [...] on filedocumented in this encounter Care Teams Nutrition Worker Relationship Specialty Start Date End Date None None PCP - General 11/08/20 documented as of this encounter
--- OUTSIDE RECORDS SUMMARY | 2024-01-13 03:02 | XMS_ITS | Encounter Summary ---
Author Organization [facility] Address [address] [place] [address] Care Team Providers Care Watch Crystal Molder Name Role Phone Felicitas Monaco MD Primary Care Provider Yonas lester Reason for Referral * MRI/CAT Scan (Routine) - Closed Specialty Diagnoses / Procedures Referred By Contac t Referred To Contact Radiology Diagnoses Thoracic radiculopathy Procedures MRI Thoracic Spine Wo Contrast Dave Moser MD [address] [place] [address] Referral ID Status Reason Start Date Expiration Date Visits Re quested Visits Authorized [id number] Closed 10/02/2022 10/02/2023 1 1 * (Routine) - Closed Specialty Diagnoses / Procedures Referred By Contac t Referred To Contact Diagnoses Lumbar pain Procedures XR Lumbar Spine AP And Lateral Dave Moser MD [address] [place] [address] Referral ID Status Reason Start Date Expiration Date Visits Re quested Visits Authorized [id number] Closed 09/29/2022 09/29/2023 1 1 Reason for Visit * Reason Comments Pain Encounter Details Date Type Department Care Team ([facility] Contact Info) Description 10/02/2022 1:00 PM EDT Office Visit [facility] [address] [place] [address] Dave Moser MD [address] [place] [address] Lumbar pain (Primary Dx); Thoracic radiculopathy; Lumbar [...] summer. He has hopes of returning to [employer] in [place]. Patient localizes pain to right paraspinal region [...] Physical Therapy - yes Medication - yes [place], Flexeril, tylenol Injections - yes Chiropractor - [...] in the thoracic spine Piyush Pendleton MD [[facility]], have reviewed the study and agree with the findings in this report. ??10/28/2022 3:28 PM Narrative 10/28/2022 3:28 PM EDT EXAMINATION: MRI THORACIC SPINE WO CONTRAST 10/28/2022 3:17 PM ACCESSION NUMBER: [id number] INDICATION: thoracic radiculopathy. Mid-back pain, thoracic radiculopathy. COMPARISON: None TECHNIQUE: Multiplanar multisequence MRI of the thoracic spine without intravenous contrast. ?? FINDINGS: There is no evidence of fracture. There are small central disc protrusions of T6-T7 and T7-T1 with mild secondary central canal narrowing. There is no evidence of significant foraminal narrowing. Normal thoracic cord signal. No suspicious mass lesion in the pwffw-[id number] of this examination. Partially visualized cervical and lumbar hardware. Procedure Note Piyush Vazquez MD - 10/28/2022 EXAMINATION: MRI THORACIC SPINE WO CONTRAST 10/28/2022 3:17 PM ACCESSION NUMBER: [id number] INDICATION: thoracic radiculopathy. Mid-back pain, thoracicradiculopathy. COMPARISON: None TECHNIQUE: Multiplanar multisequence MRI of the thoracic spine without intravenous contrast. FINDINGS: There is no evidence of fracture. There are small central disc protrusionsof T6-T7 and T7-T1 with mild secondary central canal narrowing. There is no evidence of significant foraminal narrowing. Normal thoracic cord signal.No suspicious mass lesion in the wksow-hh-hrso of this examination.Partially visualized cervical and lumbar hardware. IMPRESSION: No evidence of fracture with small central disc protrusions at T6-T7 andT7-T8. No evidence of significant foraminal narrowing in the thoracic spine Piyush Pendleton MD [[facility]], have reviewed the study and [...] MD. 10/02/2022 1:18 PM Piyush Pendleton MD [[facility]], have reviewed the study and agree with the findings in this report. ??10/02/2022 1:41 PM Narrative 10/02/2022 1:41 PM EDT EXAMINATION: XR LUMBAR SPINE AP AND LATERAL 10/02/2022 1:11 PM ACCESSION NUMBER: [id number] INDICATION: lumbar pain. lumbar pain. COMPARISON: Lumbar [...] AND LATERAL 10/02/2022 1:11 PM ACCESSION NUMBER: [id number] INDICATION: lumbar pain. lumbar pain. COMPARISON: Lumbar [...] 10/02/2022 1:18 PM I, Piyush Vazquez MD [[facility]], have reviewed the study and [...] unspecified documented in this encounter Care Teams Watch Crystal Molder Relationship Specialty Start Date End Date Felicitas Monaco MD PCP - General Family Medicine 08/18/22 documented as of this encounter
--- OUTSIDE RECORDS SUMMARY | 2024-01-13 03:03 | XMS_ITS | Continuity of Care Document ---
Author Name [facility] Organization [facility] Care Team Providers Care Buggy Runner Name Role Phone [facility] Unavailable Unavailable Problems [...] tylenol daily DoD essential hypertension Inactive Condition [facility] routine history and physical Inactive Condition DoD [...] ORAL, AUROBINDO PHARM, 100 ea. BOTTLE Active [id number] 2023 4 Pharmac y Data Transac [...] ORAL, NIVAGEN PHARMAC, 500 ea. BOTTLE Active [id number] 2023 30 Pharmac y Data Transac [...] before becoming .Store in original package. 12/07/2023 [id number] 2022 6 [facility] [place] glucose test strip (freestyle lite) [...] NASAL, PADAGIS, 2 ea. BLIST PACK Active [id number] 2023 2 Pharmac y Data Transac [...] HCL (OXYCODONE HCL), 5 MG, TABLET, ORAL, MANTECA PHARMACE, 100 ea. BOTTLE Active [id number] 2023 20 Pharmac y Data Transac tion Service Facilit y OZEMPIC (semaglutid e), 1/0.75 (3), PEN INJCTR, SUBCUT, UYEN NORDISK, 3 ml SYRINGE Active [id number] 2023 3 Pharmac y Data Transac [...] ORAL, 'S LAB, 150 ea. BOTTLE Active [id number] 2023 30 Pharmac y Data Transac tion Service Facilit y TIZANIDINE HCL (TIZANIDINE HCL), 4MG, TABLET, ORAL, 'S LAB, 150 ea. BOTTLE Active [id number] 2023 30 Pharmac y Data Transac tion Service Facilit y TIZANIDINE HCL (TIZANIDINE HCL), 4MG, TABLET, ORAL, 'S LAB, 150 ea. BOTTLE Active [id number] 2023 30 Pharmac y Data Transac tion Service Facilit y TIZANIDINE HCL (TIZANIDINE HCL), 4MG, TABLET, ORAL, 'S LAB, 150 ea. BOTTLE Active [id number] 2023 30 Pharmac y Data Transac tion Service Facilit y TRAMADOL HCL (tramadol HCl), 50 MG, TABLET, ORAL, [facility], 1000 ea. BOTTLE Active [id number] 2023 20 Pharmac y Data Transac tion Service Facilit y TRAMADOL HCL (tramadol HCl), 50 MG, TABLET, ORAL, [facility], 1000 ea. BOTTLE Active [id number] 2023 20 Pharmac y Data Transac tion Service Facilit y TRAMADOL HCL (TRAMADOL HCL), 50MG, TABLET, ORAL, AMNEAL PHARMACE, 1000 ea. BOTTLE Active [id number] 2023 20 Pharmac y Data Transac [...] ORAL, SALIX PHARMACEU, 60 ea. BOTTLE Active [id number] 2023 42 Pharmac y Data Transac [...] allergy (disorder) Unknown, Other: Sensitivity active 5 [facility] [place] n Immunizations Combined list of available immunizations from the Department of Defense and Veterans Affairs facilities. 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 Status Comments Source Pneumococcal conjugate PCV20 1 2022 Unknown, Provider [id number] [employer] Inc (PFR) complet ed Pneumococ alexsandra conjugate PCV20 DoD COVID-19, mRNA, LNP-S, bivalent, PF, 30 mcg/0.3 mL dose (Pfizer, 12+ years) 1 2022 Unknown, Provider [id number] [employer] (PFR) complet ed COVID-19, mRNA, LNP-S, bivalent, PF, 30 mcg/0.3 mL dose (Pfizer, 12+ years) DoD influenza, injectable, quadrivalent- pf 2020 Right Arm [id number] [place] complet ed influenza , injectabl e, quadrival ent-pf 03/14/21 Given Ambulat ory Pharmac y Influenza, injectable, quadrivalent, preservative free 2020 Unknown, Provider [id number] SmithKline (SKB) complet ed Influenza , injectabl e, quadrival ent, preservat baldo free DoD COVID-19, mRNA, LNP-S, PF, 100 mcg or 50 mcg dose 2020 FREDO, () Not Given COVID-19, mRNA, LNP-S, PF, [...] inj, MDCK, quadrivalent- pf 2016 Right Arm [id number] Seqirus complet ed Influenza , inj, MDCK, quadrival ent-pf 04/30/17 Given Ambulat ory Pharmac y Influenza, injectable, Madin Kaylen Canine Kidney, preservative free, quadrivalent 1 2016 Unknown, Provider [id number] Seqirus (SEQ) complet ed Influenza , injectabl e, Madin Kaylen Canine Kidney, preservat baldo free, quadrival ent DoD influenza, seasonal, injectable-pf 2015 Left Arm [id number] 140 Seqirus complet ed influenza , seasonal, injectabl e-pf 03/30/16 Given Ambulat ory Pharmac y Influenza, seasonal, injectable, preservative free 1 2015 Unknown, Provider [id number] Seqirus (SEQ) complet ed Influenza , seasonal, injectabl e, preservat baldo free DoD influenza, seasonal, injectable-pf 2014 Left Arm [id number] CSL Behring complet ed influenza , seasonal, injectabl e-pf 04/11/15 Given Ambulat ory Pharmac y zoster vaccine live 2014 Right Arm [id number] Merck & Company Inc complet ed zoster vaccine live 04/11/15 Given Ambulat ory Pharmac y zoster vaccine, live 1 2014 Unknown, Provider [id number] Merck (MSD) complet ed zoster vaccine, live DoD Influenza, seasonal, injectable, preservative free 1 2014 Unknown, Provider [id number] CSM[employer] Product [employer], Inc. (CSL) complet ed Influenza , seasonal, injectabl e, preservat blado free DoD tuberculin purified protein derivative 2014 Left Arm [id number] Rylie Wiley complet ed Patient Tolerance : Negative Ambulat ory Pharmac y tuberculin skin test; purified protein derivative solution, intradermal 0 2014 JANEE SINGH [id number] Lisa (PD) complet ed tuberculi n [...] vaccine 3 2013 Unknown, Provider [id number] Ash GroveKline (SKB) complet ed hepatitis A and hepatitis [...] diphtheria, acellular pertu is 2012 Right Arm [id number] sanofi pasteur complet ed tetanus, diphtheri a, acellular pertussis 04/12/13 Given Ambulat ory Pharmac y tetanus toxoid, reduced diphtheria toxoid, and acellular pertu is vaccine, adsorbed 1 2012 JANEE SINGH [id number] Sanofi Pasteur ([facility]) complet ed tetanus toxoid, reduced diphtheri a toxoid, and acellular pertussis vaccine, adsorbed DoD Influenza, injectable, MDCK-pf 2012 Left Arm [id number] 153 Novartis Pharmaceutica ls complet ed Influenza , injectabl e, MDCK-pf 03/31/13 Given Ambulat ory Pharmac y Influenza, injectable, Madin Kaylen Canine Kidney, preservative free 11 2012 Unknown, Provider [id number] 153 Novartis Pharmaceutica l Ever. (NOV) complet ed Influenza , injectabl e, Madin [place] Canine Kidney, preservat baldo free DoD influenza, seasonal, injectable-pf 2010 Left Arm [id number] 140 sanofi pasteur complet ed influenza , seasonal, injectabl e-pf 04/27/11 Given Ambulat ory Pharmac y tetanus, diphtheria, acellular pertu is 2010 Right Arm [id number] 115 [facility] tetanus, diphtheri a, acellular pertussis 04/27/11 Given Ambulat ory Pharmac y tetanus toxoid, reduced diphtheria toxoid, and acellular pertu is vaccine, adsorbed 1 2010 Unknown, Provider [id number] 115 [facility] (SKB) complet ed tetanus toxoid, reduced diphtheri a toxoid, and acellular pertussis vaccine, adsorbed DoD Influenza, seasonal, injectable, preservative free 1 2010 Unknown, Provider [id number] 140 Sanofi Pasteur ([facility]) complet ed Influenza , seasonal, injectabl e, [...] y influenza virus vaccine,split 2008 Left Arm [id number] 15 sanofi pasteur complet ed influenza virus vaccine,s plit 03/20/09 Given Ambulat ory Pharmac y influenza virus vaccine, split virus (incl. purified surface antigen)-reti red CODE 1 2008 Unknown, Provider [id number] Edis Sanofi Pasteur ([facility]) complet ed influenza virus vaccine, split virus (incl. purified surface antigen)- retired CODE DoD influenza virus vaccine,split 2007 Left Arm [id number] 15 sanofi pasteur complet ed influenza virus vaccine,s plit 05/18/08 Given Ambulat ory Pharmac y influenza virus vaccine, split virus (incl. purified surface antigen)-reti red CODE 1 2007 Unknown, Provider [id number] Edis [facility] P[facility] ([facility]) complet ed influenza virus vaccine, split virus (incl. purified surface antigen)- retired CODE DoD influenza virus vaccine,split 2007 Left Arm [id number] sanofi pasteur complet ed influenza virus vaccine,s plit 06/23/07 Given Ambulat ory Pharmac y influenza virus vaccine, split virus (incl. purified surface antigen)-reti red CODE 1 2007 Unknown, Provider [id number] Edis Sanofi Pasteur ([facility]) complet ed influenza virus vaccine, split virus (incl. purified surface antigen)- retired CODE DoD influenza virus vaccine,split 2005 Left Arm [id number] sanofi pasteur complet ed influenza virus vaccine,s plit 05/17/06 Given Ambulat ory Pharmac y influenza virus vaccine, split virus (incl. purified surface antigen)-reti red CODE 1 2005 Unknown, Provider [id number] Edis Dunnofi Pasteur ([facility]) complet ed influenza virus vaccine, split virus (incl. purified surface antigen)- retired CODE DoD influenza virus vaccine,split 2004 Right Arm [id number] sanofi pasteur complet ed influenza virus vaccine,s plit 04/21/05 Given Ambulat ory Pharmac y influenza virus vaccine, split virus (incl. purified surface antigen)-reti red CODE 1 2004 Unknown, Provider [id number] Edis Sanofi Pasteur ([facility]) complet ed influenza virus vaccine, split virus (incl. purified surface antigen)- retired CODE [facility] tetanus-dipht h toxoids (Td) adult/adol 2004 Left Arm 09 complet ed tetanus-d iphth toxoids (Td) adult/ado l 07/20/04 Given Ambulat ory Pharmac y tetanus and diphtheria toxoids, adsorbed, preservative free, for adult use (2 Lf of tetanus toxoid and 2 Lf of diphtheria toxoid) 2 2004 Unknown, Provider 09 [place] ([facility]) complet ed tetanus and diphtheri a toxoids, adsorbed, preservat baldo free, for adult use (2 Lf of tetanus toxoid and 2 Lf of diphtheri a toxoid) DoD influenza virus vaccine,split 2003 Left Arm [id number] 15 sanofi pasteur complet ed influenza virus vaccine,s plit 05/16/04 Given Ambulat ory Pharmac y influenza virus vaccine, split virus (incl. purified surface antigen)-reti red CODE 1 2003 Unknown, Provider [id number] 15 Sanofi Pasteur ([facility]) complet ed influenza virus vaccine, split virus (incl. purified surface antigen)- retired CODE DoD influenza virus vaccine,split 2002 Left Thigh [id number] 15 Novartis Pharmaceutica ls complet ed influenza virus vaccine,s plit 05/09/03 Given Ambulat ory Pharmac y influenza virus vaccine, split virus (incl. purified surface antigen)-reti red CODE 1 2002 Unknown, Provider [id number] 15 PowderJect Pharmaceutica ls (PWJ) complet ed influenza virus vaccine, split virus (incl. purified surface antigen)- retired CODE [facility] tetanus-dipht h toxoids (Td) adult/adol 2002 Left Arm [id number] 09 sanofi pasteur complet ed tetanus-d iphth toxoids (Td) adult/ado l 02/02/03 Given Ambulat ory Pharmac y tetanus and diphtheria toxoids, adsorbed, preservative free, for adult use (2 Lf of tetanus toxoid and 2 Lf of diphtheria toxoid) 1 2002 Unknown, Provider [id number] 09 Shaunofi Pasteur ([facility]) complet ed tetanus and diphtheri a toxoids, adsorbed, preservat baldo free, for adult use (2 Lf of tetanus toxoid and 2 Lf of diphtheri a toxoid) DoD influenza virus vaccine, whole virus 2002 Left Arm [id number] 16 sanofi pasteur complet ed influenza virus vaccine, whole virus 06/08/02 Given Ambulat ory Pharmac y influenza virus vaccine, whole virus 1 2002 Unknown, Provider [id number] 16 Sanofi Pasteur ([facility]) complet ed influenza virus vaccine, whole virus DoD influenza virus vaccine, whole virus 2000 [id number] 16 sanofi pasteur complet ed influenza virus vaccine, whole virus 05/20/01 Given Ambulat ory Pharmac y influenza virus vaccine, whole virus 1 2000 Unknown, Provider [id number] 16 Sanofi Pasteur ([facility]) complet ed influenza virus vaccine, whole virus [...] katz. Performed by: Epidemiolog y Laboratory [facility] [id number] [place] [phone] [facility] Pharm[facility] Chemistr y Glucose Lvl [...] Clinical Albuminuria (>300 MCG/MG Creatinine) . The [place] [employer] position statement on Diabetic Nephropathy states that Microalbumi trip is present if the Microalbumi n/Creatinin e ratio exceeds 30 MCG/MG Creatinine. The classificat ion of a patient should be based upon at least 2 of 3 abnormal results on specimens collected within a 3 to 6 month time frame. [facility] Hematolo gy WBC 6.54 10^3/uL 4.23 - 9.34222 06/30 N [facility] Pharm[facility] Hematolo gy RBC 5.13 10^6/uL 4.63 - 6.40818 06/30 N [facility] Pharmacy Hematolo gy [...] Hematolo gy Platelets 209 10^3/uL 163 - [id number] 06/30 N [facility] Pharmacy Hematolo gy [...] gy Neutro Absolute 3.99 10^3/uL 1.78 - 5.85361 06/30 N [facility] Hematolo gy Lymph Absolute 1.66 10^3/uL 1.32 - 3.27134 06/30 N [facility] Hematolo gy Bracken Absolute 0.74 10^3/uL 0.30 - 0.99904 06/30 N [facility] Pharm[facility] Hematolo gy Eos Absolute 0.12 10^3/uL 0.04 - 0.21328 06/30 N [facility] Pharm[facility] Hematolo gy Baso Absolute 0.03 10^3/uL 0.01 - 0.19969 06/30 N [facility] Pharmacy Chemistr y [...] to represent clinical deficiency. Performed At: [address] [id number] Ajit Swift MD Ph:[phone] [facility] Pharmacy Chemistr y Ferritin.E PI 206 ng/mL 06/11 Result Comment: INTERPRETAT ION(S): Performed by: [facility] [id number] [place] [phone] [facility] Pharmacy Chemistr y Iron.EPI 97 ug/dL 06/11 Result Comment: INTERPRETAT ION(S): Performed by: [facility] [address] [place] [phone] [facility] Pharmacy Chemistr y Iron Binding Capacity Total.EPI 283 ug/dL 06/11 [facility] Pharmacy Chemistr y Iron Binding Capacity Unsat.EPI 186 ug/dL 06/11 Amb[facility] Pharmacy Chemistr y Transferri n Saturation .EPI 34 % 06/11 [facility] Hematolo gy WBC 5.54 10^3/uL 4.23 - 9.13249 06/11 N [facility] Pharm[facility] Hematolo gy RBC 5.42 10^6/uL 4.63 - 6.09397 06/11 N [facility] Pharmacy Hematolo gy [...] Hematolo gy Platelets 221 10^3/uL 163 - [id number] 06/11 N [facility] Pharmacy Hematolo gy [...] gy Neutro Absolute 3.17 10^3/uL 1.78 - 5.80835 06/11 N [facility] Hematolo gy Lymph Absolute 1.64 10^3/uL 1.32 - 3.42019 06/11 N [facility] Hematolo gy Bracken Absolute 0.57 10^3/uL 0.30 - 0.11638 06/11 N [facility] Hematolo gy Eos Absolute 0.13 10^3/uL 0.04 - 0.41937 06/11 N [facility] Pharm[facility] Hematolo gy Baso Absolute 0.03 10^3/uL 0.01 - 0.48095 06/11 N Amb[facility] y Pharmacy Encounters Combined list of: 1) Encounters from Department of Veterans Affairs facilities going back up to thelast 18 months. 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 Location Location Details Encounter Type Encounter Number Reason For Visit Attending Provider ADM Date DC Date Status Disposition Source [facility] Batsheva weiss([facility] Optometry Clinic) OUTPATIENT [id number] vision changes GURPREET LUCAS 06/20 Released w/o Limitations [facility] Mark gallo([facility] C Optomet ry Clinic) [facility] [id number] F/U LT KNEE AND LT SHOULDE R LUIS MANUEL HORVATH 04/21 Released w/o Limitations [facility] Mark sabino([facility] F[facility] Prac [facility]) [facility] n([facility] Fam Prac Clinic) TELE CONSULT [id number] WANT RESULT OF M.R.I PCM DR ANGY POOLE-KIAN HUSTON 05/13 [facility] [place]([facility]) [facility] TELE CONSULT [id number] MRI LUIS MANUEL TRAVIS 05/18 [facility] [place]([facility] F[facility]) [facility] isela([facility] Orthopedi c Clinic) OUTPATIENT [id number] left shoulde r pain LIANG RICE 07/06 Released with Work/Duty Limitations [facility] [place]([facility] C Orthope dic Clinic) [facility] Physical Therapy) OUTPATIENT [id number] left knee pain ASHLEY CARRINGTON R S 07/08 Released w/o Limitations [facility] [place]([facility] C Physica l Therapy ) [facility] n([facility] Physical Therapy) OUTPATIENT [id number] ASHLEY CARRINGTON S 08/03 Released w/o Limitations [facility] [place]([facility] C Physica l Therapy ) [facility] n([facility] Orthopedi c Clinic) OUTPATIENT [id number] fu appt - left shoulde r LIANG Hopkins 08/03 Released with Work/Duty Limitations [facility] [place]([facility] C Orthope dic Clinic) [facility] Orthopedi c Clinic) OUTPATIENT [id number] left knee pain BELEN ARNDT P 08/17 Released w/o Limitations [facility] [place]([facility] C Orthope dic Clinic) [facility] n([facility] Orthopedi c Clinic) OUTPATIENT [id number] L knee pain chronic BELEN ARNDT P 11/03 Released w/o Limitations [facility] [place]([facility] C Orthope dic Clinic) [facility] n([facility] Fam Prac Clinic) TELE CONSULT [id number] LEFT HEEL MARLENI ZAVALETA 03/12 [facility] [place]([facility]) [facility] n([facility]) TELE CONSULT [id number] Rx KERMIT Richardson 03/29 [facility] [place]([facility]) [facility] n([facility]) TELE CONSULT [id number] Team phone- Juanito- JAYLON Rincon 10/27 [facility] [place]([facility]) [facility] n([facility]) OUTPATIENT [id number] physica JAYLON Francis 11/23 Released w/o Limitations [facility] [place]([facility]) [facility] n([facility]) OUTPATIENT [id number] f/u diabete JAYLON Ramos 12/17 Released w/o Limitations [facility] [place]([facility]) [facility] n([facility]) OUTPATIENT [id number] f/u diabete s AJYLON Vaca 01/14 Released w/o Limitations [facility] [place]([facility]) [facility]) OUTPATIENT [id number] needs new script wa taking acifex. MERVIN GONCALVES 03/29 Released w/o Limitations [facility] [place]([facility]) [facility] n([facility]) TELE CONSULT [id number] Medicat ion RefGABI Chi 06/23 [facility] [place]([facility]) [facility] n([facility]) TELE CONSULT [id number] base on FMP Martínez Toribio is the pt and he has light headnes MERVIN Castellanos 07/20 [facility] [place]([facility]) [facility] n([facility]) OUTPATIENT [id number] diabeti c fol up; labs MERVIN Ackerman 07/22 Released w/o Limitations [facility] [place]([facility]) [facility] [place] n([facility]) OUTPATIENT [id number] med refill MERVIN GONCALVES 08/10 Released w/o Limitations [facility] [place]([facility]) [facility] n([facility]) TELE CONSULT [id number] team phone-- Katina- -Pt having abdomin al upset MERVIN GONCALVES 09/19 [facility] [place]([facility]) [facility] n([facility]) TELE CONSULT [id number] med refills [phone] MARK MONET W 04/17 [facility] [place]([facility]) [facility] n([facility]) TELE CONSULT [id number] med refill BETTE RUSSO 05/14 [facility] [place]([facility]) [facility] n([facility]) OUTPATIENT [id number] lab review MARK MONET W 05/29 Released w/o Limitations [facility] [place]([facility]) [facility] n([facility] Nutrition [facility]) OUTPATIENT [id number] JACK MAC 07/03 Released w/o Limitations [facility] [place]([facility] B Nutriti on Clinic) [facility] n([facility]) TELE CONSULT [id number] glucofa ge refill MARK MONET 10/24 [facility] [place]([facility]) [facility] n([facility]) OUTPATIENT [id number] diabeti c check [facility] 11/14 Released w/o Limitations [facility] [place]([facility]) [facility] n([facility]) TELE CONSULT [id number] med refill SCOTTIE ANAND 12/07 [facility] [place]([facility]) [facility] n([facility]) TELE CONSULT [id number] Team phone- refill Nexium 20mg, [phone] GABRIELLA RIDER 03/18 Referred for Appointment [facility] [place]([facility]) [facility] n([facility]) TELE CONSULT [id number] EXTREME LOWER ABDOMIN AL PRESSUR E. HAD NORMAL BM TODAY. CALL [phone]. SEJAL POTTER 06/06 Referred- Emergency Department [facility] [place]([facility]) [facility] n([facility]) TELE CONSULT [id number] PER E R HE HAS A 6MM KIDNEY STONE AND NEEDS UROLOGY REF. CALL [phone] RANDY VERONICAFRANK GABRIELLA BROOKLYN 06/07 Referred for Appointment [facility] [place]([facility] B Fam Prac [facility]) [facility] n([facility]) TELE CONSULT [id number] meds out for blood pressur e, diabete s has been w/o for 2 days, refill IESHA Tyson 07/16 Referred for Appointment [facility] [place]([facility] B Fam Prac [facility]) [facility] n([facility]) TELE CONSULT [id number] [facility] pt EST for Sep 16. Pt out of BP medicat ion/603 [id number] [facility] SCOTTIE ANAND 09/03 Referred for Appointment [facility] [place]([facility] B Fam Prac Clinic) [facility]) OUTPATIENT [id number] EST for labs and medicat ions. Pt states labs done already MARK MONET 09/13 Released w/o Limitations [facility] [place]([facility]) [facility] Cardiolog y Clinic) OUTPATIENT [id number] FEET PAIN MARIE BISWAS 02/10 Released w/o Limitations [facility] [place]([facility] C Cardiol ogy Clinic) [facility] n([facility] Cardiolog y Clinic) TELE CONSULT [id number] PT CALLED AND SAID THAT HE WAS SEEN IN SUM[place] GARRICK PAIGE [facility] FOR NANCY CRABTREE 03/19 [facility] Mark sabino([facility] C Cardiol ogy Clinic) [facility] n([facility] Cardiolog y Clinic) OUTPATIENT [id number] MARIE BISWAS 03/24 Released w/o Limitations [facility] [place]([facility] C Cardiol ogy Clinic) [facility] Batsheva weiss([facility] Cardiolog y Clinic) OUTPATIENT [id number] EKG abnorma LIZ Sandoval 03/25 Released w/o Limitations [facility] Makr gallo([facility] C Cardiol ogy Clinic) [facility] Bats[facility]va weiss([facility] Cardiolog y Clinic) TELE CONSULT [id number] [facility] NANCY TREVINO 03/31 [facility] [place]([facility] C Cardiol ogy Clinic) [facility] Batsheva weiss([facility] Cardiolog y Clinic) TELE CONSULT [id number] results in clinica MARIE Johnson 04/02 [facility] Mark [place]([facility] C Cardiol ogy Clinic) [facility] Batsheva weiss([facility] Cardiolog y Clinic) TELE CONSULT [id number] results in clinica MARIE Johnson 04/03 [facility]o([facility] C Cardiol ogy Clinic) [facility] weiss([facility] Cardiolog y Clinic) TELE CONSULT [id number] PT NEED REFILLS ON THE FOLLOWI NG: ZOCOR20 MG/ NEXIUM 20MG/ LOTREL JOANNA 520MG/ GLU NANCY TREVINO 04/09 [facility] [place] C Cardiol ogy Clinic) [facility] weiss([facility] Dermatolo gy Clinic) OUTPATIENT [id number] skin: a rash [as Sx] FREDRICK WATKINS 04/16 Released w/o Limitations [facility] C Dermato logy Clinic) [facility] weiss([facility] Cardiolog y Clinic) OUTPATIENT [id number] labs/ek g/l foot MARIE BISWAS 04/30 Released w/o Limitations [facility] [place] C Cardiol ogy Clinic) [facility] weiss([facility]) OUTPATIENT [id number] pneumon ia .5cc im l deltoid JANEE SINGH 04/30 Released w/o Limitations [facility] sabino([facility] Occupat [facility]) [facility] [facility] Cardiolog y Clinic) TELE CONSULT [id number] results in clinica l notes MARIE BISWAS 06/26 [facility] [place] C Cardiol ogy Clinic) [facility] [place]([facility] Dermatolo gy Clinic) OUTPATIENT [id number] LN2 VS FREDRICK GARCIA 06/30 Released w/o Limitations [facility] [place]([facility] Dermato logy Clinic) [facility] [place]([facility] Cardiolog y Clinic) TELE CONSULT [id number] results in clinica l notes. MARIE BISWAS 07/11 [facility] [place]([facility] Cardiol ogy Clinic) [facility] [place]([facility] Cardiolog y Clinic) TELE CONSULT [id number] results in clinica l notes. MARIE BISWAS 07/14 [facility] [place]([facility] Cardiol ogy Clinic) [facility] [place] n([facility] Cardiolog y Clinic) TELE CONSULT [id number] results in clinica l notes MARIE BISWAS 08/22 [facility] [place]([facility] Cardiol ogy Clinic) [facility] [place]([facility] Cardiolog y Clinic) OUTPATIENT [id number] semi annual ck MARIE BISWAS 09/19 Released w/o Limitations [facility] [place]([facility] Cardiol ogy Clinic) [facility] [place]([facility] Cardiolog y Clinic) TELE CONSULT [id number] lab results MARIE BISWAS 09/26 [facility] [place]([facility] Cardiol ogy Clinic) [facility] [place]([facility] Cardiolog y Clinic) TELE CONSULT [id number] appt request LAMONTE MITCHELL 10/16 [facility] [place] C Cardiol ogy Clinic) [facility] [place] [facility]) TELE CONSULT [id number] pt is having surgery and the Dr wants him to go to physica therapy JAMAR Sun 11/18 [facility] [place]([facility] Fam [facility]) [facility] Med [facility] Gold) TELE CONSULT [id number] patient is request ing joe cornell for physica l therapy ZANAKMLUIS DECKER 11/18 [facility] [place]([facility]) [facility] Fam [facility]) TELE CONSULT [id number] Orthopa edic results 011 BETTY BISWASANN 11/20 [facility] [place]([facility] Fam [facility]) [facility]) TELE CONSULT [id number] STEVE MENDENHLAL 01/12 [facility] [place]([facility] F[facility]) [facility]) OUTPATIENT [id number] Physica l exam RAFAELA BISWASRYANN 02/25 Released w/o Limitations [facility] [place] F[facility]) [facility] we[facility]) TELE CONSULT [id number] Notes Entered by: CAROLYN CASTANEDA 22 Sep 2011 1015 ------- ------- ------- ------- -- Orthope dic surgery JAMAR Correia 09/21 [facility] [place] Fam [facility]) [facility] Fam Med [facility]) TELE CONSULT [id number] Notes Entered by: CAROLYN CASTANEDA 13 Oct 2011 1358 ------- ------- ------- ------- -- ReferJAMAR Quinones 10/12 [facility] [place]([facility] Fam Med [facility]) [facility] Dermatolo gy Clinic) OUTPATIENT [id number] F/U CONSULT FREDRICK WATKINS 11/11 Released w/o Limitations [facility] [place]([facility] Dermato logy Clinic) [facility] isela([facility]) TELE CONSULT [id number] Notes Entered by: MAKAYLA BARTON 02 Feb 2013 1041 ------- ------- ------- ------- -- Refill of Meds/ Crestor /Nexium /Janume t and Lotrel/ Cdr Marilee Patient KHUSHBU RAMIREZ Chiquita 02/02 [facility] [place]([facility] Fam [facility]) [facility] weiss([facility]) TELE CONSULT [id number] Notes Entered by: GAGE SPENCER 08 Feb 2013 1517 ------- ------- ------- ------- -- PT needs refills QUINN COPE 02/08 [facility] [place]([facility] Fam [facility]) [facility] weiss([facility]) TELE CONSULT [id number] Notes Entered by: MAKAYLA BARTON 09 Mar 2013 1142 ------- ------- ------- ------- -- Missed appt today at 1125 because he was out of town/Wa nts to be seen today KHUSHBU RAMIREZ Chiquita 03/09 [facility] [place] F[facility]) [facility] isela([facility]) OUTPATIENT [id number] new pt(labs /meds) QUINN COPE 03/14 Released w/o Limitations [facility] [place]([facility]) [facility]) OUTPATIENT [id number] f/u labs QUINN COPE 03/20 Released w/o Limitations [facility] [place]([facility] Fam Med [facility]) [facility] isela([facility] Case Managemen t) OUTPATIENT [id number] Notes Entered by: NARESH ADAME 20 Mar 2013 1207 ------- ------- ------- ------- -- cm for dm NARESH EDEN 03/20 Released w/o Limitations [facility] [place]([facility] Case Managem ent) [facility] [place]([facility]) TELE CONSULT [id number] Notes Entered by: CAROLYN CASTANEDA 05 Apr 2013 1427 ------- ------- ------- ------- -- Request ing joe referra l to neurosu JAMAR Nixon 04/05 [facility] [place] Med MHC Gold) [facility] isela([facility]) OUTPATIENT [id number] MARIE Neri 04/12 Released w/o Limitations [facility] [place]([facility] Med [facility] Gold) [facility]) OUTPATIENT [id number] Notes Entered by: JANEE SINGH 12 Apr 2013 0829 ------- ------- ------- ------- -- JANEE Mathias 04/12 Released w/o Limitations [facility] [place]([facility]) [facility] [place]([facility]) TELE CONSULT [id number] Notes Entered by: TIMA ORDONEZ 19 Apr 2013 0925 ------- ------- ------- ------- -- Pain Special ists 013 MARIE BISWAS 04/19 [facility] [place]([facility] Med [facility] Gold) [facility] isela([facility]) TELE CONSULT [id number] Notes Entered by: MARTHA PINA 01 Jun 2013 0841 ------- ------- ------- ------- -- 11 MAY 2013 [facility] MARIE BISWAS 06/01 [facility] [place]) [facility] MHC Gold) OUTPATIENT [id number] f/u for lab results MARIE BISWAS 08/16 Released w/o Limitations [facility] [place] Med [facility] Gold) [facility]) OUTPATIENT [id number] Notes Entered by: SUZETTE OROSCO 16 Aug 2013 0909 ------- ------- ------- ------- -- TWINRIX SUZETTE OROSCO 08/16 Released w/o Limitations [facility]) [facility]) OUTPATIENT [id number] Notes Entered by: SONIA ROMERO 18 Sep 2013 0721 ------- ------- ------- ------- -- TWINRIX #2 CHAD PARK 09/18 Released w/o Limitations [facility] [place]) [facility]) TELE CONSULT [id number] Notes Entered by: CAROLYN CASTANEDA 30 Oct 2013 1007 ------- ------- ------- ------- -- appoint JAMAR Browning 10/30 [facility] [place]([facility] Fam Med [facility] Gold) [facility] Mark n([facility]) OUTPATIENT [id number] f/u appt. MARIE BISWAS 10/31 Released w/o Limitations [facility] [place]([facility] Fam Med [facility]) [facility] n([facility]) TELE CONSULT [id number] Notes Entered by: ZEE COMER 10 Nov 2013 0719 ------- ------- ------- ------- -- lost glucome ter, needs replace silvia JAMAR CASTANEDA 11/10 Medication Refill Forwarded [facility] [place] Fam Med [facility]) [facility] isela([facility] Optometry Clinic) OUTPATIENT [id number] DIABETE S MELLITU S TYPE 2 - UNCOMPL ICATED, CONTROL LED MARTÍNEZ CHU 12/13 Released w/o Limitations [facility] [place] Optomet ry Clinic) [facility] isela([facility]) TELE CONSULT [id number] Notes Entered by: Toby BOWEN 17 Jan 2014 1345 ------- ------- ------- ------- -- MARIE Olmedo 01/17 [facility] [place] Med [facility] Gold) [facility]ef[facility] weiss([facility]) OUTPATIENT [id number] Notes Entered by: LISA HO 16 Feb 2014 0816 ------- ------- ------- ------- -- LISA BARTLETT 02/16 Released w/o Limitations [facility] [place]) [facility]) OUTPATIENT [id number] F/U DIABETI C AND MARIE ADAMS 02/19 Released w/o Limitations [facility] [place]([facility] Med [facility] Gold) [facility] isela([facility]) TELE CONSULT [id number] Notes Entered by: CAROLYN CASTANEDA 05 Mar 2014 1348 ------- ------- ------- ------- -- Urology JAMAR Correia 03/05 Referred for Appointment [facility] [place]([facility] Fam Med [facility]) [facility] isela([facility]) TELE CONSULT [id number] Notes Entered by: MAREN CHAPA 05 Mar 2014 1508 ------- ------- ------- ------- -- Network Results - Radiolo gy 03/03/14 TRUE MARIE 03/05 [facility] [place]([facility] Fam Med [facility]) [facility] weiss([facility]) TELE CONSULT [id number] Notes Entered by: VERONIKA NOYOLA 06 Mar 2014 0952 ------- ------- ------- ------- -- Network Results : Urology 03/05/14 KIRKKURTRACHNAMARIE 03/06 [facility] Fam [facility]) [facility] weiss([facility]) TELE CONSULT [id number] Notes Entered by: SELENA FRANCO 08 Mar 2014 1446 ------- ------- ------- ------- -- Network Results - [facility] 03/03/14 TRUEMARIE 03/08 [facility] Fam [facility]) [facility]ef[facility] weiss([facility]) TELE CONSULT [id number] Notes Entered by: SELENA FRANCO 13 Mar 2014 1606 ------- ------- ------- ------- -- Network Results - [facility] 03/03/14 TRUEMARIE 03/13 [facility] Fam Med [facility]) [facility] weiss([facility] Dermatolo gy Clinic) OUTPATIENT [id number] SKIN NEOPLAS M PADMINIA IN FREDRICK LEE 03/23 Released w/o Limitations [facility]([facility] Dermato logy Clinic) [facility] weiss([facility] Dermatolo gy Clinic) OUTPATIENT [id number] EXCISIO N, LEFT MALAR CHEEK@1 400. FREDRICK WATKINS 04/06 Released w/o Limitations [facility] [place]([facility] Dermato logy Clinic) [facility] we[facility] Dermatolo gy Clinic) OUTPATIENT [id number] SUTURE REMOVAL FREDRICK WATKINS 04/12 Released w/o Limitations [facility] [place]([facility] Dermato logy Clinic) [facility] we[facility] Fam Med [facility] Blue) TELE CONSULT [id number] Notes Entered by: VERONIKA NOYOLA 16 Apr 2014 1406 ------- ------- ------- ------- -- Network Results : Urology 4 MARIE BISWAS 04/16 [facility] [place]([facility] Fam Med [facility]) [facility] weiss([facility] Fam Med [facility] Gold) OUTPATIENT [id number] *P- f/u MARIE BISWAS 08/01 Released w/o Limitations [facility]([facility] Fam Med [facility] Gold) [facility] Dermatolo gy Clinic) OUTPATIENT [id number] *P- f/u FREDRICK WATKINS 08/08 Released w/o Limitations [facility] [place] Dermato logy Clinic) [facility] Dermatolo gy Clinic) OUTPATIENT [id number] punch bx, lt nasal dorsum & pulse dye, lt malar cheek @1400 FREDRICK WATKINS 10/02 Released w/o Limitations [facility]([facility] Dermato logy Clinic) [facility] we[facility] Fam Med MHC Gold) OUTPATIENT [id number] F/U HIGH BLOOD PREES, AND DIABETI C MARIE BISWAS 11/09 Released w/o Limitations [facility] [place]([facility] Fam Med [facility] Gold) [facility] weiss([facility] Optometry Clinic) OUTPATIENT [id number] DIABETE S MELLITU S TYPE 2 - UNCOMPL ICATED, CONTROL LED MARTÍNEZ CHU 12/20 Released w/o Limitations [facility] [place] Optomet Clinic) [facility]) OUTPATIENT [id number] Notes Entered by: JANEE SINGH 01 Jan 2015 1205 ------- ------- ------- ------- -- ppd JANEE SINGH 01/01 Released w/o Limitations [facility] [place]([facility]) [facility] n([facility] Fam Med [facility] Gold) OUTPATIENT [id number] 3 month diabete s check up MARIE BISWAS 02/13 Released w/o Limitations [facility] [place]([facility] Fam Med [facility] Gold) [facility] n([facility] Fam Med [facility] Gold) TELE CONSULT [id number] Notes Entered by: BETTY BERMUDEZ 15 Feb 2015 0823 ------- ------- ------- ------- -- CT CHEST MARIE BISWAS 02/15 [facility] [place] Fam Med [facility]) [facility] isela([facility] Fam Med [facility] Gold) TELE CONSULT [id number] Notes Entered by: NARESH URBINA 25 Feb 2015 1403 ------- ------- ------- ------- -- NAL JAMAR Correia 02/25 Medication Refill Forwarded [facility] [place]([facility] Fam [facility]) [facility] isela([facility] Fam Med [facility] Gold) TELE CONSULT [id number] Notes Entered by: Toby BOWEN 13 Mar 2015 1425 ------- ------- ------- ------- -- left knee pain MARIE BISWAS 03/13 [facility] [place] Fam [facility]) [facility] n([facility] Fam Med [facility] Gold) TELE CONSULT [id number] Notes Entered by: ELIZABETH MONTOYA 18 Mar 2015 0825 ------- ------- ------- ------- -- Network Results - Podiatr y 12/31/14 MARIE BISWAS 03/18 [facility] [place]) [facility] Fam Med [facility] Gold) OUTPATIENT [id number] Change in B/P medicat ion F/U Appt. MARIE BISWAS 03/22 Released w/o Limitations [facility] [place] Fam Med [facility] Gold) [facility] isela([facility] Fam Med [facility] Gold) TELE CONSULT [id number] Notes Entered by: ELIZABETH MONTOYA 26 Mar 2015 1535 ------- ------- ------- ------- -- Network Results - Pulmona ry 02/20/15 and 03/06/15 MARIE BISWAS 03/26 [facility] [place] F[facility]) [facility]ela([facility] Fam Med [facility] Gold) TELE CONSULT [id number] Notes Entered by: MIQUEL GUTHRIE 01 Apr 2015 0911 ------- ------- ------- ------- -- Medicat ion JAMAR Ng 04/01 Other Not Elsewhere Classified [facility] [place] Fam [facility]) [facility] isela([facility] Fam Med [facility] Gold) OUTPATIENT [id number] POISON CECELIA MARIE BISWAS 04/04 Released w/o Limitations [facility] [place]([facility] Fam Med [facility] Gold) [facility] n([facility] Fam Med [facility] Gold) TELE CONSULT [id number] Notes Entered by: ELIZABETH MONTOYA 26 Apr 2015 0954 ------- ------- ------- ------- -- Network Results - Rheum and lab 04/04/15 MARIE BISWAS 04/26 [facility] [place]([facility] F[facility]) [facility] Gold) TELE CONSULT [id number] Notes Entered by: ELIZABETH MONTOYA 21 May 2015 1016 ------- ------- ------- ------- -- network results - rheumat ology 05/02/15 MARIE BISWAS 05/21 [facility] [place]([facility] F[facility]) [facility] [place]([facility]) TELE CONSULT [id number] Notes Entered by: BETTY BERMUDEZ 18 Jun 2015 1526 ------- ------- ------- ------- -- HGBA1C 7.2 STEVE MENDENHALL 06/18 Referred for Appointment [facility] [place]([facility] Fam Med [facility]) [facility] [place]) OUTPATIENT [id number] *P f/u for diabete s and renew meds. MARIE BISWAS 06/19 Released w/o Limitations [facility] [place]([facility] Fam Med [facility] Gold) [facility] weiss([facility] Nutrition Clinic) OUTPATIENT [id number] Obesity , unspeci fied LUNDBERG AMBER Justo 06/27 Released w/o Limitations [facility] [place]([facility] Nutriti on Clinic) [facility]) TELE CONSULT [id number] Notes Entered by: PHYLLIS DYE 26 Jul 2015 1003 ------- ------- ------- ------- -- JOSE MARIA Soler 07/26 Referred for Appointment [facility] [place] Fam Med [facility] Gold) [facility] isela([facility] Gold) TELE CONSULT [id number] Notes Entered by: CAROLYN CASTANEDA 12 Aug 2015 0758 ------- ------- ------- ------- -- JAMAR Painter 08/11 Referred for Appointment [facility] [place]([facility] Fam Med [facility] Gold) [facility] Med MHC Gold) TELE CONSULT [id number] Notes Entered by: MAREN CHAPA 13 Aug 2015 0844 ------- ------- ------- ------- -- Network Results - Diaz alcazar 08/10/15 MARIE BISWAS 08/12 [facility] [place] Fam Med [facility]) [facility] Med MHC Gold) TELE CONSULT [id number] Notes Entered by: NARESH URBINA 13 Aug 2015 1115 ------- ------- ------- ------- -- NARESH Crump 08/12 Immediate Referral [facility] [place]([facility] Fam Med [facility] Gold) [facility] Med [facility] Gold) TELE CONSULT [id number] Notes Entered by: CAROLYN CASTANEDA 15 Aug 2015 0845 ------- ------- ------- ------- -- Medicat ion Concern JAMAR CASTANEDA 08/14 Other Not Elsewhere Classified [facility] [place] F[facility]) [facility] Med MHC Gold) TELE CONSULT [id number] Notes Entered by: CAROLYN CASTANEDA 21 Aug 2015 1108 ------- ------- ------- ------- -- MARIE Gonzalez 08/20 [facility] [place] Fam Med [facility] Gold) [facility] Mark n([facility] Med MHC Gold) TELE CONSULT [id number] Notes Entered by: Toby BOWEN 26 Aug 2015 0957 ------- ------- ------- ------- -- FOLLOW UP ER VISIT CALL STEVE OLVERA 08/25 Referred for Appointment [facility] [place]([facility] Med [facility] Gold) [facility] weiss([facility] Gold) TELE CONSULT [id number] Notes Entered by: BRITTNEY TALBOT AL L 27 Aug 2015 1228 ------- ------- ------- ------- -- Network Results -Emerge ncy 08/20/ MARIE BISWAS 08/26 [facility] [place] Gold) [facility]) TELE CONSULT [id number] Notes Entered by: MAREN CHAPA 13 Sep 2015 1012 ------- ------- ------- ------- -- Network Results - Orthope dic 5 MARIE BISWAS 09/12 [facility] [place] Gold) [facility] weiss([facility]) OUTPATIENT [id number] Diabete s check up and med refill MARIE BISWAS 09/19 Released w/o Limitations [facility] [place]([facility] Med MHC Gold) [facility] weiss([facility] Dermatolo gy Clinic) OUTPATIENT [id number] concern ing lesions on face and forearm . FREDRICK WATKINS 10/02 Released w/o Limitations [facility] [place] Dermato logy Clinic) [facility] weiss([facility]) TELE CONSULT [id number] Notes Entered by: BRITTNYE TALBOT AL L 06 Dec 2015 0920 ------- ------- ------- ------- -- Network Results -Neurol ogy 08/13/15 , 08/19/15 , 09/17/15 MARIE BISWAS 12/05 [facility] [place] Fam Med MHC Gold) [facility] isela([facility]) OUTPATIENT [id number] F/U DIABETI C AND MEDS MARIE BISWAS 12/23 Released w/o Limitations [facility] [place]([facility] Fam Med MHC Gold) [facility] isela([facility]) TELE CONSULT [id number] Notes Entered by: BOB MCGREGOR 31 Dec 2015 0752 ------- ------- ------- ------- -- Medicat ion STEVE Miranda 12/30 Referred for Appointment [facility] [place] Fam Med MHC Gold) [facility] isela([facility]) TELE CONSULT [id number] Notes Entered by: Toby BOWEN 05 Feb 2016 0936 ------- ------- ------- ------- -- CT CHEST STEVE OLVERA 02/04 [facility] Mark gallo([facility] Med MHC Gold) [facility] Mark isela([facility] Med MHC Gold) OUTPATIENT [id number] disable mayank garcia MARIE BISWAS 02/10 Released w/o Limitations [facility] Mark gallo([facility] Med MHC Gold) [facility] Mark isela([facility] Med MHC Gold) TELE CONSULT [id number] Notes Entered by: BETTY BERMUDEZ 12 Feb 2016 0750 ------- ------- ------- ------- -- CT CHEST STEVE MENDENHALL 02/11 Referred for Appointment [facility] Mark gallo([facility] Fam Med MHC Gold) [facility] Batsheva isela([facility] Med MHC Gold) OUTPATIENT [id number] *P-diab etic checkup /Med. refills MARIE BISWAS 04/01 Released w/o Limitations [facility] Mark gallo([facility] Fam Med MHC Gold) [facility] Mark isela([facility] Med MHC Gold) TELE CONSULT [id number] Notes Entered by: BETTY BERMUDEZ 02 Jul 2016 1039 ------- ------- ------- ------- -- HGBA1C 7 STEVE MENDENHALL Moshe 07/02 Referred for Appointment [facility] Mark gallo([facility] Fam Med MHC Gold) [facility] Med MHC Gold) OUTPATIENT [id number] f/u A1c per MARIE Underwood 07/03 Released w/o Limitations [facility] Mark gallo([facility] Fam Med MHC Gold) [facility] Nutrition [facility]) OUTPATIENT [id number] Other synovit is and tenosyn ovitis, left hand AUGUSTINE ARMSTRONG 07/13 Released w/o Limitations [facility] Mark gallo([facility] Nutriti on Clinic) [facility] Med MHC Gold) TELE CONSULT [id number] Notes Entered by: PHYLLIS DYE 23 Jul 2016 0830 ------- ------- ------- ------- -- ReferSTEVE Ibarra 07/23 Referred for Appointment [facility] Mark gallo([facility] Fam Med MHC Gold) [facility] Mark isela([facility] MHC Gold) TELE CONSULT [id number] Notes Entered by: Toby BOWEN 28 Jul 2016 1000 ------- ------- ------- ------- -- CT CHEST STEVE OLVERA 07/28 Referred for Appointment [facility] Mark gallo([facility] Fam Med MHC Gold) [facility] MHC Gold) TELE CONSULT [id number] Notes Entered by: BETTY BERMUDEZ 12 Aug 2016 0657 ------- ------- ------- ------- -- CT CHEST STEVE OLVERA 08/12 Referred for Appointment [facility] Mark sabino([facility] Med MHC Gold) [facility] Markstefany weiss([facility] MHC Gold) OUTPATIENT [id number] possibl e kidney stone TRUEMARIE 10/06 Released w/o Limitations [facility] Mark sabino([facility]am Med MHC Gold) [facility] Markstefany weiss([facility] Gold) TELE CONSULT [id number] Notes Entered by: BETTY BERMUDEZ 06 Oct 2016 1216 ------- ------- ------- ------- -- LABWORK /CT SCAN MARIE BISWAS 10/06 [facility] Mark sabino([facility] Fam Med MHC Gold) [facility] Markstefany weiss([facility] MHC Gold) OUTPATIENT [id number] LORI Newberry 11/16 Released w/o Limitations [facility] Mark sabino([facility] Med MHC Gold) [facility] Markstefany weiss([facility] [place] [facility]) TELE CONSULT [id number] Notes Entered by: SUSANNA GASCA 15 Dec 2016 1330 ------- ------- ------- ------- -- Service not yet rendere d for Orthope dics, Februar y 2016 LORI SHAW 12/15 [facility] Mark sabino([facility] Fam Med MHC Blue) [facility] Markstefany weiss([facility] Dermatolo gy Clinic) OUTPATIENT [id number] Rash and other nonspec ific skin eruptio n CHRISTAL LEDESMA 01/04 Released w/o Limitations [facility] Mark gallo([facility] Dermato logy Clinic) [facility] Batsheva weiss([facility] Dermatolo gy Clinic) OUTPATIENT [id number] punch, left cheek CHRISTAL LEDESMA 01/12 Released w/o Limitations [facility] Mark gallo([facility] Dermato logy Clinic) [facility] F[facility] Med MHC Gold) TELE CONSULT [id number] Notes Entered by: ROMAN JASSO 13 Jan 2017 1334 ------- ------- ------- ------- -- Network Results -gi- LORI SHAW 01/13 [facility] Mark gallo([facility] Fam Med MHC Gold) [facility] Markstefany n([facility] Dermatolo gy Clinic) OUTPATIENT [id number] suture removal CHRISTAL LEDESMA 01/20 Released w/o Limitations [facility] Mark gallo([facility] Dermato logy Clinic) [facility] Batsheva n([facility] Fam Med MHC Gold) TELE CONSULT [id number] Notes Entered by: ROMAN JASSO 2017 1341 ------- ------- ------- ------- -- Network Results -gi-04/16 LORI SHAW 02/04 [facility] Mark gallo([facility] Fam Med MHC Gold) [facility] Markstefany weiss([facility] Fam Med MHC Gold) OUTPATIENT [id number] diabete s f/u LORI SHAW 02/16 Released w/o Limitations [facility] Mark gallo([facility] Fam Med MHC Gold) [facility] Markstefany n([facility] Dermatolo gy Clinic) OUTPATIENT [id number] PDT FACE/EA RS to come in at 0800 CHRISTAL LEDESMA 02/19 Released w/o Limitations [facility] Mark gallo([facility] Dermato logy Clinic) [facility] Markstefany weiss([facility] Nutrition [facility]) OUTPATIENT [id number] Type 2 diabete s mellitu s without complic atAUGUSTINE Bermudez 03/02 Released w/o Limitations [facility] Mark gallo([facility] Nutriti on Clinic) [facility] Markstefany n([facility] Fam Med MHC Gold) TELE CONSULT [id number] Notes Entered by: ELICIA OROZCO 11 Mar 2017 1433 ------- ------- ------- ------- -- Network Results -Gastro enterol ogy 02/10/17 LORI SHAW 03/11 [facility] Mark gallo([facility] Fam Med MHC Gold) [facility] Batsheva weiss([facility] Fam Med MHC Gold) TELE CONSULT [id number] Notes Entered by: BRITTNEY TALBOT 17 Mar 2017 1058 ------- ------- ------- ------- -- Network Results -PT 7 LORI SHAW 03/17 [facility] Mark gallo([facility] Fam Med MHC Gold) [facility] D[facility]) OUTPATIENT [id number] 2nd PDT CHRISTAL LEDESMA 04/01 Released w/o Limitations [facility] Mark gallo([facility] Dermato logy Clinic) [facility] Batsheva weiss([facility] Fam Med MHC Gold) TELE CONSULT [id number] Notes Entered by: ELICIA OROZCO 07 Apr 2017 1124 ------- ------- ------- ------- -- Network Results -PT 7 LORI SHAW 04/07 [facility] Mark gallo([facility] Fam Med MHC Gold) [facility] Mark isela([facility] Fam Med MHC Gold) TELE CONSULT [id number] Notes Entered by: DANK GARCIA 16 Apr 2017 1326 ------- ------- ------- ------- -- Network Results - Physicjoe l Therapy 7 LORI SHAW 04/16 [facility] Mark gallo([facility] Fam Med MHC Gold) [facility] isela([facility] Med MHC Blue) TELE CONSULT [id number] Notes Entered by: SUSANNA GASCA 29 Jun 2017 1334 ------- ------- ------- ------- -- Service not yet rendere mayank for [place], 2016 LORI SHAW 06/29 [facility] Mark gallo([facility] Fam Med MHC Blue) [facility] Markstefany n([facility] Gold) TELE CONSULT [id number] Notes Entered by: Toby BOWEN 30 Jun 2017 1126 ------- ------- ------- ------- -- STEVE GEORGES 06/30 Referred for Appointment [facility] Mark gallo([facility] Fam Med MHC Gold) [facility] isela([facility] Med MHC Gold) OUTPATIENT [id number] F/U LORI SHAW 07/08 Released w/o Limitations [facility] Mark gallo([facility] Fam Med MHC Gold) [facility] Charlesstefany weiss([facility] Dermatolo gy Clinic) OUTPATIENT [id number] F/U skin check CHRISTAL LEDESMA 07/09 Released w/o Limitations [facility] Mark gallo([facility] Dermato logy Clinic) [facility] n([facility] MHC Gold) TELE CONSULT [id number] Notes Entered by: LORI COULTER 20 Jul 2017 1611 ------- ------- ------- ------- -- Please call patient STEVE OLVERA 07/20 Released w/o Limitations [facility] Mark gallo([facility] Fam Med MHC Gold) [facility] n([facility] MHC Gold) TELE CONSULT [id number] Notes Entered by: MIQUEL GUTHRIE 23 Sep 2017 0918 ------- ------- ------- ------- -- Request Diabeti c STEVE Georges 09/23 Referred for Appointment [facility] Mark sabino([facility] F[facility] Med MHC Gold) [facility]) OUTPATIENT [id number] spreadi ng itchy rash lower legs/ I know it's posion LORI Rodriguez 09/27 Released w/o Limitations [facility] Mark gallo([facility] MHC Gold) [facility]) TELE CONSULT [id number] Notes Entered by: Toby MENDENHALL 17 Nov 2018 1214 ------- ------- ------- ------- -- hedis - A1c STEVE MENDENHALL 11/17 Referred for Appointment [facility] Mark gallo([facility] Gold) [facility]) TELE CONSULT [id number] Notes Entered by: Toby MENDENHALL 07 Mar 2019 1157 ------- ------- ------- ------- -- A1c- STEVE Serrano 03/07 Released to Self Care [facility] Mark gallo([facility] Gold) [facility]) TELE CONSULT [id number] Notes Entered by: Toby BOWEN 08 Mar 2020 1133 ------- ------- ------- ------- -- PHILL/ STEVE PLUNKETT 03/08 Released to Self Care [facility] Mark gallo([facility] Fam Med MHC Gold) [facility]) TELE CONSULT [id number] Notes Entered by: YOHANNES JENSEN 25 Mar 2020 1056 ------- ------- ------- ------- -- VIPUL ASIF 03/25 Referred for Appointment [facility] Mark gallo([facility] Med MHC Blue) [facility] [place] [facility]) TELE CONSULT [id number] Notes Entered by: Toby BOWEN 03 Sep 2021 0931 ------- ------- ------- ------- -- STEVE VAZQUEZ 09/03 Other Not Elsewhere Classified [facility] Mark gallo([facility] Med MHC Gold) [facility] Batsheva weiss([facility] MHC Gold) TELE CONSULT [id number] Notes Entered by: Toby BOWEN 14 Nov 2021 0910 ------- ------- ------- ------- -- STEVE VAZQUEZ 11/14 Other Not Elsewhere Classified [facility] Mark gallo([facility] MHC Gold) Procedures Combined list of: 1) Procedures from Department of Veterans Affairs facilities going back up to thelast 18 months, not all VA non-surgical procedures are included; 2) All procedures from the Department of Defense facilities. Procedure Procedure Type Code Date Perfomer Comments [facility]ox No data available for this [...] NUTRITION THERAPY; INITIAL ASSESSMENT AND INTERVENTION, INDIVIDUAL, [id number] WITH THE PATIENT, EACH 15 MINUTES 2016 DoD PHOTODYNAMIC THERAPY BY EXTERNAL APPLICATION OF LIGHT TO DESTROY PREMALIGNANT LESIONS OF THE SKIN AND ADJACENT MUCOSA WITH APPLICATION AND ILLUMINATION/ACTIVA TION OF PHOTOSENSITIVE DRUG(S), PER DAY 2016 DoD BIOPSY OF SKIN, SUBCUTANEOUS TISSUE AND/OR MUCOUS MEMBRANE (INCLUDING SIMPLE CLOSURE), UNLESS OTHERWISE LISTED; SINGLE LESION 2016 DoD MEDICAL NUTRITION THERAPY; INITIAL ASSESSMENT AND INTERVENTION, INDIVIDUAL, [id number] WITH THE PATIENT, EACH 15 MINUTES 2016 DoD DESTRUCTION (EG, LASER SURGERY, ELECTROSURGERY, CRYOSURGERY, CHEMOSURGERY, SURGICAL CURETTEMENT), PREMALIGNANT LESIONS (EG, ACTINIC KERATOSES); FIRST LESION 2015 [facility] MEDICAL NUTRITION THERAPY; GROUP (2 OR MORE INDIVIDUAL(S)), EACH 30 MINUTES 2015 [facility] SKIN TEST; TUBERCULOSIS, INTRADERMAL 2014 [facility] DETERMINATION OF REFRACTIVE STATE 2014 [facility] BIOPSY OF SKIN, SUBCUTANEOUS TISSUE AND/OR MUCOUS MEMBRANE (INCLUDING SIMPLE CLOSURE), UNLESS OTHERWISE LISTED; SINGLE LESION 2014 DoD DESTRUCT (EG, LASER SURGERY, ELECTROSURGERY, CRYOSURGERY, CHEMOSURGERY, SURGICAL CURETTEMENT), PREMALIGNANT LESIONS (EG, ACTINIC KERATOSES); 2ND THRU 14 LESIONS, EA (LIST SEP ADDITION CD, 1ST LESION) 2013 DoD REPAIR, COMPLEX, FOREHEAD, CHEEKS, CHIN, MOUTH, NECK, AXILLAE, GENITALIA, HANDS AND/OR FEET; 2.6 CM TO 7.5 CM 2013 [facility] BIOPSY OF SKIN, SUBCUTANEOUS TISSUE AND/OR MUCOUS MEMBRANE (INCLUDING SIMPLE CLOSURE), UNLESS OTHERWISE LISTED; SINGLE LESION 2013 DoD IMMUNIZATION ADMINISTRATION (INCLUDES PERCUTANEOUS, INTRADERMAL, SUBCUTANEOUS, OR INTRAMUSCULAR INJECTIONS); 1 VACCINE (SINGLE OR COMBINATION VACCINE/TOXOID) 2013 [facility] OPHTHALMOLOGICAL SERVICES: MEDICAL EXAMINATION AND EVALUATION WITH INITIATION OF DIAGNOSTIC AND TREATMENT PROGRAM; COMPREHENSIVE, NEW PATIENT, 1 OR MORE VISITS 2013 DoD IMMUNIZATION ADMINISTRATION (INCLUDES PERCUTANEOUS, INTRADERMAL, SUBCUTANEOUS, OR INTRAMUSCULAR INJECTIONS); 1 VACCINE (SINGLE OR COMBINATION VACCINE/TOXOID) 2013 DoD IMMUNIZATION ADMINISTRATION (INCLUDES PERCUTANEOUS, INTRADERMAL, SUBCUTANEOUS, OR INTRAMUSCULAR INJECTIONS); 1 VACCINE (SINGLE OR COMBINATION VACCINE/TOXOID) 2013 [facility] TETANUS, DIPHTHERIA TOXOIDS AND ACELLULAR PERTUSSIS VACCINE (TDAP), WHEN ADMINISTERED TO INDIVIDUALS 7 YEARS OR OLDER, FOR INTRAMUSCULAR USE 2012 [facility] COORDINATED CARE FEE, MAINTENANCE RATE 2012 DoD DESTRUCT (EG, LASER SURGERY, ELECTROSURGERY, CRYOSURGERY, CHEMOSURGERY, SURGICAL CURETTEMENT), PREMALIGNANT LESIONS (EG, ACTINIC KERATOSES); 2ND THRU 14 LESIONS, EA (LIST SEP ADDITION CD, 1ST LESION) 2011 [facility] ELECTROCARDIOGRAM, ROUTINE ECG WITH AT LEAST 12 [...] 12 LEADS; WITH INTERPRETATION AND REPORT 2004 [facility] FITTING OF SPECTACLES, EXCEPT FOR APHAKIA; MONOFOCAL 2004 [facility] INJECTION, TRIAMCINOLONE ACETONIDE, NOT OTHERWISE SPECIFIED, 10 MG 2002 DoD NONINVASIVE EAR OR PULSE OXIMETRY FOR OXYGEN SATURATION; SINGLE DETERMINATION 2001 [facility] DETERMINATION OF REFRACTIVE STATE 2000 [facility] Dermatological Surgery Electrode & Curettage Second Lesion Dermatological Surgery Electrodess & Curettage Second Lesion 32905 2017 CHRISTAL LEDESMA [facility] Destruction Of Premalignant Lesion By Any Method One Lesion Destruction Of Premalignant Lesion By Any Method One Lesion 31554 2017 CHRISTAL LEDESMA [facility] Photodynamic Therapy By External Light 2016 CHRISTAL LEDESMA [facility] Medical Nutrition Therapy Initial A e ment And Intervention Each 15 Minutes Medical Nutrition Therapy Initial Assessment And Intervention Each 15 Minutes 19137 2016 AUGUSTINE ARMSTRONG Photodynamic Therapy By External Light 2016 CHRISTAL LEDESMA Biopsy Skin Biopsy Skin 36691 2016 CHRISTAL LEDESMA Medical Nutrition Therapy Initial A e ment And Intervention Each 15 Minutes Medical Nutrition Therapy Initial Assessment And Intervention Each 15 Minutes 71016 2016 AUGUSTINE ARMSTRONG Destruction Of Premalignant Lesion By Any Method One Lesion Destruction Of Premalignant Lesion By Any Method One Lesion 73594 2015 FREDRICK WATKINS Medical Nutrition Therapy Group (2 or More Individuals) Each 30 Minutes Medical Nutrition Therapy Group (2 or More Individuals) Each 30 Minutes 75661 2015 AMBER LUNDBERG Skin Test Anergy Tuberculin Intradermal Skin Test Anergy Tuberculin Intradermal 31836 2014 JANEE SINGH IPPD; Series #: 1; .1 mL; ID; Left Arm; Mfg: Page2Imagesedarod; Lot: [id number]. [facility] Determination Of Refractive State Determination Of Refractive State 13974 2014 MARTÍNEZ CHU Ophthalmological Prior Patient Start Comprehensive Care Ophthalmological Prior Patient Start Comprehensive Care 64836 2014 MARTÍNEZ CHU Biopsy Skin Biopsy Skin 96064 2014 FREDRICK WATKINS Integumentary Procedures (Therapeutic) Integumentary Procedures (Therapeutic) 09563 2014 FREDRICK WATKINS Destruct Of Premalignant Lesion By Any Method 2nd Through 14 Destruct Of Premalignant Lesion By Any Method 2nd Through 14 18464 2013 FREDRICK WATKINS Destruction Of Premalignant Lesion By Any Method One Lesion Destruction Of Premalignant Lesion By Any Method One Lesion 39908 2013 FREDRICK WATKINS Postoperative Visit, Without Charge Postoperative Visit, Without Charge 15152 2013 FREDRICK WATKINS Complex Repair Of Wound Cheek 2.6 to 7.5 cm Complex Repair Of Wound Cheek 2.6 to 7.5 cm 55405 2013 FREDRICK WATKINS Excision Of Lesion Face Malignant 1.1 to 2cm Excision Of Lesion Face Malignant 1.1 to 2cm 38428 2013 FREDRICK WATKINS Biopsy Skin Biopsy Skin 71470 10/24/ 2014 FREDRICK WATKINS DoD Immunization Administration By Injection, One Vaccine Immunization Administration By Injection, One Vaccine 63604 2013 LISA HO DoD Hepatitis A And Hepatitis B (Intramuscular Use) Adult Dosage Hepatitis A And Hepatitis B (Intramuscular Use) Adult Dosage 41658 2013 LISA HO Hep A - Hep B (Twinrix); Series #: 3; 1.0 mL; IM; Right Arm; Mfg: Vessix ; Lot: [id number]; VIS given (Syeda: 03/24/11; 07/12/11). [facility] Ophthalmological New Patient Start Comprehensive Care Ophthalmological New Patient Start Comprehensive Care 35351 2013 MARTÍNEZ CHU DoD Immunization Administration By Injection, One Vaccine Immunization Administration By Injection, One Vaccine 44789 2013 [place] DoD Hepatitis A And Hepatitis B (Intramuscular Use) Adult Dosage Hepatitis A And Hepatitis B (Intramuscular Use) Adult Dosage 97545 2013 [place] Hep A - Hep B (Twinrix); Series #: 2; 1.0 mL; IM; Right Arm; Mfg: Vessix ; Lot: [id number]; VIS given (Syeda: 03/24/11; 07/12/11). DoD Immunization Administration By Injection, One Vaccine Immunization Administration By Injection, One Vaccine [id number] SUZETTE OROSCO [facility] Hepatitis A And Hepatitis B (Intramuscular Use) Adult Dosage Hepatitis A And Hepatitis B (Intramuscular Use) Adult Dosage 49537 2013 SUZETTE OROSCO Hep A - Hep B (Twinrix); Series #: 1; 1.0 mL; IM; Right Arm; Mfg: Vessix ; Lot: [id number]; VIS given (Syeda: 03/24/11; 07/12/11). DoD Immunization Administration By Injection, One Vaccine Immunization Administration By Injection, One Vaccine [id number] JANEE SINGH [facility] Tdap Vaccine Tdap Vaccine 35157 2012 JANEE SINGH Tdap; Series #: 1; .5 mL; IM; Right Arm; Mfg: Insiders@ [employer]; Lot: [id number]; VIS given (Syeda: 10/16/12). [facility] Coordinated care fee, maintenance rate 2012 NARESH EDEN [facility] Case Management, each 15 minutes 2012 NARESH EDEN Destruct Of Premalignant Lesion By Any Method 2nd Through 14 2011 FREDRICK WATKINS Destruction Of Premalignant Lesion By Any Method One Lesion 2011 FREDRICK WATKINS ECG 12-Lead With Interpretation And Report ECG 12-Lead With Interpretation And Report 80842 2010 BHAVIKRACHNAMARIE Destruct Of Premalignant Lesion By Any Method 2nd Through 14 2010 FREDRICK WATKINS Destruction Of Premalignant Lesion By Any Method One Lesion 2010 FREDRICK WATKINS Pneumococcal Polysaccharide Vaccine 23 Valent Intramuscular Pneumococcal Polysaccharide Vaccine 23 Valent Intramuscular 85710 2009 JANEE SINGH Immunization Administration By Injection, One Vaccine Immunization Administration By Injection, One Vaccine 59543 2009 JANEE SINGH Destruction Of Benign Lesion By Any Method 2009 FREDRICK WATKINS Preventive Medicine: Foot Examination Preventive Medicine: Foot Examination 2009 MARK MONET [facility] Non-Physician Phone Call To Patient/Provider Brief (5-10min) Non-Physician Phone Call To Patient/Provider Brief (5-10min) 61303 2009 IESHA MORTON [facility] Non-Physician Phone Call To Pt/Provider Intermed (11-20 min) Non-Physician Phone Call To Pt/Provider Intermed (11-20 min) 82211 2009 GABRIELLA JACOB WAIsela [facility] Non-Physician Phone Call To Patient/Provider Brief (5-10min) Non-Physician Phone Call To Patient/Provider Brief (5-10min) 98765 2008 GABRIELLA JACOB WAIsela [facility] Non-Physician Phone Call To Patient/Provider Brief (5-10min) Non-Physician Phone Call To Patient/Provider Brief (5-10min) 61288 2008 SCOTTIE ANAND Non-Physician Phone Call To Patient/Provider Brief (5-10min) Non-Physician Phone Call To Patient/Provider Brief (5-10min) 03586 2008 BETTE RUSSO [facility] Medical Nutrition Therapy Group (2 or More Individuals) Each 30 Minutes Medical Nutrition Therapy Group (2 or More Individuals) Each 30 Minutes 97032 2008 JACK MAC [facility] Non-Physician Phone Call To Pt/Provider Intermed (11-20 min) Non-Physician Phone Call To Pt/Provider Intermed (11-20 min) 63247 2007 BETTE RUSSO Non-Physician Phone Call To Patient/Provider Brief (5-10min) Non-Physician Phone Call To Patient/Provider Brief (5-10min) 59799 2007 BETTE RUSSO [facility] Arthrocentesis Injection Of Bursa Of Major Joint Arthrocentesis Injection Of Bursa Of Major Joint 70979 2005 BELEN ARNDT [facility] Physical Therapy Service Re-Evaluation Physical Therapy Service Re-Evaluation 28000 2005 SAM CARRINGTON [facility] Physician Supervised Services Provision Of Special Supplies Physician Supervised Services Provision Of Special Supplies 70279 2005 SAM CARRINGTON [facility] Physical Therapy - Unlisted Therapeutic Procedure Physical Therapy - Unlisted Therapeutic Procedure 86821 2005 SAM CARRINGTON [facility] Physical Therapy Service Evaluation Physical Therapy Service Evaluation 38389 2005 SAM CARRINGTON [facility] Corticosteroids Injection Intraarticular Subacromial Bursa Corticosteroids Injection Intraarticular Subacromial Bursa 84749 2005 LIANG RICE [facility] Ophthalmological New Patient Start Comprehensive Care Ophthalmological New Patient Start Comprehensive Care 59494 GURPREET LUCAS [facility] Determination Of Refractive State Determination Of Refractive State 62780 GURPREET LUCAS [facility] Spectacles Services Fitting Monofocal Except For Aphakia Spectacles Services Fitting Monofocal Except For Aphakia 11220 GURPREET LUCAS [facility] Social History Combined list of available smoking, tobacco, and other social history from Department of Defense and Veterans Affairs facilities. Social History Type Response Date Comment Sourc e This section is an empty social history section. [facility] Assessment and Plan Combined list of future care activities from Department of Defense and Veterans Affairs facilities (e.g., assessment and plan notes, appointments, orders, and referrals). Additional future care activities may be listed in the Plan of Care section. Result Assessment and Plan Date Source Assessment and Plan No data available for this section 01/13/2024 Ambulatory Pharmacy Functional Status Combined list of recent functional and cognitive assessments recorded at Department of Defense and Veterans Affairs ([facility]).VA Functional Cooper Measurement (FIM) Scale: 1 = Total Assistance (Subject = 0% +), 2 = Maximal Assistance (Subject = 25% +), 3 = Moderate Assistance (Subject = 50% +), 4 = Minimal Assistance (Subject = 75% +), 5 = Supervision, 6 = Modified Cooper (Device), 7 = Complete Cooper (Timely, Safely). Assessment Date/Time Source Assessment Type Assessment Skill Assessment Score Assessment Details No data available for this section
--- OUTSIDE RECORDS SUMMARY | 2024-01-13 03:14 | XMS_ITS | Clinical Summary ---
Author Organization [facility] Address [address] [place] [address] Care Team Providers Care Search Planner Name Role Phone Cheo Santoyo Primary Care Provider [phone] Allergies Active Allergy Reactions Criticality Noted Date [...] Reported on 10/12/2023 olmesartan (BENICAR) 20 MG tabletIndications:P rimary hypertension Take 0.5 tablets by mouth daily 45 tablet 3 07/06/2023 Active Additional Information Patient taking differently:10 mg OralEVERY MORNING, Reported on 10/12/2023 atorvastatin (LIPITOR) 40 MG tabletIndications:T ype 2 diabetes mellitus without complication, without long-term current use of insulin (HCC) Take 1 tablet by mouth every morning 90 tablet 3 07/06/2023 Active ondansetron (ZOFRAN) 4 MG tabletIndications:N ausea Take 1 tablet by mouth every 8 hours as needed for Nausea prn 90 tablet 3 07/06/2023 Active tiZANidine (ZANAFLEX) 4 MG tabletIndications:C ervicalgia Take 1 tablet by mouth every 6 hours as needed (muscle spasm) 30 tablet 2 09/02/2023 Active Additional Information Patient taking differently:4 mg OralEVERY EVENING, Reported on 10/12/2023 cyclobenzaprine (FLEXERIL) 10 MG tablet Take 1 tablet by mouth 3 times daily as needed for Muscle spasms Active Bacillus Coagulans-Inulin (ALIGN PREBIOTIC-PROBIOTIC PO) Take 1 [...] (OZEMPIC, 0.25 OR 0.5 MG/DOSE,) 2 MG/3ML SOPNIndications:Typ e 2 diabetes mellitus without complication, without long-term current use of insulin (HCC) Inject 0.5 mg into the skin once a week 9 mL 12/14/2023 Active pantoprazole (PROTONIX) 40 MG tabletIndications:B arrett's esophagus with dysplasia 1 tablet orally twice daily 180 tablet 12/14/2023 Active Active Problems Problem Noted Date Diagnosed Date [...] ecified parts of digestive tract 03/17/2023 07/06/2023 [facility] (current) use of oral hypoglycemic jd gs 03/17/2023 07/06/2023 Other long term care social worker (current) drug therapy 07/06/2023 Personal history of other ma lignant neoplasm of large intestine 03/17/2023 07/06/2023 Anemia of unknown etiology 10/12/2022 Diarrhea 10/12/2022 Heartburn 10/12/2022 Left upper quadrant pain 10/12/2022 Tear of acetabular labrum, right, initial encoun ter 05/12/2022 Abnormal electrocardiogram 04/10/2022 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 Patient follows with Dr. Silva for surveillance colonoscopy. Arthralgia of shoulder 04/10/2022 [...] Encounters Date Type Department Care Team Description 01/12/2024 Telephone Orthopaedics - Emy Saeed Dr. [address] [place] [address] Miladis Fields PA Other 01/12/2024 Telephone Orthopaedics - [address] [place] [address] [facility] [address] [place] [address] Miladis Fields PA Call Patient 12/23/2023 [facility]. [address] [facility] [address] [place] [address] Georgi Butterfield MD Medication Request 12/14/2023 Telephone Primary Care [address] [address] Cheo Santoyo, DO new pharm 12/03/2023 Refill Primary Care [address] [phone] Cheo Santoyo, DO New Med Request 11/16/2023 11:30 AM EDT Office Visit Isidro Saldana Dr. [address] [place] [address] Karly Bautista PA Aftercare following right hip joint replacement surgery (Primary Dx) 11/16/2023 11:05 AM EDT Ancillary Procedure Isidro Saldana Dr. [address] [place] [address] 11/16/2023 Telephone Primary Care [address] [address] Cheo Santoyo DO 11/01/2023 [facility] [place] Maurice Panchal MD 10/26/2023 Telephone Orthopaedics [address] [place] [address] Maurice Panchal MD Lab results 10/26/2023 Telephone Orthopaedics - Emy Saeed Dr. [address], [address] [place] [phone] Maurice Elizabeth PA Call Patient 10/21/2023 Telephone Orthopaedics - Maryan Jacobsen Dr. [address] [place] [phone] Maurice Panchal MD Medication Problem 10/21/2023 Abstract Primary Care [address] [address] Cheo Santoyo, 10/19/2023 8:15 AM EDT - 10/19/2023 9:00 AM EDT Surgery [facility] [address] [place] [address] Maurice Panchal MD HIP TOTAL ARTHROPLASTY ANTERIOR APPROACH ROBOTIC ASSISTED 10/19/2023 7:51 AM EDT Anesthesia Event [facility] [address] [place] [address] Kwabena Wong MD 10/19/2023 6:20 AM EDT - 10/20/2023 12:10 PM EDT Hospital Encounter [facility] [address] [facility] PCU [address] [place] [address] Maurice Panchal MD Status post total replacement of right hip (Primary Dx); Primary osteoarthritis of right hip Discharge Disposition: Home Health Care [facility] 10/19/2023 Travel 10/16/2023 Prep for Procedure Orthopaedics - [address] - [address] [place] [address] [address] [place] [address] Maurice Elizabeth, PA from Last 3 Months Immunizations Name Administration [...] drink = 0.6 oz pur e alcohol) [facility] Utilities Answer Date Recorded In the past 12 months has [employer], or water [employer] threatened to shut off services in your [...] place to sleep or slept in a halfway (including now)? No 10/19/2023 Food Insecurity Answer [...] AM EDT Office Visit Neurology - [facility] [address] [facility] [address] [place] [address] Martell Calderon MD [address] [facility] [address] [place] [address] TREMORS/ MEDICARE, FOR LIFE 03/28/2024 8:30 AM EDT Office Visit Primary Care - [address] [address] [place] [address] [place] [address] AWV 04/06/2024 9:45 AM EST Lab [place] [facility] - [facility] [address] [facility] [address] [place] [address] CBCMP,CEA,FEST 04/06/2024 10:15 AM EST Office Visit [place] [facility] - [facility] [address] [facility] [address] [place] [address] Georgi Butterfield MD [address] [place] [address] 6 MTH FU W/LABS, REV SCAN 04/13/2024 9:30 AM EST Office Visit Surgical Oncology - [facility] [address] [facility] [address] [place] [address] Delvis Cheek MD 125 [facility] [address] [place] [address] 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 [address] [place] [address] Karly Bautista, BURT [address] [place] [address] annual visit from date of [...] 03/04/2023, 09/21/2022, Additional history exists COVID-19 Vaccine (5 - 2023- season) 2024 06/05/2022, 01/16/2021, 09/23/2020, Additional history [...] this topic Medical Devices Implanted Type Area Supplier Quality Manager Device Identifier Shelf Expiration Date Model / Serial / Lot Component Pat Lam95nd [id number] Superior/Infe rior Knee - [id number] Implanted:Qty : 1 on 12/21/2022 by Maurice Panchal MD at [facility] Joint Component Left: Patella [employer] HOWM-WD [id number] 06/22/2027 [id number] / / [id number] Component Fem Sz 5 L Knee Micaela Apatite Cruce Ret Cementless - [id number] Implanted:Qty : 1 on 12/21/2022 by Maurice Panchal MD at [facility] Joint Component Left: Knee [employer] [email or web address] [id number] 11/18/2027 [id number] / / [id number] Insert Tib Cndyl Stbl 5 9 Mm Knee 5/Pk X3 Triathlon - [id number] Implanted:Qty : 1 on 12/21/2022 by Maurice Panchal MD at [facility] Joint Component Left: Knee [employer] [email or web address] [id number] 09/23/2027 [id number] / / [id number] Baseplate Tib Sz 5 Ap49mm Ml74mm Knee Tritanium 4 Crucfrm - [id number] Implanted:Qty : 1 on 12/21/2022 by Maurice Panchal MD at [facility] Joint Component Left: Knee [email or web address] [id number] 10/07/2027 [id number] / / [id number] Component Pat [id number] Superior/Infe rior Knee - [id number] Implanted:Qty : 1 on 03/17/2023 by Maurice Panchal MD at [facility] Joint Component Right: Patella [employer] [facility] [id number] 01/18/2028 [id number] / / [id number] Component Fem Sz 5 R Knee Cruce Ret Cementless Bead W/ Micaela - [id number] Implanted:Qty : 1 on 03/17/2023 by Maurice Panchal MD at [facility] Joint Component Right: Knee [employer] [id number] 02/11/2028 [id number] / / [id number] Insert Tib Cndyl Stbl 6 9 Mm Knee 5/Pk X3 Triathlon - [id number] Implanted:Qty : 1 on 03/17/2023 by Maurice Panchal MD at [facility] Joint Component Right: Knee [email or web address] [id number] 01/07/2028 [id number] / / [id number] Baseplate Tib Sz 6 Ap52mm Ml77mm Knee Tritanium 4 Crucfrm - [id number] Implanted:Qty : 1 on 03/17/2023 by Maurice Panchal MD at [facility] Joint Component Right: Knee [employer] [email or web address] [id number] 12/21/2027 [id number] / / [id number] Insert Acet E 0 Deg 36 Mm Hip X3 Trident - [id number] Implanted:Qty : 1 on 10/19/2023 by Maurice Panchal MD at [facility] Joint Component Right: Hip [email or web address] [id number] 07/05/2028 [id number] / [id number] / [id number] Stem Fem Std Offset 4 Hip Cllrd Insignia - [id number] Implanted:Qty : 1 on 10/19/2023 by Maurice Panchal MD at [facility] Joint Component Right: Hip [employer] [id number] 06/19/2028 [id number] / [id number] / [id number] Head Fem [id number] +0mm Offset Hip Biolox Delt Ceramic Tapr - [id number] Implanted:Qty : 1 on 10/19/2023 by Maurice Panchal MD at [facility] Joint Component Right: Hip [employer] [id number] 06/06/2028 [id number] / [id number] / [id number] Shell Acet Sz E [id number] 5 Clus H Tritanium Pressfit Francisca - [id number] Implanted:Qty : 1 on 10/19/2023 by Maurice Panchal MD at [facility] Joint Component Right: Hip [email or web address] [id number] 09/04/2028 [id number] / [id number] / [id number] Procedures Procedure Name Priority Date/Time Associated Diagnosis [...] SPINAL BLOCK Routine 10/19/2023 7:53 AM EDT ID ARTHRP ACETBLR/PROX FEM PROSTC AGRFT/ALGRFT 10/19/2023 7:15 [...] office today on 11/16/2023. ??X-rays revealed well-positioned [place] hip arthroplasty components without issues or concerns. ??X-rays today were compared to postoperative AP pelvis x-ray completed on 10/19/2023 revealing no change in positioning of arthroplasty components. Karly DALLAS IMG DIAGNOSTIC IMAGI NG ORDERABLES * Hemoglobin and Hematocrit (10/20/2023 4:14 AM EDT) Hemoglobin 13.7 13.0 - 17.3 g/dL [facility] Hematocrit 41.8 38.0 - 52.0 % [facility] Blood BLOOD SPECIMEN / Unknown 10/20/2023 4:14 AM EDT 10/20/2023 5:02 AM EDT Maurice DALLAS HEMATOLOGY ORDERABLE S [facility] [address] [place] [address] * (ABNORMAL) Basic Metabolic Panel (10/20/2023 4:14 [...] Maurice DALLAS CHEMISTRY ORDERABLES Performing Organization Address [facility] de Phone Number F [address] [place] [address] * Culture, Tissue (10/19/2023 5:12 PM EDT) Only the most recent of2 resultswithin the time period is included. FINAL REPORT No aerobic or anaerobic organisms isolated [facility] Gram Stain Result No Polymorphonuclear WBC [facility] Gram Stain Result No Bacteria Seen [facility] Tissue 10/19/2023 5:12 PM EDT 10/19/2023 5:14 PM EDT Maurice Panchal MD MICROBIOLOGY - GENER AL ORDERABLES Performing Organization Address [facility] de Phone Number [facility] [address] [place] [address] * XR PELVIS (1-2 VIEWS) (10/19/2023 9:56 [...] included. FINAL REPORT No Acid-Fast bacilli Isolated [facility] ACID FAST No Acid Fast Bacilli Seen [facility] Tissue HIP JOINT SYNOVIAL FLUID / Unknown 10/19/2023 8:53 AM EDT Comment:Pre-op diagnosis: Primary osteoarthritis of right hip [M16.11] Narrative [facility] - 10/20/2023 1:01 PM EDT Pre-op diagnosis: Primary osteoarthritis of right hip [M16.11] Maurice Panchal MD MICROBIOLOGY - GENER AL ORDERABLES Performing Organization Address City/State/[facility] Co de Phone Number [facility] [address] [place] [address] * Culture, Fungus (10/19/2023 8:53 AM EDT) Only the most recent of2 resultswithin the time period is included. FINAL REPORT No fungi isolated after 28 days. [facility] JESUS result No Fungi Seen [facility] Tissue HIP JOINT SYNOVIAL FLUID / Unknown 10/19/2023 8:53 AM EDT Comment:Pre-op diagnosis: Primary osteoarthritis of right hip [M16.11] Narrative [facility] - 10/19/2023 10:39 PM EDT Pre-op diagnosis: Primary osteoarthritis of right hip [M16.11] Maurice Panchal MD MICROBIOLOGY - GENER AL ORDERABLES Performing Organization Address City/State/[facility] Co de Phone Number [facility] [address] [place] [address] * Spinal Block (10/19/2023 7:53 AM EDT) [...] POC Glucose 96.0 65.0 - 110.0 mg/dL [facility] Comment:MP - AMB PACU Blood 10/19/2023 7:10 AM EDT 10/19/2023 7:10 AM EDT Maurice Panchal MD POINT OF CARE TEST O RDERASANCHEZ Performing Organization Address [facility] Co de Phone Number [facility] [address] [place] [address] * Surgical Pathology (10/19/2023) Bone HIP JOINT SYNOVIAL FLUID / Unknown 10/19/2023 9:15 AM EDT Comment:Pre-op diagnosis: Primary osteoarthritis of right hip [M16.11] Maurice Panchal MD PATHOLOGY/CYTOLOGY O RDERASANCHEZ Performing Organization Address [facility] Co de Phone Number [facility] [address] [place] [address] * DIABETES EYE EXAM (08/03/2023) Diabetic Retinopathy Negative Historical Provider [place] [facility] * PSA Screening (07/06/2023 11:08 AM EST) PSA, Screening 1.420 0.000 - 4.000 ng/mL [facility] Comment: PSA INTERPRETATION: PSA measured by Ja Harry electrochemiluminescence immunoassay ECLIA methodology. At this time, no major scientific/medical organization including the [place] Cancer Society and the [place] U[employer] Association have specific recommendations in regard [...] PM EST Cheo Santoyo DO CHEMISTRY ORDERABLES [facility] [address] [facility] [place] [address] * (ABNORMAL) Hemoglobin A1C (07/06/2023 11:08 AM EST) Hemoglobin A1C 6.8(H) 4.0 - 6.0 % [facility] Comment: HEMOGLOBIN A1C INTERPRETATION: The [...] Inadequate Control Est. Avg. Glucose, WB 148 [facility] Est. Avg. Glucose-calculated [address] [facility] Blood BLOOD SPECIMEN / Unknown 07/06/2023 11:08 AM EST 07/06/2023 3:58 PM EST Cheo Santoyo DO CHEMISTRY ORDERABLES Performing Organization Address City/State/[facility] Co de Phone Number [facility] [address] [facility], [place] [address] * COLONOSCOPY (06/01/2023) 06/01/2023 Historical Provider MD SERGIO RUBIN E * CT ABDOMEN PELVIS W IV CONTRAST [...] recurrent or metastatic disease. Georgi Butterfield MD G CT ORDERABLES * Hepatitis C Antibody (03/04/2023 1:05 PM EDT) Hepatitis C Ab Negative Negative [facility] Blood BLOOD SPECIMEN / Unknown 03/04/2023 1:05 PM EDT 03/04/2023 4:05 PM EDT Felicitas Monaco MD IMMUNOLOGY ORDERABL ES [facility] [address] [facility], [place] [address] * Lipid Panel (03/04/2023 1:05 PM EDT) Cholesterol 115 100 - 200 mg/dL [facility] Comment: The National Cholesterol Education Program has published reference cholesterol values for cardiovascular risk to be: Less than 200 mg/dL ? = Low Risk 200 to 239 mg/dL ?= Borderline Risk 240mg/dL and greater ?= High Risk HDL 40 >=40 mg/dL [facility] Comment: The National Lipid Association and the National Cholesterol Education Program (NCEP) have set the guidelines for high-density lipoprotein (HDL) cholesterol in adults ages 18 and up. Triglycerides 90 0 - 149 mg/dL [facility] Comment: TRIGLYCERIDE INTERPRETATION: ?Recommended Fasting [...] City/State/[facility] Co de Phone Number [facility] [address] [facility] [place] [address] from Last 3 Months or Most Recently [...] 6:09 AM 12/21/2022 9:24 PM Care Teams Search Planner Relationship Specialty Start Date End Date Cheo Santoyo DO [address] [place] [phone] PCP - General Family Medicine 07/06/23
--- OUTSIDE RECORDS SUMMARY | 2024-01-13 03:14 | XMS_ITS | Encounter Summary ---
Author Organization [facility] Address [address] [place] [address] Care Team Providers Care Wedger And Gluer Name Role Phone Carter Santoyoony Moshe REYES Primary Care Provider [phone] Reason for Visit * Reason Onset Date Comments Other 01/12/2024 Encounter Details Date Type Department Care Team (Late st Contact Info) Description 01/12/2024 Telephone Orthopaedics - Emy Saeed Dr. [address] [place] [address] Miladis Fields, BURT [address] [place], [place] [id number] Other Social History Tobacco Use Types Packs/Day Years Used Date Smoking Tobacco: Former Cigarettes 1 27 0 05/31/1969 - 05/31/1996 Smokeless Tobacco: Never Alcohol Use Standard Drinks/Week Comments Yes 4 (1 standard drink = 0.6 oz pur e alcohol) [facility] Utilities Answer Date Recorded In the past 12 months has [employer], gas, oil, or water [employer] threatened to shut off services in your [...] Visit Neurology - [facility] [address] [facility] [address] [place] [address] Martell Calderon MD [address] [facility] [address] [place] [address] TREMORS/ MEDICARE, FOR LIFE 03/28/2024 8:30 AM EDT Office Visit Primary Care - [address] [address] [place] [address] [place] [address] AWV 04/06/2024 9:45 AM EST Lab [place] [facility] - [facility] [address] [facility] [address] [place] [address] CBCMP,CEA,FEST 04/06/2024 10:15 AM EST Office Visit [place] [facility] - [facility] [address] [facility] [address] [place] [address] Georgi Butterfield MD [address] [place] [address] 6 MTH FU W/LABS, REV SCAN 04/13/2024 9:30 AM EST Office Visit Surgical Oncology - [facility] [address] [facility] [address] [place] [address] Delvis Cheek MD [address] [facility] [address] [place] [address] 1 YEAR F/U ADENOCARCINOMA OF THE CECUM 06/19/2024 10:30 AM EST Office Visit Orthopaedics- Les Valencia [address] [facility] [address] [place] [address] Karly Bautista, BURT [address] [facility] [address] [place] [address] annual visit from date of surgery May/Jul 2024 for bilateral TKA and right LIZZ with Karly. documented as of this encounter Visit Diagnoses Not on filedocumented in this encounter Additional Health Concerns Assessment Noted Time A fall risk assessment has been complete d for the patient 07/06/2023 9:36 AM EST documented as of this encounter Care Teams Wedger And Gluer Relationship Specialty Start Date End Date Cheo Santoyo DO [address] [place] [phone] PCP - General Family Medicine 07/06/23 documented as of this encounter
--- OUTSIDE RECORDS SUMMARY | 2024-01-13 03:14 | XMS_ITS | Encounter Summary ---
Author Organization Jose Alejandro Pantoja [facility] Address [address] [place] [address] Care Team Providers Care Patient Access Coordinator Name Role Phone Cheo Santoyo Primary Care Provider [phone] Reason for Visit * Reason Onset Date Comments Medication Request 12/23/2023 Encounter Details Date Type Department Care Team (Late st Contact Info) Description 12/23/2023 [facility]phone [facility] H[facility] & On[facility] - [facility]. [address] [facility] [address] [place] [address] Georgi Butterfield MD [address] [place] [address] Medication Request Social History Tobacco Use Types Packs/Day Years Used Date Smoking Tobacco: Former Cigarettes 1 27 0 05/31/1969 - 05/31/1996 Smokeless Tobacco: Never Alcohol Use Standard Drinks/Week Comments Yes 4 (1 standard drink = 0.6 oz pur e alcohol) [facility] Utilities Answer Date Recorded In the past 12 months has [employer], gas, oil, or water [employer] threatened to shut off services in your [...] - [facility] [place] [address] [facility] [address] [place] [address] Martell Calderon MD 2144 [facility] [address] [place] [address] TREMORS/ MEDICARE, FOR LIFE 03/28/2024 8:30 AM EDT Office Visit Primary Care - [address] [address] [address]oyo [address] [address] AWV 04/06/2024 9:45 AM EST [facility] [place] [facility] - [facility] [place] [address] [facility] [address] [place] [address] CBCMP,CEA,FEST 04/06/2024 10:15 AM EST Office Visit [place] [facility] - [facility] [place] [address] [facility] [address] [place] [address] Georgi Butterfield MD 3510 [facility] [address] [facility] [address] [place] [address] 6 MTH FU W/LABS, REV SCAN 04/13/2024 9:30 AM EST Office Visit Surgical Oncology - [facility] [place] [address] [facility] [address] [place] [address] Delvis Cheek MD 125 [facility] 660 [place] [phone] 1 YEAR F/U ADENOCARCINOMA OF THE CECUM 06/19/2024 10:30 AM EST Office Visit Orthopaedics- Les Valencia [address] [facility] 100 [place] [address] Karly Bautista, BURT 180 [facility] 301 [place] [address] annual visit from date of surgery May/Jul 2024 for bilateral TKA and right LIZZ with Karly. documented as of this encounter Visit Diagnoses Not on filedocumented in this encounter Additional Health Concerns Assessment Noted Time A fall risk assessment has been complete d for the patient 07/06/2023 9:36 AM EST documented as of this encounter Care Teams Patient Access Coordinator Relationship Specialty Start Date End Date Cheo Santoyo DO [address] [place] [phone] PCP - General Family Medicine 07/06/23 documented as of this encounter
--- OUTSIDE RECORDS SUMMARY | 2024-01-13 03:14 | XMS_ITS | Encounter Summary ---
Author Organization Jose Alejandro [facility] Address [address] [place] [address] Care Team Providers Care Nuclear Control Operator Name Role Phone Yarelis, Cheo Moshe REYES Primary Care Provider [phone] Reason for Visit * Reason Onset Date Comments Call Patient 01/12/2024 Encounter Details Date Type Department Care Team (Late st Contact Info) Description 01/12/2024 Telephone Orthopaedics - [address] [place] [address]. [address] [place] [address] [address] [place] [phone] Miladis Fields, BURT [address] [place], [place] [phone] Call Patient Social History Tobacco Use Types Packs/Day Years Used Date Smoking Tobacco: Former Cigarettes 1 27 0 05/31/1969 - 05/31/1996 Smokeless Tobacco: Never Alcohol Use Standard Drinks/Week Comments Yes 4 (1 standard drink = 0.6 oz pur e alcohol) [facility] Utilities Answer Date Recorded In the past 12 months has [employer], gas, oil, or water [employer] threatened to shut off services in [...] place to sleep or slept in a nursing home (including now)? No 10/19/2023 Food Insecurity [...] 9:00 AM EDT Office Visit Neurology - [facility] [address] [facility] [address] [place] [address] Martell Calderon MD 2[address] [facility] [address] [place] [address] TREMORS/ MEDICARE, FOR LIFE 03/28/2024 8:30 AM EDT Office Visit Primary Care - [address] [address] [place] [address] [place] [phone] AWV 04/06/2024 9:45 AM EST [place] [facility] - [facility] [address] [facility] [address] [place] [address] CBCMP,CEA,FEST 04/06/2024 10:15 AM EST Office Visit [place] [facility] - [facility] [address] [facility] [address] [place] [address] Georgi Butterfield MD [address] [place] [address] 6 MTH FU W/LABS, REV SCAN 04/13/2024 9:30 AM EST Office Visit Surgical Oncology - [facility] [address] [facility] [address] [place] [address] Delvis Cheek MD 125 [facility] [address] [place] [phone] 1 YEAR F/U ADENOCARCINOMA OF THE CECUM 06/19/2024 10:30 AM EST Office Visit Orthopaedics- Les Valencia 615 [facility] 100 [place] [phone] Karly Bautista, BURT [address] [facility] 301 [place] [address] annual visit from date of surgery May/Jul 2024 for bilateral TKA and right LIZZ with Karly. documented as of this encounter Visit Diagnoses Not on filedocumented in this encounter Additional Health Concerns Assessment Noted Time A fall risk assessment has been complete d for the patient 07/06/2023 9:36 AM EST documented as of this encounter Care Teams Nuclear Control Operator Relationship Specialty Start Date End Date Cheo Santoyo DO [address] [place] [phone] PCP - General Family Medicine 07/06/23 documented as of this encounter
--- OUTSIDE RECORDS SUMMARY | 2024-01-13 03:15 | XMS_ITS | Encounter Summary ---
Author Organization Jose Alejandro Pantoja Krist[facility]marysol deandra [facility] Address [address] [place] [address] Care Team Providers Care Dewaxer Name Role Phone YarelisCheo friend Moshe REYES Primary Care Provider [phone] Encounter Details Date Type Department Care Team (Late st Contact Info) Description 10/16/2023 Prep for Procedure Orthopaedics - [place] [address] [address] [place] [address] Maurice Elizabeth PA [address] [address] Social History Tobacco Use Types Packs/Day Years Used Date Smoking Tobacco: Former Cigarettes 1 27 0 05/31/1969 - 05/31/1996 Smokeless Tobacco: Never Alcohol Use Standard Drinks/Week Comments Yes 4 (1 standard drink = 0.6 oz pur e alcohol) [facility] Utilities Answer Date Recorded In the past 12 months has [employer], gas, oil, or water [employer] threatened to shut off services in your [...] place to sleep or slept in a intermediate (including now)? No 10/19/2023 Food Insecurity Answer [...] [facility], [place], [facility] [address] [facility] [address] [place] [phone] Martell Calderon MD 2144 [facility] [address] [place] [address] TREMORS/ MEDICARE, FOR LIFE 03/28/2024 8:30 AM EDT Office Visit Primary Care - [facility] [address] [place] [phone] Cheo Santoyo DO [address] [place] [address] AWV 04/06/2024 9:45 AM EST Lab [place] [facility] - [facility] [place], [facility] [address] [facility] [address] [place] [address] CBCMP,CEA,FEST 04/06/2024 10:15 AM EST Office Visit [place] [facility] - [facility] [place], [facility] [address] [facility] [address] [place] [address] Georgi Butterfield MD [address] [place], [place] [phone] 6 MTH FU W/LABS, REV SCAN 04/13/2024 9:30 AM EST Office Visit Surgical Oncology - [facility] [place], [facility] [address] [facility] [address] [place] [address] Delvis Cheek MD 125 [facility] [address] [place] [address] 1 YEAR F/U ADENOCARCINOMA OF [facility] CECUM 06/19/2024 10:30 AM EST Office Visit Orthopaedics- Les Valencia [address] [facility] [address] [place] [address] Karly Bautista, BURT 180 [facility] 301 [place] [phone] annual visit from date of surgery May/Jul 2024 for bilateral TKA and right LIZZ with Karly. documented as of this encounter Visit Diagnoses Not on filedocumented in this encounter Additional Health Concerns Assessment Noted Time A fall risk assessment has been complete d for the patient 07/06/2023 9:36 AM EST documented as of this encounter Care Teams Dewaxer Relationship Specialty Start Date End Date Cheo Santoyo DO [address] [place] [phone] PCP - General Family Medicine 07/06/23 documented as of this encounter
--- OUTSIDE RECORDS SUMMARY | 2024-01-13 03:15 | XMS_ITS | Encounter Summary ---
Author Organization Jose Alejandro Ray[facility]olinnea [facility] Address [address] [place] [address] Care Team Providers Care Locomotive Crane Operator Helper Name Role Phone Cheo Santoyo Primary Care Provider [phone] Reason for Visit * Auth/Cert (Routine) Specialty Diagnoses / Procedures Referred By Rachid t Referred To Contact Diagnoses Primary osteoarthritis of right hip Primary osteoarthritis of right hip [M16.11] Procedures [facility] ARTHRP ACETBLR/PROX FEM PROSTC AGRFT/ALGRFT HIP TOTAL ARTHROPLASTY ANTERIOR APPROACH ROBOTIC ASSISTED Maurice Panchal MD [address] [address] Referral ID Status Reason Start Date Expiration Date Visits Re quested Visits Authorized [id number] 1 1 Encounter Details Date Type Department Care Team (Latest Contact Info) Description 10/19/2023 6:20 AM EDT - 10/20/2023 12:10 PM EDT Hospital Encounter R[facility] [address] [place] [address] Maurice Panchal MD [address] [address] Status post total replacement of right hip (Primary Dx); Primary osteoarthritis of right hip Discharge Disposition: Home Health Care Svc Social History Tobacco Use Types Packs/Day Years Used Date Smoking Tobacco: Former Cigarettes 1 27 0 05/31/1969 - 05/31/1996 Smokeless Tobacco: Never Alcohol Use Standard Drinks/Week Comments Yes 7 (1 standard drink = 0.6 oz pur e alcohol) [facility] Utilities Answer Date Recorded In the past [...] place to sleep or slept in a skilled nursing (including now)? No 10/19/2023 Food Insecurity Answer [...] have X-rays every year or two. ?? [id number] [employer]. All rights reserved. This information is not intended as a substitute for professional medical care. Always follow your healthcare professional's instructions. * Attachments The following attachments cannot be sent through Care Everywhere. * acetaminophen (oral) (Latvian) * aspirin (oral) (Latvian) * celecoxib (Latvian) * docusate (oral/rectal) (Latvian) * Constipation (Latvian) * DVT (Deep Vein Thrombosis) (Latvian) * Pulmonary Embolism (Latvian) documented in this encounter Medications at Time [...] complication, without long-term current use of insulin ([facility]) Inject 0.5 mg once weekly 3 Adjustable [...] a pastmedical history of Ryan's esophagus, Cancer ([facility]), Chronic back pain, Diabetes ([facility]), DJD (degenerative joint disease), GERD (gastroesophageal reflux disease), Hip pain, HTN (hypertension), Hyperlipidemia, IBS (irritable bowel syndrome), Left bundle branch block (LBBB), Post-operative nausea andvomiting, Sleep apnea, Spinal stenosis, Tremor, Type 2 diabetes mellitus without complication ([facility]), and Wears glasses. He also has a [...] (with RW) ADL Treatment (12 Minutes) CPT 70893: Self care including Scooting, Transfer Training, Sitting [...] Learning: None Education Outcome: Verbalized understanding;Demonstrated understanding [facility]?6 Clicks?? Basic ADL Inpatient Short Form [...] How much help for eating meals?: None [facility] Inpatient Daily Activity Raw Score: 22 [facility] ADL T-Scale Score : 47.1 ADL [...] 10:03 AM EDT Orthopedic Progress Note Date:10/20/2023 Room:[address] [place] [address] Patient Name:Martínez Toribio Date of :1955 Age:68 [...] creator for further clarification. * Chrissy Mcdonnell, THERAPEUTIC STRATEGY LEAD - 10/20/2023 8:20 AM EDT Images from the original note were not included. Acute Care Physical Therapy Treatment Note Observation (THERAPEUTIC STRATEGY LEAD/PT Visit Days : 2) Time In: 0755 [...] a pastmedical history of Ryan's esophagus, Cancer ([facility]), Chronic back pain, Diabetes ([facility]), DJD (degenerative joint disease), GERD (gastroesophageal reflux disease), Hip pain, HTN (hypertension), Hyperlipidemia, IBS (irritable bowel syndrome), Left bundle branch block (LBBB), Post-operative nausea andvomiting, Sleep apnea, Spinal stenosis, Tremor, Type 2 diabetes mellitus without complication ([facility]), and Wears glasses. He also has a [...] Within Normal Limits Orientation Level: Oriented X4 [facility]?6 Clicks?? Basic Mobility Inpatient Short Form [...] 3-5 steps with a railing?: A Little [facility] Inpatient Mobility Raw Score : 20 [facility] Inpatient T-Scale Score : 47.67 Mobility [...] VERBALIZE AND DEMONSTRATE PROPERLY Therapeutic Exercise (CPT 98345) (5 minutes) Exercise Treatment: ANKLE PUMPS, QUAD SETS, GLUTEAL SETS X 10; INSTRUCTED OTHERWISE TO ONLY AMBULATE FOR EXERCISE To Improve:activity tolerance, AROM, strength, and mobility Gait Training (19 Minutes) CPT 20888: Gait training for 250 feet utilizing Gait [...] KNEES REPLACED IN THE PAST. SEATED IN CHECK EMBOSSER. REVIEWED ANTI-EMBOLICS AND INSTRUCTED TO OTHERWISE AMBULATE [...] activities Goals ALL MET Short Term Goals Youth Court Judge Goals Time Frame for Short Term Goals: [...] included. Acute Care Physical Therapy Evaluation Observation (THERAPEUTIC STRATEGY LEAD/PT Visit Days : 1) Time In: 1600 [...] Therapeutic activ ities Goals Short Term Goals Halfway Goals Time Frame for Short Term Goals: [...] EDT Pre Procedure Patient Instructions Procedure Location hospital:[facility] [address] [facility]- Your arrival time may be as early [...] on the day of your procedure call [facility] Preopat [phone]. Skin Preparation: Wash with Hibiclens or an [...] wear artificial nails and only clear nail maltese on natural nails. Nails must be trimmed [...] Living Will and/or Medical Durable Power of Actuarial Analyst if you have one Bring a list [...] you have any additional questions please contact [phone]. To pre-register for your procedure please call [phone] Option 1. For financial questions regarding your procedure at a LTAC, located within [facility], please contact [phone]. For financial questions regarding anesthesia at a [facility] facility, please contact [phone]. For [employer] Patient Portal help please call [phone]. documented in this encounter Plan of Treatment Upcoming Encounters Date Type Department Care Team (Late st Contact Info) Description 03/24/2024 9:00 AM EDT Office Visit Neurology - [facility] [place] [address] [facility] [address] [place] [address] Martell Calderon MD 2144 [facility] [address] [place] [address] TREMORS/ MEDICARE, FOR LIFE 03/28/2024 8:30 AM EDT Office Visit Primary Care - [address] [address] Cheo Santoyo, [address] [place] [address] AWV 04/06/2024 9:45 AM EST Lab [place] [facility] - [facility] [place] [address] [facility] [address] [place] [address] CBCMP,CEA,FEST 04/06/2024 10:15 AM EST Office Visit [place] [facility] - [facility] [place] [address] [facility] [address] [place] [address] Georgi Butterfield MD [address] [place] [address] 6 MTH FU W/LABS, REV SCAN 04/13/2024 9:30 AM EST Office Visit Surgical Oncology - [facility] [place] [address] [facility] [address] [place] [address] Delvis Cheek MD 125 [facility] [address] [place] [address] 1 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/U ADENOCARCINOMA OF [facility] CECUM 06/19/2024 10:30 AM EST Office Visit Orthopaedics- Les Valencia 615 [facility] [address] [place] [address] Karly Bautista, BURT [address] [place] [address] annual visit from date of [...] AM EDT Primary osteoarthritis of right hip VA ARTHRP ACETBLR/PROX FEM PROSTC AGRFT/ALGRFT 10/19/2023 7:15 [...] S [facility] [address] [place] [address] * (ABNORMAL) Basic Metabolic Panel (10/20/2023 4:14 [...] Maurice DALLAS CHEMISTRY ORDERABLES Performing Organization Address City/[facility] Co de Phone Number [address], [place] [address] * Culture, Tissue (10/19/2023 5:12 PM EDT) FINAL REPORT No aerobic or anaerobic organisms isolated [facility] Gram Stain Result No Polymorphonuclear WBC [facility] Gram Stain Result No Bacteria Seen [facility] Tissue 10/19/2023 5:12 PM EDT 10/19/2023 5:14 PM EDT Maurice Panchal MD MICROBIOLOGY - GENER AL ORDERABLES Performing Organization Address [facility] Co de Phone Number [facility] [address] [place] [address] * (ABNORMAL) Culture, Tissue (10/19/2023 4:58 PM EDT) FINAL REPORT Propionibacterium species Most Closely Resembling Propionibacterium avidum(A) [facility] FINAL REPORT No aerobic organisms isolated.(A) [facility] Gram Stain Result No Polymorphonuclear WBC(A) [facility] Gram Stain Result No Bacteria Seen(A) [facility] Organism Propionibacterium species(A) [facility] Tissue 10/19/2023 4:58 PM EDT 10/19/2023 5:14 PM EDT Maurice Panchal MD MICROBIOLOGY - GENER AL ORDERABLES Performing Organization Address [facility] Co de Phone Number [facility] [address] [place] [phone] * XR PELVIS (1-2 VIEWS) (10/19/2023 9:56 [...] EDT) FINAL REPORT No Acid-Fast bacilli Isolated [facility] ACID FAST No Acid Fast Bacilli Seen [facility] Tissue HIP JOINT SYNOVIAL FLUID / Unknown 10/19/2023 8:53 AM EDT Comment:Pre-op diagnosis: Primary osteoarthritis of right hip [M16.11] Narrative [facility] - 10/20/2023 1:01 PM EDT Pre-op diagnosis: Primary osteoarthritis of right hip [M16.11] Maurice Panchal MD MICROBIOLOGY - [facility] AL ORDERABLES [facility] [address] [place] [address] * Culture, Fungus (10/19/2023 8:53 AM EDT) FINAL REPORT No fungi isolated after 28 days. [facility] JESUS result No Fungi Seen [facility] Tissue HIP JOINT SYNOVIAL FLUID / Unknown 10/19/2023 8:53 AM EDT Comment:Pre-op diagnosis: Primary osteoarthritis of right hip [M16.11] Narrative [facility] - 10/19/2023 10:39 PM EDT Pre-op diagnosis: Primary osteoarthritis of right hip [M16.11] Maurice Panchal MD MICROBIOLOGY - GENER AL ORDERABLES Performing Organization Address City/[facility] de Phone Number [facility] [address] [place] [phone] * Culture with Smear, Acid Fast Bacillius (10/19/2023 8:50 AM EDT) FINAL REPORT No Acid-Fast bacilli Isolated [facility] ACID FAST No Acid Fast Bacilli Seen [facility] Synov Fl JOINT SPECIMEN / Unknown 10/19/2023 8:50 AM EDT Comment:Pre-op diagnosis: Primary osteoarthritis of right hip [M16.11] Narrative [facility] - 10/20/2023 1:00 PM EDT Pre-op diagnosis: Primary osteoarthritis of right hip [M16.11] Maurice Panchal MD MICROBIOLOGY - GENER AL ORDERABLES Performing Organization Address [facility] de Phone Number [facility] [address] [place] [phone] * Culture, Fungus (10/19/2023 8:50 AM EDT) FINAL REPORT No fungi isolated after 28 days. [facility] JESUS result No Fungi Seen [facility] Synov Fl JOINT SPECIMEN / Unknown 10/19/2023 8:50 AM EDT Comment:Pre-op diagnosis: Primary osteoarthritis of right hip [M16.11] Narrative [facility] - 10/19/2023 10:40 PM EDT Pre-op diagnosis: Primary osteoarthritis of right hip [M16.11] Maurice Panchal MD MICROBIOLOGY - GENER AL ORDERABLES Performing Organization Address City/[facility] Co de Phone Number [facility] [address] [place] [address] * POCT Glucose (10/19/2023 7:10 AM EDT) POC Glucose 96.0 65.0 - 110.0 mg/dL [facility] Comment:MP - AMB PACU Blood 10/19/2023 7:10 AM EDT 10/19/2023 7:10 AM EDT Maurice Panchal MD POINT OF CARE TEST O RDERASANCHEZ Performing Organization Address [facility] Co de Phone Number [facility] [address] [place] [address] * Surgical Pathology (10/19/2023) Bone HIP JOINT SYNOVIAL FLUID / Unknown 10/19/2023 9:15 AM EDT Comment:Pre-op diagnosis: Primary osteoarthritis of right hip [M16.11] Maurice Panchal MD PATHOLOGY/CYTOLOGY O RDERABLES Performing Organization Address [facility] Co de Phone Number [facility] [address] [place] [address] documented in this encounter Visit Diagnoses Diagnosis [...] mL IVPB (mini-bag) (COMPLETED) 2,000 mg, IntraVENous, GUEST SERVICE AIDE TO O.R., 1 dose, On Wed10/19/23 at [...] at 400 mL/hr, Administer over 15 Minutes, GUEST SERVICE AIDE TO O.R., On Wed10/19/23 at 0645, For [...] documented as of this encounter Care Teams Locomotive Crane Operator Helper Relationship Specialty Start Date End Date Cheo Santoyo DO [address] [place] [phone] PCP - General Family Medicine 07/06/23 documented as of this encounter
--- OUTSIDE RECORDS SUMMARY | 2024-01-13 03:15 | XMS_ITS | Encounter Summary ---
Author Organization Jose Alejandro P[facility]ja [facility] Address [address] [place] [address] Care Team Providers Care Chief Power Dispatcher Name Role Phone Cheo Santoyo DO Primary Care Provider [phone] Reason for Visit * Reason Onset Date Comments Call Patient 09/29/2023 Encounter Details Date Type Department Care Team (Late st Contact Info) Description 09/29/2023 Telephone Orthopaedics - Emy Sae[address] [place] [address] Bonny Mcarthur PA 9710 [facility] 17 [facility] 105 [place] [address] Call Patient Social History Tobacco Use Types Packs/Day Years Used Date Smoking Tobacco: Former Cigarettes 1 27 0 05/31/1969 - 05/31/1996 Smokeless Tobacco: Never Alcohol Use Standard Drinks/Week Comments Yes 4 (1 standard drink = 0.6 oz pur e alcohol) [facility] Utilities Answer Date Recorded In the past 12 months has [employer], gas, oil, or water [employer] threatened to shut off services in your [...] place to sleep or slept in a half-way (including now)? No 10/19/2023 Food Insecurity Answer [...] 9:00 AM EDT Office Visit Neurology - [facility] [address] [facility] [address] [place] [address] Martell Calderon MD 2144 [facility] [address] [place], [place] [id number] TREMORS/ MEDICARE, FOR LIFE 03/28/2024 8:30 AM EDT Office Visit Primary Care - [address] [address] Cheo Santoyo [address] [address] AWV 04/06/2024 9:45 AM EST Lab [facility] - [facility] 2084 [facility] [address] [place] [address] CBCMP,CEA,FEST 04/06/2024 10:15 AM EST Office Visit [facility] - [facility] 20[address] [facility] [address] [place] [address] Georgi Butterfield MD 3510 [facility] 17N [facility] 225 [place] [address] 6 MTH FU W/LABS, REV SCAN 04/13/2024 9:30 AM EST Office Visit Surgical Oncology - [facility] [address] [facility] [address] [place] [address] Delvis Cheek MD 125 [facility] 660 [place] [phone] 1 YEAR F/U [facility] 06/19/2024 10:30 AM EST Office Visit Orthopaedics- Les Valencia 134 [facility] 100 [place] [address] Karly Bautista, BURT 180 [facility] 301 [place] [address] annual visit from date of surgery May/Jul 2024 for bilateral TKA and right LIZZ with Karly. documented as of this encounter Visit Diagnoses Not on filedocumented in this encounter Additional Health Concerns Assessment Noted Time A fall risk assessment has been complete d for the patient 07/06/2023 9:36 AM EST documented as of this encounter Care Teams Chief Power Dispatcher Relationship Specialty Start Date End Date Cheo Santoyo DO [address] [place] [phone] PCP - General Family Medicine 07/06/23 documented as of this encounter
--- OUTSIDE RECORDS SUMMARY | 2024-01-13 03:15 | XMS_ITS | Encounter Summary ---
Author Organization Jose Alejandro Pantoja [facility] Address [address] [employer] [place] [address] Care Team Providers Care Physical Plant Manager Name Role Phone Cheo Santoyo DO Primary Care Provider [phone] Encounter Details Date Type Department Care Team ([facility] st Contact Info) Description 11/16/2023 Telephone Primary Care - [address] [address] Cheo Santoyo DO [address] [place] [address] Social History Tobacco Use Types Packs/Day Years Used Date Smoking Tobacco: Former Cigarettes 1 27 0 05/31/1969 - 05/31/1996 Smokeless Tobacco: Never Alcohol Use Standard Drinks/Week Comments Yes 4 (1 standard drink = 0.6 oz pur e alcohol) [facility] Utilities Answer Date Recorded In the past 12 months has [employer], [employer], oil, or water [employer] threatened to shut off services in your [...] place to sleep or slept in a mcc (including now)? No 10/19/2023 Food Insecurity Answer [...] Visit Neurology - [facility] 2144 [facility] [address] [place] [address] Martell Calderon MD 2144 [facility] [address] [place] [address] TREMORS/ MEDICARE, FOR LIFE 03/28/2024 8:30 AM EDT Office Visit Primary Care - [address] [phone] Cheo Santoyo, DO 1112 [place] [address] AWV 04/06/2024 9:45 AM EST [facility] - [facility] 2084 [facility] [address] [place] [address] CBCMP,CEA,FEST 04/06/2024 10:15 AM EST Office Visit [facility] - [facility] 2084 [facility] [address] [place] [address] Georgi Butterfield MD 3510 [facility] 17N [facility] 225 [place], [place] [phone] 6 MTH FU W/LABS, REV SCAN 04/13/2024 9:30 AM EST Office Visit Surgical Oncology - [facility] 2084 [facility] [address] [place] [address] Delvis Cheek MD 125 [facility] [address] [place] [address] 1 YEAR F/U [facility] 06/19/2024 10:30 AM EST Office Visit Orthopaedics- Les Valencia 615 [facility] [address] [place] [address] Karly Bautista, BURT [address] [facility] 301 [place] [address] annual visit from date of [...] documented as of this encounter Care Teams Physical Plant Manager Relationship Specialty Start Date End Date Cheo Santoyo DO [address] [place] [phone] PCP - General Family Medicine 07/06/23 documented as of this encounter
--- OUTSIDE RECORDS SUMMARY | 2024-01-13 03:15 | XMS_ITS | Encounter Summary ---
Author Organization Jose Alej[facility] Address [address] [place] [address] Care Team Providers Care Roofing Laborer Name Role Phone Cheo Santoyo Primary Care Provider [phone] Reason for Visit * Auth/Cert (Routine) Specialty Diagnoses / Procedures Referred By Contosman t Referred To Contact Diagnoses Primary osteoarthritis of right hip Primary osteoarthritis of right hip [M16.11] Procedures GA ARTHRP ACETBLR/PROX FEM PROSTC AGRFT/ALGRFT HIP TOTAL ARTHROPLASTY ANTERIOR APPROACH ROBOTIC ASSISTED Maurice Panchal MD [facility] [address] [address] Referral ID Status Reason Start Date Expiration Date Visits Re quested Visits Authorized [id number] 1 1 Encounter Details Date Type Department Care Team (Late st Contact Info) Description 10/19/2023 7:51 AM EDT Anesthesia Event RMP SURGERY 3500 [facility] 17 [place] [address] Kwabena Wong MD 125 [facility] 420 [place], [place] [id number] Anesthesia Record Procedure Summary Procedure Name Responsible Anesthesiologist Anesthesia Start Time Anesthesia Stop Time HIP TOTAL ARTHROPLASTY ANTERIOR APPROACH ROBOTIC ASSISTED (Right: Hip) Kwabena Wong MD 10/19/23 0751 10/19/23 0943 Events Date Time Event Comment 10/19/2023 0740 0751 An Start Location: {AN S tart Location:[id number]} 0751 An Start Data 0751 Case on Time Start? First ca se of the day? Yes On Time Start? Yes If No, Delay due to: {MH AN CASE ON TIME:[id number]} 0758 Block Placed 0759 Anesthesia Ready 0936 [...] by Simona Mcdonald RN 10/19/23 1900 by Raimrez Agosto RN Puncture 08/04/23; 1016; Hip; Left; [...] 0.6 oz pur e alcohol) [facility] Utilities Answer Date Recorded In the past [...] Dr. [address] [place] [phone] Martell Calderon MD [address] [facility] [address] [place] [address] TREMORS/ MEDICARE, FOR LIFE 03/28/2024 8:30 AM EDT Office Visit Primary Care - [address] [address] Cheo Santoyo DO [address] [place] [phone] AWV 04/06/2024 9:45 AM EST [facility] - Maryan Jacobsen Dr[address] 2084 [facility] [address] [place] [address] CBCMP,CEA,FEST 04/06/2024 10:15 AM EST Office Visit [facility] - [facility] 2084 [facility] [address] [place] [address] Georgi Butterfield MD [address] [place] [address] 6 MTH FU W/LABS, REV SCAN 04/13/2024 9:30 AM EST Office Visit Surgical Oncology - [facility] 2084 [facility] [address] [place] [address] Delvis Cheek MD 125 [facility] [address] [place] [address] 1 YEAR F/U [facility] 06/19/2024 10:30 AM EST Office Visit Orthopaedics- Les Valencia 615 [facility] [address] [place] [address] Karly Bautista, PA [address] [place] [phone] annual visit from date of surgery May/Jul [...] 100 mL IVPB (mini-bag) 2,000 mg, IntraVENous, PRACTICAL NURSE TO O.R., 1 dose, On Wed10/19/23 at [...] at 400 mL/hr, Administer over 15 Minutes, PRACTICAL NURSE TO O.R., On Wed10/19/23 at 0645, For [...] documented as of this encounter Care Teams Roofing Laborer Relationship Specialty Start Date End Date Cheo Santoyo DO [address] [place] [phone] PCP - General Family Medicine 07/06/23 documented as of this encounter
--- OUTSIDE RECORDS SUMMARY | 2024-01-13 03:15 | XMS_ITS | Encounter Summary ---
Author Organization Jose Alejandro Pantoja [facility] Address [address] [place] [address] Care Team Providers Care Coiler Name Role Phone Cheo Santoyo Primary Care Provider [phone] Encounter Details Date Type Department Care Team (Late st Contact Info) Description 09/28/2023 Abstract [facility] Hematology & Oncology - [facility]. [address] [facility] [address] [place] [address] Georgi Butterfield MD [address] [place] [address] Social History Tobacco Use Types [...] Visit Neurology - [facility] 2144 [facility] [address] [place] [address] Martell Calderon MD 214 [facility] [address] [place] [address] TREMORS/ MEDICARE, FOR LIFE 03/28/2024 8:30 AM EDT Office Visit Primary Care - [address] [address] Cheo Santoyo DO 1112 [place] [address] AWV 04/06/2024 9:45 AM EST [facility] - [facility] 2084 [facility] [address] [place] [address] CBCMP,CEA,FEST 04/06/2024 10:15 AM EST Office [facility] - [facility] 2084 [facility] [address] [place] [address] Georgi Butterfield MD [address] [place] [address] 6 MTH FU W/LABS, REV SCAN 04/13/2024 9:30 AM EST Office Visit Surgical Oncology - [facility] [address] [facility] [address] [place] [address] Delvis Cheek MD 125 [facility] 660 [place] [address] 1 YEAR F/U [facility] 06/19/2024 10:30 AM EST Office Visit Orthopaedics- Adalberto Valencia 615 [facility] [address] [place] [phone] Karly Bautista, PA [address] [facility] 301 [place] [phone] annual visit from date of surgery May/Jul 2024 for bilateral TKA and right LIZZ with Karly. documented as of this encounter Visit Diagnoses Not on filedocumented in this encounter Additional Health Concerns Assessment Noted Time A fall risk assessment has been complete d for the patient 07/06/2023 9:36 AM EST documented as of this encounter Care Teams Coiler Relationship Specialty Start Date End Date Cheo Santoyo DO [address] [place] [address] PCP - General Family Medicine 07/06/23 documented as of this encounter
--- OUTSIDE RECORDS SUMMARY | 2024-01-13 03:15 | XMS_ITS | Encounter Summary ---
Author Organization Jose Alejandro Pantoja [facility] Address [address] [place] [address] Care Team Providers Care Factory Assembler Name Role Phone Cheo Santoyo Primary Care Provider [phone] Encounter Details Date Type Department Care Team [...] 9:00 AM EDT Office Visit Neurology - [facility] 2144 [facility] [address] [place] [address] Martell Calderon MD 2144 [facility] [address] [place] [address] TREMORS/ MEDICARE, FOR LIFE 03/28/2024 8:30 AM EDT Office Visit Primary Care - [address] [address] Cheo Santoyo DO [address] [place] [address] AWV 04/06/2024 9:45 AM EST Lab [facility] - [facility] 2084 [facility] [address] [place] [address] CBCMP,CEA,FEST 04/06/2024 10:15 AM EST Office Visit [facility] - [facility] 2084 [facility] [address] [place] [address] Georgi Butterfield MD [address] [place] [address] 6 MTH FU W/LABS, REV SCAN 04/13/2024 9:30 AM EST Office Visit Surgical Oncology - [facility] 2084 [facility] [address] [place] [address] Delvis Cheek MD 125 [facility] 660 [place] [address] 1 YEAR F/U [facility] 06/19/2024 10:30 AM EST Office Visit Orthopaedics- Les Valencia 615 [facility] 100 [place] [phone] Karly Bautista, PA 180 [facility] 301 [place] [address] annual visit from date of surgery May/Jul 2024 for bilateral TKA and right LIZZ with Karly. documented as of this encounter Visit Diagnoses Not on filedocumented in this encounter Additional Health Concerns Assessment Noted Time A fall risk assessment has been complete d for the patient 07/06/2023 9:36 AM EST documented as of this encounter Care Teams Factory Assembler Relationship Specialty Start Date End Date Cheo Santoyo DO [address] [place] [phone] PCP - General Family Medicine 07/06/23 documented as of this encounter
--- OUTSIDE RECORDS SUMMARY | 2024-01-13 03:15 | XMS_ITS | Encounter Summary ---
Author Organization [facility] Address [address] [place] [address] Care Team Providers Care Servicing Manager Name Role Phone Cheo Santoyo Moshe REYES Primary Care Provider [phone] Reason for Referral * Imaging (Routine) - Open Specialty Diagnoses / Procedures Referred By [facility] Referred To Contact Radiology Diagnoses Carcinoma of ascending colon (HCC) Malignant neoplasm of intestine (HCC) Procedures CT CHEST W CONTRAST Georgi Butterfield MD [address] [place] [address] Referral ID Status Reason Start Date Expiration Date Visits Re quested Visits Authorized [id number] Open 10/07/2023 10/06/2024 1 1 * Imaging (Routine) - Open Specialty Diagnoses / Procedures Referred By [facility] Referred To Contact Radiology Diagnoses Carcinoma of ascending colon (HCC) Malignant neoplasm of intestine (HCC) Procedures CT ABDOMEN PELVIS W IV CONTRAST Additional Contrast? None (IV CONTRAST) Georgi Butterfield MD [address] [place] [address] Referral ID Status Reason Start Date Expiration Date Visits Re quested Visits Authorized [id number] Open 10/07/2023 10/06/2024 1 1 Reason for Visit * Reason Comments Follow-up Encounter Details Date Type Department Care Team ([facility] st Contact Info) Description 10/07/2023 10:30 AM EDT Office Visit [facility] Hematology & Oncology - [facility] [address] [place] [address] Georgi Butterfield MD [address] [place] [address] Iron deficiency anemia, unspecified iron [...] from the original note were not included. [facility] HEMATOLOGY & ONCOLOGY MD Rosalino Ponce MD Ryan A. Kalinsky, MD Mark T. Burbridge, DO Jenny Riley, MD Margaret Brady, MD Caitlin Mengler, 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, states stress and testing was completed and feed mill manager signed off PONV (postoperative nausea and vomiting) [...] performed by Martinez Guthrie MD at [facility] PAIN MANAGEMENT HIP SURGERY Bilateral 08/04/2023 INTRA ARTICULAR HIP BILATERAL NO PA REQ performed by Martinez Guthrie MD at [facility] PAIN MANAGEMENT JOINT REPLACEMENT Right 2011 shoulder KIDNEY STONE SURGERY 2009 basket removal KNEE ARTHROSCOPY Left 10/13/2021 multiple knee scopes right and left 1997 thru 2021 SHOULDER SURGERY Right 2010 2011 right hemiarthroplasty SUBTOTAL COLECTOMY 2019 R. Hemicolectomy TOTAL KNEE ARTHROPLASTY Left 12/21/2022 LEFT TOTAL KNEE ARTHROPLASTY, ROBOTIC performed by Maurice Panchal MD at [facility] MAIN OR TOTAL KNEE ARTHROPLASTY Right 03/17/2023 RIGHT TOTAL KNEE ARTHROPLASTY, ROBOTIC performed by Maurice Panchal MD at [facility] MAIN OR UPPER GASTROINTESTINAL ENDOSCOPY 2019 Family [...] Office Visit Neurology - [address] [place] [phone] Martell Calderon MD [address] [facility] [address] [place], [place] [id number] TREMORS/ MEDICARE, FOR LIFE 03/28/2024 8:30 AM EDT Office Visit Primary Care - [address] [address] Cheo Santoyo, [address] [place] [address] AWV 04/06/2024 9:45 AM EST Lab [place] [facility] - [facility] [address] [facility] [address] [place] [address] CBCMP,CEA,FEST 04/06/2024 10:15 AM EST Office Visit [place] [facility] - [facility] [address] [facility] [address] [place] [address] Georgi Butterfield MD 3510 [facility] [address] [place] [address] 6 MTH FU W/LABS, REV SCAN 04/13/2024 9:30 AM EST Office Visit Surgical Oncology - [facility] [address] [facility] [address] [place] [address] Delvis Cheek MD [address] [facility] [address] [place] [address] 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 [address] [place] [address], [facility] * (ABNORMAL) Comprehensive Metabolic Panel (10/07/2023 10:11 AM EDT) Sodium 140 135 - 145 mmol/L [facility] Potassium 4.6 3.5 - 5.3 mmol/L [facility] Chloride 103 98 - 107 mmol/L [facility] CO2 23 22 - 29 mmol/L [facility] Glucose 148(H) 70 - 99 mg/dL [facility] BUN 17 8 - 23 mg/dL [facility] Creatinine 1.1 0.7 - 1.3 mg/dL [facility] Anion Gap 14 2 - 17 mmol/L [facility] Osmolaliy Calculated 284 270 - 287 mOsm/kg [facility] Calcium 9.9 8.5 - 10.7 mg/dL [facility] Total Protein 6.6 5.7 - 8.3 g/dL [facility] Albumin 4.7 3.5 - 5.2 g/dL [facility] Globulin 1.9 1.9 - 4.4 g/dL [facility] Albumin/Globulin Ratio 2.42 1.00 - 2.70 [facility] Total Bilirubin 0.65 0.00 - 1.20 mg/dL [facility] Alk Phosphatase 77 40 - 130 unit/L [facility] AST 21 0 - 50 unit/L [facility] ALT 29 0 - 50 unit/L [facility] Est, Glom Filt Rate 74 >=60 mL/min/1.7 3m? [facility] Comment: VERIFIED by Discern Expert. [...] GFR in adults. Test Performed at: [facility] [address] [place] [address] [place] [address] Blood BLOOD SPECIMEN / Unknown 10/07/2023 10:11 AM EDT 10/07/2023 12:28 PM EDT Georgi Butterfield MD CHEMISTRY ORDERABLE S Performing Organization Address [facility] de Phone Number [facility] [address] [place] [address] * Folate (10/07/2023 10:11 AM EDT) [facility] Folate 6.86 4.80 - 24.20 ng/mL [facility] Comment: Test Performed at: [facility] [address] [place] [address] [place] [address] Blood BLOOD SPECIMEN / Unknown 10/07/2023 10:11 AM EDT 10/07/2023 12:28 PM EDT Georgi Butterfield MD CHEMISTRY ORDERABLE S Performing Organization Address [facility] de Phone Number [facility] [address] [place] [address] * Vitamin B12 (10/07/2023 10:11 AM EDT) [facility] Vitamin B-12 432 232 - 1245 pg/mL [facility] Comment: Effective 05/05/17 Vitamin B12 Methodology Change - Vitamin B12 Reference Range has been revised. Test Performed at: [facility] [address] [place] [address] [place] [address] Blood BLOOD SPECIMEN / Unknown 10/07/2023 10:11 AM EDT 10/07/2023 12:28 PM EDT Georgi Butterfield MD CHEMISTRY ORDERABLE S Performing Organization Address City/[facility] Co de Phone Number [facility] [address] [place] [address] * Iron and TIBC (10/07/2023 10:11 AM EDT) [facility] Iron 85 59 - 158 mcg/dL [facility] UIBC 239.2 112.0 - 347.0 mcg/dL [facility] TIBC 325 250 - 450 mcg/dL [facility] Iron % Saturation 26 20 - 40 % [facility] Comment: Test Performed at: [facility] [address] [place] [address] [place] [address] Serum BLOOD SPECIMEN / Unknown 10/07/2023 10:11 AM EDT 10/07/2023 12:28 PM EDT Georgi Butterfield MD CHEMISTRY ORDERABLE S Performing Organization Address [facility] de Phone Number [facility] [address] [place] [address] * Ferritin (10/07/2023 10:11 AM EDT) [facility] Ferritin 112.1 30.0 - 400.0 ng/mL [facility] Comment: Test Performed at: [facility] [address] [place] [address] [place] [address] Blood BLOOD SPECIMEN / Unknown 10/07/2023 10:11 AM EDT 10/07/2023 12:28 PM EDT Georgi Butterfield MD CHEMISTRY ORDERABLE S Performing Organization Address City/[facility] de Phone Number [facility] [address] [place] [address] * Reticulocytes (10/07/2023 10:11 AM EDT) Pathologist [facility] RBC 5.14 4.00 - 5.60 x10e6/mcL [facility] Retic Ct Pct 1.4 0.5 - 2.0 % [facility] Retic Ct Abs 0.0735 0.0235 - 0.1220 /mcL [facility] Comment: Test Performed at: [facility] [address] [facility] [address] Blood BLOOD SPECIMEN / Unknown 10/07/2023 10:11 AM EDT 10/07/2023 12:28 PM EDT Georgi Butterfield MD HEMATOLOGY ORDERABL ES Performing Organization Address [facility] de Phone Number [facility] [address] [place] [address] * Soluble transferrin receptor (10/07/2023 10:11 AM EDT) [facility] Soluble Transferrin Recept 15.9 12.2 - 27.3 nmol/L [facility] Comment: Performed At: [address] [id number] Ajit Swift MD Ph:[phone] Test Performed at: [facility] [address] [facility] [place] [address] Blood BLOOD SPECIMEN / Unknown 10/07/2023 10:11 AM EDT 10/07/2023 12:28 PM EDT Georgi Butterfield MD HEMATOLOGY ORDERABL ES Performing Organization Address [facility] de Phone Number [facility] [address] [place] [address] * CEA (Serial Monitor) (10/07/2023 10:11 AM EDT) [facility] CEA (SERIAL MONITOR) 2.1 0.0 - 4.7 ng/mL [facility] Comment: ? Nonsmokers ?<3.9 ? Smokers ? <5.6 [facility] Electrochemiluminescence Immunoassay (ECLIA) Values obtained with different assay methods or kits cannot be used interchangeably. ??Results cannot be interpreted as absolute evidence of the presence or absence of malignant disease. Performed At: [facility] [id number] Ajit Swift MD Ph:[phone] Test Performed at: [facility] [address] [facility] [address] Blood BLOOD SPECIMEN / Unknown 10/07/2023 10:11 AM EDT 10/07/2023 12:28 PM EDT Georgi Butterfield MD CHEMISTRY ORDERABLE S [facility] [address] [place] [address] documented in this encounter Visit Diagnoses Diagnosis [...] documented as of this encounter Care Teams Servicing Manager Relationship Specialty Start Date End Date Cheo Santoyo DO [address] [place] [phone] PCP - General Family Medicine 07/06/23 documented as of this encounter
--- OUTSIDE RECORDS SUMMARY | 2024-01-13 03:15 | XMS_ITS | Encounter Summary ---
Author Organization [facility] Address [address] [place] [address] Care Team Providers Care Drill Sharpener Operator Name Role Phone Cheo Santoyo Moshe REYES Primary Care Provider [phone] Encounter Details Date Type Department Care Team (Late st Contact Info) Description 10/05/[address] [facility] Hematology & Oncology - [address] [place] [address] Georgi Butterfield MD 35[address] [facility] [address] [place] [address] Iron deficiency anemia, unspecified iron [...] Office Visit Neurology - [facility] [address] [facility] [address] [place] [address] Martell Calderon MD 214 [facility] [address] [place] [address] TREMORS/ MEDICARE, FOR LIFE 03/28/2024 8:30 AM EDT Office Visit Primary Care - [address] [address] Cheo Santoyo DO [address] [place] [address] AWV 04/06/2024 9:45 AM EST Lab [place] [facility] - [facility] [address] [facility] [address] [place] [address] CBCMP,CEA,FEST 04/06/2024 10:15 AM EST Office Visit [place] [facility] - [facility] [address] [facility] [address] [place] [address] Georgi Butterfield MD [address] [place] [address] 6 MTH FU W/LABS, REV SCAN 04/13/2024 9:30 AM EST Office Visit Surgical Oncology - [facility] [address] [facility] [address] [place] [address] Delvis Cheek MD 125 [facility] [address] [place] [address] 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 [address] [place] [phone] Karly Bautista PA [address] [place] [address] annual visit from date of surgery May/Jul 2024 for bilateral TKA and right LIZZ with Karly. documented as of this encounter Results * CEA (Serial Monitor) (10/07/2023 10:11 AM EDT) CEA (SERIAL MONITOR) 2.1 0.0 - 4.7 ng/mL [facility] Comment: ? Nonsmokers ?<3.9 ? Smokers ? <5.6 [facility] Electrochemiluminescence Immunoassay (ECLIA) Values obtained with different assay methods or kits cannot be used interchangeably. ??Results cannot be interpreted as absolute evidence of the presence or absence of malignant disease. Performed At: [address] [id number] Ajit Swift MD Ph:[phone] Test Performed at: [facility] [address] [facility] [place] [address] Blood BLOOD SPECIMEN / Unknown 10/07/2023 10:11 AM EDT 10/07/2023 12:28 PM EDT Georgi Butterfield MD CHEMISTRY ORDERABLE S Performing Organization Address [facility] de Phone Number [facility] [address] [place] [address] * Soluble transferrin receptor (10/07/2023 10:11 AM EDT) Soluble Transferrin Recept 15.9 12.2 - 27.3 nmol/L [facility] Comment: Performed At: [facility] [id number] Ajit Swift MD Ph:[phone] Test Performed at: [facility] [address] [facility] [place] [address] Blood BLOOD SPECIMEN / Unknown 10/07/2023 10:11 AM EDT 10/07/2023 12:28 PM EDT Georgi Butterfield MD HEMATOLOGY ORDERABL ES Performing Organization Address [facility] de Phone Number [facility] [address] [place] [address] * Reticulocytes (10/07/2023 10:11 AM EDT) RBC 5.14 4.00 - 5.60 x10e6/mcL [facility] Retic Ct Pct 1.4 0.5 - 2.0 % [facility] Retic Ct Abs 0.0735 0.0235 - 0.1220 /mcL [facility] Comment: Test Performed at: [facility] [address] [facility] [place] [address] Blood BLOOD SPECIMEN / Unknown 10/07/2023 10:11 AM EDT 10/07/2023 12:28 PM EDT Georgi Butterfield MD HEMATOLOGY ORDERABL ES Performing Organization Address [facility] Co de Phone Number [facility] [address] [place] [address] * Ferritin (10/07/2023 10:11 AM EDT) Pathologist [facility] Ferritin 112.1 30.0 - 400.0 ng/mL [facility] Comment: Test Performed at: [facility] [address] [facility] [place] [address] Blood BLOOD SPECIMEN / Unknown 10/07/2023 10:11 AM EDT 10/07/2023 12:28 PM EDT Georgi Butterfield MD CHEMISTRY ORDERABLE S Performing Organization Address [facility] de Phone Number [facility] [address] [place] [address] * Iron and TIBC (10/07/2023 10:11 AM EDT) [facility] Iron 85 59 - 158 mcg/dL [facility] UIBC 239.2 112.0 - 347.0 mcg/dL [facility] TIBC 325 250 - 450 mcg/dL [facility] Iron % Saturation 26 20 - 40 % [facility] Comment: Test Performed at: [facility] [address] [facility] [place] [address] Serum BLOOD SPECIMEN / Unknown 10/07/2023 10:11 AM EDT 10/07/2023 12:28 PM EDT Georgi Butterfield MD CHEMISTRY ORDERABLE S Performing Organization Address [facility] Co de Phone Number [facility] [address] [place] [address] * Vitamin B12 (10/07/2023 10:11 AM EDT) Pathologist [facility] Vitamin B-12 432 232 - 1245 pg/mL [facility] Comment: Effective 05/05/17 Vitamin B12 Methodology Change - Vitamin B12 Reference Range has been revised. Test Performed at: [facility] [address] [facility] [place] [address] Blood BLOOD SPECIMEN / Unknown 10/07/2023 10:11 AM EDT 10/07/2023 12:28 PM EDT Georgi Butterfield MD CHEMISTRY ORDERABLE S Performing Organization Address [facility] de Phone Number [facility] [address] [place] [address] * Folate (10/07/2023 10:11 AM EDT) Pathologist [facility] Folate 6.86 4.80 - 24.20 ng/mL [facility] Comment: Test Performed at: [facility] [address] [facility] [place] [address] Blood BLOOD SPECIMEN / Unknown 10/07/2023 10:11 AM EDT 10/07/2023 12:28 PM EDT Georgi Butterfield MD CHEMISTRY ORDERABLE S Performing Organization Address [facility] de Phone Number [facility] [address] [place] [address] * (ABNORMAL) Comprehensive Metabolic Panel (10/07/2023 10:11 AM EDT) [facility] Sodium 140 135 - 145 mmol/L [facility] Potassium 4.6 3.5 - 5.3 mmol/L [facility] Chloride 103 98 - 107 mmol/L [facility] CO2 23 22 - 29 mmol/L [facility] Glucose 148(H) 70 - 99 mg/dL [facility] BUN 17 8 - 23 mg/dL [facility] Creatinine 1.1 0.7 - 1.3 mg/dL [facility] Anion Gap 14 2 - 17 mmol/L [facility] Osmolaliy Calculated 284 270 - 287 mOsm/kg [facility] Calcium 9.9 8.5 - 10.7 mg/dL [facility] Total Protein 6.6 5.7 - 8.3 g/dL [facility] Albumin 4.7 3.5 - 5.2 g/dL [facility] Globulin 1.9 1.9 - 4.4 g/dL [facility] Albumin/Globulin Ratio 2.42 1.00 - 2.70 [facility] Total Bilirubin 0.65 0.00 - 1.20 mg/dL [facility] Alk Phosphatase 77 40 - 130 unit/L [facility] AST 21 0 - 50 unit/L [facility] ALT 29 0 - 50 unit/L [facility] Est, Glom Filt Rate 74 >=60 mL/min/1.7 3m? [facility] Comment: VERIFIED by Discern Expert. [...] estimating GFR in adults. Test Performed at: [facility] [address] [facility] [place] [address] Blood BLOOD SPECIMEN / Unknown 10/07/2023 10:11 AM EDT 10/07/2023 12:28 PM EDT Georgi Butterfield MD CHEMISTRY ORDERABLE S [facility] [address] [place] [address] documented in this encounter Visit Diagnoses Diagnosis Iron deficiency anemia, unspecified iron deficiency anemia type- Primary Malignant neoplasm of intestine (HCC) Malignant neoplasm of intestinal tract, part unspecified documented in this encounter Additional Health Concerns Assessment Noted Time A fall risk assessment has been complete d for the patient 07/06/2023 9:36 AM EST documented as of this encounter Care Teams Drill Sharpener Operator Relationship Specialty Start Date End Date Cheo Santoyo DO [address] [place] [phone] PCP - General Family Medicine 07/06/23 documented as of this encounter
--- OUTSIDE RECORDS SUMMARY | 2024-01-13 03:15 | XMS_ITS | Encounter Summary ---
Author Organization Jose Alejandro [facility]antoja [facility] Address [address] [place] [address] Care Team Providers Care Salt Lifter Name Role Phone Yarelis Cheo Moshe REYES Primary Care Provider [phone] Reason for Visit * Reason Onset Date Comments Call Patient 09/29/2023 Encounter Details Date Type Department Care Team (Late st Contact Info) Description 09/29/2023 Telephone Orthopaedics - Emy Sae[address] Dr. [address] [facility] [address] [place] [address] Maurice Panchal MD 9[address] [facility] 17 [facility] 105 [place] [address] Call Patient Social History Tobacco [...] Visit Neurology - [facility] [address] [facility] [address] [place] [address] Martell Calderon MD 2145 [facility] [address] [place] [address] TREMORS/ MEDICARE, FOR LIFE 03/28/2024 8:30 AM EDT Office Visit Primary Care - [address] [address] Cheo Santoyo DO [address] [place] [address] AWV 04/06/2024 9:45 AM EST Lab [place] [facility] - [facility] [address] [facility] [address] [place] [address] CBCMP,CEA,FEST 04/06/2024 10:15 AM EST Office Visit [place] [facility] - [facility] [address] [facility] [address] [place] [address] Georgi Butterfield MD [address] [place] [address] 6 MTH FU W/LABS, REV SCAN 04/13/2024 9:30 AM EST Office Visit Surgical Oncology - [facility] [address] [facility] [address] [place] [address] Delvis Cheek MD [address] [facility] [address] [place] [phone] 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 [address] [place] [phone] Karly Bautista, PA [address] [place] [address] annual visit from date of surgery May/Jul 2024 for bilateral TKA and right LIZZ with Karly. documented as of this encounter Visit Diagnoses Not on filedocumented in this encounter Additional Health Concerns Assessment Noted Time A fall risk assessment has been complete d for the patient 07/06/2023 9:36 AM EST documented as of this encounter Care Teams Salt Lifter Relationship Specialty Start Date End Date Cheo Santoyo DO [address] [place] [phone] PCP - General Family Medicine 07/06/23 documented as of this encounter
--- OUTSIDE RECORDS SUMMARY | 2024-01-13 03:15 | XMS_ITS | Encounter Summary ---
Author Organization Jose Alejandro Pantoja [facility] Address [address] [place] [address] Care Team Providers Care Manager Mac Name Role Phone Cheo Santoyo DO Primary Care Provider [phone] Reason for Visit * Reason Onset Date Comments new pharm 12/14/2023 Encounter Details Date Type Department Care Team ([facility] st Contact Info) Description 12/14/2023 Telephone Primary Care - [address] [phone] Cheo Santoyo DO [address] [place] [phone] new pharm Social History Tobacco Use Types Packs/Day Years Used Date Smoking Tobacco: Former Cigarettes 1 27 0 05/31/1969 - 05/31/1996 Smokeless Tobacco: Never Alcohol Use Standard Drinks/Week Comments Yes 4 (1 standard drink = 0.6 oz pur e alcohol) [facility] Utilities Answer Date Recorded In the past 12 months has [employer], gas, oil, or water [employer] threatened to shut off services in your [...] No 10/19/2023 Housing Stability Vital Sign Answer Popyee e Recorded In the last 12 months, [...] place to sleep or slept in a correction (including now)? No 10/19/2023 Food Insecurity Answer [...] AM EDT Office Visit Neurology - [facility] [address] [facility] [address] [place] [address] Martell Calderon MD 2144 [facility] [address] [place] [address] TREMORS/ MEDICARE, FOR LIFE 03/28/2024 8:30 AM EDT Office Visit Primary Care - [address] [phone] Cheo Santoyo DO [address] [place] [phone] AWV 04/06/2024 9:45 AM EST Lab [facility] - [facility] [address] [facility] [address] [place] [address] CBCMP,CEA,FEST 04/06/2024 10:15 AM EST Office Visit [facility] - [facility] 20[address] [facility] [address] [place] [address] Georgi Butterfield MD [address] [place] [address] 6 MTH FU W/LABS, REV SCAN 04/13/2024 9:30 AM EST Office Visit Surgical Oncology - [facility] 20[address] [facility] [address] [place] [address] Delvis Cheek MD [address] [facility] [address] [place] [address] 1 YEAR F/U [facility] 06/19/2024 10:30 AM EST Office Visit Orthopaedics- Les Valencia [address] [place] [address] 100 [place] [address] Karly Bautista PA 180 [facility] 301 [place] [address] annual visit from date of [...] as of this encounter Care Teams Manager Mac Relationship Specialty Start Date End Date Cheo Santoyo DO [address] [place] [phone] PCP - General Family Medicine 07/06/23 documented as of this encounter
--- OUTSIDE RECORDS SUMMARY | 2024-01-13 03:15 | XMS_ITS | Encounter Summary ---
Author Organization Jose Alejandro Pantoja [facility] Address [address] [place] [address] Care Team Providers Care Campus Aide Name Role Phone Cheo Santoyo DO Primary Care Provider [phone] Reason for Visit * Reason Onset Date Comments Call Patient 10/26/2023 Encounter Details Date Type Department Care Team (Late st Contact Info) Description 10/26/2023 Telephone Orthopaedics - [address] [facility] 110, [facility] 105 [place] [address] Maurice Elizabeth PA 6260 [facility] 17 [facility] 105 [place] [address] Call Patient Social History Tobacco Use Types Packs/Day Years Used Date Smoking Tobacco: Former Cigarettes 1 27 0 05/31/1969 - 05/31/1996 Smokeless Tobacco: Never Alcohol Use Standard Drinks/Week Comments Yes 7 (1 standard drink = 0.6 oz pur e alcohol) [facility] Utilities Answer Date Recorded In the past 12 months has [employer], gas, oil, or water [employer] threatened to shut off services in your [...] 9:00 AM EDT Office Visit Neurology - [facility] 2[address] [facility] [address] [place] [address] Martell Calderon MD 2144 [facility] [address] [place], [place] [id number] TREMORS/ MEDICARE, FOR LIFE 03/28/2024 8:30 AM EDT Office Visit Primary Care - [address] [phone] Cheo [address]oyo [address] [phone] AWV 04/06/2024 9:45 AM EST Lab [facility] - [facility] 2084 [facility] [address] [place] [address] CBCMP,CEA,FEST 04/06/2024 10:15 AM EST Office Visit [facility] - [facility] [address] [facility] [address] [place] [address] Georgi Butterfield MD 3510 [facility] 17N [facility] 225 [place] [address] 6 MTH FU W/LABS, REV SCAN 04/13/2024 9:30 AM EST Office Visit Surgical Oncology - [facility] 20[address] [facility] [address] [place] [address] Delvis Cheek MD 125 [facility] 660 [place] [address] 1 YEAR F/U [facility] 06/19/2024 10:30 AM EST Office Visit Orthopaedics- Les Valencia 268 [facility] 100 [place] [address] Karly Bautista, BURT 180 [facility] 301 [place] [address] annual visit from date of surgery May/Jul 2024 for bilateral TKA and right LIZZ with Karly. documented as of this encounter Visit Diagnoses Not on filedocumented in this encounter Additional Health Concerns Assessment Noted Time A fall risk assessment has been complete d for the patient 07/06/2023 9:36 AM EST documented as of this encounter Care Teams Campus Aide Relationship Specialty Start Date End Date Cheo Santoyo DO [address] [place] [phone] PCP - General Family Medicine 07/06/23 documented as of this encounter
--- OUTSIDE RECORDS SUMMARY | 2024-01-13 03:15 | XMS_ITS | Encounter Summary ---
Author Organization Jose Alejandro Pantoja [facility] Address [address] [place] [address] Care Team Providers Care Classification Case Manager Name Role Phone Cheo Santoyo DO Primary Care Provider [phone] Reason for Visit * Reason Onset Date Comments Med Refill Clerical 09/03/2023 Encounter Details Date Type Department Care Team ([facility] Contact Info) Description 09/03/2023 Telephone Primary Care - [address] [phone] Cheo Santoyo DO [address] [place] [phone] Med Refill Clerical Social History Tobacco [...] Center, [place] 2[address] [facility] [address] [place] [address] Martell Calderon MD 214 [facility] [address] [place] [address] TREMORS/ MEDICARE, FOR LIFE 03/28/2024 8:30 AM EDT Office Visit Primary Care - [address] [phone] Cheo Santoyo DO [address] [place] [phone] AWV 04/06/2024 9:45 AM EST Lab [facility] - [facility] [place] 2084 [facility] [address] [place] [address] CBCMP,CEA,FEST 04/06/2024 10:15 AM EST Office Visit [facility] - [facility] [place] 2084 [facility] [address] [place] [address] Georgi Butterfield MD [address] [place] [address] 6 MTH FU W/LABS, REV SCAN 04/13/2024 9:30 AM EST Office Visit Surgical Oncology - [facility] [place] 1745 [facility] [address] [place] [address] Delvis Cheek MD 125 [facility] [address] [place] [phone] 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 [address] [place] [phone] Karly Bautista W, PA [address] [place] [phone] annual visit from date of surgery May/Jul 2024 for bilateral TKA and right LIZZ with Karly. documented as of this encounter Visit Diagnoses Not on filedocumented in this encounter Additional Health Concerns Assessment Noted Time A fall risk assessment has been complete d for the patient 07/06/2023 9:36 AM EST documented as of this encounter Care Teams Classification Case Manager Relationship Specialty Start Date End Date Cheo Santoyo DO [address] [place] [phone] PCP - General Family Medicine 07/06/23 documented as of this encounter
--- OUTSIDE RECORDS SUMMARY | 2024-01-13 03:15 | XMS_ITS | Encounter Summary ---
Author Organization Jose Alejandro [facility] Address [address] [place] [address] Care Team Providers Care Human Resources Manager Manufacturing Name Role Phone Cheo Santoyo Primary Care Provider [phone] Reason for Visit * Reason Comments Post-Op Check S/P Right LIZZ DOS: Encounter Details Date Type Department Care Team (Late st Contact Info) Description 11/16/2023 11:30 AM EDT Office Visit Orthopaedics- Les Valencia [address] [employer] [facility] 100 [place] [phone] Faizan Bautista, BURT [address] [facility] 301 [place] [address] Aftercare following right hip joint replacement surgery (Primary Dx) Social History Tobacco Use Types Packs/Day Years Used Date Smoking Tobacco: Former Cigarettes 1 27 0 05/31/1969 - 05/31/1996 Smokeless Tobacco: Never Alcohol Use Standard Drinks/Week Comments Yes 4 (1 standard drink = 0.6 oz pur e alcohol) [facility] Utilities Answer Date Recorded In the past 12 months has [employer], gas, oil, or water company threatened to [...] office today on 11/16/2023. X-rays revealed well-positioned [place] hip arthroplasty components without issues or concerns. [...] - [facility] [address] [facility] [address] [place] [address] Martell Calderon MD 2144 [facility] [address] [place] [address] TREMORS/ MEDICARE, FOR LIFE 03/28/2024 8:30 AM EDT Office Visit Primary Care - [address] [phone] [place] [address] [place] [phone] AWV 04/06/2024 9:45 AM EST Lab [facility] 2084 [facility] [address] [place] [address] CBCMP,CEA,FEST 04/06/2024 10:15 AM EST Office Visit [facility] - [facility] 2084 [facility] [address] [place] [address] Georgi Butterfield MD [address] [place], [place] [phone] 6 MTH FU W/LABS, REV SCAN 04/13/2024 9:30 AM EST Office Visit Surgical Oncology - [facility] 8307 [facility] [address] [place] [address] Delvis Cheek MD 125 [address] [place] [address] 1 YEAR F/U [facility]ARC[facility] 06/19/2024 10:30 AM EST Office Visit Orthopaedics- Les Valencia 615 [facility] [address] [place] [address] Faizan Bautista PA [address] [place] [address] annual visit from date of surgery May/Jul 2024 for bilateral TKA and right LIZZ with Faizan. documented as of this encounter Procedures Procedure [...] documented as of this encounter Care Teams Human Resources Manager Manufacturing Relationship Specialty Start Date End Date Cheo Santoyo DO [address] [place] [phone] PCP - General Family Medicine 07/06/23 documented as of this encounter
--- OUTSIDE RECORDS SUMMARY | 2024-01-13 03:15 | XMS_ITS | Encounter Summary ---
Author Organization Jose Alejandro Pantoja [facility] Address [address] [place] [address] Care Team Providers Care Bowling Alley Floors Installer Name Role Phone Cheo Santoyo Primary Care Provider Encounter Details Date Type Department Care Team (Late st Contact Info) Description 10/07/2023 Orders Only [place] - [facility] [address] [facility] [address] [place] [address] Georgi Butterfield MD [address] [place] [address] Iron deficiency anemia, unspecified iron [...] Neurology - [address] [facility] [address] [place] [address] Martell Calderon MD 2145 [facility] [address] [place] [address] TREMORS/ MEDICARE, FOR LIFE 03/28/2024 8:30 AM EDT Office Visit Primary Care - [address] [phone] Cheo Santoyo DO [address] [place] [phone] AWV 04/06/2024 9:45 AM EST Lab [place] [facility] - [facility] 2084 [facility] [address] [place] [address] CBCMP,CEA,FEST 04/06/2024 10:15 AM EST Office Visit [place] 2084 [facility] [address] [place] [address] Georgi Butterfield MD [address] [place] [address] 6 MTH FU W/LABS, REV SCAN 04/13/2024 9:30 AM EST Office Visit Surgical Oncology - [facility] 2087 [facility] [address] [place] [address] Delvis Cheek MD 125 [facility] [address] [place] [address] 1 YEAR F/U [facility]ARCIN[facility] OF [facility] 06/19/2024 10:30 AM EST Office Visit Orthopaedics- Les Valencia 615 [facility] [address] 100 [place] [address] Karly Bautista PA [address] [place] [address] annual visit from date of [...] Testing Location: [address], [facility] [address], Georgi Butterfield MD HEMATOLOGY ORDERABL ES [facility] HEMATOLOGY & ONCOLOGY CC [address] [facility] [address] [place] [address] documented in this encounter Visit Diagnoses [...] documented as of this encounter Care Teams Bowling Alley Floors Installer Relationship Specialty Start Date End Date Cheo Santoyo DO [address] [place] [phone] PCP - General Family Medicine 07/06/23 documented as of this encounter
--- OUTSIDE RECORDS SUMMARY | 2024-01-13 03:15 | XMS_ITS | Encounter Summary ---
Author Organization Jose Alejandro Pantoja Kristanmarysol deandra [facility] Address [address] [place] [address] Care Team Providers Care Moccasin Sewer Name Role Phone Cheo Santoyo DO Primary Care Provider [phone] Encounter Details Date Type Department Care Team ([facility] st Contact Info) Description 10/21/2023 Abstract Primary Care - [address] [phone] Cheo Santoyo DO [address] [place] [phone] Social History Tobacco Use Types Packs/Day Years Used Date Smoking Tobacco: Former Cigarettes 1 27 0 05/31/1969 - 05/31/1996 Smokeless Tobacco: Never Alcohol Use Standard Drinks/Week Comments Yes 7 (1 standard drink = 0.6 oz pur e alcohol) [facility] Utilities Answer Date Recorded In the past 12 months has [employer], [employer], oil, or water [employer] threatened to shut off services in your [...] - [facility] [address] [facility] [address] [place] [address] Martell Calderon MD 2144 [facility] [address] [place] [address] TREMORS/ MEDICARE, FOR LIFE 03/28/2024 8:30 AM EDT Office Visit Primary Care - [address] [phone] Cheo Santoyo, DO 1112 [place] [address] AWV 04/06/2024 9:45 AM EST Lab [facility] [facility] - [facility] [address] [facility] [address] [place] [address] CBCMP,CEA,FEST 04/06/2024 10:15 AM EST Office Visit [facility] - [facility] 20[address] [facility] [address] [place] [address] Georgi Butterfield MD 3510 [facility] 17N [facility] 225 [place], [place] [phone] 6 MTH FU W/LABS, REV SCAN 04/13/2024 9:30 AM EST Office Visit Surgical Oncology - [facility] 2084 [facility] [address] [place] [address] Delvis Cheek MD 125 [facility] [address] [place] [address] 1 YEAR F/U [facility]EN[facility]ARCINOMA OF [employer] [facility]ECUM 06/19/2024 10:30 AM EST Office Visit Orthopaedics- Les Valencia 615 [facility] [address] 100 [place] [address] Karly Bautista, BURT 180 [facility] 301 [place] [address] annual visit from date of surgery May/Jul 2024 for bilateral TKA and right LIZZ with Karly. documented as of this encounter Visit Diagnoses Not on filedocumented in this encounter Additional Health Concerns Assessment Noted Time A fall risk assessment has been complete d for the patient 07/06/2023 9:36 AM EST documented as of this encounter Care Teams Moccasin Sewer Relationship Specialty Start Date End Date Cheo Santoyo DO [address] [place] [phone] PCP - General Family Medicine 07/06/23 documented as of this encounter
--- OUTSIDE RECORDS SUMMARY | 2024-01-13 03:15 | XMS_ITS | Encounter Summary ---
Author Organization [facility] Address [address] [place] [address] Care Team Providers Care Lead Person Name Role Phone Cheo Santoyo Primary Care Provider [phone] Reason for Visit * Auth/Cert (Routine) Specialty Diagnoses / Procedures Referred By Rachid t Referred To Contact Diagnoses Primary osteoarthritis of right hip Primary osteoarthritis of right hip [M16.11] Procedures NV ARTHRP ACETBLR/PROX FEM PROSTC AGRFT/ALGRFT HIP TOTAL ARTHROPLASTY ANTERIOR APPROACH ROBOTIC ASSISTED Maurice Panchal MD [address] [address] Referral ID Status Reason Start Date Expiration Date Visits Re quested Visits Authorized [id number] 1 1 Encounter Details Date Type Department Care Team (Late st Contact Info) Description 10/19/2023 8:15 AM EDT - 10/19/2023 9:00 AM EDT Surgery RMP SURGERY [address] [place] [address] Maurice Panchal MD [address] [id number] HIP TOTAL ARTHROPLASTY ANTERIOR APPROACH ROBOTIC ASSISTED [...] 0.6 oz pur e alcohol) [facility] Utilities Answer Date Recorded In the past 12 months has th e electric, gas, oil, or water [employer] threatened to shut off services in [...] have X-rays every year or two. ?? [phone] [employer]. All rights reserved. This information is not intended as a substitute for professional medical care. Always follow your healthcare professional's instructions. * Attachments The following attachments cannot be sent through Care Everywhere. * acetaminophen (oral) (Vincentian) * aspirin (oral) (Vincentian) * celecoxib (Vincentian) * docusate (oral/rectal) (Vincentian) * Constipation (Vincentian) * DVT (Deep Vein Thrombosis) (Vincentian) * Pulmonary Embolism (Vincentian) documented in this encounter Medications at Time [...] complication, without long-term current use of insulin ([facility]) Inject 0.5 mg once weekly [...] (with RW) ADL Treatment (12 Minutes) CPT 73195: Self care including Scooting, Transfer Training, Sitting [...] Learning: None Education Outcome: Verbalized understanding;Demonstrated understanding [facility]?6 Clicks?? Basic ADL Inpatient Short Form [...] How much help for eating meals?: None [facility] Inpatient Daily Activity Raw Score: 22 [...] 10:03 AM EDT Orthopedic Progress Note Date:10/20/2023 Room:[address] [place] [address] Patient Name:Martínez Toribio Date of :1955 Age:68 [...] creator for further clarification. * Chrissy Mcdonnell, FRUIT COORDINATOR - 10/20/2023 8:20 AM EDT Images from the original note were not included. Acute Care Physical Therapy Treatment Note Observation (FRUIT COORDINATOR/PT Visit Days : 2) Time In: 0755 [...] a pastmedical history of Ryan's esophagus, Cancer ([facility]), Chronic back pain, Diabetes (HCC), DJD (degenerative [...] Within Normal Limits Orientation Level: Oriented X4 [facility]?6 Clicks?? Basic Mobility Inpatient Short Form How [...] 3-5 steps with a railing?: A Little AM-[facility] Inpatient Mobility Raw Score : 20 AM-[facility] Inpatient T-Scale Score : 47.67 Mobility Inpatient CMS 0-100% Score: 35.83 Mobility Inpatient [facility] G-Code Modifier : CJ TREATMENT Bed [...] VERBALIZE AND DEMONSTRATE PROPERLY Therapeutic Exercise (CPT 92781) (5 minutes) Exercise Treatment: ANKLE PUMPS, QUAD SETS, GLUTEAL SETS X 10; INSTRUCTED OTHERWISE TO ONLY AMBULATE FOR EXERCISE To Improve:activity tolerance, AROM, strength, and mobility Gait Training (19 Minutes) CPT 74227: Gait training for 250 feet utilizing Gait [...] KNEES REPLACED IN THE PAST. 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 REVIEWED ANTI-EMBOLICS AND INSTRUCTED TO OTHERWISE AMBULATE [...] activities Goals ALL MET Short Term Goals Fpc Goals Time Frame [...] included. Acute Care Physical Therapy Evaluation Observation (FRUIT COORDINATOR/PT Visit Days : 1) Time In: 1600 [...] a pastmedical history of Ryan's esophagus, Cancer ([facility]), Chronic back pain, Diabetes ([facility]), DJD (degenerative joint disease), GERD (gastroesophageal reflux disease), Hip pain, HTN (hypertension), Hyperlipidemia, IBS (irritable bowel syndrome), Left bundle branch block (LBBB), Post-operative nausea andvomiting, Sleep apnea, Spinal stenosis, Tremor, Type 2 diabetes mellitus without complication ([facility]), and Wears glasses. He also [...] Therapeutic activ ities Goals Short Term Goals Scout Executive Goals Time Frame for Short Term Goals: [...] Procedure Patient Instructions Procedure Location hospital:[facility] [address] [place]- Your [...] on the day of your procedure call [facility] Preopat [phone]. Skin Preparation: Wash with Hibiclens or an [...] wear artificial nails and only clear nail belarusian on natural nails. Nails must be trimmed [...] Living Will and/or Medical Durable Power of Segment Assembler if you have one Bring a list [...] you have any additional questions please contact [phone]. To pre-register for your procedure please call [phone] Option 1. For financial questions regarding your procedure at a [facility], please contact [phone]. For financial questions regarding anesthesia at a [facility], please contact [phone]. For [employer] Patient Portal help please call [phone]. documented in this encounter Plan of Treatment Upcoming Encounters Date Type Department Care Team (Late st Contact Info) Description 03/24/2024 9:00 AM EDT Office Visit Neurology - [facility] [address] [facility] [address] [place] [address] Martell Calderon MD 2[address] [facility] [address] [place] [address] TREMORS/ MEDICARE, FOR LIFE 03/28/2024 8:30 AM EDT Office Visit Primary Care - [address] [address] Cheo Santoyo, [address] [place] [address] AWV 04/06/2024 9:45 AM EST Lab [facility] - [facility] [address] [facility] [address] [place] [address] CBCMP,CEA,FEST 04/06/2024 10:15 AM EST Office Visit [facility] - [facility] [address] [facility] [address] [place] [address] Georgi Butterfield MD [address] [place] [address] 6 MTH FU W/LABS, REV SCAN 04/13/2024 9:30 AM EST Office Visit Surgical Oncology - [facility] [address] [facility] [address] [place] [address] Delvis Cheek MD 125 [facility] [address] [place] [address] 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 06/19/2024 10:30 AM EST Office Visit Orthopaedics- Les Valencia [address] [facility] [address] [place] [address] Karly Bautista, [place] [address] [place] [address] annual visit from date of surgery May/Jul [...] AM EDT Primary osteoarthritis of right hip NV ARTHRP ACETBLR/PROX FEM PROSTC AGRFT/ALGRFT 10/19/2023 7:15 AM EDT Primary osteoarthritis of right hip Special Needs javan/ rosa m POCT GLUCOSE Routine 10/19/2023 7:10 AM EDT SURGICAL PATHOLOGY Routine 10/19/2023 Primary osteoarthritis of right hip documented in this encounter Results * Hemoglobin and Hematocrit (10/20/2023 4:14 AM EDT) Pathologist [facility] Hemoglobin 13.7 13.0 - 17.3 g/dL [facility] Hematocrit 41.8 38.0 - 52.0 % [facility] Blood BLOOD SPECIMEN / Unknown 10/20/2023 4:14 AM EDT 10/20/2023 5:02 AM EDT Maurice DALLAS HEMATOLOGY ORDERABLE S [facility] [address] [place] [address] * (ABNORMAL) Basic Metabolic Panel (10/20/2023 4:14 AM EDT) [facility] Sodium 138 135 - 145 mmol/L [facility] Potassium 4.8 3.5 - 5.3 mmol/L [facility] Chloride 102 98 - 107 mmol/L [facility] CO2 26 22 - 29 mmol/L [facility] Glucose 157(H) 70 - 99 mg/dL [facility] BUN 17 8 - 23 mg/dL [facility] Creatinine 1.1 0.7 - 1.3 mg/dL [facility] Anion Gap 10 2 - 17 mmol/L [facility] Osmolaliy Calculated 280 270 - 287 mOsm/kg [facility] Calcium 9.0 8.5 - 10.7 mg/dL [...] Maurice DALLAS CHEMISTRY ORDERABLES Performing Organization Address City/Va Hospital/ZIP Co de Phone Number [address], [place] [address] * Culture, Tissue (10/19/2023 5:12 PM EDT) FINAL REPORT No aerobic or anaerobic organisms isolated [facility] Gram Stain Result No Polymorphonuclear WBC [facility] Gram Stain Result No Bacteria Seen [facility] Tissue 10/19/2023 5:12 PM EDT 10/19/2023 5:14 PM EDT Maurice Panchal MD MICROBIOLOGY - GENER AL ORDERABLES Performing Organization Address City/[facility] Hospital/[facility] Co de Phone Number [facility] [address] [place] [address] * (ABNORMAL) Culture, Tissue (10/19/2023 4:58 PM EDT) FINAL REPORT Propionibacterium species Most Closely Resembling Propionibacterium avidum(A) [facility] FINAL REPORT No aerobic organisms isolated.(A) [facility] Gram Stain Result No Polymorphonuclear WBC(A) [facility] Gram Stain Result No Bacteria Seen(A) [facility] Organism Propionibacterium species(A) [facility] Tissue 10/19/2023 4:58 PM EDT 10/19/2023 5:14 PM EDT Maurice Panchal MD MICROBIOLOGY - GENER AL ORDERABLES [facility] [address] [place] [address] * XR PELVIS (1-2 VIEWS) (10/19/2023 9:56 [...] EDT) FINAL REPORT No Acid-Fast bacilli Isolated [facility] ACID FAST No Acid Fast Bacilli Seen [facility] Tissue HIP JOINT SYNOVIAL FLUID / Unknown 10/19/2023 8:53 AM EDT Comment:Pre-op diagnosis: Primary osteoarthritis of right hip [M16.11] Narrative [facility] - 10/20/2023 1:01 PM EDT Pre-op diagnosis: Primary osteoarthritis of right hip [M16.11] Maurice Panchal MD MICROBIOLOGY - GENER AL ORDERABLES Performing Organization Address [facility] Co de Phone Number [facility] [address] [place] [address] * Culture, Fungus (10/19/2023 8:53 AM EDT) FINAL REPORT No fungi isolated after 28 days. [facility] JESUS result No Fungi Seen [facility] Tissue HIP JOINT SYNOVIAL FLUID / Unknown 10/19/2023 8:53 AM EDT Comment:Pre-op diagnosis: Primary osteoarthritis of right hip [M16.11] Narrative [facility] - 10/19/2023 10:39 PM EDT Pre-op diagnosis: Primary osteoarthritis of right hip [M16.11] Maurice Panchal MD MICROBIOLOGY - GENER AL ORDERABLES Performing Organization Address [facility] de Phone Number [facility] [address] [place] [phone] * Culture with Smear, Acid Fast Bacillius (10/19/2023 8:50 AM EDT) FINAL REPORT No Acid-Fast bacilli Isolated [facility] ACID FAST No Acid Fast Bacilli Seen [facility] Synov Fl JOINT SPECIMEN / Unknown 10/19/2023 8:50 AM EDT Comment:Pre-op diagnosis: Primary osteoarthritis of right hip [M16.11] Narrative [facility] - 10/20/2023 1:00 PM EDT Pre-op diagnosis: Primary osteoarthritis of right hip [M16.11] Maurice Panchal MD MICROBIOLOGY - GENER AL ORDERABLES Performing Organization Address [facility] Co de Phone Number [facility] [address] [place] [address] * Culture, Fungus (10/19/2023 8:50 AM EDT) FINAL REPORT No fungi isolated after 28 days. [facility] JESUS result No Fungi Seen [facility] Synov Fl JOINT SPECIMEN / Unknown 10/19/2023 8:50 AM EDT Comment:Pre-op diagnosis: Primary osteoarthritis of right hip [M16.11] Narrative [facility] - 10/19/2023 10:40 PM EDT Pre-op diagnosis: Primary osteoarthritis of right hip [M16.11] Maurice Panchal MD MICROBIOLOGY - GENER AL ORDERABLES Performing Organization Address [facility] Co de Phone Number [facility] [address] [place] [phone] * POCT Glucose (10/19/2023 7:10 AM EDT) POC Glucose 96.0 65.0 - 110.0 mg/dL [facility] Comment:MP - AMB PACU Blood 10/19/2023 7:10 AM EDT 10/19/2023 7:10 AM EDT Maurice Panchal MD POINT OF CARE TEST O RDERABLES Performing Organization Address [facility] Co de Phone Number [facility] [address] [place] [address] * Surgical Pathology (10/19/2023) Bone HIP JOINT SYNOVIAL FLUID / Unknown 10/19/2023 9:15 AM EDT Comment:Pre-op diagnosis: Primary osteoarthritis of right hip [M16.11] Maurice Panchal MD PATHOLOGY/CYTOLOGY O RDERABLES Performing Organization Address [facility] Co de Phone Number [facility] [address] [place] [address] documented in this encounter Visit Diagnoses Diagnosis [...] mL IVPB (mini-bag) (COMPLETED) 2,000 mg, IntraVENous, EARLY CHILDHOOD LEAD TEACHER TO O.R., 1 dose, On Wed10/19/23 at [...] at 400 mL/hr, Administer over 15 Minutes, EARLY CHILDHOOD LEAD TEACHER TO O.R., On Wed10/19/23 at 0645, For [...] Daryl Morales RN) 533 (Given - Provider: Drayl Morales, SUZANNE) Linked Groups Order Group 1: [...] documented as of this encounter Care Teams Lead Person Relationship Specialty Start Date End Date Cheo Santoyo DO [address] [place] [phone] PCP - General Family Medicine 07/06/23 documented as of this encounter
--- OUTSIDE RECORDS SUMMARY | 2024-01-13 03:15 | XMS_ITS | Encounter Summary ---
Author Organization Jose Alejandro [facility]iano [facility] Address [address] [facility] [place] [address] Care Team Providers Care Truss Designer Name Role Phone Cheo Santoyo DO Primary Care Provider [phone] Reason for Visit * Reason Onset Date Comments Medication Adjustment 09/06/2023 Encounter Details Date Type Department Care Team ([facility] st Contact Info) Description 09/06/2023 Telephone Primary Care - [address] [address] Cheo Santoyo DO [address] [place] [phone] Medication Adjustment Social History Tobacco Use [...] Office Visit Neurology - [facility] [address] [facility] [address] [place] [address] Martell Calderon MD [address] [facility] [address] [place] [address] TREMORS/ MEDICARE, FOR LIFE 03/28/2024 8:30 AM EDT Office Visit Primary Care - [address] [address] Cheo Santoyo DO [address] [place] [address] AWV 04/06/2024 9:45 AM EST Lab [facility] - [facility] [address] [facility] [address] [place] [address] CBCMP,CEA,FEST 04/06/2024 10:15 AM EST Office Visit [facility] - [facility] [address] [facility] [address] [place] [address] Georgi Butterfield MD [address] [place] [address] 6 MTH FU W/LABS, REV SCAN 04/13/2024 9:30 AM EST Office Visit Surgical Oncology - [facility] [address] [facility] [address] [place] [address] Delvis Cheek MD 125 [facility] [address] [place] [address] 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
--- OUTSIDE RECORDS SUMMARY | 2024-01-13 03:15 | XMS_ITS | Encounter Summary ---
Author Organization Jose Alejandro Pantoja [facility] Address [address] [place] [address] Care Team Providers Care Roofing Foreman Name Role Phone Cheo Santoyo Primary Care Provider [phone] Reason for Visit * Reason Onset Date Comments Medication Problem 10/21/2023 Encounter Details Date Type Department Care Team (Late st Contact Info) Description 10/21/2023 Telephone Orthopaedics - [address] Dr[address] [place] [address] Maurice Panchal MD [address] [place], [place] [phone] Medication Problem Social History Tobacco Use Types Packs/Day Years Used Date Smoking Tobacco: Former Cigarettes 1 27 0 05/31/1969 - 05/31/1996 Smokeless Tobacco: Never Alcohol Use Standard Drinks/Week Comments Yes 7 (1 standard drink = 0.6 oz pur e alcohol) [facility] Utilities Answer Date Recorded In the past 12 months has [employer], gas, oil, or water [employer] threatened to shut off services in your [...] place to sleep or slept in a care home (including now)? No 10/19/2023 Food Insecurity [...] [facility] [address] [facility] [address] [place] [address] Martell Calderon MD 2144 [facility] [place] [address] [place] [address] TREMORS/ MEDICARE, FOR LIFE 03/28/2024 8:30 AM EDT Office Visit Primary Care - [address] [address] Cheo Santoyo [address] [address] AWV 04/06/2024 9:45 AM EST Lab [facility] [facility] - [facility] [address] [facility] [address] [place] [address] CBCMP,CEA,FEST 04/06/2024 10:15 AM EST Office Visit [place] [facility] - [facility] [address] [facility] [address] [place] [address] Georgi Butterfield MD 3510 [facility] [address] [facility] [address] [place] [address] 6 MTH FU W/LABS, REV SCAN 04/13/2024 9:30 AM EST Office Visit Surgical Oncology - [facility] [address] [facility] [address] [place] [address] Delvis Cheek MD 125 [facility] [address] [place] [address] 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
--- OUTSIDE RECORDS SUMMARY | 2024-01-13 03:15 | XMS_ITS | Encounter Summary ---
Author Organization Jose Alejandro Pantoja [facility] Address [address] [place] [address] Care Team Providers Care Candy Separator Hard Name Role Phone Cheo Santoyo Primary Care Provider [phone] Reason for Visit * Reason Onset Date Comments Lab results 10/26/2023 Encounter Details Date Type Department Care Team (Late st Contact Info) Description 10/26/2023 Telephone Orthopaedics - [place] [id number] [phone] Maurice Panchal MD [address] [address] Lab results Social History Tobacco Use Types Packs/Day Years Used Date Smoking Tobacco: Former Cigarettes 1 27 0 05/31/1969 - 05/31/1996 Smokeless Tobacco: Never Alcohol Use Standard Drinks/Week Comments Yes 7 (1 standard drink = 0.6 oz pur e alcohol) [facility] Utilities Answer Date Recorded In the past 12 months has [employer], gas, oil, or water [employer] threatened to shut off services in your [...] [place] [address] [facility] [address] [place] [address] Martell Calderon MD 2[address] [facility] [address] [place] [address] TREMORS/ MEDICARE, FOR LIFE 03/28/2024 8:30 AM EDT Office Visit Primary Care - [address] [phone] [address]oyo [address] [address] AWV 04/06/2024 9:45 AM EST Lab [place] [facility] - [facility] [place] [address] [facility] [address] [place] [address] CBCMP,CEA,FEST 04/06/2024 10:15 AM EST Office Visit [place] [facility] - [facility] [place] [address] [facility] [address] [place] [address] Georgi Butterfield MD 3510 [facility] [address] [facility] 225 [place] [address] 6 MTH FU W/LABS, REV SCAN 04/13/2024 9:30 AM EST Office Visit Surgical Oncology - [facility], [place] [address] [facility] [address] [place] [address] Delvis Cheek MD 125 [facility] [address] [place] [address] 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
--- OUTSIDE RECORDS SUMMARY | 2024-01-13 03:15 | XMS_ITS | Encounter Summary ---
Author Organization Jose Alejandro Pantoja [facility] Address [address] [place] [address] Care Team Providers Care Rubber Mill Tender Name Role Phone Cheo Santoyo DO Primary Care Provider Reason for Visit * Reason Comments New Med Request Encounter Details Date Type Department Care Team (Late st Contact Info) Description 12/03/2023 Refill Primary Care - [address] [address] Cheo Santoyo DO [address] [place] [phone] New Med Request Social History Tobacco Use Types Packs/Day Years Used Date Smoking Tobacco: Former Cigarettes 1 27 0 05/31/1969 - 05/31/1996 Smokeless Tobacco: Never Alcohol Use Standard Drinks/Week Comments Yes 4 (1 standard drink = 0.6 oz pur e alcohol) [facility] Utilities Answer Date Recorded In the past 12 months has [employer], gas, oil, or water [employer] threatened to shut off services in your [...] 9:00 AM EDT Office Visit Neurology - [facility] [address] [facility] [address] [place] [address] Martell Calderon MD 2144 [facility] [address] [place] [address] TREMORS/ MEDICARE, FOR LIFE 03/28/2024 8:30 AM EDT Office Visit Primary Care - [address] [phone] Cheo Santoyo [address] [place] [address] AWV 04/06/2024 9:45 AM EST [facility] - [facility] 2084 [facility] [address] [place] [address] CBCMP,CEA,FEST 04/06/2024 10:15 AM EST Office Visit [facility] - [facility] 2084 [facility] [address] [place] [address] Georgi Butterfield MD 4330 [facility] [address] [place], [place] [phone] 6 MTH FU W/LABS, REV SCAN 04/13/2024 9:30 AM EST Office Visit Surgical Oncology - [facility] 2084 [facility] [address] [place] [address] Delvis Cheek MD 125 [facility] 660 [place] [address] 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 [place] [address] [place] [address] Karly Bautista, BURT 180 [facility] 301 [place] [phone] annual visit from date of surgery May/Jul 2024 for bilateral TKA and right LIZZ with Karly. documented as of this encounter Visit Diagnoses Not on filedocumented in this encounter Additional Health Concerns Assessment Noted Time A fall risk assessment has been complete d for the patient 07/06/2023 9:36 AM EST documented as of this encounter Care Teams Rubber Mill Tender Relationship Specialty Start Date End Date Cheo Santoyo DO [address] [place] [phone] PCP - General Family Medicine 07/06/23 documented as of this encounter
--- OUTSIDE RECORDS SUMMARY | 2024-01-13 03:15 | XMS_ITS | Encounter Summary ---
Author Organization Jose Alejandro Pantoja [facility] Address [address] [place] [address] Care Team Providers Care Conventions Reservationist Name Role Phone Cheo Santoyo Primary Care Provider [phone] Encounter Details Date Type Department Care Team (Late st Contact Info) Description 11/01/2023 Home Visit [facility] Maurice Panchal MD [address] [address] Social History Tobacco Use Types Packs/Day Years Used Date Smoking Tobacco: Former Cigarettes 1 27 0 05/31/1969 - 05/31/1996 Smokeless Tobacco: Never Alcohol Use Standard Drinks/Week Comments Yes 7 (1 standard drink = 0.6 oz pur e alcohol) [facility] Utilities Answer Date Recorded In the past 12 months has [employer], gas, oil, or water [employer] threatened to shut off services in your [...] Office Visit Neurology - Maryan Jacobsen Dr. [address] [place] [phone] Martell Calderon MD 2145 [facility] [address] [place] [address] TREMORS/ MEDICARE, FOR LIFE 03/28/2024 8:30 AM EDT Office Visit Primary Care - [address] [address] Cheo Santoyo, DO 1112 [place] [phone] AWV 04/06/2024 9:45 AM EST [facility] - [facility] 20[address] [facility] [address] [place] [phone] CBCMP,CEA,FEST 04/06/2024 10:15 AM EST Office Visit [facility] - [facility] 2084 [facility] [address] [place] [address] Georgi Butterfield MD [address] [place] [address] 6 MTH FU W/LABS, REV SCAN 04/13/2024 9:30 AM EST Office Visit Surgical Oncology - [facility] 2084 [facility] [address] [place] [address] Delvis Cheek MD 125 [facility] [address] [place] [address] 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 documented as of this encounter Visit Diagnoses Not on filedocumented in this encounter Additional Health Concerns Assessment Noted Time A fall risk assessment has been complete d for the patient 07/06/2023 9:36 AM EST documented as of this encounter Care Teams Conventions Reservationist Relationship Specialty Start Date End Date Cheo Santoyo DO [address] [place] [phone] PCP - General Family Medicine 07/06/23 documented as of this encounter
--- OUTSIDE RECORDS SUMMARY | 2024-01-13 03:15 | XMS_ITS | Encounter Summary ---
Author Organization Jose Alejandro Pantoja [facility] Address [address] [place] [address] Care Team Providers Care Supervisor Roving Department Name Role Phone Cheo Santoyo Moshe REYES Primary Care Provider [phone] Encounter Details Date Type Department Care Team (Late st Contact Info) Description 11/16/2023 11:05 AM EDT Ancillary Procedure Orthopaedics- Les Valencia [address] [address] Social History Tobacco Use Types Packs/Day Years Used Date Smoking Tobacco: Former Cigarettes 1 27 0 05/31/1969 - 05/31/1996 Smokeless Tobacco: Never Alcohol Use Standard Drinks/Week Comments Yes 4 (1 standard drink = 0.6 oz pur e alcohol) [facility] Utilities Answer Date Recorded In the past 12 months has [employer] electric, gas, oil, or water company threatened [...] place to sleep or slept in a retirement (including now)? No 10/19/2023 Food Insecurity Answer [...] Dr. [address] [place] [address] Martell Calderon MD 5 [facility] [address] [place] [address] TREMORS/ MEDICARE, FOR LIFE 03/28/2024 8:30 AM EDT Office Visit Primary Care - [facility] 1112 [place] [address] Cheo Santoyo DO 1112 [place] [address] AWV 04/06/2024 9:45 AM EST [facility] - [facility] 2084 [facility] [address] [place] [phone] CBCMP,CEA,FEST 04/06/2024 10:15 AM EST Office Visit [facility] - [facility] 2084 [facility] [place] [address] [place] [address] Georgi Butterfield MD [address] [place] [address] 6 MTH FU W/LABS, REV SCAN 04/13/2024 9:30 AM EST Office Visit Surgical Oncology - [facility] 2084 [facility] [place] [address] [place] [address] Delvis Cheek MD 125 [facility] 660 [place] [address] 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 ??X-rays revealed well-positioned [place] hip arthroplasty components without issues or concerns. [...] documented as of this encounter Care Teams Supervisor Roving Department Relationship Specialty Start Date End Date Cheo Santoyo DO [address] [place] [phone] PCP - General Family Medicine 07/06/23 documented as of this encounter
--- OUTSIDE RECORDS SUMMARY | 2024-01-13 03:15 | XMS_ITS | Encounter Summary ---
Author Organization Jose Alejandro Pantoja [facility] Address [address] [place] [address] Care Team Providers Care Assembler Skylights Name Role Phone Cheo Santoyo Moshe REYES Primary Care Provider [phone] Encounter Details Date Type Department Care Team (Latest Contact Info) Description 10/19/2023 Travel Social History Tobacco Use Types Packs/Day Years Used Date Smoking Tobacco: Former Cigarettes 1 27 0 05/31/1969 - 05/31/1996 Smokeless Tobacco: Never Alcohol Use Standard Drinks/Week Comments Yes 7 (1 standard drink = 0.6 oz pur e alcohol) [facility] Utilities Answer Date Recorded In the past 12 months has [employer], gas, oil, or water company threatened to [...] Neurology - Maryan Flores Dr. [address] [facility] [address] [place] [address] Martell Calderon MD 2144 [facility] [place] [address] [place] [address] TREMORS/ MEDICARE, FOR LIFE 03/28/2024 8:30 AM EDT Office Visit Primary Care - [facility] 1112 [place] [address] Cheo Santoyo DO 1112 [place] [phone] AWV 04/06/2024 9:45 AM EST [facility] - [facility] [place] 2084 [facility] [address] [place] [address] CBCMP,CEA,FEST 04/06/2024 10:15 AM EST Office Visit [facility] - [facility] [place] 20[address] [facility] [address] [place] [address] Georgi Butterfield MD 3510 [facility] [address] [place] [address] 6 MTH FU W/LABS, REV SCAN 04/13/2024 9:30 AM EST Office Visit Surgical Oncology - [facility] [place] 2084 [facility] [address] [place] [address] Delvis Cheek MD 125 [facility] 660 [place] [address] 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 documented as of this encounter Visit Diagnoses Not on filedocumented in this encounter Additional Health Concerns Assessment Noted Time A fall risk assessment has been complete d for the patient 07/06/2023 9:36 AM EST documented as of this encounter Care Teams Assembler Skylights Relationship Specialty Start Date End Date Cheo Santoyo DO [address] [place] [phone] PCP - General Family Medicine 07/06/23 documented as of this encounter
--- OUTSIDE RECORDS SUMMARY | 2024-01-13 03:16 | XMS_ITS | Encounter Summary ---
Author Organization Jose Alejandro [facility] Address [address] [place] [address] Care Team Providers Care Congregational Care Pastor Name Role Phone Yarelis Cheo Moshe REYES Primary Care Provider [phone] Reason for Visit * Auth/Cert (Routine) Specialty Diagnoses / Procedures Referred By Rachid t Referred To Contact Diagnoses Right hip pain Right hip pain [M25.551] Procedures IN ARTHROCENTESIS ASPIR&/INJ MAJOR JT/BURSA W/O US INTRA [place] [address] [place] [phone] [address] Referral ID Status Reason Start Date Expiration Date Visits Re quested Visits Authorized [id number] 1 1 Encounter Details Date Type Department Care Team (Late st Contact Info) Description 08/04/2023 10:30 AM EST - 08/04/2023 10:45 AM EST Surgery [facility] OR 2094 [place] [address] Martinez Guthrie MD [address] [address] INTRA ARTICULAR HIP BILATERAL NO [...] Everywhere. * Bursa Injection: Trochanteric: General Info (Marshallese) * RICE: General Info (Marshallese) documented in this encounter Medications at Time [...] Office Visit Neurology - Maryan Jacobsen Dr. [address] [place] [address] Martell Calderon MD 2145 [facility] [address] [place] [address] TREMORS/ MEDICARE, FOR LIFE 03/28/2024 8:30 AM EDT Office Visit Primary Care - [facility] [address] [place] [address] Cheo Santoyo, DO 1112 [place] [address] AWV 04/06/2024 9:45 AM EST Lab [place] - [facility] 2084 [facility] [address] [place] [address] CBCMP,CEA,FEST 04/06/2024 10:15 AM EST Office Visit [facility] - [facility] 2084 [facility] [address] [place] [address] Georgi Butterfield MD 3510 [facility] [address] [place] [address] 6 MTH FU W/LABS, REV SCAN 04/13/2024 9:30 AM EST Office Visit Surgical Oncology - [facility] 2084 [facility] [address] [place] [address] Delvis Cheek MD 125 [facility] [address] [place] [address] 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 documented as of this encounter Procedures Procedure Name Priority Date/Time Associated Diagnosis Comments IN ARTHROCENTESIS ASPIR&/INJ MAJOR JT/BURSA W/O US 08/04/2023 [...] documented as of this encounter Care Teams Congregational Care Pastor Relationship Specialty Start Date End Date Cheo Santoyo DO [address] [place] [phone] PCP - General Family Medicine 07/06/23 documented as of this encounter
--- OUTSIDE RECORDS SUMMARY | 2024-01-13 03:16 | XMS_ITS | Encounter Summary ---
Author Organization Jose Alejandro liriano [facility] Address [address] [place] [address] Care Team Providers Care Rear Load Truck Driver Name Role Phone Cheo Santoyo DO Primary Care Provider [phone] Reason for Visit * Reason Comments Surgical Clearance Right hip surgery, p t would like to discussTizanidine and Celebrex Encounter Details Date Type Department Care Team (Latest Contact Info) Description 09/02/2023 11:00 AM EDT Office Visit Primary Care - [address] [phone] Cheo Santoyo DO [address] [place] [address] Osteoarthritis of right hip, unspecified osteoarthritis [...] preperation for a mens hike with his shinto.He noticed he gets catching every while traiing. [...] bundle branch block (LBBB) no longer sees motivational speaker, states stress and testing was completed and motivational speaker signed off PONV (postoperative nausea and vomiting) Post-operative nausea and vomiting AND STATES BODY TEMP DROPPED TO 94 DEGREES F Sleep apnea MILD AND DOES NOT USE CPAP Spinal stenosis Type 2 diabetes mellitus without complication ([facility]) Past Surgical History: Procedure Laterality Date BACK SURGERY 02/05/1986 laminectomy, discectomy CERVICAL DISCECTOMY 04/18/2007 , cervical fusion 2012 COLONOSCOPY MULTIPLE HAND CARPECTOMY Left 2021 HAND SURGERY Right 2001 debby luanr repair HEMICOLECTOMY 2020 HIP SURGERY Right 06/18/2022 INTRA ARTICULAR HIP RIGHT HIP performed by Martinez Guthrie MD at [facility] HIP SURGERY Bilateral 08/04/2023 INTRA ARTICULAR HIP BILATERAL NO PA REQ performed by Martinez Guthrie MD at [facility] JOINT REPLACEMENT Right 2011 shoulder KIDNEY STONE SURGERY 2009 basket removal KNEE ARTHROSCOPY Left 10/13/2021 multiple knee scopes right and left 1997 thru 2021 SHOULDER SURGERY Right 2010 2011 right hemiarthroplasty SUBTOTAL COLECTOMY 2020 R. Hemicolectomy TOTAL KNEE ARTHROPLASTY Left 12/21/2022 LEFT TOTAL KNEE ARTHROPLASTY, ROBOTIC performed by Maurice Panchal MD at [facility] MAIN OR TOTAL KNEE ARTHROPLASTY Right 03/17/2023 RIGHT TOTAL KNEE ARTHROPLASTY, ROBOTIC performed by Maurice Panchal MD at [facility] MAIN OR UPPER GASTROINTESTINAL ENDOSCOPY 2019 Social [...] time, no major scientific/medical organization including the [place] [employer] and the [place] [employer] Association have specific recommendations in regard [...] neuropathy, without long-term current use of insulin ([facility]) Benign essential HTN Cervicalgia 1. Osteoarthritis of [...] neuropathy, without long-term current use of insulin ([facility]) Assessment & Plan: Last hemoglobin A1c well-controlled [...] Visit Neurology - [facility] 2[address] [facility] [address] [place] [address] Martell Calderon MD 2144 [facility] [address] [place], [place] [address] TREMORS/ MEDICARE, FOR LIFE 03/28/2024 8:30 AM EDT Office Visit Primary Care - [address] [phone] Cheo Santoyo DO [address] [place] [phone] AWV 04/06/2024 9:45 AM EST Lab [facility] - [facility] 2084 [facility] [address] [place] [address] CBCMP,CEA,FEST 04/06/2024 10:15 AM EST Office Visit [facility] - [facility] 2084 [facility] [address] [place] [address] Georgi Butterfield MD [address] [place] [address] 6 MTH FU W/LABS, REV SCAN 04/13/2024 9:30 AM EST Office Visit Surgical Oncology - [facility] 2084 [facility] [address] [place] [address] Delvis Cheek MD 125 [facility] 660 [place] [address] 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
--- OUTSIDE RECORDS SUMMARY | 2024-01-13 03:16 | XMS_ITS | Encounter Summary ---
Author Organization Jose Alejandro Pantoja [facility] Address [address] [place] [address] Care Team Providers Care Automobile Body Repairer Name Role Phone Cheo Santoyo Primary Care Provider [phone] Encounter Details Date Type Department Care Team (Late st Contact Info) Description 04/06/2023 [facility] Maurice Panchal MD [address] [address] Social History Tobacco Use Types Packs/Day Years [...] AM EDT Office Visit Neurology - [facility] 2144 [facility] [address] [place] [address] Martell Calderon MD 2144 [facility] [address] [place] [address] TREMORS/ MEDICARE, FOR LIFE 03/28/2024 8:30 AM EDT Office Visit Primary Care - [address] [address] Cheo Santoyo [address] [address] AWV 04/06/2024 9:45 AM EST Lab [facility] - [facility] 2084 [facility] [address] [place] [address] CBCMP,CEA,FEST 04/06/2024 10:15 AM EST Office Visit [facility] - [facility] 2084 [facility] [address] [place] [address] Georgi Butterfield MD 3510 [facility] [address] [place] [address] 6 MTH FU W/LABS, REV SCAN 04/13/2024 9:30 AM EST Office Visit Surgical Oncology - [facility] 2084 [facility] [address] [place] [address] Delvis Cheek MD 125 [facility] 660 [place] [phone] 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 documented as of this encounter Visit Diagnoses Not on filedocumented in this encounter Additional Health Concerns Assessment Noted Time A fall risk assessment has been complete d for the patient 02/26/2023 9:45 AM EDT documented as of this encounter Care Teams Automobile Body Repairer Relationship Specialty Start Date End Date Cheo Santoyo DO [address] [place] [phone] PCP - General Family Medicine 07/06/23 documented as of this encounter
--- OUTSIDE RECORDS SUMMARY | 2024-01-13 03:16 | XMS_ITS | Encounter Summary ---
Author Organization Jose Alejandro Pantoja [facility]sol [facility] Address [address] [place] [address] Care Team Providers Care Professor Of Fine Art Name Role Phone Felicitas Monaco MD Primary Care Provider [phone] Encounter Details Date Type Department Care Team (Late st Contact Info) Description 04/16/2023 2:05 PM EST Ancillary Procedure Orthopaedics - Maryan Jacobsne Dr. [address] [place] [address] Social History Tobacco Use Types Packs/Day Years [...] Visit Neurology - [facility] 2144 [facility] [address] [place] [address] Martell Calderon MD 214 [facility] [address] [place] [address] TREMORS/ MEDICARE, FOR LIFE 03/28/2024 8:30 AM EDT Office Visit Primary Care - [address] [address] Cheo Santoyo DO 1112 [place] [phone] AWV 04/06/2024 9:45 AM EST [facility] - [facility] 2084 [facility] [address] [place] [address] CBCMP,CEA,FEST 04/06/2024 10:15 AM EST Office Visit [facility] - [facility] 2084 [facility] [address] [place] [address] Georgi Butterfield MD [address] [place] [address] 6 MTH FU W/LABS, REV SCAN 04/13/2024 9:30 AM EST Office Visit Surgical Oncology - [facility] 2084 [facility] [address] [place] [address] Delvis Cheek MD [address] 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 06/19/2024 10:30 AM EST Office Visit Orthopaedics- Les Valencia 615 [facility] [address] [place] [address] Karly Bautista, BURT [address] [place] [address] annual visit from date of [...] without any issues or concerns Marquise Moses INDUSTRIAL TRUCK MECHANIC - RN WOUND IMG DIAGNOST IC IMAGING ORDERABLES documented in this encounter Visit Diagnoses Not on filedocumented in this encounter Additional Health Concerns Assessment Noted Time A fall risk assessment has been complete d for the patient 02/26/2023 9:45 AM EDT documented as of this encounter Care Teams Professor Of Fine Art Relationship Specialty Start Date End Date Felicitas Monaco MD PCP - General Family Medicine 06/18/22 07/05/23 documented as of this encounter
--- OUTSIDE RECORDS SUMMARY | 2024-01-13 03:16 | XMS_ITS | Encounter Summary ---
Author Organization Jose Alejandro Kit [facility] Address [address] [place] [address] Care Team Providers Care Camp Counselor Name Role Phone Yarelis Cheo Moshe REYES Primary Care Provider [phone] Reason for Visit * Auth/Cert (Routine) Specialty Diagnoses / Procedures Referred By Rachid t Referred To Contact Diagnoses Right hip pain Right hip pain [M25.551] Procedures DE ARTHROCENTESIS ASPIR&/INJ MAJOR JT/BURSA W/O US [place]TRA [place] [address] [place] [phone] [address] Referral ID Status Reason Start Date Expiration Date Visits Re quested Visits Authorized [id number] 1 1 Encounter Details Date Type Department Care Team (Late st Contact Info) Description 08/04/2023 9:28 AM EST - 08/04/2023 10:37 AM EST Hospital Encounter RSF PAIN MGMT OR [address] [place] [address] Martinez Guthrie MD [address] [place] [address] Discharge Disposition: Home or Self Care [...] Everywhere. * Bursa Injection: Trochanteric: General Info (Pakistani) * RICE: General Info (Pakistani) documented in this encounter Medications at Time [...] Office Visit Neurology - Maryan Jacobsen [address] [place] [address] Martell Calderon MD 2149 [facility] [address] [place] [address] TREMORS/ MEDICARE, FOR LIFE 03/28/2024 8:30 AM EDT Office Visit Primary Care - [address] [place] [address] Cheo Santoyo, [address] [place] [address] AWV 04/06/2024 9:45 AM EST Lab [facility] - [facility] 20[address] [facility] [address] [place] [address] CBCMP,CEA,FEST 04/06/2024 10:15 AM EST Office Visit [facility] - [facility] 2084 [facility] [address] [place] [address] Georgi Butterfield MD [address] [place] [address] 6 MTH FU W/LABS, REV SCAN 04/13/2024 9:30 AM EST Office Visit Surgical Oncology - [facility] 2084 [facility] [address] [place] [address] Delvis Cheek MD 125 [facility] [address] [place] [address] 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 [address] [place] [phone] Karly Bautista, BURT [address] [place] [address] annual visit from date of surgery May/Jul 2024 for bilateral TKA and right LIZZ with Karly. documented as of this encounter Procedures Procedure Name Priority Date/Time Associated Diagnosis Comments DE ARTHROCENTESIS ASPIR&/INJ MAJOR JT/BURSA W/O US 08/04/2023 [...] documented as of this encounter Care Teams Camp Counselor Relationship Specialty Start Date End Date Cheo Santoyo DO [address] [place] [phone] PCP - General Family Medicine 07/06/23 documented as of this encounter
--- OUTSIDE RECORDS SUMMARY | 2024-01-13 03:16 | XMS_ITS | Encounter Summary ---
Author Organization Jose Alejandro [facility] Address [address] [place] [address] Care Team Providers Care Order Processing Specialist Name Role Phone Cheo Santoyo Moshe REYES Primary Care Provider [phone] Reason for Visit * Reason Comments Hip Pain RIGHT Encounter Details Date Type Department Care Team (Latest Contact Info) Description 08/20/2023 3:00 PM EDT Office Visit Orthopaedics - [address] [phone] Bonny Mcarthur [address] [address] Primary osteoarthritis of right hip (Primary Dx); [...] complaints. He states his symptoms have persisted [id number]. He is also having intermittent severe catching. [...] Neurology - [facility] 2144 [facility] [address] [place] [phone] Martell Calderon MD 2145 [facility] [address] [place] [address] TREMORS/ MEDICARE, FOR LIFE 03/28/2024 8:30 AM EDT Office Visit Primary Care - [address] [phone] Cheo Santoyo DO [address] [place] [phone] AWV 04/06/2024 9:45 AM EST Lab [facility] - [facility] 2084 [facility] [address] [place] [address] CBCMP,CEA,FEST 04/06/2024 10:15 AM EST Office Visit [facility] - [facility] 20[address] [facility] [address] [place] [address] Georgi Butterfield MD [address] [place] [address] 6 MTH FU W/LABS, REV SCAN 04/13/2024 9:30 AM EST Office Visit Surgical Oncology - [facility] 2084 [facility] [address] [place] [address] Delvis Cheek MD 125 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
--- OUTSIDE RECORDS SUMMARY | 2024-01-13 03:16 | XMS_ITS | Encounter Summary ---
Author Organization Jose Alejandro [facility]ja [facility] Address [address] [place] [address] Care Team Providers Care Field Kiln Burner Name Role Phone Cheo Santoyo DO Primary Care Provider [phone] Encounter Details Date Type Department Care Team ([facility] st Contact Info) Description 07/21/2023 Abstract Primary Care - [address] [address] Cheo Santoyo DO [address] [place] [phone] Social History Tobacco Use Types Packs/Day [...] Upcoming Encounters Date Type Department Care Team ([facility] st Contact Info) Description 03/24/2024 9:00 AM EDT Office Visit Neurology - [facility] [address] [facility] [address] [place] [address] Martell Calderon MD 2144 [facility] [address] [place] [address] TREMORS/ MEDICARE, FOR LIFE 03/28/2024 8:30 AM EDT Office Visit Primary Care - [address] [address] Cheo Santoyo [address] [address] AWV 04/06/2024 9:45 AM EST Lab [facility] - [facility] 20[address] [facility] [address] [place] [address] CBCMP,CEA,FEST 04/06/2024 10:15 AM EST Office Visit [facility] - [facility] [address] [facility] [address] [place] [address] Georgi Butterfield MD 3510 [facility] [address] [place], [place] [phone] 6 MTH FU W/LABS, REV SCAN 04/13/2024 9:30 AM EST Office Visit Surgical Oncology - [facility] [address] [facility] [address] [place] [address] Delvis Cheek MD 125 [facility] 660 [place] [address] 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 documented as of this encounter Visit Diagnoses Not on filedocumented in this encounter Additional Health Concerns Assessment Noted Time A fall risk assessment has been complete d for the patient 07/06/2023 9:36 AM EST documented as of this encounter Care Teams Field Kiln Burner Relationship Specialty Start Date End Date Cheo Santoyo DO [address] [place] [phone] PCP - General Family Medicine 07/06/23 documented as of this encounter
--- OUTSIDE RECORDS SUMMARY | 2024-01-13 03:16 | XMS_ITS | Encounter Summary ---
Author Organization Jose Alejandro liriano [facility] Address [address] [place] [address] Care Team Providers Care Goodyear Stitcher Name Role Phone Cheo Santoyo DO Primary Care Provider [phone] Encounter Details Date Type Department Care Team ([facility] st Contact Info) Description 07/06/2023 Orders Only Primary Care - [address] [phone] hCeo Santoyo DO [address] [place] [phone] Screening PSA (prostate specific antigen); Type [...] [place] 2[address] [facility] [address] [place] [address] Martell Calderon MD 2144 [facility] [address] [place] [address] TREMORS/ MEDICARE, FOR LIFE 03/28/2024 8:30 AM EDT Office Visit Primary Care - [address] [phone] Cheo Santoyo DO [address] [place] [phone] AWV 04/06/2024 9:45 AM EST Lab [facility] - [facility], [place] 2084 [facility] [address] [place] [address] CBCMP,CEA,FEST 04/06/2024 10:15 AM EST Office Visit [facility] - [facility], [place] 2084 [facility] [address] [place] [address] Georgi Butterfield MD [address] [place] [address] 6 MTH FU W/LABS, REV SCAN 04/13/2024 9:30 AM EST Office Visit Surgical Oncology - [facility], [place] 2084 [facility] [address] [place] [address] Delvis Cheek MD 125 [facility] 660 [place] [address] 1 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 Avg. Glucose, WB 148 [facility] Est. Avg. Glucose-calculated 165 [facility] Blood BLOOD SPECIMEN / Unknown 07/06/2023 11:08 AM EST 07/06/2023 3:58 PM EST Cheo Santoyo DO CHEMISTRY ORDERABLES Performing Organization Address [facility]/State/[facility] Co de Phone Number [facility] [address] [facility] [place] [address] * (ABNORMAL) Comprehensive Metabolic Panel (07/06/2023 11:08 [...] Santoyo DO CHEMISTRY ORDERABLES Performing Organization Address City/State/[facility] Co de Phone Number [facility] [address] [facility] [place] [address] * PSA Screening (07/06/2023 11:08 AM EST) PSA, Screening 1.420 0.000 - 4.000 ng/mL [facility] Comment: PSA INTERPRETATION: PSA measured by Ja Harry electrochemiluminescence immunoassay ECLIA methodology. At this time, no major scientific/medical organization including the [place] [employer] and the [place] [employer] have specific recommendations in regard [...] Santoyo DO CHEMISTRY ORDERABLES Performing Organization Address City/State/[facility] Co de Phone Number [facility] [address] [facility] [place] [address] documented in this encounter Visit Diagnoses Diagnosis [...] documented as of this encounter Care Teams Goodyear Stitcher Relationship Specialty Start Date End Date Cheo Santoyo DO [address] [place] [phone] PCP - General Family Medicine 07/06/23 documented as of this encounter
--- OUTSIDE RECORDS SUMMARY | 2024-01-13 03:16 | XMS_ITS | Encounter Summary ---
Author Organization Jose Alejandro Pantoja [facility] Address [address] [place] [address] Care Team Providers Care Returned Materials Inspector Name Role Phone Cheo Santoyo DO Primary Care Provider [phone] Encounter Details Date Type Department Care Team ([facility] st Contact Info) Description 07/21/2023 Abstract Primary Care - [address] [phone] Cheo Santoyo DO [address] [place] [phone] Social History Tobacco Use Types Packs/Day [...] Upcoming Encounters Date Type Department Care Team ([facility] st Contact Info) Description 03/24/2024 9:00 AM EDT Office Visit Neurology - [facility] [address] [facility] [address] [place] [address] Martell Calderon MD 2144 [facility] [address] [place] [address] TREMORS/ MEDICARE, FOR LIFE 03/28/2024 8:30 AM EDT Office Visit Primary Care - [address] [phone] Cheo Santoyo [address] [address] AWV 04/06/2024 9:45 AM EST Lab [facility] - [facility] 2084 [facility] [address] [place] [address] CBCMP,CEA,FEST 04/06/2024 10:15 AM EST Office Visit [facility] - [facility] 2084 [facility] [address] [place] [address] Georgi Butterfield MD 3510 [facility] [address] [place], [place] [phone] 6 MTH FU W/LABS, REV SCAN 04/13/2024 9:30 AM EST Office Visit Surgical Oncology - [facility] 2084 [facility] [address] [place] [address] Delvis Cheek MD 125 [facility] 660 [place] [address] 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 documented as of this encounter Visit Diagnoses Not on filedocumented in this encounter Additional Health Concerns Assessment Noted Time A fall risk assessment has been complete d for the patient 07/06/2023 9:36 AM EST documented as of this encounter Care Teams Returned Materials Inspector Relationship Specialty Start Date End Date Cheo Santoyo DO [address] [place] [phone] PCP - General Family Medicine 07/06/23 documented as of this encounter
--- OUTSIDE RECORDS SUMMARY | 2024-01-13 03:16 | XMS_ITS | Encounter Summary ---
Author Organization Jose Alejandro [facility] Address [address] [place] [address] Care Team Providers Care Grain Loader Name Role Phone Cheo Santoyo Primary Care Provider [phone] Encounter Details Date Type Department Care Team (Late st Contact Info) Description 06/28/2023 Abstract [facility] Hematology & Oncology - [facility]. [address] [facility] [address] [place] [address] Georgi Butterfield MD [address] [place] [address] Social History Tobacco Use Types [...] Visit Neurology - [facility] 2[address] [facility] [address] [place] [address] Martell Calderon MD 2144 [facility] [address] [place] [address] TREMORS/ MEDICARE, FOR LIFE 03/28/2024 8:30 AM EDT Office Visit Primary Care - [address] [address] Cheo Santoyo DO [address] [place] [phone] AWV 04/06/2024 9:45 AM EST Lab [facility] - [facility] 2084 [facility] [address] [place] [address] CBCMP,CEA,FEST 04/06/2024 10:15 AM EST Office Visit [facility] - [facility] 2084 [facility] [address] [place] [address] Georgi Butterfield MD [address] [place] [address] 6 MTH FU W/LABS, REV SCAN 04/13/2024 9:30 AM EST Office Visit Surgical Oncology - [facility] 2084 [facility] [address] [place] [address] Delvis Cheek MD 125 [facility] [address] [place] [address] 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 100 [place] [phone] Karly Bautista, BURT 180 [facility] 301 [place] [address] annual visit from date of surgery May/Jul 2024 for bilateral TKA and right LIZZ with Karly. documented as of this encounter Visit Diagnoses Not on filedocumented in this encounter Additional Health Concerns Assessment Noted Time A fall risk assessment has been complete d for the patient 02/26/2023 9:45 AM EDT documented as of this encounter Care Teams Grain Loader Relationship Specialty Start Date End Date Cheo Santoyo DO [address] [place] [phone] PCP - General Family Medicine 07/06/23 documented as of this encounter
--- OUTSIDE RECORDS SUMMARY | 2024-01-13 03:16 | XMS_ITS | Encounter Summary ---
Author Organization Jose Alejandro Kit [facility] Address [address] [place] [address] Care Team Providers Care Reports Developer Name Role Phone Ceho Santoyo DO Primary Care Provider Reason for Referral * Eval and Treat (Routine) - Closed Specialty Diagnoses / Procedures Referred By Rachid jimenez Referred To Contact Neurology Diagnoses Essential tremor Cheo Santoyo DO [address] [place] [phone] Martell Calderon MD [address] [address] Referral ID Status Reason Start Date Expiration Date V isits Requested Visits Authorized [id number] Closed Specialty Services Required 08/20/2023 08/19/2024 1 1 Scheduling Instructions [facility] Neurology Comments The patient can be scheduled with any member of the group, including the provider with the first available appointments. Reason for Visit * Reason Onset Date Comments OTHER 08/20/2023 Referral Neurolo gy Encounter Details Date Type Department Care Team ([facility] Contact Info) Description 08/20/2023 Telephone Primary Care - [address] [phone] Cheo Santoyo DO [address] [place] [phone] OTHER (Referral Neurology) Social History Tobacco [...] Office Visit Neurology - Maryan Jacobsen Dr. [address] [place] [address] Martell Calderon MD 7 [facility] [address] [place] [address] TREMORS/ MEDICARE, FOR LIFE 03/28/2024 8:30 AM EDT Office Visit Primary Care - [address] [phone] Cheo Santoyo, DO [address] [place] [phone] AWV 04/06/2024 9:45 AM EST Lab [place] [facility] - [facility] 2084 [facility] [address] [place] [address] CBCMP,CEA,FEST 04/06/2024 10:15 AM EST Office Visit [place] [facility] - [facility] 2084 [facility] [address] [place] [address] Georgi Butterfield MD [address] [place], [place] [phone] 6 MTH FU W/LABS, REV SCAN 04/13/2024 9:30 AM EST Office Visit Surgical Oncology - [facility] 2084 [facility] [address] [place] [address] Delvis Cheek MD 125 [facility] 660 [place] [address] 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 [address] [place] [phone] Karly Bautista PA 180 [facility] [address] [place] [address] annual visit from date of surgery May/Jul 2024 for bilateral TKA and right LIZZ with Karly. Scheduled Referrals Name Type Priority Associated Diagnoses Order Schedule [facility]SFPP - Martell Calderon MD, Neurology - [facility] Outpatient Referral Routine Essential tremor Ordered: 08/20/2023 documented as of this encounter Visit Diagnoses Diagnosis Essential tremor- Primary Essential and other specified forms of tremor documented in this encounter Additional Health Concerns Assessment Noted Time A fall risk assessment has been complete d for the patient 07/06/2023 9:36 AM EST documented as of this encounter Care Teams Reports Developer Relationship Specialty Start Date End Date Cheo Santoyo DO [address] [place] [phone] PCP - General Family Medicine 07/06/23 documented as of this encounter
--- OUTSIDE RECORDS SUMMARY | 2024-01-13 03:16 | XMS_ITS | Encounter Summary ---
Author Organization Jose Alejandro Kit [facility] Address [address] [place] [address] Care Team Providers Care Banquet Houseperson Name Role Phone Felicitas Monaco MD Primary Care Provider [phone] Reason for Referral * Eval and Treat (Routine) - Open Specialty Diagnoses / Procedures Referred By Rachid jimenez Referred To Contact Family Medicine / Primary Care Diagnoses Iron deficiency anemia, unspecified iron deficiency anemia type Carcinoma of ascending colon (HCC) Georgi Butterfield MD [address] [place] [address] Cheo Santoyo DO [address] [place] [address] Referral ID Status Reason Start Date Expiration Date V isits Requested Visits Authorized [id number] Open Specialty Services Required 04/08/2023 04/07/2024 1 1 Scheduling Instructions Cheo Santoyo DO, Primary Care - [address] [address] Question Answer My clinical question is: essablish care Comments The patient can be scheduled with any member of the group, including the provider with the first available appointments. Reason for Visit * Reason Comments Follow-up Encounter Details Date Type Department Care Team ([facility] Contact Info) Description 04/08/2023 9:30 AM EST Office Visit [facility] Hematology & Oncology - [facility] [address] [place] [address] Georgi Butterfield MD [address] [facility] [address] [place] [address] Iron deficiency anemia, unspecified iron [...] from the original note were not included. [facility] HEMATOLOGY & ONCOLOGY MD Rosalino Ponce MD Ryan A. Kalinsky, MD Mark T. Burbridge, DO Jenny Riley, MD Margaret Brady, MD Caitlin Mengler, [facility]- Marcela Jackman, ROOF CEMENT AND PAINT MAKER-ONLINE MERCHANDISING SPECIALIST Gisselle Padilla, TIGIST [email or web address] Hematology/Medical Oncology Patient Name: Martínez [...] bundle branch block (LBBB) no longer sees mail courier, states stress and testing was completed and mail courier signed off PONV (postoperative nausea and vomiting) [...] ROBOTIC performed by Maurice Panchal MD at [facility] MAIN OR TOTAL KNEE ARTHROPLASTY Right 03/17/2023 RIGHT TOTAL KNEE ARTHROPLASTY, ROBOTIC performed by Maurice Panchal MD at [facility] MAIN OR UPPER GASTROINTESTINAL ENDOSCOPY 2019 [...] Dr. [address] [place] [address] Martell Calderon MD [address] [facility] [address] [place] [address] TREMORS/ MEDICARE, FOR LIFE 03/28/2024 8:30 AM EDT Office Visit Primary Care - [address] [address] Cheo Santoyo DO [address] [place] [address] AWV 04/06/2024 9:45 AM EST Lab [place] [facility] - [facility] [address] [facility] [address] [place] [address] CBCMP,CEA,FEST 04/06/2024 10:15 AM EST Office [place] [facility] - [facility] [address] [facility] [address] [place] [address] Georgi Butterfield MD [address] [facility] [address] [place] [address] 6 MTH FU W/LABS, REV SCAN 04/13/2024 9:30 AM EST Office Visit Surgical Oncology - [facility] [address] [facility] [address] [place] [address] Delvis Cheek MD 125 [facility] 660 [place] [address] 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 Scheduled Referrals Name Type Priority Associated Diagnoses Orde r Schedule [facility] - Cheo Santoyo DO, Primary Care - [facility] Outpatient Referral Routine Iron deficiency anemia, [...] EST) Folate 13.39 4.80 - 24.20 ng/mL [facility] Comment: Test Performed at: [facility] [address] [place] [address] Blood BLOOD SPECIMEN / Unknown 04/08/2023 8:58 AM EST 04/08/2023 2:11 PM EST Georgi Butterfield MD CHEMISTRY ORDERABLE S Performing Organization Address [facility] de Phone Number [facility] [address] [place] [address] * Vitamin B12 (04/08/2023 8:58 AM EST) Pathologist [facility] Vitamin B-12 547 232 - 1245 pg/mL [facility] Comment: Effective 05/05/17 Vitamin B12 Methodology Change - Vitamin B12 Reference Range has been revised. Test Performed at: [facility] [address] [place] [address] [place] [address] Blood BLOOD SPECIMEN / Unknown 04/08/2023 8:58 AM EST 04/08/2023 2:11 PM EST Georgi Butterfield MD CHEMISTRY ORDERABLE S Performing Organization Address [facility] de Phone Number [facility] [address] [place] [address] * Soluble transferrin receptor (04/08/2023 8:58 AM EST) [facility] Soluble Transferrin Recept 20.7 12.2 - 27.3 nmol/L [facility] Comment: Performed At: [facility] [id number] Ajit Swift MD Ph:[phone] Test Performed at: [facility] [address] [place] [address] [place] [address] Blood BLOOD SPECIMEN / Unknown 04/08/2023 8:58 AM EST 04/08/2023 2:11 PM EST Georgi Butterfield MD HEMATOLOGY ORDERABL ES Performing Organization Address [facility] de Phone Number [facility] [address] [place] [address] * Reticulocytes (04/08/2023 8:58 AM EST) [facility] RBC 5.10 4.00 - 5.60 x10e6/mcL [facility] Retic Ct Pct 1.8 0.5 - 2.0 % [facility] Retic Ct Abs 0.0933 0.0235 - 0.1220 /mcL [facility] Comment: Test Performed at: [facility] [address] [address] Blood BLOOD SPECIMEN / Unknown 04/08/2023 8:58 AM EST 04/08/2023 2:11 PM EST Georgi Butterfield MD HEMATOLOGY ORDERABL ES Performing Organization Address [facility] de Phone Number [facility] [address] [place] [address] * Iron and TIBC (04/08/2023 8:58 AM EST) Iron 80 59 - 158 mcg/dL [facility] UIBC 221.8 112.0 - 347.0 mcg/dL [facility] TIBC 302 250 - 450 mcg/dL [facility] Iron % Saturation 26 20 - 40 % [facility] Comment: Test Performed at: [facility] [address] [facility] [address] Serum BLOOD SPECIMEN / Unknown 04/08/2023 8:58 AM EST 04/08/2023 2:11 PM EST Georgi Butterfield MD CHEMISTRY ORDERABLE S Performing Organization Address City/[facility] de Phone Number [facility] [address] [place] [address] * Ferritin (04/08/2023 8:58 AM EST) Ferritin 291.1 30.0 - 400.0 ng/mL [facility] Comment: Test Performed at: [facility] [address] [facility] [address] Blood BLOOD SPECIMEN / Unknown 04/08/2023 8:58 AM EST 04/08/2023 2:11 PM EST Georgi Butterfield MD CHEMISTRY ORDERABLE S [facility] [address] [place] [address] * (ABNORMAL) CBC with Auto Differential (04/08/2023 [...] Testing Location: [address], [address], [facility] [address], Georgi Butterfield MD HEMATOLOGY ORDERABL ES [facility] HEMATOLOGY & ONCOLOGY [address] [facility] [address] [place] [address] * (ABNORMAL) Comprehensive Metabolic Panel (04/08/2023 8:58 AM EST) Sodium 140 135 - 145 mmol/L [facility] Potassium 4.9 3.5 - 5.3 mmol/L [facility] Chloride 104 98 - 107 mmol/L [facility] CO2 25 22 - 29 mmol/L [facility] Glucose 176(H) 70 - 99 mg/dL [facility] BUN 17 8 - 23 mg/dL [facility] Creatinine 1.1 0.7 - 1.3 mg/dL [facility] Anion Gap 11 2 - 17 mmol/L [facility] Osmolaliy Calculated 285 270 - 287 mOsm/kg [facility] Calcium 10.1 8.8 - 10.2 mg/dL [facility] Total Protein 7.0 6.4 - 8.3 g/dL [facility] Albumin 4.6 3.5 - 5.2 g/dL [facility] Globulin 2.5 1.9 - 4.4 g/dL [facility] Albumin/Globulin Ratio 1.86 1.00 - 2.70 [facility] Total Bilirubin 0.41 0.00 - 1.20 mg/dL [facility] Alk Phosphatase 114 40 - 130 unit/L [facility] AST 23 0 - 50 unit/L [facility] ALT 28 0 - 50 unit/L [facility] Est, Glom Filt Rate 74 >=60 mL/min/1.7 3m? [facility] Comment: VERIFIED by Discern Expert. GFR [...] estimating GFR in adults. Test Performed at: [facility] [address] [facility] [place] [address] Blood BLOOD SPECIMEN / Unknown 04/08/2023 8:58 AM EST 04/08/2023 2:11 PM EST Georgi Butterfield MD CHEMISTRY ORDERABLE S [facility] [address] [facility] [place] [address] * CEA (Serial Monitor) (04/08/2023 8:58 AM EST) Pathologist [facility] CEA (SERIAL MONITOR) 2.1 0.0 - 4.7 ng/mL [facility] Comment: ? Nonsmokers ?<3.9 ? Smokers ? <5.6 [facility] Electrochemiluminescence Immunoassay (ECLIA) Values obtained with different assay methods or kits cannot be used interchangeably. ??Results cannot be interpreted as absolute evidence of the presence or absence of malignant disease. Performed At: [facility] [id number] Ajit Swift MD Ph:[phone] Test Performed at: [facility] [address] [facility] [place] [address] Blood BLOOD SPECIMEN / Unknown 04/08/2023 8:58 AM EST 04/08/2023 2:11 PM EST Georgi Butterfield MD CHEMISTRY ORDERABLE S Performing Organization Address City/State/[facility] Co de Phone Number RSF [facility] [address] [place] [address] documented in this encounter Visit Diagnoses Diagnosis Iron deficiency anemia, unspecified iron deficiency anemia type Carcinoma of ascending colon (HCC) Malignant neoplasm of ascending colon documented in this encounter Additional Health Concerns Assessment Noted Time A fall risk assessment has been complete d for the patient 02/26/2023 9:45 AM EDT documented as of this encounter Care Teams Banquet Houseperson Relationship Specialty Start Date End Date Felicitas Monaco MD PCP - General Family Medicine 06/18/22 07/05/23 documented as of this encounter
--- OUTSIDE RECORDS SUMMARY | 2024-01-13 03:16 | XMS_ITS | Encounter Summary ---
Author Organization Jose Alejandro [facility]olinnea [facility] Address [address] [place] [address] Care Team Providers Care Caster Helper Name Role Phone Cheo Santoyo Primary Care Provider [phone] Reason for Referral * Surgical (Routine) - Closed Specialty Diagnoses / Procedures Referred By Contosman jimenez Referred To Contact Orthopedic Surgery Diagnoses Primary osteoarthritis of right hip Procedures MI ARTHRP ACETBLR/PROX FEM PROSTC AGRFT/ALGRFT Maurice Panchal MD [address] [address] Maurice Panchal MD [facility] [address] [address] Referral ID Status Reason Start Date Expiration Date V isits Requested Visits Authorized [id number] Closed Insurance 08/26/2023 08/25/2024 1 1 Scheduling Instructions LIZZ [id number] M16.9 DATE [facility] Maruice Panchal MD, Orthopaedics [facility] [address] [address] Comments The patient can be scheduled with any member of the group, including the provider with the first available appointments. Encounter Details Date Type Department Care Team (Late st Contact Info) Description 08/26/2023 Orders Only Orthopaedics - [address] - [address] [place] [address] Maurice Panchal MD [address] [facility] 105 [place] [address] Primary osteoarthritis of right hip (Primary Dx); [...] Dr. [address] [place] [address] Martell Calderon MD [address] [facility] [address] [place] [address] TREMORS/ MEDICARE, FOR LIFE 03/28/2024 8:30 AM EDT Office Visit Primary Care - [facility] [address] [place] [phone] Cheo Santoyo, [address] [place] [address] AWV 04/06/2024 9:45 AM EST [place] Hematology & Oncology - [facility] [address] [facility] [address] [place] [address] CBCMP,CEA,FEST 04/06/2024 10:15 AM EST Office Visit [place] [facility] - [facility] [address] [facility] [address] [place] [address] Georgi Butterfield MD [address] [place] [address] 6 MTH FU W/LABS, REV SCAN 04/13/2024 9:30 AM EST Office Visit Surgical Oncology - [facility] [address] [facility] [address] [place] [address] Delvis Cheek MD 125 [facility] 660 [place] [address] 1 YEAR F/U ADENOCARCINOMA OF THE CECUM 06/19/2024 10:30 AM EST Office Visit Orthopaedics- Les Valencia [address] [facility] [address] [place] [phone] Karly Bautista PA [address] [place] [address] annual visit from date of [...] documented as of this encounter Care Teams Caster Helper Relationship Specialty Start Date End Date Cheo Santoyo DO [address] [place] [address] PCP - General Family Medicine 07/06/23 documented as of this encounter
--- OUTSIDE RECORDS SUMMARY | 2024-01-13 03:16 | XMS_ITS | Encounter Summary ---
Author Organization Jose Alejandro Pantoja [facility] Address [address] [place] [address] Care Team Providers Care Barge Captain Name Role Phone Cheo Santoyo Primary Care Provider [phone] Encounter Details Date Type Department Care Team (Late st Contact Info) Description 06/22/[address] [facility] Hematology & Oncology - [facility]. [address] [facility] [address] [place] [address] Georgi Butterfield MD [address] [place] [address] Social History Tobacco Use Types [...] 9:00 AM EDT Office Visit Neurology - [facility] [address] [facility] [address] [place] [address] Martell Calderon MD 2[address] [facility] [address] [place] [address] TREMORS/ MEDICARE, FOR LIFE 03/28/2024 8:30 AM EDT Office Visit Primary Care - [address] [address] Cheo Santoyo DO [address] [place] [address] AWV 04/06/2024 9:45 AM EST Lab [place] [facility] - [facility] [address] [facility] [address] [place] [address] CBCMP,CEA,FEST 04/06/2024 10:15 AM EST Office Visit [place] [facility] - [facility] [address] [facility] [address] [place] [address] Georgi Butterfield MD [address] [place] [address] 6 MTH FU W/LABS, REV SCAN 04/13/2024 9:30 AM EST Office Visit Surgical Oncology - [facility] [address] [facility] [address] [place] [address] Delvis Cheek MD 125 [facility] [address] [place] [address] 1 YEAR F/U ADENOCARCINOMA OF THE CECUM 06/19/2024 10:30 AM EST Office Visit Orthopaedics- Les Valencia 615 [facility] 100 [place] [address] Karly Bautista, BURT [address] [facility] 301 [place] [address] annual visit from date of surgery May/Jul 2024 for bilateral TKA and right LIZZ with Karly. documented as of this encounter Visit Diagnoses Not on filedocumented in this encounter Additional Health Concerns Assessment Noted Time A fall risk assessment has been complete d for the patient 02/26/2023 9:45 AM EDT documented as of this encounter Care Teams Barge Captain Relationship Specialty Start Date End Date Cheo Santoyo DO [address] [place] [phone] PCP - General Family Medicine 07/06/23 documented as of this encounter
--- OUTSIDE RECORDS SUMMARY | 2024-01-13 03:16 | XMS_ITS | Encounter Summary ---
Author Organization Jose Alejandro Kit [facility] Address [address] [place] [address] Care Team Providers Care Compo Caster Name Role Phone Felicitas Monaco MD Primary Care Provider [phone] Reason for Referral * Eval and Treat (Routine) - Closed Specialty Diagnoses / Procedures Referred By Rachid jimenez Referred To Contact Physical Therapy Diagnoses History of right knee joint replacement Maurice Panchal MD [facility] [address] [address] PT/OT, [facility]-AT PT IN/[facility] 5401 [facility] [address] Referral ID Status Reason Start Date Expiration Date V isits Requested Visits Authorized [id number] Closed Specialty Services Required 04/06/2023 10/03/2023 1 1 Scheduling Instructions [facility] 5401 [facility] [id number] Question Answer Reason For External Referral? Clinically Integrated Network (FANG) Comments Physical Therapy / Total Joint Protocol 1-3 x's week 1 month Encounter Details Date Type Department Care Team (Late st Contact Info) Description 04/06/2023 Orders Only Orthopaedics - [place] [address] [phone] Maurice Panchal MD [address] [address] History of right knee joint replacement (Primary [...] Dr. [address] [place] [address] Martell Calderon MD [address] [facility] [address] [place] [address] TREMORS/ MEDICARE, FOR LIFE 03/28/2024 8:30 AM EDT Office Visit Primary Care - [address] [address] Cheo Santoyo DO [facility]2 [place] [address] AWV 04/06/2024 9:45 AM EST Lab [place] [facility] - [facility] [address] [facility] [address] [place] [address] CBCMP,CEA,FEST 04/06/2024 10:15 AM EST Office Visit [place] [facility] - [facility] [address] [facility] [address] [place] [address] Georgi Butterfield MD [address] [place] [address] 6 MTH FU W/LABS, REV SCAN 04/13/2024 9:30 AM EST Office Visit Surgical Oncology - [facility] [address] [facility] [address] [place] [address] Delvis Cheek MD 125 [facility] 660 [place] [address] 1 YEAR F/U ADENOCARCINOMA OF THE CECUM 06/19/2024 10:30 AM EST Office Visit Orthopaedics- Les Valencia [address] [facility] [address] [place] [address] Karly Bautista PA [address] [place] [address] annual visit from date of surgery May/Jul 2024 for bilateral TKA and right LIZZ with Karly. Scheduled Referrals Name Type Priority Associated Diagnoses Orde r Schedule [facility] - [facility] Physical Therapy - [facility] Outpatient Referral Routine History of right knee joint replacement Ordered: 04/06/2023 documented as of this encounter Visit Diagnoses Diagnosis History of right knee joint replacement- Primary documented in this encounter Additional Health Concerns Assessment Noted Time A fall risk assessment has been complete d for the patient 02/26/2023 9:45 AM EDT documented as of this encounter Care Teams Compo Caster Relationship Specialty Start Date End Date Felicitas Monaco MD PCP - General Family Medicine 06/18/22 07/05/23 documented as of this encounter
--- OUTSIDE RECORDS SUMMARY | 2024-01-13 03:16 | XMS_ITS | Encounter Summary ---
Author Organization Jose Alejandro Pantoja [facility] Address [address] [place] [address] Care Team Providers Care Internal Combustion Engine Subassembler Name Role Phone Felicitas Monaco MD Primary Care Provider [phone] Reason for Visit * Reason Comments Follow-up Encounter Details Date Type Department Care Team (Latest Contact Info) Description 04/15/2023 9:45 AM EST Office Visit Surgical Oncology - [facility] [address] [facility] [address] [place] [address] Delvis Cheek MD [address] [place] [phone] Adenocarcinoma of cecum (HCC) (Primary Dx); [...] last week. 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 Sagastume as well. Patient is asymptomatic [...] Neurology - [address] Dr[address] [facility] [place] [address] Martell Calderon MD 2145 [facility] [address] [place], [place] [address] TREMORS/ MEDICARE, FOR LIFE 03/28/2024 8:30 AM EDT Office Visit Primary Care - [address] [phone] Cheo Santoyo DO [address] [place] [address] AWV 04/06/2024 9:45 AM EST Lab [place] [facility] [address] [facility] [address] [place] [address] CBCMP,CEA,FEST 04/06/2024 10:15 AM EST Office Visit [place] [facility] - [facility] [address] [facility] [address] [place] [address] Georgi Butterfield MD [address] [place] [address] 6 MTH FU W/LABS, REV SCAN 04/13/2024 9:30 AM EST Office Visit Surgical Oncology - [facility] [address] [facility] [address] [place] [address] Delvis Cheek MD 125 [facility] [address] [place] [address] 1 YEAR F/U ADENOCARCINOMA OF THE CECUM 06/19/2024 10:30 AM EST Office Visit Orthopaedics- Les Valencia 615 [facility] [address] [place] [address] Karly Bautista PA [address] [place] [address] annual visit from date of [...] documented as of this encounter Care Teams Internal Combustion Engine Subassembler Relationship Specialty Start Date End Date Felicitas Monaco MD PCP - General Family Medicine 06/18/22 07/05/23 documented as of this encounter
--- OUTSIDE RECORDS SUMMARY | 2024-01-13 03:16 | XMS_ITS | Encounter Summary ---
Author Organization Jose Alejandro Pantoja [facility] Address [address] [place] [address] Care Team Providers Care Well Drill Operator Cable Tool Name Role Phone Cheo Santoyo DO Primary Care Provider [phone] Encounter Details Date Type Department Care Team ([facility] st Contact Info) Description 08/04/2023 Abstract Primary Care - [address] [address] Cheo Santoyo DO [address] [place] [phone] Social History Tobacco Use Types Packs/Day [...] Visit Neurology - [facility] [address] [facility] [address] [place] [address] Martell Calderon MD 214 [facility] [place] [address] [place] [address] TREMORS/ MEDICARE, FOR LIFE 03/28/2024 8:30 AM EDT Office Visit Primary Care - [address] [address] [place] [address] [place] [phone] AWV 04/06/2024 9:45 AM EST Lab [place] [facility] [address] [facility] [address] [place] [address] CBCMP,CEA,FEST 04/06/2024 10:15 AM EST Office Visit [place] [address] [facility] [address] [place] [address] Georgi Butetrfield MD [address] [place] [address] 6 MTH FU W/LABS, REV SCAN 04/13/2024 9:30 AM EST Office Visit Surgical Oncology - [facility] [address] [facility] [address] [place] [address] Delvis Cheek MD 125 [facility] [address] [place] [address] 1 YEAR F/U ADENOCARCINOMA OF THE CECUM 06/19/2024 10:30 AM EST Office Visit Orthopaedics- Les Valencia 615 [facility] [address] [place] [address] Karly Bautista, BURT 180 [facility] [address] [place] [phone] annual visit from date of surgery May/Jul 2024 for bilateral TKA and right LIZZ with Karly. documented as of this encounter Visit Diagnoses Not on filedocumented in this encounter Additional Health Concerns Assessment Noted Time A fall risk assessment has been complete d for the patient 07/06/2023 9:36 AM EST documented as of this encounter Care Teams Well Drill Operator Cable Tool Relationship Specialty Start Date End Date Cheo Santoyo DO [address] [place] [phone] PCP - General Family Medicine 07/06/23 documented as of this encounter
--- OUTSIDE RECORDS SUMMARY | 2024-01-13 03:16 | XMS_ITS | Encounter Summary ---
Author Organization Jose Alejandro Pantoja [facility] Address [address] [place] [address] Care Team Providers Care Supervisor Instant Potato Processing Name Role Phone Felicitas Monaco MD Primary Care Provider [phone] Reason for Visit * Reason Comments Post-Op Check R TKA Encounter Details Date Type Department Care Team (Late st Contact Info) Description 04/16/2023 1:45 PM EST Office Visit Orthopaedics - [address] [place] [address] Marquise Moses, CONSTRUCTION CONTRACTOR - [employer]UR[employer] Presence of artificial knee joint, right (Primary [...] this encounter Progress Notes * Marquise Moses, CONSTRUCTION CONTRACTOR - [employer] - 04/16/2023 1:46 PM EST Images from the original note were not included. Date: 04/16/2023 Patient Name: Martínez Toribio : 1955 Primary Care Provider: Felicitas Monaco MD Reason for Visit: Post-Op Check (R [...] - [facility] [address] [facility] [address] [place] [address] Martell Calderon MD 214 [facility] [address] [place] [address] TREMORS/ MEDICARE, FOR LIFE 03/28/2024 8:30 AM EDT Office Visit Primary Care - [address] [address] Cheo Santoyo DO [address] [place] [phone] AWV 04/06/2024 9:45 AM EST Lab [place] [facility] - [facility] 20[address] [facility] [address] [place] [address] CBCMP,CEA,FEST 04/06/2024 10:15 AM EST [facility] [address] [facility] [address] [place] [address] Georgi Butterfield MD [address] [place] [address] 6 MTH FU W/LABS, REV SCAN 04/13/2024 9:30 AM EST Office Visit Surgical Oncology - [facility] [address] [facility] [address] [place] [address] Delvis Cheek MD 125 [facility] [address] [place] [address] 1 YEAR F/U ADENOCARCINOMA OF THE CECUM 06/19/2024 10:30 AM EST Office Visit Orthopaedics- Les Valencia 615 [facility] [address] [place] [address] Karly Bautista PA [address] [place] [address] annual visit from date of [...] without any issues or concerns Marquise Moses CONSTRUCTION CONTRACTOR - [employer] IMG DIAGNOST IC IMAGING ORDERABLES documented in this encounter Visit Diagnoses Diagnosis Presence of artificial knee joint, right- Primary documented in this encounter Additional Health Concerns Assessment Noted Time A fall risk assessment has been complete d for the patient 02/26/2023 9:45 AM EDT documented as of this encounter Care Teams Supervisor Instant Potato Processing Relationship Specialty Start Date End Date Felicitas Monaco MD PCP - General Family Medicine 06/18/22 07/05/23 documented as of this encounter
--- OUTSIDE RECORDS SUMMARY | 2024-01-13 03:16 | XMS_ITS | Encounter Summary ---
Author Organization Jose Alejandro liriano [facility] Address [address] [place] [address] Care Team Providers Care Defense Travel Administrator Name Role Phone Cheo Santoyo Moshe REYES Primary Care Provider Encounter Details Date Type Department Care Team (Late st Contact Info) Description 08/20/2023 2:40 PM EDT Ancillary Procedure Orthopaedics - [address] [place] [address] Social History Tobacco Use Types [...] Office Visit Neurology - [facility] [address] [facility] [address] [place] [address] Martell Calderon MD 2144 [facility] [address] [place] [address] TREMORS/ MEDICARE, FOR LIFE 03/28/2024 8:30 AM EDT Office Visit Primary Care - [address] [phone] Cheo Santoyo, [address] [address] AWV 04/06/2024 9:45 AM EST Lab [facility] - [facility] 20[address] [facility] [address] [place] [address] CBCMP,CEA,FEST 04/06/2024 10:15 AM EST Office Visit [place] [facility] - [facility] 20[address] [facility] [address] [place] [address] Georgi Butterfield MD [address] [place] [address] 6 MTH FU W/LABS, REV SCAN 04/13/2024 9:30 AM EST Office Visit Surgical Oncology - [facility] [address] [facility] [address] [place] [address] Delvis Cheek MD [address] [facility] [address] [place] [address] 1 YEAR F/U ADENOCARCINOMA OF THE CECUM 06/19/2024 10:30 AM EST Office Visit Orthopaedics- Les Valencia 615 [facility] [address] [place] [address] Karly Bautista PA 180 [facility] [address] [place] [address] annual visit from date of [...] documented as of this encounter Care Teams Defense Travel Administrator Relationship Specialty Start Date End Date Cheo Santoyo DO [address] [place] [phone] PCP - General Family Medicine 07/06/23 documented as of this encounter
--- OUTSIDE RECORDS SUMMARY | 2024-01-13 03:16 | XMS_ITS | Encounter Summary ---
Author Organization Jose Alejandro Pantoja [facility] Address [address] [place] [address] Care Team Providers Care Die Turner Name Role Phone Felicitas Monaco MD Primary Care Provider [phone] Reason for Visit * Reason Comments Follow-up R TKA; 6 WK F/U Encounter Details Date Type Department Care Team (Late st Contact Info) Description 06/04/2023 3:00 PM EST Office Visit Orthopaedics - [address] Dr[address] [place] [address] Bridgett Zuniga, DIRECTOR COLLEGE - SALESPERSON TERRAZZO TILES Presence of artificial knee joint, right (Primary [...] this encounter Progress Notes * Bridgett Zuniga, DIRECTOR COLLEGE - SALESPERSON TERRAZZO TILES - 06/04/2023 2:48 PM EST Images from [...] use as needed. 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 Patient will monitor [...] Dr. [address] [place] [address] Martell Calderon MD 214 [facility] [address] [place] [address] TREMORS/ MEDICARE, FOR LIFE 03/28/2024 8:30 AM EDT Office Visit Primary Care - [address] [address] Cheo Santoyo DO [address] [place] [phone] AWV 04/06/2024 9:45 AM EST Lab [facility] - [address] [facility] [address] [place] [address] CBCMP,CEA,FEST 04/06/2024 10:15 AM EST Office Visit [place] [facility] - [facility] 20[address] [facility] [address] [place] [address] Georgi Butterfield MD [address] [place], [place] [phone] 6 MTH FU W/LABS, REV SCAN 04/13/2024 9:30 AM EST Office Visit Surgical Oncology - [facility] 20[address] [facility] [address] [place] [address] Delvis Cheek MD [address] [place] [phone] 1 YEAR F/U ADENOCARCINOMA OF THE CECUM 06/19/2024 10:30 AM EST Office Visit Orthopaedics- Les Valencia 615 [facility] [address] [place] [address] Karly Bautista PA [address] [place] [address] annual visit from date of surgery May/Jul 2024 for bilateral TKA and right LIZZ with Karly. documented as of this encounter Visit Diagnoses Diagnosis Presence of artificial knee joint, right- Primary documented in this encounter Additional Health Concerns Assessment Noted Time A fall risk assessment has been complete d for the patient 02/26/2023 9:45 AM EDT documented as of this encounter Care Teams Die Turner Relationship Specialty Start Date End Date Felicitas Monaco MD PCP - General Family Medicine 06/18/22 07/05/23 documented as of this encounter
--- OUTSIDE RECORDS SUMMARY | 2024-01-13 03:16 | XMS_ITS | Encounter Summary ---
Author Organization Jose Alejandro Pantoja [facility] Address [address] [place] [address] Care Team Providers Care Material Hauler Name Role Phone Cheo Santoyo Moshe REYES Primary Care Provider [phone] Encounter Details Date Type Department Care Team (Late st Contact Info) Description 08/24/2023 Orders Only Orthopaedics - [place] [id number] [phone] Maurice Panchal MD [address] [address] Social History Tobacco Use Types Packs/Day Years [...] Neurology - [facility] [address] [facility] [address] [place] [address] Martell Calderon MD 2144 [facility] [address] [place] [address] TREMORS/ MEDICARE, FOR LIFE 03/28/2024 8:30 AM EDT Office Visit Primary Care - [address] [address] [place] [address] [place] [phone] AWV 04/06/2024 9:45 AM EST Lab [place] [facility] - [facility] [address] [facility] [address] [place] [address] CBCMP,CEA,FEST 04/06/2024 10:15 AM EST Office Visit [place] [facility] - [facility] [address] [facility] [address] [place] [address] Georgi Butterfield MD 3510 [facility] [place] [address] 6 MTH FU W/LABS, REV SCAN 04/13/2024 9:30 AM EST Office Visit Surgical Oncology - [facility] [address] [facility] [address] [place] [address] Delvis Cheek MD [address] [facility] [address] [place] [address] 1 YEAR F/U ADENOCARCINOMA OF THE CECUM 06/19/2024 10:30 AM EST Office Visit Orthopaedics- Les Valencia 615 [facility] [address] [place] [address] Karly Bautista, PA [address] [place] [address] annual visit from date of surgery May/Jul 2024 for bilateral TKA and right LIZZ with Karly. documented as of this encounter Visit Diagnoses Not on filedocumented in this encounter Additional Health Concerns Assessment Noted Time A fall risk assessment has been complete d for the patient 07/06/2023 9:36 AM EST documented as of this encounter Care Teams Material Hauler Relationship Specialty Start Date End Date Cheo Santoyo DO [address] [place] [phone] PCP - General Family Medicine 07/06/23 documented as of this encounter
--- OUTSIDE RECORDS SUMMARY | 2024-01-13 03:16 | XMS_ITS | Encounter Summary ---
Author Organization Jose Alejandro Pantoja [facility] Address [address] [place] [address] Care Team Providers Care Charge Account Identification Clerk Name Role Phone Cheo Santoyo Moshe REYES Primary Care Provider [phone] Encounter Details Date Type Department Care Team (Late st Contact Info) Description 08/17/2023 Orders Only Orthopaedics - [address] [phone] Bonny Mcarthur [facility] [address] [address] Right hip pain (Primary Dx) Social History [...] Neurology - [facility] [address] [facility] [address] [place] [address] Martell Calderon MD 214 [facility] [place] [address] [place] [address] TREMORS/ MEDICARE, FOR LIFE 03/28/2024 8:30 AM EDT Office Visit Primary Care - [address] [phone] Cheo Santoyo, [address] [place] [address] AWV 04/06/2024 9:45 AM EST Lab [place] [facility] - [facility] [address] [facility] [address] [place] [address] CBCMP,CEA,FEST 04/06/2024 10:15 AM EST Office Visit [place] [facility] - [facility] [address] [facility] [address] [place] [address] Georgi Butterfield MD 3510 [facility] [address] [place] [phone] 6 MTH FU W/LABS, REV SCAN 04/13/2024 9:30 AM EST Office Visit Surgical Oncology - [facility] [address] [facility] [address] [address] [place] [address] Delvis Cheek MD 125 [facility] 660 [place] [address] 1 YEAR F/U ADENOCARCINOMA OF THE CECUM 06/19/2024 10:30 AM EST Office Visit Orthopaedics- Les Valencia 615 [facility] [address] [place] [phone] Karly Bautista PA [address] [place] [address] annual visit from date of surgery May/Jul [...] documented as of this encounter Care Teams Charge Account Identification Clerk Relationship Specialty Start Date End Date Cheo Santoyo DO [address] [place] [phone] PCP - General Family Medicine 07/06/23 documented as of this encounter
--- OUTSIDE RECORDS SUMMARY | 2024-01-13 03:16 | XMS_ITS | Encounter Summary ---
Author Organization Jose Alejandro Raymundolinnea [facility] liriano [facility] Address [address] [place] [address] Care Team Providers Care Program Management Analyst Name Role Phone Felicitas Monaco MD Primary Care Provider [phone] Reason for Visit * Reason Onset Date Comments Medication Refill 05/26/2023 Encounter Details Date Type Department Care Team (Late st Contact Info) Description 05/26/2023 Refill Primary Care - [address] [facility] [address] [place] [address] Ninfa Hernandez APRN - SPA SUPERVISOR [address] [facility] [address] [place] [address] Medication Refill Social History Tobacco [...] - [facility] [address] [facility] [address] [place] [address] Martell Calderon MD 2144 [facility] [address] [place], [place] [address] TREMORS/ MEDICARE, FOR LIFE 03/28/2024 8:30 AM EDT Office Visit Primary Care - [address] [phone] Cheo Santoyo, DO [address] [place] [phone] AWV 04/06/2024 9:45 AM EST Lab [place] [facility] - [facility] 2084 [facility] [address] [place] [address] CBCMP,CEA,FEST 04/06/2024 10:15 AM EST Office Visit [place] [facility] - [facility] 2084 [facility] [address] [place] [address] Georgi Butterfield MD [address] [place], [place] [address] 6 MTH FU W/LABS, REV SCAN 04/13/2024 9:30 AM EST Office [facility] 2084 [facility] [address] [place] [address] Delvis Cheek MD 125 [facility] [address] [place] [address] 1 YEAR F/U ADENOCARCINOMA OF THE CECUM 06/19/2024 10:30 AM EST Office Visit Orthopaedics- Les Valencia 615 [facility] [address] [place] [address] Karly Bautista, PA 180 [facility] [address] [place] [address] annual visit from date of surgery May/Jul 2024 for bilateral TKA and right LIZZ with Karly. documented as of this encounter Visit Diagnoses Not on filedocumented in this encounter Additional Health Concerns Assessment Noted Time A fall risk assessment has been complete d for the patient 02/26/2023 9:45 AM EDT documented as of this encounter Care Teams Program Management Analyst Relationship Specialty Start Date End Date Felicitas Monaco MD PCP - General Family Medicine 06/18/22 07/05/23 documented as of this encounter
--- OUTSIDE RECORDS SUMMARY | 2024-01-13 03:16 | XMS_ITS | Encounter Summary ---
Author Organization Jose Alejandro Pantoja [facility] Address [address] [place] [address] Care Team Providers Care Administrative Asst Name Role Phone Felicitas Monaco MD Primary Care Provider [phone] Encounter Details Date Type Department Care Team (Late st Contact Info) Description 04/07/2023 Orders Only [facility] - [facility] [address] [facility] [place], [facility] [address] [place] [address] Georgi Butterfield MD [address] [place] [address] Iron deficiency anemia, unspecified iron [...] 9:00 AM EDT Office Visit Neurology - [facility] [address] [facility] [place], [facility] [address] [place] [address] Martell Calderon MD 2144 [facility] [address] [place], [place] [id number] TREMORS/ MEDICARE, FOR LIFE 03/28/2024 8:30 AM EDT Office Visit Primary Care - [address] [address] [place] [address] [place] [address] AWV 04/06/2024 9:45 AM EST Lab [facility] - [facility] [address] [facility] [address] [place] [address] CBCMP,CEA,FEST 04/06/2024 10:15 AM EST Office Visit [facility] - [facility] [address] [facility] [address] [place] [address] Georgi Butterfield MD [address] [place] [address] 6 MTH FU W/LABS, REV SCAN 04/13/2024 9:30 AM EST Office Visit Surgical Oncology - [facility] [address] [facility] [address] [place] [phone] Delvis Cheek MD 125 [facility] 660 [place] [address] 1 YEAR F/U ADENOCARCINOMA OF THE [facility] 06/19/2024 10:30 AM EST Office Visit Orthopaedics- Les Valencia [address] [facility] [address] [place] [phone] Karly Bautista, PA [address] [place] [address] annual visit from date of surgery May/Jul 2024 for bilateral TKA and right LIZZ with Karly. documented as of this encounter Results * CEA (Serial Monitor) (04/08/2023 8:58 AM EST) CEA (SERIAL MONITOR) 2.1 0.0 - 4.7 ng/mL [facility] Comment: ? Nonsmokers ?<3.9 ? Smokers ? <5.6 Ja [facility] Electrochemiluminescence Immunoassay (ECLIA) Values obtained with different assay methods or kits cannot be used interchangeably. ??Results cannot be interpreted as absolute evidence of the presence or absence of malignant disease. Performed At: [facility] [address] [place], [place] [id number] Ajit Swift MD Ph:[phone] Test Performed at: [facility] [address] [facility] [place] [address] Blood BLOOD SPECIMEN / Unknown 04/08/2023 8:58 AM EST 04/08/2023 2:11 PM EST Georgi Butterfield MD CHEMISTRY ORDERABLE S [facility] [address] [place] [address] * (ABNORMAL) Comprehensive Metabolic Panel (04/08/2023 8:58 AM EST) Sodium 140 135 - 145 mmol/L [facility] Potassium 4.9 3.5 - 5.3 mmol/L [facility] Chloride 104 98 - 107 mmol/L [facility] CO2 25 22 - 29 mmol/L [facility] Glucose 176(H) 70 - 99 mg/dL [facility] BUN 17 8 - 23 mg/dL [facility] Creatinine 1.1 0.7 - 1.3 mg/dL [facility] Anion Gap 11 2 - 17 mmol/L [facility] Osmolaliy Calculated 285 270 - 287 mOsm/kg [facility] Calcium 10.1 8.8 - 10.2 mg/dL [facility] Total Protein 7.0 6.4 - 8.3 g/dL [facility] Albumin 4.6 3.5 - 5.2 g/dL [facility] Globulin 2.5 1.9 - 4.4 g/dL [facility] Albumin/Globulin Ratio 1.86 1.00 - 2.70 [facility] Total Bilirubin 0.41 0.00 - 1.20 mg/dL [facility] Alk Phosphatase 114 40 - 130 unit/L [facility] AST 23 0 - 50 unit/L [facility] ALT 28 0 - 50 unit/L [facility] [...] estimating GFR in adults. Test Performed at: [facility] [address] [facility] [place] [address] Blood BLOOD SPECIMEN / Unknown 04/08/2023 8:58 AM EST 04/08/2023 2:11 PM EST Georgi Butterfield MD CHEMISTRY ORDERABLE S [facility] [address] [facility] [place] [address] * (ABNORMAL) CBC with Auto Differential (04/08/2023 [...] Testing Location: [address], [address], [facility] [address], Georgi Butterfield MD HEMATOLOGY ORDERABL ES [facility] ONCOL[facility]Y CC [address] [facility] [address] [place] [address], [facility] * Ferritin (04/08/2023 8:58 AM EST) Ferritin 291.1 30.0 - 400.0 ng/mL [facility] Comment: Test Performed at: [facility] [address] [place] [address] Blood BLOOD SPECIMEN / Unknown 04/08/2023 8:58 AM EST 04/08/2023 2:11 PM EST Georgi Butterfield MD CHEMISTRY ORDERABLE S Performing Organization Address [facility] Co de Phone Number [facility] [address] [place] [address] * Iron and TIBC (04/08/2023 8:58 AM EST) Iron 80 59 - 158 mcg/dL [facility] UIBC 221.8 112.0 - 347.0 mcg/dL [facility] TIBC 302 250 - 450 mcg/dL [facility] Iron % Saturation 26 20 - 40 % [facility] Comment: Test Performed at: [facility] [address] [place] [address] [place] [address] Serum BLOOD SPECIMEN / Unknown 04/08/2023 8:58 AM EST 04/08/2023 2:11 PM EST Georgi Butterfield MD CHEMISTRY ORDERABLE S Performing Organization Address [facility] de Phone Number [facility] [address] [place] [address] * Reticulocytes (04/08/2023 8:58 AM EST) RBC 5.10 4.00 - 5.60 x10e6/mcL [facility] Retic Ct Pct 1.8 0.5 - 2.0 % [facility] Retic Ct Abs 0.0933 0.0235 - 0.1220 /mcL [facility] Comment: Test Performed at: [facility] [address] [place] [address] [place] [address] Blood BLOOD SPECIMEN / Unknown 04/08/2023 8:58 AM EST 04/08/2023 2:11 PM EST Georgi Butterfield MD HEMATOLOGY ORDERABL ES Performing Organization Address [facility] de Phone Number [facility] [address] [place] [address] * Soluble transferrin receptor (04/08/2023 8:58 AM EST) Pathologist [facility] Soluble Transferrin Recept 20.7 12.2 - 27.3 nmol/L [facility] Comment: Performed At: [facility] [id number] Ajit Swift MD Ph:[phone] Test Performed at: [facility] [address] [facility] [address] Blood BLOOD SPECIMEN / Unknown 04/08/2023 8:58 AM EST 04/08/2023 2:11 PM EST Georgi Butterfield MD HEMATOLOGY ORDERABL ES Performing Organization Address [facility] de Phone Number [facility] [address] [place] [address] * Vitamin B12 (04/08/2023 8:58 AM EST) [facility] Vitamin B-12 547 232 - 1245 pg/mL [facility] Comment: Effective 05/05/17 Vitamin B12 Methodology Change - Vitamin B12 Reference Range has been revised. Test Performed at: [facility] [address] [facility] [address] Blood BLOOD SPECIMEN / Unknown 04/08/2023 8:58 AM EST 04/08/2023 2:11 PM EST Georgi Butterfield MD CHEMISTRY ORDERABLE S Performing Organization Address City/[facility] de Phone Number [facility] [address] [place] [address] * Folate (04/08/2023 8:58 AM EST) [facility] Folate 13.39 4.80 - 24.20 ng/mL [facility] Comment: Test Performed at: [facility] [address] [facility] [address] Blood BLOOD SPECIMEN / Unknown 04/08/2023 8:58 AM EST 04/08/2023 2:11 PM EST Georgi Butterfield MD CHEMISTRY ORDERABLE S [facility] [address] [place] [address] documented in this encounter Visit Diagnoses Diagnosis [...] documented as of this encounter Care Teams Administrative Asst Relationship Specialty Start Date End Date Felicitas Monaco MD PCP - General Family Medicine 06/18/22 07/05/23 documented as of this encounter
--- OUTSIDE RECORDS SUMMARY | 2024-01-13 03:16 | XMS_ITS | Encounter Summary ---
Author Organization Jose Alejandro [facility]ja [facility] Address [address] [place] [address] Care Team Providers Care [employer] Division Manager Name Role Phone Cheo Santoyo DO Primary Care Provider [phone] Reason for Referral * Medication Prior Authorization - Closed Specialty Diagnoses / Procedures Referred By Rachid jimenez Referred To Contact Diagnoses Primary hypertension Cheo Santoyo DO [address] [place] [phone] Referral ID Status Reason Start Date Expiration Date Visits Re quested Visits Authorized [id number] Closed 1 1 Reason for Visit * Reason Comments New Patient Establish care Encounter Details Date Type Department Care Team ([facility] Contact Info) Description 07/06/2023 9:00 AM EST Office Visit Primary Care - [address] [address] Cheo Santoyo DO [address] [place] [phone] Type 2 diabetes mellitus without complication, [...] to establish care. 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 He follows the following specialist: Dr Bello (ortho ) bilateral knee replacement Dr Valiente (ortho) Right shoulder Dr Butterfield (onc) - colon cancer s/p right [id number] follows every [address] Hogan (urology)- kidney stones Dr Bettencourt ( ortho ) cervical Dr Bourne (neuro) [facility]. Dr Tomlinson (hand specialist) Left wrist He is establishing care with [facility] tomorrow for neck pain. He declines [...] bundle branch block (LBBB) no longer sees telephone assembler, states stress and testing was completed and telephone assembler signed off PONV (postoperative nausea and vomiting) Post-operative nausea and vomiting AND STATES BODY TEMP DROPPED TO 94 DEGREES F Sleep apnea MILD AND DOES NOT USE CPAP Spinal stenosis Type 2 diabetes mellitus without complication ([facility]) Past Surgical History: Procedure Laterality Date BACK SURGERY 02/05/1986 laminectomy, discectomy CERVICAL DISCECTOMY 04/18/2007 , cervical fusion 2012 COLONOSCOPY MULTIPLE HAND CARPECTOMY Left 2021 HAND SURGERY Right 2001 debby luanr repair HEMICOLECTOMY 2020 HIP SURGERY Right 06/18/2022 INTRA ARTICULAR HIP RIGHT HIP performed by Martinez Guthrie MD at [facility] PA[facility] JOINT REPLACEMENT Right 2011 shoulder KIDNEY STONE SURGERY 2009 basket removal KNEE ARTHROSCOPY Left 10/13/2021 multiple knee scopes right and left 1997 thru 2021 SHOULDER SURGERY Right 2010 2011 right hemiarthroplasty SUBTOTAL COLECTOMY 2019 R. Hemicolectomy TOTAL KNEE ARTHROPLASTY Left 12/21/2022 LEFT TOTAL KNEE ARTHROPLASTY, ROBOTIC performed by Maurice Bello MD at [facility] MAIN OR TOTAL KNEE ARTHROPLASTY Right 03/17/2023 RIGHT TOTAL KNEE ARTHROPLASTY, ROBOTIC performed by Maurice Bello MD at [facility] MAIN OR UPPER GASTROINTESTINAL ENDOSCOPY 2019 Social [...] or absence of malignant disease. Performed At: [address] [id number] Ajit Swift MD Ph:[phone] Test Performed at: [facility] [address] [facility] [place] [place] [address] Sodium 04/08/2023 140 135 - 145 mmol/L [...] estimating GFR in adults. Test Performed at: [facility] [address] [place] [address] WBC 04/08/2023 7.1 4.1 - 10.9 K/uL [...] 400.0 ng/mL Final Comment: Test Performed at: [facility] [address] [place] [address] [place] [address] Iron 04/08/2023 80 59 - 158 mcg/dL Final UIBC 04/08/2023 221.8 112.0 - 347.0 mcg/dL Final TIBC 04/08/2023 302 250 - 450 mcg/dL Final Iron % Saturation 04/08/2023 26 20 - 40 % Final Comment: Test Performed at: [facility] [address] [place] [address] [place] [address] RBC 04/08/2023 5.10 4.00 - 5.60 x10e6/mcL Final Retic Ct Pct 04/08/2023 1.8 0.5 - 2.0 % Final Retic Ct Abs 04/08/2023 0.0933 0.0235 - 0.1220 /mcL Final Comment: Test Performed at: [facility] [address] [place] [address] Soluble Transferrin Recept 04/08/2023 20.7 12.2 - 27.3 nmol/L Final Comment: Performed At: [facility] [address] [id number] Ajit Swift MD Ph:[phone] Test Performed at: [facility] [address] [place] [address] Vitamin B-12 04/08/2023 547 232 - 1245 pg/mL Final Comment: Effective 05/05/17 Vitamin B12 Methodology Change - Vitamin B12 Reference Range has been revised. Test Performed at: [facility] [address] [place] [address] Folate 04/08/2023 13.39 4.80 - 24.20 ng/mL Final Comment: Test Performed at: [facility] [address] [place] [address] IMPRESSION/PLAN Encounter Diagnoses Name Primary? Type 2 [...] AM EDT [facility] [address] [facility] [address] [place] [address] Martell Calderon MD [address] [facility] [address] [place] [address] TREMORS/ MEDICARE, FOR LIFE 03/28/2024 8:30 AM EDT Office Visit Primary Care - [address] [address] Cheo Santoyo DO [facility] [place] [address] AWV 04/06/2024 9:45 AM EST Lab [facility] - [facility] [address] [facility] [address] [place] [address] CBCMP,CEA,FEST 04/06/2024 10:15 AM EST Office Visit [facility] - [facility] [address] [facility] [address] [place] [address] Georgi Butterfield MD 3510 [facility] [address] [place] [address] 6 MTH FU W/LABS, REV SCAN 04/13/2024 9:30 AM EST Office Visit Surgical Oncology - [facility] [address] [facility] [address] [place] [address] Delvis Cheek MD 125 [facility] 660 [place] [address] 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 [address] [place] [address] Karly Bautista PA [address] [place] [address] annual visit from date of [...] time, no major scientific/medical organization including the [place] [employer] and the [place] [employer] have specific recommendations in regard [...] PM EST Cheo Santoyo DO CHEMISTRY ORDERABLES [facility] [address], [facility] [place] [address] * (ABNORMAL) Comprehensive Metabolic Panel (07/06/2023 11:08 [...] Santoyo DO CHEMISTRY ORDERABLES Performing Organization Address City/State/[facility] Co de Phone Number [facility] [address] [place] [address] * (ABNORMAL) Hemoglobin A1C (07/06/2023 11:08 AM EST) Hemoglobin A1C 6.8(H) 4.0 - 6.0 % [facility] Comment: HEMOGLOBIN A1C INTERPRETATION: The [...] Inadequate Control Est. Avg. Glucose, WB 148 [facility] Est. Avg. Glucose-calculated 165 [facility] Blood BLOOD SPECIMEN / Unknown 07/06/2023 11:08 AM EST 07/06/2023 3:58 PM EST Cheo Santoyo DO CHEMISTRY ORDERABLES Performing Organization Address City/State/[facility] de Phone Number [facility] 92[address] [facility] A [place] [id number] * COLONOSCOPY (06/01/2023) 06/01/2023 Historical Provider MD [...] documented as of this encounter Care Teams [employer] Division Manager Relationship Specialty Start Date End Date Cheo Santoyo DO [address] [place] [phone] PCP - General Family Medicine 07/06/23 documented as of this encounter
--- OUTSIDE RECORDS SUMMARY | 2024-01-13 03:16 | XMS_ITS | Encounter Summary ---
Author Organization Jose Alejandro Pantoja [facility] Address [address] [place] [address] Care Team Providers Care Salon Manager Name Role Phone Cheo Santoyo Primary Care Provider [phone] Encounter Details Date Type Department Care Team (Late st Contact Info) Description 03/26/2023 Home Visit [facility] [place] Maurice Panchal MD [address] [address] Social History Tobacco Use Types Packs/Day Years [...] Office Visit Neurology - [facility] [address] [facility] [address] [place] [address] Martell Calderon MD 2[address] [facility] [address] [place] [address] TREMORS/ MEDICARE, FOR LIFE 03/28/2024 8:30 AM EDT Office Visit Primary Care - [address] [address] Cheo Santoyo [address] [address] AWV 04/06/2024 9:45 AM EST Lab [facility] - [facility] [address] [facility] [address] [place] [address] CBCMP,CEA,FEST 04/06/2024 10:15 AM EST Office Visit [facility] - [facility] [address] [facility] [address] [place] [address] Georgi Butterfield MD 3510 [facility] [address] [place] [address] 6 MTH FU W/LABS, REV SCAN 04/13/2024 9:30 AM EST Office Visit Surgical Oncology - [facility] [address] [facility] [address] [place] [address] Delvis Cheek MD 125 [facility] 660 [place] [address] 1 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 documented as of this encounter Visit Diagnoses Not on filedocumented in this encounter Additional Health Concerns Assessment Noted Time A fall risk assessment has been complete d for the patient 02/26/2023 9:45 AM EDT documented as of this encounter Care Teams Salon Manager Relationship Specialty Start Date End Date Cheo Santoyo DO [address] [place] [phone] PCP - General Family Medicine 07/06/23 documented as of this encounter
--- OUTSIDE RECORDS SUMMARY | 2024-01-13 03:16 | XMS_ITS | Encounter Summary ---
Author Organization Jose Alejandro Pantoja [facility] Address [address] [place] [address] Care Team Providers Care Paper Bag Making Machinist Name Role Phone Cheo Santoyo DO Primary Care Provider [phone] Encounter Details Date Type Department Care Team ([facility] st Contact Info) Description 07/23/2023 Abstract Primary Care - [address] [phone] Cheo Santoyo DO [address] [place] [phone] Social History Tobacco Use Types Packs/Day [...] Upcoming Encounters Date Type Department Care Team ([facility] st Contact Info) Description 03/24/2024 9:00 AM EDT Office Visit Neurology - [facility] 2[address] [facility] [address] [place] [address] Martell Calderon MD [address] [facility] [address] [place] [address] TREMORS/ MEDICARE, FOR LIFE 03/28/2024 8:30 AM EDT Office Visit Primary Care - [address] [address] Cheo Santoyo [address] [address] AWV 04/06/2024 9:45 AM EST Lab [facility] - [facility] 2084 [facility] [address] [place] [address] CBCMP,CEA,FEST 04/06/2024 10:15 AM EST Office Visit [facility] - [facility] [address] [facility] [address] [place] [address] Georgi Butterfield MD 3510 [facility] [address] [place], [place] [phone] 6 MTH FU W/LABS, REV SCAN 04/13/2024 9:30 AM EST Office Visit Surgical Oncology - [facility] 20[address] [facility] [address] [place] [address] Delvis Cheek MD 125 [facility] 660 [place] [address] 1 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 documented as of this encounter Visit Diagnoses Not on filedocumented in this encounter Additional Health Concerns Assessment Noted Time A fall risk assessment has been complete d for the patient 07/06/2023 9:36 AM EST documented as of this encounter Care Teams Paper Bag Making Machinist Relationship Specialty Start Date End Date Cheo Santoyo DO [address] [place] [phone] PCP - General Family Medicine 07/06/23 documented as of this encounter
--- OUTSIDE RECORDS SUMMARY | 2024-01-13 03:16 | XMS_ITS | Encounter Summary ---
Author Organization Jose Alejandro Raymundolinnea [facility] Address [address] [place] [address] Care Team Providers Care Dielectric Tester Name Role Phone Felicitas Monaco MD Primary Care Provider [phone] Reason for Referral * Imaging (Routine) - Open Specialty Diagnoses / Procedures Referred By [facility] Referred To Contact Radiology Diagnoses Carcinoma of ascending colon (HCC) Adenocarcinoma of cecum (HCC) Malignant neoplasm of intestine (HCC) Procedures CT ABDOMEN PELVIS W IV CONTRAST Additional Contrast? None Georgi Butterfield MD [address] [place] [address] Referral ID Status Reason Start Date Expiration Date Visits Re quested Visits Authorized [id number] Open 04/07/2023 04/06/2024 1 1 * Imaging (Routine) - Open Specialty Diagnoses / Procedures [facility] Referred To Contact Radiology Diagnoses Carcinoma of ascending colon (HCC) Adenocarcinoma of cecum (HCC) Malignant neoplasm of intestine (HCC) Procedures CT CHEST W CONTRAST Georgi Butterfield MD [address] [place] [address] Referral ID Status Reason Start Date Expiration Date Visits Re quested Visits Authorized [id number] Open 04/07/2023 04/06/2024 1 1 Reason for Visit * Imaging (Routine) - Open Specialty Diagnoses / Procedures Referred By Rachid t Referred To Contact Radiology Diagnoses Carcinoma of ascending colon (HCC) Adenocarcinoma of cecum (HCC) Malignant neoplasm of intestine (HCC) Procedures CT ABDOMEN PELVIS W IV CONTRAST Additional Contrast? None Georgi Butterfield MD 3510 [facility] [address] [facility] [address] [place] [address] Referral ID Status Reason Start Date Expiration Date Visits Re quested Visits Authorized [id number] Open 04/07/2023 04/06/2024 1 1 Encounter Details Date Type Department Care Team (Latest Contact Info) Description 04/07/2023 10:04 AM EST - 04/07/2023 11:59 PM EST Hospital Encounter [facility] [address] [place] [address] Georgi Butterfield MD [address] [place] [address] Carcinoma of ascending colon (HCC); Adenocarcinoma of [...] Neurology - [facility] [address] [facility] [address] [place] [address] Martell Calderon MD [address] [facility] [address] [place] [address] TREMORS/ MEDICARE, FOR LIFE 03/28/2024 8:30 AM EDT Office Visit Primary Care - [facility] [address] [place] [phone] Cheo Santoyo DO [address] [place] [address] AWV 04/06/2024 9:45 AM EST Lab [facility] - [facility] [address] [facility] [address] [place] [address] CBCMP,CEA,FEST 04/06/2024 10:15 AM EST Office Visit [facility] - [facility] [address] [facility] [place] [address] [place] [address] Georgi Butterfield MD 3510 [facility] [address] [place] [address] 6 MTH FU W/LABS, REV SCAN 04/13/2024 9:30 AM EST Office Visit Surgical Oncology - [facility] [address] [facility] [place] [address] [place] [address] Delvis Cheek MD 125 [facility] [address] [place] [address] 1 YEAR F/U ADENOCARCINOMA OF THE CECUM 06/19/2024 10:30 AM EST Office Visit Orthopaedics- Les Valencia [address] [facility] [address] [place] [address] Karly Bautista W, BURT [address] [place] [address] annual visit from date of [...] recurrent or metastatic disease. Georgi Butterfield MD [facility] CT ORDERABLES * CT CHEST W CONTRAST [...] documented as of this encounter Care Teams Dielectric Tester Relationship Specialty Start Date End Date Felicitas Monaco MD PCP - General Family Medicine 06/18/22 07/05/23 documented as of this encounter
--- OUTSIDE RECORDS SUMMARY | 2024-01-13 03:17 | XMS_ITS | Encounter Summary ---
Author Organization Jose Alejandro [facility]mundolinnea [facility] Address [address] [place] [address] Care Team Providers Care Operator Bearer Systems Name Role Phone Felicitas Monaco MD Primary Care Provider [phone] Reason for Visit * Reason Onset Date Comments Medication Refill 02/12/2023 Encounter Details Date Type Department Care Team (Late st Contact Info) Description 02/12/2023 Refill Primary Care - [address] - [address] [place] [address] Felicitas Monaco MD [address] [place] [phone] Medication Refill Social History Tobacco Use [...] 9:00 AM EDT Office Visit Neurology - [facility] [address] [facility] [address] [place] [phone] Martell Calderon MD 2144 [facility] [address] [place] [address] TREMORS/ MEDICARE, FOR LIFE 03/28/2024 8:30 AM EDT Office Visit Primary Care - [address] [address] Cheo Santoyo DO [address] [place] [phone] AWV 04/06/2024 9:45 AM EST Lab [facility] - [facility] [address] [facility] [address] [place] [address] CBCMP,CEA,FEST 04/06/2024 10:15 AM EST Office Visit [facility] - [facility] [address] [facility] [place] [address] [place] [address] Georgi Butterfield MD [address] [place] [address] 6 MTH FU W/LABS, REV SCAN 04/13/2024 9:30 AM EST Office Visit Surgical Oncology - [facility] [address] [facility] [place] [address] [place] [address] Delvis Cheek MD 125 [facility] [address] [place] [address] 1 YEAR F/U ADENOCARCINOMA OF THE CECUM 06/19/2024 10:30 AM EST Office Visit Orthopaedics- Les Valencia 615 [facility] 100 [place] [address] Karly Bautista, PA [address] [facility] [address] [place] [phone] annual visit from date of surgery May/Jul 2024 for bilateral TKA and right LIZZ with Karly. documented as of this encounter Visit Diagnoses Not on filedocumented in this encounter Additional Health Concerns Assessment Noted Time A fall risk assessment has been complete d for the patient 01/19/2023 2:33 PM EDT documented as of this encounter Care Teams Operator Bearer Systems Relationship Specialty Start Date End Date Felicitas Monaco MD PCP - General Family Medicine 06/18/22 07/05/23 documented as of this encounter
--- OUTSIDE RECORDS SUMMARY | 2024-01-13 03:17 | XMS_ITS | Encounter Summary ---
Author Organization [facility] Address [address] [place] [address] Care Team Providers Care Glueline Worker Name Role Phone Felicitas Monaco MD Primary Care Provider [phone] Reason for Visit * Auth/Cert (Routine) Specialty Diagnoses / Procedures Referred By Rachid jimenez Referred To Contact Diagnoses Primary osteoarthritis of left knee Primary osteoarthritis of left knee [M17.12] Procedures DE ARTHRP KNE CONDYLE&PLATU MEDIAL&LAT COMPARTMENTS LEFT TOTAL KNEE ARTHROPLASTY, ROBOTIC Maurice Panchal MD [address] [address] Referral ID Status Reason Start Date Expiration Date Visits Re quested Visits Authorized [id number] 1 1 Encounter Details Date Type Department Care Team (Late st Contact Info) Description 12/21/2022 7:30 AM EDT - 12/21/2022 8:30 AM EDT Surgery [facility] [address] [address] Maurice Panchal MD [address] [address] LEFT TOTAL KNEE ARTHROPLASTY, ROBOTIC Surgery Details [...] MD Primary Orthopedics 1 Special Needs Daxa Masking Machine Feeder/Stewart 12/17 documented in this encounter Social History [...] your leg to the starting point. ?? [phone] The [employer]. All rights reserved. This information is not intended as a substitute for professional medical care. Always follow your healthcare professional's instructions. * Attachments The following attachments cannot be sent through Care Everywhere. * acetaminophen (oral) (Tajik) * aspirin (oral) (Tajik) * celecoxib (Tajik) * Constipation (Tajik) * DVT (Deep Vein Thrombosis) (Tajik) * oxycodone (Tajik) * Pulmonary Embolism (Tajik) documented in this encounter Medications at Time [...] Acute Care Physical Therapy Treatment Note Observation (CRM BUSINESS ANALYST/PT Visit Days : 2) Time In: 1449 [...] program; Therapeutic activities Goals Short Term Goals Supervisor Winter Goals Time Frame for Short Term Goals: [...] included. Acute Care Physical Therapy Evaluation Observation (CRM BUSINESS ANALYST/PT Visit Days : 1) Time In: 1449 [...] program, Therapeutic activities Goals Short Term Goals Supervisor Winter Goals Time Frame for Short Term Goals: [...] EDT Pre Procedure Patient Instructions Procedure Location hospital:[facility] [address] [facility]- Arrival before 6:30a: Park in front [...] Living Will and/or Medical Durable Power of Death Clearance Coordinator if you have one Bring a list [...] you have any additional questions please contact [phone] For financial questions regarding your procedure at a [facility], please contact [phone], option 1 For financial questions regarding anesthesia at a [facility], please contact [phone] documented in this encounter Plan of Treatment Upcoming Encounters Date Type Department Care Team ([facility] st Contact Info) Description 03/24/2024 9:00 AM EDT Office Visit Neurology - [address] Dr[address] [place] [address] Martell Calderon MD [address] [facility] [address] [place] [address] TREMORS/ MEDICARE, FOR LIFE 03/28/2024 8:30 AM EDT Office Visit Primary Care - [address] [address] Cheo Santoyo DO [address] [place] [address] AWV 04/06/2024 9:45 AM EST Lab [facility] - [facility] [address] [facility] [address] [place] [address] CBCMP,CEA,FEST 04/06/2024 10:15 AM EST Office Visit [facility] - [facility] [address] [facility] [address] [place] [address] Georgi Butterfield MD [address] [place] [address] 6 MTH FU W/LABS, REV SCAN 04/13/2024 9:30 AM EST Office Visit Surgical Oncology - [facility] [address] [facility] [address] [place] [address] Delvis Cheek MD 125 [facility] [address] [place] [address] 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 documented as of this encounter Procedures Procedure Name Priority Date/Time Associated Diagnosis Comments DE ARTHRP KNE CONDYLE&PLATU MEDIAL&LAT COMPARTMENTS 12/21/2022 7:24 AM EDT Primary osteoarthritis of left knee Special Needs Daxacatarino Summers/Stewart 12/17 POCT GLUCOSE Routine 12/21/2022 7:02 AM EDT documented in this encounter Results * (ABNORMAL) POCT Glucose (12/21/2022 7:02 AM EDT) POC Glucose 127.0(H) 65.0 - 110.0 mg/dL [facility] Comment:MP - AMB PACU Blood 12/21/2022 7:02 AM EDT 12/21/2022 7:02 AM EDT Maurice Panchal MD POINT OF CARE TEST O RDERABLES Performing Organization Address City/State/[facility] Co de Phone Number [facility] [address] [place] [address] documented in this encounter Visit Diagnoses Diagnosis [...] Assess pain q4hrs May increase/decrease 2 ml/hr [id number] for adequate pain control pain up to max of 14 ml/hr Decrease infusion rate to 4 ml/hr [id number] prior to physical therapy or ambulation for [...] mL IVPB (mini-bag) (COMPLETED) 2,000 mg, IntraVENous, LOOM OPERATOR TO O.R., 1 dose, On Wed12/21/22 at [...] at 400 mL/hr, Administer over 15 Minutes, LOOM OPERATOR TO O.R., On Wed12/21/22 at 0630, For [...] Assess pain q4hrs May increase/decrease 2 ml/hr [id number] for adequate pain control pain up to max of 14 ml/hr Decrease infusion rate to 4 ml/hr [id number] prior to physical therapy or ambulation for [...] Post-op documented in this encounter Care Teams Glueline Worker Relationship Specialty Start Date End Date Felicitas Monaco MD PCP - General Family Medicine 06/18/22 07/05/23 documented as of this encounter
--- OUTSIDE RECORDS SUMMARY | 2024-01-13 03:17 | XMS_ITS | Encounter Summary ---
Author Organization Jose Alejandro [facility] Address [address] [place] [address] Care Team Providers Care Administrative Law Judge Name Role Phone Felicitas Monaco MD Primary Care Provider [phone] Reason for Visit * Reason Onset Date Comments Other 03/01/2023 Encounter Details Date Type Department Care Team (Late st Contact Info) Description 03/01/2023 Telephone Orthopaedics - [address] - [facility] [address] [place] [phone] Maurice Panchal MD [address] [place] [address] [place] [address] Other Social History Tobacco Use Types Packs/Day [...] 9:00 AM EDT Office Visit Neurology - [facility] [address] [facility] [address] [place] [address] Martell Calderon MD 2[address] [facility] [address] [place] [address] TREMORS/ MEDICARE, FOR LIFE 03/28/2024 8:30 AM EDT Office Visit Primary Care - [address] [address] Cheo Santoyo DO [address] [place] [address] AWV 04/06/2024 9:45 AM EST Lab [facility] - [facility] [address] [facility] [address] [place] [address] CBCMP,CEA,FEST 04/06/2024 10:15 AM EST Office Visit [facility] - [facility] [address] [facility] [address] [place] [address] Georgi Butterfield MD [address] [place] [address] 6 MTH FU W/LABS, REV SCAN 04/13/2024 9:30 AM EST Office Visit Surgical Oncology - [facility] [address] [facility] [address] [place] [address] Delvis Cheek MD 125 [facility] [address] [place] [address] 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 documented as of this encounter Visit Diagnoses Not on filedocumented in this encounter Additional Health Concerns Assessment Noted Time A fall risk assessment has been complete d for the patient 02/26/2023 9:45 AM EDT documented as of this encounter Care Teams Administrative Law Judge Relationship Specialty Start Date End Date Felicitas Monaco MD PCP - General Family Medicine 06/18/22 07/05/23 documented as of this encounter
--- OUTSIDE RECORDS SUMMARY | 2024-01-13 03:17 | XMS_ITS | Encounter Summary ---
Author Organization Jose Alejandro [facility] Address [address] [place] [address] Care Team Providers Care Racehorse Trainer Name Role Phone Felicitas Monaco MD Primary Care Provider [phone] Reason for Visit * Auth/Cert (Routine) Specialty Diagnoses / Procedures Referred By Rachid jimenez Referred To Contact Diagnoses Primary osteoarthritis of right knee Primary osteoarthritis of right knee [M17.11] Procedures MA ARTHRP KNE CONDYLE&PLATU MEDIAL&LAT COMPARTMENTS RIGHT TOTAL KNEE ARTHROPLASTY, ROBOTIC Maurice Panchal MD [address] [address] Referral ID Status Reason Start Date Expiration Date Visits Re quested Visits Authorized [id number] 1 1 Encounter Details Date Type Department Care Team (Late st Contact Info) Description 03/17/2023 9:30 AM EDT - 03/17/2023 10:30 AM EDT Surgery [facility] [address] [place] [address] Maurice Panchal MD [address] [id number] RIGHT TOTAL KNEE ARTHROPLASTY, ROBOTIC Surgery Details [...] MD Primary Orthopedics 1 Special Needs Daxa Disease Management Nurse/mg mcarthur documented in this encounter Social History [...] 7-10 days after day of surgery 3. [place] are removed 10-14 days after surgery Then [...] - please call Dr. Panchal's office at [phone] AQUACEL DRESSING Aquacel?? Ag dressing is a [...] dressing No dressing required FOR TOTAL KNEES: [place] will be removed by home health 10-14 [...] NUMBERS - 24 HOUR patient nursing hotline: [phone] Call your doctor if you have: A [...] 10 to 30 times each hour. ?? [phone] [employer]. All rights reserved. This information is not [...] when you can stop using them. ?? 4074-1709 [employer]. All rights reserved. This information is not [...] have about your recovery or activities. ?? [phone] [employer]. All rights reserved. This information is not [...] your leg to the starting point. ?? [phone] [employer]. All rights reserved. This information is not [...] your leg to the starting point. ?? [phone] [employer]. All rights reserved. This information is not intended as a substitute for professional medical care. Always follow your healthcare professional's instructions. * Attachments The following attachments cannot be sent through Care Everywhere. * acetaminophen (oral) (Luxembourger) * aspirin (oral) (Luxembourger) * celecoxib (Luxembourger) * docusate (oral/rectal) (Luxembourger) * Constipation (Luxembourger) * DVT (Deep Vein Thrombosis) (Luxembourger) * Pulmonary Embolism (Luxembourger) documented in this encounter Medications at Time [...] this encounter Progress Notes * Chrissy Mcdonnell, TANK MAKER WOOD - 03/18/2023 1:26 PM EDT Images from the original note were not included. Acute Care Physical Therapy Treatment Note Observation (TANK MAKER WOOD/PT Visit Days : 2) Time In: 911 [...] Within Normal Limits Orientation Level: Oriented X4 [facility]?6 Clicks?? Basic Mobility Inpatient Short Form How [...] 3-5 steps with a railing?: A Little [facility] Inpatient Mobility Raw Score : 22 [facility] Inpatient T-Scale Score : 53.28 Mobility [...] length Distance: 200 FT Therapeutic Exercise (CPT 94214) (8 minutes) Exercise Treatment: PERFORMED HEELSLIDES FOR ROM X 5 REPS; REVIEWED ANKLE PUMPS, QUAD SETS AND GLUTEAL SETS To Improve:activity tolerance, AROM, strength, and mobility Gait Training (20 Minutes) CPT 88748: Gait training for 200 feet utilizing Gait [...] UNDERSTANDING OF STG 3 Short Term Goals Senior Developer Goals Time Frame for Short Term Goals: [...] Homemaking Assistance: Independent Homemaking Responsibilities: Yes Active X Ray Inspector: Yes 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 Safety: Type of Devices: All fall risk precautions in place;Gait belt;Call light within reach;Left in chair;Nurse notified Education: Education Given To: Patient Education Provided: Role of Therapy;ADL Adaptive Strategies;Energy Conservation;Fall Prevention Strategies;Transfer Training Education Method: Demonstration;Verbal Education Outcome: Verbalized understanding;Demonstrated understanding [facility] AM-PAC?6 Clicks?? Basic ADL Inpatient Short Form [...] 12:23 PM EDT Orthopedic Progress Note Date:03/18/2023 Room:[address] [place] [address] Patient Name:Martínez Toribio Date of :1955 Age:68 [...] included. Acute Care Physical Therapy Evaluation Observation (TANK MAKER WOOD/PT Visit Days : 1) Time In: 1733 [...] Positioning, Therapeutic activities Goals Short Term Goals Senior Living Goals Time Frame for Short Term Goals: [...] EDT Pre Procedure Patient Instructions Procedure Location hospital:[facility] [address], [facility]- If your arrival is scheduled between 6:30a-4:30p: Enter building at Outpatient Services, turn right and follow hallway to [facility], then take stairs or elevator to [...] wear artificial nails and only clear nail greek on natural nails. Nails must be trimmed [...] Living Will and/or Medical Durable Power of Parent Educator if you have one Bring a list [...] you have any additional questions please contact [phone] To pre-register for your procedure please call [phone] Option 1 For financial questions regarding your procedure at a [facility] facility, please contact [phone] For financial questions regarding anesthesia at a [facility] facility, please contact [phone] For SleepOutblack eagle Patient Portal help please call [phone] documented in this encounter Plan of Treatment Upcoming Encounters Date Type Department Care Team (Late st Contact Info) Description 03/24/2024 9:00 AM EDT Office Visit Neurology - [facility] [place] [address] [facility] [place] [address] Martell Calderon MD 2[address] [facility] [address] [place] [address] TREMORS/ MEDICARE, FOR LIFE 03/28/2024 8:30 AM EDT Office Visit Primary Care - [address] [address] Cheo Santoyo DO [address] [place] [address] AWV 04/06/2024 9:45 AM EST Lab [facility] [address] [facility] [address] [place] [address] CBCMP,CEA,FEST 04/06/2024 10:15 AM EST Office Visit [facility] - [facility] [place] [address] [facility] [address] [place] [address] Georgi Butterfield MD [address] [place] [address] 6 MTH FU W/LABS, REV SCAN 04/13/2024 9:30 AM EST Office Visit Surgical Oncology - [facility] [place] [address] [place] [address] Delvis Cheek MD [address] [place] [address] 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 06/19/2024 10:30 AM EST Office Visit Orthopaedics- Les Valencia [address] [facility] [address] [place] [address] Karly Bautista PA [address] [place] [address] annual visit from date of [...] METABOLIC PANEL Routine 03/18/2023 5:08 AM EDT MA ARTHRP KNE CONDYLE&PLATU MEDIAL&LAT COMPARTMENTS 03/17/2023 9:16 AM EDT Primary osteoarthritis of right knee Special Needs Daxa Summers/mg mcarthur POCT GLUCOSE Routine 03/17/2023 8:11 AM EDT documented in this encounter Results * Hemoglobin and Hematocrit (03/18/2023 5:08 AM EDT) Hemoglobin 13.9 13.0 - 17.3 g/dL [facility] Hematocrit 42.4 38.0 - 52.0 % [facility] Blood BLOOD SPECIMEN / Unknown 03/18/2023 5:08 AM EDT 03/18/2023 5:12 AM EDT Karly Bautista PA HEMATOLOGY ORDERABLE S [facility] [address] [place] [address] * (ABNORMAL) Basic Metabolic Panel (03/18/2023 5:08 [...] AM EDT Karly DALLAS CHEMISTRY ORDERABLES [facility] [address] [facility] [address] [place] [address] * POCT Glucose (03/17/2023 8:11 AM EDT) POC Glucose 108.0 65.0 - 110.0 mg/dL [facility] Comment:MP - AMB PACU Blood 03/17/2023 8:11 AM EDT 03/17/2023 8:11 AM EDT Maurice Panchal MD POINT OF CARE TEST O RDERABLES [facility] [address] [place] [address] documented in this encounter Visit Diagnoses Diagnosis [...] Assess pain q4hrs May increase/decrease 2 ml/hr [id number] for adequate pain control pain up to max of 14 ml/hr Decrease infusion rate to 4 ml/hr [id number] prior to physical therapy or ambulation for [...] mL IVPB (mini-bag) (COMPLETED) 2,000 mg, IntraVENous, FIRE PRODUCTION OPERATOR TO O.R., 1 dose, On Wed03/17/23 at [...] at 400 mL/hr, Administer over 15 Minutes, FIRE PRODUCTION OPERATOR TO O.R., On Wed03/17/23 at 0800, For [...] Assess pain q4hrs May increase/decrease 2 ml/hr [id number] for adequate pain control pain up to max of 14 ml/hr Decrease infusion rate to 4 ml/hr [id number] prior to physical therapy or ambulation for [...] documented as of this encounter Care Teams Racehorse Trainer Relationship Specialty Start Date End Date Felicitas Monaco MD PCP - General Family Medicine 06/18/22 2 documented as of this encounter
--- OUTSIDE RECORDS SUMMARY | 2024-01-13 03:17 | XMS_ITS | Encounter Summary ---
Author Organization Jose Alejandro Pantoja [facility] Address [address] [place] [address] Care Team Providers Care Senior Back End Java Developer Name Role Phone Felicitas Monaco MD Primary Care Provider [phone] Reason for Visit * Reason Comments Post-Op Check L TKA Encounter Details Date Type Department Care Team (Latest Contact Info) Description 01/22/2023 10:00 AM EDT Office Visit Orthopaedics - [address] [phone] Marquise Moses, DIRECTOR NON PROFIT - DRY CLEANER PRESSER Presence of artificial knee joint, left (Primary [...] this encounter Progress Notes * Marquise Moses, DIRECTOR NON PROFIT - DRY CLEANER PRESSER - 01/22/2023 9:59 AM EDT Images from [...] with the patient who was given the [facility] joint replacement notebook and advised to attend the joint class. All questions were answered. Informed consent was given. Patient lives in [place] 4-5 months each year and does a lot of hiking. He has previously been evaluated by Dr. Panchal and deemed a good candidate for righttotal knee arthroplasty Follow-up: After surgery documented in this encounter Plan of Treatment Upcoming Encounters Date Type Department Care Team (Late st Contact Info) Description 03/24/2024 9:00 AM EDT Office Visit Neurology - [facility] 2[address] [facility] [place] [address] [place] [address] Martell Calderon MD 2144 [facility] [address] [place] [address] TREMORS/ MEDICARE, FOR LIFE 03/28/2024 8:30 AM EDT Office Visit Primary Care - [address] [address] Cheo Santoyo [address] [address] AWV 04/06/2024 9:45 AM EST Lab [facility] - [facility] [address] [facility] [address] [place] [address] CBCMP,CEA,FEST 04/06/2024 10:15 AM EST Office Visit [facility] - [facility] [address] [facility] [address] [place] [address] Georgi Butterfield MD [address] [place] [address] 6 MTH FU W/LABS, REV SCAN 04/13/2024 9:30 AM EST Office Visit Surgical Oncology - [facility] [address] [facility] [address] [place] [address] Delvis Cheek MD 125 [facility] 660 [place] [address] 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 06/19/2024 10:30 AM EST Office Visit Orthopaedics- Les Valencia 615 [facility] [address] [place] [phone] Karly Bautista, BURT [address] [place] [address] annual visit from date of [...] without any issues or concerns Marquise Moses DIRECTOR NON PROFIT - DRY CLEANER PRESSER IMG DIAGNOST IC IMAGING ORDERABLES documented in this encounter Visit Diagnoses Diagnosis Presence of artificial knee joint, left- Primary Primary osteoarthritis of right knee Primary localized osteoarthrosis, lower leg documented in this encounter Additional Health Concerns Assessment Noted Time A fall risk assessment has been complete d for the patient 01/19/2023 2:33 PM EDT documented as of this encounter Care Teams Senior Back End Java Developer Relationship Specialty Start Date End Date Felicitas Monaco MD PCP - General Family Medicine 06/18/22 07/05/23 documented as of this encounter
--- OUTSIDE RECORDS SUMMARY | 2024-01-13 03:17 | XMS_ITS | Encounter Summary ---
Author Organization Jose Alejandro Pantoja [facility] Address [address] [place] [address] Care Team Providers Care Stenocaptioner Name Role Phone Felicitas Monaco MD Primary Care Provider [phone] Encounter Details Date Type Department Care Team (Late st Contact Info) Description 12/18/2022 Prep for Procedure Orthopaedics - [place] [id number] [phone] Bonny Mcarthur PA [facility] [address] [address] Social History Tobacco Use Types Packs/Day Years [...] - [facility] [address] [facility] [address] [place] [address] Martell Calderon MD 2144 [facility] [address] [place] [address] TREMORS/ MEDICARE, FOR LIFE 03/28/2024 8:30 AM EDT Office Visit Primary Care - [address] [address] Cheo Santoyo DO [address] [place] [address] AWV 04/06/2024 9:45 AM EST Lab [facility] - [facility] [address] [facility] [address] [place] [address] CBCMP,CEA,FEST 04/06/2024 10:15 AM EST Office Visit [facility] - [facility] [address] [facility] [address] [place] [address] Georgi Butterfield MD [address] [place] [address] 6 MTH FU W/LABS, REV SCAN 04/13/2024 9:30 AM EST Office Visit Surgical Oncology - [facility] [address] [facility] [address] [place] [address] Delvis Cheek MD 125 [facility] [address] [place] [address] 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 documented as of this encounter Visit Diagnoses Not on filedocumented in this encounter Care Teams Stenocaptioner Relationship Specialty Start Date End Date Felicitas Monaco MD PCP - General Family Medicine 06/18/22 07/05/23 documented as of this encounter
--- OUTSIDE RECORDS SUMMARY | 2024-01-13 03:17 | XMS_ITS | Encounter Summary ---
Author Organization Jose Alejandro Raymundolinnea [facility] Address [address] [place] [address] Care Team Providers Care Pipe Roller Name Role Phone Felicitas Monaco MD Primary Care Provider [phone] Reason for Visit * Auth/Cert (Routine) Specialty Diagnoses / Procedures Referred By Rachid jimenez Referred To Contact Diagnoses Primary osteoarthritis of left knee Primary osteoarthritis of left knee [M17.12] Procedures [place] ARTHRP KNE CONDYLE&PLATU MEDIAL&LAT COMPARTMENTS LEFT TOTAL KNEE ARTHROPLASTY, ROBOTIC Maurice Panchal MD [address] [address] Referral ID Status Reason Start Date Expiration Date Visits Re quested Visits Authorized [id number] 1 1 Encounter Details Date Type Department Care Team (Latest Contact Info) Description 12/21/2022 6:04 AM EDT - 12/21/2022 7:00 PM EDT Hospital Encounter [facility] [address] [place] [address] Maurice Panchal MD [address] [address] Primary osteoarthritis of left knee (Primary Dx) [...] your leg to the starting point. ?? [phone] [employer]. All rights reserved. This information is not intended as a substitute for professional medical care. Always follow your healthcare professional's instructions. * Attachments The following attachments cannot be sent through Care Everywhere. * acetaminophen (oral) (Azerbaijani) * aspirin (oral) (Azerbaijani) * celecoxib (Azerbaijani) * Constipation (Azerbaijani) * DVT (Deep Vein Thrombosis) (Azerbaijani) * oxycodone (Azerbaijani) * Pulmonary Embolism (Azerbaijani) documented in this encounter Medications at Time [...] Acute Care Physical Therapy Treatment Note Observation (DENT REMOVER/PT Visit Days : 2) Time In: 1449 [...] program; Therapeutic activities Goals Short Term Goals Spray Machine Operator Goals Time Frame for Short Term Goals: [...] included. Acute Care Physical Therapy Evaluation Observation (DENT REMOVER/PT Visit Days : 1) Time In: 1449 [...] EDT Pre Procedure Patient Instructions Procedure Location hospital:[facility] 3500 [facility]- Arrival before 6:30a: Park in front [...] Living Will and/or Medical Durable Power of Human Resources Support Specialist if you have one Bring a list [...] you have any additional questions please contact [phone] For financial questions regarding your procedure at a [facility], please contact [phone], option 1 For financial questions regarding anesthesia at a [facility], please contact [phone] documented in this encounter Plan of Treatment Upcoming Encounters Date Type Department Care Team (Late st Contact Info) Description 03/24/2024 9:00 AM EDT Office Visit Neurology - [address] [place] [phone] Martell Calderon MD 2145 [facility] [address] [place] [address] TREMORS/ MEDICARE, FOR LIFE 03/28/2024 8:30 AM EDT Office Visit Primary Care - [address] [address] Cheo Santoyo DO [address] [place] [address] AWV 04/06/2024 9:45 AM EST Lab [facility] - [address] [facility] [address] [address] [place] [address] CBCMP,CEA,FEST 04/06/2024 10:15 AM EST Office Visit [facility] - 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 documented as of this encounter Procedures Procedure Name Priority Date/Time Associated Diagnosis Comments AK ARTHRP KNE CONDYLE&PLATU MEDIAL&LAT COMPARTMENTS 12/21/2022 7:24 AM EDT Primary osteoarthritis of left knee Special Needs [place] Student Development Advisor/Stewart 12/17 POCT GLUCOSE Routine 12/21/2022 7:02 AM EDT documented in this encounter Results * (ABNORMAL) POCT Glucose (12/21/2022 7:02 AM EDT) POC Glucose 127.0(H) 65.0 - 110.0 mg/dL [facility] Comment:MP - AMB PACU Blood 12/21/2022 7:02 AM EDT 12/21/2022 7:02 AM EDT Maurice Panchal MD POINT OF CARE TEST O RDERABLES [facility] [address] [place] [address] documented in this encounter Visit Diagnoses Diagnosis [...] Assess pain q4hrs May increase/decrease 2 ml/hr [id number] for adequate pain control pain up to max of 14 ml/hr Decrease infusion rate to 4 ml/hr [id number] prior to physical therapy or ambulation for [...] mL IVPB (mini-bag) (COMPLETED) 2,000 mg, IntraVENous, CIGAR MAKING MACHINE OPERATOR TO O.R., 1 dose, On Wed12/21/22 [...] at 400 mL/hr, Administer over 15 Minutes, CIGAR MAKING MACHINE OPERATOR TO O.R., On Wed12/21/22 at 0630, [...] Assess pain q4hrs May increase/decrease 2 ml/hr [id number] for adequate pain control pain up to max of 14 ml/hr Decrease infusion rate to 4 ml/hr [id number] prior to physical therapy or ambulation for lower extremity nerve catheters. 0845 (New Bag - Prov ider: Julieth Kline RN)0927 ([facility] Hold - Provider: Olivia Autohold - Reason: Patient not available)0942 ([facility] Unhold - Provider: Olivia Autohold)1645 (Stopped [...] Post-op documented in this encounter Care Teams Pipe Roller Relationship Specialty Start Date End Date Felicitas Monaco MD PCP - General Family Medicine 06/18/22 07/05/23 documented as of this encounter
--- OUTSIDE RECORDS SUMMARY | 2024-01-13 03:17 | XMS_ITS | Encounter Summary ---
Author Organization Jose Alejandro Pantoja [facility] Address [address] [place] [address] Care Team Providers Care Casing Grader Name Role Phone Felicitas Monaco MD Primary Care Provider [phone] Encounter Details Date Type Department Care Team (Late st Contact Info) Description 03/01/2023 Orders Only Orthopaedics - [address] [phone] Maurice Panchal MD [address] [address] Preop testing (Primary Dx) Social History Tobacco [...] 9:00 AM EDT Office Visit Neurology - [facility] [address] [facility] [address] [place] [address] Martell Calderon MD 2144 [facility] [address] [place] [address] TREMORS/ MEDICARE, FOR LIFE 03/28/2024 8:30 AM EDT Office Visit Primary Care - [address] [address] Cheo Santoyo DO [address] [place] [address] AWV 04/06/2024 9:45 AM EST Lab [facility] - [facility] [address] [facility] [address] [place] [address] CBCMP,CEA,FEST 04/06/2024 10:15 AM EST Office Visit [facility] - [facility] [address] [facility] [address] [place] [address] Georgi Butterfield MD [address] [place] [address] 6 MTH FU W/LABS, REV SCAN 04/13/2024 9:30 AM EST Office Visit Surgical Oncology - [facility] 20[address] [facility] [address] [place] [address] Delvis Cheek MD 125 [facility] 660 [place] [address] 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 100 [place] [phone] Karly Bautista, BURT 180 [facility] [address] [place] [address] annual visit from date of [...] documented as of this encounter Care Teams Casing Grader Relationship Specialty Start Date End Date Felicitas Monaco MD PCP - General Family Medicine 06/18/22 07/05/23 documented as of this encounter
--- OUTSIDE RECORDS SUMMARY | 2024-01-13 03:17 | XMS_ITS | Encounter Summary ---
Author Organization Jose Alejandro [facility]olinnea [facility] Address [address] [place] [address] Care Team Providers Care Air Support Operations Operator Name Role Phone Felicitas Monaco MD Primary Care Provider [phone] Encounter Details Date Type Department Care Team [...] Dr. [address] [place] [address] Martell Calderon MD [address] [place] [address] TREMORS/ MEDICARE, FOR LIFE 03/28/2024 8:30 AM EDT Office Visit Primary Care - [address] [address] Cheo Santoyo DO [facility] [place] [address] AWV 04/06/2024 9:45 AM EST Lab [facility] [address] [facility] [address] [place] [address] CBCMP,CEA,FEST 04/06/2024 10:15 AM EST Office Visit [facility] - [facility] [address] [facility] [address] [place] [address] Georgi Butterfield MD [address] [place], [place] [address] 6 MTH FU W/LABS, REV SCAN 04/13/2024 9:30 AM EST Office Visit Surgical Oncology - 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 documented as of this encounter Visit Diagnoses Not on filedocumented in this encounter Care Teams Air Support Operations Operator Relationship Specialty Start Date End Date Felicitas Monaco MD PCP - General Family Medicine 06/18/22 07/05/23 documented as of this encounter
--- OUTSIDE RECORDS SUMMARY | 2024-01-13 03:17 | XMS_ITS | Encounter Summary ---
Author Organization Jose Alejandro Raymundolinnea [facility] Address [address] [place] [address] Care Team Providers Care Car Escort Name Role Phone Felicitas Monaco MD Primary Care Provider [phone] Encounter Details Date Type Department Care Team (Late st Contact Info) Description 03/04/2023 Orders Only Primary Care - [address] [place] [address] Felicitas Monaco MD 203 [place] [address] Mixed hyperlipidemia; Well controlled diabetes [...] - [facility] [address] [facility] [address] [place] [address] Martell Calderon MD 2144 [facility] [address] [place], [place] [address] TREMORS/ MEDICARE, FOR LIFE 03/28/2024 8:30 AM EDT Office Visit Primary Care - [address] [phone] Cheo Santoyo, [address] [place] [address] [address] AWV 04/06/2024 9:45 AM EST Lab [facility] - [facility] [address] [facility] [address] [place] [address] CBCMP,CEA,FEST 04/06/2024 10:15 AM EST Office Visit [facility] - [facility] [address] [facility] [address] [place] [address] Georgi Butterfield MD [address] [place] [address] 6 MTH FU W/LABS, REV SCAN 04/13/2024 9:30 AM EST Office [facility] [address] [facility] [address] [place] [address] Delvis Cheek MD 125 [facility] 660 [place] [address] 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 06/19/2024 10:30 AM EST Office Visit Orthopaedics- [place] 615 [facility] [address] [place] [address] Karly Bautista PA [address] [place] [address] annual visit from date of [...] MD CHEMISTRY ORDERABLE S Performing Organization Address City/State/[facility] Co de Phone Number [facility] [address] [facility] [place] [address] * CBC (03/04/2023 1:05 PM EDT) WBC [...] Organization Address [facility] de Phone Number [facility] [address] [place] [address] * Hepatitis C Antibody (03/04/2023 1:05 PM EDT) Hepatitis C Ab Negative Negative [facility] Blood BLOOD SPECIMEN / Unknown 03/04/2023 1:05 PM EDT 03/04/2023 4:05 PM EDT Felicitas Monaco MD IMMUNOLOGY ORDERABL ES Performing Organization Address [facility] de Phone Number [facility] [address] [place] [address] * (ABNORMAL) Hemoglobin A1C (03/04/2023 1:05 PM EDT) Hemoglobin A1C 6.5(H) 4.0 - 6.0 % [facility] Comment: HEMOGLOBIN A1C [...] [facility] Est. Avg. Glucose-calculated 154 [facility] Blood BLOOD SPECIMEN / Unknown 03/04/2023 1:05 PM EDT 03/04/2023 4:05 PM EDT Felicitas Monaco MD CHEMISTRY ORDERABLE S [facility] [address] [facility], [place] [address] * Lipid Panel (03/04/2023 1:05 PM EDT) Cholesterol 115 100 - 200 mg/dL [facility] Comment: The National Cholesterol Education Program has published reference cholesterol values for cardiovascular risk to be: Less than 200 mg/dL ? = Low Risk 200 to 239 mg/dL ?= Borderline Risk 240mg/dL and greater ?= High Risk HDL 40 >=40 mg/dL [facility] Comment: The National Lipid Association and the National Cholesterol Education Program (NCEP) have set the guidelines for high-density lipoprotein (HDL) cholesterol in adults ages 18 and up. Triglycerides 90 0 - 149 mg/dL [facility] Comment: TRIGLYCERIDE INTERPRETATION: ?Recommended Fasting [...] MD CHEMISTRY ORDERABLE S Performing Organization Address City/State/[facility] Co de Phone Number [facility] [address] [facility] [place] [phone] documented in this encounter Visit Diagnoses Diagnosis [...] documented as of this encounter Care Teams Car Escort Relationship Specialty Start Date End Date Felicitas Monaco MD PCP - General Family Medicine 06/18/22 07/05/23 documented as of this encounter
--- OUTSIDE RECORDS SUMMARY | 2024-01-13 03:17 | XMS_ITS | Encounter Summary ---
Author Organization Jose Alejandro Kit [facility] Address [address] [facility] [place] [address] Care Team Providers Care Entry Manager Name Role Phone Felicitas Monaco MD Primary Care Provider [phone] Reason for Referral * Eval and Treat (Routine) - Closed Specialty Diagnoses / Procedures Referred By Rachid jimenez Referred To Contact Physical Therapy Diagnoses Presence of left artificial knee joint Maurice Panchal MD [address] [address] PT/OT, RS-ATI PT MD/[facility] 5401 [facility] [address] Referral ID Status Reason Start Date Expiration Date V isits Requested Visits Authorized [id number] Closed Specialty Services Required 01/06/2023 07/05/2023 1 1 Scheduling Instructions RSF-ATI Physical Therapy 5401 [facility] [id number] Question Answer Reason For External Referral? Patient Preference Comments Physical Therapy / Total Joint Protocol 3 x's weekly for 4-6 weeks Encounter Details Date Type Department Care Team (Late st Contact Info) Description 01/06/2023 Orders Only Orthopaedics - [place] [address] [phone] Maurice Panchal MD [address] [address] Presence of left artificial knee joint (Primary [...] Visit Neurology - [facility] [address] [facility] [address] [place] [address] Martell Calderon MD [address] [facility] [address] [place] [address] TREMORS/ MEDICARE, FOR LIFE 03/28/2024 8:30 AM EDT Office Visit Primary Care - [address] [phone] Cheo Santoyo DO [address] [place] [address] AWV 04/06/2024 9:45 AM EST Lab [facility] - [facility] [address] [facility] [address] [place] [address] CBCMP,CEA,FEST 04/06/2024 10:15 AM EST Office Visit [facility] - [facility] [address] [facility] [address] [place] [address] Georgi Butter[place] MD [address] [place] [address] 6 MTH FU W/LABS, REV SCAN 04/13/2024 9:30 AM EST Office Visit Surgical Oncology - [facility] 20[address] [facility] [address] [place] [address] Delvis Cheek MD 125 [facility] 660 [place] [address] 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 Scheduled Referrals Name Type Priority Associated Diagnoses Orde r Schedule RSF - ATI Physical Therapy - [facility] Outpatient Referral Routine Presence of left artificial knee joint Ordered: 01/06/2023 documented as of this encounter Visit Diagnoses Diagnosis Presence of left artificial knee joint- Primary Knee joint replacement by other means documented in this encounter Care Teams Entry Manager Relationship Specialty Start Date End Date Felicitas Monaco MD PCP - General Family Medicine 06/18/22 07/05/23 documented as of this encounter
--- OUTSIDE RECORDS SUMMARY | 2024-01-13 03:17 | XMS_ITS | Encounter Summary ---
Author Organization Jose Alejandro Pantoja [facility] Address [address] [email or web address] [address] Care Team Providers Care Thermal Spray Operator Name Role Phone Felicitas Monaco MD Primary Care Provider [phone] Reason for Referral * Imaging (Routine) - Closed Specialty Diagnoses / Procedures Referred By Rachid jimenez Referred To Contact Radiology Diagnoses Knee deformity, acquired, right Procedures CT KNEE RIGHT WO CONTRAST Maurice Panchal MD [address] [address] Referral ID Status Reason Start Date Expiration Date Visits Re quested Visits Authorized [id number] Closed 11/27/2022 11/27/2023 1 1 Reason for Visit * Imaging (Routine) - Closed Specialty Diagnoses / Procedures Referred By Rachid jimenez Referred To Contact Radiology Diagnoses Knee deformity, acquired, right Procedures CT KNEE RIGHT WO CONTRAST Maurice Panchal MD [address] [address] Referral ID Status Reason Start Date Expiration Date Visits Re quested Visits Authorized [id number] Closed 11/27/2022 11/27/2023 1 1 Encounter Details Date Type Department Care Team (Latest Contact Info) Description 02/10/2023 12:55 PM EDT - 02/10/2023 11:59 PM EDT Hospital Encounter [facility] [address] [address] Maurice Panchal MD [address] [facility] 105 [place] [address] Knee deformity, acquired, right Discharge Disposition: Home [...] Office Visit Neurology - [address] [facility] [address] [place] [address] Martell Calderon MD 2144 [facility] [address] [place], [place] [address] TREMORS/ MEDICARE, FOR LIFE 03/28/2024 8:30 AM EDT Office Visit Primary Care - [facility] [address] [place] [address] Cheo Santoyo DO [address]12 [place] [address] AWV 04/06/2024 9:45 AM EST Lab [place] [facility] - [facility] 20[address] [facility] [address] [place] [address] CBCMP,CEA,FEST 04/06/2024 10:15 AM EST Office Visit [place] [facility] - [facility] 20[address] [facility] [address] [place] [address] Georgi Butterfield MD 3510 [facility] 17N [facility] 225 [place], [place] [phone] 6 MTH FU W/LABS, REV SCAN 04/13/2024 9:30 AM EST Office Visit Surgical Oncology - [facility] 2084 [facility] [address] [place] [address] Delvis Cheek MD 125 [facility] 660 [place] [address] 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 COMPARISON: 08/20/2022 TECHNIQUE: Axial CT images [...] documented as of this encounter Care Teams Thermal Spray Operator Relationship Specialty Start Date End Date Felicitas Monaco MD PCP - General Family Medicine 06/18/22 07/05/23 documented as of this encounter
--- OUTSIDE RECORDS SUMMARY | 2024-01-13 03:17 | XMS_ITS | Encounter Summary ---
Author Organization Jose Alejandro Pantoja [facility] Address [address] [email or web address] [address] Care Team Providers Care Table Tender Sludge Name Role Phone Felicitas Monaco MD Primary Care Provider [phone] Encounter Details Date Type Department Care Team [...] Neurology - [facility] 2[address] [facility] [address] [place] [address] Martell Calderon MD 2144 [facility] [address] [place] [address] TREMORS/ MEDICARE, FOR LIFE 03/28/2024 8:30 AM EDT Office Visit Primary Care - [address] [address] [place] [address] [place] [address] AWV 04/06/2024 9:45 AM EST Lab [place] [facility] - [facility] 20[address] [facility] [address] [place] [address] CBCMP,CEA,FEST 04/06/2024 10:15 AM EST Office Visit [place] [facility] - [facility] 2084 [facility] [address] [place] [address] Georgi Butterfield MD 3510 [facility] [place], [place] [address] 6 MTH FU W/LABS, REV SCAN 04/13/2024 9:30 AM EST Office Visit Surgical Oncology - [facility] 2084 [facility] [address] [place] [address] Delvis Cheek MD 125 [facility] [address] [place] [address] 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 documented as of this encounter Visit Diagnoses Not on filedocumented in this encounter Additional Health Concerns Assessment Noted Time A fall risk assessment has been complete d for the patient 02/26/2023 9:45 AM EDT documented as of this encounter Care Teams Table Tender Sludge Relationship Specialty Start Date End Date Felicitas Monaco MD PCP - General Family Medicine 06/18/22 07/05/23 documented as of this encounter
--- OUTSIDE RECORDS SUMMARY | 2024-01-13 03:17 | XMS_ITS | Encounter Summary ---
Author Organization Jose Alejandro Pantoja [facility] Address [address] [place] [address] Care Team Providers Care Customer Service Engineer Name Role Phone Felicitas Monaco MD Primary Care Provider [phone] Encounter Details Date Type Department Care Team [...] 9:00 AM EDT Office Visit Neurology - [facility] 2144 [facility] [address] [place] [address] Martell Calderon MD 2144 [facility] [address] [place] [address] TREMORS/ MEDICARE, FOR LIFE 03/28/2024 8:30 AM EDT Office Visit Primary Care - [address] [address] [place] [address] [place] [address] AWV 04/06/2024 9:45 AM EST Lab [place] [facility] - [facility] 2084 [facility] [address] [place] [address] CBCMP,CEA,FEST 04/06/2024 10:15 AM EST Office Visit [place] [facility] - [facility] 2084 [facility] [address] [place] [address] Georgi Butterfield MD 3510 [facility] [address] [place], [place] [address] 6 MTH FU W/LABS, REV SCAN 04/13/2024 9:30 AM EST Office Visit Surgical Oncology - [facility] 2084 [facility] [address] [place] [address] Delvis Cheek MD [address] 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 documented as of this encounter Visit Diagnoses Not on filedocumented in this encounter Additional Health Concerns Assessment Noted Time A fall risk assessment has been complete d for the patient 02/26/2023 9:45 AM EDT documented as of this encounter Care Teams Customer Service Engineer Relationship Specialty Start Date End Date Felicitas Monaco MD PCP - General Family Medicine 06/18/22 07/05/23 documented as of this encounter
--- OUTSIDE RECORDS SUMMARY | 2024-01-13 03:17 | XMS_ITS | Encounter Summary ---
Author Organization Jose Alejandro Raymundolinnea [facility] Address [address] [place] [address] Care Team Providers Care Bradder Name Role Phone Felicitas Monaco MD Primary Care Provider [phone] Encounter Details Date Type Department Care Team [...] Dr. [address] [place] [address] Martell Calderon MD [address] [place] [address] TREMORS/ MEDICARE, FOR LIFE 03/28/2024 8:30 AM EDT Office Visit Primary Care - [address] [address] Cheo Santoyo DO [facility]2 [place] [address] AWV 04/06/2024 9:45 AM EST Lab [place] [facility] - [facility] 2084 [facility] [address] [place] [address] CBCMP,CEA,FEST 04/06/2024 10:15 AM EST Office Visit [place] [facility] - [facility] 2084 [facility] [address] [place] [address] Georgi Butter[place] MD [address] [place], [place] [phone] 6 MTH FU W/LABS, REV SCAN 04/13/2024 9:30 AM EST Office Visit Surgical Oncology - [facility] 2084 [facility] [address] [place] [address] Delvis Cheek MD 125 [facility] 660 [place] [address] 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 documented as of this encounter Visit Diagnoses Not on filedocumented in this encounter Care Teams Bradder Relationship Specialty Start Date End Date Felicitas Monaco MD PCP - General Family Medicine 06/18/22 07/05/23 documented as of this encounter
--- OUTSIDE RECORDS SUMMARY | 2024-01-13 03:17 | XMS_ITS | Encounter Summary ---
Author Organization Jose Alejandro Pantoja [facility] Address [address] [place] [address] Care Team Providers Care Crosstie Inspector Name Role Phone Felicitas Monaco MD Primary Care Provider [phone] Encounter Details Date Type Department Care Team (Late st Contact Info) Description 03/17/2023 Prep for Procedure Orthopaedics - [place] [id number] [address] [phone] Bonny Mcarthur PA [facility] [address] [address] Social History Tobacco Use Types Packs/Day Years [...] Visit Neurology - [facility] 2144 [facility] [address] [place] [address] Martell Calderon MD 2144 [facility] [address] [place] [address] TREMORS/ MEDICARE, FOR LIFE 03/28/2024 8:30 AM EDT Office Visit Primary Care - [address] [address] Cheo Santoyo DO [address] [place] [address] AWV 04/06/2024 9:45 AM EST Lab [place] [facility] - [facility] 2084 [facility] [address] [place] [address] CBCMP,CEA,FEST 04/06/2024 10:15 AM EST Office Visit [place] [facility] - [facility] 2084 [facility] [address] [place] [address] Georgi Butter[place] MD [address] [place] [address] 6 MTH FU W/LABS, REV SCAN 04/13/2024 9:30 AM EST Office Visit Surgical Oncology - [facility] 2084 [facility] [address] [place] [address] Delvis Cheek MD 125 [facility][Note 3] [address] [place] [address] 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 documented as of this encounter Visit Diagnoses Not on filedocumented in this encounter Additional Health Concerns Assessment Noted Time A fall risk assessment has been complete d for the patient 02/26/2023 9:45 AM EDT documented as of this encounter Care Teams Crosstie Inspector Relationship Specialty Start Date End Date Felicitas Monaco MD PCP - General Family Medicine 06/18/22 07/05/23 documented as of this encounter
--- OUTSIDE RECORDS SUMMARY | 2024-01-13 03:17 | XMS_ITS | Encounter Summary ---
Author Organization Jose Alejandro Raymundolinnea [facility] Address [address] [place] [address] Care Team Providers Care Stationary Engineer Name Role Phone Felicitas Monaco MD Primary Care Provider [phone] Reason for Visit * Reason Comments Medicare AWV Encounter Details Date Type Department Care Team (Late st Contact Info) Description 03/01/2023 11:00 AM EDT Office Visit Primary Care - [address] [place] [address] Felicitas Monaco MD [address] [place] [phone] Medicare annual wellness visit, subsequent (Primary [...] Where can you learn more? Go to [email or web address]/patientEd and enter W864 to learn more about Fatigue: Care Instructions. Current as of: November 22, 2022?Content Version: 13.8 ?? [employer]. Care instructions adapted under license by [employer]. If you have questions about a medical condition or this instruction, always ask your healthcare professional. [employer] disclaims any warranty or liability for your [...] Where can you learn more? Go to [email or web address].[email or web address]/patientEd and enter W984 to learn more about Hearing Loss: Care Instructions. Current as of: July 28, 2022?Content Version: 13.8 ?? [employer]. Care instructions adapted under license by [employer]. If you have questions about a medical condition or this instruction, always ask your healthcare professional. [employer], [employer] disclaims any warranty or liability for your [...] irregular heartbeat. After you call 911, the fret saw operator may tell you to chew 1 [...] of: November 22, 2022?Content Version: 13.8 ?? [employer]. Care instructions adapted under license by [employer]. If you have questions about a medical condition or this instruction, always ask your healthcare professional. [employer] disclaims any warranty or liability for your [...] A preventive eye exam performed by an physical security specialist is recommended every 1-2 years to screen for glaucoma; cataracts, macular degeneration, and other eye disorders. A preventive dental visit is recommended every 6 months. Try to get at least 150 minutes of exercise per week or 10,000 steps per day on a pedometer . Order or download the FREE Exercise & Physical Activity: Your Everyday Guide from [employer] [place] [employer]. Call or search [employer] [place] [employer] online. You need 6125-0319 mg of calcium and 8848-2158 IU of vitamin D per day. It [...] time. Limited mobility. -Has SAW neurosurgery with [facility] who had no recommendations for surgery. Has [...] to d/c the Carafate and iron. -his lab tester felt the ulcer was related to his [...] Office Visit Neurology - Maryan [address] [place] [address] Martell Calderon MD 2144 [facility] [address] [place] [address] TREMORS/ MEDICARE, FOR LIFE 03/28/2024 8:30 AM EDT Office Visit Primary Care - [address] [address] Cheo Santoyo DO [address] [place] [address] AWV 04/06/2024 9:45 AM EST Lab [facility] - [facility] [address] [facility] [address] [place] [address] CBCMP,CEA,FEST 04/06/2024 10:15 AM EST Office Visit [facility] - [facility] [address] [facility] [address] [place] [address] Georgi Butterfield MD [address] [place] [address] 6 MTH FU W/LABS, REV SCAN 04/13/2024 9:30 AM EST Office Visit Surgical Oncology - [facility] [address] [facility] [address] [place] [address] Delvis Cheek MD 125 [facility] 660 [place] [address] 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 documented as of this encounter Results * Lipid Panel (03/04/2023 1:05 PM EDT) [facility] Cholesterol 115 100 - 200 mg/dL RS [...] MD CHEMISTRY ORDERABLE S Performing Organization Address City/State/[facility] Co de Phone Number [facility] [address] [place] [address] * (ABNORMAL) Hemoglobin A1C (03/04/2023 1:05 PM EDT) Hemoglobin A1C 6.5(H) 4.0 - 6.0 % [facility] Comment: HEMOGLOBIN A1C INTERPRETATION: [...] Est. Avg. Glucose, WB 140 [facility] Est. Avg. Glucose-calculated 154 [facility] Blood BLOOD SPECIMEN / Unknown 03/04/2023 1:05 PM EDT 03/04/2023 4:05 PM EDT Felicitas Monaco MD CHEMISTRY ORDERABLE S Performing Organization Address City/State/[facility] Co de Phone Number [facility] [address] [facility] [place] [address] documented in this encounter Visit Diagnoses Diagnosis Medicare annual wellness visit, subsequent- Primary Routine general medical examination at a health care facility Well controlled diabetes mellitus (HCC) Mixed hyperlipidemia documented in this encounter Additional Health Concerns Assessment Noted Time A fall risk assessment has been complete d for the patient 02/26/2023 9:45 AM EDT documented as of this encounter Care Teams Stationary Engineer Relationship Specialty Start Date End Date Felicitas Monaco MD PCP - General Family Medicine 06/18/22 07/05/23 documented as of this encounter
--- OUTSIDE RECORDS SUMMARY | 2024-01-13 03:17 | XMS_ITS | Encounter Summary ---
Author Organization [facility] Alej[facility] Raymundolinnea [facility] Address [address] [employer] [place] [address] Care Team Providers Care Forging Press Lever Tender Name Role Phone Felicitas Monaco MD Primary Care Provider [phone] Reason for Visit * Reason Onset Date Comments Call Patient 03/15/2023 Encounter Details Date Type Department Care Team (Late st Contact Info) Description 03/15/2023 Telephone Orthopaedics - Emy S[address] Dr[address] [facility] [address] [place] [address] Maurice Panchal MD 4484 [facility] 17 [facility] [address] [place] [address] Call Patient Social History Tobacco [...] [facility], [place] 2[address] [facility] [address] [place] [address] Martell Calderon MD 2144 [facility] [place] [address] [place] [address] TREMORS/ MEDICARE, FOR LIFE 03/28/2024 8:30 AM EDT Office Visit Primary Care - [address] [address] Cheo Santoyo DO [address] [place] [phone] AWV 04/06/2024 9:45 AM EST Lab [facility] - [facility] [place] 20[address] [facility] [address] [place] [address] CBCMP,CEA,FEST 04/06/2024 10:15 AM EST Office Visit [facility] - [facility] [place] 20[address] [facility] [address] [place] [address] Georgi Butterfield MD [address] [place] [address] 6 MTH FU W/LABS, REV SCAN 04/13/2024 9:30 AM EST Office Visit Surgical Oncology - [facility] [place] [address] [facility] [address] [place] [address] Delvis Cheek MD 125 [facility] 660 [place] [address] 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 [address] [place] [address] annual visit from date of surgery May/Jul 2024 for bilateral TKA and right LIZZ with Karly. documented as of this encounter Visit Diagnoses Not on filedocumented in this encounter Additional Health Concerns Assessment Noted Time A fall risk assessment has been complete d for the patient 02/26/2023 9:45 AM EDT documented as of this encounter Care Teams Forging Press Lever Tender Relationship Specialty Start Date End Date Felicitas Monaco MD PCP - General Family Medicine 06/18/22 07/05/23 documented as of this encounter
--- OUTSIDE RECORDS SUMMARY | 2024-01-13 03:17 | XMS_ITS | Encounter Summary ---
Author Organization Jose Alejandro [facility]olin[facility] Address [address] [place] [address] Care Team Providers Care Ship Washer Name Role Phone Cheo Santoyo Primary Care Provider [phone] Encounter Details Date Type Department Care Team (Late st Contact Info) Description 12/27/2022 Home Visit [facility] Maurice Panchal MD [address] [place] [address] Social History Tobacco Use Types Packs/Day Years [...] Dr. [address] [place] [address] Martell Calderon MD 2144 [facility] [address] [place] [address] TREMORS/ MEDICARE, FOR LIFE 03/28/2024 8:30 AM EDT Office Visit Primary Care - [address] [phone] [place] [address] [place] [phone] AWV 04/06/2024 9:45 AM EST Lab [facility] - [facility] 2084 [facility] [address] [place] [address] CBCMP,CEA,FEST 04/06/2024 10:15 AM EST Office [facility] - [facility] 2084 [facility] [address] [place] [address] Georgi Butterfield MD [address] [place], [place] [phone] 6 MTH FU W/LABS, REV SCAN 04/13/2024 9:30 AM EST Office Visit Surgical Oncology - [facility] 2084 [facility] [address] [place] [address] Delvis Cheek MD 125 [facility] 660 [place] [address] 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 documented as of this encounter Visit Diagnoses Not on filedocumented in this encounter Care Teams Ship Washer Relationship Specialty Start Date End Date Cheo Santoyo DO [address] [place] [phone] PCP - General Family Medicine 07/06/23 documented as of this encounter
--- OUTSIDE RECORDS SUMMARY | 2024-01-13 03:17 | XMS_ITS | Encounter Summary ---
Author Organization [facility] Address [address] [place] [address] Care Team Providers Care Box Turner Name Role Phone Felicitas Monaco MD Primary Care Provider [phone] Reason for Visit * Auth/Cert (Routine) Specialty Diagnoses / Procedures Referred By Rachid jimenez Referred To Contact Diagnoses Primary osteoarthritis of right knee Primary osteoarthritis of right knee [M17.11] Procedures MN ARTHRP KNE CONDYLE&PLATU MEDIAL&LAT COMPARTMENTS RIGHT TOTAL KNEE ARTHROPLASTY, ROBOTIC Maurice Panchal MD [facility] [address] [address] Referral ID Status Reason Start Date Expiration Date Visits Re quested Visits Authorized [id number] 1 1 Encounter Details Date Type Department Care Team (Late st Contact Info) Description 03/17/2023 9:16 AM EDT Anesthesia Event RMP SURGERY 3500 [facility] 17 [place], [place] [id number] René Quintero MD [address] [address] Grant Lopez AA [address] [address] Anesthesia Record Procedure Summary Procedure Name Responsible Anesthesiologist Anesthesia Start Time Anesthesia Stop Time RIGHT TOTAL KNEE ARTHROPLASTY, ROBOTIC (Right: Knee) René Quintero MD 03/17/23 0916 03/17/23 1039 Events Date Time Event Comment 03/17/2023 0916 An Start Location: {AN S tart Location:[id number]} 0916 An Start Data 0916 Case on Time Start? First ca se of the day? No On Time Start? N/A If No, Delay due to: {MH AN CASE ON TIME:[id number]} 0922 Block Placed 0924 Anesthesia Ready 30 [...] Dr. [address] [place] [address] Martell Calderon MD [address] [facility] [address] [place] [address] TREMORS/ MEDICARE, FOR LIFE 03/28/2024 8:30 AM EDT Office Visit Primary Care - [address] [address] Cheo Santoyo DO [address] [place] [phone] AWV 04/06/2024 9:45 AM EST Lab [facility] - [facility] [address] [facility] [address] [place] [phone] CBCMP,CEA,FEST 04/06/2024 10:15 AM EST Office Visit [facility] - [facility] [address] [facility] [address] [place] [address] Georgi Butterfield MD [address] [place], [place] [phone] 6 MTH FU W/LABS, REV SCAN 04/13/2024 9:30 AM EST Office Visit Surgical Oncology - [facility] [address] [facility] [address] [place] [phone] Delvis Cheek MD 125 [facility] 660 [place] [address] 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 [address] [place] [address] Karly Bautista PA [address] [place] [address] annual visit from date of [...] Reason for block: primary anesthetic Staffing Performed: resident/DEPALLETIZER OPERATOR Anesthesiologist: René Quintero MD Resident/DEPALLETIZER OPERATOR: Grant Lopez AA Performed by: Grant [...] Carlos MD - 03/17/2023 8:25 AM EDT Eren Carlos MD ? 03/17/2023 ??8:38 AM Peripheral [...] 100 mL IVPB (mini-bag) 2,000 mg, IntraVENous, COMMERCIAL PROPERTY MANAGER TO O.R., 1 dose, On Wed03/17/23 [...] at 400 mL/hr, Administer over 15 Minutes, COMMERCIAL PROPERTY MANAGER TO O.R., On Wed03/17/23 at 0800, [...] documented as of this encounter Care Teams Box Turner Relationship Specialty Start Date End Date Felicitas Monaco MD PCP - General Family Medicine 06/18/22 07/05/23 documented as of this encounter
--- OUTSIDE RECORDS SUMMARY | 2024-01-13 03:17 | XMS_ITS | Encounter Summary ---
Author Organization Jose Alejandro Raymundolinnea [facility] Address [address] [place] [address] Care Team Providers Care Program Director Scouting Name Role Phone Felicitas Monaco MD Primary Care Provider [phone] Reason for Visit * Reason Comments Rash 2 WEEKS AGO was anne mariejoe doyle pt think its poison manuel, on face and now its on left arm red spots upper and lower arm Encounter Details Date Type Department Care Team (Late st Contact Info) Description 02/27/2023 8:10 AM EDT Office Visit Express Care - [address] [place] [address] Rosa Maria Reveles APRN - TE[employer]ER ADULT EDUCATION [address] [place] [address] Rhus dermatitis (Primary Dx) Social History Tobacco [...] bundle branch block (LBBB) no longer sees hot plate plywood press feeder, states stress and testing was completed and hot plate plywood press feeder signed off Post-operative nausea and vomiting Sleep apnea Spinal stenosis Past Surgical History: Procedure Laterality Date BACK SURGERY 02/05/1986 laminectomy, discectomy CERVICAL DISCECTOMY 04/18/2007 , cervical fusion 2012 HAND CARPECTOMY Left 2021 HAND SURGERY Right 2001 debby luanr repair HEMICOLECTOMY 2020 HIP SURGERY Right 06/18/2022 INTRA ARTICULAR HIP RIGHT HIP performed by Martinez Guthrie MD at [facility] PAIN MANAGEMENT JOINT REPLACEMENT Right 2011 shoulder KIDNEY STONE SURGERY 2009 basket removal KNEE ARTHROSCOPY Left 10/13/2021 multiple knee scopes right and left 1997 thru 2021 SHOULDER SURGERY Right 2010 2011 right hemiarthroplasty SUBTOTAL COLECTOMY 2019 R. Hemicolectomy TOTAL KNEE ARTHROPLASTY Left 12/21/2022 LEFT TOTAL KNEE ARTHROPLASTY, ROBOTIC performed by Maurice Panchal MD at [facility] MAIN OR UPPER GASTROINTESTINAL ENDOSCOPY 2019 [...] baths and showers. May continue to apply udaa-xom-nsaqxar anti-itch remedies. Follow-up for any new or worsening symptoms. Patient verbalized understanding and agreement plan of care. GLENN Rossi NP documented in this encounter Plan of Treatment Upcoming Encounters Date Type Department Care Team (Late st Contact Info) Description 03/24/2024 9:00 AM EDT Office Visit Neurology - [facility] 2144 [facility] [address] [place] [address] Martell Calderon MD 2144 [facility] [address] [place] [address] TREMORS/ MEDICARE, FOR LIFE 03/28/2024 8:30 AM EDT Office Visit Primary Care - [address] [address] [place] [address] [place] [phone] AWV 04/06/2024 9:45 AM EST Lab [facility] 2084 [facility] [address] [place] [address] CBCMP,CEA,FEST 04/06/2024 10:15 AM EST Office Visit [facility] - [facility] 2084 [facility] [address] [place] [address] Georgi Butterfield MD [address] [place] [address] 6 MTH FU W/LABS, REV SCAN 04/13/2024 9:30 AM EST Office Visit Surgical Oncology - [facility] [address] [facility] [address] [place] [phone] Delvis Cheek MD [address] [place] [address] 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
--- OUTSIDE RECORDS SUMMARY | 2024-01-13 03:17 | XMS_ITS | Encounter Summary ---
Author Organization Jose Alejandro Raymundolinnea [facility] Address [address] [place] [address] Care Team Providers Care Electric Stove Mechanic Name Role Phone Felicitas Monaco MD Primary Care Provider [phone] Reason for Visit * Auth/Cert (Routine) Specialty Diagnoses / Procedures Referred By Rachid jimenez Referred To Contact Diagnoses Primary osteoarthritis of right knee Primary osteoarthritis of right knee [M17.11] Procedures AK ARTHRP KNE CONDYLE&PLATU MEDIAL&LAT COMPARTMENTS RIGHT TOTAL KNEE ARTHROPLASTY, ROBOTIC Maurice Panchal MD [address] [address] Referral ID Status Reason Start Date Expiration Date Visits Re quested Visits Authorized [id number] 1 1 Encounter Details Date Type Department Care Team (Latest Contact Info) Description 03/17/2023 7:29 AM EDT - 03/18/2023 1:26 PM EDT Hospital Encounter RMP 3 [facility]TH A U [address] [place] [address] Maurice Panchal MD [address] [address] S/P total knee arthroplasty, right (Primary Dx) [...] - please call Dr. Panchal's office at [phone] AQUACEL DRESSING Aquacel?? Ag dressing is a [...] dressing No dressing required FOR TOTAL KNEES: Woden will be removed by home health 10-14 [...] EMPTY when it is flat with an [employer] core center remaining inside. To remove catheter: [...] NUMBERS - 24 HOUR patient nursing hotline: [phone] Call your doctor if you have: A [...] 10 to 30 times each hour. ?? [phone] [employer]. All rights reserved. This information is not [...] when you can stop using them. ?? [phone] [employer]. All rights reserved. This information is not [...] about your recovery or activities. ?? [employer]. All rights reserved. This information is not [...] your leg to the starting point. ?? 5624-7786 [employer]. All rights reserved. This information is not [...] your leg to the starting point. ?? [phone] [employer]. All rights reserved. This information is not intended as a substitute for professional medical care. Always follow your healthcare professional's instructions. * Attachments The following attachments cannot be sent through Care Everywhere. * acetaminophen (oral) (Slovak) * aspirin (oral) (Slovak) * celecoxib (Slovak) * docusate (oral/rectal) (Slovak) * Constipation (Slovak) * DVT (Deep Vein Thrombosis) (Slovak) * Pulmonary Embolism (Slovak) documented in this encounter Medications at Time [...] this encounter Progress Notes * Chrissy Mcdonnell, RADIOLOGY TECHNOLOGIST - 03/18/2023 1:26 PM EDT Images from the original note were not included. Acute Care Physical Therapy Treatment Note Observation (RADIOLOGY TECHNOLOGIST/PT Visit Days : 2) Time In: 911 [...] Within Normal Limits Orientation Level: Oriented X4 [facility]?6 Clicks?? Basic Mobility Inpatient Short Form [...] 3-5 steps with a railing?: A Little [facility] Inpatient Mobility Raw Score : 22 [facility] Inpatient T-Scale Score : 53.28 [...] length Distance: 200 FT Therapeutic Exercise (CPT 34705) (8 minutes) Exercise Treatment: PERFORMED HEELSLIDES FOR ROM X 5 REPS; REVIEWED ANKLE PUMPS, QUAD SETS AND GLUTEAL SETS To Improve:activity tolerance, AROM, strength, and mobility Gait Training (20 Minutes) CPT 36239: Gait training for 200 feet utilizing Gait [...] UNDERSTANDING OF STG 3 Short Term Goals Assisted Goals Time Frame for Short Term Goals: [...] Homemaking Assistance: Independent Homemaking Responsibilities: Yes Active Barrel Lathe Operator Inside: Yes 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 Safety: Type of Devices: All fall risk precautions in place;Gait belt;Call light within reach;Left in chair;Nurse notified Education: Education Given To: Patient Education Provided: Role of Therapy;ADL Adaptive Strategies;Energy Conservation;Fall Prevention Strategies;Transfer Training Education Method: Demonstration;Verbal Education Outcome: Verbalized understanding;Demonstrated understanding [facility]?6 Clicks?? Basic ADL Inpatient Short Form [...] 12:23 PM EDT Orthopedic Progress Note Date:03/18/2023 Room:[address] [place] [address] Patient Name:Martínez Toribio Date of :1955 Age:68 [...] included. Acute Care Physical Therapy Evaluation Observation (RADIOLOGY TECHNOLOGIST/PT Visit Days : 1) Time In: 1733 [...] Positioning, Therapeutic activities Goals Short Term Goals Doctor Of Nurse Anesthesia Practice Goals Time Frame for Short Term Goals: [...] EDT Pre Procedure Patient Instructions Procedure Location hospital:[facility] [address], [facility]- If your arrival is scheduled between 6:30a-4:30p: Enter building at Outpatient Services, turn right and [facility] then take stairs or elevator to [...] wear artificial nails and only clear nail gabonese on natural nails. Nails must be trimmed [...] Living Will and/or Medical Durable Power of Jewel Waxer if you have one Bring a list [...] you have any additional questions please contact [phone] To pre-register for your procedure please call [phone] Option 1 For financial questions regarding your procedure at a [facility] facility, please contact [phone] For financial questions regarding anesthesia at a [facility], please contact [phone] For [employer] Patient Portal help please call [phone] documented in this encounter Plan of Treatment Upcoming Encounters Date Type Department Care Team (Late st Contact Info) Description 03/24/2024 9:00 AM EDT Office Visit Neurology - [facility] [address] [facility] [address] [place] [address] Martell Calderon MD 2144 [facility] [address] [place] [address] TREMORS/ MEDICARE, FOR LIFE 03/28/2024 8:30 AM EDT Office Visit Primary Care - [address] [address] [place] [address] [place] [phone] AWV 04/06/2024 9:45 AM EST Lab [facility] - [facility] [address] [facility] [address] [place] [address] CBCMP,CEA,FEST 04/06/2024 10:15 AM EST Office Visit [facility] - [facility] [address] [facility] [address] [place] [address] Georgi Butterfield MD [address] [place] [address] 6 MTH FU W/LABS, REV SCAN 04/13/2024 9:30 AM EST Office Visit Surgical Oncology - [facility] [address] [facility] [address] [place] [address] Delvis Cheek MD 125 [facility] [address] [place] [address] 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 06/19/2024 10:30 AM EST Office Visit Orthopaedics- Les Valencia [address] [facility] [address] [place] [address] Karly Bautista PA [address] [place] [address] annual visit from date of [...] METABOLIC PANEL Routine 03/18/2023 5:08 AM EDT AK ARTHRP KNE CONDYLE&PLATU MEDIAL&LAT COMPARTMENTS 03/17/2023 9:16 AM EDT Primary osteoarthritis of right knee Special Needs Daxa Summers/mg mcarthur POCT GLUCOSE Routine 03/17/2023 8:11 AM EDT documented in this encounter Results * Hemoglobin and Hematocrit (03/18/2023 5:08 AM EDT) Hemoglobin 13.9 13.0 - 17.3 g/dL [facility] Hematocrit 42.4 38.0 - 52.0 % [facility] Blood BLOOD SPECIMEN / Unknown 03/18/2023 5:08 AM EDT 03/18/2023 5:12 AM EDT Karly DALLAS HEMATOLOGY ORDERABLE [facility] [address] [place] [address] * (ABNORMAL) Basic Metabolic Panel (03/18/2023 5:08 [...] Karly DALLAS CHEMISTRY ORDERABLES Performing Organization Address [facility] Co de Phone Number [place] [phone] [facility] [address] [place] [address] * POCT Glucose (03/17/2023 8:11 AM EDT) POC Glucose 108.0 65.0 - 110.0 mg/dL [facility] Comment:MP - AMB PACU Blood 03/17/2023 8:11 AM EDT 03/17/2023 8:11 AM EDT Maurice Panchal MD POINT OF CARE TEST O RDERABLES Performing Organization Address [facility] Co de Phone Number [facility] [address] [place] [address] documented in this encounter Visit Diagnoses Diagnosis [...] Assess pain q4hrs May increase/decrease 2 ml/hr [id number] for adequate pain control pain up to max of 14 ml/hr Decrease infusion rate to 4 ml/hr [id number] prior to physical therapy or ambulation for [...] mL IVPB (mini-bag) (COMPLETED) 2,000 mg, IntraVENous, CLOTH PRESSER TO O.R., 1 dose, On Wed03/17/23 at [...] at 400 mL/hr, Administer over 15 Minutes, CLOTH PRESSER TO O.R., On Wed03/17/23 at 0800, For [...] Assess pain q4hrs May increase/decrease 2 ml/hr [id number] for adequate pain control pain up to max of 14 ml/hr Decrease infusion rate to 4 ml/hr [id number] prior to physical therapy or ambulation for [...] documented as of this encounter Care Teams Electric Stove Mechanic Relationship Specialty Start Date End Date Felicitas Monaco MD PCP - General Family Medicine 06/18/22 07/05/23 documented as of this encounter
--- OUTSIDE RECORDS SUMMARY | 2024-01-13 03:17 | XMS_ITS | Encounter Summary ---
Author Organization Jose Alejandro liriano [facility] Address [address] [place] [address] Care Team Providers Care Drier And Grinder Tender Name Role Phone Felicitas Monaco MD Primary Care Provider [phone] Encounter Details Date Type Department Care Team (Late st Contact Info) Description 01/22/2023 10:10 AM EDT Ancillary Procedure Orthopaedics - [address] [address] Social History Tobacco Use Types [...] 9:00 AM EDT Office Visit Neurology - [facility] [address] [facility] [address] [place] [address] Martell Calderon MD [address] [facility] [address] [place] [address] TREMORS/ MEDICARE, FOR LIFE 03/28/2024 8:30 AM EDT Office Visit Primary Care - [address] [address] Cheo Santoyo DO [address] [place] [phone] AWV 04/06/2024 9:45 AM EST Lab [place] [facility] - [facility] 2084 [facility] [address] [place] [address] CBCMP,CEA,FEST 04/06/2024 10:15 AM EST Office Visit [place] [facility] - [facility] [address] [facility] [address] [place] [address] Georgi Butterfield MD 3510 [facility] [address] [place] [address] 6 MTH FU W/LABS, REV SCAN 04/13/2024 9:30 AM EST Office Visit Surgical Oncology - [facility] 2084 [facility] [address] [place] [address] Delvis Cheek MD 125 [facility] [address] [place] [phone] 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 06/19/2024 10:30 AM EST Office Visit Orthopaedics- Les Valencia 615 [facility] [address] [place] [address] Karly Bautista, BURT [address] [place] [address] annual visit from date of [...] without any issues or concerns Marquise Moses SALES COMMISSIONS ANALYST - BUSINESS OBJECTS IMG DIAGNOST IC IMAGING ORDERABLES documented in this encounter Visit Diagnoses Not on filedocumented in this encounter Additional Health Concerns Assessment Noted Time A fall risk assessment has been complete d for the patient 01/19/2023 2:33 PM EDT documented as of this encounter Care Teams Drier And Grinder Tender Relationship Specialty Start Date End Date Felicitas Monaco MD PCP - General Family Medicine 06/18/22 07/05/23 documented as of this encounter
--- OUTSIDE RECORDS SUMMARY | 2024-01-13 03:17 | XMS_ITS | Encounter Summary ---
Author Organization Jose Alejandro Raymundolinnea [facility] Address [address] [place] [address] Care Team Providers Care Mica Laminating Machine Feeder Name Role Phone Felicitas Monaco MD Primary Care Provider [phone] Reason for Visit * Auth/Cert (Routine) Specialty Diagnoses / Procedures Referred By Rachid jimenez Referred To Contact Diagnoses Primary osteoarthritis of left knee Primary osteoarthritis of left knee [M17.12] Procedures [place] ARTHRP KNE CONDYLE&PLATU MEDIAL&LAT COMPARTMENTS LEFT TOTAL KNEE ARTHROPLASTY, ROBOTIC Maurice Panchal MD [facility] [address] [address] Referral ID Status Reason Start Date Expiration Date Visits Re quested Visits Authorized [id number] 1 1 Encounter Details Date Type Department Care Team (Late st Contact Info) Description 12/21/2022 7:25 AM EDT Anesthesia Event [facility] SURGERY 3500 [facility] [address] [place] [address] Eren Carlos MD [address] [address] Ritchie Hess MD [address] [phone] Anesthesia Record Procedure Summary Procedure Name Responsible Anesthesiologist Anesthesia Start Time Anesthesia Stop Time LEFT TOTAL KNEE ARTHROPLASTY, ROBOTIC (Left: Knee) Eren Carlos MD 12/21/22 0725 12/21/22 0846 Events Date Time Event Comment 12/21/2022 0715 0725 An Start Location: {AN S tart Location:[id number]} 0725 An Start Data 0730 Block Placed [...] Visit Neurology - [facility] [address] [facility] [address] [place] [address] Martell Calderon MD 2145 [facility] [address] [place] [address] TREMORS/ MEDICARE, FOR LIFE 03/28/2024 8:30 AM EDT Office Visit Primary Care - [address] [address] Cheo Santoyo DO [address] [place] [phone] AWV 04/06/2024 9:45 AM EST Lab [facility] - [facility] [address] [facility] [address] [place] [phone] CBCMP,CEA,FEST 04/06/2024 10:15 AM EST Office Visit [place] [facility] - [facility] [address] [facility] [address] [place] [phone] Georgi Butterfield MD [address] [place], [place] [address] 6 MTH FU W/LABS, REV SCAN 04/13/2024 9:30 AM EST Office Visit Surgical Oncology - [facility] [address] [facility] [address] [place] [phone] Delvis Cheek MD 125 [facility] [address] [place] [address] 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 To be administered by anesthesia staff after induction of anesthesia following antibiotic but prior to incision, Pre-op (day of surgery) New Bag 12/21/2022 7:33 AM EDT 2,000 m g documented in this encounter Care Teams Mica Laminating Machine Feeder Relationship Specialty Start Date End Date Felicitas Monaco MD PCP - General Family Medicine 06/18/22 07/05/23 documented as of this encounter
--- OUTSIDE RECORDS SUMMARY | 2024-01-13 03:17 | XMS_ITS | Encounter Summary ---
Author Organization Jose Alejandro Raymundolinnea [facility] Address [address] [place] [address] Care Team Providers Care Sharepoint Solutions Architect Name Role Phone Felicitas Monaco MD Primary Care Provider [phone] Reason for Visit * Reason Onset Date Comments Other 01/27/2023 Encounter Details Date Type Department Care Team (Late st Contact Info) Description 01/27/2023 Telephone Primary Care - [address] [place] [address] Felicitas Monaco MD [address] [place] [address] Other Social History Tobacco Use Types [...] [facility] [address] [facility] [address] [place] [address] Martell Calderon MD 2144 [facility] [address] [place] [address] TREMORS/ MEDICARE, FOR LIFE 03/28/2024 8:30 AM EDT Office Visit Primary Care - [address] [address] [place] [address] [place] [phone] AWV 04/06/2024 9:45 AM EST Lab [place] [facility] - [facility] [address] [facility] [address] [place] [address] CBCMP,CEA,FEST 04/06/2024 10:15 AM EST Office Visit [place] [facility] - [facility] [address] [facility] [address] [place] [address] Georgi Butterfield MD [address] [place] [address] 6 MTH FU W/LABS, REV SCAN 04/13/2024 9:30 AM EST Office Visit Surgical Oncology - 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 documented as of this encounter Visit Diagnoses Not on filedocumented in this encounter Additional Health Concerns Assessment Noted Time A fall risk assessment has been complete d for the patient 01/19/2023 2:33 PM EDT documented as of this encounter Care Teams Sharepoint Solutions Architect Relationship Specialty Start Date End Date Felicitas Monaco MD PCP - General Family Medicine 06/18/22 07/05/23 documented as of this encounter
--- OUTSIDE RECORDS SUMMARY | 2024-01-13 03:17 | XMS_ITS | Encounter Summary ---
Author Organization Jose Alejandro Raymundolinnea [facility] Address [address] [place] [address] Care Team Providers Care Quantitative Associate Name Role Phone Felicitas Monaco MD Primary Care Provider [phone] Reason for Visit * Reason Onset Date Comments Medication Refill 02/12/2023 Encounter Details Date Type Department Care Team (Late st Contact Info) Description 02/12/2023 Refill Primary Care - [address] [facility] [address] [place] [address] Nadia Beasley, PA-C [address] [facility] [address] [place] [address] Medication Refill Social History Tobacco Use Types [...] 9:00 AM EDT Office Visit Neurology - [facility] [address] [facility] [address] [place] [address] Martell Calderon MD 2144 [facility] [address] [place], [place] [address] TREMORS/ MEDICARE, FOR LIFE 03/28/2024 8:30 AM EDT Office Visit Primary Care - [address] [phone] Cheo Santoyo, [address] [place] [phone] AWV 04/06/2024 9:45 AM EST Lab [place] [facility] - [facility] 2084 [facility] [address] [place] [address] CBCMP,CEA,FEST 04/06/2024 10:15 AM EST Office Visit [place] [facility] - [facility] [address] [facility] [address] [place] [address] Georgi Butterfield MD [address] [place] [address] 6 MTH FU W/LABS, REV SCAN 04/13/2024 9:30 AM EST Office Visit Surgical Oncology - [facility] [address] [facility] [address] [place] [address] Delvis Cheek MD 125 [facility] [address] [place] [address] 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 documented as of this encounter Visit Diagnoses Not on filedocumented in this encounter Additional Health Concerns Assessment Noted Time A fall risk assessment has been complete d for the patient 01/19/2023 2:33 PM EDT documented as of this encounter Care Teams Quantitative Associate Relationship Specialty Start Date End Date Felicitas Monaco MD PCP - General Family Medicine 06/18/22 07/05/23 documented as of this encounter
--- OUTSIDE RECORDS SUMMARY | 2024-01-13 03:17 | XMS_ITS | Encounter Summary ---
Author Organization Jose Alejandro Raymundolinnea [facility] Address [address] [place] [address] Care Team Providers Care General Service Officer Name Role Phone Felicitas Monaco MD Primary Care Provider [phone] Encounter Details Date Type Department Care Team (Late st Contact Info) Description 03/04/2023 [facility] - [facility] [address] [facility] [address] [place] [address] Georgi Butterfield MD [address] [place] [address] Social History Tobacco Use Types [...] AM EDT Office Visit Neurology - [facility] [address] [facility] [address] [place] [address] Martell Calderon MD 2144 [facility] [address] [place] [address] TREMORS/ MEDICARE, FOR LIFE 03/28/2024 8:30 AM EDT Office Visit Primary Care - [address] [phone] Cheo Santoyo DO [address] [place] [phone] AWV 04/06/2024 9:45 AM EST Lab [place] [facility] - [facility] 20[address] [facility] [address] [place] [address] CBCMP,CEA,FEST 04/06/2024 10:15 AM EST Office Visit [place] [facility] - [facility] 20[address] [facility] [address] [place] [address] Georgi Butterfield MD [address] [place] [address] 6 MTH FU W/LABS, REV SCAN 04/13/2024 9:30 AM EST Office Visit Surgical Oncology - [facility] 2084 [facility] [address] [place] [address] Delvis Cheek MD 125 [facility] [address] [place] [address] 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 documented as of this encounter Visit Diagnoses Not on filedocumented in this encounter Additional Health Concerns Assessment Noted Time A fall risk assessment has been complete d for the patient 02/26/2023 9:45 AM EDT documented as of this encounter Care Teams General Service Officer Relationship Specialty Start Date End Date Felicitas Monaco MD PCP - General Family Medicine 06/18/22 07/05/23 documented as of this encounter
--- OUTSIDE RECORDS SUMMARY | 2024-01-13 03:17 | XMS_ITS | Encounter Summary ---
Author Organization Jose Alejandro Pantoja [facility] Address [address] [place] [address] Care Team Providers Care Clinical Quality Manager Name Role Phone Felicitas Monaco MD Primary Care Provider [phone] Encounter Details Date Type Department Care Team (Late st Contact Info) Description 03/04/2023 Orders Only Orthopaedics - [place] [address] [place] [address] [phone] Maurice Panchal MD [address] [address] Preop testing Social History Tobacco Use Types [...] Neurology - [facility] [place] [address] [facility] [address] [place] [address] Martell Calderon MD 2144 [facility] [address] [place] [address] TREMORS/ MEDICARE, FOR LIFE 03/28/2024 8:30 AM EDT Office Visit Primary Care - [address] [phone] Cheo Santoyo DO [address] [place] [address] [phone] AWV 04/06/2024 9:45 AM EST Lab [facility] - [facility] [place] [address] [facility] [address] [place] [address] CBCMP,CEA,FEST 04/06/2024 10:15 AM EST Office Visit [facility] - [facility] [place] [address] [facility] [address] [place] [address] Georgi Butterfield MD [address] [place] [address] 6 MTH FU W/LABS, REV SCAN 04/13/2024 9:30 AM EST Office Visit Surgical Oncology - [facility] [place] [address] [facility] [address] [place] [phone] Delvis Cheek MD 125 [facility][Note 3] [address] [place] [address] 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 06/19/2024 10:30 AM EST Office Visit Orthopaedics- [place] [address] [facility] 100 [place] [address] Karly Bautista, BURT [address] [facility] 301 [place] [address] annual visit from date of [...] MD HEMATOLOGY ORDERABLE S [facility] 8408 [facility], [place] [address] * (ABNORMAL) Comprehensive Metabolic Panel (03/04/2023 1:03 [...] PM EDT Maurice Panchal MD CHEMISTRY ORDERABLES [facility] [place] [id number] [facility] [place] [address] documented in this encounter Visit Diagnoses Diagnosis Preop testing Preoperative examination, unspecified documented in this encounter Additional Health Concerns Assessment Noted Time A fall risk assessment has been complete d for the patient 02/26/2023 9:45 AM EDT documented as of this encounter Care Teams Clinical Quality Manager Relationship Specialty Start Date End Date Felicitas Monaco MD PCP - General Family Medicine 06/18/22 07/05/23 documented as of this encounter
--- OUTSIDE RECORDS SUMMARY | 2024-01-13 03:17 | XMS_ITS | Encounter Summary ---
Author Organization Jose Alejandro Ray[facility]olinnea [facility] Address [address] [place] [address] Care Team Providers Care Utility System Operator Name Role Phone Felicitas Monaco MD Primary Care Provider [phone] Reason for Visit * Reason Onset Date Comments Medication Refill 02/12/2023 Encounter Details Date Type Department Care Team (Late st Contact Info) Description 02/12/2023 Refill Primary Care - [address] [place] [address] Felicitas Monaco MD [address] [place] [phone] Medication Refill Social History Tobacco Use [...] AM EDT Office Visit Neurology - [facility] [address] [facility] [address] [place] [phone] Martell Calderon MD 2144 [facility] [address] [place] [address] TREMORS/ MEDICARE, FOR LIFE 03/28/2024 8:30 AM EDT Office Visit Primary Care - [address] [address] Cheo Santoyo DO [address] [place] [address] AWV 04/06/2024 9:45 AM EST Lab [facility] - [facility] 2084 [facility] [address] [place] [address] CBCMP,CEA,FEST 04/06/2024 10:15 AM EST Office Visit [place] - [facility] 2084 [facility] [address] [place] [address] Georgi Butterfield MD [address] [place] [address] 6 MTH FU W/LABS, REV SCAN 04/13/2024 9:30 AM EST Office Visit Surgical Oncology - [facility] 2084 [facility] [address] [place] [address] Delvis Cheek MD 125 [facility] 660 [place] [address] 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 100 [place] [phone] Karly Bautista, PA [address] [place] [facility] 301 [place] [phone] annual visit from date of surgery May/Jul 2024 for bilateral TKA and right LIZZ with Karly. documented as of this encounter Visit Diagnoses Not on filedocumented in this encounter Additional Health Concerns Assessment Noted Time A fall risk assessment has been complete d for the patient 01/19/2023 2:33 PM EDT documented as of this encounter Care Teams Utility System Operator Relationship Specialty Start Date End Date Felicitas Monaco MD PCP - General Family Medicine 06/18/22 07/05/23 documented as of this encounter
--- OUTSIDE RECORDS SUMMARY | 2024-01-13 03:18 | XMS_ITS | Encounter Summary ---
Author Organization Jose Alejandro Kit [facility]ushing[facility]sol [facility] Address [address] [place] [address] Care Team Providers Care Materials Supervisor Name Role Phone Felicitas Monaco MD Primary Care Provider [phone] Encounter Details Date Type Department Care Team (Late st Contact Info) Description 07/14/2022 Orders Only [place] [facility] - [facility] [address] [facility] [address] [address] [place] [address] Georgi Butterfield MD [address] [place] [address] Carcinoma of ascending colon (HCC) [...] Visit Neurology - [facility] [address] [facility] [address] [place] [address] Martell Calderon MD 2144 [facility] [address] [place] [address] TREMORS/ MEDICARE, FOR LIFE 03/28/2024 8:30 AM EDT Office Visit Primary Care - [address] [address] Cheo Santoyo, 1112 [place] [address] AWV 04/06/2024 9:45 AM EST Lab [place] [facility] - [facility] 2084 [facility] [address] [place] [address] CBCMP,CEA,FEST 04/06/2024 10:15 AM EST Office Visit [place] [facility] - [facility] 2084 [facility] [address] [place] [address] Georgi Butterfield MD 3510 [facility] [address] [place], [place] [phone] 6 MTH FU W/LABS, REV SCAN 04/13/2024 9:30 AM EST Office Visit Surgical Oncology - [facility] 20[address] [facility] [address] [place] [address] Delvis Cheek MD 125 [facility] [address] [place] [address] 1 YEAR F/U ADENOCARCINOMA OF THE CECUM 06/19/2024 10:30 AM EST Office Visit Orthopaedics- Les Valencia [address] [facility] [address] [place] [address] Karly Bautista, BURT [address] [facility] 301 [place] [address] annual visit from date of [...] colon documented in this encounter Care Teams Materials Supervisor Relationship Specialty Start Date End Date Felicitas Monaco MD PCP - General Family Medicine 06/18/22 07/05/23 documented as of this encounter
--- OUTSIDE RECORDS SUMMARY | 2024-01-13 03:18 | XMS_ITS | Encounter Summary ---
Author Organization Jose Alejandro Kit [facility] Address [address] [place] [address] Care Team Providers Care Ham Boner Name Role Phone Felicitas Monaco MD Primary Care Provider [phone] Reason for Referral * Surgical (Routine) - Closed Specialty Diagnoses / Procedures Referred By Rachid jimenez Referred To Contact Orthopedic Surgery Diagnoses Primary osteoarthritis of left knee Procedures DC ARTHRP KNE CONDYLE&PLATU MEDIAL&LAT COMPARTMENTS Maurice Panchal MD [address] [place] [address] Maurice Panchal MD [address] [place] [address] Referral ID Status Reason Start Date Expiration Date V isits Requested Visits Authorized [id number] Closed Insurance 09/29/2022 09/29/2023 1 1 [place] [address] M17.11 DATE [facility] Maurice Panchal MD, Orthopaedics MPH [address] [address] Comments The patient can be scheduled with any member of the group, including the provider with the first available appointments. * Imaging (Routine) - Closed Specialty Diagnoses / Procedures Referred By Rachid jimenez Referred To Contact Radiology Diagnoses Acquired deformity of left knee Procedures CT KNEE LEFT WO CONTRAST Bonny Mcarthur PA [address] [place] [address] Referral ID Status Reason Start Date Expiration Date Visits Re quested Visits Authorized [id number] Closed 09/29/2022 09/29/2023 1 1 Reason for Visit * Reason Onset Date Comments Surgery Scheduling 09/28/2022 Encounter Details Date Type Department Care Team ([facility] Contact Info) Description 09/28/2022 Telephone Orthopaedics - Vijaya Guerra Dr[address] 594 [facility] [address] [place] [phone] Bonny Mcarthur PA [address] [facility] [address] [place] [address] Surgery Scheduling Social History Tobacco Use Types [...] Upcoming Encounters Date Type Department Care Team ([facility] Contact Info) Description 03/24/2024 9:00 AM EDT Office Visit Neurology - [address]an [address] Dr. [address] [place] [phone] Martell Calderon MD 2145 [facility] [address] [place] [address] TREMORS/ MEDICARE, FOR LIFE 03/28/2024 8:30 AM EDT Office Visit Primary Care - [address] [phone] Cheo Santoyo DO [address] [place] [phone] AWV 04/06/2024 9:45 AM EST Lab [place] [facility] - [facility] [address]84 [facility] [address] [place] [phone] CBCMP,CEA,FEST 04/06/2024 10:15 AM EST Office Visit [place] [facility] - [facility] 2084 [facility] [address] [place] [address] Georgi Butterfield MD [address] [place] [address] 6 MTH FU W/LABS, REV SCAN 04/13/2024 9:30 AM EST Office Visit Surgical Oncology - [facility] 2084 [facility] [address] [place] [address] Delvis Cheek MD 125 [facility] 660 [place] [address] 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 [address] [place] [address] Karly Bautista, BURT 180 [facility] [address] [place] [address] annual visit from date of [...] feel free to call me directly using [employer]. This note was created using voice recognition software and may contain typographic errors missed during final review. The intent is to have a complete and accurate medical record. ?As a valued partner in this safety effort, if you have noted factual errors, please complete the Health Information Amendment/Correct Form or call the [facility] Health Information Management Office at [phone]. Narrative 11/12/2022 3:06 PM EDT Indication: eval joint deformity for surgical planning - [place] Hugo protocol M21.962,Unspecified acquired deformity of left [...] feel free to call me directly using [employer]. This note was created using voice recognition software and may contain typographic errors missed during final review. The intent is to have acomplete and accurate medical record. ?As a valued partner in this safety effort,if you have noted factual errors, please complete the Health Information Amendment/Correct Form or call the [facility] Health Information ManagementOffice at [phone]. Bonny DALLAS IMG CT ORDERABLES documented in this encounter Visit Diagnoses Diagnosis Preoperative testing- Primary Preoperative examination, unspecified Acquired deformity of left knee Primary osteoarthritis of left knee Primary localized osteoarthrosis, lower leg Acquired deformity of left knee documented in this encounter Care Teams Ham Boner Relationship Specialty Start Date End Date Felicitas Monaco MD PCP - General Family Medicine 06/18/22 07/05/23 documented as of this encounter
--- OUTSIDE RECORDS SUMMARY | 2024-01-13 03:18 | XMS_ITS | Encounter Summary ---
Author Organization [facility] Address [address] [place] [address] Care Team Providers Care Bulb Brander Name Role Phone Felicitas Monaco MD Primary Care Provider [phone] Encounter Details Date Type Department Care Team (Late st Contact Info) Description 09/01/2022 Abstract [place] [facility] - [facility]. [address] [facility] [address] [place] [phone] Georgi Butterfield MD [address] [place] [address] Social History Tobacco Use Types Packs/Day Years [...] Dr. [address] [place] [phone] Martell Calderon MD 2144 Winston Jacobsen [facility] [address] [place], [place] [phone] TREMORS/ MEDICARE, FOR LIFE 03/28/2024 8:30 AM EDT Office Visit Primary Care - [address] [phone] Cheo Santoyo DO 1112 [place] [address] AWV 04/06/2024 9:45 AM EST Lab [place] [facility] - [facility] [place] 2084 [facility] [address] [place] [address] CBCMP,CEA,FEST 04/06/2024 10:15 AM EST Office Visit [place] [facility] - [facility] [place] 2084 [facility] [address] [place] [address] Georgi Butterfield MD 3510 [facility] [address] [place], [place] [address] 6 MTH FU W/LABS, REV SCAN 04/13/2024 9:30 AM EST Office Visit Surgical Oncology - [facility] [place] 2084 [facility] [address] [place] [address] Delvis Cheek MD 125 [facility] 660 [place] [address] 1 YEAR F/U ADENOCARCINOMA OF THE CECUM 06/19/2024 10:30 AM EST Office Visit Orthopaedics- Adalberto Valencia [address] [facility] [address] [place] [address] Karly Bautista PA [address] [place] [address] annual visit from date of surgery May/Jul 2024 for bilateral TKA and right LIZZ with Karly. documented as of this encounter Visit Diagnoses Not on filedocumented in this encounter Care Teams Bulb Brander Relationship Specialty Start Date End Date Felicitas Monaco MD PCP - General Family Medicine 06/18/22 07/05/23 documented as of this encounter
--- OUTSIDE RECORDS SUMMARY | 2024-01-13 03:18 | XMS_ITS | Encounter Summary ---
Author Organization [facility] Address [address] [place] [address] Care Team Providers Care Saw Maker Name Role Phone Felicitas Monaco MD Primary Care Provider [phone] Reason for Referral * Surgical (Routine) - Closed Specialty Diagnoses / Procedures Referred By Rachid jimenez Referred To Contact Orthopedic Surgery Diagnoses Primary osteoarthritis of right knee Maurice Panchal MD [address] [place] [address] Maurice Panchal MD [address] [place] [address] Referral ID Status Reason Start Date Expiration Date V isits Requested Visits Authorized [id number] Closed Insurance 11/27/2022 11/27/2023 1 1 [place] [address] M17.11 DATE [facility] Maurice Panchal MD, Orthopaedics MPH [address] [address] Comments The patient can be scheduled with any member of the group, including the provider with the first available appointments. * Imaging (Routine) - Closed Specialty Diagnoses / Procedures Referred By Rachid jimenez Referred To Contact Radiology Diagnoses Knee deformity, acquired, right Procedures CT KNEE RIGHT WO CONTRAST Maurice Panchal MD [address] [place] [address] Referral ID Status Reason Start Date Expiration Date Visits Re quested Visits Authorized [id number] Closed 11/27/2022 11/27/2023 1 1 Encounter Details Date Type Department Care Team (Late Contact Info) Description 11/27/2022 Orders Only Orthopaedics - [place] [address] [address] [place] [phone] Maurice Panchal MD [address] [place] [address] Preop testing (Primary Dx); Knee deformity, acquired, [...] Office Visit Neurology - [facility] 2[address] [facility] [address] [place] [address] Martell Calderon MD 214 [facility] [address] [place] [address] TREMORS/ MEDICARE, FOR LIFE 03/28/2024 8:30 AM EDT Office Visit Primary Care - [address] [phone] Cheo Santoyo DO [address] [place] [phone] AWV 04/06/2024 9:45 AM EST Lab [place] [facility] - [facility] [address] [facility] [address] [place] [address] CBCMP,CEA,FEST 04/06/2024 10:15 AM EST Office Visit [place] [facility] - [facility] [address] [facility] [address] [place] [address] Georgi Butterfield MD [address] [place] [address] 6 MTH FU W/LABS, REV SCAN 04/13/2024 9:30 AM EST Office Visit Surgical Oncology - [facility] [address] [facility] [address] [place] [address] Delvis Cheek MD 125 [facility] 660 [place] [address] 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 [address] [place] [address] Karly Bautista PA [address] [place] [address] annual visit from date of [...] PM EDT Maurice Panchal MD CHEMISTRY ORDERABLES [facility] DELMIS OSORIO [address] [facility], [place] [address] * CBC (03/04/2023 1:03 PM EDT) Pathologist [facility] WBC 6.6 3.8 - 10.6 x10e3/mcL RSF [...] MD HEMATOLOGY ORDERABLE S Performing Organization Address City/State/[facility] Co de Phone Number [facility] [address] [facility] [place] [address] * CT KNEE RIGHT WO CONTRAST (02/10/2023 1:36 PM EDT) Anatomical Region Laterality Modality Thigh, Knee, Leg Computed Tomogr aphy 02/10/2023 4:22 PM EDT Impressions 02/10/2023 4:23 PM EDT Severe tricompartment degenerative change of the knee. Images performed for preoperative planning. Narrative 02/10/2023 4:[address] right knee without contrast: 02/10/23 INDICATION: evaluate joint deformity for surgery with [place] Hugo. COMPARISON: 08/20/2022 TECHNIQUE: Axial CT images [...] right documented in this encounter Care Teams Saw Maker Relationship Specialty Start Date End Date Felicitas Monaco MD PCP - General Family Medicine 06/18/22 07/05/23 documented as of this encounter
--- OUTSIDE RECORDS SUMMARY | 2024-01-13 03:18 | XMS_ITS | Encounter Summary ---
Author Organization Jose Alejandro Kit [facility] Address [address] [place] [address] Care Team Providers Care Social Welfare Administrator Name Role Phone Felicitas Monaco MD Primary Care Provider [phone] Reason for Visit * Reason Onset Date Comments Cancelled Appointment 07/27/2022 Encounter Details Date Type Department Care Team ([facility] Contact Info) Description 07/27/2022 [facility]phone [facility]. [address] [facility] [address] [place] [address] Georgi Butterfield MD [address] [place] [address] Cancelled Appointment Social History Tobacco [...] Neurology - [facility] [address] [facility] [address] [place] [address] Martell Calderon MD 2144 [facility] [address] [place] [address] TREMORS/ MEDICARE, FOR LIFE 03/28/2024 8:30 AM EDT Office Visit Primary Care - [facility] [address] [place] [phone] Cheo Santoyo DO 1112 [place] [address] AWV 04/06/2024 9:45 AM EST Lab [place] [facility] - [facility] [address] [facility] [address] [place] [address] CBCMP,CEA,FEST 04/06/2024 10:15 AM EST Office Visit [place] [facility] - [facility] [address] [facility] [address] [place] [address] Georgi Butterfield MD 3510 [facility] [address] [place] [address] 6 MTH FU W/LABS, REV SCAN 04/13/2024 9:30 AM EST Office Visit Surgical Oncology - [facility] [address] [facility] [address] [place] [address] Delvis Cheek MD [address] [facility] [address] [place] [address] 1 YEAR F/U ADENOCARCINOMA OF THE CECUM 06/19/2024 10:30 AM EST Office Visit Orthopaedics- Adalberto Valencia [address] [facility] [address] [place] [address] Karly Bautista, BURT [address] [facility] [address] [place] [address] annual visit from date of surgery May/Jul 2024 for bilateral TKA and right LIZZ with Karly. documented as of this encounter Visit Diagnoses Not on filedocumented in this encounter Care Teams Social Welfare Administrator Relationship Specialty Start Date End Date Felicitas Monaco MD PCP - General Family Medicine 06/18/22 07/05/23 documented as of this encounter
--- OUTSIDE RECORDS SUMMARY | 2024-01-13 03:18 | XMS_ITS | Encounter Summary ---
Author Organization Jose Alejandro Kit [facility] Address [address] [place] [address] Care Team Providers Care Coreroom Foundry Laborer Name Role Phone Felicitas Monaco MD Primary Care Provider [phone] Encounter Details Date Type Department Care Team (Late st Contact Info) Description 07/24/2022 Orders Only [place] - [facility]. [address] [facility] [address] [place] [address] Georgi Butterfield MD [address] [place] [address] Carcinoma of ascending colon (HCC) [...] AM EDT Office Visit Neu[facility] - [facility] [address] [facility] [address] [place] [address] Martell Calderon MD 2[address] [facility] [address] [place] [address] TREMORS/ MEDICARE, FOR LIFE 03/28/2024 8:30 AM EDT Office Visit Primary Care - [address] [address] Cheo Santoyo, [address] [place] [address] AWV 04/06/2024 9:45 AM EST Lab [facility] - [facility] [address] [facility] [address] [place] [address] CBCMP,CEA,FEST 04/06/2024 10:15 AM EST Office Visit [facility] - [facility] [address] [facility] [address] [place] [address] Georgi Butterfield MD [address] [place] [address] 6 MTH FU W/LABS, REV SCAN 04/13/2024 9:30 AM EST Office Visit Surgical Oncology - [facility] [address] [facility] [address] [place] [address] Delvis Cheek MD 125 [facility] [address] [place] [address] 1 YEAR F/U ADENOCARCINOMA OF THE CECUM 06/19/2024 10:30 AM EST Office Visit Orthopaedics- Adalberto Valencia [address] [facility] [address] [place] [address] Karly Bautista PA [address] [facility] 301 [place] [address] annual visit from date of surgery May/Jul [...] colon documented in this encounter Care Teams Coreroom Foundry Laborer Relationship Specialty Start Date End Date Felicitas Monaco MD PCP - General Family Medicine 06/18/22 07/05/23 documented as of this encounter
--- OUTSIDE RECORDS SUMMARY | 2024-01-13 03:18 | XMS_ITS | Encounter Summary ---
Author Organization Jose Alejandro Kit [employer] Address [address] [place] [address] Care Team Providers Care Farm Consultant Name Role Phone Felicitas Monaco MD Primary Care Provider [phone] Reason for Visit * Reason Comments Back Pain Left side lower back ; mild sciatic pains-radiates down to the left gluteal region. Encounter Details Date Type Department Care Team (Latest Contact Info) Description 07/27/2022 2:30 PM EST Office Visit Physical Medicine & Rehabilitation - Maryan [address], [address] [place] [address] Willa Sandhu, STOPPERER ASSEMBLER - MARKETING CLERK [address] [place] [address] Spinal stenosis of lumbar region with neurogenic [...] this encounter Progress Notes * Willa Sandhu, STOPPERER ASSEMBLER - MARKETING CLERK - 07/27/2022 2:30 PM EST LING 01/22/2020,RE:Pt [...] by primary care provider, prescribed Flexeril and [place] which she has taken with mild relief. [...] HIP performed by Martinez Guthrie MD at [facility] PAIN MANAGEMENT JOINT REPLACEMENT KNEE ARTHROSCOPY Left [...] claudication 2. Sacroiliitis (HCC) Willa Kemp. Edson [facility]- Neurosurgery Nurse Practitioner documented in this encounter Plan of Treatment Upcoming Encounters Date Type Department Care Team (Late st Contact Info) Description 03/24/2024 9:00 AM EDT Office Visit Neurology - [facility] [address] [facility] [address] [place] [address] Martell Calderon MD 2144 [facility] [address] [place] [address] TREMORS/ MEDICARE, FOR LIFE 03/28/2024 8:30 AM EDT Office Visit Primary Care - [address] [phone] Cheo Santoyo, [address] [place] [address] AWV 04/06/2024 9:45 AM EST Lab [facility] - [facility] [address] [facility] [address] [place] [address] CBCMP,CEA,FEST 04/06/2024 10:15 AM EST Office Visit [facility] - [facility] [address] [facility] [address] [place] [address] Georgi Butterfield MD [address] [place] [address] 6 MTH FU W/LABS, REV SCAN 04/13/2024 9:30 AM EST Office Visit Surgical Oncology - [facility] [address] [place] [address] Delvis Cheek MD 125 [facility] [address] [place] [address] 1 YEAR F/U ADENOCARCINOMA OF THE CECUM 06/19/2024 10:30 AM EST Office Visit Orthopaedics- Les Valencia 615 [facility] [address] [place] [address] Karly Bautista, PA [address] [facility] [address] [place] [address] annual visit from date of [...] movement between flexion and extension Willa Sandhu STOPPERER ASSEMBLER - MARKETING CLERK IMG DIAGNOSTI C IMAGING ORDERABLES documented in this encounter Visit Diagnoses Diagnosis Spinal stenosis of lumbar region with neurogenic claudication- Primary Spinal stenosis, lumbar region, with neurogenic claudication Sacroiliitis (HCC) Sacroiliitis, not elsewhere classified Spinal stenosis of lumbar region with neurogenic claudication Spinal stenosis, lumbar region, with neurogenic claudication Sacroiliitis (HCC) Sacroiliitis, not elsewhere classified documented in this encounter Care Teams Farm Consultant Relationship Specialty Start Date End Date Felicitas Monaco MD PCP - General Family Medicine 06/18/22 07/05/23 documented as of this encounter
--- OUTSIDE RECORDS SUMMARY | 2024-01-13 03:18 | XMS_ITS | Encounter Summary ---
Author Organization [facility] Address [address] [place] [address] Care Team Providers Care Pattern Data Operator Name Role Phone Felicitas Monaco MD Primary Care Provider [phone] Encounter Details Date Type Department Care Team (Late st Contact Info) Description 08/19/2022 Telephone Primary Care - [address] [place] [address] Felicitas Monaco MD [address] [place] [address] Social History Tobacco Use Types [...] Dr. [address] [place] [address] Martell Calderon MD [address] [place] [address] TREMORS/ MEDICARE, FOR LIFE 03/28/2024 8:30 AM EDT Office Visit Primary Care - [address] [phone] Cheo Santoyo, DO [address] [place] [address] AWV 04/06/2024 9:45 AM EST Lab [facility] - [facility] [address] [facility] [address] [place] [address] CBCMP,CEA,FEST 04/06/2024 10:15 AM EST Office Visit [facility] - [facility] [address] [facility] [address] [place] [address] Georgi Butterfield MD 3510 [facility] [address] [place], [place] [address] 6 MTH FU W/LABS, REV SCAN 04/13/2024 9:30 AM EST Office Visit Surgical Oncology - [facility] [address] [facility] [address] [place] [address] Delvis Cheek MD 125 [facility] 660 [place] [address] 1 YEAR F/U ADENOCARCINOMA OF THE CECUM 06/19/2024 10:30 AM EST Office Visit Orthopaedics- Les Valencia 615 [facility] [address] [place] [address] Karly Bautista PA [address] [place] [address] annual visit from date of surgery May/Jul 2024 for bilateral TKA and right LIZZ with Karly. documented as of this encounter Visit Diagnoses Not on filedocumented in this encounter Care Teams Pattern Data Operator Relationship Specialty Start Date End Date Felicitas Monaco MD PCP - General Family Medicine 06/18/22 07/05/23 documented as of this encounter
--- OUTSIDE RECORDS SUMMARY | 2024-01-13 03:18 | XMS_ITS | Encounter Summary ---
Author Organization Jose Alejandro Kit [facility] Address [address] [place] [address] Care Team Providers Care Auditing Control Clerk Name Role Phone Felicitas Monaco MD Primary Care Provider [phone] Encounter Details Date Type Department Care Team [...] Dr. [address] [place] [address] Martell Calderon MD [address] [facility] [address] [place] [address] TREMORS/ MEDICARE, FOR LIFE 03/28/2024 8:30 AM EDT Office Visit Primary Care - [facility] [address] [place] [phone] Cheo Santoyo DO [address] [place] [address] AWV 04/06/2024 9:45 AM EST Lab [facility] - [facility] [address] [facility] [address] [place] [address] CBCMP,CEA,FEST 04/06/2024 10:15 AM EST Office Visit [facility] [facility] - [facility] [address] [facility] [address] [place] [address] Georgi Butterfield MD [address] [place], [place] [address] 6 MTH FU W/LABS, REV SCAN 04/13/2024 9:30 AM EST Office Visit Surgical Oncology - [facility] [address] [facility] [address] [place] [address] Delvis Cheek MD 125 [facility] 660 [place] [address] 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 documented as of this encounter Visit Diagnoses Not on filedocumented in this encounter Care Teams Auditing Control Clerk Relationship Specialty Start Date End Date Felicitas Monaco MD PCP - General Family Medicine 06/18/22 2 documented as of this encounter
--- OUTSIDE RECORDS SUMMARY | 2024-01-13 03:18 | XMS_ITS | Encounter Summary ---
Author Organization Jose Alejandro Kit [facility] Address [address] [place] [address] Care Team Providers Care Heel Molder Name Role Phone Felicitas Monaco MD Primary Care Provider [phone] Reason for Visit * Reason Comments Knee Pain Lt knee Encounter Details Date Type Department Care Team (Latest Contact Info) Description 11/12/2022 10:30 AM EDT Office Visit Orthopaedics - [address] [phone] Bonny Mcarthur PA [facility] [address] [address] Bilateral primary osteoarthritis of knee (Primary Dx) [...] X- rays show severe osteoarthritis with near avuh-bz-hfoy appearance of the medial compartment with significant [...] M17.0 Plan: Left total knee arthroplasty using [employer] robotic-assisted technology Patient may proceed with right [...] 4-5 months out of the year in [place] and [facility] Follow Up: 4 weeks after scheduled surgery, sooner if needed documented in this encounter Plan of Treatment Upcoming Encounters Date Type Department Care Team (Late st Contact Info) Description 03/24/2024 9:00 AM EDT Office [facility] [address] [facility] [address] [place] [address] Martell Calderon MD 2144 [facility] [address] [place], [place] [address] TREMORS/ MEDICARE, FOR LIFE 03/28/2024 8:30 AM EDT Office Visit Primary Care - [address] [phone] Cheo Santoyo, [address] [address] AWV 04/06/2024 9:45 AM EST Lab [facility] - [facility] 2084 [facility] [address] [place] [address] CBCMP,CEA,FEST 04/06/2024 10:15 AM EST Office Visit [facility] - [facility] 2084 [facility] [address] [place] [address] Georgi Butterfield MD [address] [place] [address] 6 MTH FU W/LABS, REV SCAN 04/13/2024 9:30 AM EST Office Visit Surgical Oncology - [facility] 5 [facility] [address] [place] [address] Delvis Cheek MD 125 [facility] 660 [place] [address] 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 [address] [place] [address] Karly Bautista, PA 180 [facility] 301 [place] [address] annual visit from date of surgery May/Jul 2024 for bilateral TKA and right LIZZ with Karly. documented as of this encounter Visit Diagnoses Diagnosis Bilateral primary osteoarthritis of knee- Primary documented in this encounter Care Teams Heel Molder Relationship Specialty Start Date End Date Felicitas Monaco MD PCP - General Family Medicine 06/18/22 07/05/23 documented as of this encounter
--- OUTSIDE RECORDS SUMMARY | 2024-01-13 03:18 | XMS_ITS | Encounter Summary ---
Author Organization Jose Alejandro Kit Certali[facility]sol [facility] Address [address] [facility] [place] [address] Care Team Providers Care Electronics Lead Name Role Phone Felicitas Monaco MD Primary Care Provider [phone] Reason for Visit * Reason Comments Follow-up Right knee supartz 3 Encounter Details Date Type Department Care Team (Late st Contact Info) Description 10/27/2022 9:00 AM EDT Office Visit Orthopaedics - Maryan [address] Dr. [address] [place] [address] Dave Lynne Jr., MD [address] [place] [address] Primary osteoarthritis of right knee (Primary Dx) [...] 9:00 AM EDT Office Visit Neurology - [facility] [address] [facility] [address] [place] [address] Martell Calderon MD 214 [facility] [address] [place] [address] TREMORS/ MEDICARE, FOR LIFE 03/28/2024 8:30 AM EDT Office Visit Primary Care - [address] [address] Cheo Santoyo DO 1112 [place] [address] AWV 04/06/2024 9:45 AM EST Lab [facility] - [facility] [address] [facility] [address] [place] [address] CBCMP,CEA,FEST 04/06/2024 10:15 AM EST Office Visit [place] [facility] - [facility] [address] [facility] [address] [place] [address] Georgi Butterfield MD [address] [place] [address] 6 MTH FU W/LABS, REV SCAN 04/13/2024 9:30 AM EST Office Visit Surgical Oncology - [facility] [address] [facility] [address] [place] [address] Delvis Cheek MD 125 [facility] [address] [place] [address] 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
--- OUTSIDE RECORDS SUMMARY | 2024-01-13 03:18 | XMS_ITS | Encounter Summary ---
Author Organization Jose Alejandro Kit [facility] Address [address] [place] [address] Care Team Providers Care Track Laying Equipment Operator Name Role Phone Felicitas Monaco MD Primary Care Provider [phone] Encounter Details Date Type Department Care Team (Late st Contact Info) Description 07/02/2022 Abstract Primary Care - Maryan [address] [place] [address] Felicitas Monaco MD [address] [place] [address] Social History Tobacco Use Types [...] Jacobsen Dr[address] [place] [address] Martell Calderon MD 2144 [facility] [address] [place], [place] [address] TREMORS/ MEDICARE, FOR LIFE 03/28/2024 8:30 AM EDT Office Visit Primary Care - [facility] [address] [place] [address] Cheo Santoyo DO [address]12 [place] [address] AWV 04/06/2024 9:45 AM EST Lab [place] [facility] - [facility] 20[address] [facility] [address] [place] [address] CBCMP,CEA,FEST 04/06/2024 10:15 AM EST Office Visit [place] [facility] - [facility] [address] [facility] [address] [place] [address] Georgi Butterfield MD 3510 [facility] 17[address] [facility] 225 [place], [place] [address] 6 MTH FU W/LABS, REV SCAN 04/13/2024 9:30 AM EST Office Visit Surgical Oncology - [facility] [address] [facility] [address] [place] [address] Delvis Cheek MD 125 [facility] 660 [place] [address] 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 documented as of this encounter Visit Diagnoses Not on filedocumented in this encounter Care Teams Track Laying Equipment Operator Relationship Specialty Start Date End Date Felicitas Monaco MD PCP - General Family Medicine 06/18/22 07/05/23 documented as of this encounter
--- OUTSIDE RECORDS SUMMARY | 2024-01-13 03:18 | XMS_ITS | Encounter Summary ---
Author Organization Jose Alejandro Kit [facility] Address [address] [place] [address] Care Team Providers Care Brake Coupler Dinkey Name Role Phone Felicitas Monaco MD Primary Care Provider [phone] Reason for Visit * Reason Onset Date Comments Call Patient 09/29/2022 Encounter Details Date Type Department Care Team (Late Contact Info) Description 09/29/2022 Telephone Orthopaedics - [address] [place] [address], [address] [place] [address] Georgi Andersen PA [address] [facility] 200 [place] [address] Call Patient Social History Tobacco [...] Dr. [address] [place] [address] Martell Calderon MD 214 [facility] [address] [place] [address] TREMORS/ MEDICARE, FOR LIFE 03/28/2024 8:30 AM EDT Office Visit Primary Care - [address] [phone] Cheo Santoyo, DO [address] [place] [address] AWV 04/06/2024 9:45 AM EST Lab [facility] - [facility] [address] [facility] [address] [place] [address] CBCMP,CEA,FEST 04/06/2024 10:15 AM EST Office Visit [place] [facility] - [facility] [address] [facility] [address] [place] [address] Georgi Butterfield MD [address] [place], [place] [address] 6 MTH FU W/LABS, REV SCAN 04/13/2024 9:30 AM EST Office Visit Surgical Oncology - [facility] [address] [facility] [address] [place] [address] Delvis Cheek MD 125 [facility] 660 [place] [address] 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 documented as of this encounter Visit Diagnoses Not on filedocumented in this encounter Care Teams Brake Coupler Dinkey Relationship Specialty Start Date End Date Felicitas Monaco MD PCP - General Family Medicine 06/18/22 07/05/23 documented as of this encounter
--- OUTSIDE RECORDS SUMMARY | 2024-01-13 03:18 | XMS_ITS | Encounter Summary ---
Author Organization Jose Alejandro Kit [facility] Address [address] [place] [address] Care Team Providers Care Rn Correctional Name Role Phone Felicitas Monaco MD Primary Care Provider [phone] Encounter Details Date Type Department Care Team (Latest Contact Info) Description 07/29/2022 9:20 AM EST Ancillary Procedure [facility] - [address] [place] [address] Spinal stenosis of lumbar region [...] Dr. [address] [place] [address] Martell Calderon MD 2145 [facility] [address] [place] [address] TREMORS/ MEDICARE, FOR LIFE 03/28/2024 8:30 AM EDT Office Visit Primary Care - [address] [phone] Cheo Santoyo, DO [address] [place] [address] AWV 04/06/2024 9:45 AM EST Lab [facility] - [facility] 20[address] [facility] [address] [place] [address] CBCMP,CEA,FEST 04/06/2024 10:15 AM EST Office Visit [facility] - [facility] [address] [facility] [address] [place] [address] Georgi Butterfield MD [address] [place], [place] [address] 6 MTH FU W/LABS, REV SCAN 04/13/2024 9:30 AM EST Office Visit Surgical Oncology - [facility] [address] [facility] [address] [place] [address] Delvis Cheek MD 125 [facility] 660 [place] [address] 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 06/19/2024 10:30 AM EST Office Visit Orthopaedics- Les Valencia [address] [facility] [facility] [address] [place] [address] Karly Bautista, BURT [address] [place] [address] annual visit from date of [...] movement between flexion and extension Willa Sandhu SEX THERAPIST - FINISHING PAN OPERATOR IMG DIAGNOSTI C IMAGING ORDERABLES documented in this encounter Visit Diagnoses Diagnosis Spinal stenosis of lumbar region with neurogenic claudication Spinal stenosis, lumbar region, with neurogenic claudication Sacroiliitis (HCC) Sacroiliitis, not elsewhere classified documented in this encounter Care Teams Rn Correctional Relationship Specialty Start Date End Date Felicitas Monaco MD PCP - General Family Medicine 06/18/22 07/05/23 documented as of this encounter
--- OUTSIDE RECORDS SUMMARY | 2024-01-13 03:18 | XMS_ITS | Encounter Summary ---
Author Organization Jose [facility]andro [facility] Address [address] [place] [address] Care Team Providers Care Loss Control Representative Name Role Phone Felicitas Monaco MD Primary Care Provider [phone] Reason for Referral * Surgical (Routine) - Closed Specialty Diagnoses / Procedures Referred By Rachid jimenez Referred To Contact Orthopedic Surgery Diagnoses Primary osteoarthritis of left knee Procedures MA ARTHRP KNE CONDYLE&PLATU MEDIAL&LAT COMPARTMENTS Maurice Panchal MD [facility] [address] [address] Maurice Panchal MD [address] [place] [id number] Referral ID Status Reason Start Date Expiration Date V isits Requested Visits Authorized [id number] Closed Insurance 09/30/2022 09/30/2023 1 1 [place] [id number] M17.11 DATE [facility] Maurice Panchal MD, Orthopaedics [facility] [address] [address] Comments The patient can be scheduled with any member of the group, including the provider with the first available appointments. Encounter Details Date Type Department Care Team (Late st Contact Info) Description 09/30/2022 Orders Only Orthopaedics - [address] - [address] 105 [place] [address] Maurice Panchal MD [address] [facility] 105 [place] [address] Primary osteoarthritis of left knee (Primary Dx) [...] Neurology - [facility] 2144 [facility] [address] [place] [address] Martell Calderon MD 214 [facility] [address] [place] [address] TREMORS/ MEDICARE, FOR LIFE 03/28/2024 8:30 AM EDT Office Visit Primary Care - [address] [phone] Cheo Santoyo, [address] [place] [phone] AWV 04/06/2024 9:45 AM EST Lab [facility] 2084 [facility] [address] [place] [address] CBCMP,CEA,FEST 04/06/2024 10:15 AM EST Office Visit [facility] - [facility] 2084 [facility] [address] [place] [address] Georgi Butterfield MD [address] [place] [address] 6 MTH FU W/LABS, REV SCAN 04/13/2024 9:30 AM EST Office Visit Surgical Oncology - 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
--- OUTSIDE RECORDS SUMMARY | 2024-01-13 03:18 | XMS_ITS | Encounter Summary ---
Author Organization Jose Alejandro Raymundolinnea [facility] Address [address] [place] [address] Care Team Providers Care Budget Examiner Name Role Phone Felicitas Monaco MD Primary Care Provider [phone] Reason for Referral * Eval and Treat (Routine) - Closed Specialty Diagnoses / Procedures Referred By Rachid jimenez Referred To Contact Orthopedic Surgery Diagnoses Primary osteoarthritis of right knee Primary osteoarthritis of left knee Dave Lynne Jr., MD 2092 [facility] 200 [place] [address] Maurice Panchal MD [address] [address] Referral ID Status Reason Start Date Expiration Date V isits Requested Visits Authorized [id number] Closed Specialty Services Required 07/07/2022 07/07/2023 1 1 Scheduling Instructions EVAL AND TREAT FOR POSSIBLE TKA Maurice Panchal MD, Orthopaedics [facility] [address] 105 [place] [address] Comments The patient can be scheduled with any member of the group, including the provider with the first available appointments. Patient Information Name: Martínez Toribio : 1955 Mobile Phone: Telephone Information: Work Phone: There is no work phone number on file. Address: [address] [facility] [address] Reason for Visit * Reason Comments Follow-up Right hip pain Encounter Details Date Type Department Care Team (Late st Contact Info) Description 07/07/2022 9:50 AM EST Office Visit Orthopaedics - [address] [place] [address] Dave Lynne Jr., MD [address] [place] [address] Primary osteoarthritis of right hip (Primary Dx); [...] Negative Impingement Mildly Positive Hip Scouring negative Vmxqbs-3-wfmydbyg Negative Extension ER Negative KATLYN Test Negative [...] Dr. [address] [place] [address] Martell Calderon MD [address] [place] [address] TREMORS/ MEDICARE, FOR LIFE 03/28/2024 8:30 AM EDT Office Visit Primary Care - [facility] [address] [place] [address] Cheo Santoyo DO 1112 [place] [phone] AWV 04/06/2024 9:45 AM EST Lab [facility] - [facility] 2084 [facility] [address] [place] [address] CBCMP,CEA,FEST 04/06/2024 10:15 AM EST Office Visit [facility] - [facility] 2084 [facility] [address] [place] [address] Georgi Butterfield MD 3510 [facility] [address] [place], [place] [address] 6 MTH FU W/LABS, REV SCAN 04/13/2024 9:30 AM EST Office Visit Surgical Oncology - [facility] 2084 [facility] [address] [place] [address] Delvis Cheek MD 125 [facility] 660 [place] [address] 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
--- OUTSIDE RECORDS SUMMARY | 2024-01-13 03:18 | XMS_ITS | Encounter Summary ---
Author Organization [facility] Address [address] [place] [address] Care Team Providers Care Cow Buyer Name Role Phone Felicitas Monaco MD Primary Care Provider [phone] Reason for Visit * Reason Onset Date Comments Medication Refill 08/13/2022 Encounter Details Date Type Department Care Team (Late Contact Info) Description 08/13/2022 Refill Primary Care - [address] [place] [address] Felicitas Monaco MD 203 [place] [address] Medication Refill Social History Tobacco [...] Dr. [address] [place] [address] Martell Calderon MD 2144 [facility] [address] [place] [address] TREMORS/ MEDICARE, FOR LIFE 03/28/2024 8:30 AM EDT Office Visit Primary Care - [address] [phone] Cheo Santoyo, DO [address] [place] [address] AWV 04/06/2024 9:45 AM EST Lab [facility] - [facility] 2084 [facility] [address] [place] [address] CBCMP,CEA,FEST 04/06/2024 10:15 AM EST Office Visit [facility] - [facility] 2084 [facility] [address] [place] [address] Georgi Butterfield MD [address] [place], [place] [address] 6 MTH FU W/LABS, REV SCAN 04/13/2024 9:30 AM EST Office Visit Surgical Oncology - [facility] 2084 [facility] [address] [place] [address] Delvis Cheek MD 125 [facility] 660 [place] [address] 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 documented as of this encounter Visit Diagnoses Not on filedocumented in this encounter Care Teams Cow Buyer Relationship Specialty Start Date End Date Felicitas Monaco MD PCP - General Family Medicine 06/18/22 07/05/23 documented as of this encounter
--- OUTSIDE RECORDS SUMMARY | 2024-01-13 03:18 | XMS_ITS | Encounter Summary ---
Author Organization Jose Alejandro [facility] Address [address] [place] [address] Care Team Providers Care Epidemiology Investigator Name Role Phone Felicitas Monaco MD Primary Care Provider [phone] Reason for Visit * Reason Onset Date Comments Surgery Scheduling 11/26/2022 Encounter Details Date Type Department Care Team (Late Contact Info) Description 11/26/2022 Telephone Orthopaedics - [address] [place] [address] Maurice Panchal MD [address] 105 [place] [address] Surgery Scheduling Social History Tobacco [...] Neurology - [address] [facility] [facility] [address] [place] [address] Martell Calderon MD 2145 [facility] [address] [place] [address] TREMORS/ MEDICARE, FOR LIFE 03/28/2024 8:30 AM EDT Office Visit Primary Care - [facility] [address] [place] [phone] Cheo Santoyo, DO 1112 [place] [address] AWV 04/06/2024 9:45 AM EST Lab [facility] - [facility] [address] [facility] [address] [place] [address] CBCMP,CEA,FEST 04/06/2024 10:15 AM EST Office Visit [facility] - [facility] [address] [facility] [address] [place] [address] Georgi Butterfield MD [address] [place], [place] [address] 6 MTH FU W/LABS, REV SCAN 04/13/2024 9:30 AM EST Office Visit Surgical Oncology - [facility] [address] 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 [address] [place] [address] Karly Bautista PA [address] [place] [address] annual visit from date of surgery May/Jul 2024 for bilateral TKA and right LIZZ with Karly. documented as of this encounter Visit Diagnoses Not on filedocumented in this encounter Care Teams Epidemiology Investigator Relationship Specialty Start Date End Date Felicitas Monaco MD PCP - General Family Medicine 06/18/22 07/05/23 documented as of this encounter
--- OUTSIDE RECORDS SUMMARY | 2024-01-13 03:18 | XMS_ITS | Encounter Summary ---
Author Organization [facility] Kit [facility] Address [address] [place] [address] Care Team Providers Care Package Dyeing Machine Operator Name Role Phone Felicitas Monaco MD Primary Care Provider [phone] Encounter Details Date Type Department Care Team (Late st Contact Info) Description 10/09/2022 Abstract Primary Care - [address] [place] [address] Felicitas Monaco MD 203 [place] [address] Social History Tobacco Use Types [...] Dr. [address] [place] [address] Martell Calderon MD [address] [facility] [address] [place] [address] TREMORS/ MEDICARE, FOR LIFE 03/28/2024 8:30 AM EDT Office Visit Primary Care - [address] [phone] Cheo Santoyo, DO 1112 [place] [address] AWV 04/06/2024 9:45 AM EST Lab [facility] - [facility] 2084 [facility] [address] [place] [address] CBCMP,CEA,FEST 04/06/2024 10:15 AM EST Office Visit [facility] - [facility] 2084 [facility] [address] [place] [address] Georgi Butterfield MD 3510 [facility] 17 [address] [place], [place] [address] 6 MTH FU W/LABS, REV SCAN 04/13/2024 9:30 AM EST Office Visit Surgical Oncology - [facility] 2084 [facility] [address] [place] [address] Delvis Cheek MD 125 [facility] 660 [place] [address] 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 documented as of this encounter Visit Diagnoses Not on filedocumented in this encounter Care Teams Package Dyeing Machine Operator Relationship Specialty Start Date End Date Felicitas Monaco MD PCP - General Family Medicine 06/18/22 07/05/23 documented as of this encounter
--- OUTSIDE RECORDS SUMMARY | 2024-01-13 03:18 | XMS_ITS | Encounter Summary ---
Author Organization Jose Alejandro [facility]olinnea [facility] Address [address] [place] [address] Care Team Providers Care Head Loader Name Role Phone Felicitas Monaco MD Primary Care Provider [phone] Encounter Details Date Type Department Care Team (Late Contact Info) Description 08/20/2022 1:10 PM EDT Ancillary Procedure Orthopaedics - [address] [place] [address] Social History Tobacco Use Types [...] Dr. [address] [place] [address] Martell Calderon MD [address] [place] [address] TREMORS/ MEDICARE, FOR LIFE 03/28/2024 8:30 AM EDT Office Visit Primary Care - [address] [address] Cheo Santoyo, [address] [place] [phone] AWV 04/06/2024 9:45 AM EST Lab [place] [facility] - [facility] 2084 [facility] [address] [place] [address] CBCMP,CEA,FEST 04/06/2024 10:15 AM EST Office Visit [facility] - [facility] 2084 [facility] [address] [place] [address] Georgi Butterfield MD [address] [place], [place] [address] 6 MTH FU W/LABS, REV SCAN 04/13/2024 9:30 AM EST Office Visit Surgical Oncology - [facility] 2084 [facility] [address] [place] [address] Delvis Cheek MD 125 [facility] 660 [place] [address] 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 [address] [place] [address] Karly Bautista PA [address] [place] [address] annual visit from date of [...] today. ??X-rays show severe osteoarthritis with near ayyb-ab-gytj appearance of the medial compartment with significant [...] osteoarthritis of the right knee with near novq-mh-lrjy appearance in the medial compartment with significant narrowing of the medial joint space resulting in mild varus malalignment. ?? Osteophytes are appreciated on the medial femoral condyle. Bonny RODRIGUEZG DIAGNOSTIC IMAGI NG ORDERABLES documented in this encounter Visit Diagnoses Not on filedocumented in this encounter Care Teams Head Loader Relationship Specialty Start Date End Date Felicitas Monaco MD PCP - General Family Medicine 06/18/22 07/05/23 documented as of this encounter
--- OUTSIDE RECORDS SUMMARY | 2024-01-13 03:18 | XMS_ITS | Encounter Summary ---
Author Organization Jose Alejandro Raymundolinnea [employer] [facility] Address [address] [place] [address] Care Team Providers Care Pool Manager Name Role Phone Felicitas Monaco MD Primary Care Provider [phone] Reason for Visit * Reason Comments Knee Pain Bilateral knee pain Encounter Details Date Type Department Care Team (Latest Contact Info) Description 08/20/2022 1:00 PM EDT Office Visit Orthopaedics - [address] [phone] Bonny McarthurTRYON, PA [address] [address] Bilateral primary osteoarthritis of knee (Primary Dx); [...] X- rays show severe osteoarthritis with near fnfx-rc-teyx appearance of the medial compartment with significant [...] Neurology - [facility] 2144 [facility] [address] [place] [address] Martell Calderon MD 2144 [facility] [address] [place] [address] TREMORS/ MEDICARE, FOR LIFE 03/28/2024 8:30 AM EDT Office Visit Primary Care - [address] [address] Cheo Santoyo, [address] [phone] AWV 04/06/2024 9:45 AM EST Lab [facility] - [facility] 2084 [facility] [address] [place] [address] CBCMP,CEA,FEST 04/06/2024 10:15 AM EST Office Visit [facility] - [facility] 2084 [facility] [address] [place] [address] Georgi Butterfield MD [address] [place] [address] 6 MTH FU W/LABS, REV SCAN 04/13/2024 9:30 AM EST Office Visit Surgical Oncology - [facility] 2084 [facility] [address] [place] [address] Delvis Cheek MD 125 [facility] 660 [place] [address] 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 ??X-rays show severe osteoarthritis with near hhpl-ml-fmqt appearance of the medial compartment with significant [...] osteoarthritis of the right knee with near hsgy-mw-bpax appearance in the medial compartment with significant narrowing of the medial joint space resulting in mild varus malalignment. ?? Osteophytes are appreciated on the medial femoral condyle. Bonny [facility]ALL[facility] IMG DIAGNOSTIC IMAGI NG ORDERABLES documented in this encounter Visit Diagnoses Diagnosis Bilateral primary osteoarthritis of knee- Primary Pain in both knees, unspecified chronicity documented in this encounter Care Teams Pool Manager Relationship Specialty Start Date End Date Felicitas Monaco MD PCP - General Family Medicine 06/18/22 07/05/23 documented as of this encounter
--- OUTSIDE RECORDS SUMMARY | 2024-01-13 03:18 | XMS_ITS | Encounter Summary ---
Author Organization Jose Alejandro Kit [facility] Address [address] [place] [address] Care Team Providers Care Surgery Specialist Name Role Phone Felicitas Monaco MD Primary Care Provider [phone] Reason for Visit * Reason Comments Injections Right knee Supartz i njection #2 of 3, BUY & BILL Encounter Details Date Type Department Care Team (Late st Contact Info) Description 10/20/2022 8:45 AM EDT Office Visit Orthopaedics - [address] [place] [address] Georgi Andersen PA [address] [place] [address] Primary osteoarthritis of right knee (Primary Dx) [...] Neurology - [address] 2144 [facility] [facility] [address] [place] [address] Martell Calderon MD 2144 [facility] [address] [place], [place] [address] TREMORS/ MEDICARE, FOR LIFE 03/28/2024 8:30 AM EDT Office Visit Primary Care - [facility] [address] [place] [address] Cheo Santoyo DO [facility] [place] [address] AWV 04/06/2024 9:45 AM EST Lab [place] [facility] - [facility] 2084 [facility] [address] [place] [address] CBCMP,CEA,FEST 04/06/2024 10:15 AM EST Office Visit [place] - [facility] 2084 [facility] [address] [place] [address] Georgi Butterfield MD 3510 [facility] [address] [place] [address] 6 MTH FU W/LABS, REV SCAN 04/13/2024 9:30 AM EST Office Visit Surgical Oncology - [facility] 2084 [facility] [address] [place] [address] Delvis Cheek MD 125 [facility] 660 [place] [address] 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 [address] [place] [address] Karly Bautista PA [address] [place] [address] annual visit from date of [...] Right documented in this encounter Care Teams Surgery Specialist Relationship Specialty Start Date End Date Felicitas Monaco MD PCP - General Family Medicine 06/18/22 07/05/23 documented as of this encounter
--- OUTSIDE RECORDS SUMMARY | 2024-01-13 03:18 | XMS_ITS | Encounter Summary ---
Author Organization Jose Alejandro Raymundolinnea [facility] Address [address] [place] [address] Care Team Providers Care Bung Dropper Name Role Phone Felicitas Monaco MD Primary Care Provider [phone] Reason for Referral * Imaging (Routine) - Closed Specialty Diagnoses / Procedures Referred By Rachid jimenez Referred To Contact Radiology Diagnoses Acquired deformity of left knee Procedures CT KNEE LEFT WO CONTRAST Bonny Mcarthur PA [address] [address] Referral ID Status Reason Start Date Expiration Date Visits Re quested Visits Authorized [id number] Closed 09/29/2022 09/29/2023 1 1 Reason for Visit * Imaging (Routine) - Closed Specialty Diagnoses / Procedures Referred By Rachid jimenez Referred To Contact Radiology Diagnoses Acquired deformity of left knee Procedures CT KNEE LEFT WO CONTRAST Bonny Mcarthur PA [address] [address] Referral ID Status Reason Start Date Expiration Date Visits Re quested Visits Authorized [id number] Closed 09/29/2022 09/29/2023 1 1 Encounter Details Date Type Department Care Team (Latest Contact Info) Description 11/12/2022 11:38 AM EDT - 11/12/2022 11:59 PM EDT Hospital Encounter [facility] [address] [address] Acquired deformity of left knee Discharge Disposition: [...] Visit Neurology - [facility] [address] [facility] [address] [place] [address] Martell Calderon MD 2[address] [facility] [address] [place] [address] TREMORS/ MEDICARE, FOR LIFE 03/28/2024 8:30 AM EDT Office Visit Primary Care - [address] [address] [place] [address] [place] [address] AWV 04/06/2024 9:45 AM EST [facility] [address] [facility] [address] [place] [address] CBCMP,CEA,FEST 04/06/2024 10:15 AM EST Office [facility] [place] [facility] [address] [facility] [address] [place] [address] Georgi Butterfield MD [address] [place] [address] 6 MTH FU W/LABS, REV SCAN 04/13/2024 9:30 AM EST Office Visit Surgical Oncology - [facility] [address] [facility] [address] [place] [address] Delvis Cheek MD [address] 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 This note was created using voice recognition software and may contain typographic errors missed during final review. The intent is to have a complete and accurate medical record. ?As a valued partner in this safety effort, if you have noted factual errors, please complete the Health Information Amendment/Correct Form or call the [facility] Health Information Management Office at [phone]. Narrative 11/12/2022 3:06 PM EDT Indication: eval joint deformity for surgical planning - [place] Hugo protocol M21.962,Unspecified acquired deformity of left [...] eval joint deformity for surgical planning - [place] Diomedesoprotocol M21.962,Unspecified acquired deformity of left lower [...] feel free to call me directly using Capec[employer]. This note was created using voice recognition software and may contain typographic errors missed during final review. The intent is to have acomplete and accurate medical record. ?As a valued partner in this safety effort,if you have noted factual errors, please complete the Health Information Amendment/Correct Form or call the [facility] Health Information ManagementOffice at [phone]. Bonny DALLAS G CT ORDERABLES documented in this encounter Visit Diagnoses Diagnosis Acquired deformity of left knee documented in this encounter Care Teams Bung Dropper Relationship Specialty Start Date End Date Felicitas Monaco MD PCP - General Family Medicine 06/18/22 07/05/23 documented as of this encounter
--- OUTSIDE RECORDS SUMMARY | 2024-01-13 03:18 | XMS_ITS | Encounter Summary ---
Author Organization Jose Alejandro Raymundolinnea [facility] Address [address] [place] [address] Care Team Providers Care Legal Billing Clerk Name Role Phone Felicitas Monaco MD Primary Care Provider [phone] Encounter Details Date Type Department Care Team (Late st Contact Info) Description 11/30/2022 Abstract [place] [facility] - [facility]. [address] [facility] [address] [place] [address] Georgi Butterfield MD [address] [place] [address] Social History Tobacco Use Types [...] Neurology - [facility] [address] [facility] [address] [place] [address] Martell Calderon MD 2144 [facility] [address] [place] [address] TREMORS/ MEDICARE, FOR LIFE 03/28/2024 8:30 AM EDT Office Visit Primary Care - [address] [phone] Cheo Santoyo DO [address] [place] [phone] AWV 04/06/2024 9:45 AM EST Lab [place] [facility] - [facility] [address] [facility] [address] [place] [address] CBCMP,CEA,FEST 04/06/2024 10:15 AM EST Office Visit [place] [facility] - [facility] [address] [facility] [address] [place] [address] Georgi Butterfield MD [address] [place] [address] 6 MTH FU W/LABS, REV SCAN 04/13/2024 9:30 AM EST Office Visit Surgical Oncology - [facility] [address] [facility] [address] [place] [address] Delvis Cheek MD 125 [facility] [address] [place] [address] 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 documented as of this encounter Visit Diagnoses Not on filedocumented in this encounter Care Teams Legal Billing Clerk Relationship Specialty Start Date End Date Felicitas Monaco MD PCP - General Family Medicine 06/18/22 07/05/23 documented as of this encounter
--- OUTSIDE RECORDS SUMMARY | 2024-01-13 03:18 | XMS_ITS | Encounter Summary ---
Author Organization Jose Alejandro Kit Castorena [facility] Address [address] [place] [address] Care Team Providers Care Dust Collector Attendant Name Role Phone Felicitas Monaco MD Primary Care Provider [phone] Encounter Details Date Type Department Care Team (Late st Contact Info) Description 07/02/2022 Abstract Primary Care - [address] [place] [address] Felicitas Monaco MD [address] [place] [address] Social History Tobacco Use Types [...] [address] Dr[address] [place] [address] Martell Calderon MD 2[address] [facility] [address] [place], [place] [phone] TREMORS/ MEDICARE, FOR LIFE 03/28/2024 8:30 AM EDT Office Visit Primary Care - [facility] [address] [place] [address] Cheo Santoyo DO [address]12 [place] [address] AWV 04/06/2024 9:45 AM EST Lab [place] [facility] - [facility] [address] [facility] [address] [place] [address] CBCMP,CEA,FEST 04/06/2024 10:15 AM EST Office Visit [place] [facility] - [facility] [address] [facility] [address] [place] [address] Georgi Butterfield MD 3510 [facility] 17N [facility] 225 [place], [place] [address] 6 MTH FU W/LABS, REV SCAN 04/13/2024 9:30 AM EST Office Visit Surgical Oncology - [facility] [address] [facility] [address] [place] [address] Delvis Cheek MD 125 [facility] 660 [place] [address] 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 documented as of this encounter Visit Diagnoses Not on filedocumented in this encounter Care Teams Dust Collector Attendant Relationship Specialty Start Date End Date Felicitas Monaco MD PCP - General Family Medicine 06/18/22 07/05/23 documented as of this encounter
--- OUTSIDE RECORDS SUMMARY | 2024-01-13 03:18 | XMS_ITS | Encounter Summary ---
Author Organization Jose Alejandro Kit [facility] Address [address] [place] [address] Care Team Providers Care Branch Mechanic Name Role Phone Felicitas Monaco MD Primary Care Provider [phone] Encounter Details Date Type Department Care Team (Late st Contact Info) Description 11/30/2022 Orders Only Orthopaedics - [place] [address] [address] [phone] Maurice Panchal MD [address] [address] Social History Tobacco Use Types Packs/Day Years [...] Dr. [address] [place] [phone] Martell Calderon MD [address] [place] [address] TREMORS/ MEDICARE, FOR LIFE 03/28/2024 8:30 AM EDT Office Visit Primary Care - [address] [address] Cheo Santoyo DO 1112 [place] [address] AWV 04/06/2024 9:45 AM EST Lab [place] [facility] - [facility] 2084 [facility] [address] [place] [address] CBCMP,CEA,FEST 04/06/2024 10:15 AM EST Office Visit [place] [facility] - [facility] [address] [facility] [address] [place] [address] Georgi Butterfield MD 3510 [facility] [address] [place], [place] [phone] 6 MTH FU W/LABS, REV SCAN 04/13/2024 9:30 AM EST Office Visit Surgical Oncology - [facility] [address] [facility] [address] [place] [address] Delvis Cheek MD 125 [facility] 660 [place] [address] 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 documented as of this encounter Visit Diagnoses Not on filedocumented in this encounter Care Teams Branch Mechanic Relationship Specialty Start Date End Date Felicitas Monaco MD PCP - General Family Medicine 06/18/22 07/05/23 documented as of this encounter
--- OUTSIDE RECORDS SUMMARY | 2024-01-13 03:18 | XMS_ITS | Encounter Summary ---
Author Organization [facility] Address [address] [place] [address] Care Team Providers Care Housekeeping Laundry Worker Name Role Phone Felicitas Monaco MD Primary Care Provider [phone] Reason for Visit * Reason Onset Date Comments Medication Refill 08/12/2022 Encounter Details Date Type Department Care Team (Late Contact Info) Description 08/12/2022 Refill Primary Care - [address] [place] [address] Felicitas Monaco MD [address] [place] [address] Medication Refill Social History Tobacco [...] Dr. [address] [place] [address] Martell Calderon MD 2144 [facility] [address] [place] [address] TREMORS/ MEDICARE, FOR LIFE 03/28/2024 8:30 AM EDT Office Visit Primary Care - [address] [phone] Cheo Santoyo, DO [address] [place] [address] AWV 04/06/2024 9:45 AM EST Lab [place] [facility] - [facility] 20[address] [facility] [address] [place] [address] CBCMP,CEA,FEST 04/06/2024 10:15 AM EST Office Visit [place] [facility] - [facility] 20[address] [facility] [address] [place] [address] Georgi Butterfield MD [address] [place], [place] [phone] 6 MTH FU W/LABS, REV SCAN 04/13/2024 9:30 AM EST Office Visit Surgical Oncology - [facility] 20[address] [facility] [address] [place] [address] Delvis Cheek MD 125 [facility] 660 [place] [address] 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 documented as of this encounter Visit Diagnoses Not on filedocumented in this encounter Care Teams Housekeeping Laundry Worker Relationship Specialty Start Date End Date Felicitas Monaco MD PCP - General Family Medicine 06/18/22 07/05/23 documented as of this encounter
--- OUTSIDE RECORDS SUMMARY | 2024-01-13 03:18 | XMS_ITS | Encounter Summary ---
Author Organization Jose Alejandro Raymundolinnea [facility] Address [address] [place] [address] Care Team Providers Care Senior Business Objects Developer Name Role Phone Felicitas Monaco MD Primary Care Provider [phone] Reason for Referral * Imaging (Routine) - Open Specialty Diagnoses / Procedures Referred By [facility] Referred To Contact Radiology Diagnoses Carcinoma of ascending colon (HCC) Adenocarcinoma of cecum (HCC) Malignant neoplasm of intestine (HCC) Procedures CT ABDOMEN PELVIS W IV CONTRAST Additional Contrast? None Georgi Butterfield MD [address] [place] [address] Referral ID Status Reason Start Date Expiration Date Visits Re quested Visits Authorized [id number] Open 04/07/2023 04/06/2024 1 1 * Imaging (Routine) - Open Specialty Diagnoses / Procedures Referred By [facility] Referred To Contact Radiology Diagnoses Carcinoma of ascending colon (HCC) Adenocarcinoma of cecum (HCC) Malignant neoplasm of intestine (HCC) Procedures CT CHEST W CONTRAST Georgi Butterfield MD [address] [place] [address] Referral ID Status Reason Start Date Expiration Date Visits Re quested Visits Authorized [id number] Open 04/07/2023 04/06/2024 1 1 Reason for Visit * Reason Comments Follow-up Encounter Details Date Type Department Care Team (Late st Contact Info) Description 10/05/2022 10:15 AM EDT Office Visit [facility] Hematology & Oncology - [facility]. [address] [facility] [address] [place] [address] Georgi Butterfield MD [address] [place] [address] Carcinoma of ascending colon (HCC) [...] from the original note were not included. [facility] HEMATOLOGY & ONCOLOGY Georgi A. Beldner, MD Rosalino Bellil, MD MD Chandan Kirk DO Jenny Riley, MD Margaret Brady, MD Caitlin Mengler, [facility]- Marcela Jackman, [facility] Gisselle Padilla NP [email or web address] Hematology/Medical Oncology Patient Name: Martínez Toribio Date [...] HIP performed by Martinez Guthrie MD at [facility] PAIN MANAGEMENT JOINT REPLACEMENT Right 2011 shoulder [...] 9:00 AM EDT Office Visit Neurology - [facility] [address] [facility] [address] [place] [address] Martell Calderon MD [address] [facility] [address] [place] [address] TREMORS/ MEDICARE, FOR LIFE 03/28/2024 8:30 AM EDT Office Visit Primary Care - [address] [phone] Cheo Santoyo, [address] [place] [phone] AWV 04/06/2024 9:45 AM EST Lab [place] [facility] - [facility] [address] [facility] [address] [place] [address] CBCMP,CEA,FEST 04/06/2024 10:15 AM EST Office Visit [place] [facility] - [facility] [address] [facility] [address] [place] [address] Georgi Butterfield MD [address] [place], [place] [address] 6 MTH FU W/LABS, REV SCAN 04/13/2024 9:30 AM EST Office Visit Surgical Oncology - [facility] [address] [facility] [address] [place] [address] Delvis Cheek MD 125 [facility] 660 [place] [address] 1 YEAR F/U ADENOCARCINOMA OF THE CECUM 06/19/2024 10:30 AM EST Office Visit Orthopaedics- Les Fair 615 [facility] [address] [place] [address] Karly Bautista PA [address] [place] [address] annual visit from date of [...] recurrent or metastatic disease. Georgi Butterfield MD [facility] CT ORDERABLES * CT CHEST W CONTRAST [...] recurrent or metastatic disease. Georgi Butterfield MD [facility] CT ORDERABLES * Reticulocytes (10/05/2022 10:02 AM EDT) RBC 5.18 4.00 - 5.60 x10e6/mcL [facility] Retic Ct Pct 1.7 0.5 - 2.0 % [facility] Retic Ct Abs 0.0865 0.0235 - 0.1220 /mcL [facility] Comment: Test Performed at: [facility] [address] [place] [address] Blood BLOOD SPECIMEN / Unknown 10/05/2022 10:02 AM EDT 10/05/2022 9:25 PM EDT Georgi Butterfield MD HEMATOLOGY ORDERABL ES Performing Organization Address [facility] de Phone Number [facility] [address] [place] [address] * Ferritin (10/05/2022 10:02 AM EDT) Pathologist [facility] Ferritin 244.4 30.0 - 400.0 ng/mL [facility] Comment: Test Performed at: [facility] [address] [place] [address] [place] [address] Blood BLOOD SPECIMEN / Unknown 10/05/2022 10:02 AM EDT 10/05/2022 9:25 PM EDT Georgi Butterfield MD CHEMISTRY ORDERABLE S Performing Organization Address [facility] de Phone Number [facility] [address] [place] [address] * Iron and TIBC (10/05/2022 10:02 AM EDT) [facility] Iron 119 59 - 158 mcg/dL [facility] UIBC 186.3 112.0 - 347.0 mcg/dL [facility] TIBC 306 250 - 450 mcg/dL [facility] Iron % Saturation 39 20 - 40 % [facility] Comment: Test Performed at: [facility] [address] [place] [address] [place] [address] Serum BLOOD SPECIMEN / Unknown 10/05/2022 10:02 AM EDT 10/05/2022 9:25 PM EDT Narrative [facility] - 10/05/2022 9:39 PM EDT Is Patient Fasting?->no No of Hours?->no Georgi Butterfield MD CHEMISTRY ORDERABLE S Performing Organization Address [facility] de Phone Number [facility] [address] [place] [address] * Soluble transferrin receptor (10/05/2022 10:02 AM EDT) [facility] Soluble Transferrin Recept 16.5 12.2 - 27.3 nmol/L [facility] Comment: Performed At: [facility] [address] [id number] Ajit Swift MD Ph:[phone] Test Performed at: [facility] [address] [facility] [place] [address] Blood BLOOD SPECIMEN / Unknown 10/05/2022 10:02 AM EDT 10/05/2022 9:25 PM EDT Georgi Butterfield MD HEMATOLOGY ORDERABL ES [facility] [address] [facility] [place] [address] * CBC with Auto Differential (10/05/2022 10:02 [...] ONCOLOGY MPV 7.7 0.0 - 49.9 fL [facility] HEMATOLOGY & ONCOLOGY UN Whole Blood BLOOD SPECIMEN / Unknown 10/05/2022 10:02 AM EDT 10/05/2022 10:02 AM EDT Narrative [facility] HEMATOLOGY & ONCOLOGY UN - 10/05/2022 10:11 AM EDT Testing Location: [facility] Hematology and Oncology, [address] [place] [address] [address] [address], Georgi Butterfield MD HEMATOLOGY ORDERABL ES [facility] HEMATOLOGY & ONCOLOGY [address] [place] [phone], [facility] [place] * (ABNORMAL) Comprehensive Metabolic Panel (10/05/2022 10:02 AM EDT) Sodium 142 135 - 145 mmol/L [facility] Potassium 5.2 3.5 - 5.3 mmol/L [facility] Chloride 105 98 - 107 mmol/L [facility] CO2 26 22 - 29 mmol/L [facility] Glucose 109(H) 70 - 99 mg/dL [facility] BUN 17 8 - 23 mg/dL [facility] Creatinine 1.1 0.7 - 1.3 mg/dL [facility] Anion Gap 10 2 - 17 mmol/L [facility] Osmolaliy Calculated 285 270 - 287 mOsm/kg [facility] Calcium 9.6 8.8 - 10.2 mg/dL [facility] Total Protein 6.5 6.4 - 8.3 g/dL [facility] Albumin 4.6 3.5 - 5.2 g/dL [facility] Globulin 1.9 1.9 - 4.4 g/dL [facility] Albumin/Globulin Ratio 2.40 1.00 - 2.70 [facility] Total Bilirubin 0.71 0.00 - 1.20 mg/dL [facility] Alk Phosphatase 65 40 - 130 unit/L [facility] AST 23 0 - 50 unit/L [facility] ALT 37 0 - 50 unit/L [facility] Est, Glom Filt Rate 74 >=60 mL/min/1.7 3m? [facility] Comment: VERIFIED by Discern Expert. GFR Interpretation: [...] estimating GFR in adults. Test Performed at: [facility] [address] [place] [address] Blood BLOOD SPECIMEN / Unknown 10/05/2022 10:02 AM EDT 10/05/2022 9:25 PM EDT Georgi Butterfield MD CHEMISTRY ORDERABLE S [facility] [address] [place] [address] documented in this encounter Visit Diagnoses Diagnosis [...] unspecified documented in this encounter Care Teams Senior Business Objects Developer Relationship Specialty Start Date End Date Felicitas Monaco MD PCP - General Family Medicine 06/18/22 07/05/23 documented as of this encounter
--- OUTSIDE RECORDS SUMMARY | 2024-01-13 03:18 | XMS_ITS | Encounter Summary ---
Author Organization Jose Alejandro [facility] Address [address] [place] [address] Care Team Providers Care Electronic Semiconductor Processor Name Role Phone Felicitas Monaco MD Primary Care Provider [phone] Reason for Visit * Reason Onset Date Comments Other 09/29/2022 Encounter Details Date Type Department Care Team (Late Contact Info) Description 09/29/2022 Telephone Neurosurgery & Spine - [address] - [address] [place] [address] Sharonda Rodriguez PA [address] [facility] [address] [place] [address] Other Social History Tobacco Use [...] Dr. [address] [place] [address] Martell Calderon MD 2145 [facility] [address] [place] [address] TREMORS/ MEDICARE, FOR LIFE 03/28/2024 8:30 AM EDT Office Visit Primary Care - [facility] [address] [place] [phone] Cheo Santoyo, DO [address]12 [place] [address] AWV 04/06/2024 9:45 AM EST Lab [facility] - [facility] [address] [facility] [address] [place] [address] CBCMP,CEA,FEST 04/06/2024 10:15 AM EST Office Visit [facility] - [facility] [address] [facility] [address] [place] [address] Georgi Butterfield MD [address] [place], [place] [phone] 6 MTH FU W/LABS, REV SCAN 04/13/2024 9:30 AM EST Office Visit Surgical Oncology - [facility] [address] [facility] [address] [place] [address] Delvis Cheek MD 125 [facility] 660 [place] [address] 1 YEAR F/U ADENOCARCINOMA OF THE CECUM 06/19/2024 10:30 AM EST Office Visit Orthopaedics- [place] Valencia [address] [facility] [address] [place] [address] Karly Bautista, BURT [address] [place] [address] annual visit from date of surgery May/Jul 2024 for bilateral TKA and right LIZZ with Karly. documented as of this encounter Visit Diagnoses Not on filedocumented in this encounter Care Teams Electronic Semiconductor Processor Relationship Specialty Start Date End Date Felicitas Monaco MD PCP - General Family Medicine 06/18/22 07/05/23 documented as of this encounter
--- OUTSIDE RECORDS SUMMARY | 2024-01-13 03:18 | XMS_ITS | Encounter Summary ---
Author Organization Jose Alejandro Kit [facility] Address [address] [place] [address] Care Team Providers Care Pipe Fitter Welding Name Role Phone Felicitas Monaco MD Primary Care Provider [phone] Reason for Visit * Reason Onset Date Comments Other 07/28/2022 Medication updat e Call Patient 07/28/2022 Encounter Details Date Type Department Care Team ([facility] Contact Info) Description 07/28/2022 Telephone Neurosurgery & Spine - [address]an [address] - [address] [place] [address] Willa Sandhu, NURSING PROGRAM MANAGER - [facility] [address] [place] [address] Other (Medication update); Call Patient [...] Visit Neurology - [facility] 2[address] [facility] [address] [place] [address] Martell Calderon MD 2144 [facility] [address] [place], [place] [id number] TREMORS/ MEDICARE, FOR LIFE 03/28/2024 8:30 AM EDT Office Visit Primary Care - [address] [address] [address]oo [address] [address] AWV 04/06/2024 9:45 AM EST Lab [facility] - [facility] 2084 [facility] [address] [place] [address] CBCMP,CEA,FEST 04/06/2024 10:15 AM EST Office Visit [facility] - [facility] 2084 [facility] [address] [place] [address] Georgi Butterfield MD 3510 [facility] 17N [facility] 225 [place] [address] 6 MTH FU W/LABS, REV SCAN 04/13/2024 9:30 AM EST Office Visit Surgical Oncology - [facility] 2084 [facility] [address] [place] [address] Delvis Cheek MD 125 [facility] 660 [place] [phone] 1 YEAR F/U ADENOCARCINOMA OF THE CECUM 06/19/2024 10:30 AM EST Office Visit Orthopaedics- [place] Valencia 615 [facility] 100 [place] [address] Karly Bautista, BURT 180 [facility] 301 [place] [address] annual visit from date of surgery May/Jul 2024 for bilateral TKA and right LIZZ with Karly. documented as of this encounter Visit Diagnoses Not on filedocumented in this encounter Care Teams Pipe Fitter Welding Relationship Specialty Start Date End Date Felicitas Monaco MD PCP - General Family Medicine 06/18/22 07/05/23 documented as of this encounter
--- OUTSIDE RECORDS SUMMARY | 2024-01-13 03:18 | XMS_ITS | Encounter Summary ---
Author Organization [facility] Kit [facility] Address [address] [place] [address] Care Team Providers Care Research Project Manager Name Role Phone Felicitas Monaco MD Primary Care Provider [phone] Encounter Details Date Type Department Care Team (Late st Contact Info) Description 09/03/2022 Orders Only [place] - [facility]. 8950 [facility] [address] [place] [phone] Georgi Butterfield MD [address] [place] [address] Social History Tobacco Use Types [...] Dr. [address] [place] [phone] Martell Calderon MD [address] [facility] [address] [place], [place] [address] TREMORS/ MEDICARE, FOR LIFE 03/28/2024 8:30 AM EDT Office Visit Primary Care - [address] [phone] Cheo Santoyo, 1112 [place] [address] AWV 04/06/2024 9:45 AM EST Lab [place] [facility] - [facility] 2084 [facility] [address] [place] [address] CBCMP,CEA,FEST 04/06/2024 10:15 AM EST Office Visit [place] [facility] - [facility] 2084 [facility] [address] [place] [phone] Georgi Butterfield MD [address] [place], [place] [phone] 6 MTH FU W/LABS, REV SCAN 04/13/2024 9:30 AM EST Office Visit Surgical Oncology - [facility] 2084 [facility] [address] [place] [phone] Delvis Cheek MD 125 [facility] 660 [place] [address] 1 YEAR F/U ADENOCARCINOMA OF THE CECUM 06/19/2024 10:30 AM EST Office Visit Orthopaedics- Les Valencia 615 [address] [facility] [address] [place] [address] Karly Bautista PA [address] [place] [address] annual visit from date of [...] filedocumented in this encounter Care Teams Research Project Manager Relationship Specialty Start Date End Date Felicitas Monaco MD PCP - General Family Medicine 06/18/22 07/05/23 documented as of this encounter
--- OUTSIDE RECORDS SUMMARY | 2024-01-13 03:18 | XMS_ITS | Encounter Summary ---
Author Organization Jose Alejandro Kit [employer] [facility] Address [address] [place] [address] Care Team Providers Care Property Insurance Inspector Name Role Phone Felicitas Monaco MD Primary Care Provider [phone] Reason for Visit * Reason Onset Date Comments Other 10/07/2022 SURGERY CLEARANC E FORM Encounter Details Date Type Department Care Team (Late Contact Info) Description 10/07/2022 Telephone Orthopaedics - [address] [facility] 202 [place] [phone] Maurice Panchal MD 3510 [facility] 17 [facility] 105 [place] [address] Other (SURGERY CLEARANCE FORM) Social [...] Dr. [address] [place] [phone] Martell Calderon MD 6256 [facility] [address] [place] [address] TREMORS/ MEDICARE, FOR LIFE 03/28/2024 8:30 AM EDT Office Visit Primary Care - [facility] [address] [place] [phone] Cheo Santoyo, DO 1112 [place] [address] AWV 04/06/2024 9:45 AM EST Lab [place] [facility] - [facility] 2084 [facility] [address] [place] [phone] CBCMP,CEA,FEST 04/06/2024 10:15 AM EST Office Visit [place] [facility] - [facility] 2084 [facility] [address] [place] [address] Georgi Butterfield MD [address] [place] [address] 6 MTH FU W/LABS, REV SCAN 04/13/2024 9:30 AM EST Office Visit Surgical Oncology - [facility] 2084 [facility] [address] [place] [address] Delvis Cheek MD 125 [facility] 660 [place] [phone] 1 YEAR F/U ADENOCARCINOMA OF THE CECUM 06/19/2024 10:30 AM EST Office Visit Orthopaedics- Les Valencia [address] [facility] [address] [place] [phone] Karly Bautista PA [address] [place] [address] annual visit from date of surgery May/Jul 2024 for bilateral TKA and right LIZZ with Karly. documented as of this encounter Visit Diagnoses Not on filedocumented in this encounter Care Teams Property Insurance Inspector Relationship Specialty Start Date End Date Felicitas Monaco MD PCP - General Family Medicine 06/18/22 07/05/23 documented as of this encounter
--- OUTSIDE RECORDS SUMMARY | 2024-01-13 03:18 | XMS_ITS | Encounter Summary ---
Author Organization [facility] Kit [facility] Address [address] [place] [address] Care Team Providers Care Power System Engineer Name Role Phone Felicitas Monaco MD Primary Care Provider [phone] Reason for Visit * Reason Onset Date Comments Medication Refill 08/13/2022 Encounter Details Date Type Department Care Team (Late Contact Info) Description 08/13/2022 Refill Primary Care - [address] [place] [address] Felicitas Monaco MD 203 [place] [address] Medication Refill Social History Tobacco [...] Dr. [address] [place] [address] Martell Calderon MD 2144 [facility] [address] [place] [address] TREMORS/ MEDICARE, FOR LIFE 03/28/2024 8:30 AM EDT Office Visit Primary Care - [address] [phone] Cheo Santoyo, DO [address] [place] [address] AWV 04/06/2024 9:45 AM EST Lab [place] [facility] - [facility] 2084 [facility] [address] [place] [address] CBCMP,CEA,FEST 04/06/2024 10:15 AM EST Office Visit [place] [facility] - [facility] 2084 [facility] [address] [place] [address] Georgi Butterfield MD [address] [place], [place] [phone] 6 MTH FU W/LABS, REV SCAN 04/13/2024 9:30 AM EST Office Visit Surgical Oncology - [facility] 2084 [facility] [address] [place] [address] Delvis Cheek MD 125 [facility] 660 [place] [phone] 1 YEAR F/U ADENOCARCINOMA OF THE CECUM 06/19/2024 10:30 AM EST Office Visit Orthopaedics- Les Valencia 615 [address] [facility] [address] 100 [place] [phone] Karly Bautista, BURT [address] [place] [address] annual visit from date of surgery May/Jul 2024 for bilateral TKA and right LIZZ with Karly. documented as of this encounter Visit Diagnoses Not on filedocumented in this encounter Care Teams Power System Engineer Relationship Specialty Start Date End Date Felicitas Monaco MD PCP - General Family Medicine 06/18/22 07/05/23 documented as of this encounter
--- OUTSIDE RECORDS SUMMARY | 2024-01-13 03:18 | XMS_ITS | Encounter Summary ---
Author Organization Jose Alejandro Kit [facility] Address [address] [place] [address] Care Team Providers Care Software Engineer Advisor Name Role Phone Felicitas Monaco MD Primary Care Provider [phone] Reason for Visit * Reason Comments Follow-up 3 month f/u Encounter Details Date Type Department Care Team (Late st Contact Info) Description 09/21/2022 10:30 AM EDT Office Visit Primary Care - [address] [place] [address] Felicitas Monaco MD [address] [place] [phone] Chronic low back pain, unspecified back [...] pain. Patient had labs drawn at the [employer] after our last visit. These labs [...] time. Limited mobility. -Has seen neurosurgery with [facility]. Has upcoming appointment to discuss plans for surgical intervention. -Has been recommended for bilateral knee replacement and will plan to do this after his back surgery. -Requesting a refill on [place] which he uses very occasionally for his [...] to d/c the Carafate and iron. -his commutator inspector felt the ulcer was related to his [...] 1/2 tablet daily 08/13/22 11/11/22 Yes Felicitas oMnaco MD Ondansetron HCl (ZOFRAN PO) Take by mouth Yes Historical Provider, acetaminophen (TYLENOL) 500 MG tablet Take 1 tablet by mouth every 6 hours as needed for Pain Yes Historical Provider, aspirin 81 MG EC tablet Take 1 tablet by mouth daily Yes Historical Provider, tadalafil (CIALIS) 20 MG tablet 06/11/20 Yes Historical Provider, dulaglutide (TRULICITY) 1.5 MG/0.5ML SC injection 0.5 mLs Yes [facility] Rs Automatic Reconciliation, Family History Problem Relation [...] [facility]INT REPLAC[facility] Right 2011 [...] it with his neurosurgeon first. Refill of [place] provided. Patient requesting Flexeril to use as [...] long-term current use of insulin ([facility]) Comments: Improved. Continue metformin, Jardiance Trulicbrielle Orders: - AMB POC HEMOGLOBIN A1C Patient will request the labs from the [employer] [facility] for me to review. An electronic signature was used to authenticate this note. --Felicitas Monaco MD documented in this encounter Plan of Treatment Upcoming Encounters Date Type Department Care Team (Late st Contact Info) Description 03/24/2024 9:00 AM EDT Office Visit Neurology - Maryan [address]sen Dr[address] [place] [phone] Martell Calderon MD 2144 [facility] [address] [place], [place] [phone] TREMORS/ MEDICARE, FOR LIFE 03/28/2024 8:30 AM EDT Office Visit Primary Care - [facility] [address] [place] [phone] Cheo Santoyo DO 1112 [place] [address] AWV 04/06/2024 9:45 AM EST Lab [place] [facility] - [facility] 2084 [facility] [address] [place] [address] CBCMP,CEA,FEST 04/06/2024 10:15 AM EST Office Visit [place] [facility] - [facility] 2084 [facility] [address] [place] [address] Georgi Butterfield MD 3510 [facility] 17N [facility] 225 [place], [place] [phone] 6 MTH FU W/LABS, REV SCAN 04/13/2024 9:30 AM EST Office Visit Surgical Oncology - [facility] 2084 [facility] [address] [place] [address] Delvis Cheek MD 125 [facility] 660 [place] [address] 1 YEAR F/U ADENOCARCINOMA OF THE CECUM 06/19/2024 10:30 AM EST Office Visit Orthopaedics- Les Valencia 615 [address] [facility] [address] 100 [place] [phone] Karly Bautista, PA 180 [facility] 301 [place] [address] annual visit from date of surgery May/Jul [...] (HCC) documented in this encounter Care Teams Software Engineer Advisor Relationship Specialty Start Date End Date Felicitas Monaco MD PCP - General Family Medicine 06/18/22 07/05/23 documented as of this encounter
--- OUTSIDE RECORDS SUMMARY | 2024-01-13 03:18 | XMS_ITS | Encounter Summary ---
Author Organization [facility] Address [address] [place] [address] Care Team Providers Care Roller Skates Assembler Name Role Phone Felicitas Monaco MD Primary Care Provider [phone] Encounter Details Date Type Department Care Team (Late st Contact Info) Description 08/31/2022 Orders Only [place] [facility] - [facility]. 8950 [facility] [address] [place] [address] Georgi Butterfield MD [address] [place] [address] Iron deficiency anemia, unspecified iron [...] EDT Office Visit Neurology - [facility] [address] [facility] [address] [place] [address] Martell Calderon MD [address] [facility] [address] [place], [place] [address] TREMORS/ MEDICARE, FOR LIFE 03/28/2024 8:30 AM EDT Office Visit Primary Care - [facility] 1112 [place] [phone] Cheo Santoyo, 1112 [place] [address] AWV 04/06/2024 9:45 AM EST Lab [place] [facility] - [facility] 2084 [facility] [address] [place] [address] CBCMP,CEA,FEST 04/06/2024 10:15 AM EST Office Visit [place] [facility] - [facility] 2084 [facility] [address] [place] [address] Georgi Butterfield MD [address] [place], [place] [address] 6 MTH FU W/LABS, REV SCAN 04/13/2024 9:30 AM EST Office Visit Surgical Oncology - [facility] 2084 [facility] [address] [place] [address] Delvis Cheek MD 125 [facility] 660 [place] [address] 1 YEAR F/U ADENOCARCINOMA OF THE CECUM 06/19/2024 10:30 AM EST Office Visit Orthopaedics- Adalberto Valencia 615 [facility] 100 [place] [address] Karly Bautista PA [address] [place] [address] annual visit from date of surgery May/Jul 2024 for bilateral TKA and right LIZZ with Karly. documented as of this encounter Results * Reticulocytes (10/05/2022 10:02 AM EDT) RBC 5.18 4.00 - 5.60 x10e6/mcL [facility] Retic Ct Pct 1.7 0.5 - 2.0 % [facility] Retic Ct Abs 0.0865 0.0235 - 0.1220 /mcL [facility] Comment: Test Performed at: [facility] [address] [place] [address] [place] [address] Blood BLOOD SPECIMEN / Unknown 10/05/2022 10:02 AM EDT 10/05/2022 9:25 PM EDT Georgi Butterfield MD HEMATOLOGY ORDERABL ES Performing Organization Address [facility] de Phone Number [facility] [address] [place] [address] * Ferritin (10/05/2022 10:02 AM EDT) Pathologist [facility] Ferritin 244.4 30.0 - 400.0 ng/mL [facility] Comment: Test Performed at: [facility] [address] [place] [address] Blood BLOOD SPECIMEN / Unknown 10/05/2022 10:02 AM EDT 10/05/2022 9:25 PM EDT Georgi Butterfield MD CHEMISTRY ORDERABLE S Performing Organization Address [facility] Co de Phone Number [facility] [address] [place] [address] * Iron and TIBC (10/05/2022 10:02 AM EDT) Pathologist [facility] Iron 119 59 - 158 mcg/dL [facility] UIBC 186.3 112.0 - 347.0 mcg/dL [facility] TIBC 306 250 - 450 mcg/dL [facility] Iron % Saturation 39 20 - 40 % [facility] Comment: Test Performed at: [facility] [address] [place] [address] Serum BLOOD SPECIMEN / Unknown 10/05/2022 10:02 AM EDT 10/05/2022 9:25 PM EDT Narrative [facility] - 10/05/2022 9:39 PM EDT Is Patient Fasting?->no No of Hours?->no Georgi Butterfield MD CHEMISTRY ORDERABLE S Performing Organization Address [facility] de Phone Number [facility] [address] [place] [address] * Soluble transferrin receptor (10/05/2022 10:02 AM EDT) [facility] Soluble Transferrin Recept 16.5 12.2 - 27.3 nmol/L [facility] Comment: Performed At: [facility] [address] [id number] Ajit Swift MD Ph:[phone] Test Performed at: [facility] [address] [place] [address] [place] [address] Blood BLOOD SPECIMEN / Unknown 10/05/2022 10:02 AM EDT 10/05/2022 9:25 PM EDT Georgi Butterfield MD HEMATOLOGY ORDERABL ES Performing Organization Address [facility] de Phone Number [facility] [address] [place] [address] * CBC with Auto Differential (10/05/2022 10:02 AM EDT) [facility] WBC 5.9 4.1 - 10.9 K/uL [facility] [...] [facility] Hematology and Oncology, [address] [place] [address], Georgi Butterfield MD HEMATOLOGY ORDERABL ES [facility]COL[facility]Y [address] [phone] documented in this encounter Visit Diagnoses Diagnosis Iron deficiency anemia, unspecified iron deficiency anemia type- Primary Carcinoma of ascending colon (HCC)- Primary Malignant neoplasm of ascending colon Iron deficiency anemia, unspecified iron deficiency anemia type Adenocarcinoma of cecum (HCC) Malignant neoplasm of intestine (HCC) Malignant neoplasm of intestinal tract, part unspecified documented in this encounter Care Teams Roller Skates Assembler Relationship Specialty Start Date End Date Felicitas Monaco MD PCP - General Family Medicine 06/18/22 07/05/23 documented as of this encounter
--- OUTSIDE RECORDS SUMMARY | 2024-01-13 03:18 | XMS_ITS | Encounter Summary ---
Author Organization Jose Alejandro [facility] Address [address] [place] [address] Care Team Providers Care Sexologist Name Role Phone Felicitas Monaco MD Primary Care Provider [phone] Reason for Visit * Reason Comments Injections Right knee Supartz # 1 of 3, BUY & BILL Encounter Details Date Type Department Care Team (Late st Contact Info) Description 10/13/2022 8:45 AM EDT Office Visit Orthopaedics - [address] [place] [address] Georgi Andersen PA [address] [place] [address] Primary osteoarthritis of right knee (Primary Dx) [...] 9:00 AM EDT Office Visit Neurology - [facility] [address] [facility] [address] [place] [address] Martell Calderon MD 2144 [facility] [address] [place] [address] TREMORS/ MEDICARE, FOR LIFE 03/28/2024 8:30 AM EDT Office Visit Primary Care - [address] [address] [place] [address] [place] [phone] AWV 04/06/2024 9:45 AM EST Lab [place] [facility] 20[address] [facility] [address] [place] [address] CBCMP,CEA,FEST 04/06/2024 10:15 AM EST Office Visit [place] [facility] 20[address] [facility] [address] [place] [address] Georgi Butterfield MD [address] [place] [address] 6 MTH FU W/LABS, REV SCAN 04/13/2024 9:30 AM EST Office Visit Surgical Oncology - [facility] 2084 [facility] [address] [place] [address] Delvis Cheek MD 125 [facility] [address] [place] [address] 1 YEAR F/U ADENOCARCINOMA OF THE CECUM 06/19/2024 10:30 AM EST Office Visit Orthopaedics- Les Valencia 615 [facility] 100 [place] [address] Karly Bautista PA 180 [facility] 301 [place] [address] annual visit from date of [...] Right documented in this encounter Care Teams Sexologist Relationship Specialty Start Date End Date Felicitas Monaco MD PCP - General Family Medicine 06/18/22 07/05/23 documented as of this encounter
--- OUTSIDE RECORDS SUMMARY | 2024-01-13 03:19 | XMS_ITS | Encounter Summary ---
Author Organization Jose Alejandro P[facility]ja [facility] Address [address] [place] [address] Care Team Providers Care Dairy Machine Operator Farmworker Name Role Phone Carter Santoyoony Moshe REYES Primary Care Provider [phone] Encounter Details Date Type Department Care Team (Late st Contact Info) Description 03/23/2022 Legacy Historical [facility] AM[facility] HISTORICAL Georgi Butterfield MD [address] [place] [address] Social History Tobacco Use Types Packs/Day Years [...] Neurology - [facility] 2[address] [facility] [address] [place] [address] Martell Calderon MD 214 [facility] [address] [place] [address] TREMORS/ MEDICARE, FOR LIFE 03/28/2024 8:30 AM EDT Office Visit Primary Care - [address] [address] Cheo Santoyo DO 1112 [place] [address] AWV 04/06/2024 9:45 AM EST Lab [place] [facility] - [facility] [address] [facility] [address] [place] [address] CBCMP,CEA,FEST 04/06/2024 10:15 AM EST Office Visit [place] [facility] - [facility] [address] [facility] [address] [place] [address] Georgi Butterfield MD [address] [place] [address] 6 MTH FU W/LABS, REV SCAN 04/13/2024 9:30 AM EST Office Visit Surgical Oncology - [facility] [address] [facility] [address] [place] [address] Delvis Cheek MD 125 [facility] [address] [place] [address] 1 YEAR F/U ADENOCARCINOMA OF THE CECUM 06/19/2024 10:30 AM EST Office Visit Orthopaedics- Les Valencia 615 [facility] [address] [place] [address] Karly Bautista, PA [address] [place] [address] annual visit from date of surgery May/Jul 2024 for bilateral TKA and right LIZZ with Karly. documented as of this encounter Visit Diagnoses Not on filedocumented in this encounter Care Teams Dairy Machine Operator Farmworker Relationship Specialty Start Date End Date Cheo Santoyo DO [address] [place] [phone] PCP - General Family Medicine 07/06/23 documented as of this encounter
--- OUTSIDE RECORDS SUMMARY | 2024-01-13 03:19 | XMS_ITS | Encounter Summary ---
Author Organization Jose Alejandro Pantoja [facility] Address [address] [place] [address] Care Team Providers Care Project Surveyor Name Role Phone Baljit Ozuna MD Primary Care Provider [phone] Reason for Visit * Reason Comments Knee [...] Dr. [address] [place] [address] Georgi Andersen PA [address] [place] [address] Primary osteoarthritis of left knee (Primary Dx); [...] Visit Neurology - [facility] [address] [facility] [address] [place] [address] Martell Calderon MD 2144 [facility] [address] [place] [address] TREMORS/ MEDICARE, FOR LIFE 03/28/2024 8:30 AM EDT Office Visit Primary Care - [address] [phone] Cheo Santoyo, [address] [address] AWV 04/06/2024 9:45 AM EST [facility] [place] [facility] - [facility] 2084 [facility] [address] [place] [address] CBCMP,CEA,FEST 04/06/2024 10:15 AM EST Office Visit [place] [facility] - [facility] 2084 [facility] [address] [place] [address] Georgi Butterfield MD 3510 [facility] [address] [place] [address] 6 MTH FU W/LABS, REV SCAN 04/13/2024 9:30 AM EST Office Visit Surgical Oncology - [facility] 2084 [facility] [address] [place] [address] Delvis Cheek MD 125 [facility] [address] [place] [address] 1 YEAR F/U ADENOCARCINOMA OF THE CECUM 06/19/2024 10:30 AM EST Office Visit Orthopaedics- Les Valencia 615 [facility] [address] [place] [address] Karly Bautista PA [address] [place] [address] annual visit from date of [...] mg documented in this encounter Care Teams Project Surveyor Relationship Specialty Start Date End Date Baljit Ozuna MD PCP - General 03/12/22 06/17/22 documented as of this encounter
--- OUTSIDE RECORDS SUMMARY | 2024-01-13 03:19 | XMS_ITS | Encounter Summary ---
Author Organization Jose Alejandro Kit [facility] Address [address] [place] [address] Care Team Providers Care Mutuel Department Manager Name Role Phone Felicitas Monaco MD Primary Care Provider [phone] Encounter Details Date Type Department Care Team (Late st Contact Info) Description 06/15/2022 Orders Only [facility] - [facility]. 8950 [facility] [address] [place] [address] Georgi Butterfield MD [address] [place] [address] Social History Tobacco Use Types [...] Dr. [address] [place] [address] Martell Calderon MD 2144 [facility] [address] [place] [address] TREMORS/ MEDICARE, FOR LIFE 03/28/2024 8:30 AM EDT Office Visit Primary Care - [address] [address] Cheo Santoyo DO 1112 [place] [address] AWV 04/06/2024 9:45 AM EST Lab [place] [facility] - [facility] 2084 [facility] [address] [place] [address] CBCMP,CEA,FEST 04/06/2024 10:15 AM EST Office Visit [place] [facility] - [facility] 2084 [facility] [address] [place] [address] Georgi Butterfield MD [address] [place] [address] 6 MTH FU W/LABS, REV SCAN 04/13/2024 9:30 AM EST Office Visit Surgical Oncology - [facility] 2084 [facility] [address] [place] [address] Delvis Cheek MD [address] [facility] [address] [place] [address] 1 YEAR F/U ADENOCARCINOMA OF THE CECUM 06/19/2024 10:30 AM EST Office Visit Orthopaedics- Les Valencia 615 [facility] [address] [place] [address] Karly Bautista, BURT [address] [place] [address] annual visit from date of [...] on filedocumented in this encounter Care Teams Mutuel Department Manager Relationship Specialty Start Date End Date Felicitas Monaco MD PCP - General Family Medicine 06/18/22 07/05/23 documented as of this encounter
--- OUTSIDE RECORDS SUMMARY | 2024-01-13 03:19 | XMS_ITS | Encounter Summary ---
Author Organization Jose Alejandro Pantoja [facility] Address [address] [place] [address] Care Team Providers Care Street Contractor Name Role Phone Cheo Santoyo Primary Care Provider [phone] Encounter Details Date Type Department Care Team (Late st Contact Info) Description 10/07/2021 Legacy Historical Encounter [facility] HISTORICAL CONVERSIONS [address] [place], [place] [phone] Dave Lynne Jr., MD [address] [place], [place] [address] Social History Tobacco Use Types Packs/Day Years [...] 2144 [facility] [address] [place] [address] Martell Calderon MD 214 [facility] [address] [place] [address] TREMORS/ MEDICARE, FOR LIFE 03/28/2024 8:30 AM EDT Office Visit Primary Care - [address] [address] [place] [address] [place] [address] AWV 04/06/2024 9:45 AM EST Lab [place] [facility] - [facility] 2084 [facility] [address] [place] [address] CBCMP,CEA,FEST 04/06/2024 10:15 AM EST Office Visit [place] [facility] - [facility] 2084 [facility] [address] [place] [address] Georgi Butterfield MD 3510 [facility] [address] [place] [address] 6 MTH FU W/LABS, REV SCAN 04/13/2024 9:30 AM EST Office Visit Surgical Oncology - [facility] 2081 [facility] [address] [place] [address] Delvis Cheek MD 125 [facility] 660 [place] [address] 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 [address] [place] [phone] Karly Bautista, PA [address] [place] [address] annual visit from date of surgery May/Jul 2024 for bilateral TKA and right LIZZ with Karly. documented as of this encounter Visit Diagnoses Not on filedocumented in this encounter Care Teams Street Contractor Relationship Specialty Start Date End Date Cheo Santoyo DO [address] [place] [address] PCP - General Family Medicine 07/06/23 documented as of this encounter
--- OUTSIDE RECORDS SUMMARY | 2024-01-13 03:19 | XMS_ITS | Encounter Summary ---
Author Organization Jose Alejandro Kit [facility] Address [address] [place] [address] Care Team Providers Care Digital Advertising Specialist Name Role Phone Felicitas Monaco MD Primary Care Provider [phone] Reason for Visit * Auth/Cert (Routine) Specialty Diagnoses / Procedures Referred By Rachid jimenez Referred To Contact Diagnoses Unilateral primary osteoarthritis, right hip Procedures [place] ARTHROCENTESIS ASPIR&/INJ MAJOR JT/BURSA W/O US Martinez Guthrie MD [address] [place] [phone] Referral ID Status Reason Start Date Expiration Date Visits Re quested Visits Authorized [id number] 05/26/2022 1 1 Encounter Details Date Type Department Care Team (Late st Contact Info) Description 06/18/2022 7:37 AM EST - 06/18/2022 8:39 AM EST Hospital Encounter [facility] 2094 [place], [place] [id number] Martinez Guthrie MD [address] [place] [address] Discharge Disposition: Home or Self Care [...] this encounter Discharge Instructions * Discharge Instructions* Kyaley Valderrama RN - 06/18/2022 7:44 AM EST [...] Everywhere. * Bursa Injection: Trochanteric: General Info (Bermudian) * RICE: General Info (Bermudian) documented in this encounter Medications at Time [...] 9:00 AM EDT Office Visit Neurology - [facility] 2144 [facility] [address] [place] [address] Martell Calderon MD 2144 [facility] [address] [place] [address] TREMORS/ MEDICARE, FOR LIFE 03/28/2024 8:30 AM EDT Office Visit Primary Care - [address] [address] Cheo Santoyo DO [address] [place] [address] AWV 04/06/2024 9:45 AM EST Lab [place] [facility] - [facility] 2084 [facility] [address] [place] [address] CBCMP,CEA,FEST 04/06/2024 10:15 AM EST Office Visit [place] [facility] - [facility] 2084 [facility] [address] [place] [address] Georgi Butterfield MD [address] [place] [address] 6 MTH FU W/LABS, REV SCAN 04/13/2024 9:30 AM EST Office Visit Surgical Oncology - [facility] 2084 [facility] [address] [place] [address] Delvis Cheek MD [address] [place] [address] [address] [place] [address] 1 YEAR F/U ADENOCARCINOMA OF THE CECUM 06/19/2024 10:30 AM EST Office Visit Orthopaedics- Les Valencia 615 [facility] [address] [place] [address] Karly Bautista, PA [address] [place] [address] annual visit from date of surgery May/Jul 2024 for bilateral TKA and right LIZZ with Karly. documented as of this encounter Procedures Procedure Name Priority Date/Time Associated Diagnosis Comments [place] ARTHROCENTESIS ASPIR&/INJ MAJOR JT/BURSA W/O US 06/18/2022 [...] MD) documented in this encounter Care Teams Digital Advertising Specialist Relationship Specialty Start Date End Date Felicitas Monaco MD PCP - General Family Medicine 06/18/22 07/05/23 documented as of this encounter
--- OUTSIDE RECORDS SUMMARY | 2024-01-13 03:19 | XMS_ITS | Encounter Summary ---
Author Organization Jose Alejandro Pantoja [facility] Address [address] [place] [address] Care Team Providers Care Industrial Sales Manager Name Role Phone Baljit Ozuna MD Primary Care Provider Encounter Details Date Type Department Care Team (Late st Contact Info) Description 03/23/2022 10:07 AM EDT - 03/23/2022 11:59 PM EDT Hospital Encounter RS HISTORICAL CONVERSIONS [address] [place] [address] Georgi Butterfield MD 3510 [facility] [address] [place], [place] [phone] Social History Tobacco Use Types Packs/Day Years [...] EDT Office Visit Neurology - [facility] 2144 [facility] [address] [place] [address] Martell Calderon MD 2144 [facility] [address] [place], [place] [address] TREMORS/ MEDICARE, FOR LIFE 03/28/2024 8:30 AM EDT Office Visit Primary Care - [address] [phone] Cheo Santoyo, [address] [address] AWV 04/06/2024 9:45 AM EST Lab [place] [facility] - [facility] 2084 [facility] [address] [place] [address] CBCMP,CEA,FEST 04/06/2024 10:15 AM EST Office Visit [place] [facility] - [facility] 2084 [facility] [address] [place] [address] Georgi Butterfield MD [address] [place] [address] 6 MTH FU W/LABS, REV SCAN 04/13/2024 9:30 AM EST Office Visit Surgical Oncology - [facility] 2087 [facility] [address] [place] [address] Delvis Cheek MD 125 [facility] 660 [place] [address] 1 YEAR F/U ADENOCARCINOMA OF THE CECUM 06/19/2024 10:30 AM EST Office Visit Orthopaedics- Les Valencia 615 [facility] [address] [place] [address] Karly Bautista, BURT 180 [facility] 301 [place] [address] annual visit from date of surgery May/Jul 2024 for bilateral TKA and right LIZZ with Karly. documented as of this encounter Visit Diagnoses Not on filedocumented in this encounter Care Teams Industrial Sales Manager Relationship Specialty Start Date End Date Baljit Ozuna MD PCP - General 03/12/22 06/17/22 documented as of this encounter
--- OUTSIDE RECORDS SUMMARY | 2024-01-13 03:19 | XMS_ITS | Encounter Summary ---
Author Organization Jose Alejandro Kit [employer] [facility] Address [address] [place] [address] Care Team Providers Care Belt Brander Name Role Phone Blajit Ozuna MD Primary Care Provider [phone] Reason for Visit * Reason Onset Date Comments Other 05/08/2022 Encounter Details Date Type Department Care Team (Late Contact Info) Description 05/08/2022 Telephone Primary Care - [address] [place] [address] Baljit Ozuna MD 201 [facility] [address] [place] [address] Other Social History Tobacco Use [...] 9:00 AM EDT Office Visit Neurology - aMryan Jacobsen Dr. [address] [place] [address] Martell Calderon MD 2144 [facility] [address] [place] [address] TREMORS/ MEDICARE, FOR LIFE 03/28/2024 8:30 AM EDT Office Visit Primary Care - [facility] [address] [place] [address] Cheo Santoyo DO 1112 [place] [address] AWV 04/06/2024 9:45 AM EST Lab [place] [facility] - [facility] 2084 [facility] [address] [place] [address] CBCMP,CEA,FEST 04/06/2024 10:15 AM EST Office Visit [place] [facility] - [facility] 2084 [facility] [address] [place] [address] Georgi Butterfield MD [address] [place] [address] 6 MTH FU W/LABS, REV SCAN 04/13/2024 9:30 AM EST Office Visit Surgical Oncology - [facility] 2084 [facility] [address] [place] [address] Delvis Cheek MD 125 [facility] 660 [place] [address] 1 YEAR F/U ADENOCARCINOMA OF THE CECUM 06/19/2024 10:30 AM EST Office Visit Orthopaedics- Les Valencia 615 [facility] [facility] [address] [place] [address] Karly Bautista PA [address] [place] [address] annual visit from date of surgery May/Jul 2024 for bilateral TKA and right LIZZ with Karly. documented as of this encounter Visit Diagnoses Not on filedocumented in this encounter Care Teams Belt Brander Relationship Specialty Start Date End Date Baljit Ozuna MD PCP - General 03/12/22 06/17/22 documented as of this encounter
--- OUTSIDE RECORDS SUMMARY | 2024-01-13 03:19 | XMS_ITS | Encounter Summary ---
Author Organization Jose Alejandro Raymundolinnea Rushing[facility] Address [address] [place] [address] Care Team Providers Care Engine Repairer Service Name Role Phone Felicitas Monaco MD Primary Care Provider [phone] Reason for Visit * Reason Comments New Patient Encounter Details Date Type Department Care Team (Late st Contact Info) Description 06/30/2022 9:30 AM EST Office Visit Primary Care - [address] [place] [address] Felicitas Monaco MD [address] [place] [address] Type 2 diabetes mellitus without complication, [...] to d/c the Carafate and iron. -his painter helper spray felt the ulcer was related to his [...] Once a day for 30 day(s) Yes [facility] Automatic Reconciliation, Dulaglutide (TRULICITY) 0.75 MG/0.5ML SOPN 1.5 mg Yes [facility] Automatic Reconciliation, empagliflozin (JARDIANCE) 25 MG tablet Orally Yes [facility] Automatic Reconciliation, metFORMIN (GLUCOPHAGE) 1000 MG tablet 1 tablet with a meal Orally bid Yes [facility] Automatic Reconciliation, olmesartan (BENICAR) 20 MG tablet Take 20 mg by mouth daily 1/2 tablet daily Yes [facility] Automatic ReconciliationMD pantoprazole (PROTONIX) 40 MG tablet 1 tablet Orally Once a day for 30 day(s) Yes [facility] Automatic ReconciliationMD Family History Problem Relation [...] HIP performed by Martinez Guthrie MD at [facility] JOINT REPLACEMENT SUBTOTAL COLECTOMY [...] [facility] [place] [address] [facility] [address] [place] [address] Martell Calderon MD 2145 [facility] [address] [place] [address] TREMORS/ MEDICARE, FOR LIFE 03/28/2024 8:30 AM EDT Office Visit Primary Care - [address] [phone] Cheo Santoyo DO [address] [place] [address] AWV 04/06/2024 9:45 AM EST Lab [place] [facility] - [facility] 2084 [facility] [address] [place] [address] CBCMP,CEA,FEST 04/06/2024 10:15 AM EST Office Visit [place] [facility] - [facility] 2084 [facility] [address] [place] [address] Georgi Butterfield MD [address] [place] [address] 6 MTH FU W/LABS, REV SCAN 04/13/2024 9:30 AM EST Office Visit Surgical Oncology - [facility] [place] 2084 [facility] [address] [place] [address] Delvis Cheek MD 125 [facility] 660 [place] [address] 1 YEAR F/U ADENOCARCINOMA OF THE CECUM 06/19/2024 10:30 AM EST Office Visit Orthopaedics- Les Valencia 615 [facility] [address] [place] [address] Karly Bautista PA [address] [place] [address] annual visit from date of [...] C Antibody (03/04/2023 1:05 PM EDT) Pathologist [facility] Hepatitis C Ab Negative Negative [facility] [employer] Blood BLOOD SPECIMEN / Unknown 03/04/2023 1:05 PM EDT 03/04/2023 4:05 PM EDT Felicitas Monaco MD IMMUNOLOGY ORDERABL ES Performing Organization Address City/[facility]/ZIP Co de Phone Number [facility] [address] [place] [address] * CBC (03/04/2023 1:05 PM EDT) Pathologist [facility] WBC 6.6 3.8 - 10.6 x10e3/mcL [facility] [...] MD HEMATOLOGY ORDERABL ES Performing Organization Address [facility]/ZIP Co de Phone Number [facility] [address] [facility] [place] [address] * (ABNORMAL) Comprehensive Metabolic Panel (03/04/2023 1:05 [...] MD CHEMISTRY ORDERABLE S [facility] [address] [facility], [facility] [place] [address] * AMB POC HEMOGLOBIN A1C (06/30/2022 10:07 [...] thigh documented in this encounter Care Teams Engine Repairer Service Relationship Specialty Start Date End Date Felicitas Monaco MD PCP - General Family Medicine 06/18/22 07/05/23 documented as of this encounter
--- OUTSIDE RECORDS SUMMARY | 2024-01-13 03:19 | XMS_ITS | Encounter Summary ---
Author Organization Jose Alejandro Pantoja [facility] Address [address] [place] [address] Care Team Providers Care Facilities Engineering Manager Name Role Phone Cheo Santoyo Primary Care Provider [phone] Encounter Details Date Type Department Care Team (Late st Contact Info) Description 10/23/2021 Legacy Historical Encounter [facility] HISTORICAL CONVERSIONS [address] [place] [address] Delvis Cheek MD [address] [address] Social History Tobacco Use [...] Visit Neurology - [facility] [address] [facility] [address] [place] [address] Martell Calderon MD 214 [facility] [address] [place] [address] TREMORS/ MEDICARE, FOR LIFE 03/28/2024 8:30 AM EDT Office Visit Primary Care - [address] [address] [place] [address] [place] [address] AWV 04/06/2024 9:45 AM EST Lab [facility] 20[address] [facility] [address] [place] [address] CBCMP,CEA,FEST 04/06/2024 10:15 AM EST Office Visit [facility] 2084 [facility] [address] [place] [address] Georgi Butterfield MD 3510 [facility] [address] [place] [address] 6 MTH FU W/LABS, REV SCAN 04/13/2024 9:30 AM EST Office Visit Surgical Oncology - [facility] [address] [facility] [address] [place] [address] Delvis Cheek MD 125 [facility] 660 [place] [address] 1 YEAR F/U ADENOCARCINOMA OF THE CECUM 06/19/2024 10:30 AM EST Office Visit Orthopaedics- Les Valencia 615 [facility] [address] [place] [address] Karly Bautista, PA [address] [place] [address] annual visit from date of surgery May/Jul 2024 for bilateral TKA and right LIZZ with Karly. documented as of this encounter Visit Diagnoses Not on filedocumented in this encounter Care Teams Facilities Engineering Manager Relationship Specialty Start Date End Date Cheo Santoyo DO [address] [place] [phone] PCP - General Family Medicine 07/06/23 documented as of this encounter
--- OUTSIDE RECORDS SUMMARY | 2024-01-13 03:19 | XMS_ITS | Encounter Summary ---
Author Organization Jose Alejandro Pantoja [facility] Address [address] [email or web address] [place] [address] Care Team Providers Care Quenching Car Operator Name Role Phone Baljit Ozuna MD Primary Care Provider [phone] Reason for Visit * Reason Comments Follow-up Colon Cancer f/u Encounter Details Date Type Department Care Team (Latest Contact Info) Description 04/16/2022 9:45 AM EST Office Visit Surgical Oncology - [facility] [address] [facility] [address] [place] [address] Delvis Cheek MD [address] [place] [address] Adenocarcinoma of cecum (HCC) (Primary Dx); [...] Dr. [address] [place] [address] Martell Calderon MD 2144 [facility] [address] [place] [address] TREMORS/ MEDICARE, FOR LIFE 03/28/2024 8:30 AM EDT Office Visit Primary Care - [facility] [address] [place] [phone] [place] [address] [place] [phone] AWV 04/06/2024 9:45 AM EST Lab [facility] - [facility] [address] [facility] [address] [place] [address] CBCMP,CEA,FEST 04/06/2024 10:15 AM EST Office Visit [facility] - [facility] [address] [facility] [address] [place] [address] Georgi Butterfield MD [address] [place] [address] 6 MTH FU W/LABS, REV SCAN 04/13/2024 9:30 AM EST Office Visit Surgical Oncology - [facility] [address] [facility] [address] [place] [address] Delvis Cheek MD 125 [facility] 660 [place] [address] 1 YEAR F/U ADENOCARCINOMA OF THE CECUM 06/19/2024 10:30 AM EST Office Visit Orthopaedics- Les Valencia [address] [facility] [address] [place] [address] Karly Bautista PA [address] [place] [address] annual visit from date of [...] type documented in this encounter Care Teams Quenching Car Operator Relationship Specialty Start Date End Date Baljit Ozuna MD PCP - General 03/12/22 06/17/22 documented as of this encounter
--- OUTSIDE RECORDS SUMMARY | 2024-01-13 03:19 | XMS_ITS | Encounter Summary ---
Author Organization Jose Alejandro liriano [facility] Address [address] [place] [address] Care Team Providers Care Rubber Roller Grinder Name Role Phone Unavailable Primary Care Provider Unavailabl e Encounter Details Date Type Department Care Team (Late st Contact Info) Description 11/19/2021 Orders Only [facility] [address] [place], [place] [address] Rs Automatic Reconciliation, MD sara Social History [...] [facility] 2145 [facility] [address] [place] [address] Martell Calderon MD 2145 [facility] [address] [place] [address] TREMORS/ MEDICARE, FOR LIFE 03/28/2024 8:30 AM EDT Office Visit Primary Care - [address] [address] Cheo Santoyo DO [address] [place] [address] AWV 04/06/2024 9:45 AM EST Lab [facility] - [facility] 2084 [facility] [address] [place] [address] CBCMP,CEA,FEST 04/06/2024 10:15 AM EST Office Visit [facility] - [facility] 20[address] [facility] [address] [place] [address] Georgi Butterfield MD [address] [place] [address] 6 MTH FU W/LABS, REV SCAN 04/13/2024 9:30 AM EST Office Visit Surgical Oncology - [facility] 20[address] [facility] [address] [place] [address] Delvis Cheek MD 125 [facility] 660 [place] [address] 1 YEAR F/U ADENOCARCINOMA OF THE CECUM 06/19/2024 10:30 AM EST Office Visit Orthopaedics- Adalberto Valencia 615 [facility] [address] [place] [address] Karly Bautista, PA [address] [place] [address] annual visit from date of surgery May/Jul 2024 for bilateral TKA and right LIZZ with Karly. documented as of this encounter Visit Diagnoses Not on filedocumented in this encounter
--- OUTSIDE RECORDS SUMMARY | 2024-01-13 03:19 | XMS_ITS | Encounter Summary ---
Author Organization Jose Alejandro Raymundolinnea [facility] Address [address] [place] [address] Care Team Providers Care Pelletizer Operator Name Role Phone Baljit Oznua MD Primary Care Provider Reason for Visit * Reason Comments Follow-up Bilateral supartz in j. x2 Hip Pain Right hip Encounter Details Date Type Department Care Team (Late st Contact Info) Description 03/24/2022 9:45 AM EDT Nurse Only Orthopaedics - [address] Dr. [address] [place] [address] Georgi Andersen PA [address] [facility] [address] [place] [address] Primary hypertension (Primary Dx) Social History Tobacco [...] Dr. [address] [place] [address] Martell Calderon MD 2145 [facility] [address] [place] [address] TREMORS/ MEDICARE, FOR LIFE 03/28/2024 8:30 AM EDT Office Visit Primary Care - [address] [phone] Cheo Santoyo DO [address] [place] [phone] AWV 04/06/2024 9:45 AM EST Lab [facility] - [facility] 2084 [facility] [address] [place] [address] CBCMP,CEA,FEST 04/06/2024 10:15 AM EST Office Visit [facility] - [facility] 2084 [facility] [address] [place] [address] Georgi Butterfield MD [address] [place] [address] 6 MTH FU W/LABS, REV SCAN 04/13/2024 9:30 AM EST Office Visit Surgical Oncology - [facility] 2084 [facility] [address] [place] [address] Delvis Cheek MD 125 [facility] 660 [place] [address] 1 YEAR F/U ADENOCARCINOMA OF THE CECUM 06/19/2024 10:30 AM EST Office Visit Orthopaedics- Les Valencia 615 [facility] [address] [place] [phone] Karly Bautista PA [address] [place] [address] annual visit from date of surgery May/Jul 2024 for bilateral TKA and right LIZZ with Karly. documented as of this encounter Visit Diagnoses Diagnosis Primary hypertension- Primary Unspecified essential hypertension documented in this encounter Care Teams Pelletizer Operator Relationship Specialty Start Date End Date Baljit Ozuna MD PCP - General 03/12/22 06/17/22 documented as of this encounter
--- OUTSIDE RECORDS SUMMARY | 2024-01-13 03:19 | XMS_ITS | Encounter Summary ---
Author Organization Jose Alejandro Kit [facility] de[facility] Address [address] [place] [address] Care Team Providers Care Architecture Instructor Name Role Phone Baljit Ozuna MD Primary Care Provider [phone] Reason for Visit * Treatment Plan and Therapy Plan (Routine) - Closed Specialty Diagnoses / Procedures Referred By Contac t Referred To Contact Diagnoses Iron deficiency anemia, unspecified iron deficiency anemia type Georgi Butterfield MD [address] [place] [address] [facility]fusion Therapy 8950 [facility] 100 [place] [address] Referral ID Status Reason Start Date Expiration Date Visits Re quested Visits Authorized [id number] Closed 04/13/2022 04/13/2023 1 2 Encounter Details Date Type Department Care Team (Latest Contact Info) Description 04/20/2022 1:33 PM EST - 04/20/2022 11:59 PM [facility] Hospital Encounter [facility] INFUSION THERAPY 8950 [facility] [address] [place] [address] Iron deficiency anemia, unspecified iron [...] Visit Neurology - [facility] 2[address] [facility] [address] [place] [address] Martell Calderon MD 2145 [facility] [address] [place] [address] TREMORS/ MEDICARE, FOR LIFE 03/28/2024 8:30 AM EDT Office Visit Primary Care - [address] [address] Cheo Santoyo DO 1112 [place] [phone] AWV 04/06/2024 9:45 AM EST Lab [facility] - [facility] 2084 [facility] [address] [place] [address] CBCMP,CEA,FEST 04/06/2024 10:15 AM EST Office Visit [facility] - [facility] 2084 [facility] [address] [place] [address] Georgi Butterfield MD [address] [place] [address] 6 MTH FU W/LABS, REV SCAN 04/13/2024 9:30 AM EST Office Visit Surgical Oncology - [facility] 2084 [facility] [address] [place] [address] Delvis Cheek MD 125 [facility] [address] [place] [address] 1 YEAR F/U ADENOCARCINOMA OF THE CECUM 06/19/2024 10:30 AM EST Office Visit Orthopaedics- Les Valencia 615 [facility] [address] [place] [address] Karly Bautista, BURT [address] [place] [address] annual visit from date of [...] mL/hr documented in this encounter Care Teams Architecture Instructor Relationship Specialty Start Date End Date Baljit Ozuna MD PCP - General 03/12/22 06/17/22 documented as of this encounter
--- OUTSIDE RECORDS SUMMARY | 2024-01-13 03:19 | XMS_ITS | Encounter Summary ---
Author Organization Jose Alejandro Kit [facility] Address [address] [place] [address] Care Team Providers Care Graphic Design Teacher Name Role Phone Felicitas Monaco MD Primary Care Provider [phone] Encounter Details Date Type Department Care Team (Late st Contact Info) Description 06/10/2022 Abstract [facility] - [facility]. 8950 [facility] [address] [place] [address] Georgi Butterfield MD [address] [place] [address] Social History Tobacco Use Types [...] Dr. [address] [place] [address] Martell Calderon MD 2144 [facility] [place] [address] [place] [address] TREMORS/ MEDICARE, FOR LIFE 03/28/2024 8:30 AM EDT Office Visit Primary Care - [address] [address] Cheo Santoyo DO 1112 [place] [phone] AWV 04/06/2024 9:45 AM EST Lab [place] [facility] - [facility] 2084 [facility] [address] [place] [address] CBCMP,CEA,FEST 04/06/2024 10:15 AM EST Office Visit [place] [facility] - [facility] 2084 [facility] [address] [place] [address] Georgi Butterfield MD [address] [place] [address] 6 MTH FU W/LABS, REV SCAN 04/13/2024 9:30 AM EST Office Visit Surgical Oncology - [facility] 2084 [facility] [address] [place] [address] Delvis Cheek MD 125 [facility] [address] [place] [address] 1 YEAR F/U ADENOCARCINOMA OF THE CECUM 06/19/2024 10:30 AM EST Office Visit Orthopaedics- Les Valencia 615 [address] [facility] [address] [place] [address] Karly Bautista PA [address] [place] [address] annual visit from date of surgery May/Jul 2024 for bilateral TKA and right LIZZ with Karly. documented as of this encounter Visit Diagnoses Not on filedocumented in this encounter Care Teams Graphic Design Teacher Relationship Specialty Start Date End Date Felicitas Monaco MD PCP - General Family Medicine 06/18/22 07/05/23 documented as of this encounter
--- OUTSIDE RECORDS SUMMARY | 2024-01-13 03:19 | XMS_ITS | Encounter Summary ---
Author Organization Jose Alejandro Kit [facility] Address [address] [place] [address] Care Team Providers Care Concrete Mixer Operator Helper Name Role Phone Baljit Ozuna MD Primary Care Provider [phone] Reason for Visit * Reason Onset Date Comments Advice Only 04/15/2022 Encounter Details Date Type Department Care Team (Late Contact Info) Description 04/15/2022 Telephone [facility] - [facility] 125 [facility] 280 [place] [address] Delvis Cheek MD 125 [facility] 660 [place] [address] Advice Only Social History Tobacco [...] Dr. [address] [place] [address] Martell Calderon MD 2144 [facility] [address] [place] [address] TREMORS/ MEDICARE, FOR LIFE 03/28/2024 8:30 AM EDT Office Visit Primary Care - [address] [address] Cheo Santoyo DO [address] [place] [phone] AWV 04/06/2024 9:45 AM EST Lab [facility] - [facility] 2084 [facility] [address] [place] [address] CBCMP,CEA,FEST 04/06/2024 10:15 AM EST Office Visit [facility] - [facility] 20[address] [facility] [address] [place] [address] Georgi Butterfield MD [address] [place] [address] 6 MTH FU W/LABS, REV SCAN 04/13/2024 9:30 AM EST Office Visit Surgical Oncology - [facility] 20[address] [facility] [address] [place] [address] Delvis Cheek MD 125 [facility] 660 [place] [address] 1 YEAR F/U ADENOCARCINOMA OF THE CECUM 06/19/2024 10:30 AM EST Office Visit Orthopaedics- Les Valencia [address] [facility] [address] [place] [address] Karly Bautista, BURT [address] [place] [address] annual visit from date of surgery May/Jul 2024 for bilateral TKA and right LIZZ with Karly. documented as of this encounter Visit Diagnoses Not on filedocumented in this encounter Care Teams Concrete Mixer Operator Helper Relationship Specialty Start Date End Date Baljit Ozuna MD PCP - General 03/12/22 06/17/22 documented as of this encounter
--- OUTSIDE RECORDS SUMMARY | 2024-01-13 03:19 | XMS_ITS | Encounter Summary ---
Author Organization Jose Alejandro Pantoja [facility] Address [address] [place] [address] Care Team Providers Care Bench Assembler Operator Name Role Phone Cheo Santoyo Primary Care Provider [phone] Encounter Details Date Type Department Care Team (Late st Contact Info) Description 09/16/2021 Legacy Historical Encounter [facility] HISTORICAL CONVERSIONS [address] [place], [place] [address] Georgi Andersen, PA 2093 [facility] [address] [place], [place] [phone] Social History Tobacco Use Types Packs/Day Years [...] Hospital 2144 [facility] [address] [place] [address] Martell Calderon MD 214 [facility] [address] [place] [address] TREMORS/ MEDICARE, FOR LIFE 03/28/2024 8:30 AM EDT Office Visit Primary Care - [address] [address] Cheo Santoyo, 1112 [place] [address] AWV 04/06/2024 9:45 AM EST Lab [facility] - [facility] 2084 [facility] [address] [place] [address] CBCMP,CEA,FEST 04/06/2024 10:15 AM EST Office Visit [facility] - [facility] 2084 [facility] [address] [place] [address] Georgi Butterfield MD [address] [place] [address] 6 MTH FU W/LABS, REV SCAN 04/13/2024 9:30 AM EST Office Visit Surgical Oncology - [facility] 2083 [facility] [address] [place] [address] Delvis Cheek MD 125 [facility] 660 [place] [address] 1 YEAR F/U ADENOCARCINOMA OF THE CECUM 06/19/2024 10:30 AM EST Office Visit Orthopaedics- Les Valencia 615 [facility] [address] [place] [address] Karly Bautista PA [address] [facility] 301 [place] [address] annual visit from date of surgery May/Jul 2024 for bilateral TKA and right LIZZ with Karly. documented as of this encounter Visit Diagnoses Not on filedocumented in this encounter Care Teams Bench Assembler Operator Relationship Specialty Start Date End Date Cheo Santoyo DO [address] [place] [address] PCP - General Family Medicine 07/06/23 documented as of this encounter
--- OUTSIDE RECORDS SUMMARY | 2024-01-13 03:19 | XMS_ITS | Encounter Summary ---
Author Organization Jose Alejandro Raymundolinnea [facility] Address [address] [place] [address] Care Team Providers Care Roller Maker Name Role Phone Unavailable Primary Care Provider Unavailabl e Encounter Details Date Type Department Care Team (Late st Contact Info) Description 10/03/2021 6:07 PM EDT - 10/03/2021 11:59 PM EDT Hospital Encounter [facility] HISTORICAL CONVERSIONS [address] [place], [place] [address] Georgi Andersen, PA [address] [place] [address] Social History Tobacco Use Types Packs/Day Years [...] Visit Neurology - [address] 2144 [facility] [address] [place] [address] Martell Calderon MD 2144 [facility] [address] [place] [address] TREMORS/ MEDICARE, FOR LIFE 03/28/2024 8:30 AM EDT Office Visit Primary Care - [address] [phone] Cheo Santoyo, DO 1112 [place] [address] AWV 04/06/2024 9:45 AM EST Lab [facility] - [facility] [address] [facility] [address] [place] [address] CBCMP,CEA,FEST 04/06/2024 10:15 AM EST Office Visit [facility] - [facility] [address] [facility] [address] [place] [address] Georgi Butterfield MD 3510 [facility] 17N [facility] 225 [place], [place] [address] 6 MTH FU W/LABS, REV SCAN 04/13/2024 9:30 AM EST Office Visit Surgical Oncology - [facility] [address] [facility] [address] [place] [address] Delvis Cheek MD 125 [facility] [address] [place] [address] 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 [address] [place] [address] Karly Bautista PA 180 [facility] 301 [place] [address] annual visit from date of [...]
--- OUTSIDE RECORDS SUMMARY | 2024-01-13 03:19 | XMS_ITS | Encounter Summary ---
Author Organization Jose Alejandro Pantoja [facility] Address [address] [place] [address] Care Team Providers Care Solar Sales Specialist Name Role Phone Baljit Ozuna MD Primary Care Provider [phone] Encounter Details Date Type Department Care Team (Late st Contact Info) Description 03/23/2022 10:07 AM EDT - 03/23/2022 11:59 PM EDT Hospital Encounter [facility] HISTORICAL CONVERSIONS [address] [place] [address] Georgi Butterfield MD 3510 [facility] [address] [place], [place] [phone] Social History Tobacco Use Types Packs/Day Years [...] Visit Neurology - [facility] [address] [facility] [address] [place] [address] Martell Calderon MD 2144 [facility] [address] [place], [place] [address] TREMORS/ MEDICARE, FOR LIFE 03/28/2024 8:30 AM EDT Office Visit Primary Care - [address] [phone] Cheo Santoyo, [address] [address] AWV 04/06/2024 9:45 AM EST Lab [facility] - [facility] 2084 [facility] [address] [place] [address] CBCMP,CEA,FEST 04/06/2024 10:15 AM EST Office Visit [facility] - [facility] 2084 [facility] [address] [place] [address] Georgi Butterfield MD [address] [place] [address] 6 MTH FU W/LABS, REV SCAN 04/13/2024 9:30 AM EST Office Visit Surgical Oncology - [facility] 2081 [facility] [address] [place] [address] Delvis Cheek MD 125 [facility] 660 [place] [address] 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 [address] [place] [address] Karly Bautista, BURT 180 [facility] 301 [place] [address] annual visit from date of surgery May/Jul 2024 for bilateral TKA and right LIZZ with Karly. documented as of this encounter Visit Diagnoses Not on filedocumented in this encounter Care Teams Solar Sales Specialist Relationship Specialty Start Date End Date Baljit Ozuna MD PCP - General 03/12/22 06/17/22 documented as of this encounter
--- OUTSIDE RECORDS SUMMARY | 2024-01-13 03:19 | XMS_ITS | Encounter Summary ---
Author Organization Jose Alej[facility] Address [address] [place] [address] Care Team Providers Care Respiratory Director Name Role Phone YarelisCheo friend Moshe REYES Primary Care Provider [phone] Encounter Details Date Type Department Care Team [...] Neurology - [facility] [address] [facility] [address] [place] [address] Martell Calderon MD 2144 [facility] [address] [place] [address] TREMORS/ MEDICARE, FOR LIFE 03/28/2024 8:30 AM EDT Office Visit Primary Care - [address] [phone] Cheo Santoyo, [address] [address] AWV 04/06/2024 9:45 AM EST Lab [facility] - [facility] [address] [facility] [address] [place] [address] CBCMP,CEA,FEST 04/06/2024 10:15 AM EST Office Visit [place] - [facility] [address] [facility] [address] [place] [address] Georgi Butterfield MD [address] [place] [address] 6 MTH FU W/LABS, REV SCAN 04/13/2024 9:30 AM EST Office Visit Surgical Oncology - [facility] 2084 [facility] [address] [place] [address] Delvis Cheek MD 125 [facility] 660 [place] [address] 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 [address] [place] [address] Karly Bautista, BURT 180 [facility] 301 [place] [address] annual visit from date of surgery May/Jul 2024 for bilateral TKA and right LIZZ with Karly. documented as of this encounter Visit Diagnoses Not on filedocumented in this encounter Care Teams Respiratory Director Relationship Specialty Start Date End Date Cheo Santoyo DO [address] [place] [phone] PCP - General Family Medicine 07/06/23 documented as of this encounter
--- OUTSIDE RECORDS SUMMARY | 2024-01-13 03:19 | XMS_ITS | Encounter Summary ---
Author Organization [facility] Address [address] [place] [address] Care Team Providers Care Specimen Boss Name Role Phone Baljit Ozuna MD Primary Care Provider [phone] Encounter Details Date Type Department Care Team (Late st Contact Info) Description 04/09/2022 Abstract [place] [facility] - [facility]. [address] [facility] [address] [place] [address] Georgi Butterfield MD [address] [place] [address] Social History Tobacco Use Types [...] Dr. [address] [place] [address] Martell Calderon MD [address] [place] [address] TREMORS/ MEDICARE, FOR LIFE 03/28/2024 8:30 AM EDT Office Visit Primary Care - [facility] [address] [place] [address] Cheo Santoyo DO 1112 [place] [address] AWV 04/06/2024 9:45 AM EST Lab [place] [facility] - [facility] [address] [facility] [address] [place] [address] CBCMP,CEA,FEST 04/06/2024 10:15 AM EST Office Visit [place] - [facility] [address] [facility] [address] [place] [address] Georgi Butterfield MD 3510 [facility] [address] [place], [place] [phone] 6 MTH FU W/LABS, REV SCAN 04/13/2024 9:30 AM EST Office Visit Surgical Oncology - [facility] [address] [facility] [address] [place] [address] Delvis Cheek MD 125 [facility] 660 [place] [address] 1 YEAR F/U ADENOCARCINOMA OF THE CECUM 06/19/2024 10:30 AM EST Office Visit Orthopaedics- Les Valencia [address] [facility] [address] [place] [address] Karly Bautista PA [address] [place] [address] annual visit from date of surgery May/Jul 2024 for bilateral TKA and right LIZZ with Karly. documented as of this encounter Visit Diagnoses Not on filedocumented in this encounter Care Teams Specimen Boss Relationship Specialty Start Date End Date Baljit Ozuna MD PCP - General 03/12/22 06/17/22 documented as of this encounter
--- OUTSIDE RECORDS SUMMARY | 2024-01-13 03:19 | XMS_ITS | Encounter Summary ---
Author Organization Jose Alejandro [facility] Address [address] [place] [address] Care Team Providers Care Corduroy Brusher Operator Name Role Phone Unavailable Primary Care Provider Unavailabl e Encounter Details Date Type Department Care Team (Late st Contact Info) Description 10/02/2021 1:34 PM EDT - 10/02/2021 11:59 PM EDT Hospital Encounter RS HISTORICAL CONVERSIONS [address] [place], [place] [address] Georgi Andersen, PA [address] [place] [address] Social History Tobacco Use Types Packs/Day Years [...] Visit Neurology - [address] 2144 [facility] [address] [place] [address] Martell Calderon MD 2144 [facility] [address] [place] [address] TREMORS/ MEDICARE, FOR LIFE 03/28/2024 8:30 AM EDT Office Visit Primary Care - [address] [phone] Cheo Santoyo, DO 1112 [place] [address] AWV 04/06/2024 9:45 AM EST Lab [place] [facility] - [facility] [address] [facility] [address] [place] [address] CBCMP,CEA,FEST 04/06/2024 10:15 AM EST Office Visit [place] [facility] - [facility] [address] [facility] [address] [place] [address] Georgi Butterfield MD 3510 [facility] 17N [facility] 225 [place], [place] [phone] 6 MTH FU W/LABS, REV SCAN 04/13/2024 9:30 AM EST Office Visit Surgical Oncology - [facility] [address] [facility] [address] [place] [address] Delvis Cheek MD 125 [facility] [address] [place] [address] 1 YEAR F/U ADENOCARCINOMA OF THE CECUM 06/19/2024 10:30 AM EST Office Visit Orthopaedics- Les Valencia [address] [facility] [address] 100 [place] [address] Karly Bautista, BURT [address] [place] [address] annual visit from date of [...] Date and Time: 10/02/21 15:09 Georgi [facility] MRI ORDERABLES documented in this encounter Visit Diagnoses Not on filedocumented in this encounter
--- OUTSIDE RECORDS SUMMARY | 2024-01-13 03:19 | XMS_ITS | Encounter Summary ---
Author Organization Jose Alejandro Kit [facility] Address [address] [place] [address] Care Team Providers Care Labor Mediator Name Role Phone Felicitas Monaco MD Primary Care Provider [phone] Reason for Visit * Auth/Cert (Routine) Specialty Diagnoses / Procedures Referred By Rachid reid Referred To Contact Diagnoses Unilateral primary osteoarthritis, right hip Procedures CT ARTHROCENTESIS ASPIR&/INJ MAJOR JT/BURSA W/O US Martinez Guthrie MD [address] [place] [phone] Referral ID Status Reason Start Date Expiration Date Visits Re quested Visits Authorized [id number] 05/26/2022 1 1 Encounter Details Date Type Department Care Team (Late st Contact Info) Description 06/18/2022 8:10 AM EST - 06/18/2022 8:20 AM EST Surgery [facility] PA[facility] MGMT OR 2094 [place], [place] [phone] Martinez Guthrie MD [address] [place] [address] INTRA ARTICULAR HIP RIGHT HIP Surgery [...] Everywhere. * Bursa Injection: Trochanteric: General Info (Swedish) * RICE: General Info (Swedish) documented in this encounter Medications at [...] - [facility] [address] [facility] [address] [place] [address] Martell Calderon MD 2144 [facility] [address] [place] [address] TREMORS/ MEDICARE, FOR LIFE 03/28/2024 8:30 AM EDT Office Visit Primary Care - [address] [address] Cheo Santoyo DO 1112 [place] [address] AWV 04/06/2024 9:45 AM EST Lab [facility] - [facility] 2084 [facility] [address] [place] [address] CBCMP,CEA,FEST 04/06/2024 10:15 AM EST Office Visit [place] [facility] - [facility] 2084 [facility] [address] [place] [address] Georgi Butterfield MD 3510 [facility] [address] [place] [address] 6 MTH FU W/LABS, REV SCAN 04/13/2024 9:30 AM EST Office Visit Surgical Oncology - [facility] [address] [facility] 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 [address] [place] [address] Karly Bautista, PA [address] [facility] [address] [place] [address] annual visit from date of surgery May/Jul 2024 for bilateral TKA and right LIZZ with Karly. documented as of this encounter Procedures Procedure Name Priority Date/Time Associated Diagnosis Comments CT ARTHROCENTESIS ASPIR&/INJ MAJOR JT/BURSA W/O US 06/18/2022 [...] MD) documented in this encounter Care Teams Labor Mediator Relationship Specialty Start Date End Date Felicitas Monaco MD PCP - General Family Medicine 06/18/22 07/05/23 documented as of this encounter
--- OUTSIDE RECORDS SUMMARY | 2024-01-13 03:19 | XMS_ITS | Encounter Summary ---
Author Organization Jose Alejandro [facility] Address [address] [place] [address] Care Team Providers Care Data Technical Lead Name Role Phone Baljit Ozuna MD Primary Care Provider [phone] Reason for Visit * Reason Onset Date Comments Other 06/15/2022 Encounter Details Date Type Department Care Team (Late st Contact Info) Description 06/15/2022 Telephone Orthopaedics - [address] [place] [address], [address] [place] [address] Dave Lynne Jr., MD [address] [facility] 200 [place] [address] Other Social History Tobacco Use [...] Dr. [address] [place] [address] Martell Calderon MD [address] [facility] [place] [facility] [address] [place] [address] TREMORS/ MEDICARE, FOR LIFE 03/28/2024 8:30 AM EDT Office Visit Primary Care - [facility] [address] [place] [address] Cheo Santoyo, DO 1112 [place] [address] AWV 04/06/2024 9:45 AM EST Lab [place] [facility] - [facility] 2084 [facility] [address] [place] [address] CBCMP,CEA,FEST 04/06/2024 10:15 AM EST Office Visit [place] [facility] - [facility] 2084 [facility] [address] [place] [address] Georgi Butterfield MD 3510 [facility] [address] [place], [place] [address] 6 MTH FU W/LABS, REV SCAN 04/13/2024 9:30 AM EST Office Visit Surgical Oncology - [facility] 2084 [facility] [address] [place] [address] Delvis Cheek MD 125 [facility] 660 [place] [address] 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 documented as of this encounter Visit Diagnoses Not on filedocumented in this encounter Care Teams Data Technical Lead Relationship Specialty Start Date End Date Baljit Ozuna MD PCP - General 03/12/22 06/17/22 documented as of this encounter
--- OUTSIDE RECORDS SUMMARY | 2024-01-13 03:19 | XMS_ITS | Encounter Summary ---
Author Organization Jose Alejandro [facility] Address [address] [place] [address] Care Team Providers Care Suede Brusher Name Role Phone Baljit Ozuna MD Primary Care Provider [phone] Encounter Details Date Type Department Care Team [...] Dr. [address] [place] [address] Martell Calderon MD [address] [place] [address] TREMORS/ MEDICARE, FOR LIFE 03/28/2024 8:30 AM EDT Office Visit Primary Care - [facility] 1112 [place] [address] Cheo Santoyo DO 1112 [place] [address] AWV 04/06/2024 9:45 AM EST Lab [place] [facility] - [facility] 20[address] [facility] [address] [place] [address] CBCMP,CEA,FEST 04/06/2024 10:15 AM EST Office Visit [place] [facility] - [facility] 20[address] [facility] [address] [place] [address] Georgi Butterfield MD 3510 [facility] [address] [place] [address] 6 MTH FU W/LABS, REV SCAN 04/13/2024 9:30 AM EST Office Visit Surgical Oncology - [facility] 2084 [facility] [address] [place] [address] Delvis Cheek MD 125 [facility] 660 [place] [address] 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 documented as of this encounter Visit Diagnoses Not on filedocumented in this encounter Care Teams Suede Brusher Relationship Specialty Start Date End Date Baljit Ozuna MD PCP - General 10/13/22 1/18/23 documented as of this encounter
--- OUTSIDE RECORDS SUMMARY | 2024-01-13 03:19 | XMS_ITS | Encounter Summary ---
Author Organization Jose Alejandro Raymundolinnea [facility] Address [address] [place] [address] Care Team Providers Care Medical Assistant Dermatology Name Role Phone Baljit Ozuna MD Primary Care Provider [phone] Reason for Visit * Reason Comments Injections B/L Supartz injectio ns #4 Encounter Details Date Type Department Care Team (Late st Contact Info) Description 04/10/2022 9:30 AM EST Nurse Only Orthopaedics - [address] [place] [address] Georgi Andersen PA [address] [place] [address] Primary osteoarthritis of left knee (Primary Dx); [...] EDT [facility] [address] [facility] [facility] [address] [place] [address] Martell Calderon MD 2144 [facility] [address] [place] [address] TREMORS/ MEDICARE, FOR LIFE 03/28/2024 8:30 AM EDT Office Visit Primary Care - [address] [address] Cheo Santoyo, DO 1112 [place] [address] AWV 04/06/2024 9:45 AM EST Lab [place] [facility] - [facility] 20[address] [facility] [address] [place] [address] CBCMP,CEA,FEST 04/06/2024 10:15 AM EST Office Visit [place] [facility] - [facility] 20[address] [facility] [address] [place] [address] Georgi Butterfield MD [address] [place] [address] 6 MTH FU W/LABS, REV SCAN 04/13/2024 9:30 AM EST Office Visit Surgical Oncology - [facility] [address] [facility] [address] [place] [address] Delvis Cheek MD 125 [facility] 660 [place] [address] 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 documented as of this encounter Visit Diagnoses Diagnosis Primary osteoarthritis of left knee- Primary Primary localized osteoarthrosis, lower leg Primary osteoarthritis of right knee Primary localized osteoarthrosis, lower leg documented in this encounter Care Teams Medical Assistant Dermatology Relationship Specialty Start Date End Date Baljit Ozuna MD PCP - General 03/12/22 06/17/22 documented as of this encounter
--- OUTSIDE RECORDS SUMMARY | 2024-01-13 03:19 | XMS_ITS | Encounter Summary ---
Author Organization Jose Alejandro Kit [facility] Address [address] [place] [address] Care Team Providers Care Coal Shooter Name Role Phone Baljit Ozuna MD Primary Care Provider [phone] Reason for Visit * Reason Onset Date Comments Injections 05/15/202206/18 RT HIP IA INJ Encounter Details Date Type Department Care Team (Late st Contact Info) Description 05/15/2022 Telephone Neurosurgery & Spine - [address] [facility] [address] [place] [address] Martinez Guthrie MD 2145 [facility] [address] [place] [address] Injections (06/18 RT HIP IA [...] Neurology - [address] [facility] [address] [address] [place] [address] Martell Calderon MD [address] [facility] [address] [place] [address] TREMORS/ MEDICARE, FOR LIFE 03/28/2024 8:30 AM EDT Office Visit Primary Care - [address] [phone] Cheo Santoyo, DO 1112 [place] [address] AWV 04/06/2024 9:45 AM EST Lab [place] [facility] - [facility] [address] [facility] [address] [place] [address] CBCMP,CEA,FEST 04/06/2024 10:15 AM EST Office Visit [place] [facility] - [facility] [address] [facility] [address] [place] [address] Georgi Butterfield MD 3510 [facility] [address] [place], [place] [address] 6 MTH FU W/LABS, REV SCAN 04/13/2024 9:30 AM EST Office Visit Surgical Oncology - [facility] [address] 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 documented as of this encounter Visit Diagnoses Not on filedocumented in this encounter Care Teams Coal Shooter Relationship Specialty Start Date End Date Baljit Ozuna MD PCP - General 03/12/22 06/17/22 documented as of this encounter
--- OUTSIDE RECORDS SUMMARY | 2024-01-13 03:19 | XMS_ITS | Encounter Summary ---
Author Organization Jose Alejandro Raymundolinnea [facility] Address [address] [place] [address] Care Team Providers Care Plumbing Contractor Name Role Phone Baljit Ozuna MD Primary Care Provider [phone] Reason for Referral * Imaging (Routine) - Closed Specialty Diagnoses / Procedures Referred By Rachid jimenez Referred To Contact Radiology Diagnoses Right hip pain Procedures IR INJ ARTHROGRAM HIP RIGHT Georgi Andersen PA [address] [facility] [address] [place] [address] Referral ID Status Reason Start Date Expiration Date Visits Re quested Visits Authorized [id number] Closed 04/21/2022 04/21/2023 1 1 Reason for Visit * Auth/Cert (Routine) Specialty Diagnoses / Procedures Referred By Rachid jimenez Referred To Contact [facility] [address] [place] [address] [address] Referral ID Status Reason Start Date Expiration Date Visits Re quested Visits Authorized [id number] 1 1 Encounter Details Date Type Department Care Team (Latest Contact Info) Description 04/29/2022 12:30 PM EST - 04/29/2022 12:38 PM EST Hospital Encounter [facility] Interventional Radiology [address] [place] [address] Midlevel, [facility] Right hip pain Discharge [...] Office Visit Neurology - [address] [place] [address] Martell Calderon MD 5 [facility] [address] [place] [address] TREMORS/ MEDICARE, FOR LIFE 03/28/2024 8:30 AM EDT Office Visit Primary Care - [facility] [address] [place] [address] Cheo Santoyo, DO 1112 [place] [address] AWV 04/06/2024 9:45 AM EST Lab [place] [facility] - [facility] 2084 [facility] [address] [place] [address] CBCMP,CEA,FEST 04/06/2024 10:15 AM EST Office Visit [place] [facility] - [facility] 2084 [facility] [address] [place] [address] Georgi Butterfield MD [address] [place] [address] 6 MTH FU W/LABS, REV SCAN 04/13/2024 9:30 AM EST Office Visit Surgical Oncology - [facility] 2084 [facility] [address] [place] [address] Delvis Cheek MD 125 [facility] 660 [place] [address] 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 [address] [place] [address] Karly Bautista PA [address] [place] [address] annual visit from date of [...] MR Arthrogram PROCEDURE PERFORMED BY: Georgi Santoyo [facility] SUPERVISING PHYSICIAN: Dr. Potts TECHNIQUE AND FINDINGS: [...] Right Hip MR Arthrogram PROCEDURE PERFORMED BY: CHRISTAL Miner SUPERVISING PHYSICIAN: Dr. Potts TECHNIQUE AND [...] mLs documented in this encounter Care Teams Plumbing Contractor Relationship Specialty Start Date End Date Baljit Ozuna MD PCP - General 03/12/22 06/17/22 documented as of this encounter
--- OUTSIDE RECORDS SUMMARY | 2024-01-13 03:19 | XMS_ITS | Encounter Summary ---
Author Organization Jose Alejandro Kit [facility] Address [address] [place] [address] Care Team Providers Care Incinerator Plant Laborer Name Role Phone Baljit Ozuna MD Primary Care Provider [phone] Encounter Details Date Type Department Care Team (Late st Contact Info) Description 04/13/2022 Orders Only [facility] - Emiliano [facility]. [address] [facility] [address] [place] [address] Georgi Butterfield MD [address] [place] [address] Social History Tobacco Use Types [...] AM EDT Office Visit Neurology - Maryan [address] [facility] [address] [address] [place] [address] Martell Calderon MD [address] [facility] [address] [place] [address] TREMORS/ MEDICARE, FOR LIFE 03/28/2024 8:30 AM EDT Office Visit Primary Care - [address] [phone] Cheo Santoyo DO [address] [place] [address] AWV 04/06/2024 9:45 AM EST Lab [facility] - [facility] [address] [facility] [address] [place] [address] CBCMP,CEA,FEST 04/06/2024 10:15 AM EST Office Visit [facility] - [facility] [address] [facility] [address] [place] [address] Georgi Butterfield MD [address] [place], [place] [address] 6 MTH FU W/LABS, REV SCAN 04/13/2024 9:30 AM EST Office Visit Surgical Oncology - [facility] [address] [facility] [address] [place] [address] Delvis Cheek MD 125 [facility] [address] [place] [phone] 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 documented as of this encounter Visit Diagnoses Not on filedocumented in this encounter Care Teams Incinerator Plant Laborer Relationship Specialty Start Date End Date Baljit Ozuna MD PCP - General 03/12/22 06/17/22 documented as of this encounter
--- OUTSIDE RECORDS SUMMARY | 2024-01-13 03:19 | XMS_ITS | Encounter Summary ---
Author Organization Jose Alejandro Raymundolinnea [facility] Address [address] [place] [address] Care Team Providers Care Yarn Texture Machine Operator Name Role Phone Baljit Ozuna MD Primary Care Provider [phone] Reason for Referral * Eval and Treat (Routine) - Closed Specialty Diagnoses / Procedures Referred By Contosman jimenez Referred To Contact Physical Therapy Diagnoses Primary osteoarthritis of right hip Tear of acetabular labrum, right, initial encounter Dave Lynne Jr., MD [address] [facility] [address] [place] [address] PT/OT, [facility] PT /Davin Rivera [address] [facility] [address] [place] [address] Referral ID Status Reason Start Date Expiration Date V isits Requested Visits Authorized [id number] Closed Specialty Services Required 05/12/2022 11/08/2022 1 1 Scheduling Instructions Evaluate and treat for right hip pain. 2-3 times a week for 6 weeks. ROM. STRENGTH. MODALITIES. [facility] [address] [facility] [address] [facility] [address] Question Answer Reason For External Referral? [...] MD [address] [place] [address] Martinez Guthrie MD [address] [facility] [address] [place] [phone] Referral ID Status Reason Start Date Expiration Date V isits Requested Visits Authorized [id number] Closed Specialty Services Required 05/12/2022 05/12/2023 1 1 Scheduling Instructions Right hip IA injection Martinez Guthrie MD, Neurosurgery & Spine - [facility] [place] [address] - [address] [facility] [address] [address] [place] [address] Question Answer My clinical question is: right hip IA injection Comments The patient can be scheduled with any member of the group, including the provider with the first available appointments. Reason for Visit * Reason Comments Follow-up Right hip mri follow [place] Encounter Details Date Type Department Care Team (Late st Contact Info) Description 05/12/2022 9:35 AM EST Office Visit Orthopaedics - Maryan [address] [place] [address] Dave Lynne Jr., MD [address] [place] [address] Primary osteoarthritis of right hip (Primary Dx); [...] PATIENT CC: Follow-up (Right hip mri follow [place]) HPI: Martínez Toribio is a 67 y.o. year old male who presents for evaluation of after undergoing a righthip mri at [place] to evaluate for internal derangements. Recently finished [...] Impingement Mildly Positive Hip Scouring Mildly Positive Uwovza-0-ahtxuzjm Negative Extension ER Negative KATLYN Test Negative [...] Sensation intact light touch distally Radiology:mri at [place] EXAMINATION: MRI arthrogram right hip DATE: 04/29/22 INDICATION: Right hip pain. COMPARISON: None. TECHNIQUE: Fat saturated T1, T2 images in the axial, coronal, oblique axial and oblique coronal planes were obtained of the RIGHT hip after intra articular injection of gadolinium contrast. Small mcjgo-gb-olbb sagittal T1 fat-sat. Large field of view [...] right hip M16.11 Ambulatory referral to [facility] 2. Tear of acetabular labrum, right, initial encounter S73.191A Ambulatory referral to [facility] Treatment Plan: Patient's issue with the right [...] This Encounter Procedures Ambulatory referral to [facility] Follow-up: Return in about 6 weeks (around [...] Visit Neurology - [facility] [address] [facility] [address] [place] [address] Martell Calderon MD 2144 [facility] [address] [place] [address] TREMORS/ MEDICARE, FOR LIFE 03/28/2024 8:30 AM EDT Office Visit Primary Care - [address] [address] Cheo Santoyo DO [address] [place] [address] AWV 04/06/2024 9:45 AM EST Lab [facility] - [facility] [address] [facility] [address] [place] [address] CBCMP,CEA,FEST 04/06/2024 10:15 AM EST Office Visit [facility] - [facility] [address] [facility] [address] [place] [address] Georgi Butterfield MD [address] [place] [address] 6 MTH FU W/LABS, REV SCAN 04/13/2024 9:30 AM EST Office Visit Surgical Oncology - [facility] [address] [facility] [address] [place] [address] Delvis Cheek MD 125 [facility] 660 [place] [address] 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 Scheduled Referrals Name Type Priority Associated Diagnoses Orde r Schedule Ambulatory referral to Neurosurgery Outpatient Referral Routine Primary osteoarthritis of right hip Tear of acetabular labrum, right, initial encounter Ordered: 05/12/2022 [facility] Physical Therapy - [address] Outpatient Referral Routine Primary osteoarthritis of right hip Tear of acetabular labrum, right, initial encounter Ordered: 05/12/2022 documented as of this encounter Visit Diagnoses Diagnosis Primary osteoarthritis of right hip- Primary Primary localized osteoarthrosis, pelvic region and thigh Tear of acetabular labrum, right, initial encounter documented in this encounter Care Teams Yarn Texture Machine Operator Relationship Specialty Start Date End Date Baljit Ozuna MD PCP - General 03/12/22 06/17/22 documented as of this encounter
--- OUTSIDE RECORDS SUMMARY | 2024-01-13 03:19 | XMS_ITS | Encounter Summary ---
Author Organization Jose Alejandro Raymundolinnea [facility] Address [address] [place] [address] Care Team Providers Care Bull Gang Worker Name Role Phone Cheo Santoyo Primary Care Provider [phone] Encounter Details Date Type Department Care Team (Late st Contact Info) Description 10/28/2021 Legacy Historical Encounter [facility] HISTORICAL CONVERSIONS [address] [place], [place] [id number] Dave Lynne Jr., MD [address] [place], [place] [address] Social History Tobacco Use Types Packs/Day Years Used Date Smoking Tobacco: Never Assessed [facility] Utilities Answer Date Recorded In the past 12 months has [employer], gas, oil, or water company threatened [...] Hospital [address] [facility] [address] [place] [address] Martell Calderon MD 2144 [facility] [address] [place], [place] [address] TREMORS/ MEDICARE, FOR LIFE 03/28/2024 8:30 AM EDT Office Visit Primary Care - [address] [phone] Cheo Santoyo [address] [place] [address] AWV 04/06/2024 9:45 AM EST Lab [facility] - [facility] 20[address] [facility] [address] [place] [address] CBCMP,CEA,FEST 04/06/2024 10:15 AM EST Office Visit [facility] - [facility] 20[address] [facility] [address] [place] [address] Georgi Butterfield MD [address] [place] [address] 6 MTH FU W/LABS, REV SCAN 04/13/2024 9:30 AM EST Office Visit Surgical Oncology - [facility] 20[address] [facility] [address] [place] [address] Delvis Cheek MD 125 [facility] 660 [place] [address] 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 documented as of this encounter Visit Diagnoses Not on filedocumented in this encounter Care Teams Bull Gang Worker Relationship Specialty Start Date End Date Cheo Santoyo DO [address] [place] [phone] PCP - General Family Medicine 07/06/23 documented as of this encounter
--- OUTSIDE RECORDS SUMMARY | 2024-01-13 03:19 | XMS_ITS | Encounter Summary ---
Author Organization Jose Alejandro Ray[facility]olinnea [facility] Address [address] [place] [address] Care Team Providers Care Intensive Care Unit Nurse Name Role Phone Baljit Ozuna MD Primary Care Provider [phone] Reason for Referral * Imaging (Routine) - Closed Specialty Diagnoses / Procedures Referred By Rachid jimenez Referred To Contact Radiology Diagnoses Right hip pain Procedures MRI HIP RIGHT W CONTRAST MRI HIP RIGHT W CONTRAST MRI HIP RIGHT W CONTRAST Georgi Andersen PA [address] [place] [address] Referral ID Status Reason Start Date Expiration Date Visits Re quested Visits Authorized [id number] Closed 04/21/2022 04/21/2023 1 1 * Eval and Treat (Routine) - Closed Specialty Diagnoses / Procedures Referred By Rachid jimenez Referred To Contact Durable Medical Equipment Diagnoses Primary osteoarthritis of right knee Primary osteoarthritis of left knee Georgi Andersen PA [address] [place] [address] [employer] [address] [place] [address] Referral ID Status Reason Start Date Expiration Date Visits Re quested Visits Authorized [id number] Closed [facility] [place] [place] 04/21/2022 04/21/2023 1 1 Scheduling Instructions Please dispense and fit patient for bilateral medial district court justice knee braces. Comments Patient Information Name: Martínez Toribio : 1955 Address: [address] [facility] [address] Insurance: Payor: MEDICARE / Plan: MEDICARE PART [...] Dr. [address] [place] [phone] Georgi Andersen PA [address] [place] [address] Primary osteoarthritis of right knee [...] a referral to DME for bilateral medial district court justice OA braces. He is also requesting an [...] 9:00 AM EDT Office Visit Neurology - [facility] [address] [facility] [address] [place] [address] Martell Calderon MD [address] [facility] [address] [place] [address] TREMORS/ MEDICARE, FOR LIFE 03/28/2024 8:30 AM EDT Office Visit Primary Care - [address] [address] [place] [address] [place] [address] AWV 04/06/2024 9:45 AM EST Lab [facility] - [facility] [address] [facility] [address] [place] [address] CBCMP,CEA,FEST 04/06/2024 10:15 AM EST Office Visit [facility] - [facility] [address] [facility] [address] [place] [address] Georgi Butterfield MD [address] [place] [address] 6 MTH FU W/LABS, REV SCAN 04/13/2024 9:30 AM EST Office Visit Surgical Oncology - [facility] [address] [facility] [address] [place] [address] Delvis Cheek MD [address] 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 Small arrfv-pp-zfti sagittal T1 fat-sat. Large field of view [...] after intraarticular injection of gadolinium contrast. Small cvwlz-qf-ntcn sagittal T1 fat-sat.Large field of view coronal [...] 2. No fracture or AVN. Georgi [facility] [place] ORDERABLES documented in this encounter Visit Diagnoses Diagnosis Primary osteoarthritis of right knee- Primary Primary localized osteoarthrosis, lower leg Primary osteoarthritis of left knee Primary localized osteoarthrosis, lower leg Right hip pain Pain in joint, pelvic region and thigh Right hip pain Pain in joint, pelvic region and thigh documented in this encounter Care Teams Intensive Care Unit Nurse Relationship Specialty Start Date End Date Baljit Ozuna MD PCP - General 03/12/22 06/17/22 documented as of this encounter
--- OUTSIDE RECORDS SUMMARY | 2024-01-13 03:19 | XMS_ITS | Encounter Summary ---
Author Organization Jose Alejandro Kit [facility] Address [address] [place] [address] Care Team Providers Care Hospital Nurse Name Role Phone Baljit Ozuna MD Primary Care Provider [phone] Encounter Details Date Type Department Care Team (Late st Contact Info) Description 03/27/2022 Abstract Surgical Oncology - [facility] 125 [facility] 660 [place] [address] Delvis Cheek MD 125 [facility] 660 [place] [address] Social History Tobacco Use Types [...] Dr. [address] [place] [address] Martell Calderon MD 214 [facility] [facility] [address] [place] [address] TREMORS/ MEDICARE, FOR LIFE 03/28/2024 8:30 AM EDT Office Visit Primary Care - [facility] [address] [place] [address] Cheo Santoyo DO 1112 [place] [address] AWV 04/06/2024 9:45 AM EST Lab [facility] - [facility] 20[address] [facility] [address] [place] [address] CBCMP,CEA,FEST 04/06/2024 10:15 AM EST Office Visit [facility] - [facility] 20[address] [facility] [address] [place] [address] Georgi Butterfield MD [address] [facility] [address] [place], [place] [address] 6 MTH FU W/LABS, REV SCAN 04/13/2024 9:30 AM EST Office Visit Surgical Oncology - [facility] 20[address] [facility] [address] [place] [address] Delvis Cheek MD 125 [facility] 660 [place] [address] 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 documented as of this encounter Visit Diagnoses Not on filedocumented in this encounter Care Teams Hospital Nurse Relationship Specialty Start Date End Date Baljit Ozuna MD PCP - General 03/12/22 06/17/22 documented as of this encounter
--- OUTSIDE RECORDS SUMMARY | 2024-01-13 03:19 | XMS_ITS | Encounter Summary ---
Author Organization Jose Alejandro Raymundolinnea [facility] Address [address] [place] [address] Care Team Providers Care Laborer Shaft [place]inking Name Role Phone Unavailable Primary Care Provider Unavailabl e Encounter Details Date Type Department Care Team (Late st Contact Info) Description 10/13/2021 10:30 AM EDT - 10/13/2021 1:05 PM EDT Hospital Encounter [facility] HISTORICAL CONVERSIONS [address] [place], [place] [id number] Yola Lynne Jr., MD 0612 [facility] [address] [place] [address] Social History Tobacco Use Types Packs/Day Years [...] not included. Inpatient Patient Summary [facility] Ambulatory Surgery & Pain Management ? [address] [place], [place] [id number] Patient Discharge Instructions Name: TESS COLEMAN Current Date: 10/13/2021 11:36:01 : 1955 FIN: [id number] Patient Address: [address] [facility] [address] Patient Primary Care Provider: Name: NADIA COLMENARES [...] are reflected below: New Medications [id number] [place], [address] [place], [place] [id number], [phone] HYDROcodone-acetaminophen (Etna 325 mg-7.5 mg oral tablet) 1-2 tabs Oral (given by mouth) every 4 hours as needed severe pain (8-10) for 5 Days. Refills: 0. Last Dose: Medications That Were Updated - Follow Current Instructions [facility], [address] [place] [address] [address] [place], [place] [id number], [phone] Current aspirin (aspirin 81 mg oral delayed [...] a day (in the morning). Last Dose: [facility] would like to thank you for allowing us to assist you with your healthcare needs. The following includes patient education materials and information regarding your injury/illness. TESS COLEMAN has been given the following list of follow-up instructions, prescriptions, and patient education materials: Follow-up Instructions: With: Address: When: YOLA LYNNE [address], [address] [place], [place] [address] [employer] (1) In 2 weeks Comments: Call Dinorah [phone] for appointment day and time. With: Address: When: NADIA Gracia [facility], [address] [place] [address] Business (1) It is important [...] times a day as needed indigestion. HYDROcodone-acetaminophen (Etna 325 mg-7.5 mg oral tablet) 1-2 tabs [...] signs, call to get immediate medical attention! [facility] allows you to manage your health, view your test results, and retrieve your discharge documents from your hospital stay securely and conveniently from your computer. To begin the enrollment process, visit [email or web address]. Click on ???Sign up now?? under [facility]. * Georgi Andersen PA - 10/13/2021 11:36 AM EDT Inpatient Clinical Summary [facility] Post-Acute Care Transfer Instructions PERSON INFORMATION Name: TESS COLEMAN FIN#: [id number] PHYSICIANS Admitting Physician: TOM LYNNE Attending Physician: TOM LYNNE PCP: NADIA COLMENARES Discharge Diagnosis: Complex tear of medial meniscus of left knee Comment: PATIENT EDUCATION INFORMATION Instructions: Medication Leaflets: Follow-up: With: Address: When: YOLA LYNNE [address], [address] [place], [place] [address] Business (1) In 2 weeks Comments: Call Dinorah [phone] for appointment day and time. With: Address: When: NADIA COLMENARES [address] [facility], [address] [place] [address] Business (1) MEDICATION LIST Medication Reconciliation at Discharge: New Medications [id number] [place], [address] [place], [place] [id number], [phone] HYDROcodone-acetaminophen (Etna 325 mg-7.5 mg oral tablet) 1-2 tabs Oral (given by mouth) every 4 hours as needed severe pain (8-10) for 5 Days. Refills: 0. Last Dose: Medications That Were Updated - Follow Current Instructions [facility], 204 [facility] [address] [place], [place] [id number], [phone] Current aspirin (aspirin 81 mg oral delayed [...] times a day as needed indigestion. HYDROcodone-acetaminophen (Etna 325 mg-7.5 mg oral tablet) 1-2 tabs [...] Visit Neurology - [facility] 2[address] [facility] [address] [place] [address] Martell Calderon MD 2144 [facility] [address] [place] [address] TREMORS/ MEDICARE, FOR LIFE 03/28/2024 8:30 AM EDT Office Visit Primary Care - [address] [address] Cheo Santoyo [address] [phone] AWV 04/06/2024 9:45 AM EST Lab [facility] - [facility] 20[address] [facility] [address] [place] [address] CBCMP,CEA,FEST 04/06/2024 10:15 AM EST Office Visit [facility] - [facility] 20[address] [facility] [address] [place] [address] Georgi Butterfield MD [address] [place] [address] 6 MTH FU W/LABS, REV SCAN 04/13/2024 9:30 AM EST Office Visit Surgical Oncology - [facility] 2084 [facility] [address] [place] [address] Delvis Cheek MD 125 [facility] [address] [place] [address] 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 [address] [place] [address] Karly Bautista, PA [address] [place] [address] annual visit from date of [...] Comment: RH - JISC Performing Lab: ??RH [id number] POC 10/13/2021 11:0 5 AM EDT 10/13/2021 11:05 AM EDT Comment:Blood Yola Lynne Jr., MD POINT OF CAR E TEST ORDERABLES [facility] CERNER CONVERSION documented in this encounter Visit Diagnoses Not on filedocumented in this encounter
--- OUTSIDE RECORDS SUMMARY | 2024-01-13 03:19 | XMS_ITS | Encounter Summary ---
Author Organization Jose Alejandro Pantoja [facility] Address [address] [place] [address] Care Team Providers Care Automotive Parts Counter Associate Name Role Phone Cheo Santoyo Primary Care Provider [phone] Encounter Details Date Type Department Care Team (Late st Contact Info) Description 09/19/2021 Legacy Historical Encounter [facility] HISTORICAL CONVERSIONS [address] [place], [place] [id number] Maurice Wood II, MD 7 [facility] [address] [place] [phone] Social History Tobacco Use Types Packs/Day Years [...] Neurology - [facility] [address] [facility] [address] [place] [address] Martell Calderon MD 214 [facility] [address] [place] [address] TREMORS/ MEDICARE, FOR LIFE 03/28/2024 8:30 AM EDT Office Visit Primary Care - [address] [address] [place] [address] [place] [address] AWV 04/06/2024 9:45 AM EST Lab [facility] - [facility] 20[address] [facility] [address] [place] [address] CBCMP,CEA,FEST 04/06/2024 10:15 AM EST Office Visit [facility] - [facility] 20[address] [facility] [address] [place] [address] Georgi Butterfield MD [address] [place] [address] 6 MTH FU W/LABS, REV SCAN 04/13/2024 9:30 AM EST Office Visit Surgical Oncology - [facility] [address] [facility] [address] [place] [address] Delvis Cheek MD 125 [facility] 660 [place] [address] 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 [address] [place] [address] Karly Bautista, PA [address] [place] [address] annual visit from date of surgery May/Jul 2024 for bilateral TKA and right LIZZ with Karly. documented as of this encounter Visit Diagnoses Not on filedocumented in this encounter Care Teams Automotive Parts Counter Associate Relationship Specialty Start Date End Date Cheo Santoyo DO [address] [place] [phone] PCP - General Family Medicine 07/06/23 documented as of this encounter
--- OUTSIDE RECORDS SUMMARY | 2024-01-13 03:19 | XMS_ITS | Encounter Summary ---
Author Organization Jose Alejandro Ray[facility]olinnea [facility] Address [address] [place] [address] Care Team Providers Care Purchasing Engineer Name Role Phone Baljit Ozuna MD Primary Care Provider [phone] Reason for Referral * Other (Routine) - Closed Specialty Diagnoses / Procedures Referred By Rachid jimenez Referred To Contact Diagnoses Primary osteoarthritis of left knee Primary osteoarthritis of right knee Procedures [place] ARTHROCENTESIS ASPIR&/INJ MAJOR JT/BURSA W/O Georgi Andersen PA [address] [place] [address] Referral ID Status Reason Start Date Expiration Date Visits Re quested Visits Authorized [id number] Closed 03/31/2022 03/31/2023 1 1 Reason for Visit * Reason Comments Injections Bilateral Supartz #2 Encounter Details Date Type Department Care Team (Late st Contact Info) Description 03/31/2022 8:30 AM EDT Nurse Only Orthopaedics - [address] [place] [phone] Georgi Andersen PA [address] [place] [address] Primary osteoarthritis of left knee (Primary Dx); [...] Neurology - [facility] [address] [facility] [address] [place] [address] Martell Calderon MD 2144 [facility] [address] [place] [address] TREMORS/ MEDICARE, FOR LIFE 03/28/2024 8:30 AM EDT Office Visit Primary Care - [facility] [address] [place] [phone] Cheo Santoyo DO [address] [place] [address] AWV 04/06/2024 9:45 AM EST [facility] - [facility] 2084 [facility] [address] [place] [address] CBCMP,CEA,FEST 04/06/2024 10:15 AM EST Office Visit [facility] - [facility] 2084 [facility] [address] [place] [address] Georgi Butterfield MD 3510 [facility] [place] [address] 6 MTH FU W/LABS, REV SCAN 04/13/2024 9:30 AM EST Office Visit Surgical Oncology - [facility] 2084 [facility] [address] [place] [address] Delvis Cheek MD 125 [facility] [address] [place] [address] 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 301 [place] [address] annual visit from date of [...] mg documented in this encounter Care Teams Purchasing Engineer Relationship Specialty Start Date End Date Baljit Ozuna MD PCP - General 03/12/22 06/17/22 documented as of this encounter
--- OUTSIDE RECORDS SUMMARY | 2024-01-13 03:19 | XMS_ITS | Encounter Summary ---
Author Organization Jose Alejandro Pantoja [place] [facility] Address [address] [place] [address] Care Team Providers Care Loss Prevention Leader Name Role Phone Carter Santoyoony Moshe REYES Primary Care Provider [phone] Encounter Details Date Type Department Care Team (Late st Contact Info) Description 08/04/2021 Legacy Historical Encounter [facility] AMB HISTORICAL Georgi Butterfield MD [address] [place] [address] Social History Tobacco Use Types Packs/Day Years [...] - [facility] 2[address] [facility] [address] [place] [address] Martell Calderon MD 214 [facility] [address] [place] [address] TREMORS/ MEDICARE, FOR LIFE 03/28/2024 8:30 AM EDT Office Visit Primary Care - [address] [address] [place] [address] [place] [address] AWV 04/06/2024 9:45 AM EST Lab [place] [facility] 20[address] [facility] [address] [place] [address] CBCMP,CEA,FEST 04/06/2024 10:15 AM EST Office Visit [place] [facility] 2084 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 documented as of this encounter Visit Diagnoses Not on filedocumented in this encounter Care Teams Loss Prevention Leader Relationship Specialty Start Date End Date Cheo Santoyo DO [address] [place] [phone] PCP - General Family Medicine 07/06/23 documented as of this encounter
--- OUTSIDE RECORDS SUMMARY | 2024-01-13 03:19 | XMS_ITS | Encounter Summary ---
Author Organization Jose Alejandro [facility] Address [address] [place] [address] Care Team Providers Care Disaster Response Director Name Role Phone Baljit Ozuna MD Primary Care Provider Reason for Visit * Treatment Plan and Therapy Plan (Routine) - Closed Specialty Diagnoses / Procedures Referred By Contac t Referred To Contact Diagnoses Iron deficiency anemia, unspecified iron deficiency anemia type Georgi Butterfield MD [address] [place] [address] [facility] 8950 [facility] 100 [place] [address] Referral ID Status Reason Start Date Expiration Date Visits Re quested Visits Authorized [id number] Closed 04/13/2022 04/13/2023 1 2 Encounter Details Date Type Department Care Team (Latest Contact Info) Description 04/13/2022 1:36 PM EST - 04/13/2022 11:59 PM [facility] Hospital Encounter [facility] [address] [facility] [address] [place] [address] Iron deficiency anemia, unspecified iron [...] Visit Neurology - [facility] 2144 [facility] [address] [place] [address] Martell Calderon MD 2144 [facility] [address] [place] [address] TREMORS/ MEDICARE, FOR LIFE 03/28/2024 8:30 AM EDT Office Visit Primary Care - [address] [address] [place] [address] [place] [phone] AWV 04/06/2024 9:45 AM EST [facility] [place] [facility] - [facility] 2084 [facility] [address] [place] [address] CBCMP,CEA,FEST 04/06/2024 10:15 AM EST Office Visit [place] [facility] - [facility] 2084 [facility] [address] [place] [address] Georgi Butterfield MD [address] [place] [address] 6 MTH FU W/LABS, REV SCAN 04/13/2024 9:30 AM EST Office Visit Surgical Oncology - [facility] 2084 [facility] [address] [place] [address] Delvis Cheek MD 125 [facility] [address] [place] [address] 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
--- OUTSIDE RECORDS SUMMARY | 2024-01-13 03:19 | XMS_ITS | Encounter Summary ---
Author Organization Jose Alejandro Pantoja [facility] Address [address] [place] [address] Care Team Providers Care Bank Sales And Service Manager Name Role Phone Cheo Santoyo Primary Care Provider [phone] Encounter Details Date Type Department Care Team (Late st Contact Info) Description 08/25/2021 Legacy Historical Encounter [facility] HISTORICAL CONVERSIONS [address] [place], [place] [id number] Cherie Pope, PA [address] [id number] Social History Tobacco Use Types Packs/Day Years [...] Visit Neurology - [facility] 2144 [facility] [address] [place] [address] Martell Calderon MD 2144 [facility] [address] [place] [address] TREMORS/ MEDICARE, FOR LIFE 03/28/2024 8:30 AM EDT Office Visit Primary Care - [address] [address] Cheo Santoyo, [address] [place] [address] AWV 04/06/2024 9:45 AM EST Lab [place] [facility] - [facility] 2084 [facility] [address] [place] [address] CBCMP,CEA,FEST 04/06/2024 10:15 AM EST Office Visit [place] [facility] - [facility] 2084 [facility] [address] [place] [address] Georgi Butterfield MD [address] [place] [address] 6 MTH FU W/LABS, REV SCAN 04/13/2024 9:30 AM EST Office Visit Surgical Oncology - [facility] 2081 [facility] [address] [place] [address] Delvis Cheek MD 125 [facility] 660 [place] [address] 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 documented as of this encounter Visit Diagnoses Not on filedocumented in this encounter Care Teams Bank Sales And Service Manager Relationship Specialty Start Date End Date Cheo Santoyo DO [address] [place] [phone] PCP - General Family Medicine 07/06/23 documented as of this encounter
--- OUTSIDE RECORDS SUMMARY | 2024-01-13 03:19 | XMS_ITS | Encounter Summary ---
Author Organization Jose Alejandro Raymundolinnea [facility] Address [address] [email or web address] [address] Care Team Providers Care Picking Belt Operator Name Role Phone Baljit Ozuna MD Primary Care Provider [phone] Reason for Referral * Imaging (Routine) - Closed Specialty Diagnoses / Procedures Referred By Rachid jimenez Referred To Contact Radiology Diagnoses Right hip pain Procedures MRI HIP RIGHT W CONTRAST MRI HIP RIGHT W CONTRAST MRI HIP RIGHT W CONTRAST Georgi Andersen PA [address] [facility] [address] [place] [address] Referral ID Status Reason Start Date Expiration Date Visits Re quested Visits Authorized [id number] Closed 04/21/2022 04/21/2023 1 1 Reason for Visit * Auth/Cert (Routine) Specialty Diagnoses / Procedures Referred By Rachid jimenez Referred To Contact [facility] [address] [place] [address] [address] Referral ID Status Reason Start Date Expiration Date Visits Re quested Visits Authorized [id number] 1 1 Encounter Details Date Type Department Care Team (Latest Contact Info) Description 04/29/2022 12:39 PM EST - 04/29/2022 11:59 PM EST Hospital Encounter [facility] MRI [address] [place] [address] Right hip pain Discharge Disposition: Home or [...] Office Visit Neurology - [address] [place] [address] Martell Calderon MD 5 [facility] [address] [place] [address] TREMORS/ MEDICARE, FOR LIFE 03/28/2024 8:30 AM EDT Office Visit Primary Care - [facility] [address] [place] [address] Cheo Santoyo, DO 1112 [place] [address] AWV 04/06/2024 9:45 AM EST [facility] [place] [facility] - [facility] 2084 [facility] [address] [place] [address] CBCMP,CEA,FEST 04/06/2024 10:15 AM EST Office Visit [place] [facility] - [facility] 2084 [facility] [address] [place] [address] Georgi Butterfield MD [address] [place] [address] 6 MTH FU W/LABS, REV SCAN 04/13/2024 9:30 AM EST Office Visit Surgical Oncology - [facility] 2084 [facility] [address] [place] [address] Delvis Cheek MD 125 [facility] 660 [place] [address] 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 [address] 100 [place] [address] Karly Bautista PA [address] [place] [address] annual visit from date of [...] intra articular injection of gadolinium contrast. Small hjbnu-sl-icnt sagittal T1 fat-sat. Large field of view [...] after intraarticular injection of gadolinium contrast. Small lydae-nm-hdxt sagittal T1 fat-sat.Large field of view coronal [...] thigh documented in this encounter Care Teams Picking Belt Operator Relationship Specialty Start Date End Date Baljit Ozuna MD PCP - General 03/12/22 06/17/22 documented as of this encounter
--- OUTSIDE RECORDS SUMMARY | 2024-01-13 03:20 | XMS_ITS | Encounter Summary ---
Author Organization Jose Alejandro Pantoja [facility] Address [address] [place] [address] Care Team Providers Care Operations Specialist Name Role Phone YarelisCheo friend Moshe REYES Primary Care Provider [phone] Encounter Details Date Type Department Care Team [...] Visit Neurology - [facility] [address] [facility] [address] [place] [address] Martell Calderon MD 2144 [facility] [address] [place] [address] TREMORS/ MEDICARE, FOR LIFE 03/28/2024 8:30 AM EDT Office Visit Primary Care - [address] [phone] Cheo Santoyo, [address] [address] AWV 04/06/2024 9:45 AM EST Lab [place] [facility] - [facility] 2084 [facility] [address] [place] [address] CBCMP,CEA,FEST 04/06/2024 10:15 AM EST Office Visit [place] [facility] - [facility] 2084 [facility] [address] [place] [address] Georgi Butterfield MD [address] [place] [address] 6 MTH FU W/LABS, REV SCAN 04/13/2024 9:30 AM EST Office Visit Surgical Oncology - [facility] 2084 [facility] [address] [place] [address] Delvis Cheek MD 125 [facility] 660 [place] [address] 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 [address] 100 [place] [phone] Karly Bautista, BURT 180 [facility] 301 [place] [address] annual visit from date of surgery May/Jul 2024 for bilateral TKA and right LIZZ with Karly. documented as of this encounter Visit Diagnoses Not on filedocumented in this encounter Care Teams Operations Specialist Relationship Specialty Start Date End Date Ceho Santoyo DO [address] [place] [phone] PCP - General Family Medicine 07/06/23 documented as of this encounter
--- OUTSIDE RECORDS SUMMARY | 2024-01-13 03:20 | XMS_ITS | Encounter Summary ---
Author Organization Jose Alejandro Pantoja [facility] Address [address] [place] [address] Care Team Providers Care Cyber Systems Engineer Name Role Phone Cheo Santoyo Primary Care Provider [phone] Encounter Details Date Type Department Care Team (Late st Contact Info) Description 10/24/2020 Legacy Historical Encounter [facility] HISTORICAL CONVERSIONS [address] [place] [address] Delvis Cheek MD [address] [address] Social History Tobacco Use Types [...] AM EDT Office Visit Neurology - [facility] 2144 [facility] [address] [place] [address] Martell Calderon MD 214 [facility] [address] [place] [address] TREMORS/ MEDICARE, FOR LIFE 03/28/2024 8:30 AM EDT Office Visit Primary Care - [address] [address] [place] [address] [place] [address] AWV 04/06/2024 9:45 AM EST Lab [place] [facility] - [facility] 2084 [facility] [address] [place] [address] CBCMP,CEA,FEST 04/06/2024 10:15 AM EST Office Visit [place] [facility] - [facility] 2084 [facility] [address] [place] [address] Georgi Butterfield MD 3510 [facility] [address] [place] [address] 6 MTH FU W/LABS, REV SCAN 04/13/2024 9:30 AM EST Office Visit Surgical Oncology - [facility] [address] [facility] [address] [place] [address] Delvis Cheek MD 125 [facility] 660 [place] [address] 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 documented as of this encounter Visit Diagnoses Not on filedocumented in this encounter Care Teams Cyber Systems Engineer Relationship Specialty Start Date End Date Cheo Santoyo DO [address] [place] [phone] PCP - General Family Medicine 07/06/23 documented as of this encounter
--- OUTSIDE RECORDS SUMMARY | 2024-01-13 03:20 | XMS_ITS | Encounter Summary ---
Author Organization Jose Alejandro Pantoja [facility] Address [address] [email or web address] [address] Care Team Providers Care Snipper Name Role Phone Carter Santoyoony Moshe REYES Primary Care Provider Encounter Details Date Type Department Care Team (Late st Contact Info) Description 10/09/2020 Legacy Historical Encounter [facility] AMB HISTORICAL Georgi Butterfield MD [address] [place] [address] Social History Tobacco Use Types Packs/Day Years [...] AM EDT Office [facility] 2144 [facility] [address] [place] [address] Martell Calderon MD 214 [facility] [address] [place] [address] TREMORS/ MEDICARE, FOR LIFE 03/28/2024 8:30 AM EDT Office Visit Primary Care - [address] [address] [place] [address] [place] [address] AWV 04/06/2024 9:45 AM EST Lab [place] [facility] - [facility] 2084 [facility] [address] [place] [address] CBCMP,CEA,FEST 04/06/2024 10:15 AM EST Office Visit [place] [facility] - [facility] 2084 [facility] [address] [place] [address] Georgi Butterfield MD [address] [place] [address] 6 MTH FU W/LABS, REV SCAN 04/13/2024 9:30 AM EST Office Visit Surgical Oncology - [facility] [address] [facility] [address] [place] [address] Delvis Cheek MD 125 [facility] 660 [place] [address] 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 documented as of this encounter Visit Diagnoses Not on filedocumented in this encounter Care Teams Snipper Relationship Specialty Start Date End Date Cheo Santoyo DO [address] [place] [phone] PCP - General Family Medicine 07/06/23 documented as of this encounter
--- OUTSIDE RECORDS SUMMARY | 2024-01-13 03:20 | XMS_ITS | Encounter Summary ---
Author Organization Jose Alejandro Pantoja [facility] Address [address] [place] [address] Care Team Providers Care Covering Machine Tender Name Role Phone YarelisCheo friend Moshe REYES Primary Care Provider [phone] Encounter Details Date Type Department Care Team [...] Neurology - [facility] 2144 [facility] [place] [address] [place] [address] Martell Calderon MD 2144 [facility] [address] [place] [address] TREMORS/ MEDICARE, FOR LIFE 03/28/2024 8:30 AM EDT Office Visit Primary Care - [address] [phone] Cheo Santoyo, [address] [address] AWV 04/06/2024 9:45 AM EST [facility] - [facility] 2084 [facility] [place] [address] [place] [address] CBCMP,CEA,FEST 04/06/2024 10:15 AM EST Office Visit [place] - [facility] 2084 [facility] [address] [place] [address] Georgi Butterfield MD [address] [place] [address] 6 MTH FU W/LABS, REV SCAN 04/13/2024 9:30 AM EST Office Visit Surgical Oncology - [facility] 2084 [facility] [place] [address] [place] [address] Delvis Cheek MD 125 [facility] 660 [place] [address] 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 [address] [place] [address] Karly Bautista, BURT 180 [facility] 301 [place] [address] annual visit from date of surgery May/Jul 2024 for bilateral TKA and right LIZZ with Karly. documented as of this encounter Visit Diagnoses Not on filedocumented in this encounter Care Teams Covering Machine Tender Relationship Specialty Start Date End Date Cheo Santoyo DO [address] [place] [phone] PCP - General Family Medicine 07/06/23 documented as of this encounter
--- OUTSIDE RECORDS SUMMARY | 2024-01-13 03:20 | XMS_ITS | Encounter Summary ---
Author Organization Jose Alejandro Pantoja [facility] Address [address] [place] [address] Care Team Providers Care Intensive Care Nurse Name Role Phone Cheo Santoyo Primary Care Provider [phone] Encounter Details Date Type Department Care Team (Late st Contact Info) Description 07/30/2021 Legacy Historical Encounter RS HISTORICAL CONVERSIONS 316 [place], [place] [id number] Cherie Pope, [place] [address] [id number] Social History Tobacco Use Types Packs/Day Years [...] [facility] 2144 [facility] [address] [place] [address] Martell Calderon MD 2144 [facility] [address] [place] [address] TREMORS/ MEDICARE, FOR LIFE 03/28/2024 8:30 AM EDT Office Visit Primary Care - [address] [address] Cheo Santoyo, 1112 [place] [address] AWV 04/06/2024 9:45 AM EST [facility] - [facility] 2084 [facility] [address] [place] [address] CBCMP,CEA,FEST 04/06/2024 10:15 AM EST Office Visit [place] - [facility] 2084 [facility] [address] [place] [address] Georgi Butterfield MD [address] [place] [address] 6 MTH FU W/LABS, REV SCAN 04/13/2024 9:30 AM EST Office Visit Surgical Oncology - [facility] 2086 [facility] [address] [place] [address] Delvis Cheek MD 125 [facility] 660 [place] [address] 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 documented as of this encounter Visit Diagnoses Not on filedocumented in this encounter Care Teams Intensive Care Nurse Relationship Specialty Start Date End Date Cheo Santoyo DO [address] [place] [phone] PCP - General Family Medicine 07/06/23 documented as of this encounter
--- OUTSIDE RECORDS SUMMARY | 2024-01-13 03:20 | XMS_ITS | Encounter Summary ---
Author Organization Jose Alejandro Pantoja [facility] Address [address] [place] [address] Care Team Providers Care Certified Orthotist Name Role Phone Cheo Santoyo Primary Care Provider [phone] Encounter Details Date Type Department Care Team (Late st Contact Info) Description 05/13/2021 Legacy Historical Encounter [facility] HISTORICAL CONVERSIONS 316 [place], [place] [address] Georgi Andersen, [place] [address] [facility] [address] [place], [place] [phone] Social History Tobacco Use Types Packs/Day Years [...] Visit Neurology - [facility] 2144 [facility] [place] [address] [place] [address] Martell Calderon MD 214 [facility] [address] [place] [address] TREMORS/ MEDICARE, FOR LIFE 03/28/2024 8:30 AM EDT Office Visit Primary Care - [address] [address] Cheo Santoyo, 1112 [place] [address] AWV 04/06/2024 9:45 AM EST Lab [facility] - [facility] 2084 [facility] [place] [address] [place] [address] CBCMP,CEA,FEST 04/06/2024 10:15 AM EST Office Visit [place] [facility] - [facility] 2084 [facility] [place] [address] [place] [address] Georgi Butterfield MD [address] [place] [address] 6 MTH FU W/LABS, REV SCAN 04/13/2024 9:30 AM EST Office Visit Surgical Oncology - [facility] 2087 [facility] [place] [address] [place] [address] Delvis Cheek MD 125 [facility] 660 [place] [address] 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 documented as of this encounter Visit Diagnoses Not on filedocumented in this encounter Care Teams Certified Orthotist Relationship Specialty Start Date End Date Cheo Santoyo DO [address] [place] [phone] PCP - General Family Medicine 07/06/23 documented as of this encounter
--- OUTSIDE RECORDS SUMMARY | 2024-01-13 03:20 | XMS_ITS | Encounter Summary ---
Author Organization Jose Alejandro [facility] Address [address] [place] [address] Care Team Providers Care Manager Employee Benefits Name Role Phone Unavailable Primary Care Provider Unavailabl e Encounter Details Date Type Department Care Team (Late st Contact Info) Description 07/17/2021 10:32 AM EST - 07/17/2021 11:59 PM EST Hospital Encounter RS HISTORICAL CONVERSIONS 316 [place] [address] Maurice Wood II, MD 3911 [facility] [address] [place] [phone] Social History Tobacco Use Types Packs/Day Years [...] Dr. [address] [place] [phone] Martell Calderon MD 2144 [facility] [address] [place] [address] TREMORS/ MEDICARE, FOR LIFE 03/28/2024 8:30 AM EDT Office Visit Primary Care - [address] [phone] Cheo Santoyo DO 1112 [place] [address] AWV 04/06/2024 9:45 AM EST Lab [place] [facility] - [facility] [place] 2084 [facility] [address] [place] [address] CBCMP,CEA,FEST 04/06/2024 10:15 AM EST Office Visit [place] [facility] - [facility] [place] 2084 [facility] [address] [place] [address] Georgi Butterfield MD [address] [place] [address] 6 MTH FU W/LABS, REV SCAN 04/13/2024 9:30 AM EST Office Visit Surgical Oncology - [facility] [place] 2084 [facility] [address] [place] [address] Delvis Cheek MD 125 [facility] 660 [place] [address] 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
--- OUTSIDE RECORDS SUMMARY | 2024-01-13 03:20 | XMS_ITS | Encounter Summary ---
Author Organization Jose Alejandro Pantoja [facility] Address [address] [place] [address] Care Team Providers Care Delivery Professional Name Role Phone Carter Santoyoony Moshe REYES Primary Care Provider [phone] Encounter Details Date Type Department Care Team (Late st Contact Info) Description 04/07/2021 Legacy Historical Encounter [facility] AMB HISTORICAL Georgi Butterfield MD [address] [place] [address] Social History Tobacco Use Types Packs/Day Years [...] AM EDT Office Visit [facility] - [facility] 2144 [facility] [address] [place] [address] Martell Calderon MD 214 [facility] [address] [place] [address] TREMORS/ MEDICARE, FOR LIFE 03/28/2024 8:30 AM EDT Office Visit Primary Care - [address] [address] [place] [address] [place] [address] AWV 04/06/2024 9:45 AM EST Lab [place] [facility] 2084 [facility] [place] [address] [place] [address] CBCMP,CEA,FEST 04/06/2024 10:15 AM EST Office Visit [place] [facility] 2084 [facility] [place] [address] [place] [address] Georgi Butterfield MD [address] [place] [address] 6 MTH FU W/LABS, REV SCAN 04/13/2024 9:30 AM EST Office Visit Surgical Oncology - [facility] [address] [facility] [address] [place] [address] Delvis Cheek MD 125 [facility] 660 [place] [address] 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 100 [place] [address] Karly Bautista, BURT 180 [facility] 301 [place] [address] annual visit from date of surgery May/Jul 2024 for bilateral TKA and right LIZZ with Karly. documented as of this encounter Visit Diagnoses Not on filedocumented in this encounter Care Teams Delivery Professional Relationship Specialty Start Date End Date Cheo Santoyo DO [address] [place] [phone] PCP - General Family Medicine 07/06/23 documented as of this encounter
--- OUTSIDE RECORDS SUMMARY | 2024-01-13 03:20 | XMS_ITS | Encounter Summary ---
Author Organization Jose Alejandro Pantoja [facility] Address [address]01 [place] [address] Care Team Providers Care Sole Edge Inker Machine Name Role Phone YarelisCheo friend Moshe REYES Primary Care Provider [phone] Encounter Details Date Type Department Care Team [...] AM EDT Office Visit Neurology - [facility] 2144 [facility] [address] [place] [address] Martell Calderon MD 2144 [facility] [address] [place] [address] TREMORS/ MEDICARE, FOR LIFE 03/28/2024 8:30 AM EDT Office Visit Primary Care - [address] [phone] Cheo Santoyo, [address] [address] AWV 04/06/2024 9:45 AM EST Lab [place] [facility] - [facility] 2084 [facility] [address] [place] [address] CBCMP,CEA,FEST 04/06/2024 10:15 AM EST Office Visit [place] [facility] - [facility] 2084 [facility] [address] [place] [address] Georgi Butterfield MD [address] [place] [address] 6 MTH FU W/LABS, REV SCAN 04/13/2024 9:30 AM EST Office Visit Surgical Oncology - 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 documented as of this encounter Visit Diagnoses Not on filedocumented in this encounter Care Teams Sole Edge Inker Machine Relationship Specialty Start Date End Date Cheo Santoyo DO [address] [place] [phone] PCP - General Family Medicine 07/06/23 documented as of this encounter
--- OUTSIDE RECORDS SUMMARY | 2024-01-13 03:20 | XMS_ITS | Encounter Summary ---
Author Organization Jose Alejandro Pantoja [facility] Address [address] [employer] [place] [address] Care Team Providers Care Toolroom Attendant Name Role Phone YarelisCheo friend Moshe REYES Primary Care Provider [phone] Encounter Details Date Type Department Care Team [...] Visit Neurology - [facility] 2144 [facility] [address] [place] [address] Martell Calderon MD 2144 [facility] [address] [place] [address] TREMORS/ MEDICARE, FOR LIFE 03/28/2024 8:30 AM EDT Office Visit Primary Care - [address] [phone] Cheo Santoyo, [address] [address] AWV 04/06/2024 9:45 AM EST Lab [place] [facility] - [facility] 2084 [facility] [address] [place] [address] CBCMP,CEA,FEST 04/06/2024 10:15 AM EST Office Visit [place] [facility] - [facility] 2084 [facility] [address] [place] [address] Georgi Butterfield MD [address] [place] [address] 6 MTH FU W/LABS, REV SCAN 04/13/2024 9:30 AM EST Office Visit Surgical Oncology - [facility] 2084 [facility] [address] [place] [address] Delvis Cheek MD 125 [facility] 660 [place] [address] 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 documented as of this encounter Visit Diagnoses Not on filedocumented in this encounter Care Teams Toolroom Attendant Relationship Specialty Start Date End Date Cheo Santoyo DO [address] [place] [phone] PCP - General Family Medicine 07/06/23 documented as of this encounter
--- OUTSIDE RECORDS SUMMARY | 2024-01-13 03:20 | XMS_ITS | Encounter Summary ---
Author Organization Jose Alejandro Pantoja [facility] Address [address] [place] [address] Care Team Providers Care Motor Power Connector Name Role Phone YarelisCheo friend Moshe REYES Primary Care Provider [phone] Encounter Details Date Type Department Care Team [...] Visit Neurology - [facility] 2144 [facility] [address] [place] [address] Martell Calderon MD 2144 [facility] [address] [place] [address] TREMORS/ MEDICARE, FOR LIFE 03/28/2024 8:30 AM EDT Office Visit Primary Care - [address] [phone] Cheo Santoyo, [address] [address] AWV 04/06/2024 9:45 AM EST Lab [place] [facility] - [facility] 2084 [facility] [address] [place] [address] CBCMP,CEA,FEST 04/06/2024 10:15 AM EST Office Visit [place] [facility] - [facility] 2084 [facility] [address] [place] [address] Georgi Butterfield MD [address] [place] [address] 6 MTH FU W/LABS, REV SCAN 04/13/2024 9:30 AM EST Office Visit Surgical Oncology - [facility] 2084 [facility] [address] [place] [address] Delvis Cheek MD 125 [facility] 660 [place] [address] 1 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 documented as of this encounter Visit Diagnoses Not on filedocumented in this encounter Care Teams Motor Power Connector Relationship Specialty Start Date End Date Cheo Santoyo DO [address] [place] [phone] PCP - General Family Medicine 07/06/23 documented as of this encounter
--- OUTSIDE RECORDS SUMMARY | 2024-01-13 03:20 | XMS_ITS | Encounter Summary ---
Author Organization Jose Alejandro [facility] Address [address] [place] [address] Care Team Providers Care Hospital Housekeeper Name Role Phone Unavailable Primary Care Provider Unavailabl e Encounter Details Date Type Department Care Team (Late st Contact Info) Description 03/28/2021 9:15 AM EDT - 03/28/2021 11:59 PM EDT Hospital Encounter [facility] HISTORICAL CONVERSIONS [address] [place], [place] [address] Georgi Butterfield MD 3510 [facility] [address] [place] [address] Social History Tobacco Use Types Packs/Day Years [...] Office Visit Neurology - Maryan [address] Dr. [address] [place] [address] Martell Calderon MD 2144 [facility] [address] [place] [address] TREMORS/ MEDICARE, FOR LIFE 03/28/2024 8:30 AM EDT Office Visit Primary Care - [address] [address] [place] [address] [place] [address] AWV 04/06/2024 9:45 AM EST Lab [place] [facility] - [facility] 2084 [facility] [address] [place] [address] CBCMP,CEA,FEST 04/06/2024 10:15 AM EST Office Visit [place] [facility] - [facility] 2084 [facility] [address] [place] [address] Georgi Butterfield MD [address] [place] [address] 6 MTH FU W/LABS, REV SCAN 04/13/2024 9:30 AM EST Office Visit Surgical Oncology - [facility] 2084 [facility] [address] [place] [address] Delvis Cheek MD 125 [facility] 660 [place] [address] 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
--- OUTSIDE RECORDS SUMMARY | 2024-01-13 03:20 | XMS_ITS | Encounter Summary ---
Author Organization Jose Alejandro Pantoja [facility] Address [address] [place] [address] Care Team Providers Care Maintenance Carpenter Name Role Phone YarelisCheo friend Moshe REYES Primary Care Provider [phone] Encounter Details Date Type Department Care Team [...] Neurology - [facility] 2144 [facility] [address] [place] [address] Martell Calderon MD 2144 [facility] [address] [place] [address] TREMORS/ MEDICARE, FOR LIFE 03/28/2024 8:30 AM EDT Office Visit Primary Care - [address] [phone] Cheo Santoyo, [address] [address] AWV 04/06/2024 9:45 AM EST [facility] [place] [facility] - [facility] 2084 [facility] [address] [place] [address] CBCMP,CEA,FEST 04/06/2024 10:15 AM EST Office Visit [place] [facility] - [facility] 2084 [facility] [address] [place] [address] Georgi Butterfield MD [address] [place] [address] 6 MTH FU W/LABS, REV SCAN 04/13/2024 9:30 AM EST Office Visit Surgical Oncology - [facility] 2084 [facility] [address] [place] [address] Delvis Cheek MD 125 [facility] 660 [place] [address] 1 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 301 [place] [address] annual visit from date of surgery May/Jul 2024 for bilateral TKA and right LIZZ with Karly. documented as of this encounter Visit Diagnoses Not on filedocumented in this encounter Care Teams Maintenance Carpenter Relationship Specialty Start Date End Date Cheo Santoyo DO [address] [place] [phone] PCP - General Family Medicine 07/06/23 documented as of this encounter
--- OUTSIDE RECORDS SUMMARY | 2024-01-13 03:20 | XMS_ITS | Encounter Summary ---
Author Organization Jose Alejandro Pantoja [facility] Address [address] [place] [address] Care Team Providers Care Button Machine Operator Name Role Phone YarelisCheo friend Moshe REYES Primary Care Provider [phone] Encounter Details Date Type Department Care Team [...] 9:00 AM EDT Office Visit Neurology - [facility], [place] [address] [facility] [address] [place] [address] Martell Calderon MD 2144 [facility] [address] [place] [address] TREMORS/ MEDICARE, FOR LIFE 03/28/2024 8:30 AM EDT Office Visit Primary Care - [address] [phone] Cheo Santoyo, [address] [address] AWV 04/06/2024 9:45 AM EST Lab [facility] - [facility], [place] [address] [facility] [address] [place] [address] CBCMP,CEA,FEST 04/06/2024 10:15 AM EST Office Visit [facility] - [facility], [place] [address] [facility] [address] [place] [address] Georgi Butterfield MD [address] [place] [address] 6 MTH FU W/LABS, REV SCAN 04/13/2024 9:30 AM EST Office Visit Surgical Oncology - [facility], [place] [address] 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 [address] [place] [phone] Karly Bautista, BURT 180 [facility] 301 [place] [address] annual visit from date of surgery May/Jul 2024 for bilateral TKA and right LIZZ with Karly. documented as of this encounter Visit Diagnoses Not on filedocumented in this encounter Care Teams Button Machine Operator Relationship Specialty Start Date End Date Cheo Santoyo DO [address] [place] [phone] PCP - General Family Medicine 07/06/23 documented as of this encounter
--- OUTSIDE RECORDS SUMMARY | 2024-01-13 03:20 | XMS_ITS | Encounter Summary ---
Author Organization Jose Alejandro Pantoja [facility] Address [address] [employer] [place] [address] Care Team Providers Care Nib Inspector Name Role Phone Cheo Santoyo Primary Care Provider [phone] Encounter Details Date Type Department Care Team (Late st Contact Info) Description 07/11/2021 Legacy Historical Encounter [facility] HISTORICAL CONVERSIONS [address] [place], [place] [address] Maurice Wood II, MD 2 [facility] [address] [place] [phone] Social History Tobacco Use Types Packs/Day Years [...] Neurology - [facility] [address] [facility] [address] [place] [address] Martell Calderon MD 214 [facility] [address] [place] [address] TREMORS/ MEDICARE, FOR LIFE 03/28/2024 8:30 AM EDT Office Visit Primary Care - [address] [phone] [place] [address] [place] [address] AWV 04/06/2024 9:45 AM EST Lab [facility] - [facility] [address] [facility] [address] [place] [address] CBCMP,CEA,FEST 04/06/2024 10:15 AM EST Office Visit [facility] - [facility] [address] [facility] [address] [place] [address] Georgi Butterfield MD [address] [place] [address] 6 MTH FU W/LABS, REV SCAN 04/13/2024 9:30 AM EST Office Visit Surgical Oncology - [facility] [address] [facility] [address] [place] [phone] Delvis Cheek MD 125 [facility] 660 [place] [address] 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 [address] [place] [phone] Karly Bautista, PA [address] [place] [phone] annual visit from date of surgery May/Jul 2024 for bilateral TKA and right LIZZ with Karly. documented as of this encounter Visit Diagnoses Not on filedocumented in this encounter Care Teams Nib Inspector Relationship Specialty Start Date End Date Cheo Santoyo DO [address] [place] [phone] PCP - General Family Medicine 07/06/23 documented as of this encounter
--- OUTSIDE RECORDS SUMMARY | 2024-01-13 03:20 | XMS_ITS | Encounter Summary ---
Author Organization Jose Alejandro Pantoja [facility] Address [address] [place] [address] Care Team Providers Care Photogrammetric Technician Name Role Phone YarelisCheo friend Moshe REYES Primary Care Provider [phone] Encounter Details Date Type Department Care Team [...] Visit Neurology - [facility] [address] [facility] [address] [place] [address] Martell Calderon MD 2144 [facility] [address] [place] [address] TREMORS/ MEDICARE, FOR LIFE 03/28/2024 8:30 AM EDT Office Visit Primary Care - [address] [phone] Cheo Santoyo, [address] [address] AWV 04/06/2024 9:45 AM EST Lab [facility] - [facility] [address] [facility] [address] [place] [address] CBCMP,CEA,FEST 04/06/2024 10:15 AM EST Office Visit [facility] - [facility] [address] [facility] [address] [place] [address] Georgi Butterfield MD [address] [place] [address] 6 MTH FU W/LABS, REV SCAN 04/13/2024 9:30 AM EST Office Visit Surgical Oncology - [facility] [address] [facility] [address] [place] [phone] Delvis Cheek MD 125 [facility] 660 [place] [address] 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 [address] [place] [phone] Karly Bautista, BURT 180 [facility] 301 [place] [address] annual visit from date of surgery May/Jul 2024 for bilateral TKA and right LIZZ with Karly. documented as of this encounter Visit Diagnoses Not on filedocumented in this encounter Care Teams Photogrammetric Technician Relationship Specialty Start Date End Date Cheo Santoyo DO [address] [place] [phone] PCP - General Family Medicine 07/06/23 documented as of this encounter
--- OUTSIDE RECORDS SUMMARY | 2024-01-13 03:20 | XMS_ITS | Encounter Summary ---
Author Organization Jose Alejandro Raymundolinnea [facility] Address [address] [place] [address] Care Team Providers Care Data Analytics Specialist Name Role Phone Unavailable Primary Care Provider Unavailabl e Encounter Details Date Type Department Care Team (Late st Contact Info) Description 07/21/2021 8:10 AM EST - 07/21/2021 11:49 AM EST Hospital Encounter [facility] HISTORICAL CONVERSIONS [address] [place] [address] Maurice Wood II, MD [address] [facility] [address] [place] [phone] Social History Tobacco Use Types Packs/Day Years [...] Dr. [address] [place] [phone] Martell Calderon MD 2[address] [facility] [address] [place] [address] TREMORS/ MEDICARE, FOR LIFE 03/28/2024 8:30 AM EDT Office Visit Primary Care - [address] [phone] Cheo Santoyo DO [address] [place] [phone] AWV 04/06/2024 9:45 AM EST Lab [facility] - [facility] [address] [facility] [address] [place] [address] CBCMP,CEA,FEST 04/06/2024 10:15 AM EST Office Visit [facility] - [facility] [address] [facility] [address] [place] [address] Georgi Butterfield MD [address] [place] [address] 6 MTH FU W/LABS, REV SCAN 04/13/2024 9:30 AM EST Office Visit Surgical Oncology - [facility] [address] [facility] [address] [place] [address] Delvis Cheek MD 125 [facility] 660 [place] [address] 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
--- OUTSIDE RECORDS SUMMARY | 2024-01-13 03:20 | XMS_ITS | Encounter Summary ---
Author Organization Jose Alejandro Pantoja [facility] Address [address] [place] [address] Care Team Providers Care Grinding Machine Operator Automatic Name Role Phone Carter Santoyoony Moshe REYES Primary Care Provider [phone] Encounter Details Date Type Department Care Team (Late st Contact Info) Description 10/30/2020 Legacy Historical Encounter [facility] AMB HISTORICAL Georgi Butterfield MD [address] [place] [address] Social History Tobacco Use Types Packs/Day Years [...] AM EDT Office [facility] [address] [facility] [address] [place] [address] Martell Calderon MD 214 [facility] [place] [address] [place] [address] TREMORS/ MEDICARE, FOR LIFE 03/28/2024 8:30 AM EDT Office Visit Primary Care - [address] [phone] [place] [address] [place] [phone] AWV 04/06/2024 9:45 AM EST Lab [facility] 20[address] [facility] [address] [place] [address] CBCMP,CEA,FEST 04/06/2024 10:15 AM EST Office Visit [facility] 20[address] [facility] [address] [place] [address] Georgi Butterfield MD [address] [place] [address] 6 MTH FU W/LABS, REV SCAN 04/13/2024 9:30 AM EST Office Visit Surgical Oncology - [facility] [address] [facility] [address] [place] [address] Delvis Cheek MD 125 [facility] 660 [place] [address] 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 [address] [place] [address] Karly Bautista, BURT 180 [facility] 301 [place] [address] annual visit from date of surgery May/Jul 2024 for bilateral TKA and right LIZZ with Karly. documented as of this encounter Visit Diagnoses Not on filedocumented in this encounter Care Teams Grinding Machine Operator Automatic Relationship Specialty Start Date End Date Cheo Santoyo DO [address] [place] [phone] PCP - General Family Medicine 07/06/23 documented as of this encounter
--- OUTSIDE RECORDS SUMMARY | 2024-01-13 03:20 | XMS_ITS | Encounter Summary ---
Author Organization Jose Alejandro Pantoja [facility] Address [address] [place] [address] Care Team Providers Care Employee Service Officer Name Role Phone Cheo Santoyo Primary Care Provider [phone] Encounter Details Date Type Department Care Team ([facility] st Contact Info) Description 07/16/2020 Legacy Historical [address] [facility] HISTORICAL CONVERSIONS [address] [place] [address] René Wright MD [address] [address] Social History Tobacco Use Types [...] Neurology - [facility] 2[address] [facility] [address] [place] [address] Martell Calderon MD 214 [facility] [address] [place] [address] TREMORS/ MEDICARE, FOR LIFE 03/28/2024 8:30 AM EDT Office Visit Primary Care - [address] [address] Cheo Santoyo, [address] [place] [address] AWV 04/06/2024 9:45 AM EST Lab [facility] - [facility] [address] [facility] [address] [place] [address] CBCMP,CEA,FEST 04/06/2024 10:15 AM EST Office Visit [facility] - [facility] [address] [facility] [address] [place] [address] Georgi Butterfield MD [address] [place] [address] 6 MTH FU W/LABS, REV SCAN 04/13/2024 9:30 AM EST Office Visit Surgical Oncology - [facility] [address] [facility] [address] [place] [phone] Delvis Cheek MD 125 [facility] 660 [place] [phone] 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 documented as of this encounter Visit Diagnoses Not on filedocumented in this encounter Care Teams Employee Service Officer Relationship Specialty Start Date End Date Cheo Santoyo DO [address] [place] [phone] PCP - General Family Medicine 07/06/23 documented as of this encounter
--- OUTSIDE RECORDS SUMMARY | 2024-01-13 03:20 | XMS_ITS | Encounter Summary ---
Author Organization Jose Alejandro Kit [facility] Address [address] [place] [address] Care Team Providers Care Curriculum Development Specialist Name Role Phone Unavailable Primary Care Provider Unavailabl e Encounter Details Date Type Department Care Team (Late st Contact Info) Description 07/16/2020 6:07 AM EST - 07/19/2020 4:53 PM EST Hospital Encounter [facility] HISTORICAL CONVERSIONS [address] [place] [address] Delvis Cheek MD [address] [place] [phone] Social History Tobacco Use Types Packs/Day [...] note were not included. Inpatient Patient Summary [facility]ly [facility] [address] [place], [place] [id number] Patient Discharge Instructions Name: TESS COLEMAN Justo Current Date: 07/19/2020 16:00:23 : 1955 FIN: [id number] Patient Address: [address] [facility] [address] Patient Primary Care Provider: Name: NADIA SANON [...] are reflected below: New Medications YOHANA DAVID [facility], [address] [facility] [address] [place], [place] [id number], docusate (Colace 100 mg oral capsule) 1 [...] (given by mouth) every day. Last Dose: [facility] would like to thank you for allowing us to assist you with your healthcare needs. The following includes patient education materials and information regarding your injury/illness. TESS COLEMAN has been given the following list of follow-up instructions, prescriptions, and patient education materials: Follow-up Instructions: With: Address: When: DELVIS SANCHEZ [address] [facility] [address] [place] [address] In 1 week Comments: Follow up with Dr. Mohamud or Leanna DALLAS in 10-14 days from surgery for staple removal. [facility] at [phone] to schedule appointment. With: Address: When: NADIA SANON [address] [facility] [address] [place] [address] Business (1) It is important [...] signs, call to get immediate medical attention! [facility] allows you to manage your health, view your test results, and retrieve your discharge documents from your hospital stay securely and conveniently from your computer. To begin the enrollment process, visit [email or web address]. Click on ???Sign up now?? under [facility]. * Leanna Moulton PA - 07/19/2020 4:00 PM EST Inpatient Clinical Summary [facility] Post-Acute Care Transfer Instructions PERSON INFORMATION Name: TESS COLEMAN FIN#: [id number] PHYSICIANS Admitting Physician: DELVIS BYNUM Attending Physician: DELVIS BYNUM PCP: NADIA SANON Discharge Diagnosis: Arthritis; Ryan esophagus; DDD (degenerative disc disease), lumbar; Diabetes; GERD (gastroesophageal reflux disease); High cholesterol; History of kidney stones; Hypertension;Mass of colon; Seasonal allergies; Sleep apnea; Spinal stenosis Comment: PATIENT EDUCATION INFORMATION Instructions: Medication Leaflets: Follow-up: With: Address: When: DELVIS SANCHEZ [address] [place] [address] [place] [address] In 1 week Comments: Follow up with Dr. Mohamud or Leanna DALLAS in 10-14 days from surgery for staple removal. [facility] at [phone] to schedule appointment. With: Address: When: NADIA SANON [address] [facility] [place] [address] Business (1) MEDICATION LIST Medication Reconciliation at Discharge: New Medications [facility] [employer] [facility], [address] [employer] [place], [place] [id number], docusate (Colace 100 mg oral capsule) 1 [...] this encounter Progress Notes * Historical Provider, [facility] - 07/17/2020 3:25 PM EST Dietary Progress [...] kg? BMI: 31.7-obese, class I? 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 Patient [...] from surgery, recommended avoiding trigger foods. Good case advocate-goodcompliance anticipated. Contact information provided. Patient stated understanding. [...] RD prn. Jess Ricks, MS, RD, LD, [facility] Office:[phone]-Telemediq: Clinical Nutrition Signature Line Electronically Signed on 07/17/2020 03:25 PM EST Jess Ricks * Historical Provider, [facility] - 07/17/2020 9:06 AM EST PT Time [...] Dr. [address] [place] [address] Martell Calderon MD [address] [place] [address] TREMORS/ MEDICARE, FOR LIFE 03/28/2024 8:30 AM EDT Office Visit Primary Care - [address] [address] Cheo Santoyo, DO [address] [place] [address] AWV 04/06/2024 9:45 AM EST Lab [facility] - [facility] [address] [facility] [address] [place] [phone] CBCMP,CEA,FEST 04/06/2024 10:15 AM EST Office Visit [facility] - [facility] [address] [facility] [address] [place] [phone] Georgi Butterfield MD [address] [facility] [address] [place] [address] 6 MTH FU W/LABS, REV SCAN 04/13/2024 9:30 AM EST Office Visit Surgical Oncology - [facility] [address] [facility] [address] [place] [phone] Delvis Cheek MD [address] [facility] [address] [place] [address] 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 06/19/2024 10:30 AM EST Office Visit Orthopaedics- Les Valencia [address] [facility] [address] [place] [phone] Karly Bautista PA [address] [place] [address] annual visit from date of [...] CA RE TEST ORDERABLES Performing Organization Address [facility] Co de Phone Number RS CERNER CONVERSION * (ABNORMAL) POCT Glucose (07/19/2020 7:30 AM EST) POC Glucose 194.0(H) 70.0 - 120.0 mg/dL [facility] CERNER CONVERSION Comment:Performing Lab: RH I T1000 POC 07/19/2020 7:30 AM EST 07/19/2020 7:30 AM EST Comment:Blood Delvis Davis MD POINT OF CA RE TEST ORDERABLES Performing Organization Address City/[facility] Co de Phone Number RS [...] AM EST Comment:Blood Leanna DALLAS CHEMISTRY ORDERABLES [facility] CON[facility] * CBC with Auto Differential (07/19/2020 [...] PA HEMATOLOGY ORDERABLE S Performing Organization Address [facility] de Phone Number [facility] CERNER CONVERSION * (ABNORMAL) POCT Glucose (07/18/2020 9:13 PM EST) POC Glucose 148.0(H) 70.0 - 120.0 mg/dL [facility] CERNER CONVERSION Comment:Performing Lab: RH I T1000 POC 07/18/2020 9:13 PM EST 07/18/2020 9:13 PM EST Comment:Blood Delvis Davis MD POINT OF CA RE TEST ORDERABLES Performing Organization Address City/[facility] Co de Phone Number [facility] CERNER CONVERSION * POCT Glucose (07/18/2020 4:39 PM EST) POC Glucose 116.0 70.0 - 120.0 mg/dL RS CERNER CONVERSION Comment:Performing Lab: RH I T1000 POC 07/18/2020 4:39 PM EST 07/18/2020 4:39 PM EST Comment:Blood Delvis Davis MD POINT OF CA RE TEST ORDERABLES Performing Organization Address City/[facility] Co de Phone Number [facility] CERNER CONVERSION * POCT Glucose (07/18/2020 11:45 AM EST) POC Glucose 110.0 70.0 - 120.0 mg/dL [facility] CERNER CONVERSION Comment:Performing Lab: RH I T1000 POC 07/18/2020 11:4 5 AM EST 07/18/2020 11:45 AM EST Comment:Blood Delvis Davis MD POINT [place] RE TEST ORDERABLES Performing Organization Address City/[facility] Co de Phone Number RS CERNER CONVERSION * (ABNORMAL) POCT Glucose (07/18/2020 7:44 AM EST) POC Glucose 131.0(H) 70.0 - 120.0 mg/dL [facility] CERNER CONVERSION Comment:Performing Lab: RH I T1000 POC 07/18/2020 7:44 AM EST 07/18/2020 7:44 AM EST Comment:Blood Delvis Davis MD POINT [facility] RE TEST ORDERABLES Performing Organization Address City/[facility] Co de Phone Number RS [...] (ABNORMAL) Hemoglobin A1C (07/18/2020 5:30 AM EST) [facility] Hemoglobin A1C 6.5(H) 4.0 - 6.0 % [...] Leanna DALLAS CHEMISTRY ORDERABLES Performing Organization Address City/[facility]/ZIP Co de Phone Number RS CERNER CONVERSION * (ABNORMAL) POCT Glucose (07/17/2020 9:43 PM EST) POC Glucose 127.0(H) 70.0 - 120.0 mg/dL [facility] CERNER CONVERSION Comment:Performing Lab: RH I T1000 POC 07/17/2020 9:43 PM EST 07/17/2020 9:43 PM EST Comment:Blood Delvis Davis MD POINT OF [place] RE TEST ORDERABLES Performing Organization Address [facility] Co de Phone Number [facility] CERNER CONVERSION * (ABNORMAL) POCT Glucose (07/17/2020 4:51 PM EST) POC Glucose 176.0(H) 70.0 - 120.0 mg/dL [facility] CERNER CONVERSION Comment:Performing Lab: RH I T1000 POC 07/17/2020 4:51 PM EST 07/17/2020 4:51 PM EST Comment:Blood Delvis Davis MD POINT OF [place] RE TEST ORDERABLES Performing Organization Address City/[facility] Co de Phone Number [facility] CERNER CONVERSION * (ABNORMAL) POCT Glucose (07/17/2020 12:24 PM EST) POC Glucose 141.0(H) 70.0 - 120.0 mg/dL [facility] CERNER CONVERSION Comment:Performing Lab: RH I T1000 POC 07/17/2020 12:2 4 PM EST 07/17/2020 12:24 PM EST Comment:Blood Delvis Davis MD POINT OF CA RE TEST ORDERABLES Performing Organization Address [facility] de Phone Number [facility] CERNER CONVERSION * POCT Glucose (07/17/2020 9:26 AM EST) POC Glucose 109.0 70.0 - 120.0 mg/dL RS CERNER CONVERSION Comment:Performing Lab: RH I T1000 POC 07/17/2020 9:26 AM EST 07/17/2020 9:26 AM EST Comment:Blood Delvis Davis MD POINT OF CA RE TEST ORDERABLES Performing Organization Address [facility] de Phone Number [facility] CERNER CONVERSION * (ABNORMAL) POCT Glucose (07/17/2020 8:24 AM EST) POC Glucose 155.0(H) 70.0 - 120.0 mg/dL RS CERNER CONVERSION Comment:Performing Lab: RH I T1000 POC 07/17/2020 8:24 AM EST 07/17/2020 8:24 AM EST Comment:Blood Delvis Davis MD POINT OF CA RE TEST ORDERABLES Performing Organization Address City/[facility] Co de Phone Number [facility] CERNER CONVERSION * POCT Glucose (07/17/2020 7:21 AM EST) POC Glucose 109.0 70.0 - 120.0 mg/dL [facility] CERNER CONVERSION Comment:Performing Lab: RH I T1000 POC 07/17/2020 7:21 AM EST 07/17/2020 7:21 AM EST Comment:Blood Delvis Davis MD POINT OF CA RE TEST ORDERABLES Performing Organization Address City/[facility] de Phone Number RS CERNER CONVERSION * POCT Glucose (07/17/2020 6:06 AM EST) POC Glucose 100.0 70.0 - 120.0 mg/dL [facility] CERNER CONVERSION Comment:Performing Lab: RH I T1000 POC 07/17/2020 6:06 AM EST 07/17/2020 6:06 AM EST Comment:Blood Delvis Davis MD POINT OF CA RE TEST ORDERABLES Performing Organization Address [facility] de Phone Number RS CERNER CONVERSION * Phosphorus (07/17/2020 5:13 AM EST) Phosphorus 3.9 2.5 - 4.5 mg/dL [facility] CERNER CONVERSION Comment:Performing Lab: RH C marybeth 6000 Pending 07/17/2020 5:13 AM EST 07/17/2020 5:30 AM EST Comment:Blood Leanna DALLAS CHEMISTRY ORDERABLES Performing Organization Address City/[facility] de Phone Number RS CERNER [...] AM EST Comment:Blood Leanna DALLAS CHEMISTRY ORDERABLES [facility] CONVERSION * (ABNORMAL) CBC with Auto Differential [...] PA HEMATOLOGY ORDERABLE S Performing Organization Address [facility] de Phone Number [facility] CERNER CONVERSION * POCT Glucose (07/17/2020 4:52 AM EST) POC Glucose 99.0 70.0 - 120.0 mg/dL [facility] CERNER CONVERSION Comment:Performing Lab: RH I T1000 POC 07/17/2020 4:52 AM EST 07/17/2020 4:52 AM EST Comment:Blood Delvis Davis MD POINT OF CA RE TEST ORDERABLES Performing Organization Address [facility] de Phone Number RS CERNER CONVERSION * (ABNORMAL) POCT Glucose (07/17/2020 3:37 AM EST) POC Glucose 121.0(H) 70.0 - 120.0 mg/dL [facility] CERNER CONVERSION Comment:Performing Lab: RH I T1000 POC 07/17/2020 3:37 AM EST 07/17/2020 3:37 AM EST Comment:Blood Delvis Davis MD POINT OF CA RE TEST ORDERABLES Performing Organization Address [facility] de Phone Number RS CERNER CONVERSION * (ABNORMAL) POCT Glucose (07/17/2020 2:24 AM EST) POC Glucose 129.0(H) 70.0 - 120.0 mg/dL [facility] CERNER CONVERSION Comment:Performing Lab: RH I T1000 POC 07/17/2020 2:24 AM EST 07/17/2020 2:24 AM EST Comment:Blood Delvis Davis MD POINT OF CA RE TEST ORDERABLES Performing Organization Address City/State/[facility] Co de Phone Number [facility] CERNER CONVERSION * (ABNORMAL) POCT Glucose (07/17/2020 1:07 AM EST) POC Glucose 143.0(H) 70.0 - 120.0 mg/dL RS CERNER CONVERSION Comment:Performing Lab: RH I T1000 POC 07/17/2020 1:07 AM EST 07/17/2020 1:07 AM EST Comment:Blood Delvis Davis MD POINT OF CA RE TEST ORDERABLES Performing Organization Address [facility] de Phone Number [facility] CERNER CONVERSION * POCT Glucose (07/16/2020 10:57 PM EST) POC Glucose 115.0 70.0 - 120.0 mg/dL RS CERNER CONVERSION Comment:Performing Lab: RH I T1000 POC 07/16/2020 10:5 7 PM EST 07/16/2020 10:57 PM EST Comment:Blood Delvis Davis MD POINT OF CA RE TEST ORDERABLES Performing Organization Address [facility] Co de Phone Number [facility] CERNER CONVERSION * POCT Glucose (07/16/2020 8:53 PM EST) POC Glucose 112.0 70.0 - 120.0 mg/dL RS CERNER CONVERSION Comment:Performing Lab: RH I T1000 POC 07/16/2020 8:53 PM EST 07/16/2020 8:53 PM EST Comment:Blood Delvis Davis MD POINT OF CA RE TEST ORDERABLES Performing Organization Address City/State/[facility] Co de Phone Number [facility] CERNER CONVERSION * (ABNORMAL) POCT Glucose (07/16/2020 7:45 PM EST) POC Glucose 122.0(H) 70.0 - 120.0 mg/dL [facility] CERNER CONVERSION Comment:Performing Lab: RH I T1000 POC 07/16/2020 7:45 PM EST 07/16/2020 7:45 PM EST Comment:Blood Delvis Davis MD POINT OF CA RE TEST ORDERABLES Performing Organization Address [facility] Co de Phone Number [facility] CERNER CONVERSION * (ABNORMAL) POCT Glucose (07/16/2020 6:35 PM EST) POC Glucose 121.0(H) 70.0 - 120.0 mg/dL RS CERNER CONVERSION Comment:Performing Lab: RH I T1000 POC 07/16/2020 6:35 PM EST 07/16/2020 6:35 PM EST Comment:Blood Delvis Davis MD POINT OF CA RE TEST ORDERABLES Performing Organization Address [facility] de Phone Number RS CERNER CONVERSION * (ABNORMAL) POCT Glucose (07/16/2020 5:24 PM EST) POC Glucose 132.0(H) 70.0 - 120.0 mg/dL [facility] CERNER CONVERSION Comment:Performing Lab: RH I T1000 POC 07/16/2020 5:24 PM EST 07/16/2020 5:24 PM EST Comment:Blood Delvis Davis MD POINT OF CA RE TEST ORDERABLES Performing Organization Address City/[facility] Co de Phone Number [facility] CERNER CONVERSION * (ABNORMAL) POCT Glucose (07/16/2020 4:25 PM EST) POC Glucose 146.0(H) 70.0 - 120.0 mg/dL [facility] CERNER CONVERSION Comment:Performing Lab: RH I T1000 POC 07/16/2020 4:25 PM EST 07/16/2020 4:25 PM EST Comment:Blood Delvis Davis MD POINT OF CA RE TEST ORDERABLES Performing Organization Address City/[facility] de Phone Number [facility] CERNER CONVERSION * POCT Glucose (07/16/2020 2:24 PM EST) POC Glucose 111.0 70.0 - 120.0 mg/dL RS CERNER CONVERSION Comment:Performing Lab: RH I T1000 POC 07/16/2020 2:24 PM EST 07/16/2020 2:24 PM EST Comment:Blood Delvis Davis MD POINT OF CA RE TEST ORDERABLES Performing Organization Address [facility] Phone Number [facility] CERNER CONVERSION * (ABNORMAL) POCT Glucose (07/16/2020 1:18 PM EST) POC Glucose 124.0(H) 70.0 - 120.0 mg/dL RS CERNER CONVERSION Comment:Performing Lab: RH I T1000 POC 07/16/2020 1:18 PM EST 07/16/2020 1:18 PM EST Comment:Blood Delvis Davis MD POINT OF CA RE TEST ORDERABLES Performing Organization Address [facility] de Phone Number [facility] CERNER CONVERSION * POCT Glucose (07/16/2020 12:07 PM EST) POC Glucose 116.0 70.0 - 120.0 mg/dL RS CERNER CONVERSION Comment:Performing Lab: RH I T1000 POC 07/16/2020 12:0 7 PM EST 07/16/2020 12:07 PM EST Comment:Blood Delvis Davis MD POINT OF CA RE TEST ORDERABLES Performing Organization Address City/[facility] Co de Phone Number [facility] CERNER CONVERSION * (ABNORMAL) POCT Glucose (07/16/2020 11:02 AM EST) POC Glucose 165.0(H) 70.0 - 120.0 mg/dL [facility] CERNER CONVERSION Comment:Performing Lab: RH I T1000 POC 07/16/2020 11:0 2 AM EST 07/16/2020 11:02 AM EST Comment:Blood Delvis Davis MD POINT OF CA RE TEST ORDERABLES Performing Organization Address City/[facility] Co de Phone Number [facility] CERNER CONVERSION * (ABNORMAL) POCT Glucose (07/16/2020 10:33 AM EST) POC Glucose 195.0(H) 70.0 - 120.0 mg/dL RS CERNER CONVERSION Comment:Performing Lab: RH I T1000 POC 07/16/2020 10:3 3 AM EST 07/16/2020 10:33 AM EST Comment:Blood Delvis Davis MD POINT OF CA RE TEST ORDERABLES Performing Organization Address [facility] Co de Phone Number [facility] CERNER CONVERSION * (ABNORMAL) POCT Glucose (07/16/2020 10:11 AM EST) POC Glucose 183.0(H) 70.0 - 120.0 mg/dL [facility] CERNER CONVERSION Comment:Performing Lab: RH I T1000 POC 07/16/2020 10:1 1 AM EST 07/16/2020 10:11 AM EST Comment:Blood Delvis Davis MD POINT OF CA RE TEST ORDERABLES Performing Organization Address City/[facility] Co de Phone Number [facility] CERNER CONVERSION * POCT Glucose (07/16/2020 6:52 [...]
--- OUTSIDE RECORDS SUMMARY | 2024-01-13 03:20 | XMS_ITS | Encounter Summary ---
Author Organization Jose Alejandro Pantoja [facility] Address [address] [place] [address] Care Team Providers Care Diesel Powerplant Supervisor Name Role Phone YarelisCheo friend Moshe REYES Primary Care Provider [phone] Encounter Details Date Type Department Care Team [...] EDT Office Visit Neurology - [facility] [address] [facility] [address] [place] [address] Martell Calderon MD [address] [facility] [address] [place] [address] TREMORS/ MEDICARE, FOR LIFE 03/28/2024 8:30 AM EDT Office Visit Primary Care - [address] [phone] Cheo Santoyo, [address] [address] AWV 04/06/2024 9:45 AM EST Lab [facility] - [facility] [address] [facility] [address] [place] [address] CBCMP,CEA,FEST 04/06/2024 10:15 AM EST Office Visit [facility] - [facility] [address] [facility] [address] [place] [address] Georgi Butterfield MD [address] [place] [address] 6 MTH FU W/LABS, REV SCAN 04/13/2024 9:30 AM EST Office Visit Surgical Oncology - [facility] [address] [facility] [address] [place] [phone] Delvis Cheek MD 125 [facility] [address] [place] [phone] 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 documented as of this encounter Visit Diagnoses Not on filedocumented in this encounter Care Teams Diesel Powerplant Supervisor Relationship Specialty Start Date End Date Cheo Santoyo DO [address] [place] [phone] PCP - General Family Medicine 07/06/23 documented as of this encounter
--- OUTSIDE RECORDS SUMMARY | 2024-01-13 03:20 | XMS_ITS | Encounter Summary ---
Author Organization Jose Alejandro Pantoja [facility] Address [address] [place] [address] Care Team Providers Care Upholstery Sewer Name Role Phone YarelisCheo friend Moshe REYES Primary Care Provider [phone] Encounter Details Date Type Department Care Team [...] Visit Neurology - [facility] [address] [facility] [address] [place] [address] Martell Calderon MD [address] [facility] [address] [place] [address] TREMORS/ MEDICARE, FOR LIFE 03/28/2024 8:30 AM EDT Office Visit Primary Care - [address] [phone] Cheo Santoyo, [address] [address] AWV 04/06/2024 9:45 AM EST Lab [facility] - [facility] [address] [facility] [address] [place] [address] CBCMP,CEA,FEST 04/06/2024 10:15 AM EST Office Visit [facility] - [facility] [address] [facility] [address] [place] [address] Georgi Butterfield MD [address] [place] [address] 6 MTH FU W/LABS, REV SCAN 04/13/2024 9:30 AM EST Office Visit Surgical Oncology - [facility] [address] [facility] [address] [place] [phone] Delvis Cheek MD 125 [facility] [address] [place] [phone] 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 [address] [place] [phone] Karly Bautista, BURT 180 [facility] [address] [place] [address] annual visit from date of surgery May/Jul 2024 for bilateral TKA and right LIZZ with Karly. documented as of this encounter Visit Diagnoses Not on filedocumented in this encounter Care Teams Upholstery Sewer Relationship Specialty Start Date End Date Cheo Santoyo DO [address] [place] [phone] PCP - General Family Medicine 07/06/23 documented as of this encounter
--- OUTSIDE RECORDS SUMMARY | 2024-01-13 03:20 | XMS_ITS | Encounter Summary ---
Author Organization Jose Alejandro Pantoja [facility] Address [address] [place] [address] Care Team Providers Care Regional Driver Name Role Phone Cheo Santoyo Moshe REYES Primary Care Provider [phone] Encounter Details Date Type Department Care Team [...] 9:00 AM EDT Office Visit Neurology - [facility] [address] [facility] [address] [place] [address] Martell Calderon MD 2144 [facility] [address] [place] [address] TREMORS/ MEDICARE, FOR LIFE 03/28/2024 8:30 AM EDT Office Visit Primary Care - [address] [phone] Cheo Santoyo, [address] [address] AWV 04/06/2024 9:45 AM EST Lab [facility] [address] [facility] [address] [place] [address] CBCMP,CEA,FEST 04/06/2024 10:15 AM EST Office Visit [facility] - [facility] [address] [facility] [address] [place] [address] Georgi Butterfield MD [address] [place] [address] 6 MTH FU W/LABS, REV SCAN 04/13/2024 9:30 AM EST Office Visit Surgical Oncology - [facility] [address] [facility] [address] [place] [address] Delvis Cheek MD 125 [facility] 660 [place] [address] 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 documented as of this encounter Visit Diagnoses Not on filedocumented in this encounter Care Teams Regional Driver Relationship Specialty Start Date End Date Cheo Santoyo DO [address] [place] [phone] PCP - General Family Medicine 07/06/23 documented as of this encounter
--- OUTSIDE RECORDS SUMMARY | 2024-01-13 03:20 | XMS_ITS | Encounter Summary ---
Author Organization Jose Alejandro Pantoja [facility] Address [address] [place] [address] Care Team Providers Care Associate Professor Of Criminal Justice Name Role Phone Cheo Santoyo Primary Care Provider Encounter Details Date Type Department Care Team (Late st Contact Info) Description 04/17/2021 Legacy Historical Encounter [facility] HISTORICAL CONVERSIONS 316 [place], [place] [id number] Delvis Cheek MD [address] [address] Social History Tobacco Use Types [...] Office Visit Neurology - [facility] [address] [facility] [address] [place] [address] Martell Calderon MD 214 [facility] [address] [place] [address] TREMORS/ MEDICARE, FOR LIFE 03/28/2024 8:30 AM EDT Office Visit Primary Care - [address] [address] [place] [address] [place] [address] AWV 04/06/2024 9:45 AM EST Lab [facility] - [facility] [address] [facility] [address] [place] [address] CBCMP,CEA,FEST 04/06/2024 10:15 AM EST Office Visit [place] - [facility] 2084 [facility] [place] [address] [place] [address] Georgi Butterfield MD 35[address] [facility] [address] [place] [address] 6 MTH FU W/LABS, REV SCAN 04/13/2024 9:30 AM EST Office Visit Surgical Oncology - [facility] [address] [facility] [address] [place] [address] Delvis Cheek MD 125 [facility] 660 [place] [address] 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 documented as of this encounter Visit Diagnoses Not on filedocumented in this encounter Care Teams Associate Professor Of Criminal Justice Relationship Specialty Start Date End Date Cheo Santoyo DO [address] [place] [phone] PCP - General Family Medicine 07/06/23 documented as of this encounter
--- OUTSIDE RECORDS SUMMARY | 2024-01-13 03:20 | XMS_ITS | Encounter Summary ---
Author Organization Jose Alejandro Pantoja [facility] Address [address] [place] [address] Care Team Providers Care Open Hearth Furnace Operator Helper Name Role Phone Cheo Santoyo Primary Care Provider [phone] Encounter Details Date Type Department Care Team (Late st Contact Info) Description 07/25/2020 Legacy Historical Encounter [facility] HISTORICAL CONVERSIONS 316 [place] [address] Delvis Cheek MD [address] [address] Social History Tobacco Use Types [...] Visit Neurology - [facility] [address] [facility] [address] [place] [address] Martell Calderon MD 214 [facility] [address] [place] [address] TREMORS/ MEDICARE, FOR LIFE 03/28/2024 8:30 AM EDT Office Visit Primary Care - [address] [address] [place] [address] [place] [address] AWV 04/06/2024 9:45 AM EST Lab [facility] - [facility] [address] [facility] [address] [place] [address] CBCMP,CEA,FEST 04/06/2024 10:15 AM EST Office Visit [place] [facility] - [facility] [address] [facility] [address] [place] [address] Georgi Butterfield MD 3510 [facility] [address] [place] [address] 6 MTH FU W/LABS, REV SCAN 04/13/2024 9:30 AM EST Office Visit Surgical Oncology - [facility] [address] [facility] [address] [place] [address] Delvis Cheek MD 125 [facility] 660 [place] [address] 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 [address] [place] [phone] Karly Bautista, [place] [address] [place] [address] annual visit from date of surgery May/Jul 2024 for bilateral TKA and right LIZZ with Karly. documented as of this encounter Visit Diagnoses Not on filedocumented in this encounter Care Teams Open Hearth Furnace Operator Helper Relationship Specialty Start Date End Date Cheo Santoyo DO [address] [place] [phone] PCP - General Family Medicine 07/06/23 documented as of this encounter
--- OUTSIDE RECORDS SUMMARY | 2024-01-13 03:20 | XMS_ITS | Encounter Summary ---
Author Organization Jose Alejandro Raymundolinnea [facility] Address [address] [place] [address] Care Team Providers Care Shear Tender Name Role Phone Cheo Santoyo Primary Care Provider [phone] Encounter Details Date Type Department Care Team (Late st Contact Info) Description 05/09/2021 Legacy Historical Encounter [facility] HISTORICAL CONVERSIONS 316 [place], [place] [phone] Maurice Wood II, MD 6 [facility] [address] [place] [address] Social History Tobacco Use Types Packs/Day Years [...] 9:00 AM EDT Office Visit Neurology - [facility] [address] [facility] [address] [place] [address] Martell Calderon MD 214 [facility] [address] [place] [address] TREMORS/ MEDICARE, FOR LIFE 03/28/2024 8:30 AM EDT Office Visit Primary Care - [address] [address] [place] [address] [place] [address] AWV 04/06/2024 9:45 AM EST Lab [facility] - [facility] 2084 [facility] [address] [place] [address] CBCMP,CEA,FEST 04/06/2024 10:15 AM EST Office Visit [place] [facility] - [facility] 2084 [facility] [address] [place] [address] Georgi Butterfield MD [address] [place] [address] 6 MTH FU W/LABS, REV SCAN 04/13/2024 9:30 AM EST Office Visit Surgical Oncology - [facility] [address] [facility] [address] [place] [address] Delvis Cheek MD 125 [facility] 660 [place] [address] 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 documented as of this encounter Visit Diagnoses Not on filedocumented in this encounter Care Teams Shear Tender Relationship Specialty Start Date End Date Cheo Santoyo DO [address] [place] [phone] PCP - General Family Medicine 07/06/23 documented as of this encounter
--- OUTSIDE RECORDS SUMMARY | 2024-01-13 03:20 | XMS_ITS | Encounter Summary ---
Author Organization Jose Alejandro Pantoja [facility] Address [address] [place] [address] Care Team Providers Care Upper Shaper Name Role Phone YarelisCheo friend Moshe REYES Primary Care Provider [phone] Encounter Details Date Type Department Care Team [...] AM EDT Office Visit Neurology - [facility] [address] [facility] [address] [place] [address] Martell Calderon MD 2144 [facility] [address] [place] [address] TREMORS/ MEDICARE, FOR LIFE 03/28/2024 8:30 AM EDT Office Visit Primary Care - [address] [phone] Cheo Santoyo, [address] [address] AWV 04/06/2024 9:45 AM EST Lab [place] [facility] - [facility] 2084 [facility] [address] [place] [address] CBCMP,CEA,FEST 04/06/2024 10:15 AM EST Office Visit [place] [facility] - [facility] 2084 [facility] [address] [place] [address] Georgi Butterfield MD [address] [place] [address] 6 MTH FU W/LABS, REV SCAN 04/13/2024 9:30 AM EST Office Visit Surgical Oncology - [facility] 2084 [facility] [address] [place] [address] Delvis Cheek MD 125 [facility] 660 [place] [address] 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 documented as of this encounter Visit Diagnoses Not on filedocumented in this encounter Care Teams Upper Shaper Relationship Specialty Start Date End Date Cheo Santoyo DO [address] [place] [phone] PCP - General Family Medicine 07/06/23 documented as of this encounter
--- OUTSIDE RECORDS SUMMARY | 2024-01-13 03:20 | XMS_ITS | Encounter Summary ---
Author Organization Jose Alejandro Pantoja [facility] Address [address] [place] [address] Care Team Providers Care River Transportation Worker Name Role Phone Carter Santoyoony Moshe REYES Primary Care Provider [phone] Encounter Details Date Type Department Care Team (Late st Contact Info) Description 01/13/2021 Legacy Historical Encounter [facility] HISTORICAL Georgi Butterfield MD [address] [place] [address] Social History Tobacco Use Types Packs/Day Years [...] EDT Office [facility] [facility] [address] [place] [address] Martell Calderon MD 214 [facility] [address] [place] [address] TREMORS/ MEDICARE, FOR LIFE 03/28/2024 8:30 AM EDT Office Visit Primary Care - [address] [address] [place] [address] [place] [address] AWV 04/06/2024 9:45 AM EST Lab [place] [facility] 2084 [facility] [address] [place] [address] CBCMP,CEA,FEST 04/06/2024 10:15 AM EST Office Visit [place] [facility] 2084 [facility] [address] [place] [address] Georgi Butterfield MD [address] [place] [address] 6 MTH FU W/LABS, REV SCAN 04/13/2024 9:30 AM EST Office Visit Surgical Oncology - [facility] [address] [facility] [address] [place] [address] Delvis Cheek MD 125 [facility] 660 [place] [address] 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 documented as of this encounter Visit Diagnoses Not on filedocumented in this encounter Care Teams River Transportation Worker Relationship Specialty Start Date End Date Cheo Santoyo DO [address] [place] [phone] PCP - General Family Medicine 07/06/23 documented as of this encounter
--- OUTSIDE RECORDS SUMMARY | 2024-01-13 03:20 | XMS_ITS | Encounter Summary ---
Author Organization Jose Alejandro Raymundolinnea [facility] Address [address] [place] [address] Care Team Providers Care Superintendent Communications Name Role Phone Unavailable Primary Care Provider Unavailabl e Encounter Details Date Type Department Care Team (Late st Contact Info) Description 07/12/2020 12:52 PM EST - 07/12/2020 11:59 PM EST Hospital Encounter [facility] HISTORICAL CONVERSIONS 316 [place] [address] Delvis Cheek MD [address] [address] Social History Tobacco Use Types [...] Dr. [address] [place] [address] Martell Calderon MD 2144 [facility] [address] [place] [address] TREMORS/ MEDICARE, FOR LIFE 03/28/2024 8:30 AM EDT Office Visit Primary Care - [address] [address] Cheo Santoyo DO 1112 [place] [address] AWV 04/06/2024 9:45 AM EST Lab [place] [facility] - [facility] 20[address] [facility] [address] [place] [address] CBCMP,CEA,FEST 04/06/2024 10:15 AM EST Office Visit [place] [facility] - [facility] [address] [facility] [address] [place] [address] Georgi Butterfield MD [address] [place] [address] 6 MTH FU W/LABS, REV SCAN 04/13/2024 9:30 AM EST Office Visit Surgical Oncology - [facility] [address] [facility] [address] [place] [address] Delvis Cheek MD 125 [facility] [address] [place] [address] 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 It has not been cleared or approved [...] media containing nasopharyngeal swabs followed by reverse bulk intake worker and real-time PCR on a [employer] 12K Flex. Fluorescent probe sequences ([employer] COVID-19 Combo Kit) are used to amplify [...] patient's medical history. This test performed by [employer], [address], [place] [address] CLIA#: [id number] Interpretive Data: Performing Lab: ?? Dominick 07/12/2020 11:0 0 AM EST 07/12/2020 12:53 PM EST Comment:Nasopharyng Delvis Davis MD MICROBIOLOG Y - GENERAL ORDERABLES Performing Organization Address City/State/[facility] Co de Phone Number [facility] CERNER CONVERSION documented in this encounter Visit Diagnoses Not on filedocumented in this encounter
--- OUTSIDE RECORDS SUMMARY | 2024-01-13 03:20 | XMS_ITS | Encounter Summary ---
Author Organization Jose Alejandro Pantoja [facility] Address [address] [place] [address] Care Team Providers Care Senior Technical Recruiter Name Role Phone YarelisCheo friend Moshe REYES Primary Care Provider [phone] Encounter Details Date Type Department Care Team [...] - [facility] [address] [facility] [address] [place] [address] Martell Calderon MD 2144 [facility] [address] [place] [address] TREMORS/ MEDICARE, FOR LIFE 03/28/2024 8:30 AM EDT Office Visit Primary Care - [address] [phone] Cheo Santoyo, [address] [address] AWV 04/06/2024 9:45 AM EST Lab [place] [facility] - [facility] 2084 [facility] [place] [address] [place] [address] CBCMP,CEA,FEST 04/06/2024 10:15 AM EST Office Visit [place] [facility] - [facility] 2084 [facility] [place] [address] [place] [address] Georgi Butterfield MD [address] [place] [address] 6 MTH FU W/LABS, REV SCAN 04/13/2024 9:30 AM EST Office Visit Surgical Oncology - [facility] 2084 [facility] [place] [address] [place] [address] Delvis Cheek MD 125 [facility] 660 [place] [address] 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 documented as of this encounter Visit Diagnoses Not on filedocumented in this encounter Care Teams Senior Technical Recruiter Relationship Specialty Start Date End Date Cheo Santoyo DO [address] [place] [phone] PCP - General Family Medicine 07/06/23 documented as of this encounter
--- OUTSIDE RECORDS SUMMARY | 2024-01-13 03:20 | XMS_ITS | Encounter Summary ---
Author Organization Jose Alejandro Pantoja [facility] Address [address] [place] [address] Care Team Providers Care Electrical Systems Designer Name Role Phone Carter Santoyoony Moshe REYES Primary Care Provider [phone] Encounter Details Date Type Department Care Team (Late st Contact Info) Description 09/11/2020 Legacy Historical Encounter [facility] AMB HISTORICAL Georgi Butterfield MD [address] [place] [address] Social History Tobacco Use Types Packs/Day Years [...] AM EDT Office [facility] 2144 [facility] [address] [place] [address] Martell Calderon MD 214 [facility] [address] [place] [address] TREMORS/ MEDICARE, FOR LIFE 03/28/2024 8:30 AM EDT Office Visit Primary Care - [address] [address] [place] [address] [place] [address] AWV 04/06/2024 9:45 AM EST Lab [place] [facility] 2084 [facility] [address] [place] [address] CBCMP,CEA,FEST 04/06/2024 10:15 AM EST Office Visit [place] [facility] 2084 [facility] [address] [place] [address] Georgi Butterfield MD [address] [place] [address] 6 MTH FU W/LABS, REV SCAN 04/13/2024 9:30 AM EST Office Visit Surgical Oncology - [facility] [address] [facility] [address] [place] [address] Delvis Cheek MD 125 [facility] 660 [place] [address] 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 documented as of this encounter Visit Diagnoses Not on filedocumented in this encounter Care Teams Electrical Systems Designer Relationship Specialty Start Date End Date Cheo Santoyo DO [address] [place] [phone] PCP - General Family Medicine 07/06/23 documented as of this encounter
--- OUTSIDE RECORDS SUMMARY | 2024-01-13 03:20 | XMS_ITS | Encounter Summary ---
Author Organization Jose Alejandro Pantoja [facility] Address [address] [place] [address] Care Team Providers Care Lithograph Printer Name Role Phone YarelisCheo friend Moshe REYES Primary Care Provider [phone] Encounter Details Date Type Department Care Team [...] 9:00 AM EDT Office Visit Neurology - [facility] 2144 [facility] [address] [place] [address] Martell Calderon MD 2144 [facility] [address] [place] [address] TREMORS/ MEDICARE, FOR LIFE 03/28/2024 8:30 AM EDT Office Visit Primary Care - [address] [phone] Cheo Santoyo, [address] [address] AWV 04/06/2024 9:45 AM EST Lab [facility] - [facility] 2084 [facility] [address] [place] [address] CBCMP,CEA,FEST 04/06/2024 10:15 AM EST Office Visit [place] [facility] - [facility] [address] [facility] [address] [place] [address] Georgi Butterfield MD [address] [place] [address] 6 MTH FU W/LABS, REV SCAN 04/13/2024 9:30 AM EST Office Visit Surgical Oncology - [facility] [address] [facility] [address] [place] [address] Delvis Cheek MD 125 [facility] 660 [place] [address] 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 documented as of this encounter Visit Diagnoses Not on filedocumented in this encounter Care Teams Lithograph Printer Relationship Specialty Start Date End Date Cheo Santoyo DO [address] [place] [phone] PCP - General Family Medicine 07/06/23 documented as of this encounter
--- OUTSIDE RECORDS SUMMARY | 2024-01-13 03:20 | XMS_ITS | Encounter Summary ---
Author Organization Jose Alejandro Pantoja [facility] Address [address] [place] [address] Care Team Providers Care Real Estate Operations Manager Name Role Phone Carter Santoyoony Moshe REYES Primary Care Provider [phone] Encounter Details Date Type Department Care Team (Late st Contact Info) Description 03/24/2021 [facility] Historical En[facility] AM[facility] HISTORICAL Georgi Butterfield MD [address] [place] [address] Social History Tobacco Use Types Packs/Day Years [...] 9:00 AM EDT [facility] 2144 [facility] [address] [place] [address] Martell Calderon MD 214 [facility] [address] [place] [address] TREMORS/ MEDICARE, FOR LIFE 03/28/2024 8:30 AM EDT Office Visit Primary Care - [address] [address] [place] [address] [place] [address] AWV 04/06/2024 9:45 AM EST [facility] [place] [facility] 2084 [facility] [address] [place] [address] CBCMP,CEA,FEST 04/06/2024 10:15 AM EST Office Visit [place] [facility] - [facility] 2084 [facility] [address] [place] [address] Georgi Butterfield MD [address] [place] [address] 6 MTH FU W/LABS, REV SCAN 04/13/2024 9:30 AM EST Office Visit Surgical Oncology - [facility] [address] [facility] [address] [place] [address] Delvis Cheek MD 125 [facility] [place] [facility] 660 [place] [address] 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 [address] [place] [address] Karly Bautista, BURT 180 [facility] 301 [place] [address] annual visit from date of surgery May/Jul 2024 for bilateral TKA and right LIZZ with Karly. documented as of this encounter Visit Diagnoses Not on filedocumented in this encounter Care Teams Real Estate Operations Manager Relationship Specialty Start Date End Date Cheo Santoyo DO [address] [place] [phone] PCP - General Family Medicine 07/06/23 documented as of this encounter
--- OUTSIDE RECORDS SUMMARY | 2024-01-13 03:20 | XMS_ITS | Encounter Summary ---
Author Organization Jose Alejandro Pantoja [facility] Address [address] [place] [address] Care Team Providers Care Business Rules Developer Name Role Phone Carter Santoyoony Moshe REYES Primary Care Provider Encounter Details Date Type Department Care Team (Late st Contact Info) Description 07/29/2020 Legacy Historical [facility]ORICAL Georgi Butterfield MD [address] [place] [address] Social History Tobacco Use Types Packs/Day Years [...] - [facility] 2144 [facility] [address] [place] [address] Martell Calderon MD 214 [facility] [place] [address] [place] [address] TREMORS/ MEDICARE, FOR LIFE 03/28/2024 8:30 AM EDT Office Visit Primary Care - [address] [address] [place] [address] [place] [address] AWV 04/06/2024 9:45 AM EST [facility] [place] [facility] 2084 [facility] [address] [place] [address] CBCMP,CEA,FEST 04/06/2024 10:15 AM EST Office Visit [place] [facility] 2084 [facility] [address] [place] [address] Georgi Butterfield MD [address] [place] [address] 6 MTH FU W/LABS, REV SCAN 04/13/2024 9:30 AM EST Office Visit Surgical Oncology - [facility] [address] [facility] [address] [place] [address] Delvis Cheek MD 125 [facility] 660 [place] [address] 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 [address] [place] [address] Karly Bautista, BURT 180 [facility] 301 [place] [address] annual visit from date of surgery May/Jul 2024 for bilateral TKA and right LIZZ with Karly. documented as of this encounter Visit Diagnoses Not on filedocumented in this encounter Care Teams Business Rules Developer Relationship Specialty Start Date End Date Cheo Santoyo DO [address] [place] [phone] PCP - General Family Medicine 07/06/23 documented as of this encounter
--- OUTSIDE RECORDS SUMMARY | 2024-01-13 03:20 | XMS_ITS | Encounter Summary ---
Author Organization Jose Alejandro Pantoja [facility] Address [address] [place] [address] Care Team Providers Care Insurance Agents Supervisor Name Role Phone YarelisCheo friend Moshe [...] Neurology - [facility] 2144 [facility] [address] [place] [address] Martell Calderon MD 2144 [facility] [place] [address] [place] [address] TREMORS/ MEDICARE, FOR LIFE 03/28/2024 8:30 AM EDT Office Visit Primary Care - [address] [phone] Cheo Santoyo, [address] [address] AWV 04/06/2024 9:45 AM EST Lab [place] [facility] - [facility] 2084 [facility] [address] [place] [address] CBCMP,CEA,FEST 04/06/2024 10:15 AM EST Office Visit [place] [facility] - [facility] 2084 [facility] [address] [place] [address] Georgi Butterfield MD [address] [place] [address] 6 MTH FU W/LABS, REV SCAN 04/13/2024 9:30 AM EST Office Visit Surgical Oncology - [facility] 2084 [facility] [address] [place] [address] Delvis Cheek MD 125 [facility] 660 [place] [address] 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 documented as of this encounter Visit Diagnoses Not on filedocumented in this encounter Care Teams Insurance Agents Supervisor Relationship Specialty Start Date End Date Cheo Santoyo DO [address] [place] [phone] PCP - General Family Medicine 07/06/23 documented as of this encounter
--- OUTSIDE RECORDS SUMMARY | 2024-01-13 03:21 | XMS_ITS | Encounter Summary ---
Author Organization Jose Alejandro liriano [facility] Address [address] [place] [address] Care Team Providers Care Sign Board Erector Name Role Phone Cheo Santoyo Primary Care Provider [phone] Encounter Details Date Type Department Care Team (Late st Contact Info) Description 01/22/2020 Legacy Historical Encounter [facility] HISTORICAL CONVERSIONS [address] [place], [place] [address] Tammy Rodriguez PA Social History Tobacco Use [...] [facility], [place] 2144 [facility] [address] [place] [address] Martell Calderon MD 2144 [facility] [address] [place], [place] [address] TREMORS/ MEDICARE, FOR LIFE 03/28/2024 8:30 AM EDT Office Visit Primary Care - [address] [address] Cheo Santoyo, [address] [place] [address] AWV 04/06/2024 9:45 AM EST Lab [place] [facility] - [facility] [place] 2084 [facility] [address] [place] [address] CBCMP,CEA,FEST 04/06/2024 10:15 AM EST Office Visit [place] [facility] - [facility] [place] 2084 [facility] [address] [place] [address] Georgi Butterfield MD [address] [place] [address] 6 MTH FU W/LABS, REV SCAN 04/13/2024 9:30 AM EST Office Visit Surgical Oncology - [facility] [place] 8 [facility] [address] [place] [address] Delvis Cheek MD 125 [facility] 660 [place] [address] 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 [address] [place] [address] Karly Bautista PA 180 [facility] 301 [place] [address] annual visit from date of surgery May/Jul 2024 for bilateral TKA and right LIZZ with Karly. documented as of this encounter Visit Diagnoses Not on filedocumented in this encounter Care Teams Sign Board Erector Relationship Specialty Start Date End Date Cheo Santoyo DO [address] [place] [phone] PCP - General Family Medicine 07/06/23 documented as of this encounter
--- OUTSIDE RECORDS SUMMARY | 2024-01-13 03:21 | XMS_ITS | Encounter Summary ---
Author Organization Jose Alejandro Pantoja [facility] Address [address] [place] [address] Care Team Providers Care Showroom Executive Director Name Role Phone YarelisCheo friend Moshe REYES Primary Care Provider [phone] Encounter Details Date Type Department Care Team (Late st Contact Info) Description 02/21/2019 Legacy Historical Encounter [facility] HISTORICAL CONVERSIONS 316 [place] [address] Genaro Mora DO 235 [place] [address] Social History Tobacco Use Types Packs/Day Years [...] Neurology - [facility] 2144 [facility] [address] [place] [address] Martell Calderon MD 2144 [facility] [address] [place] [address] TREMORS/ MEDICARE, FOR LIFE 03/28/2024 8:30 AM EDT Office Visit Primary Care - [address] [address] Cheo Santoyo DO 1112 [place] [address] AWV 04/06/2024 9:45 AM EST Lab [place] [facility] - [facility] 2084 [facility] [address] [place] [address] CBCMP,CEA,FEST 04/06/2024 10:15 AM EST Office Visit [place] [facility] - [facility] 2084 [facility] [address] [place] [address] Georgi Butterfield MD [address] [place] [address] 6 MTH FU W/LABS, REV SCAN 04/13/2024 9:30 AM EST Office Visit Surgical Oncology - 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 [address] [place] [address] Karly Bautista, PA [address] [place] [address] annual visit from date of surgery May/Jul 2024 for bilateral TKA and right LIZZ with Karly. documented as of this encounter Visit Diagnoses Not on filedocumented in this encounter Care Teams Showroom Executive Director Relationship Specialty Start Date End Date Cheo Santoyo DO [address] [place] [phone] PCP - General Family Medicine 07/06/23 documented as of this encounter
--- OUTSIDE RECORDS SUMMARY | 2024-01-13 03:21 | XMS_ITS | Encounter Summary ---
Author Organization Jose Alejandro Ray[facility]olinnea [facility] Address [address] [place] [address] Care Team Providers Care Vocational Horticulture Instructor Name Role Phone Unavailable Primary Care Provider Unavailabl e Encounter Details Date Type Department Care Team (Late st Contact Info) Description 07/18/2013 2:18 PM EST - 07/18/2013 3:19 PM EST Hospital Encounter [facility] HISTORICAL CONVERSIONS 316 [place] [address] Edvin Pereyra MD [facility]6 [place] [address] Social History Tobacco Use Types Packs/Day Years [...] Dr. [address] [place] [address] Martell Calderon MD [address] [place] [address] TREMORS/ MEDICARE, FOR LIFE 03/28/2024 8:30 AM EDT Office Visit Primary Care - [address] [address] Cheo Santoyo, DO 1112 [place] [address] AWV 04/06/2024 9:45 AM EST Lab [place] [facility] - [facility] 2084 [facility] [address] [place] [address] CBCMP,CEA,FEST 04/06/2024 10:15 AM EST Office Visit [place] [facility] - [facility] 2084 [facility] [address] [place] [address] Georgi Butterfield MD [address] [place], [place] [address] 6 MTH FU W/LABS, REV SCAN 04/13/2024 9:30 AM EST Office Visit Surgical Oncology - [facility] 2084 [facility] [address] [place] [address] Delvis Cheek MD 125 [facility] 660 [place] [address] 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 [address] [place] [address] Karly Bautista PA [address] [place] [phone] annual visit from date of surgery May/Jul 2024 for bilateral TKA and right LIZZ with Karly. documented as of this encounter Visit Diagnoses Not on filedocumented in this encounter
--- OUTSIDE RECORDS SUMMARY | 2024-01-13 03:21 | XMS_ITS | Encounter Summary ---
Author Organization Jose Alejandro Kit [facility] Address [address] [email or web address] [address] Care Team Providers Care Saddle Maker Name Role Phone Unavailable Primary Care Provider Unavailabl e Encounter Details Date Type Department Care Team (Late st Contact Info) Description 05/20/2015 12:01 AM EST - 05/20/2015 11:59 PM EST Hospital Encounter [facility] HISTORICAL CONVERSIONS 316 [place] [address] Dave Lynne Jr., MD [address] [place] [address] Social History Tobacco Use Types Packs/Day Years [...] Dr. [address] [place] [address] Martell Calderon MD [address] [place] [address] TREMORS/ MEDICARE, FOR LIFE 03/28/2024 8:30 AM EDT Office Visit Primary Care - [facility] 1112 [place] [address] Cheo Santoyo, DO 1112 [place] [address] AWV 04/06/2024 9:45 AM EST Lab [place] [facility] - [facility] 2084 [facility] [address] [place] [address] CBCMP,CEA,FEST 04/06/2024 10:15 AM EST Office Visit [place] [facility] - [facility] 2084 [facility] [address] [place] [address] Georgi Butterfield MD 3510 [facility] [address] [place] [address] 6 MTH FU W/LABS, REV SCAN 04/13/2024 9:30 AM EST Office Visit Surgical Oncology - [facility] 2084 [facility] [address] [place] [address] Delvis Cheek MD 125 [facility] 660 [place] [address] 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 documented as of this encounter Visit Diagnoses Not on filedocumented in this encounter
--- OUTSIDE RECORDS SUMMARY | 2024-01-13 03:21 | XMS_ITS | Encounter Summary ---
Author Organization Jose Alejandro Pantoja [facility] Address [address] [place] [address] Care Team Providers Care Chief Lending Officer Name Role Phone Cheo Santoyo Moshe REYES Primary Care Provider [phone] Encounter Details Date Type Department Care Team (Late st Contact Info) Description 03/29/2019 Legacy Historical Encounter [facility] HISTORICAL CONVERSIONS [address] [place], [place] [id number] More Morales PA 300 [facility] 200 [place] [address] Social History Tobacco Use Types Packs/Day Years [...] Neurology - [facility] 2[address] [facility] [address] [place] [address] Martell Calderon MD 2144 [facility] [address] [place] [address] TREMORS/ MEDICARE, FOR LIFE 03/28/2024 8:30 AM EDT Office Visit Primary Care - [address] [address] Cheo Santoyo DO [address] [place] [address] AWV 04/06/2024 9:45 AM EST Lab [place] [facility] - [facility] 2084 [facility] [address] [place] [address] CBCMP,CEA,FEST 04/06/2024 10:15 AM EST Office Visit [place] [facility] - [facility] 2084 [facility] [address] [place] [address] Georgi Butterfield MD [address] [place] [address] 6 MTH FU W/LABS, REV SCAN 04/13/2024 9:30 AM EST Office Visit Surgical Oncology - [facility] [address] [facility] [address] [place] [address] Delvis Cheek MD 125 [facility] [address] [place] [address] 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 documented as of this encounter Visit Diagnoses Not on filedocumented in this encounter Care Teams Chief Lending Officer Relationship Specialty Start Date End Date Cheo Santoyo DO [address] [place] [phone] PCP - General Family Medicine 07/06/23 documented as of this encounter
--- OUTSIDE RECORDS SUMMARY | 2024-01-13 03:21 | XMS_ITS | Encounter Summary ---
Author Organization Jose Alejandro Raymundolinnea [facility] Address [address] [place] [address] Care Team Providers Care Inpatient Nursing Aide Name Role Phone Unavailable Primary Care Provider Unavailabl e Encounter Details Date Type Department Care Team (Late st Contact Info) Description 06/24/2020 8:08 PM EST - 06/24/2020 11:59 PM EST Hospital Encounter [facility] HISTORICAL CONVERSIONS 316 [place], [place] [phone] Ramirez Dorsey MD [address] 100 [facility] 100 [place] [address] Social History Tobacco Use Types Packs/Day Years [...] Office Visit Neurology - [address] [place] [address] Martell Calderon MD 2144 [facility] [address] [place] [address] TREMORS/ MEDICARE, FOR LIFE 03/28/2024 8:30 AM EDT Office Visit Primary Care - [address] [address] Cheo Santoyo DO [address] [place] [address] AWV 04/06/2024 9:45 AM EST Lab [place] [facility] - [facility] 2084 [facility] [address] [place] [address] CBCMP,CEA,FEST 04/06/2024 10:15 AM EST Office Visit [place] [facility] - [facility] 2084 [facility] [address] [place] [address] Georgi Butterfield MD [address] [place] [address] 6 MTH FU W/LABS, REV SCAN 04/13/2024 9:30 AM EST Office Visit Surgical Oncology - [facility] 2084 [facility] [address] [place] [address] Delvis Cheek MD 125 [facility] 660 [place] [address] 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 documented as of this encounter Procedures Procedure Name Priority Date/Time Associated Diagnosis Comments CULTURE, URINE Routine 06/24/2020 11:11 AM EST documented in this encounter Results * (ABNORMAL) Culture, Urine (06/24/2020 11:11 AM EST) Organism Enterococcus faecalis *See Final Report* (A) [facility] CERNER CONVERSION FINAL REPORT >100,000 cfu/ml Enterococcus faecalis isolated. 3,000 cfu/ml Gram Negative Rods isolated. [facility] CERNER CONVERSION Comment:Performing Lab: [facility] Bench 06/24/2020 11:1 1 AM EST 06/24/2020 [...] Ramirez Dorsey MD MICROBIOLOGY - GENERAL ORDERABLES [facility] KAVITHA CONVERSION documented in this encounter Visit Diagnoses Not on filedocumented in this encounter
--- OUTSIDE RECORDS SUMMARY | 2024-01-13 03:21 | XMS_ITS | Encounter Summary ---
Author Organization Jose Alejandro Raymundolinnea [facility] Address [address] [place] [address] Care Team Providers Care Lime Sludge Kiln Operator Name Role Phone Unavailable Primary Care Provider Unavailabl e Encounter Details Date Type Department Care Team (Late st Contact Info) Description 11/14/2019 8:43 AM EDT - 01/04/2020 11:59 PM EDT Hospital Encounter [facility] HISTORICAL CONVERSIONS 316 [place], [place] [id number] Tammy Rodriguez PA Social History Tobacco Use [...] [address] [place] [address] Martell Calderon MD [address] [place] [address] TREMORS/ MEDICARE, FOR LIFE 03/28/2024 8:30 AM EDT Office Visit Primary Care - [facility] [address] [place] [phone] Cheo Santoyo DO 1112 [place] [address] AWV 04/06/2024 9:45 AM EST Lab [place] [facility] - [facility] [place] 2084 [facility] [address] [place] [address] CBCMP,CEA,FEST 04/06/2024 10:15 AM EST Office Visit [place] [facility] - [facility] [place] 2084 [facility] [address] [place] [address] Gerogi Butterfield MD [address] [place], [place] [address] 6 MTH FU W/LABS, REV SCAN 04/13/2024 9:30 AM EST Office Visit Surgical Oncology - [facility] [place] 2084 [facility] [address] [place] [address] Delvis Cheek MD 125 [facility] 660 [place] [address] 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 [address] [place] [phone] Karly Bautista PA [address] [place] [address] annual visit from date of surgery May/Jul 2024 for bilateral TKA and right LIZZ with Karly. documented as of this encounter Visit Diagnoses Not on filedocumented in this encounter
--- OUTSIDE RECORDS SUMMARY | 2024-01-13 03:21 | XMS_ITS | Encounter Summary ---
Author Organization Jose Alejandro Pantoja [facility] Address [address] [place] [address] Care Team Providers Care Improvement Advisor Name Role Phone Cheo Santoyo Moshe REYES Primary Care Provider [phone] Encounter Details Date Type Department Care Team (Late st Contact Info) Description 02/21/2019 Legacy Historical Encounter [facility] HISTORICAL CONVERSIONS 316 [place], [place] [id number] More Morales PA 300 [facility] 200 [place] [address] Social History Tobacco Use Types Packs/Day Years [...] Neurology - [facility] [address] [facility] [address] [place] [address] Martell Calderon MD 2144 [facility] [address] [place] [address] TREMORS/ MEDICARE, FOR LIFE 03/28/2024 8:30 AM EDT Office Visit Primary Care - [address] [address] Cheo Santoyo DO [address] [place] [address] AWV 04/06/2024 9:45 AM EST Lab [facility] - [facility] [address] [facility] [address] [place] [address] CBCMP,CEA,FEST 04/06/2024 10:15 AM EST Office Visit [facility] - [facility] [address] [facility] [address] [place] [address] Georgi Butterfield MD [address] [place] [address] 6 MTH FU W/LABS, REV SCAN 04/13/2024 9:30 AM EST Office Visit Surgical Oncology - [facility] [address] [facility] [address] [place] [address] Delvis Cheek MD 125 [facility] [address] [place] [address] 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 [address] [place] [address] Karly Bautista, PA 180 [facility] 301 [place] [address] annual visit from date of surgery May/Jul 2024 for bilateral TKA and right LIZZ with Karly. documented as of this encounter Visit Diagnoses Not on filedocumented in this encounter Care Teams Improvement Advisor Relationship Specialty Start Date End Date Cheo Santoyo DO [address] [place] [phone] PCP - General Family Medicine 07/06/23 documented as of this encounter
--- OUTSIDE RECORDS SUMMARY | 2024-01-13 03:21 | XMS_ITS | Encounter Summary ---
Author Organization [facility] Address [address] [place] [address] Care Team Providers Care Food Service Lead Name Role Phone Unavailable Primary Care Provider Unavailabl e Encounter Details Date Type Department Care Team (Late st Contact Info) Description 03/07/2021 Lab Re[facility] Medicine - [facility] [address] [place] [address] Outr Resulting Lab, Provider Social History Tobacco [...] 2.1 See Note ng/mL 03/07/2021 22:18 EDT [facility] Comment: % Distribution of [...] CHEMISTRY & BLOOD GAS ORDERABLES [facility] [address] [place] [address] documented in this encounter Visit Diagnoses Not on filedocumented in this encounter
--- OUTSIDE RECORDS SUMMARY | 2024-01-13 03:21 | XMS_ITS | Encounter Summary ---
Author Organization Jose Alejandro Kit [facility] Address [address] [place] [address] Care Team Providers Care Tankage Grinder Operator Name Role Phone Unavailable Primary Care Provider Unavailabl e Encounter Details Date Type Department Care Team (Late st Contact Info) Description 03/08/2014 11:58 AM EDT - 03/08/2014 11:59 PM EDT Hospital Encounter [facility] HISTORICAL CONVERSIONS [address] [place] [address] Jonn Sanchez III, MD [address] [facility] [place] [address] Social History Tobacco Use Types Packs/Day Years [...] Dr. [address] [place] [address] Martell Calderon MD 2145 [facility] 220 [place], [place] [address] TREMORS/ MEDICARE, FOR LIFE 03/28/2024 8:30 AM EDT Office Visit Primary Care - [facility] 1112 [place] [address] Cheo Santoyo, DO [address] [place] [address] AWV 04/06/2024 9:45 AM EST Lab [facility] - [facility] [address] [facility] [address] [place] [address] CBCMP,CEA,FEST 04/06/2024 10:15 AM EST Office Visit [facility] - [facility] [address] [facility] [address] [place] [address] Georgi Butterfield MD [address] [place] [address] 6 MTH FU W/LABS, REV SCAN 04/13/2024 9:30 AM EST Office Visit Surgical Oncology - [facility] [address] [facility] [address] [place] [address] Delvis Cheek MD 125 [facility] 660 [place] [address] 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 documented as of this encounter Visit Diagnoses Not on filedocumented in this encounter
--- OUTSIDE RECORDS SUMMARY | 2024-01-13 03:21 | XMS_ITS | Encounter Summary ---
Author Organization Jose Alejandro Raymundolinnea [facility] Address [address] [place] [address] Care Team Providers Care Document Control Manager Name Role Phone Unavailable Primary Care Provider Unavailabl e Encounter Details Date Type Department Care Team (Late st Contact Info) Description 02/21/2019 4:04 PM EDT - 02/21/2019 11:59 PM EDT Hospital Encounter [facility] HISTORICAL CONVERSIONS 316 [place] [address] More Morales PA 300 [facility] [address] [place], [place] [phone] Social History Tobacco Use Types Packs/Day Years [...] Dr. [address] [place] [address] Martell Calderon MD 2145 [facility] [address] [place] [address] TREMORS/ MEDICARE, FOR LIFE 03/28/2024 8:30 AM EDT Office Visit Primary Care - [address] [phone] Cheo Santoyo, DO 1112 [place] [address] AWV 04/06/2024 9:45 AM EST Lab [facility] - [facility] [address] [facility] [address] [place] [address] CBCMP,CEA,FEST 04/06/2024 10:15 AM EST Office Visit [facility] - [facility] [address] [facility] [address] [place] [address] Georgi uBtterfield MD 3510 [facility] [address] [place] [address] 6 MTH FU W/LABS, REV SCAN 04/13/2024 9:30 AM EST Office Visit Surgical Oncology - [facility] [address] [facility] [address] [place] [address] Delvis Cheek MD 125 [facility] 660 [place] [address] 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 L4-L5: Mild [...]
--- OUTSIDE RECORDS SUMMARY | 2024-01-13 03:21 | XMS_ITS | Encounter Summary ---
Author Organization Jose Alejandro Pantoja [facility] Address [address] [place] [address] Care Team Providers Care Plant Protection Superintendent Name Role Phone Cheo Santoyo Primary Care Provider Encounter Details Date Type Department Care Team (Late st Contact Info) Description 06/13/2020 Legacy Historical Encounter [facility] HISTORICAL CONVERSIONS 316 [place] [address] Delvis Cheek MD [address] [address] Social History Tobacco Use Types [...] Hospital 2[address] [facility] [address] [place] [address] Martell Calderon MD 214 [facility] [address] [place] [address] TREMORS/ MEDICARE, FOR LIFE 03/28/2024 8:30 AM EDT Office Visit Primary Care - [address] [address] [place] [address] [place] [address] AWV 04/06/2024 9:45 AM EST Lab [facility] - [facility] 20[address] [facility] [address] [place] [address] CBCMP,CEA,FEST 04/06/2024 10:15 AM EST Office Visit [facility] - [facility] [address] [facility] [address] [place] [address] Georgi Butterfield MD 3510 [facility] [address] [place] [address] 6 MTH FU W/LABS, REV SCAN 04/13/2024 9:30 AM EST Office Visit Surgical Oncology - [facility] [address] [facility] [address] [place] [address] Delvis Cheek MD 125 [facility] 660 [place] [address] 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 documented as of this encounter Visit Diagnoses Not on filedocumented in this encounter Care Teams Plant Protection Superintendent Relationship Specialty Start Date End Date Cheo Santoyo DO [address] [place] [phone] PCP - General Family Medicine 07/06/23 documented as of this encounter
--- OUTSIDE RECORDS SUMMARY | 2024-01-13 03:21 | XMS_ITS | Referral Summary ---
Author Organization [facility] Address [address] [place] [address] Care Team Providers Care Bottle Dealer Name Role Phone Unavailable Primary Care Provider Unavailabl e Encounters Date Type Department Care Team Description 01/11/2024 Lab Requisition [facility] Pathology & Laboratory [address] [address] Outr Resulting Lab, Provider 01/11/2024 Lab Requisition [facility] Pathology & Laboratory [address] [address] Outr Resulting Lab, Provider from Last 3 Months Social History Tobacco Use Types Packs/Day Years Used Date Smoking Tobacco: Never Assessed Sex and Gender Information Value Date Recorded Sex Assigned at Not on file Gender Identity Not on file Sexual Orientation Not on file Plan of Treatment Not on file Procedures Procedure Name Priority Date/Time Associated Diagnosis Comments FECAL BACTERIAL PATHOGENS BY PCR Routine 01/11/2024 5:30 EDT from Last 3 Months Results * FECAL BACTERIAL PATHOGENS BY PCR (01/11/2024 5:30 EDT) Salmonella PCR Negative Negative 01/12/2024 11:17 EDT [facility] Shigella/Enteroin vasive E. coli Negative Negative 01/12/2024 11:17 EDT [facility] HN LAB CAMPYLOBACTER PCR Negative Negative 01/12/2024 11:17 EDT [facility] Shiga Toxin PCR Negative Negative 11:17 EDT [facility] Feces SPECIMEN FROM RECTUM / Unknown 01/11/2024 5:30 EDT 01/11/2024 22:27 EDT Provider Outr Resulting Lab MICROBIOLOGY - GENERAL ORDERABLES [facility] [address] [place], [place] [phone] from Last 3 Months
--- OUTSIDE RECORDS SUMMARY | 2024-01-13 03:21 | XMS_ITS | Encounter Summary ---
Author Organization [facility] Address [address] [place] [address] Care Team Providers Care Fitness Floor Attendant Name Role Phone Unavailable Primary Care Provider Unavailabl e Encounter Details Date Type Department Care Team (Late st Contact Info) Description 01/02/2021 Lab Requisition [facility] Pathology & Laboratory Medicine - [facility] [address] [place], [place] [address] Outr Resulting Lab, Provider Social History Tobacco [...] <2.0 See Note ng/mL 01/02/2021 17:20 EDT [facility] Comment: % Distribution of CEA [...] Resulting Lab CHEMISTRY & BLOOD GAS ORDERABLES [facility] [address] [place] [address] documented in this encounter Visit Diagnoses Not on filedocumented in this encounter
--- OUTSIDE RECORDS SUMMARY | 2024-01-13 03:21 | XMS_ITS | Encounter Summary ---
Author Organization [facility] Address [address] [place] [address] Care Team Providers Care Planned Giving Officer Name Role Phone Unavailable Primary Care Provider Unavailabl e Encounter Details Date Type Department Care Team (Late st Contact Info) Description 01/11/2024 Lab Requisition [facility] Pathology & Laboratory Medicine - [facility] [address] [place], [place] [phone] Outr Resulting Lab, Provider Social History Tobacco [...] PATHOGENS BY PCR Routine 01/11/2024 5:30 EDT documented in this encounter Results * FECAL BACTERIAL PATHOGENS BY PCR (01/11/2024 5:30 EDT) Salmonella PCR Negative Negative 01/12/2024 11:17 EDT [facility] Shigella/Enteroin vasive E. coli Negative Negative 01/12/2024 11:17 EDT [facility] HN LAB CAMPYLOBACTER PCR Negative Negative 01/12/2024 11:17 EDT [facility] Shiga Toxin PCR Negative Negative 11:17 EDT [facility] Feces SPECIMEN FROM RECTUM / Unknown 01/11/2024 5:30 EDT 01/11/2024 22:27 EDT Provider Outr Resulting Lab MICROBIOLOGY - GENERAL ORDERABLES [facility] [address] [place] [address] documented in this encounter Visit Diagnoses Not on filedocumented in this encounter
--- OUTSIDE RECORDS SUMMARY | 2024-01-13 03:21 | XMS_ITS | Data Portability ---
Author Organization [place] - [facility] CARDI[facility] CARLOS MORRIS, P.ACaro, [facility] - Address [address] [place] [address] Care Team Providers Care Transmission Maintenance Supervisor Name Role Phone DARRIAN NADIA Primary Care Provider MALENA NORIEGA OTHER [phone] Assessment No assessment recorded. Plan of Treatment Reminders Order Date Submit Date Provider Last Modified By Organization Details Last Modified Time Details Appointments None recorded. Lab None recorded. Referral None recorded. Procedures None recorded. Surgeries None recorded. Imaging electrocard iogram 2020 021 [email or web address] n1 Main Office, [address] [place] [address], [place], [address], 09:50:28 US, echocardiog ester, transthorac ic, complete, [...] Office [address] [place] [address], [place], [address], 06/25/2020 12:42:56 08/31/19 21 08/30/2020 US, echoc ardio gram No observ ation record ed. [email or web address] Main Office [address] [place] [address], [place], [address], 09/03/2020 13:46:40 Result Notes None recorded. Problems Name Status Onset Date Resolution Date Notes Provider Name and Address Organization Details Recorded Time Dyslipidemia Active ELVER madrigal [facility] [place] [place] [facility] 1 12:49:19 Dyspnea on exertion Active May 2019 Echo EF 40 to 45% paradoxical motion. LBBB. inferior wall hypokinetic. Nuclear stress test May 2019 No inducible ischemia. GI artifact or small scar. EF 55%. ECHO 08/18 EF 45-50% Valery Mccarthy PA-C [address] [place] [address], [place], [address] , [facility] 1 16:09:35 Type 2 diabetes mellitus Active Martínez Beach MD [address] [place] [address], [place], [address] , [facility] 1 08:54:52 Hypertensive disorder Active Martínez Beach MD [address] [place] [address], [place], [address] , [facility] 1 08:55:23 Left bundle branch block Active Martínez Beach MD [address] [place] [address], [place], [address] , [facility] 1 09:18:35 Notes:quit tob 20 years ago. Problem Notes None recorded. Procedures Surgical History Date Name Laterality Status Provider Name and Address Organization Details Recorded Time procedure on shoulder completed MYAH Rodrigues - [facility] 06/21/2020 12:52:21 Back Surgery completed ELVER madrigal [facility] 06/21/2020 12:53:01 Knee arthroscopy/pepe cathy completed ELVER madrigal [facility] [place] [place] [facility] 06/21/2020 12:54:22 Imaging Results Imaging Date Name Status LastModified by Organization Details LastModified Time 06/25/2020 electrocardiogram completed [email or web address] Main Of fice [address] [place] [address], [place], [address], 06/25/2020 12:42:56 08/30/2020 US, echocardiogram completed [email or web address] Main O ffice [address] [place] [address], [place], [address], 09/03/2020 13:46:40 Procedure Notes None recorded. Medical Equipment None Reported. Allergies Allergen ID Allergen Name Allergen Category Reaction Reaction Severity Criticality Documentation Date Start Date Code Code System Note Provider Name and Address Organization Details Recorded Time 22130 morphine medicatio n Not available Not available Not available 06/25/2020 7052 RxNorm HOPE madrigal, [place] - [facility] 08:28:12 Medications Name Sig [...] Address Organization Details Last Updated DateTime 1 25321.7 7 g 175.26 cm 31.6 kg/m2 82 /min 124 mm[Hg] 70 mm[Hg] HOPE Novak [facility] 08:33:33 Social History Question Answer Notes LastModified by Organizat ion Details LastModified Time Tobacco Smoking Status Former Smoker ELVER NAVARRETE kaitlin, [place] - [facility] 06/21/2020 12:55:46 Do You Have An Advance Directive? Yes [email or web address] Information not available 06/25/2020 What Is Your Level Of Alcohol Consumption? Occasional [email or web address] Information not available 06/21/2020 How Many Years Have You Consumed Alcohol? 40 Information not available 06/25/2020 What Is Your Level Of Caffeine Consumption? Moderate [email or web address] Information not available 06/25/2020 How Much Tobacco Do You Chew? None [email or web address] Information not available 06/25/2020 Which Illicit Or Recreational Drugs Have You Used? None Information not available 06/25/2020 Do You Or Have You Ever Used E-cigarettes Or Vape? Never Used Electronic Cigarettes [email or web address] Information not available 06/25/2020 Marital Status [email or web address] Informa tion not available 06/25/2020 Do You Or Have You Ever Used Smokeless Tobacco? Never Used Smokeless Tobacco [email or web address] Information not available 06/25/2020 How Much Tobacco Do You Smoke? 2 PPD [email or web address] Information not available 06/25/2020 How Many Years Have You Smoked Tobacco? 27 Quit 23 Years Ago [email or web address] Information not available 06/25/2020 Sex: Unknown Functional Status None recorded. Mental Status None recorded. Family History Relationship Description Onset Age of this Age Resolved Age Notes Mother Family history of stroke Medical History Condition Response Cancer Y Diabetes Y GERD/Reflux Y Hypertension Y Past Encounters Encounter ID Performer Location Encounter Start Date Encounter Closed Date Diagnosis/Indication Diagnosis SNOMED-CT Code [id number] Martínez Beach MD Main Office [address] [place] [address] 06/25/2020 08:00:31 06/25/2020 09:50:28 Hypertensive disorder 60378540 Dyslipidemia 785908380 Preoperati ve cardiovascular examination 702277804 Left bundl e branch block 12777549 Health Concerns Section Related Observation LastModified by Organization Detai ls LastModified Time None Recorded Concern Status LastModified by Organization Details LastModified Time None Recorded Advance Directives Directive Y: Payers Encounter Date Sequence Insurance Name Policy Number Policy Sparks Covered Member ID Sparks Member ID Guarantor Name 06/25/2020 1 [place] ABDEL[employer] VELIZ Martínez Kemp Catarino [id number] Martínez Toribio 06/25/2020 2 [facility] () Martínez Toribio [id number] Martínez Toribio Notes Date Note Type Note [...] No acute complaints today. Martínez Beach MD [address] [place] [address] [facility] [address], [place], [address], [place] [facility] 06/25/2020 09:22:27
--- OUTSIDE RECORDS SUMMARY | 2024-01-13 03:21 | XMS_ITS | Encounter Summary ---
Author Organization Jose Alejandro Pantoja [facility] Address [address] [place] [address] Care Team Providers Care Garbage Pick Up Worker Name Role Phone Carter Santoyoony Moshe REYES Primary Care Provider [phone] Encounter Details Date Type Department Care Team (Late st Contact Info) Description 06/14/2020 Legacy Historical [facility] AM[facility] HISTORICAL Georgi Butterfield MD [address] [place] [address] Social History Tobacco Use Types Packs/Day Years [...] AM EDT [facility] [address] [facility] [address] [place] [address] Martell Calderon MD 214 [facility] [address] [place] [address] TREMORS/ MEDICARE, FOR LIFE 03/28/2024 8:30 AM EDT Office Visit Primary Care - [address] [address] [place] [address] [place] [address] AWV 04/06/2024 9:45 AM EST Lab [facility] [address] [facility] [address] [place] [address] CBCMP,CEA,FEST 04/06/2024 10:15 AM EST Office Visit [facility] 20[address] [facility] [address] [place] [address] Georgi Butterfield MD [address] [place] [address] 6 MTH FU W/LABS, REV SCAN 04/13/2024 9:30 AM EST Office Visit Surgical Oncology - [facility] [address] [facility] [address] [place] [address] Delvis Cheek MD 125 [facility] 660 [place] [address] 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 documented as of this encounter Visit Diagnoses Not on filedocumented in this encounter Care Teams Garbage Pick Up Worker Relationship Specialty Start Date End Date Cheo Santoyo DO [address] [place] [phone] PCP - General Family Medicine 07/06/23 documented as of this encounter
--- OUTSIDE RECORDS SUMMARY | 2024-01-13 03:21 | XMS_ITS | Encounter Summary ---
Author Organization Jose Alejandro [facility] Address [address] [address] Care Team Providers Care Senior Back End Java Developer Name Role Phone Unavailable Primary Care Provider Unavailabl e Encounter Details Date Type Department Care Team (Late st Contact Info) Description 06/13/2020 4:20 PM EST - 06/13/2020 11:59 PM EST Hospital Encounter RS HISTORICAL CONVERSIONS [address] [place] [address] Delvis Cheek MD [address] [address] Social History Tobacco Use Types [...] Dr. [address] [place] [phone] Martell Calderon MD 2144 [facility] [address] [place] [address] TREMORS/ MEDICARE, FOR LIFE 03/28/2024 8:30 AM EDT Office Visit Primary Care - [address] [address] Cheo Santoyo DO 1112 [place] [address] AWV 04/06/2024 9:45 AM EST Lab [facility] 2084 [facility] [address] [place] [address] CBCMP,CEA,FEST 04/06/2024 10:15 AM EST Office Visit [place] [facility] - [facility] 2084 [facility] [address] [place] [address] Georgi Butterfield MD [address] [place] [address] 6 MTH FU W/LABS, REV SCAN 04/13/2024 9:30 AM EST Office Visit Surgical Oncology - [facility] 2084 [facility] [address] [place] [address] Delvis Cheek MD 125 [facility] [address] [place] [address] 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 06/19/2024 10:30 AM EST Office Visit Orthopaedics- Les Valencia 615 [facility] [address] [place] [address] Karly Bautista, BURT [address] [place] [address] annual visit from date of [...] Comment:Blood Delvis Davis MD CHEMISTRY O RDERABLES [facility] CERNER CONVERSION * (ABNORMAL) Iron and TIBC [...] EST 06/14/2020 3:37 AM EST Comment:Blood Delvis Dvais MD CHEMISTRY O RDERASANCHEZ Performing Organization Address [facility]/State/ZIP Co de Phone Number [facility] * CEA (06/13/2020 4:31 PM EST) [...]
--- OUTSIDE RECORDS SUMMARY | 2024-01-13 03:21 | XMS_ITS | Encounter Summary ---
Author Organization Jose Alejandro Kit [facility] Address [address] [place] [address] Care Team Providers Care Dog Handler Or Trainer Name Role Phone Unavailable Primary Care Provider Unavailabl e Encounter Details Date Type Department Care Team (Late st Contact Info) Description 10/20/2019 3:17 PM EDT - 10/20/2019 4:47 PM EDT Hospital Encounter RS HISTORICAL CONVERSIONS [address] [place] [address] Solange Guthrie MD [address] [address] Social History Tobacco Use Types Packs/Day Years Used Date Smoking Tobacco: Never Assessed Sex and Gender Information Value Date Recorded Sex Assigned at Not on file Gender Identity Not on file Sexual Orientation Not on file documented as of this encounter Discharge Summaries * Historical Provider, [facility] - 10/20/2019 3:09 PM EDT Inpatient Patient Summary [facility] 20[address] [place], [place] [id number] Patient Discharge Instructions Name: TESS COLEMAN Current Date: 10/20/2019 15:09:02 : 1955 FIN: [id number] Patient Address: [address] [facility] [place] [facility] [place] [address] Patient Primary Care Provider: Name: BETTY MARINO [...] (given by mouth) every day. Last Dose: [facility] would like to thank you for allowing us to assist you with your healthcare needs. The following includes patient education materials and information regarding your injury/illness. TESS COLEMAN has been given the following list of follow-up instructions, prescriptions, and patient education materials: Follow-up Instructions: With: Address: When: SOLANGE LORD [address], [address] [place] [address] [employer] (1) , only if needed With: Address: When: BETTY MARINO Type Location Start [facility] Pain Management SF Pain Management 3:30 PM [...] toes connected by a vertical line. ?? [phone] [employer]. [address] [place] [address], [place] [address]. All rights reserved. This information is not [...] or swelling around the injection site ?? [phone] [employer]. [address] [place] [address], [place] [address]. All rights reserved. This information is not [...] signs, call to get immediate medical attention! [facility] allows you to manage your health, view your test results, and retrieve your discharge documents from your hospital stay securely and conveniently from your computer. To begin the enrollment process, visit [email or web address]. Click on ???Sign up now?? under [facility]. Electronically signed by Kian [facility] Incoming Notes - Cerner - Conversion at 03/30/2022 2:08 PM EDT * Historical Provider, [facility] - 10/20/2019 3:09 PM EDT Inpatient Clinical Summary [facility] Post-Acute Care Transfer Instructions PERSON INFORMATION Name: TESS COLEMAN FIN#: [id number] PHYSICIANS Admitting Physician: SOLANGE LORD Attending Physician: SOLANGE LORD PCP: JAMILA, BETTY Guerrero Discharge Diagnosis: Comment: PATIENT EDUCATION INFORMATION Instructions: Caring for Your Back Throughout the Day; Lumbar Epidural Injection: Recovery at Home Medication Leaflets: Follow-up: With: Address: When: SOLANGE LORD [address], [address] [place] [address] Business (1) , only if needed With: Address: When: BETTY MARINO Type Location Start Finish [facility] Pain Management Pain Management 3:30 PM 3:45 [...] Dr. [address] [place] [address] Martell Calderon MD 214 [facility] [place] [address] [place] [address] TREMORS/ MEDICARE, FOR LIFE 03/28/2024 8:30 AM EDT Office Visit Primary Care - [address] [phone] Cheo Santoyo DO [address] [place] [address] AWV 04/06/2024 9:45 AM EST Lab [facility] 2084 [facility] [address] [place] [address] CBCMP,CEA,FEST 04/06/2024 10:15 AM EST Office Visit [facility] - [facility] 2084 [facility] [place] [address] [place] [address] Georgi Butterfield MD [address] [place] [address] 6 MTH FU W/LABS, REV SCAN 04/13/2024 9:30 AM EST Office Visit Surgical Oncology - 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 documented as of this encounter Visit Diagnoses Not on filedocumented in this encounter
--- OUTSIDE RECORDS SUMMARY | 2024-01-13 03:21 | XMS_ITS | Encounter Summary ---
Author Organization Jose Alejandro Kit [facility] Address [address] [place] [address] Care Team Providers Care Footwear Stitcher Name Role Phone Unavailable Primary Care Provider Unavailabl e Encounter Details Date Type Department Care Team (Late st Contact Info) Description 03/13/2014 8:45 AM EDT - 03/13/2014 11:59 PM EDT Hospital Encounter RS HISTORICAL CONVERSIONS [address] [place], [place] [phone] Stephen Fraser MD [address] [place], [place] [phone] Social History Tobacco Use Types Packs/Day Years [...] Dr. [address] [place] [address] Martell Calderon MD [address] [place] [address] TREMORS/ MEDICARE, FOR LIFE 03/28/2024 8:30 AM EDT Office Visit Primary Care - [facility] 1112 [place] [address] Cheo Santoyo, 1112 [place] [address] AWV 04/06/2024 9:45 AM EST Lab [place] [facility] - [facility] 2084 [facility] [address] [place] [address] CBCMP,CEA,FEST 04/06/2024 10:15 AM EST Office Visit [place] [facility] - [facility] 2084 [facility] [address] [place] [address] Georgi Butterfield MD 3510 [facility] [address] [place] [address] 6 MTH FU W/LABS, REV SCAN 04/13/2024 9:30 AM EST Office Visit Surgical Oncology - [facility] 2084 [facility] [address] [place] [address] Delvis Cheek MD 125 [facility] 660 [place] [address] 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 documented as of this encounter Visit Diagnoses Not on filedocumented in this encounter
--- OUTSIDE RECORDS SUMMARY | 2024-01-13 03:21 | XMS_ITS | Encounter Summary ---
Author Organization [facility] Address [address] [place] [address] Care Team Providers Care Manufacturing Production Manager Name Role Phone Unavailable Primary Care Provider Unavailabl e Encounter Details Date Type Department Care Team (Late st Contact Info) Description 11/21/[address] [facility] Pathology & Laboratory Medicine - [facility] [address] [place] [address] Outr Resulting Lab, Provider Social History Tobacco [...] 2.7 See Note ng/mL 11/21/2020 17:02 EDT [facility] Comment: % Distribution of CEA [...] Resulting Lab CHEMISTRY & BLOOD GAS ORDERABLES [facility] [address] [place] [address] documented in this encounter Visit Diagnoses Not on filedocumented in this encounter
--- OUTSIDE RECORDS SUMMARY | 2024-01-13 03:21 | XMS_ITS | Encounter Summary ---
Author Organization Jose Alejandro Raymundolinnea [facility] Address [address] [place] [address] Care Team Providers Care Mental Retardation Aide Name Role Phone Unavailable Primary Care Provider Unavailabl e Encounter Details Date Type Department Care Team (Late st Contact Info) Description 02/21/2019 12:40 PM EDT - 02/21/2019 11:59 PM EDT Hospital Encounter [facility] HISTORICAL CONVERSIONS 316 [place] [address] More Morales PA 300 [facility] [address] [place], [place] [address] Social History Tobacco Use Types Packs/Day Years [...] Dr. [address] [place] [address] Martell Calderon MD 2145 [facility] [address] [place] [address] TREMORS/ MEDICARE, FOR LIFE 03/28/2024 8:30 AM EDT Office Visit Primary Care - [address] [phone] Cheo Santoyo, DO 1112 [place] [address] AWV 04/06/2024 9:45 AM EST Lab [place] [facility] - [facility] 2084 [facility] [address] [place] [address] CBCMP,CEA,FEST 04/06/2024 10:15 AM EST Office Visit [place] [facility] - [facility] 2084 [facility] [address] [place] [address] Georgi Butterfield MD [address] [place] [address] 6 MTH FU W/LABS, REV SCAN 04/13/2024 9:30 AM EST Office Visit Surgical Oncology - [facility] 2084 [facility] [address] [place] [address] Delvis Cheek MD 125 [facility] 660 [place] [address] 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
--- OUTSIDE RECORDS SUMMARY | 2024-01-13 03:21 | XMS_ITS | Encounter Summary ---
Author Organization [facility] Address [address] [place] [address] Care Team Providers Care Telecommunications Officer Name Role Phone Unavailable Primary Care Provider Unavailabl e Encounter Details Date Type Department Care Team (Late st Contact Info) Description 02/14/2021 Lab Requisition [facility] Pathology & Laboratory Medicine - [facility] 111 [place] [address] Outr Resulting Lab, Provider Social History Tobacco [...] 2.2 See Note ng/mL 02/14/2021 17:51 EDT [facility] Comment: % Distribution of [...] Resulting Lab CHEMISTRY & BLOOD GAS ORDERABLES [facility] [address] [place] [address] documented in this encounter Visit Diagnoses Not on filedocumented in this encounter
--- OUTSIDE RECORDS SUMMARY | 2024-01-13 03:21 | XMS_ITS | Encounter Summary ---
Author Organization Jose Alejandro [facility]iriano [facility] Address [address] [place] [address] Care Team Providers Care Field Applications Specialist Name Role Phone Cheo Santoyo Primary Care Provider [phone] Encounter Details Date Type Department Care Team (Late st Contact Info) Description 11/06/2019 Legacy Historical Encounter RS HISTORICAL CONVERSIONS 316 [place], [place] [address] Tammy Rodriguez PA Social History Tobacco Use [...] - [facility] 2144 [facility] [address] [place] [address] Martell Calderon MD 2144 [facility] [address] [place], [place] [address] TREMORS/ MEDICARE, FOR LIFE 03/28/2024 8:30 AM EDT Office Visit Primary Care - [address] [address] Cheo Santoyo, [address] [place] [address] AWV 04/06/2024 9:45 AM EST Lab [place] [facility] - [facility] 2084 [facility] [address] [place] [address] CBCMP,CEA,FEST 04/06/2024 10:15 AM EST Office Visit [place] [facility] - [facility] 2084 [facility] [address] [place] [address] Georgi Butterfield MD [address] [place] [address] 6 MTH FU W/LABS, REV SCAN 04/13/2024 9:30 AM EST Office Visit Surgical Oncology - [facility] 7 [facility] [address] [place] [address] Delvis Cheek MD 125 [facility] 660 [place] [address] 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 [address] [place] [address] Karly Bautista PA 180 [facility] 301 [place] [address] annual visit from date of surgery May/Jul 2024 for bilateral TKA and right LIZZ with Karly. documented as of this encounter Visit Diagnoses Not on filedocumented in this encounter Care Teams Field Applications Specialist Relationship Specialty Start Date End Date Cheo Santoyo DO [address] [place] [address] PCP - General Family Medicine 07/06/23 documented as of this encounter
--- OUTSIDE RECORDS SUMMARY | 2024-01-13 03:21 | XMS_ITS | Encounter Summary ---
Author Organization Jose Alejandro Kit [facility] Address [address] [place] [address] Care Team Providers Care Mop Man Name Role Phone Unavailable Primary Care Provider Unavailabl e Encounter Details Date Type Department Care Team (Late st Contact Info) Description 04/24/2015 10:06 AM EST - 04/24/2015 11:59 PM EST Hospital Encounter [facility] HISTORICAL CONVERSIONS 316 [place] [address] Dave Lynne Jr., MD [address] [place] [address] Social History Tobacco Use Types Packs/Day Years [...] Dr. [address] [place] [address] Martell Calderon MD [address] [place] [address] TREMORS/ MEDICARE, FOR LIFE 03/28/2024 8:30 AM EDT Office Visit Primary Care - [facility] 1112 [place] [address] Cheo Santoyo, DO 1112 [place] [address] AWV 04/06/2024 9:45 AM EST Lab [place] [facility] - [facility] [place] 2084 [facility] [address] [place] [address] CBCMP,CEA,FEST 04/06/2024 10:15 AM EST Office Visit [place] [facility] - [facility] [place] 2084 [facility] [address] [place] [address] Georgi Butterfield MD 3510 [facility] [address] [place] [address] 6 MTH FU W/LABS, REV SCAN 04/13/2024 9:30 AM EST Office Visit Surgical Oncology - [facility] [place] 2084 [facility] [address] [place] [address] Delvis Cheek MD 125 [facility] 660 [place] [address] 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 documented as of this encounter Visit Diagnoses Not on filedocumented in this encounter
--- OUTSIDE RECORDS SUMMARY | 2024-01-13 03:21 | XMS_ITS | Encounter Summary ---
Author Organization Jose Alejandro [facility] Address [address] [place] [address] Care Team Providers Care Pharmacy Delivery Driver Name Role Phone YarelisCheo friend Moshe REYES Primary Care Provider [phone] Encounter Details Date Type Department Care Team [...] Visit Neurology - [facility] 2144 [facility] [address] [place] [address] Martell Calderon MD 2144 [facility] [address] [place] [address] TREMORS/ MEDICARE, FOR LIFE 03/28/2024 8:30 AM EDT Office Visit Primary Care - [address] [phone] Cheo Santoyo, [address] [address] AWV 04/06/2024 9:45 AM EST Lab [place] [facility] - [facility] 2084 [facility] [address] [place] [address] CBCMP,CEA,FEST 04/06/2024 10:15 AM EST Office Visit [place] [facility] - [facility] 2084 [facility] [address] [place] [address] Georgi Butterfield MD [address] [place] [address] 6 MTH FU W/LABS, REV SCAN 04/13/2024 9:30 AM EST Office Visit Surgical Oncology - [facility] 2084 [facility] [address] [place] [address] Delvis Cheek MD 125 [facility] 660 [place] [address] 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 301 [place] [address] annual visit from date of surgery May/Jul 2024 for bilateral TKA and right LIZZ with Karly. documented as of this encounter Visit Diagnoses Not on filedocumented in this encounter Care Teams Pharmacy Delivery Driver Relationship Specialty Start Date End Date Cheo Santoyo DO [address] [place] [address] PCP - General Family Medicine 07/06/23 documented as of this encounter
--- OUTSIDE RECORDS SUMMARY | 2024-01-13 03:21 | XMS_ITS | Clinical Summary ---
Author Organization [facility] Address [address] [place] [address] Care Team Providers Care Auction Block Clerk Name Role Phone Unavailable Primary Care Provider Unavailabl e Encounters Date Type Department Care Team Description 01/11/2024 Lab Requisition [facility] Pathology & Laboratory [address] [address] Outr Resulting Lab, Provider 01/11/2024 Lab Requisition [facility]ology & Laboratory [address] [address] Outr Resulting Lab, Provider from Last 3 [...] Screening 2022 COVID-19 Vaccine ( season) 2023 Procedures Procedure Name Priority Date/Time Associated Diagnosis Comments FECAL BACTERIAL PATHOGENS BY PCR Routine 01/11/2024 5:30 EDT from Last 3 Months Results * FECAL BACTERIAL PATHOGENS BY PCR (01/11/2024 5:30 EDT) Salmonella PCR Negative Negative 01/12/2024 11:17 EDT [facility] Shigella/Enteroin vasive E. coli Negative Negative 01/12/2024 11:17 EDT [facility] HN LAB CAMPYLOBACTER PCR Negative Negative 01/12/2024 11:17 EDT [facility] Shiga Toxin PCR Negative Negative 11:17 EDT [facility] Feces SPECIMEN FROM RECTUM / Unknown 01/11/2024 5:30 EDT 01/11/2024 22:27 EDT Provider Outr Resulting Lab MICROBIOLOGY - GENERAL ORDERABLES [facility] [address] [place], [place] [id number] from Last 3 Months
--- OUTSIDE RECORDS SUMMARY | 2024-01-13 03:21 | XMS_ITS | Encounter Summary ---
Author Organization Jose Alejandro Ray[facility]olinnea [facility] Address [address] [place] [address] Care Team Providers Care Crumb Packer Name Role Phone Unavailable Primary Care Provider Unavailabl e Encounter Details Date Type Department Care Team (Late st Contact Info) Description 12/22/2019 5:48 PM EDT - 12/22/2019 11:59 PM EDT Hospital Encounter [facility] HISTORICAL CONVERSIONS 316 [place], [place] [id number] Tammy Rodriguez PA Social History Tobacco Use [...] Dr. [address] [place] [address] Martell Calderon MD [address] [place] [address] TREMORS/ MEDICARE, FOR LIFE 03/28/2024 8:30 AM EDT Office Visit Primary Care - [address] [phone] Cheo Santoyo, [address] [place] [address] AWV 04/06/2024 9:45 AM EST Lab [place] [facility] - [facility] 2084 [facility] [address] [place] [address] CBCMP,CEA,FEST 04/06/2024 10:15 AM EST Office [place] [facility] - [facility] 2084 [facility] [address] [place] [address] Georgi Butterfield MD 3510 [facility] [address] [place], [place] [address] 6 MTH FU W/LABS, REV SCAN 04/13/2024 9:30 AM EST Office Visit Surgical Oncology - [facility] 2084 [facility] [address] [place] [address] Delvis Cheek MD 125 [facility] 660 [place] [address] 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 [address] [place] [address] Karly Bautista PA [address] [place] [address] annual visit from date of [...] recess with mass effect on the left [id number] root. Mild bilateral neural foraminal narrowing. IMPRESSION: [...] likely causes mass effect on the left [id number] root. 4. Overall, appearance of the lumbar spine is unchanged compared toSeptember 2019. Final Releasing Radiologist: CRISTAL MOELLER Released Date and Time: 12/23/19 15:30 Tammy LUNA MRI ORDERABLES documented in this encounter Visit Diagnoses Not on filedocumented in this encounter
--- OUTSIDE RECORDS SUMMARY | 2024-01-13 03:21 | XMS_ITS | Encounter Summary ---
Author Organization [facility] Address [address] [place] [address] Care Team Providers Care Space Scheduler Name Role Phone Unavailable Primary Care Provider Unavailabl e Encounter Details Date Type Department Care Team (Late st Contact Info) Description 12/13/2020 Lab Requisition [facility] Pathology & Laboratory Medicine - [facility] [address] [place] [address] Outr Resulting Lab, Provider Social History Tobacco [...] <2.0 See Note ng/mL 12/16/2020 9:31 EDT [facility] [...] [facility] [address] [place] [address] documented in this encounter Visit Diagnoses Not on filedocumented in this encounter
--- OUTSIDE RECORDS SUMMARY | 2024-01-13 03:21 | XMS_ITS | Encounter Summary ---
Author Organization [facility] Address [address] [place] [address] Care Team Providers Care Hiv Cts Specialist Name Role Phone Unavailable Primary Care Provider Unavailabl e Encounter Details Date Type Department Care Team (Late st Contact Info) Description 01/11/2024 Lab Requisition [facility] Pathology & Laboratory Medicine - [facility] [address] [place] [address] Outr Resulting Lab, Provider Social History Tobacco [...]
--- OUTSIDE RECORDS SUMMARY | 2024-01-13 03:21 | XMS_ITS | Continuity of Care Document ---
Author Organization [facility] Address [address] [place] [address] Phone Care Team Providers Care Junior Automation Engineer Name Role Phone Olesya ESCOTO, Judi Unavailable [...] Diagnoses Date Provider Providers Copied on Encounter [facility], [address], [place], [address], tel:[phone] [place] No Information 2 Olesya Lau. [address], [place], [place], [id number], [place]. tel:[phone] OFFICE/OUTPAT IENT VISIT, EST [facility], [address], [place], [address], tel:[phone] [place] go over lab and x-rays (chief complaint) Effusion, right kneeCoughRai sed antibody titer Dec-0 3-201 5 [place] David. [address], [place], [address], [place]. tel:[phone] , [address], [place], [place].Referring Provider: France Liu, [address] [place], [address]. tel:[phone] OFFICE CONSULTATION [facility] [address], [place], [address], [place] tel:[phone] [place] + HOLLIS (chief complaint) Other cervical disc degeneration , cervicothora cic regionPain in right shoulderCoug hRaised antibody titerPrimary OA of right kneeEffusion , right knee Nov-0 5-201 5 [place] David. [address], [facility] [place], [address], [place]. tel:[phone] Specialist: Dave Lynne, [address], [place], [place]. tel:[phone] ng Provider: France Liu, [address] [place], [address]. tel:[phone] Family History Family Member Type Diagnosis Age At Onset Mother Problem (finding) Systemic lupus erythema tosus Payers Payer name Insurance type Covered libertarian ID Authoriza tion(s) No Information Social History [...]
--- OUTSIDE RECORDS SUMMARY | 2024-01-13 03:21 | XMS_ITS | Encounter Summary ---
Author Organization [facility] Address [address] [place] [address] Care Team Providers Care Technical Project Manager Name Role Phone Carter Santoyoony Moshe REYES Primary Care Provider [phone] Encounter Details Date Type Department Care Team (Late st Contact Info) Description 06/13/2020 [facility] Historical Encounter [facility] AMB HISTORICAL Georgi Butterfield MD [address] [place] [address] Social History Tobacco Use Types Packs/Day Years [...] 9:00 AM EDT [facility] [address] [facility] [address] [address] [place] [address] Martell Calderon MD [address] [facility] [address] [place] [address] TREMORS/ MEDICARE, FOR LIFE 03/28/2024 8:30 AM EDT Office Visit Primary Care - [address] [address] [place] [address] [place] [phone] AWV 04/06/2024 9:45 AM EST [facility] [place] [address] [facility] [address] [place] [address] CBCMP,CEA,FEST 04/06/2024 10:15 AM EST Office Visit 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 documented as of this encounter Visit Diagnoses Not on filedocumented in this encounter Care Teams Technical Project Manager Relationship Specialty Start Date End Date Cheo Santoyo DO [address] [place] [phone] PCP - General Family Medicine 07/06/23 documented as of this encounter
--- OUTSIDE RECORDS SUMMARY | 2024-01-13 03:21 | XMS_ITS | Encounter Summary ---
Author Organization [facility] Address [address] [place] [address] Care Team Providers Care Farmworker Dairy Name Role Phone Cheo Santoyo Primary Care Provider [phone] Encounter Details Date Type Department Care Team (Late st Contact Info) Description 10/18/2019 Legacy Historical Encounter [facility] [address] [place], [place] [id number] Tammy Rodriguez PA Social History Tobacco Use [...] Visit Neurology - [facility] [address] [facility] [address] [place] [address] Martell Calderon MD [address] [facility] [address] [place], [place] [phone] TREMORS/ MEDICARE, FOR LIFE 03/28/2024 8:30 AM EDT Office Visit Primary Care - [address] [address] Cheo Santoyo, [address] [place] [phone] AWV 04/06/2024 9:45 AM EST Lab [place] [facility] - [facility] [address] [facility] [address] [place] [address] CBCMP,CEA,FEST 04/06/2024 10:15 AM EST Office Visit [place] [facility] - [facility] [address] [facility] [address] [place] [address] Georgi Butterfield MD [address] [place] [address] 6 MTH FU W/LABS, REV SCAN 04/13/2024 9:30 AM EST Office Visit Surgical Oncology - [facility] [address] [facility] [address] [place] [phone] Delvis Cheek MD 125 [facility] [address] [place] [address] 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 documented as of this encounter Visit Diagnoses Not on filedocumented in this encounter Care Teams Farmworker Dairy Relationship Specialty Start Date End Date Cheo Santoyo DO [address] [place] [phone] PCP - General Family Medicine 07/06/23 documented as of this encounter
== END 2024-01-13 03:18 ==
PROVIDERS: PCP Nurse Practitioner Family
DX: Z47.1 Aftercare following joint replacement surgery (principal); Z96.641 Presence of right artificial hip joint
CPT/HCPCS: 73502

== ENCOUNTER 2024-01-13 20:57 | Outpatient (REF) | payer MEDICARE, OTHER, SELFPAY ==
[2024-01-13 15:00] LABS: ESR 6 mm/hr (0-20)
[2024-01-13 15:48] LABS: C-Reactive Protein < 0.50 mg/dL (<or=0.5)
--- OUTSIDE RECORDS SUMMARY | 2024-01-13 21:01 | XMS_ITS | Encounter Summary ---
Author Organization [facility] Address [facility] [place] [address] Care Team Providers Care Net Architect Name Role Phone None Primary Care Provider Unavailabl e Encounter Details Date Type Department Care Team (Late st Contact Info) Description 02/14/2021 10:00 AM EDT Office Visit Hematology/Oncology at [address] [phone] Nik Killian MD [facility] [place] [address] Danette Oleary APRN [address] [place] [address] DR HEMATOLOGY ONCOLOGY [place], [place] [id number] Malignant neoplasm of ascending colon Social History [...] management of colon cancer. He lives in [facility] and is visiting [place] for the summer [...] summarized above.) has been spending time in [place] and [place] this summer. He returns to the [facility] in [facility] today for follow-up since completing C7/8 [...] Ondansetron. Martínez is hoping to return to [facility] in mid-February. He tells me he has a CT scheduled forMarch 19 in [place]. Martínez reports good energy and usually good [...] summarized above.) has been spending time in [place] and [place] this summer. He comes to the [facility] in [facility] todayfor routine follow-up. CBC and CMP [...] colon documented in this encounter Care Teams Net Architect Relationship Specialty Start Date End Date None None PCP - General 11/08/20 documented as of this encounter
--- OUTSIDE RECORDS SUMMARY | 2024-01-13 21:01 | XMS_ITS | Clinical Summary ---
Author Organization [facility] Address [address] [place] [address] Care Team Providers Care Oil Heaterman Name Role Phone Felicitas Monaco MD Primary [...] 65+ YEARS Completed 3, 04/30/2010 Care Teams Oil Heaterman Relationship Specialty Start Date End Date Felicitas Monaco MD PCP - General Family Medicine 08/18/22
--- OUTSIDE RECORDS SUMMARY | 2024-01-13 21:01 | XMS_ITS | Encounter Summary ---
Author Organization [facility] Address [facility] [place] [address] Care Team Providers Care Soft Crab Shedder Name Role Phone Unavailable Primary Care Provider Unavailabl e Reason for Visit * Reason Comments Advice Only * Consultation (Routine) - Closed Specialty Diagnoses / Procedures Referred By Contac t Referred To Contact Hematology and Oncology Diagnoses Colon cancer COLON CANCER Procedures TREATMENT OPTIONS Georgi Butterfield MD [address] [facility] [address] [place] [address] [facility] Hem Onc Office [address] [place] [phone] Referral ID Status Reason Start Date Expiration Date Visits Re quested Visits Authorized [id number] Closed 10/24/2020 10/24/2021 1 1 Encounter Details Date Type Department Care Team (Late st Contact Info) Description 11/06/2020 2:45 PM EDT Office Visit [place] [address] Nik Killian MD [facility] [place] [address] Malignant neoplasm of ascending colon Social History [...] history is summarizedabove. He lives in [facility] and but staying in [place], [place] for the summer months. He is [...] well controlled. Soc Hx: , lives in [place], visiting [place] for the summer Tob - Quit in 2008; priot to that, 2 ppd for 27 years Etoh - 5 to 7 drinks per week On disability due to spinal stenosis. 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 Fam Hx: Father - Mother - Sibs [...] of colon cancer. He lives in [facility] [place] and is visiting [place] for the summer months. He is seen [...] me know immediately. He is living in [place], [place] for the summer months and I will plan to arrange for his f/u to be in [facility]. As I am on service and will not be in [facility] on 11/22, I will arrange for a TeleHealth visit with labs prior. He had his are both fully vaccinated against Covid 19. documented in this encounter Plan of Treatment Not on file documented as of this encounter Visit Diagnoses Diagnosis Malignant neoplasm of ascending colon documented in this encounter
--- OUTSIDE RECORDS SUMMARY | 2024-01-13 21:01 | XMS_ITS | Encounter Summary ---
Author Organization [facility] Address [address] [place] [address] Care Team Providers Care Gas Operations Analyst Name Role Phone Emma Monaco MD Primary Care Provider Yonas lester Reason for Referral * MRI/CAT Scan (Routine) - Closed Specialty Diagnoses / Procedures Referred By Contac t Referred To Contact Radiology Diagnoses Lumbar adjacent segment disease with spondylolisthesis Procedures CT Lumbar Spine Wo Contrast Cherie Carter FNP [address] [place] [address] Referral ID Status Reason Start Date Expiration Date Visits Re quested Visits Authorized [id number] Closed 08/21/2022 08/21/2023 1 1 * MRI/CAT Scan (Routine) - Closed Specialty Diagnoses / Procedures Referred By Contac t Referred To Contact Radiology Diagnoses Lumbar adjacent segment disease with spondylolisthesis Procedures MRI Lumbar Spine Wo Contrast Cherie Carter FNP [address] [place] [address] Referral ID Status Reason Start Date Expiration Date Visits Re quested Visits Authorized [id number] Closed 08/21/2022 08/21/2023 1 1 Reason for Visit * Reason Comments Thoracic to lumbar pain Images uploading in AKES * Consult and Treat (Routine) - Closed Specialty Diagnoses / Procedures Referred By Rachid jimenez Referred To Contact Neurosurgery Diagnoses Thoracic to lumbar pain with popping-advised to bring Xray on disc-scheduled with patient Patient is requesting to see Dr. Delatorre Procedures NEW PATIENT Self, Referred Cherie Carter, KANDACE [address] [place] [address] Referral ID Status Reason Start Date Expiration Date Visits Re quested Visits Authorized [id number] Closed 08/21/2022 08/21/2023 1 1 Encounter Details Date Type Department Care Team (Latest Contact Info) Description 08/21/2022 11:00 AM EDT Office Visit Neurosurgery at [facility] by [facility] [address] [facility], 1st [place] [address] Cherie Carter FNP [address] [place] [address] Lumbar adjacent segment disease with [...] this encounter Progress Notes * Cherie Carter, LITERATURE PROFESSOR - 08/21/2022 11:00 AM EDT Referring Provider: Referred Self No address on file Primary Care Provider: EMMA MONACO MD [address] [facility] [address] [facility] [address] RE: Martínez Toribio 1955 CLINIC: NEUROSURGERY Dear [...] Toribio is a very pleasant 67 y.o. [id number] with low back pain and prior lumbar [...] in his care. Sincerely, Monika Carter, MSN, LITERATURE PROFESSOR-C Nurse Practitioner Department of Neurosurgery [facility] documented in this encounter Plan of Treatment [...] WO CONTRAST 09/01/2022 5:07 PM ACCESSION NUMBER: [id number] INDICATION: Low back pain, prior surgery, new [...] WO CONTRAST 09/01/2022 5:07 PM ACCESSION NUMBER: [id number] INDICATION: Low back pain, prior surgery, new [...] this report. 09/01/2022 9:37 PM Cherie Carter [facility] IMG CT ORDE RABLAZ * MRI [...] WO CONTRAST 09/01/2022 4:43 PM ACCESSION NUMBER: [id number] INDICATION:Low back pain, symptoms persist with > [...] WO CONTRAST 09/01/2022 4:43 PM ACCESSION NUMBER: [id number] INDICATION:Low back pain, symptoms persist with > [...] spondylolisthesis documented in this encounter Care Teams Gas Operations Analyst Relationship Specialty Start Date End Date Emma Monaco MD PCP - General Family Medicine 08/18/22 documented as of this encounter
--- OUTSIDE RECORDS SUMMARY | 2024-01-13 21:01 | XMS_ITS | Encounter Summary ---
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 [address] [place] [address] Deandre Alcantara MD [address] [place] [address] Referral ID Status Reason Start Date Expiration Date Visits Re quested Visits Authorized [id number] Closed 09/22/2022 09/22/2023 1 1 Encounter Details Date Type Department Care Team (Late st Contact Info) Description 09/22/2022 1:30 PM EDT Office Visit Neurosurgery at [facility] [address] [facility], 1st [place] [address] Deandre Alcantara MD [address] [place] [address] Instability of spine due to [...] Primary documented in this encounter Care Teams Bailer Operators Supervisor Relationship Specialty Start Date End Date Felicitas Monaco MD PCP - General Family Medicine 08/18/22 documented as of this encounter
--- OUTSIDE RECORDS SUMMARY | 2024-01-13 21:01 | XMS_ITS | Encounter Summary ---
Author Organization [facility] Address [facility] [place] [address] Care Team Providers Care Hybrid Powertrain Development Engineer Name Role Phone None Primary Care Provider Unavailabl e Encounter Details Date Type Department Care Team (Late st Contact Info) Description 11/22/2020 2:30 PM EDT TH Visit (TeleHealth) Hematology/Oncology at [address] [phone] [facility] [place] [address] Danette Oleary APRN [address] [place] [address] DR HEMATOLOGY ONCOLOGY [place], [place] [id number] Malignant neoplasm of ascending colon Social History [...] history is summarized above. He lives in [facility] and but staying in [place], [place] for the summer months.He is seen [...] the same. Soc Hx: , lives in [place], visiting [place] for the summer Tob - Quit in 2008; priot to that, 2 ppd for 27 years Etoh - 5 to 7 drinks per week On disability due to spinal stenosis. 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 Fam Hx: Father - Mother - Sibs [...] management of colon cancer. He lives in [facility] [place] and is visiting [place] for the summer months. He is seen [...] colon documented in this encounter Care Teams Hybrid Powertrain Development Engineer Relationship Specialty Start Date End Date None None PCP - General 11/08/20 documented as of this encounter
--- OUTSIDE RECORDS SUMMARY | 2024-01-13 21:01 | XMS_ITS | Encounter Summary ---
Author Organization [facility] Address [address] [place] [address] Care Team Providers Care Ndt Inspector Name Role Phone Felicitas Monaco MD Primary Care Provider Yonas lester Reason for Visit * Reason Onset Date Comments Symptom Call For Nurse 10/06/2022 Encounter Details Date Type Department Care Team ([facility] st Contact Info) Description 10/06/2022 Telephone [facility] [address] [place], [place] [phone] Dave Moser MD [address] [place], [place] [phone] Symptom Call For Nurse Social History Tobacco [...] on filedocumented in this encounter Care Teams Ndt Inspector Relationship Specialty Start Date End Date Felicitas Monaco MD PCP - General Family Medicine 08/18/22 documented as of this encounter
--- OUTSIDE RECORDS SUMMARY | 2024-01-13 21:01 | XMS_ITS | Encounter Summary ---
Author Organization [facility] Address [facility] [place] [address] Care Team Providers Care Representative Phlebotomy Services Name Role Phone None Primary Care Provider Renanabl e Encounter Details Date Type Department Care Team (Latest Contact Info) Description 12/13/2020 Unscheduled Encounter Hematology/Oncology at [address] [phone] [facility] DR HEMATOLOGY [place] [address] Malignant neoplasm of ascending colon Social History Tobacco Use Types Packs/Day Years Used Date Smoking Tobacco: Never Smokeless Tobacco: Never Sex and Gender Information Value Date Recorded Sex Assigned at Not on file Gender Identity Not on file Sexual Orientation Not on file documented as of this encounter Progress Notes * Mery Bliss RD - 12/13/2020 3:07 PM EDT [facility] Initial Assessment Patient Name: Martínez Toribio Diagnosis: [...] (or pesto pasta, bread when nauseous) Dinner: [place] virgie steak and squash casserole last night [...] colon documented in this encounter Care Teams Representative Phlebotomy Services Relationship Specialty Start Date End Date None None PCP - General 11/08/20 documented as of this encounter
--- OUTSIDE RECORDS SUMMARY | 2024-01-13 21:01 | XMS_ITS | Encounter Summary ---
Author Organization [facility] Address [facility] [place] [address] Care Team Providers Care Pit Recorder Name Role Phone None Primary Care Provider Unavailabl e Encounter Details Date Type Department Care Team (Late st Contact Info) Description 12/13/2020 9:00 AM EDT Office Visit Hematology/Oncology at [address] [phone] Nik Killian MD [facility] [place] [address] Malignant neoplasm of ascending colon Social History [...] history is summarized above. He lives in [facility] but staying in [place], [place] for the summer months. He is [...] Soc Hx: , lives in [place], visiting [place] for the summer Tob - Quit in 2008; priot to that, 2 ppd for 27 years Etoh - 5 to 7 drinks per week On disability due to spinal stenosis. 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 Fam Hx: Father - Mother - Sibs [...] management of colon cancer. He lives in [facility] and is visiting [place] for the summer [...] colon documented in this encounter Care Teams Pit Recorder Relationship Specialty Start Date End Date None None PCP - General 11/08/20 documented as of this encounter
--- OUTSIDE RECORDS SUMMARY | 2024-01-13 21:01 | XMS_ITS | Encounter Summary ---
Author Organization [facility] Address [address] [place] [address] Care Team Providers Care Travel Professional Name Role Phone Felicitas Monaco MD Primary Care Provider Yonas lester Encounter Details Date Type Department Care Team (Late st Contact Info) Description 10/06/2022 Telephone [facility] [address] [facility] [address] [place], [place] [phone] Tere Mancilla [place], [place] [address] [place], [place] [phone] Social History Tobacco Use Types Packs/Day Years [...] on filedocumented in this encounter Care Teams Travel Professional Relationship Specialty Start Date End Date Felicitas Monaco MD PCP - General Family Medicine 08/18/22 documented as of this encounter
--- OUTSIDE RECORDS SUMMARY | 2024-01-13 21:01 | XMS_ITS | Encounter Summary ---
Author Organization [facility] Address [address] [place] [address] Care Team Providers Care Pearl Stringer Name Role Phone Felicitas Monaco MD Primary Care Provider Yonas lester Reason for Referral * MRI/CAT Scan (Routine) - Closed Specialty Diagnoses / Procedures Referred By Contac t Referred To Contact Radiology Diagnoses Thoracic radiculopathy Procedures MRI Thoracic Spine Wo Contrast Dave Moser MD [address] [place] [address] Referral ID Status Reason Start Date Expiration Date Visits Re quested Visits Authorized [id number] Closed 10/02/2022 10/02/2023 1 1 * (Routine) - Closed Specialty Diagnoses / Procedures Referred By Contac t Referred To Contact Diagnoses Lumbar pain Procedures XR Lumbar Spine AP And Lateral Dave Moser MD [address] [place] [address] Referral ID Status Reason Start Date Expiration Date Visits Re quested Visits Authorized [id number] Closed 09/29/2022 09/29/2023 1 1 Reason for Visit * Reason Comments Pain Encounter Details Date Type Department Care Team ([facility] Contact Info) Description 10/02/2022 1:00 PM EDT Office Visit [facility] [address] [place] [address] Dave Moser MD [address] [place] [address] Lumbar pain (Primary Dx); Thoracic radiculopathy; Lumbar [...] summer. He has hopes of returning to [place]. Patient localizes pain to [...] Physical Therapy - yes Medication - yes Cooks, Flexeril, tylenol Injections - yes Chiropractor - [...] in the thoracic spine Piyush Pendleton MD [[facility]], have reviewed the study and agree with the findings in this report. ??10/28/2022 3:28 PM Narrative 10/28/2022 3:28 PM EDT EXAMINATION: MRI THORACIC SPINE WO CONTRAST 10/28/2022 3:17 PM ACCESSION NUMBER: [id number] INDICATION: thoracic radiculopathy. Mid-back pain, thoracic radiculopathy. COMPARISON: None TECHNIQUE: Multiplanar multisequence MRI of the thoracic spine without intravenous contrast. ?? FINDINGS: There is no evidence of fracture. There are small central disc protrusions of T6-T7 and T7-T1 with mild secondary central canal narrowing. There is no evidence of significant foraminal narrowing. Normal thoracic cord signal. No suspicious mass lesion in the teaso-my-vtyw of this examination. Partially visualized cervical and lumbar hardware. Procedure Note Piyush Vazquez MD - 10/28/2022 EXAMINATION: MRI THORACIC SPINE WO CONTRAST 10/28/2022 3:17 PM ACCESSION NUMBER: [id number] INDICATION: thoracic radiculopathy. Mid-back pain, thoracicradiculopathy. COMPARISON: None TECHNIQUE: Multiplanar multisequence MRI of the thoracic spine without intravenous contrast. FINDINGS: There is no evidence of fracture. There are small central disc protrusionsof T6-T7 and T7-T1 with mild secondary central canal narrowing. There is no evidence of significant foraminal narrowing. Normal thoracic cord signal.No suspicious mass lesion in the iwcbc-bq-uwzu of this examination.Partially visualized cervical and lumbar hardware. IMPRESSION: No evidence of fracture with small central disc protrusions at T6-T7 andT7-T8. No evidence of significant foraminal narrowing in the thoracic spine Piyush Pendelton MD [[facility]], have reviewed the study and agreewith [...] MD. 10/02/2022 1:18 PM Piyush Pendleton MD [[facility]], have reviewed the study and agree with the findings in this report. ??10/02/2022 1:41 PM Narrative 10/02/2022 1:41 PM EDT EXAMINATION: XR LUMBAR SPINE AP AND LATERAL 10/02/2022 1:11 PM ACCESSION NUMBER: [id number] INDICATION: lumbar pain. lumbar pain. COMPARISON: Lumbar [...] AND LATERAL 10/02/2022 1:11 PM ACCESSION NUMBER: [id number] INDICATION: lumbar pain. lumbar pain. COMPARISON: Lumbar [...] 10/02/2022 1:18 PM I, Piyush Vazquez MD [[facility]], have reviewed the study and agreewith [...] unspecified documented in this encounter Care Teams Pearl Stringer Relationship Specialty Start Date End Date Felicitas Monaco MD PCP - General Family Medicine 08/18/22 documented as of this encounter
--- OUTSIDE RECORDS SUMMARY | 2024-01-13 21:01 | XMS_ITS | Clinical Summary ---
Author Organization [facility] Address [facility] [place] [address] Care Team Providers Care Certified Dialysis Technician Name Role Phone None Primary Care Provider [...] - Influenza standard series) 01/30/2024 Care Teams Certified Dialysis Technician Relationship Specialty Start Date End Date None None PCP - General 11/08/20
--- OUTSIDE RECORDS SUMMARY | 2024-01-13 21:01 | XMS_ITS | Referral Summary ---
Author Organization [facility] Address [address] [place] [address] Care Team Providers Care Hydraulic Lift Driver Name Role Phone Felicitas Monaco MD Primary [...] of Treatment Not on file Care Teams Hydraulic Lift Driver Relationship Specialty Start Date End Date Felicitas Monaco MD PCP - General Family Medicine 08/18/22
--- OUTSIDE RECORDS SUMMARY | 2024-01-13 21:01 | XMS_ITS | Encounter Summary ---
Author Organization [facility] [address] Care Team Providers Care Vfx Artist Name Role Phone None Primary Care Provider Unavailabl e Encounter Details Date Type Department Care Team (Late st Contact Info) Description 01/31/2021 Notes Only Hematology/Oncology at [address] [phone] Danette Oleary APRN [address] [place] [address] DR HEMATOLOGY ONCOLOGY [place], [place] [id number] Social History Tobacco Use Types Packs/Day Years [...] on filedocumented in this encounter Care Teams Vfx Artist Relationship Specialty Start Date End Date None None PCP - General 11/08/20 documented as of this encounter
--- OUTSIDE RECORDS SUMMARY | 2024-01-13 21:01 | XMS_ITS | Encounter Summary ---
Author Organization [facility] Address [address] [place] [address] Care Team Providers Care Beer Runner Name Role Phone Felicitas Monaco MD Primary Care Provider Yonas lester Reason for Referral * MRI/CAT Scan (Routine) - Closed Specialty Diagnoses / Procedures Referred By Contac t Referred To Contact Radiology Diagnoses Thoracic radiculopathy Procedures MRI Thoracic Spine Wo Contrast Dave Moser MD [address] [place] [address] Referral ID Status Reason Start Date Expiration Date Visits Re quested Visits Authorized [id number] Closed 10/02/2022 10/02/2023 1 1 Reason for Visit * MRI/CAT Scan (Routine) - Closed Specialty Diagnoses / Procedures Referred By Contac t Referred To Contact Radiology Diagnoses Thoracic radiculopathy Procedures MRI Thoracic Spine Wo Contrast Dave Moser MD [address] [place] [address] Referral ID Status Reason Start Date Expiration Date Visits Re quested Visits Authorized [id number] Closed 10/02/2022 10/02/2023 1 1 Encounter Details Date Type Department Care Team (Latest Contact Info) Description 10/28/2022 2:31 PM EDT - 10/28/2022 11:59 PM EDT Hospital Encounter [facility] - Specialty Care [facility] [address] [place] [address] Dave Moser MD [address] [place] [address] Thoracic radiculopathy Discharge Disposition: Home or Self [...] the thoracic spine Piyush Pendleton MD [[facility]], have reviewed the study and agree with the findings in this report. ??10/28/2022 3:28 PM Narrative 10/28/2022 3:28 PM EDT EXAMINATION: MRI THORACIC SPINE WO CONTRAST 10/28/2022 3:17 PM ACCESSION NUMBER: [id number] INDICATION: thoracic radiculopathy. Mid-back pain, thoracic radiculopathy. COMPARISON: None TECHNIQUE: Multiplanar multisequence MRI of the thoracic spine without intravenous contrast. ?? FINDINGS: There is no evidence of fracture. There are small central disc protrusions of T6-T7 and T7-T1 with mild secondary central canal narrowing. There is no evidence of significant foraminal narrowing. Normal thoracic cord signal. No suspicious mass lesion in the trter-zx-llev of this examination. Partially visualized cervical and lumbar hardware. Procedure Note Piyush Vazquez MD - 10/28/2022 EXAMINATION: MRI THORACIC SPINE WO CONTRAST 10/28/2022 3:17 PM ACCESSION NUMBER: [id number] INDICATION: thoracic radiculopathy. Mid-back pain, thoracicradiculopathy. COMPARISON: None TECHNIQUE: Multiplanar multisequence MRI of the thoracic spine without intravenous contrast. FINDINGS: There is no evidence of fracture. There are small central disc protrusionsof T6-T7 and T7-T1 with mild secondary central canal narrowing. There is no evidence of significant foraminal narrowing. Normal thoracic cord signal.No suspicious mass lesion in the djhbu-vg-gbwh of this examination.Partially visualized cervical and lumbar hardware. IMPRESSION: No evidence of fracture with small central disc protrusions at T6-T7 andT7-T8. No evidence of significant foraminal narrowing in the thoracic spine Piyush Pendleton MD [[facility]], have reviewed the study and agreewith the findings in this report. 10/28/2022 3:28 PM Dave Moser MD IMG MRI ORDERA BLES documented in this encounter Visit Diagnoses Diagnosis Thoracic radiculopathy Thoracic or lumbosacral neuritis or radiculitis, unspecified documented in this encounter Care Teams Beer Runner Relationship Specialty Start Date End Date Felicitas Monaco MD PCP - General Family Medicine 08/18/22 documented as of this encounter
--- OUTSIDE RECORDS SUMMARY | 2024-01-13 21:01 | XMS_ITS | Encounter Summary ---
Author Organization [facility] Address [address] [place] [address] Care Team Providers Care [employer] Human[employer] Teacher Name Role Phone Unavailable Primary Care Provider Unavailabl e Reason for Visit * MRI/CAT Scan (Routine) - Closed Specialty Diagnoses / Procedures Referred By Rachid jimenez Referred To Contact Radiology Diagnoses No diagnosis, [facility] Procedures Import Diag L-Spine Self, Referred [address] [place] [id number] Referral ID Status Reason Start Date Expiration Date Visits Re quested Visits Authorized [id number] Closed 08/27/2022 08/27/2023 1 1 Encounter Details Date Type Department Care Team (Latest Contact Info) Description 07/29/2022 8:35 AM EST - 07/29/2022 11:59 PM [facility] Hospital Encounter [facility] Diagnostic Imaging [address] [facility], [address] [address] Self, Referred [address] [place] [id number] No diagnosis, [facility] Discharge Disposition: Home or Self Care Social [...]
--- OUTSIDE RECORDS SUMMARY | 2024-01-13 21:01 | XMS_ITS | Encounter Summary ---
Author Organization [facility] Address [facility] [place] [address] Care Team Providers Care Customer Liaison Name Role Phone None Primary Care Provider Unavailabl e Encounter Details Date Type Department Care Team (Late st Contact Info) Description 03/07/2021 1:30 PM EDT Office Visit Hematology/Oncology at [address] [phone] Nik Killian MD [facility] [place] [address] Danette Oleary APRN [address] [place] [address] DR HEMATOLOGY ONCOLOGY [place], [place] [id number] Malignant neoplasm of ascending colon Social History [...] this encounter Progress Notes * Danette Oleary, HYPO DIPPER - 03/07/2021 1:30 PM EDT Subjective: Patient ID: Martínez Toribio is a 66 y.o. male. There are no problems to display for this patient. HPI Martínez Toribio is 65 yo, referred for evaluation and management of colon cancer. He lives in [facility] and is visiting [place] for the summer months. He is seen [...] summarized above.) has been spending time in [place] and [place] this summer. He returns to the [facility] onc[facility] clinic in [facility] today for follow-up since completing C8 [...] summarized above.) has been spending time in [place] and [place] this summer. He comes to the [facility] oncology clinic in [facility] todayfor routine follow-up after completing his capecitabine therapy. 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 CBC and CMP and CEA reviewed with Martníez today. Plan: Martínez has a follow up planned for his oncologist in [place], including a CT planned for his follow-up. He will be leaving for [place] soon for the winter. We will be happy to resume care as needed when he returns to the area next year. documented in this encounter Plan of Treatment Not on file documented as of this encounter Visit Diagnoses Diagnosis Malignant neoplasm of ascending colon documented in this encounter Care Teams Customer Liaison Relationship Specialty Start Date End Date None None PCP - General 11/08/20 documented as of this encounter
--- OUTSIDE RECORDS SUMMARY | 2024-01-13 21:01 | XMS_ITS | Encounter Summary ---
[place] [address] Care Team Providers Care Angle Bender Name Role Phone Unavailable Primary Care Provider Unavailabl e Reason for Visit * Reason Comments Specialty Pharmacy Review Capecitabine Encounter Details Date Type Department Care Team (Late st Contact Info) Description 11/06/2020 Specialty [place] [phone] America Weir Social History Tobacco Use Types Packs/Day Years Used Date Smoking Tobacco: Never Smokeless Tobacco: Never Sex and Gender Information Value Date Recorded Sex Assigned at Not on file Gender Identity Not on file Sexual Orientation Not on file documented as of this encounter Progress Notes * America Weir - 11/06/2020 4:06 PM EDT The [facility] has completed a benefits investigation for Martínez Toribio to review their eligibility to fill at [facility]. Per patient's medication list they are prescribed CAPECITABINE and the medication is not able to be filled at the [facility]. documented in this encounter Plan of Treatment Not on file documented as of this encounter Visit Diagnoses Not on filedocumented in this encounter
--- OUTSIDE RECORDS SUMMARY | 2024-01-13 21:01 | XMS_ITS | Encounter Summary ---
Author Organization [facility] Address [address] [place] [address] Care Team Providers Care Supervisory Clerk Name Role Phone Felicitas Monaco MD Primary Care Provider Yonas lester Reason for Referral * MRI/CAT Scan (Routine) - Closed Specialty Diagnoses / Procedures Referred By Contac t Referred To Contact Radiology Diagnoses Lumbar adjacent segment disease with spondylolisthesis Procedures CT Lumbar Spine Wo Contrast Cherie Carter FNP [address] [place] [address] Referral ID Status Reason Start Date Expiration Date Visits Re quested Visits Authorized [id number] Closed 08/21/2022 08/21/2023 1 1 Reason for Visit * MRI/CAT Scan (Routine) - Closed Specialty Diagnoses / Procedures Referred By Contac barbara Referred To Contact Radiology Diagnoses Lumbar adjacent segment disease with spondylolisthesis Procedures CT Lumbar Spine Wo Contrast Cherie Carter FNP [address] [place] [address] Referral ID Status Reason Start Date Expiration Date Visits Re quested Visits Authorized [id number] Closed 08/21/2022 08/21/2023 1 1 Encounter Details Date Type Department Care Team (Latest Contact Info) Description 09/01/2022 3:58 PM EDT Hospital Encounter [facility] CT Imaging [address] [facility], [address] [place] [address] Raul Cherie Bear, ASSOCIATE MARKETING MANAGER [address] [place], [place] [id number] Lumbar adjacent segment disease with spondylolisthesis Discharge [...] WO CONTRAST 09/01/2022 5:07 PM ACCESSION NUMBER: [id number] INDICATION: Low back pain, prior surgery, new [...] WO CONTRAST 09/01/2022 5:07 PM ACCESSION NUMBER: [id number] INDICATION: Low back pain, prior surgery, new [...] this report. 09/01/2022 9:37 PM Cherie Carter [facility] IMG CT AMANDO SAENZ documented in this encounter Visit Diagnoses Diagnosis Lumbar adjacent segment disease with spondylolisthesis documented in this encounter Care Teams Supervisory Clerk Relationship Specialty Start Date End Date Felicitas Monaco MD PCP - General Family Medicine 08/18/22 documented as of this encounter
--- OUTSIDE RECORDS SUMMARY | 2024-01-13 21:01 | XMS_ITS | Encounter Summary ---
[place] [address] Care Team Providers Care Rip Tailer Name Role Phone Unavailable Primary Care Provider Unavailabl e Encounter Details Date Type Department Care Team (Late st Contact Info) Description 10/25/2020 Abstract [place] [address] Shawna Fields Social History Tobacco Use Types [...]
--- OUTSIDE RECORDS SUMMARY | 2024-01-13 21:01 | XMS_ITS | Encounter Summary ---
Author Organization [facility] Address [facility] [place] [address] Care Team Providers Care Paving Machine Operator Name Role Phone None Primary Care Provider Unavailabl e Encounter Details Date Type Department Care Team (Late st Contact Info) Description 01/29/2021 Telephone Hematology Oncology at [address] [phone] Sonam Mcclain RN Social History [...] come in tomorrow at 1330 and the PRODUCTION RECORDER can evaluate it. He is in agreement [...] He would appreciate a call back at [phone]. Thanks Sweta documented in this encounter Plan of Treatment Not on file documented as of this encounter Visit Diagnoses Not on filedocumented in this encounter Care Teams Paving Machine Operator Relationship Specialty Start Date End Date None None PCP - General 11/08/20 documented as of this encounter
--- OUTSIDE RECORDS SUMMARY | 2024-01-13 21:01 | XMS_ITS | Encounter Summary ---
Author Organization [facility] Address [address] [place] [address] Care Team Providers Care Inner Tube Cutter Name Role Phone Felicitas Monaco MD Primary Care Provider Yonas lester Reason for Referral * Rehabilitation (Routine) - Closed Specialty Diagnoses / Procedures Referred By Contact Referred To Contact Physical Medicine and Rehabilitation Diagnoses Lumbar spondylosis Dave Moser MD [address] [place] [address] Georgi Sheets MD [address] [place] [address] Referral ID Status Reason Start Date Expiration Date V isits Requested Visits Authorized [id number] Closed Specialty Services Required 11/06/2022 11/06/2023 1 1 Scheduling Instructions REASON FOR REFERRAL: Patient is a 67 y.o. male with lumbar spondylosis. eval and treat Reason for Visit * Reason Comments Follow-up MRI f/u Encounter Details Date Type Department Care Team ([facility] st Contact Info) Description 11/06/2022 1:15 PM EDT Office Visit [facility] [address] [place] [address] Dave Moser MD [address] [place] [address] Lumbar spondylosis (Primary Dx); Thoracic [...] spondylosis documented in this encounter Care Teams Inner Tube Cutter Relationship Specialty Start Date End Date Felicitas Monaco MD PCP - General Family Medicine 08/18/22 documented as of this encounter
--- OUTSIDE RECORDS SUMMARY | 2024-01-13 21:01 | XMS_ITS | Encounter Summary ---
Author Organization [facility] Address [address] [place] [address] Care Team Providers Care Configuration Release Manager Name Role Phone Felicitas Monaco MD Primary Care Provider Yonas lester Reason for Referral * (Routine) - Closed Specialty Diagnoses / Procedures Referred By Contac t Referred To Contact Diagnoses Lumbar pain Procedures XR Lumbar Spine AP And Lateral Dave Moser MD [address] [place] [address] Referral ID Status Reason Start Date Expiration Date Visits Re quested Visits Authorized [id number] Closed 09/29/2022 09/29/2023 1 1 Reason for Visit * (Routine) - Closed Specialty Diagnoses / Procedures Referred By Contac t Referred To Contact Diagnoses Lumbar pain Procedures XR Lumbar Spine AP And Lateral Dave Moser MD [address] [place] [address] Referral ID Status Reason Start Date Expiration Date Visits Re quested Visits Authorized [id number] Closed 09/29/2022 09/29/2023 1 1 Encounter Details Date Type Department Care Team (Latest Contact Info) Description 10/02/2022 12:53 PM EDT - 10/02/2022 11:59 PM EDT Hospital Encounter RADIOLOGY [facility] [address] [place] [address] Dave Moser MD [address] [place] [address] Lumbar pain Discharge Disposition: Home [...] MD. 10/02/2022 1:18 PM Piyush Pendleton MD [[facility]], have reviewed the study and agree with the findings in this report. ??10/02/2022 1:41 PM Narrative 10/02/2022 1:41 PM EDT EXAMINATION: XR LUMBAR SPINE AP AND LATERAL 10/02/2022 1:11 PM ACCESSION NUMBER: [id number] INDICATION: lumbar pain. lumbar pain. COMPARISON: Lumbar [...] AND LATERAL 10/02/2022 1:11 PM ACCESSION NUMBER: [id number] INDICATION: lumbar pain. lumbar pain. COMPARISON: Lumbar [...] MD. 10/02/2022 1:18 PM Piyush Pendleton MD [[facility]], have reviewed the study and agreewith the findings in this report. 10/02/2022 1:41 PM Dave Moser MD IMG DIAGNOSTIC IMAGING ORDERABLES documented in this encounter Visit Diagnoses Diagnosis Lumbar pain Lumbago documented in this encounter Care Teams Configuration Release Manager Relationship Specialty Start Date End Date Felicitas Monaco MD PCP - General Family Medicine 08/18/22 documented as of this encounter
--- OUTSIDE RECORDS SUMMARY | 2024-01-13 21:01 | XMS_ITS | Encounter Summary ---
Author Organization [facility] [place] [address] Care Team Providers Care Crown Buffer Name Role Phone None Primary Care Provider Unavailabl e Encounter Details Date Type Department Care Team (Late st Contact Info) Description 01/30/2021 1:30 PM EDT Office Visit Hematology/Oncology at [address] [phone] Danette Oleary APRN [address] [place] [address] DR HEMATOLOGY ONCOLOGY [place], [place] [id number] Malignant neoplasm of ascending colon Social History [...] Instructions * Patient Instructions* Matarazzo, Danette A, SLATE SPLITTING SUPERVISOR - 01/30/2021 1:30 PM EDT Here are [...] colon cancer. He lives in [facility] and is visiting [place] for the [...] above.) has been spending time in [place] and [place] this summer. He comes to the [facility] onc[facility] clinic in [place] [facility] todayas an unscheduled visit for some concerning symptoms. Martínez began C7 Capecitabine on 01/27/21 at a dose of 1000mg am and 1500mg pm. He has had dose adjustments previously due to toxicities while taking 1500mg bid. He saw his oncologist in [place], Dr. Carbajal, after C6, and has since returned to [place]. Martínez says toxicities for him seem to [...] above.) has been spending time in [place] and [place] this summer. He comes to the [facility] onc[facility] clinic in [facility] todayas an unscheduled visit for some [...] colon documented in this encounter Care Teams Crown Buffer Relationship Specialty Start Date End Date None None PCP - General 11/08/20 documented as of this encounter
--- OUTSIDE RECORDS SUMMARY | 2024-01-13 21:01 | XMS_ITS | Encounter Summary ---
Author Organization [facility] Address [address] [place] [address] Care Team Providers Care Diabetes Trainer Name Role Phone Felicitas Monaco MD Primary Care Provider Yonas lester Reason for Referral * MRI/CAT Scan (Routine) - Closed Specialty Diagnoses / Procedures Referred By Contac t Referred To Contact Radiology Diagnoses Lumbar adjacent segment disease with spondylolisthesis Procedures MRI Lumbar Spine Wo Contrast Cherie Carter FNP [address] [place] [address] Referral ID Status Reason Start Date Expiration Date Visits Re quested Visits Authorized [id number] Closed 08/21/2022 08/21/2023 1 1 Reason for Visit * MRI/CAT Scan (Routine) - Closed Specialty Diagnoses / Procedures Referred By Contac barbara Referred To Contact Radiology Diagnoses Lumbar adjacent segment disease with spondylolisthesis Procedures MRI Lumbar Spine Wo Contrast Cherie Carter FNP [address] [place] [address] Referral ID Status Reason Start Date Expiration Date Visits Re quested Visits Authorized [id number] Closed 08/21/2022 08/21/2023 1 1 Encounter Details Date Type Department Care Team (Latest Contact Info) Description 09/01/2022 3:59 PM EDT - 09/01/2022 11:59 PM EDT Hospital Encounter [facility]ly [facility], later [facility] [address] [place] [address] Cherie Carter, CLINICAL ADMINISTRATIVE COORDINATOR [address] [place] [address] Lumbar adjacent segment disease with [...] WO CONTRAST 09/01/2022 4:43 PM ACCESSION NUMBER: [id number] INDICATION:Low back pain, symptoms persist with > [...] WO CONTRAST 09/01/2022 4:43 PM ACCESSION NUMBER: [id number] INDICATION:Low back pain, symptoms persist with > [...] this report. 09/01/2022 5:22 PM Cherie Carter CLINICAL ADMINISTRATIVE COORDINATOR IMG MRI ORD ERABLES documented in this encounter Visit Diagnoses Diagnosis Lumbar adjacent segment disease with spondylolisthesis documented in this encounter Care Teams Diabetes Trainer Relationship Specialty Start Date End Date Felicitas Monaco MD PCP - General Family Medicine 08/18/22 documented as of this encounter
--- OUTSIDE RECORDS SUMMARY | 2024-01-13 21:02 | XMS_ITS | Continuity of Care Document ---
Author Name DOD-ME Organization DOD-ME Care Team Providers Care Resistor Tester Name Role Phone [facility] Unavailable Unavailable Problems [...] tylenol daily DoD essential hypertension Inactive Condition [facility] routine history and physical Inactive Condition [...] ORAL, AUROBINDO PHARM, 100 ea. BOTTLE Active [id number] 2023 4 Pharmac y Data Transac [...] ORAL, NIVAGEN PHARMAC, 500 ea. BOTTLE Active [id number] 2023 30 Pharmac y Data Transac [...] before becoming .Store in original package. 12/07/2023 [id number] 2022 6 [facility] Mark ton glucose test strip (freestyle [...] NASAL, PADAGIS, 2 ea. BLIST PACK Active [id number] 2023 2 Pharmac y Data Transac [...] HCL (OXYCODONE HCL), 5 MG, TABLET, ORAL, [place] [facility], 100 ea. BOTTLE Active [id number] 4 2023 20 Pharmac y Data Transac tion Service Facilit y OZEMPIC (semaglutid e), 1/0.75 (3), PEN INJCTR, SUBCUT, UYEN NORDISK, 3 ml SYRINGE Active [id number] 4 2023 3 Pharmac y Data Transac [...] ORAL, 'S LAB, 150 ea. BOTTLE Active [id number] 2023 30 Pharmac y Data Transac tion Service Facilit y TIZANIDINE HCL (TIZANIDINE HCL), 4MG, TABLET, ORAL, 'S LAB, 150 ea. BOTTLE Active [id number] 2023 30 Pharmac y Data Transac tion Service Facilit y TIZANIDINE HCL (TIZANIDINE HCL), 4MG, TABLET, ORAL, 'S LAB, 150 ea. BOTTLE Active [id number] 2023 30 Pharmac y Data Transac tion Service Facilit y TIZANIDINE HCL (TIZANIDINE HCL), 4MG, TABLET, ORAL, 'S LAB, 150 ea. BOTTLE Active [id number] 2023 30 Pharmac y Data Transac tion Service Facilit y TRAMADOL HCL (tramadol HCl), 50 MG, TABLET, ORAL, [facility], 1000 ea. BOTTLE Active [id number] 2023 20 Pharmac y Data Transac tion Service Facilit y TRAMADOL HCL (tramadol HCl), 50 MG, TABLET, ORAL, [facility], 1000 ea. BOTTLE Active [id number] 2023 20 Pharmac y Data Transac tion Service Facilit y TRAMADOL HCL (TRAMADOL HCL), 50MG, TABLET, ORAL, AMNEAL PHARMACE, 1000 ea. BOTTLE Active [id number] 2023 20 Pharmac y Data Transac [...] ORAL, SALIX PHARMACEU, 60 ea. BOTTLE Active [id number] 2023 42 Pharmac y Data Transac [...] allergy (disorder) Unknown, Other: Sensitivity active 5 [facility] [place] n Immunizations Combined list of available immunizations from the Department of Defense and Veterans Affairs facilities. Immunization Series Date Given Administered By Site Reaction Lot Number CVX Code Drug Unix Administrator Status Comments Source Pneumococcal conjugate PCV20 1 2022 Unknown, Provider [id number] [employer] (PFR) complet ed Pneumococ alexsandra conjugate PCV20 DoD COVID-19, mRNA, LNP-S, bivalent, PF, 30 mcg/0.3 mL dose (Pfizer, 12+ years) 1 2022 Unknown, Provider [id number] [employer] (PFR) complet ed COVID-19, mRNA, LNP-S, bivalent, PF, 30 mcg/0.3 mL dose (Pfizer, 12+ years) DoD influenza, injectable, quadrivalent- pf 2020 Right Arm [id number] [employer] ne complet ed influenza , injectabl e, [...] inj, MDCK, quadrivalent- pf 2016 Right Arm [id number] Se[employer] complet ed Influenza , inj, MDCK, quadrival ent-pf 04/30/17 Given Ambulat ory Pharmac y Influenza, injectable, Madin Kaylen Canine Kidney, preservative free, quadrivalent 1 2016 Unknown, Provider [id number] [employer] (SEQ) complet ed Influenza , injectabl e, Madin Kaylen Canine Kidney, preservat baldo free, quadrival ent DoD influenza, seasonal, injectable-pf 2015 Left Arm [id number] [employer] complet ed influenza , seasonal, injectabl e-pf 03/30/16 Given Ambulat ory Pharmac y Influenza, seasonal, injectable, preservative free 1 2015 Unknown, Provider [id number] [employer] (SEQ) complet ed Influenza , seasonal, injectabl e, preservat baldo free DoD influenza, seasonal, injectable-pf 2014 Left Arm [id number] CSL Behring complet ed influenza , seasonal, injectabl e-pf 04/11/15 Given Ambulat ory Pharmac y zoster vaccine live 2014 Right Arm [id number] Merck & Company Inc complet ed zoster vaccine live 04/11/15 Given Ambulat ory Pharmac y zoster vaccine, live 1 2014 Unknown, Provider [id number] Merck (MSD) complet ed zoster vaccine, live DoD Influenza, seasonal, injectable, preservative free 1 2014 Unknown, Provider [id number] [employer] (CSL) complet ed Influenza , seasonal, injectabl e, preservat baldo free DoD tuberculin purified protein derivative 2014 Left Arm [id number] Rylie Wiley complet ed Patient Tolerance : Negative Ambulat ory Pharmac y tuberculin skin test; purified protein derivative solution, intradermal 0 2014 JANEE SINGH [id number] Lisa (PD) complet ed tuberculi n [...] vaccine 3 2013 Unknown, Provider [id number] [employer] (SKB) complet ed hepatitis A and hepatitis [...] diphtheria, acellular pertu is 2012 Right Arm [id number] 115 sanofi pasteur complet ed tetanus, diphtheri a, acellular pertussis 04/12/13 Given Ambulat ory Pharmac y tetanus toxoid, reduced diphtheria toxoid, and acellular pertu is vaccine, adsorbed 1 2012 JANEE SINGH [id number] Sanofi Pasteur ([facility]) complet ed tetanus toxoid, reduced diphtheri a toxoid, and acellular pertussis vaccine, adsorbed DoD Influenza, injectable, MDCK-pf 2012 Left Arm [id number] 153 Novartis Pharmaceutica ls complet ed Influenza , injectabl e, MDCK-pf 03/31/13 Given Ambulat ory Pharmac y Influenza, injectable, Madin Kaylen Canine Kidney, preservative free 11 2012 Unknown, Provider [id number] Novartis Pharmaceutica l Ever. (NOV) complet ed Influenza , injectabl e, Madin [place]erton Canine Kidney, preservat baldo free DoD influenza, seasonal, injectable-pf 2010 Left Arm [id number] 140 sanofi pasteur complet ed influenza , seasonal, injectabl e-pf 04/27/11 Given Ambulat ory Pharmac y tetanus, diphtheria, acellular pertu is 2010 Right Arm [id number] 115 [facility] [address] complet ed tetanus, diphtheri a, acellular pertussis 04/27/11 Given Ambulat ory Pharmac y tetanus toxoid, reduced diphtheria toxoid, and acellular pertu is vaccine, adsorbed 1 2010 Unknown, Provider [id number] 115 [facility] (SKB) complet ed tetanus toxoid, reduced diphtheri a toxoid, and acellular pertussis vaccine, adsorbed DoD Influenza, seasonal, injectable, preservative free 1 2010 Unknown, Provider [id number] 140 Sanofi Pasteur ([facility]) complet ed Influenza , seasonal, injectabl e, [...] y influenza virus vaccine,split 2008 Left Arm [id number] 15 sanofi pasteur complet ed influenza virus vaccine,s plit 03/20/09 Given Ambulat ory Pharmac y influenza virus vaccine, split virus (incl. purified surface antigen)-reti red CODE 1 2008 Unknown, Provider [id number] Edis Sanofi Pasteur ([facility]) complet ed influenza virus vaccine, split virus (incl. purified surface antigen)- retired CODE DoD influenza virus vaccine,split 2007 Left Arm [id number] 15 sanofi pasteur complet ed influenza virus vaccine,s plit 05/18/08 Given Ambulat ory Pharmac y influenza virus vaccine, split virus (incl. purified surface antigen)-reti red CODE 1 2007 Unknown, Provider [id number] Edis [facility] ([facility]) complet ed influenza virus vaccine, split virus (incl. purified surface antigen)- retired CODE DoD influenza virus vaccine,split 2007 Left Arm [id number] sanofi pasteur complet ed influenza virus vaccine,s plit 06/23/07 Given Ambulat ory Pharmac y influenza virus vaccine, split virus (incl. purified surface antigen)-reti red CODE 1 2007 Unknown, Provider [id number] Edis Sanofi Pasteur ([facility]) complet ed influenza virus vaccine, split virus (incl. purified surface antigen)- retired CODE DoD influenza virus vaccine,split 2005 Left Arm [id number] sanofi pasteur complet ed influenza virus vaccine,s plit 05/17/06 Given Ambulat ory Pharmac y influenza virus vaccine, split virus (incl. purified surface antigen)-reti red CODE 1 2005 Unknown, Provider [id number] Edis Dunnofi Pasteur ([facility]) complet ed influenza virus vaccine, split virus (incl. purified surface antigen)- retired CODE DoD influenza virus vaccine,split 2004 Right Arm [id number] sanofi pasteur complet ed influenza virus vaccine,s plit 04/21/05 Given Ambulat ory Pharmac y influenza virus vaccine, split virus (incl. purified surface antigen)-reti red CODE 1 2004 Unknown, Provider [id number] Edis Sanofi Pasteur ([facility]) complet ed influenza virus vaccine, split virus (incl. purified surface antigen)- retired CODE [facility] tetanus-dipht h toxoids (Td) adult/adol 2004 Left Arm 09 complet ed tetanus-d iphth toxoids (Td) adult/ado l 07/20/04 Given Ambulat ory Pharmac y tetanus and diphtheria toxoids, adsorbed, preservative free, for adult use (2 Lf of tetanus toxoid and 2 Lf of diphtheria toxoid) 2 2004 Unknown, Provider 09 [place] ([facility]) complet ed tetanus and diphtheri a toxoids, adsorbed, preservat baldo free, for adult use (2 Lf of tetanus toxoid and 2 Lf of diphtheri a toxoid) DoD influenza virus vaccine,split 2003 Left Arm [id number] 15 sanofi pasteur complet ed influenza virus vaccine,s plit 05/16/04 Given Ambulat ory Pharmac y influenza virus vaccine, split virus (incl. purified surface antigen)-reti red CODE 1 2003 Unknown, Provider [id number] 15 Sanofi Pasteur ([facility]) complet ed influenza virus vaccine, split virus (incl. purified surface antigen)- retired CODE DoD influenza virus vaccine,split 2002 Left Thigh [id number] 15 Novartis Pharmaceutica ls complet ed influenza virus vaccine,s plit 05/09/03 Given Ambulat ory Pharmac y influenza virus vaccine, split virus (incl. purified surface antigen)-reti red CODE 1 2002 Unknown, Provider [id number] 15 [employer] Pharm[employer] ls (PWJ) complet ed influenza virus vaccine, split virus (incl. purified surface antigen)- retired CODE [facility] tetanus-dipht h toxoids (Td) adult/adol 2002 Left Arm [id number] 09 sanofi pasteur complet ed tetanus-d iphth toxoids (Td) adult/ado l 02/02/03 Given Ambulat ory Pharmac y tetanus and diphtheria toxoids, adsorbed, preservative free, for adult use (2 Lf of tetanus toxoid and 2 Lf of diphtheria toxoid) 1 2002 Unknown, Provider [id number] 09 Shaunofi Pasteur ([facility]) complet ed tetanus and diphtheri a toxoids, adsorbed, preservat baldo free, for adult use (2 Lf of tetanus toxoid and 2 Lf of diphtheri a toxoid) DoD influenza virus vaccine, whole virus 2002 Left Arm [id number] 16 sanofi pasteur complet ed influenza virus vaccine, whole virus 06/08/02 Given Ambulat ory Pharmac y influenza virus vaccine, whole virus 1 2002 Unknown, Provider [id number] 16 Sanofi Pasteur ([facility]) complet ed influenza virus vaccine, whole virus DoD influenza virus vaccine, whole virus 2000 [id number] 16 sanofi pasteur complet ed influenza virus vaccine, whole virus 05/20/01 Given Ambulat ory Pharmac y influenza virus vaccine, whole virus 1 2000 Unknown, Provider [id number] 16 Sanofi Pasteur ([facility]) complet ed influenza virus vaccine, whole virus [...] katz. Performed by: Epidemiolog y [facility] [address] [place] [phone] [facility] Chemistr y Glucose Lvl [...] Clinical Albuminuria (>300 MCG/MG Creatinine) . The [place] [employer] position statement on Diabetic Nephropathy states that Microalbumi trip is present if the Microalbumi n/Creatinin e ratio exceeds 30 MCG/MG Creatinine. The classificat ion of a patient should be based upon at least 2 of 3 abnormal results on specimens collected within a 3 to 6 month time frame. [facility] Hematolo gy WBC 6.54 10^3/uL 4.23 - 9.18979 06/30 N [facility] Hematolo gy RBC 5.13 10^6/uL 4.63 - 6.92974 06/30 N [facility] Pharmacy Hematolo gy [...] Hematolo gy Platelets 209 10^3/uL 163 - [phone] 06/30 N [facility] Pharmacy Hematolo gy [...] gy Neutro Absolute 3.99 10^3/uL 1.78 - 5.40192 06/30 N [facility] Hematolo gy Lymph Absolute 1.66 10^3/uL 1.32 - 3.59797 06/30 N [facility] Hematolo gy [place] Absolute 0.74 10^3/uL 0.30 - 0.79557 06/30 N [facility] Hematolo gy Eos Absolute 0.12 10^3/uL 0.04 - 0.08759 06/30 N [facility] Hematolo gy Baso Absolute 0.03 10^3/uL 0.01 - 0.60482 06/30 N [facility] Pharmacy Chemistr y [...] to represent clinical deficiency. Performed At: [address] [id number] Ajit Swift MD Ph:[phone] [facility] Chemistr y Ferritin.E PI 206 ng/mL 06/11 Result Comment: INTERPRETAT ION(S): Performed by: [facility] [address] [address] [place] [phone] [facility] Chemistr y Iron.EPI 97 ug/dL 06/11 Result Comment: INTERPRETAT ION(S): Performed by: [facility] [address] [place] [phone] [facility] Chemistr y Iron Binding Capacity Total.EPI 283 ug/dL 06/11 [facility] Chemistr y Iron Binding Capacity Unsat.EPI 186 ug/dL 06/11 [facility] Pharm[facility] Chemistr y Transferri n Saturation .EPI 34 % 06/11 [facility] Hematolo gy WBC 5.54 10^3/uL 4.23 - 9.58703 06/11 N [facility] Hematolo gy RBC 5.42 10^6/uL 4.63 - 6.87701 06/11 N [facility] Hematolo gy [...] Hematolo gy Platelets 221 10^3/uL 163 - [phone] 06/11 N [facility] Pharm[facility] Hematolo gy [...] gy Neutro Absolute 3.17 10^3/uL 1.78 - 5.63111 06/11 N [facility] Hematolo gy Lymph Absolute 1.64 10^3/uL 1.32 - 3.61783 06/11 N [facility] Hematolo gy [place] Absolute 0.57 10^3/uL 0.30 - 0.40609 06/11 N [facility] Hematolo gy Eos Absolute 0.13 10^3/uL 0.04 - 0.35207 06/11 N [facility] Hematolo gy Baso Absolute 0.03 10^3/uL 0.01 - 0.45109 06/11 N Amb[facility] Pharmacy Encounters Combined list of: 1) Encounters from Department of Veterans Affairs facilities going back up to thelast 18 months. 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 Location Location Details Encounter Type Encounter Number Reason For Visit Attending Provider ADM Date DC Date Status Disposition Source [facility] Batsheva weiss([facility] Opt[facility] Clinic) OUTPATIENT [id number] vision changes GURPREET LUCAS 06/20 Released w/o Limitations [facility] Mark gallo([facility] C Optomet ry Clinic) [facility] [id number] F/U LT KNEE AND LT SHOULDE R LUIS MANUEL HORVATH 04/21 Released w/o Limitations [facility] Mark sabino([facility]) [facility] n([facility] F[facility] Prac Clinic) TELE CONSULT [id number] WANT RESULT OF M.R.I PCM DR ANGY POOLE-KIAN HUSTON 05/13 [facility] Mark sabino([facility]) [facility] TELE CONSULT [id number] MRI LUIS MANUEL TRAVIS 05/18 [facility] Mark sabino([facility]) [facility] isela([facility] Orthopedi c Clinic) OUTPATIENT [id number] left shoulde r pain LIANG RICE 07/06 Released with Work/Duty Limitations [facility] Mark gallo([facility] C Orthope dic Clinic) [facility] Physical [facility] OUTPATIENT [id number] left knee pain ASHLEY CARRINGTON R S 07/08 Released w/o Limitations [facility] Mark gallo([facility] C Physica l Therapy ) [facility] n([facility] Physical Therapy) OUTPATIENT [id number] ASHLEY CARRINGTON S 08/03 Released w/o Limitations [facility] Mark gallo([facility] C Physica l Therapy ) [facility] n([facility] Orthopedi [facility] Clinic) OUTPATIENT [id number] fu appt - left shoulde r LIANG Hopkins 08/03 Released with Work/Duty Limitations [facility] Mark gallo([facility] C Orthope dic Clinic) [facility] OUTPATIENT [id number] left knee pain BELEN ARNDT P 08/17 Released w/o Limitations [facility] Mark gallo([facility] C Orthope dic Clinic) [facility] n([facility] Orthopedi c Clinic) OUTPATIENT [id number] L knee pain chronic BELEN ARNDT P 11/03 Released w/o Limitations [facility] Mark gallo([facility] C Orthope dic Clinic) [facility] n([facility] Fam Prac Clinic) TELE CONSULT [id number] LEFT HEEL MARLENI ZAVALETA 03/12 [facility] [place]) [facility] n([facility]) TELE CONSULT [id number] Rx KERMIT Richardson 03/29 [facility]) [facility] n([facility]) TELE CONSULT [id number] Team phone- Juanito- JAYLON Rincon 10/27 [facility]) [facility] n([facility]) OUTPATIENT [id number] physica JAYLON Francis 11/23 Released w/o Limitations [facility] Mark [facility]o([facility]) [facility] n([facility]) OUTPATIENT [id number] f/u diabete JAYLON Ramos 12/17 Released w/o Limitations [facility] Mark [facility]) [facility] n([facility]) OUTPATIENT [id number] f/u diabete s JAYLON Vaca 01/14 Released w/o Limitations [facility] Mark gallo([facility]) [facility]) OUTPATIENT [id number] needs new script wa taking acifex. MERVIN GONCALVES 03/29 Released w/o Limitations [facility] Mark gallo([facility]) [facility] n([facility]) TELE CONSULT [id number] Medicat ion RefGABI Chi 06/23 [facility] Mark [facility]o([facility]) [facility] n([facility]) TELE CONSULT [id number] base on FMP Martínez Toribio is the pt and he has light headnes MERVIN Castellanos 07/20 [facility] Mark gallo([facility]) [facility] n([facility]) OUTPATIENT [id number] diabeti c fol up; labs MERVIN Ackerman 07/22 Released w/o Limitations [facility] Mark gallo([facility]) [facility] [place] n([facility]) OUTPATIENT [id number] med refill MERVIN GONCALVES 08/10 Released w/o Limitations [facility] Mark gallo([facility]) [facility] n([facility]) TELE CONSULT [id number] team phone-- Katina- -Pt having abdomin al upset MERVIN GONCALVES 09/19 [facility] Mark [place]o([facility]) [facility] n([facility]) TELE CONSULT [id number] med refills [phone] MARK MONET W 04/17 [facility] Mark gallo([facility]) [facility] n([facility]) TELE CONSULT [id number] med refill BETTE RUSSO 05/14 [facility] Mark sabino([facility]) [facility] n([facility]) OUTPATIENT [id number] lab review MARK MONET W 05/29 Released w/o Limitations [facility] Mark gallo([facility]) [facility] Mark n([facility] Nutrition [facility]) OUTPATIENT [id number] JACK MAC 07/03 Released w/o Limitations [facility] Mark gallo([facility] B Nutriti on Clinic) [facility] n([facility]) TELE CONSULT [id number] glucofa ge refill MARK MONET 10/24 [facility] Mark gallo([facility]) [facility] n([facility]) OUTPATIENT [id number] [facility]eti c [facility] Released w/o Limitations [facility] Mark gallo([facility]) [facility] n([facility]) TELE CONSULT [id number] med refill SCOTTIE ANAND 12/07 [facility] Mark sabino([facility]) [facility] n([facility]) TELE CONSULT [id number] Team phone- refill Nexium 20mg, [phone] GABRIELLA RIDER 03/18 Referred for Appointment [facility] Mark gallo([facility]) [facility] n([facility]) TELE CONSULT [id number] EXTREME LOWER ABDOMIN AL PRESSUR E. HAD NORMAL BM TODAY. CALL [phone]. SEJAL POTTER 06/06 Referred- Emergency Department [facility] Mark gallo([facility]) [facility] n([facility]) TELE CONSULT [id number] PER E R HE HAS A 6MM KIDNEY STONE AND NEEDS UROLOGY REF. CALL [phone] RANDY VERONICAFRANK GABRIELLA BROOKLYN 06/07 Referred for Appointment [facility] Mark gallo([facility]) [facility] n([facility]) TELE CONSULT [id number] meds out for blood pressur e, diabete s has been w/o for 2 days, refill IESHA Tyson 07/16 Referred for Appointment [facility] Mark gallo([facility]) [facility] n([facility]) TELE CONSULT [id number] [employer] pt EST for Sep 16. Pt out of BP medicat ion/686 [id number] [facility] SCOTTIE ANAND 09/03 Referred for Appointment [facility] Mark gallo([facility] Fam Prac [facility]) [facility]) OUTPATIENT [id number] EST for labs and medicat ions. Pt states labs done already MARK MONET 09/13 Released w/o Limitations [facility] Mark gallo([facility]) [facility] Cardiolog y Clinic) OUTPATIENT [id number] FEET PAIN MARIE BISWAS 02/10 Released w/o Limitations [facility] Mark gallo([facility] C Cardiol ogy Clinic) [facility] n([facility] Cardiolog [facility]) TELE CONSULT [id number] PT CALLED AND SAID THAT HE WAS SEEN IN SUM[place] GARRICK PAIGE [facility] FOR NANCY CRABTREE 03/19 [facility] Mark sabino([facility] C Cardiol ogy Clinic) [facility] n([facility] Cardiolog y Clinic) OUTPATIENT [id number] MARIE BISWAS 03/24 Released w/o Limitations [facility] Mark gallo([facility] C Cardiol ogy Clinic) [facility] Batsheva weiss([facility] Cardiolog [facility] Clinic) OUTPATIENT [id number] EKG abnorma LIZ Sandoval 03/25 Released w/o Limitations [facility] Mark gallo([facility] C Cardiol ogy Clinic) [facility] Bats[facility]va weiss([facility] Cardiolog [facility]) TELE CONSULT [id number] RES[facility] NANCY TREVINO 03/31 [facility] Mark gallo([facility] C Cardiol ogy Clinic) [facility] Batsheva weiss([facility] Cardiolog [facility] Clinic) TELE CONSULT [id number] results in clinica MARIE Johnson 04/02 [facility] [facility] Batsheva weiss([facility] Cardiolog y Clinic) TELE CONSULT [id number] results in clinica MARIE Johnson 04/03 [facility] Mark gallo([facility] C Cardiol ogy Clinic) [facility]ats[facility]va weiss([facility] Cardiolog y Clinic) TELE CONSULT [id number] PT NEED REFILLS ON THE FOLLOWI NG: ZOCOR20 MG/ NEXIUM 20MG/ LOTREL JOANNA 520MG/ GLU NANCY TREVINO 04/09 [facility] Mark gallo([facility] C Cardiol ogy Clinic) [facility] Bats[facility]va weiss([facility] Dermatolo gy Clinic) OUTPATIENT [id number] skin: a rash [as Sx] FREDRICK WATKINS 04/16 Released w/o Limitations [facility] Mark gallo([facility] C Dermato logy Clinic) [facility] weiss([facility] Cardiolog y Clinic) OUTPATIENT [id number] labs/ek g/l foot MARIE BISWAS 04/30 Released w/o Limitations [facility] Mark gallo([facility] C Cardiol ogy Clinic) [facility] Bats[facility]va weiss([facility]) OUTPATIENT [id number] pneumon ia .5cc im l deltoid JANEE SINGH 04/30 Released w/o Limitations [facility] Mark sabino([facility] Occupat [facility]) [facility] [place]([facility] Cardiolog [facility] Clinic) TELE CONSULT [id number] results in clinica l notes MARIE BISWAS 06/26 [facility] Mark [place]o([facility] C Cardiol ogy Clinic) [facility] [place]([facility] Dermatolo [facility] Clinic) OUTPATIENT [id number] LN2 VS FREDRICK GARCIA 06/30 Released w/o Limitations [facility] Mark sabino([facility] Dermato logy Clinic) [facility] [place]([facility] Cardiolog y Clinic) TELE CONSULT [id number] results in clinica l notes. MARIE BISWAS 07/11 [facility] [place]o([facility] Cardiol ogy Clinic) [facility] [place]([facility] Cardiolog [facility] Clinic) TELE CONSULT [id number] results in clinica l notes. MARIE BISWAS 07/14 [facility] [place] Cardiol ogy Clinic) [facility] [place] n([facility] Cardiolog [facility] Clinic) TELE CONSULT [id number] results in clinica l notes MARIE BISWAS 08/22 [facility] [place] Cardiol ogy Clinic) [facility] [place]([facility] Cardiolog [facility] Clinic) OUTPATIENT [id number] semi annual ck MARIE BISWAS 09/19 Released w/o Limitations [facility] [place] Cardiol ogy Clinic) [facility] [place]([facility] Cardiolog [facility] Clinic) TELE CONSULT [id number] lab results MARIE BISWAS 09/26 [facility] [place] Cardiol ogy Clinic) [facility] [place]([facility] Cardiolog [facility] Clinic) TELE CONSULT [id number] appt request LAMONTE MITCHELL 10/16 [facility] gallo([facility] C Cardiol ogy Clinic) [facility] [place] [facility] TELE CONSULT [id number] pt is having surgery and the Dr wants him to go to physica therapy JAMAR Sun 11/18 [facility] Mark gallo([facility] Fam Med MHC Gold) [facility] n([facility] Med MHC Gold) TELE CONSULT [id number] patient is request ing joe cornell for physica l therapy ZANAKMLUSI DECKER 11/18 [facility] Mark gallo([facility] Fam Med MHC Gold) [facility] n([facility] Fam Med [facility]) TELE CONSULT [id number] Orthopa edic results 011 BETTY BISWASANN 11/20 [facility] gallo([facility] Fam Med MHC Gold) [facility] n([facility] Med MHC Gold) TELE CONSULT [id number] STEVE MENDENHALL 01/12 [facility] Mark gallo([facility] Fam Med MHC Gold) [facility] n([facility] Med MHC Gold) OUTPATIENT [id number] Physica l exam RAFAELA BISWASRYANN 02/25 Released w/o Limitations [facility] Mark gallo([facility] Fam Med MHC Gold) [facility]va weiss([facility] Med [facility] Gold) TELE CONSULT [id number] Notes Entered by: CAROLYN CASTANEDA 22 Sep 2011 1015 ------- ------- ------- ------- -- Orthope dic surgery JAMAR Correia 09/21 [facility] [place]([facility] Fam Med MHC Gold) [facility] [place] n([facility] Fam Med [facility] Gold) TELE CONSULT [id number] Notes Entered by: CAROLYN CASTANEDA 13 Oct 2011 1358 ------- ------- ------- ------- -- ReferJAMAR Quinones 10/12 [facility] [place]([facility] Fam Med MHC Gold) [facility] [place] n([facility] Dermatolo gy Clinic) OUTPATIENT [id number] F/U CONSULT FREDRICK WATKINS 11/11 Released w/o Limitations [facility] Mark gallo([facility] Dermato logy Clinic) [facility] Batsheva isela([facility] Med MHC Blue) TELE CONSULT [id number] Notes Entered by: MAKAYLA BARTON 02 Feb 2013 1041 ------- ------- ------- ------- -- Refill of Meds/ Crestor /Nexium /Janume t and Lotrel/ Cdr Marilee Patient KHUSHBU RAMIREZ Chiquita 02/02 [facility] [place]o([facility] Fam Med MHC Blue) [facility] Markstefany weiss([facility] Med MHC Blue) TELE CONSULT [id number] Notes Entered by: GAGE SPENCER 08 Feb 2013 1517 ------- ------- ------- ------- -- PT needs refills QUINN COPE 02/08 [facility] Mark gallo([facility] Fam Med MHC Blue) [facility] Markstefany weiss([facility] Med MHC Blue) TELE CONSULT [id number] Notes Entered by: MAKAYLA BARTON 09 Mar 2013 1142 ------- ------- ------- ------- -- Missed appt today at 1125 because he was out of town/Wa nts to be seen today KHUSHBU RAMIREZ Chiquita 03/09 [facility] Mark gallo([facility] Fam Med MHC Blue) [facility] Batsheva isela([facility] Med MHC Blue) OUTPATIENT [id number] new pt(labs /meds) QUINN COPE 03/14 Released w/o Limitations [facility] Mark gallo([facility] Fam Med MHC Blue) [facility]va weiss([facility] Med MHC Blue) OUTPATIENT [id number] f/u labs QUINN COPE 03/20 Released w/o Limitations [facility] Mark gallo([facility] Fam Med MHC Blue) [facility] Bats[facility] isela([facility] Case Managemen t) OUTPATIENT [id number] Notes Entered by: NARESH ADAME 20 Mar 2013 1207 ------- ------- ------- ------- -- cm for dm NARESH EDEN 03/20 Released w/o Limitations [facility] Mark gallo([facility] Case Managem ent) [facility] Mark isela([facility] Med MHC Gold) TELE CONSULT [id number] Notes Entered by: CAROLYN CASTANEDA 05 Apr 2013 1427 ------- ------- ------- ------- -- Request ing joe referra l to neurosu JAMAR Nixon 04/05 [facility] Mark gallo([facility] Med MHC Gold) [facility] isela([facility] Med MHC Gold) OUTPATIENT [id number] MARIE Neri 04/12 Released w/o Limitations [facility] Mark gallo([facility] Med MHC Gold) [facility] Mark isela([facility]) OUTPATIENT [id number] Notes Entered by: JANEE SINGH 12 Apr 2013 0829 ------- ------- ------- ------- -- JANEE Mathias 04/12 Released w/o Limitations [facility]) [facility] Mark isela([facility] Med MHC Gold) TELE CONSULT [id number] Notes Entered by: TIMA ORDONEZ 19 Apr 2013 0925 ------- ------- ------- ------- -- Pain Special ists 013 MARIE BISWAS 04/19 [facility] [place]o([facility] Bablic Med MHC Gold) [facility] isela([facility] Med MHC Gold) TELE CONSULT [id number] Notes Entered by: MARTHA PINA 01 Jun 2013 0841 ------- ------- ------- ------- -- 11 MAY 2013 [facility] MARIE BISWAS 06/01 [facility] Mark gallo([facility] Med MHC Gold) [facility] n([facility] MHC Gold) OUTPATIENT [id number] f/u for lab results MARIE BISWAS 08/16 Released w/o Limitations [facility] Mark gallo([facility] Med MHC Gold) [facility] [place] n([facility]) OUTPATIENT [id number] Notes Entered by: SUZETTE OROSCO 16 Aug 2013 0909 ------- ------- ------- ------- -- TWINRIX SUZETTE OROSCO 08/16 Released w/o Limitations [facility] gallo([facility]) [facility] [place] n([facility]) OUTPATIENT [id number] Notes Entered by: SONIA ROMERO 18 Sep 2013 0721 ------- ------- ------- ------- -- TWINRIX #2 CHAD PARK 09/18 Released w/o Limitations [facility] Mark gallo([facility]) [facility] [place] n([facility] Med MHC Gold) TELE CONSULT [id number] Notes Entered by: CAROLYN CASTANEDA 30 Oct 2013 1007 ------- ------- ------- ------- -- appoint JAMAR Browning 10/30 [facility] Mark [place]o([facility] Fam Med MHC Gold) [facility] Mark n([facility] Med MHC Gold) OUTPATIENT [id number] f/u appt. MARIE BISWAS 10/31 Released w/o Limitations [facility] Mark [place] Fam Med MHC Gold) [facility] [place] n([facility] Med MHC Gold) TELE CONSULT [id number] Notes Entered by: ZEE COMER 10 Nov 2013 0719 ------- ------- ------- ------- -- lost glucome ter, needs replace silvia JAMAR CASTANEDA 11/10 Medication Refill Forwarded [facility] Mark [place]o([facility] Fam Med MHC Gold) [facility] Mark isela([facility] Optometry Clinic) OUTPATIENT [id number] DIABETE S MELLITU S TYPE 2 - UNCOMPL ICATED, CONTROL LED MARTÍNEZ CHU 12/13 Released w/o Limitations [facility] Mark gallo([facility] Optomet ry Clinic) [facility] isela([facility] Med MHC Gold) TELE CONSULT [id number] Notes Entered by: Toby BOWEN 17 Jan 2014 1345 ------- ------- ------- ------- -- MARIE Olmedo 01/17 [facility] Mark gallo([facility] Bablic Med MHC Gold) [facility] Markstefany weiss([facility]) OUTPATIENT [id number] Notes Entered by: LISA HO 16 Feb 2014 0816 ------- ------- ------- ------- -- LISA BARTLETT 02/16 Released w/o Limitations [facility] Mark gallo([facility]) [facility] Mark isela([facility] Med MHC Gold) OUTPATIENT [id number] F/U DIABETI C AND MARIE ADAMS 02/19 Released w/o Limitations [facility] Mark gallo([facility] Bablic Med MHC Gold) [facility] isela([facility] Med MHC Gold) TELE CONSULT [id number] Notes Entered by: CAROLYN CASTANEDA 05 Mar 2014 1348 ------- ------- ------- ------- -- Urology JAMAR Correia 03/05 Referred for Appointment [facility] Mark gallo([facility] Fam Med MHC Gold) [facility] isela([facility] Med MHC Gold) TELE CONSULT [id number] Notes Entered by: MAREN CHAPA 05 Mar 2014 1508 ------- ------- ------- ------- -- Network Results - Radiolo gy 03/03/14 TRUE MARIE 03/05 [facility] Mark gallo([facility] Fam Med MHC Gold) [facility] Bats[facility]va weiss([facility] Med MHC Blue) TELE CONSULT [id number] Notes Entered by: VERONIKA NOYOLA 06 Mar 2014 0952 ------- ------- ------- ------- -- Network Results : Urology 03/05/14 KIRKKURTRACHNAMARIE 03/06 [facility] Mark sabino([facility] Fam Med MHC Blue) [facility]va weiss([facility] Med MHC Gold) TELE CONSULT [id number] Notes Entered by: SELENA FRANCO 08 Mar 2014 1446 ------- ------- ------- ------- -- Network Results - [facility] 03/03/14 TRUEMARIE 03/08 [facility] Mark gallo([facility] Fam Med MHC Gold) [facility] Markstefany weiss([facility] Med MHC Gold) TELE CONSULT [id number] Notes Entered by: SELENA FRANCO 13 Mar 2014 1606 ------- ------- ------- ------- -- Network Results - [facility] 03/03/14 TRUEMARIE 03/13 [facility] Mark gallo([facility] Fam Med MHC Gold) [facility] weiss([facility] Dermatolo gy Clinic) OUTPATIENT [id number] SKIN NEOPLAS M PADMINIA IN FREDRICK LEE 03/23 Released w/o Limitations [facility] Mark sabino([facility] Dermato logy Clinic) [facility] weiss([facility] Dermatolo gy Clinic) OUTPATIENT [id number] EXCISIO N, LEFT MALAR CHEEK@1 400. FREDRICK WATKINS 04/06 Released w/o Limitations [facility] Mark gallo([facility] Dermato logy Clinic) [facility] weiss([facility] Dermatolo [facility] Clinic) OUTPATIENT [id number] SUTURE REMOVAL FREDRICK WATKINS 04/12 Released w/o Limitations [facility] Mark sabino([facility] Dermato logy Clinic) [facility] weiss([facility] Fam Med MHC Blue) TELE CONSULT [id number] Notes Entered by: VERONIKA NOYOLA 16 Apr 2014 1406 ------- ------- ------- ------- -- Network Results : Urology 4 MARIE BISWAS 04/16 [facility] Mark sabino([facility] Fam Med MHC Blue) [facility] weiss([facility] Fam Med MHC Gold) OUTPATIENT [id number] *P- f/u MARIE BISWAS 08/01 Released w/o Limitations [facility] Mark sabino([facility] Fam Med MHC Gold) [facility] weiss([facility] Dermatolo gy Clinic) OUTPATIENT [id number] *P- f/u FREDRICK WATKINS 08/08 Released w/o Limitations [facility] Mark gallo([facility] Dermato logy Clinic) [facility] weiss([facility] Dermatolo [facility] Clinic) OUTPATIENT [id number] punch bx, lt nasal dorsum & pulse dye, lt malar cheek @1400 FREDRICK WATKINS 10/02 Released w/o Limitations [facility] Mark sabino([facility] Dermato logy Clinic) [facility] weiss([facility] Fam Med MHC Gold) OUTPATIENT [id number] F/U HIGH BLOOD PREES, AND DIABETI C MARIE BISWAS 11/09 Released w/o Limitations [facility] Mark sabino([facility] Fam Med MHC Gold) [facility] weiss([facility] Optometry Clinic) OUTPATIENT [id number] DIABETE S MELLITU S TYPE 2 - UNCOMPL ICATED, CONTROL LED MARTÍNEZ CHU 12/20 Released w/o Limitations [facility] Mark gallo([facility] Optomet Clinic) [facility] [place] n([facility]) OUTPATIENT [id number] Notes Entered by: JANEE SINGH 01 Jan 2015 1205 ------- ------- ------- ------- -- ppd JANEE SINGH 01/01 Released w/o Limitations [facility] Mark gallo([facility] Communi [facility]) [facility] n([facility] Fam Med MHC Gold) OUTPATIENT [id number] 3 month diabete s check up MARIE BISWAS 02/13 Released w/o Limitations [facility] Mark gallo([facility] Fam Med MHC Gold) [facility] n([facility] Fam Med MHC Gold) TELE CONSULT [id number] Notes Entered by: BETTY BERMUDEZ 15 Feb 2015 0823 ------- ------- ------- ------- -- CT CHEST MARIE BISWAS 02/15 [facility] Mark gallo([facility] Fam Med MHC Gold) [facility] Mark isela([facility] Fam Med MHC Gold) TELE CONSULT [id number] Notes Entered by: NARESH URBINA 25 Feb 2015 1403 ------- ------- ------- ------- -- NAL JAMAR Correia 02/25 Medication Refill Forwarded [facility] Mrak gallo([facility] Fam Med MHC Gold) [facility] isela([facility] Fam Med MHC Gold) TELE CONSULT [id number] Notes Entered by: Toby BOWEN 13 Mar 2015 1425 ------- ------- ------- ------- -- left knee pain MARIE BISWAS 03/13 [facility] Mark [place]o([facility] Fam Med MHC Gold) [facility] n([facility] Fam Med [facility] Gold) TELE CONSULT [id number] Notes Entered by: ELIZABETH MONTOYA 18 Mar 2015 0825 ------- ------- ------- ------- -- Network Results - Podiatr y 12/31/14 MARIE BISWAS 03/18 [facility] [place]o([facility] Fam Med MHC Gold) [facility] n([facility] Fam Med [facility] Gold) OUTPATIENT [id number] Change in B/P medicat ion F/U Appt. MARIE BISWAS 03/22 Released w/o Limitations [facility] Mark [place]o([facility] Fam Med MHC Gold) [facility] isela([facility] Fam Med [facility] Gold) TELE CONSULT [id number] Notes Entered by: ELIZABETH MONTOYA 26 Mar 2015 1535 ------- ------- ------- ------- -- Network Results - Pulmona ry 02/20/15 and 03/06/15 MARIE BISWAS 03/26 [facility] Mark [place]o([facility] Fam Med MHC Gold) [facility] Mark isela([facility] Fam Med [facility] Gold) TELE CONSULT [id number] Notes Entered by: MIQUEL GUTHRIE 01 Apr 2015 0911 ------- ------- ------- ------- -- Medicat ion JAMAR Ng 04/01 Other Not Elsewhere Classified [facility] Mark gallo([facility] Fam Med MHC Gold) [facility] isela([facility] Fam Med MHC Gold) OUTPATIENT [id number] POISON CECELIA MARIE BISWAS 04/04 Released w/o Limitations [facility] Mark [place]o([facility] Fam Med MHC Gold) [facility] n([facility] Fam Med MHC Gold) TELE CONSULT [id number] Notes Entered by: ELIZABETH MONTOYA 26 Apr 2015 0954 ------- ------- ------- ------- -- Network Results - Rheum and lab 04/04/15 MARIE BISWAS 04/26 [facility] Mark [place]o([facility] Fam Med MHC Gold) [facility] weiss([facility] Med MHC Gold) TELE CONSULT [id number] Notes Entered by: ELIZABETH MONTOYA 21 May 2015 1016 ------- ------- ------- ------- -- network results - rheumat ology 05/02/15 MARIE BISWAS 05/21 [facility] Mark gallo([facility] Fam Med MHC Gold) [facility] Mark isela([facility] Med MHC Gold) TELE CONSULT [id number] Notes Entered by: BETTY BERMUDEZ 18 Jun 2015 1526 ------- ------- ------- ------- -- HGBA1C 7.2 STEVE MENDENHALL 06/18 Referred for Appointment [facility] Mark [place]o([facility] Fam Med MHC Gold) [facility] Mark isela([facility] Med MHC Gold) OUTPATIENT [id number] *P f/u for diabete s and renew meds. MARIE BISWAS 06/19 Released w/o Limitations [facility] Mark [place]o([facility] Fam Med MHC Gold) [facility] weiss([facility] Nutrition Clinic) OUTPATIENT [id number] Obesity , unspeci fied LUNDBERG AMBER Justo 06/27 Released w/o Limitations [facility] Mark [place]o([facility] Nutriti on Clinic) [facility] Mark isela([facility] Med MHC Gold) TELE CONSULT [id number] Notes Entered by: PHYLLIS DYE 26 Jul 2015 1003 ------- ------- ------- ------- -- JOSE MARIA Soler 07/26 Referred for Appointment [facility] Mark [place]o([facility] Fam Med MHC Gold) [facility] isela([facility] Med MHC Gold) TELE CONSULT [id number] Notes Entered by: CAROLYN CASTANEDA 12 Aug 2015 0758 ------- ------- ------- ------- -- JAMAR Painter 08/11 Referred for Appointment [facility] Mark gallo([facility] Fam Med MHC Gold) [facility] weiss([facility] Bablic Med MHC Gold) TELE CONSULT [id number] Notes Entered by: MAREN CHAPA 13 Aug 2015 0844 ------- ------- ------- ------- -- Network Results - Diaz alcazar 08/10/15 MARIE BISWAS 08/12 [facility] [place] Fam Med MHC Gold) [facility] weiss([facility] Bablic Med MHC Gold) TELE CONSULT [id number] Notes Entered by: NARESH URBINA 13 Aug 2015 1115 ------- ------- ------- ------- -- NARESH Crump 08/12 Immediate Referral [facility] Mark [facility]o([facility] Fam Med MHC Gold) [facility] weiss([facility] Bablic Med MHC Gold) TELE CONSULT [id number] Notes Entered by: CAROLYN CASTANEDA 15 Aug 2015 0845 ------- ------- ------- ------- -- Medicat ion Concern JAMAR CASTANEDA 08/14 Other Not Elsewhere Classified [facility] Mark gallo([facility] Fam Med MHC Gold) [facility] weiss([facility] Bablic Med MHC Gold) TELE CONSULT [id number] Notes Entered by: CAROLYN CASTANEDA 21 Aug 2015 1108 ------- ------- ------- ------- -- MARIE Gonzalez 08/20 [facility] Mark [facility] Fam Med MHC Gold) [facility] Mark n([facility] Bablic Med MHC Gold) TELE CONSULT [id number] Notes Entered by: Toby BOWEN 26 Aug 2015 0957 ------- ------- ------- ------- -- FOLLOW UP ER VISIT CALL STEVE OLVERA 08/25 Referred for Appointment [facility] Mark [facility]o([facility] Bablic Med MHC Gold) [facility] Markstefany weiss([facility] Med MHC Gold) TELE CONSULT [id number] Notes Entered by: BRITTNEY TALBOT AL L 27 Aug 2015 1228 ------- ------- ------- ------- -- Network Results -Emerge ncy 08/20/ MARIE BISWAS 08/26 [facility] Bablic Med MHC Gold) [facility] weiss([facility] Med MHC Gold) TELE CONSULT [id number] Notes Entered by: MAREN CHAPA 13 Sep 2015 1012 ------- ------- ------- ------- -- Network Results - Orthope dic 5 MARIE BISWSA 09/12 [facility] Bablic Med MHC Gold) [facility] Markstefany weiss([facility] Med MHC Gold) OUTPATIENT [id number] Diabete s check up and med refill MARIE BISWAS 09/19 Released w/o Limitations [facility] [facility] Bablic Med MHC Gold) [facility] Markstefany weiss([facility]) OUTPATIENT [id number] concern ing lesions on face and forearm . FREDRICK WATKINS 10/02 Released w/o Limitations [facility] Mark gallo([facility] Dermato logy Clinic) [facility] Markstefany weiss([facility] Med MHC Gold) TELE CONSULT [id number] Notes Entered by: BRITTNEY TALBOT AL L 06 Dec 2015 0920 ------- ------- ------- ------- -- Network Results -Neurol ogy 08/13/15 , 08/19/15 , 09/17/15 MARIE BISWAS 12/05 [facility] Mark gallo([facility] Fam Med MHC Gold) [facility] Batsheva isela([facility] Med MHC Gold) OUTPATIENT [id number] F/U DIABETI C AND MEDS MARIE BISWAS 12/23 Released w/o Limitations [facility] Mark gallo([facility] Fam Med MHC Gold) [facility] Batsheva isela([facility] Med MHC Gold) TELE CONSULT [id number] Notes Entered by: BOB MCGREGOR 31 Dec 2015 0752 ------- ------- ------- ------- -- Medicat ion STEVE Miranda 12/30 Referred for Appointment [facility] Mark gallo([facility] Fam Med MHC Gold) [facility] Batsheva isela([facility] Med MHC Gold) TELE CONSULT [id number] Notes Entered by: Toby BOWEN 05 Feb 2016 0936 ------- ------- ------- ------- -- CT CHEST STEVE OLVERA 02/04 Referred for Appointment [facility] Mark gallo([facility] Med MHC Gold) [facility] Mark isela([facility] Med MHC Gold) OUTPATIENT [id number] disable mayank garcia MARIE BISWAS 02/10 Released w/o Limitations [facility] Mark gallo([facility] Med MHC Gold) [facility] Mark isela([facility] Med MHC Gold) TELE CONSULT [id number] Notes Entered by: BETTY BERMUDEZ 12 Feb 2016 0750 ------- ------- ------- ------- -- CT CHEST STEVE MENDENHALL 02/11 Referred for Appointment [facility] Mark gallo([facility] Fam Med MHC Gold) [facility] Batsheva isela([facility] Med MHC Gold) OUTPATIENT [id number] *P-diab etic checkup /Med. refills MARIE BISWAS 04/01 Released w/o Limitations [facility] Mark gallo([facility] Fam Med MHC Gold) [facility] Mark isela([facility] Med MHC Gold) TELE CONSULT [id number] Notes Entered by: BETTY BERMUDEZ 02 Jul 2016 1039 ------- ------- ------- ------- -- HGBA1C 7 STEVE MENDENHALL Moshe 07/02 Referred for Appointment [facility] Mark gallo([facility] Fam Med MHC Gold) [facility] Med MHC Gold) OUTPATIENT [id number] f/u A1c per MARIE Underwood 07/03 Released w/o Limitations [facility] Mark gallo([facility] Fam Med MHC Gold) [facility] Nutrition Clinic) OUTPATIENT [id number] Other synovit is and tenosyn ovitis, left hand AUGUSTINE ARMSTRONG 07/13 Released w/o Limitations [facility] Mark gallo([facility] Nutriti on Clinic) [facility] Med MHC Gold) TELE CONSULT [id number] Notes Entered by: PHYLLIS DYE 23 Jul 2016 0830 ------- ------- ------- ------- -- ReferSTEVE Ibarra 07/23 Referred for Appointment [facility] Mark gallo([facility] Fam Med MHC Gold) [facility] Mark isela([facility] Med MHC Gold) TELE CONSULT [id number] Notes Entered by: Toby BOWEN 28 Jul 2016 1000 ------- ------- ------- ------- -- CT CHEST STEVE OLVERA 07/28 Referred for Appointment [facility] Mark gallo([facility] Fam Med MHC Gold) [facility] Med MHC Gold) TELE CONSULT [id number] Notes Entered by: BETTY BERMUDEZ 12 Aug 2016 0657 ------- ------- ------- ------- -- CT CHEST STEVE OLVERA 08/12 Referred for Appointment [facility] Mark sabino([facility] Fam Med MHC Gold) [facility] Markstefany weiss([facility] Med MHC Gold) OUTPATIENT [id number] possibl e kidney stone TRUEMARIE 10/06 Released w/o Limitations [facility] Mark sabino([facility] Fam Med MHC Gold) [facility] Markstefany weiss([facility] Med MHC Gold) TELE CONSULT [id number] Notes Entered by: BETTY BERMUDEZ 06 Oct 2016 1216 ------- ------- ------- ------- -- LABWORK /CT SCAN MARIE BISWAS 10/06 [facility] Mark sabino([facility] Fam Med MHC Gold) [facility] Markstefany weiss([facility] Med MHC Gold) OUTPATIENT [id number] LORI Newberry 11/16 Released w/o Limitations [facility] Mark sabino([facility] Fam Med MHC Gold) [facility] Markstefany weiss([facility] Med Can [employer] Blue) TELE CONSULT [id number] Notes Entered by: SUSANNA GASCA 15 Dec 2016 1330 ------- ------- ------- ------- -- Service not yet rendere d for Orthope dics, Februar y 2016 LORI SHAW 12/15 [facility] Mark sabino([facility] Fam Med MHC Blue) [facility] Markstefany weiss([facility] D[facility]) OUTPATIENT [id number] Rash and other nonspec ific skin eruptio n CHRISTAL LEDESMA 01/04 Released w/o Limitations [facility] Mark gallo([facility] Dermato logy Clinic) [facility] Batsheva weiss([facility] D[facility]) OUTPATIENT [id number] punch, left cheek CHRISTAL LEDESMA 01/12 Released w/o Limitations [facility] Mark gallo([facility] Dermato logy Clinic) [facility] Fam Med MHC Gold) TELE CONSULT [id number] Notes Entered by: ROMAN JASSO 13 Jan 2017 1334 ------- ------- ------- ------- -- Network Results -gi- LORI SHAW 01/13 [facility] Mark gallo([facility] Fam Med MHC Gold) [facility] Markstefany n([facility]) OUTPATIENT [id number] suture removal CHRISTAL LEDESMA 01/20 Released w/o Limitations [facility] Mark gallo([facility] Dermato logy Clinic) [facility] Batsheva n([facility] Fam Med MHC Gold) TELE CONSULT [id number] Notes Entered by: ROMAN JASSO 2017 1341 ------- ------- ------- ------- -- Network Results -gi-04/16 LORI SHAW 02/04 [facility] Mark gallo([facility] Fam Med MHC Gold) [facility] Markstefany weiss([facility] Fam Med MHC Gold) OUTPATIENT [id number] diabete s f/u LORI SHAW 02/16 Released w/o Limitations [facility] Mark gallo([facility] Fam Med MHC Gold) [facility] Markstefany n([facility] D[facility]) OUTPATIENT [id number] PDT FACE/EA RS to come in at 0800 CHRISTAL LEDESMA 02/19 Released w/o Limitations [facility] Mark gallo([facility] Dermato logy Clinic) [facility] Markstefany weiss([facility] Nutrition Clinic) OUTPATIENT [id number] Type 2 diabete s mellitu s without complic atAUGUSTINE Bermudez 03/02 Released w/o Limitations [facility] Mark gallo([facility] Nutriti on Clinic) [facility] Markstefany n([facility] Fam Med MHC Gold) TELE CONSULT [id number] Notes Entered by: ELICIA OROZCO 11 Mar 2017 1433 ------- ------- ------- ------- -- Network Results -Gastro enterol ogy 02/10/17 LORI SHAW 03/11 [facility] Mark gallo([facility] Fam Med MHC Gold) [facility] Batsheva weiss([facility] Fam Med MHC Gold) TELE CONSULT [id number] Notes Entered by: BRITTNEY TALBOT 17 Mar 2017 1058 ------- ------- ------- ------- -- Network Results -PT 7 LORI SHAW 03/17 [facility] Mark gallo([facility] Fam Med MHC Gold) [facility] OUTPATIENT [id number] 2nd PDT CHRISTAL LEDESMA 04/01 Released w/o Limitations [facility] Mark gallo([facility] Dermato logy Clinic) [facility] Batsheva weiss([facility] Fam Med MHC Gold) TELE CONSULT [id number] Notes Entered by: ELICIA OROZCO 07 Apr 2017 1124 ------- ------- ------- ------- -- Network Results -PT 7 LORI SHAW 04/07 [facility] Mark gallo([facility] Fam Med MHC Gold) [facility] Mark isela([facility] Fam Med MHC Gold) TELE CONSULT [id number] Notes Entered by: DANK GARCIA 16 Apr 2017 1326 ------- ------- ------- ------- -- Network Results - Physicjoe l Therapy 7 LORI SHAW 04/16 [facility] Mark gallo([facility] Fam Med MHC Gold) [facility] isela([facility] Med MHC Blue) TELE CONSULT [id number] Notes Entered by: SUSANNA GASCA 29 Jun 2017 1334 ------- ------- ------- ------- -- Service not yet rendere mayank for Osman, 2016 LORI SHAW 06/29 [facility] Mark gallo([facility] Fam Med MHC Blue) [facility] Markstefany n([facility] Med MHC Gold) TELE CONSULT [id number] Notes Entered by: Toby BOWEN 30 Jun 2017 1126 ------- ------- ------- ------- -- STEVE GEORGES 06/30 Referred for Appointment [facility] Mark gallo([facility] Fam Med MHC Gold) [facility] isela([facility] Med MHC Gold) OUTPATIENT [id number] F/U LORI SHAW 07/08 Released w/o Limitations [facility] Mark gallo([facility] Fam Med MHC Gold) [facility] Charlesstefany weiss([facility] D[facility]) OUTPATIENT [id number] F/U skin check CHRISTAL LEDESMA 07/09 Released w/o Limitations [facility] Mark gallo([facility] Dermato logy Clinic) [facility] n([facility] Med MHC Gold) TELE CONSULT [id number] Notes Entered by: LORI COULTER 20 Jul 2017 1611 ------- ------- ------- ------- -- Please call patient STEVE OLVERA 07/20 Released w/o Limitations [facility] Mark gallo([facility] Fam Med MHC Gold) [facility] n([facility] Med MHC Gold) TELE CONSULT [id number] Notes Entered by: MIQUEL GUTHRIE 23 Sep 2017 0918 ------- ------- ------- ------- -- Request Diabeti c STEVE Georges 09/23 Referred for Appointment [facility] Mark sabino([facility] Fam Med MHC Gold) [facility] Med MHC Gold) OUTPATIENT [id number] spreadi ng itchy rash lower legs/ I know it's posion LORI Rodriguez 09/27 Released w/o Limitations [facility] Mark gallo([facility] Med MHC Gold) [facility] Can [employer] Gold) TELE CONSULT [id number] Notes Entered by: Toby MENDENHALL 17 Nov 2018 1214 ------- ------- ------- ------- -- hedis - A1c STEVE MENDENHALL 11/17 Referred for Appointment [facility] Mark gallo([facility] Med MHC Gold) [facility] [employer] Gold) TELE CONSULT [id number] Notes Entered by: Toby MENDENHALL 07 Mar 2019 1157 ------- ------- ------- ------- -- A1c- STEVE Serrano 03/07 Released to Self Care [facility] Mark gallo([facility] Med MHC Gold) [facility] Can [employer] Gold) TELE CONSULT [id number] Notes Entered by: Toby BOWEN 08 Mar 2020 1133 ------- ------- ------- ------- -- HPILL/ STEVE PLUNKETT 03/08 Released to Self Care [facility] Mark gallo([facility] Fam Med MHC Gold) [facility] [employer] Blue) TELE CONSULT [id number] Notes Entered by: YOHANNES JENSEN 25 Mar 2020 1056 ------- ------- ------- ------- -- VIPUL ASIF 03/25 Referred for Appointment [facility] Mark gallo([facility] Med MHC Blue) [facility] Med Can [employer] Gold) TELE CONSULT [id number] Notes Entered by: Toby BOWEN 03 Sep 2021 0931 ------- ------- ------- ------- -- STEVE VAZQUEZ 09/03 Other Not Elsewhere Classified [facility] Mark gallo([facility] Med MHC Gold) [facility] Batsheva weiss([facility] Med MHC Gold) TELE CONSULT [id number] Notes Entered by: Toby BOWEN 14 Nov 2021 0910 ------- ------- ------- ------- -- STEVE VAZQUEZ 11/14 Other Not Elsewhere Classified [facility] Mark gallo([facility] MHC Gold) Procedures Combined list of: 1) Procedures from Department of Veterans Affairs facilities going back up to thelast 18 months, not all VA non-surgical procedures are included; 2) All procedures from the Department of Defense facilities. Procedure Procedure Type Code Date Perfomer Comments Sourc e DESTRUCT (EG, LASER SURGERY, ELECTROSURGERY, CRYOSURGERY, CHEMOSURGERY, [...] NUTRITION THERAPY; INITIAL ASSESSMENT AND INTERVENTION, INDIVIDUAL, [id number] WITH THE PATIENT, EACH 15 MINUTES 2016 DoD PHOTODYNAMIC THERAPY BY EXTERNAL APPLICATION OF LIGHT TO DESTROY PREMALIGNANT LESIONS OF THE SKIN AND ADJACENT MUCOSA WITH APPLICATION AND ILLUMINATION/ACTIVA TION OF PHOTOSENSITIVE DRUG(S), PER DAY 2016 DoD BIOPSY OF SKIN, SUBCUTANEOUS TISSUE AND/OR MUCOUS MEMBRANE (INCLUDING SIMPLE CLOSURE), UNLESS OTHERWISE LISTED; SINGLE LESION 2016 DoD MEDICAL NUTRITION THERAPY; INITIAL ASSESSMENT AND INTERVENTION, INDIVIDUAL, [id number] WITH THE PATIENT, EACH 15 MINUTES 2016 DoD DESTRUCTION (EG, LASER SURGERY, ELECTROSURGERY, CRYOSURGERY, CHEMOSURGERY, SURGICAL CURETTEMENT), PREMALIGNANT LESIONS (EG, ACTINIC KERATOSES); FIRST LESION 2015 DoD MEDICAL NUTRITION THERAPY; GROUP (2 OR MORE INDIVIDUAL(S)), EACH 30 MINUTES 2015 [facility] SKIN TEST; TUBERCULOSIS, INTRADERMAL 2014 [facility] DETERMINATION OF REFRACTIVE STATE 2014 [facility] BIOPSY OF SKIN, SUBCUTANEOUS TISSUE AND/OR MUCOUS MEMBRANE (INCLUDING SIMPLE CLOSURE), UNLESS OTHERWISE LISTED; SINGLE LESION 2014 DoD DESTRUCT (EG, LASER SURGERY, ELECTROSURGERY, CRYOSURGERY, CHEMOSURGERY, SURGICAL CURETTEMENT), PREMALIGNANT LESIONS (EG, ACTINIC KERATOSES); 2ND THRU 14 LESIONS, EA (LIST SEP ADDITION CD, 1ST LESION) 2013 [facility] REPAIR, COMPLEX, FOREHEAD, CHEEKS, CHIN, MOUTH, NECK, AXILLAE, GENITALIA, HANDS AND/OR FEET; 2.6 CM TO 7.5 CM 2013 [facility] BIOPSY OF SKIN, SUBCUTANEOUS TISSUE AND/OR MUCOUS MEMBRANE (INCLUDING SIMPLE CLOSURE), UNLESS OTHERWISE LISTED; SINGLE LESION 2013 [facility] IMMUNIZATION ADMINISTRATION (INCLUDES PERCUTANEOUS, INTRADERMAL, SUBCUTANEOUS, OR INTRAMUSCULAR INJECTIONS); 1 VACCINE (SINGLE OR COMBINATION VACCINE/TOXOID) 2013 [facility] OPHTHALMOLOGICAL SERVICES: MEDICAL EXAMINATION AND EVALUATION WITH INITIATION OF DIAGNOSTIC AND TREATMENT PROGRAM; COMPREHENSIVE, NEW PATIENT, 1 OR MORE VISITS 2013 DoD IMMUNIZATION ADMINISTRATION (INCLUDES PERCUTANEOUS, INTRADERMAL, SUBCUTANEOUS, OR INTRAMUSCULAR INJECTIONS); 1 VACCINE (SINGLE OR COMBINATION VACCINE/TOXOID) 2013 [facility] IMMUNIZATION ADMINISTRATION (INCLUDES PERCUTANEOUS, INTRADERMAL, SUBCUTANEOUS, OR INTRAMUSCULAR INJECTIONS); 1 VACCINE (SINGLE OR COMBINATION VACCINE/TOXOID) 2013 [facility] TETANUS, DIPHTHERIA TOXOIDS AND ACELLULAR PERTUSSIS VACCINE (TDAP), WHEN ADMINISTERED TO INDIVIDUALS 7 YEARS OR OLDER, FOR INTRAMUSCULAR USE 2012 [facility] COORDINATED CARE FEE, MAINTENANCE RATE 2012 DoD DESTRUCT (EG, LASER SURGERY, ELECTROSURGERY, CRYOSURGERY, CHEMOSURGERY, SURGICAL CURETTEMENT), PREMALIGNANT LESIONS (EG, ACTINIC KERATOSES); 2ND THRU 14 LESIONS, EA (LIST SEP ADDITION CD, 1ST LESION) 2011 [facility] ELECTROCARDIOGRAM, ROUTINE ECG WITH AT LEAST [...] 12 LEADS; WITH INTERPRETATION AND REPORT 2004 DoD FITTING OF SPECTACLES, EXCEPT FOR APHAKIA; MONOFOCAL 2004 DoD INJECTION, TRIAMCINOLONE ACETONIDE, NOT OTHERWISE SPECIFIED, 10 MG 2002 DoD NONINVASIVE EAR OR PULSE OXIMETRY FOR OXYGEN SATURATION; SINGLE DETERMINATION 2001 DoD DETERMINATION OF REFRACTIVE STATE 2000 [facility] Dermatological Surgery Electrode & Curettage Second Lesion Dermatological Surgery Electrodess & Curettage Second Lesion 54205 2017 CHRISTAL LEDESMA DoD Destruction Of Premalignant Lesion By Any Method One Lesion Destruction Of Premalignant Lesion By Any Method One Lesion 37920 2017 CHRISTAL LEDESMA DoD Photodynamic Therapy By External Light 2016 CHRISTAL LEDESMA [facility] Medical Nutrition Therapy Initial A e ment And Intervention Each 15 Minutes Medical Nutrition Therapy Initial Assessment And Intervention Each 15 Minutes 57013 2016 AUGUSTINE ARMSTRONG [facility] Photodynamic Therapy By External Light 2016 CHRISTAL LEDESMA [facility] Biopsy Skin Biopsy Skin 71764 2016 CHRISTAL LEDESMA Medical Nutrition Therapy Initial A e ment And Intervention Each 15 Minutes Medical Nutrition Therapy Initial Assessment And Intervention Each 15 Minutes 03740 2016 NATHANIEL AUGUSTINEErlinda Cowan Destruction Of Premalignant Lesion By Any Method One Lesion Destruction Of Premalignant Lesion By Any Method One Lesion 31199 2015 FREDRICK WATKINS Medical Nutrition Therapy Group (2 or More Individuals) Each 30 Minutes Medical Nutrition Therapy Group (2 or More Individuals) Each 30 Minutes 95189 2015 AMBER LUNDBERG [facility] Skin Test Anergy Tuberculin Intradermal Skin Test Anergy Tuberculin Intradermal 93393 2014 JANEE SINGH IPPD; Series #: 1; .1 mL; ID; Left Arm; Mfg: Meghanrod; Lot: [id number]. [facility] Determination Of Refractive State Determination Of Refractive State [id number] MARTÍNEZ CHU Ophthalmological Prior Patient Start Comprehensive Care Ophthalmological Prior Patient Start Comprehensive Care 82120 2014 MARTÍNEZ CHU [facility] Biopsy Skin Biopsy Skin 99105 2014 FREDRICK WATKINS Integumentary Procedures (Therapeutic) Integumentary Procedures (Therapeutic) 38796 2014 FREDRICK WATKINS Destruct Of Premalignant Lesion By Any Method 2nd Through 14 Destruct Of Premalignant Lesion By Any Method 2nd Through 14 42960 2013 FREDRICK WATKINS Destruction Of Premalignant Lesion By Any Method One Lesion Destruction Of Premalignant Lesion By Any Method One Lesion 39054 2013 FREDRICK WATKINS Postoperative Visit, Without Charge Postoperative Visit, Without Charge 04181 2013 FREDRICK WATKINS Complex Repair Of Wound Cheek 2.6 to 7.5 cm Complex Repair Of Wound Cheek 2.6 to 7.5 cm 70502 2013 FREDRICK WATKINS Excision Of Lesion Face Malignant 1.1 to 2cm Excision Of Lesion Face Malignant 1.1 to 2cm 88232 2013 FREDRICK WATKINS Biopsy Skin Biopsy Skin 34996 2013 FREDRICK WATKINS DoD Immunization Administration By Injection, One Vaccine Immunization Administration By Injection, One Vaccine 07576 2013 LISA HO DoD Hepatitis A And Hepatitis B (Intramuscular Use) Adult Dosage Hepatitis A And Hepatitis B (Intramuscular Use) Adult Dosage 68416 2013 LISA HO Hep A - Hep B (Twinrix); Series #: 3; 1.0 mL; IM; Right Arm; Mfg: ReachDynamics ; Lot: [id number]; VIS given (Syeda: 03/24/11; 07/12/11). [facility] Ophthalmological New Patient Start Comprehensive Care Ophthalmological New Patient Start Comprehensive Care 32761 2013 MARTÍNEZ CHU DoD Immunization Administration By Injection, One Vaccine Immunization Administration By Injection, One Vaccine 87778 2013 CHAD PARK [facility] Hepatitis A And Hepatitis B (Intramuscular Use) Adult Dosage Hepatitis A And Hepatitis B (Intramuscular Use) Adult Dosage 16571 2013 CHAD PARK Hep A - Hep B (Twinrix); Series #: 2; 1.0 mL; IM; Right Arm; Mfg: [employer]ach[employer] ; Lot: [id number]; VIS given (Syeda: 03/24/11; 07/12/11). DoD Immunization Administration By Injection, One Vaccine Immunization Administration By Injection, One Vaccine [id number] SUZETTE OROSCO [facility] Hepatitis A And Hepatitis B (Intramuscular Use) Adult Dosage Hepatitis A And Hepatitis B (Intramuscular Use) Adult Dosage 73204 2013 SUZETTE OROSOC Hep A - Hep B (Twinrix); Series #: 1; 1.0 mL; IM; Right Arm; Mfg: ReachD[employer] ; Lot: [id number]; VIS given (Syeda: 03/24/11; 07/12/11). DoD Immunization Administration By Injection, One Vaccine Immunization Administration By Injection, One Vaccine [id number] JANEE SINGH DoD Tdap Vaccine Tdap Vaccine 73516 2012 JANEE SINGH Tdap; Series #: 1; .5 mL; IM; Right Arm; Mfg: Sanofi Pasteur; Lot: [id number]; VIS given (Syeda: 10/16/12). [facility] Coordinated care fee, maintenance rate 10/21/ 2013 NARESH EDEN [facility] Case Management, each 15 minutes 2012 NARESH EDEN Destruct Of Premalignant Lesion By Any Method 2nd Through 14 2011 FREDRICK WATKINS Destruction Of Premalignant Lesion By Any Method One Lesion 2011 FREDRICK WATKINS ECG 12-Lead With Interpretation And Report ECG 12-Lead With Interpretation And Report 61809 2010 MARIE BISWAS Destruct Of Premalignant Lesion By Any Method 2nd Through 14 2010 FREDRICK WATKINS Destruction Of Premalignant Lesion By Any Method One Lesion 2010 FREDRICK WATKINS Pneumococcal Polysaccharide Vaccine 23 Valent Intramuscular Pneumococcal Polysaccharide Vaccine 23 Valent Intramuscular 79335 2009 JANEE SINGH Immunization Administration By Injection, One Vaccine Immunization Administration By Injection, One Vaccine 64619 2009 JANEE SINGH Destruction Of Benign Lesion By Any Method 2009 FREDRICK WATKINS Preventive Medicine: Foot Examination Preventive Medicine: Foot Examination 2009 MARK MONET [facility] Non-Physician Phone Call To Patient/Provider Brief (5-10min) Non-Physician Phone Call To Patient/Provider Brief (5-10min) 09262 2009 IESHA MORTON [facility] Non-Physician Phone Call To Pt/Provider Intermed (11-20 min) Non-Physician Phone Call To Pt/Provider Intermed (11-20 min) 92227 2009 GABRIELLA JACOB [facility] Non-Physician Phone Call To Patient/Provider Brief (5-10min) Non-Physician Phone Call To Patient/Provider Brief (5-10min) 00585 2008 GABRIELLA JACOB Non-Physician Phone Call To Patient/Provider Brief (5-10min) Non-Physician Phone Call To Patient/Provider Brief (5-10min) 44360 2008 SCOTTIE ANAND Non-Physician Phone Call To Patient/Provider Brief (5-10min) Non-Physician Phone Call To Patient/Provider Brief (5-10min) 19190 2008 BETTE RUSSO Medical Nutrition Therapy Group (2 or More Individuals) Each 30 Minutes Medical Nutrition Therapy Group (2 or More Individuals) Each 30 Minutes 50123 2008 JACK MAC [facility] Non-Physician Phone Call To Pt/Provider Intermed (11-20 min) Non-Physician Phone Call To Pt/Provider Intermed (11-20 min) 19049 2007 BETTE RUSSO Non-Physician Phone Call To Patient/Provider Brief (5-10min) Non-Physician Phone Call To Patient/Provider Brief (5-10min) 69824 2007 BETTE RUSSO Arthrocentesis Injection Of Bursa Of Major Joint Arthrocentesis Injection Of Bursa Of Major Joint 23541 2005 BELEN ARNDT [facility] Physical Therapy Service Re-Evaluation Physical Therapy Service Re-Evaluation [id number] 2005 SAM CARRINGTON [facility] Physician Supervised Services Provision Of Special Supplies Physician Supervised Services Provision Of Special Supplies [id number] 2005 SAM CARRINGTON [facility] Physical Therapy - Unlisted Therapeutic Procedure Physical Therapy - Unlisted Therapeutic Procedure [id number] 2005 SAM CARRINGTON [facility] Physical Therapy Service Evaluation Physical Therapy Service Evaluation 79206 2005 SAM CARRINGTON [facility] Corticosteroids Injection Intraarticular Subacromial Bursa Corticosteroids Injection Intraarticular Subacromial Bursa 33104 2005 LIANG RICE [facility] Ophthalmological New Patient Start Comprehensive Care Ophthalmological New Patient Start Comprehensive Care 68865 GURPREET LUCAS [facility] Determination Of Refractive State Determination Of Refractive State 91223 GURPREET LUCAS Spectacles Services Fitting Monofocal Except For Aphakia Spectacles Services Fitting Monofocal Except For Aphakia 04638 GURPREET LUCAS [facility] No data available for this section Ambulato ry Pharmacy Social History Combined list of available smoking, tobacco, and other social history from Department of Defense and Veterans Affairs facilities. Social History Type Response Date Comment Sourc e This section is an empty social history section. DoD Assessment and Plan Combined list of future care activities from Department of Defense and Veterans Affairs facilities (e.g., assessment and plan notes, appointments, orders, and referrals). Additional future care activities may be listed in the Plan of Care section. Result Assessment and Plan Date Source Assessment and Plan No data available for this section 01/14/2024 Ambulatory Pharmacy Functional Status Combined list of recent functional and cognitive assessments recorded at Department of Defense and Veterans Affairs (VA).VA Functional [place] Measurement (FIM) Scale: 1 = Total Assistance (Subject = 0% +), 2 = Maximal Assistance (Subject = 25% +), 3 = Moderate Assistance (Subject = 50% +), 4 = Minimal Assistance (Subject = 75% +), 5 = Supervision, 6 = Modified [place] (Device), 7 = Complete [place] (Timely, Safely). Assessment Date/Time Source Assessment Type Assessment Skill Assessment Score Assessment Details No data available for this section
--- OUTSIDE RECORDS SUMMARY | 2024-01-13 21:13 | XMS_ITS | Encounter Summary ---
Author Organization Jose Alejandro [facility] Address [address] [place] [address] Care Team Providers Care Retail Sales Assistant Name Role Phone Cheo Santoyo Primary Care Provider [phone] Encounter Details Date Type Department Care Team (Late st Contact Info) Description 11/01/2023 Home Visit [facility] Maurice Panchal MD [address] [address] Social History Tobacco Use Types Packs/Day Years Used Date Smoking Tobacco: Former Cigarettes 1 27 0 05/31/1969 - 05/31/1996 Smokeless Tobacco: Never Alcohol Use Standard Drinks/Week Comments Yes 7 (1 standard drink = 0.6 oz pur e alcohol) [facility] Utilities Answer Date Recorded In the past 12 months has [employer], gas, oil, or water [employer] threatened to shut off services in [...] Dr. [address] [place] [phone] Martell Calderon MD 2145 [facility] [address] [place] [address] TREMORS/ MEDICARE, FOR LIFE 03/28/2024 8:30 AM EDT Office Visit Primary Care - [address] [address] Cheo Santoyo, DO 1112 [place] [phone] AWV 04/06/2024 9:45 AM EST Lab [place] [facility] - [facility] [address] [facility] [address] [place] [address] CBCMP,CEA,FEST 04/06/2024 10:15 AM EST Office Visit [place] [facility] - [facility] [address] [facility] [address] [place] [address] Georgi Butterfield MD [address] [place] [address] 6 MTH FU W/LABS, REV SCAN 04/13/2024 9:30 AM EST Office Visit Surgical Oncology - [facility] [address] [facility] [address] [place] [address] Delvis Cheek MD 125 [facility] [address] [place] [address] 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 documented as of this encounter Visit Diagnoses Not on filedocumented in this encounter Additional Health Concerns Assessment Noted Time A fall risk assessment has been complete d for the patient 07/06/2023 9:36 AM EST documented as of this encounter Care Teams Retail Sales Assistant Relationship Specialty Start Date End Date Cheo Santoyo DO [address] [place] [phone] PCP - General Family Medicine 07/06/23 documented as of this encounter
--- OUTSIDE RECORDS SUMMARY | 2024-01-13 21:13 | XMS_ITS | Encounter Summary ---
Author Organization Jose Alejandro Pantoja [facility] Address [address] [place] [address] Care Team Providers Care Penology Professor Name Role Phone Cheo Santoyo DO Primary Care Provider [phone] Reason for Visit * Reason Onset Date Comments new pharm 12/14/2023 Encounter Details Date Type Department Care Team ([facility] st Contact Info) Description 12/14/2023 Telephone Primary Care - [address] [address] Cheo Santoyo DO [address] [place] [address] new pharm Social History Tobacco Use Types Packs/Day Years Used Date Smoking Tobacco: Former Cigarettes 1 27 0 05/31/1969 - 05/31/1996 Smokeless Tobacco: Never Alcohol Use Standard Drinks/Week Comments Yes 4 (1 standard drink = 0.6 oz pur e alcohol) [facility] Utilities Answer Date Recorded In the past 12 months has [employer], gas, oil, or water [employer] threatened to shut off services in your [...] place to sleep or slept in a mcfp (including now)? No 10/19/2023 Food Insecurity Answer [...] Neurology - [facility] [address] [facility] [address] [place] [address] Martell Calderon MD 2144 [facility] [address] [place] [address] TREMORS/ MEDICARE, FOR LIFE 03/28/2024 8:30 AM EDT Office Visit Primary Care - [address] [phone] Cheo Santoyo DO [address] [place] [address] AWV 04/06/2024 9:45 AM EST Lab [place] [facility] - [facility] 2084 [facility] [address] [place] [address] CBCMP,CEA,FEST 04/06/2024 10:15 AM EST Office Visit [place] [facility] - [facility] 2084 [facility] [address] [place] [address] Georgi Butterfield MD [address] [place] [address] 6 MTH FU W/LABS, REV SCAN 04/13/2024 9:30 AM EST Office Visit Surgical Oncology - [facility] 2084 [facility] [address] [place] [address] Delvis Cheek MD 125 [facility] [address] [place] [address] 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
--- OUTSIDE RECORDS SUMMARY | 2024-01-13 21:13 | XMS_ITS | Encounter Summary ---
Author Organization Jose Alejandro Ray[facility]olinnea [facility] Address [address] [place] [address] Care Team Providers Care Sample Checker Name Role Phone Cheo Santoyo Primary Care Provider [phone] Reason for Visit * Reason Comments Post-Op Check S/P Right LIZZ DOS: Encounter Details Date Type Department Care Team (Late st Contact Info) Description 11/16/2023 11:30 AM EDT Office Visit Orthopaedics- Les Valencia [address] [employer] [facility] 100 [place] [phone] Faizan Bautista, BURT [address] [email or web address] 301 [place] [address] Aftercare following right hip joint replacement surgery (Primary Dx) Social History Tobacco Use Types Packs/Day Years Used Date Smoking Tobacco: Former Cigarettes 1 27 0 05/31/1969 - 05/31/1996 Smokeless Tobacco: Never Alcohol Use Standard Drinks/Week Comments Yes 4 (1 standard drink = 0.6 oz pur e alcohol) [facility] Utilities Answer Date Recorded In the past 12 months has [employer], gas, oil, or water company threatened to [...] office today on 11/16/2023. X-rays revealed well-positioned [place] hip arthroplasty components without issues or concerns. [...] Neurology - [facility] [address] [facility] [address] [place] [address] Martell Calderon MD 2144 [facility] [address] [place] [address] TREMORS/ MEDICARE, FOR LIFE 03/28/2024 8:30 AM EDT Office Visit Primary Care - [address] [address] [place] [address] [place] [address] AWV 04/06/2024 9:45 AM EST Lab [place] [facility] - [facility] 2084 [facility] [address] [place] [address] CBCMP,CEA,FEST 04/06/2024 10:15 AM EST Office Visit [place] [facility] - [facility] 2084 [facility] [address] [place] [address] Georgi Butterfield MD [address] [place], [place] [phone] 6 MTH FU W/LABS, REV SCAN 04/13/2024 9:30 AM EST Office Visit Surgical Oncology - [facility] 3902 [facility] [address] [place] [address] Delvis Cheek MD 125 [facility] [address] [place] [address] 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
--- OUTSIDE RECORDS SUMMARY | 2024-01-13 21:13 | XMS_ITS | Encounter Summary ---
Author Organization [facility] Ale[facility] Address [address] [place] [address] Care Team Providers Care Specialty Foods Cook Name Role Phone Cheo Santoyo Moshe REYES Primary Care Provider [phone] Encounter Details Date Type Department Care Team (Late st Contact Info) Description 11/16/2023 11:05 AM EDT Ancillary Procedure Orthopaedics- Les Valencia [address] [address] Social History Tobacco Use Types Packs/Day Years Used Date Smoking Tobacco: Former Cigarettes 1 27 0 05/31/1969 - 05/31/1996 Smokeless Tobacco: Never Alcohol Use Standard Drinks/Week Comments Yes 4 (1 standard drink = 0.6 oz pur e alcohol) [facility] Utilities Answer Date Recorded In the past 12 months has [employer], gas, oil, or water company threatened [...] Dr. [address] [place] [address] Martell Calderon MD 5 [facility] [address] [place] [address] TREMORS/ MEDICARE, FOR LIFE 03/28/2024 8:30 AM EDT Office Visit Primary Care - [facility] 1112 [place] [address] Cheo Santoyo DO 1112 [place] [address] AWV 04/06/2024 9:45 AM EST Lab [place] [facility] - [facility] 2084 [facility] [facility] [address] [place] [address] CBCMP,CEA,FEST 04/06/2024 10:15 AM EST Office Visit [place] [facility] - [facility] 2084 [facility] [place] [address] [place] [address] Georgi Butterfield MD [address] [place] [address] 6 MTH FU W/LABS, REV SCAN 04/13/2024 9:30 AM EST Office Visit Surgical Oncology - [facility] 2084 [facility] [place] [address] [place] [address] Delvis Cheek MD 125 [facility] 660 [place] [address] 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 ??X-rays revealed well-positioned [place] hip arthroplasty components without issues or concerns. [...] documented as of this encounter Care Teams Specialty Foods Cook Relationship Specialty Start Date End Date Cheo Santoyo DO [address] [place] [phone] PCP - General Family Medicine 07/06/23 documented as of this encounter
--- OUTSIDE RECORDS SUMMARY | 2024-01-13 21:13 | XMS_ITS | Encounter Summary ---
Author Organization Jose Alejandro Pantoja [facility] Address [address] [place] [address] Care Team Providers Care Assistant Portfolio Manager Name Role Phone Cheo Santoyo Primary Care Provider [phone] Reason for Visit * Reason Onset Date Comments Medication Request 12/23/2023 Encounter Details Date Type Department Care Team (Late st Contact Info) Description 12/23/2023 [facility] - [facility] [address] [facility] [address] [place] [address] Georgi Butterfield MD [address] [place] [address] Medication Request Social History Tobacco Use Types Packs/Day Years Used Date Smoking Tobacco: Former Cigarettes 1 27 0 05/31/1969 - 05/31/1996 Smokeless Tobacco: Never Alcohol Use Standard Drinks/Week Comments Yes 4 (1 standard drink = 0.6 oz pur e alcohol) [facility] Utilities Answer Date Recorded In the past 12 months has [employer], gas, oil, or water [employer] threatened to shut off services in your [...] AM EDT Office Visit Neurology - [facility] 2144 [facility] [address] [place] [address] Martell Calderon MD 2144 [facility] [address] [place] [address] TREMORS/ MEDICARE, FOR LIFE 03/28/2024 8:30 AM EDT Office Visit Primary Care - [address] [address] Cheo Santoyo [address] [address] AWV 04/06/2024 9:45 AM EST Lab [place] [facility] - [facility] 2084 [facility] [address] [place] [address] CBCMP,CEA,FEST 04/06/2024 10:15 AM EST Office Visit [place] [facility] - [facility] 2084 [facility] [address] [place] [address] Georgi Butterfield MD 3510 [facility] 17N [facility] 225 [place] [address] 6 MTH FU W/LABS, REV SCAN 04/13/2024 9:30 AM EST Office Visit Surgical Oncology - [facility] 2084 [facility] [address] [place] [address] Delvis Cheek MD 125 [facility] 660 [place] [address] 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 100 [place] [address] Karly Bautista, BURT 180 [facility] 301 [place] [address] annual visit from date of surgery May/Jul 2024 for bilateral TKA and right LIZZ with Karly. documented as of this encounter Visit Diagnoses Not on filedocumented in this encounter Additional Health Concerns Assessment Noted Time A fall risk assessment has been complete d for the patient 07/06/2023 9:36 AM EST documented as of this encounter Care Teams Assistant Portfolio Manager Relationship Specialty Start Date End Date Cheo Santoyo DO [address] [place] [phone] PCP - General Family Medicine 07/06/23 documented as of this encounter
--- OUTSIDE RECORDS SUMMARY | 2024-01-13 21:13 | XMS_ITS | Encounter Summary ---
Author Organization Jose Alejandro Panotja [facility] Address [address] [place] [address] Care Team Providers Care Soil Analyst Name Role Phone Cheo Santoyo DO Primary Care Provider [phone] Reason for Visit * Reason Comments New Med Request Encounter Details Date Type Department Care Team (Late st Contact Info) Description 12/03/2023 Refill Primary Care - [address] [address] Cheo Santoyo DO [address] [place] [phone] New Med Request Social History Tobacco Use Types Packs/Day Years Used Date Smoking Tobacco: Former Cigarettes 1 27 0 05/31/1969 - 05/31/1996 Smokeless Tobacco: Never Alcohol Use Standard Drinks/Week Comments Yes 4 (1 standard drink = 0.6 oz pur e alcohol) [facility] Utilities Answer Date Recorded In the past 12 months has [employer], gas, oil, or water [employer] threatened to shut off services in your [...] place to sleep or slept in a longterm (including now)? No 10/19/2023 Food Insecurity Answer [...] Neurology - [facility] 2[address] [facility] [address] [place] [address] Martell Calderon MD 2144 [facility] [address] [place] [address] TREMORS/ MEDICARE, FOR LIFE 03/28/2024 8:30 AM EDT Office Visit Primary Care - [address] [phone] Cheo Santoyo [address] [place] [address] AWV 04/06/2024 9:45 AM EST Lab [place] [facility] - [facility] 2084 [facility] [address] [place] [address] CBCMP,CEA,FEST 04/06/2024 10:15 AM EST Office Visit [place] [facility] - [facility] 2084 [facility] [address] [place] [address] Georgi Butterfield MD 0310 [facility] [address] [place], [place] [phone] 6 MTH FU W/LABS, REV SCAN 04/13/2024 9:30 AM EST Office Visit Surgical Oncology - [facility] 2084 [facility] [address] [place] [address] Delvis Cheek MD 125 [facility] 660 [place] [address] 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 documented as of this encounter Visit Diagnoses Not on filedocumented in this encounter Additional Health Concerns Assessment Noted Time A fall risk assessment has been complete d for the patient 07/06/2023 9:36 AM EST documented as of this encounter Care Teams Soil Analyst Relationship Specialty Start Date End Date Cheo Santoyo DO [address] [place] [phone] PCP - General Family Medicine 07/06/23 documented as of this encounter
--- OUTSIDE RECORDS SUMMARY | 2024-01-13 21:13 | XMS_ITS | Encounter Summary ---
Author Organization Jose Alejandro Pantoja [facility] Address [address] [place] [address] Care Team Providers Care Postal Support Employee Name Role Phone Cheo Santoyo DO Primary Care Provider [phone] Encounter Details Date Type Department Care Team ([facility] st Contact Info) Description 11/16/2023 Telephone Primary Care - [address] [address] Cheo Santoyo DO [address] [place] [address] Social History Tobacco Use Types Packs/Day Years Used Date Smoking Tobacco: Former Cigarettes 1 27 0 05/31/1969 - 05/31/1996 Smokeless Tobacco: Never Alcohol Use Standard Drinks/Week Comments Yes 4 (1 standard drink = 0.6 oz pur e alcohol) [facility] Utilities Answer Date Recorded In the past 12 months has [employer], [employer], oil, or water [employer] threatened to shut off services in your [...] Neurology - [facility] [address] [facility] [address] [place] [address] Martell Calderon MD 2144 [facility] [address] [place] [address] TREMORS/ MEDICARE, FOR LIFE 03/28/2024 8:30 AM EDT Office Visit Primary Care - [address] [phone] Cheo Santoyo, DO 1112 [place] [address] AWV 04/06/2024 9:45 AM EST Lab [place] [facility] - [facility] 2084 [facility] [address] [place] [address] CBCMP,CEA,FEST 04/06/2024 10:15 AM EST Office Visit [place] [facility] - [facility] 2084 [facility] [address] [place] [address] Georgi Butterfield MD 3510 [facility] 17N [facility] 225 [place], [place] [phone] 6 MTH FU W/LABS, REV SCAN 04/13/2024 9:30 AM EST Office Visit Surgical Oncology - [facility] 2084 [facility] [address] [place] [address] Delvis Cheek MD 125 [facility] [address] [place] [address] 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
--- OUTSIDE RECORDS SUMMARY | 2024-01-13 21:13 | XMS_ITS | Encounter Summary ---
Author Organization Jose Alejandro Pantoja [facility] Address [address] [place] [address] Care Team Providers Care Associate Web Developer Name Role Phone Carter Santoyoony Moshe REYES Primary Care Provider [phone] Reason for Visit * Reason Onset Date Comments Other 01/12/2024 Encounter Details Date Type Department Care Team (Late st Contact Info) Description 01/12/2024 Telephone Orthopaedics - Emy Saeed Dr. [address] [place] [address] Miladis Fields, BURT [address] [place], [place] [phone] Other Social History Tobacco Use Types Packs/Day Years Used Date Smoking Tobacco: Former Cigarettes 1 27 0 05/31/1969 - 05/31/1996 Smokeless Tobacco: Never Alcohol Use Standard Drinks/Week Comments Yes 4 (1 standard drink = 0.6 oz pur e alcohol) [facility] Utilities Answer Date Recorded In the past 12 months has d[employer], gas, oil, or water [employer] threatened to shut off services in your [...] Neurology - [facility] [address] [facility] [address] [place] [address] Martell Calderon MD 2144 [facility] [address] [place] [address] TREMORS/ MEDICARE, FOR LIFE 03/28/2024 8:30 AM EDT Office Visit Primary Care - [address] [address] [place] [address] [place] [address] AWV 04/06/2024 9:45 AM EST Lab [facility] - [facility] [address] [facility] [address] [place] [address] CBCMP,CEA,FEST 04/06/2024 10:15 AM EST Office Visit [facility] - [facility] [address] [facility] [address] [place] [address] Georgi Butterfield MD [address] [place] [address] 6 MTH FU W/LABS, REV SCAN 04/13/2024 9:30 AM EST Office Visit Surgical Oncology - [facility] [address] [facility] [address] [place] [address] Delvis Cheek MD 125 [facility][Note 2] [address] [place] [address] 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 documented as of this encounter Visit Diagnoses Not on filedocumented in this encounter Additional Health Concerns Assessment Noted Time A fall risk assessment has been complete d for the patient 07/06/2023 9:36 AM EST documented as of this encounter Care Teams Associate Web Developer Relationship Specialty Start Date End Date Cheo Santoyo DO [address] [place] [phone] PCP - General Family Medicine 07/06/23 documented as of this encounter
--- OUTSIDE RECORDS SUMMARY | 2024-01-13 21:13 | XMS_ITS | Clinical Summary ---
Author Organization Jose Alejandro [facility]antoja [facility] 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 [address], [address] [place] [address] Miladis Fields PA Other 01/12/2024 Telephone Orthopaedics - [address] [place] [address]. [address] [facility] [address] [place] [address] Miladis Fields PA Call Patient 12/23/2023 [facility]. [address] [facility] [address] [place] [address] Georgi Butterfield MD Medication Request 12/14/2023 Telephone Primary Care [address] [address] Cheo Santoyo, DO new pharm 12/03/2023 Refill Primary Care [address] [phone] Cheo Santoyo, DO New Med Request 11/16/2023 11:30 AM EDT Office Visit Isidro Saldana Dr. [address] [place] [address] Karly Bautista PA Aftercare following right hip joint replacement surgery (Primary Dx) 11/16/2023 11:05 AM EDT Ancillary Procedure Isidro Saldana Dr. [address] [place] [address] 11/16/2023 Telephone Primary Care [address] [address] Cheo Santoyo DO 11/01/2023 [facility] [place] Maurice Panchal MD 10/26/2023 Telephone Orthopaedics [address] [place] [address] Maurice Panchal MD Lab results 10/26/2023 Telephone Orthopaedics - Emy Saeed Dr. [address], [address] [place] [phone] Maurice Elizabeth PA Call Patient 10/21/2023 Telephone Orthopaedics - Maryan Jacobsen Dr. [address] [place] [phone] Maurice Panchal MD Medication Problem 10/21/2023 Abstract Primary Care [address] [address] Cheo Santoyo, 10/19/2023 8:15 AM EDT - 10/19/2023 9:00 AM EDT Surgery [facility] [address] [place] [address] Maurice Panhcal MD HIP TOTAL ARTHROPLASTY ANTERIOR APPROACH ROBOTIC ASSISTED 10/19/2023 7:51 AM EDT Anesthesia Event [facility] [address] [place] [address] Kwabena Wong MD 10/19/2023 6:20 AM EDT - 10/20/2023 12:10 PM EDT Hospital Encounter [facility] 3 [facility] A PCU [address] [place] [address] Maurice Panchal MD Status post total replacement of right hip (Primary Dx); Primary osteoarthritis of right hip Discharge Disposition: Home Health Care [facility] 10/19/2023 Travel 10/16/2023 Prep for Procedure Orthopaedics - [address] - [address] [place] [address] 105 [place] [address] Maurice Elizabeth, PA from Last 3 Months Immunizations Name Administration Dates Next Due COVID-19, MODERNA LESLIE bacon r, Primary or Immunocompromised, (age 12y+), IM, 100 mcg/0.5mL 01/16/2021,09/23/2020,08/13/2020 COVID-19, PFIZER Bivalent, D O NOT Dilute, (age 12y+), IM, 30 mcg/0.3 mL 06/05/2022 Hep A-Hep B, TWINRIX, (age 1 8y+), IM, 1mL 02/16/2014,09/18/2013,08/16/2013 Influenza Virus Vaccine 03/14/2021,03/19,04/28/2019,2017,03/07/2010,03/20/2009,05/18/2008,0 06/23/2007,05/17/2006,04/21/2005, 004,05/09/2003 Influenza Whole 06/08/2002,05/20/2001 Influenza, FLUARIX, FLULAVAL , FLUZONE, (age 6 mo+), AFLURIA, (age 3 y+), IM, Trivalent PF, 0.5mL 03/30/2016,04/11/2015,04/27/2011 Influenza, FLUCELVAX, (age 6 mo+) IM, Trivalent PF, 0.5mL 03/31/2013 Influenza, FLUCELVAX, (age 6 mo+), MDCK, Quadv PF, 0.5mL 04/30/2017 Influenza, FLUZONE High Dose (age 65 y+), IM, Quadv, 0.7mL 04/10/2023 PPD Test 01/01/2015 Pneumococcal, PCV20, PREVNAR 20, [...] 0.6 oz pur e alcohol) [facility] Utilities Answer Date Recorded In the past 12 months has [email or web address], [employer], oil, or water [employer] threatened to shut off services in your [...] Visit Neurology - [facility] [address] [facility] [address] [place] [address] Martell Calderon MD 2145 [facility] [address] [place], [place] [phone] TREMORS/ MEDICARE, FOR LIFE 03/28/2024 8:30 AM EDT Office Visit Primary Care - [address] [address] Cheo Santoyo, [address] [place] [address] AWV 04/06/2024 9:45 AM EST Lab [place] [facility] - [facility] [address] [facility] [address] [place] [address] CBCMP,CEA,FEST 04/06/2024 10:15 AM EST Office Visit [place] [facility] - [facility] [address] [facility] [address] [place] [address] Georgi Butterfield MD [address] [place] [address] 6 MTH FU W/LABS, REV SCAN 04/13/2024 9:30 AM EST Office Visit Surgical Oncology - [facility] [address] [facility] [address] [place] [address] Delvis Cheek MD 125 [facility] [address] [place] [address] 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 06/19/2024 10:30 AM EST Office Visit Orthopaedics- Les Valencia 615 [facility] [address] [place] [phone] Karly Bautista PA [address] [place] [address] annual visit from date [...] this topic Medical Devices Implanted Type Area Stone Processing Machine Operator Device Identifier Shelf Expiration Date Model / Serial / Lot Component Pat [id number] Superior/Infe rior Knee - [id number] Implanted:Qty : 1 on 12/21/2022 by Maurice Panchal MD at [facility] Joint Component Left: Patella [employer] HOW-WD [id number] 06/22/2027 [id number] / / [id number] Component Fem Sz 5 L Knee Micaela Apatite Cruce Ret Cementless - [id number] Implanted:Qty : 1 on 12/21/2022 by Maurice Panchal MD at [facility] Joint Component Left: Knee [employer] Principle Power-Mobile Event Guide [id number] 11/18/2027 [id number] / / [id number] Insert Tib Cndyl Stbl 5 9 Mm Knee 5/Pk X3 Triathlon - [id number] Implanted:Qty : 1 on 12/21/2022 by Maurice Panchal MD at [facility] Joint Component Left: Knee [employer] [facility]-Mobile Event Guide [id number] 09/23/2027 [id number] / / [id number] Baseplate Tib Sz 5 Ap49mm Ml74mm Knee Tritanium 4 Crucfrm - [id number] Implanted:Qty : 1 on 12/21/2022 by Maurice Panchal MD at [facility] Joint Component Left: Knee [employer] Principle PoweriWeebo [id number] 10/07/2027 [id number] / / [id number] Component Pat Kuc57wr Fcl29au Superior/Infe rior Knee - [id number] Implanted:Qty : 1 on 03/17/2023 by Maurice Panchal MD at [facility] Joint Component Right: Patella [employer] [facility] [id number] 01/18/2028 [id number] / / [id number] Component Fem Sz 5 R Knee Cruce Ret Cementless Bead W/ Micaela - [id number] Implanted:Qty : 1 on 03/17/2023 by Maurice Panchal MD at [facility] Joint Component Right: Knee [employer] Principle [employer]-Mobile Event Guide [id number] 02/11/2028 [id number] / / [id number] Insert Tib Cndyl Stbl 6 9 Mm Knee 5/Pk X3 Triathlon - [id number] Implanted:Qty : 1 on 03/17/2023 by Maurice Panchal MD at [facility] Joint Component Right: Knee [employer] Principle [employer]-Mobile Event Guide [id number] 01/07/2028 [id number] / / [id number] Baseplate Tib Sz 6 Ap52mm Ml77mm Knee Tritanium 4 Crucfrm - [id number] Implanted:Qty : 1 on 03/17/2023 by Maurice Panchal MD at [facility] Joint Component Right: Knee [employer] [facility]-Mobile Event Guide [id number] 12/21/2027 [id number] / / [id number] Insert Acet E 0 Deg 36 Mm Hip X3 Trident - [id number] Implanted:Qty : 1 on 10/19/2023 by Maurice Panchal MD at [facility] Joint Component Right: Hip [employer]Mobile Event Guide [id number] 07/05/2028 [id number] / [id number] / [id number] Stem Fem Std Offset 4 Hip Cllrd Insignia - [id number] Implanted:Qty : 1 on 10/19/2023 by Maurice Panchal MD at [facility] Joint Component Right: Hip [employer] Event Guide [id number] 06/19/2028 [id number] / [id number] / [id number] Head Fem Izk27aw +0mm Offset Hip Biolox Delt Ceramic Tapr - [id number] Implanted:Qty : 1 on 10/19/2023 by Maurice Panchal MD at [facility] Joint Component Right: Hip [employer] Event Guide [id number] 06/06/2028 [id number] / [id number] / [id number] Shell Acet Sz E [id number] 5 Clus H Tritanium Pressfit Francisca - [id number] Implanted:Qty : 1 on 10/19/2023 by Maurice Panchal MD at [facility] Joint Component Right: Hip [employer]-Mobile Event Guide [id number] 09/04/2028 [id number] / [id number] / [id number] Procedures Procedure Name Priority Date/Time Associated Diagnosis [...] SPINAL BLOCK Routine 10/19/2023 7:53 AM EDT [place] ARTHRP ACETBLR/PROX FEM PROSTC AGRFT/ALGRFT 10/19/2023 7:15 [...] office today on 11/16/2023. ??X-rays revealed well-positioned [place] hip arthroplasty components without issues or concerns. ??X-rays today were compared to postoperative AP pelvis x-ray completed on 10/19/2023 revealing no change in positioning of arthroplasty components. Karly DALLAS IMG DIAGNOSTIC IMAGI NG ORDERABLES * Hemoglobin and Hematocrit (10/20/2023 4:14 AM EDT) Hemoglobin 13.7 13.0 - 17.3 g/dL [facility] Hematocrit 41.8 38.0 - 52.0 % [facility] Blood BLOOD SPECIMEN / Unknown 10/20/2023 4:14 AM EDT 10/20/2023 5:02 AM EDT Maurice DALLAS HEMATOLOGY ORDERABLE S [facility] [address] [place] [address] * (ABNORMAL) Basic Metabolic Panel (10/20/2023 4:14 [...] Maurice DALLAS CHEMISTRY ORDERABLES Performing Organization Address [facility] de Phone Number F [address] [place] [address] * Culture, Tissue (10/19/2023 5:12 PM EDT) Only the most recent of2 resultswithin the time period is included. FINAL REPORT No aerobic or anaerobic organisms isolated [facility] Gram Stain Result No Polymorphonuclear WBC [facility] Gram Stain Result No Bacteria Seen [facility] Tissue 10/19/2023 5:12 PM EDT 10/19/2023 5:14 PM EDT Maurice Panchal MD MICROBIOLOGY - GENER AL ORDERABLES Performing Organization Address [facility]/State/ZIP Co de Phone Number [facility] [address] [place] [address] * XR PELVIS (1-2 VIEWS) (10/19/2023 9:56 [...] included. FINAL REPORT No Acid-Fast bacilli Isolated [facility] ACID FAST No Acid Fast Bacilli Seen [facility] Tissue HIP JOINT SYNOVIAL FLUID / Unknown 10/19/2023 8:53 AM EDT Comment:Pre-op diagnosis: Primary osteoarthritis of right hip [M16.11] Narrative [facility] - 10/20/2023 1:01 PM EDT Pre-op diagnosis: Primary osteoarthritis of right hip [M16.11] Maurice Panchal MD MICROBIOLOGY - GENER AL ORDERABLES Performing Organization Address [facility] de Phone Number [facility] [address] [place] [address] * Culture, Fungus (10/19/2023 8:53 AM EDT) Only the most recent of2 resultswithin the time period is included. FINAL REPORT No fungi isolated after 28 days. [facility] JESUS result No Fungi Seen [facility] Tissue HIP JOINT SYNOVIAL FLUID / Unknown 10/19/2023 8:53 AM EDT Comment:Pre-op diagnosis: Primary osteoarthritis of right hip [M16.11] Narrative [facility] - 10/19/2023 10:39 PM EDT Pre-op diagnosis: Primary osteoarthritis of right hip [M16.11] Maurice Panchal MD MICROBIOLOGY - GENER AL ORDERABLES Performing Organization Address [facility] de Phone Number [address] [address] * Spinal Block (10/19/2023 7:53 AM EDT) [...] * POCT Glucose (10/19/2023 7:10 AM EDT) Pathologist [facility] POC Glucose 96.0 65.0 - 110.0 mg/dL [facility] Comment:MP - AMB PACU Blood 10/19/2023 7:10 AM EDT 10/19/2023 7:10 AM EDT Maurice Panchal MD POINT OF CARE TEST O IVÁN Performing Organization Address [facility] Co de Phone Number [facility] [address] [place] [address] * Surgical Pathology (10/19/2023) Bone HIP JOINT SYNOVIAL FLUID / Unknown 10/19/2023 9:15 AM EDT Comment:Pre-op diagnosis: Primary osteoarthritis of right hip [M16.11] Maurice Panchal MD PATHOLOGY/CYTOLOGY O RDERASANCHEZ Performing Organization Address [facility] Co de Phone Number [facility] [address] [place] [address] * DIABETES EYE EXAM (08/03/2023) [facility] Diabetic Retinopathy Negative Historical Provider MD SERGIO Benedict * PSA Screening (07/06/2023 11:08 AM EST) [facility] PSA, Screening 1.420 0.000 - 4.000 ng/mL [facility] Comment: PSA INTERPRETATION: PSA measured by Ja Harry electrochemiluminescence immunoassay ECLIA methodology. At this time, no major scientific/medical organization including the [employer] Cancer Society and the [employer] Urological Association have specific recommendations in regard [...] PM EST Cheo Santoyo DO CHEMISTRY ORDERABLES [facility] [address] [facility], [place] [address] * (ABNORMAL) Hemoglobin A1C (07/06/2023 11:08 AM EST) Hemoglobin A1C 6.8(H) 4.0 - 6.0 % [facility] Comment: HEMOGLOBIN A1C [...] Inadequate Control Est. Avg. Glucose, WB 148 [facility] Est. Avg. Glucose-calculated 165 [facility] Blood BLOOD SPECIMEN / Unknown 07/06/2023 11:08 AM EST 07/06/2023 3:58 PM EST Cheo Santoyo DO CHEMISTRY ORDERABLES Performing Organization Address [facility]/State/[facility] Co de Phone Number [facility] [address] [facility] [place] [address] * HM COLONOSCOPY (06/01/2023) 06/01/2023 Historical Provider [...] if any: ?? None. ?? Procedure Note Brewer, Georgi Christopher, MD - 04/07/2023 CT chest with contrast, [...] recurrent or metastatic disease. Georgi Butterfield MD [facility] CT ORDERABLES * Hepatitis C Antibody (03/04/2023 1:05 PM EDT) Pathologist [facility] Hepatitis C Ab Negative Negative [facility] Lonnie FOZIALANA OSORIO Blood BLOOD SPECIMEN / Unknown 03/04/2023 1:05 PM EDT 03/04/2023 4:05 PM EDT Felicitas Monaco MD IMMUNOLOGY ORDERABL ES [facility] [address] [facility] [place] [address] * Lipid Panel (03/04/2023 1:05 PM EDT) [facility] Cholesterol 115 100 - 200 mg/dL [facility] Comment: The National Cholesterol Education Program has published reference cholesterol values for cardiovascular risk to be: Less than 200 mg/dL ? = Low Risk 200 to 239 mg/dL ?= Borderline Risk 240mg/dL and greater ?= High Risk HDL 40 >=40 mg/dL [facility] Comment: The National Lipid Association and the National Cholesterol Education Program (NCEP) have set the guidelines for high-density lipoprotein (HDL) cholesterol in adults ages 18 and up. Triglycerides 90 0 - 149 mg/dL [facility] Comment: TRIGLYCERIDE INTERPRETATION: [...] MD CHEMISTRY ORDERABLE S [facility] [address] [place] [address] from Last 3 Months or Most Recently [...] 6:09 AM 12/21/2022 9:24 PM Care Teams Capsule Inspector Relationship Specialty Start Date End Date hCeo Santoyo DO [address] [place] [phone] PCP - General Family Medicine 07/06/23
--- OUTSIDE RECORDS SUMMARY | 2024-01-13 21:13 | XMS_ITS | Encounter Summary ---
Author Organization Jose Alejandro [facility] Address [address] [place] [address] Care Team Providers Care [facility] Representative Name Role Phone Yarelis, Cheo Moshe REYES Primary Care Provider [phone] Reason for Visit * Reason Onset Date Comments Call Patient 01/12/2024 Encounter Details Date Type Department Care Team (Late st Contact Info) Description 01/12/2024 Telephone Orthopaedics - [address] [place] [address]. [address] [place] [address] [address] [place] [phone] Miladis Fields, BURT [address] [place], [place] [phone] Call Patient Social History Tobacco Use Types Packs/Day Years Used Date Smoking Tobacco: Former Cigarettes 1 27 0 05/31/1969 - 05/31/1996 Smokeless Tobacco: Never Alcohol Use Standard Drinks/Week Comments Yes 4 (1 standard drink = 0.6 oz pur e alcohol) [facility] Utilities Answer Date Recorded In the past 12 months has [employer], gas, oil, or water [employer] threatened to shut off services in your [...] Visit Neurology - [facility] [address] [facility] [address] [place] [address] Martell Calderon MD 2144 [facility] [address] [place] [address] TREMORS/ MEDICARE, FOR LIFE 03/28/2024 8:30 AM EDT Office Visit Primary Care - [address] [address] [place] [address] [place] [address] AWV 04/06/2024 9:45 AM EST Lab [place] [facility] - [facility] [address] [facility] [address] [place] [address] CBCMP,CEA,FEST 04/06/2024 10:15 AM EST Office Visit [place] [facility] - [facility] [address] [facility] [address] [place] [address] Georgi Butterfield MD [address] [place] [address] 6 MTH FU W/LABS, REV SCAN 04/13/2024 9:30 AM EST Office Visit Surgical Oncology - [facility] [address] [facility] [address] [place] [address] Delvis Cheek MD 125 [facility] [address] [place] [address] 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 100 [place] [address] Karly Bautista, BURT [address] [facility] [address] [place] [address] annual visit from date of surgery May/Jul 2024 for bilateral TKA and right LIZZ with Karly. documented as of this encounter Visit Diagnoses Not on filedocumented in this encounter Additional Health Concerns Assessment Noted Time A fall risk assessment has been complete d for the patient 07/06/2023 9:36 AM EST documented as of this encounter Care Teams Medical Center Representative Relationship Specialty Start Date End Date Cheo Santoyo DO [address] [place] [phone] PCP - General Family Medicine 07/06/23 documented as of this encounter
--- OUTSIDE RECORDS SUMMARY | 2024-01-13 21:14 | XMS_ITS | Encounter Summary ---
Author Organization Jose Alejandro Pantoja [facility] Address [address] [place] [address] Care Team Providers Care Resaw Carriage Operator Name Role Phone Cheo Santoyo Primary Care Provider [phone] Reason for Visit * Reason Onset Date Comments Lab results 10/26/2023 Encounter Details Date Type Department Care Team (Late st Contact Info) Description 10/26/2023 Telephone Orthopaedics - [place] [id number] [phone] Maurice Panchal MD [address] [address] Lab results Social History Tobacco Use Types Packs/Day Years Used Date Smoking Tobacco: Former Cigarettes 1 27 0 05/31/1969 - 05/31/1996 Smokeless Tobacco: Never Alcohol Use Standard Drinks/Week Comments Yes 7 (1 standard drink = 0.6 oz pur e alcohol) [facility] Utilities Answer Date Recorded In the past 12 months has [employer] gas, oil, or water [employer] threatened to shut off services in your [...] - [facility] [address] [facility] [address] [place] [address] Martell Calderon MD 2144 [facility] [place] [address] [place] [address] TREMORS/ MEDICARE, FOR LIFE 03/28/2024 8:30 AM EDT Office Visit Primary Care - [address] [phone] Cheo [address]oyo [address] [address] AWV 04/06/2024 9:45 AM EST Lab [facility] - [facility] [address] [facility] [address] [place] [address] CBCMP,CEA,FEST 04/06/2024 10:15 AM EST Office Visit [facility] - [facility] [address] [facility] [address] [place] [address] Georgi Butterfield MD 3510 [facility] 17N [facility] 225 [place] [address] 6 MTH FU W/LABS, REV SCAN 04/13/2024 9:30 AM EST Office Visit Surgical Oncology - [facility] [address] [facility] [address] [place] [address] Delvis Cheek MD 125 [facility] 660 [place] [phone] 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 301 [place] [address] annual visit from date of [...] documented as of this encounter Care Teams Resaw Carriage Operator Relationship Specialty Start Date End Date Cheo Santoyo DO [address] [place] [phone] PCP - General Family Medicine 07/06/23 documented as of this encounter
--- OUTSIDE RECORDS SUMMARY | 2024-01-13 21:14 | XMS_ITS | Encounter Summary ---
Author Organization Jose Alejandro [facility]olin[facility] Address [address] [employer] [place] [address] Care Team Providers Care Combiner Operator Name Role Phone Cheo Santoyo Primary Care Provider [phone] Reason for Visit * Auth/Cert (Routine) Specialty Diagnoses / Procedures Referred By Rachid t Referred To Contact Diagnoses Primary osteoarthritis of right hip Primary osteoarthritis of right hip [M16.11] Procedures NE ARTHRP ACETBLR/PROX FEM PROSTC AGRFT/ALGRFT HIP TOTAL ARTHROPLASTY ANTERIOR APPROACH ROBOTIC ASSISTED Maurice Panchal MD [address] [address] Referral ID Status Reason Start Date Expiration Date Visits Re quested Visits Authorized [id number] 1 1 Encounter Details Date Type Department Care Team (Late st Contact Info) Description 10/19/2023 8:15 AM EDT - 10/19/2023 9:00 AM EDT Surgery [facility] [address] [place] [phone] Maurice Panchal MD [address] [id number] HIP TOTAL ARTHROPLASTY ANTERIOR APPROACH ROBOTIC ASSISTED [...] drink = 0.6 oz pur e alcohol) [facility] Utilities Answer Date Recorded In the past 12 months has th e electric, gas, oil, or water [employer] threatened to shut off services in your [...] have X-rays every year or two. ?? [id number] [employer]. All rights reserved. This information is not intended as a substitute for professional medical care. Always follow your healthcare professional's instructions. * Attachments The following attachments cannot be sent through Care Everywhere. * acetaminophen (oral) (Northern Irish) * aspirin (oral) (Northern Irish) * celecoxib (Northern Irish) * docusate (oral/rectal) (Northern Irish) * Constipation (Northern Irish) * DVT (Deep Vein Thrombosis) (Northern Irish) * Pulmonary Embolism (Northern Irish) documented in this encounter Medications at Time [...] without long-term current use of insulin ([facility]) Inject 0.5 mg once weekly 3 [...] (with RW) ADL Treatment (12 Minutes) CPT 16944: Self care including Scooting, Transfer Training, Sitting [...] Learning: None Education Outcome: Verbalized understanding;Demonstrated understanding [facility]?6 Clicks?? Basic ADL Inpatient Short Form [...] How much help for eating meals?: None [facility] Inpatient Daily Activity Raw Score: 22 AM-PAC [...] Signature: Nadia Mondragon, OT Date: 10/20/2023 * Maurcie Elizabeth PA - 10/20/2023 10:03 AM EDT Orthopedic Progress Note Date:10/20/2023 Room:[address] [place] [address] Patient Name:Martínez Toribio Date of :1955 Age:68 [...] creator for further clarification. * Chrissy Mcdonnell, CERTIFIED CODING SPECIALIST - 10/20/2023 8:20 AM EDT Images from the original note were not included. Acute Care Physical Therapy Treatment Note Observation (CERTIFIED CODING SPECIALIST/PT Visit Days : 2) Time In: 0755 [...] pastmedical history of Ryan's esophagus, Cancer ([facility]), Chronic back pain, Diabetes (HCC), DJD [...] Within Normal Limits Orientation Level: Oriented X4 [facility]?6 Clicks?? Basic Mobility Inpatient Short Form How [...] 3-5 steps with a railing?: A Little AM-[facility] Inpatient Mobility Raw Score : 20 AM-[facility] Inpatient T-Scale Score : 47.67 Mobility Inpatient CMS 0-100% Score: 35.83 Mobility Inpatient [facility] G-Code Modifier : CJ TREATMENT Bed [...] VERBALIZE AND DEMONSTRATE PROPERLY Therapeutic Exercise (CPT 47924) (5 minutes) Exercise Treatment: ANKLE PUMPS, QUAD SETS, GLUTEAL SETS X 10; INSTRUCTED OTHERWISE TO ONLY AMBULATE FOR EXERCISE To Improve:activity tolerance, AROM, strength, and mobility Gait Training (19 Minutes) CPT 03925: Gait training for 250 feet utilizing Gait [...] KNEES REPLACED IN THE PAST. SEATED IN DIRECTOR MOBILE. REVIEWED ANTI-EMBOLICS AND INSTRUCTED TO OTHERWISE AMBULATE [...] activities Goals ALL MET Short Term Goals Retirement Goals Time Frame for Short Term Goals: [...] included. Acute Care Physical Therapy Evaluation Observation (CERTIFIED CODING SPECIALIST/PT Visit Days : 1) Time In: 1600 [...] pastmedical history of Ryan's esophagus, Cancer ([facility]), Chronic back pain, Diabetes ([facility]), DJD (degenerative joint disease), GERD (gastroesophageal reflux disease), Hip pain, HTN (hypertension), Hyperlipidemia, IBS (irritable bowel syndrome), Left bundle branch block (LBBB), Post-operative nausea andvomiting, Sleep apnea, Spinal stenosis, Tremor, Type 2 diabetes mellitus without complication ([facility]), and Wears glasses. He also has [...] Therapeutic activ ities Goals Short Term Goals Plant Science Professor Goals Time Frame for Short Term Goals: [...] EDT Pre Procedure Patient Instructions Procedure Location hospital:[facility] [address] [place]- Your [...] day of your procedure call [facility] Preopat [phone]. Skin Preparation: Wash with Hibiclens or an [...] wear artificial nails and only clear nail andorran on natural nails. Nails must be trimmed [...] Living Will and/or Medical Durable Power of Cycle Repairer if you have one Bring a list [...] you have any additional questions please contact [phone]. To pre-register for your procedure please call [phone] Option 1. For financial questions regarding your procedure at a [facility], please contact [phone]. For financial questions regarding anesthesia at a [facility], please contact [phone]. For [employer] Patient Portal help please call [phone]. documented in this encounter Plan of Treatment Upcoming Encounters Date Type Department Care Team (Late st Contact Info) Description 03/24/2024 9:00 AM EDT Office Visit Neurology - [facility] [address] [facility] [address] [place] [address] Martell Calderon MD 2144 [facility] [address] [place] [address] TREMORS/ MEDICARE, FOR LIFE 03/28/2024 8:30 AM EDT Office Visit Primary Care - [address] [address] Cheo Santoyo, [address] [place] [phone] AWV 04/06/2024 9:45 AM EST Lab [facility] - [facility] [address] [facility] [address] [place] [address] CBCMP,CEA,FEST 04/06/2024 10:15 AM EST Office Visit [facility] - [facility] [address] [facility] [address] [place] [address] Georgi Butterfield MD [address] [place] [address] 6 MTH FU W/LABS, REV SCAN 04/13/2024 9:30 AM EST Office Visit Surgical Oncology - [facility] [address] [facility] [address] [place] [address] Delvis Cheek MD 125 [facility] [address] [place] [address] 1 YEAR F/U [facility]ENOCARCIN[facility] 06/19/2024 10:30 AM EST Office Visit Orthopaedics- Les Valencia 615 [facility] [address] [place] [address] Karly Bautista, PA [address] [place] [address] annual visit from date of surgery May/Jul [...] AM EDT Primary osteoarthritis of right hip NE ARTHRP ACETBLR/PROX FEM PROSTC AGRFT/ALGRFT 10/19/2023 7:15 AM EDT Primary osteoarthritis of right hip Special Needs javan/ rosa m POCT GLUCOSE Routine 10/19/2023 7:10 AM EDT SURGICAL PATHOLOGY Routine 10/19/2023 Primary osteoarthritis of right hip documented in this encounter Results * Hemoglobin and Hematocrit (10/20/2023 4:14 AM EDT) Pathologist [facility] Hemoglobin 13.7 13.0 - 17.3 g/dL [facility] Hematocrit 41.8 38.0 - 52.0 % [facility] Blood BLOOD SPECIMEN / Unknown 10/20/2023 4:14 AM EDT 10/20/2023 5:02 AM EDT Maurice DALLAS HEMATOLOGY ORDERABLE S [facility] [address] [place] [address] * (ABNORMAL) Basic Metabolic Panel (10/20/2023 4:14 AM EDT) [facility] Sodium 138 135 - 145 mmol/L [facility] Potassium 4.8 3.5 - 5.3 mmol/L [facility] Chloride 102 98 - 107 mmol/L [facility] CO2 26 22 - 29 mmol/L [facility] Glucose 157(H) 70 - 99 mg/dL [facility] BUN 17 8 - 23 mg/dL [facility] Creatinine 1.1 0.7 - 1.3 mg/dL [facility] Anion Gap 10 2 - 17 mmol/L [facility] Osmolaliy Calculated 280 270 - 287 mOsm/kg [facility] Calcium 9.0 8.5 - 10.7 mg/dL [...] Maurice DALLAS CHEMISTRY ORDERABLES Performing Organization Address City/[facility]/ZIP Co de Phone Number [address], [place] [address] * Culture, Tissue (10/19/2023 5:12 PM EDT) FINAL REPORT No aerobic or anaerobic organisms isolated [facility] Gram Stain Result No Polymorphonuclear WBC [facility] Gram Stain Result No Bacteria Seen [facility] Tissue 10/19/2023 5:12 PM EDT 10/19/2023 5:14 PM EDT Maurice Panchal MD MICROBIOLOGY - GENER AL ORDERABLES Performing Organization Address City/[facility] Co de Phone Number [facility] [address] [place] [address] * (ABNORMAL) Culture, Tissue (10/19/2023 4:58 PM EDT) FINAL REPORT Propionibacterium species Most Closely Resembling Propionibacterium avidum(A) [facility] FINAL REPORT No aerobic organisms isolated.(A) [facility] Gram Stain Result No Polymorphonuclear WBC(A) [facility] Gram Stain Result No Bacteria Seen(A) [facility] Organism Propionibacterium species(A) [facility] Tissue 10/19/2023 4:58 PM EDT 10/19/2023 5:14 PM EDT Maurice Panchal MD MICROBIOLOGY - GENER AL ORDERABLES [facility] [address] [place] [address] * XR PELVIS (1-2 VIEWS) (10/19/2023 9:56 [...] EDT) FINAL REPORT No Acid-Fast bacilli Isolated [facility] ACID FAST No Acid Fast Bacilli Seen [facility] Tissue HIP JOINT SYNOVIAL FLUID / Unknown 10/19/2023 8:53 AM EDT Comment:Pre-op diagnosis: Primary osteoarthritis of right hip [M16.11] Narrative [facility] - 10/20/2023 1:01 PM EDT Pre-op diagnosis: Primary osteoarthritis of right hip [M16.11] Maurice Panchal MD MICROBIOLOGY - GENER AL ORDERABLES Performing Organization Address [facility] Co de Phone Number [facility] [address] [place] [address] * Culture, Fungus (10/19/2023 8:53 AM EDT) FINAL REPORT No fungi isolated after 28 days. [facility] JESUS result No Fungi Seen [facility] Tissue HIP JOINT SYNOVIAL FLUID / Unknown 10/19/2023 8:53 AM EDT Comment:Pre-op diagnosis: Primary osteoarthritis of right hip [M16.11] Narrative [facility] - 10/19/2023 10:39 PM EDT Pre-op diagnosis: Primary osteoarthritis of right hip [M16.11] Maurice Panchal MD MICROBIOLOGY - GENER AL ORDERABLES Performing Organization Address [facility] de Phone Number [facility] [address] [place] [address] * Culture with Smear, Acid Fast Bacillius (10/19/2023 8:50 AM EDT) FINAL REPORT No Acid-Fast bacilli Isolated [facility] ACID FAST No Acid Fast Bacilli Seen [facility] Synov Fl JOINT SPECIMEN / Unknown 10/19/2023 8:50 AM EDT Comment:Pre-op diagnosis: Primary osteoarthritis of right hip [M16.11] Narrative [facility] - 10/20/2023 1:00 PM EDT Pre-op diagnosis: Primary osteoarthritis of right hip [M16.11] Maurice Panchal MD MICROBIOLOGY - GENER AL ORDERABLES Performing Organization Address [facility] Co de Phone Number [facility] [address] [place] [address] * Culture, Fungus (10/19/2023 8:50 AM EDT) FINAL REPORT No fungi isolated after 28 days. [facility] JESUS result No Fungi Seen [facility] Synov Fl JOINT SPECIMEN / Unknown 10/19/2023 8:50 AM EDT Comment:Pre-op diagnosis: Primary osteoarthritis of right hip [M16.11] Narrative [facility] - 10/19/2023 10:40 PM EDT Pre-op diagnosis: Primary osteoarthritis of right hip [M16.11] Maurice Panchal MD MICROBIOLOGY - GENER AL ORDERABLES Performing Organization Address [facility] Co de Phone Number [facility] [address] [place] [address] * POCT Glucose (10/19/2023 7:10 AM EDT) POC Glucose 96.0 65.0 - 110.0 mg/dL [facility] Comment:MP - AMB PACU Blood 10/19/2023 7:10 AM EDT 10/19/2023 7:10 AM EDT Maurice Panchal MD POINT OF CARE TEST O RDERABLES Performing Organization Address [facility] Co de Phone Number [facility] [address] [place] [address] * Surgical Pathology (10/19/2023) Bone HIP JOINT SYNOVIAL FLUID / Unknown 10/19/2023 9:15 AM EDT Comment:Pre-op diagnosis: Primary osteoarthritis of right hip [M16.11] Maurice Panchal MD PATHOLOGY/CYTOLOGY O RDERABLES Performing Organization Address [facility] Co de Phone Number [facility] [address] [place] [phone] documented in this encounter Visit Diagnoses Diagnosis [...] mL IVPB (mini-bag) (COMPLETED) 2,000 mg, IntraVENous, CUSTOMER RELATIONS CONSULTANT TO O.R., 1 dose, On Wed10/19/23 at [...] at 400 mL/hr, Administer over 15 Minutes, CUSTOMER RELATIONS CONSULTANT TO O.R., On Wed10/19/23 at 0645, For [...] documented as of this encounter Care Teams Combiner Operator Relationship Specialty Start Date End Date Cheo Santoyo DO [address] [place] [phone] PCP - General Family Medicine 07/06/23 documented as of this encounter
--- OUTSIDE RECORDS SUMMARY | 2024-01-13 21:14 | XMS_ITS | Encounter Summary ---
Author Organization Jose Alejandro Pantoja [facility] Address [address] [place] [address] Care Team Providers Care Inside Finisher Name Role Phone Cheo Santoyo Primary Care Provider [phone] Encounter Details Date Type Department Care Team (Late st Contact Info) Description 09/28/[address] [facility] - [facility]. [address] [facility] [address] [place] [address] Georgi Butterfield MD [address] [place] [address] Social History Tobacco Use Types [...] Visit Neurology - [facility] [address] [facility] [address] [place] [address] Martell Calderon MD 214 [facility] [address] [place] [address] TREMORS/ MEDICARE, FOR LIFE 03/28/2024 8:30 AM EDT Office Visit Primary Care - [address] [address] Cheo Santoyo DO [address]12 [place] [address] AWV 04/06/2024 9:45 AM EST Lab [facility] - [facility] [address] [facility] [address] [place] [address] CBCMP,CEA,FEST 04/06/2024 10:15 AM EST Office Visit [place] [facility] - [facility] [address] [facility] [address] [place] [phone] Georgi Butterfield MD [address] [place] [address] 6 MTH FU W/LABS, REV SCAN 04/13/2024 9:30 AM EST Office Visit Surgical Oncology - [facility] [address] [facility] [address] [place] [phone] Delvis Cheek MD 125 [facility] [address] [place] [phone] 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 [address] [place] [phone] Karly Bautista, PA [address] [facility] [address] [place] [phone] annual visit from date of surgery May/Jul 2024 for bilateral TKA and right LIZZ with Karly. documented as of this encounter Visit Diagnoses Not on filedocumented in this encounter Additional Health Concerns Assessment Noted Time A fall risk assessment has been complete d for the patient 07/06/2023 9:36 AM EST documented as of this encounter Care Teams Inside Finisher Relationship Specialty Start Date End Date Cheo Santoyo DO [address] [place] [phone] PCP - General Family Medicine 07/06/23 documented as of this encounter
--- OUTSIDE RECORDS SUMMARY | 2024-01-13 21:14 | XMS_ITS | Encounter Summary ---
Author Organization Jose Alejandro Kit [facility] Address [address] [place] [address] Care Team Providers Care Glass Inspector Name Role Phone Cheo Santoyo DO Primary Care Provider [phone] Reason for Referral * Eval and Treat (Routine) - Closed Specialty Diagnoses / Procedures Referred By Rachid jimenez Referred To Contact Neurology Diagnoses Essential tremor Cheo Santoyo DO [address] [place] [phone] Martell Calderon MD [address] [address] Referral ID Status Reason Start Date Expiration Date V isits Requested Visits Authorized [id number] Closed Specialty Services Required 08/20/2023 08/19/2024 1 1 Scheduling Instructions [facility] Neurology Comments The patient can be scheduled with any member of the group, including the provider with the first available appointments. Reason for Visit * Reason Onset Date Comments OTHER 08/20/2023 Referral Neurolo gy Encounter Details Date Type Department Care Team ([facility] Contact Info) Description 08/20/2023 Telephone Primary Care - [address] [address] Cheo Santoyo DO [address] [place] [phone] OTHER (Referral Neurology) Social History Tobacco [...] Office Visit Neurology - Maryan Jacobsen Dr[address] [place] [address] Martell Calderon [facility] [address] [place] [address] TREMORS/ MEDICARE, FOR LIFE 03/28/2024 8:30 AM EDT Office Visit Primary Care - [address] [phone] Cheo Santoyo, DO [address] [place] [phone] AWV 04/06/2024 9:45 AM EST Lab [place] [facility] - [facility] [place] [address] [facility] [address] [place] [phone] CBCMP,CEA,FEST 04/06/2024 10:15 AM EST Office Visit [place] [facility] - [facility] [place] [address] [facility] [address] [place] [phone] Georgi Butterfield MD [address] [place], [place] [phone] 6 MTH FU W/LABS, REV SCAN 04/13/2024 9:30 AM EST Office Visit Surgical Oncology - [facility] [place] [address] [facility] [address] [place] [address] Delvis Cheek MD 125 [facility] 660 [place] [phone] 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 Scheduled Referrals Name Type Priority Associated Diagnoses Order Schedule RSFPP - Martell Calderon MD, Neurology - [facility] Outpatient Referral Routine Essential tremor Ordered: 08/20/2023 documented as of this encounter Visit Diagnoses Diagnosis Essential tremor- Primary Essential and other specified forms of tremor documented in this encounter Additional Health Concerns Assessment Noted Time A fall risk assessment has been complete d for the patient 07/06/2023 9:36 AM EST documented as of this encounter Care Teams Glass Inspector Relationship Specialty Start Date End Date Cheo Santoyo DO [address] [place] [phone] PCP - General Family Medicine 07/06/23 documented as of this encounter
--- OUTSIDE RECORDS SUMMARY | 2024-01-13 21:14 | XMS_ITS | Encounter Summary ---
Author Organization [facility] Address [address] [place] [address] Care Team Providers Care Office Equipment Mechanic Name Role Phone Cheo Santoyo Primary Care Provider [phone] Reason for Referral * Surgical (Routine) - Closed Specialty Diagnoses / Procedures Referred By Contosman jimenez Referred To Contact Orthopedic Surgery Diagnoses Primary osteoarthritis of right hip Procedures VT ARTHRP ACETBLR/PROX FEM PROSTC AGRFT/ALGRFT Maurice Pancahl MD [address] [address] Maurice Panchal MD [facility] [address] [address] Referral ID Status Reason Start Date Expiration Date V isits Requested Visits Authorized [id number] Closed Insurance 08/26/2023 08/25/2024 1 1 Scheduling Instructions LIZZ [id number] [facility] Maurice Panchal MD, Orthopaedics [employer] [address] [address] Comments The patient can be scheduled with any member of the group, including the provider with the first available appointments. Encounter Details Date Type Department Care Team (Late st Contact Info) Description 08/26/2023 Orders Only Orthopaedics - [address] - [address] [place] [address] Maurice Panchal MD [address] [facility] 105 [place] [address] Primary osteoarthritis of right hip (Primary Dx); [...] Dr. [address] [place] [address] Martell Calderon MD 8570 [facility] [address] [place] [address] TREMORS/ MEDICARE, FOR LIFE 03/28/2024 8:30 AM EDT Office Visit Primary Care - [facility] [address] [place] [phone] Cheo Santoyo, 1112 [place] [address] AWV 04/06/2024 9:45 AM EST Lab [place] [facility] - [facility] [address] [facility] [address] [place] [address] CBCMP,CEA,FEST 04/06/2024 10:15 AM EST Office Visit [place] [facility] - [facility] [address] [facility] [address] [place] [address] Georgi Butterfield MD [address] [place] [address] 6 MTH FU W/LABS, REV SCAN 04/13/2024 9:30 AM EST Office Visit Surgical Oncology - [facility] [address] [facility] [address] [place] [address] Delvis Cheek MD 125 [facility] 660 [place] [address] 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
--- OUTSIDE RECORDS SUMMARY | 2024-01-13 21:14 | XMS_ITS | Encounter Summary ---
Author Organization Jose Alejandro Raymundolinnea [facility] Address [address] [place] [address] Care Team Providers Care Drug Safety Data Management Specialist Name Role Phone Cheo Santoyo Moshe REYES Primary Care Provider [phone] Reason for Referral * Imaging (Routine) - Open Specialty Diagnoses / Procedures Referred By [facility] Referred To Contact Radiology Diagnoses Carcinoma of ascending colon (HCC) Malignant neoplasm of intestine (HCC) Procedures CT CHEST W CONTRAST Georgi Butterfield MD [address] [place] [address] Referral ID Status Reason Start Date Expiration Date Visits Re quested Visits Authorized [id number] Open 10/07/2023 10/06/2024 1 1 * Imaging (Routine) - Open Specialty Diagnoses / Procedures Referred By [facility] Referred To Contact Radiology Diagnoses Carcinoma of ascending colon (HCC) Malignant neoplasm of intestine (HCC) Procedures CT ABDOMEN PELVIS W IV CONTRAST Additional Contrast? None (IV CONTRAST) Georgi Butterfield MD [address] [place] [address] Referral ID Status Reason Start Date Expiration Date Visits Re quested Visits Authorized [id number] Open 10/07/2023 10/06/2024 1 1 Reason for Visit * Reason Comments Follow-up Encounter Details Date Type Department Care Team ([facility] st Contact Info) Description 10/07/2023 10:30 AM EDT Office Visit [facility] Hematology & Oncology - [facility] [address] [facility] [address] [place] [address] Georgi Butterfield MD [address] [place] [address] Iron deficiency anemia, unspecified iron [...] original note were not included. [facility] HEMATOLOGY & ONCOLOGY MD Rosalino Ponce MD Ryan A. Kalinsky, MD Mark T. Burbridge, DO Jenny Riley, MD Margaret Brady, MD Caitlin Mengler, [facility] Marcela Jackman APRN-TIGIST Valentine NP [email or web address] Hematology/Medical Oncology Patient Name: Martínez Toribio [...] bundle branch block (LBBB) no longer sees rounding machine operator, states stress and testing was completed and rounding machine operator signed off PONV (postoperative nausea [...] HIP performed by Martinez Guthrie MD at [facility]IN [facility] HIP SURGERY Bilateral 08/04/2023 INTRA ARTICULAR HIP BILATERAL NO PA REQ performed by Martinez Guthrie MD at [facility] PAIN [facility]GEMENT JOINT REPLACEMENT Right 2011 shoulder KIDNEY STONE SURGERY 2009 basket removal KNEE ARTHROSCOPY Left 10/13/2021 multiple knee scopes right and left 1997 thru 2021 SHOULDER SURGERY Right 2010 2011 right hemiarthroplasty SUBTOTAL COLECTOMY 2019 R. Hemicolectomy TOTAL KNEE ARTHROPLASTY Left 12/21/2022 LEFT TOTAL KNEE ARTHROPLASTY, ROBOTIC performed by Maurice Panchal MD at [facility] MAIN OR TOTAL KNEE ARTHROPLASTY Right 03/17/2023 RIGHT TOTAL KNEE ARTHROPLASTY, ROBOTIC performed by Maurice Panchal MD at [facility] MAIN OR UPPER GASTROINTESTINAL ENDOSCOPY 2019 [...] Office Visit Neurology - [address] [facility] [address] [place] [phone] Martell aClderon MD 2144 [facility] [address] [place], [place] [phone] TREMORS/ MEDICARE, FOR LIFE 03/28/2024 8:30 AM EDT Office Visit Primary Care - [address] [address] Cheo Santoyo, [address] [place] [address] AWV 04/06/2024 9:45 AM EST Lab [place] [facility] - [facility] [address] [facility] [address] [place] [address] CBCMP,CEA,FEST 04/06/2024 10:15 AM EST Office Visit [place] [facility] - [facility] [address] [facility] [address] [place] [address] Georgi Butterfield MD 3510 [facility] [address] [place] [address] 6 MTH FU W/LABS, REV SCAN 04/13/2024 9:30 AM EST Office Visit Surgical Oncology - [facility] [address] [facility] [address] [place] [address] Delvis Cheek MD 125 [facility] [address] 660 [place] [address] 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 06/19/2024 10:30 AM EST Office Visit Orthopaedics- Les Valencia [address] [facility] [address] [place] [phone] Karly Bautista, PA 180 [facility] 301 [place] [address] annual visit from date of surgery May/Jul [...] Testing Location: [address], [facility] [address], Georgi Butterfield MD HEMATOLOGY ORDERABL ES [facility] HEMATOLOGY & ONCOLOGY CC [address] [facility] [address] [place] [address], [facility] * (ABNORMAL) Comprehensive Metabolic Panel (10/07/2023 10:11 AM EDT) Sodium 140 135 - 145 mmol/L [facility] Potassium 4.6 3.5 - 5.3 mmol/L [facility] Chloride 103 98 - 107 mmol/L [facility] CO2 23 22 - 29 mmol/L [facility] Glucose 148(H) 70 - 99 mg/dL [facility] BUN 17 8 - 23 mg/dL [facility] Creatinine 1.1 0.7 - 1.3 mg/dL [facility] Anion Gap 14 2 - 17 mmol/L [facility] Osmolaliy Calculated 284 270 - 287 mOsm/kg [facility] Calcium 9.9 8.5 - 10.7 mg/dL [facility] Total Protein 6.6 5.7 - 8.3 g/dL [facility] Albumin 4.7 3.5 - 5.2 g/dL [facility] Globulin 1.9 1.9 - 4.4 g/dL [facility] Albumin/Globulin Ratio 2.42 1.00 - 2.70 [facility] Total Bilirubin 0.65 0.00 - 1.20 mg/dL [facility] Alk Phosphatase 77 40 - 130 unit/L [facility] AST 21 0 - 50 unit/L [facility] ALT 29 0 - 50 unit/L [facility] Est, Glom Filt Rate 74 >=60 mL/min/1.7 3m? [facility] Comment: VERIFIED by Discern Expert. GFR [...] estimating GFR in adults. Test Performed at: [facility] [address] [place] [address] [place] [address] Blood BLOOD SPECIMEN / Unknown 10/07/2023 10:11 AM EDT 10/07/2023 12:28 PM EDT Georgi Butterfield MD CHEMISTRY ORDERABLE S Performing Organization Address [facility] de Phone Number [facility] [address] [place] [address] * Folate (10/07/2023 10:11 AM EDT) [facility] Folate 6.86 4.80 - 24.20 ng/mL [facility] Comment: Test Performed at: [facility] [address] [place] [address] [place] [address] Blood BLOOD SPECIMEN / Unknown 10/07/2023 10:11 AM EDT 10/07/2023 12:28 PM EDT Georgi Butterfield MD CHEMISTRY ORDERABLE S Performing Organization Address [facility] de Phone Number [facility] [address] [place] [address] * Vitamin B12 (10/07/2023 10:11 AM EDT) [facility] Vitamin B-12 432 232 - 1245 pg/mL [facility] Comment: Effective 05/05/17 Vitamin B12 Methodology Change - Vitamin B12 Reference Range has been revised. Test Performed at: [facility] [address] [place] [address] [place] [address] Blood BLOOD SPECIMEN / Unknown 10/07/2023 10:11 AM EDT 10/07/2023 12:28 PM EDT Georgi Butterfield MD CHEMISTRY ORDERABLE S Performing Organization Address City/[facility] Co de Phone Number [facility] [address] [place] [address] * Iron and TIBC (10/07/2023 10:11 AM EDT) [facility] Iron 85 59 - 158 mcg/dL [facility] UIBC 239.2 112.0 - 347.0 mcg/dL [facility] TIBC 325 250 - 450 mcg/dL [facility] Iron % Saturation 26 20 - 40 % [facility] Comment: Test Performed at: [facility] [address] [place] [address] [place] [address] Serum BLOOD SPECIMEN / Unknown 10/07/2023 10:11 AM EDT 10/07/2023 12:28 PM EDT Georgi Butterfield MD CHEMISTRY ORDERABLE S Performing Organization Address [facility] de Phone Number [facility] [address] [place] [address] * Ferritin (10/07/2023 10:11 AM EDT) [facility] Ferritin 112.1 30.0 - 400.0 ng/mL [facility] Comment: Test Performed at: [facility] [address] [place] [address] [place] [address] Blood BLOOD SPECIMEN / Unknown 10/07/2023 10:11 AM EDT 10/07/2023 12:28 PM EDT Georgi Butterfield MD CHEMISTRY ORDERABLE S Performing Organization Address [facility] de Phone Number [facility] [address] [place] [address] * Reticulocytes (10/07/2023 10:11 AM EDT) Pathologist [facility] RBC 5.14 4.00 - 5.60 x10e6/mcL [facility] Retic Ct Pct 1.4 0.5 - 2.0 % [facility] Retic Ct Abs 0.0735 0.0235 - 0.1220 /mcL [facility] Comment: Test Performed at: [facility] [address] [facility] [place] [address] Blood BLOOD SPECIMEN / Unknown 10/07/2023 10:11 AM EDT 10/07/2023 12:28 PM EDT Georgi Butterfield MD HEMATOLOGY ORDERABL ES Performing Organization Address [facility] de Phone Number [facility] [address] [place] [address] * Soluble transferrin receptor (10/07/2023 10:11 AM EDT) [facility] Soluble Transferrin Recept 15.9 12.2 - 27.3 nmol/L [facility] Comment: Performed At: [address] [id number] Ajit Swift MD Ph:[phone] Test Performed at: [facility] [address] [facility] [place] [address] Blood BLOOD SPECIMEN / Unknown 10/07/2023 10:11 AM EDT 10/07/2023 12:28 PM EDT Georgi Butterfield MD HEMATOLOGY ORDERABL ES Performing Organization Address [facility] de Phone Number [facility] [address] [place] [address] * CEA (Serial Monitor) (10/07/2023 10:11 AM EDT) [facility] CEA (SERIAL MONITOR) 2.1 0.0 - 4.7 ng/mL [facility] Comment: ? Nonsmokers ?<3.9 ? Smokers ? <5.6 [facility] Electrochemiluminescence Immunoassay (ECLIA) Values obtained with different assay methods or kits cannot be used interchangeably. ??Results cannot be interpreted as absolute evidence of the presence or absence of malignant disease. Performed At: [facility] [id number] Ajit Swift MD Ph:[phone] Test Performed at: [facility] [address] [facility] [place] [address] Blood BLOOD SPECIMEN / Unknown 10/07/2023 10:11 AM EDT 10/07/2023 12:28 PM EDT Georgi Butterfield MD CHEMISTRY ORDERABLE S [facility] [address] [place] [address] documented in this encounter Visit Diagnoses Diagnosis [...] documented as of this encounter Care Teams Drug Safety Data Management Specialist Relationship Specialty Start Date End Date Cheo Santoyo DO [address] [place] [phone] PCP - General Family Medicine 07/06/23 documented as of this encounter
--- OUTSIDE RECORDS SUMMARY | 2024-01-13 21:14 | XMS_ITS | Encounter Summary ---
Author Organization Jose Alejandro Pantoja [facility] Address [address] [place] [address] Care Team Providers Care Jet Dyeing Machine Operator Name Role Phone Yarelis Cheo Moshe REYES Primary Care Provider [phone] Reason for Visit * Reason Onset Date Comments Call Patient 09/29/2023 Encounter Details Date Type Department Care Team (Late st Contact Info) Description 09/29/2023 Telephone Orthopaedics - Emy Sae[address] Dr. [address] [facility] [address] [place] [address] Maurice Panchal MD 4853 [facility] 17 [facility] 105 [place] [address] Call Patient Social History Tobacco [...] 9:00 AM EDT Office Visit Neurology - [facility] [address] [facility] [address] [place] [address] Martell Calderon MD 2145 [facility] [address] [place] [address] TREMORS/ MEDICARE, FOR LIFE 03/28/2024 8:30 AM EDT Office Visit Primary Care - [address] [address] Cheo Santoyo DO [address] [place] [address] AWV 04/06/2024 9:45 AM EST Lab [place] [facility] - [facility] 20[address] [facility] [address] [place] [address] CBCMP,CEA,FEST 04/06/2024 10:15 AM EST Office Visit [place] [facility] - [facility] [address] [facility] [address] [place] [address] Georgi Butterfield MD [address] [place] [address] 6 MTH FU W/LABS, REV SCAN 04/13/2024 9:30 AM EST Office Visit Surgical Oncology - [facility] 20[address] [facility] [address] [place] [address] Delvis Cheek MD [address] 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 [address] [place] [phone] Karly Bautista, PA [address] [place] [address] annual visit from date of surgery May/Jul 2024 for bilateral TKA and right LIZZ with Karly. documented as of this encounter Visit Diagnoses Not on filedocumented in this encounter Additional Health Concerns Assessment Noted Time A fall risk assessment has been complete d for the patient 07/06/2023 9:36 AM EST documented as of this encounter Care Teams Jet Dyeing Machine Operator Relationship Specialty Start Date End Date Cheo Santoyo DO [address] [place] [phone] PCP - General Family Medicine 07/06/23 documented as of this encounter
--- OUTSIDE RECORDS SUMMARY | 2024-01-13 21:14 | XMS_ITS | Encounter Summary ---
Author Organization Jose Alejandro Pantoja [facility] Address [address] [place] [address] Care Team Providers Care Production Operations Inspector Name Role Phone Cheo Santoyo Primary Care Provider [phone] Reason for Visit * Reason Onset Date Comments Medication Problem 10/21/2023 Encounter Details Date Type Department Care Team (Late st Contact Info) Description 10/21/2023 Telephone Orthopaedics - Maryan [address] Dr. [address] [place] [address] Maurice Panchal MD [address] [place], [place] [address] Medication Problem Social History Tobacco Use Types Packs/Day Years Used Date Smoking Tobacco: Former Cigarettes 1 27 0 05/31/1969 - 05/31/1996 Smokeless Tobacco: Never Alcohol Use Standard Drinks/Week Comments Yes 7 (1 standard drink = 0.6 oz pur e alcohol) [facility] Utilities Answer Date Recorded In the past 12 months has [employer], gas, oil, or water [employer] threatened to shut off services in your [...] - [facility] [address] [facility] [address] [place] [address] Martell Calderon MD 2144 [facility] [address] [place] [address] TREMORS/ MEDICARE, FOR LIFE 03/28/2024 8:30 AM EDT Office Visit Primary Care - [address] [address] Cheo Santoyo [address] [address] AWV 04/06/2024 9:45 AM EST Lab [place] [facility] - [facility] 20[address] [facility] [address] [place] [address] CBCMP,CEA,FEST 04/06/2024 10:15 AM EST Office Visit [place] [facility] - [facility] 20[address] [facility] [address] [place] [address] Georgi Butterfield MD 3510 [facility] 17[address] [facility] 225 [place] [address] 6 MTH FU W/LABS, REV SCAN 04/13/2024 9:30 AM EST Office Visit Surgical Oncology - [facility] 2084 [facility] [address] [place] [address] Delvis Cheek MD 125 [facility] 660 [place] [address] 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
--- OUTSIDE RECORDS SUMMARY | 2024-01-13 21:14 | XMS_ITS | Encounter Summary ---
Author Organization Jose Alejandro Pantoja [facility] Address [address] [place] [address] Care Team Providers Care Community Organization Director Name Role Phone Cheo Santoyo Moshe REYES Primary Care Provider [phone] Encounter Details Date Type Department Care Team (Late st Contact Info) Description 08/24/2023 Orders Only Orthopaedics - [place] [id number] [phone] Maurice Panchal MD [address] [address] Social History Tobacco Use Types Packs/Day Years [...] Office Visit Neurology - [facility] [address] [facility] [address] [place] [address] Martell Calderon MD 2144 [facility] [address] [place] [address] TREMORS/ MEDICARE, FOR LIFE 03/28/2024 8:30 AM EDT Office Visit Primary Care - [address] [address] [place] [address] [place] [address] AWV 04/06/2024 9:45 AM EST Lab [place] [facility] - [facility] 2084 [facility] [address] [place] [address] CBCMP,CEA,FEST 04/06/2024 10:15 AM EST Office Visit [place] [facility] - [facility] [address] [facility] [address] [place] [address] Georgi Butterfield MD 3510 [facility] [address] [place] [address] 6 MTH FU W/LABS, REV SCAN 04/13/2024 9:30 AM EST Office Visit Surgical Oncology - [facility] [address] [facility] [place] [address] Delvis Cheek MD 125 [facility] [address] [place] [address] 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 [address] [place] [address] Karly Bautista, PA [address] [place] [address] annual visit from date of surgery May/Jul 2024 for bilateral TKA and right LIZZ with Karly. documented as of this encounter Visit Diagnoses Not on filedocumented in this encounter Additional Health Concerns Assessment Noted Time A fall risk assessment has been complete d for the patient 07/06/2023 9:36 AM EST documented as of this encounter Care Teams Community Organization Director Relationship Specialty Start Date End Date Cheo Santoyo DO [address] [place] [phone] PCP - General Family Medicine 07/06/23 documented as of this encounter
--- OUTSIDE RECORDS SUMMARY | 2024-01-13 21:14 | XMS_ITS | Encounter Summary ---
Author Organization [facility] Address [address] [place] [address] Care Team Providers Care Electrical Prospecting Supervisor Name Role Phone Cheo Santoyo Moshe REYES Primary Care Provider [phone] Encounter Details Date Type Department Care Team (Late st Contact Info) Description 08/20/2023 2:40 PM EDT Ancillary Procedure Orthopaedics - [address] [place] [address] Social History Tobacco Use Types [...] Neurology - [facility] [address] [facility] [address] [place] [address] Martell Calderon MD 2144 [facility] [address] [place] [address] TREMORS/ MEDICARE, FOR LIFE 03/28/2024 8:30 AM EDT Office Visit Primary Care - [address] [phone] Cheo Santoyo, [address] [address] AWV 04/06/2024 9:45 AM EST Lab [facility] - [facility] [address] [facility] [address] [place] [address] CBCMP,CEA,FEST 04/06/2024 10:15 AM EST Office Visit [facility] - [facility] [address] [facility] [address] [place] [address] Georgi Butterfield MD [address] [place] [address] 6 MTH FU W/LABS, REV SCAN 04/13/2024 9:30 AM EST Office Visit Surgical Oncology - [facility] [address] [facility] [address] [place] [address] Delvis Cheek MD 125 [facility] [address] [place] [address] 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
--- OUTSIDE RECORDS SUMMARY | 2024-01-13 21:14 | XMS_ITS | Encounter Summary ---
Author Organization Jose Alejandro [facility] Address [address] [place] [address] Care Team Providers Care Revenue Cycle Analyst Name Role Phone Cheo Santoyo Primary Care Provider [phone] Reason for Visit * Auth/Cert (Routine) Specialty Diagnoses / Procedures Referred By Contosman t Referred To Contact Diagnoses Primary osteoarthritis of right hip Primary osteoarthritis of right hip [M16.11] Procedures VT ARTHRP ACETBLR/PROX FEM PROSTC AGRFT/ALGRFT HIP TOTAL ARTHROPLASTY ANTERIOR APPROACH ROBOTIC ASSISTED Maurice Panchal MD [facility] [address] [address] Referral ID Status Reason Start Date Expiration Date Visits Re quested Visits Authorized [id number] 1 1 Encounter Details Date Type Department Care Team (Late st Contact Info) Description 10/19/2023 7:51 AM EDT Anesthesia Event RMP SURGERY 3500 [facility] 17 [place] [address] Kwabena Wong MD 125 [facility] 420 [place], [place] [id number] Anesthesia Record Procedure Summary Procedure Name Responsible Anesthesiologist Anesthesia Start Time Anesthesia Stop Time HIP TOTAL ARTHROPLASTY ANTERIOR APPROACH ROBOTIC ASSISTED (Right: Hip) Kwabena Wong MD 10/19/23 0751 10/19/23 0943 Events Date Time Event Comment 10/19/2023 0740 0751 An Start Location: {AN S tart Location:[id number]} 0751 An Start Data 0751 Case on Time Start? First ca se of the day? Yes On Time Start? Yes If No, Delay due to: {MH AN CASE ON TIME:[id number]} 0758 Block Placed 0759 Anesthesia Ready 0936 [...] drink = 0.6 oz pur e alcohol) [facility] Utilities Answer Date Recorded In the [...] [address] [place] [phone] Martell Calderon MD [address] [facility] [address] [place] [address] TREMORS/ MEDICARE, FOR LIFE 03/28/2024 8:30 AM EDT Office Visit Primary Care - [address] [address] Cheo Santoyo DO [address] [place] [address] AWV 04/06/2024 9:45 AM EST Lab [facility] - [address] [facility] [address] [place] [phone] CBCMP,CEA,FEST 04/06/2024 10:15 AM EST Office Visit [facility] - [facility] [address] [facility] [address] [place] [phone] Georgi Butterfield MD [address] [place] [address] 6 MTH FU W/LABS, REV SCAN 04/13/2024 9:30 AM EST Office Visit Surgical Oncology - [facility] [address] [facility] [address] [place] [address] Delvis Cheek MD 125 [facility] [address] [place] [address] 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 06/19/2024 10:30 AM EST Office Visit Orthopaedics- Les Valencia 615 [facility] [address] [place] [phone] Karly Bautista, PA [address] [place] [phone] annual visit from date of surgery May/Jul [...] 100 mL IVPB (mini-bag) 2,000 mg, IntraVENous, RV SERVICE TECHNICIAN TO O.R., 1 dose, On Wed10/19/23 at [...] at 400 mL/hr, Administer over 15 Minutes, RV SERVICE TECHNICIAN TO O.R., On Wed10/19/23 at 0645, For [...] documented as of this encounter Care Teams Revenue Cycle Analyst Relationship Specialty Start Date End Date Cheo Santoyo DO [address] [place] [phone] PCP - General Family Medicine 07/06/23 documented as of this encounter
--- OUTSIDE RECORDS SUMMARY | 2024-01-13 21:14 | XMS_ITS | Encounter Summary ---
Author Organization Jose Alejandro Pantoja [facility] Address [address] [place] [address] Care Team Providers Care Survey Research Manager Name Role Phone Cheo Santoyo Moshe REYES Primary Care Provider [phone] Encounter Details Date Type Department Care Team (Late st Contact Info) Description 10/05/2023 Orders Only [facility] Hematology & Oncology - [address] [place] [address] Georgi Butterfield MD 3510 [facility] [address] [place] [address] Iron deficiency anemia, unspecified iron [...] Visit Neurology - [facility] [address] [facility] [address] [place] [address] Martell Calderon MD 214 [facility] [address] [place] [address] TREMORS/ MEDICARE, FOR LIFE 03/28/2024 8:30 AM EDT Office Visit Primary Care - [address] [address] Cheo Santoyo DO [address] [place] [phone] AWV 04/06/2024 9:45 AM EST Lab [place] [facility] - [facility] [address] [facility] [address] [place] [address] CBCMP,CEA,FEST 04/06/2024 10:15 AM EST Office Visit [place] - [facility] 20[address] [facility] [address] [place] [address] Georgi Butterfield MD [address] [place] [address] 6 MTH FU W/LABS, REV SCAN 04/13/2024 9:30 AM EST Office Visit Surgical Oncology - [facility] 2632 [facility] [address] [place] [address] Delvis Cheek MD 125 [facility] 660 [place] [address] 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 [address] [place] [phone] Karly Bautista PA [address] [place] [address] annual visit from date of surgery May/Jul 2024 for bilateral TKA and right LIZZ with Karly. documented as of this encounter Results * CEA (Serial Monitor) (10/07/2023 10:11 AM EDT) CEA (SERIAL MONITOR) 2.1 0.0 - 4.7 ng/mL [facility] Comment: ? Nonsmokers ?<3.9 ? Smokers ? <5.6 [facility] Electrochemiluminescence Immunoassay (ECLIA) Values obtained with different assay methods or kits cannot be used interchangeably. ??Results cannot be interpreted as absolute evidence of the presence or absence of malignant disease. Performed At: [address] [id number] Ajit Swift MD Ph:[phone] Test Performed at: [facility] [address] [place] [address] Blood BLOOD SPECIMEN / Unknown 10/07/2023 10:11 AM EDT 10/07/2023 12:28 PM EDT Georgi Butterfield MD CHEMISTRY ORDERABLE S Performing Organization Address [facility] de Phone Number [facility] [address] [place] [address] * Soluble transferrin receptor (10/07/2023 10:11 AM EDT) Soluble Transferrin Recept 15.9 12.2 - 27.3 nmol/L [facility] Comment: Performed At: [facility] [id number] Ajit Swift MD Ph:[phone] Test Performed at: [facility] [address] [facility] [place] [address] Blood BLOOD SPECIMEN / Unknown 10/07/2023 10:11 AM EDT 10/07/2023 12:28 PM EDT Georgi Butterfield MD HEMATOLOGY ORDERABL ES Performing Organization Address [facility] de Phone Number [facility] [address] [place] [address] * Reticulocytes (10/07/2023 10:11 AM EDT) RBC 5.14 4.00 - 5.60 x10e6/mcL [facility] Retic Ct Pct 1.4 0.5 - 2.0 % [facility] Retic Ct Abs 0.0735 0.0235 - 0.1220 /mcL [facility] Comment: Test Performed at: [facility] [address] [place] [address] Blood BLOOD SPECIMEN / Unknown 10/07/2023 10:11 AM EDT 10/07/2023 12:28 PM EDT Georgi Butterfield MD HEMATOLOGY ORDERABL ES Performing Organization Address [facility] Co de Phone Number [facility] [address] [place] [address] * Ferritin (10/07/2023 10:11 AM EDT) Pathologist [facility] Ferritin 112.1 30.0 - 400.0 ng/mL [facility] Comment: Test Performed at: [facility] [address] [facility] [place] [address] Blood BLOOD SPECIMEN / Unknown 10/07/2023 10:11 AM EDT 10/07/2023 12:28 PM EDT Georgi Butterfield MD CHEMISTRY ORDERABLE S Performing Organization Address [facility] de Phone Number [facility] [address] [place] [address] * Iron and TIBC (10/07/2023 10:11 AM EDT) [facility] Iron 85 59 - 158 mcg/dL [facility] UIBC 239.2 112.0 - 347.0 mcg/dL [facility] TIBC 325 250 - 450 mcg/dL [facility] Iron % Saturation 26 20 - 40 % [facility] Comment: Test Performed at: [facility] [address] [place] [address] Serum BLOOD SPECIMEN / Unknown 10/07/2023 10:11 AM EDT 10/07/2023 12:28 PM EDT Georgi Butterfield MD CHEMISTRY ORDERABLE S Performing Organization Address [facility] Co de Phone Number [facility] [address] [place] [address] * Vitamin B12 (10/07/2023 10:11 AM EDT) Pathologist [facility] Vitamin B-12 432 232 - 1245 pg/mL [facility] Comment: Effective 05/05/17 Vitamin B12 Methodology Change - Vitamin B12 Reference Range has been revised. Test Performed at: [facility] [address] [place] [address] Blood BLOOD SPECIMEN / Unknown 10/07/2023 10:11 AM EDT 10/07/2023 12:28 PM EDT Georgi Butterfield MD CHEMISTRY ORDERABLE S Performing Organization Address [facility] de Phone Number [facility] [address] [place] [address] * Folate (10/07/2023 10:11 AM EDT) Pathologist [facility] Folate 6.86 4.80 - 24.20 ng/mL [facility] Comment: Test Performed at: [facility] [address] [facility] [place] [address] Blood BLOOD SPECIMEN / Unknown 10/07/2023 10:11 AM EDT 10/07/2023 12:28 PM EDT Georgi Butterfield MD CHEMISTRY ORDERABLE S Performing Organization Address [facility] de Phone Number [facility] [address] [place] [address] * (ABNORMAL) Comprehensive Metabolic Panel (10/07/2023 10:11 AM EDT) [facility] Sodium 140 135 - 145 mmol/L [facility] Potassium 4.6 3.5 - 5.3 mmol/L [facility] Chloride 103 98 - 107 mmol/L [facility] CO2 23 22 - 29 mmol/L [facility] Glucose 148(H) 70 - 99 mg/dL [facility] BUN 17 8 - 23 mg/dL [facility] Creatinine 1.1 0.7 - 1.3 mg/dL [facility] Anion Gap 14 2 - 17 mmol/L [facility] Osmolaliy Calculated 284 270 - 287 mOsm/kg [facility] Calcium 9.9 8.5 - 10.7 mg/dL [facility] Total Protein 6.6 5.7 - 8.3 g/dL [facility] Albumin 4.7 3.5 - 5.2 g/dL [facility] Globulin 1.9 1.9 - 4.4 g/dL [facility] Albumin/Globulin Ratio 2.42 1.00 - 2.70 [facility] Total Bilirubin 0.65 0.00 - 1.20 mg/dL [facility] Alk Phosphatase 77 40 - 130 unit/L [facility] AST 21 0 - 50 unit/L [facility] ALT 29 0 - 50 unit/L [facility] Est, [...] estimating GFR in adults. Test Performed at: [facility] [address] [facility] 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
--- OUTSIDE RECORDS SUMMARY | 2024-01-13 21:14 | XMS_ITS | Encounter Summary ---
Author Organization Jose Alejandro Pantoja [facility]sol deandra [facility] Address [address] [place] [address] Care Team Providers Care Television Actor Name Role Phone YarelisCheo friend Moshe REYES Primary Care Provider [phone] Encounter Details Date Type Department Care Team (Late st Contact Info) Description 10/16/2023 Prep for Procedure Orthopaedics - [place] [address] [address] [place] [address] Maurice Elizabeth PA [address] [address] Social History Tobacco Use Types Packs/Day Years Used Date Smoking Tobacco: Former Cigarettes 1 27 0 05/31/1969 - 05/31/1996 Smokeless Tobacco: Never Alcohol Use Standard Drinks/Week Comments Yes 4 (1 standard drink = 0.6 oz pur e alcohol) [facility] Utilities Answer Date Recorded In the past 12 months has [employer], gas, oil, or water [employer] threatened to shut off services in your [...] Visit Neurology - [facility] [address] [facility] [address] [place] [phone] Martell Calderon MD 2144 [facility] [address] [place] [address] TREMORS/ MEDICARE, FOR LIFE 03/28/2024 8:30 AM EDT Office Visit Primary [facility] - [facility] [address] [place] [phone] Cheo Santoyo DO [address] [place] [address] AWV 04/06/2024 9:45 AM EST Lab [place] [facility] - [facility] [address] [facility] [address] [place] [address] CBCMP,CEA,FEST 04/06/2024 10:15 AM EST Office Visit [place] [facility] - [facility] [address] [facility] [address] [place] [address] Georgi Butterfield MD [address] [place], [place] [phone] 6 MTH FU W/LABS, REV SCAN 04/13/2024 9:30 AM EST Office Visit Surgical Oncology - [facility] [address] [facility] [address] [place] [address] Delvis Cheek MD 125 [facility] [address] [place] [address] 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 documented as of this encounter Visit Diagnoses Not on filedocumented in this encounter Additional Health Concerns Assessment Noted Time A fall risk assessment has been complete d for the patient 07/06/2023 9:36 AM EST documented as of this encounter Care Teams Television Actor Relationship Specialty Start Date End Date Cheo Santoyo DO [address] [place] [phone] PCP - General Family Medicine 07/06/23 documented as of this encounter
--- OUTSIDE RECORDS SUMMARY | 2024-01-13 21:14 | XMS_ITS | Encounter Summary ---
Author Organization Jose Alejandro liriano [facility] Address [address] [place] [address] Care Team Providers Care Accounts Payables Clerk Name Role Phone Cheo Santoyo DO Primary Care Provider [phone] Reason for Visit * Reason Onset Date Comments Medication Adjustment 09/06/2023 Encounter Details Date Type Department Care Team ([facility] st Contact Info) Description 09/06/2023 Telephone Primary Care - [address] [address] Cheo Santoyo DO [address] [place] [phone] Medication Adjustment Social History Tobacco Use [...] Visit Neurology - [facility] [address] [facility] [address] [place] [address] Martell Calderon MD 214 [facility] [address] [place] [address] TREMORS/ MEDICARE, FOR LIFE 03/28/2024 8:30 AM EDT Office Visit Primary Care - [address] [address] Cheo Santoyo DO [address]12 [place] [address] AWV 04/06/2024 9:45 AM EST Lab [place] [facility] - [facility] [address] [facility] [address] [place] [address] CBCMP,CEA,FEST 04/06/2024 10:15 AM EST Office Visit [place] [facility] - [facility] [address] [facility] [address] [place] [address] Georgi Butterfield MD [address] [place] [address] 6 MTH FU W/LABS, REV SCAN 04/13/2024 9:30 AM EST Office Visit Surgical Oncology - [facility] [address] [facility] [address] [place] [address] Delvis Cheek MD 125 [facility] 660 [place] [address] 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
--- OUTSIDE RECORDS SUMMARY | 2024-01-13 21:14 | XMS_ITS | Encounter Summary ---
Author Organization Jose Alejandro Pantoja [facility] Address [address] [place] [address] Care Team Providers Care Grails Web Application Developer Name Role Phone Cheo Santoyo Primary Care Provider [phone] Encounter Details Date Type Department Care Team (Late st Contact Info) Description 10/07/2023 Orders Only [place] [facility] - [facility] [address] [facility] [address] [place] [address] Georgi Butterfield MD [address] [place] [address] Iron deficiency anemia, unspecified iron [...] Neurology - [address] [facility] [address] [address] [place] [address] Martell Calderon MD 2145 [facility] [address] [place] [address] TREMORS/ MEDICARE, FOR LIFE 03/28/2024 8:30 AM EDT Office Visit Primary Care - [address] [address] Cheo Santoyo DO [address] [place] [phone] AWV 04/06/2024 9:45 AM EST Lab [place] [facility] - [facility] 2084 [facility] [address] [place] [address] CBCMP,CEA,FEST 04/06/2024 10:15 AM EST Office Visit [place] [facility] - [facility] 2084 [facility] [address] [place] [address] Georgi Butterfield MD [address] [place] [address] 6 MTH FU W/LABS, REV SCAN 04/13/2024 9:30 AM EST Office Visit Surgical Oncology - [facility] 2083 [facility] [address] [place] [address] Delvis Cheek MD 125 [facility] [address] [place] [address] 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 [address] [place] [address] Karly Bautista PA [address] [place] [address] annual visit from date of [...] Testing Location: [address], [facility] [address], Georgi Butterfield MD HEMATOLOGY ORDERABL ES [facility] [address] [facility] [address] [place] [address] documented in this encounter Visit Diagnoses Diagnosis [...] documented as of this encounter Care Teams Grails Web Application Developer Relationship Specialty Start Date End Date Cheo Santoyo DO [address] [place] [phone] PCP - General Family Medicine 07/06/23 documented as of this encounter
--- OUTSIDE RECORDS SUMMARY | 2024-01-13 21:14 | XMS_ITS | Encounter Summary ---
Author Organization Jose Alejandro [facility] Address [address] [place] [address] Care Team Providers Care Feed Inspection Supervisor Name Role Phone Cheo Santoyo Primary Care Provider [phone] Reason for Visit * Auth/Cert (Routine) Specialty Diagnoses / Procedures Referred By Rachid t Referred To Contact Diagnoses Primary osteoarthritis of right hip Primary osteoarthritis of right hip [M16.11] Procedures NV ARTHRP ACETBLR/PROX FEM PROSTC AGRFT/ALGRFT HIP TOTAL ARTHROPLASTY ANTERIOR APPROACH ROBOTIC ASSISTED Maurice Panchal MD [address] [address] Referral ID Status Reason Start Date Expiration Date Visits Re quested Visits Authorized [id number] 1 1 Encounter Details Date Type Department Care Team (Latest Contact Info) Description 10/19/2023 6:20 AM EDT - 10/20/2023 12:10 PM EDT Hospital Encounter RMP 3 [place] [address] [place] [id number] Maurice Panchal MD [address] [address] Status post total replacement of right hip (Primary Dx); Primary osteoarthritis of right hip Discharge Disposition: Home Health Care Svc Social History Tobacco Use Types Packs/Day Years Used Date Smoking Tobacco: Former Cigarettes 1 27 0 05/31/1969 - 05/31/1996 Smokeless Tobacco: Never Alcohol Use Standard Drinks/Week Comments Yes 7 (1 standard drink = 0.6 oz pur e alcohol) [facility] Utilities Answer Date Recorded In the [...] have X-rays every year or two. ?? [id number] [employer] All rights reserved. This information is not intended as a substitute for professional medical care. Always follow your healthcare professional's instructions. * Attachments The following attachments cannot be sent through Care Everywhere. * acetaminophen (oral) (Tanzanian) * aspirin (oral) (Tanzanian) * celecoxib (Tanzanian) * docusate (oral/rectal) (Tanzanian) * Constipation (Tanzanian) * DVT (Deep Vein Thrombosis) (Tanzanian) * Pulmonary Embolism (Tanzanian) documented in this encounter Medications at Time [...] long-term current use of insulin ([facility]) Inject 0.5 mg once weekly 3 Adjustable [...] history of Ryan's esophagus, Cancer ([facility]), Chronic back pain, Diabetes ([facility]), DJD (degenerative joint disease), GERD (gastroesophageal reflux disease), Hip pain, HTN (hypertension), Hyperlipidemia, IBS (irritable bowel syndrome), Left bundle branch block (LBBB), Post-operative nausea andvomiting, Sleep apnea, Spinal stenosis, Tremor, Type 2 diabetes mellitus without complication ([facility]), and Wears glasses. He also has a [...] (with RW) ADL Treatment (12 Minutes) CPT 55319: Self care including Scooting, Transfer Training, Sitting [...] Learning: None Education Outcome: Verbalized understanding;Demonstrated understanding [facility]?6 Clicks?? Basic ADL Inpatient Short Form [...] How much help for eating meals?: None [facility] Inpatient Daily Activity Raw Score: 22 [facility] Inpatient ADL T-Scale Score : 47.1 [...] 10:03 AM EDT Orthopedic Progress Note Date:10/20/2023 Room:[address] [place] [address] Patient Name:Martínez Toribio Date of :1955 Age:68 [...] creator for further clarification. * Chrissy Mcdonnell, KLYSTROM TUBE TESTER - 10/20/2023 8:20 AM EDT Images from the original note were not included. Acute Care Physical Therapy Treatment Note Observation (KLYSTROM TUBE TESTER/PT Visit Days : 2) Time In: 0755 [...] history of Ryan's esophagus, Cancer ([facility]), Chronic back pain, Diabetes ([facility]), DJD (degenerative joint disease), GERD (gastroesophageal reflux disease), Hip pain, HTN (hypertension), Hyperlipidemia, IBS (irritable bowel syndrome), Left bundle branch block (LBBB), Post-operative nausea andvomiting, Sleep apnea, Spinal stenosis, Tremor, Type 2 diabetes mellitus without complication ([facility]), and Wears glasses. He also has a [...] Within Normal Limits Orientation Level: Oriented X4 [facility]?6 Clicks?? Basic Mobility Inpatient Short Form [...] 3-5 steps with a railing?: A Little [facility] Inpatient Mobility Raw Score : 20 [facility] Inpatient T-Scale Score : 47.67 Mobility [...] VERBALIZE AND DEMONSTRATE PROPERLY Therapeutic Exercise (CPT 58634) (5 minutes) Exercise Treatment: ANKLE PUMPS, QUAD SETS, GLUTEAL SETS X 10; INSTRUCTED OTHERWISE TO ONLY AMBULATE FOR EXERCISE To Improve:activity tolerance, AROM, strength, and mobility Gait Training (19 Minutes) CPT 30145: Gait training for 250 feet utilizing Gait [...] KNEES REPLACED IN THE PAST. SEATED IN APPLICATION PENETRATION TESTER. REVIEWED ANTI-EMBOLICS AND INSTRUCTED TO OTHERWISE AMBULATE [...] activities Goals ALL MET Short Term Goals Boilers And Pressure Vessels Inspector Goals Time Frame for Short Term Goals: [...] included. Acute Care Physical Therapy Evaluation Observation (KLYSTROM TUBE TESTER/PT Visit Days : 1) Time In: 1600 [...] Therapeutic activ ities Goals Short Term Goals Fdc Goals Time Frame for Short Term Goals: 3 visits Short Term Goal 1: Pt will transfer STS c RW c CGA Short Term Goal 2: Pt will amb 200 ft c RW c CGA Short Term Goal 3: Pt will navigate curb c RW c CGA Therapist Signature: Brenden Guerrero Prevatte Date: 10/19/2023. * Ninaf Horowitz, RN - 10/12/2023 11:21 AM EDT Pre Procedure Patient Instructions Procedure Location hospital:[facility] [address] [facility]- Your arrival time may be as [...] on the day of your procedure call [facility] Preopat [phone]. Skin Preparation: Wash with Hibiclens or an [...] wear artificial nails and only clear nail portuguese on natural nails. Nails must be trimmed [...] Living Will and/or Medical Durable Power of Odd Shoe Examiner if you have one Bring a list [...] you have any additional questions please contact [phone]. To pre-register for your procedure please call [phone] Option 1. For financial questions regarding your procedure at a [facility], please contact [phone]. For financial questions regarding anesthesia at a [facility] facility, please contact [phone]. For webtide Patient Portal help please call [phone]. documented in this encounter Plan of Treatment Upcoming Encounters Date Type Department Care Team (Late st Contact Info) Description 03/24/2024 9:00 AM EDT Office Visit Neurology - [facility] [address] [facility] [address] [place] [address] Martell Calderon MD [address] [facility] [address] [place] [address] TREMORS/ MEDICARE, FOR LIFE 03/28/2024 8:30 AM EDT Office Visit Primary Care - [address] [address] Cheo Santoyo, [address] [place] [phone] AWV 04/06/2024 9:45 AM EST Lab [facility] [address] [facility] [address] [place] [address] CBCMP,CEA,FEST 04/06/2024 10:15 AM EST Office Visit [facility] - [facility] [address] [facility] [address] [place] [address] Georgi Butterfield MD [address] [place] [address] 6 MTH FU W/LABS, REV SCAN 04/13/2024 9:30 AM EST Office Visit Surgical Oncology - [facility] [address] [facility] [address] [place] [address] Delvis Cheek MD 125 [facility] [address] [place] [address] 1 YEAR F/U [facility] 06/19/2024 10:30 AM EST Office Visit Orthopaedics- Les Valencia [address] [facility] [address] [place] [address] Karly Bautista, BURT [address] [place], [place] [...] S RSF [place] [facility] [address] [place] [address] * (ABNORMAL) Basic Metabolic Panel (10/20/2023 4:14 [...] Maurice DALLAS CHEMISTRY ORDERABLES Performing Organization Address City/[facility] Co de Phone Number [address] [address] * Culture, Tissue (10/19/2023 5:12 PM EDT) FINAL REPORT No aerobic or anaerobic organisms isolated [facility] Gram Stain Result No Polymorphonuclear WBC [facility] Gram Stain Result No Bacteria Seen [facility] Tissue 10/19/2023 5:12 PM EDT 10/19/2023 5:14 PM EDT Maurice Panchal MD MICROBIOLOGY - GENER AL ORDERABLES Performing Organization Address [facility] Co de Phone Number [facility] [address] [place] [address] * (ABNORMAL) Culture, Tissue (10/19/2023 4:58 PM EDT) FINAL REPORT Propionibacterium species Most Closely Resembling Propionibacterium avidum(A) [facility] FINAL REPORT No aerobic organisms isolated.(A) [facility] Gram Stain Result No Polymorphonuclear WBC(A) [facility] Gram Stain Result No Bacteria Seen(A) [facility] Organism Propionibacterium species(A) [facility] Tissue 10/19/2023 4:58 PM EDT 10/19/2023 5:14 PM EDT Maurice Panchal MD MICROBIOLOGY - GENER AL ORDERABLES Performing Organization Address [facility] Co de Phone Number [facility] [address] [place] [address] * XR PELVIS (1-2 VIEWS) (10/19/2023 9:56 [...] EDT) FINAL REPORT No Acid-Fast bacilli Isolated [facility] ACID FAST No Acid Fast Bacilli Seen [facility] Tissue HIP JOINT SYNOVIAL FLUID / Unknown 10/19/2023 8:53 AM EDT Comment:Pre-op diagnosis: Primary osteoarthritis of right hip [M16.11] Narrative [facility] - 10/20/2023 1:01 PM EDT Pre-op diagnosis: Primary osteoarthritis of right hip [M16.11] Maurice Panchal MD MICROBIOLOGY - [facility] AL ORDERABLES [facility] [address] [place] [address] * Culture, Fungus (10/19/2023 8:53 AM EDT) FINAL REPORT No fungi isolated after 28 days. [facility] JESUS result No Fungi Seen [facility] Tissue HIP JOINT SYNOVIAL FLUID / Unknown 10/19/2023 8:53 AM EDT Comment:Pre-op diagnosis: Primary osteoarthritis of right hip [M16.11] Narrative [facility] - 10/19/2023 10:39 PM EDT Pre-op diagnosis: Primary osteoarthritis of right hip [M16.11] Maurice Panchal MD MICROBIOLOGY - GENER AL ORDERABLES Performing Organization Address City/[facility] de Phone Number [facility] [address] [place] [address] * Culture with Smear, Acid Fast Bacillius (10/19/2023 8:50 AM EDT) FINAL REPORT No Acid-Fast bacilli Isolated [facility] ACID FAST No Acid Fast Bacilli Seen [facility] Synov Fl JOINT SPECIMEN / Unknown 10/19/2023 8:50 AM EDT Comment:Pre-op diagnosis: Primary osteoarthritis of right hip [M16.11] Narrative [facility] - 10/20/2023 1:00 PM EDT Pre-op diagnosis: Primary osteoarthritis of right hip [M16.11] Maurice Panchal MD MICROBIOLOGY - GENER AL ORDERABLES Performing Organization Address [facility] de Phone Number [facility] [address] [place] [address] * Culture, Fungus (10/19/2023 8:50 AM EDT) FINAL REPORT No fungi isolated after 28 days. [facility] JESUS result No Fungi Seen [facility] Synov Fl JOINT SPECIMEN / Unknown 10/19/2023 8:50 AM EDT Comment:Pre-op diagnosis: Primary osteoarthritis of right hip [M16.11] Narrative [facility] - 10/19/2023 10:40 PM EDT Pre-op diagnosis: Primary osteoarthritis of right hip [M16.11] Maurice Panchal MD MICROBIOLOGY - GENER AL ORDERABLES Performing Organization Address City/[facility] Co de Phone Number [facility] [address] [place] [address] * POCT Glucose (10/19/2023 7:10 AM EDT) POC Glucose 96.0 65.0 - 110.0 mg/dL [facility] Comment:MP - AMB PACU Blood 10/19/2023 7:10 AM EDT 10/19/2023 7:10 AM EDT Maurice Panchal MD POINT OF CARE TEST O RDERASANCHEZ Performing Organization Address [facility] Co de Phone Number [facility] [address] [place] [address] * Surgical Pathology (10/19/2023) Bone HIP JOINT SYNOVIAL FLUID / Unknown 10/19/2023 9:15 AM EDT Comment:Pre-op diagnosis: Primary osteoarthritis of right hip [M16.11] Maurice Panchal MD PATHOLOGY/CYTOLOGY O RDERABLES Performing Organization Address [facility] Co de Phone Number [facility] [address] [place] [address] documented in this encounter Visit Diagnoses Diagnosis [...] mL IVPB (mini-bag) (COMPLETED) 2,000 mg, IntraVENous, FLIGHT ATTENDANT TO O.R., 1 dose, On Wed10/19/23 at [...] at 400 mL/hr, Administer over 15 Minutes, FLIGHT ATTENDANT TO O.R., On Wed10/19/23 at 0645, For [...] documented as of this encounter Care Teams Feed Inspection Supervisor Relationship Specialty Start Date End Date Cheo Santoyo DO [address] [place] [phone] PCP - General Family Medicine 07/06/23 documented as of this encounter
--- OUTSIDE RECORDS SUMMARY | 2024-01-13 21:14 | XMS_ITS | Encounter Summary ---
Author Organization Jose Alejandro Pantoja [facility] Address [address] [place] [address] Care Team Providers Care Facilities Officer Name Role Phone Cheo Santoyo DO Primary Care Provider [phone] Reason for Visit * Reason Onset Date Comments Call Patient 09/29/2023 Encounter Details Date Type Department Care Team (Late st Contact Info) Description 09/29/2023 Telephone Orthopaedics - [address] [place] [address] Bonny Mcarthur PA 8150 [facility] 17 [facility] 105 [place] [address] Call Patient Social History Tobacco Use Types Packs/Day Years Used Date Smoking Tobacco: Former Cigarettes 1 27 0 05/31/1969 - 05/31/1996 Smokeless Tobacco: Never Alcohol Use Standard Drinks/Week Comments Yes 4 (1 standard drink = 0.6 oz pur e alcohol) [facility] Utilities Answer Date Recorded In the past 12 months has [employer], gas, oil, or water [employer] threatened to shut off services in your [...] Visit Neurology - [facility] [address] [facility] [address] [place] [address] Martell Calderon MD 2[address] [facility] [address] [place], [place] [phone] TREMORS/ MEDICARE, FOR LIFE 03/28/2024 8:30 AM EDT Office Visit Primary Care - [address] [address] Cheo Santoyo [address] [address] AWV 04/06/2024 9:45 AM EST Lab [facility] - [facility] [address] [facility] [address] [place] [address] CBCMP,CEA,FEST 04/06/2024 10:15 AM EST Office Visit [facility] - [facility] [address] [facility] [address] [place] [address] Georgi Butterfield MD 3510 [facility] [address] [facility] [address] [place] [address] 6 MTH FU W/LABS, REV SCAN 04/13/2024 9:30 AM EST Office Visit Surgical Oncology - [facility] [address] [facility] [address] [place] [address] Delvis Cheek MD 125 [facility] 660 [place] [phone] 1 YEAR F/U [facility] 06/19/2024 10:30 AM EST Office Visit Orthopaedics- Les Valencia [address] [facility] 100 [place] [address] Karly Bautista, BURT 180 [facility] [address] [place] [address] annual visit from date of surgery May/Jul 2024 for bilateral TKA and right LIZZ with Karly. documented as of this encounter Visit Diagnoses Not on filedocumented in this encounter Additional Health Concerns Assessment Noted Time A fall risk assessment has been complete d for the patient 07/06/2023 9:36 AM EST documented as of this encounter Care Teams Facilities Officer Relationship Specialty Start Date End Date Cheo Santoyo DO [address] [place] [phone] PCP - General Family Medicine 07/06/23 documented as of this encounter
--- OUTSIDE RECORDS SUMMARY | 2024-01-13 21:14 | XMS_ITS | Encounter Summary ---
Author Organization Jose Alejandro Pantoja [facility] Address [address] [place] [address] Care Team Providers Care Senior Customer Service Representative Name Role Phone Cheo Santoyo Primary Care Provider [phone] Encounter Details Date Type Department Care Team [...] Visit Neurology - [facility] [address] [facility] [address] [place] [address] Martell Calderon MD 2144 [facility] [address] [place] [address] TREMORS/ MEDICARE, FOR LIFE 03/28/2024 8:30 AM EDT Office Visit Primary Care - [address] [address] Cheo Santoyo DO [address] [place] [phone] AWV 04/06/2024 9:45 AM EST Lab [facility] - [facility] [address] [facility] [address] [place] [address] CBCMP,CEA,FEST 04/06/2024 10:15 AM EST Office Visit [facility] - [facility] [address] [facility] [address] [place] [address] Georgi Butterfield MD [address] [place] [address] 6 MTH FU W/LABS, REV SCAN 04/13/2024 9:30 AM EST Office Visit Surgical Oncology - [facility] [address] [facility] [address] [place] [address] Delvis Cheek MD 125 [facility] [address] [place] [address] 1 YEAR F/U [facility] 06/19/2024 10:30 AM EST Office Visit Orthopaedics- Les Valencia 615 [facility] 100 [place] [phone] Karly Bautista, PA 180 [facility] [address] [place] [address] annual visit from date of surgery May/Jul 2024 for bilateral TKA and right LIZZ with Karly. documented as of this encounter Visit Diagnoses Not on filedocumented in this encounter Additional Health Concerns Assessment Noted Time A fall risk assessment has been complete d for the patient 07/06/2023 9:36 AM EST documented as of this encounter Care Teams Senior Customer Service Representative Relationship Specialty Start Date End Date Cheo Santoyo DO [address] [place] [phone] PCP - General Family Medicine 07/06/23 documented as of this encounter
--- OUTSIDE RECORDS SUMMARY | 2024-01-13 21:14 | XMS_ITS | Encounter Summary ---
Author Organization Jose Alejandro Pantoja [facility] Address [address] [place] [address] Care Team Providers Care Clinical Director Name Role Phone Cheo Santoyo DO Primary Care Provider Reason for Visit * Reason Onset Date Comments Med Refill Clerical 09/03/2023 Encounter Details Date Type Department Care Team ([facility] Contact Info) Description 09/03/2023 Telephone Primary Care - [address] [phone] Cheo Santoyo DO [address] [place] [phone] Med Refill Clerical Social History Tobacco [...] AM EDT Office Visit Neurology - [facility] [address] [facility] [address] [place] [address] Martell Calderon MD 214 [facility] [address] [place] [address] TREMORS/ MEDICARE, FOR LIFE 03/28/2024 8:30 AM EDT Office Visit Primary Care - [address] [address] Cheo Santoyo DO [address] [place] [phone] AWV 04/06/2024 9:45 AM EST Lab [facility] - [facility] [address] [facility] [address] [place] [address] CBCMP,CEA,FEST 04/06/2024 10:15 AM EST Office Visit [facility] - [facility] [address] [facility] [address] [place] [address] Georgi Butterfield MD [address] [place] [address] 6 MTH FU W/LABS, REV SCAN 04/13/2024 9:30 AM EST Office Visit Surgical Oncology - [facility] [address] [facility] [address] [place] [phone] Delvis Cheek MD 125 [facility] [address] [place] [phone] 1 YEAR F/U [facility] 06/19/2024 10:30 AM EST Office Visit Orthopaedics- Les Valencia 615 [facility] [address] [place] [phone] Karly Bautista W, PA [address] [place] [phone] annual visit from date of surgery May/Jul 2024 for bilateral TKA and right LIZZ with Karly. documented as of this encounter Visit Diagnoses Not on filedocumented in this encounter Additional Health Concerns Assessment Noted Time A fall risk assessment has been complete d for the patient 07/06/2023 9:36 AM EST documented as of this encounter Care Teams Clinical Director Relationship Specialty Start Date End Date Cheo Santoyo DO [address] [place] [phone] PCP - General Family Medicine 07/06/23 documented as of this encounter
--- OUTSIDE RECORDS SUMMARY | 2024-01-13 21:14 | XMS_ITS | Encounter Summary ---
Author Organization Jose Alejandro Pantoja [facility] Address [address] [place] [address] Care Team Providers Care Tool Crib Supervisor Name Role Phone Cheo Santoyo Moshe REYES Primary Care Provider [phone] Encounter Details Date Type Department Care Team (Latest Contact Info) Description 10/19/2023 Travel Social History Tobacco Use Types Packs/Day Years Used Date Smoking Tobacco: Former Cigarettes 1 27 0 05/31/1969 - 05/31/1996 Smokeless Tobacco: Never Alcohol Use Standard Drinks/Week Comments Yes 7 (1 standard drink = 0.6 oz pur e alcohol) [facility] Utilities Answer Date Recorded In the past 12 months has [employer], gas, oil, or water company threatened to [...] Neurology - Maryan Flores [address]. [address] [facility] [address] [place] [address] Martell Calderon MD [address] [facility] [address] [place] [address] TREMORS/ MEDICARE, FOR LIFE 03/28/2024 8:30 AM EDT Office Visit Primary Care - [facility] [address] [place] [address] Cheo Santoyo DO 1112 [place] [phone] AWV 04/06/2024 9:45 AM EST [facility] - [facility] 2084 [facility] [address] [place] [phone] CBCMP,CEA,FEST 04/06/2024 10:15 AM EST Office Visit [place] - [facility] 2084 [facility] [address] [place] [address] Georgi Butterfield MD 3510 [facility] [address] [place] [address] 6 MTH FU W/LABS, REV SCAN 04/13/2024 9:30 AM EST Office Visit Surgical Oncology - [facility] 2084 [facility] [address] [place] [address] Delvis Cheek MD 125 [facility] 660 [place] [address] 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 documented as of this encounter Visit Diagnoses Not on filedocumented in this encounter Additional Health Concerns Assessment Noted Time A fall risk assessment has been complete d for the patient 07/06/2023 9:36 AM EST documented as of this encounter Care Teams Tool Crib Supervisor Relationship Specialty Start Date End Date Cheo Santoyo DO [address] [place] [phone] PCP - General Family Medicine 07/06/23 documented as of this encounter
--- OUTSIDE RECORDS SUMMARY | 2024-01-13 21:14 | XMS_ITS | Encounter Summary ---
Author Organization Jose Alejandro Pantoja [facility] Address [address] [place] [address] Care Team Providers Care Balance Truer Name Role Phone Cheo Santoyo DO Primary Care Provider [phone] Reason for Visit * Reason Onset Date Comments Call Patient 10/26/2023 Encounter Details Date Type Department Care Team (Late st Contact Info) Description 10/26/2023 Telephone Orthopaedics - Emy Saeed Dr. [address] [facility] 110, [facility] 105 [place] [address] Maurice Elizabeth PA 0650 [facility] 17 [facility] 105 [place] [address] Call Patient Social History Tobacco Use Types Packs/Day Years Used Date Smoking Tobacco: Former Cigarettes 1 27 0 05/31/1969 - 05/31/1996 Smokeless Tobacco: Never Alcohol Use Standard Drinks/Week Comments Yes 7 (1 standard drink = 0.6 oz pur e alcohol) [facility] Utilities Answer Date Recorded In the past 12 months has [employer], gas, oil, or water [employer] threatened to shut off services in your [...] Neurology - [facility] 2144 [facility] [address] [place] [address] Martell Calderon MD 2144 [facility] [address] [place], [place] [address] TREMORS/ MEDICARE, FOR LIFE 03/28/2024 8:30 AM EDT Office Visit Primary Care - [address] [address] [address]oyo [address] [address] AWV 04/06/2024 9:45 AM EST [facility] [place] - [facility] 2084 [facility] [address] [place] [address] CBCMP,CEA,FEST 04/06/2024 10:15 AM EST Office Visit [place] [facility] - [facility] 2084 [facility] [address] [place] [address] Georgi Butterfield MD 3510 [facility] 17N [facility] 225 [place] [address] 6 MTH FU W/LABS, REV SCAN 04/13/2024 9:30 AM EST Office Visit Surgical Oncology - [facility] 2084 [facility] [address] [place] [address] Delvis Cheek MD 125 [facility] 660 [place] [address] 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 100 [place] [address] Karly Bautista, BURT 180 [facility] 301 [place] [address] annual visit from date of surgery May/Jul 2024 for bilateral TKA and right LIZZ with Karly. documented as of this encounter Visit Diagnoses Not on filedocumented in this encounter Additional Health Concerns Assessment Noted Time A fall risk assessment has been complete d for the patient 07/06/2023 9:36 AM EST documented as of this encounter Care Teams Balance Truer Relationship Specialty Start Date End Date Cheo Santoyo DO [address] [place] [phone] PCP - General Family Medicine 07/06/23 documented as of this encounter
--- OUTSIDE RECORDS SUMMARY | 2024-01-13 21:14 | XMS_ITS | Encounter Summary ---
Author Organization Jose Alejandro Pantoja [facility] Address [address] [place] [address] Care Team Providers Care Chicken Fancier Name Role Phone Cheo Santoyo DO Primary Care Provider [phone] Encounter Details Date Type Department Care Team ([facility] st Contact Info) Description 10/21/2023 Abstract Primary Care - [address] [address] Cheo Santoyo DO [address] [place] [phone] Social History Tobacco Use Types Packs/Day Years Used Date Smoking Tobacco: Former Cigarettes 1 27 0 05/31/1969 - 05/31/1996 Smokeless Tobacco: Never Alcohol Use Standard Drinks/Week Comments Yes 7 (1 standard drink = 0.6 oz pur e alcohol) [facility] Utilities Answer Date Recorded In the past 12 months has [employer], [employer], oil, or water [employer] threatened to shut off services in your [...] EDT Office Visit Neurology - [facility] 2144 [facility] [address] [place] [address] Martell Calderon MD 2144 [facility] [address] [place] [address] TREMORS/ MEDICARE, FOR LIFE 03/28/2024 8:30 AM EDT Office Visit Primary Care - [address] [phone] Cheo Santoyo, DO 1112 [place] [address] AWV 04/06/2024 9:45 AM EST [facility] [place] [facility] - [facility] 2084 [facility] [address] [place] [address] CBCMP,CEA,FEST 04/06/2024 10:15 AM EST Office Visit [place] [facility] - [facility] 2084 [facility] [address] [place] [address] Georgi Butterfield MD 3510 [facility] 17N [facility] 225 [place], [place] [phone] 6 MTH FU W/LABS, REV SCAN 04/13/2024 9:30 AM EST Office Visit Surgical Oncology - [facility] 2084 [facility] [address] [place] [address] Delvis Cheek MD 125 [facility] [address] [place] [address] 1 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 documented as of this encounter Visit Diagnoses Not on filedocumented in this encounter Additional Health Concerns Assessment Noted Time A fall risk assessment has been complete d for the patient 07/06/2023 9:36 AM EST documented as of this encounter Care Teams Chicken Fancier Relationship Specialty Start Date End Date Cheo Santoyo DO [address] [place] [phone] PCP - General Family Medicine 07/06/23 documented as of this encounter
--- OUTSIDE RECORDS SUMMARY | 2024-01-13 21:14 | XMS_ITS | Encounter Summary ---
Author Organization Jose Alejandro liriano [facility] Address [address] [place] [address] Care Team Providers Care Director Of [employer] Name Role Phone Cheo Santoyo DO Primary Care Provider [phone] Reason for Visit * Reason Comments Surgical Clearance Right hip surgery, p t would like to discussTizanidine and Celebrex Encounter Details Date Type Department Care Team (Latest Contact Info) Description 09/02/2023 11:00 AM EDT Office Visit Primary Care - [address] [phone] Cheo Santoyo DO [address] [place] [phone] Osteoarthritis of right hip, unspecified osteoarthritis [...] preperation for a mens hike with his christianity.He noticed he gets catching every while traiing. [...] bundle branch block (LBBB) no longer sees shoe puller, states stress and testing was completed and shoe puller signed off PONV (postoperative nausea and vomiting) Post-operative nausea and vomiting AND STATES BODY TEMP DROPPED TO 94 DEGREES F Sleep apnea MILD AND DOES NOT USE CPAP Spinal stenosis Type 2 diabetes mellitus without complication ([facility]) Past Surgical History: Procedure Laterality Date BACK SURGERY 02/05/1986 laminectomy, discectomy CERVICAL DISCECTOMY 04/18/2007 , cervical fusion 2012 COLONOSCOPY MULTIPLE HAND CARPECTOMY Left 2021 HAND SURGERY Right 2001 debby luanr repair HEMICOLECTOMY 2020 HIP SURGERY Right 06/18/2022 INTRA ARTICULAR HIP RIGHT HIP performed by Martinez Guthrie MD at [facility] HIP SURGERY Bilateral 08/04/2023 INTRA ARTICULAR HIP BILATERAL NO PA REQ performed by Martinez Guthrie MD at [facility] JOINT REPLACEMENT Right 2011 shoulder KIDNEY STONE SURGERY 2009 basket removal KNEE ARTHROSCOPY Left 10/13/2021 multiple knee scopes right and left 1997 thru 2021 SHOULDER SURGERY Right 2010 2011 right hemiarthroplasty SUBTOTAL COLECTOMY 2020 R. Hemicolectomy TOTAL KNEE ARTHROPLASTY Left 12/21/2022 LEFT TOTAL KNEE ARTHROPLASTY, ROBOTIC performed by Maurice Panchal MD at [facility] TOTAL KNEE ARTHROPLASTY Right 03/17/2023 RIGHT TOTAL KNEE ARTHROPLASTY, ROBOTIC performed by Maurice Panchal MD at [facility] UPPER GASTROINTESTINAL ENDOSCOPY 2019 Social [...] time, no major scientific/medical organization including the [place] [employer] and the [place] [employer] have specific recommendations in regard [...] neuropathy, without long-term current use of insulin ([facility]) Benign essential HTN Cervicalgia 1. Osteoarthritis of [...] neuropathy, without long-term current use of insulin ([facility]) Assessment & Plan: Last hemoglobin A1c well-controlled [...] Visit Neurology - [facility] 2144 [facility] [address] [place] [address] Martell Calderon MD 2144 [facility] [address] [place], [place] [address] TREMORS/ MEDICARE, FOR LIFE 03/28/2024 8:30 AM EDT Office Visit Primary Care - [address] [phone] Cheo Santoyo DO [address] [place] [phone] AWV 04/06/2024 9:45 AM EST Lab [place] [facility] - [facility] 2084 [facility] [address] [place] [address] CBCMP,CEA,FEST 04/06/2024 10:15 AM EST Office Visit [place] [facility] - [facility] 2084 [facility] [address] [place] [address] Georgi Butterfield MD [address] [place] [address] 6 MTH FU W/LABS, REV SCAN 04/13/2024 9:30 AM EST Office Visit Surgical Oncology - [facility] 2084 [facility] [address] [place] [address] Delvis Cheek MD 125 [facility] 660 [place] [address] 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
--- OUTSIDE RECORDS SUMMARY | 2024-01-13 21:15 | XMS_ITS | Encounter Summary ---
Author Organization Jose Alejandro Pantoja [facility] Address [address] [place] [address] Care Team Providers Care Recruitment And Outreach Assistant Name Role Phone Felicitas Monaco MD Primary Care Provider [phone] Encounter Details Date Type Department Care Team [...] Neurology - [facility] 2144 [facility] [address] [place] [address] Martell Calderon MD 2144 [facility] [address] [place] [address] TREMORS/ MEDICARE, FOR LIFE 03/28/2024 8:30 AM EDT Office Visit Primary Care - [address] [phone] [place] [address] [place] [address] AWV 04/06/2024 9:45 AM EST Lab [place] [facility] - [facility] 2084 [facility] [address] [place] [address] CBCMP,CEA,FEST 04/06/2024 10:15 AM EST Office Visit [place] [facility] - [facility] 2084 [facility] [address] [place] [address] Georgi Butterfield MD 3510 [facility] [address] [place], [place] [address] 6 MTH FU W/LABS, REV SCAN 04/13/2024 9:30 AM EST Office Visit Surgical Oncology - [facility] 2084 [facility] [address] [place] [address] Delvis Cheek MD 125 [facility] [address] [place] [address] 1 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 documented as of this encounter Visit Diagnoses Not on filedocumented in this encounter Additional Health Concerns Assessment Noted Time A fall risk assessment has been complete d for the patient 02/26/2023 9:45 AM EDT documented as of this encounter Care Teams Recruitment And Outreach Assistant Relationship Specialty Start Date End Date Felicitas Monaco MD PCP - General Family Medicine 06/18/22 07/05/23 documented as of this encounter
--- OUTSIDE RECORDS SUMMARY | 2024-01-13 21:15 | XMS_ITS | Encounter Summary ---
Author Organization Jose Alejandro Raymundolinnea Rushingmarysol liriano [facility] Address [address] [place] [address] Care Team Providers Care Metal Plater Name Role Phone Felicitas Monaco MD Primary Care Provider [phone] Reason for Visit * Reason Onset Date Comments Medication Refill 05/26/2023 Encounter Details Date Type Department Care Team (Late st Contact Info) Description 05/26/2023 Refill Primary Care - [address] - [address] 2096 [facility] [address] [place] [address] Ninfa Hernandez APRN - BOW STAPLER [address] [facility] [address] [place] [address] Medication Refill Social History Tobacco [...] Visit Neurology - [facility] 2144 [facility] [address] [place] [address] Martell Calderon MD 2144 [facility] [address] [place], [place] [address] TREMORS/ MEDICARE, FOR LIFE 03/28/2024 8:30 AM EDT Office Visit Primary Care - [address] [phone] Cheo Santoyo, DO [address] [place] [phone] AWV 04/06/2024 9:45 AM EST Lab [place] [facility] - [facility] 2084 [facility] [address] [place] [address] CBCMP,CEA,FEST 04/06/2024 10:15 AM EST Office Visit [place] [facility] - [facility] 2084 [facility] [address] [place] [address] Georgi Butterfield MD [address] [place], [place] [phone] 6 MTH FU W/LABS, REV SCAN 04/13/2024 9:30 AM EST Office [facility] 2084 [facility] [address] [place] [address] Delvis Cheek MD 125 [facility] 660 [place] [address] 1 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 documented as of this encounter Visit Diagnoses Not on filedocumented in this encounter Additional Health Concerns Assessment Noted Time A fall risk assessment has been complete d for the patient 02/26/2023 9:45 AM EDT documented as of this encounter Care Teams Metal Plater Relationship Specialty Start Date End Date Felicitas Monaco MD PCP - General Family Medicine 06/18/22 07/05/23 documented as of this encounter
--- OUTSIDE RECORDS SUMMARY | 2024-01-13 21:15 | XMS_ITS | Encounter Summary ---
Author Organization Jose Alejandro Pantoja Krist[facility]marysol liriano [facility] Address [address] [place] [address] Care Team Providers Care Kick Press Operator Name Role Phone Felicitas Monaco MD Primary Care Provider [phone] Reason for Visit * Reason Comments Follow-up R TKA; 6 WK F/U Encounter Details Date Type Department Care Team (Late st Contact Info) Description 06/04/2023 3:00 PM EST Office Visit Orthopaedics - Maryan Jacobsen Dr. [address] [place] [address] Bridgett Zuniga, HANDKERCHIEF SAMPLE CLERK - STATE'S ATTORNEY Presence of artificial knee joint, right (Primary [...] this encounter Progress Notes * Bridgett Zuniga, HANDKERCHIEF SAMPLE CLERK - STATE'S ATTORNEY - 06/04/2023 2:48 PM EST Images from [...] use as needed. 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 Patient will monitor [...] Dr. [address] [place] [address] Martell Calderon MD 214 [facility] [address] [place] [address] TREMORS/ MEDICARE, FOR LIFE 03/28/2024 8:30 AM EDT Office Visit Primary Care - [address] [phone] Cheo Santoyo DO [address] [place] [phone] AWV 04/06/2024 9:45 AM EST Lab [place] [facility] - [address] 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 [address] [place] [address] Karly Bautista PA [address] [place] [address] annual visit from date of surgery May/Jul 2024 for bilateral TKA and right LIZZ with Karly. documented as of this encounter Visit Diagnoses Diagnosis Presence of artificial knee joint, right- Primary documented in this encounter Additional Health Concerns Assessment Noted Time A fall risk assessment has been complete d for the patient 02/26/2023 9:45 AM EDT documented as of this encounter Care Teams Kick Press Operator Relationship Specialty Start Date End Date Felicitas Monaco MD PCP - General Family Medicine 06/18/22 07/05/23 documented as of this encounter
--- OUTSIDE RECORDS SUMMARY | 2024-01-13 21:15 | XMS_ITS | Encounter Summary ---
Author Organization Jose Alejandro [facility] Address [address] [place] [address] Care Team Providers Care Hot Dip Plater Name Role Phone Felicitas Monaco MD Primary Care Provider [phone] Reason for Visit * Reason Comments Post-Op Check R TKA Encounter Details Date Type Department Care Team (Late st Contact Info) Description 04/16/2023 1:45 PM EST Office Visit Orthopaedics - Maryan Jacobsen Dr. [address] [place] [address] Marquise Moses, INDUSTRIAL SAFETY AND HEALTH MANAGER - ANODE WORKER Presence of artificial knee joint, right (Primary [...] of this encounter Progress Notes * Marquise Moess, INDUSTRIAL SAFETY AND HEALTH MANAGER - ANODE WORKER - 04/16/2023 1:46 PM EST Images from [...] 9:00 AM EDT Office Visit Neurology - [facility] [place] [address] [facility] [address] [place] [address] Martell Calderon MD 214 [facility] [address] [place] [address] TREMORS/ MEDICARE, FOR LIFE 03/28/2024 8:30 AM EDT Office Visit Primary Care - [address] [address] Cheo Santoyo DO [address] [place] [address] AWV 04/06/2024 9:45 AM EST [place] [facility] - [facility] [place] [address] [facility] [address] [place] [address] CBCMP,CEA,FEST 04/06/2024 10:15 AM EST Office [facility] H[facility] & Oncology [facility] [address] [facility] [address] [place] [address] Georgi Butterfield MD [address] [place] [address] 6 MTH FU W/LABS, REV SCAN 04/13/2024 9:30 AM EST Office Visit Surgical Oncology - [facility] [place] [address] [facility] [address] [place] [address] Delvis Cheek MD 125 [facility] [address] [place] [address] 1 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 06/19/2024 10:30 AM EST Office Visit Orthopaedics- Les Valencia 615 [facility] [address] [place] [address] Karly Bautista PA [address] [place] [address] annual visit from date of [...] any issues or concerns Marquise Moses INDUSTRIAL SAFETY AND HEALTH MANAGER - ANODE WORKER IMG DIAGNOST IC IMAGING ORDERABLES documented in this encounter Visit Diagnoses Diagnosis Presence of artificial knee joint, right- Primary documented in this encounter Additional Health Concerns Assessment Noted Time A fall risk assessment has been complete d for the patient 02/26/2023 9:45 AM EDT documented as of this encounter Care Teams Hot Dip Plater Relationship Specialty Start Date End Date Felicitas Monaco MD PCP - General Family Medicine 06/18/22 07/05/23 documented as of this encounter
--- OUTSIDE RECORDS SUMMARY | 2024-01-13 21:15 | XMS_ITS | Encounter Summary ---
Author Organization Jose Alejandro Pantoja [facility] Address [address] [place] [address] Care Team Providers Care Chemical Research Technician Name Role Phone Cheo Santoyo Primary Care Provider [phone] Encounter Details Date Type Department Care Team (Late st Contact Info) Description 03/26/2023 Home Visit [facility] Maurice Panchal MD [address] [address] Social History Tobacco Use Types Packs/Day Years [...] Neurology - [facility] [address] [facility] [address] [place] [address] Martell Calderon MD 2144 [facility] [address] [place] [address] TREMORS/ MEDICARE, FOR LIFE 03/28/2024 8:30 AM EDT Office Visit Primary Care - [address] [address] Che[address]oyo [address] [address] AWV 04/06/2024 9:45 AM EST [facility] [place] [facility] - [facility] [address] [facility] [address] [place] [address] CBCMP,CEA,FEST 04/06/2024 10:15 AM EST Office Visit [place] [facility] - [facility] [address] [facility] [address] [place] [address] Georgi Butterfield MD 3510 [facility] [address] [place] [address] 6 MTH FU W/LABS, REV SCAN 04/13/2024 9:30 AM EST Office Visit Surgical Oncology - [facility] 20[address] [facility] [address] [place] [address] Delvis Cheek MD 125 [facility] 660 [place] [address] 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 100 [place] [address] Karly Bautista, BURT 180 [facility] 301 [place] [address] annual visit from date of surgery May/Jul 2024 for bilateral TKA and right LIZZ with Karly. documented as of this encounter Visit Diagnoses Not on filedocumented in this encounter Additional Health Concerns Assessment Noted Time A fall risk assessment has been complete d for the patient 02/26/2023 9:45 AM EDT documented as of this encounter Care Teams Chemical Research Technician Relationship Specialty Start Date End Date Cheo Santoyo DO [address] [place] [phone] PCP - General Family Medicine 07/06/23 documented as of this encounter
--- OUTSIDE RECORDS SUMMARY | 2024-01-13 21:15 | XMS_ITS | Encounter Summary ---
Author Organization Jose Alejandro Pantoja [facility] Address [address] [place] [address] Care Team Providers Care Makeup Sales Consultant Name Role Phone Cheo Santoyo Primary Care Provider [phone] Encounter Details Date Type Department Care Team (Late st Contact Info) Description 06/22/2023 Abstract [facility] Hematology & Oncology - [facility]. [address] [facility] [address] [place] [address] Georgi Butterfield MD [address] [place] [address] Social History Tobacco Use Types [...] 9:00 AM EDT Office Visit Neurology - [facility] [address] [facility] [address] [place] [address] Martell Calderon MD 2144 [facility] [address] [place] [address] TREMORS/ MEDICARE, FOR LIFE 03/28/2024 8:30 AM EDT Office Visit Primary Care - [address] [address] Cheo Santoyo DO [address] [place] [address] AWV 04/06/2024 9:45 AM EST Lab [place] [facility] - [facility] 20[address] [facility] [address] [place] [address] CBCMP,CEA,FEST 04/06/2024 10:15 AM EST Office Visit [place] [facility] - [facility] [address] [facility] [address] [place] [address] Georgi Butterfield MD [address] [place] [address] 6 MTH FU W/LABS, REV SCAN 04/13/2024 9:30 AM EST Office Visit Surgical Oncology - [facility] [address] [facility] [address] [place] [address] Delvis hCeek MD 125 [facility] [address] [place] [address] 1 YEAR F/U ADENOCARCINOMA OF THE CECUM 06/19/2024 10:30 AM EST Office Visit Orthopaedics- Les Valencia 615 [facility] 100 [place] [phone] Karly Bautista, BURT 180 [facility] 301 [place] [phone] annual visit from date of surgery May/Jul 2024 for bilateral TKA and right LIZZ with Karly. documented as of this encounter Visit Diagnoses Not on filedocumented in this encounter Additional Health Concerns Assessment Noted Time A fall risk assessment has been complete d for the patient 02/26/2023 9:45 AM EDT documented as of this encounter Care Teams Makeup Sales Consultant Relationship Specialty Start Date End Date Cheo Santoyo DO [address] [place] [phone] PCP - General Family Medicine 07/06/23 documented as of this encounter
--- OUTSIDE RECORDS SUMMARY | 2024-01-13 21:15 | XMS_ITS | Encounter Summary ---
Author Organization Jose Alejandro [facility] Address [address] [place] [address] Care Team Providers Care Soda Worker Name Role Phone Felicitas Monaco MD Primary Care Provider [phone] Reason for Referral * Imaging (Routine) - Open Specialty Diagnoses / Procedures Referred By [facility] Referred To Contact Radiology Diagnoses Carcinoma of ascending colon (HCC) Adenocarcinoma of cecum (HCC) Malignant neoplasm of intestine (HCC) Procedures CT ABDOMEN PELVIS W IV CONTRAST Additional Contrast? None Georgi Butterfield MD [address] [place] [address] Referral ID Status Reason Start Date Expiration Date Visits Re quested Visits Authorized [id number] Open 04/07/2023 04/06/2024 1 1 * Imaging (Routine) - Open Specialty Diagnoses / Procedures [facility] Referred To Contact Radiology Diagnoses Carcinoma of ascending colon (HCC) Adenocarcinoma of cecum (HCC) Malignant neoplasm of intestine (HCC) Procedures CT CHEST W CONTRAST Georgi Butterfield MD [address] [place] [address] Referral ID Status Reason Start Date Expiration Date Visits Re quested Visits Authorized [id number] Open 04/07/2023 04/06/2024 1 1 Reason for Visit * Imaging (Routine) - Open Specialty Diagnoses / Procedures Referred By Rachid t Referred To Contact Radiology Diagnoses Carcinoma of ascending colon (HCC) Adenocarcinoma of cecum (HCC) Malignant neoplasm of intestine (HCC) Procedures CT ABDOMEN PELVIS W IV CONTRAST Additional Contrast? None Georgi Butterfield MD 3510 [facility] [address] [facility] 225 [place] [address] Referral ID Status Reason Start Date Expiration Date Visits Re quested Visits Authorized [id number] Open 04/07/2023 04/06/2024 1 1 Encounter Details Date Type Department Care Team (Latest Contact Info) Description 04/07/2023 10:04 AM EST - 04/07/2023 11:59 PM EST Hospital Encounter [facility] [address] [place] [address] Georgi Butterfield MD [address] [place] [address] Carcinoma of ascending colon (HCC); Adenocarcinoma of [...] Visit Neurology - [facility] [address] [facility] [address] [place] [address] Martell Calderon MD 2144 [facility] [address] [place] [address] TREMORS/ MEDICARE, FOR LIFE 03/28/2024 8:30 AM EDT Office Visit Primary Care - [facility] [address] [place] [phone] Cheo Santoyo DO [address] [place] [address] AWV 04/06/2024 9:45 AM EST Lab [place] [facility] - [facility] [address] [facility] [address] [place] [address] CBCMP,CEA,FEST 04/06/2024 10:15 AM EST Office Visit [place] [facility] - [facility] [address] [facility] [address] [place] [address] Georgi Butterfield MD 3510 [facility] [address] [place] [address] 6 MTH FU W/LABS, REV SCAN 04/13/2024 9:30 AM EST Office Visit Surgical Oncology - [facility] [address] [facility] [address] [place] [address] Delvis Cheek MD [address] [facility] [address] [place] [address] 1 YEAR F/U ADENOCARCINOMA OF THE CECUM 06/19/2024 10:30 AM EST Office Visit Orthopaedics- Les Valencia 615 [facility] [address] [place] [address] Karly Bautista W, BURT [address] [place] [address] annual visit from date of [...] recurrent or metastatic disease. Georgi Butterfield MD [facility] [place] ORDERABLES * CT CHEST W CONTRAST [...] documented as of this encounter Care Teams Soda Worker Relationship Specialty Start Date End Date Felicitas Monaco MD PCP - General Family Medicine 06/18/22 07/05/23 documented as of this encounter
--- OUTSIDE RECORDS SUMMARY | 2024-01-13 21:15 | XMS_ITS | Encounter Summary ---
Author Organization Jose Alejandro Pantoja [facility] Address [address] [place] [address] Care Team Providers Care Plunger Scoop Operator Name Role Phone Cheo Santoyo Primary Care Provider [phone] Encounter Details Date Type Department Care Team (Late st Contact Info) Description 06/28/2023 Abstract [facility] Hematology & Oncology - [facility]. [address] [facility] [address] [place] [address] Georgi Butterfield MD [address] [place] [address] Social History Tobacco Use Types [...] Neurology - [facility] [address] [facility] [address] [place] [address] Martell Calderon MD 2144 [facility] [address] [place] [address] TREMORS/ MEDICARE, FOR LIFE 03/28/2024 8:30 AM EDT Office Visit Primary Care - [address] [address] Cheo Santoyo DO [address] [place] [address] AWV 04/06/2024 9:45 AM EST Lab [place] [facility] - [facility] [address] [facility] [address] [place] [address] CBCMP,CEA,FEST 04/06/2024 10:15 AM EST Office Visit [place] [facility] - [facility] [address] [facility] [address] [place] [address] Georgi Butterfield MD [address] [place] [address] 6 MTH FU W/LABS, REV SCAN 04/13/2024 9:30 AM EST Office Visit Surgical Oncology - [facility] [address] [facility] [address] [place] [address] Delvis Cheek MD 125 [facility] [address] [place] [address] 1 YEAR F/U ADENOCARCINOMA OF THE CECUM 06/19/2024 10:30 AM EST Office Visit Orthopaedics- Les Valencia 615 [facility] 100 [place] [address] Karly Bautista, BURT 180 [place] [facility] 301 [place] [address] annual visit from date of surgery May/Jul 2024 for bilateral TKA and right LIZZ with Karly. documented as of this encounter Visit Diagnoses Not on filedocumented in this encounter Additional Health Concerns Assessment Noted Time A fall risk assessment has been complete d for the patient 02/26/2023 9:45 AM EDT documented as of this encounter Care Teams Plunger Scoop Operator Relationship Specialty Start Date End Date Cheo Santoyo DO [address] [place] [phone] PCP - General Family Medicine 07/06/23 documented as of this encounter
--- OUTSIDE RECORDS SUMMARY | 2024-01-13 21:15 | XMS_ITS | Encounter Summary ---
Author Organization Jose Alejandro Pantoja [facility] Address [address] [place] [address] Care Team Providers Care Wardrobe Manager Name Role Phone Felicitas Monaco MD Primary Care Provider [phone] Encounter Details Date Type Department Care Team (Late st Contact Info) Description 03/17/2023 Prep for Procedure Orthopaedics - [place] [id number] [phone] Bonny Mcarthur PA [facility] [address] [address] Social History Tobacco Use Types Packs/Day Years [...] Visit Neurology - [facility] [address] [facility] [address] [place] [address] Martell Calderon MD 2144 [facility] [address] [place] [address] TREMORS/ MEDICARE, FOR LIFE 03/28/2024 8:30 AM EDT Office Visit Primary Care - [address] [address] Cheo Santoyo DO [address] [place] [address] AWV 04/06/2024 9:45 AM EST Lab [place] [facility] - [facility] [address] [facility] [address] [place] [address] CBCMP,CEA,FEST 04/06/2024 10:15 AM EST Office Visit [place] [facility] - [facility] [address] [facility] [address] [place] [address] Georgi Butterfield MD [address] [place] [address] 6 MTH FU W/LABS, REV SCAN 04/13/2024 9:30 AM EST Office Visit Surgical Oncology - [facility] [address] [facility] [address] [place] [address] Delvis Cheek MD 125 [facility] [address] [place] [address] 1 YEAR F/U ADENOCARCINOMA OF THE CECUM 06/19/2024 10:30 AM EST Office Visit Orthopaedics- Les Valencia 615 [facility] 100 [place] [address] Karly Bautista, BURT 180 [facility] 301 [place] [address] annual visit from date of surgery May/Jul 2024 for bilateral TKA and right LIZZ with Karly. documented as of this encounter Visit Diagnoses Not on filedocumented in this encounter Additional Health Concerns Assessment Noted Time A fall risk assessment has been complete d for the patient 02/26/2023 9:45 AM EDT documented as of this encounter Care Teams Wardrobe Manager Relationship Specialty Start Date End Date Felicitas Monaco MD PCP - General Family Medicine 06/18/22 07/05/23 documented as of this encounter
--- OUTSIDE RECORDS SUMMARY | 2024-01-13 21:15 | XMS_ITS | Encounter Summary ---
Author Organization Jose Alejandro Pantoja [facility] Address [address] [place] [address] Care Team Providers Care Supply Analyst Name Role Phone Cheo Santoyo DO Primary Care Provider [phone] Encounter Details Date Type Department Care Team ([facility] st Contact Info) Description 07/21/2023 Abstract Primary Care - [address] [address] Cheo Santoyo DO [address] [place] [address] Social History Tobacco Use Types Packs/Day [...] Upcoming Encounters Date Type Department Care Team ([facility] st Contact Info) Description 03/24/2024 9:00 AM EDT Office Visit Neurology - [facility] [address] [facility] [address] [place] [address] Martell Calderon MD 2144 [facility] [address] [place] [address] TREMORS/ MEDICARE, FOR LIFE 03/28/2024 8:30 AM EDT Office Visit Primary Care - [address] [address] Cheo Santoyo [address] [address] AWV 04/06/2024 9:45 AM EST Lab [place] [facility] - [facility] [address] [facility] [address] [place] [address] CBCMP,CEA,FEST 04/06/2024 10:15 AM EST Office Visit [place] [facility] - [facility] 20[address] [facility] [address] [place] [address] Georgi Butterfield MD 3510 [facility] [address] [place], [place] [address] 6 MTH FU W/LABS, REV SCAN 04/13/2024 9:30 AM EST Office Visit Surgical Oncology - [facility] 2084 [facility] [address] [place] [address] Delvis Cheek MD 125 [facility] 660 [place] [address] 1 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 100 [place] [phone] Karly Bautista, PA 180 [facility] 301 [place] [address] annual visit from date of surgery May/Jul 2024 for bilateral TKA and right LIZZ with Karly. documented as of this encounter Visit Diagnoses Not on filedocumented in this encounter Additional Health Concerns Assessment Noted Time A fall risk assessment has been complete d for the patient 07/06/2023 9:36 AM EST documented as of this encounter Care Teams Supply Analyst Relationship Specialty Start Date End Date Cheo Santoyo DO [address] [place] [phone] PCP - General Family Medicine 07/06/23 documented as of this encounter
--- OUTSIDE RECORDS SUMMARY | 2024-01-13 21:15 | XMS_ITS | Encounter Summary ---
Author Organization Jose Alejandro Pantoja [facility] Address [address] [place] [address] Care Team Providers Care Motorcycle Racer Name Role Phone Felicitas Monaco MD Primary Care Provider [phone] Encounter Details Date Type Department Care Team (Late st Contact Info) Description 04/16/2023 2:05 PM EST Ancillary Procedure Orthopaedics - Maryan Jacobsen Dr. [address] [place] [address] Social History Tobacco Use Types Packs/Day Years [...] Visit Neurology - [facility] 2144 [facility] [address] [place] [address] Martell Calderon MD 214 [facility] [address] [place] [address] TREMORS/ MEDICARE, FOR LIFE 03/28/2024 8:30 AM EDT Office Visit Primary Care - [address] [address] Cheo Santoyo DO 1112 [place] [address] AWV 04/06/2024 9:45 AM EST Lab [place] [facility] - [facility] 2084 [facility] [address] [place] [address] CBCMP,CEA,FEST 04/06/2024 10:15 AM EST Office Visit [place] [facility] - [facility] 20[address] [facility] [address] [place] [address] Georgi Butterfield MD [address] [place] [address] 6 MTH FU W/LABS, REV SCAN 04/13/2024 9:30 AM EST Office Visit Surgical Oncology - [facility] 20[address] [facility] [address] [place] [address] Delvis Cheek MD 125 [facility] [address] [place] [address] 1 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/U ADENOCARCINOMA OF THE CECUM 06/19/2024 10:30 AM EST Office Visit Orthopaedics- Les Valencia [facility] 100 [place] [address] Karly Bautista, BURT [address] [place] [address] annual visit from date [...] without any issues or concerns Marquise Moses SUMMER LAW CLERK - PRESCHOOL DIRECTOR IMG DIAGNOST IC IMAGING ORDERABLES documented in this encounter Visit Diagnoses Not on filedocumented in this encounter Additional Health Concerns Assessment Noted Time A fall risk assessment has been complete d for the patient 02/26/2023 9:45 AM EDT documented as of this encounter Care Teams Motorcycle Racer Relationship Specialty Start Date End Date Felicitas Monaco MD PCP - General Family Medicine 06/18/22 07/05/23 documented as of this encounter
--- OUTSIDE RECORDS SUMMARY | 2024-01-13 21:15 | XMS_ITS | Encounter Summary ---
Author Organization Jose Alejandro Pantoja [facility] Address [address] [place] [address] Care Team Providers Care Interior Decorator Paperhanging Name Role Phone Felicitas Monaco MD Primary Care Provider [phone] Reason for Visit * Reason Comments Follow-up Encounter Details Date Type Department Care Team (Latest Contact Info) Description 04/15/2023 9:45 AM EST Office Visit Surgical Oncology - [facility] [address] [facility] [address] [place] [address] Delvis Cheek MD [address] [place] [phone] Adenocarcinoma of cecum (HCC) (Primary Dx); [...] last week. He follows closely with his senior ui ux designer Dr. Sagastume as well. Patient is asymptomatic [...] Neurology - Maryan Flores Dr. [address] [facility] [facility] [address] [place] [address] Martell Calderon MD 2[address] [facility] [address] [place], [place] [address] TREMORS/ MEDICARE, FOR LIFE 03/28/2024 8:30 AM EDT Office Visit Primary Care - [address] [phone] Cheo Santoyo DO [address]12 [place] [phone] AWV 04/06/2024 9:45 AM EST [facility] [address] [facility] [address] [place] [phone] CBCMP,CEA,FEST 04/06/2024 10:15 AM EST Office Visit [facility] - [facility] [address] [facility] [address] [place] [address] Georgi Butterfield MD [address] [place] [address] 6 MTH FU W/LABS, REV SCAN 04/13/2024 9:30 AM EST Office Visit Surgical Oncology - [facility] [address] [facility] [address] [place] [address] Delvis Cheek MD 125 [facility] [address] [place] [phone] 1 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
--- OUTSIDE RECORDS SUMMARY | 2024-01-13 21:15 | XMS_ITS | Encounter Summary ---
Author Organization Jose Alejandro [facility] Address [address] [place] [address] Care Team Providers Care Neurophysiological Technician Name Role Phone Yarelis Cheo Moshe REYES Primary Care Provider [phone] Reason for Visit * Auth/Cert (Routine) Specialty Diagnoses / Procedures Referred By Rachid t Referred To Contact Diagnoses Right hip pain Right hip pain [M25.551] Procedures UT ARTHROCENTESIS ASPIR&/INJ MAJOR JT/BURSA W/O US [place]TRA [place] [address] [place] [phone] [address] Referral ID Status Reason Start Date Expiration Date Visits Re quested Visits Authorized [id number] 1 1 Encounter Details Date Type Department Care Team (Late st Contact Info) Description 08/04/2023 9:28 AM EST - 08/04/2023 10:37 AM EST Hospital Encounter [facility] OR 20[address] [place] [address] Martinez Guthrie MD [address] [place] [phone] Discharge Disposition: Home or Self Care [...] Everywhere. * Bursa Injection: Trochanteric: General Info (Lebanese) * RICE: General Info (Lebanese) documented in this encounter Medications at Time [...] Office Visit Neurology - Maryan Jacobsen Dr. [address] [place] [address] Martell Calderon MD 2143 [facility] [address] [place] [address] TREMORS/ MEDICARE, FOR LIFE 03/28/2024 8:30 AM EDT Office Visit Primary Care - [address] [place] [address] Cheo Santoyo, [address] [place] [phone] AWV 04/06/2024 9:45 AM EST Lab [facility] - [facility] [address] [facility] [address] [place] [address] CBCMP,CEA,FEST 04/06/2024 10:15 AM EST Office Visit [facility] - [facility] [address] [facility] [address] [place] [address] Georgi Butterfield MD [address] [place] [address] 6 MTH FU W/LABS, REV SCAN 04/13/2024 9:30 AM EST Office Visit Surgical Oncology - [facility] [address] [facility] [address] [place] [address] Delvis Cheek MD [address] [facility] [address] [place] [address] 1 YEAR F/U ADENOCARCINOMA OF THE CECUM 06/19/2024 10:30 AM EST Office Visit Orthopaedics- [place] Valencia 615 [facility] [address] [place] [phone] Karly Bautista, BURT [address] [place] [address] annual visit from date of surgery May/Jul 2024 for bilateral TKA and right LIZZ with Karly. documented as of this encounter Procedures Procedure Name Priority Date/Time Associated Diagnosis Comments UT ARTHROCENTESIS ASPIR&/INJ MAJOR JT/BURSA W/O US 08/04/2023 [...] documented as of this encounter Care Teams Neurophysiological Technician Relationship Specialty Start Date End Date Cheo Santoyo DO [address] [place] [phone] PCP - General Family Medicine 07/06/23 documented as of this encounter
--- OUTSIDE RECORDS SUMMARY | 2024-01-13 21:15 | XMS_ITS | Encounter Summary ---
Author Organization Jose Alejandro Pantoja [facility] Address [address] [place] [address] Care Team Providers Care Plastics Seasoner Operator Name Role Phone Cheo Santoyo Moshe REYES Primary Care Provider [phone] Encounter Details Date Type Department Care Team (Late st Contact Info) Description 08/17/2023 Orders Only Orthopaedics - [address] [phone] Bonny Mcarthur [facility] [address] [address] Right hip pain (Primary Dx) Social History [...] - [facility] [address] [facility] [address] [place] [address] Martell Calderon MD 214 [facility] [address] [place] [address] TREMORS/ MEDICARE, FOR LIFE 03/28/2024 8:30 AM EDT Office Visit Primary Care - [address] [address] Cheo Santoyo, [address] [place] [phone] AWV 04/06/2024 9:45 AM EST [facility] - [facility] [address] [facility] [address] [place] [address] CBCMP,CEA,FEST 04/06/2024 10:15 AM EST Office Visit [facility] - [facility] [address] [facility] [address] [place] [address] Georgi Butterfield MD 3510 [facility] [address] [place] [phone] 6 MTH FU W/LABS, REV SCAN 04/13/2024 9:30 AM EST Office Visit Surgical Oncology - [facility] [address] [facility] [address] [place] [phone] Delvis Cheek MD [address] [facility] [address] [place] [address] 1 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
--- OUTSIDE RECORDS SUMMARY | 2024-01-13 21:15 | XMS_ITS | Encounter Summary ---
Author Organization Jose Alejandro Pantoja [facility] Address [address] [place] [address] Care Team Providers Care Casing Tier Name Role Phone Cheo Santoyo DO Primary Care Provider [phone] Encounter Details Date Type Department Care Team ([facility] st Contact Info) Description 07/21/2023 Abstract Primary Care - [address] [phone] Cheo Santoyo DO [address] [place] [phone] Social History Tobacco Use Types Packs/Day [...] Upcoming Encounters Date Type Department Care Team ([facility] st Contact Info) Description 03/24/2024 9:00 AM EDT Office Visit Neurology - [facility] [address] [facility] [address] [place] [phone] Martell Calderon MD 2144 [facility] [address] [place] [address] TREMORS/ MEDICARE, FOR LIFE 03/28/2024 8:30 AM EDT Office Visit Primary Care - [address] [address] Cheo Santoyo [address] [address] AWV 04/06/2024 9:45 AM EST Lab [facility] - [facility] 20[address] [facility] [address] [place] [address] CBCMP,CEA,FEST 04/06/2024 10:15 AM EST Office Visit [facility] - [facility] [address] [facility] [address] [place] [address] Georgi Butterfield MD 3510 [facility] [address] [place], [place] [phone] 6 MTH FU W/LABS, REV SCAN 04/13/2024 9:30 AM EST Office Visit Surgical Oncology - [facility] [address] [facility] [address] [place] [address] Delvis Cheek MD 125 [facility] 660 [place] [address] 1 YEAR F/U ADENOCARCINOMA OF THE CECUM 06/19/2024 10:30 AM EST Office Visit Orthopaedics- Adalberto Valencia 615 [facility] 100 [place] [phone] Karly Bautista, PA 180 [facility] [address] [place] [address] annual visit from date of surgery May/Jul 2024 for bilateral TKA and right LIZZ with Karly. documented as of this encounter Visit Diagnoses Not on filedocumented in this encounter Additional Health Concerns Assessment Noted Time A fall risk assessment has been complete d for the patient 07/06/2023 9:36 AM EST documented as of this encounter Care Teams Casing Tier Relationship Specialty Start Date End Date Cheo Santoyo DO [address] [place] [phone] PCP - General Family Medicine 07/06/23 documented as of this encounter
--- OUTSIDE RECORDS SUMMARY | 2024-01-13 21:15 | XMS_ITS | Encounter Summary ---
Author Organization Jose Alejandro Pantoja [facility] Address [address] [place] [address] Care Team Providers Care Mobile Paramedical Examiner Name Role Phone Cheo Santoyo Moshe REYES Primary Care Provider [phone] Reason for Visit * Reason Comments Hip Pain RIGHT Encounter Details Date Type Department Care Team (Latest Contact Info) Description 08/20/2023 3:00 PM EDT Office Visit Orthopaedics - [address] [phone] Bonny Mcarthur [address] [address] Primary osteoarthritis of right hip (Primary Dx); [...] complaints. He states his symptoms have persisted [id number]. He is also having intermittent severe catching. [...] Visit Neurology - [facility] [address] [facility] [address] [place] [phone] Martell Calderon MD 2145 [facility] [address] [place] [address] TREMORS/ MEDICARE, FOR LIFE 03/28/2024 8:30 AM EDT Office Visit Primary Care - [address] [phone] Cheo Santoyo DO [address] [place] [phone] AWV 04/06/2024 9:45 AM EST Lab [facility] - [facility] 20[address] [facility] [address] [place] [phone] CBCMP,CEA,FEST 04/06/2024 10:15 AM EST Office Visit [facility] - [facility] 20[address] [facility] [address] [place] [address] Georgi Butterfield MD [address] [place] [address] 6 MTH FU W/LABS, REV SCAN 04/13/2024 9:30 AM EST Office Visit Surgical Oncology - [facility] 20[address] [facility] [address] [place] [phone] Delvis Cheek MD 125 [facility] 660 [place] [address] 1 YEAR F/U ADENOCARCINOMA OF THE CECUM 06/19/2024 10:30 AM EST Office Visit Orthopaedics- Les Valencia 615 [facility] [address] [place] [phone] Karly Bautista W, PA [address] [place] [address] annual visit from date of surgery May/Jul [...] documented as of this encounter Care Teams Mobile Paramedical Examiner Relationship Specialty Start Date End Date Cheo Santoyo DO [address] [place] [phone] PCP - General Family Medicine 07/06/23 documented as of this encounter
--- OUTSIDE RECORDS SUMMARY | 2024-01-13 21:15 | XMS_ITS | Encounter Summary ---
Author Organization Jose Alejandro Pantoja [facility] Address [address] [place] [address] Care Team Providers Care Pharmaceutical Compounding Supervisor Name Role Phone Felicitas Monaco MD Primary Care Provider [phone] Encounter Details Date Type Department Care Team (Late st Contact Info) Description 04/07/2023 Orders Only [facility] - [facility] [address] [facility] [address] [place] [address] Georgi Butterfield MD [address] [place] [address] Iron deficiency anemia, unspecified iron [...] Neurology - [facility] [address] [facility] [address] [place] [phone] Martell Calderon MD 2144 [facility] [address] [place], [place] [phone] TREMORS/ MEDICARE, FOR LIFE 03/28/2024 8:30 AM EDT Office Visit Primary Care - [address] [phone] [place] [address] [place] [phone] AWV 04/06/2024 9:45 AM EST Lab [facility] - [facility] [address] [facility] [address] [place] [address] CBCMP,CEA,FEST 04/06/2024 10:15 AM EST Office Visit [facility] - [facility] [address] [facility] [address] [place] [address] Georgi Butterfield MD [address] [place] [address] 6 MTH FU W/LABS, REV SCAN 04/13/2024 9:30 AM EST Office Visit Surgical Oncology - [facility] [address] [facility] [address] [place] [phone] Delvis Cheek MD 125 [facility] 660 [place] [phone] 1 YEAR F/U ADENOCARCINOMA OF THE CECUM 06/19/2024 10:30 AM EST Office Visit Orthopaedics- Les Valencia 615 [facility] [address] [place] [phone] Karly Bautista, PA [address] [place] [phone] annual visit from date of surgery May/Jul 2024 for bilateral TKA and right LIZZ with Karly. documented as of this encounter Results * CEA (Serial Monitor) (04/08/2023 8:58 AM EST) CEA (SERIAL MONITOR) 2.1 0.0 - 4.7 ng/mL [facility] Comment: ? Nonsmokers ?<3.9 ? Smokers ? <5.6 [facility] Electrochemiluminescence Immunoassay (ECLIA) Values obtained with different assay methods or kits cannot be used interchangeably. ??Results cannot be interpreted as absolute evidence of the presence or absence of malignant disease. Performed At: [facility] [address] [place], [place] [id number] Ajit Swift MD Ph:[phone] Test Performed at: [facility] [address] [facility] [place] [address] Blood BLOOD SPECIMEN / Unknown 04/08/2023 8:58 AM EST 04/08/2023 2:11 PM EST Georgi Butterfield MD CHEMISTRY ORDERABLE S [facility] [address] [place] [address] * (ABNORMAL) Comprehensive Metabolic Panel (04/08/2023 8:58 AM EST) Sodium 140 135 - 145 mmol/L [facility] Potassium 4.9 3.5 - 5.3 mmol/L [facility] Chloride 104 98 - 107 mmol/L [facility] CO2 25 22 - 29 mmol/L [facility] Glucose 176(H) 70 - 99 mg/dL [facility] BUN 17 8 - 23 mg/dL [facility] Creatinine 1.1 0.7 - 1.3 mg/dL [facility] Anion Gap 11 2 - 17 mmol/L [facility] Osmolaliy Calculated 285 270 - 287 mOsm/kg [facility] Calcium 10.1 8.8 - 10.2 mg/dL [facility] Total Protein 7.0 6.4 - 8.3 g/dL [facility] Albumin 4.6 3.5 - 5.2 g/dL [facility] Globulin 2.5 1.9 - 4.4 g/dL [facility] Albumin/Globulin Ratio 1.86 1.00 - 2.70 [facility] Total Bilirubin 0.41 0.00 - 1.20 mg/dL [facility] Alk Phosphatase 114 40 - 130 unit/L [facility] AST 23 0 - 50 unit/L [facility] ALT 28 0 - 50 unit/L [facility] Est, Glom Filt Rate 74 >=60 mL/min/1.7 3m? [facility] Comment: VERIFIED by Discern Expert. GFR [...] estimating GFR in adults. Test Performed at: [facility] [address] [facility] [place] [address] Blood BLOOD SPECIMEN / Unknown 04/08/2023 8:58 AM EST 04/08/2023 2:11 PM EST Georgi Butterfield MD CHEMISTRY ORDERABLE S [facility] [address] [facility] [place] [address] * (ABNORMAL) CBC with Auto Differential (04/08/2023 [...] Testing Location: [address], [address], [facility] [address], Georgi Butterfield MD HEMATOLOGY ORDERABL ES [facility] [address] [facility] [address] [place] [address], [facility] * Ferritin (04/08/2023 8:58 AM EST) Ferritin 291.1 30.0 - 400.0 ng/mL [facility] Comment: Test Performed at: [facility] [address] [place] [address] Blood BLOOD SPECIMEN / Unknown 04/08/2023 8:58 AM EST 04/08/2023 2:11 PM EST Georgi Butterfield MD CHEMISTRY ORDERABLE S Performing Organization Address [facility] Co de Phone Number [facility] [address] [place] [address] * Iron and TIBC (04/08/2023 8:58 AM EST) Iron 80 59 - 158 mcg/dL [facility] UIBC 221.8 112.0 - 347.0 mcg/dL [facility] TIBC 302 250 - 450 mcg/dL [facility] Iron % Saturation 26 20 - 40 % [facility] Comment: Test Performed at: [facility] [address] [place] [address] [place] [address] Serum BLOOD SPECIMEN / Unknown 04/08/2023 8:58 AM EST 04/08/2023 2:11 PM EST Georgi Butterfield MD CHEMISTRY ORDERABLE S Performing Organization Address [facility] de Phone Number [facility] [address] [place] [address] * Reticulocytes (04/08/2023 8:58 AM EST) RBC 5.10 4.00 - 5.60 x10e6/mcL [facility] Retic Ct Pct 1.8 0.5 - 2.0 % [facility] Retic Ct Abs 0.0933 0.0235 - 0.1220 /mcL [facility] Comment: Test Performed at: [facility] [address] [place] [address] [place] [address] Blood BLOOD SPECIMEN / Unknown 04/08/2023 8:58 AM EST 04/08/2023 2:11 PM EST Georgi Butterfield MD HEMATOLOGY ORDERABL ES Performing Organization Address [facility] de Phone Number [facility] [address] [place] [address] * Soluble transferrin receptor (04/08/2023 8:58 AM EST) Pathologist [facility] Soluble Transferrin Recept 20.7 12.2 - 27.3 nmol/L [facility] Comment: Performed At: [facility] [id number] Ajit Swift MD Ph:[phone] Test Performed at: [facility] [address] [facility] [place] [address] Blood BLOOD SPECIMEN / Unknown 04/08/2023 8:58 AM EST 04/08/2023 2:11 PM EST Georgi Butterfield MD HEMATOLOGY ORDERABL ES Performing Organization Address [facility] de Phone Number [facility] [address] [place] [address] * Vitamin B12 (04/08/2023 8:58 AM EST) [facility] Vitamin B-12 547 232 - 1245 pg/mL [facility] Comment: Effective 05/05/17 Vitamin B12 Methodology Change - Vitamin B12 Reference Range has been revised. Test Performed at: [facility] [address] [facility] [place] [address] Blood BLOOD SPECIMEN / Unknown 04/08/2023 8:58 AM EST 04/08/2023 2:11 PM EST Georgi Butterfield MD CHEMISTRY ORDERABLE S Performing Organization Address [facility] de Phone Number [facility] [address] [place] [address] * Folate (04/08/2023 8:58 AM EST) [facility] Folate 13.39 4.80 - 24.20 ng/mL [facility] Comment: Test Performed at: [facility] [address] [facility] [place] [address] Blood BLOOD SPECIMEN / Unknown 04/08/2023 8:58 AM EST 04/08/2023 2:11 PM EST Georgi Butterfield MD CHEMISTRY ORDERABLE S [facility] [address] [place] [address] documented in this encounter Visit Diagnoses Diagnosis [...] documented as of this encounter Care Teams Pharmaceutical Compounding Supervisor Relationship Specialty Start Date End Date Felicitas Monaco MD PCP - General Family Medicine 06/18/22 07/05/23 documented as of this encounter
--- OUTSIDE RECORDS SUMMARY | 2024-01-13 21:15 | XMS_ITS | Encounter Summary ---
Author Organization Jose Alejandro P[facility]ja [facility] Address [address] [email or web address] [address] Care Team Providers Care Model Photographers' Name Role Phone Cheo Santoyo DO Primary Care Provider [phone] Reason for Referral * Medication Prior Authorization - Closed Specialty Diagnoses / Procedures Referred By Rachid jimenez Referred To Contact Diagnoses Primary hypertension Cheo Santoyo DO [address] [place] [phone] Referral ID Status Reason Start Date Expiration Date Visits Re quested Visits Authorized [id number] Closed 1 1 Reason for Visit * Reason Comments New Patient Establish care Encounter Details Date Type Department Care Team ([facility] Contact Info) Description 07/06/2023 9:00 AM EST Office Visit Primary Care - [address] [phone] Cheo Santoyo DO [address] [place] [phone] Type 2 diabetes mellitus without complication, [...] establish care. 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 He follows the following specialist: Dr Bello (ortho ) bilateral knee replacement Dr Valiente (ortho) Right shoulder Dr Butterfield (onc) - colon cancer s/p right [id number] follows every [address] Hogan (urology)- kidney stones Dr Bettencourt ( ortho ) cervical Dr Bourne (neuro) [facility]. Dr Tomlinson (hand specialist) Left wrist He is establishing care with [facility] tomorrow for neck pain. He declines [...] bundle branch block (LBBB) no longer sees automobile body customizer, states stress and testing was completed and automobile body customizer signed off PONV (postoperative nausea and vomiting) Post-operative nausea and vomiting AND STATES BODY TEMP DROPPED TO 94 DEGREES F Sleep apnea MILD AND DOES NOT USE CPAP Spinal stenosis Type 2 diabetes mellitus without complication ([facility]) Past Surgical History: Procedure Laterality Date BACK SURGERY 02/05/1986 laminectomy, discectomy CERVICAL DISCECTOMY 04/18/2007 , cervical fusion 2012 COLONOSCOPY MULTIPLE HAND CARPECTOMY Left 2021 HAND SURGERY Right 2001 debby luanr repair HEMICOLECTOMY 2020 HIP SURGERY Right 06/18/2022 INTRA ARTICULAR HIP RIGHT HIP performed by Martinez Guthrie MD at [facility] PA[facility] JOINT REPLACEMENT Right 2011 shoulder KIDNEY STONE SURGERY 2009 basket removal KNEE ARTHROSCOPY Left 10/13/2021 multiple knee scopes right and left 1997 thru 2021 SHOULDER SURGERY Right 2010 2011 right hemiarthroplasty SUBTOTAL COLECTOMY 2019 R. Hemicolectomy TOTAL KNEE ARTHROPLASTY Left 12/21/2022 LEFT TOTAL KNEE ARTHROPLASTY, ROBOTIC performed by Maurice Bello MD at [facility] MAIN OR TOTAL KNEE ARTHROPLASTY Right 03/17/2023 RIGHT TOTAL KNEE ARTHROPLASTY, ROBOTIC performed by Maurice Bello MD at [facility] MAIN OR UPPER GASTROINTESTINAL ENDOSCOPY [...] or absence of malignant disease. Performed At: [address] [id number] Ajit Swift MD Ph:[phone] Test Performed at: [facility] [address] [place] [address] Sodium 04/08/2023 140 135 - 145 mmol/L [...] estimating GFR in adults. Test Performed at: [facility] [address] [facility] [place] [address] WBC 04/08/2023 7.1 4.1 - 10.9 K/uL [...] 400.0 ng/mL Final Comment: Test Performed at: [facility] [address] [place] [address] [place] [address] Iron 04/08/2023 80 59 - 158 mcg/dL Final UIBC 04/08/2023 221.8 112.0 - 347.0 mcg/dL Final TIBC 04/08/2023 302 250 - 450 mcg/dL Final Iron % Saturation 04/08/2023 26 20 - 40 % Final Comment: Test Performed at: [facility] [address] [place] [address] [place] [address] RBC 04/08/2023 5.10 4.00 - 5.60 x10e6/mcL Final Retic Ct Pct 04/08/2023 1.8 0.5 - 2.0 % Final Retic Ct Abs 04/08/2023 0.0933 0.0235 - 0.1220 /mcL Final Comment: Test Performed at: [facility] [address] [facility] [place] [address] Soluble Transferrin Recept 04/08/2023 20.7 12.2 - 27.3 nmol/L Final Comment: Performed At: [facility] [address] [id number] Ajit Swift MD Ph:[phone] Test Performed at: [facility] [address] [facility] [place] [address] Vitamin B-12 04/08/2023 547 232 - 1245 pg/mL Final Comment: Effective 05/05/17 Vitamin B12 Methodology Change - Vitamin B12 Reference Range has been revised. Test Performed at: [facility] [address] [facility] [place] [address] Folate 04/08/2023 13.39 4.80 - 24.20 ng/mL Final Comment: Test Performed at: [facility] [address] [facility] [place] [address] IMPRESSION/PLAN Encounter Diagnoses Name Primary? Type 2 [...] AM EDT [facility] [address] [facility] [address] [place] [address] Martell Calderon MD [address] [facility] [address] [place] [address] TREMORS/ MEDICARE, FOR LIFE 03/28/2024 8:30 AM EDT Office Visit Primary Care - [address] [address] Cheo Santoyo DO [facility] [place] [address] AWV 04/06/2024 9:45 AM EST Lab [facility] [address] [facility] [address] [place] [address] CBCMP,CEA,FEST 04/06/2024 10:15 AM EST Office Visit [facility] - [facility] [address] [facility] [address] [place] [address] Georgi Butterfield MD [address] [facility] [address] [place] [address] 6 MTH FU W/LABS, REV SCAN 04/13/2024 9:30 AM EST Office Visit Surgical Oncology - [facility] [address] [facility] [address] [place] [address] Delvis Cheek MD 125 [facility] [address] [place] [phone] 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 [address] [place] [address] Karly Bautista PA [address] [place] [address] annual visit from date of [...] time, no major scientific/medical organization including the [place] [employer] and the [employer] have specific recommendations in regard [...] PM EST Cheo Santoyo DO CHEMISTRY ORDERABLES [facility] [address] [facility], [facility] [place] [address] * (ABNORMAL) Comprehensive Metabolic Panel (07/06/2023 11:08 [...] Santoyo DO CHEMISTRY ORDERABLES Performing Organization Address City/State/[facility] Co de Phone Number [facility] [address] [place] [address] * (ABNORMAL) Hemoglobin A1C (07/06/2023 11:08 AM EST) Hemoglobin A1C 6.8(H) 4.0 - 6.0 % [facility] Comment: HEMOGLOBIN A1C INTERPRETATION: [...] Inadequate Control Est. Avg. Glucose, WB 148 [facility] Est. Avg. Glucose-calculated 165 [facility] Blood BLOOD SPECIMEN / Unknown 07/06/2023 11:08 AM EST 07/06/2023 3:58 PM EST Cheo Santoyo DO CHEMISTRY ORDERABLES Performing Organization Address City/State/[facility] de Phone Number [facility] [address] [facility] [address] [place] [id number] * COLONOSCOPY (06/01/2023) 06/01/2023 Historical Provider MD [...] documented as of this encounter Care Teams Model Photographers' Relationship Specialty Start Date End Date Cheo Santoyo DO [address] [place] [phone] PCP - General Family Medicine 07/06/23 documented as of this encounter
--- OUTSIDE RECORDS SUMMARY | 2024-01-13 21:15 | XMS_ITS | Encounter Summary ---
Author Organization Jose Alejandro Kit [facility] Address [address] [place] [address] Care Team Providers Care Insight Director Name Role Phone Felicitas Monaco MD Primary Care Provider [phone] Reason for Referral * Eval and Treat (Routine) - Open Specialty Diagnoses / Procedures Referred By Rachid jimenez Referred To Contact Family Medicine / Primary Care Diagnoses Iron deficiency anemia, unspecified iron deficiency anemia type Carcinoma of ascending colon (HCC) Georgi Butterfield MD [address] [place] [address] Cheo Santoyo DO [address] [place] [phone] Referral ID Status Reason Start Date Expiration Date V isits Requested Visits Authorized [id number] Open Specialty Services Required 04/08/2023 04/07/2024 1 1 Scheduling Instructions Cheo Santoyo DO, Primary Care - [address] [phone] Question Answer My clinical question is: essablish care Comments The patient can be scheduled with any member of the group, including the provider with the first available appointments. Reason for Visit * Reason Comments Follow-up Encounter Details Date Type Department Care Team ([facility] Contact Info) Description 04/08/2023 9:30 AM EST Office Visit [facility] Hematology & Oncology - [facility] [address] [facility] [address] [place] [address] Georgi Butterfield MD [address] [facility] [address] [place] [address] Iron deficiency anemia, unspecified iron [...] from the original note were not included. [facility] HEMATOLOGY & ONCOLOGY MD Rosalino Ponce MD Ryan A. Kalinsky, MD Mark T. Burbridge, DO Jenny Riley, MD Margaret Brady, MD Caitlin Mengler, [facility]- Marcela Jackman, CODING FILE CLERK-PRINTED CIRCUIT BOARD PANELS PLATER Gisselle Padilla, TIGIST [email or web address] Hematology/Medical Oncology Patient Name: [...] bundle branch block (LBBB) no longer sees ceramic artist, states stress and testing was completed and ceramic artist signed off PONV (postoperative nausea and vomiting) [...] ROBOTIC performed by Maurice Panchal MD at [facility] MAIN OR TOTAL KNEE ARTHROPLASTY Right 03/17/2023 RIGHT TOTAL KNEE ARTHROPLASTY, ROBOTIC performed by Maurice Panchal MD at [facility] MAIN OR UPPER GASTROINTESTINAL ENDOSCOPY [...] Dr. [address] [place] [address] Martell Calderon MD [address] [facility] [address] [place] [address] TREMORS/ MEDICARE, FOR LIFE 03/28/2024 8:30 AM EDT Office Visit Primary Care - [address] [phone] Cheo Santoyo DO [address] [place] [phone] AWV 04/06/2024 9:45 AM EST Lab [facility] - [facility] [address] [facility] [address] [place] [phone] CBCMP,CEA,FEST 04/06/2024 10:15 AM EST Office Visit [facility] - [facility] [address] [facility] [address] [place] [phone] Georgi Butterfield MD [address] [facility] [address] [place] [address] 6 MTH FU W/LABS, REV SCAN 04/13/2024 9:30 AM EST Office Visit Surgical Oncology - [facility] [address] [facility] [address] [place] [address] Delvis Cheek MD 125 [facility] [address] [place] [address] 1 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 Scheduled Referrals Name Type Priority Associated Diagnoses Orde r Schedule [facility] - Cheo Santoyo DO, Primary Care - [facility] Outpatient Referral Routine Iron deficiency anemia, unspecified [...] EST) Folate 13.39 4.80 - 24.20 ng/mL [facility] Comment: Test Performed at: [facility] [address] [facility] [place] [address] Blood BLOOD SPECIMEN / Unknown 04/08/2023 8:58 AM EST 04/08/2023 2:11 PM EST Georgi Butterfield MD CHEMISTRY ORDERABLE S Performing Organization Address [facility] de Phone Number [facility] [address] [place] [address] * Vitamin B12 (04/08/2023 8:58 AM EST) Pathologist [facility] Vitamin B-12 547 232 - 1245 pg/mL [facility] Comment: Effective 05/05/17 Vitamin B12 Methodology Change - Vitamin B12 Reference Range has been revised. Test Performed at: [facility] [address] [place] [address] [place] [address] Blood BLOOD SPECIMEN / Unknown 04/08/2023 8:58 AM EST 04/08/2023 2:11 PM EST Georgi Butterfield MD CHEMISTRY ORDERABLE S Performing Organization Address [facility] de Phone Number [facility] [address] [place] [address] * Soluble transferrin receptor (04/08/2023 8:58 AM EST) [facility] Soluble Transferrin Recept 20.7 12.2 - 27.3 nmol/L [facility] Comment: Performed At: [facility] [id number] Ajit Swift MD Ph:[phone] Test Performed at: [facility] [address] [place] [address] [place] [address] Blood BLOOD SPECIMEN / Unknown 04/08/2023 8:58 AM EST 04/08/2023 2:11 PM EST Georgi Butterfield MD HEMATOLOGY ORDERABL ES Performing Organization Address [facility] de Phone Number [facility] [address] [place] [phone] * Reticulocytes (04/08/2023 8:58 AM EST) [facility] RBC 5.10 4.00 - 5.60 x10e6/mcL [facility] Retic Ct Pct 1.8 0.5 - 2.0 % [facility] Retic Ct Abs 0.0933 0.0235 - 0.1220 /mcL [facility] Comment: Test Performed at: [facility] [address] [facility] [place] [address] Blood BLOOD SPECIMEN / Unknown 04/08/2023 8:58 AM EST 04/08/2023 2:11 PM EST Georgi Butterfield MD HEMATOLOGY ORDERABL ES Performing Organization Address [facility] de Phone Number [facility] [address] [place] [address] * Iron and TIBC (04/08/2023 8:58 AM EST) Iron 80 59 - 158 mcg/dL [facility] UIBC 221.8 112.0 - 347.0 mcg/dL [facility] TIBC 302 250 - 450 mcg/dL [facility] Iron % Saturation 26 20 - 40 % [facility] Comment: Test Performed at: [facility] [address] [facility] [place] [address] Serum BLOOD SPECIMEN / Unknown 04/08/2023 8:58 AM EST 04/08/2023 2:11 PM EST Georgi Butterfield MD CHEMISTRY ORDERABLE S Performing Organization Address City/[facility] de Phone Number [facility] [address] [place] [address] * Ferritin (04/08/2023 8:58 AM EST) Ferritin 291.1 30.0 - 400.0 ng/mL [facility] Comment: Test Performed at: [facility] [address] [facility] [place] [address] Blood BLOOD SPECIMEN / Unknown 04/08/2023 8:58 AM EST 04/08/2023 2:11 PM EST Georgi Butterfield MD CHEMISTRY ORDERABLE S [facility] [address] [place] [address] * (ABNORMAL) CBC with Auto Differential (04/08/2023 [...] Testing Location: [address], [address], [facility] [address], Georgi Butterfield MD HEMATOLOGY ORDERABL ES [facility] HEMATOLOGY & ONCOLOGY [address] [facility] [facility] [address] [place] [address] * (ABNORMAL) Comprehensive Metabolic Panel (04/08/2023 8:58 AM EST) Sodium 140 135 - 145 mmol/L [facility] Potassium 4.9 3.5 - 5.3 mmol/L [facility] Chloride 104 98 - 107 mmol/L [facility] CO2 25 22 - 29 mmol/L [facility] Glucose 176(H) 70 - 99 mg/dL [facility] BUN 17 8 - 23 mg/dL [facility] Creatinine 1.1 0.7 - 1.3 mg/dL [facility] Anion Gap 11 2 - 17 mmol/L [facility] Osmolaliy Calculated 285 270 - 287 mOsm/kg [facility] Calcium 10.1 8.8 - 10.2 mg/dL [facility] Total Protein 7.0 6.4 - 8.3 g/dL [facility] Albumin 4.6 3.5 - 5.2 g/dL [facility] Globulin 2.5 1.9 - 4.4 g/dL [facility] Albumin/Globulin Ratio 1.86 1.00 - 2.70 [facility] Total Bilirubin 0.41 0.00 - 1.20 mg/dL [facility] Alk Phosphatase 114 40 - 130 unit/L [facility] AST 23 0 - 50 unit/L [facility] ALT 28 0 - 50 unit/L [facility] Est, Glom Filt Rate 74 >=60 mL/min/1.7 3m? [facility] Comment: VERIFIED by Discern Expert. [...] GFR in adults. Test Performed at: [facility] [address] [facility] [place] [address] Blood BLOOD SPECIMEN / Unknown 04/08/2023 8:58 AM EST 04/08/2023 2:11 PM EST Georgi Butterfield MD CHEMISTRY ORDERABLE S [facility] [address] [facility] [place] [address] * CEA (Serial Monitor) (04/08/2023 8:58 AM EST) Pathologist [facility] CEA (SERIAL MONITOR) 2.1 0.0 - 4.7 ng/mL [facility] Comment: ? Nonsmokers ?<3.9 ? Smokers ? <5.6 [facility] Electrochemiluminescence Immunoassay (ECLIA) Values obtained with different assay methods or kits cannot be used interchangeably. ??Results cannot be interpreted as absolute evidence of the presence or absence of malignant disease. Performed At: [facility] [id number] Ajit Swift MD Ph:[phone] Test Performed at: [facility] [address] [facility] [place] [address] Blood BLOOD SPECIMEN / Unknown 04/08/2023 8:58 AM EST 04/08/2023 2:11 PM EST Georgi Butterfield MD CHEMISTRY ORDERABLE S Performing Organization Address City/State/[facility] Co de Phone Number [facility] [address] [place] [address] documented in this encounter Visit Diagnoses Diagnosis Iron deficiency anemia, unspecified iron deficiency anemia type Carcinoma of ascending colon (HCC) Malignant neoplasm of ascending colon documented in this encounter Additional Health Concerns Assessment Noted Time A fall risk assessment has been complete d for the patient 02/26/2023 9:45 AM EDT documented as of this encounter Care Teams Insight Director Relationship Specialty Start Date End Date Felicitas Monaco MD PCP - General Family Medicine 06/18/22 07/05/23 documented as of this encounter
--- OUTSIDE RECORDS SUMMARY | 2024-01-13 21:15 | XMS_ITS | Encounter Summary ---
Author Organization [facility] Ale[facility] Address [address] [place] [address] Care Team Providers Care Database Security Expert Name Role Phone Cheo Santoyo DO Primary Care Provider [phone] Encounter Details Date Type Department Care Team ([facility] st Contact Info) Description 08/04/2023 Abstract Primary Care - [address] [phone] Cheo Santoyo DO [address] [place] [phone] Social History Tobacco Use Types Packs/Day [...] Office Visit Neurology - [facility] [address] [facility] [address] [place] [address] Martell Calderon MD [address] [facility] [address] [place] [address] TREMORS/ MEDICARE, FOR LIFE 03/28/2024 8:30 AM EDT Office Visit Primary Care - [address] [phone] [place] [address] [place] [phone] AWV 04/06/2024 9:45 AM EST Lab [facility] [address] [facility] [address] [place] [address] CBCMP,CEA,FEST 04/06/2024 10:15 AM EST Office Visit [place] [facility] [address] [facility] [address] [place] [address] Georgi Butterfield MD [address] [place] [address] 6 MTH FU W/LABS, REV SCAN 04/13/2024 9:30 AM EST Office Visit Surgical Oncology - [facility] [address] [facility] [address] [facility] [address] [place] [address] Delvis Cheek MD [address] [facility] [address] [place] [address] 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 documented as of this encounter Visit Diagnoses Not on filedocumented in this encounter Additional Health Concerns Assessment Noted Time A fall risk assessment has been complete d for the patient 07/06/2023 9:36 AM EST documented as of this encounter Care Teams Database Security Expert Relationship Specialty Start Date End Date Cheo Santoyo DO [address] [place] [phone] PCP - General Family Medicine 07/06/23 documented as of this encounter
--- OUTSIDE RECORDS SUMMARY | 2024-01-13 21:15 | XMS_ITS | Encounter Summary ---
Author Organization Jose Alejandro Pantoja [facility] Address [address] [place] [address] Care Team Providers Care Deli Associate Name Role Phone Cheo Santoyo Primary Care Provider [phone] Encounter Details Date Type Department Care Team (Late st Contact Info) Description 04/06/2023 Home Visit [facility] [place] Maurice Panchal MD [address] [address] Social History Tobacco Use Types Packs/Day Years [...] Neurology - [facility] [address] [facility] [address] [place] [address] Martell Calderon MD 2144 [facility] [address] [place] [address] TREMORS/ MEDICARE, FOR LIFE 03/28/2024 8:30 AM EDT Office Visit Primary Care - [address] [address] Che[address]oyo [address] [address] AWV 04/06/2024 9:45 AM EST Lab [facility] - [facility] 20[address] [facility] [address] [place] [address] CBCMP,CEA,FEST 04/06/2024 10:15 AM EST Office Visit [facility] - [facility] 2084 [facility] [address] [place] [address] Georgi Butterfield MD 3510 [facility] [address] [place] [address] 6 MTH FU W/LABS, REV SCAN 04/13/2024 9:30 AM EST Office Visit Surgical Oncology - [facility] 2084 [facility] [address] [place] [address] Dlevis Cheek MD 125 [facility] 660 [place] [phone] 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 documented as of this encounter Visit Diagnoses Not on filedocumented in this encounter Additional Health Concerns Assessment Noted Time A fall risk assessment has been complete d for the patient 02/26/2023 9:45 AM EDT documented as of this encounter Care Teams Deli Associate Relationship Specialty Start Date End Date Cheo Santoyo DO [address] [place] [phone] PCP - General Family Medicine 07/06/23 documented as of this encounter
--- OUTSIDE RECORDS SUMMARY | 2024-01-13 21:15 | XMS_ITS | Encounter Summary ---
Author Organization Jose Alejandro Kit [facility] Address [address]01 [place] [address] Care Team Providers Care Assistant Reading Teacher Name Role Phone Felicitas Monaco MD Primary Care Provider [phone] Reason for Referral * Eval and Treat (Routine) - Closed Specialty Diagnoses / Procedures Referred By Rachid jimenez Referred To Contact Physical Therapy Diagnoses History of right knee joint replacement Maurice Panchal MD [facility] [address] [address] PT/OT, [facility] PT DE/Count Includes [facility] 5401 [facility] [address] Referral ID Status Reason Start Date Expiration Date V isits Requested Visits Authorized [id number] Closed Specialty Services Required 04/06/2023 10/03/2023 1 1 Scheduling Instructions [facility] Physical Therapy 5401 [facility] [id number] Question Answer Reason For External Referral? [facility] Integrated Network (FANG) Comments Physical Therapy / Total Joint Protocol 1-3 x's week 1 month Encounter Details Date Type Department Care Team (Late st Contact Info) Description 04/06/2023 Orders Only Orthopaedics - [place] [id number] [phone] Maurice Panchal MD [address] [address] History of right knee joint replacement (Primary [...] Dr. [address] [place] [address] Martell Calderon MD [address] [facility] [address] [place] [address] TREMORS/ MEDICARE, FOR LIFE 03/28/2024 8:30 AM EDT Office Visit Primary Care - [address] [address] Cheo Santoyo DO [facility] [place] [address] AWV 04/06/2024 9:45 AM EST Lab [facility] - [facility] [address] [facility] [address] [place] [address] CBCMP,CEA,FEST 04/06/2024 10:15 AM EST Office Visit [facility] - [facility] 20[address] [facility] [address] [place] [address] Georgi Butterfield MD [address] [place] [address] 6 MTH FU W/LABS, REV SCAN 04/13/2024 9:30 AM EST Office Visit Surgical Oncology - [facility] 20[address] [facility] [address] [place] [address] Delvis Cheek MD 125 [facility] 660 [place] [address] 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 Scheduled Referrals Name Type Priority Associated Diagnoses Orde r Schedule RSF - [facility]I Physical Therapy - [facility] Outpatient Referral Routine History of right knee joint replacement Ordered: 04/06/2023 documented as of this encounter Visit Diagnoses Diagnosis History of right knee joint replacement- Primary documented in this encounter Additional Health Concerns Assessment Noted Time A fall risk assessment has been complete d for the patient 02/26/2023 9:45 AM EDT documented as of this encounter Care Teams Assistant Reading Teacher Relationship Specialty Start Date End Date Felicitas Monaco MD PCP - General Family Medicine 06/18/22 07/05/23 documented as of this encounter
--- OUTSIDE RECORDS SUMMARY | 2024-01-13 21:15 | XMS_ITS | Encounter Summary ---
Author Organization Jose Alejandro [facility] Address [address] [employer] [place] [address] Care Team Providers Care Child Psychology Teacher Name Role Phone Felicitas Monaco MD Primary Care Provider [phone] Reason for Visit * Auth/Cert (Routine) Specialty Diagnoses / Procedures Referred By Rachid jimenez Referred To Contact Diagnoses Primary osteoarthritis of right knee Primary osteoarthritis of right knee [M17.11] Procedures IN ARTHRP KNE CONDYLE&PLATU MEDIAL&LAT COMPARTMENTS RIGHT TOTAL KNEE ARTHROPLASTY, ROBOTIC Maurice Panchal MD [address] [address] Referral ID Status Reason Start Date Expiration Date Visits Re quested Visits Authorized [id number] 1 1 Encounter Details Date Type Department Care Team (Latest Contact Info) Description 03/17/2023 7:29 AM EDT - 03/18/2023 1:26 PM EDT Hospital Encounter RMP 3 [facility] [address] [place] [address] Maurice Panchal MD [address] [address] S/P total knee arthroplasty, right (Primary Dx) [...] - please call Dr. Panchal's office at [phone] AQUACEL DRESSING Aquacel?? Ag dressing is a [...] dressing No dressing required FOR TOTAL KNEES: Reliance will be removed by home health 10-14 [...] EMPTY when it is flat with an Africasana core center remaining inside. To remove catheter: [...] NUMBERS - 24 HOUR patient nursing hotline: [phone] Call your doctor if you have: A [...] 10 to 30 times each hour. ?? [phone] [employer]. All rights reserved. This information is not [...] when you can stop using them. ?? [phone] [employer]. All rights reserved. This information is not [...] about your recovery or activities. ?? [employer]. All rights reserved. This information is not [...] your leg to the starting point. ?? [phone] [employer]. All rights reserved. This information is not [...] your leg to the starting point. ?? [phone] [employer]. All rights reserved. This information is not intended as a substitute for professional medical care. Always follow your healthcare professional's instructions. * Attachments The following attachments cannot be sent through Care Everywhere. * acetaminophen (oral) (Comoran) * aspirin (oral) (Comoran) * celecoxib (Comoran) * docusate (oral/rectal) (Comoran) * Constipation (Comoran) * DVT (Deep Vein Thrombosis) (Comoran) * Pulmonary Embolism (Comoran) documented in this encounter Medications at Time [...] this encounter Progress Notes * Chrissy Mcdonnell, RECTANGULAR TANK COOPER - 03/18/2023 1:26 PM EDT Images from the original note were not included. Acute Care Physical Therapy Treatment Note Observation (RECTANGULAR TANK COOPER/PT Visit Days : 2) Time In: 911 [...] Within Normal Limits Orientation Level: Oriented X4 [facility]?6 Clicks?? Basic Mobility Inpatient Short [...] 3-5 steps with a railing?: A Little [facility] Inpatient Mobility Raw Score : 22 [facility] Inpatient T-Scale Score : 53.28 Mobility [...] length Distance: 200 FT Therapeutic Exercise (CPT 33660) (8 minutes) Exercise Treatment: PERFORMED HEELSLIDES FOR ROM X 5 REPS; REVIEWED ANKLE PUMPS, QUAD SETS AND GLUTEAL SETS To Improve:activity tolerance, AROM, strength, and mobility Gait Training (20 Minutes) CPT 71453: Gait training for 200 feet utilizing Gait [...] UNDERSTANDING OF STG 3 Short Term Goals Fpc Goals Time Frame [...] Homemaking Assistance: Independent Homemaking Responsibilities: Yes Active Electrical Engineering Technician: 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 Safety: Type of Devices: All fall risk precautions in place;Gait belt;Call light within reach;Left in chair;Nurse notified Education: Education Given To: Patient Education Provided: Role of Therapy;ADL Adaptive Strategies;Energy Conservation;Fall Prevention Strategies;Transfer Training Education Method: Demonstration;Verbal Education Outcome: Verbalized understanding;Demonstrated understanding [facility]?6 Clicks?? Basic ADL Inpatient Short Form ASSESSMENT [...] 12:23 PM EDT Orthopedic Progress Note Date:03/18/2023 Room:[address] [place] [address] Patient Name:Martínez Toribio Date of :1955 Age:68 [...] included. Acute Care Physical Therapy Evaluation Observation (RECTANGULAR TANK COOPER/PT Visit Days : 1) Time In: 1733 [...] Positioning, Therapeutic activities Goals Short Term Goals Asphalt Mixer Goals Time Frame for Short Term Goals: 3 visits Short Term Goal 1: Pt will transfer STS c RW c CGA- goal met Short Term Goal 2: Pt will amb 200 ft c RW c CGA Short Term Goal 3: Pt will navigate curb c RW c CGA Therapist Signature: Brenden uGerrero Prevatte Date: 03/17/2023. * Natacha Hernadez RN - 03/11/2023 10:54 AM EDT Pre Procedure Patient Instructions Procedure Location hospital:[facility] [address] [facility]- If your arrival is scheduled between 6:30a-4:30p: Enter building at Outpatient Services, turn right and [facility] then take stairs or elevator to [...] wear artificial nails and only clear nail nicaraguan on natural nails. Nails must be trimmed [...] Living Will and/or Medical Durable Power of Contract Loader if you have one Bring a list [...] you have any additional questions please contact [phone] To pre-register for your procedure please call [phone] Option 1 For financial questions regarding your procedure at a [facility] facility, please contact [phone] For financial questions regarding anesthesia at a [facility], please contact [phone] For [facility] Patient Portal help please call [phone] documented in this encounter Plan of Treatment Upcoming Encounters Date Type Department Care Team (Late st Contact Info) Description 03/24/2024 9:00 AM EDT Office Visit Neurology - [facility] [address] [facility] [address] [place] [address] Martell Calderon MD 2144 [facility] [address] [place] [address] TREMORS/ MEDICARE, FOR LIFE 03/28/2024 8:30 AM EDT Office Visit Primary Care - [address] [address] [place] [address] [place] [phone] AWV 04/06/2024 9:45 AM EST Lab [facility] - [facility] 2084 [facility] [address] [place] [address] CBCMP,CEA,FEST 04/06/2024 10:15 AM EST Office Visit [facility] - [facility] [address] [facility] [address] [place] [address] Georgi Butterfield MD [address] [place] [address] 6 MTH FU W/LABS, REV SCAN 04/13/2024 9:30 AM EST Office Visit Surgical Oncology - [facility] 20[address] [facility] [address] [place] [address] Delvis Cheek MD 125 [facility] [address] [place] [address] 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 06/19/2024 10:30 AM EST Office Visit Orthopaedics- Les Valencia 615 [facility] [address] [place] [address] Karly Bautista PA [address] [place] [address] annual visit from date of [...] METABOLIC PANEL Routine 03/18/2023 5:08 AM EDT IN ARTHRP KNE CONDYLE&PLATU MEDIAL&LAT COMPARTMENTS 03/17/2023 9:16 AM EDT Primary osteoarthritis of right knee Special Needs Daxa Summers/mg mcarthur POCT GLUCOSE Routine 03/17/2023 8:11 AM EDT documented in this encounter Results * Hemoglobin and Hematocrit (03/18/2023 5:08 AM EDT) Hemoglobin 13.9 13.0 - 17.3 g/dL [facility] Hematocrit 42.4 38.0 - 52.0 % [facility] Blood BLOOD SPECIMEN / Unknown 03/18/2023 5:08 AM EDT 03/18/2023 5:12 AM EDT Karly DALLAS HEMATOLOGY ORDERABLE S [facility] [address] [place] [address] * (ABNORMAL) Basic Metabolic Panel (03/18/2023 5:08 [...] Karly DALLAS CHEMISTRY ORDERABLES Performing Organization Address [facility] Co de Phone Number [place] [phone] [facility] [address] [place] [address] * POCT Glucose (03/17/2023 8:11 AM EDT) POC Glucose 108.0 65.0 - 110.0 mg/dL [facility] Comment:MP - AMB PACU Blood 03/17/2023 8:11 AM EDT 03/17/2023 8:11 AM EDT Maurice Panchal MD POINT OF CARE TEST O RDERABLES Performing Organization Address [facility] Co de Phone Number [facility] [address] [place] [address] documented in this encounter Visit Diagnoses Diagnosis [...] Assess pain q4hrs May increase/decrease 2 ml/hr [id number] for adequate pain control pain up to max of 14 ml/hr Decrease infusion rate to 4 ml/hr [id number] prior to physical therapy or ambulation for [...] mL IVPB (mini-bag) (COMPLETED) 2,000 mg, IntraVENous, PACKERHEAD MACHINE OPERATOR TO O.R., 1 dose, On Wed03/17/23 [...] at 400 mL/hr, Administer over 15 Minutes, PACKERHEAD MACHINE OPERATOR TO O.R., On Wed03/17/23 at 0800, [...] Assess pain q4hrs May increase/decrease 2 ml/hr [id number] for adequate pain control pain up to max of 14 ml/hr Decrease infusion rate to 4 ml/hr [id number] prior to physical therapy or ambulation for [...] documented as of this encounter Care Teams Child Psychology Teacher Relationship Specialty Start Date End Date Felicitas Monaco MD PCP - General Family Medicine 06/18/22 07/05/23 documented as of this encounter
--- OUTSIDE RECORDS SUMMARY | 2024-01-13 21:15 | XMS_ITS | Encounter Summary ---
Author Organization Jose Alejandro liriano [facility] Address [address] [place] [address] Care Team Providers Care Commercial Drone Software Developer Name Role Phone Cheo Santoyo DO Primary Care Provider [phone] Encounter Details Date Type Department Care Team ([facility] st Contact Info) Description 07/06/2023 Orders Only Primary Care - [address] [address] Cheo Santoyo DO [address] [place] [address] Screening PSA (prostate specific antigen); Type [...] Neurology - [facility] [address] [facility] [address] [place] [address] Martell Calderon MD 2144 [facility] [address] [place] [address] TREMORS/ MEDICARE, FOR LIFE 03/28/2024 8:30 AM EDT Office Visit Primary Care - [address] [address] Cheo Santoyo DO [address] [place] [address] AWV 04/06/2024 9:45 AM EST Lab [facility] - [facility] 20[address] [facility] [address] [place] [address] CBCMP,CEA,FEST 04/06/2024 10:15 AM EST Office Visit [facility] - [facility] 20[address] [facility] [address] [place] [address] Georgi Butterfield MD [address] [place] [address] 6 MTH FU W/LABS, REV SCAN 04/13/2024 9:30 AM EST Office Visit Surgical Oncology - [facility] 20[address] [facility] [address] [place] [address] Delvis Cheek MD 125 [facility] 660 [place] [address] 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 Avg. Glucose, WB 148 [facility] Est. Avg. Glucose-calculated 165 [facility] Blood BLOOD SPECIMEN / Unknown 07/06/2023 11:08 AM EST 07/06/2023 3:58 PM EST Cheo Santoyo DO CHEMISTRY ORDERABLES Performing Organization Address [facility]/State/[facility] Co de Phone Number [facility] [address] [place] [address] * (ABNORMAL) Comprehensive Metabolic Panel (07/06/2023 11:08 [...] Santoyo DO CHEMISTRY ORDERABLES Performing Organization Address City/State/[facility] Co de Phone Number [facility] [address] [place] [address] * PSA Screening (07/06/2023 11:08 AM EST) PSA, Screening 1.420 0.000 - 4.000 ng/mL [facility] Comment: PSA INTERPRETATION: PSA measured by Ja Harry electrochemiluminescence immunoassay ECLIA methodology. At this time, no major scientific/medical organization including the [place] [employer] and the [place] [employer] have specific recommendations in regard [...] Santoyo DO CHEMISTRY ORDERABLES Performing Organization Address City/State/[facility] Co de Phone Number [facility] [address] [place] [address] documented in this encounter Visit Diagnoses Diagnosis [...] documented as of this encounter Care Teams Commercial Drone Software Developer Relationship Specialty Start Date End Date Cheo Santoyo DO [address] [place] [phone] PCP - General Family Medicine 07/06/23 documented as of this encounter
--- OUTSIDE RECORDS SUMMARY | 2024-01-13 21:15 | XMS_ITS | Encounter Summary ---
Author Organization Jose Alejandro Kit [facility] Address [address] [place] [address] Care Team Providers Care Bush Regenerator Name Role Phone Yarelis Cheo Moshe REYES Primary Care Provider [phone] Reason for Visit * Auth/Cert (Routine) Specialty Diagnoses / Procedures Referred By Rachid t Referred To Contact Diagnoses Right hip pain Right hip pain [M25.551] Procedures AR ARTHROCENTESIS ASPIR&/INJ MAJOR JT/BURSA W/O US [place]TRA [place] [address] [place] [phone] [address] Referral ID Status Reason Start Date Expiration Date Visits Re quested Visits Authorized [id number] 1 1 Encounter Details Date Type Department Care Team (Late st Contact Info) Description 08/04/2023 10:30 AM EST - 08/04/2023 10:45 AM EST Surgery [facility] PAIN MGMT OR [address] [place] [address] Martinez Guthrie MD [address] [address] INTRA ARTICULAR HIP BILATERAL [...] Everywhere. * Bursa Injection: Trochanteric: General Info (Greek) * RICE: General Info (Greek) documented in this encounter Medications at Time [...] Office Visit Neurology - Maryan [address]sen Dr. [address] [place] [address] Martell Calderon MD 2145 [facility] [address] [place] [address] TREMORS/ MEDICARE, FOR LIFE 03/28/2024 8:30 AM EDT Office Visit Primary Care - [facility] [address] [place] [address] Cheo Santoyo, DO 1112 [place] [address] AWV 04/06/2024 9:45 AM EST Lab [facility] - [facility] 2084 [facility] [address] [place] [phone] CBCMP,CEA,FEST 04/06/2024 10:15 AM EST Office Visit [facility] - [facility] 2084 [facility] [address] [place] [address] Georgi Butterfield MD 3510 [facility] [place] [address] 6 MTH FU W/LABS, REV SCAN 04/13/2024 9:30 AM EST Office Visit Surgical Oncology - [facility] 2084 [facility] [address] [place] [address] Delvis Cheek MD 125 [facility] [address] [place] [address] 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 documented as of this encounter Procedures Procedure Name Priority Date/Time Associated Diagnosis Comments AR ARTHROCENTESIS ASPIR&/INJ MAJOR JT/BURSA W/O US 08/04/2023 [...] documented as of this encounter Care Teams Bush Regenerator Relationship Specialty Start Date End Date Cheo Santoyo DO [address] [place] [address] PCP - General Family Medicine 07/06/23 documented as of this encounter
--- OUTSIDE RECORDS SUMMARY | 2024-01-13 21:15 | XMS_ITS | Encounter Summary ---
Author Organization Jose Alejandro Pantoja [facility] Address [address] [place] [address] Care Team Providers Care Manager Power Name Role Phone Cheo Santoyo DO Primary Care Provider [phone] Encounter Details Date Type Department Care Team ([facility] st Contact Info) Description 07/23/2023 Abstract Primary Care - [address] [address] Cheo Santoyo DO [address] [place] [phone] Social History Tobacco Use Types Packs/Day [...] Upcoming Encounters Date Type Department Care Team ([facility] st Contact Info) Description 03/24/2024 9:00 AM EDT Office Visit Neurology - [facility] [address] [facility] [address] [place] [address] Martell Calderon MD 2144 [facility] [address] [place] [address] TREMORS/ MEDICARE, FOR LIFE 03/28/2024 8:30 AM EDT Office Visit Primary Care - [address] [address] Cheo Santoyo [address] [address] AWV 04/06/2024 9:45 AM EST Lab [facility] - [facility] [address] [facility] [address] [place] [address] CBCMP,CEA,FEST 04/06/2024 10:15 AM EST Office Visit [place] [facility] - [facility] [address] [facility] [address] [place] [address] Georgi Butterfield MD 3510 [facility] [address] [place], [place] [id number] 6 MTH FU W/LABS, REV SCAN 04/13/2024 9:30 AM EST Office Visit Surgical Oncology - [facility] [address] [facility] [address] [place] [address] Delvis Cheek MD 125 [facility] 660 [place] [address] 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 documented as of this encounter Visit Diagnoses Not on filedocumented in this encounter Additional Health Concerns Assessment Noted Time A fall risk assessment has been complete d for the patient 07/06/2023 9:36 AM EST documented as of this encounter Care Teams Manager Power Relationship Specialty Start Date End Date Cheo Santoyo DO [address] [place] [phone] PCP - General Family Medicine 07/06/23 documented as of this encounter
--- OUTSIDE RECORDS SUMMARY | 2024-01-13 21:16 | XMS_ITS | Encounter Summary ---
Author Organization Jose Alejandro Raymundolinnea [facility] Address [address] [place] [address] Care Team Providers Care Auto Body Repair Estimator Name Role Phone Felicitas Monaco MD Primary Care Provider [phone] Reason for Visit * Reason Comments Rash 2 WEEKS AGO was anne mariejoe doyle pt think its poison manuel, on face and now its on left arm red spots upper and lower arm Encounter Details Date Type Department Care Team (Late st Contact Info) Description 02/27/2023 8:10 AM EDT Office Visit Express Care - [address] [place] [address] Rosa Maria Reveles APRN - BOTTLING SUPERVISOR [address] [place] [address] Rhus dermatitis (Primary Dx) Social History Tobacco [...] bundle branch block (LBBB) no longer sees account engineer, states stress and testing was completed and account engineer signed off Post-operative nausea and vomiting Sleep apnea Spinal stenosis Past Surgical History: Procedure Laterality Date BACK SURGERY 02/05/1986 laminectomy, discectomy CERVICAL DISCECTOMY 04/18/2007 , cervical fusion 2012 HAND CARPECTOMY Left 2021 HAND SURGERY Right 2001 debby luanr repair HEMICOLECTOMY 2020 HIP SURGERY Right 06/18/2022 INTRA ARTICULAR HIP RIGHT HIP performed by Martinez Guthrie MD at [facility] PAIN MANAGEMENT JOINT REPLACEMENT Right 2011 shoulder KIDNEY STONE SURGERY 2009 basket removal KNEE ARTHROSCOPY Left 10/13/2021 multiple knee scopes right and left 1997 thru 2021 SHOULDER SURGERY Right 2010 2011 right hemiarthroplasty SUBTOTAL COLECTOMY 2019 R. Hemicolectomy TOTAL KNEE ARTHROPLASTY Left 12/21/2022 LEFT TOTAL KNEE ARTHROPLASTY, ROBOTIC performed by Maurice Panchal MD at [facility] MAIN OR UPPER GASTROINTESTINAL ENDOSCOPY 2019 Allergies [...] baths and showers. May continue to apply [id number] anti-itch remedies. Follow-up for any new or worsening symptoms. Patient verbalized understanding and agreement plan of care. GLENN Rossi NP documented in this encounter Plan of Treatment Upcoming Encounters Date Type Department Care Team (Late st Contact Info) Description 03/24/2024 9:00 AM EDT Office Visit Neurology - [facility] [address] [facility] [address] [place] [address] Martell Calderon MD 2144 [facility] [address] [place] [address] TREMORS/ MEDICARE, FOR LIFE 03/28/2024 8:30 AM EDT Office Visit Primary Care - [address] [address] [place] [address] [place] [phone] AWV 04/06/2024 9:45 AM EST Lab [place] [facility] [address] [facility] [address] [place] [address] CBCMP,CEA,FEST 04/06/2024 10:15 AM EST Office Visit [place] [facility] - [facility] [address] [facility] [address] [place] [address] Georgi Butterfield MD [address] [place] [address] 6 MTH FU W/LABS, REV SCAN 04/13/2024 9:30 AM EST Office Visit Surgical Oncology - [facility] [address] [facility] [address] [place] [phone] Delvis Cheek MD [address] [place] [address] 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
--- OUTSIDE RECORDS SUMMARY | 2024-01-13 21:16 | XMS_ITS | Encounter Summary ---
Author Organization Jose Alejandro [facility]antoja [facility] Address [address] [place] [address] Care Team Providers Care Lining Feller Name Role Phone Felicitas Monaco MD Primary Care Provider [phone] Reason for Visit * Reason Comments Post-Op Check L TKA Encounter Details Date Type Department Care Team (Latest Contact Info) Description 01/22/2023 10:00 AM EDT Office Visit Orthopaedics - [address] [phone] Marquise Moses, UROLOGY PHYSICIAN ASSISTANT - PHP MAGENTO DEVELOPER Presence of artificial knee joint, left (Primary [...] this encounter Progress Notes * Marquise Moses, UROLOGY PHYSICIAN ASSISTANT - PHP MAGENTO DEVELOPER - 01/22/2023 9:59 AM EDT Images from [...] with the patient who was given the [facility] joint replacement notebook and advised to attend the joint class. All questions were answered. Informed consent was given. Patient lives in [place] 4-5 months each year and does a lot of hiking. He has previously been evaluated by Dr. Panchal and deemed a good candidate for righttotal knee arthroplasty Follow-up: After surgery documented in this encounter Plan of Treatment Upcoming Encounters Date Type Department Care Team (Late st Contact Info) Description 03/24/2024 9:00 AM EDT Office Visit Neurology - [facility] [address] [facility] [address] [place] [address] Martell Calderon MD 2144 [facility] [address] [place] [address] TREMORS/ MEDICARE, FOR LIFE 03/28/2024 8:30 AM EDT Office Visit Primary Care - [address] [phone] Cheo Santoyo [address] [address] AWV 04/06/2024 9:45 AM EST Lab [place] [facility] - [facility] [address] [facility] [address] [place] [address] CBCMP,CEA,FEST 04/06/2024 10:15 AM EST Office Visit [place] [facility] - [facility] [address] [facility] [address] [place] [address] Georgi Butterfield MD [address] [place] [address] 6 MTH FU W/LABS, REV SCAN 04/13/2024 9:30 AM EST Office Visit Surgical Oncology - [facility] 20[address] 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 06/19/2024 10:30 AM EST Office Visit Orthopaedics- Les Valencia 615 [facility] 100 [place] [phone] Karly Bautista, BURT [address] [place] [address] annual visit from date of [...] without any issues or concerns Marquise Moses UROLOGY PHYSICIAN ASSISTANT - PHP MAGENTO DEVELOPER IMG DIAGNOST IC IMAGING ORDERABLES documented in this encounter Visit Diagnoses Diagnosis Presence of artificial knee joint, left- Primary Primary osteoarthritis of right knee Primary localized osteoarthrosis, lower leg documented in this encounter Additional Health Concerns Assessment Noted Time A fall risk assessment has been complete d for the patient 01/19/2023 2:33 PM EDT documented as of this encounter Care Teams Lining Feller Relationship Specialty Start Date End Date Felicitas Monaco MD PCP - General Family Medicine 06/18/22 07/05/23 documented as of this encounter
--- OUTSIDE RECORDS SUMMARY | 2024-01-13 21:16 | XMS_ITS | Encounter Summary ---
Author Organization Jose Alejandro Pantoja [facility] Address [address] [place] [address] Care Team Providers Care Skip Operator Name Role Phone Felicitas Monaco MD Primary Care Provider [phone] Encounter Details Date Type Department Care Team (Late st Contact Info) Description 03/04/2023 Orders Only Orthopaedics - [place] [address] [place] [phone] Maurice Panchal MD [address] [address] Preop testing Social History Tobacco Use Types [...] Visit Neurology - [facility] [address] [facility] [address] [place] [address] Martell Calderon MD 2144 [facility] [address] [place] [address] TREMORS/ MEDICARE, FOR LIFE 03/28/2024 8:30 AM EDT Office Visit Primary Care - [address] [phone] Cheo Satnoyo DO [address] [place] [phone] AWV 04/06/2024 9:45 AM EST Lab [place] [facility] - [facility] 2084 [facility] [address] [place] [address] CBCMP,CEA,FEST 04/06/2024 10:15 AM EST Office Visit [place] [facility] - [facility] 2084 [facility] [address] [place] [address] Georgi Butterfield MD [address] [place] [address] 6 MTH FU W/LABS, REV SCAN 04/13/2024 9:30 AM EST Office Visit Surgical Oncology - [facility] 2084 [facility] [address] [place] [phone] Delvis Cheek MD [address] 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 06/19/2024 10:30 AM EST Office Visit Orthopaedics- Les Valencia 615 [facility] 100 [place] [address] Karly Bautista, BURT [address] [facility] 301 [place] [address] annual visit from date [...] MD HEMATOLOGY ORDERABLE S [facility] [address] [facility], [place] [address] * (ABNORMAL) Comprehensive Metabolic Panel (03/04/2023 1:03 [...] PM EDT Maurice Panchal MD CHEMISTRY ORDERABLES [facility] [place] [id number] [facility] [place] [address] documented in this encounter Visit Diagnoses Diagnosis Preop testing Preoperative examination, unspecified documented in this encounter Additional Health Concerns Assessment Noted Time A fall risk assessment has been complete d for the patient 02/26/2023 9:45 AM EDT documented as of this encounter Care Teams Skip Operator Relationship Specialty Start Date End Date Felicitas Monaco MD PCP - General Family Medicine 06/18/22 07/05/23 documented as of this encounter
--- OUTSIDE RECORDS SUMMARY | 2024-01-13 21:16 | XMS_ITS | Encounter Summary ---
Author Organization Jose Alejandro [facility]nea [facility] Address [address] [place] [address] Care Team Providers Care Flight Attendant/Inflight Manager Name Role Phone Felicitas Monaco MD Primary Care Provider [phone] Encounter Details Date Type Department Care Team (Late st Contact Info) Description 03/04/2023 Abstract [facility] - [facility] [place] [address] [facility] [address] [place] [address] Georgi Butterfield MD [address] [place] [address] Social History Tobacco Use Types [...] Neurology - [facility] 2144 [facility] [address] [place] [address] Martell Calderon MD 2144 [facility] [address] [place] [address] TREMORS/ MEDICARE, FOR LIFE 03/28/2024 8:30 AM EDT Office Visit Primary Care - [address] [phone] Cheo Santoyo DO [address] [place] [phone] AWV 04/06/2024 9:45 AM EST Lab [place] [facility] - [facility] [address] [facility] [address] [place] [address] CBCMP,CEA,FEST 04/06/2024 10:15 AM EST Office Visit [place] [facility] - [facility] [address] [facility] [address] [place] [address] Georgi Butterfield MD [address] [place] [address] 6 MTH FU W/LABS, REV SCAN 04/13/2024 9:30 AM EST Office Visit Surgical Oncology - [facility] 20[address] [facility] [address] [place] [phone] Delvis Cheek MD 125 [facility] [address] [place] [address] 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 documented as of this encounter Visit Diagnoses Not on filedocumented in this encounter Additional Health Concerns Assessment Noted Time A fall risk assessment has been complete d for the patient 02/26/2023 9:45 AM EDT documented as of this encounter Care Teams Flight Attendant/Inflight Manager Relationship Specialty Start Date End Date Felicitas Monaco MD PCP - General Family Medicine 06/18/22 07/05/23 documented as of this encounter
--- OUTSIDE RECORDS SUMMARY | 2024-01-13 21:16 | XMS_ITS | Encounter Summary ---
Author Organization Jose Alejandro Raymundolinnea [facility]ushing[facility] Address [address] [place] [address] Care Team Providers Care Engineering Vice President Name Role Phone Felicitas Monaco MD Primary Care Provider [phone] Encounter Details Date Type Department Care Team (Late st Contact Info) Description 03/04/2023 Orders Only Primary Care - [address] [place] [address] Felicitas Monaco MD [address] [place] [address] Mixed hyperlipidemia; Well controlled diabetes [...] Neurology - [facility] [address] [facility] [address] [place] [address] Martell Calderon MD 2144 [facility] [address] [place], [place] [phone] TREMORS/ MEDICARE, FOR LIFE 03/28/2024 8:30 AM EDT Office Visit Primary Care - [address] [phone] Cheo Santoyo, [address] [address] AWV 04/06/2024 9:45 AM EST Lab [place] [facility] - [facility] [address]84 [facility] [address] [place] [address] CBCMP,CEA,FEST 04/06/2024 10:15 AM EST Office Visit [place] [facility] - [facility] [address] [facility] [address] [place] [address] Georgi Butterfield MD [address] [place] [address] 6 MTH FU W/LABS, REV SCAN 04/13/2024 9:30 AM EST Office Visit Surgical Oncology - [facility], [facility] Valencia [address]84 [facility] [address] [place] [phone] Delvis Cheek MD 125 [facility] 660 [place] [address] 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 [address] [place] [address] Karly Bautista PA [address] [place] [address] annual visit from date of [...] MD CHEMISTRY ORDERABLE S Performing Organization Address City/State/[facility] Co de Phone Number [facility] [address] [facility], [facility] [place] [address] * CBC (03/04/2023 1:05 PM EDT) WBC [...] MD HEMATOLOGY ORDERABL ES Performing Organization Address [facility] de Phone Number [facility] [address] [place] [address] * Hepatitis C Antibody (03/04/2023 1:05 PM EDT) Hepatitis C Ab Negative Negative [facility] Blood BLOOD SPECIMEN / Unknown 03/04/2023 1:05 PM EDT 03/04/2023 4:05 PM EDT Felicitas Monaco MD IMMUNOLOGY ORDERABL ES Performing Organization Address [facility] de Phone Number [facility] [address] [place] [address] * (ABNORMAL) Hemoglobin A1C (03/04/2023 1:05 PM EDT) Hemoglobin A1C 6.5(H) 4.0 - 6.0 % [facility] Comment: HEMOGLOBIN A1C [...] [facility] Est. Avg. Glucose-calculated [address] [facility] Blood BLOOD SPECIMEN / Unknown 03/04/2023 1:05 PM EDT 03/04/2023 4:05 PM EDT Felicitas Monaco MD CHEMISTRY ORDERABLE S [facility] [address] [facility], [place] [address] * Lipid Panel (03/04/2023 1:05 PM EDT) Cholesterol 115 100 - 200 mg/dL [facility] Comment: The National Cholesterol Education Program has published reference cholesterol values for cardiovascular risk to be: Less than 200 mg/dL ? = Low Risk 200 to 239 mg/dL ?= Borderline Risk 240mg/dL and greater ?= High Risk HDL 40 >=40 mg/dL [facility] Comment: The National Lipid Association and the National Cholesterol Education Program (NCEP) have set the guidelines for high-density lipoprotein (HDL) cholesterol in adults ages 18 and up. Triglycerides 90 0 - 149 mg/dL [facility] Comment: TRIGLYCERIDE INTERPRETATION: [...] MD CHEMISTRY ORDERABLE S Performing Organization Address City/State/[facility] Co de Phone Number [facility] [address] [facility], [facility] A [place] [phone] documented in this encounter Visit Diagnoses Diagnosis [...] documented as of this encounter Care Teams Engineering Vice President Relationship Specialty Start Date End Date Felicitas Monaco MD PCP - General Family Medicine 06/18/22 07/05/23 documented as of this encounter
--- OUTSIDE RECORDS SUMMARY | 2024-01-13 21:16 | XMS_ITS | Encounter Summary ---
Author Organization Jose Alejandro Raymundolinnea Rushingmarysol [facility] Address [address] [place] [address] Care Team Providers Care Food And Drug Research Scientist Name Role Phone Felicitas Monaco MD Primary Care Provider [phone] Reason for Visit * Reason Comments Medicare AWV Encounter Details Date Type Department Care Team (Late st Contact Info) Description 03/01/2023 11:00 AM EDT Office Visit Primary Care - [address] [place] [address] Felicitas Monaco MD [address] [place] [address] Medicare annual wellness visit, subsequent (Primary [...] Where can you learn more? Go to [email or web address]/patientEd and enter W864 to learn more about Fatigue: Care Instructions. Current as of: November 22, 2022?Content Version: 13.8 ?? [employer]. Care instructions adapted under license by [employer]. If you have questions about a medical condition or this instruction, always ask your healthcare professional. [employer] disclaims any warranty or liability for your [...] Where can you learn more? Go to [email or web address]/patientEd and enter X011 to learn more about Hearing Loss: Care Instructions. Current as of: July 28, 2022?Content Version: 13.8 ?? [employer]. Care instructions adapted under license by [employer]. If you have questions about a medical condition or this instruction, always ask your healthcare professional. [employer] disclaims any warranty or liability for your [...] irregular heartbeat. After you call 911, the halftone operator may tell you to chew 1 [...] of: November 22, 2022?Content Version: 13.8 ?? [employer]. Care instructions adapted under license by [employer]. If you have questions about a medical condition or this instruction, always ask your healthcare professional. [employer] disclaims any warranty or liability for your [...] A preventive eye exam performed by an translational specialist is recommended every 1-2 years to screen for glaucoma; cataracts, macular degeneration, and other eye disorders. A preventive dental visit is recommended every 6 months. Try to get at least 150 minutes of exercise per week or 10,000 steps per day on a pedometer . Order or download the FREE Exercise & Physical Activity: Your Everyday Guide from The [employer] [place] [employer]. Call or search [employer] [place] [employer] online. You need 8383-1168 mg of calcium and 9862-1947 IU of vitamin D per day. It [...] time. Limited mobility. -[place] [facility] [place] had no recommendations for surgery. Has [...] to d/c the Carafate and iron. -his curriculum specialist felt the ulcer was related to his [...] Office Visit Neurology - Maryan [address] [place] [address] Martell Calderon MD [address] [facility] [address] [place] [address] TREMORS/ MEDICARE, FOR LIFE 03/28/2024 8:30 AM EDT Office Visit Primary Care - [address] [address] Cheo Santoyo DO [address] [place] [address] AWV 04/06/2024 9:45 AM EST Lab [facility] - [facility] [address] [facility] [address] [place] [address] CBCMP,CEA,FEST 04/06/2024 10:15 AM EST Office Visit [facility] - [facility] [address] [facility] [address] [place] [address] Georgi Butterfield MD [address] [place] [address] 6 MTH FU W/LABS, REV SCAN 04/13/2024 9:30 AM EST Office Visit Surgical Oncology - [facility] [address] [facility] [address] [place] [address] Delvis Cheek MD 125 [facility] [address] [place] [address] 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 documented as of this encounter Results * Lipid Panel (03/04/2023 1:05 PM EDT) [facility] Cholesterol 115 100 - 200 mg/dL RS [...] MD CHEMISTRY ORDERABLE S Performing Organization Address City/State/[facility] Co de Phone Number [facility] [address] [place] [address] * (ABNORMAL) Hemoglobin A1C (03/04/2023 1:05 PM EDT) Hemoglobin A1C 6.5(H) 4.0 - 6.0 % [facility] Comment: HEMOGLOBIN A1C [...] Inadequate Control Est. Avg. Glucose, WB 140 [facility] Est. Avg. Glucose-calculated 154 [facility] Blood BLOOD SPECIMEN / Unknown 03/04/2023 1:05 PM EDT 03/04/2023 4:05 PM EDT Felicitas Monaco MD CHEMISTRY ORDERABLE S Performing Organization Address City/State/[facility] Co de Phone Number [facility] [address] [facility] [address] documented in this encounter Visit Diagnoses Diagnosis Medicare annual wellness visit, subsequent- Primary Routine general medical examination at a health care facility Well controlled diabetes mellitus (HCC) Mixed hyperlipidemia documented in this encounter Additional Health Concerns Assessment Noted Time A fall risk assessment has been complete d for the patient 02/26/2023 9:45 AM EDT documented as of this encounter Care Teams Food And Drug Research Scientist Relationship Specialty Start Date End Date Felicitas Monaco MD PCP - General Family Medicine 06/18/22 07/05/23 documented as of this encounter
--- OUTSIDE RECORDS SUMMARY | 2024-01-13 21:16 | XMS_ITS | Encounter Summary ---
Author Organization [facility] Address [address] [place] [address] Care Team Providers Care User Interface Designer Name Role Phone Felicitas Monaco MD Primary Care Provider [phone] Encounter Details Date Type Department Care Team (Late st Contact Info) Description 01/22/2023 10:10 AM EDT Ancillary Procedure Orthopaedics - [address] [address] Social History Tobacco Use Types [...] Visit Neurology - [facility] [address] [facility] [address] [place] [address] Martell Calderon MD [address] [facility] [address] [place] [address] TREMORS/ MEDICARE, FOR LIFE 03/28/2024 8:30 AM EDT Office Visit Primary Care - [address] [address] Cheo Santoyo DO [address] [place] [phone] AWV 04/06/2024 9:45 AM EST Lab [facility] - [facility] [address] [facility] [address] [place] [address] CBCMP,CEA,FEST 04/06/2024 10:15 AM EST Office Visit [facility] - [facility] [address] [facility] [address] [place] [address] Georgi Butterfield MD 35[address] [facility] [address] [place] [address] 6 MTH FU W/LABS, REV SCAN 04/13/2024 9:30 AM EST Office Visit Surgical Oncology - [facility] [address] [facility] [address] [place] [address] Delvis Cheek MD [address] 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 06/19/2024 10:30 AM EST Office Visit Orthopaedics- Les Valencia [address] [facility] [address] [place] [address] Karly Bautista, BURT [address] [place] [address] annual visit from date of [...] without any issues or concerns Marquise Moses BUILDING OPERATOR - ORIENTAL RUG REPAIRER IMG DIAGNOST IC IMAGING ORDERABLES documented in this encounter Visit Diagnoses Not on filedocumented in this encounter Additional Health Concerns Assessment Noted Time A fall risk assessment has been complete d for the patient 01/19/2023 2:33 PM EDT documented as of this encounter Care Teams User Interface Designer Relationship Specialty Start Date End Date Felicitas Monaco MD PCP - General Family Medicine 06/18/22 07/05/23 documented as of this encounter
--- OUTSIDE RECORDS SUMMARY | 2024-01-13 21:16 | XMS_ITS | Encounter Summary ---
Author Organization Jose Alejandro Kit [facility] Address [address] [place] [address] Care Team Providers Care Full Time Name Role Phone Felicitas Monaco MD Primary Care Provider [phone] Reason for Visit * Auth/Cert (Routine) Specialty Diagnoses / Procedures Referred By Rachid jimenez Referred To Contact Diagnoses Primary osteoarthritis of left knee Primary osteoarthritis of left knee [M17.12] Procedures AL ARTHRP KNE CONDYLE&PLATU MEDIAL&LAT COMPARTMENTS LEFT TOTAL KNEE ARTHROPLASTY, ROBOTIC Maurice Panchal MD [address] [address] Referral ID Status Reason Start Date Expiration Date Visits Re quested Visits Authorized [id number] 1 1 Encounter Details Date Type Department Care Team (Late st Contact Info) Description 12/21/2022 7:30 AM EDT - 12/21/2022 8:30 AM EDT Surgery [facility] [address] [address] Maurice Panchal MD [address] [address] LEFT TOTAL KNEE ARTHROPLASTY, ROBOTIC Surgery Details [...] MD Primary Orthopedics 1 Special Needs Daxa Security Guard/Stewart 12/17 documented in this encounter Social History [...] your leg to the starting point. ?? [phone] The [employer]. All rights reserved. This information is not intended as a substitute for professional medical care. Always follow your healthcare professional's instructions. * Attachments The following attachments cannot be sent through Care Everywhere. * acetaminophen (oral) (Israeli) * aspirin (oral) (Israeli) * celecoxib (Israeli) * Constipation (Israeli) * DVT (Deep Vein Thrombosis) (Israeli) * oxycodone (Israeli) * Pulmonary Embolism (Israeli) documented in this encounter Medications at Time [...] Acute Care Physical Therapy Treatment Note Observation (CREDIT RISK OFFICER/PT Visit Days : 2) Time In: 1449 [...] program; Therapeutic activities Goals Short Term Goals Standards Engineer Goals Time Frame for Short Term Goals: [...] included. Acute Care Physical Therapy Evaluation Observation (CREDIT RISK OFFICER/PT Visit Days : 1) Time In: 1449 [...] program, Therapeutic activities Goals Short Term Goals Standards Engineer Goals Time Frame for Short Term Goals: [...] EDT Pre Procedure Patient Instructions Procedure Location hospital:[facility] [address] [facility]- Arrival before 6:30a: Park in front [...] Living Will and/or Medical Durable Power of Cigarette Stamper if you have one Bring a list [...] you have any additional questions please contact [phone] For financial questions regarding your procedure at a [facility], please contact [phone], option 1 For financial questions regarding anesthesia at a [facility], please contact [phone] documented in this encounter Plan of Treatment Upcoming Encounters Date Type Department Care Team ([facility] st Contact Info) Description 03/24/2024 9:00 AM EDT Office Visit Neurology - Maryan [address]sen Dr[address] [place] [address] Martell Calderon MD [address] [facility] [address] [place] [address] TREMORS/ MEDICARE, FOR LIFE 03/28/2024 8:30 AM EDT Office Visit Primary Care - [address] [address] Cheo Santoyo DO [address] [place] [address] AWV 04/06/2024 9:45 AM EST Lab [facility] - [facility] [address] [facility] [address] [place] [address] CBCMP,CEA,FEST 04/06/2024 10:15 AM EST Office Visit [facility] - [facility] [address] [facility] [address] [place] [address] Georgi Butterfield MD [address] [place] [address] 6 MTH FU W/LABS, REV SCAN 04/13/2024 9:30 AM EST Office Visit Surgical Oncology - [facility] [address] [facility] [address] [place] [address] Delvis Cheek MD 125 [facility] 660 [place] [address] 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 documented as of this encounter Procedures Procedure Name Priority Date/Time Associated Diagnosis Comments AL ARTHRP KNE CONDYLE&PLATU MEDIAL&LAT COMPARTMENTS 12/21/2022 7:24 AM EDT Primary osteoarthritis of left knee Special Needs Daxacatarino Summers/Stewart 12/17 POCT GLUCOSE Routine 12/21/2022 7:02 AM EDT documented in this encounter Results * (ABNORMAL) POCT Glucose (12/21/2022 7:02 AM EDT) POC Glucose 127.0(H) 65.0 - 110.0 mg/dL [facility] Comment:MP - AMB PACU Blood 12/21/2022 7:02 AM EDT 12/21/2022 7:02 AM EDT Maurice Panchal MD POINT OF CARE TEST O RDERABLES Performing Organization Address City/State/[facility] Co de Phone Number [facility] [address] [place] [address] documented in this encounter Visit Diagnoses Diagnosis [...] Assess pain q4hrs May increase/decrease 2 ml/hr [id number] for adequate pain control pain up to max of 14 ml/hr Decrease infusion rate to 4 ml/hr [id number] prior to physical therapy or ambulation for [...] mL IVPB (mini-bag) (COMPLETED) 2,000 mg, IntraVENous, CERTIFIED HYPERBARIC TECHNICIAN TO O.R., 1 dose, On Wed12/21/22 at [...] at 400 mL/hr, Administer over 15 Minutes, CERTIFIED HYPERBARIC TECHNICIAN TO O.R., On Wed12/21/22 at 0630, For [...] Assess pain q4hrs May increase/decrease 2 ml/hr [id number] for adequate pain control pain up to max of 14 ml/hr Decrease infusion rate to 4 ml/hr [id number] prior to physical therapy or ambulation for [...] Post-op documented in this encounter Care Teams Full Time Relationship Specialty Start Date End Date Felicitas Monaco MD PCP - General Family Medicine 06/18/22 07/05/23 documented as of this encounter
--- OUTSIDE RECORDS SUMMARY | 2024-01-13 21:16 | XMS_ITS | Encounter Summary ---
Author Organization Jose Alejandro Kit [facility] Address [address] [place] [address] Care Team Providers Care Fraud Analyst Name Role Phone Felicitas Monaco MD Primary Care Provider [phone] Reason for Visit * Auth/Cert (Routine) Specialty Diagnoses / Procedures Referred By Rachid jimenez Referred To Contact Diagnoses Primary osteoarthritis of right knee Primary osteoarthritis of right knee [M17.11] Procedures CT ARTHRP KNE CONDYLE&PLATU MEDIAL&LAT COMPARTMENTS RIGHT TOTAL KNEE ARTHROPLASTY, ROBOTIC Maurice Panchal MD [address] [address] Referral ID Status Reason Start Date Expiration Date Visits Re quested Visits Authorized [id number] 1 1 Encounter Details Date Type Department Care Team (Late st Contact Info) Description 03/17/2023 9:30 AM EDT - 03/17/2023 10:30 AM EDT Surgery [facility] [address] [place] [address] Maurice Panchal MD [address] [id number] RIGHT TOTAL KNEE ARTHROPLASTY, ROBOTIC Surgery Details [...] MD Primary Orthopedics 1 Special Needs Daxa Finish Specialist/mg mcarthur documented in this encounter Social History [...] 7-10 days after day of surgery 3. Hondo are removed 10-14 days after surgery Then [...] - please call Dr. Panchal's office at [phone] AQUACEL DRESSING Aquacel?? Ag dressing is a [...] dressing No dressing required FOR TOTAL KNEES: Hondo will be removed by home health 10-14 [...] NUMBERS - 24 HOUR patient nursing hotline: [phone] Call your doctor if you have: A [...] 10 to 30 times each hour. ?? [phone] The [employer]. All rights reserved. This information is not [...] when you can stop using them. ?? [phone] [employer]. All rights reserved. This information is not [...] have about your recovery or activities. ?? [phone] [employer]. All rights reserved. This information is not [...] your leg to the starting point. ?? [phone] [employer]. All rights reserved. This information is not [...] your leg to the starting point. ?? [phone] [employer]. All rights reserved. This information is not intended as a substitute for professional medical care. Always follow your healthcare professional's instructions. * Attachments The following attachments cannot be sent through Care Everywhere. * acetaminophen (oral) (Kenyan) * aspirin (oral) (Kenyan) * celecoxib (Kenyan) * docusate (oral/rectal) (Kenyan) * Constipation (Kenyan) * DVT (Deep Vein Thrombosis) (Kenyan) * Pulmonary Embolism (Kenyan) documented in this encounter Medications at Time [...] this encounter Progress Notes * Chrissy Mcdonnell, RESIDENTIAL THERAPIST - 03/18/2023 1:26 PM EDT Images from the original note were not included. Acute Care Physical Therapy Treatment Note Observation (RESIDENTIAL THERAPIST/PT Visit Days : 2) Time In: 911 [...] Within Normal Limits Orientation Level: Oriented X4 [facility]?6 Clicks?? Basic Mobility Inpatient Short Form [...] 3-5 steps with a railing?: A Little [facility] Inpatient Mobility Raw Score : 22 [facility] Inpatient T-Scale Score : 53.28 [...] length Distance: 200 FT Therapeutic Exercise (CPT 69109) (8 minutes) Exercise Treatment: PERFORMED HEELSLIDES FOR ROM X 5 REPS; REVIEWED ANKLE PUMPS, QUAD SETS AND GLUTEAL SETS To Improve:activity tolerance, AROM, strength, and mobility Gait Training (20 Minutes) CPT 83154: Gait training for 200 feet utilizing Gait [...] UNDERSTANDING OF STG 3 Short Term Goals Digging Machine Operator Goals Time Frame for Short [...] Homemaking Assistance: Independent Homemaking Responsibilities: Yes Active Wire Inserter: Yes 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 Safety: Type of Devices: All fall risk precautions in place;Gait belt;Call light within reach;Left in chair;Nurse notified Education: Education Given To: Patient Education Provided: Role of Therapy;ADL Adaptive Strategies;Energy Conservation;Fall Prevention Strategies;Transfer Training Education Method: Demonstration;Verbal Education Outcome: Verbalized understanding;Demonstrated understanding [facility] AM-PAC?6 Clicks?? Basic ADL Inpatient Short [...] 12:23 PM EDT Orthopedic Progress Note Date:03/18/2023 Room:[address] [place] [address] Patient Name:Martínez Toribio Date of :1955 Age:68 [...] included. Acute Care Physical Therapy Evaluation Observation (RESIDENTIAL THERAPIST/PT Visit Days : 1) Time In: 1733 [...] Positioning, Therapeutic activities Goals Short Term Goals Long-Term Goals Time [...] EDT Pre Procedure Patient Instructions Procedure Location hospital:[facility] [address], [facility]- If your arrival is scheduled between 6:30a-4:30p: Enter building at Outpatient Services, turn right and follow hallway to [facility], then take stairs or elevator to [...] Living Will and/or Medical Durable Power of Last Code Striper if you have one Bring a list [...] you have any additional questions please contact [phone] To pre-register for your procedure please call [phone] Option 1 For financial questions regarding your procedure at a [facility] facility, please contact [phone] For financial questions regarding anesthesia at a [facility] facility, please contact [phone] For [employer] Patient Portal help please call [phone] documented in this encounter Plan of Treatment Upcoming Encounters Date Type Department Care Team (Late st Contact Info) Description 03/24/2024 9:00 AM EDT Office Visit Neurology - [facility] [place] [address] [facility] [address] [place] [address] Martell Calderon MD [address] [facility] [address] [place] [address] TREMORS/ MEDICARE, FOR LIFE 03/28/2024 8:30 AM EDT Office Visit Primary Care - [address] [address] Cheo Santoyo DO [address] [place] [address] AWV 04/06/2024 9:45 AM EST Lab [facility] [address] [facility] [address] [place] [address] CBCMP,CEA,FEST 04/06/2024 10:15 AM EST Office Visit [facility] - [facility] [place] [address] [facility] [address] [place] [address] Georgi Butterfield MD [address] [place] [address] 6 MTH FU W/LABS, REV SCAN 04/13/2024 9:30 AM EST Office Visit Surgical Oncology - [facility] [place] [address] [facility] [address] [place] [address] Delvis Cheek MD [address] [place] [address] 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 [address] [facility] [address] [place] [address] * POCT Glucose (03/17/2023 8:11 AM EDT) POC Glucose 108.0 65.0 - 110.0 mg/dL [facility] Comment:MP - AMB PACU Blood 03/17/2023 8:11 AM EDT 03/17/2023 8:11 AM EDT Maurice Panchal MD POINT OF CARE TEST O RDERABLES [facility] [address] [place] [address] documented in this encounter Visit Diagnoses Diagnosis [...] Assess pain q4hrs May increase/decrease 2 ml/hr [id number] for adequate pain control pain up to max of 14 ml/hr Decrease infusion rate to 4 ml/hr [id number] prior to physical therapy or ambulation for [...] mL IVPB (mini-bag) (COMPLETED) 2,000 mg, IntraVENous, PUFFER TENDER TO O.R., 1 dose, On Wed03/17/23 at [...] at 400 mL/hr, Administer over 15 Minutes, PUFFER TENDER TO O.R., On Wed03/17/23 at 0800, For [...] Assess pain q4hrs May increase/decrease 2 ml/hr [id number] for adequate pain control pain up to max of 14 ml/hr Decrease infusion rate to 4 ml/hr [id number] prior to physical therapy or ambulation for [...] documented as of this encounter Care Teams Fraud Analyst Relationship Specialty Start Date End Date Felictias Monaco MD PCP - General Family Medicine 06/18/22 2 documented as of this encounter
--- OUTSIDE RECORDS SUMMARY | 2024-01-13 21:16 | XMS_ITS | Encounter Summary ---
Author Organization Jose Alejandro [facility] Address [address] [place] [address] Care Team Providers Care Front Office Administrator Name Role Phone Felicitas Monaco MD Primary Care Provider [phone] Encounter Details Date Type Department Care Team [...] Neurology - Maryan Jacobsen Dr. [address] [place] [address] Martell Calderon MD [address] [place] [address] TREMORS/ MEDICARE, FOR LIFE 03/28/2024 8:30 AM EDT Office Visit Primary Care - [address] [address] Cheo Santoyo DO [facility] [place] [address] AWV 04/06/2024 9:45 AM EST Lab [facility] 2084 [facility] [place] [address] [place] [address] CBCMP,CEA,FEST 04/06/2024 10:15 AM EST Office Visit [facility] - [facility] 2084 [facility] [place] [address] [place] [address] Georgi Butterfield MD [address] [place], [place] [address] 6 MTH FU W/LABS, REV SCAN 04/13/2024 9:30 AM EST Office Visit Surgical Oncology - [facility] 2084 [facility] [place] [address] [place] [address] Delvis Cheek MD 125 [facility] 660 [place] [address] 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 documented as of this encounter Visit Diagnoses Not on filedocumented in this encounter Care Teams Front Office Administrator Relationship Specialty Start Date End Date Felicitas Monaco MD PCP - General Family Medicine 06/18/22 07/05/23 documented as of this encounter
--- OUTSIDE RECORDS SUMMARY | 2024-01-13 21:16 | XMS_ITS | Encounter Summary ---
Author Organization Jose Alejandro Raymundolinnea [facility] Address [address] [place] [address] Care Team Providers Care Insurance Account Assistant Name Role Phone Felicitas Monaco MD Primary Care Provider [phone] Reason for Visit * Auth/Cert (Routine) Specialty Diagnoses / Procedures Referred By Rachid jimenez Referred To Contact Diagnoses Primary osteoarthritis of left knee Primary osteoarthritis of left knee [M17.12] Procedures [place] ARTHRP KNE CONDYLE&PLATU MEDIAL&LAT COMPARTMENTS LEFT TOTAL KNEE ARTHROPLASTY, ROBOTIC Maurice Panchal MD [address] [address] Referral ID Status Reason Start Date Expiration Date Visits Re quested Visits Authorized [id number] 1 1 Encounter Details Date Type Department Care Team (Latest Contact Info) Description 12/21/2022 6:04 AM EDT - 12/21/2022 7:00 PM EDT Hospital Encounter RMP 3 [facility] [address] [place] [address] Maurice Panchal MD [address] [address] Primary osteoarthritis of left knee (Primary Dx) [...] your leg to the starting point. ?? [id number] [employer]. All rights reserved. This information is not intended as a substitute for professional medical care. Always follow your healthcare professional's instructions. * Attachments The following attachments cannot be sent through Care Everywhere. * acetaminophen (oral) (Bhutanese) * aspirin (oral) (Bhutanese) * celecoxib (Bhutanese) * Constipation (Bhutanese) * DVT (Deep Vein Thrombosis) (Bhutanese) * oxycodone (Bhutanese) * Pulmonary Embolism (Bhutanese) documented in this encounter Medications at Time [...] Acute Care Physical Therapy Treatment Note Observation (PROGRAM AIDE GROUP WORK/PT Visit Days : 2) Time In: 1449 [...] program; Therapeutic activities Goals Short Term Goals Gold Cutter Goals Time Frame for Short Term Goals: [...] included. Acute Care Physical Therapy Evaluation Observation (PROGRAM AIDE GROUP WORK/PT Visit Days : 1) Time In: 1449 [...] program, Therapeutic activities Goals Short Term Goals Longterm Goals Time Frame for Short Term Goals: [...] EDT Pre Procedure Patient Instructions Procedure Location hospital:[facility] 3500 [facility] 17[facility]- Arrival before 6:30a: Park in front [...] Living Will and/or Medical Durable Power of Nurse Midwife/Clinical Instructor if you have one Bring a [...] you have any additional questions please contact [phone] For financial questions regarding your procedure at a [facility], please contact [phone], option 1 For financial questions regarding anesthesia at a [facility], please contact [phone] documented in this encounter Plan of Treatment Upcoming Encounters Date Type Department Care Team (Late st Contact Info) Description 03/24/2024 9:00 AM EDT Office Visit Neurology - Maryan Jacobsen Dr. [address] [place] [address] Martell Calderon MD 2145 [facility] [address] [place] [address] TREMORS/ MEDICARE, FOR LIFE 03/28/2024 8:30 AM EDT Office Visit Primary Care - [address] [address] Cheo Santoyo DO [address] [place] [address] AWV 04/06/2024 9:45 AM EST Lab [facility] - Maryan Jacobsen Dr[address] [place] [address] CBCMP,CEA,FEST 04/06/2024 10:15 AM EST Office Visit [facility] - Maryan Jacobsen Dr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 [address] [place] [address] Karly Bautista, PA [address] [place] [address] annual visit from date of surgery May/Jul 2024 for bilateral TKA and right LIZZ with Karly. documented as of this encounter Procedures Procedure Name Priority Date/Time Associated Diagnosis Comments TN ARTHRP KNE CONDYLE&PLATU MEDIAL&LAT COMPARTMENTS 12/21/2022 7:24 AM EDT Primary osteoarthritis of left knee Special Needs [place] Election Assistant/Stewart 12/17 POCT GLUCOSE Routine 12/21/2022 7:02 AM EDT documented in this encounter Results * (ABNORMAL) POCT Glucose (12/21/2022 7:02 AM EDT) POC Glucose 127.0(H) 65.0 - 110.0 mg/dL [facility] Comment:MP - AMB PACU Blood 12/21/2022 7:02 AM EDT 12/21/2022 7:02 AM EDT Maurice Panchal MD POINT OF CARE TEST O RDERABLES [facility] [address] [place] [address] documented in this encounter Visit Diagnoses Diagnosis [...] Assess pain q4hrs May increase/decrease 2 ml/hr [id number] for adequate pain control pain up to max of 14 ml/hr Decrease infusion rate to 4 ml/hr [id number] prior to physical therapy or ambulation for [...] mL IVPB (mini-bag) (COMPLETED) 2,000 mg, IntraVENous, PAINT BRUSH MAKER TO O.R., 1 dose, On Wed12/21/22 at [...] at 400 mL/hr, Administer over 15 Minutes, PAINT BRUSH MAKER TO O.R., On Wed12/21/22 at 0630, For [...] Assess pain q4hrs May increase/decrease 2 ml/hr [id number] for adequate pain control pain up to max of 14 ml/hr Decrease infusion rate to 4 ml/hr [id number] prior to physical therapy or ambulation for lower extremity nerve catheters. 0845 (New Bag - Prov ider: Julieth Kline RN)0927 ([facility] Hold - Provider: Olivia Autohold - Reason: Patient not available)0942 ([facility] Unhold - Provider: Olivia Autohold)1645 (Stopped [...] Post-op documented in this encounter Care Teams Insurance Account Assistant Relationship Specialty Start Date End Date Felicitas Monaco MD PCP - General Family Medicine 06/18/22 07/05/23 documented as of this encounter
--- OUTSIDE RECORDS SUMMARY | 2024-01-13 21:16 | XMS_ITS | Encounter Summary ---
Author Organization Jose Alejandro Kit [facility] Address [address] [place] [address] Care Team Providers Care Internet Sales Consultant Name Role Phone Felicitas Monaco MD Primary Care Provider [phone] Encounter Details Date Type Department Care Team (Late st Contact Info) Description 11/30/2022 Orders Only Orthopaedics - [place] [address] [phone] Maurice Panchal MD [address] [address] Social History Tobacco Use Types Packs/Day Years [...] [address] [place] [address] Martell Calderon MD [address] [place] [address] TREMORS/ MEDICARE, FOR LIFE 03/28/2024 8:30 AM EDT Office Visit Primary Care - [address] [address] Cheo Santoyo DO 1112 [place] [address] AWV 04/06/2024 9:45 AM EST Lab [facility] - [facility] [place] 2084 [facility] [address] [place] [address] CBCMP,CEA,FEST 04/06/2024 10:15 AM EST Office Visit [place] - [facility] [place] 2084 [facility] [address] [place] [address] Georgi Butterfield MD 3510 [facility] [address] [place], [place] [address] 6 MTH FU W/LABS, REV SCAN 04/13/2024 9:30 AM EST Office Visit Surgical Oncology - [facility] [place] 2084 [facility] [address] [place] [address] Delvis Cheek MD 125 [facility] 660 [place] [address] 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 documented as of this encounter Visit Diagnoses Not on filedocumented in this encounter Care Teams Internet Sales Consultant Relationship Specialty Start Date End Date Felicitas Monaco MD PCP - General Family Medicine 06/18/22 07/05/23 documented as of this encounter
--- OUTSIDE RECORDS SUMMARY | 2024-01-13 21:16 | XMS_ITS | Encounter Summary ---
Author Organization [facility] Address [address] [place] [address] Care Team Providers Care Kennel Keeper Name Role Phone Felicitas Monaco MD Primary Care Provider [phone] Reason for Referral * Surgical (Routine) - Closed Specialty Diagnoses / Procedures Referred By Rachid jimenez Referred To Contact Orthopedic Surgery Diagnoses Primary osteoarthritis of right knee Maurice Panchal MD [address] [place] [address] Maurice Panchal MD [address] [place] [address] Referral ID Status Reason Start Date Expiration Date V isits Requested Visits Authorized [id number] Closed Insurance 11/27/2022 11/27/2023 1 1 [place] [address] M17.11 DATE [facility] Maurice Panchal MD, Orthopaedics MPH [address] [address] Comments The patient can be scheduled with any member of the group, including the provider with the first available appointments. * Imaging (Routine) - Closed Specialty Diagnoses / Procedures Referred By Rachid jimenez Referred To Contact Radiology Diagnoses Knee deformity, acquired, right Procedures CT KNEE RIGHT WO CONTRAST Maurice Panchal MD [address] [place] [address] Referral ID Status Reason Start Date Expiration Date Visits Re quested Visits Authorized [id number] Closed 11/27/2022 11/27/2023 1 1 Encounter Details Date Type Department Care Team (Late Contact Info) Description 11/27/2022 Orders Only Orthopaedics - [place] [address] [place] [address] Maurice Panchal MD [address] [place] [address] Preop testing (Primary Dx); Knee deformity, acquired, [...] 9:00 AM EDT Office Visit Neurology - [facility] 2145 [facility] [address] [place] [address] Martell Calderon MD 214 [facility] [address] [place] [address] TREMORS/ MEDICARE, FOR LIFE 03/28/2024 8:30 AM EDT Office Visit Primary Care - [address] [phone] Cheo Santoyo DO [address] [place] [phone] AWV 04/06/2024 9:45 AM EST Lab [facility] - [facility] 2084 [facility] [address] [place] [address] CBCMP,CEA,FEST 04/06/2024 10:15 AM EST Office Visit [place] - [facility] 2084 [facility] [address] [place] [address] Georgi Butterfield MD [address] [place] [address] 6 MTH FU W/LABS, REV SCAN 04/13/2024 9:30 AM EST Office Visit Surgical Oncology - [facility] 2084 [facility] [address] [place] [address] Delvis Cheek MD 125 [facility] 660 [place] [address] 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 06/19/2024 10:30 AM EST Office Visit Orthopaedics- Les Valencia 615 [facility] [address] [place] [address] Karly Bautista PA [address] [place] [address] annual visit from date of [...] PM EDT Maurice Panchal MD CHEMISTRY ORDERABLES [facility] DEL[place]IS OSORIO [address] [facility], [place] [address] * CBC (03/04/2023 1:03 PM EDT) Pathologist [...] MD HEMATOLOGY ORDERABLE S Performing Organization Address City/State/[facility] Co de Phone Number [facility] [address] [facility], [facility] [place] [address] * CT KNEE RIGHT WO CONTRAST (02/10/2023 1:36 PM EDT) Anatomical Region Laterality Modality Thigh, Knee, Leg Computed Tomogr aphy 02/10/2023 4:22 PM EDT Impressions 02/10/2023 4:23 PM EDT Severe tricompartment degenerative change of the knee. Images performed for preoperative planning. Narrative 02/10/2023 4:[address] right knee without contrast: 02/10/23 INDICATION: evaluate joint deformity for surgery with Blair Hugo. COMPARISON: 08/20/2022 TECHNIQUE: Axial CT images [...] right documented in this encounter Care Teams Kennel Keeper Relationship Specialty Start Date End Date Felicitas Monaco MD PCP - General Family Medicine 06/18/22 07/05/23 documented as of this encounter
--- OUTSIDE RECORDS SUMMARY | 2024-01-13 21:16 | XMS_ITS | Encounter Summary ---
Author Organization Jose Alejandro Pantoja [facility] Address [address] [place] [address] Care Team Providers Care Subassembly Supervisor Name Role Phone Felicitas Monaco MD Primary Care Provider [phone] Encounter Details Date Type Department Care Team (Late st Contact Info) Description 03/01/2023 Orders Only Orthopaedics - [address] [phone] Maurice Panchal MD [address] [address] Preop testing (Primary Dx) Social History Tobacco [...] Visit Neurology - [facility] 2144 [facility] [place] [address] [place] [address] Martell Calderon MD 2144 [facility] [address] [place] [address] TREMORS/ MEDICARE, FOR LIFE 03/28/2024 8:30 AM EDT Office Visit Primary Care - [address] [address] Cheo Santoyo DO [address] [place] [address] AWV 04/06/2024 9:45 AM EST Lab [place] [facility] - [facility] 2084 [facility] [address] [place] [address] CBCMP,CEA,FEST 04/06/2024 10:15 AM EST Office Visit [place] [facility] - [facility] 2084 [facility] [address] [place] [address] Georgi Butterfield MD [address] [place] [address] 6 MTH FU W/LABS, REV SCAN 04/13/2024 9:30 AM EST Office Visit Surgical Oncology - [facility] 2084 [facility] [address] [place] [address] Delvis Cheek MD 125 [facility] 660 [place] [address] 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
--- OUTSIDE RECORDS SUMMARY | 2024-01-13 21:16 | XMS_ITS | Encounter Summary ---
Author Organization Jose Alejandro Pantoja [facility] Address [address] [place] [address] Care Team Providers Care Data Entry Clerk Name Role Phone Felicitas Monaco MD Primary Care Provider [phone] Encounter Details Date Type Department Care Team (Late st Contact Info) Description 12/18/2022 Prep for Procedure Orthopaedics - [place] [id number] [phone] Bonny Mcarthur PA [facility] [address] [address] Social History Tobacco Use Types Packs/Day Years [...] Neurology - [facility] 2[address] [facility] [address] [place] [address] Martell Calderon MD 2144 [facility] [address] [place] [address] TREMORS/ MEDICARE, FOR LIFE 03/28/2024 8:30 AM EDT Office Visit Primary Care - [address] [address] Cheo Santoyo DO [address] [place] [address] AWV 04/06/2024 9:45 AM EST Lab [place] [facility] - [facility] 2084 [facility] [address] [place] [address] CBCMP,CEA,FEST 04/06/2024 10:15 AM EST Office Visit [place] [facility] - [facility] 2084 [facility] [address] [place] [address] Georgi Butterfield MD [address] [place] [address] 6 MTH FU W/LABS, REV SCAN 04/13/2024 9:30 AM EST Office Visit Surgical Oncology - [facility] 2084 [facility] [address] [place] [address] Delvis Cheek MD 125 [facility] [address] [place] [address] 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 documented as of this encounter Visit Diagnoses Not on filedocumented in this encounter Care Teams Data Entry Clerk Relationship Specialty Start Date End Date Felicitas Monaco MD PCP - General Family Medicine 06/18/22 07/05/23 documented as of this encounter
--- OUTSIDE RECORDS SUMMARY | 2024-01-13 21:16 | XMS_ITS | Encounter Summary ---
Author Organization Jose Alejandro Pantoja [facility] Address [address] [place] [address] Care Team Providers Care Electronic Musical Instrument Repairer Name Role Phone Felicitas Monaco MD Primary Care Provider [phone] Reason for Referral * Imaging (Routine) - Closed Specialty Diagnoses / Procedures Referred By Rachid jimenez Referred To Contact Radiology Diagnoses Knee deformity, acquired, right Procedures CT KNEE RIGHT WO CONTRAST Maurice Panchal MD [address] [address] Referral ID Status Reason Start Date Expiration Date Visits Re quested Visits Authorized [id number] Closed 11/27/2022 11/27/2023 1 1 Reason for Visit * Imaging (Routine) - Closed Specialty Diagnoses / Procedures Referred By Rachid jimenez Referred To Contact Radiology Diagnoses Knee deformity, acquired, right Procedures CT KNEE RIGHT WO CONTRAST Maurice Panchal MD [address] [address] Referral ID Status Reason Start Date Expiration Date Visits Re quested Visits Authorized [id number] Closed 11/27/2022 11/27/2023 1 1 Encounter Details Date Type Department Care Team (Latest Contact Info) Description 02/10/2023 12:55 PM EDT - 02/10/2023 11:59 PM EDT Hospital Encounter [facility] [address] [address] Maurice Panchal MD [address] [facility] 105 [place] [address] Knee deformity, acquired, right Discharge Disposition: Home [...] Office Visit Neurology - [address] [facility] [address] [place] [address] Martell Calderon MD 2144 [facility] [address] [place], [place] [address] TREMORS/ MEDICARE, FOR LIFE 03/28/2024 8:30 AM EDT Office Visit Primary Care - [facility] [address] [place] [address] Cheo Santoyo DO 1112 [place] [address] AWV 04/06/2024 9:45 AM EST Lab [place] [facility] - [facility] 2084 [facility] [place] [address] [place] [address] CBCMP,CEA,FEST 04/06/2024 10:15 AM EST Office Visit [place] [facility] - [facility] 2084 [facility] [place] [address] [place] [address] Georgi Butterfield MD 3510 [facility] 17N [facility] 225 [place], [place] [phone] 6 MTH FU W/LABS, REV SCAN 04/13/2024 9:30 AM EST Office Visit Surgical Oncology - [facility] 2084 [facility] [place] [address] [place] [address] Delvis Cheek MD 125 [facility] 660 [place] [address] 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 COMPARISON: 08/20/2022 TECHNIQUE: Axial CT images [...] as of this encounter Care Teams Electronic Musical Instrument Repairer Relationship Specialty Start Date End Date Felicitas Monaco MD PCP - General Family Medicine 06/18/22 07/05/23 documented as of this encounter
--- OUTSIDE RECORDS SUMMARY | 2024-01-13 21:16 | XMS_ITS | Encounter Summary ---
Author Organization Jose Alej[facility] Address [address] [place] [address] Care Team Providers Care Poultry Hatchery Supervisor Name Role Phone Felicitas Monaco MD Primary Care Provider [phone] Reason for Visit * Reason Onset Date Comments Call Patient 03/15/2023 Encounter Details Date Type Department Care Team (Late st Contact Info) Description 03/15/2023 Telephone Orthopaedics - Emy [address] [facility] 110, [address] [place] [address] Maurice Panchal MD 9995 [facility] 17 [facility] 105 [place] [address] Call Patient Social History Tobacco [...] Neurology - [facility] 2[address] [facility] [address] [place] [address] Martell Calderon MD 2144 [facility] [address] [place] [address] TREMORS/ MEDICARE, FOR LIFE 03/28/2024 8:30 AM EDT Office Visit Primary Care - [address] [address] Cheo Santoyo DO [address] [place] [address] AWV 04/06/2024 9:45 AM EST [facility] - [facility] 2084 [facility] [address] [place] [address] CBCMP,CEA,FEST 04/06/2024 10:15 AM EST Office Visit [facility] - [facility] 20[address] [facility] [address] [place] [address] Georgi Butterfield MD [address] [place] [address] 6 MTH FU W/LABS, REV SCAN 04/13/2024 9:30 AM EST Office Visit Surgical Oncology - [facility] 2084 [facility] [address] [place] [address] Delvis Cheek MD 125 [facility] 660 [place] [address] 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 documented as of this encounter Visit Diagnoses Not on filedocumented in this encounter Additional Health Concerns Assessment Noted Time A fall risk assessment has been complete d for the patient 02/26/2023 9:45 AM EDT documented as of this encounter Care Teams Poultry Hatchery Supervisor Relationship Specialty Start Date End Date Felicitas Monaco MD PCP - General Family Medicine 06/18/22 07/05/23 documented as of this encounter
--- OUTSIDE RECORDS SUMMARY | 2024-01-13 21:16 | XMS_ITS | Encounter Summary ---
Author Organization Jose Alejandro Raymundolinnea [facility] Address [address] [place] [address] Care Team Providers Care Generator Switchboard Operator Name Role Phone Felicitas Monaco MD Primary Care Provider [phone] Reason for Visit * Reason Onset Date Comments Medication Refill 02/12/2023 Encounter Details Date Type Department Care Team (Late st Contact Info) Description 02/12/2023 Refill Primary Care - [address] - [address] [facility] [address] [place] [address] Nadia Bealsey, PA-C [address] [facility] [address] [place] [address] Medication Refill Social History Tobacco Use Types [...] Visit Neurology - [facility] 2144 [facility] [address] [place] [address] Martell Calderon MD 2144 [facility] [address] [place], [place] [address] TREMORS/ MEDICARE, FOR LIFE 03/28/2024 8:30 AM EDT Office Visit Primary Care - [address] [phone] Cheo Santoyo, [address] [place] [phone] AWV 04/06/2024 9:45 AM EST Lab [facility] - [facility] 2084 [facility] [address] [place] [address] CBCMP,CEA,FEST 04/06/2024 10:15 AM EST Office Visit [facility] - [facility] 2084 [facility] [address] [place] [address] Georgi Butterfield MD [address] [place] [address] 6 MTH FU W/LABS, REV SCAN 04/13/2024 9:30 AM EST Office Visit Surgical Oncology - [facility] 2084 [facility] [address] [place] [address] Delvis Cheek MD 125 [facility] 660 [place] [address] 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 documented as of this encounter Visit Diagnoses Not on filedocumented in this encounter Additional Health Concerns Assessment Noted Time A fall risk assessment has been complete d for the patient 01/19/2023 2:33 PM EDT documented as of this encounter Care Teams Generator Switchboard Operator Relationship Specialty Start Date End Date Felicitas Monaco MD PCP - General Family Medicine 06/18/22 07/05/23 documented as of this encounter
--- OUTSIDE RECORDS SUMMARY | 2024-01-13 21:16 | XMS_ITS | Encounter Summary ---
Author Organization Jose Alejandro Pantoja [facility] Address [address] [place] [address] Care Team Providers Care Senior Data Analyst Name Role Phone Felicitas Monaco MD Primary Care Provider [phone] Reason for Visit * Reason Onset Date Comments Other 03/01/2023 Encounter Details Date Type Department Care Team (Late st Contact Info) Description 03/01/2023 Telephone Orthopaedics - [address] - [facility] [address] 220 [place] [address] Maurice Panchal MD [address] 105 [place] [address] Other Social History Tobacco Use Types Packs/Day [...] Visit Neurology - [facility] 2144 [facility] [address] [place] [address] Martell Calderon MD 2144 [facility] [address] [place] [address] TREMORS/ MEDICARE, FOR LIFE 03/28/2024 8:30 AM EDT Office Visit Primary Care - [address] [address] Cheo Santoyo DO [address] [place] [address] AWV 04/06/2024 9:45 AM EST Lab [facility] - [facility] 2084 [facility] [address] [place] [address] CBCMP,CEA,FEST 04/06/2024 10:15 AM EST Office Visit [facility] - [facility] 2084 [facility] [address] [place] [address] Georgi Butterfield MD [address] [place] [address] 6 MTH FU W/LABS, REV SCAN 04/13/2024 9:30 AM EST Office Visit Surgical Oncology - [facility] 2084 [facility] [address] [place] [address] Delvis Cheek MD 125 [facility] 660 [place] [address] 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 documented as of this encounter Visit Diagnoses Not on filedocumented in this encounter Additional Health Concerns Assessment Noted Time A fall risk assessment has been complete d for the patient 02/26/2023 9:45 AM EDT documented as of this encounter Care Teams Senior Data Analyst Relationship Specialty Start Date End Date Felicitas Monaco MD PCP - General Family Medicine 06/18/22 07/05/23 documented as of this encounter
--- OUTSIDE RECORDS SUMMARY | 2024-01-13 21:16 | XMS_ITS | Encounter Summary ---
Author Organization Jose Alejandro Raymundolinnea [facility] Address [address] [place] [address] Care Team Providers Care Dry Charge Process Attendant Name Role Phone Felicitas Monaco MD Primary Care Provider [phone] Encounter Details Date Type Department Care Team [...] Dr. [address] [place] [address] Martell Calderon MD [address] [facility] [address] [place] [address] TREMORS/ MEDICARE, FOR LIFE 03/28/2024 8:30 AM EDT Office Visit Primary Care - [address] [address] Cheo Santoyo DO [facility]2 [place] [address] AWV 04/06/2024 9:45 AM EST Lab [facility] - [facility] [place] 2084 [facility] [address] [place] [address] CBCMP,CEA,FEST 04/06/2024 10:15 AM EST Office Visit [facility] - [facility] [place] 2084 [facility] [address] [place] [address] Georgi Butterfield MD [address] [place], [place] [address] 6 MTH FU W/LABS, REV SCAN 04/13/2024 9:30 AM EST Office Visit Surgical Oncology - [facility] [place] 2084 [facility] [address] [place] [address] Delvis Cheek MD 125 [facility] 660 [place] [address] 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 documented as of this encounter Visit Diagnoses Not on filedocumented in this encounter Care Teams Dry Charge Process Attendant Relationship Specialty Start Date End Date Felicitas Monaco MD PCP - General Family Medicine 06/18/22 07/05/23 documented as of this encounter
--- OUTSIDE RECORDS SUMMARY | 2024-01-13 21:16 | XMS_ITS | Encounter Summary ---
Author Organization Jose Ale[facility] Address [address] [place] [address] Care Team Providers Care Cash On Delivery Clerk Name Role Phone Cheo Santoyo Primary Care Provider [phone] Encounter Details Date Type Department Care Team (Late st Contact Info) Description 12/27/2022 [facility] [place] Maurice Panchal MD [address] [place] [address] Social History Tobacco Use Types Packs/Day Years [...] Dr. [address] [place] [address] Martell Calderon MD 2144 [facility] [address] [place] [address] TREMORS/ MEDICARE, FOR LIFE 03/28/2024 8:30 AM EDT Office Visit Primary Care - [address] [phone] [place] [address] [place] [phone] AWV 04/06/2024 9:45 AM EST Lab [facility] - [facility] 2084 [facility] [address] [place] [address] CBCMP,CEA,FEST 04/06/2024 10:15 AM EST Office Visit [facility] - [facility] 2084 [facility] [address] [place] [address] Georgi Butterfield MD [address] [place], [place] [address] 6 MTH FU W/LABS, REV SCAN 04/13/2024 9:30 AM EST Office Visit Surgical Oncology - [facility] 2084 [facility] [address] [place] [address] Delvis Cheek MD 125 [facility] 660 [place] [address] 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 [address] [place] [address] Karly Bautista PA [address] [place] [address] annual visit from date of surgery May/Jul 2024 for bilateral TKA and right LIZZ with Karly. documented as of this encounter Visit Diagnoses Not on filedocumented in this encounter Care Teams Cash On Delivery Clerk Relationship Specialty Start Date End Date Cheo Santoyo DO [address] [place] [phone] PCP - General Family Medicine 07/06/23 documented as of this encounter
--- OUTSIDE RECORDS SUMMARY | 2024-01-13 21:16 | XMS_ITS | Encounter Summary ---
Author Organization Jose Alejandro [facility]ja [facility] Address [address] [place] [address] Care Team Providers Care Residential Instructor Name Role Phone Felicitas Monaco MD Primary Care Provider [phone] Encounter Details Date Type Department Care Team [...] Neurology - [facility] [address] [facility] [address] [place] [address] Martell Calderon MD 2144 [facility] [address] [place] [address] TREMORS/ MEDICARE, FOR LIFE 03/28/2024 8:30 AM EDT Office Visit Primary Care - [address] [address] [place] [address] [place] [phone] AWV 04/06/2024 9:45 AM EST Lab [facility] - [facility] 2084 [facility] [address] [place] [address] CBCMP,CEA,FEST 04/06/2024 10:15 AM EST Office Visit [facility] - [facility] 2084 [facility] [address] [place] [address] Georgi Butterfield MD 3510 [facility] [address] [place], [place] [address] 6 MTH FU W/LABS, REV SCAN 04/13/2024 9:30 AM EST Office Visit Surgical Oncology - [facility] 2084 [facility] [address] [place] [address] Delvis Cheek MD 125 [facility] [address] [place] [address] 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 documented as of this encounter Visit Diagnoses Not on filedocumented in this encounter Additional Health Concerns Assessment Noted Time A fall risk assessment has been complete d for the patient 02/26/2023 9:45 AM EDT documented as of this encounter Care Teams Residential Instructor Relationship Specialty Start Date End Date Felicitas Monaco MD PCP - General Family Medicine 06/18/22 07/05/23 documented as of this encounter
--- OUTSIDE RECORDS SUMMARY | 2024-01-13 21:16 | XMS_ITS | Encounter Summary ---
Author Organization Jose Alejandro Raymundolinnea [facility] Address [address] [place] [address] Care Team Providers Care Senior Policy Advisor Name Role Phone Felicitas Monaco MD Primary Care Provider [phone] Reason for Visit * Reason Onset Date Comments Medication Refill 02/12/2023 Encounter Details Date Type Department Care Team (Late st Contact Info) Description 02/12/2023 Refill Primary Care - [address] - [address] [place] [place] [address] Felicitas Monaco MD [address] [place] [phone] Medication Refill Social History Tobacco Use [...] Visit Neurology - [facility] 2144 [facility] [address] [place] [address] Martell Calderon MD 2144 [facility] [address] [place] [address] TREMORS/ MEDICARE, FOR LIFE 03/28/2024 8:30 AM EDT Office Visit Primary Care - [address] [address] Cheo Santoyo DO [address] [place] [phone] AWV 04/06/2024 9:45 AM EST Lab [facility] - [facility] 2084 [facility] [address] [place] [address] CBCMP,CEA,FEST 04/06/2024 10:15 AM EST Office Visit [facility] - [facility] 2084 [facility] [address] [place] [address] Georgi Butterfield MD [address] [place] [address] 6 MTH FU W/LABS, REV SCAN 04/13/2024 9:30 AM EST Office Visit Surgical Oncology - [facility] 2084 [facility] [address] [place] [address] Delvis Cheek MD 125 [facility] 660 [place] [address] 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 documented as of this encounter Visit Diagnoses Not on filedocumented in this encounter Additional Health Concerns Assessment Noted Time A fall risk assessment has been complete d for the patient 01/19/2023 2:33 PM EDT documented as of this encounter Care Teams Senior Policy Advisor Relationship Specialty Start Date End Date Felicitas Monaco MD PCP - General Family Medicine 06/18/22 07/05/23 documented as of this encounter
--- OUTSIDE RECORDS SUMMARY | 2024-01-13 21:16 | XMS_ITS | Encounter Summary ---
Author Organization Jose Alejandro Raymundolinnea [facility] Address [address] [place] [address] Care Team Providers Care Motors And Generators Inspector Name Role Phone Felicitas Monaco MD Primary Care Provider [phone] Encounter Details Date Type Department Care Team (Late st Contact Info) Description 11/30/2022 Abstract [facility] - [facility]. 8950 [facility] [address] [place] [address] Georgi Butterfield MD [address] [place] [address] Social History Tobacco Use Types [...] Neurology - [facility] 2144 [facility] [address] [place] [address] Martell Calderon MD 2144 [facility] [address] [place] [address] TREMORS/ MEDICARE, FOR LIFE 03/28/2024 8:30 AM EDT Office Visit Primary Care - [address] [phone] Cheo Santoyo DO [address] [place] [phone] AWV 04/06/2024 9:45 AM EST Lab [facility] - [facility] 2084 [facility] [address] [place] [address] CBCMP,CEA,FEST 04/06/2024 10:15 AM EST Office Visit [facility] - [facility] 2084 [facility] [address] [place] [address] Georgi Butterfield MD [address] [place] [address] 6 MTH FU W/LABS, REV SCAN 04/13/2024 9:30 AM EST Office Visit Surgical Oncology - [facility] 2084 [facility] [address] [place] [address] Delvis Cheek MD 125 [facility] [address] [place] [address] 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 documented as of this encounter Visit Diagnoses Not on filedocumented in this encounter Care Teams Motors And Generators Inspector Relationship Specialty Start Date End Date Felicitas Monaco MD PCP - General Family Medicine 06/18/22 07/05/23 documented as of this encounter
--- OUTSIDE RECORDS SUMMARY | 2024-01-13 21:16 | XMS_ITS | Encounter Summary ---
Author Organization Jose Alejandro [facility] Address [address] [place] [address] Care Team Providers Care Choir Singer Name Role Phone Felicitas Monaco MD Primary Care Provider [phone] Reason for Referral * Eval and Treat (Routine) - Closed Specialty Diagnoses / Procedures Referred By Rachid jimenez Referred To Contact Physical Therapy Diagnoses Presence of left artificial knee joint Maurice Panchal MD [address] [address] PT/OT, RS-ATI PT [place] 5401 [facility] [address] Referral ID Status Reason Start Date Expiration Date V isits Requested Visits Authorized [id number] Closed Specialty Services Required 01/06/2023 07/05/2023 1 1 Scheduling Instructions RSF-ATI Physical Therapy 5401 [facility] [id number] Question Answer Reason For External Referral? Patient Preference Comments Physical Therapy / Total Joint Protocol 3 x's weekly for 4-6 weeks Encounter Details Date Type Department Care Team (Late st Contact Info) Description 01/06/2023 Orders Only Orthopaedics - [place] [address] [phone] Maurice Panchal MD [address] [address] Presence of left artificial knee joint (Primary [...] Visit Neurology - [facility] 2145 [facility] [address] [place] [address] Martell Calderon MD [address] [facility] [address] [place] [address] TREMORS/ MEDICARE, FOR LIFE 03/28/2024 8:30 AM EDT Office Visit Primary Care - [address] [phone] Cheo Santoyo DO [address] [place] [address] AWV 04/06/2024 9:45 AM EST Lab [facility] - [facility] 2084 [facility] [address] [place] [address] CBCMP,CEA,FEST 04/06/2024 10:15 AM EST Office Visit [facility] - [facility] 2084 [facility] [address] [place] [address] Georgi Butterfield MD [address] [place] [address] 6 MTH FU W/LABS, REV SCAN 04/13/2024 9:30 AM EST Office Visit Surgical Oncology - [facility] 2084 [facility] [address] [place] [address] Delvis Cheek MD 125 [facility] 660 [place] [address] 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 Scheduled Referrals Name Type Priority Associated Diagnoses Orde r Schedule RSF - ATI Physical Therapy - [facility] Outpatient Referral Routine Presence of left artificial knee joint Ordered: 01/06/2023 documented as of this encounter Visit Diagnoses Diagnosis Presence of left artificial knee joint- Primary Knee joint replacement by other means documented in this encounter Care Teams Choir Singer Relationship Specialty Start Date End Date Felicitas Monaco MD PCP - General Family Medicine 06/18/22 07/05/23 documented as of this encounter
--- OUTSIDE RECORDS SUMMARY | 2024-01-13 21:16 | XMS_ITS | Encounter Summary ---
Author Organization Jose Alejandro [facility] Address [address] [place] [address] Care Team Providers Care Vessel Slagman Name Role Phone Felicitas Monaco MD Primary Care Provider [phone] Reason for Visit * Reason Onset Date Comments Other 01/27/2023 Encounter Details Date Type Department Care Team (Late st Contact Info) Description 01/27/2023 Telephone Primary Care - [address] [place] [address] Felicitas Monaco MD [address] [place] [address] Other Social History Tobacco Use Types [...] 9:00 AM EDT Office Visit Neurology - [facility] 2[address] [facility] [address] [place] [address] Martell Calderon MD 2144 [facility] [address] [place] [address] TREMORS/ MEDICARE, FOR LIFE 03/28/2024 8:30 AM EDT Office Visit Primary Care - [address] [address] [place] [address] [place] [phone] AWV 04/06/2024 9:45 AM EST Lab [facility] - [facility] 2084 [facility] [address] [place] [address] CBCMP,CEA,FEST 04/06/2024 10:15 AM EST Office Visit [facility] - [facility] 2084 [facility] [address] [place] [address] Georgi Butterfield MD [address] [place] [address] 6 MTH FU W/LABS, REV SCAN 04/13/2024 9:30 AM EST Office Visit Surgical Oncology - [facility] 2084 [facility] [address] [place] [address] Delvis Cheek MD 125 [facility] 660 [place] [address] 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 documented as of this encounter Visit Diagnoses Not on filedocumented in this encounter Additional Health Concerns Assessment Noted Time A fall risk assessment has been complete d for the patient 01/19/2023 2:33 PM EDT documented as of this encounter Care Teams Vessel Slagman Relationship Specialty Start Date End Date Felicitas Monaco MD PCP - General Family Medicine 06/18/22 07/05/23 documented as of this encounter
--- OUTSIDE RECORDS SUMMARY | 2024-01-13 21:16 | XMS_ITS | Encounter Summary ---
Author Organization Jose Alejandro Raymundolinnea [facility] Address [address] [place] [address] Care Team Providers Care Commercial Retoucher Name Role Phone Felicitas Monaco MD Primary Care Provider [phone] Reason for Visit * Reason Onset Date Comments Medication Refill 02/12/2023 Encounter Details Date Type Department Care Team (Late st Contact Info) Description 02/12/2023 Refill Primary Care - [address] [place] [address] Felicitas Monaco MD [address] [place] [address] Medication Refill Social History Tobacco Use [...] Neurology - [facility] 2144 [facility] [address] [place] [address] Martell Calderon MD 2144 [facility] [address] [place] [address] TREMORS/ MEDICARE, FOR LIFE 03/28/2024 8:30 AM EDT Office Visit Primary Care - [address] [address] Cheo Santoyo DO [address] [place] [phone] AWV 04/06/2024 9:45 AM EST Lab [facility] - [facility] [address] [facility] [address] [place] [address] CBCMP,CEA,FEST 04/06/2024 10:15 AM EST Office Visit [facility] - [facility] [address] [facility] [address] [place] [address] Georgi Butterfield MD [address] [place] [address] 6 MTH FU W/LABS, REV SCAN 04/13/2024 9:30 AM EST Office Visit Surgical Oncology - [facility] [address] 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 100 [place] [address] Karly Bautista, PA 180 [facility] 301 [place] [phone] annual visit from date of surgery May/Jul 2024 for bilateral TKA and right LIZZ with Karly. documented as of this encounter Visit Diagnoses Not on filedocumented in this encounter Additional Health Concerns Assessment Noted Time A fall risk assessment has been complete d for the patient 01/19/2023 2:33 PM EDT documented as of this encounter Care Teams Commercial Retoucher Relationship Specialty Start Date End Date Felicitas Monaco MD PCP - General Family Medicine 06/18/22 07/05/23 documented as of this encounter
--- OUTSIDE RECORDS SUMMARY | 2024-01-13 21:16 | XMS_ITS | Encounter Summary ---
Author Organization Jose Alejandro Ray[facility]olinnea [facility] Address [address] [place] [address] Care Team Providers Care Sap Security Architect Name Role Phone Felicitas Monaco MD Primary Care Provider [phone] Reason for Visit * Auth/Cert (Routine) Specialty Diagnoses / Procedures Referred By Rachid jimenez Referred To Contact Diagnoses Primary osteoarthritis of right knee Primary osteoarthritis of right knee [M17.11] Procedures [place] ARTHRP KNE CONDYLE&PLATU MEDIAL&LAT COMPARTMENTS RIGHT TOTAL KNEE ARTHROPLASTY, ROBOTIC Maurice Panchal MD [facility] [address] [address] Referral ID Status Reason Start Date Expiration Date Visits Re quested Visits Authorized [id number] 1 1 Encounter Details Date Type Department Care Team (Late st Contact Info) Description 03/17/2023 9:16 AM EDT Anesthesia Event RMP SURGERY 3500 [facility] 17 [place], [place] [phone] René Quintero MD [address] [address] Grant Lopez AA [address] [address] Anesthesia Record Procedure Summary Procedure Name Responsible Anesthesiologist Anesthesia Start Time Anesthesia Stop Time RIGHT TOTAL KNEE ARTHROPLASTY, ROBOTIC (Right: Knee) René Quintero MD 03/17/23 0916 03/17/23 1039 Events Date Time Event Comment 03/17/2023 0916 An Start Location: {AN S tart Location:[id number]} 0916 An Start Data 0916 Case on Time Start? First ca se of the day? No On Time Start? N/A If No, Delay due to: {MH AN CASE ON TIME:[id number]} 0922 Block Placed 0924 Anesthesia Ready 30 [...] Dr. [address] [place] [address] Martell Calderon MD [address] [facility] [address] [place] [address] TREMORS/ MEDICARE, FOR LIFE 03/28/2024 8:30 AM EDT Office Visit Primary Care - [address] [address] Cheo Santoyo DO [address] [place] [address] AWV 04/06/2024 9:45 AM EST Lab [facility] - [facility] 2084 [facility] [address] [place] [address] CBCMP,CEA,FEST 04/06/2024 10:15 AM EST Office Visit [facility] - [facility] 2084 [facility] [address] [place] [address] Georgi Butterfield MD [address] [place], [place] [address] 6 MTH FU W/LABS, REV SCAN 04/13/2024 9:30 AM EST Office Visit Surgical Oncology - [facility] 2084 [facility] [address] [place] [address] Delvis Cheek MD 125 [facility] 660 [place] [address] 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 06/19/2024 10:30 AM EST Office Visit Orthopaedics- Les Valencia 615 [facility] [address] 100 [place] [address] Karly Bautista PA [address] [place] [address] annual visit from date of [...] Reason for block: primary anesthetic Staffing Performed: resident/WAREHOUSE MAN Anesthesiologist: René Quintero MD Resident/WAREHOUSE MAN: Grant Lopez AA Performed by: Grant Lopez [...] 100 mL IVPB (mini-bag) 2,000 mg, IntraVENous, MARKER MACHINE TO O.R., 1 dose, On Wed03/17/23 at [...] at 400 mL/hr, Administer over 15 Minutes, MARKER MACHINE TO O.R., On Wed03/17/23 at 0800, For [...] as of this encounter Care Teams Sap Security Architect Relationship Specialty Start Date End Date Felicitas Monaco MD PCP - General Family Medicine 06/18/22 07/05/23 documented as of this encounter
--- OUTSIDE RECORDS SUMMARY | 2024-01-13 21:16 | XMS_ITS | Encounter Summary ---
Author Organization Jose Alejandro Raymundolinnea [facility] Address [address] [place] [address] Care Team Providers Care Contact Finger Assembler Name Role Phone Felicitas Monaco MD Primary Care Provider [phone] Reason for Visit * Auth/Cert (Routine) Specialty Diagnoses / Procedures Referred By Rachid jimenez Referred To Contact Diagnoses Primary osteoarthritis of left knee Primary osteoarthritis of left knee [M17.12] Procedures [place] ARTHRP KNE CONDYLE&PLATU MEDIAL&LAT COMPARTMENTS LEFT TOTAL KNEE ARTHROPLASTY, ROBOTIC Maurice Panchal MD [facility] [address] [address] Referral ID Status Reason Start Date Expiration Date Visits Re quested Visits Authorized [id number] 1 1 Encounter Details Date Type Department Care Team (Late st Contact Info) Description 12/21/2022 7:25 AM EDT Anesthesia Event RMP SURGERY 3500 [facility] 17 [place] [address] Eren Carlos MD [address] [address] Ritchie Hess MD [address] [id number] Anesthesia Record Procedure Summary Procedure Name Responsible Anesthesiologist Anesthesia Start Time Anesthesia Stop Time LEFT TOTAL KNEE ARTHROPLASTY, ROBOTIC (Left: Knee) Eren Carlos MD 12/21/22 0725 12/21/22 0846 Events Date Time Event Comment 12/21/2022 0715 0725 An Start Location: {AN S tart Location:[id number]} 0725 An Start Data 0730 Block Placed [...] Visit Neurology - [facility] 214 [facility] [address] [place] [address] Martell Calderon MD 2[address] [facility] [address] [place] [address] TREMORS/ MEDICARE, FOR LIFE 03/28/2024 8:30 AM EDT Office Visit Primary Care - [address] [address] Cheo Santoyo DO [address] [place] [phone] AWV 04/06/2024 9:45 AM EST Lab [facility] - [facility] 2084 [facility] [address] [place] [address] CBCMP,CEA,FEST 04/06/2024 10:15 AM EST Office [facility] - [facility] 2084 [facility] [address] [place] [address] Georgi Butterfield MD [address] [place], [place] [address] 6 MTH FU W/LABS, REV SCAN 04/13/2024 9:30 AM EST Office Visit Surgical Oncology - [facility] 2084 [facility] [address] [place] [address] Delvis Cheek MD [address] 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 [address] 100 [place] [address] Karly Bautista W, PA [address] [place] [address] annual visit from date of surgery May/Jul [...] 100 mL IVPB (mini-bag) 2,000 mg, IntraVENous, SOFTWARE BUSINESS ANALYST TO O.R., 1 dose, On Wed12/21/22 [...] at 400 mL/hr, Administer over 15 Minutes, SOFTWARE BUSINESS ANALYST TO O.R., On Wed12/21/22 at 0630, For 1 dose, One time dose for unilateral Total Hip or Knee Arthroplasty. To be administered by anesthesia staff after induction of anesthesia following antibiotic but prior to incision, Pre-op (day of surgery) New Bag 12/21/2022 7:33 AM EDT 2,000 m g documented in this encounter Care Teams Contact Finger Assembler Relationship Specialty Start Date End Date Felicitas Monaco MD PCP - General Family Medicine 06/18/22 07/05/23 documented as of this encounter
--- OUTSIDE RECORDS SUMMARY | 2024-01-13 21:17 | XMS_ITS | Encounter Summary ---
Author Organization Jose Alejandro Kit [facility] Address [address] [place] [address] Care Team Providers Care License Examiner Name Role Phone Felicitas Monaco MD Primary Care Provider [phone] Reason for Visit * Reason Onset Date Comments Call Patient 09/29/2022 Encounter Details Date Type Department Care Team (Late Contact Info) Description 09/29/2022 Telephone Orthopaedics - [address] [place] [address], [address] [place] [address] Georgi Andersen PA [address] [facility] 200 [place] [address] Call Patient Social History Tobacco [...] Dr. [address] [place] [address] Martell Calderon MD 214 [facility] [address] [place] [address] TREMORS/ MEDICARE, FOR LIFE 03/28/2024 8:30 AM EDT Office Visit Primary Care - [address] [phone] Cheo Santoyo, DO [address] [place] [phone] AWV 04/06/2024 9:45 AM EST Lab [facility] [facility] - [facility] 2084 [facility] [address] [place] [address] CBCMP,CEA,FEST 04/06/2024 10:15 AM EST Office Visit [place] [facility] - [facility] 2084 [facility] [address] [place] [address] Georgi Butterfield MD [address] [place], [place] [address] 6 MTH FU W/LABS, REV SCAN 04/13/2024 9:30 AM EST Office Visit Surgical Oncology - [facility] 2084 [facility] [address] [place] [address] Delvis Cheek MD 125 [facility] 660 [place] [address] 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 documented as of this encounter Visit Diagnoses Not on filedocumented in this encounter Care Teams License Examiner Relationship Specialty Start Date End Date Felicitas Monaco MD PCP - General Family Medicine 06/18/22 07/05/23 documented as of this encounter
--- OUTSIDE RECORDS SUMMARY | 2024-01-13 21:17 | XMS_ITS | Encounter Summary ---
Author Organization Jose Alejandro Kit [facility] Address [address] [place] [address] Care Team Providers Care Children Librarian Name Role Phone Felicitas Monaco MD Primary Care Provider [phone] Encounter Details Date Type Department Care Team (Latest Contact Info) Description 07/29/2022 9:20 AM EST Ancillary Procedure Express [facility] - [address] [place] [address] Spinal stenosis of lumbar region [...] Dr. [address] [place] [address] Martell Calderon MD 2145 [facility] [address] [place] [address] TREMORS/ MEDICARE, FOR LIFE 03/28/2024 8:30 AM EDT Office Visit Primary Care - [address] [phone] Cheo Santoyo, DO [address] [place] [phone] AWV 04/06/2024 9:45 AM EST Lab [place] [facility] - [facility] [address] [facility] [address] [place] [address] CBCMP,CEA,FEST 04/06/2024 10:15 AM EST Office Visit [place] [facility] - [facility] [address] [facility] [address] [place] [address] Georgi Butterfield MD [address] [place], [place] [address] 6 MTH FU W/LABS, REV SCAN 04/13/2024 9:30 AM EST Office Visit Surgical Oncology - [facility] [address] 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 06/19/2024 10:30 AM EST Office Visit Orthopaedics- Les Valencia [address] [facility] [address] 100 [place] [address] Karly Bautista, BURT [address] [place] [address] annual visit from date of [...] movement between flexion and extension Willa Sandhu CINDER CREW WORKER - INFORMATION TECHNOLOGY ASSISTANT IMG DIAGNOSTI C IMAGING ORDERABLES documented in this encounter Visit Diagnoses Diagnosis Spinal stenosis of lumbar region with neurogenic claudication Spinal stenosis, lumbar region, with neurogenic claudication Sacroiliitis (HCC) Sacroiliitis, not elsewhere classified documented in this encounter Care Teams Children Librarian Relationship Specialty Start Date End Date Felicitas Monaco MD PCP - General Family Medicine 06/18/22 07/05/23 documented as of this encounter
--- OUTSIDE RECORDS SUMMARY | 2024-01-13 21:17 | XMS_ITS | Encounter Summary ---
Author Organization Jose Alejandro Kit [facility] Address [address] [place] [address] Care Team Providers Care Auto Body Repair Technician Name Role Phone Felicitas Monaco MD Primary Care Provider [phone] Reason for Visit * Reason Comments Follow-up Right knee supartz 3 Encounter Details Date Type Department Care Team (Late st Contact Info) Description 10/27/2022 9:00 AM EDT Office Visit Orthopaedics - [address] [place] [address] Dave Lynne Jr., MD [address] [place] [address] Primary osteoarthritis of right knee (Primary Dx) [...] Neurology - [facility] 2144 [facility] [address] [place] [address] Martell Calderon MD 214 [facility] [address] [place] [address] TREMORS/ MEDICARE, FOR LIFE 03/28/2024 8:30 AM EDT Office Visit Primary Care - [address] [address] Cheo Santoyo DO 1112 [place] [address] AWV 04/06/2024 9:45 AM EST [facility] - [facility] 2084 [facility] [address] [place] [address] CBCMP,CEA,FEST 04/06/2024 10:15 AM EST Office Visit [facility] - [facility] 2084 [facility] [address] [place] [address] Georgi Butterfield MD [address] [place] [address] 6 MTH FU W/LABS, REV SCAN 04/13/2024 9:30 AM EST Office Visit Surgical Oncology - [facility] 2084 [facility] [address] [place] [address] Delvis Cheek MD 125 [facility] [address] [place] [address] 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
--- OUTSIDE RECORDS SUMMARY | 2024-01-13 21:17 | XMS_ITS | Encounter Summary ---
Author Organization [facility] [place] [facility] Address [address] [place] [address] Care Team Providers Care Manager Data Warehouse Name Role Phone Felicitas Monaco MD Primary Care Provider [phone] Reason for Visit * Reason Onset Date Comments Medication Refill 08/13/2022 Encounter Details Date Type Department Care Team (Late Contact Info) Description 08/13/2022 Refill Primary Care - [address] [place] [address] Felicitas Monaco MD 203 [place] [address] Medication Refill Social History Tobacco [...] Dr. [address] [place] [address] Martell Calderon MD 2144 [facility] [address] [place] [address] TREMORS/ MEDICARE, FOR LIFE 03/28/2024 8:30 AM EDT Office Visit Primary Care - [address] [phone] Cheo Santoyo, DO [address] [place] [address] AWV 04/06/2024 9:45 AM EST Lab [facility] - [facility] 2084 [facility] [address] [place] [address] CBCMP,CEA,FEST 04/06/2024 10:15 AM EST Office Visit [facility] - [facility] 2084 [facility] [address] [place] [address] Georgi Butterfield MD [address] [place], [place] [phone] 6 MTH FU W/LABS, REV SCAN 04/13/2024 9:30 AM EST Office Visit Surgical Oncology - [facility] 2084 [facility] [address] [place] [address] Delvis Cheek MD 125 [facility] 660 [place] [address] 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 [address] [address] [place] [address] Karly Bautista, BURT [address] [place] [address] annual visit from date of surgery May/Jul 2024 for bilateral TKA and right LIZZ with Karly. documented as of this encounter Visit Diagnoses Not on filedocumented in this encounter Care Teams Manager Data Warehouse Relationship Specialty Start Date End Date Felicitas Monaco MD PCP - General Family Medicine 06/18/22 07/05/23 documented as of this encounter
--- OUTSIDE RECORDS SUMMARY | 2024-01-13 21:17 | XMS_ITS | Encounter Summary ---
Author Organization Jose Alejandro Kit Rushingmarysol [facility] Address [address] [place] [address] Care Team Providers Care Odd Job Worker Name Role Phone Felicitas Monaco MD Primary Care Provider [phone] Reason for Visit * Reason Comments Injections Right knee Supartz # 1 of 3, BUY & BILL Encounter Details Date Type Department Care Team (Late st Contact Info) Description 10/13/2022 8:45 AM EDT Office Visit Orthopaedics - [address] [place] [address] Georgi Andersen PA [address] [place] [address] Primary osteoarthritis of right knee (Primary Dx) [...] Visit Neurology - [facility] [address] [facility] [facility] [address] [place] [address] Martell Calderon MD 2144 [facility] [address] [place] [address] TREMORS/ MEDICARE, FOR LIFE 03/28/2024 8:30 AM EDT Office Visit Primary Care - [address] [address] [place] [address] [place] [phone] AWV 04/06/2024 9:45 AM EST Lab [facility] 2084 [facility] [address] [place] [address] CBCMP,CEA,FEST 04/06/2024 10:15 AM EST Office Visit [place] [facility] 2084 [facility] [address] [place] [address] Georgi Butterfield MD [address] [place] [address] 6 MTH FU W/LABS, REV SCAN 04/13/2024 9:30 AM EST Office Visit Surgical Oncology - [facility] 2084 [facility] [address] [place] [address] Delvis Cheek MD 125 [facility] [address] [place] [address] 1 YEAR F/U ADENOCARCINOMA OF THE CECUM 06/19/2024 10:30 AM EST Office Visit Orthopaedics- Les Valencia 615 [facility] [address] [place] [address] Karly Bautista PA 180 [facility] 301 [place] [address] annual visit from date of [...] Right documented in this encounter Care Teams Odd Job Worker Relationship Specialty Start Date End Date Felicitas Monaco MD PCP - General Family Medicine 06/18/22 07/05/23 documented as of this encounter
--- OUTSIDE RECORDS SUMMARY | 2024-01-13 21:17 | XMS_ITS | Encounter Summary ---
Author Organization Jose Alejandro Kit [facility] Address [address] [place] [address] Care Team Providers Care Yield Analyst Name Role Phone Felicitas Monaco MD Primary Care Provider [phone] Reason for Visit * Reason Onset Date Comments Other 09/29/2022 Encounter Details Date Type Department Care Team (Late Contact Info) Description 09/29/2022 Telephone Neurosurgery & Spine - Maryan [address] - [address] [place] [address] Sharonda Rodriguez PA [address] [facility] [address] [place] [address] Other Social History Tobacco Use [...] Dr. [address] [place] [address] Martell Calderon MD 2145 [facility] [address] [place] [address] TREMORS/ MEDICARE, FOR LIFE 03/28/2024 8:30 AM EDT Office Visit Primary Care - [facility] [address] [place] [phone] Cheo Santoyo, DO 1112 [place] [address] AWV 04/06/2024 9:45 AM EST Lab [place] [facility] - [facility] 2084 [facility] [address] [place] [address] CBCMP,CEA,FEST 04/06/2024 10:15 AM EST Office Visit [place] [facility] - [facility] 2084 [facility] [address] [place] [address] Georgi Butterfield MD [address] [place], [place] [address] 6 MTH FU W/LABS, REV SCAN 04/13/2024 9:30 AM EST Office Visit Surgical Oncology - [facility] 2084 [facility] [address] [place] [address] Delvis Cheek MD 125 [facility] 660 [place] [address] 1 YEAR F/U ADENOCARCINOMA OF THE CECUM 06/19/2024 10:30 AM EST Office Visit Orthopaedics- Les Valencia 615 [facility] [facility] [address] [place] [address] Karly Bautista, BURT [address] [place] [address] annual visit from date of surgery May/Jul 2024 for bilateral TKA and right LIZZ with Karly. documented as of this encounter Visit Diagnoses Not on filedocumented in this encounter Care Teams Yield Analyst Relationship Specialty Start Date End Date Felicitas Monaco MD PCP - General Family Medicine 06/18/22 07/05/23 documented as of this encounter
--- OUTSIDE RECORDS SUMMARY | 2024-01-13 21:17 | XMS_ITS | Encounter Summary ---
Author Organization Jose Alejandro Kit [facility] Address [address] [place] [address] Care Team Providers Care Industry Operations Investigator Name Role Phone Felicitas Monaco MD Primary Care Provider [phone] Reason for Visit * Reason Onset Date Comments Surgery Scheduling 11/26/2022 Encounter Details Date Type Department Care Team (Late Contact Info) Description 11/26/2022 Telephone Orthopaedics - [address] [place] [phone] Maurice Panchal MD [address] [place] [address] Surgery Scheduling Social History Tobacco [...] Neurology - [address]an [address] [facility] [address] [place] [address] Martell Calderon MD 2145 [facility] [address] [place] [address] TREMORS/ MEDICARE, FOR LIFE 03/28/2024 8:30 AM EDT Office Visit Primary Care - [facility] [address] [place] [phone] Cheo Santoyo, DO 1112 [place] [address] AWV 04/06/2024 9:45 AM EST Lab [facility] - [facility] 2084 [facility] [address] [place] [address] CBCMP,CEA,FEST 04/06/2024 10:15 AM EST Office Visit [place] [facility] - [facility] 2084 [facility] [address] [place] [address] Georgi Butterfield MD [address] [place], [place] [address] 6 MTH FU W/LABS, REV SCAN 04/13/2024 9:30 AM EST Office Visit Surgical Oncology - [facility] 2084 [facility] [address] [place] [address] Delvis Cheek MD 125 [facility] 660 [place] [address] 1 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 documented as of this encounter Visit Diagnoses Not on filedocumented in this encounter Care Teams Industry Operations Investigator Relationship Specialty Start Date End Date Felicitas Monaco MD PCP - General Family Medicine 06/18/22 07/05/23 documented as of this encounter
--- OUTSIDE RECORDS SUMMARY | 2024-01-13 21:17 | XMS_ITS | Encounter Summary ---
Author Organization Jose Alejandro Kit Rushingmarysol [facility] Address [address] [place] [address] Care Team Providers Care Roller Painter Name Role Phone Felicitas Monaco MD Primary Care Provider [phone] Encounter Details Date Type Department Care Team (Late st Contact Info) Description 07/14/2022 Orders Only [place] [facility] - [facility] [address] [address] [address] [place] [address] Georgi Butterfield MD [address] [place] [address] Carcinoma of ascending colon (HCC) [...] Visit Neurology - [facility] 2[address] [facility] [address] [place] [address] Martell Calderon MD 2144 [facility] [address] [place] [address] TREMORS/ MEDICARE, FOR LIFE 03/28/2024 8:30 AM EDT Office Visit Primary Care - [address] [address] Cheo Santoyo, 1112 [place] [address] AWV 04/06/2024 9:45 AM EST Lab [place] [facility] - [facility] 2084 [facility] [address] [place] [address] CBCMP,CEA,FEST 04/06/2024 10:15 AM EST Office Visit [place] [facility] - [facility] 2084 [facility] [address] [place] [address] Georgi Butterfield MD 3510 [facility] [place], [place] [address] 6 MTH FU W/LABS, REV SCAN 04/13/2024 9:30 AM EST Office Visit Surgical Oncology - [facility] 2084 [facility] [address] [place] [address] Delvis Cheek MD 125 [facility] [address] [place] [address] 1 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
--- OUTSIDE RECORDS SUMMARY | 2024-01-13 21:17 | XMS_ITS | Encounter Summary ---
Author Organization [facility] Kit [facility] Address [address] [place] [address] Care Team Providers Care Culvert Installer Name Role Phone Felicitas Monaco MD Primary Care Provider [phone] Encounter Details Date Type Department Care Team (Late st Contact Info) Description 09/01/2022 Abstract [place] [facility] - [facility] [address] [facility] [address] [place] [address] Georgi Butterfield MD [address] [place] [address] Social History Tobacco Use Types Packs/Day Years [...] Dr. [address] [place] [address] Martell Calderon MD [address] [facility] [address] [place], [place] [address] TREMORS/ MEDICARE, FOR LIFE 03/28/2024 8:30 AM EDT Office Visit Primary Care - [address] [phone] Cheo Santoyo DO 1112 [place] [address] AWV 04/06/2024 9:45 AM EST Lab [place] [facility] - [facility] 2084 [facility] [address] [place] [address] CBCMP,CEA,FEST 04/06/2024 10:15 AM EST Office Visit [place] [facility] - [facility] 2084 [facility] [address] [place] [address] Georgi Butterfield MD 3510 [facility] [address] [place], [place] [address] 6 MTH FU W/LABS, REV SCAN 04/13/2024 9:30 AM EST Office Visit Surgical Oncology - [facility] 2084 [facility] [address] [place] [address] Delvis Cheek MD 125 [facility] 660 [place] [address] 1 YEAR F/U ADENOCARCINOMA OF THE CECUM 06/19/2024 10:30 AM EST Office Visit Orthopaedics- Adalberto Valencia 615 [facility] [address] [place] [address] Karly Bautista PA [address] [place] [address] annual visit from date of surgery May/Jul 2024 for bilateral TKA and right LIZZ with Karly. documented as of this encounter Visit Diagnoses Not on filedocumented in this encounter Care Teams Culvert Installer Relationship Specialty Start Date End Date Felicitas Monaco MD PCP - General Family Medicine 06/18/22 07/05/23 documented as of this encounter
--- OUTSIDE RECORDS SUMMARY | 2024-01-13 21:17 | XMS_ITS | Encounter Summary ---
Author Organization Jose Alejandro Kit Satorismarysol [facility] Address [address] [place] [address] Care Team Providers Care Program Administrator Name Role Phone Felicitas Monaco MD Primary Care Provider [phone] Reason for Visit * Reason Onset Date Comments Other 07/28/2022 Medication updat e Call Patient 07/28/2022 Encounter Details Date Type Department Care Team ([facility] Contact Info) Description 07/28/2022 Telephone Neurosurgery & Spine - [address] [place] [address] Willa Sandhu, AUTOMOTIVE PARTS COUNTERPERSON - INSTRUCTOR CREELER [address] [place] [address] Other (Medication update); Call Patient [...] Upcoming Encounters Date Type Department Care Team ([facility] Contact Info) Description 03/24/2024 9:00 AM EDT Office Visit Neurology - [facility] [address] [facility] [address] [place] [address] Martell Calderon MD 2144 [facility] [address] [place], [place] [address] TREMORS/ MEDICARE, FOR LIFE 03/28/2024 8:30 AM EDT Office Visit Primary Care - [address] [address] Che[address]oyo [address] [address] AWV 04/06/2024 9:45 AM EST Lab [place] [facility] - [facility] 2084 [facility] [address] [place] [address] CBCMP,CEA,FEST 04/06/2024 10:15 AM EST Office Visit [place] [facility] - [facility] 2084 [facility] [address] [place] [address] Georgi Butterfield MD 3510 [facility] [address] [facility] 225 [place] [address] 6 MTH FU W/LABS, REV SCAN 04/13/2024 9:30 AM EST Office Visit Surgical Oncology - [facility] 2084 [facility] [address] [place] [address] Delvis Cheek MD 125 [facility] 660 [place] [address] 1 YEAR F/U ADENOCARCINOMA OF THE CECUM 06/19/2024 10:30 AM EST Office Visit Orthopaedics- Les Valencia 615 [facility] 100 [place] [address] Karly Bautista, BURT 180 [facility] 301 [place] [address] annual visit from date of surgery May/Jul 2024 for bilateral TKA and right LIZZ with Karly. documented as of this encounter Visit Diagnoses Not on filedocumented in this encounter Care Teams Program Administrator Relationship Specialty Start Date End Date Felicitas Monaco MD PCP - General Family Medicine 06/18/22 07/05/23 documented as of this encounter
--- OUTSIDE RECORDS SUMMARY | 2024-01-13 21:17 | XMS_ITS | Encounter Summary ---
Author Organization Jose Alejandro Raymundolinnea [facility] Address [address] [place] [address] Care Team Providers Care Property Developer Name Role Phone Felicitas Monaco MD Primary Care Provider [phone] Encounter Details Date Type Department Care Team (Late Contact Info) Description 08/20/2022 1:10 PM EDT Ancillary Procedure Orthopaedics - [address] [place] [address] Social History Tobacco Use Types [...] Dr. [address] [place] [address] Martell Calderon MD [address] [place] [address] TREMORS/ MEDICARE, FOR LIFE 03/28/2024 8:30 AM EDT Office Visit Primary Care - [address] [address] Cheo Santoyo, [address] [place] [phone] AWV 04/06/2024 9:45 AM EST Lab [place] [facility] - [facility] 2084 [facility] [address] [place] [address] CBCMP,CEA,FEST 04/06/2024 10:15 AM EST Office Visit [place] [facility] - [facility] 2084 [facility] [address] [place] [address] Georgi Butterfield MD [address] [place], [place] [address] 6 MTH FU W/LABS, REV SCAN 04/13/2024 9:30 AM EST Office Visit Surgical Oncology - [facility] 2084 [facility] [address] [place] [address] Delvis Cheek MD 125 [facility] 660 [place] [address] 1 YEAR F/U ADENOCARCINOMA OF THE CECUM 06/19/2024 10:30 AM EST Office Visit Orthopaedics- Les Valencia 615 [address] [facility] [address] [place] [address] Karly Bautista PA [address] [place] [address] annual visit from date of [...] today. ??X-rays show severe osteoarthritis with near xgeb-ie-ijyq appearance of the medial compartment with significant [...] osteoarthritis of the right knee with near mama-ya-dlpc appearance in the medial compartment with significant narrowing of the medial joint space resulting in mild varus malalignment. ?? Osteophytes are appreciated on the medial femoral condyle. Bonny RODRIGUEZG DIAGNOSTIC IMAGI NG ORDERABLES documented in this encounter Visit Diagnoses Not on filedocumented in this encounter Care Teams Property Developer Relationship Specialty Start Date End Date Felicitas Monaco MD PCP - General Family Medicine 06/18/22 07/05/23 documented as of this encounter
--- OUTSIDE RECORDS SUMMARY | 2024-01-13 21:17 | XMS_ITS | Encounter Summary ---
Author Organization Jose Alejandro Raymundolinnea [facility] Address [address] [employer] [place] [address] Care Team Providers Care Drip Box Tender Name Role Phone Felicitas Monaco MD Primary Care Provider [phone] Reason for Referral * Imaging (Routine) - Closed Specialty Diagnoses / Procedures Referred By Rachid jimenez Referred To Contact Radiology Diagnoses Acquired deformity of left knee Procedures CT KNEE LEFT WO CONTRAST Bonny Mcarthur PA [address] [address] Referral ID Status Reason Start Date Expiration Date Visits Re quested Visits Authorized [id number] Closed 09/29/2022 09/29/2023 1 1 Reason for Visit * Imaging (Routine) - Closed Specialty Diagnoses / Procedures Referred By Rachid jimenez Referred To Contact Radiology Diagnoses Acquired deformity of left knee Procedures CT KNEE LEFT WO CONTRAST Bonny Mcarthur PA [address] [address] Referral ID Status Reason Start Date Expiration Date Visits Re quested Visits Authorized [id number] Closed 09/29/2022 09/29/2023 1 1 Encounter Details Date Type Department Care Team (Latest Contact Info) Description 11/12/2022 11:38 AM EDT - 11/12/2022 11:59 PM EDT Hospital Encounter [facility] [address] [address] Acquired deformity of left knee Discharge Disposition: [...] Neurology - [facility] 2144 [facility] [address] [place] [address] Martell Calderon MD 2144 [facility] [address] [place] [address] TREMORS/ MEDICARE, FOR LIFE 03/28/2024 8:30 AM EDT Office Visit Primary Care - [address] [address] [place] [address] [place] [address] AWV 04/06/2024 9:45 AM EST Lab [place] [facility] [address] [facility] [address] [place] [address] CBCMP,CEA,FEST 04/06/2024 10:15 AM EST Office Visit [place] [facility] [address] [facility] [address] [place] [address] Georgi Butterfield MD [address] [place] [address] 6 MTH FU W/LABS, REV SCAN 04/13/2024 9:30 AM EST Office Visit Surgical Oncology - [facility] [address] [facility] [address] [place] [address] Delvis Cheek MD 125 [facility] [address] [place] [address] 1 YEAR F/U ADENOCARCINOMA OF THE CECUM 06/19/2024 10:30 AM EST Office Visit Orthopaedics- Les Valencia 615 [facility] [address] [place] [address] Karly Bautista, BURT [address] [place] [address] annual visit from date of [...] feel free to call me directly using Isabella Oliver. This note was created using voice recognition software and may contain typographic errors missed during final review. The intent is to have a complete and accurate medical record. ?As a valued partner in this safety effort, if you have noted factual errors, please complete the Health Information Amendment/Correct Form or call the [facility] Health Information Management Office at [phone]. Narrative 11/12/2022 3:06 PM EDT Indication: eval joint deformity for surgical planning - Gage Hugo protocol M21.962,Unspecified acquired deformity of left [...] eval joint deformity for surgical planning - Gage Diomedesoprotocol M21.962,Unspecified acquired deformity of left lower [...] feel free to call me directly using Isabella Oliver. This note was created using voice recognition software and may contain typographic errors missed during final review. The intent is to have acomplete and accurate medical record. ?As a valued partner in this safety effort,if you have noted factual errors, please complete the Health Information Amendment/Correct Form or call the [facility] Health Information ManagementOffice at [phone]. Bonny DALLAS G CT ORDERABLES documented in this encounter Visit Diagnoses Diagnosis Acquired deformity of left knee documented in this encounter Care Teams Drip Box Tender Relationship Specialty Start Date End Date Felicitas Monaco MD PCP - General Family Medicine 06/18/22 07/05/23 documented as of this encounter
--- OUTSIDE RECORDS SUMMARY | 2024-01-13 21:17 | XMS_ITS | Encounter Summary ---
Author Organization Jose Alejandro Kit [facility]sol [facility] Address [address] [place] [address] Care Team Providers Care Physician Relations Manager Name Role Phone Felicitas Monaco MD Primary Care Provider [phone] Encounter Details Date Type Department Care Team [...] Dr. [address] [place] [address] Martell Calderon MD [address] [facility] [address] [place] [address] TREMORS/ MEDICARE, FOR LIFE 03/28/2024 8:30 AM EDT Office Visit Primary Care - [facility] [address] [place] [phone] Cheo Santoyo DO [address] [place] [address] AWV 04/06/2024 9:45 AM EST Lab [place] [facility] - [facility] 2084 [facility] [address] [place] [address] CBCMP,CEA,FEST 04/06/2024 10:15 AM EST Office Visit [place] [facility] - [facility] 2084 [facility] [address] [place] [address] Georgi Butterfield MD [address] [place], [place] [address] 6 MTH FU W/LABS, REV SCAN 04/13/2024 9:30 AM EST Office Visit Surgical Oncology - [facility] 2084 [facility] [address] [place] [address] Delvis Cheek MD 125 [facility] 660 [place] [address] 1 YEAR F/U ADENOCARCINOMA OF THE CECUM 06/19/2024 10:30 AM EST Office Visit Orthopaedics- Les Valencia 615 [facility] [address] [place] [address] Karly Bautista PA [address] [place] [address] annual visit from date of surgery May/Jul 2024 for bilateral TKA and right LIZZ with Karly. documented as of this encounter Visit Diagnoses Not on filedocumented in this encounter Care Teams Physician Relations Manager Relationship Specialty Start Date End Date Felicitas Monaco MD PCP - General Family Medicine 06/18/22 2 documented as of this encounter
--- OUTSIDE RECORDS SUMMARY | 2024-01-13 21:17 | XMS_ITS | Encounter Summary ---
Author Organization [facility] Address [address] [place] [address] Care Team Providers Care Limo Driver Name Role Phone Felicitas Monaco MD Primary Care Provider [phone] Reason for Visit * Reason Onset Date Comments Medication Refill 08/12/2022 Encounter Details Date Type Department Care Team (Late Contact Info) Description 08/12/2022 Refill Primary Care - [address] - [address] [place] [address] Felicitas Monaco MD 203 [place] [address] Medication Refill Social History Tobacco [...] Dr. [address] [place] [address] Martell Calderon MD 2144 [facility] [address] [place] [address] TREMORS/ MEDICARE, FOR LIFE 03/28/2024 8:30 AM EDT Office Visit Primary Care - [address] [phone] Cheo Santoyo, DO [address] [place] [address] AWV 04/06/2024 9:45 AM EST Lab [facility] - [facility] [place], [facility] [address] [facility] [address] [place] [address] CBCMP,CEA,FEST 04/06/2024 10:15 AM EST Office Visit [facility] - [facility] [place], [facility] [address] [facility] [address] [place] [address] Georgi Butterfield MD [address] [place], [place] [id number] 6 MTH FU W/LABS, REV SCAN 04/13/2024 9:30 AM EST Office Visit Surgical Oncology - [facility] [place], [facility] [address] [facility] [address] [place] [address] Delvis Cheek MD 125 [facility] 660 [place] [address] 1 YEAR F/U ADENOCARCINOMA OF THE CECUM 06/19/2024 10:30 AM EST Office Visit Orthopaedics- Les Valencia [address] [facility] [address] [place] [address] Karly Bautista, BURT [address] [place] [address] annual visit from date of surgery May/Jul 2024 for bilateral TKA and right LIZZ with Karly. documented as of this encounter Visit Diagnoses Not on filedocumented in this encounter Care Teams Limo Driver Relationship Specialty Start Date End Date Felicitas Monaco MD PCP - General Family Medicine 06/18/22 07/05/23 documented as of this encounter
--- OUTSIDE RECORDS SUMMARY | 2024-01-13 21:17 | XMS_ITS | Encounter Summary ---
Author Organization [facility] Address [address] [place] [address] Care Team Providers Care Plastic Cutter Name Role Phone Felicitas Monaco MD Primary Care Provider [phone] Reason for Visit * Auth/Cert (Routine) Specialty Diagnoses / Procedures Referred By Rachid reid Referred To Contact Diagnoses Unilateral primary osteoarthritis, right hip Procedures PA ARTHROCENTESIS ASPIR&/INJ MAJOR JT/BURSA W/O US Martinez Guthrie MD [address] [place] [phone] Referral ID Status Reason Start Date Expiration Date Visits Re quested Visits Authorized [id number] 05/26/2022 1 1 Encounter Details Date Type Department Care Team (Late st Contact Info) Description 06/18/2022 8:10 AM EST - 06/18/2022 8:20 AM EST Surgery [facility] PAIN MGMT OR 2094 [place], [place] [id number] Martinez Guthrie MD [address] [place] [address] INTRA ARTICULAR HIP RIGHT HIP Surgery [...] Neurology - [facility] 2[address] [facility] [address] [place] [address] Martell Calderon MD 2144 [facility] [address] [place] [address] TREMORS/ MEDICARE, FOR LIFE 03/28/2024 8:30 AM EDT Office Visit Primary Care - [address] [address] Cheo Santoyo DO 1112 [place] [address] AWV 04/06/2024 9:45 AM EST Lab [facility] - [facility] 2084 [facility] [address] [place] [address] CBCMP,CEA,FEST 04/06/2024 10:15 AM EST Office Visit [facility] - [facility] 2084 [facility] [address] [place] [address] Georgi Butterfield MD 3510 [facility] [address] [place] [address] 6 MTH FU W/LABS, REV SCAN 04/13/2024 9:30 AM EST Office Visit Surgical Oncology - [facility] [address] [facility] [address] [place] [address] Delvis Cheek MD 125 [facility] [address] [place] [address] 1 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
--- OUTSIDE RECORDS SUMMARY | 2024-01-13 21:17 | XMS_ITS | Encounter Summary ---
Author Organization [facility] Address [address] [place] [address] Care Team Providers Care Psychology Instructor Name Role Phone Felicitas Monaco MD Primary Care Provider [phone] Encounter Details Date Type Department Care Team (Late st Contact Info) Description 08/19/2022 Telephone Primary Care - [address] - [address] [place] [address] Felicitas Monaco MD 203 [place] [address] Social History Tobacco Use Types [...] Dr. [address] [place] [address] Martell Calderon MD [address] [place] [address] TREMORS/ MEDICARE, FOR LIFE 03/28/2024 8:30 AM EDT Office Visit Primary Care - [address] [phone] Cheo Santoyo, DO 1112 [place] [address] AWV 04/06/2024 9:45 AM EST Lab [facility] - [facility] 20[address] [facility] [address] [place] [address] CBCMP,CEA,FEST 04/06/2024 10:15 AM EST Office Visit [facility] - [facility] 2084 [facility] [address] [place] [address] Georgi Butterfield MD 3510 [facility] [address] [place], [place] [phone] 6 MTH FU W/LABS, REV SCAN 04/13/2024 9:30 AM EST Office Visit Surgical Oncology - [facility] [address] [facility] [address] [place] [address] Delvis Cheek MD 125 [facility] 660 [place] [address] 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 [address] [place] [address] Karly Bautista PA [address] [place] [address] annual visit from date of surgery May/Jul 2024 for bilateral TKA and right LIZZ with Karly. documented as of this encounter Visit Diagnoses Not on filedocumented in this encounter Care Teams Psychology Instructor Relationship Specialty Start Date End Date Felicitas Monaco MD PCP - General Family Medicine 06/18/22 07/05/23 documented as of this encounter
--- OUTSIDE RECORDS SUMMARY | 2024-01-13 21:17 | XMS_ITS | Encounter Summary ---
Author Organization [facility] Address [address] [place] [address] Care Team Providers Care Garbage Stoker Name Role Phone Felicitas Monaco MD Primary Care Provider [phone] Encounter Details Date Type Department Care Team (Late st Contact Info) Description 09/03/2022 Orders Only [facility] - [facility]. [address] [facility] [address] [place] [phone] Georgi Butterfield MD [address] [place] [address] Social History Tobacco Use Types [...] Dr. [address] [place] [address] Martell Calderon MD [address] [facility] [address] [place], [place] [address] TREMORS/ MEDICARE, FOR LIFE 03/28/2024 8:30 AM EDT Office Visit Primary Care - [address] [phone] Cheo Santoyo, 1112 [place] [address] AWV 04/06/2024 9:45 AM EST Lab [facility] - [facility] 2084 [facility] [address] [place] [address] CBCMP,CEA,FEST 04/06/2024 10:15 AM EST Office Visit [facility] - [facility] 2084 [facility] [address] [place] [address] Georgi Butterfield MD [address] [place], [place] [address] 6 MTH FU W/LABS, REV SCAN 04/13/2024 9:30 AM EST Office Visit Surgical Oncology - [facility] 2084 [facility] [address] [place] [address] Delvis Cheek MD 125 [facility] 660 [place] [address] 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
--- OUTSIDE RECORDS SUMMARY | 2024-01-13 21:17 | XMS_ITS | Encounter Summary ---
Author Organization [facility] Address [address] [place] [address] Care Team Providers Care Director Of Student Life Name Role Phone Felicitas Moanco MD Primary Care Provider [phone] Reason for Referral * Surgical (Routine) - Closed Specialty Diagnoses / Procedures Referred By Rachid jimenez Referred To Contact Orthopedic Surgery Diagnoses Primary osteoarthritis of left knee Procedures [place] ARTHRP KNE CONDYLE&PLATU MEDIAL&LAT COMPARTMENTS Maurice Panchal MD [address] [place] [address] Maurice Panchal MD [address] [place] [address] Referral ID Status Reason Start Date Expiration Date V isits Requested Visits Authorized [id number] Closed Insurance 09/29/2022 09/29/2023 1 1 [place] [address] [address] [facility] Maurice Panchal MD, Orthopaedics MPH [address] [address] Comments The patient can be scheduled with any member of the group, including the provider with the first available appointments. * Imaging (Routine) - Closed Specialty Diagnoses / Procedures Referred By Rachid jimenez Referred To Contact Radiology Diagnoses Acquired deformity of left knee Procedures CT KNEE LEFT WO CONTRAST Bonny Mcarthur PA [address] [place] [address] Referral ID Status Reason Start Date Expiration Date Visits Re quested Visits Authorized [id number] Closed 09/29/2022 09/29/2023 1 1 Reason for Visit * Reason Onset Date Comments Surgery Scheduling 09/28/2022 Encounter Details Date Type Department Care Team ([facility] Contact Info) Description 09/28/2022 Telephone Orthopaedics - Vijaya Guerra Dr. [address] [facility] [employer] [employer] [facility] [address] [place] [address] Bonny Mcarthur PA [address] [facility] 105 [place] [address] Surgery Scheduling Social History Tobacco Use Types [...] Upcoming Encounters Date Type Department Care Team ([facility] Contact Info) Description 03/24/2024 9:00 AM EDT Office Visit Neurology - Maryan Jacobsen Dr[address] [place] [address] Martell Calderon MD 2145 [facility] [address] [place] [address] TREMORS/ MEDICARE, FOR LIFE 03/28/2024 8:30 AM EDT Office Visit Primary Care - [address] [phone] Cheo Santoyo DO [address] [place] [address] AWV 04/06/2024 9:45 AM EST Lab [facility] - [facility] 2084 [facility] [address] [place] [address] CBCMP,CEA,FEST 04/06/2024 10:15 AM EST Office Visit [facility] - [facility] 2084 [facility] [address] [place] [address] Georgi Butterfield MD [address] [place] [address] 6 MTH FU W/LABS, REV SCAN 04/13/2024 9:30 AM EST Office Visit Surgical Oncology - [facility] 2084 [facility] [address] [place] [address] Delvis Cheek MD 125 [facility] 660 [place] [address] 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 This note was created using voice recognition software and may contain typographic errors missed during final review. The intent is to have a complete and accurate medical record. ?As a valued partner in this safety effort, if you have noted factual errors, please complete the Health Information Amendment/Correct Form or call the [facility] Health Information Management Office at [phone]. Narrative 11/12/2022 3:06 PM EDT Indication: eval [...] feel free to call me directly using [employer]. This note was created using voice recognition software and may contain typographic errors missed during final review. The intent is to have acomplete and accurate medical record. ?As a valued partner in this safety effort,if you have noted factual errors, please complete the Health Information Amendment/Correct Form or call the [facility] Health Information ManagementOffice at [phone]. Bonny D[place]AS IMG CT ORDERABLES documented in this encounter Visit Diagnoses Diagnosis Preoperative testing- Primary Preoperative examination, unspecified Acquired deformity of left knee Primary osteoarthritis of left knee Primary localized osteoarthrosis, lower leg Acquired deformity of left knee documented in this encounter Care Teams Director Of Student Life Relationship Specialty Start Date End Date Felicitas Monaco MD PCP - General Family Medicine 06/18/22 07/05/23 documented as of this encounter
--- OUTSIDE RECORDS SUMMARY | 2024-01-13 21:17 | XMS_ITS | Encounter Summary ---
Author Organization [facility] Address [address] [place] [address] Care Team Providers Care Linux Admin Name Role Phone Felicitas Monaco MD Primary Care Provider [phone] Reason for Referral * Eval and Treat (Routine) - Closed Specialty Diagnoses / Procedures Referred By Rachid jimenez Referred To Contact Orthopedic Surgery Diagnoses Primary osteoarthritis of right knee Primary osteoarthritis of left knee Dave Lynne Jr., MD 2092 [facility] 200 [place] [address] Maurice Panchal MD [address] [address] Referral ID Status Reason Start Date Expiration Date V isits Requested Visits Authorized [id number] Closed Specialty Services Required 07/07/2022 07/07/2023 1 1 Scheduling Instructions EVAL AND TREAT FOR POSSIBLE TKA Maurice Panchal MD, Orthopaedics MPH MOB [address] [place] [address] Comments The patient can be scheduled with any member of the group, including the provider with the first available appointments. Patient Information Name: Martínez Toribio : 1955 Mobile Phone: Telephone Information: Work Phone: There is no work phone number on file. Address: [address] [facility] [address] Reason for Visit * Reason Comments Follow-up Right hip pain Encounter Details Date Type Department Care Team (Late st Contact Info) Description 07/07/2022 9:50 AM EST Office Visit Orthopaedics - Maryan Jacobsen Dr[address] [place] [address] Dave Lynne Jr., MD [address] [place] [address] Primary osteoarthritis of right hip (Primary Dx); [...] Negative Impingement Mildly Positive Hip Scouring negative Mxyljc-4-jfxgjotq Negative Extension ER Negative KATLYN Test Negative [...] Dr. [address] [place] [address] Martell Calderon MD [address] [facility] [address] [place] [address] TREMORS/ MEDICARE, FOR LIFE 03/28/2024 8:30 AM EDT Office Visit Primary Care - [facility] [address] [place] [address] Cheo Santoyo DO 1112 [place] [address] AWV 04/06/2024 9:45 AM EST Lab [facility] - [facility] 2084 [facility] [address] [place] [address] CBCMP,CEA,FEST 04/06/2024 10:15 AM EST Office Visit [facility] - [facility] 2084 [facility] [address] [place] [address] Georgi Butterfield MD 3510 [facility] [address] [place], [place] [phone] 6 MTH FU W/LABS, REV SCAN 04/13/2024 9:30 AM EST Office Visit Surgical Oncology - [facility] 2084 [facility] [address] [place] [address] Delvis Cheek MD 125 [facility] 660 [place] [address] 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
--- OUTSIDE RECORDS SUMMARY | 2024-01-13 21:17 | XMS_ITS | Encounter Summary ---
Author Organization [facility] Kit [facility] Address [address] [place] [address] Care Team Providers Care Gerontological Nurse Practitioner Name Role Phone Felicitas Monaco MD Primary Care Provider [phone] Reason for Visit * Reason Onset Date Comments Medication Refill 08/13/2022 Encounter Details Date Type Department Care Team (Late Contact Info) Description 08/13/2022 Refill Primary Care - Mary[address] [place] [address] Felicitas Monaco MD 203 [place] [address] Medication Refill Social History Tobacco [...] Dr. [address] [place] [address] Martell Calderon MD 2144 [facility] [address] [place] [address] TREMORS/ MEDICARE, FOR LIFE 03/28/2024 8:30 AM EDT Office Visit Primary Care - [address] [phone] Cheo Santoyo, DO [address] [place] [address] AWV 04/06/2024 9:45 AM EST Lab [facility] - [facility] [address] [facility] [address] [place] [address] CBCMP,CEA,FEST 04/06/2024 10:15 AM EST Office Visit [facility] - [facility] [address] [facility] [address] [place] [address] Georgi Butterfield MD [address] [place], [place] [phone] 6 MTH FU W/LABS, REV SCAN 04/13/2024 9:30 AM EST Office Visit Surgical Oncology - [facility] [address] 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 documented as of this encounter Visit Diagnoses Not on filedocumented in this encounter Care Teams Gerontological Nurse Practitioner Relationship Specialty Start Date End Date Felicitas Monaco MD PCP - General Family Medicine 06/18/22 07/05/23 documented as of this encounter
--- OUTSIDE RECORDS SUMMARY | 2024-01-13 21:17 | XMS_ITS | Encounter Summary ---
Author Organization Jose Alejandro Kit [employer] [facility] Address [address] [place] [address] Care Team Providers Care Applications Support Specialist Name Role Phone Felicitas Monaco MD Primary Care Provider [phone] Encounter Details Date Type Department Care Team (Late st Contact Info) Description 07/24/2022 Orders Only [facility] - [facility]. 8950 [facility] [address] [place] [address] Georgi Butterfield MD [address] [place] [address] Carcinoma of ascending colon (HCC) [...] Visit Neurology - [facility] 2144 [facility] [address] [place] [address] Martell Calderon MD 2144 [facility] [address] [place] [address] TREMORS/ MEDICARE, FOR LIFE 03/28/2024 8:30 AM EDT Office Visit Primary Care - [address] [address] Cheo Santoyo, 1112 [place] [address] AWV 04/06/2024 9:45 AM EST Lab [facility] - [facility] [address] [facility] [address] [place] [address] CBCMP,CEA,FEST 04/06/2024 10:15 AM EST Office Visit [facility] - [facility] [address] [facility] [address] [place] [address] Georgi Butterfield MD [address] [place] [address] 6 MTH FU W/LABS, REV SCAN 04/13/2024 9:30 AM EST Office Visit Surgical Oncology - [facility] [address] 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
--- OUTSIDE RECORDS SUMMARY | 2024-01-13 21:17 | XMS_ITS | Encounter Summary ---
Author Organization Jose Alejandro Kit Castorena [facility] Address [address] [email or web address] [address] Care Team Providers Care Nurse Plastics Name Role Phone Felicitas Monaco MD Primary Care Provider [phone] Encounter Details Date Type Department Care Team (Late st Contact Info) Description 07/02/2022 Abstract Primary Care - [address] - [address] [place] [address] Felicitas Monaco MD [address] [place] [address] Social History Tobacco Use Types [...] [address] [place] [phone] Martell Calderon MD 2144 [facility] [address] [place], [place] [id number] TREMORS/ MEDICARE, FOR LIFE 03/28/2024 8:30 AM EDT Office Visit Primary Care - [facility] [address] [place] [address] Cheo Santoyo DO [address] [place] [address] AWV 04/06/2024 9:45 AM EST Lab [facility] - [facility] [place] 2084 [facility] [place] [address] [place] [address] CBCMP,CEA,FEST 04/06/2024 10:15 AM EST Office Visit [facility] - [facility] [place] 2084 [facility] [place] [address] [place] [address] Georgi Butterfield MD 3510 [facility] 17N [facility] 225 [place], [place] [id number] 6 MTH FU W/LABS, REV SCAN 04/13/2024 9:30 AM EST Office Visit Surgical Oncology - [facility] [place] 2084 [facility] [place] [address] [place] [address] Delvis Cheek MD 125 [facility] 660 [place] [address] 1 YEAR F/U [facility] 06/19/2024 10:30 AM EST Office Visit Orthopaedics- Les Valencia [address] [facility] [address] [place] [phone] Karly Bautista, PA 180 [facility] 301 [place] [address] annual visit from date of surgery May/Jul 2024 for bilateral TKA and right LIZZ with Karly. documented as of this encounter Visit Diagnoses Not on filedocumented in this encounter Care Teams Nurse Plastics Relationship Specialty Start Date End Date Felicitas Monaco MD PCP - General Family Medicine 06/18/22 07/05/23 documented as of this encounter
--- OUTSIDE RECORDS SUMMARY | 2024-01-13 21:17 | XMS_ITS | Encounter Summary ---
Author Organization Jose Alejandro Kit [facility] Address [address] [place] [address] Care Team Providers Care Finished Goods Stock Clerk Name Role Phone Felicitas Monaco MD Primary Care Provider [phone] Reason for Visit * Reason Onset Date Comments Other 10/07/2022 SURGERY CLEARANC E FORM Encounter Details Date Type Department Care Team (Late Contact Info) Description 10/07/2022 Telephone Orthopaedics - [address] [facility] [address] [place] [phone] Maurice Panchal MD 3510 [facility] 17 [facility] 105 [place] [address] Other (SURGERY CLEARANCE FORM) Social [...] Dr. [address] [place] [address] Martell Calderon MD 3535 [facility] [address] [place] [address] TREMORS/ MEDICARE, FOR LIFE 03/28/2024 8:30 AM EDT Office Visit Primary Care - [facility] [address] [place] [phone] Cheo Santoyo, DO 1112 [place] [address] AWV 04/06/2024 9:45 AM EST Lab [facility] - [facility] 2084 [facility] [address] [place] [phone] CBCMP,CEA,FEST 04/06/2024 10:15 AM EST Office Visit [facility] - [facility] 2084 [facility] [address] [place] [phone] Georgi Butterfield MD [address] [place] [address] 6 MTH FU W/LABS, REV SCAN 04/13/2024 9:30 AM EST Office Visit Surgical Oncology - [facility] 2084 [facility] [address] [place] [address] Delvis Cheek MD 125 [facility] 660 [place] [phone] 1 YEAR F/U [facility] 06/19/2024 10:30 AM EST Office Visit Orthopaedics- Les Valencia [address] [facility] [address] [place] [phone] Karly Bautista PA [address] [place] [address] annual visit from date of surgery May/Jul 2024 for bilateral TKA and right LIZZ with Karly. documented as of this encounter Visit Diagnoses Not on filedocumented in this encounter Care Teams Finished Goods Stock Clerk Relationship Specialty Start Date End Date Felicitas Monaco MD PCP - General Family Medicine 06/18/22 07/05/23 documented as of this encounter
--- OUTSIDE RECORDS SUMMARY | 2024-01-13 21:17 | XMS_ITS | Encounter Summary ---
Author Organization Jose Alejandro [facility] Address [address] [place] [address] Care Team Providers Care Hydrodynamics Professor Name Role Phone Felicitas Monaco MD Primary Care Provider [phone] Reason for Visit * Reason Comments Knee Pain Bilateral knee pain Encounter Details Date Type Department Care Team (Latest Contact Info) Description 08/20/2022 1:00 PM EDT Office Visit Orthopaedics - [address] [phone] Bonny [place], [place] [address] [address] Bilateral primary osteoarthritis of knee (Primary Dx); [...] X- rays show severe osteoarthritis with near efhx-av-menj appearance of the medial compartment with significant [...] Visit Neurology - [facility] [address] [facility] [address] [place] [phone] Martell Calderon MD 2144 [facility] [address] [place] [address] TREMORS/ MEDICARE, FOR LIFE 03/28/2024 8:30 AM EDT Office Visit Primary Care - [address] [address] Cheo Santoyo, [address] [phone] AWV 04/06/2024 9:45 AM EST Lab [facility] - [facility] 2084 [facility] [address] [place] [address] CBCMP,CEA,FEST 04/06/2024 10:15 AM EST Office Visit [facility] - [facility] 2084 [facility] [address] [place] [address] Georgi Butterfield MD [address] [place] [address] 6 MTH FU W/LABS, REV SCAN 04/13/2024 9:30 AM EST Office Visit Surgical Oncology - [facility] 2084 [facility] [address] [place] [address] Delvis Cheek MD 125 [facility] 660 [place] [phone] 1 YEAR F/U [facility] 06/19/2024 10:30 AM EST Office Visit Orthopaedics- Les Valencia 615 [facility] [address] [address] [place] [phone] Karly Bautista PA [address] [place] [phone] annual visit from date of surgery May/Jul [...] today. ??X-rays show severe osteoarthritis with near zntq-hu-lwdv appearance of the medial compartment with significant [...] osteoarthritis of the right knee with near kwgc-nk-unoe appearance in the medial compartment with significant narrowing of the medial joint space resulting in mild varus malalignment. ?? Osteophytes are appreciated on the medial femoral condyle. Bonny [facility] IMG DIAGNOSTIC IMAGI NG ORDERABLES documented in this encounter Visit Diagnoses Diagnosis Bilateral primary osteoarthritis of knee- Primary Pain in both knees, unspecified chronicity documented in this encounter Care Teams Hydrodynamics Professor Relationship Specialty Start Date End Date Felicitas Monaco MD PCP - General Family Medicine 06/18/22 07/05/23 documented as of this encounter
--- OUTSIDE RECORDS SUMMARY | 2024-01-13 21:17 | XMS_ITS | Encounter Summary ---
Author Organization Jose Alejandro Kit Castorena [facility] Address [address] [place] [address] Care Team Providers Care Pharmacy Grad Intern Name Role Phone Felicitas Monaco MD Primary Care Provider [phone] Reason for Visit * Reason Comments Follow-up 3 month f/u Encounter Details Date Type Department Care Team (Late st Contact Info) Description 09/21/2022 10:30 AM EDT Office Visit Primary Care - [address] - [address] [place] [address] Felicitas Monaco MD [address] [place] [phone] Chronic low back pain, unspecified back [...] pain. Patient had labs drawn at [facility] after our last visit. These labs [...] time. Limited mobility. -Has seen neurosurgery with [facility]. Has upcoming appointment to discuss plans for surgical intervention. -Has been recommended for bilateral knee replacement and will plan to do this after his back surgery. -Requesting a refill on [place] which he uses very occasionally for his [...] to d/c the Carafate and iron. 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 Refill of [place] provided. Patient requesting Flexeril to use as [...] long-term current use of insulin ([facility]) Comments: Improved. Continue metformin, Jardiance Trulicbrielle Orders: - AMB POC HEMOGLOBIN A1C Patient will request the labs from the [employer] for me to review. An electronic signature was used to authenticate this note. --Felicitas Monaco MD documented in this encounter Plan of Treatment Upcoming Encounters Date Type Department Care Team (Late st Contact Info) Description 03/24/2024 9:00 AM EDT Office Visit Neurology - Maryan [address] [place] [phone] Martell Calderon MD 2144 [facility] [address] [place], [place] [phone] TREMORS/ MEDICARE, FOR LIFE 03/28/2024 8:30 AM EDT Office Visit Primary Care - [facility] [address] [place] [phone] Cheo Santoyo DO 1112 [place] [address] AWV 04/06/2024 9:45 AM EST Lab [facility] - [facility] 2084 [facility] [address] [place] [address] CBCMP,CEA,FEST 04/06/2024 10:15 AM EST Office Visit [facility] - [facility] 2084 [facility] [address] [place] [address] Georgi Butterfield MD 3510 [facility] 17N [facility] 225 [place], [place] [phone] 6 MTH FU W/LABS, REV SCAN 04/13/2024 9:30 AM EST Office Visit Surgical Oncology - [facility] 2084 [facility] [address] [place] [address] Delvis Cheek MD 125 [facility] 660 [place] [address] 1 YEAR F/U [facility] 06/19/2024 10:30 AM EST Office Visit Orthopaedics- Les Valencia [address] [facility] [address] [place] [address] Karly Bautista, PA 180 [facility] 301 [place] [address] annual visit from date of surgery May/Jul [...] (HCC) documented in this encounter Care Teams Pharmacy Grad Intern Relationship Specialty Start Date End Date Felicitas Monaco MD PCP - General Family Medicine 06/18/22 07/05/23 documented as of this encounter
--- OUTSIDE RECORDS SUMMARY | 2024-01-13 21:17 | XMS_ITS | Encounter Summary ---
Author Organization Jose Alejandro Kit [facility] Address [address] [place] [address] Care Team Providers Care Eyeglass Maker Name Role Phone Felicitas Monaco MD Primary Care Provider [phone] Reason for Visit * Reason Comments Back Pain Left side lower back ; mild sciatic pains-radiates down to the left gluteal region. Encounter Details Date Type Department Care Team (Latest Contact Info) Description 07/27/2022 2:30 PM EST Office Visit Physical Medicine & Rehabilitation - Maryan [address]sen [address] [place] [address] Willa Sandhu, PHILANTHROPY OFFICER - WALLPAPER CONSULTANT [address] [place] [address] Spinal stenosis of lumbar region with neurogenic [...] this encounter Progress Notes * Willa Sandhu, PHILANTHROPY OFFICER - WALLPAPER CONSULTANT - 07/27/2022 2:30 PM EST LING 01/22/2020,RE:Pt [...] by primary care provider, prescribed Flexeril and [place] which she has taken with mild relief. [...] [facility] PAIN MANAGEMENT JOINT REPLACEMENT KNEE [...] claudication 2. Sacroiliitis (HCC) Willa Kemp. Edson [facility]- Neurosurgery Nurse Practitioner documented in this encounter Plan of Treatment Upcoming Encounters Date Type Department Care Team (Late st Contact Info) Description 03/24/2024 9:00 AM EDT Office Visit Neurology - [facility] 2[address] [facility] [address] [place] [address] Martell Calderon MD 2144 [facility] [address] [place] [address] TREMORS/ MEDICARE, FOR LIFE 03/28/2024 8:30 AM EDT Office Visit Primary Care - [address] [phone] Cheo Santoyo, [address] [place] [address] AWV 04/06/2024 9:45 AM EST Lab [facility] - [facility] 2084 [facility] [address] [place] [address] CBCMP,CEA,FEST 04/06/2024 10:15 AM EST Office Visit [facility] - [facility] 2084 [facility] [address] [place] [address] Georgi Butterfield MD [address] [place] [address] 6 MTH FU W/LABS, REV SCAN 04/13/2024 9:30 AM EST Office Visit Surgical Oncology - [facility] [address] [facility] [address] [place] [address] Delvis Cheek MD 125 [facility] [address] [place] [address] 1 YEAR F/U [facility] 06/19/2024 10:30 AM EST Office Visit Orthopaedics- Les Valencia 615 [facility] [address] [place] [address] Karly Bautista, PA 180 [facility] [address] [place] [address] annual visit from date of [...] movement between flexion and extension Willa Sandhu PHILANTHROPY OFFICER - WALLPAPER CONSULTANT IMG DIAGNOSTI C IMAGING ORDERABLES documented in this encounter Visit Diagnoses Diagnosis Spinal stenosis of lumbar region with neurogenic claudication- Primary Spinal stenosis, lumbar region, with neurogenic claudication Sacroiliitis (HCC) Sacroiliitis, not elsewhere classified Spinal stenosis of lumbar region with neurogenic claudication Spinal stenosis, lumbar region, with neurogenic claudication Sacroiliitis (HCC) Sacroiliitis, not elsewhere classified documented in this encounter Care Teams Eyeglass Maker Relationship Specialty Start Date End Date Felicitas Monaco MD PCP - General Family Medicine 06/18/22 07/05/23 documented as of this encounter
--- OUTSIDE RECORDS SUMMARY | 2024-01-13 21:17 | XMS_ITS | Encounter Summary ---
Author Organization Jose Alejandro Raymundolinnea [facility] Address [address] [place] [address] Care Team Providers Care Polysomnographic Technician Name Role Phone Felicitas Monaco MD Primary Care Provider [phone] Reason for Referral * Imaging (Routine) - Open Specialty Diagnoses / Procedures Referred By [facility] Referred To Contact Radiology Diagnoses Carcinoma of ascending colon (HCC) Adenocarcinoma of cecum (HCC) Malignant neoplasm of intestine (HCC) Procedures CT ABDOMEN PELVIS W IV CONTRAST Additional Contrast? None Georgi Butterfield MD [address] [place] [address] Referral ID Status Reason Start Date Expiration Date Visits Re quested Visits Authorized [id number] Open 04/07/2023 04/06/2024 1 1 * Imaging (Routine) - Open Specialty Diagnoses / Procedures Referred By [facility] Referred To Contact Radiology Diagnoses Carcinoma of ascending colon (HCC) Adenocarcinoma of cecum (HCC) Malignant neoplasm of intestine (HCC) Procedures CT CHEST W CONTRAST Georgi Butterfield MD [address] [place] [address] Referral ID Status Reason Start Date Expiration Date Visits Re quested Visits Authorized [id number] Open 04/07/2023 04/06/2024 1 1 Reason for Visit * Reason Comments Follow-up Encounter Details Date Type Department Care Team (Late st Contact Info) Description 10/05/2022 10:15 AM EDT Office Visit [facility] Hematology & Oncology - [facility]. [address] [facility] [address] [place] [address] Georgi Butterfield MD [address] [place] [address] Carcinoma of ascending colon (HCC) [...] from the original note were not included. [facility] HEMATOLOGY & ONCOLOGY Georgi A. Beldner, MD Rosalino Bellil, MD MD Chandna Kirk DO Jenny Riley, MD Margaret Brady, MD Caitlin Mengler, [facility]- Marcela Jackman, [employer] Gisselle Padilla NP [email or web address] Hematology/Medical Oncology Patient Name: Martínez [...] AM EDT Office Visit Neurology - [facility] [address] [facility] [address] [place] [address] Martell Calderon MD [address] [facility] [address] [place] [address] TREMORS/ MEDICARE, FOR LIFE 03/28/2024 8:30 AM EDT Office Visit Primary Care - [address] [phone] Cheo Santoyo, [address] [place] [phone] AWV 04/06/2024 9:45 AM EST Lab [place] [facility] - [facility] [address] [facility] [address] [place] [address] CBCMP,CEA,FEST 04/06/2024 10:15 AM EST Office Visit [place] [facility] - [facility] [address] [facility] [address] [place] [address] Georgi Butterfield MD [address] [place], [place] [phone] 6 MTH FU W/LABS, REV SCAN 04/13/2024 9:30 AM EST Office Visit Surgical Oncology - [facility] [address] [facility] [address] [place] [address] Delvis Cheek MD [address] [facility] [address] [place] [address] 1 YEAR F/U ADENOCARCINOMA OF THE CECUM 06/19/2024 10:30 AM EST Office Visit Orthopaedics- [place] [address] [facility] [address] [place] [address] Karly Bautista PA [address] [place] [address] annual visit from date of [...] recurrent or metastatic disease. Georgi Butterfield MD [facility] CT ORDERABLES * CT CHEST [...] recurrent or metastatic disease. Georgi Butterfield MD [facility] CT ORDERABLES * Reticulocytes (10/05/2022 10:02 AM EDT) RBC 5.18 4.00 - 5.60 x10e6/mcL [facility] Retic Ct Pct 1.7 0.5 - 2.0 % [facility] Retic Ct Abs 0.0865 0.0235 - 0.1220 /mcL [facility] Comment: Test Performed at: [facility] [address] [facility] [place] [address] Blood BLOOD SPECIMEN / Unknown 10/05/2022 10:02 AM EDT 10/05/2022 9:25 PM EDT Georgi Butterfield MD HEMATOLOGY ORDERABL ES Performing Organization Address [facility] Co de Phone Number [facility] [address] [place] [address] * Ferritin (10/05/2022 10:02 AM EDT) Pathologist [facility] Ferritin 244.4 30.0 - 400.0 ng/mL [facility] Comment: Test Performed at: [facility] [address] [place] [address] [place] [address] Blood BLOOD SPECIMEN / Unknown 10/05/2022 10:02 AM EDT 10/05/2022 9:25 PM EDT Georgi Butterfield MD CHEMISTRY ORDERABLE S Performing Organization Address [facility] de Phone Number [facility] [address] [place] [address] * Iron and TIBC (10/05/2022 10:02 AM EDT) [facility] Iron 119 59 - 158 mcg/dL [facility] UIBC 186.3 112.0 - 347.0 mcg/dL [facility] TIBC 306 250 - 450 mcg/dL [facility] Iron % Saturation 39 20 - 40 % [facility] Comment: Test Performed at: [facility] [address] [place] [address] [place] [address] Serum BLOOD SPECIMEN / Unknown 10/05/2022 10:02 AM EDT 10/05/2022 9:25 PM EDT Narrative [facility] - 10/05/2022 9:39 PM EDT Is Patient Fasting?->no No of Hours?->no Georgi Butterfield MD CHEMISTRY ORDERABLE S Performing Organization Address [facility] Co de Phone Number [facility] [address] [place] [address] * Soluble transferrin receptor (10/05/2022 10:02 AM EDT) [facility] Soluble Transferrin Recept 16.5 12.2 - 27.3 nmol/L [facility] Comment: Performed At: [facility] [address] [id number] Ajit Swift MD Ph:[phone] Test Performed at: [facility] [address] [facility] [place] [address] Blood BLOOD SPECIMEN / Unknown 10/05/2022 10:02 AM EDT 10/05/2022 9:25 PM EDT Georgi Butterfield MD HEMATOLOGY ORDERABL ES [facility] [address] [facility] [place] [address] * CBC with Auto Differential (10/05/2022 10:02 [...] ONCOLOGY MPV 7.7 0.0 - 49.9 fL [facility] HEMATOLOGY & ONCOLOGY UN Whole Blood BLOOD SPECIMEN / Unknown 10/05/2022 10:02 AM EDT 10/05/2022 10:02 AM EDT Narrative [facility] HEMATOLOGY & ONCOLOGY UN - 10/05/2022 10:11 AM EDT Testing Location: [facility] Hematology and Oncology, [address] [place] [address] [address] [address], Georgi Butterfield MD HEMATOLOGY ORDERABL ES [facility] HEMATOLOGY & ONCOLOGY [address] [place] [phone], [facility] * (ABNORMAL) Comprehensive Metabolic Panel (10/05/2022 10:02 AM EDT) Sodium 142 135 - 145 mmol/L [facility] Potassium 5.2 3.5 - 5.3 mmol/L [facility] Chloride 105 98 - 107 mmol/L [facility] CO2 26 22 - 29 mmol/L [facility] Glucose 109(H) 70 - 99 mg/dL [facility] BUN 17 8 - 23 mg/dL [facility] Creatinine 1.1 0.7 - 1.3 mg/dL [facility] Anion Gap 10 2 - 17 mmol/L [facility] Osmolaliy Calculated 285 270 - 287 mOsm/kg [facility] Calcium 9.6 8.8 - 10.2 mg/dL [facility] Total Protein 6.5 6.4 - 8.3 g/dL [facility] Albumin 4.6 3.5 - 5.2 g/dL [facility] Globulin 1.9 1.9 - 4.4 g/dL [facility] Albumin/Globulin Ratio 2.40 1.00 - 2.70 [facility] Total Bilirubin 0.71 0.00 - 1.20 mg/dL [facility] Alk Phosphatase 65 40 - 130 unit/L [facility] AST 23 0 - 50 unit/L [facility] ALT 37 0 - 50 unit/L [facility] Est, Glom Filt Rate 74 >=60 mL/min/1.7 3m? [facility] Comment: VERIFIED by Discern Expert. GFR [...] in adults. Test Performed at: [facility] [address] [facility] [place] [address] Blood BLOOD SPECIMEN / Unknown 10/05/2022 10:02 AM EDT 10/05/2022 9:25 PM EDT Georgi Butterfield MD CHEMISTRY ORDERABLE S [facility] [address] [place] [address] documented in this encounter Visit Diagnoses Diagnosis [...] unspecified documented in this encounter Care Teams Polysomnographic Technician Relationship Specialty Start Date End Date Felicitas Monaco MD PCP - General Family Medicine 06/18/22 07/05/23 documented as of this encounter
--- OUTSIDE RECORDS SUMMARY | 2024-01-13 21:17 | XMS_ITS | Encounter Summary ---
Author Organization Jose Alejandro Raymundolinnea [facility] Address [address] [place] [address] Care Team Providers Care Manager E Learning Name Role Phone Felicitas Monaco MD Primary Care Provider [phone] Reason for Visit * Reason Comments New Patient Encounter Details Date Type Department Care Team (Late st Contact Info) Description 06/30/2022 9:30 AM EST Office Visit Primary Care - [address] [place] [address] Felicitas Monaco MD [address] [place] [phone] Type 2 diabetes mellitus without complication, [...] to d/c the Carafate and iron. -his anesthesiology resident felt the ulcer was related to his [...] Once a day for 30 day(s) Yes [facility] Automatic Reconciliation, Dulaglutide (TRULICITY) 0.75 MG/0.5ML SOPN 1.5 mg Yes [facility] Automatic Reconciliation, empagliflozin (JARDIANCE) 25 MG tablet Orally Yes [facility] Automatic Reconciliation, metFORMIN (GLUCOPHAGE) 1000 MG tablet 1 tablet with a meal Orally bid Yes [facility] Automatic Reconciliation, olmesartan (BENICAR) 20 MG tablet Take 20 mg by mouth daily 1/2 tablet daily Yes [facility] Automatic ReconciliationMD pantoprazole (PROTONIX) 40 MG tablet 1 tablet Orally Once a day for 30 day(s) Yes [facility] Automatic ReconciliationMD Family History Problem Relation Age [...] HIP performed by Martinez Guthrie MD at [facility] PAIN MANAGEMENT JOINT REPLACEMENT SUBTOTAL COLECTOMY [...] Visit Neurology - [facility] [address] [facility] [address] [place] [phone] Martell Calderon MD [address] [facility] [address] [place] [address] TREMORS/ MEDICARE, FOR LIFE 03/28/2024 8:30 AM EDT Office Visit Primary Care - [address] [phone] Cheo Santoyo DO [address] [place] [phone] AWV 04/06/2024 9:45 AM EST Lab [place] [facility] - [facility] [address] [facility] [address] [place] [address] CBCMP,CEA,FEST 04/06/2024 10:15 AM EST Office Visit [place] [facility] - [facility] [address] [facility] [address] [place] [address] Georgi Butterfield MD [address] [place] [address] 6 MTH FU W/LABS, REV SCAN 04/13/2024 9:30 AM EST Office Visit Surgical Oncology - [facility] [address] [facility] [address] [place] [address] Delvis Cheek MD 125 [facility] [address] [place] [address] 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 [address] [place] [address] Karly Bautista PA [address] [place] [address] annual visit from date of [...] C Antibody (03/04/2023 1:05 PM EDT) Pathologist [facility] Hepatitis C Ab Negative Negative [facility] Blood BLOOD SPECIMEN / Unknown 03/04/2023 1:05 PM EDT 03/04/2023 4:05 PM EDT Felicitas Monaco MD IMMUNOLOGY ORDERABL ES Performing Organization Address City/[facility]/ZIP Co de Phone Number [facility] [address] [place] [address] * CBC (03/04/2023 1:05 PM EDT) Pathologist [facility] [...] MD HEMATOLOGY ORDERABL ES Performing Organization Address [facility]/ZIP Co de Phone Number [facility] [address] [place] [address] * (ABNORMAL) Comprehensive Metabolic Panel (03/04/2023 1:05 [...] MD CHEMISTRY ORDERABLE S [facility] [address] [facility] [place] [address] * AMB POC HEMOGLOBIN A1C (06/30/2022 10:07 [...] thigh documented in this encounter Care Teams Manager E Learning Relationship Specialty Start Date End Date Felicitas Monaco MD PCP - General Family Medicine 06/18/22 07/05/23 documented as of this encounter
--- OUTSIDE RECORDS SUMMARY | 2024-01-13 21:17 | XMS_ITS | Encounter Summary ---
Author Organization Jose Alejandro [facility] Address [address] [place] [address] Care Team Providers Care Gluten Settling Tender Name Role Phone Felicitas Monaco MD Primary Care Provider [phone] Reason for Visit * Reason Comments Knee Pain Lt knee Encounter Details Date Type Department Care Team (Latest Contact Info) Description 11/12/2022 10:30 AM EDT Office Visit Orthopaedics - [address] [phone] Bonny Mcarthur PA [facility] [address] [address] Bilateral primary osteoarthritis of knee (Primary Dx) [...] X- rays show severe osteoarthritis with near [id number] appearance of the medial compartment with significant [...] M17.0 Plan: Left total knee arthroplasty using Solavista robotic-assisted technology Patient may proceed with right [...] 4-5 months out of the year in [place] and loves to [facility] Follow Up: 4 weeks after scheduled surgery, sooner if needed documented in this encounter Plan of Treatment Upcoming Encounters Date Type Department Care Team (Late st Contact Info) Description 03/24/2024 9:00 AM EDT [facility] [address] [facility] [address] [place] [phone] Martell Calderon MD [address] [facility] [address] [place], [place] [phone] TREMORS/ MEDICARE, FOR LIFE 03/28/2024 8:30 AM EDT Office Visit Primary Care - [address] [phone] Cheo Santoyo, [address] [address] AWV 04/06/2024 9:45 AM EST Lab [place] [facility] [address] [facility] [address] [place] [address] CBCMP,CEA,FEST 04/06/2024 10:15 AM EST Office Visit [place] [facility] [address] [facility] [address] [place] [address] Georgi Butterfield MD [address] [place] [address] 6 MTH FU W/LABS, REV SCAN 04/13/2024 9:30 AM EST Office Visit Surgical Oncology - [facility] [address] [facility] [address] [place] [phone] Delvis Cheek MD 125 [facility] [address] [place] [phone] 1 YEAR F/U ADENOCARCINOMA OF THE CECUM 06/19/2024 10:30 AM EST Office Visit Orthopaedics- Les Valencia [address] [facility] [address] [place] [phone] Karly Bautista, PA [address] [facility] [address] [place] [address] annual visit from date of surgery May/Jul 2024 for bilateral TKA and right LIZZ with Karly. documented as of this encounter Visit Diagnoses Diagnosis Bilateral primary osteoarthritis of knee- Primary documented in this encounter Care Teams Gluten Settling Tender Relationship Specialty Start Date End Date Felicitas Monaco MD PCP - General Family Medicine 06/18/22 07/05/23 documented as of this encounter
--- OUTSIDE RECORDS SUMMARY | 2024-01-13 21:17 | XMS_ITS | Encounter Summary ---
Author Organization Jose Alejandro [facility]olinnea [facility] Address [address] [place] [address] Care Team Providers Care Pipe And Test Supervisor Name Role Phone Felicitas Monaco MD Primary Care Provider [phone] Reason for Referral * Surgical (Routine) - Closed Specialty Diagnoses / Procedures Referred By Rachid jimenez Referred To Contact Orthopedic Surgery Diagnoses Primary osteoarthritis of left knee Procedures PA ARTHRP KNE CONDYLE&PLATU MEDIAL&LAT COMPARTMENTS Maurice Panchal MD [facility] [address] [address] Maurice Panchal MD [address] [place] [address] Referral ID Status Reason Start Date Expiration Date V isits Requested Visits Authorized [id number] Closed Insurance 09/30/2022 09/30/2023 1 1 [place] [id number] M17.11 DATE [facility] Maurice Panchal MD, Orthopaedics [facility] [address] [address] Comments The patient can be scheduled with any member of the group, including the provider with the first available appointments. Encounter Details Date Type Department Care Team (Late st Contact Info) Description 09/30/2022 Orders Only Orthopaedics - [address] [place] [address] Maurice Panchal MD [address] [facility] 105 [place] [address] Primary osteoarthritis of left knee (Primary Dx) [...] Neurology - [facility] [place] [address] [facility] [address] [place] [phone] Martell Calderon MD 214 [facility] [address] [place] [address] TREMORS/ MEDICARE, FOR LIFE 03/28/2024 8:30 AM EDT Office Visit Primary Care - [address] [phone] Cheo Santoyo, [address] [place] [phone] AWV 04/06/2024 9:45 AM EST Lab [place] [facility] - [facility] [place] [address] [facility] [address] [place] [address] CBCMP,CEA,FEST 04/06/2024 10:15 AM EST Office Visit [place] [facility] - [facility] [place] [address] [facility] [address] [place] [address] Georgi Butterfield MD [address] [place] [address] 6 MTH FU W/LABS, REV SCAN 04/13/2024 9:30 AM EST Office Visit Surgical Oncology - [facility] [place] [address] [facility] [address] [place] [address] Delvis Cheek MD 125 [facility] [address] [place] [address] 1 YEAR F/U ADENOCARCINOMA OF THE CECUM 06/19/2024 10:30 AM EST Office Visit Orthopaedics- Les Valencia 615 [facility] [address] [place] [phone] Karly Bautista, BURT [address] [place] [address] annual visit from date of [...] leg documented in this encounter Care Teams Pipe And Test Supervisor Relationship Specialty Start Date End Date Felicitas Monaco MD PCP - General Family Medicine 06/18/22 07/05/23 documented as of this encounter
--- OUTSIDE RECORDS SUMMARY | 2024-01-13 21:17 | XMS_ITS | Encounter Summary ---
Author Organization [facility] Kit [facility] Address [address] [place] [address] Care Team Providers Care Human Resources Intern Name Role Phone Felicitas Monaco MD Primary Care Provider [phone] Encounter Details Date Type Department Care Team (Late st Contact Info) Description 08/31/2022 Orders Only [place] [facility] - [facility]. [address] [facility] [address] [place] [address] Georgi Butterfield MD [address] [place] [address] Iron deficiency anemia, unspecified iron [...] - [facility] [address] [facility] [address] [address] [place] [address] Martell Calderon MD [address] [facility] [address] [place], [place] [address] TREMORS/ MEDICARE, FOR LIFE 03/28/2024 8:30 AM EDT Office Visit Primary Care - [facility] [address] [place] [address] Cheo Santoyo, [address] [place] [address] AWV 04/06/2024 9:45 AM EST Lab [place] [facility] - [facility] [address] [facility] [address] [place] [address] CBCMP,CEA,FEST 04/06/2024 10:15 AM EST Office Visit [place] [facility] - [facility] [address] [facility] [address] [place] [address] Georgi Butterfield MD [address] [place], [place] [address] 6 MTH FU W/LABS, REV SCAN 04/13/2024 9:30 AM EST Office Visit Surgical Oncology - [facility] [address] [facility] [address] [place] [address] Delvis Cheek MD 125 [facility] [address] [place] [address] 1 YEAR F/U ADENOCARCINOMA OF THE CECUM 06/19/2024 10:30 AM EST Office Visit Orthopaedics- Adalberto Valencia [address] [facility] 100 [place] [address] Karly Bautista PA [address] [place] [address] annual visit from date of surgery May/Jul 2024 for bilateral TKA and right LIZZ with Karly. documented as of this encounter Results * Reticulocytes (10/05/2022 10:02 AM EDT) RBC 5.18 4.00 - 5.60 x10e6/mcL [facility] Retic Ct Pct 1.7 0.5 - 2.0 % [facility] Retic Ct Abs 0.0865 0.0235 - 0.1220 /mcL [facility] Comment: Test Performed at: [facility] [address] [place] [address] [place] [address] Blood BLOOD SPECIMEN / Unknown 10/05/2022 10:02 AM EDT 10/05/2022 9:25 PM EDT Georgi Butterfield MD HEMATOLOGY ORDERABL ES Performing Organization Address [facility] de Phone Number [facility] [address] [place] [address] * Ferritin (10/05/2022 10:02 AM EDT) Pathologist [facility] Ferritin 244.4 30.0 - 400.0 ng/mL [facility] Comment: Test Performed at: [facility] [address] [facility] [place] [address] Blood BLOOD SPECIMEN / Unknown 10/05/2022 10:02 AM EDT 10/05/2022 9:25 PM EDT Georgi Butterfield MD CHEMISTRY ORDERABLE S Performing Organization Address [facility] Co de Phone Number [facility] [address] [place] [address] * Iron and TIBC (10/05/2022 10:02 AM EDT) Pathologist [facility] Iron 119 59 - 158 mcg/dL [facility] UIBC 186.3 112.0 - 347.0 mcg/dL [facility] TIBC 306 250 - 450 mcg/dL [facility] Iron % Saturation 39 20 - 40 % [facility] Comment: Test Performed at: [facility] [address] [facility] [place] [address] Serum BLOOD SPECIMEN / Unknown 10/05/2022 10:02 AM EDT 10/05/2022 9:25 PM EDT Narrative [facility] - 10/05/2022 9:39 PM EDT Is Patient Fasting?->no No of Hours?->no Georgi Butterfield MD CHEMISTRY ORDERABLE S Performing Organization Address [facility] de Phone Number [facility] [address] [place] [address] * Soluble transferrin receptor (10/05/2022 10:02 AM EDT) [facility] Soluble Transferrin Recept 16.5 12.2 - 27.3 nmol/L [facility] Comment: Performed At: [facility] [address] [id number] Ajit Swift MD Ph:[phone] Test Performed at: [facility] [address] [place] [address] [place] [address] Blood BLOOD SPECIMEN / Unknown 10/05/2022 10:02 AM EDT 10/05/2022 9:25 PM EDT Georgi Butterfield MD HEMATOLOGY ORDERABL ES Performing Organization Address [facility] de Phone Number [facility] [address] [place] [address] * CBC with Auto Differential (10/05/2022 10:02 AM EDT) [facility] WBC 5.9 4.1 - 10.9 K/uL [facility] [...] - 10/05/2022 10:11 AM EDT Testing Location: [facility] Hematology and Oncology, [address] [place] [address], Georgi Butterfield MD HEMATOLOGY ORDERABL ES [facility] [address] [phone] documented in this encounter Visit Diagnoses Diagnosis Iron deficiency anemia, unspecified iron deficiency anemia type- Primary Carcinoma of ascending colon (HCC)- Primary Malignant neoplasm of ascending colon Iron deficiency anemia, unspecified iron deficiency anemia type Adenocarcinoma of cecum (HCC) Malignant neoplasm of intestine (HCC) Malignant neoplasm of intestinal tract, part unspecified documented in this encounter Care Teams Human Resources Intern Relationship Specialty Start Date End Date Felicitas Monaco MD PCP - General Family Medicine 06/18/22 07/05/23 documented as of this encounter
--- OUTSIDE RECORDS SUMMARY | 2024-01-13 21:17 | XMS_ITS | Encounter Summary ---
Author Organization Jose Alejandro Kit [facility] Address [address] [employer] [place] [address] Care Team Providers Care Category Analyst Name Role Phone Felicitas Monaco MD Primary Care Provider [phone] Reason for Visit * Reason Onset Date Comments Cancelled Appointment 07/27/2022 Encounter Details Date Type Department Care Team ([facility] Contact Info) Description 07/27/2022 [facility]phone [facility] H[facility] On[facility]. [address] [facility] [address] [place] [address] Georgi Butterfield MD [address] [place] [address] Cancelled Appointment Social History Tobacco [...] Visit Neurology - [facility] [address] [facility] [address] [place] [address] Martell Calderon MD [address] [facility] [address] [place] [address] TREMORS/ MEDICARE, FOR LIFE 03/28/2024 8:30 AM EDT Office Visit Primary Care - [facility] [address] [place] [phone] Cheo Santoyo DO [address] [place] [address] AWV 04/06/2024 9:45 AM EST Lab [place] [facility] - [facility] [address] [facility] [address] [place] [address] CBCMP,CEA,FEST 04/06/2024 10:15 AM EST Office Visit [place] [facility] - [facility] [address] [facility] [address] [place] [address] Georgi Butterfield MD 35[address] [facility] [address] [place] [address] 6 MTH FU W/LABS, REV SCAN 04/13/2024 9:30 AM EST Office Visit Surgical Oncology - [facility] [address] [facility] [address] [place] [address] Delvis Cheek MD 125 [facility] [address] [place] [address] 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 documented as of this encounter Visit Diagnoses Not on filedocumented in this encounter Care Teams Category Analyst Relationship Specialty Start Date End Date Felicitas Monaco MD PCP - General Family Medicine 06/18/22 07/05/23 documented as of this encounter
--- OUTSIDE RECORDS SUMMARY | 2024-01-13 21:17 | XMS_ITS | Encounter Summary ---
Author Organization Jose Alejandro Kit [facility] Address [address] [place] [address] Care Team Providers Care Health Specialist Name Role Phone Felicitas Monaco MD Primary Care Provider [phone] Reason for Visit * Reason Comments Injections Right knee Supartz i njection #2 of 3, BUY & BILL Encounter Details Date Type Department Care Team (Late st Contact Info) Description 10/20/2022 8:45 AM EDT Office Visit Orthopaedics - [address] [place] [address] Georgi Andersen PA [address] [place] [address] Primary osteoarthritis of right knee (Primary Dx) [...] Neurology - Maryan [address] Dr[address] [facility] [address] [place] [address] Martell Calderon MD 2[address] [facility] [address] [place], [place] [address] TREMORS/ MEDICARE, FOR LIFE 03/28/2024 8:30 AM EDT Office Visit Primary Care - [facility] [address] [place] [address] Cheo Santoyo DO [facility] [place] [address] AWV 04/06/2024 9:45 AM EST Lab [place] [facility] - [facility] [address] [facility] [address] [place] [address] CBCMP,CEA,FEST 04/06/2024 10:15 AM EST Office Visit [place] [facility] - [facility] [address] [facility] [address] [place] [address] Georgi Butterfield MD [address] [facility] [address] [place] [address] 6 MTH FU W/LABS, REV SCAN 04/13/2024 9:30 AM EST Office Visit Surgical Oncology - [facility] [address] [facility] [address] [place] [address] Delvis Cheek MD 125 [facility] 660 [place] [address] 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
--- OUTSIDE RECORDS SUMMARY | 2024-01-13 21:17 | XMS_ITS | Encounter Summary ---
Author Organization [facility] Kit [facility] Address [address] [place] [address] Care Team Providers Care Medical Review Coordinator Name Role Phone Felicitas Monaco MD Primary Care Provider [phone] Encounter Details Date Type Department Care Team (Late st Contact Info) Description 10/09/2022 Abstract Primary Care - [address] [place] [address] Felicitas Monaco MD [address] [place] [address] Social History Tobacco Use Types [...] Dr. [address] [place] [phone] Martell Calderon MD [address] [facility] [address] [address] [place] [address] TREMORS/ MEDICARE, FOR LIFE 03/28/2024 8:30 AM EDT Office Visit Primary Care - [address] [phone] Cheo Santoyo, DO [address] [place] [address] AWV 04/06/2024 9:45 AM EST Lab [place] [facility] - [facility] [address] [facility] [address] [place] [address] CBCMP,CEA,FEST 04/06/2024 10:15 AM EST Office Visit [place] [facility] - [facility] [address] [facility] [address] [place] [address] Georgi Butterfield MD 3510 [facility] [address] [place], [place] [address] 6 MTH FU W/LABS, REV SCAN 04/13/2024 9:30 AM EST Office Visit Surgical Oncology - [facility] [address] [facility] [address] [place] [address] Delvis Cheek MD 125 [facility] [place] [address] 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 documented as of this encounter Visit Diagnoses Not on filedocumented in this encounter Care Teams Medical Review Coordinator Relationship Specialty Start Date End Date Felicitas Monaco MD PCP - General Family Medicine 06/18/22 07/05/23 documented as of this encounter
--- OUTSIDE RECORDS SUMMARY | 2024-01-13 21:17 | XMS_ITS | Encounter Summary ---
Author Organization Jose Alejandro Kit [facility] Address [address] [place] [address] Care Team Providers Care Information Security Associate Name Role Phone Felicitas Monaco MD Primary Care Provider [phone] Encounter Details Date Type Department Care Team (Late st Contact Info) Description 07/02/2022 Abstract Primary Care - [address] [place] [address] Felicitas Monaco MD [address] [place] [address] Social History Tobacco Use Types [...] [address] Dr. [address] [place] [address] Martell Calderon MD 2144 [facility] [address] [place], [place] [address] TREMORS/ MEDICARE, FOR LIFE 03/28/2024 8:30 AM EDT Office Visit Primary Care - [facility] [address] [place] [address] Cheo Santoyo DO [address]12 [place] [address] AWV 04/06/2024 9:45 AM EST Lab [place] [facility] - [facility] [address] [facility] [address] [place] [address] CBCMP,CEA,FEST 04/06/2024 10:15 AM EST Office Visit [place] [facility] - [facility] [address] [facility] [address] [place] [address] Georgi Butterfield MD 3510 [facility] 17[address] [facility] 225 [place], [place] [address] 6 MTH FU W/LABS, REV SCAN 04/13/2024 9:30 AM EST Office Visit Surgical Oncology - [facility] [address] [facility] [address] [place] [address] Delvis Cheek MD 125 [facility] 660 [place] [address] 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 documented as of this encounter Visit Diagnoses Not on filedocumented in this encounter Care Teams Information Security Associate Relationship Specialty Start Date End Date Felicitas Monaco MD PCP - General Family Medicine 06/18/22 07/05/23 documented as of this encounter
--- OUTSIDE RECORDS SUMMARY | 2024-01-13 21:18 | XMS_ITS | Encounter Summary ---
Author Organization Jose Alejandro Kit [facility] Address [address] [place] [address] Care Team Providers Care Peoplesoft Administrator Name Role Phone Baljit Ozuna MD Primary Care Provider [phone] Encounter Details Date Type Department Care Team (Late st Contact Info) Description 04/13/2022 Orders Only [place] [facility] - [facility]. [address] [facility] [address] [place] [address] Georgi Butterfield MD [address] [place] [address] Social History Tobacco Use Types [...] Neurology - [address] [facility] [address] [place] [address] Martell Calderon MD [address] [facility] [address] [place] [address] TREMORS/ MEDICARE, FOR LIFE 03/28/2024 8:30 AM EDT Office Visit Primary Care - [address] [phone] Cheo Santoyo DO [address] [place] [address] AWV 04/06/2024 9:45 AM EST Lab [place] [facility] - [facility] 2084 [facility] [address] [place] [address] CBCMP,CEA,FEST 04/06/2024 10:15 AM EST Office Visit [place] [facility] - [facility] [address] [facility] [address] [place] [address] Georgi Butterfield MD [address] [place], [place] [phone] 6 MTH FU W/LABS, REV SCAN 04/13/2024 9:30 AM EST Office Visit Surgical Oncology - 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 [address] [place] [address] Karly Bautista PA [address] [place] [address] annual visit from date of surgery May/Jul 2024 for bilateral TKA and right LIZZ with Karly. documented as of this encounter Visit Diagnoses Not on filedocumented in this encounter Care Teams Peoplesoft Administrator Relationship Specialty Start Date End Date Baljit Ozuna MD PCP - General 03/12/22 06/17/22 documented as of this encounter
--- OUTSIDE RECORDS SUMMARY | 2024-01-13 21:18 | XMS_ITS | Encounter Summary ---
Author Organization Jose Ale[facility]andro [facility] Address [address] [place] [address] Care Team Providers Care [place] Neck Whipper Name Role Phone Baljit Ozuna MD Primary Care Provider [phone] Reason for Referral * Imaging (Routine) - Closed Specialty Diagnoses / Procedures Referred By Rachid jimenez Referred To Contact Radiology Diagnoses Right hip pain Procedures MRI HIP RIGHT W CONTRAST MRI HIP RIGHT W CONTRAST MRI HIP RIGHT W CONTRAST Georgi Andersen PA [address] [place] [address] Referral ID Status Reason Start Date Expiration Date Visits Re quested Visits Authorized [id number] Closed 04/21/2022 04/21/2023 1 1 * Eval and Treat (Routine) - Closed Specialty Diagnoses / Procedures Referred By Rachid jimenez Referred To Contact [employer] Medical Equipment Diagnoses Primary osteoarthritis of right knee Primary osteoarthritis of left knee Georgi Andersen PA [address] [place] [address] [employer] [address], [address] [place] [address] Referral ID Status Reason Start Date Expiration Date Visits Re quested Visits Authorized [id number] Closed [facility] [place]/21/2022 04/21/2023 1 1 Scheduling Instructions Please dispense and fit patient for bilateral medial community aide knee braces. Comments Patient Information Name: Martínez Toribio : 1955 Address: [address] [facility] [address] Insurance: Payor: MEDICARE / Plan: MEDICARE PART [...] Dr. [address] [place] [phone] Georgi Andersen PA [address] [facility] [address] [address] [place] [address] Primary osteoarthritis of right knee [...] a referral to DME for bilateral medial community aide OA braces. He is also requesting an [...] - [facility] [address] [facility] [address] [place] [address] Martell Calderon MD 2144 [facility] [address] [place] [address] TREMORS/ MEDICARE, FOR LIFE 03/28/2024 8:30 AM EDT Office Visit Primary Care - [address] [address] [place] [address] [place] [address] AWV 04/06/2024 9:45 AM EST Lab [place] [facility] - [facility] [address] [facility] [address] [place] [address] CBCMP,CEA,FEST 04/06/2024 10:15 AM EST Office Visit [place] [facility] - [facility] 20[address] [facility] [address] [place] [address] Georgi Butterfield MD [address] [place] [address] 6 MTH FU W/LABS, REV SCAN 04/13/2024 9:30 AM EST Office Visit Surgical Oncology - [facility] 5535 [facility] [address] [place] [address] Delvis Cheek MD 125 [facility] [address] [place] [address] 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 Small [id number] sagittal T1 fat-sat. Large field of view [...] after intraarticular injection of gadolinium contrast. Small [id number]-vm-[id number] sagittal T1 fat-sat.Large field of view coronal [...] 2. No fracture or AVN. Georgi [facility] ORDER[facility]LES documented in this encounter Visit Diagnoses Diagnosis Primary osteoarthritis of right knee- Primary Primary localized osteoarthrosis, lower leg Primary osteoarthritis of left knee Primary localized osteoarthrosis, lower leg Right hip pain Pain in joint, pelvic region and thigh Right hip pain Pain in joint, pelvic region and thigh documented in this encounter Care Teams [place] Neck Whipper Relationship Specialty Start Date End Date Baljit Ozuna MD PCP - General 03/12/22 06/17/22 documented as of this encounter
--- OUTSIDE RECORDS SUMMARY | 2024-01-13 21:18 | XMS_ITS | Encounter Summary ---
Author Organization Jose Ale[facility]andro [facility] Address [address] [place] [address] Care Team Providers Care Corrosion Control Fitter Name Role Phone Baljit Ozuna MD Primary Care Provider [phone] Reason for Visit * Reason Onset Date Comments Other 06/15/2022 Encounter Details Date Type Department Care Team (Late st Contact Info) Description 06/15/2022 Telephone Orthopaedics - [address] [place] [address], [address] [place] [address] Dave Lynne Jr., MD [address] [facility] 200 [place] [address] Other Social History Tobacco Use [...] Dr. [address] [place] [address] Martell Calderon MD [address] [facility] [address] [place] [address] TREMORS/ MEDICARE, FOR LIFE 03/28/2024 8:30 AM EDT Office Visit Primary Care - [facility] [address] [place] [address] Cheo Santoyo, DO 1112 [place] [address] AWV 04/06/2024 9:45 AM EST [facility] [place] [facility] - [facility] [place] [address] [facility] [address] [place] [address] CBCMP,CEA,FEST 04/06/2024 10:15 AM EST Office Visit [place] [facility] - [facility] [place] [address] [facility] [address] [place] [address] Georgi Butterfield MD 3510 [facility] [address] [place], [place] [phone] 6 MTH FU W/LABS, REV SCAN 04/13/2024 9:30 AM EST Office Visit Surgical Oncology - [facility] [place] [address] [facility] [address] [place] [address] Delvis Cheek MD 125 [facility] 660 [place] [address] 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 [address] [place] [address] Karly Bautista PA [address] [place] [address] annual visit from date of surgery May/Jul 2024 for bilateral TKA and right LIZZ with Karly. documented as of this encounter Visit Diagnoses Not on filedocumented in this encounter Care Teams Corrosion Control Fitter Relationship Specialty Start Date End Date Baljit Ozuna MD PCP - General 03/12/22 06/17/22 documented as of this encounter
--- OUTSIDE RECORDS SUMMARY | 2024-01-13 21:18 | XMS_ITS | Encounter Summary ---
Author Organization Jose Alejandro [facility]ja [facility] Address [address] [place] [address] Care Team Providers Care Steel Loader Name Role Phone Carter Santoyoony Moshe REYES Primary Care Provider [phone] Encounter Details Date Type Department Care Team (Late st Contact Info) Description 08/04/2021 [facility] Historical Encounter [facility] HEM[facility]OGY AMB HISTORICAL Georgi Butterfield MD [address] [place] [address] Social History Tobacco Use Types Packs/Day Years [...] 9:00 AM EDT [facility] [address] [facility] [address] [place] [address] Martell Calderon MD 214 [facility] [address] [place] [address] TREMORS/ MEDICARE, FOR LIFE 03/28/2024 8:30 AM EDT Office Visit Primary Care - [address] [address] [place] [address] [place] [address] AWV 04/06/2024 9:45 AM EST [facility] [place] [facility] - [facility] [place] 2084 [facility] [address] [place] [address] CBCMP,CEA,FEST 04/06/2024 10:15 AM EST Office Visit [place] [facility] - [facility] [place] 2084 [facility] [address] [place] [address] Georgi Butterfield MD [address] [place] [address] 6 MTH FU W/LABS, REV SCAN 04/13/2024 9:30 AM EST Office Visit Surgical Oncology - [facility] [address] [facility] [address] [place] [address] Delvis Cheek MD 125 [facility] 660 [place] [address] 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 documented as of this encounter Visit Diagnoses Not on filedocumented in this encounter Care Teams Steel Loader Relationship Specialty Start Date End Date Cheo Santoyo DO [address] [place] [phone] PCP - General Family Medicine 07/06/23 documented as of this encounter
--- OUTSIDE RECORDS SUMMARY | 2024-01-13 21:18 | XMS_ITS | Encounter Summary ---
Author Organization Jose Alejandro Pantoja [facility] Address [address] [place] [address] Care Team Providers Care Lumber Inspector Name Role Phone Cheo Santoyo Primary Care Provider [phone] Encounter Details Date Type Department Care Team (Late st Contact Info) Description 10/07/2021 Legacy Historical Encounter [facility] HISTORICAL CONVERSIONS [address] [place], [place] [id number] Dave Lynne Jr., MD [address] [place], [place] [phone] Social History Tobacco Use Types Packs/Day Years [...] Visit Neurology - [place] [facility] [address] [facility] [address] [place] [address] Martell Calderon MD 214 [facility] [address] [place] [address] TREMORS/ MEDICARE, FOR LIFE 03/28/2024 8:30 AM EDT Office Visit Primary Care - [address] [address] [place] [address] [place] [address] AWV 04/06/2024 9:45 AM EST Lab [place] [facility] - [place] [facility] 2084 [facility] [address] [place] [address] CBCMP,CEA,FEST 04/06/2024 10:15 AM EST Office Visit [place] [facility] - [place] [facility] 2084 [facility] [address] [place] [address] Georgi Butterfield MD 3510 [facility] [address] [place] [address] 6 MTH FU W/LABS, REV SCAN 04/13/2024 9:30 AM EST Office Visit Surgical Oncology - [place] [facility] [address] [facility] [address] [place] [address] Delvis Cheek MD 125 [facility] 660 [place] [address] 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 documented as of this encounter Visit Diagnoses Not on filedocumented in this encounter Care Teams Lumber Inspector Relationship Specialty Start Date End Date Cheo Santoyo DO [address] [place] [phone] PCP - General Family Medicine 07/06/23 documented as of this encounter
--- OUTSIDE RECORDS SUMMARY | 2024-01-13 21:18 | XMS_ITS | Encounter Summary ---
Author Organization Jose Alejandro Pantoja [facility] Address [address] [place] [address] Care Team Providers Care Registered Clinical Dietitian Name Role Phone Carter Santoyoony Moshe REYES Primary Care Provider [phone] Encounter Details Date Type Department Care Team (Late st Contact Info) Description 03/23/2022 [facility] Historical Encounter [facility] AMB HISTORICAL Georgi Butterfield MD [address] [place] [address] Social History Tobacco Use Types Packs/Day Years [...] Neurology - [facility] [address] [facility] [address] [place] [address] Martell Calderon MD 214 [facility] [address] [place] [address] TREMORS/ MEDICARE, FOR LIFE 03/28/2024 8:30 AM EDT Office Visit Primary Care - [address] [address] Cheo Santoyo DO 1112 [place] [address] AWV 04/06/2024 9:45 AM EST Lab [place] [facility] - [facility] [address] [facility] [address] [place] [address] CBCMP,CEA,FEST 04/06/2024 10:15 AM EST Office Visit [place] [facility] - [facility] [address] 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 documented as of this encounter Visit Diagnoses Not on filedocumented in this encounter Care Teams Registered Clinical Dietitian Relationship Specialty Start Date End Date Cheo Santoyo DO [address] [place] [phone] PCP - General Family Medicine 07/06/23 documented as of this encounter
--- OUTSIDE RECORDS SUMMARY | 2024-01-13 21:18 | XMS_ITS | Encounter Summary ---
Author Organization Jose Alejandro Pantoja [facility] Address [address] [place] [address] Care Team Providers Care Validation Leader Name Role Phone Cheo Santoyo Primary Care Provider [phone] Encounter Details Date Type Department Care Team (Late st Contact Info) Description 08/25/2021 Legacy Historical Encounter [facility] HISTORICAL CONVERSIONS [address] [place], [place] [id number] Cherie Pope, PA [address] [id number] Social History Tobacco Use Types Packs/Day Years [...] Visit Neurology - [facility] 2144 [facility] [address] [place] [address] Martell Calderon MD 2[address] [facility] [address] [place] [address] TREMORS/ MEDICARE, FOR LIFE 03/28/2024 8:30 AM EDT Office Visit Primary Care - [address] [address] Cheo Santoyo, 1112 [place] [address] AWV 04/06/2024 9:45 AM EST Lab [place] [facility] - [facility] 2084 [facility] [address] [place] [address] CBCMP,CEA,FEST 04/06/2024 10:15 AM EST Office Visit [place] [facility] - [facility] 2084 [facility] [address] [place] [address] Georgi Butterfield MD [address] [place] [address] 6 MTH FU W/LABS, REV SCAN 04/13/2024 9:30 AM EST Office Visit Surgical Oncology - [facility] 2083 [facility] [address] [place] [address] Delvis Cheek MD 125 [facility] 660 [place] [address] 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 [address] [place] [address] Karly Bautista, BURT 180 [facility] 301 [place] [address] annual visit from date of surgery May/Jul 2024 for bilateral TKA and right LIZZ with Karly. documented as of this encounter Visit Diagnoses Not on filedocumented in this encounter Care Teams Validation Leader Relationship Specialty Start Date End Date Cheo Santoyo DO [address] [place] [phone] PCP - General Family Medicine 07/06/23 documented as of this encounter
--- OUTSIDE RECORDS SUMMARY | 2024-01-13 21:18 | XMS_ITS | Encounter Summary ---
Author Organization Jose Alejandro [facility] Address [address] [place] [address] Care Team Providers Care Furniture Servicer Name Role Phone Baljit Ozuna MD Primary Care Provider [phone] Reason for Referral * Other (Routine) - Closed Specialty Diagnoses / Procedures Referred By Rachid jimenez Referred To Contact Diagnoses Primary osteoarthritis of left knee Primary osteoarthritis of right knee Procedures OR ARTHROCENTESIS ASPIR&/INJ MAJOR JT/BURSA W/O Georgi Andresen PA [address] [place] [address] Referral ID Status Reason Start Date Expiration Date Visits Re quested Visits Authorized [id number] Closed 03/31/2022 03/31/2023 1 1 Reason for Visit * Reason Comments Injections Bilateral Supartz #2 Encounter Details Date Type Department Care Team (Late st Contact Info) Description 03/31/2022 8:30 AM EDT Nurse Only Orthopaedics - [address] [place] [phone] Georgi Andersen PA [address] [place] [address] Primary osteoarthritis of left knee (Primary Dx); [...] Neurology - [facility] 2[address] [facility] [address] [place] [address] Martell Calderon MD 2144 [facility] [address] [place] [address] TREMORS/ MEDICARE, FOR LIFE 03/28/2024 8:30 AM EDT Office Visit Primary Care - [facility] [address] [place] [phone] Cheo Santoyo DO 1112 [place] [address] AWV 04/06/2024 9:45 AM EST Lab [place] [facility] - [facility] 2084 [facility] [address] [place] [address] CBCMP,CEA,FEST 04/06/2024 10:15 AM EST Office Visit [place] [facility] - [facility] 2084 [facility] [address] [place] [address] Georgi Butterfield MD 3510 [facility] [address] [place] [address] 6 MTH FU W/LABS, REV SCAN 04/13/2024 9:30 AM EST Office Visit Surgical Oncology - [facility] 2084 [facility] [address] [place] [address] Delvis Cheek MD 125 [facility] [address] [place] [address] 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
--- OUTSIDE RECORDS SUMMARY | 2024-01-13 21:18 | XMS_ITS | Encounter Summary ---
Author Organization Jose Alejandro [facility]olinnea [facility] Address [address] [place] [address] Care Team Providers Care Caser Up Name Role Phone Unavailable Primary Care Provider Unavailabl e Encounter Details Date Type Department Care Team (Late st Contact Info) Description 10/02/2021 1:34 PM EDT - 10/02/2021 11:59 PM EDT Hospital Encounter [facility] HISTORICAL CONVERSIONS [address] [place], [place] [phone] Georgi Andersen, PA [address] [place] [address] Social History Tobacco Use Types Packs/Day Years [...] Visit Neurology - [address] 2144 [facility] [address] [place] [address] Martell Calderon MD 2144 [facility] [address] [place] [address] TREMORS/ MEDICARE, FOR LIFE 03/28/2024 8:30 AM EDT Office Visit Primary Care - [address] [phone] Cheo Santoyo, DO 1112 [place] [address] AWV 04/06/2024 9:45 AM EST Lab [place] [facility] - [facility] 2084 [facility] [address] [place] [address] CBCMP,CEA,FEST 04/06/2024 10:15 AM EST Office Visit [place] [facility] - [facility] 20[address] [facility] [address] [place] [address] Georgi Butterfield MD 3510 [facility] 17N [facility] 225 [place], [place] [phone] 6 MTH FU W/LABS, REV SCAN 04/13/2024 9:30 AM EST Office Visit Surgical Oncology - [facility] 20[address] [facility] [address] [place] [address] Delvis Cheek MD 125 [facility] [address] [place] [address] 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
--- OUTSIDE RECORDS SUMMARY | 2024-01-13 21:18 | XMS_ITS | Encounter Summary ---
Author Organization Jose Alejandro [facility]olinnea [facility] Address [address] [place] [address] Care Team Providers Care Crushing Machine Operator Name Role Phone Baljit Ozuna MD Primary Care Provider [phone] Reason for Referral * Imaging (Routine) - Closed Specialty Diagnoses / Procedures Referred By Rachid jimenez Referred To Contact Radiology Diagnoses Right hip pain Procedures MRI HIP RIGHT W CONTRAST MRI HIP RIGHT W CONTRAST MRI HIP RIGHT W CONTRAST Georgi Andersen PA [address] [facility] [place] [address] [place] [address] Referral ID Status Reason Start Date Expiration Date Visits Re quested Visits Authorized [id number] Closed 04/21/2022 04/21/2023 1 1 Reason for Visit * Auth/Cert (Routine) Specialty Diagnoses / Procedures Referred By Rachid jimenez Referred To Contact [facility] [address] [place] [address] [address] Referral ID Status Reason Start Date Expiration Date Visits Re quested Visits Authorized [id number] 1 1 Encounter Details Date Type Department Care Team (Latest Contact Info) Description 04/29/2022 12:39 PM EST - 04/29/2022 11:59 PM EST Hospital Encounter [facility] MRI [address] [place] [address] Right hip pain Discharge Disposition: Home or [...] Office Visit Neurology - [address] Dr[address] [place] [address] Martell Calderon MD 5 [facility] [address] [place] [address] TREMORS/ MEDICARE, FOR LIFE 03/28/2024 8:30 AM EDT Office Visit Primary Care - [facility] [address] [place] [address] Cheo Santoyo, DO 1112 [place] [address] AWV 04/06/2024 9:45 AM EST Lab [place] [facility] - [facility] [place] 2084 [facility] [address] [place] [address] CBCMP,CEA,FEST 04/06/2024 10:15 AM EST Office Visit [place] [facility] - [facility] [place] 2084 [facility] [address] [place] [address] Georgi Butterfield MD [address] [place] [address] 6 MTH FU W/LABS, REV SCAN 04/13/2024 9:30 AM EST Office Visit Surgical Oncology - [facility] [place] 2084 [facility] [address] [place] [address] Delvis Cheek MD 125 [facility] 660 [place] [address] 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 Small [id number] sagittal T1 fat-sat. Large field of view [...] after intraarticular injection of gadolinium contrast. Small [id number] sagittal T1 fat-sat.Large field of view coronal [...] thigh documented in this encounter Care Teams Crushing Machine Operator Relationship Specialty Start Date End Date Baljit Ozuna MD PCP - General 03/12/22 06/17/22 documented as of this encounter
--- OUTSIDE RECORDS SUMMARY | 2024-01-13 21:18 | XMS_ITS | Encounter Summary ---
Author Organization Jose Alejandro Kit [facility] Address [address] [place] [address] Care Team Providers Care Slackline Operator Name Role Phone Felicitas Monaco MD Primary Care Provider [phone] Encounter Details Date Type Department Care Team (Late st Contact Info) Description 06/15/2022 [facility] - [facility]. [address] [facility] [address] [place] [address] Georgi Butterfield MD [address] [place] [address] Social History Tobacco Use Types [...] Dr. [address] [place] [address] Martell Calderon MD 2144 [facility] [address] [place] [address] TREMORS/ MEDICARE, FOR LIFE 03/28/2024 8:30 AM EDT Office Visit Primary Care - [address] [address] Cheo Santoyo DO 1112 [place] [address] AWV 04/06/2024 9:45 AM EST Lab [place] [facility] - [facility] 20[address] [facility] [address] [place] [address] CBCMP,CEA,FEST 04/06/2024 10:15 AM EST Office Visit [place] [facility] - [facility] [address] [facility] [address] [place] [address] Georgi Butterfield MD [address] [place] [address] 6 MTH FU W/LABS, REV SCAN 04/13/2024 9:30 AM EST Office Visit Surgical Oncology - [facility] [address] [facility] [address] [place] [address] Delvis Cheek MD 125 [facility] [address] [place] [address] 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
--- OUTSIDE RECORDS SUMMARY | 2024-01-13 21:18 | XMS_ITS | Encounter Summary ---
Author Organization Jose Alejandro Kit [facility] Address [address] [place] [address] Care Team Providers Care Multimedia Journalist Name Role Phone Baljit Ozuna MD Primary Care Provider [phone] Reason for Visit * Reason Onset Date Comments Other 05/08/2022 Encounter Details Date Type Department Care Team (Late Contact Info) Description 05/08/2022 Telephone Primary Care - [address] - [address] [place] [address] Baljit Ozuna MD [address] [facility] [address] [place] [address] Other Social History Tobacco Use [...] Dr. [address] [place] [address] Martell Calderon MD 2144 [facility] [address] [place] [address] TREMORS/ MEDICARE, FOR LIFE 03/28/2024 8:30 AM EDT Office Visit Primary Care - [facility] [address] [place] [address] Cheo Santoyo DO [address] [place] [address] AWV 04/06/2024 9:45 AM EST [facility] - [facility] [address] [facility] [address] [place] [address] CBCMP,CEA,FEST 04/06/2024 10:15 AM EST Office Visit [facility] - [facility] [address] [facility] [address] [place] [address] Georgi Butterfield MD [address] [place] [address] 6 MTH FU W/LABS, REV SCAN 04/13/2024 9:30 AM EST Office Visit Surgical Oncology - [facility] [address] [facility] [address] [place] [address] Delvis Cheek MD 125 [facility] [place] [address] 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 [address] [place] [address] Karly Bautista PA [address] [place] [address] annual visit from date of surgery May/Jul 2024 for bilateral TKA and right LIZZ with Karly. documented as of this encounter Visit Diagnoses Not on filedocumented in this encounter Care Teams Multimedia Journalist Relationship Specialty Start Date End Date Baljit Ozuna MD PCP - General 03/12/22 06/17/22 documented as of this encounter
--- OUTSIDE RECORDS SUMMARY | 2024-01-13 21:18 | XMS_ITS | Encounter Summary ---
Author Organization Jose Alejandro Raymundolinnea [facility] Address [address] [place] [address] Care Team Providers Care Svp [employer] Name Role Phone Baljit Ozuna MD Primary Care Provider [phone] Reason for Referral * Eval and Treat (Routine) - Closed Specialty Diagnoses / Procedures Referred By Contosman jimenez Referred To Contact Physical Therapy Diagnoses Primary osteoarthritis of right hip Tear of acetabular labrum, right, initial encounter Dave Lynne Jr., MD [address] [facility] [address] [place] [address] PT/OT, [facility] PT /Davin Rivera [address] [facility], [address] [place] [address] Referral ID Status Reason Start Date Expiration Date V isits Requested Visits Authorized [id number] Closed Specialty Services Required 05/12/2022 11/08/2022 1 1 Scheduling Instructions Evaluate and treat for right hip pain. 2-3 times a week for 6 weeks. ROM. STRENGTH. MODALITIES. [facility] [address] [facility] [address] [facility] [address] Question Answer Reason For External [...] MD [address] [place] [address] Martinez Guthrie MD [address] [facility] [address] [place] [phone] Referral ID Status Reason Start Date Expiration Date V isits Requested Visits Authorized [id number] Closed Specialty Services Required 05/12/2022 05/12/2023 1 1 Scheduling Instructions Right hip IA injection Martinez Guthrie MD[facility] - [address] [facility] [address] [place] [address] Question Answer My clinical question is: right hip IA injection Comments The patient can be scheduled with any member of the group, including the provider with the first available appointments. Reason for Visit * Reason Comments Follow-up Right hip mri follow [place] Encounter Details Date Type Department Care Team (Late st Contact Info) Description 05/12/2022 9:35 AM EST Office Visit Orthopaedics - Maryan [address]sen Dr. [address] [place] [address] Dave Lynne Jr., MD [address] [place] [address] Primary osteoarthritis of right hip (Primary Dx); [...] PATIENT CC: Follow-up (Right hip mri follow [place]) HPI: Martínez Toribio is a 67 y.o. year old male who presents for evaluation of after undergoing a righthip mri at [place] to evaluate for internal derangements. Recently finished [...] Impingement Mildly Positive Hip Scouring Mildly Positive Lfiolz-4-netfxnrm Negative Extension ER Negative KATLYN Test Negative [...] Sensation intact light touch distally Radiology:mri at [place] EXAMINATION: MRI arthrogram right hip DATE: 04/29/22 INDICATION: Right hip pain. COMPARISON: None. TECHNIQUE: Fat saturated T1, T2 images in the axial, coronal, oblique axial and oblique coronal planes were obtained of the RIGHT hip after intra articular injection of gadolinium contrast. Small jzblr-ck-yiet sagittal T1 fat-sat. Large field of view [...] of right hip M16.11 Ambulatory referral to Pending sale to [facility] 2. Tear of acetabular labrum, right, initial encounter S73.191A Ambulatory referral to Pending sale to [facility] Treatment Plan: Patient's issue with the right [...] Placed This Encounter Procedures Ambulatory referral to Pending sale to [facility] Follow-up: Return in about 6 weeks (around [...] Visit Neurology - [facility] [address] [facility] [address] [place] [address] Martell Calderon MD 2144 [facility] [address] [place] [address] TREMORS/ MEDICARE, FOR LIFE 03/28/2024 8:30 AM EDT Office Visit Primary Care - [address] [address] Cheo Santoyo DO [address] [place] [address] AWV 04/06/2024 9:45 AM EST Lab [facility] - [facility] [address] [facility] [address] [place] [address] CBCMP,CEA,FEST 04/06/2024 10:15 AM EST Office Visit [facility] - [facility] [address] [facility] [address] [place] [address] Georgi Butterfield MD [address] [place] [address] 6 MTH FU W/LABS, REV SCAN 04/13/2024 9:30 AM EST Office Visit Surgical Oncology - [facility] [address] [facility] [address] [place] [address] Delvis Cheek MD 125 [facility] 660 [place] [address] 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 Scheduled Referrals Name Type Priority Associated Diagnoses Orde r Schedule Ambulatory referral to Neurosurgery Outpatient Referral Routine Primary osteoarthritis of right hip Tear of acetabular labrum, right, initial encounter Ordered: 05/12/2022 [facility] Physical Therapy - [address] Outpatient Referral Routine Primary osteoarthritis of right hip Tear of acetabular labrum, right, initial encounter Ordered: 05/12/2022 documented as of this encounter Visit Diagnoses Diagnosis Primary osteoarthritis of right hip- Primary Primary localized osteoarthrosis, pelvic region and thigh Tear of acetabular labrum, right, initial encounter documented in this encounter Care Teams [employer] Relationship Specialty Start Date End Date Baljit Ozuna MD PCP - General 03/12/22 06/17/22 documented as of this encounter
--- OUTSIDE RECORDS SUMMARY | 2024-01-13 21:18 | XMS_ITS | Encounter Summary ---
Author Organization Jose Alejandro Ray[facility]olinnea [facility] Address [address] [employer] [place] [address] Care Team Providers Care Artificial Flower Maker Name Role Phone Unavailable Primary Care Provider Unavailabl e Encounter Details Date Type Department Care Team (Late st Contact Info) Description 10/03/2021 6:07 PM EDT - 10/03/2021 11:59 PM EDT Hospital Encounter [facility] HISTORICAL CONVERSIONS [address] [place], [place] [phone] Georgi Andersen, PA [address] [place] [address] Social History Tobacco Use Types Packs/Day Years [...] Visit Neurology - [address] [facility] [address] [place] [address] Martell Calderon MD 2144 [facility] [address] [place] [address] TREMORS/ MEDICARE, FOR LIFE 03/28/2024 8:30 AM EDT Office Visit Primary Care - [address] [phone] Cheo Santoyo, DO 11[address] [place] [address] AWV 04/06/2024 9:45 AM EST [facility] - [facility] [address] [facility] [address] [place] [address] CBCMP,CEA,FEST 04/06/2024 10:15 AM EST Office Visit [facility] - [facility] 20[address] [facility] [address] [place] [address] Georgi Butterfield MD 3510 [facility] 17[address] [facility] 225 [place], [place] [address] 6 MTH FU W/LABS, REV SCAN 04/13/2024 9:30 AM EST Office Visit Surgical Oncology - [facility] 20[address] [facility] [address] [place] [address] Delvis Cheek MD 125 [facility] [address] [place] [address] 1 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
--- OUTSIDE RECORDS SUMMARY | 2024-01-13 21:18 | XMS_ITS | Encounter Summary ---
Author Organization Jose Alejandro Raymundolinnea [facility] Address [address] [place] [address] Care Team Providers Care Edge Burnisher Uppers Name Role Phone Baljit Ozuna MD Primary Care Provider [phone] Reason for Referral * Imaging (Routine) - Closed Specialty Diagnoses / Procedures Referred By Rachid jimenez Referred To Contact Radiology Diagnoses Right hip pain Procedures IR INJ ARTHROGRAM HIP RIGHT Georgi Andersen PA [address] [facility] [address] [place] [address] Referral ID Status Reason Start Date Expiration Date Visits Re quested Visits Authorized [id number] Closed 04/21/2022 04/21/2023 1 1 Reason for Visit * Auth/Cert (Routine) Specialty Diagnoses / Procedures Referred By Rachid jimenez Referred To Contact [facility] [address] [place] [address] [address] Referral ID Status Reason Start Date Expiration Date Visits Re quested Visits Authorized [id number] 1 1 Encounter Details Date Type Department Care Team (Latest Contact Info) Description 04/29/2022 12:30 PM EST - 04/29/2022 12:38 PM EST Hospital Encounter [facility] Inter[facility]iology [address] [place] [address] Midlevel, [facility] Right hip pain Discharge [...] Office Visit Neurology - Maryan [address]sen Dr. [address] [place] [address] Martell Calderon MD 5 [facility] [address] [place] [address] TREMORS/ MEDICARE, FOR LIFE 03/28/2024 8:30 AM EDT Office Visit Primary Care - [facility] [address] [place] [address] Cheo Santoyo, DO 1112 [place] [address] AWV 04/06/2024 9:45 AM EST Lab [facility] - [facility] 2084 [facility] [address] [place] [address] CBCMP,CEA,FEST 04/06/2024 10:15 AM EST Office Visit [facility] - [facility] 2084 [facility] [address] [place] [address] Georgi Butterfield MD [address] [place] [address] 6 MTH FU W/LABS, REV SCAN 04/13/2024 9:30 AM EST Office Visit Surgical Oncology - [facility] 2084 [facility] [address] [place] [address] Delvis Cheek MD 125 [facility] 660 [place] [address] 1 YEAR F/U ADENOCARCINOMA OF THE CECUM 06/19/2024 10:30 AM EST Office Visit Orthopaedics- Les Valencia [address] [facility] [address] 100 [place] [address] Karly Bautista PA [address] [place] [address] annual visit from date [...] MR Arthrogram PROCEDURE PERFORMED BY: Georgi Santoyo [facility] SUPERVISING PHYSICIAN: Dr. Potts TECHNIQUE AND [...] mLs documented in this encounter Care Teams Edge Burnisher Uppers Relationship Specialty Start Date End Date Baljit Ozuna MD PCP - General 03/12/22 06/17/22 documented as of this encounter
--- OUTSIDE RECORDS SUMMARY | 2024-01-13 21:18 | XMS_ITS | Encounter Summary ---
Author Organization Jose Alejandro Pantoja [facility] Address [address] [place] [address] Care Team Providers Care Barber Shop Operator Name Role Phone Baljit Ozuna MD Primary Care Provider [phone] Reason for Visit * Reason Comments Follow-up Colon Cancer f/u Encounter Details Date Type Department Care Team (Latest Contact Info) Description 04/16/2022 9:45 AM EST Office Visit Surgical Oncology - [facility] [address] [facility] [address] [place] [address] Delvis Cheek MD [address] [place] [address] Adenocarcinoma of cecum (HCC) (Primary Dx); [...] Dr. [address] [place] [address] Martell Calderon MD 2144 [facility] [address] [place] [address] TREMORS/ MEDICARE, FOR LIFE 03/28/2024 8:30 AM EDT Office Visit Primary Care - [facility] [address] [place] [phone] [place] [address] [place] [phone] AWV 04/06/2024 9:45 AM EST Lab [facility] - [facility] [address] [facility] [address] [place] [address] CBCMP,CEA,FEST 04/06/2024 10:15 AM EST Office Visit [facility] - [facility] [address] [facility] [address] [place] [address] Georgi Butterfield MD [address] [place] [address] 6 MTH FU W/LABS, REV SCAN 04/13/2024 9:30 AM EST Office Visit Surgical Oncology - [facility] [address] [facility] [address] [place] [address] Delvis Cheek MD 125 [facility] 660 [place] [address] 1 YEAR F/U ADENOCARCINOMA OF THE CECUM 06/19/2024 10:30 AM EST Office Visit Orthopaedics- Les Valencia [address] [facility] [address] [place] [address] Karly Bautista PA [address] [place] [address] annual visit from date of [...] type documented in this encounter Care Teams Barber Shop Operator Relationship Specialty Start Date End Date Baljit Ozuna MD PCP - General 03/12/22 06/17/22 documented as of this encounter
--- OUTSIDE RECORDS SUMMARY | 2024-01-13 21:18 | XMS_ITS | Encounter Summary ---
Author Organization Jose Alejandro liriano [facility] Address [address] [place] [address] Care Team Providers Care Vice President Safety Name Role Phone Unavailable Primary Care Provider Unavailabl e Encounter Details Date Type Department Care Team (Late st Contact Info) Description 11/19/2021 Orders Only [facility] Quality Admin [address] [place], [place] [address] Rs Automatic Reconciliation, MD sara Social History [...] [facility] [place] [address] [facility] [address] [place] [address] Martell Calderon MD 2145 [facility] [address] [place] [address] TREMORS/ MEDICARE, FOR LIFE 03/28/2024 8:30 AM EDT Office Visit Primary Care - [address] [address] Cheo Santoyo DO [address] [place] [address] AWV 04/06/2024 9:45 AM EST Lab [place] [facility] - [facility] [address] [facility] [address] [place] [address] CBCMP,CEA,FEST 04/06/2024 10:15 AM EST Office Visit [place] - [facility] [address] [facility] [address] [place] [address] Georgi Butterfield MD [address] [place] [address] 6 MTH FU W/LABS, REV SCAN 04/13/2024 9:30 AM EST Office Visit Surgical Oncology - [facility] [address] [facility] [address] [place] [address] Delvis Cheek MD 125 [facility] 660 [place] [address] 1 YEAR F/U ADENOCARCINOMA OF THE CECUM 06/19/2024 10:30 AM EST Office Visit Orthopaedics- Adalberto Valencia 615 [facility] [address] [place] [address] Karly Bautista, PA [address] [place] [address] annual visit from date of surgery May/Jul 2024 for bilateral TKA and right LIZZ with Karly. documented as of this encounter Visit Diagnoses Not on filedocumented in this encounter
--- OUTSIDE RECORDS SUMMARY | 2024-01-13 21:18 | XMS_ITS | Encounter Summary ---
Author Organization Jose Alejandro Pantoja [facility] Address [address] [place] [address] Care Team Providers Care Senior It Recruiter Name Role Phone YarelisCheo friend Moshe REYES Primary Care Provider [phone] Encounter Details Date Type Department Care Team [...] Neurology - [facility] [address] [facility] [address] [place] [address] Martell Calderon MD [address] [facility] [address] [place] [address] TREMORS/ MEDICARE, FOR LIFE 03/28/2024 8:30 AM EDT Office Visit Primary Care - [address] [phone] Cheo Santoyo, [address] [address] AWV 04/06/2024 9:45 AM EST Lab [place] [facility] - [facility] 20[address] [facility] [address] [place] [address] CBCMP,CEA,FEST 04/06/2024 10:15 AM EST Office Visit [place] [facility] - [facility] 20[address] [facility] [address] [place] [address] Georgi Butterfield MD [address] [place] [address] 6 MTH FU W/LABS, REV SCAN 04/13/2024 9:30 AM EST Office Visit Surgical Oncology - [facility] [address] [facility] [address] [place] [address] Delvis Cheek MD 125 [facility] 660 [place] [address] 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 [address] [place] [address] Karly Bautista, BURT 180 [facility] [address] [place] [address] annual visit from date of surgery May/Jul 2024 for bilateral TKA and right LIZZ with Karly. documented as of this encounter Visit Diagnoses Not on filedocumented in this encounter Care Teams Senior It Recruiter Relationship Specialty Start Date End Date Cheo Santoyo DO [address] [place] [phone] PCP - General Family Medicine 07/06/23 documented as of this encounter
--- OUTSIDE RECORDS SUMMARY | 2024-01-13 21:18 | XMS_ITS | Encounter Summary ---
Author Organization Jose Alejandro Kit ShowUhowmarysol [facility] Address [address] [facility] [place] [address] Care Team Providers Care Last Dipper Name Role Phone Felicitas Monaco MD Primary Care Provider [phone] Encounter Details Date Type Department Care Team (Late st Contact Info) Description 06/10/2022 Abstract [place] [facility] - [facility]. [address] [facility] [address] [place] [address] Georgi Butterfield MD [address] [place] [address] Social History Tobacco Use Types [...] Dr. [address] [place] [address] Martell Calderon MD 2144 [facility] [address] [place] [address] TREMORS/ MEDICARE, FOR LIFE 03/28/2024 8:30 AM EDT Office Visit Primary Care - [address] [address] Cheo Santoyo DO 1112 [place] [phone] AWV 04/06/2024 9:45 AM EST Lab [place] [facility] - [facility] 2084 [facility] [address] [place] [address] CBCMP,CEA,FEST 04/06/2024 10:15 AM EST Office Visit [place] [facility] - [facility] 20[address] [facility] [address] [place] [address] Georgi Butterfield MD [address] [place] [address] 6 MTH FU W/LABS, REV SCAN 04/13/2024 9:30 AM EST Office Visit Surgical Oncology - [facility] [address] [facility] [address] [place] [address] Delvis Cheek MD 125 [facility] [address] [place] [address] 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 [address] [place] [address] Karly Bautista PA [address] [place] [address] annual visit from date of surgery May/Jul 2024 for bilateral TKA and right LIZZ with Karly. documented as of this encounter Visit Diagnoses Not on filedocumented in this encounter Care Teams Last Dipper Relationship Specialty Start Date End Date Felicitas Monaco MD PCP - General Family Medicine 06/18/22 07/05/23 documented as of this encounter
--- OUTSIDE RECORDS SUMMARY | 2024-01-13 21:18 | XMS_ITS | Encounter Summary ---
Author Organization Jose Alejandro [facility]olinnea [facility] Address [address] [place] [address] Care Team Providers Care Machine Operator Replanter Name Role Phone Unavailable Primary Care Provider Unavailabl e Encounter Details Date Type Department Care Team (Late st Contact Info) Description 10/13/2021 10:30 AM EDT - 10/13/2021 1:05 PM EDT Hospital Encounter [facility] HISTORICAL CONVERSIONS [address] [place], [place] [id number] Yola Lynne Jr., MD 7743 [facility] [address] [place] [address] Social History Tobacco Use Types Packs/Day Years Used Date Smoking Tobacco: Never Assessed Sex and Gender Information Value Date Recorded Sex Assigned at Not on file Gender Identity Not on file Sexual Orientation Not on file documented as of this encounter Discharge Summaries * Georgi Andersen PA - 10/13/2021 11:36 AM EDT Images from the original note were not included. Inpatient Patient Summary [facility] Ambulatory Surgery & Pain Management ? [address] [place], [place] [id number] Patient Discharge Instructions Name: TESS COLEMAN Current Date: 10/13/2021 11:36:01 : 1955 FIN: [id number] Patient Address: [address] [facility] [address] Patient Primary Care Provider: Name: NADIA COLMENARES [...] are reflected below: New Medications [id number] [place], [address] [place], [place] [id number], [phone] HYDROcodone-acetaminophen ([employer] 325 mg-7.5 mg oral tablet) 1-2 tabs Oral (given by mouth) every 4 hours as needed severe pain (8-10) for 5 Days. Refills: 0. Last Dose: Medications That Were Updated - Follow Current Instructions [facility], [address] [place] [address] [address] [place], [place] [id number], [phone] Current aspirin (aspirin 81 mg oral delayed [...] a day (in the morning). Last Dose: [facility] would like to thank you for allowing us to assist you with your healthcare needs. The following includes patient education materials and information regarding your injury/illness. TESS COLEMAN has been given the following list of follow-up instructions, prescriptions, and patient education materials: Follow-up Instructions: With: Address: When: YOLA LYNNE [address], [address] [place], [place] [id number] [employer] (1) In 2 weeks Comments: Call Dinorah [phone] for appointment day and time. With: Address: When: NADIA Gracia [facility], [address] [place] [address] Business (1) It is important [...] times a day as needed indigestion. HYDROcodone-acetaminophen ([employer] 325 mg-7.5 mg oral tablet) 1-2 tabs [...] signs, call to get immediate medical attention! [facility] allows you to manage your health, view your test results, and retrieve your discharge documents from your hospital stay securely and conveniently from your computer. To begin the enrollment process, visit [email or web address]. Click on ???Sign up now?? under [facility]. * Georgi Andersen PA - 10/13/2021 11:36 AM EDT Inpatient Clinical Summary [facility] Post-Acute Care Transfer Instructions PERSON INFORMATION Name: TESS COLEMAN FIN#: [id number] PHYSICIANS Admitting Physician: TOM LYNNE Attending Physician: TOM LYNNE PCP: NADIA COLMENARES Discharge Diagnosis: Complex tear of medial meniscus of left knee Comment: PATIENT EDUCATION INFORMATION Instructions: Medication Leaflets: Follow-up: With: Address: When: YOLA LYNNE [address], [address] [place], [place] [id number] Business (1) In 2 weeks Comments: Call Dinorah [phone] for appointment day and time. With: Address: When: NADIA COLMENARES [address] [facility], [address] [place] [address] Business (1) MEDICATION LIST Medication Reconciliation at Discharge: New Medications [id number] [place], [address] [place] [id number], [phone] HYDROcodone-acetaminophen ([employer] 325 mg-7.5 mg oral tablet) 1-2 tabs Oral (given by mouth) every 4 hours as needed severe pain (8-10) for 5 Days. Refills: 0. Last Dose: Medications That Were Updated - Follow Current Instructions [facility], [address] [facility] [address] [place], [place] [id number], [phone] Current aspirin (aspirin 81 mg oral delayed [...] times a day as needed indigestion. HYDROcodone-acetaminophen ([employer] 325 mg-7.5 mg oral tablet) 1-2 tabs [...] Neurology - [facility] 2[address] [facility] [address] [place] [phone] Martell Calderon MD 2144 [facility] [address] [place] [address] TREMORS/ MEDICARE, FOR LIFE 03/28/2024 8:30 AM EDT Office Visit Primary Care - [address] [address] Cheo Santoyo [address] [phone] AWV 04/06/2024 9:45 AM EST Lab [facility] - [facility] 2084 [facility] [address] [place] [address] CBCMP,CEA,FEST 04/06/2024 10:15 AM EST Office Visit [facility] - [facility] 20[address] [facility] [address] [place] [address] Georgi Butterfield MD [address] [place] [address] 6 MTH FU W/LABS, REV SCAN 04/13/2024 9:30 AM EST Office Visit Surgical Oncology - [facility] 2084 [facility] [address] [place] [address] Delvis Cheek MD 125 [facility] [address] [place] [address] 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
--- OUTSIDE RECORDS SUMMARY | 2024-01-13 21:18 | XMS_ITS | Encounter Summary ---
Author Organization Jose Alejandro Kit [facility] Address [address] [place] [address] Care Team Providers Care Work Force Advisor Name Role Phone Baljit Ozuna MD Primary Care Provider [phone] Reason for Visit * Treatment Plan and Therapy Plan (Routine) - Closed Specialty Diagnoses / Procedures Referred By Contac t Referred To Contact Diagnoses Iron deficiency anemia, unspecified iron deficiency anemia type Georgi Butterfield MD [address] [place] [address] [facility] Un Infusion Therapy 8950 [facility] 100 [place] [address] Referral ID Status Reason Start Date Expiration Date Visits Re quested Visits Authorized [id number] Closed 04/13/2022 04/13/2023 1 2 Encounter Details Date Type Department Care Team (Latest Contact Info) Description 04/20/2022 1:33 PM EST - 04/20/2022 11:59 PM [facility] Hospital Encounter [facility] INFUSION THERAPY 8950 [facility] [address] [place] [address] Iron deficiency anemia, unspecified iron [...] - [facility] 2[address] [facility] [address] [place] [phone] Martell Calderon MD 2145 [facility] [address] [place] [address] TREMORS/ MEDICARE, FOR LIFE 03/28/2024 8:30 AM EDT Office Visit Primary Care - [address] [address] Cheo Santoyo DO [address] [place] [phone] AWV 04/06/2024 9:45 AM EST Lab [facility] - [facility] 2084 [facility] [address] [place] [address] CBCMP,CEA,FEST 04/06/2024 10:15 AM EST Office Visit [facility] - [facility] 2084 [facility] [address] [place] [address] Georgi Butterfield MD [address] [place] [address] 6 MTH FU W/LABS, REV SCAN 04/13/2024 9:30 AM EST Office Visit Surgical Oncology - [facility] 2084 [facility] [address] [place] [address] Delvis Cheek MD [address] 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
--- OUTSIDE RECORDS SUMMARY | 2024-01-13 21:18 | XMS_ITS | Encounter Summary ---
Author Organization Jose Alejandro Kit [facility] Address [address] [place] [address] Care Team Providers Care Conference Organizer Name Role Phone Baljit Ozuna MD Primary Care Provider [phone] Reason for Visit * Reason Onset Date Comments Advice Only 04/15/2022 Encounter Details Date Type Department Care Team (Late Contact Info) Description 04/15/2022 Telephone Colorectal Surgery - [facility] 125 [facility] 280 [place] [address] Delvis Cheek MD 125 [facility] 660 [place] [address] Advice Only Social History Tobacco [...] Dr. [address] [place] [address] Martell Calderon MD 2144 [facility] [address] [place] [address] TREMORS/ MEDICARE, FOR LIFE 03/28/2024 8:30 AM EDT Office Visit Primary Care - [address] [address] Cheo Santoyo DO [address] [place] [phone] AWV 04/06/2024 9:45 AM EST Lab [facility] - [facility] 2084 [facility] [address] [place] [address] CBCMP,CEA,FEST 04/06/2024 10:15 AM EST Office Visit [facility] - [facility] 2084 [facility] [address] [place] [address] Georgi Butterfield MD [address] [place] [address] 6 MTH FU W/LABS, REV SCAN 04/13/2024 9:30 AM EST Office Visit Surgical Oncology - [facility] 2084 [facility] [address] [place] [address] Delvis Cheek MD 125 [facility] 660 [place] [address] 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 documented as of this encounter Visit Diagnoses Not on filedocumented in this encounter Care Teams Conference Organizer Relationship Specialty Start Date End Date Baljit Ozuna MD PCP - General 03/12/22 06/17/22 documented as of this encounter
--- OUTSIDE RECORDS SUMMARY | 2024-01-13 21:18 | XMS_ITS | Encounter Summary ---
Author Organization Jose Alejandro Pantoja [facility] Address [address] [place] [address] Care Team Providers Care Rubber Curer Name Role Phone Baljit Ozuna MD Primary Care Provider [phone] Encounter Details Date Type Department Care Team (Late st Contact Info) Description 03/23/2022 10:07 AM EDT - 03/23/2022 11:59 PM EDT Hospital Encounter RS HISTORICAL CONVERSIONS [address] [place] [address] Georgi Butterfield MD 3510 [facility] [address] [place], [place] [address] Social History Tobacco Use Types Packs/Day Years [...] Visit Neurology - [facility] [address] [facility] [address] [place] [address] Martell Calderon MD 2144 [facility] [address] [place], [place] [address] TREMORS/ MEDICARE, FOR LIFE 03/28/2024 8:30 AM EDT Office Visit Primary Care - [address] [phone] Cheo Santoyo, [address] [address] AWV 04/06/2024 9:45 AM EST Lab [facility] - [facility] 2084 [facility] [address] [place] [address] CBCMP,CEA,FEST 04/06/2024 10:15 AM EST Office Visit [facility] - [facility] 2084 [facility] [address] [place] [address] Georgi Butterfield MD [address] [place] [address] 6 MTH FU W/LABS, REV SCAN 04/13/2024 9:30 AM EST Office Visit Surgical Oncology - [facility] 208 [facility] [address] [place] [address] Delvis Cheek MD 125 [facility] 660 [place] [address] 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 documented as of this encounter Visit Diagnoses Not on filedocumented in this encounter Care Teams Rubber Curer Relationship Specialty Start Date End Date Baljit Ozuna MD PCP - General 03/12/22 06/17/22 documented as of this encounter
--- OUTSIDE RECORDS SUMMARY | 2024-01-13 21:18 | XMS_ITS | Encounter Summary ---
Author Organization Jose Alejandro Raymundolinnea [facility] Address [address] [place] [address] Care Team Providers Care Travel Agency Manager Name Role Phone Cheo Santoyo Primary Care Provider [phone] Encounter Details Date Type Department Care Team (Late st Contact Info) Description 10/28/2021 Legacy Historical Encounter [facility] HISTORICAL CONVERSIONS [address] [place], [place] [phone] Dave Lynne Jr., MD [address] [place], [place] [id number] Social History Tobacco Use Types Packs/Day Years Used Date Smoking Tobacco: Never Assessed [facility] Utilities Answer Date Recorded In the past 12 months has [employer] electric, gas, oil, or water company threatened [...] place to sleep or slept in a fci (including now)? No 10/19/2023 Food Insecurity Answer [...] - [facility] 2144 [facility] [address] [place] [address] Martell Calderon MD 2144 [facility] [address] [place], [place] [address] TREMORS/ MEDICARE, FOR LIFE 03/28/2024 8:30 AM EDT Office Visit Primary Care - [address] [phone] Cheo Santoyo [address] [place] [address] AWV 04/06/2024 9:45 AM EST Lab [facility] - [facility] [address] [facility] [address] [place] [address] CBCMP,CEA,FEST 04/06/2024 10:15 AM EST Office Visit [facility] - [facility] [address] [facility] [address] [place] [address] Georgi Butterfield MD [address] [place] [address] 6 MTH FU W/LABS, REV SCAN 04/13/2024 9:30 AM EST Office Visit Surgical Oncology - [facility] [address] 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 documented as of this encounter Visit Diagnoses Not on filedocumented in this encounter Care Teams Travel Agency Manager Relationship Specialty Start Date End Date Cheo Santoyo DO [address] [place] [phone] PCP - General Family Medicine 07/06/23 documented as of this encounter
--- OUTSIDE RECORDS SUMMARY | 2024-01-13 21:18 | XMS_ITS | Encounter Summary ---
Author Organization [facility] Kit [facility] Address [address] [place] [address] Care Team Providers Care Barmaid Name Role Phone Baljit Ozuna MD Primary Care Provider [phone] Encounter Details Date Type Department Care Team (Late st Contact Info) Description 04/09/2022 Abstract [facility] - [facility] 8950 [facility] [address] [place] [address] Georgi Butterfield MD [address] [place] [address] Social History Tobacco Use Types [...] Dr. [address] [place] [address] Martell Calderon MD [address] [facility] [address] [place] [address] TREMORS/ MEDICARE, FOR LIFE 03/28/2024 8:30 AM EDT Office Visit Primary Care - [facility] [address] [place] [address] Cheo Santoyo DO [address] [place] [address] AWV 04/06/2024 9:45 AM EST Lab [facility] - [facility] 2084 [facility] [address] [place] [address] CBCMP,CEA,FEST 04/06/2024 10:15 AM EST Office Visit [facility] - [facility] 2084 [facility] [address] [place] [address] Georgi Butterfield MD 3510 [facility] [address] [place], [place] [address] 6 MTH FU W/LABS, REV SCAN 04/13/2024 9:30 AM EST Office Visit Surgical Oncology - [facility] 2084 [facility] [address] [place] [address] Delvis Cheek MD 125 [facility] [address] [place] [address] 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 [address] [place] [address] Karly Bautista PA [address] [place] [address] annual visit from date of surgery May/Jul 2024 for bilateral TKA and right LIZZ with Karly. documented as of this encounter Visit Diagnoses Not on filedocumented in this encounter Care Teams Barmaid Relationship Specialty Start Date End Date Baljit Ozuna MD PCP - General 03/12/22 06/17/22 documented as of this encounter
--- OUTSIDE RECORDS SUMMARY | 2024-01-13 21:18 | XMS_ITS | Encounter Summary ---
Author Organization Jose Alejandro Pantoja [facility] Address [address] [place] [address] Care Team Providers Care Cook Cold Meat Name Role Phone YarelisCheo friend Moshe REYES Primary Care Provider [phone] Encounter Details Date Type Department Care Team [...] - [facility] 2144 [facility] [address] [place] [address] Martell Calderon MD 2144 [facility] [address] [place] [address] TREMORS/ MEDICARE, FOR LIFE 03/28/2024 8:30 AM EDT Office Visit Primary Care - [address] [phone] Cheo Santoyo, [address] [address] AWV 04/06/2024 9:45 AM EST Lab [facility] - [facility] 2084 [facility] [address] [place] [address] CBCMP,CEA,FEST 04/06/2024 10:15 AM EST Office Visit [facility] - [facility] 2084 [facility] [address] [place] [address] Georgi Butterfield MD [address] [place] [address] 6 MTH FU W/LABS, REV SCAN 04/13/2024 9:30 AM EST Office Visit Surgical Oncology - [facility] 2084 [facility] [address] [place] [address] Delvis Cheek MD 125 [facility] 660 [place] [address] 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 documented as of this encounter Visit Diagnoses Not on filedocumented in this encounter Care Teams Cook Cold Meat Relationship Specialty Start Date End Date Cheo Santoyo DO [address] [place] [phone] PCP - General Family Medicine 07/06/23 documented as of this encounter
--- OUTSIDE RECORDS SUMMARY | 2024-01-13 21:18 | XMS_ITS | Encounter Summary ---
Author Organization Jose Alejandro Pantoja [facility] Address [address] [place] [address] Care Team Providers Care Insurance Checker Name Role Phone Cheo Santoyo Primary Care Provider [phone] Encounter Details Date Type Department Care Team (Late st Contact Info) Description 10/23/2021 Legacy Historical Encounter [facility] HISTORICAL CONVERSIONS [address] [place] [address] Delvis Cheek MD [address] [address] Social History Tobacco Use Types [...] Hospital 2144 [facility] [address] [place] [address] Martell Calderon MD 214 [facility] [address] [place] [address] TREMORS/ MEDICARE, FOR LIFE 03/28/2024 8:30 AM EDT Office Visit Primary Care - [address] [address] [place] [address] [place] [address] AWV 04/06/2024 9:45 AM EST Lab [facility] - [facility] [address] [facility] [address] [place] [address] CBCMP,CEA,FEST 04/06/2024 10:15 AM EST Office Visit [facility] - [facility] [address] [facility] [address] [place] [phone] Georgi Butterfield MD 3510 [facility] [address] [place] [address] 6 MTH FU W/LABS, REV SCAN 04/13/2024 9:30 AM EST Office Visit Surgical Oncology - 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 documented as of this encounter Visit Diagnoses Not on filedocumented in this encounter Care Teams Insurance Checker Relationship Specialty Start Date End Date Cheo Santoyo DO [address] [place] [phone] PCP - General Family Medicine 07/06/23 documented as of this encounter
--- OUTSIDE RECORDS SUMMARY | 2024-01-13 21:18 | XMS_ITS | Encounter Summary ---
Author Organization Jose Alejandro [facility] Address [address] [place] [address] Care Team Providers Care Vp Transportation Name Role Phone Baljit Ozuna MD Primary Care Provider [phone] Encounter Details Date Type Department Care Team [...] Dr. [address] [place] [address] Martell Calderon MD [address] [place] [address] TREMORS/ MEDICARE, FOR LIFE 03/28/2024 8:30 AM EDT Office Visit Primary Care - [facility] 1112 [place] [address] Cheo Santoyo DO 1112 [place] [address] AWV 04/06/2024 9:45 AM EST Lab [facility] - [facility] [address] [facility] [address] [place] [address] CBCMP,CEA,FEST 04/06/2024 10:15 AM EST Office Visit [facility] - [facility] [address] [facility] [address] [place] [address] Georgi Butterfield MD 3510 [facility] [address] [place] [address] 6 MTH FU W/LABS, REV SCAN 04/13/2024 9:30 AM EST Office Visit Surgical Oncology - [facility] [address] 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 documented as of this encounter Visit Diagnoses Not on filedocumented in this encounter Care Teams Vp Transportation Relationship Specialty Start Date End Date Baljit Ozuna MD PCP - General 10/13/22 1/18/23 documented as of this encounter
--- OUTSIDE RECORDS SUMMARY | 2024-01-13 21:18 | XMS_ITS | Encounter Summary ---
Author Organization Jose Alejandro [facility] Address [address] [place] [address] Care Team Providers Care Outreach Rep Name Role Phone Baljit Ozuna MD Primary Care Provider [phone] Reason for Visit * Reason Onset Date Comments Injections 05/15/202206/18 RT HIP IA INJ Encounter Details Date Type Department Care Team (Late st Contact Info) Description 05/15/2022 Telephone Neurosurgery & Spine - [address] [facility] [facility] [address] [place] [address] Martinez Guthrie MD 2145 [facility] [address] [place] [address] Injections (06/18 RT HIP IA [...] Neurology - [address] [facility] [address] [place] [address] Martell Calderon MD [address] [facility] [address] [place] [address] TREMORS/ MEDICARE, FOR LIFE 03/28/2024 8:30 AM EDT Office Visit Primary Care - [address] [phone] Cheo Santoyo, DO 1112 [place] [address] AWV 04/06/2024 9:45 AM EST Lab [facility] - [facility] 20[address] [facility] [address] [place] [address] CBCMP,CEA,FEST 04/06/2024 10:15 AM EST Office Visit [place] - [facility] 2084 [facility] [address] [place] [address] Georgi Butterfield MD 3510 [facility] [address] [place], [place] [address] 6 MTH FU W/LABS, REV SCAN 04/13/2024 9:30 AM EST Office Visit Surgical Oncology - [facility] 2084 [facility] [address] [place] [address] Delvis Cheek MD 125 [facility] 660 [place] [address] 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 documented as of this encounter Visit Diagnoses Not on filedocumented in this encounter Care Teams Outreach Rep Relationship Specialty Start Date End Date Baljit Ozuna MD PCP - General 03/12/22 06/17/22 documented as of this encounter
--- OUTSIDE RECORDS SUMMARY | 2024-01-13 21:18 | XMS_ITS | Encounter Summary ---
Author Organization Jose Alejandro Raymundolinnea [facility] Address [address] [place] [address] Care Team Providers Care Teller Manager Name Role Phone Baljit Ozuna MD Primary Care Provider [phone] Reason for Visit * Reason Comments Injections B/L Supartz injectio ns #4 Encounter Details Date Type Department Care Team (Late st Contact Info) Description 04/10/2022 9:30 AM EST Nurse Only Orthopaedics - [address] [place] [address] Georgi Andersen PA [address] [place] [address] Primary osteoarthritis of left knee (Primary Dx); [...] EDT [facility] [address] [facility] [address] [place] [address] Martell Calderon MD 2144 [facility] [address] [place] [address] TREMORS/ MEDICARE, FOR LIFE 03/28/2024 8:30 AM EDT Office Visit Primary Care - [address] [address] Cheo Santoyo, DO 1112 [place] [address] AWV 04/06/2024 9:45 AM EST Lab [place] [facility] - [facility] 2084 [facility] [address] [place] [address] CBCMP,CEA,FEST 04/06/2024 10:15 AM EST Office Visit [place] [facility] - [facility] 2084 [facility] [address] [place] [address] Georgi Butterfield MD [address] [place] [address] 6 MTH FU W/LABS, REV SCAN 04/13/2024 9:30 AM EST Office Visit Surgical Oncology - [facility] 2084 [facility] [address] [place] [address] Delvis Cheek MD 125 [facility] 660 [place] [address] 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 documented as of this encounter Visit Diagnoses Diagnosis Primary osteoarthritis of left knee- Primary Primary localized osteoarthrosis, lower leg Primary osteoarthritis of right knee Primary localized osteoarthrosis, lower leg documented in this encounter Care Teams Teller Manager Relationship Specialty Start Date End Date Baljit Ozuna MD PCP - General 03/12/22 06/17/22 documented as of this encounter
--- OUTSIDE RECORDS SUMMARY | 2024-01-13 21:18 | XMS_ITS | Encounter Summary ---
Author Organization Jose Alejandro Raymundolinnea [facility] Address [address] [place] [address] Care Team Providers Care Fire Protection Engineering Technician Name Role Phone Baljit Ozuna MD Primary Care Provider [phone] Reason for Visit * Reason Comments Follow-up Bilateral supartz in j. x2 Hip Pain Right hip Encounter Details Date Type Department Care Team (Late st Contact Info) Description 03/24/2022 9:45 AM EDT Nurse Only Orthopaedics - Maryan [address]sen Dr. [address] [place] [address] Georgi Andersen PA [address] [facility] [address] [address] [place] [address] Primary hypertension (Primary Dx) Social History Tobacco [...] Dr. [address] [place] [address] Martell Calderon MD 2145 [facility] [address] [place] [address] TREMORS/ MEDICARE, FOR LIFE 03/28/2024 8:30 AM EDT Office Visit Primary Care - [address] [phone] Cheo Santoyo DO [address] [place] [address] AWV 04/06/2024 9:45 AM EST Lab [facility] - [facility] 2084 [facility] [address] [place] [address] CBCMP,CEA,FEST 04/06/2024 10:15 AM EST Office Visit [place] - [facility] 2084 [facility] [address] [place] [address] Georgi Butterfield MD [address] [place] [address] 6 MTH FU W/LABS, REV SCAN 04/13/2024 9:30 AM EST Office Visit Surgical Oncology - [facility] 2084 [facility] [address] [place] [address] Delvis Cheek MD 125 [facility] 660 [place] [address] 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 documented as of this encounter Visit Diagnoses Diagnosis Primary hypertension- Primary Unspecified essential hypertension documented in this encounter Care Teams Fire Protection Engineering Technician Relationship Specialty Start Date End Date Baljit Ozuna MD PCP - General 03/12/22 06/17/22 documented as of this encounter
--- OUTSIDE RECORDS SUMMARY | 2024-01-13 21:18 | XMS_ITS | Encounter Summary ---
Author Organization Jose Alejandro Pantoja [facility] Address [address] [place] [address] Care Team Providers Care Rn Labor Delivery Name Role Phone Cheo Santoyo Primary Care Provider [phone] Encounter Details Date Type Department Care Team (Late st Contact Info) Description 09/19/[address] [facility] HISTORICAL CONVERSIONS [address] [place], [place] [address] Maurice Wood II, MD 7 [facility] [address] [place] [address] Social History Tobacco Use Types Packs/Day Years [...] Visit Neurology - [facility] 2144 [facility] [address] [place] [address] Martell Calderon MD 214 [facility] [address] [place] [address] TREMORS/ MEDICARE, FOR LIFE 03/28/2024 8:30 AM EDT Office Visit Primary Care - [address] [address] [place] [address] [place] [address] AWV 04/06/2024 9:45 AM EST Lab [facility] - [facility] [address] [facility] [address] [place] [address] CBCMP,CEA,FEST 04/06/2024 10:15 AM EST Office Visit [place] [facility] - [facility] [address] 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 documented as of this encounter Visit Diagnoses Not on filedocumented in this encounter Care Teams Rn Labor Delivery Relationship Specialty Start Date End Date Cheo Santoyo DO [address] [place] [address] PCP - General Family Medicine 07/06/23 documented as of this encounter
--- OUTSIDE RECORDS SUMMARY | 2024-01-13 21:18 | XMS_ITS | Encounter Summary ---
Author Organization Jose Alejandro Pantoja [facility] Address [address] [place] [address] Care Team Providers Care Trailer Tank Truck Driver Name Role Phone Cheo Santoyo Primary Care Provider [phone] Encounter Details Date Type Department Care Team (Late st Contact Info) Description 07/30/2021 Legacy Historical Encounter [facility] HISTORICAL CONVERSIONS [address] [place], [place] [phone] Cherie Pope, PA [address] [id number] Social History Tobacco Use Types Packs/Day Years [...] Office Visit Neurology - [facility] 2144 [facility] [address] [place] [address] Martell Calderon MD 2144 [facility] [address] [place] [address] TREMORS/ MEDICARE, FOR LIFE 03/28/2024 8:30 AM EDT Office Visit Primary Care - [address] [address] Cheo Santoyo, 1112 [place] [address] AWV 04/06/2024 9:45 AM EST Lab [facility] - [facility] 2084 [facility] [address] [place] [address] CBCMP,CEA,FEST 04/06/2024 10:15 AM EST Office Visit [place] [facility] - [facility] [address] [facility] [address] [place] [address] Georgi Butterfield MD [address] [place] [address] 6 MTH FU W/LABS, REV SCAN 04/13/2024 9:30 AM EST Office Visit Surgical Oncology - [facility] 2082 [facility] [address] [place] [address] Delvis Cheek MD 125 [facility] 660 [place] [address] 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 documented as of this encounter Visit Diagnoses Not on filedocumented in this encounter Care Teams Trailer Tank Truck Driver Relationship Specialty Start Date End Date Cheo Santoyo DO [address] [place] [phone] PCP - General Family Medicine 07/06/23 documented as of this encounter
--- OUTSIDE RECORDS SUMMARY | 2024-01-13 21:18 | XMS_ITS | Encounter Summary ---
Author Organization Jose Alejandro Pantoja [facility] Address [address] [facility] [place] [address] Care Team Providers Care Supervisor Refractory Products Name Role Phone Baljit Ozuna MD Primary Care Provider [phone] Reason for Visit * Reason Comments Knee [...] Dr. [address] [place] [address] Georgi Andersen PA [address] [place] [address] Primary osteoarthritis of left knee (Primary Dx); [...] Neurology - [facility] 2144 [facility] [address] [place] [address] Martell Calderon MD 2144 [facility] [address] [place] [address] TREMORS/ MEDICARE, FOR LIFE 03/28/2024 8:30 AM EDT Office Visit Primary Care - [address] [phone] Cheo Santoyo, [address] [address] AWV 04/06/2024 9:45 AM EST Lab [facility] - [facility] 2084 [facility] [address] [place] [address] CBCMP,CEA,FEST 04/06/2024 10:15 AM EST Office Visit [place] [facility] - [facility] 2084 [facility] [address] [place] [address] Georgi Butterfield MD 3510 [facility] [address] [place] [address] 6 MTH FU W/LABS, REV SCAN 04/13/2024 9:30 AM EST Office Visit Surgical Oncology - [facility] 2084 [facility] [address] [place] [address] Delvis Cheek MD 125 [facility] [address] [place] [address] 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
--- OUTSIDE RECORDS SUMMARY | 2024-01-13 21:18 | XMS_ITS | Encounter Summary ---
Author Organization Jose Alejandro Kit [facility] Address [address] [place] [address] Care Team Providers Care Paraplanner Name Role Phone Felicitas Monaco MD Primary Care Provider [phone] Reason for Visit * Auth/Cert (Routine) Specialty Diagnoses / Procedures Referred By Rachid jimenez Referred To Contact Diagnoses Unilateral primary osteoarthritis, right hip Procedures RI ARTHROCENTESIS ASPIR&/INJ MAJOR JT/BURSA W/O US Martinez Guthrie MD [address] [place] [address] Referral ID Status Reason Start Date Expiration Date Visits Re quested Visits Authorized [id number] 05/26/2022 1 1 Encounter Details Date Type Department Care Team (Late st Contact Info) Description 06/18/2022 7:37 AM EST - 06/18/2022 8:39 AM EST Hospital Encounter [facility] OR 20[address] [place], [place] [id number] Martinez Guthrie MD [address] [place] [address] Discharge Disposition: Home or Self Care [...] Everywhere. * Bursa Injection: Trochanteric: General Info (Palauan) * RICE: General Info (Palauan) documented in this encounter Medications at Time [...] Visit Neurology - [facility] 2144 [facility] [address] [place] [address] Martell Calderon MD 2144 [facility] [address] [place] [address] TREMORS/ MEDICARE, FOR LIFE 03/28/2024 8:30 AM EDT Office Visit Primary Care - [address] [address] Cheo Santoyo DO [address] [place] [address] AWV 04/06/2024 9:45 AM EST Lab [facility] - [facility] 2084 [facility] [address] [place] [address] CBCMP,CEA,FEST 04/06/2024 10:15 AM EST Office Visit [facility] - [facility] 2084 [facility] [address] [place] [address] Georgi Butterfield MD [address] [place] [address] 6 MTH FU W/LABS, REV SCAN 04/13/2024 9:30 AM EST Office Visit Surgical Oncology - [facility] 2084 [facility] [address] [place] [address] Delvis Cheek MD [address] [place] [address] [address] [place] [address] 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 documented as of this encounter Procedures Procedure Name Priority Date/Time Associated Diagnosis Comments RI ARTHROCENTESIS ASPIR&/INJ MAJOR JT/BURSA W/O US 06/18/2022 [...] MD) documented in this encounter Care Teams Paraplanner Relationship Specialty Start Date End Date Felicitas Monaco MD PCP - General Family Medicine 06/18/22 07/05/23 documented as of this encounter
--- OUTSIDE RECORDS SUMMARY | 2024-01-13 21:18 | XMS_ITS | Encounter Summary ---
Author Organization Jose Alejandro Pantoja [facility] Address [address] [place] [address] Care Team Providers Care Agent Licensing Clerk Name Role Phone Cheo Santoyo Primary Care Provider [phone] Encounter Details Date Type Department Care Team (Late st Contact Info) Description 09/16/2021 Legacy Historical Encounter [facility] HISTORICAL CONVERSIONS [address] [place], [place] [phone] Georgi Andersen, PA 2093 [facility] [address] [place], [place] [phone] Social History Tobacco Use Types Packs/Day Years [...] Visit Neurology - [facility] 2144 [facility] [address] [place] [address] Martell Calderon MD 214 [facility] [address] [place] [address] TREMORS/ MEDICARE, FOR LIFE 03/28/2024 8:30 AM EDT Office Visit Primary Care - [address] [address] Cheo Santoyo, 1112 [place] [address] AWV 04/06/2024 9:45 AM EST Lab [facility] - [facility] 2084 [facility] [address] [place] [address] CBCMP,CEA,FEST 04/06/2024 10:15 AM EST Office Visit [facility] - [facility] 2084 [facility] [address] [place] [address] Georgi Butterfield MD [address] [place] [address] 6 MTH FU W/LABS, REV SCAN 04/13/2024 9:30 AM EST Office Visit Surgical Oncology - [facility] 2088 [facility] [address] [place] [address] Delvis Cheek MD 125 [facility] 660 [place] [address] 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 301 [place] [address] annual visit from date of surgery May/Jul 2024 for bilateral TKA and right LIZZ with Karly. documented as of this encounter Visit Diagnoses Not on filedocumented in this encounter Care Teams Agent Licensing Clerk Relationship Specialty Start Date End Date Cheo Santoyo DO [address] [place] [address] PCP - General Family Medicine 07/06/23 documented as of this encounter
--- OUTSIDE RECORDS SUMMARY | 2024-01-13 21:18 | XMS_ITS | Encounter Summary ---
Author Organization Jose Alejandro Kit [facility] Address [address] [place] [address] Care Team Providers Care Hot Dip Plating Supervisor Name Role Phone Baljit Ozuna MD Primary Care Provider [phone] Encounter Details Date Type Department Care Team (Late st Contact Info) Description 03/27/2022 Abstract Surgical Oncology - [facility] 125 [facility] 660 [place] [address] Delvis Cheek MD 125 [facility] 660 [place] [address] Social History Tobacco Use Types [...] Dr[address] [place] [address] Martell Caledron MD 214 [facility] [address] [place] [address] TREMORS/ MEDICARE, FOR LIFE 03/28/2024 8:30 AM EDT Office Visit Primary Care - [facility] [address] [place] [address] Cheo Santoyo DO 1112 [place] [address] AWV 04/06/2024 9:45 AM EST [facility] - [facility] 2084 [facility] [address] [place] [address] CBCMP,CEA,FEST 04/06/2024 10:15 AM EST Office Visit [facility] - [facility] 2084 [facility] [address] [place] [address] Georgi Butterfield MD 3510 [facility] [address] [place], [place] [address] 6 MTH FU W/LABS, REV SCAN 04/13/2024 9:30 AM EST Office Visit Surgical Oncology - [facility] 2084 [facility] [address] [place] [address] Delvis Cheek MD 125 [facility] 660 [place] [address] 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 documented as of this encounter Visit Diagnoses Not on filedocumented in this encounter Care Teams Hot Dip Plating Supervisor Relationship Specialty Start Date End Date Baljit Ozuna MD PCP - General 03/12/22 06/17/22 documented as of this encounter
--- OUTSIDE RECORDS SUMMARY | 2024-01-13 21:18 | XMS_ITS | Encounter Summary ---
Author Organization Jose Alejandro Kit [facility] Address [address] [place] [address] Care Team Providers Care High Rigger Name Role Phone Baljit Ozuna MD Primary Care Provider [phone] Reason for Visit * Treatment Plan and Therapy Plan (Routine) - Closed Specialty Diagnoses / Procedures Referred By Contac t Referred To Contact Diagnoses Iron deficiency anemia, unspecified iron deficiency anemia type Georgi Butterfield MD [address] [place] [address] Rsf L[facility] Un Infusion Therapy 8950 [facility] 100 [place] [address] Referral ID Status Reason Start Date Expiration Date Visits Re quested Visits Authorized [id number] Closed 04/13/2022 04/13/2023 1 2 Encounter Details Date Type Department Care Team (Latest Contact Info) Description 04/13/2022 1:36 PM EST - 04/13/2022 11:59 PM [facility] Hospital Encounter [facility] UN INFUSION THERAPY 8950 [facility] [address] [place] [address] Iron deficiency anemia, unspecified iron [...] Visit Neurology - [facility] 2144 [facility] [facility] [address] [place] [address] Martell Calderon MD 2144 [facility] [address] [place] [address] TREMORS/ MEDICARE, FOR LIFE 03/28/2024 8:30 AM EDT Office Visit Primary Care - [address] [address] [place] [address] [place] [phone] AWV 04/06/2024 9:45 AM EST [facility] - [facility] 2084 [facility] [address] [place] [address] CBCMP,CEA,FEST 04/06/2024 10:15 AM EST Office Visit [place] - [facility] 2084 [facility] [address] [place] [address] Georgi Butterfield MD [address] [place] [address] 6 MTH FU W/LABS, REV SCAN 04/13/2024 9:30 AM EST Office Visit Surgical Oncology - [facility] 2084 [facility] [address] [place] [address] Delvis Cheek MD 125 [facility] [address] [place] [address] 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
--- OUTSIDE RECORDS SUMMARY | 2024-01-13 21:18 | XMS_ITS | Encounter Summary ---
Author Organization Jose Alejandro [facility] Address [address] [place] [address] Care Team Providers Care Plant Engineering Supervisor Name Role Phone Baljit Ozuna MD Primary Care Provider [phone] Encounter Details Date Type Department Care Team (Late st Contact Info) Description 03/23/2022 10:07 AM EDT - 03/23/2022 11:59 PM EDT Hospital Encounter RS HISTORICAL CONVERSIONS [address] [place] [address] Georgi Butterfield MD 3510 [facility] [address] [place], [place] [phone] Social History Tobacco Use Types Packs/Day Years [...] Office Visit Neurology - [facility] 2144 [facility] [address] [place] [address] Martell Calderon MD 2144 [facility] [address] [place], [place] [address] TREMORS/ MEDICARE, FOR LIFE 03/28/2024 8:30 AM EDT Office Visit Primary Care - [address] [phone] Cheo Santoyo, [address] [address] AWV 04/06/2024 9:45 AM EST Lab [facility] - [facility] 2084 [facility] [address] [place] [address] CBCMP,CEA,FEST 04/06/2024 10:15 AM EST Office Visit [place] - [facility] 2084 [facility] [address] [place] [address] Georgi Butterfield MD [address] [place] [address] 6 MTH FU W/LABS, REV SCAN 04/13/2024 9:30 AM EST Office Visit Surgical Oncology - [facility] 2083 [facility] [address] [place] [address] Delvis Cheek MD 125 [facility] 660 [place] [address] 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 documented as of this encounter Visit Diagnoses Not on filedocumented in this encounter Care Teams Plant Engineering Supervisor Relationship Specialty Start Date End Date Baljit Ozuna MD PCP - General 03/12/22 06/17/22 documented as of this encounter
--- OUTSIDE RECORDS SUMMARY | 2024-01-13 21:19 | XMS_ITS | Encounter Summary ---
Author Organization Jose Alejandro [facility] Address [address] [place] [address] Care Team Providers Care Grading Clerk Name Role Phone Unavailable Primary Care Provider Unavailabl e Encounter Details Date Type Department Care Team (Late st Contact Info) Description 06/24/2020 8:08 PM EST - 06/24/2020 11:59 PM EST Hospital Encounter RS HISTORICAL CONVERSIONS 316 [place], [place] [id number] Ramirez Dorsey MD 295[facility] 100 [facility] 100 [place] [address] Social History Tobacco Use Types Packs/Day Years [...] Dr. [address] [place] [address] Martell Calderon MD 2144 [facility] [address] [place] [address] TREMORS/ MEDICARE, FOR LIFE 03/28/2024 8:30 AM EDT Office Visit Primary Care - [address] [address] Cheo Santoyo DO [address] [place] [address] AWV 04/06/2024 9:45 AM EST Lab [place] [facility] - [facility] 2084 [facility] [address] [place] [address] CBCMP,CEA,FEST 04/06/2024 10:15 AM EST Office Visit [place] [facility] - [facility] 2084 [facility] [address] [place] [address] Georgi Butterfield MD [address] [place] [address] 6 MTH FU W/LABS, REV SCAN 04/13/2024 9:30 AM EST Office Visit Surgical Oncology - [facility] 2084 [facility] [address] [place] [address] Delvis Cheek MD 125 [facility] 660 [place] [address] 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 documented as of this encounter Procedures Procedure Name Priority Date/Time Associated Diagnosis Comments CULTURE, URINE Routine 06/24/2020 11:11 AM EST documented in this encounter Results * (ABNORMAL) Culture, Urine (06/24/2020 11:11 AM EST) Organism Enterococcus faecalis *See Final Report* (A) [facility] CERNER CONVERSION FINAL REPORT >100,000 cfu/ml Enterococcus faecalis isolated. 3,000 cfu/ml Gram Negative Rods isolated. [facility] CERNER CONVERSION Comment:Performing Lab: [facility] Bench 06/24/2020 11:1 1 AM EST [...] Ramirez Dorsey MD MICROBIOLOGY - GENERAL ORDERABLES [facility] KAVITHA CONVERSION documented in this encounter Visit Diagnoses Not on filedocumented in this encounter
--- OUTSIDE RECORDS SUMMARY | 2024-01-13 21:19 | XMS_ITS | Encounter Summary ---
Author Organization Jose Alejandro Pantoja [facility] Address [address] [place] [address] Care Team Providers Care Confectionery Maker Name Role Phone YarelisCheo friend Moshe REYES Primary Care Provider [phone] Encounter Details Date Type Department Care Team [...] Visit Neurology - [facility] 2144 [facility] [address] [place] [address] Martell Calderon MD 2144 [facility] [address] [place] [address] TREMORS/ MEDICARE, FOR LIFE 03/28/2024 8:30 AM EDT Office Visit Primary Care - [address] [phone] Cheo Santoyo, [address] [address] AWV 04/06/2024 9:45 AM EST Lab [facility] - [facility] 2084 [facility] [address] [place] [address] CBCMP,CEA,FEST 04/06/2024 10:15 AM EST Office Visit [place] [facility] - [facility] 2084 [facility] [address] [place] [address] Georgi Butterfield MD [address] [place] [address] 6 MTH FU W/LABS, REV SCAN 04/13/2024 9:30 AM EST Office Visit Surgical Oncology - [facility] 2084 [facility] [address] [place] [address] Delvis Cheek MD 125 [facility] 660 [place] [address] 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 documented as of this encounter Visit Diagnoses Not on filedocumented in this encounter Care Teams Confectionery Maker Relationship Specialty Start Date End Date Cheo Santoyo DO [address] [place] [phone] PCP - General Family Medicine 07/06/23 documented as of this encounter
--- OUTSIDE RECORDS SUMMARY | 2024-01-13 21:19 | XMS_ITS | Encounter Summary ---
Author Organization Jose Alejandro [facility]ja [facility] Address [address] [place] [address] Care Team Providers Care Senior Process Control Tech Name Role Phone YarelisCheo friend Moshe REYES Primary Care Provider [phone] Encounter Details Date Type Department Care Team [...] Neurology - [facility] 2144 [facility] [address] [place] [address] Martell Calderon MD 2144 [facility] [address] [place] [address] TREMORS/ MEDICARE, FOR LIFE 03/28/2024 8:30 AM EDT Office Visit Primary Care - [address] [phone] Cheo Santoyo, [address] [address] AWV 04/06/2024 9:45 AM EST Lab [place] [facility] - [facility] 2084 [facility] [address] [place] [address] CBCMP,CEA,FEST 04/06/2024 10:15 AM EST Office Visit [place] [facility] - [facility] 2084 [facility] [address] [place] [address] Georgi Butterfield MD [address] [place] [address] 6 MTH FU W/LABS, REV SCAN 04/13/2024 9:30 AM EST Office Visit Surgical Oncology - [facility] 2084 [facility] [address] [place] [address] Delvis Cheek MD 125 [facility] 660 [place] [address] 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 documented as of this encounter Visit Diagnoses Not on filedocumented in this encounter Care Teams Senior Process Control Tech Relationship Specialty Start Date End Date Cheo Santoyo DO [address] [place] [phone] PCP - General Family Medicine 07/06/23 documented as of this encounter
--- OUTSIDE RECORDS SUMMARY | 2024-01-13 21:19 | XMS_ITS | Encounter Summary ---
Author Organization Jose Alejandro Pantoja [facility] Address [address] [place] [address] Care Team Providers Care Electroplater Apprentice Name Role Phone Cheo Santoyo Primary Care Provider [phone] Encounter Details Date Type Department Care Team ([facility] st Contact Info) Description 07/16/2020 Legacy Historical Encounter [facility] HISTORICAL CONVERSIONS [address] [place] [address] René Wright MD [address] [address] Social History Tobacco Use Types [...] - [facility] 2144 [facility] [address] [place] [address] Martell Calderon MD 214 [facility] [address] [place] [address] TREMORS/ MEDICARE, FOR LIFE 03/28/2024 8:30 AM EDT Office Visit Primary Care - [address] [address] Cheo Santoyo, [address] [place] [address] AWV 04/06/2024 9:45 AM EST Lab [place] [facility] - [facility] 2084 [facility] [address] [place] [address] CBCMP,CEA,FEST 04/06/2024 10:15 AM EST Office Visit [place] [facility] - [facility] 2084 [facility] [address] [place] [address] Georgi Butterfield MD [address] [place] [address] 6 MTH FU W/LABS, REV SCAN 04/13/2024 9:30 AM EST Office Visit Surgical Oncology - [facility] 2082 [facility] [address] [place] [address] Delvis Cheek MD 125 [facility] 660 [place] [address] 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 documented as of this encounter Visit Diagnoses Not on filedocumented in this encounter Care Teams Electroplater Apprentice Relationship Specialty Start Date End Date Cheo Santoyo DO [address] [place] [phone] PCP - General Family Medicine 07/06/23 documented as of this encounter
--- OUTSIDE RECORDS SUMMARY | 2024-01-13 21:19 | XMS_ITS | Encounter Summary ---
Author Organization Jose Alejandro Pantoja [facility] Address [address] [place] [address] Care Team Providers Care High School Art Teacher Name Role Phone Cheo Santoyo Primary Care Provider [phone] Encounter Details Date Type Department Care Team (Late st Contact Info) Description 04/17/2021 Legacy Historical Encounter [facility] HISTORICAL CONVERSIONS 316 [place], [place] [phone] Delvis Cheek MD [address] [address] Social History Tobacco Use Types [...] - [facility] 2144 [facility] [address] [place] [address] Martell Calderon MD 214 [facility] [address] [place] [address] TREMORS/ MEDICARE, FOR LIFE 03/28/2024 8:30 AM EDT Office Visit Primary Care - [address] [address] [place] [address] [place] [address] AWV 04/06/2024 9:45 AM EST Lab [place] - [facility] 2084 [facility] [address] [place] [address] CBCMP,CEA,FEST 04/06/2024 10:15 AM EST Office Visit [place] [facility] - [facility] 2084 [facility] [address] [place] [address] Georgi Butterfield MD 3510 [facility] [address] [place] [address] 6 MTH FU W/LABS, REV SCAN 04/13/2024 9:30 AM EST Office Visit Surgical Oncology - [facility] 2086 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 documented as of this encounter Visit Diagnoses Not on filedocumented in this encounter Care Teams High School Art Teacher Relationship Specialty Start Date End Date Cheo Santoyo DO [address] [place] [phone] PCP - General Family Medicine 07/06/23 documented as of this encounter
--- OUTSIDE RECORDS SUMMARY | 2024-01-13 21:19 | XMS_ITS | Encounter Summary ---
Author Organization Jose Alejandro [facility]ja [facility] Address [address] [place] [address] Care Team Providers Care V Belt Builder Name Role Phone YarelisCheo friend Moshe REYES Primary Care Provider [phone] Encounter Details Date Type Department Care Team [...] Visit Neurology - [facility] 2144 [facility] [address] [place] [address] Martell Calderon MD 2144 [facility] [address] [place] [address] TREMORS/ MEDICARE, FOR LIFE 03/28/2024 8:30 AM EDT Office Visit Primary Care - [address] [phone] Cheo Santoyo, [address] [address] AWV 04/06/2024 9:45 AM EST Lab [place] [facility] - [facility] 2084 [facility] [address] [place] [address] CBCMP,CEA,FEST 04/06/2024 10:15 AM EST Office Visit [place] [facility] - [facility] 2084 [facility] [address] [place] [address] Georgi Butterfield MD [address] [place] [address] 6 MTH FU W/LABS, REV SCAN 04/13/2024 9:30 AM EST Office Visit Surgical Oncology - 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 documented as of this encounter Visit Diagnoses Not on filedocumented in this encounter Care Teams V Belt Builder Relationship Specialty Start Date End Date Cheo Santoyo DO [address] [place] [phone] PCP - General Family Medicine 07/06/23 documented as of this encounter
--- OUTSIDE RECORDS SUMMARY | 2024-01-13 21:19 | XMS_ITS | Encounter Summary ---
Author Organization Jose Alejandro Pantoja [facility] Address [address] [place] [address] Care Team Providers Care Hood Maker Name Role Phone YarelisCheo friend Moshe REYES Primary Care Provider [phone] Encounter Details Date Type Department Care Team [...] Neurology - [facility] 2144 [facility] [address] [place] [address] Martell Calderon MD 2144 [facility] [address] [place] [address] TREMORS/ MEDICARE, FOR LIFE 03/28/2024 8:30 AM EDT Office Visit Primary Care - [address] [phone] Cheo Santoyo, [address] [address] AWV 04/06/2024 9:45 AM EST Lab [facility] - [facility] 2084 [facility] [address] [place] [address] CBCMP,CEA,FEST 04/06/2024 10:15 AM EST Office Visit [place] [facility] - [facility] 2084 [facility] [address] [place] [address] Georgi Butterfield MD [address] [place] [address] 6 MTH FU W/LABS, REV SCAN 04/13/2024 9:30 AM EST Office Visit Surgical Oncology - [facility] 2084 [facility] [address] [place] [address] Delvis Cheek MD 125 [facility] 660 [place] [address] 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 documented as of this encounter Visit Diagnoses Not on filedocumented in this encounter Care Teams Hood Maker Relationship Specialty Start Date End Date Cheo Santoyo DO [address] [place] [phone] PCP - General Family Medicine 07/06/23 documented as of this encounter
--- OUTSIDE RECORDS SUMMARY | 2024-01-13 21:19 | XMS_ITS | Encounter Summary ---
Author Organization [facility] Address [address] [place] [address] Care Team Providers Care Bordereau Clerk Name Role Phone Cheo Santoyo Primary Care Provider [phone] Encounter Details Date Type Department Care Team (Late st Contact Info) Description 05/13/2021 Legacy Historical Encounter [facility] HISTORICAL CONVERSIONS [address] [place], [place] [id number] Georgi Andersen, [place] [address] [facility] [address] [place], [place] [id number] Social History Tobacco Use Types Packs/Day Years [...] - [facility] [address] [facility] [address] [place] [address] Martell Calderon MD [address] [facility] [address] [place] [address] TREMORS/ MEDICARE, FOR LIFE 03/28/2024 8:30 AM EDT Office Visit Primary Care - [address] [address] Cheo Santoyo, [address] [place] [address] AWV 04/06/2024 9:45 AM EST Lab [facility] - [facility] [address] [facility] [address] [place] [address] CBCMP,CEA,FEST 04/06/2024 10:15 AM EST Office Visit [facility] - [facility] [address] [facility] [address] [place] [phone] Georgi Butterfield MD [address] [place] [address] 6 MTH FU W/LABS, REV SCAN 04/13/2024 9:30 AM EST Office Visit Surgical Oncology - [facility] [address] [facility] [address] [place] [phone] Delvis Cheek MD [address] [facility] [address] [place] [phone] 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 documented as of this encounter Visit Diagnoses Not on filedocumented in this encounter Care Teams [place]dereau Clerk Relationship Specialty Start Date End Date Cheo Santoyo DO [address] [place] [phone] PCP - General Family Medicine 07/06/23 documented as of this encounter
--- OUTSIDE RECORDS SUMMARY | 2024-01-13 21:19 | XMS_ITS | Encounter Summary ---
Author Organization [facility] Address [address] [place] [address] Care Team Providers Care Baton Teacher Name Role Phone Crater Santoyoony Moshe REYES Primary Care Provider [phone] Encounter Details Date Type Department Care Team (Late st Contact Info) Description 10/30/2020 Legacy Historical Encounter [facility] AMB HISTORICAL Georgi Butterfield MD [address] [place] [address] Social History Tobacco Use Types Packs/Day Years [...] 9:00 AM EDT [facility] [address] [address] [address] [address] [place] [address] Martell Calderon MD [address] [facility] [address] [place] [address] TREMORS/ MEDICARE, FOR LIFE 03/28/2024 8:30 AM EDT Office Visit Primary Care - [address] [address] [place] [address] [place] [phone] AWV 04/06/2024 9:45 AM EST Lab [facility] - [facility] [place] [address] [facility] [address] [place] [address] CBCMP,CEA,FEST 04/06/2024 10:15 AM EST Office Visit [facility] - [facility] [place] [address] [facility] [address] [place] [address] Georgi Butterfield MD [address] [place] [address] 6 MTH FU W/LABS, REV SCAN 04/13/2024 9:30 AM EST Office Visit Surgical Oncology - [facility] [address] [place] [address] Delvis Cheek MD [address] [facility] [address] [place] [address] 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 documented as of this encounter Visit Diagnoses Not on filedocumented in this encounter Care Teams Baton Teacher Relationship Specialty Start Date End Date Cheo Santoyo DO [address] [place] [phone] PCP - General Family Medicine 07/06/23 documented as of this encounter
--- OUTSIDE RECORDS SUMMARY | 2024-01-13 21:19 | XMS_ITS | Encounter Summary ---
Author Organization Jose Alejandro Kit [facility] Address [address] [address] Care Team Providers Care Computer Systems Auditor Name Role Phone Unavailable Primary Care Provider Unavailabl e Encounter Details Date Type Department Care Team (Late st Contact Info) Description 07/16/2020 6:07 AM EST - 07/19/2020 4:53 PM EST Hospital Encounter [facility] HISTORICAL CONVERSIONS [address] [place] [address] Delvis Cheek MD [address] [place] [phone] Social History Tobacco Use Types Packs/Day [...] note were not included. Inpatient Patient Summary [facility] [address] [place], [place] [id number] Patient Discharge Instructions Name: TESS COLEMAN Justo Current Date: 07/19/2020 16:00:23 : 1955 FIN: [id number] Patient Address: [address] [facility] [address] [facility] [address] Patient Primary Care Provider: Name: NADIA SANON [...] are reflected below: New Medications [facility] DAVID [facility] EPH[facility], [address] [facility] [address] [place], [place] [id number], docusate (Colace 100 mg oral capsule) 1 [...] (given by mouth) every day. Last Dose: [facility] would like to thank you for allowing us to assist you with your healthcare needs. The following includes patient education materials and information regarding your injury/illness. TESS COLEMAN has been given the following list of follow-up instructions, prescriptions, and patient education materials: Follow-up Instructions: With: Address: When: DELVIS SANCHEZ [address] [facility] [address] [place] [address] In 1 week Comments: Follow up with Dr. Mohamud or Leanna DALLAS in 10-14 days from surgery for staple removal. [facility] office at [phone] to schedule appointment. With: Address: When: NADIA SANON [address] [place] [address] Business (1) It is important [...] signs, call to get immediate medical attention! [facility] allows you to manage your health, view your test results, and retrieve your discharge documents from your hospital stay securely and conveniently from your computer. To begin the enrollment process, visit [email or web address]. Click on ???Sign up now?? under [facility]. * Leanna Moulton PA - 07/19/2020 4:00 PM EST Inpatient Clinical Summary [facility] Post-Acute Care Transfer Instructions PERSON INFORMATION Name: TESS COLEMAN FIN#: [id number] PHYSICIANS Admitting Physician: DELVIS BYNUM Attending Physician: DELVIS BYNUM PCP: NADIA SANON Discharge Diagnosis: Arthritis; Ryan esophagus; DDD (degenerative disc disease), lumbar; Diabetes; GERD (gastroesophageal reflux disease); High cholesterol; History of kidney stones; Hypertension;Mass of colon; Seasonal allergies; Sleep apnea; Spinal stenosis Comment: PATIENT EDUCATION INFORMATION Instructions: Medication Leaflets: Follow-up: With: Address: When: DELVIS SANCHEZ [address] [place] [address] [place] [address] In 1 week Comments: Follow up with Dr. Mohamud or Leanna DALLAS in 10-14 days from surgery for staple removal. [facility] at [phone] to schedule appointment. With: Address: When: NADIA SANON [address] [facility], [address] [place] [address] Business (1) MEDICATION LIST Medication Reconciliation at Discharge: New Medications [facility] [employer] [facility], [address] [employer] [place], [place] [id number], docusate (Colace 100 mg oral capsule) 1 [...] this encounter Progress Notes * Historical Provider, [facility] - 07/17/2020 3:25 PM EST Dietary [...] kg? BMI: 31.7-obese, class I? 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 over past year PO HX VB NET PROGRAMMER: WNL (At least 75% usual intake). Patient [...] from surgery, recommended avoiding trigger foods. Good bilingual medical receptionist-goodcompliance anticipated. Contact information provided. Patient stated [...] RD prn. Jess Ricks, MS, RD, LD, [facility] Office:[phone]-Telemediq: Clinical Nutrition Signature Line Electronically Signed on 07/17/2020 03:25 PM EST Jess Ricks * Historical Provider, [facility] - 07/17/2020 9:06 AM EST PT [...] Dr. [address] [place] [address] Martell Calderon MD [address] [place] [address] TREMORS/ MEDICARE, FOR LIFE 03/28/2024 8:30 AM EDT Office Visit Primary Care - [address] [address] Cheo Santoyo, DO [address] [place] [address] AWV 04/06/2024 9:45 AM EST Lab [facility] - [facility] [address] [facility] [address] [place] [phone] CBCMP,CEA,FEST 04/06/2024 10:15 AM EST Office Visit [facility] - [facility] [address] [facility] [address] [place] [phone] Georgi Butterfield MD [address] [facility] [address] [place] [address] 6 MTH FU W/LABS, REV SCAN 04/13/2024 9:30 AM EST Office Visit Surgical Oncology - [facility] [address] [facility] [address] [place] [phone] Delvis Cheek MD [address] [facility] [address] [place] [address] 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 06/19/2024 10:30 AM EST Office Visit Orthopaedics- Les Valencia [address] [facility] [address] [place] [phone] Karly Bautista PA [address] [place] [address] annual [...] CA RE TEST ORDERABLES Performing Organization Address [facility] Co de Phone Number RS CERNER CONVERSION * (ABNORMAL) POCT Glucose (07/19/2020 7:30 AM EST) POC Glucose 194.0(H) 70.0 - 120.0 mg/dL [facility] CERNER CONVERSION Comment:Performing Lab: RH I T1000 POC 07/19/2020 7:30 AM EST 07/19/2020 7:30 AM EST Comment:Blood Delvis Davis MD POINT OF CA RE TEST ORDERABLES Performing Organization Address City/[facility] Co de Phone Number RS CERNER CONVERSION [...] AM EST Comment:Blood Leanna DALLAS CHEMISTRY ORDERABLES [facility] [[email or web address]] [facility] CON[facility] * CBC with Auto Differential (07/19/2020 [...] PA HEMATOLOGY ORDERABLE S Performing Organization Address [facility] de Phone Number [facility] [[email or web address]] CERNER CONVERSION * (ABNORMAL) POCT Glucose (07/18/2020 9:13 PM EST) POC Glucose 148.0(H) 70.0 - 120.0 mg/dL [facility] CERNER CONVERSION Comment:Performing Lab: RH I T1000 POC 07/18/2020 9:13 PM EST 07/18/2020 9:13 PM EST Comment:Blood Delvis Davis MD POINT OF CA RE TEST ORDERABLES Performing Organization Address City/[facility] Co de Phone Number [facility] [[email or web address]] CERNER CONVERSION * POCT Glucose (07/18/2020 4:39 PM EST) POC Glucose 116.0 70.0 - 120.0 mg/dL RS CERNER CONVERSION Comment:Performing Lab: RH I T1000 POC 07/18/2020 4:39 PM EST 07/18/2020 4:39 PM EST Comment:Blood Delvis Davis MD POINT OF [place] RE TEST ORDERABLES Performing Organization Address City/[facility] Co de Phone Number [facility] CERNER CONVERSION * POCT Glucose (07/18/2020 11:45 AM EST) POC Glucose 110.0 70.0 - 120.0 mg/dL [facility] CERNER CONVERSION Comment:Performing Lab: RH I T1000 POC 07/18/2020 11:4 5 AM EST 07/18/2020 11:45 AM EST Comment:Blood Delvis Davis MD POINT [place] RE TEST ORDERABLES Performing Organization Address City/[facility] Co de Phone Number RS CERNER CONVERSION * (ABNORMAL) POCT Glucose (07/18/2020 7:44 AM EST) POC Glucose 131.0(H) 70.0 - 120.0 mg/dL [facility] CERNER CONVERSION Comment:Performing Lab: RH I T1000 POC 07/18/2020 7:44 AM EST 07/18/2020 7:44 AM EST Comment:Blood Delvis Davis MD POINT [facility] RE TEST ORDERABLES Performing Organization Address City/[facility] Co de Phone Number RS CERNER CONVERSION * Magnesium (07/18/2020 5:30 AM EST) Magnesium 1.8 1.6 - 2.6 mg/dL [facility] CERNER CONVERSION Comment:Performing Lab: RH C marybeth 6000 Pending 07/18/2020 5:30 AM EST 07/18/2020 5:53 AM EST Comment:Blood Leanna Moulton PA CHEMISTRY ORDERABLES Performing Organization Address City/State/[facility] Co de Phone Number RS CERNER CONVERSION [...] DALLAS HEMATOLOGY ORDERABLE S Performing Organization Address City/State/[facility] Co de Phone Number [facility] CERNER CONVERSION * (ABNORMAL) Hemoglobin A1C (07/18/2020 5:30 AM EST) [facility] Hemoglobin A1C 6.5(H) 4.0 - 6.0 % [...] Leanna DALLAS CHEMISTRY ORDERABLES Performing Organization Address City/[facility]/ZIP Co de Phone Number RS CERNER CONVERSION * (ABNORMAL) POCT Glucose (07/17/2020 9:43 PM EST) POC Glucose 127.0(H) 70.0 - 120.0 mg/dL [facility] CERNER CONVERSION Comment:Performing Lab: RH I T1000 POC 07/17/2020 9:43 PM EST 07/17/2020 9:43 PM EST Comment:Blood Delvis Davis MD POINT OF [place] RE TEST ORDERABLES Performing Organization Address [facility] Co de Phone Number [facility] [[email or web address]] CERNER CONVERSION * (ABNORMAL) POCT Glucose (07/17/2020 4:51 PM EST) POC Glucose 176.0(H) 70.0 - 120.0 mg/dL [facility] CERNER CONVERSION Comment:Performing Lab: RH I T1000 POC 07/17/2020 4:51 PM EST 07/17/2020 4:51 PM EST Comment:Blood Delvis Davis MD POINT OF [place] RE TEST ORDERABLES Performing Organization Address City/[facility] Co de Phone Number [facility] [[email or web address]] CERNER CONVERSION * (ABNORMAL) POCT Glucose (07/17/2020 12:24 PM EST) POC Glucose 141.0(H) 70.0 - 120.0 mg/dL [facility] CERNER CONVERSION Comment:Performing Lab: RH I T1000 POC 07/17/2020 12:2 4 PM EST 07/17/2020 12:24 PM EST Comment:Blood Delvis Davis MD POINT OF CA RE TEST ORDERABLES Performing Organization Address [facility] de Phone Number [facility] [[email or web address]] CERNER CONVERSION * POCT Glucose (07/17/2020 9:26 AM EST) POC Glucose 109.0 70.0 - 120.0 mg/dL RS CERNER CONVERSION Comment:Performing Lab: RH I T1000 POC 07/17/2020 9:26 AM EST 07/17/2020 9:26 AM EST Comment:Blood Delvis Davis MD POINT OF CA RE TEST ORDERABLES Performing Organization Address [facility] de Phone Number [facility] [[email or web address]] CERNER CONVERSION * (ABNORMAL) POCT Glucose (07/17/2020 8:24 AM EST) POC Glucose 155.0(H) 70.0 - 120.0 mg/dL RS CERNER CONVERSION Comment:Performing Lab: RH I T1000 POC 07/17/2020 8:24 AM EST 07/17/2020 8:24 AM EST Comment:Blood Delvis Davis MD POINT OF CA RE TEST ORDERABLES Performing Organization Address City/[facility] Co de Phone Number [facility] [[email or web address]] CERNER CONVERSION * POCT Glucose (07/17/2020 7:21 AM EST) POC Glucose 109.0 70.0 - 120.0 mg/dL [facility] CERNER CONVERSION Comment:Performing Lab: RH I T1000 POC 07/17/2020 7:21 AM EST 07/17/2020 7:21 AM EST Comment:Blood Delvis Davis MD POINT OF CA RE TEST ORDERABLES Performing Organization Address City/[facility] de Phone Number RS CERNER CONVERSION * POCT Glucose (07/17/2020 6:06 AM EST) POC Glucose 100.0 70.0 - 120.0 mg/dL [facility] CERNER CONVERSION Comment:Performing Lab: RH I T1000 POC 07/17/2020 6:06 AM EST 07/17/2020 6:06 AM EST Comment:Blood Delvis Davis MD POINT OF CA RE TEST ORDERABLES Performing Organization Address [facility] de Phone Number RS CERNER CONVERSION * Phosphorus (07/17/2020 5:13 AM EST) Phosphorus 3.9 2.5 - 4.5 mg/dL [facility] CERNER CONVERSION Comment:Performing Lab: RH C marybeth 6000 Pending 07/17/2020 5:13 AM EST 07/17/2020 5:30 AM EST Comment:Blood Leanna DALLAS CHEMISTRY ORDERABLES Performing Organization Address City/[facility] de Phone Number RS CERNER CONVERSION * [...] AM EST Comment:Blood Leanna DALLAS CHEMISTRY ORDERABLES [facility] CONVERSION * (ABNORMAL) CBC with Auto Differential [...] PA HEMATOLOGY ORDERABLE S Performing Organization Address [facility] de Phone Number [facility] CERNER CONVERSION * POCT Glucose (07/17/2020 4:52 AM EST) POC Glucose 99.0 70.0 - 120.0 mg/dL [facility] CERNER CONVERSION Comment:Performing Lab: RH I T1000 POC 07/17/2020 4:52 AM EST 07/17/2020 4:52 AM EST Comment:Blood Delvis Davis MD POINT OF CA RE TEST ORDERABLES Performing Organization Address [facility] de Phone Number RS CERNER CONVERSION * (ABNORMAL) POCT Glucose (07/17/2020 3:37 AM EST) POC Glucose 121.0(H) 70.0 - 120.0 mg/dL [facility] CERNER CONVERSION Comment:Performing Lab: RH I T1000 POC 07/17/2020 3:37 AM EST 07/17/2020 3:37 AM EST Comment:Blood Delvis Davis MD POINT OF CA RE TEST ORDERABLES Performing Organization Address [facility] de Phone Number RS CERNER CONVERSION * (ABNORMAL) POCT Glucose (07/17/2020 2:24 AM EST) POC Glucose 129.0(H) 70.0 - 120.0 mg/dL [facility] CERNER CONVERSION Comment:Performing Lab: RH I T1000 POC 07/17/2020 2:24 AM EST 07/17/2020 2:24 AM EST Comment:Blood Delvis Davis MD POINT OF CA RE TEST ORDERABLES Performing Organization Address City/State/[facility] Co de Phone Number [facility] [[email or web address]] CERNER CONVERSION * (ABNORMAL) POCT Glucose (07/17/2020 1:07 AM EST) POC Glucose 143.0(H) 70.0 - 120.0 mg/dL RS CERNER CONVERSION Comment:Performing Lab: RH I T1000 POC 07/17/2020 1:07 AM EST 07/17/2020 1:07 AM EST Comment:Blood Delvis Davis MD POINT OF CA RE TEST ORDERABLES Performing Organization Address [facility] de Phone Number [facility] [[email or web address]] CERNER CONVERSION * POCT Glucose (07/16/2020 10:57 PM EST) POC Glucose 115.0 70.0 - 120.0 mg/dL RS CERNER CONVERSION Comment:Performing Lab: RH I T1000 POC 07/16/2020 10:5 7 PM EST 07/16/2020 10:57 PM EST Comment:Blood Delvis Davis MD POINT OF CA RE TEST ORDERABLES Performing Organization Address [facility] Co de Phone Number [facility] [[email or web address]] CERNER CONVERSION * POCT Glucose (07/16/2020 8:53 PM EST) POC Glucose 112.0 70.0 - 120.0 mg/dL RS CERNER CONVERSION Comment:Performing Lab: RH I T1000 POC 07/16/2020 8:53 PM EST 07/16/2020 8:53 PM EST Comment:Blood Delvis Davis MD POINT OF CA RE TEST ORDERABLES Performing Organization Address City/State/[facility] Co de Phone Number [facility] [[email or web address]] CERNER CONVERSION * (ABNORMAL) POCT Glucose (07/16/2020 7:45 PM EST) POC Glucose 122.0(H) 70.0 - 120.0 mg/dL [facility] CERNER CONVERSION Comment:Performing Lab: RH I T1000 POC 07/16/2020 7:45 PM EST 07/16/2020 7:45 PM EST Comment:Blood Delvis Davis MD POINT OF CA RE TEST ORDERABLES Performing Organization Address [facility] Co de Phone Number [facility] [[email or web address]] CERNER CONVERSION * (ABNORMAL) POCT Glucose (07/16/2020 6:35 PM EST) POC Glucose 121.0(H) 70.0 - 120.0 mg/dL RS CERNER CONVERSION Comment:Performing Lab: RH I T1000 POC 07/16/2020 6:35 PM EST 07/16/2020 6:35 PM EST Comment:Blood Delvis Davis MD POINT OF CA RE TEST ORDERABLES Performing Organization Address [facility] de Phone Number RS CERNER CONVERSION * (ABNORMAL) POCT Glucose (07/16/2020 5:24 PM EST) POC Glucose 132.0(H) 70.0 - 120.0 mg/dL [facility] CERNER CONVERSION Comment:Performing Lab: RH I T1000 POC 07/16/2020 5:24 PM EST 07/16/2020 5:24 PM EST Comment:Blood Delvis Davis MD POINT OF CA RE TEST ORDERABLES Performing Organization Address City/[facility] Co de Phone Number [facility] [[email or web address]] CERNER CONVERSION * (ABNORMAL) POCT Glucose (07/16/2020 4:25 PM EST) POC Glucose 146.0(H) 70.0 - 120.0 mg/dL [facility] CERNER CONVERSION Comment:Performing Lab: RH I T1000 POC 07/16/2020 4:25 PM EST 07/16/2020 4:25 PM EST Comment:Blood Delvis Davis MD POINT OF CA RE TEST ORDERABLES Performing Organization Address City/[facility] de Phone Number [facility] [[email or web address]] CERNER CONVERSION * POCT Glucose (07/16/2020 2:24 PM EST) POC Glucose 111.0 70.0 - 120.0 mg/dL RS CERNER CONVERSION Comment:Performing Lab: RH I T1000 POC 07/16/2020 2:24 PM EST 07/16/2020 2:24 PM EST Comment:Blood Delvis Davis MD POINT OF CA RE TEST ORDERABLES Performing Organization Address [facility] Phone Number [facility] [[email or web address]] CERNER CONVERSION * (ABNORMAL) POCT Glucose (07/16/2020 1:18 PM EST) POC Glucose 124.0(H) 70.0 - 120.0 mg/dL RS CERNER CONVERSION Comment:Performing Lab: RH I T1000 POC 07/16/2020 1:18 PM EST 07/16/2020 1:18 PM EST Comment:Blood Delvis Davis MD POINT OF CA RE TEST ORDERABLES Performing Organization Address [facility] de Phone Number [facility] [[email or web address]] CERNER CONVERSION * POCT Glucose (07/16/2020 12:07 PM EST) POC Glucose 116.0 70.0 - 120.0 mg/dL RS CERNER CONVERSION Comment:Performing Lab: RH I T1000 POC 07/16/2020 12:0 7 PM EST 07/16/2020 12:07 PM EST Comment:Blood Delvis Davis MD POINT OF CA RE TEST ORDERABLES Performing Organization Address City/[facility] Co de Phone Number [facility] [[email or web address]] CERNER CONVERSION * (ABNORMAL) POCT Glucose (07/16/2020 11:02 AM EST) POC Glucose 165.0(H) 70.0 - 120.0 mg/dL [facility] CERNER CONVERSION Comment:Performing Lab: RH I T1000 POC 07/16/2020 11:0 2 AM EST 07/16/2020 11:02 AM EST Comment:Blood Delvis Davis MD POINT OF CA RE TEST ORDERABLES Performing Organization Address City/[facility] Co de Phone Number [facility] [[email or web address]] CERNER CONVERSION * (ABNORMAL) POCT Glucose (07/16/2020 10:33 AM EST) POC Glucose 195.0(H) 70.0 - 120.0 mg/dL RS CERNER CONVERSION Comment:Performing Lab: RH I T1000 POC 07/16/2020 10:3 3 AM EST 07/16/2020 10:33 AM EST Comment:Blood Delvis Davis MD POINT OF CA RE TEST ORDERABLES Performing Organization Address [facility] Co de Phone Number [facility] [[email or web address]] CERNER CONVERSION * (ABNORMAL) POCT Glucose (07/16/2020 10:11 AM EST) POC Glucose 183.0(H) 70.0 - 120.0 mg/dL [facility] CERNER CONVERSION Comment:Performing Lab: RH I T1000 POC 07/16/2020 10:1 1 AM EST 07/16/2020 10:11 AM EST Comment:Blood Delvis Davis MD POINT OF CA RE TEST ORDERABLES Performing Organization Address City/[facility] Co de Phone Number [facility] [[email or web address]] CERNER CONVERSION * POCT Glucose (07/16/2020 6:52 [...]
--- OUTSIDE RECORDS SUMMARY | 2024-01-13 21:19 | XMS_ITS | Encounter Summary ---
Author Organization Jose Alejandro Raymundolinnea [facility] Address [address] [place] [address] Care Team Providers Care [employer] Registrar Name Role Phone Unavailable Primary Care Provider Unavailabl e Encounter Details Date Type Department Care Team (Late st Contact Info) Description 07/12/2020 12:52 PM EST - 07/12/2020 11:59 PM EST Hospital Encounter RS HISTORICAL CONVERSIONS [address] [place] [address] Delvis Cheek MD [address] [address] Social History Tobacco Use Types [...] Dr. [address] [place] [phone] Martell Calderon MD [address] [facility] [address] [place] [address] TREMORS/ MEDICARE, FOR LIFE 03/28/2024 8:30 AM EDT Office Visit Primary Care - [address] [address] Cheo Santoyo DO [address] [place] [address] AWV 04/06/2024 9:45 AM EST Lab [facility] - [facility] [address] [facility] [address] [place] [address] CBCMP,CEA,FEST 04/06/2024 10:15 AM EST Office Visit [facility] - [facility] [address] [facility] [address] [place] [address] Georgi Butterfield MD [address] [place] [address] 6 MTH FU W/LABS, REV SCAN 04/13/2024 9:30 AM EST Office Visit Surgical Oncology - [facility] [address] [facility] [address] [place] [address] Delvis Cheek MD [address] [facility] [address] [place] [address] 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 It has not been cleared or approved [...] media containing nasopharyngeal swabs followed by reverse licensed psychologist director and real-time PCR on a 41st Parameter 12K Flex. Fluorescent probe sequences ([employer] COVID-19 Combo Kit) are used to amplify [...] patient's medical history. This test performed by [facility], [employer], [place] [address] CLIA#: [id number] Interpretive Data: Performing Lab: ?? Dominick 07/12/2020 11:0 0 AM EST 07/12/2020 12:53 PM EST Comment:Nasopharyng Delvis Davis MD MICROBIOLOG Y - GENERAL ORDERABLES Performing Organization Address City/State/[facility] Co de Phone Number [facility] CERNER CONVERSION documented in this encounter Visit Diagnoses Not on filedocumented in this encounter
--- OUTSIDE RECORDS SUMMARY | 2024-01-13 21:19 | XMS_ITS | Encounter Summary ---
Author Organization Jose Alejandro Pantoja [facility] Address [address] [place] [address] Care Team Providers Care Third Cook Name Role Phone YarelisCheo friend Moshe REYES Primary Care Provider [phone] Encounter Details Date Type Department Care Team [...] Visit Neurology - [facility] [address] [facility] [address] [place] [address] Martell Calderon MD 2144 [facility] [address] [place] [address] TREMORS/ MEDICARE, FOR LIFE 03/28/2024 8:30 AM EDT Office Visit Primary Care - [address] [phone] Cheo Santoyo, [address] [address] AWV 04/06/2024 9:45 AM EST Lab [facility] - [facility] [address] [facility] [address] [place] [address] CBCMP,CEA,FEST 04/06/2024 10:15 AM EST Office Visit [facility] - [facility] [address] [facility] [address] [place] [address] Georgi Butterfield MD [address] [place] [address] 6 MTH FU W/LABS, REV SCAN 04/13/2024 9:30 AM EST Office Visit Surgical Oncology - [facility] [address] 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 [address] [place] [address] Karly Bautista, BURT 180 [facility] 301 [place] [address] annual visit from date of surgery May/Jul 2024 for bilateral TKA and right LIZZ with Karly. documented as of this encounter Visit Diagnoses Not on filedocumented in this encounter Care Teams Third Cook Relationship Specialty Start Date End Date Cheo Santooy DO [address] [place] [phone] PCP - General Family Medicine 07/06/23 documented as of this encounter
--- OUTSIDE RECORDS SUMMARY | 2024-01-13 21:19 | XMS_ITS | Encounter Summary ---
Author Organization Jose Alejandro Pantoja [facility] Address [address] [employer] [place] [address] Care Team Providers Care Elementary Teacher Name Role Phone YarelisCheo friend Moshe REYES Primary Care Provider [phone] Encounter Details Date Type Department Care Team [...] - [facility] [address] [facility] [address] [place] [address] Martell Calderon MD 2144 [facility] [address] [place] [address] TREMORS/ MEDICARE, FOR LIFE 03/28/2024 8:30 AM EDT Office Visit Primary Care - [address] [phone] Cheo Santoyo, [address] [address] AWV 04/06/2024 9:45 AM EST [facility] - [facility] [address] [facility] [address] [place] [address] CBCMP,CEA,FEST 04/06/2024 10:15 AM EST Office Visit [facility] - [facility] [address] [facility] [address] [place] [address] Georgi Butterfield MD [address] [place] [address] 6 MTH FU W/LABS, REV SCAN 04/13/2024 9:30 AM EST Office Visit Surgical Oncology - 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 documented as of this encounter Visit Diagnoses Not on filedocumented in this encounter Care Teams Elementary Teacher Relationship Specialty Start Date End Date Cheo Santoyo DO [address] [place] [phone] PCP - General Family Medicine 07/06/23 documented as of this encounter
--- OUTSIDE RECORDS SUMMARY | 2024-01-13 21:19 | XMS_ITS | Encounter Summary ---
Author Organization Jose Alejandro Raymundolinnea [facility] Address [address] [place] [address] Care Team Providers Care Avid Editor Name Role Phone Unavailable Primary Care Provider Unavailabl e Encounter Details Date Type Department Care Team (Late st Contact Info) Description 07/21/2021 8:10 AM EST - 07/21/2021 11:49 AM EST Hospital Encounter RS HISTORICAL CONVERSIONS [address] [place] [address] aMurice Wood II, MD [address] [facility] [address] [place] [phone] Social History Tobacco Use Types Packs/Day Years [...] Dr. [address] [place] [phone] Martell Calderon MD 2144 [facility] [address] [place] [address] TREMORS/ MEDICARE, FOR LIFE 03/28/2024 8:30 AM EDT Office Visit Primary Care - [address] [phone] Cheo Santoyo DO 11[address] [place] [phone] AWV 04/06/2024 9:45 AM EST Lab [facility] - [facility] [address] [facility] [address] [place] [address] CBCMP,CEA,FEST 04/06/2024 10:15 AM EST Office Visit [facility] - [facility] 2084 [facility] [address] [place] [address] Georgi Butterfield MD [address] [place] [address] 6 MTH FU W/LABS, REV SCAN 04/13/2024 9:30 AM EST Office Visit Surgical Oncology - [facility] 20[address] [facility] [address] [place] [address] Delvis Cheek MD 125 [facility] 660 [place] [address] 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
--- OUTSIDE RECORDS SUMMARY | 2024-01-13 21:19 | XMS_ITS | Encounter Summary ---
Author Organization Jose Alejandro Pantoja [facility] Address [address] [place] [address] Care Team Providers Care Desktop Specialist Name Role Phone Carter Santoyoony Moshe REYES Primary Care Provider [phone] Encounter Details Date Type Department Care Team (Late st Contact Info) Description 01/13/2021 [facility] Historical Encounter [facility] AMB HISTORICAL Georgi Butterfield MD [address] [place] [address] Social History Tobacco Use Types Packs/Day Years [...] AM EDT Office Visit [facility] 2[address] [facility] [address] [place] [address] Martell Calderon MD 214 [facility] [address] [place] [address] TREMORS/ MEDICARE, FOR LIFE 03/28/2024 8:30 AM EDT Office Visit Primary Care - [address] [address] [place] [address] [place] [address] AWV 04/06/2024 9:45 AM EST Lab [facility] [address] [facility] [address] [place] [address] CBCMP,CEA,FEST 04/06/2024 10:15 AM EST Office Visit [place] 20[address] [facility] [address] [place] [address] Georgi Butterfield MD [address] [place] [address] 6 MTH FU W/LABS, REV SCAN 04/13/2024 9:30 AM EST Office Visit Surgical Oncology - [facility] [address] [facility] [address] [place] [address] Delvis Cheek MD 125 [facility] 660 [place] [address] 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 documented as of this encounter Visit Diagnoses Not on filedocumented in this encounter Care Teams Desktop Specialist Relationship Specialty Start Date End Date Cheo Santoyo DO [address] [place] [phone] PCP - General Family Medicine 07/06/23 documented as of this encounter
--- OUTSIDE RECORDS SUMMARY | 2024-01-13 21:19 | XMS_ITS | Encounter Summary ---
Author Organization Jose Alejandro Pantoja [facility] Address [address] [place] [address] Care Team Providers Care Laundry Clerk Name Role Phone YaerlisCheo friend Moshe REYES Primary Care Provider [phone] Encounter Details Date Type Department Care Team [...] Neurology - [facility] [address] [facility] [address] [place] [address] Martell Calderon MD 2144 [facility] [address] [place] [address] TREMORS/ MEDICARE, FOR LIFE 03/28/2024 8:30 AM EDT Office Visit Primary Care - [address] [phone] Cheo Santoyo, [address] [address] AWV 04/06/2024 9:45 AM EST [facility] - [facility] 20[address] [facility] [address] [place] [address] CBCMP,CEA,FEST 04/06/2024 10:15 AM EST Office Visit [facility] - [facility] [address] [facility] [address] [place] [address] Georgi Butterfield MD [address] [place] [address] 6 MTH FU W/LABS, REV SCAN 04/13/2024 9:30 AM EST Office Visit Surgical Oncology - [facility] [address] [facility] [address] [place] [address] Delvis Cheek MD 125 [facility] 660 [place] [address] 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 documented as of this encounter Visit Diagnoses Not on filedocumented in this encounter Care Teams Laundry Clerk Relationship Specialty Start Date End Date Cheo Santoyo DO [address] [place] [phone] PCP - General Family Medicine 07/06/23 documented as of this encounter
--- OUTSIDE RECORDS SUMMARY | 2024-01-13 21:19 | XMS_ITS | Encounter Summary ---
Author Organization Jose Alejandro Pantoja [facility] Address [address] [place] [address] Care Team Providers Care Mother Baby Rn Name Role Phone Carter Santoyoony Moshe REYES Primary Care Provider [phone] Encounter Details Date Type Department Care Team (Late st Contact Info) Description 03/24/2021 Legacy Historical Encounter [facility] HEM[facility]COLOGY AMB HISTORICAL Georgi Butterfield MD [address] [place] [address] Social History Tobacco Use Types Packs/Day Years [...] 9:00 AM EDT Office [facility] 2144 [facility] [address] [place] [address] Martell Calderon MD 214 [facility] [address] [place] [address] TREMORS/ MEDICARE, FOR LIFE 03/28/2024 8:30 AM EDT Office Visit Primary Care - [address] [address] [place] [address] [place] [address] AWV 04/06/2024 9:45 AM EST Lab [place] [facility] 2084 [facility] [address] [place] [address] CBCMP,CEA,FEST 04/06/2024 10:15 AM EST Office Visit [place] [facility] - [facility] 2084 [facility] [address] [place] [address] Georgi Butterfield MD [address] [place] [address] 6 MTH FU W/LABS, REV SCAN 04/13/2024 9:30 AM EST Office Visit Surgical Oncology - 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 [address] [place] [address] Karly Bautista, BURT 180 [facility] 301 [place] [address] annual visit from date of surgery May/Jul 2024 for bilateral TKA and right LIZZ with Karly. documented as of this encounter Visit Diagnoses Not on filedocumented in this encounter Care Teams Mother Baby Rn Relationship Specialty Start Date End Date Cheo Santoyo DO [address] [place] [phone] PCP - General Family Medicine 07/06/23 documented as of this encounter
--- OUTSIDE RECORDS SUMMARY | 2024-01-13 21:19 | XMS_ITS | Encounter Summary ---
Author Organization Jose Alejandro Raymundolinnea [facility] Address [address] [place] [address] Care Team Providers Care Prepared Foods Service Team Member Name Role Phone Cheo Santoyo Primary Care Provider [phone] Encounter Details Date Type Department Care Team (Late st Contact Info) Description 05/09/2021 Legacy Historical Encounter [facility] HISTORICAL CONVERSIONS [address] [place], [place] [id number] Maurice Wood II, MD 9 [facility] [address] [place] [phone] Social History Tobacco Use Types Packs/Day Years [...] Office Visit Neurology - [facility] 2144 [facility] [address] [place] [address] Martell Calderon MD 214 [facility] [address] [place] [address] TREMORS/ MEDICARE, FOR LIFE 03/28/2024 8:30 AM EDT Office Visit Primary Care - [address] [address] [place] [address] [place] [address] AWV 04/06/2024 9:45 AM EST Lab [facility] - [facility] 2084 [facility] [address] [place] [address] CBCMP,CEA,FEST 04/06/2024 10:15 AM EST Office Visit [place] [facility] - [facility] 2084 [facility] [address] [place] [address] Georgi Butterfield MD [address] [place] [address] 6 MTH FU W/LABS, REV SCAN 04/13/2024 9:30 AM EST Office Visit Surgical Oncology - [facility] [address] [facility] [address] [place] [address] Delvis Cheek MD 125 [facility] 660 [place] [address] 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 documented as of this encounter Visit Diagnoses Not on filedocumented in this encounter Care Teams Prepared Foods Service Team Member Relationship Specialty Start Date End Date Cheo Santoyo DO [address] [place] [phone] PCP - General Family Medicine 07/06/23 documented as of this encounter
--- OUTSIDE RECORDS SUMMARY | 2024-01-13 21:19 | XMS_ITS | Encounter Summary ---
Author Organization Jose Alejandro Pantoja [facility] Address [address] [place] [address] Care Team Providers Care Legal Operations Manager Name Role Phone YarelisCheo friend Moshe REYES Primary Care Provider [phone] Encounter Details Date Type Department Care Team [...] - [facility] 2144 [facility] [address] [place] [address] Martell Calderon MD 2144 [facility] [address] [place] [address] TREMORS/ MEDICARE, FOR LIFE 03/28/2024 8:30 AM EDT Office Visit Primary Care - [address] [phone] Cheo Santoyo, [address] [address] AWV 04/06/2024 9:45 AM EST Lab [facility] - [facility] 20[address] [facility] [address] [place] [address] CBCMP,CEA,FEST 04/06/2024 10:15 AM EST Office Visit [facility] - [facility] 2084 [facility] [address] [place] [address] Georgi Butterfield MD [address] [place] [address] 6 MTH FU W/LABS, REV SCAN 04/13/2024 9:30 AM EST Office Visit Surgical Oncology - [facility] 2084 [facility] [address] [place] [address] Delvis Cheek MD 125 [facility] 660 [place] [address] 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 [address] [place] [address] Karly Bautista, BURT 180 [facility] 301 [place] [address] annual visit from date of surgery May/Jul 2024 for bilateral TKA and right LIZZ with Karly. documented as of this encounter Visit Diagnoses Not on filedocumented in this encounter Care Teams Legal Operations Manager Relationship Specialty Start Date End Date Cheo Santoyo DO [address] [place] [phone] PCP - General Family Medicine 07/06/23 documented as of this encounter
--- OUTSIDE RECORDS SUMMARY | 2024-01-13 21:19 | XMS_ITS | Encounter Summary ---
Author Organization Jose Alejandro Pantoja [facility] Address [address] [place] [address] Care Team Providers Care Stator Connector Name Role Phone Carter Santoyoony Moshe REYES Primary Care Provider [phone] Encounter Details Date Type Department Care Team (Late st Contact Info) Description 07/29/2020 Legacy Historical Encounter [facility] AMB HISTORICAL Georgi Butterfield MD [address] [place] [address] Social History Tobacco Use Types Packs/Day Years [...] 9:00 AM EDT [facility] 2144 [facility] [address] [place] [address] Martell Calderon MD 214 [facility] [address] [place] [address] TREMORS/ MEDICARE, FOR LIFE 03/28/2024 8:30 AM EDT Office Visit Primary Care - [address] [address] [place] [address] [place] [address] AWV 04/06/2024 9:45 AM EST [facility] [place] [facility] - [facility] [place] 2084 [facility] [address] [place] [address] CBCMP,CEA,FEST 04/06/2024 10:15 AM EST Office Visit [place] [facility] - [facility] [place] 2084 [facility] [address] [place] [address] Georgi Butterfield MD [address] [place] [address] 6 MTH FU W/LABS, REV SCAN 04/13/2024 9:30 AM EST Office Visit Surgical Oncology - [facility] [address] [facility] [address] [place] [address] Delvis Cheek MD 125 [facility] 660 [place] [address] 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 [address] [place] [address] Karly Bautista, BURT 180 [facility] 301 [place] [address] annual visit from date of surgery May/Jul 2024 for bilateral TKA and right LIZZ with Karly. documented as of this encounter Visit Diagnoses Not on filedocumented in this encounter Care Teams Stator Connector Relationship Specialty Start Date End Date Cheo Santoyo DO [address] [place] [phone] PCP - General Family Medicine 07/06/23 documented as of this encounter
--- OUTSIDE RECORDS SUMMARY | 2024-01-13 21:19 | XMS_ITS | Encounter Summary ---
Author Organization Jose Alejandro Pantoja [facility] Address [address] [place] [address] Care Team Providers Care Rock Cutter Name Role Phone Cheo Santoyo Moshe REYES Primary Care Provider [phone] Encounter Details Date Type Department Care Team [...] Office Visit Neurology - [facility] [address] [facility] [address] [place] [address] Martell Calderon MD 2144 [facility] [address] [place] [address] TREMORS/ MEDICARE, FOR LIFE 03/28/2024 8:30 AM EDT Office Visit Primary Care - [address] [phone] Cheo Santoyo, [address] [address] AWV 04/06/2024 9:45 AM EST [facility] - [facility] 2084 [facility] [address] [place] [address] CBCMP,CEA,FEST 04/06/2024 10:15 AM EST Office Visit [facility] - [facility] 2084 [facility] [address] [place] [address] Georgi Butterfield MD [address] [place] [address] 6 MTH FU W/LABS, REV SCAN 04/13/2024 9:30 AM EST Office Visit Surgical Oncology - [facility] 2084 [facility] [address] [place] [address] Delvis Cheek MD 125 [facility] 660 [place] [phone] 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 documented as of this encounter Visit Diagnoses Not on filedocumented in this encounter Care Teams Rock Cutter Relationship Specialty Start Date End Date Cheo Santoyo DO [address] [place] [phone] PCP - General Family Medicine 07/06/23 documented as of this encounter
--- OUTSIDE RECORDS SUMMARY | 2024-01-13 21:19 | XMS_ITS | Encounter Summary ---
Author Organization Jose Alejandro Pantoja [facility] Address [address] [place] [address] Care Team Providers Care Leasing Representative Name Role Phone Carter Santoyoony Moshe REYES Primary Care Provider [phone] Encounter Details Date Type Department Care Team (Late st Contact Info) Description 10/09/2020 [facility] Historical Encounter [facility] HISTORICAL Georgi Butterfield MD [address] [place] [address] Social History Tobacco Use Types Packs/Day Years [...] [facility] [address] [facility] [address] [place] [address] Martell Calderon MD 214 [facility] [address] [place] [address] TREMORS/ MEDICARE, FOR LIFE 03/28/2024 8:30 AM EDT Office Visit Primary Care - [address] [address] [place] [address] [place] [address] AWV 04/06/2024 9:45 AM EST Lab [place] [facility] - [facility] [place] [address] [facility] [address] [place] [address] CBCMP,CEA,FEST 04/06/2024 10:15 AM EST Office Visit [place] [facility] - [facility] [place] [address] [facility] [address] [place] [address] Georgi Butterfield MD [address] [place] [address] 6 MTH FU W/LABS, REV SCAN 04/13/2024 9:30 AM EST Office Visit Surgical Oncology - [facility] [address] [facility] [address] [place] [address] Delvis Cheek MD 125 [facility] 660 [place] [address] 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 [address] [place] [address] Karly Bautista, BURT 180 [facility] 301 [place] [address] annual visit from date of surgery May/Jul 2024 for bilateral TKA and right LIZZ with Karly. documented as of this encounter Visit Diagnoses Not on filedocumented in this encounter Care Teams Leasing Representative Relationship Specialty Start Date End Date Cheo Santoyo DO [address] [place] [phone] PCP - General Family Medicine 07/06/23 documented as of this encounter
--- OUTSIDE RECORDS SUMMARY | 2024-01-13 21:19 | XMS_ITS | Encounter Summary ---
Author Organization Jose Alejandro Pantoja [facility] Address [address] [place] [address] Care Team Providers Care Bag Checker Name Role Phone Carter Santoyoony Moshe REYES Primary Care Provider [phone] Encounter Details Date Type Department Care Team (Late st Contact Info) Description 09/11/2020 Legacy Historical Encounter [facility]ORICAL Georgi Butterfield MD [address] [place] [address] Social History Tobacco Use Types Packs/Day Years [...] 9:00 AM EDT Office [facility] [address] [facility] [address] [place] [address] Martell Calderon MD 214 [facility] [address] [place] [address] TREMORS/ MEDICARE, FOR LIFE 03/28/2024 8:30 AM EDT Office Visit Primary Care - [address] [address] [place] [address] [place] [address] AWV 04/06/2024 9:45 AM EST Lab [place] [facility] 20[address] [facility] [address] [place] [address] CBCMP,CEA,FEST 04/06/2024 10:15 AM EST Office Visit [place] 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 [address] [place] [address] Karly Bautista, BURT 180 [facility] 301 [place] [address] annual visit from date of surgery May/Jul 2024 for bilateral TKA and right LIZZ with Karly. documented as of this encounter Visit Diagnoses Not on filedocumented in this encounter Care Teams Bag Checker Relationship Specialty Start Date End Date Cheo Santoyo DO [address] [place] [phone] PCP - General Family Medicine 07/06/23 documented as of this encounter
--- OUTSIDE RECORDS SUMMARY | 2024-01-13 21:19 | XMS_ITS | Encounter Summary ---
Author Organization Jose Alejandro [facility]olin[facility] Address [address] [place] [address] Care Team Providers Care Stagecraft Professor Name Role Phone Unavailable Primary Care Provider Unavailabl e Encounter Details Date Type Department Care Team (Late st Contact Info) Description 07/17/2021 10:32 AM EST - 07/17/2021 11:59 PM EST Hospital Encounter RS HISTORICAL CONVERSIONS [address] [place] [address] Maurice Wood II, MD 61[address] [facility] [address] [place] [phone] Social History Tobacco Use Types Packs/Day Years [...] Dr. [address] [place] [address] Martell Calderon MD 2144 [facility] [address] [place] [address] TREMORS/ MEDICARE, FOR LIFE 03/28/2024 8:30 AM EDT Office Visit Primary Care - [address] [phone] Cheo Santoyo DO 1112 [place] [address] AWV 04/06/2024 9:45 AM EST [facility] [place] [facility] - [facility] 20[address] [facility] [address] [place] [address] CBCMP,CEA,FEST 04/06/2024 10:15 AM EST Office Visit [place] [facility] - [facility] [address] [facility] [address] [place] [address] Georgi Butterfield MD [address] [place] [address] 6 MTH FU W/LABS, REV SCAN 04/13/2024 9:30 AM EST Office Visit Surgical Oncology - [facility] 2084 [facility] [address] [place] [address] Delvis Cheek MD 125 [facility] 660 [place] [address] 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
--- OUTSIDE RECORDS SUMMARY | 2024-01-13 21:19 | XMS_ITS | Encounter Summary ---
Author Organization Jose Alejandro Pantoja [facility] Address [address] [place] [address] Care Team Providers Care Elevator Troubleshooter Name Role Phone YarelisCheo friend Moshe REYES Primary Care Provider [phone] Encounter Details Date Type Department Care Team [...] Visit Neurology - [facility] 2144 [facility] [address] [place] [address] Martell Calderon MD 2144 [facility] [address] [place] [address] TREMORS/ MEDICARE, FOR LIFE 03/28/2024 8:30 AM EDT Office Visit Primary Care - [address] [phone] Cheo Santoyo, [address] [address] AWV 04/06/2024 9:45 AM EST Lab [place] [facility] - [facility] [address] [facility] [address] [place] [address] CBCMP,CEA,FEST 04/06/2024 10:15 AM EST Office Visit [place] [facility] - [facility] 2084 [facility] [address] [place] [address] Georgi Butterfield MD [address] [place] [address] 6 MTH FU W/LABS, REV SCAN 04/13/2024 9:30 AM EST Office Visit Surgical Oncology - [facility] 2084 [facility] [address] [place] [address] Delvis Cheek MD 125 [facility] 660 [place] [address] 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 [address] [place] [address] Karly Bautista, BURT 180 [facility] 301 [place] [address] annual visit from date of surgery May/Jul 2024 for bilateral TKA and right LIZZ with Karly. documented as of this encounter Visit Diagnoses Not on filedocumented in this encounter Care Teams Elevator Troubleshooter Relationship Specialty Start Date End Date Cheo Santoyo DO [address] [place] [phone] PCP - General Family Medicine 07/06/23 documented as of this encounter
--- OUTSIDE RECORDS SUMMARY | 2024-01-13 21:19 | XMS_ITS | Encounter Summary ---
Author Organization Jose Alejandro Pantoja [facility] Address [address] [place] [address] Care Team Providers Care Rewriter Name Role Phone YarelisCheo friend Moshe REYES Primary Care Provider [phone] Encounter Details Date Type Department Care Team [...] Visit Neurology - [facility] 2144 [facility] [address] [place] [address] Martell Calderon MD 2144 [facility] [address] [place] [address] TREMORS/ MEDICARE, FOR LIFE 03/28/2024 8:30 AM EDT Office Visit Primary Care - [address] [phone] Cheo Santoyo, [address] [address] AWV 04/06/2024 9:45 AM EST Lab [place] [facility] - [facility] 2084 [facility] [address] [place] [address] CBCMP,CEA,FEST 04/06/2024 10:15 AM EST Office Visit [place] [facility] - [facility] 2084 [facility] [address] [place] [address] Georgi Butterfield MD [address] [place] [address] 6 MTH FU W/LABS, REV SCAN 04/13/2024 9:30 AM EST Office Visit Surgical Oncology - [facility] 2084 [facility] [address] [place] [address] Delvis Cheek MD 125 [facility] 660 [place] [address] 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 [address] [place] [phone] Karly Bautista, BURT 180 [facility] 301 [place] [address] annual visit from date of surgery May/Jul 2024 for bilateral TKA and right LIZZ with Karly. documented as of this encounter Visit Diagnoses Not on filedocumented in this encounter Care Teams Rewriter Relationship Specialty Start Date End Date Cheo Santoyo DO [address] [place] [phone] PCP - General Family Medicine 07/06/23 documented as of this encounter
--- OUTSIDE RECORDS SUMMARY | 2024-01-13 21:19 | XMS_ITS | Encounter Summary ---
Author Organization Jose Alejandro Pantoja [facility] Address [address] [place] [address] Care Team Providers Care Courtesy Bus Driver Name Role Phone Cheo Santoyo Primary Care Provider [phone] Encounter Details Date Type Department Care Team (Late st Contact Info) Description 10/24/2020 Legacy Historical Encounter [facility] HISTORICAL CONVERSIONS [address] [place] [address] Delvis Cheek MD [address] [address] Social History Tobacco Use Types [...] - [facility] 2144 [facility] [address] [place] [address] Martell Calderon MD 214 [facility] [address] [place] [address] TREMORS/ MEDICARE, FOR LIFE 03/28/2024 8:30 AM EDT Office Visit Primary Care - [address] [address] [place] [address] [place] [address] AWV 04/06/2024 9:45 AM EST Lab [place] [facility] - [facility] 2084 [facility] [address] [place] [address] CBCMP,CEA,FEST 04/06/2024 10:15 AM EST Office Visit [place] [facility] - [facility] 2084 [facility] [address] [place] [address] Georgi Butterfield MD 3510 [facility] [place] [address] 6 MTH FU W/LABS, REV SCAN 04/13/2024 9:30 AM EST Office Visit Surgical Oncology - [facility] 20[address] [facility] [place] [address] Delvis Cheek MD 125 [facility] 660 [place] [address] 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 documented as of this encounter Visit Diagnoses Not on filedocumented in this encounter Care Teams Courtesy Bus Driver Relationship Specialty Start Date End Date Cheo Santoyo DO [address] [place] [phone] PCP - General Family Medicine 07/06/23 documented as of this encounter
--- OUTSIDE RECORDS SUMMARY | 2024-01-13 21:19 | XMS_ITS | Encounter Summary ---
Author Organization Jose Alejandro Pantoja [facility] Address [address] [place] [address] Care Team Providers Care Block Stacker Name Role Phone YarelisCheo friend Moshe REYES Primary Care Provider [phone] Encounter Details Date Type Department Care Team [...] Visit Neurology - [facility] 2144 [facility] [address] [place] [address] Martell Calderon MD 2144 [facility] [place] [address] [place] [address] TREMORS/ MEDICARE, FOR LIFE 03/28/2024 8:30 AM EDT Office Visit Primary Care - [address] [phone] Cheo Santoyo, [address] [address] AWV 04/06/2024 9:45 AM EST Lab [place] [facility] - [facility] 2084 [facility] [address] [place] [address] CBCMP,CEA,FEST 04/06/2024 10:15 AM EST Office Visit [place] [facility] - [facility] 2084 [facility] [address] [place] [address] Georgi Butterfield MD [address] [place] [address] 6 MTH FU W/LABS, REV SCAN 04/13/2024 9:30 AM EST Office Visit Surgical Oncology - [facility] 2084 [facility] [address] [place] [address] Delvis Cheek MD 125 [facility] 660 [place] [address] 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 documented as of this encounter Visit Diagnoses Not on filedocumented in this encounter Care Teams Block Stacker Relationship Specialty Start Date End Date Cheo Santoyo DO [address] [place] [phone] PCP - General Family Medicine 07/06/23 documented as of this encounter
--- OUTSIDE RECORDS SUMMARY | 2024-01-13 21:19 | XMS_ITS | Encounter Summary ---
Author Organization Jose Alejandro Raymundolinnea [facility] Address [address] [place] [address] Care Team Providers Care Home Health Registered Nurse Name Role Phone Unavailable Primary Care Provider Unavailabl e Encounter Details Date Type Department Care Team (Late st Contact Info) Description 03/28/2021 9:15 AM EDT - 03/28/2021 11:59 PM EDT Hospital Encounter [facility] HISTORICAL CONVERSIONS [address] [place], [place] [address] Georgi Butterfield MD 3510 [facility] [address] [place] [address] Social History Tobacco Use Types Packs/Day Years [...] Office Visit Neurology - Maryan [address]sen Dr. [address] [place] [address] Martell Calderon MD 2144 [facility] [address] [place] [address] TREMORS/ MEDICARE, FOR LIFE 03/28/2024 8:30 AM EDT Office Visit Primary Care - [address] [address] [place] [address] [place] [address] AWV 04/06/2024 9:45 AM EST Lab [place] [facility] - [facility] 2084 [facility] [address] [place] [address] CBCMP,CEA,FEST 04/06/2024 10:15 AM EST Office Visit [place] [facility] - [facility] 2084 [facility] [address] [place] [address] Georgi Butterfield MD [address] [place] [address] 6 MTH FU W/LABS, REV SCAN 04/13/2024 9:30 AM EST Office Visit Surgical Oncology - [facility] 2084 [facility] [address] [place] [address] Delvis Cheek MD 125 [facility] 660 [place] [address] 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
--- OUTSIDE RECORDS SUMMARY | 2024-01-13 21:19 | XMS_ITS | Encounter Summary ---
Author Organization Jose Alejandro Pantoja [facility] Address [address] [place] [address] Care Team Providers Care Sewer Pipe Cleaner Name Role Phone YarelisCheo friend Moshe REYES Primary Care Provider [phone] Encounter Details Date Type Department Care Team [...] [facility] 2144 [facility] [address] [place] [address] Martell Calderon MD 2144 [facility] [address] [place] [address] TREMORS/ MEDICARE, FOR LIFE 03/28/2024 8:30 AM EDT Office Visit Primary Care - [address] [phone] Cheo Santoyo, [address] [address] AWV 04/06/2024 9:45 AM EST Lab [place] [facility] - [facility] 2084 [facility] [address] [place] [address] CBCMP,CEA,FEST 04/06/2024 10:15 AM EST Office Visit [place] [facility] - [facility] 2084 [facility] [address] [place] [address] Georgi Butterfield MD [address] [place] [address] 6 MTH FU W/LABS, REV SCAN 04/13/2024 9:30 AM EST Office Visit Surgical Oncology - 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 documented as of this encounter Visit Diagnoses Not on filedocumented in this encounter Care Teams Sewer Pipe Cleaner Relationship Specialty Start Date End Date Cheo Santoyo DO [address] [place] [phone] PCP - General Family Medicine 07/06/23 documented as of this encounter
--- OUTSIDE RECORDS SUMMARY | 2024-01-13 21:19 | XMS_ITS | Encounter Summary ---
Author Organization Jose Alejandro Pantoja [facility] Address [address] [place] [address] Care Team Providers Care Pickle Pumper Name Role Phone YarelisCheo friend Moshe REYES Primary Care Provider [phone] Encounter Details Date Type Department Care Team [...] Visit Neurology - [facility] [address] [facility] [address] [place] [address] Martell Calderon MD 2144 [facility] [address] [place] [address] TREMORS/ MEDICARE, FOR LIFE 03/28/2024 8:30 AM EDT Office Visit Primary Care - [address] [phone] Cheo Santoyo, [address] [address] AWV 04/06/2024 9:45 AM EST Lab [place] [facility] - [facility] 2084 [facility] [address] [place] [address] CBCMP,CEA,FEST 04/06/2024 10:15 AM EST Office Visit [place] [facility] - [facility] 2084 [facility] [address] [place] [address] Georgi Butterfield MD [address] [place] [address] 6 MTH FU W/LABS, REV SCAN 04/13/2024 9:30 AM EST Office Visit Surgical Oncology - [facility] 2084 [facility] [address] [place] [address] Delvis Cheek MD 125 [facility] 660 [place] [address] 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 [address] [place] [address] Karyl Bautista, BURT 180 [facility] 301 [place] [address] annual visit from date of surgery May/Jul 2024 for bilateral TKA and right LIZZ with Karly. documented as of this encounter Visit Diagnoses Not on filedocumented in this encounter Care Teams Pickle Pumper Relationship Specialty Start Date End Date Cheo Santoyo DO [address] [place] [phone] PCP - General Family Medicine 07/06/23 documented as of this encounter
--- OUTSIDE RECORDS SUMMARY | 2024-01-13 21:19 | XMS_ITS | Encounter Summary ---
Author Organization Jose Alejandro Pantoja [facility] Address [address] [place] [address] Care Team Providers Care Bit Sharpener Operator Name Role Phone Carter Santoyoony Moshe REYES Primary Care Provider [phone] Encounter Details Date Type Department Care Team (Late st Contact Info) Description 04/07/2021 [facility] Historical Encounter [facility] AMB HISTORICAL Georgi Butterfield MD [address] [place] [address] Social History Tobacco Use Types Packs/Day Years [...] EDT Office Visit [facility] - [facility] [address] [facility] [address] [place] [address] Martell Calderon MD 214 [facility] [address] [place] [address] TREMORS/ MEDICARE, FOR LIFE 03/28/2024 8:30 AM EDT Office Visit Primary Care - [address] [address] [place] [address] [place] [address] AWV 04/06/2024 9:45 AM EST [facility] [address] [facility] [address] [place] [address] CBCMP,CEA,FEST 04/06/2024 10:15 AM EST Office Visit [place] 20[address] [facility] [address] [place] [address] Georgi Butterfield MD [address] [place] [address] 6 MTH FU W/LABS, REV SCAN 04/13/2024 9:30 AM EST Office Visit Surgical Oncology - [facility] [address] [facility] [address] [place] [address] Delvis Cheek MD 125 [facility] 660 [place] [address] 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 [address] [place] [address] Karly Bautista, BURT 180 [facility] [address] [place] [address] annual visit from date of surgery May/Jul 2024 for bilateral TKA and right LIZZ with Karly. documented as of this encounter Visit Diagnoses Not on filedocumented in this encounter Care Teams Bit Sharpener Operator Relationship Specialty Start Date End Date Cheo Santoyo DO [address] [place] [phone] PCP - General Family Medicine 07/06/23 documented as of this encounter
--- OUTSIDE RECORDS SUMMARY | 2024-01-13 21:19 | XMS_ITS | Encounter Summary ---
Author Organization Jose Alejandro Pantoja [facility] Address [address] [place] [address] Care Team Providers Care Dishing Machine Operator Name Role Phone Cheo Santoyo Primary Care Provider [phone] Encounter Details Date Type Department Care Team (Late st Contact Info) Description 07/25/2020 Legacy Historical Encounter [facility] HISTORICAL CONVERSIONS [address] [place] [address] Delvis Cheek MD [address] [address] Social History Tobacco Use Types [...] Office Visit Neurology - [facility] [address] [facility] [address] [place] [address] Martell Calderon MD 214 [facility] [address] [place] [address] TREMORS/ MEDICARE, FOR LIFE 03/28/2024 8:30 AM EDT Office Visit Primary Care - [address] [address] [place] [address] [place] [address] AWV 04/06/2024 9:45 AM EST Lab [facility] [facility] - [facility] 20[address] [facility] [address] [place] [address] CBCMP,CEA,FEST 04/06/2024 10:15 AM EST Office Visit [place] - [facility] 20[address] [facility] [address] [place] [address] Georgi Butterfield MD [address] [facility] [address] [place] [address] 6 MTH FU W/LABS, REV SCAN 04/13/2024 9:30 AM EST Office Visit Surgical Oncology - [facility] [address] [facility] [address] [place] [address] Delvis Cheek MD 125 [facility] 660 [place] [address] 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 [address] [place] [address] Karly Bautista, PA [address] [place] [address] annual visit from date of surgery May/Jul 2024 for bilateral TKA and right LIZZ with Karly. documented as of this encounter Visit Diagnoses Not on filedocumented in this encounter Care Teams Dishing Machine Operator Relationship Specialty Start Date End Date Cheo Santoyo DO [address] [place] [phone] PCP - General Family Medicine 07/06/23 documented as of this encounter
--- OUTSIDE RECORDS SUMMARY | 2024-01-13 21:19 | XMS_ITS | Encounter Summary ---
Author Organization Jose Alejandro Pantoja [facility] Address [address] [place] [address] Care Team Providers Care Car Cooper Name Role Phone Cheo Santoyo Primary Care Provider [phone] Encounter Details Date Type Department Care Team (Late st Contact Info) Description 07/11/2021 Legacy Historical Encounter [facility] HISTORICAL CONVERSIONS [address] [place], [place] [id number] Maurice Wood II, MD 8 [facility] [address] [place] [address] Social History Tobacco Use Types Packs/Day Years [...] Visit Neurology - [facility] 2[address] [facility] [address] [place] [address] Martell Calderon MD 214 [facility] [address] [place] [address] TREMORS/ MEDICARE, FOR LIFE 03/28/2024 8:30 AM EDT Office Visit Primary Care - [address] [address] [place] [address] [place] [address] AWV 04/06/2024 9:45 AM EST [facility] - [facility] 2084 [facility] [address] [place] [address] CBCMP,CEA,FEST 04/06/2024 10:15 AM EST Office Visit [place] [facility] - [facility] 2084 [facility] [address] [place] [address] Georgi Butterfield MD [address] [place] [address] 6 MTH FU W/LABS, REV SCAN 04/13/2024 9:30 AM EST Office Visit Surgical Oncology - [facility] [address] [facility] [address] [place] [address] Delvis Cheek MD 125 [facility] 660 [place] [address] 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 documented as of this encounter Visit Diagnoses Not on filedocumented in this encounter Care Teams Car Cooper Relationship Specialty Start Date End Date Cheo Santoyo DO [address] [place] [phone] PCP - General Family Medicine 07/06/23 documented as of this encounter
--- OUTSIDE RECORDS SUMMARY | 2024-01-13 21:20 | XMS_ITS | Encounter Summary ---
Author Organization Jose Alejandro Raymundolinnea [facility] Address [address] [place] [address] Care Team Providers Care Graduate Civil Engineer Name Role Phone Unavailable Primary Care Provider Unavailabl e Encounter Details Date Type Department Care Team (Late st Contact Info) Description 12/22/2019 5:48 PM EDT - 12/22/2019 11:59 PM EDT Hospital Encounter [facility] HISTORICAL CONVERSIONS [address] [place], [place] [phone] Tammy Rodriguez PA Social History Tobacco Use [...] Dr. [address] [place] [address] Martell Calderon MD [address] [place] [address] TREMORS/ MEDICARE, FOR LIFE 03/28/2024 8:30 AM EDT Office Visit Primary Care - [address] [phone] Cheo Santoyo, [address] [place] [address] AWV 04/06/2024 9:45 AM EST Lab [place] [facility] - [facility] 20[address] [facility] [address] [place] [address] CBCMP,CEA,FEST 04/06/2024 10:15 AM EST Office Visit [place] [facility] - [facility] 20[address] [facility] [address] [place] [address] Georgi Butterfield MD 3510 [facility] [address] [place], [place] [phone] 6 MTH FU W/LABS, REV SCAN 04/13/2024 9:30 AM EST Office Visit Surgical Oncology - [facility] 20[address] [facility] [address] [place] [address] Delvis Cheek MD 125 [facility] 660 [place] [address] 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 Mild bilateral neural foraminal narrowing. IMPRESSION: [...] likely causes mass effect on the left F4dcssg root. 4. Overall, appearance of the lumbar spine is unchanged compared toSeptember 2019. Final Releasing Radiologist: CRISTAL MOELLER Released Date and Time: 12/23/19 15:30 Tammy LUNA MRI ORDERABLES documented in this encounter Visit Diagnoses Not on filedocumented in this encounter
--- OUTSIDE RECORDS SUMMARY | 2024-01-13 21:20 | XMS_ITS | Encounter Summary ---
Author Organization Jose Alejandro [facility] Address [address] [place] [address] Care Team Providers Care Personnel Security Specialist Name Role Phone Unavailable Primary Care Provider Unavailabl e Encounter Details Date Type Department Care Team (Late st Contact Info) Description 03/13/2014 8:45 AM EDT - 03/13/2014 11:59 PM EDT Hospital Encounter [facility] HISTORICAL CONVERSIONS [address] [place], [place] [address] Stephen Fraser MD [address] [place], [place] [address] Social History Tobacco Use Types Packs/Day Years [...] Dr. [address] [place] [address] Martell Calderon MD [address] [place] [address] TREMORS/ MEDICARE, FOR LIFE 03/28/2024 8:30 AM EDT Office Visit Primary Care - [facility] 1112 [place] [address] Cheo Santoyo, 1112 [place] [address] AWV 04/06/2024 9:45 AM EST Lab [place] [facility] - [facility] [address] [facility] [address] [place] [address] CBCMP,CEA,FEST 04/06/2024 10:15 AM EST Office Visit [place] [facility] - [facility] [address] [facility] [address] [place] [address] Georgi Butterfield MD 3510 [facility] [address] [place] [address] 6 MTH FU W/LABS, REV SCAN 04/13/2024 9:30 AM EST Office Visit Surgical Oncology - [facility] [address] [facility] [address] [place] [address] Delvis Cheek MD 125 [facility] 660 [place] [address] 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 documented as of this encounter Visit Diagnoses Not on filedocumented in this encounter
--- OUTSIDE RECORDS SUMMARY | 2024-01-13 21:20 | XMS_ITS | Encounter Summary ---
Author Organization Jose Alejandro Pantoja [facility] Address [address] [place] [address] Care Team Providers Care Product Advisor Name Role Phone Cheo Santoyo Moshe REYES Primary Care Provider [phone] Encounter Details Date Type Department Care Team (Late st Contact Info) Description 02/21/2019 Legacy Historical Encounter [facility] HISTORICAL CONVERSIONS [address] [place], [place] [phone] More Morales PA 300 [facility] 200 [place] [address] Social History Tobacco Use Types Packs/Day Years [...] Neurology - [facility] [address] [facility] [address] [place] [address] Martell Calderon MD 2144 [facility] [address] [place] [address] TREMORS/ MEDICARE, FOR LIFE 03/28/2024 8:30 AM EDT Office Visit Primary Care - [address] [address] Cheo Santoyo DO [address] [place] [address] AWV 04/06/2024 9:45 AM EST Lab [place] [facility] - [facility] 20[address] [facility] [address] [place] [address] CBCMP,CEA,FEST 04/06/2024 10:15 AM EST Office Visit [place] [facility] - [facility] 2084 [facility] [address] [place] [address] Georgi Butterfield MD [address] [place] [address] 6 MTH FU W/LABS, REV SCAN 04/13/2024 9:30 AM EST Office Visit Surgical Oncology - [facility] [address] [facility] [address] [place] [address] Delvsi Cheek MD 125 [facility] [address] [place] [address] 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 documented as of this encounter Visit Diagnoses Not on filedocumented in this encounter Care Teams Product Advisor Relationship Specialty Start Date End Date Cheo Santoyo DO [address] [place] [phone] PCP - General Family Medicine 07/06/23 documented as of this encounter
--- OUTSIDE RECORDS SUMMARY | 2024-01-13 21:20 | XMS_ITS | Encounter Summary ---
Author Organization [facility] Address [address] [place] [address] Care Team Providers Care Marine Steamfitter Name Role Phone Unavailable Primary Care Provider Unavailabl e Encounter Details Date Type Department Care Team (Late st Contact Info) Description 12/13/2020 Lab Requisition [facility] Pathology & Laboratory Medicine - [facility] [address] [place] [address] Outr Resulting Lab, Provider Social History Tobacco [...] <2.0 See Note ng/mL 12/16/2020 9:31 EDT [facility] Comment: % Distribution of [...] CHEMISTRY & BLOOD GAS ORDERABLES [facility] [address] [place] [address] documented in this encounter Visit Diagnoses Not on filedocumented in this encounter
--- OUTSIDE RECORDS SUMMARY | 2024-01-13 21:20 | XMS_ITS | Encounter Summary ---
Author Organization [facility] Address [address] [place] [address] Care Team Providers Care Lye Boiler Name Role Phone Unavailable Primary Care Provider Unavailabl e Encounter Details Date Type Department Care Team (Late st Contact Info) Description 03/07/2021 Lab Requisition [facility] Pathology & Laboratory Medicine - [facility] [address] [place] [address] Outr Resulting Lab, Provider Social History Tobacco [...] 2.1 See Note ng/mL 03/07/2021 22:18 EDT [facility] Comment: % Distribution of [...] Resulting Lab CHEMISTRY & BLOOD GAS ORDERABLES [facility] [address] [place] [address] documented in this encounter Visit Diagnoses Not on filedocumented in this encounter
--- OUTSIDE RECORDS SUMMARY | 2024-01-13 21:20 | XMS_ITS | Encounter Summary ---
Author Organization [facility] Address [address] [place] [address] Care Team Providers Care Store Stock Associate Name Role Phone Unavailable Primary Care Provider Unavailabl e Encounter Details Date Type Department Care Team (Late st Contact Info) Description 02/14/2021 Lab Requisition [facility] Pathology & Laboratory Medicine - [facility] [address] [place] [address] Outr Resulting Lab, Provider Social History Tobacco [...] 2.2 See Note ng/mL 02/14/2021 17:51 EDT [facility] Comment: % Distribution of [...] Lab CHEMISTRY & BLOOD GAS ORDERABLES [facility] [address] [place] [address] documented in this encounter Visit Diagnoses Not on filedocumented in this encounter
--- OUTSIDE RECORDS SUMMARY | 2024-01-13 21:20 | XMS_ITS | Encounter Summary ---
Author Organization Jose Alejandro [facility] Address [address] [place] [address] Care Team Providers Care Auto Parker Name Role Phone Unavailable Primary Care Provider Unavailabl e Encounter Details Date Type Department Care Team (Late st Contact Info) Description 04/24/2015 10:06 AM EST - 04/24/2015 11:59 PM EST Hospital Encounter [facility] HISTORICAL CONVERSIONS [address] [place] [address] Dave Lynne Jr., MD [address] [place] [address] Social History Tobacco Use Types Packs/Day Years [...] Dr. [address] [place] [address] Martell Calderon MD [address] [place] [address] TREMORS/ MEDICARE, FOR LIFE 03/28/2024 8:30 AM EDT Office Visit Primary Care - [facility] 1112 [place] [address] Cheo Santoyo, DO [address] [place] [address] AWV 04/06/2024 9:45 AM EST Lab [place] [facility] - [facility] 20[address] [facility] [address] [place] [address] CBCMP,CEA,FEST 04/06/2024 10:15 AM EST Office Visit [place] [facility] - [facility] [address] [facility] [address] [place] [address] Georgi Butterfield MD 3510 [facility] [address] [place] [address] 6 MTH FU W/LABS, REV SCAN 04/13/2024 9:30 AM EST Office Visit Surgical Oncology - [facility] [address] [facility] [address] [place] [address] Delvis Cheek MD 125 [facility] 660 [place] [address] 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 documented as of this encounter Visit Diagnoses Not on filedocumented in this encounter
--- OUTSIDE RECORDS SUMMARY | 2024-01-13 21:20 | XMS_ITS | Encounter Summary ---
Author Organization [facility] Address [address] [place] [address] Care Team Providers Care Health Informatics Instructor Name Role Phone Unavailable Primary Care Provider Unavailabl e Encounter Details Date Type Department Care Team (Late st Contact Info) Description 01/02/2021 Lab Requisition [facility] Pathology & Laboratory Medicine - [facility] [address] [place], [place] [address] Outr Resulting Lab, Provider Social History Tobacco [...] <2.0 See Note ng/mL 01/02/2021 17:20 EDT [facility] Comment: % Distribution of [...] Resulting Lab CHEMISTRY & BLOOD GAS ORDERABLES [facility] [address] [place] [address] documented in this encounter Visit Diagnoses Not on filedocumented in this encounter
--- OUTSIDE RECORDS SUMMARY | 2024-01-13 21:20 | XMS_ITS | Encounter Summary ---
Author Organization Jose Alejandro Pantoja [facility] Address [address] [place] [address] Care Team Providers Care Ambulance Driver Paramedic Name Role Phone YarelisCheo friend Moshe REYES Primary Care Provider [phone] Encounter Details Date Type Department Care Team [...] Neurology - [facility] [address] [facility] [address] [place] [address] Martell Calderon MD 2144 [facility] [address] [place] [address] TREMORS/ MEDICARE, FOR LIFE 03/28/2024 8:30 AM EDT Office Visit Primary Care - [address] [phone] Cheo Santoyo, [address] [address] AWV 04/06/2024 9:45 AM EST Lab [place] [facility] - [facility] [address] [facility] [address] [place] [address] CBCMP,CEA,FEST 04/06/2024 10:15 AM EST Office Visit [place] [facility] - [facility] [address] [facility] [address] [place] [address] Georgi Butterfield MD [address] [place] [address] 6 MTH FU W/LABS, REV SCAN 04/13/2024 9:30 AM EST Office Visit Surgical Oncology - [facility] [address] [facility] [address] [place] [address] Delvis Cheek MD 125 [facility] 660 [place] [address] 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 documented as of this encounter Visit Diagnoses Not on filedocumented in this encounter Care Teams Ambulance Driver Paramedic Relationship Specialty Start Date End Date Cheo Santoyo DO [address] [place] [phone] PCP - General Family Medicine 07/06/23 documented as of this encounter
--- OUTSIDE RECORDS SUMMARY | 2024-01-13 21:20 | XMS_ITS | Encounter Summary ---
Author Organization [facility] Address [address] [place] [address] Care Team Providers Care Sliver Lap Machine Tender Name Role Phone Cheo Santoyo Primary Care Provider [phone] Encounter Details Date Type Department Care Team (Late st Contact Info) Description 11/06/2019 Legacy Historical Encounter RS HISTORICAL CONVERSIONS [address] [place], [place] [id number] Tammy Rodriguez PA Social History Tobacco Use [...] [facility], [place] [address] [facility] [address] [place] [address] Martell Calderon MD 2[address] [facility] [address] [place], [place] [address] TREMORS/ MEDICARE, FOR LIFE 03/28/2024 8:30 AM EDT Office Visit Primary Care - [address] [address] Cheo Santoyo, [address] [place] [address] AWV 04/06/2024 9:45 AM EST Lab [facility] - [facility], [place] [address] [facility] [address] [place] [address] CBCMP,CEA,FEST 04/06/2024 10:15 AM EST Office Visit [facility] - [facility], [place] [address] [facility] [address] [place] [address] Georgi Butterfield MD [address] [place] [address] 6 MTH FU W/LABS, REV SCAN 04/13/2024 9:30 AM EST Office Visit Surgical Oncology - [facility], [place] [address] [facility] [address] [place] [address] Delvis Cheek MD 125 [facility] 660 [place] [address] 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 documented as of this encounter Visit Diagnoses Not on filedocumented in this encounter Care Teams Sliver Lap Machine Tender Relationship Specialty Start Date End Date Cheo Santoyo DO [address] [place] [address] PCP - General Family Medicine 07/06/23 documented as of this encounter
--- OUTSIDE RECORDS SUMMARY | 2024-01-13 21:20 | XMS_ITS | Encounter Summary ---
Author Organization Jose Alejandro Kit [facility] Address [address] [place] [address] Care Team Providers Care Waste Reclaimer Name Role Phone Unavailable Primary Care Provider Unavailabl e Encounter Details Date Type Department Care Team (Late st Contact Info) Description 10/20/2019 3:17 PM EDT - 10/20/2019 4:47 PM EDT Hospital Encounter RS HISTORICAL CONVERSIONS [address] [place] [address] Solange Guthrie MD [address] [address] Social History Tobacco Use Types Packs/Day Years Used Date Smoking Tobacco: Never Assessed Sex and Gender Information Value Date Recorded Sex Assigned at Not on file Gender Identity Not on file Sexual Orientation Not on file documented as of this encounter Discharge Summaries * Historical Provider, [facility] - 10/20/2019 3:09 PM EDT Inpatient [place] [facility] [address] [place], [place] [address] Patient Discharge Instructions Name: TESS COLEMAN Current Date: 10/20/2019 15:09:02 : 1955 FIN: [id number] Patient Address: [address] [facility] [address] Patient Primary Care Provider: Name: BETTY MARINO [...] (given by mouth) every day. Last Dose: [facility] would like to thank you for allowing us to assist you with your healthcare needs. The following includes patient education materials and information regarding your injury/illness. TESS COLEMAN has been given the following list of follow-up instructions, prescriptions, and patient education materials: Follow-up Instructions: With: Address: When: SOLANGE LORD [address] [place] [address] Three Melons (1) , only if needed With: Address: When: BETTY MARINO Type Location Start [facility] Pain Management SF Pain Management 3:30 [...] toes connected by a vertical line. ?? [phone] [employer]. [address] [place] [address], [place] [address]. All rights reserved. This information is not [...] or swelling around the injection site ?? [phone] [employer]. [address] [place] [address], [place] [address]. All rights reserved. This information is not [...] signs, call to get immediate medical attention! [facility] allows you to manage your health, view your test results, and retrieve your discharge documents from your hospital stay securely and conveniently from your computer. To begin the enrollment process, visit [email or web address]. Click on ???Sign up now?? under [facility]. Electronically signed by Kian [facility] Incoming Notes - Cerner - Conversion at 03/30/2022 2:08 PM EDT * Historical Provider, [facility] - 10/20/2019 3:09 PM EDT Inpatient Clinical Summary [facility] [place] Care Transfer Instructions PERSON INFORMATION Name: TESS COLEMAN FIN#: [id number] PHYSICIANS Admitting Physician: SOLANGE LORD Attending Physician: SOLANGE LORD PCP: JAMILA, BETTY Guerrero Discharge Diagnosis: Comment: PATIENT EDUCATION INFORMATION Instructions: Caring for Your Back Throughout the Day; Lumbar Epidural Injection: Recovery at Home Medication Leaflets: Follow-up: With: Address: When: SOLANGE LORD [address], [address] [place] [address] Business (1) , only if needed With: Address: When: BETTY MARINO Type Location Start Finish [facility] Pain Management Pain Management 3:30 PM 3:45 [...] Dr. [address] [place] [address] Martell Calderon MD 214 [facility] [address] [place] [address] TREMORS/ MEDICARE, FOR LIFE 03/28/2024 8:30 AM EDT Office Visit Primary Care - [address] [phone] Cheo Santoyo DO [address] [place] [address] AWV 04/06/2024 9:45 AM EST Lab [facility] - [facility] [address] [facility] [address] [place] [address] CBCMP,CEA,FEST 04/06/2024 10:15 AM EST Office Visit [facility] - [facility] [address] [facility] [address] [place] [address] Georgi Butterfield MD [address] [place] [address] 6 MTH FU W/LABS, REV SCAN 04/13/2024 9:30 AM EST Office Visit Surgical Oncology - 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 [address] [place] [phone] Karly Bautista, BURT [address] [place] [address] annual visit from date of surgery May/Jul 2024 for bilateral TKA and right LIZZ with Karly. documented as of this encounter Visit Diagnoses Not on filedocumented in this encounter
--- OUTSIDE RECORDS SUMMARY | 2024-01-13 21:20 | XMS_ITS | Encounter Summary ---
Author Organization Jose Alejandro Kit [facility] Address [address] [place] [address] Care Team Providers Care Branch Or Department Chief Librarian Name Role Phone Unavailable Primary Care Provider Unavailabl e Encounter Details Date Type Department Care Team (Late st Contact Info) Description 05/20/2015 12:01 AM EST - 05/20/2015 11:59 PM EST Hospital Encounter [facility] HISTORICAL CONVERSIONS [address] [place] [address] Dave Lynne Jr., MD [address] [place] [address] Social History Tobacco Use Types Packs/Day Years [...] Dr. [address] [place] [address] Martell Calderon MD [address] [place] [address] TREMORS/ MEDICARE, FOR LIFE 03/28/2024 8:30 AM EDT Office Visit Primary Care - [facility] 1112 [place] [address] Cheo Santoyo, DO 1112 [place] [address] AWV 04/06/2024 9:45 AM EST Lab [facility] - [facility] [address] [facility] [address] [place] [address] CBCMP,CEA,FEST 04/06/2024 10:15 AM EST Office Visit [facility] - [facility] [address] [facility] [address] [place] [address] Georgi Butterfield MD 3510 [facility] [address] [place] [address] 6 MTH FU W/LABS, REV SCAN 04/13/2024 9:30 AM EST Office Visit Surgical Oncology - [facility] [address] [facility] [address] [place] [address] Delvis Cheek MD 125 [facility] 660 [place] [address] 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 documented as of this encounter Visit Diagnoses Not on filedocumented in this encounter
--- OUTSIDE RECORDS SUMMARY | 2024-01-13 21:20 | XMS_ITS | Encounter Summary ---
Author Organization Jose Alejandro Pantoja [facility] Address [address] [place] [address] Care Team Providers Care Burlap Roll Coverer Name Role Phone Cheo Santoyo Moshe REYES Primary Care Provider [phone] Encounter Details Date Type Department Care Team (Late st Contact Info) Description 03/29/2019 [facility] Historical Encounter [facility] HISTORICAL CONVERSIONS [address] [place], [place] [id number] More Morales PA 300 [facility] 200 [place] [address] Social History Tobacco Use Types Packs/Day Years [...] Neurology - [facility] [address] [facility] [address] [place] [address] Martell Calderon MD 2144 [facility] [address] [place] [address] TREMORS/ MEDICARE, FOR LIFE 03/28/2024 8:30 AM EDT Office Visit Primary Care - [address] [address] Cheo Santoyo DO [address] [place] [address] AWV 04/06/2024 9:45 AM EST Lab [facility] - [facility] [address] [facility] [address] [place] [address] CBCMP,CEA,FEST 04/06/2024 10:15 AM EST Office Visit [facility] - [facility] [address] [facility] [address] [place] [address] Georgi Butterfield MD [address] [place] [address] 6 MTH FU W/LABS, REV SCAN 04/13/2024 9:30 AM EST Office Visit Surgical Oncology - [facility] [address] [facility] [address] [place] [address] Delvis Cheek MD 125 [facility] [address] [place] [address] 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 documented as of this encounter Visit Diagnoses Not on filedocumented in this encounter Care Teams Burlap Roll Coverer Relationship Specialty Start Date End Date Cheo Santoyo DO [address] [place] [phone] PCP - General Family Medicine 07/06/23 documented as of this encounter
--- OUTSIDE RECORDS SUMMARY | 2024-01-13 21:20 | XMS_ITS | Encounter Summary ---
Author Organization [facility] Address [address] [place] [address] Care Team Providers Care Edge Gluer Name Role Phone Unavailable Primary Care Provider Unavailabl e Encounter Details Date Type Department Care Team (Late st Contact Info) Description 01/11/2024 Lab Requisition [facility] Pathology & Laboratory Medicine - [facility] [address] [place], [place] [id number] Outr Resulting Lab, Provider Social History Tobacco [...] Salmonella PCR Negative Negative 01/12/2024 11:17 EDT [facility] Shigella/Enteroin vasive E. coli Negative Negative 01/12/2024 11:17 EDT [facility] HN LAB CAMPYLOBACTER PCR Negative Negative 01/12/2024 11:17 EDT [facility] Shiga Toxin PCR Negative Negative 11:17 EDT [facility] Feces SPECIMEN FROM RECTUM / Unknown 01/11/2024 5:30 EDT 01/11/2024 22:27 EDT Provider Outr Resulting Lab MICROBIOLOGY - GENERAL ORDERABLES [facility] [address] [place] [address] documented in this encounter Visit Diagnoses Not on filedocumented in this encounter
--- OUTSIDE RECORDS SUMMARY | 2024-01-13 21:20 | XMS_ITS | Encounter Summary ---
Author Organization Jose Alejandro Raymundolinnea [facility] Address [address] [place] [address] Care Team Providers Care Key Carrier Name Role Phone Unavailable Primary Care Provider Unavailabl e Encounter Details Date Type Department Care Team (Late st Contact Info) Description 07/18/2013 2:18 PM EST - 07/18/2013 3:19 PM EST Hospital Encounter [facility] HISTORICAL CONVERSIONS [address] [place] [address] Edvin Pereyra MD [facility]6 [place] [address] Social History Tobacco Use Types Packs/Day Years [...] Dr. [address] [place] [address] Martell Calderon MD [address] [place] [address] TREMORS/ MEDICARE, FOR LIFE 03/28/2024 8:30 AM EDT Office Visit Primary Care - [address] [address] Cheo Santoyo, DO 1112 [place] [address] AWV 04/06/2024 9:45 AM EST Lab [facility] - [facility] [address] [facility] [address] [place] [address] CBCMP,CEA,FEST 04/06/2024 10:15 AM EST Office Visit [facility] - [facility] [address] [facility] [address] [place] [address] Georgi Butterfield MD [address] [place], [place] [address] 6 MTH FU W/LABS, REV SCAN 04/13/2024 9:30 AM EST Office Visit Surgical Oncology - [facility] [address] 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 documented as of this encounter Visit Diagnoses Not on filedocumented in this encounter
--- OUTSIDE RECORDS SUMMARY | 2024-01-13 21:20 | XMS_ITS | Encounter Summary ---
Author Organization Jose [facility] Address [address] [place] [address] Care Team Providers Care Print Shop Chief Clerk Name Role Phone Cheo Santoyo Primary Care Provider [phone] Encounter Details Date Type Department Care Team (Late st Contact Info) Description 01/22/2020 Legacy Historical Encounter [facility] HISTORICAL CONVERSIONS [address] [place], [place] [phone] Tammy Rodriguez PA Social History Tobacco Use [...] Visit Neurology - [facility] [address] [facility] [address] [place] [address] Martell Calderon MD 2144 [facility] [address] [place], [place] [address] TREMORS/ MEDICARE, FOR LIFE 03/28/2024 8:30 AM EDT Office Visit Primary Care - [address] [address] Cheo Santoyo, [address] [place] [address] AWV 04/06/2024 9:45 AM EST Lab [facility] - [facility] [address] [facility] [address] [place] [address] CBCMP,CEA,FEST 04/06/2024 10:15 AM EST Office Visit [facility] - [facility] [address] [facility] [address] [place] [address] Georgi Butterfield MD [address] [place] [address] 6 MTH FU W/LABS, REV SCAN 04/13/2024 9:30 AM EST Office Visit Surgical Oncology - [facility] [address] [place] [address] Delvis Cheek MD 125 [facility] 660 [place] [address] 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 [address] [place] [address] Karly Bautista PA 180 [facility] 301 [place] [address] annual visit from date of surgery May/Jul 2024 for bilateral TKA and right LIZZ with Karly. documented as of this encounter Visit Diagnoses Not on filedocumented in this encounter Care Teams Print Shop Chief Clerk Relationship Specialty Start Date End Date Cheo Santoyo DO [address] [place] [phone] PCP - General Family Medicine 07/06/23 documented as of this encounter
--- OUTSIDE RECORDS SUMMARY | 2024-01-13 21:20 | XMS_ITS | Continuity of Care Document ---
Author Organization [employer] [facility] Address [address] [place] [address] Phone Care Team Providers Care Chaser Apprentice Name Role Phone Olesya ESCOTO, Judi Unavailable [...] Diagnoses Date Provider Providers Copied on Encounter [facility], [address], [place], [address], tel:[phone] [place] No Information 2 Olesya Lau. [address], [place], [place], [id number], [place]. tel:[phone] OFFICE/OUTPAT IENT VISIT, EST [facility], [address], [place], [address], tel:[phone] [place] go over lab and x-rays (chief complaint) Effusion, right kneeCoughRai sed antibody titer Dec-0 3-201 5 [place] David. [address], [place], [address], [place]. tel:[phone] , [address], [place], [place].Referring Provider: France Liu, [address] [place], [address]. tel:[phone] OFFICE CONSULTATION [facility], [address], [place], [address], [place] tel:[phone] [place] + HOLLIS (chief complaint) Other cervical disc degeneration , cervicothora cic regionPain in right shoulderCoug hRaised antibody titerPrimary OA of right kneeEffusion , right knee Nov-0 5-201 5 [place] David. [address], [facility] [place], [address], [place]. tel:[phone] Specialist: Dave Lynne, [address], [place], [place]. tel:[phone] ng Provider: France Liu, [address] [place], [address]. tel:[phone] Family History Family Member Type Diagnosis Age At Onset Mother Problem (finding) Systemic lupus erythema tosus Payers Payer name Insurance type Covered alliance party ID Authoriza tion(s) No Information Social History [...]
--- OUTSIDE RECORDS SUMMARY | 2024-01-13 21:20 | XMS_ITS | Encounter Summary ---
Author Organization Jose Alejandro [facility] Address [address] [place] [address] Care Team Providers Care Hard Metals Hand Engraver Name Role Phone Unavailable Primary Care Provider Unavailabl e Encounter Details Date Type Department Care Team (Late st Contact Info) Description 06/13/2020 4:20 PM EST - 06/13/2020 11:59 PM EST Hospital Encounter RS HISTORICAL CONVERSIONS 316 [place] [address] Delvis Cheek MD [address] [address] Social History Tobacco Use Types [...] Dr. [address] [place] [address] Martell Calderon MD 2144 [facility] [address] [place] [address] TREMORS/ MEDICARE, FOR LIFE 03/28/2024 8:30 AM EDT Office Visit Primary Care - [address] [address] Cheo Santoyo DO 1112 [place] [address] AWV 04/06/2024 9:45 AM EST Lab [facility] - [facility] [place] [address] [facility] [address] [place] [address] CBCMP,CEA,FEST 04/06/2024 10:15 AM EST Office Visit [facility] - [facility] [place] [address] [facility] [address] [place] [address] Georgi Butterfield MD [address] [place] [address] 6 MTH FU W/LABS, REV SCAN 04/13/2024 9:30 AM EST Office Visit Surgical Oncology - [facility] [place] [address] [facility] [address] [place] [address] Delvis Cheek MD 125 [facility]Note 2] [address] [place] [address] 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/State/ZIP Co de Phone Number [facility] * CEA (06/13/2020 4:31 PM EST) [...]
--- OUTSIDE RECORDS SUMMARY | 2024-01-13 21:20 | XMS_ITS | Encounter Summary ---
Author Organization [facility] Address [address] [place] [address] Care Team Providers Care Fax Machine Operator Name Role Phone Cheo Santoyo Primary Care Provider [phone] Encounter Details Date Type Department Care Team (Late st Contact Info) Description 10/18/2019 Legacy Historical Encounter [facility] HISTORICAL CONVERSIONS [address] [place], [place] [id number] Tammy oRdriguez PA Social History Tobacco Use Types Packs/Day [...] Neurology - [facility] [address] [facility] [address] [place] [address] Martell Calderon MD 2144 [facility] [address] [place], [place] [phone] TREMORS/ MEDICARE, FOR LIFE 03/28/2024 8:30 AM EDT Office Visit Primary Care - [address] [address] Cheo Santoyo, [address] [place] [address] AWV 04/06/2024 9:45 AM EST Lab [facility] - [facility] [address] [facility] [address] [place] [address] CBCMP,CEA,FEST 04/06/2024 10:15 AM EST Office Visit [place] [facility] - [facility] [address] [facility] [address] [place] [address] Georgi Butterfield MD [address] [place] [address] 6 MTH FU W/LABS, REV SCAN 04/13/2024 9:30 AM EST Office Visit Surgical Oncology - [facility] [address] [facility] [address] [place] [address] Delvis Cheek MD 125 [facility] 660 [place] [address] 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 301 [place] [address] annual visit from date of surgery May/Jul 2024 for bilateral TKA and right LIZZ with Karly. documented as of this encounter Visit Diagnoses Not on filedocumented in this encounter Care Teams Fax Machine Operator Relationship Specialty Start Date End Date Cheo Santoyo DO [address] [place] [phone] PCP - General Family Medicine 07/06/23 documented as of this encounter
--- OUTSIDE RECORDS SUMMARY | 2024-01-13 21:20 | XMS_ITS | Encounter Summary ---
Author Organization Jose Alejandro [facility] Address [address] [place] [address] Care Team Providers Care Circular Ripsaw Operator Name Role Phone Unavailable Primary Care Provider Unavailabl e Encounter Details Date Type Department Care Team (Late st Contact Info) Description 11/14/2019 8:43 AM EDT - 01/04/2020 11:59 PM EDT Hospital Encounter [facility] HISTORICAL CONVERSIONS [address] [place], [place] [phone] Tammy Rodriguez PA Social History Tobacco Use [...] Dr. [address] [place] [address] Martell Calderon MD [address] [place] [address] TREMORS/ MEDICARE, FOR LIFE 03/28/2024 8:30 AM EDT Office Visit Primary Care - [facility] [address] [place] [phone] Cheo Santoyo DO 1112 [place] [address] AWV 04/06/2024 9:45 AM EST Lab [place] [facility] - [facility] [address] [facility] [address] [place] [address] CBCMP,CEA,FEST 04/06/2024 10:15 AM EST Office Visit [place] [facility] - [facility] [address] [facility] [address] [place] [address] Georgi Butterfield MD [address] [place], [place] [phone] 6 MTH FU W/LABS, REV SCAN 04/13/2024 9:30 AM EST Office Visit Surgical Oncology - [facility] [address] [facility] [address] [place] [address] Delvis Cheek MD 125 [facility] 660 [place] [address] 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 documented as of this encounter Visit Diagnoses Not on filedocumented in this encounter
--- OUTSIDE RECORDS SUMMARY | 2024-01-13 21:20 | XMS_ITS | Encounter Summary ---
Author Organization Jose Alejandro Raymundolinnea [facility] Address [address] [place] [address] Care Team Providers Care Fiberglass Dowel Drawing Operator Name Role Phone Unavailable Primary Care Provider Unavailabl e Encounter Details Date Type Department Care Team (Late st Contact Info) Description 02/21/2019 4:04 PM EDT - 02/21/2019 11:59 PM EDT Hospital Encounter [facility] HISTORICAL CONVERSIONS [address] [place] [address] More Morales PA 300 [facility] [address] [place], [place] [phone] Social History Tobacco Use Types Packs/Day Years [...] Dr. [address] [place] [address] Martell Calderon MD 2145 [facility] [address] [place] [address] TREMORS/ MEDICARE, FOR LIFE 03/28/2024 8:30 AM EDT Office Visit Primary Care - [address] [phone] Cheo Santoyo, DO 1112 [place] [address] AWV 04/06/2024 9:45 AM EST Lab [place] [facility] - [facility] [address] [facility] [address] [place] [address] CBCMP,CEA,FEST 04/06/2024 10:15 AM EST Office Visit [place] [facility] - [facility] [address] [facility] [address] [place] [address] Georgi Butterfield MD 3510 [facility] [address] [place] [address] 6 MTH FU W/LABS, REV SCAN 04/13/2024 9:30 AM EST Office Visit Surgical Oncology - [facility] [address] [facility] [address] [place] [address] Delvis Cheek MD 125 [facility] 660 [place] [address] 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 L4-L5: Mild [...]
--- OUTSIDE RECORDS SUMMARY | 2024-01-13 21:20 | XMS_ITS | Encounter Summary ---
Author Organization [facility] Address [address] [place] [address] Care Team Providers Care Book Cleaner Name Role Phone Unavailable Primary Care Provider Unavailabl e Encounter Details Date Type Department Care Team (Late st Contact Info) Description 11/21/2020 Lab Requisition [facility] Pathology & Laboratory Medicine - [facility] [address] [place] [address] Outr Resulting Lab, Provider Social History Tobacco [...] 2.7 See Note ng/mL 11/21/2020 17:02 EDT [facility] Comment: % Distribution [...] Resulting Lab CHEMISTRY & BLOOD GAS ORDERABLES [facility] [address] [place] [address] documented in this encounter Visit Diagnoses Not on filedocumented in this encounter
--- OUTSIDE RECORDS SUMMARY | 2024-01-13 21:20 | XMS_ITS | Clinical Summary ---
Author Organization [facility] Address [address] [place] [address] Care Team Providers Care Software Asset Manager Name Role Phone Unavailable Primary Care Provider Unavailabl e Encounters Date Type Department Care Team Description 01/11/2024 Lab Requisition [facility] Pathology & Laboratory [address] [address] Outr Resulting Lab, Provider 01/11/2024 Lab Requisition [facility] Pathology & Laboratory [address] [address] Outr Resulting Lab, Provider from Last 3 [...] Salmonella PCR Negative Negative 01/12/2024 11:17 EDT [facility] Shigella/Enteroin vasive E. coli Negative Negative 01/12/2024 11:17 EDT [facility] HN LAB CAMPYLOBACTER PCR Negative Negative 01/12/2024 11:17 EDT [facility] Shiga Toxin PCR Negative Negative 11:17 EDT [facility] Feces SPECIMEN FROM RECTUM / Unknown 01/11/2024 5:30 EDT 01/11/2024 22:27 EDT Provider Outr Resulting Lab MICROBIOLOGY - GENERAL ORDERABLES [facility] [address] [place], [place] [id number] from Last 3 Months
--- OUTSIDE RECORDS SUMMARY | 2024-01-13 21:20 | XMS_ITS | Encounter Summary ---
Author Organization Jose Alejandro Raymundolinnea [facility] Address [address] [place] [address] Care Team Providers Care Summer Law Clerk Name Role Phone Unavailable Primary Care Provider Unavailabl e Encounter Details Date Type Department Care Team (Late st Contact Info) Description 02/21/2019 12:40 PM EDT - 02/21/2019 11:59 PM EDT Hospital Encounter [facility] HISTORICAL CONVERSIONS [address] [place] [address] More Morales PA 300 [facility] [address] [place], [place] [phone] Social History Tobacco Use Types Packs/Day Years [...] Dr. [address] [place] [address] Martell Calderon MD 2145 [facility] [address] [place] [address] TREMORS/ MEDICARE, FOR LIFE 03/28/2024 8:30 AM EDT Office Visit Primary Care - [address] [phone] Cheo Santoyo, DO 1112 [place] [address] AWV 04/06/2024 9:45 AM EST Lab [place] [facility] - [facility] [address] [facility] [address] [place] [address] CBCMP,CEA,FEST 04/06/2024 10:15 AM EST Office Visit [place] [facility] - [facility] [address] [facility] [address] [place] [address] Georgi Butterfield MD [address] [place] [address] 6 MTH FU W/LABS, REV SCAN 04/13/2024 9:30 AM EST Office Visit Surgical Oncology - [facility] [address] [facility] [address] [place] [address] Delvis Cheek MD 125 [facility] 660 [place] [address] 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 [address] [place] [address] Karly Bautista, BURT [address] [place] [address] annual visit from date of [...]
--- OUTSIDE RECORDS SUMMARY | 2024-01-13 21:20 | XMS_ITS | Referral Summary ---
Author Organization [facility] Address [address] [place] [address] Care Team Providers Care Spares Scheduler Name Role Phone Unavailable Primary Care Provider Unavailabl e Encounters Date Type Department Care Team Description 01/11/2024 Lab Requisition [facility] Pathology & Laboratory [address] [address] Outr Resulting Lab, Provider 01/11/2024 Lab Requisition [facility] Pathology & Laboratory [address] [address] Outr Resulting Lab, Provider from Last 3 [...] Salmonella PCR Negative Negative 01/12/2024 11:17 EDT [facility] Shigella/Enteroin vasive E. coli Negative Negative 01/12/2024 11:17 EDT [facility] HN LAB CAMPYLOBACTER PCR Negative Negative 01/12/2024 11:17 EDT [facility] Shiga Toxin PCR Negative Negative 11:17 EDT [facility] Feces SPECIMEN FROM RECTUM / Unknown 01/11/2024 5:30 EDT 01/11/2024 22:27 EDT Provider Outr Resulting Lab MICROBIOLOGY - GENERAL ORDERABLES [facility] [address] [place], [place] [id number] from Last 3 Months
--- OUTSIDE RECORDS SUMMARY | 2024-01-13 21:20 | XMS_ITS | Encounter Summary ---
Author Organization [facility] Address [address] [place] [address] Care Team Providers Care Clinical Project Assistant Name Role Phone Unavailable Primary Care Provider Unavailabl e Encounter Details Date Type Department Care Team (Late st Contact Info) Description 01/11/2024 Lab Requisition [facility] Pathology & Laboratory Medicine - [facility] [address] [place] [address] Outr Resulting Lab, Provider Social History Tobacco [...]
--- OUTSIDE RECORDS SUMMARY | 2024-01-13 21:20 | XMS_ITS | Encounter Summary ---
Author Organization Jose Alejandro [facility] Address [address] [place] [address] Care Team Providers Care Business Systems Developer Name Role Phone YarelisCheo friend Moshe REYES Primary Care Provider [phone] Encounter Details Date Type Department Care Team (Late st Contact Info) Description 02/21/2019 Legacy Historical Encounter [facility] HISTORICAL CONVERSIONS [address] [place] [address] Genaro Mora DO [address] [place] [address] Social History Tobacco Use Types Packs/Day Years [...] Visit Neurology - [facility] [address] [facility] [address] [place] [address] Martell Calderon MD 2144 [facility] [address] [place] [address] TREMORS/ MEDICARE, FOR LIFE 03/28/2024 8:30 AM EDT Office Visit Primary Care - [address] [address] Cheo Santoyo DO 1112 [place] [address] AWV 04/06/2024 9:45 AM EST Lab [place] [facility] - [facility] [address] [facility] [address] [place] [address] CBCMP,CEA,FEST 04/06/2024 10:15 AM EST Office [facility] [place] [facility] - [facility] [address] [facility] [address] [place] [address] Georgi Butterfield MD [address] [place] [address] 6 MTH FU W/LABS, REV SCAN 04/13/2024 9:30 AM EST Office Visit Surgical Oncology - [facility] [address] [facility] [address] [place] [address] Delvis Cheek MD 125 [facility]Note 2] [address] [place] [address] 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 documented as of this encounter Visit Diagnoses Not on filedocumented in this encounter Care Teams Business Systems Developer Relationship Specialty Start Date End Date Cheo Santoyo DO [address] [place] [phone] PCP - General Family Medicine 07/06/23 documented as of this encounter
--- OUTSIDE RECORDS SUMMARY | 2024-01-13 21:20 | XMS_ITS | Encounter Summary ---
Author Organization Jose Alejandro Pantoja [facility] Address [address] [place] [address] Care Team Providers Care Property Man Name Role Phone Carter Santoyoony Moshe REYES Primary Care Provider [phone] Encounter Details Date Type Department Care Team (Late st Contact Info) Description 06/13/2020 Legacy Historical [facility] AM[facility] HISTORICAL Georgi Butterfield MD [address] [place] [address] Social History Tobacco Use Types Packs/Day Years [...] AM EDT Office [facility] [address] [facility] [address] [place] [address] Martell Calderon MD 214 [facility] [address] [place] [address] TREMORS/ MEDICARE, FOR LIFE 03/28/2024 8:30 AM EDT Office Visit Primary Care - [address] [address] [place] [address] [place] [address] AWV 04/06/2024 9:45 AM EST Lab [place] [facility] 20[address] [facility] [address] [place] [address] CBCMP,CEA,FEST 04/06/2024 10:15 AM EST Office Visit [place] [facility] 20[address] [facility] [address] [place] [address] Georgi Butterfield MD [address] [place] [address] 6 MTH FU W/LABS, REV SCAN 04/13/2024 9:30 AM EST Office Visit Surgical Oncology - [facility] [address] [facility] [address] [place] [address] Delvis Cheek MD 125 [facility] 660 [place] [address] 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 documented as of this encounter Visit Diagnoses Not on filedocumented in this encounter Care Teams Property Man Relationship Specialty Start Date End Date Cheo Santoyo DO [address] [place] [phone] PCP - General Family Medicine 07/06/23 documented as of this encounter
--- OUTSIDE RECORDS SUMMARY | 2024-01-13 21:20 | XMS_ITS | Encounter Summary ---
Author Organization Jose Alejandro Pantoja [facility] Address [address] [place] [address] Care Team Providers Care Flooring Mechanic Name Role Phone Cheo Santoyo Primary Care Provider [phone] Encounter Details Date Type Department Care Team (Late st Contact Info) Description 06/13/2020 Legacy Historical Encounter [facility] HISTORICAL CONVERSIONS [address] [place] [address] Delvis Cheek MD [address] [address] Social History Tobacco Use Types [...] [facility], [place] [address] [facility] [address] [place] [address] Martell Calderon MD 214 [facility] [address] [place] [address] TREMORS/ MEDICARE, FOR LIFE 03/28/2024 8:30 AM EDT Office Visit Primary Care - [address] [address] [place] [address] [place] [address] AWV 04/06/2024 9:45 AM EST Lab [place] [facility] - [facility] [place] [address] [facility] [address] [place] [address] CBCMP,CEA,FEST 04/06/2024 10:15 AM EST Office Visit [place] [facility] - [facility] [place] 20[address] [facility] [address] [place] [address] Georgi Butterfield MD 3510 [facility] [address] [place] [address] 6 MTH FU W/LABS, REV SCAN 04/13/2024 9:30 AM EST Office Visit Surgical Oncology - [facility] [place] [address] [facility] [address] [place] [address] Delvis Cheek MD 125 [facility] 660 [place] [address] 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 documented as of this encounter Visit Diagnoses Not on filedocumented in this encounter Care Teams Flooring Mechanic Relationship Specialty Start Date End Date Cheo Santoyo DO [address] [place] [phone] PCP - General Family Medicine 07/06/23 documented as of this encounter
--- OUTSIDE RECORDS SUMMARY | 2024-01-13 21:20 | XMS_ITS | Encounter Summary ---
Author Organization Jose Alejandro [facility] Address [address] [place] [address] Care Team Providers Care Outbound Sales Professional Name Role Phone Unavailable Primary Care Provider Unavailabl e Encounter Details Date Type Department Care Team (Late st Contact Info) Description 03/08/2014 11:58 AM EDT - 03/08/2014 11:59 PM EDT Hospital Encounter [facility] HISTORICAL CONVERSIONS [address] [place] [address] Jonn Sanchez III, MD [address] [facility] [place] [address] Social History Tobacco Use Types Packs/Day Years [...] Dr. [address] [place] [address] Martell Calderon MD 2145 [facility] 220 [place], [place] [address] TREMORS/ MEDICARE, FOR LIFE 03/28/2024 8:30 AM EDT Office Visit Primary Care - [facility] 1112 [place] [address] Cheo Santoyo, DO 1112 [place] [address] AWV 04/06/2024 9:45 AM EST Lab [place] [facility] - [facility] 20[address] [facility] [address] [place] [address] CBCMP,CEA,FEST 04/06/2024 10:15 AM EST Office Visit [place] [facility] - [facility] 20[address] [facility] [address] [place] [address] Georgi Butterfield MD [address] [place] [address] 6 MTH FU W/LABS, REV SCAN 04/13/2024 9:30 AM EST Office Visit Surgical Oncology - [facility] 20[address] [facility] [address] [place] [address] Delvis Cheek MD 125 [facility] 660 [place] [address] 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 [address] [place] [phone] Karly Bautista PA [address] [place] [address] annual visit from date of surgery May/Jul 2024 for bilateral TKA and right LIZZ with Karly. documented as of this encounter Visit Diagnoses Not on filedocumented in this encounter
--- OUTSIDE RECORDS SUMMARY | 2024-01-13 21:20 | XMS_ITS | Encounter Summary ---
Author Organization [facility] Address [address] [place] [address] Care Team Providers Care Rapid Outsole Stitcher Name Role Phone Carter Santoyoony Moshe REYES Primary Care Provider Encounter Details Date Type Department Care Team (Late st Contact Info) Description 06/14/2020 Legacy Historical Encounter [facility] AMB HISTORICAL Georgi Butterfield MD [address] [place] [address] Social History Tobacco Use Types Packs/Day Years [...] 9:00 AM EDT [facility] [address] [address] [address] [address] [place] [address] Martell Calderon MD [address] [facility] [place] [address] [place] [address] TREMORS/ MEDICARE, FOR LIFE 03/28/2024 8:30 AM EDT Office Visit Primary Care - [address] [phone] [place] [address] [place] [phone] AWV 04/06/2024 9:45 AM EST [facility] [address] [facility] [address] [place] [address] CBCMP,CEA,FEST 04/06/2024 10:15 AM EST Office [facility] [address] [facility] [address] [place] [address] Georgi Butterfield MD [address] [place] [address] 6 MTH FU W/LABS, REV SCAN 04/13/2024 9:30 AM EST Office Visit Surgical Oncology - [facility] [address] [place] [address] Delvis Cheek MD [address] [facility] [address] [place] [address] 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 [address] [place] [address] Karly Bautista, BURT [address] [facility] [address] [place] [address] annual visit from date of surgery May/Jul 2024 for bilateral TKA and right LIZZ with Karly. documented as of this encounter Visit Diagnoses Not on filedocumented in this encounter Care Teams Rapid Outsole Stitcher Relationship Specialty Start Date End Date Cheo Santoyo DO [address] [place] [id number] PCP - General Family Medicine 07/06/23 documented as of this encounter
== END 2024-01-13 20:58 | disposition home or self-care (01) ==
LOC: LBN 20:57
PROVIDERS: PCP Nurse Practitioner Family
DX: Z47.1 Aftercare following joint replacement surgery (principal); Z96.641 Presence of right artificial hip joint; M25.551 Pain in right hip
CPT/HCPCS: 85652; 86140